=== PATIENT | female | born 1940 | race Hispanic/Latino ===

== ENCOUNTER 2016-06-08 15:38 | Inpatient (IN) | payer MEDICARE, MEDICAID ==
[~2016-06-08] VITALS: Ht 165.1 cm; Wt 127.0 kg
[~2016-06-08 15:38] MED LIST: ACETAMINOPHEN120 MG RECTAL; ACTOS30 MG PO; ALBUTEROL2.5 MG/3 M INH; ALPRAZOLAM0.5 M1 PO; ALUM-MAG HYDRO360 ML PO; AMBIEN5 MG ORAL; ASPIR 8181 MG ORAL; ATORVASTATIN CA20 MG ORAL; BENADRYL25 MG ORAL; CIPROFLOXACIN500 M2 ORAL; CLARITIN10 M2 GT; CLARITIN10 M2 PO; CLOPIDOGREL75 MG PO; CLOTRIMAZOLE AF30 GM TOPIC; CRANBERRY450 M4 PO; D5W 50ML50 M1 IV; D5W 50ML50 ML IV; DEMADEX10 MG INJ; DIPHENHYDRAMINE25 M1 ORAL; DOCUSATE SODIU100 MG ORAL; FERROUS GLUCON324 M1 PO; FERROUS SULFAT325 M1 PO; FLAGYL500 MG ORAL; FLUCONAZOL IV; FLUCONAZOLE100 MG ORAL; FUROSEMIDE20 M1 PO; GABAPENTIN300 MG ORAL; GABAPENTIN300 MG PO; GEMFIBROZIL600 MG PO; GERI-TUSSI100 MG/5 M PO; HEPARIN1000 UNIT/ INJ; HUMALOG KW200 UNIT/1 SQ; HUMALOG100 UNIT/3 SUBQ; HUMALOG100 UNIT/4 SUBQ; IMITREX6 MG/0.5 M SQ; INVANZ1 GM IVPB; IPRAT-ALBUT 0.5-3 ML IH; LACTULOSE20 GM/301 GT; LACTULOSE20 GM/301 ORAL; LACTULOSE20 GM/301 RECTAL; LANTISEPTIC400 GM TOPIC; LANTUS SOL100 UNIT/1 SUBQ; LANTUS5 UNITS SUBQ; LEVEMIR FL100 UNIT/1 SUBQ; LEVEMIR100 UNIT/1 SUBQ; LIORESAL10 MG PO; LIPID EMULSION IV; LIPITOR80 MG PO; LORATADINE10 MG PO; LORAZEPAM1 MG GT; LOSARTAN POTASS25 MG ORAL; MAGNEBIND 4001 EACH PO; MEROPENEM1 GM IVPB; METFORMIN HCL1000 MG PO; METOCLOPRAMIDE10 M2 GT; METOPROLOL TART25 MG ORAL; MIDODRINE HCL2.5 MG ORAL; NAMENDA5 MG GT; NITROFURANTOIN100 M2 ORAL; NITROFURANTOIN100 MG PO; NORCO 10/3251 EA ORAL; NORCO 5-325 TA1 EAC1 ORAL; NOVOLOG100 UNIT/3 SUBQ; NOVOLOG100 UNIT/5; NOVOLOG100 UNITS1 SUBQ; OMEPRAZOLE40 M1 GT; PANTOPRAZOLE SO40 MG ORAL; PIOGLITAZONE30 MG PO; PLAVIX75 MG ORAL; PROBIOTIC1 EAC2 GT; PROTONIX IV40 MG IVP; RANITIDINE HCL150 MG ORAL; REGLAN5 MG ORAL; SALINE 10ML FLU10 ML IVF; SERTRALINE HCL25 MG ORAL; SIMETHICONE80 MG ORAL; SLOW-MAG64 MG PO; STARLIX60 MG ORAL; TRAMADOL HCL50 MG GT; TRAMADOL HCL50 MG ORAL; TYLENOL650 MG/20. ORAL; VANCOMYCIN1.25 GM/25 IVPB; VANCOMYCIN750 MG IVPB; VANCOMYCIN750 MG/150 IVPB; VIBRAMYCIN100 MG ORAL; VITAMIN C500 M1 ORAL; VITAMIN D400 UNI1 PO; XIFAXAN550 MG ORAL; ZOFRAN 4 MG4 MG/2 ML IV; ZOLOFT50 MG PO; [UNRECOGNIZED DRUG - CODE] PO; [UNRECOGNIZED DRUG - OTHER] PO
[2016-06-08 16:10] VITALS: BP 132/65
[2016-06-08 16:49] LABS: ALANINE AMINOTRANSFERASE 21 U/L (3-33); ALBUMIN/GLOBULIN RATIO 0.6 (1.0-2.7); ANION GAP 15 (5-15); ASPARTATE AMINO TRANSFERASE 70 U/L (5-40); CALCIUM 10.4 mg/dL (8.6-10.2); CARBON DIOXIDE 23 mEQ/L (20-30); CHLORIDE 106 mEQ/L (98-107); CREATININE 1.8 mg/dL (0.5-0.9); HEMOLYSIS 6; POTASSIUM 4.9 mEQ/L (3.4-4.9); SODIUM 144 mEQ/L (135-145); TOTAL PROTEIN 7.7 g/dL (6.6-8.7); TROPONIN I < 0.30 ng/mL (<=0.30)
[2016-06-08 16:56] LABS: CKMB < 1.5 ng/mL (< 3.8)
[2016-06-08 17:13] LABS: RED BLOOD COUNT 3.41 M/UL (4.20-5.40); WHITE BLOOD COUNT 6.4 K/UL (4.8-10.8)
[2016-06-08 17:14] LABS: BASOPHILS % (AUTO) 1.1 % (0.0-2.0); EOSINOPHILS % (AUTO) 3.3 % (0.0-3.0); LYMPHOCYTES % (AUTO) 39.4 % (20.0-45.0); MEAN CORPUSCULAR HEMOGLOBIN 29.5 PG (27.0-31.0); MEAN CORPUSCULAR HGB CONC 31.2 G/DL (32.0-36.0); MEAN CORPUSCULAR VOLUME 95 FL (80-99); MEAN PLATELET VOLUME 7.3 FL (6.5-10.1); MONOCYTES % (AUTO) 7.6 % (1.0-10.0); NEUTROPHILS % (AUTO) 48.6 % (45.0-75.0); PLATELET COUNT 150 K/UL (150-450); RED CELL DISTRIBUTION WIDTH 13.9 % (11.6-14.8)
[2016-06-08 17:15] VITALS: BP 127/71
[2016-06-08 17:17] LABS: APPEARANCE,URINE CLOUDY; KETONES,URINE NEGATIVE (NEGATIVE); LEUKOCYTE ESTERASE ,URINE 3+ (NEGATIVE); NITRITE,URINE NEGATIVE (NEGATIVE); PH,URINE 7 (4.5-8.0); PROTEIN,URINE 1+ (NEGATIVE); UROBILINOGEN,URINE NORMAL MG/DL (0.0-1.0)
[2016-06-08 17:29] LABS: AMORPHOUS SEDIMENT,UR MANY /LPF; BACTERIA,URINE MANY /HPF; RBC,URINE 15-20 /HPF (0 - 2); SQUAMOUS EPITHELIAL CELL,UR FEW /LPF (NONE/OCC); WBC,URINE 30-40 /HPF (0 - 2)
--- NOTE | 2016-06-08 17:29 | Emergency Room Report ---
History of Present Illness General Chief Complaint: Generalized Weakness Source: Patient Present Illness HPI Patient is a 76-year-old female brought in by ambulance after increased generalized weakness and altered mental status. Patient prior history of diabetes. Patient was noted the patient is allergic to penicillin. Patient had gradual onset of symptoms. The patient was noted to be somewhat responsive. Patient was reportedly oriented x2 by EMS. Patient is usually more alert and was noted to be increased confused by nursing staff Allergies: Coded Allergies: PENICILLINS (Unverified Allergy, Unknown, 03/22/15) Uncoded Allergies: PENACILLIN (Allergy, Unknown, 06/08/16) Patient History Past Medical History: see triage record Reviewed Nursing Documentation: PMH: Agreed, PSxH: Agreed Nursing Documentation-PMH Hx Cardiac Problems: Yes Hx Hypertension: Yes Hx Pacemaker: No Hx Asthma: No Hx COPD: Yes Hx Diabetes: Yes Hx Cancer: No Hx Gastrointestinal Problems: No - hepatic failure, HX g-tube placement Hx Dialysis: No History Of Psychiatric Problem: Yes Hx Neurological Problems: Yes Hx Cerebrovascular Accident: No - gerd hyperlipid Hx Seizures: No Review of Systems All Other Systems: negative except mentioned in HPI Physical Exam Vital Signs Date Time Temp Pulse Resp B/P Pulse Ox O2 Delivery O2 Flow Rate FiO2 06/08/16 15:18 98.4 75 17 133/87 99 Room Air Sp02 EP Interpretation: reviewed, normal General Appearance: alert, mild distress, obese, Chronically Ill Head: atraumatic ENT: hearing grossly normal, normal voice, uvula midline, dry mucus membranes, other - dry oral mucosa Neck: normal inspection, full range of motion, supple, no bony tend Respiratory: normal inspection, normal breath sounds, no respiratory distress, no retraction, no wheezing, crackles Cardiovascular #1: regular rate, rhythm, no edema Gastrointestinal: normal inspection, normal bowel sounds, soft, no guarding, no hernia Genitourinary: no CVA tenderness Musculoskeletal: normal inspection, back normal, normal range of motion Neurologic: normal inspection, alert, oriented x3, responsive, breast surgeon III-XII nml as tested, speech normal Psychiatric: normal inspection, judgement/insight normal, mood/affect normal Skin: normal inspection, normal color, no rash Medical Decision Making Diagnostic Impression: Primary Impression: Diabetes mellitus Additional Impressions: Altered level of consciousness RAMYA (acute kidney injury) Dehydration UTI (urinary tract infection) ER Course Patient presented for altered mental status.Differential diagnosis included but was not limited to ischemic stroke, subarachnoid hemorrhage, hypoglycemia, spinal cord injury, neurodegenerative disorder, urinary tract infection, hypoxemia.Because of complexity of patient's case laboratory testing and imaging studies were ordered. The patient was noted to have some evidence of dehydration. Patient was given IV fluids . Laboratory studies were notable for elevated BUN/creatinine as well as some hypercalcemia consistent with dehydration. The patient was discussed with Dr. Tee for inpatient management. Laboratory Tests Test 06/08/16 16:04 06/08/16 16:52 White Blood Count 6.4 K/UL (4.8-10.8) Red Blood Count 3.41 M/UL (4.20-5.40) L Hemoglobin 10.1 G/DL (12.0-16.0) L Hematocrit 32.2 % (37.0-47.0) L Mean Corpuscular Volume 95 FL (80-99) Mean Corpuscular Hemoglobin 29.5 PG (27.0-31.0) Mean Corpuscular Hemoglobin Concent 31.2 G/DL (32.0-36.0) L Red Cell Distribution Width 13.9 % (11.6-14.8) Platelet Count 150 K/UL (150-450) Mean Platelet Volume 7.3 FL (6.5-10.1) Neutrophils (%) (Auto) 48.6 % (45.0-75.0) Lymphocytes (%) (Auto) 39.4 % (20.0-45.0) Monocytes (%) (Auto) 7.6 % (1.0-10.0) Eosinophils (%) (Auto) 3.3 % (0.0-3.0) H Basophils (%) (Auto) 1.1 % (0.0-2.0) Sodium Level 144 mEQ/L (135-145) Potassium Level 4.9 mEQ/L (3.4-4.9) Chloride Level 106 mEQ/L (98-107) Carbon Dioxide Level 23 mEQ/L (20-30) Anion Gap 15 (5-15) Blood Urea Nitrogen 52 mg/dL (7-23) H Creatinine 1.8 mg/dL (0.5-0.9) H Estimate Glomerular Filtration Rate mL/min (>60) Glucose Level 123 mg/dL (74-106) H Lactic Acid Level 1.20 mmol/L (0.66-2.22) Calcium Level 10.4 mg/dL (8.6-10.2) H Total Bilirubin 0.7 mg/dL (0.0-1.2) Aspartate Amino Transferase (AST) 70 U/L (5-40) H Alanine Aminotransferase (ALT) 21 U/L (3-33) Alkaline Phosphatase 144 U/L (35-104) H Total Creatine Kinase 27 U/L (26-140) Creatine Kinase MB < 1.5 ng/mL (< 3.8) Creatine Kinase MB Relative Index Troponin I < 0.30 ng/mL (<=0.30) Total Protein 7.7 g/dL (6.6-8.7) Albumin 3.0 g/dL (3.5-5.2) L Globulin 4.7 g/dL Albumin/Globulin Ratio 0.6 (1.0-2.7) L Urine Color Pale yellow Urine Appearance Cloudy Urine pH 7 (4.5-8.0) Urine Specific [place] 1.010 (1.005-1.035) Urine Protein 1+ (NEGATIVE) H Urine Glucose (UA) Negative (NEGATIVE) Urine Ketones Negative (NEGATIVE) Urine Occult Blood 4+ (NEGATIVE) H Urine Nitrite Negative (NEGATIVE) Urine Bilirubin Negative (NEGATIVE) Urine Urobilinogen Normal MG/DL (0.0-1.0) Urine Leukocyte Esterase 3+ (NEGATIVE) H Urine RBC 15-20 /HPF (0 - 2) H Urine WBC 30-40 /HPF (0 - 2) H Urine Squamous Epithelial Cells Few /LPF (NONE/OCC) Urine Amorphous Sediment Many /LPF (NONE) H Urine Bacteria Many /HPF (NONE) H EKG Diagnostic Results Rate: normal Rhythm: NSR - 72 ST Segments: no acute changes Rhythm Strip Diag. Results EP Interpretation: yes Rhythm: NSR, no PVC's, no ectopy Chest X-Ray Diagnostic Results EP Interpretation: Yes Findings: no consolidation, no effusion, no pneumothorax, no acute cardiopulmonary disease Number of Views: 1 Last Vital Signs Date Time Temp Pulse Resp B/P Pulse Ox O2 Delivery O2 Flow Rate FiO2 06/08/16 17:15 97.6 65 20 127/71 100 Room Air Status: improved Disposition: ADMITTED INPATIENT Condition: Serious Referrals: NOT CHOSEN IPA/,REFERRING (PCP) Anish García Jun 08, 2016 17:29
[2016-06-08 18:13] VITALS: BP 139/61
[2016-06-08] MEDS ORDERED: Nitroglycerin Subl 0.4mg tab (Bottle Of 25) SL PRN (20:45)
[2016-06-08] MEDS ORDERED: Morphine Sulfate 2mg/ml Inj IVP PRN (20:45)
[2016-06-08] MEDS ORDERED: DuoNeb 0.5-3(2.5)mg/3ml neb HHN PRN (20:45)
[2016-06-08] MEDS ORDERED: Miralax 17gm pkt ORAL PRN (20:45)
[2016-06-08] MEDS: NovoLOG Insulin Flexpen SUBQ SCH (21:00)
[2016-06-08] MEDS ORDERED: Vancomycin 1250mg in D5W 275ml IVPB SCH (22:30)
[2016-06-08] MEDS: Metoprolol 25mg tab ORAL SCH (22:40)
[2016-06-08] MEDS: Aztreonam Inj 1 GM in D5W 55 ML IVPB SCH (22:40)
[2016-06-08] MEDS: Heparin 5000 units/ml inj SUBQ SCH (22:41)
[2016-06-09] VITALS: BP 162/80
[2016-06-09] MEDS ORDERED: Vancomycin 1 GM in D5W 275 ML IV SCH (00:30)
[2016-06-09] MEDS: NovoLOG Insulin Flexpen SUBQ SCH ×4 (06:30→21:39)
[2016-06-09] MEDS: Aztreonam Inj 1 GM in D5W 55 ML IVPB SCH (06:34)
[2016-06-09 07:46] LABS: BASOPHILS % (AUTO) 0.5 % (0.0-2.0); EOSINOPHILS % (AUTO) 3.9 % (0.0-3.0); LYMPHOCYTES % (AUTO) 20.6 % (20.0-45.0); MEAN CORPUSCULAR HGB CONC 31.6 G/DL (32.0-36.0); MEAN CORPUSCULAR VOLUME 95 FL (80-99); MEAN PLATELET VOLUME 6.8 FL (6.5-10.1); MONOCYTES % (AUTO) 9.7 % (1.0-10.0); NEUTROPHILS % (AUTO) 65.3 % (45.0-75.0); PLATELET COUNT 114 K/UL (150-450); RED BLOOD COUNT 3.22 M/UL (4.20-5.40); RED CELL DISTRIBUTION WIDTH 13.8 % (11.6-14.8); WHITE BLOOD COUNT 6.5 K/UL (4.8-10.8)
[2016-06-09 07:51] LABS: ALANINE AMINOTRANSFERASE 18 U/L (3-33); ALBUMIN/GLOBULIN RATIO 0.7 (1.0-2.7); ANION GAP 15 (5-15); ASPARTATE AMINO TRANSFERASE 58 U/L (5-40); CALCIUM 10.3 mg/dL (8.6-10.2); CARBON DIOXIDE 20 mEQ/L (20-30); CHLORIDE 110 mEQ/L (98-107); CREATININE 1.5 mg/dL (0.5-0.9); HEMOLYSIS 3; POTASSIUM 4.5 mEQ/L (3.4-4.9); SODIUM 145 mEQ/L (135-145); TOTAL PROTEIN 7.2 g/dL (6.6-8.7)
[2016-06-09 08:11] VITALS: BP 151/74
[2016-06-09] MEDS: Heparin 5000 units/ml inj SUBQ SCH ×2 (08:33→20:44)
[2016-06-09] MEDS: Metoprolol 25mg tab ORAL SCH (08:33)
--- NOTE | 2016-06-09 09:22 | History & Physical ---
History and Physical History & Physicial Dictated for Int Med-Dr Tee no. [id number]. KATHARINA POND Jun 09, 2016 09:22
--- NOTE | 2016-06-09 09:51 | Wound Care Consultation ---
Wound Assessment Wound Assessment #1: Wound Number: #1 Wound Present on Admission: Yes New Wound: No Status Change of Wound: No Wound Location Body Site Modif: mid Wound Location Body Site: sacral Wound Type: pressure ulcer Callie Test: Does not Callie Pressure Ulcer Stage: III Wound Thickness: Full Thickness Wound Length: 1.0 Wound Width: 0.5 Wound Depth: 0.3 Percent of Wound [place]/Red: 100 Wound Drainage Description: Serosanguineous Wound Drainage Amount: Scant Wound Drainage Odor: None/Absent Tissue Surrounding Wound: Erythemic Wound General Appearance: Reddened, Well Approximated Wound Assessment #2: Wound Number: #2 Wound Present on Admission: Yes New Wound: No Status Change of Wound: No Wound Location Body Site Modif: right Wound Location Body Site: buttocks Wound Type: pressure ulcer Callie Test: Does not Callie Pressure Ulcer Stage: deep tissue injury - DTI REVEALING SELF STAGE III. Wound Thickness: Full Thickness Wound Length: 5.0 Wound Width: 5.0 Wound Depth: 0.3 Percent of Wound [place]/Red: 50 Percent of Wound Purple/Maroon: 50 Wound Drainage Description: Serosanguineous Wound Drainage Amount: Scant Wound Drainage Odor: None/Absent Tissue Surrounding Wound: Erythemic Wound General Appearance: Reddened Wound Assessment #3: Wound Number: #3 Wound Present on Admission: Yes New Wound: No Status Change of Wound: No Wound Location Body Site Modif: left, right Wound Location Body Site: breast fold Wound Type: other - INTERTRIGO Callie Test: Does not Callie Percent of Wound [place]/Red: 100 Wound Drainage Amount: None Wound Drainage Odor: None/Absent Tissue Surrounding Wound: Erythemic Wound General Appearance: Reddened, Open to air Wound Assessment #4: Wound Number: #4 Wound Present on Admission: Yes New Wound: No Status Change of Wound: No Wound Location Body Site: abdominal fold Wound Type: other - INTERTRIGO ACROSS ENTIRE ABDOMINAL FOLD. Callie Test: Does not Callie Wound Thickness: Partial Thickness Percent of Wound [place]/Red: 100 Wound Drainage Description: Serous, Serosanguineous Wound Drainage Amount: Scant Wound Drainage Odor: None/Absent Tissue Surrounding Wound: Macerated Wound General Appearance: Reddened, Open to air Wound Comment #1 Mid abdominal scar tissue. #2 Mid sacral pressure ulcer stage III. #3 Right buttocks DTI revealing stage III. #4 Left and right breast fold intertrigo. #5 Abdominal fold intertrigo. #6 scattered discolorations to upper extremities. Recommendation -Apply low air loss overlay mattress for wound and skin management. -Local wound care as ordered. -Optimize nutrition. -Keep clean and dry. -Heel protectors. -Turn and reposition. -Offload heels and feet. -Avoid shear and friction to affected sites. -Asses and notify MD if any changes of condition are noted. MILLA RUTLEDGE Jun 09, 2016 09:51
--- NOTE | 2016-06-09 10:01 | Cardiology Report ---
APPROVED REPORT EKG Measurement Heart [id number] Normal sinus rhythm Low voltage QRS Cannot rule out Anterior infarct, age undetermined Abnormal ECG
--- NOTE | 2016-06-09 11:07 | Diagnostic Imaging Report ---
Indication: Dyspnea Comparison: 04/11/16 A single view chest radiograph was obtained. Findings: No definite infiltrate or pulmonary vascular congestion identified. The heart is enlarged. The aorta is mildly enlarged consistent with atherosclerotic vascular disease. The bones are osteopenic. Impression: No acute disease
[2016-06-09 11:24] VITALS: BP 137/67
[2016-06-09] MEDS: Nystatin Powder 100,000 units/gm 15gm TOPIC SCH ×2 (13:24→17:12)
[2016-06-09] MEDS ORDERED: Aztreonam Inj 1 GM in D5W 55 ML IVPB SCH (14:00)
--- NOTE | 2016-06-09 14:22 | Consultation ---
Consult Note Consult Note ID CONSULT: Paulina# [id number] Assessment/Plan ASSESSMENT: 76 y/o female with: // Probable recurrent complicated UTI - UCx pending - US: pending - CT A/P 09/2015: 9 x 4 mm left proximal ureteral stone with mild left hydronephrosis. Tiny nonobstructive stone in the mid pole the left kidney. Bladder wall thickening, suspected cystitis - h/o ESBL(+) E.coli, P.mirabilis, K.oxytoca, C.albicans // Multiple superficial decubiti POA, not grossly infected // h/o CONS contaminant bacteremia - surveillance BCx pending // Afebrile without leukocytosis // Acute encephalopathy, m/l UTI // ARF on CKD3 - improved // Hypercalcemia // DM2 // Obesity // PCN allergy - previously tolerated meropenem // Full Code PLAN: - continue empiric IV vancomycin d# 1, broaden levaquin, aztreonam to meropenem d# 1 based on previous cultures - f/u cultures - f/u renal US - monitor CBC, temperatures - monitor BMP Thanks! Will follow KAYLA LOUIS Jun 09, 2016 14:22
--- NOTE | 2016-06-09 15:36 | Consultation ---
History of Present Illness General Date patient seen: Jun 09, 2016 Chief Complaint: Generalized Weakness Referring physician: DR. Guthrie Present Illness HPI 76-year-old female skilled nursing resident, with Dementia, DM brought in by ambulance with CC of increased generalized weakness and altered mental status. Pt was diagnosed to have urosepsis and increased Blood Sugar. Therefore she was admitted for further management. Allergies: Coded Allergies: PENICILLINS (Unverified Allergy, Unknown, 03/22/15) Medication History Scheduled Ascorbic Acid* (Vitamin C*), Unknown Dose ORAL DAILY, (Reported) Aspirin* (Aspir 81*), 81 MG ORAL DAILY, (Reported) Atorvastatin Calcium* (Atorvastatin Calcium*), 20 MG ORAL BEDTIME, (Reported) Clopidogrel Bisulfate* (Plavix*), 75 MG ORAL DAILY, (Reported) Cranberry Fruit Concentrate (Cranberry), 450 MG PO DAILY, (Reported) Docusate Sodium* (Docusate Sodium*), 100 MG ORAL BID, (Reported) Ferrous Gluconate (Ferrous Gluconate), 324 MG PO DAILY, (Reported) Ferrous Sulfate (Ferrous Sulfate), 325 MG PO DAILY, (Reported) Furosemide* (Lasix*), 20 MG PO DAILY, (Reported) Gabapentin* (Gabapentin*), 300 MG ORAL THREE TIMES A DAY, (Reported) Insulin Aspart (Novolog), BEFORE MEALS AND HS, (Reported) Insulin Detemir (Levemir), 0 SUBQ BEDTIME, (Reported) Insulin Glargine (Lantus), 55 UNIT SUBQ BID, (Reported) Lactulose (Lactulose*), 30 ML ORAL THREE TIMES A DAY, (Reported) Losartan Potassium* (Losartan Potassium*), 12.5 MG ORAL DAILY, (Reported) Magnesium Chloride (Slow-Mag), 1 TAB PO DAILY, (Reported) Metoclopramide Hcl* (Reglan*), 5 MG ORAL BID, (Reported) Metoprolol Tartrate* (Metoprolol Tartrate*), 12.5 MG ORAL EVERY 12 HOURS, ( Reported) Nateglinide* (Starlix*), 60 MG ORAL THREE TIMES A DAY, (Reported) Nateglinide* (Starlix*), 90 MG ORAL BEFORE MEALS, (Reported) Nitrofurantoin Monohyd/M-Cryst* (Macrobid 100 Mg*), 100 MG ORAL EVERY 12 HOURS Nitrofurantoin Monohyd/M-Cryst* (Macrobid 100 Mg*), 100 MG ORAL BID Ranitidine Hcl* (Zantac*), 150 MG ORAL DAILY, (Reported) Sertraline Hcl* (Sertraline Hcl*), 50 MG ORAL DAILY, (Reported) Sertraline Hcl* (Sertraline Hcl*), 25 MG ORAL DAILY, (Reported) [mulitvital-m], 1 TAB PO DAILY, (Reported) Scheduled PRN Acetaminophen (Acetaminophen), 650 MG ORAL Q6H PRN for Prn Headache/Temp > 101, (Reported) Diphenhydramine Hcl* (Benadryl*), 25 MG ORAL EVERY 8 HOURS PRN for Itching, ( Reported) Hydrocodone/Acetaminophen (Hydrocodon-Acetaminophn 10-325), 1 TAB ORAL Q6H PRN for For Pain, (Reported) Insulin Lispro (Humalog Kwikpen), UNIT SQ AC+HS PRN for Hyperglycemia, (Reported ) Ondansetron* (Zofran*), 4 MG IV Q6H PRN for Nausea & Vomiting, (Reported) Simethicone* (Simethicone*), 160 MG ORAL Q8H PRN for Abdominal cramps, (Reported ) Zolpidem Tartrate* (Ambien*), 5 MG ORAL BEDTIME PRN for Insomnia, (Reported) Miscellaneous Medications Calcium Carbonate/Mag Carb/Fa (Magnebind 400 Rx Tablet), 1 EACH PO, (Reported) Patient History Healthcare decision maker pt alert and oriented Resuscitation status Full Code Advanced Directive on File Past Medical/Surgical History Past Medical/Surgical History: (1) Cardiomegaly (2) Obesity (3) Sleep apnea (4) Diabetes mellitus Review of Systems All Other Systems: negative except mentioned in HPI Physical Exam General Appearance: WD/WN Lines, tubes and drains: peripheral HEENT: normocephalic, atraumatic Neck: non-tender, normal alignment Respiratory/Chest: chest wall non-tender, lungs clear Breasts: no masses Cardiovascular/Chest: normal peripheral pulses Abdomen: normal bowel sounds, non tender, soft Genitourinary/Rectal: normal genital exam Extremities: normal range of motion Skin Exam: normal pigmentation Neurologic: graphite pan drier tender II-XII grossly normal Last 24 Hour Vital Signs Date Time Temp Pulse Resp B/P Pulse Ox O2 Delivery O2 Flow Rate FiO2 06/09/16 12:00 68 06/09/16 11:24 97.6 64 18 137/67 100 Room Air 06/09/16 08:33 75 151/74 06/09/16 08:11 97.7 75 18 151/74 100 Room Air 06/09/16 08:00 78 06/09/16 07:20 76 18 Room Air 21 06/09/16 04:00 72 06/09/16 00:00 66 06/09/16 00:00 97.7 64 16 162/80 64 Room Air 06/08/16 22:40 63 144/66 06/08/16 20:45 63 26 144/66 100 Room Air 06/08/16 18:13 69 28 139/61 99 Room Air 06/08/16 17:15 97.6 65 20 127/71 100 Room Air 06/08/16 16:10 74 27 132/65 100 Room Air Intake and Output 06/08/16 06/09/16 19:00 07:00 Intake Total 1455 ml 1075.000 ml Output Total 50 ml 700 ml Balance 1405 ml 375.000 ml Intake Oral 355 ml 240 ml IV Total 1100 ml 835.000 ml Output Urine Total 50 ml 700 ml # Bowel Movements 1 Laboratory Tests Test 06/08/16 16:04 06/08/16 16:52 06/08/16 18:30 06/09/16 07:05 White Blood Count 6.4 K/UL (4.8-10.8) 6.5 K/UL (4.8-10.8) Red Blood Count 3.41 M/UL (4.20-5.40) L 3.22 M/UL (4.20-5.40) L Hemoglobin 10.1 G/DL (12.0-16.0) L 9.6 G/DL (12.0-16.0) L Hematocrit 32.2 % (37.0-47.0) L 30.5 % (37.0-47.0) L Mean Corpuscular Volume 95 FL (80-99) 95 FL (80-99) Mean Corpuscular Hemoglobin 29.5 PG (27.0-31.0) 30.0 PG (27.0-31.0) Mean Corpuscular Hemoglobin Concent 31.2 G/DL (32.0-36.0) L 31.6 G/DL (32.0-36.0) L Red Cell Distribution Width 13.9 % (11.6-14.8) 13.8 % (11.6-14.8) Platelet Count 150 K/UL (150-450) 114 K/UL (150-450) L Mean Platelet Volume 7.3 FL (6.5-10.1) 6.8 FL (6.5-10.1) Neutrophils (%) (Auto) 48.6 % (45.0-75.0) 65.3 % (45.0-75.0) Lymphocytes (%) (Auto) 39.4 % (20.0-45.0) 20.6 % (20.0-45.0) Monocytes (%) (Auto) 7.6 % (1.0-10.0) 9.7 % (1.0-10.0) Eosinophils (%) (Auto) 3.3 % (0.0-3.0) H 3.9 % (0.0-3.0) H Basophils (%) (Auto) 1.1 % (0.0-2.0) 0.5 % (0.0-2.0) Sodium Level 144 mEQ/L (135-145) 145 mEQ/L (135-145) Potassium Level 4.9 mEQ/L (3.4-4.9) 4.5 mEQ/L (3.4-4.9) Chloride Level 106 mEQ/L (98-107) 110 mEQ/L (98-107) H Carbon Dioxide Level 23 mEQ/L (20-30) 20 mEQ/L (20-30) Anion Gap 15 (5-15) 15 (5-15) Blood Urea Nitrogen 52 mg/dL (7-23) H 45 mg/dL (7-23) H Creatinine 1.8 mg/dL (0.5-0.9) H 1.5 mg/dL (0.5-0.9) H Estimat Glomerular Filtration Rate mL/min (>60) mL/min (>60) Glucose Level 123 mg/dL (74-106) H 115 mg/dL (74-106) H Lactic Acid Level 1.20 mmol/L (0.66-2.22) Calcium Level 10.4 mg/dL (8.6-10.2) H 10.3 mg/dL (8.6-10.2) H Total Bilirubin 0.7 mg/dL (0.0-1.2) 0.8 mg/dL (0.0-1.2) Aspartate Amino Transf (AST/SGOT) 70 U/L (5-40) H 58 U/L (5-40) H Alanine Aminotransferase (ALT/SGPT) 21 U/L (3-33) 18 U/L (3-33) Alkaline Phosphatase 144 U/L (35-104) H 135 U/L (35-104) H Total Creatine Kinase 27 U/L (26-140) Creatine Kinase MB < 1.5 ng/mL (< 3.8) Creatine Kinase MB Relative Index Troponin I < 0.30 ng/mL (<=0.30) Total Protein 7.7 g/dL (6.6-8.7) 7.2 g/dL (6.6-8.7) Albumin 3.0 g/dL (3.5-5.2) L 3.0 g/dL (3.5-5.2) L Globulin 4.7 g/dL 4.2 g/dL Albumin/Globulin Ratio 0.6 (1.0-2.7) L 0.7 (1.0-2.7) L Urine Color Pale yellow Urine Appearance Cloudy Urine pH 7 (4.5-8.0) Urine Specific [place] 1.010 (1.005-1.035) Urine Protein 1+ (NEGATIVE) H Urine Glucose (UA) Negative (NEGATIVE) Urine Ketones Negative (NEGATIVE) Urine Occult Blood 4+ (NEGATIVE) H Urine Nitrite Negative (NEGATIVE) Urine Bilirubin Negative (NEGATIVE) Urine Urobilinogen Normal MG/DL (0.0-1.0) Urine Leukocyte Esterase 3+ (NEGATIVE) H Urine RBC 15-20 /HPF (0 - 2) H Urine WBC 30-40 /HPF (0 - 2) H Urine Squamous Epithelial Cells Few /LPF (NONE/OCC) Urine Amorphous Sediment Many /LPF (NONE) H Urine Bacteria Many /HPF (NONE) H Urine Eosinophils Negative Urine Osmolality Pending Urine Random Sodium 105 mmol/L Urine Random Chloride 101 mmol/L Urine Potassium Timed 29 mmol/L Plasma/Serum Osmolality Pending Height (Feet): 5 Height (Inches): 4.00 Weight (Pounds): 280 Medications Current Medications Medications (Trade) Dose Ordered Sig/Pavel Route PRN Reason Start Time Stop Time Status Last Admin Dose Admin Acetaminophen (Tylenol) 650 mg Q4H PRN ORAL fever 06/08/16 20:45 07/08/16 20:44 Albuterol/ Ipratropium (DuoNeb 0.5-3(2.5)mg/3ml) 3 ml EVERY 4 HOURS PRN HHN Shortness of Breath 06/08/16 20:45 06/13/16 20:44 Dextrose (Dextrose 50%) STAT PRN IV Hypoglycemia 06/08/16 20:45 07/08/16 20:44 Heparin Sodium (Porcine) (Heparin 5000 units/ml) 5,000 units EVERY 12 HOURS SUBQ 06/08/16 21:00 07/08/16 20:59 06/08/16 22:41 Insulin Aspart (NovoLOG) BEFORE MEALS AND HS SUBQ 06/08/16 21:00 07/08/16 20:59 06/09/16 11:56 Meropenem/Sodium Chloride (Merrem/Sodium Chloride) 110 ml @ 220 mls/hr Q12HR IVPB 06/09/16 18:00 06/14/16 17:59 Metoprolol Tartrate 12.5 mg 12.5 mg EVERY 12 HOURS ORAL 06/08/16 21:00 07/08/16 20:59 06/09/16 08:33 Morphine Sulfate (Morphine Sulfate) 2 mg EVERY 4 HOURS PRN IVP Moderate Pain (Pain Scale 4-6) 06/08/16 20:45 06/15/16 20:44 Nitroglycerin (Ntg) 0.4 mg Q5MIN PRN SL Prn Chest Pain 06/08/16 20:45 07/08/16 20:44 Nystatin 1 applic 1 applic THREE TIMES A DAY TOPIC 06/09/16 13:00 07/09/16 12:59 06/09/16 13:24 Ondansetron HCl (Zofran) 4 mg Q6H PRN IVP Nausea & Vomiting 06/08/16 20:45 07/08/16 20:44 Polyethylene Glycol (Miralax) 17 gm DAILYPRN PRN ORAL Constipation 06/08/16 20:45 07/08/16 20:44 Sodium Chloride (Sodium Chloride 1000ml bag) 1,000 ml @ 75 mls/hr [id number] IVLG 06/09/16 00:21 07/09/16 00:20 06/09/16 13:26 Temazepam (Restoril) 15 mg HSPRN PRN ORAL Insomnia 06/08/16 20:45 06/15/16 20:44 Vancomycin HCl (Vanco rx to dose) 1 ea DAILY PRN MISC Per rx protocol 06/08/16 22:15 07/08/16 22:14 Vancomycin HCl 1 gm/Dextrose 275 ml @ 183.708 mls/hr Q24H IVPB 06/10/16 00:00 06/15/16 00:00 Assessment/Plan Problem List: (1) Severe sepsis ICD Codes: A41.9 - Sepsis, unspecified organism; R65.20 - Severe sepsis without septic shock SNOMED: 38099390 (2) RAMYA (acute kidney injury) ICD Codes: N17.9 - Acute kidney failure, unspecified SNOMED: 56001988 (3) Diabetes mellitus ICD Codes: E11.9 - Type 2 diabetes mellitus without complications SNOMED: 03370624 (4) Obesity ICD Codes: E66.9 - Obesity, unspecified SNOMED: 213108160 (5) Cirrhosis ICD Codes: K74.60 - Unspecified cirrhosis of liver SNOMED: 55417513 (6) Uncontrolled diabetes mellitus ICD Codes: E11.65 - Type 2 diabetes mellitus with hyperglycemia SNOMED: 640329834 Assessment/Plan IV fluids IV antibiotics sliding scale insulin coverage dvt prophylaxis DIONI TRIANA Jun 09, 2016 15:36
[2016-06-09 16:00] VITALS: BP 174/77
[2016-06-09] MEDS ORDERED: Tubing IV Secondary IV ONE (16:07)
--- NOTE | 2016-06-09 16:38 | History and Physical Report ---
DATE OF ADMISSION: 06/08/2016 CHIEF COMPLAINT: The patient is a 76-year-old white female, presents with chief complaint of altered mental status. HISTORY OF PRESENT ILLNESS: The patient is a resident of [facility]. According to staff at [facility], the patient became to be more confused over the last 24 hours. The patient presented to [facility]. The patient was found to have urinary tract infection. The patient was admitted for altered mental status and urinary tract infection. PAST MEDICAL HISTORY: Significant for: 1. Diabetes type 2. 2. Hypertension. 3. Obstructive sleep apnea. 4. Gastroesophageal reflux. 5. Hypercholesterolemia. 6. Cardiomyopathy. 7. Diabetic nephropathy. 8. Liver cirrhosis. 9. Fatty liver. PAST SURGICAL HISTORY: Significant for PEG placement and subsequent removal. CURRENT MEDICATIONS: 1. Aspirin 81 mg one tablet p.o. daily. 2. Atorvastatin 20 mg one tablet p.o. at bedtime. 3. Clopidogrel 75 mg one tablet p.o. daily. 4. Cranberry tablets 450 milligram p.o. daily. 5. Iron sulfate 325 mg one tablet p.o. daily. 6. Gabapentin 300 mg one tablet p.o. three times daily. 7. [place] 10/325 mg one p.o. every four hours as needed. 8. Aspart insulin sliding scale. 9. Levemir 25 units subcutaneously at bedtime. 10. Lactulose 30 mL p.o. three times daily. 11. Lasix 20 mg one tablet p.o. daily. 12. Losartan 25 mg one tablet p.o. daily. 13. Magnesium chloride 64 milligram by p.o. daily. 14. Metoprolol 25 mg one tablet p.o. twice daily. 15. Multivitamin tablet p.o. daily. 16. Nateglinide 90 mg one tablet before meals. 17. Zantac 150 mg one tablet p.o. daily. 18. Zoloft 25 mg one tablet p.o. daily. 19. Simethicone 80 mg one tablet p.o. q.8 hours. 20. Ambien 5 mg one tablet p.o. at bedtime as needed insomnia. ALLERGIES: Penicillin. SOCIAL HISTORY: The patient resident of [facility]. The patient is . The patient denies tobacco or alcohol use. REVIEW OF SYSTEMS: Constitutional: The patient denies weight loss or weight gain. The patient denies fevers and chills. HEENT: The patient denies ear or throat pain. Cardiovascular: The patient denies palpitations or chest pain. Chest: The patient denies wheeze or shortness of breath. Abdominal: The patient denies nausea, vomiting, diarrhea, or constipation. Genitourinary: The patient denies dysuria or increased frequency of urination. Neuromuscular: The patient denies seizures or generalized weakness. PHYSICAL EXAMINATION: VITAL SIGNS: Temperature 97.7, respirations 16, pulse 64, blood pressure 162/80. GENERAL: The patient well-developed and well-nourished obese white female, in no apparent distress. HEENT: Eyes are pupils are equal and responsive to light and accommodation. Extraocular movements are intact. NECK: Supple without lymphadenopathy. CHEST: Lungs are clear to auscultation bilaterally without wheezes or rales. CARDIOVASCULAR: Regular rate. S1 and S2 are normal without murmurs, rubs, or gallops. ABDOMEN: Soft, nontender, and nondistended. Positive bowel sounds. No evidence of hepatosplenomegaly. Currently, no rebound or guarding. EXTREMITIES: Negative for clubbing, cyanosis, or edema. RECTAL: Refused. GENITALIA: Refused. NEUROLOGIC: Cranial nerves II through XII are grossly intact without focal deficits. Motor strength is 5/5 bilaterally. Deep tendon reflexes 2+ plantar. LABORATORY STUDIES: WBC 6.4, hemoglobin 10.1, hematocrit 32.2, and platelets 150,000. Sodium 144, potassium 4.9, chloride 106, CO2 of 23, BUN 52, creatinine 1.8, glucose 123. Troponin less than 0.3. Urinalysis revealed 4+ occult blood, 3+ leukocyte esterase, and 30 to 40 WBC. ASSESSMENT: This is a 76-year-old white female. 1. Altered mental status. 2. Urinary tract infection. 3. Diabetes type 2. 4. Hypertension. 5. Obstructive sleep apnea. 6. Gastroesophageal reflux disease. 7. Hypercholesterolemia. 8. Cardiomyopathy. 9. Diabetic nephropathy. 10. Diabetic neuropathy. 11. Liver cirrhosis. 12. Fatty liver. 13. Congestive heart failure. TREATMENT: 1. Altered mental status this may be secondary to urinary tract infection. 2. Urinary tract infection. Urine culture is pending. The patient has been started empirically on Levaquin, vancomycin, and aztreonam. 3. Diabetes type 2. The patient has been started on a NovoLog sliding scale. 4. Hypertension. Continue metoprolol and losartan as above. 5. Obstructive sleep apnea. 6. Congestive heart failure. is pending. 7. Gastroesophageal reflux disease. Continue Zantac as above. 8. Hypercholesterolemia. Continue atorvastatin as above. 9. History of cardiomyopathy. 10. History of diabetic neuropathy. 11. Liver cirrhosis. 12. Fatty liver. Jed Guthrie M.D. DR: Ely JOB#: [id number] CC:
[2016-06-09] MEDS ORDERED: Meropenem 1 GM in NS 110 ML IVPB SCH (18:00)
--- NOTE | 2016-06-09 20:18 | Consultation ---
DATE OF CONSULTATION: 06/09/2016 INFECTIOUS DISEASE CONSULTATION: REQUESTING PHYSICIAN: Rl Tee M.D. REASON FOR CONSULTATION: Recurrent complicated UTI. HISTORY OF PRESENT ILLNESS: This is a 76-year-old female with a history of recurrent complicated UTIs, admitted on 06/08/2016 with generalized weakness and altered mental status. Urinalysis suggests probable recurrent UTI. Urine culture is pending. Chest x-ray shows no acute findings. She is afebrile without leukocytosis and has been started on empiric IV vancomycin, Levaquin, and aztreonam. ID now consulted to assist in management. PAST MEDICAL HISTORY: 1. Diabetes. 2. Recurrent complicated UTIs with history of stones and growth of ESBL cause of E. coli, Proteus mirabilis, Klebsiella oxytoca, and Colleen albicans. 3. Kidney stones. 4. Cirrhosis. 5. Gallstones. 6. Fatty liver disease. 7. GERD. 8. Osteoarthritis. 9. Hypertension. 10. Hyperlipidemia. 11. Hiatal hernia. 12. Vertebral compression fractures. PAST SURGICAL HISTORY: 1. Total knee replacement. 2. Hysterectomy. 3. Vertebroplasty. MEDICATIONS: 1. Vancomycin. 2. Levaquin. 3. Aztreonam. ALLERGIES: Penicillin. SOCIAL HISTORY: No active tobacco, alcohol, or illicit drug abuse. FAMILY HISTORY: Noncontributory REVIEW OF SYSTEMS: As per history of present illness. Ten systems reviewed. All pertinent positives and negatives noted. PHYSICAL EXAMINATION: VITAL SIGNS: Maximum temperature 98.4 degrees, blood pressure 137/67, heart rate in the 60s, respiratory rate 18, and saturating 100% on room air. GENERAL: No apparent distress. Nontoxic appearing. CARDIOVASCULAR: Regular rate and rhythm. No murmurs. PULMONARY: Clear to auscultation bilaterally. ABDOMEN: Bowel sounds present. Soft, nondistended, and nontender. EXTREMITIES: No edema. LABORATORY DATA: White blood cell count 6.5, hemoglobin 9.6, and platelets 114,000. Sodium 145, potassium 4.5, chloride 110, bicarbonate 20, BUN 45, and creatinine 1.5 decreased from 1.8. Lactic acid 1.2. Calcium 10.3. AST 58, ALT 18, and alkaline phosphatase 135. Total bilirubin 0.8. Albumin 3. Troponin negative x1. MICROBIOLOGY: 1. On 06/08/2016, blood culture pending. 2. On 06/08/2016, urine culture pending. IMAGIN. On 06/09/2016, renal ultrasound pending. 2. On 06/08/2016, chest x-ray no acute findings. ASSESSMENT: 1. Probable recurrent complicated urinary tract infection. Urine culture is pending. Ultrasound is pending. She has a history of kidney stones and a growth of extended-spectrum beta-lactamases positive E. coli, Proteus mirabilis, Klebsiella oxytoca, and Colleen albicans. 2. Multiple superficial decubitus present on admission and not grossly infected. 3. History of coagulase-negative contaminant bacteremia. Surveillance blood cultures pending. 4. Afebrile without leukocytosis. 5. Acute encephalopathy most likely urinary tract infection. 6. Acute renal failure on chronic kidney disease stage 3, improved. 7. Hypercalcemia. 8. Diabetes type 2. 9. Obesity. 10. Penicillin allergy, previously tolerated meropenem. 11. Full Code. PLAN: 1. Continue empiric IV vancomycin day #1 and broaden Levaquin and aztreonam to meropenem day #1 based on previous cultures. 2. Follow up cultures. 3. Follow up renal ultrasound. 4. Monitor CBC and temperatures. 5. Monitor BMP. Thank you. We will follow. Jamil Landers M.D. DR: Komal JOB#: [id number] CC: Rl Tee M.D.; Fax#: [phone] Aguilera M.D; Fax#: [phone]
[2016-06-09] MEDS ORDERED: DuoNeb 0.5-3(2.5)mg/3ml neb HHN PRN (20:30)
[2016-06-09] MEDS ORDERED: Nitroglycerin Subl 0.4mg tab (Bottle Of 25) SL PRN (20:30)
[2016-06-09] MEDS ORDERED: Miralax 17gm pkt ORAL PRN (20:45)
[2016-06-09] MEDS: Meropenem 1 GM in NS 110 ML IVPB SCH (20:46)
[2016-06-09] MEDS ORDERED: Morphine Sulfate 2mg/ml Inj IVP PRN (21:00)
[2016-06-09] MEDS: Metoprolol Tartrate 12.5mg TAB ORAL SCH (21:00)
[2016-06-09 21:22] VITALS: BP 110/51
[2016-06-10] VITALS (7 sets, daily range): BP systolic 128–169; BP diastolic 53–87
[2016-06-10] MEDS ORDERED: Vancomycin 1 GM in D5W 275 ML IVPB SCH ×2
[2016-06-10] MEDS: Vancomycin 1 GM in D5W 275 ML IVPB SCH ×2 (00:11→23:59)
[2016-06-10] MEDS: NovoLOG Insulin Flexpen SUBQ SCH ×4 (06:30→21:22)
[2016-06-10 06:55] LABS: MEAN CORPUSCULAR HEMOGLOBIN 29.7 PG (27.0-31.0); MEAN CORPUSCULAR VOLUME 93 FL (80-99); PLATELET COUNT 99 K/UL (150-450); RED BLOOD COUNT 2.75 M/UL (4.20-5.40); WHITE BLOOD COUNT 5.2 K/UL (4.8-10.8)
[2016-06-10 07:15] LABS: ANION GAP 15 (5-15); CALCIUM 9.3 mg/dL (8.6-10.2); CARBON DIOXIDE 18 mEQ/L (20-30); CHLORIDE 107 mEQ/L (98-107); CREATININE 1.3 mg/dL (0.5-0.9); HEMOLYSIS 14; POTASSIUM 4.4 mEQ/L (3.4-4.9); SODIUM 140 mEQ/L (135-145)
[2016-06-10 07:20] LABS: TROPONIN I < 0.30 ng/mL (<=0.30)
[2016-06-10] MEDS: Heparin 5000 units/ml inj SUBQ SCH ×2 (09:00→21:00)
[2016-06-10] MEDS: Meropenem 1 GM in NS 110 ML IVPB SCH ×2 (09:06→21:19)
[2016-06-10] MEDS: Metoprolol Tartrate 12.5mg TAB ORAL SCH ×2 (09:07→21:19)
[2016-06-10] MEDS: Nystatin Powder 100,000 units/gm 15gm TOPIC SCH ×3 (09:24→17:54)
--- NOTE | 2016-06-10 09:39 | Diagnostic Imaging Report ---
Indication: Acute renal failure, hypertension, diabetic patient Technique: Grayscale and duplex images of the kidneys, retroperitoneum, and bladder were obtained. Comparison:09/29/2015 Findings: Right kidney measures 9.8 cm in length. Left kidney measures 9.4 cm in length. Both kidneys demonstrate normal echogenicity. No hydronephrosis. No focal abnormality. Normal inferior vena cava. Bladder is empty, contains a Nunez catheter. Incidental finding of splenic hilar varices Impression: Negative for hydronephrosis Nunez catheter within empty bladder Incidental finding of splenic hilar varices.
[2016-06-10 11:50] LABS: BAND NEUTROPHILS % (MANUAL) 0 % (0-8); BASOPHILS % (MANUAL) 0 % (0-2); EOSINOPHILS % (MANUAL) 6 % (0-3); LYMPHOCYTES % (MANUAL) 38 % (20-45); NEUTROPHILS % (MANUAL) 50 % (45-75); PLATELET ESTIMATE DECREASED; PLATELET MORPHOLOGY NORMAL; TOTAL CELLS COUNTED 100
--- NOTE | 2016-06-10 14:53 | Infectious Diseases Prog Note ---
Assessment/Plan Assessment/Plan ASSESSMENT: 76 y/o female with: // GPC clusters bacteremia 04/23 - real vs contaminant. C&S pending - h/o CONS contaminant bacteremia // Recurrent complicated GNR x2 UTI - C&S pending - US: normal echogenicity. No hydronephrosis. No focal abnormality - CT A/P 09/2015: 9 x 4 mm left proximal ureteral stone with mild left hydronephrosis. Tiny nonobstructive stone in the mid pole the left kidney. Bladder wall thickening, suspected cystitis - h/o ESBL(+) E.coli, P.mirabilis, K.oxytoca, C.albicans // Multiple superficial decubiti POA, not grossly infected // Afebrile without leukocytosis // Acute encephalopathy, m/l UTI // ARF on CKD3 - improved // Hypercalcemia // DM2 // Obesity // PCN allergy - previously tolerated meropenem // Full Code PLAN: - continue empiric IV vancomycin, meropenem d# 2 pending cultures - f/u cultures - monitor CBC, temperatures - monitor BMP Subjective Allergies: Coded Allergies: PENICILLINS (Unverified Allergy, Unknown, 03/22/15) Subjective remains afebrile BCx GPC 04/23, noted started on vanco Objective Vital Signs Last 24 Hour Vital Signs Date Time Temp Pulse Resp B/P Pulse Ox O2 Delivery O2 Flow Rate FiO2 06/10/16 11:34 98.2 71 16 169/78 99 Room Air 06/10/16 09:07 70 148/72 06/10/16 07:55 98.1 70 18 148/72 100 Room Air 06/10/16 06:52 70 19 Room Air 06/10/16 04:00 97.5 71 18 129/53 97 Room Air 06/10/16 00:00 97.7 63 19 128/61 100 Room Air 06/09/16 21:22 97.2 68 18 110/51 99 Room Air 06/09/16 21:00 68 110/51 06/09/16 19:05 78 20 Room Air 21 06/09/16 17:27 174/77 06/09/16 16:00 97.0 75 20 174/77 99 Room Air Height (Feet): 5 Height (Inches): 4.00 Weight (Pounds): 280 General Appearance: no acute distress Respiratory/Chest: no respiratory distress Cardiovascular: normal rate, regular rhythm Abdomen: normal bowel sounds, soft, non tender, non distended Microbiology Date/Time Source Procedure Growth Status 06/08/16 16:04 Blood Blood Culture - Preliminary NO GROWTH AFTER 24 HOURS Resulted 06/08/16 15:54 Blood Blood Culture - Preliminary Resulted 06/08/16 16:52 Urine,Clean Catch Urine Culture - Preliminary Gram Negative Bacillus 1 Gram Negative Bacillus 2 Resulted Laboratory Tests Test 06/10/16 05:55 White Blood Count 5.2 K/UL (4.8-10.8) Red Blood Count 2.75 M/UL (4.20-5.40) L Hemoglobin 8.2 G/DL (12.0-16.0) L Hematocrit 25.6 % (37.0-47.0) L Mean Corpuscular Volume 93 FL (80-99) Mean Corpuscular Hemoglobin 29.7 PG (27.0-31.0) Mean Corpuscular Hemoglobin Concent 32.0 G/DL (32.0-36.0) Red Cell Distribution Width 13.0 % (11.6-14.8) Platelet Count 99 K/UL (150-450) L Mean Platelet Volume 7.0 FL (6.5-10.1) Neutrophils (%) (Auto) % (45.0-75.0) Lymphocytes (%) (Auto) % (20.0-45.0) Monocytes (%) (Auto) % (1.0-10.0) Eosinophils (%) (Auto) % (0.0-3.0) Basophils (%) (Auto) % (0.0-2.0) Differential Total Cells Counted 100 Neutrophils % (Manual) 50 % (45-75) Lymphocytes % (Manual) 38 % (20-45) Monocytes % (Manual) 6 % (1-10) Eosinophils % (Manual) 6 % (0-3) H Basophils % (Manual) 0 % (0-2) Band Neutrophils 0 % (0-8) Platelet Estimate Decreased L Platelet Morphology Normal Red Blood Cell Morphology Normal Sodium Level 140 mEQ/L (135-145) Potassium Level 4.4 mEQ/L (3.4-4.9) Chloride Level 107 mEQ/L (98-107) Carbon Dioxide Level 18 mEQ/L (20-30) L Anion Gap 15 (5-15) Blood Urea Nitrogen 38 mg/dL (7-23) H Creatinine 1.3 mg/dL (0.5-0.9) H Estimat Glomerular Filtration Rate mL/min (>60) Glucose Level 102 mg/dL (74-106) Calcium Level 9.3 mg/dL (8.6-10.2) Troponin I < 0.30 ng/mL (<=0.30) Pro-B-Type Natriuretic Peptide 1065 pg/mL (0-450) H Current Medications Medications (Trade) Dose Ordered Sig/Pavel Route PRN Reason Start Time Stop Time Status Last Admin Dose Admin Acetaminophen (Tylenol) 650 mg Q4H PRN ORAL fever 06/09/16 20:45 07/09/16 20:44 Albuterol/ Ipratropium (DuoNeb 0.5-3(2.5)mg/3ml) 3 ml Q4H PRN HHN Shortness of Breath 06/09/16 20:30 06/14/16 20:29 Clonidine HCl (Catapres) 0.1 mg Q6H PRN ORAL for SBP >160 06/09/16 23:00 07/09/16 22:59 Dextrose (Dextrose 50%) STAT PRN IV Hypoglycemia 06/09/16 20:45 07/09/16 20:44 Heparin Sodium (Porcine) (Heparin 5000 units/ml) 5,000 units EVERY 12 HOURS SUBQ 06/09/16 21:00 07/09/16 20:59 Insulin Aspart (NovoLOG) BEFORE MEALS AND HS SUBQ 06/09/16 21:00 07/09/16 20:59 06/10/16 11:55 Meropenem 1 gm/ Sodium Chloride 110 ml @ 220 mls/hr Q12HR IVPB 06/09/16 21:00 06/14/16 20:59 06/10/16 09:06 Metoprolol Tartrate (Lopressor) 12.5 mg EVERY 12 HOURS ORAL 06/09/16 21:00 07/09/16 20:59 06/10/16 09:07 Morphine Sulfate (Morphine Sulfate) 2 mg Q4H PRN IVP Moderate Pain (Pain Scale 4-6) 06/09/16 21:00 06/16/16 20:59 Nitroglycerin (Ntg) 0.4 mg Q5MIN PRN SL Prn Chest Pain 06/09/16 20:30 3 20:29 Nystatin (Nystop Powder) 1 applic THREE TIMES A DAY TOPIC 06/10/16 09:00 07/10/16 08:59 06/10/16 11:56 Ondansetron HCl (Zofran) 4 mg Q6H PRN IVP Nausea & Vomiting 06/09/16 20:45 07/09/16 20:44 Polyethylene Glycol (Miralax) 17 gm DAILYPRN PRN ORAL Constipation 06/09/16 20:45 07/09/16 20:44 Sodium Chloride 1,000 ml @ 75 mls/hr [id number] IVLG 06/09/16 20:45 07/09/16 20:44 06/10/16 05:49 Temazepam (Restoril) 15 mg HSPRN PRN ORAL Insomnia 06/09/16 20:45 06/16/16 20:44 Vancomycin HCl (Vanco rx to dose) 1 ea DAILY PRN MISC Per rx protocol 06/09/16 20:30 07/09/16 20:29 Vancomycin HCl/ Dextrose (Vancomycin/D5W) 275 ml @ 183.708 mls/hr Q24H IVPB 06/10/16 00:00 06/15/16 00:00 06/10/16 00:11 KAYLA LOUIS Jun 10, 2016 14:53
--- NOTE | 2016-06-10 17:33 | Internal Med Progress Note ---
Subjective Date of Service: Jun 10, 2016 Physician Name PondJed Attending Physician Rl Tee MD Current Medications Medications (Trade) Dose Ordered Sig/Pavel Route PRN Reason Start Time Stop Time Status Last Admin Dose Admin Acetaminophen (Tylenol) 650 mg Q4H PRN ORAL fever 06/09/16 20:45 07/09/16 20:44 Albuterol/ Ipratropium (DuoNeb 0.5-3(2.5)mg/3ml) 3 ml Q4H PRN HHN Shortness of Breath 06/09/16 20:30 06/14/16 20:29 Clonidine HCl (Catapres) 0.1 mg Q6H PRN ORAL for SBP >160 06/09/16 23:00 07/09/16 22:59 Dextrose (Dextrose 50%) STAT PRN IV Hypoglycemia 06/09/16 20:45 07/09/16 20:44 Heparin Sodium (Porcine) (Heparin 5000 units/ml) 5,000 units EVERY 12 HOURS SUBQ 06/09/16 21:00 07/09/16 20:59 Insulin Aspart (NovoLOG) BEFORE MEALS AND HS SUBQ 06/09/16 21:00 07/09/16 20:59 06/10/16 11:55 Meropenem 1 gm/ Sodium Chloride 110 ml @ 220 mls/hr Q12HR IVPB 06/09/16 21:00 06/14/16 20:59 06/10/16 09:06 Metoprolol Tartrate (Lopressor) 12.5 mg EVERY 12 HOURS ORAL 06/09/16 21:00 07/09/16 20:59 06/10/16 09:07 Morphine Sulfate (Morphine Sulfate) 2 mg Q4H PRN IVP Moderate Pain (Pain Scale 4-6) 06/09/16 21:00 06/16/16 20:59 Nitroglycerin (Ntg) 0.4 mg Q5MIN PRN SL Prn Chest Pain 06/09/16 20:30 07/09/16 20:29 Nystatin (Nystop Powder) 1 applic THREE TIMES A DAY TOPIC 06/10/16 09:00 07/10/16 08:59 06/10/16 11:56 Ondansetron HCl (Zofran) 4 mg Q6H PRN IVP Nausea & Vomiting 06/09/16 20:45 07/09/16 20:44 Polyethylene Glycol (Miralax) 17 gm DAILYPRN PRN ORAL Constipation 06/09/16 20:45 07/09/16 20:44 Sodium Chloride 1,000 ml @ 75 mls/hr [id number] IVLG 06/09/16 20:45 07/09/16 20:44 06/10/16 05:49 Temazepam (Restoril) 15 mg HSPRN PRN ORAL Insomnia 06/09/16 20:45 06/16/16 20:44 Vancomycin HCl (Vanco rx to dose) 1 ea DAILY PRN MISC Per rx protocol 06/09/16 20:30 07/09/16 20:29 Vancomycin HCl/ Dextrose (Vancomycin/D5W) 275 ml @ 183.708 mls/hr Q24H IVPB 06/10/16 00:00 06/15/16 00:00 06/10/16 00:11 Allergies: Coded Allergies: PENICILLINS (Unverified Allergy, Unknown, 03/22/15) ROS Limited/Unobtainable: No Constitutional: Reports: no symptoms HEENT: Reports: no symptoms Cardiovascular: Reports: no symptoms Respiratory: Reports: no symptoms Gastrointestinal/Abdominal: Reports: no symptoms Genitourinary: Reports: no symptoms Neurologic/Psychiatric: Reports: no symptoms Subjective 76 YO F admitted with altered mental status, now UTI. Cover for Int Med-Dr Tee. Objective Last Vital Signs Date Time Temp Pulse Resp B/P Pulse Ox O2 Delivery O2 Flow Rate FiO2 06/10/16 16:00 98.2 73 20 143/71 97 Room Air 06/09/16 19:05 21 General Appearance: WD/WN, no apparent distress, alert, obese EENT: PERRL/EOMI, normal ENT inspection Neck: non-tender, normal alignment, supple Cardiovascular: normal peripheral pulses, normal rate, regular rhythm, no gallop/murmur, no JVD Respiratory/Chest: chest wall non-tender, lungs clear, normal breath sounds, no respiratory distress, no accessory muscle use Abdomen: normal bowel sounds, non tender, soft, no organomegaly, no mass Extremities: normal range of motion, non-tender 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 Skin: normal pigmentation, warm/dry Laboratory Tests Test 06/10/16 05:55 White Blood Count 5.2 K/UL (4.8-10.8) Red Blood Count 2.75 M/UL (4.20-5.40) L Hemoglobin 8.2 G/DL (12.0-16.0) L Hematocrit 25.6 % (37.0-47.0) L Mean Corpuscular Volume 93 FL (80-99) Mean Corpuscular Hemoglobin 29.7 PG (27.0-31.0) Mean Corpuscular Hemoglobin Concent 32.0 G/DL (32.0-36.0) Red Cell Distribution Width 13.0 % (11.6-14.8) Platelet Count 99 K/UL (150-450) L Mean Platelet Volume 7.0 FL (6.5-10.1) Neutrophils (%) (Auto) % (45.0-75.0) Lymphocytes (%) (Auto) % (20.0-45.0) Monocytes (%) (Auto) % (1.0-10.0) Eosinophils (%) (Auto) % (0.0-3.0) Basophils (%) (Auto) % (0.0-2.0) Differential Total Cells Counted 100 Neutrophils % (Manual) 50 % (45-75) Lymphocytes % (Manual) 38 % (20-45) Monocytes % (Manual) 6 % (1-10) Eosinophils % (Manual) 6 % (0-3) H Basophils % (Manual) 0 % (0-2) Band Neutrophils 0 % (0-8) Platelet Estimate Decreased L Platelet Morphology Normal Red Blood Cell Morphology Normal Sodium Level 140 mEQ/L (135-145) Potassium Level 4.4 mEQ/L (3.4-4.9) Chloride Level 107 mEQ/L (98-107) Carbon Dioxide Level 18 mEQ/L (20-30) L Anion Gap 15 (5-15) Blood Urea Nitrogen 38 mg/dL (7-23) H Creatinine 1.3 mg/dL (0.5-0.9) H Estimat Glomerular Filtration Rate mL/min (>60) Glucose Level 102 mg/dL (74-106) Calcium Level 9.3 mg/dL (8.6-10.2) Troponin I < 0.30 ng/mL (<=0.30) Pro-B-Type Natriuretic Peptide 1065 pg/mL (0-450) H Microbiology Date/Time Source Procedure Growth Status 06/08/16 16:04 Blood Blood Culture - Preliminary NO GROWTH AFTER 24 HOURS Resulted 06/08/16 15:54 Blood Blood Culture - Preliminary Resulted 06/08/16 16:52 Urine,Clean Catch Urine Culture - Preliminary Gram Negative Bacillus 1 Gram Negative Bacillus 2 Resulted Intake and Output 06/09/16 06/10/16 19:00 07:00 Intake Total 1510 ml 650.000 ml Output Total 600 ml 500 ml Balance 910 ml 150.000 ml Intake Oral 950 ml IV Total 560 ml 650.000 ml Output Urine Total 600 ml 500 ml Assessment/Plan Problem List: (1) Peripheral autonomic neuropathy due to diabetes mellitus (2) CHF (congestive heart failure) (3) Altered mental status (4) UTI (urinary tract infection) Assessment & Plan: Gram neg rods X 2. see ID note. Await ID and Sensitivities. Cont vanco and meropenem for now per ID (5) Diabetes mellitus Assessment & Plan: Cont novolog sliding scale. (6) Hypertension Assessment & Plan: Cont metoprolol (7) Hypercholesteremia (8) Sleep apnea, obstructive (9) GERD (gastroesophageal reflux disease) (10) Cardiomegaly (11) Obesity (12) Cirrhosis Status: not improved JED POND Jun 10, 2016 17:33
--- NOTE | 2016-06-10 22:34 | Pulmonology Progress Note ---
Assessment/Plan Problems: (1) Severe sepsis (2) RAMYA (acute kidney injury) (3) Diabetes mellitus (4) Obesity (5) Cirrhosis (6) Uncontrolled diabetes mellitus Assessment/Plan iv antibiotics check cultures iv fluids check electrolytes antibiotics by ID dvt prophylaxis Subjective ROS Limited/Unobtainable: No Interval Events: doing better, Allergies: Coded Allergies: PENICILLINS (Unverified Allergy, Unknown, 03/22/15) Objective Last 24 Hour Vital Signs Date Time Temp Pulse Resp B/P Pulse Ox O2 Delivery O2 Flow Rate FiO2 06/10/16 21:19 82 150/72 06/10/16 19:30 80 20 Room Air 21 06/10/16 19:00 98.1 82 20 150/72 100 Room Air 06/10/16 16:00 98.2 73 20 143/71 97 Room Air 06/10/16 11:34 98.2 71 16 169/78 99 Room Air 06/10/16 09:07 70 148/72 06/10/16 07:55 98.1 70 18 148/72 100 Room Air 06/10/16 06:52 70 19 Room Air 06/10/16 04:00 97.5 71 18 129/53 97 Room Air 06/10/16 00:00 97.7 63 19 128/61 100 Room Air Intake and Output 06/09/16 06/10/16 19:00 07:00 Intake Total 1510 ml 650.000 ml Output Total 600 ml 500 ml Balance 910 ml 150.000 ml Intake Oral 950 ml IV Total 560 ml 650.000 ml Output Urine Total 600 ml 500 ml Objective Lines, tubes and drains: peripheral, HEENT: normocephalic, atraumatic Neck: non-tender, normal alignment Respiratory/Chest: chest wall non-tender, lungs clear Cardiovascular/Chest: normal peripheral pulses, normal rate Abdomen: normal bowel sounds, non tender Genitourinary/Rectal: normal genital exam, normal rectal exam Extremities: normal range of motion, non-tender Microbiology Date/Time Source Procedure Growth Status 06/08/16 16:04 Blood Blood Culture - Preliminary NO GROWTH AFTER 24 HOURS Resulted 06/08/16 15:54 Blood Blood Culture - Preliminary Resulted 06/08/16 16:52 Urine,Clean Catch Urine Culture - Preliminary Gram Negative Bacillus 1 Gram Negative Bacillus 2 Resulted Laboratory Tests 06/10/16 05:55: White Blood Count 5.2, Red Blood Count 2.75L, Hemoglobin 8.2L, Hematocrit 25.6L , Mean Corpuscular Volume 93, Mean Corpuscular Hemoglobin 29.7, Mean Corpuscular Hemoglobin Concent 32.0, Red Cell Distribution Width 13.0, Platelet Count 99L, Mean Platelet Volume 7.0, Neutrophils (%) (Auto) , Lymphocytes (%) ( Auto) , Monocytes (%) (Auto) , Eosinophils (%) (Auto) , Basophils (%) (Auto) , Differential Total Cells Counted 100, Neutrophils % (Manual) 50, Lymphocytes % ( Manual) 38, Monocytes % (Manual) 6, Eosinophils % (Manual) 6H, Basophils % ( Manual) 0, Band Neutrophils 0, Platelet Estimate DecreasedL, Platelet Morphology Normal, Red Blood Cell Morphology Normal, Sodium Level 140, Potassium Level 4.4, Chloride Level 107, Carbon Dioxide Level 18L, Anion Gap 15 , Blood Urea Nitrogen 38H, Creatinine 1.3H, Estimat Glomerular Filtration Rate , Glucose Level 102, Calcium Level 9.3, Troponin I < 0.30, Pro-B-Type Natriuretic Peptide 1065H Current Medications Medications (Trade) Dose Ordered Sig/Pavel Route PRN Reason Start Time Stop Time Status Last Admin Dose Admin Acetaminophen (Tylenol) 650 mg Q4H PRN ORAL fever 06/09/16 20:45 07/09/16 20:44 Albuterol/ Ipratropium (DuoNeb 0.5-3(2.5)mg/3ml) 3 ml Q4H PRN HHN Shortness of Breath 06/09/16 20:30 06/14/16 20:29 Clonidine HCl (Catapres) 0.1 mg Q6H PRN ORAL for SBP >160 06/09/16 23:00 07/09/16 22:59 Dextrose (Dextrose 50%) STAT PRN IV Hypoglycemia 06/09/16 20:45 07/09/16 20:44 Heparin Sodium (Porcine) (Heparin 5000 units/ml) 5,000 units EVERY 12 HOURS SUBQ 06/09/16 21:00 07/09/16 20:59 Insulin Aspart (NovoLOG) BEFORE MEALS AND HS SUBQ 06/09/16 21:00 07/09/16 20:59 06/10/16 21:22 Meropenem 1 gm/ Sodium Chloride 110 ml @ 220 mls/hr Q12HR IVPB 06/09/16 21:00 06/14/16 20:59 06/10/16 21:19 Metoprolol Tartrate (Lopressor) 12.5 mg EVERY 12 HOURS ORAL 06/09/16 21:00 07/09/16 20:59 06/10/16 21:19 Morphine Sulfate (Morphine Sulfate) 2 mg Q4H PRN IVP Moderate Pain (Pain Scale 4-6) 06/09/16 21:00 06/16/16 20:59 Nitroglycerin (Ntg) 0.4 mg Q5MIN PRN SL Prn Chest Pain 06/09/16 20:30 07/09/16 20:29 Nystatin (Nystop Powder) 1 applic THREE TIMES A DAY TOPIC 06/10/16 09:00 07/10/16 08:59 06/10/16 17:54 Ondansetron HCl (Zofran) 4 mg Q6H PRN IVP Nausea & Vomiting 06/09/16 20:45 07/09/16 20:44 Polyethylene Glycol (Miralax) 17 gm DAILYPRN PRN ORAL Constipation 06/09/16 20:45 07/09/16 20:44 Sodium Chloride 1,000 ml @ 75 mls/hr [id number] IVLG 06/09/16 20:45 07/09/16 20:44 06/10/16 21:23 Temazepam (Restoril) 15 mg HSPRN PRN ORAL Insomnia 06/09/16 20:45 06/16/16 20:44 Vancomycin HCl (Vanco rx to dose) 1 ea DAILY PRN MISC Per rx protocol 06/09/16 20:30 07/09/16 20:29 Vancomycin HCl/ Dextrose (Vancomycin/D5W) 275 ml @ 183.708 mls/hr Q24H IVPB 06/10/16 00:00 06/15/16 00:00 06/10/16 00:11 DIONI TRIANA Jun 10, 2016 22:34
[2016-06-11 04:00] VITALS: BP 165/88
[2016-06-11] MEDS: NovoLOG Insulin Flexpen SUBQ SCH ×4 (05:55→20:30)
[2016-06-11 07:03] LABS: MEAN CORPUSCULAR HEMOGLOBIN 29.6 PG (27.0-31.0); MEAN CORPUSCULAR HGB CONC 32.2 G/DL (32.0-36.0); MEAN CORPUSCULAR VOLUME 92 FL (80-99); MEAN PLATELET VOLUME 7.2 FL (6.5-10.1); PLATELET COUNT 91 K/UL (150-450); RED BLOOD COUNT 2.84 M/UL (4.20-5.40); RED CELL DISTRIBUTION WIDTH 12.8 % (11.6-14.8); WHITE BLOOD COUNT 5.4 K/UL (4.8-10.8)
[2016-06-11 07:19] LABS: ANION GAP 12 (5-15); CALCIUM 9.8 mg/dL (8.6-10.2); CARBON DIOXIDE 19 mEQ/L (20-30); CHLORIDE 109 mEQ/L (98-107); CREATININE 1.1 mg/dL (0.5-0.9); HEMOLYSIS 0; POTASSIUM 4.2 mEQ/L (3.4-4.9); SODIUM 140 mEQ/L (135-145)
[2016-06-11 07:55] LABS: INR 1.3 (0.9-1.1); PROTHROMBIN TIME 13.4 SEC (9.30-11.50)
[2016-06-11 08:32] VITALS: BP 153/77
[2016-06-11] MEDS: Meropenem 1 GM in NS 110 ML IVPB SCH (08:45)
[2016-06-11] MEDS: Nystatin Powder 100,000 units/gm 15gm TOPIC SCH ×3 (08:45→18:08)
[2016-06-11] MEDS: Metoprolol Tartrate 12.5mg TAB ORAL SCH ×2 (08:45→20:30)
[2016-06-11 11:41] LABS: BAND NEUTROPHILS % (MANUAL) 0 % (0-8); BASOPHILS % (MANUAL) 0 % (0-2); EOSINOPHILS % (MANUAL) 7 % (0-3); LYMPHOCYTES % (MANUAL) 44 % (20-45); NEUTROPHILS % (MANUAL) 44 % (45-75); PLATELET ESTIMATE DECREASED; PLATELET MORPHOLOGY NORMAL; TOTAL CELLS COUNTED 100
[2016-06-11 11:52] VITALS: BP 148/78
--- NOTE | 2016-06-11 13:22 | Internal Med Progress Note ---
Subjective Date of Service: Jun 11, 2016 Physician Name Jed Pond Attending Physician Rl Tee MD Current Medications Medications (Trade) Dose Ordered Sig/Pavel Route PRN Reason Start Time Stop Time Status Last Admin Dose Admin Acetaminophen (Tylenol) 650 mg Q4H PRN ORAL fever 06/09/16 20:45 07/09/16 20:44 Albuterol/ Ipratropium (DuoNeb 0.5-3(2.5)mg/3ml) 3 ml Q4H PRN HHN Shortness of Breath 06/09/16 20:30 06/14/16 20:29 Clonidine HCl (Catapres) 0.1 mg Q6H PRN ORAL for SBP >160 06/09/16 23:00 07/09/16 22:59 06/11/16 05:19 Dextrose (Dextrose 50%) STAT PRN IV Hypoglycemia 06/09/16 20:45 07/09/16 20:44 Insulin Aspart (NovoLOG) BEFORE MEALS AND HS SUBQ 06/09/16 21:00 07/09/16 20:59 06/11/16 11:54 Meropenem 1 gm/ Sodium Chloride 110 ml @ 220 mls/hr Q12HR IVPB 06/09/16 21:00 06/14/16 20:59 06/11/16 08:45 Metoprolol Tartrate (Lopressor) 12.5 mg EVERY 12 HOURS ORAL 06/09/16 21:00 07/09/16 20:59 06/11/16 08:45 Morphine Sulfate (Morphine Sulfate) 2 mg Q4H PRN IVP Moderate Pain (Pain Scale 4-6) 06/09/16 21:00 06/16/16 20:59 06/11/16 02:16 Nitroglycerin (Ntg) 0.4 mg Q5MIN PRN SL Prn Chest Pain 06/09/16 20:30 07/09/16 20:29 Nystatin (Nystop Powder) 1 applic THREE TIMES A DAY TOPIC 06/10/16 09:00 07/10/16 08:59 06/11/16 12:07 Ondansetron HCl (Zofran) 4 mg Q6H PRN IVP Nausea & Vomiting 06/09/16 20:45 07/09/16 20:44 Polyethylene Glycol (Miralax) 17 gm DAILYPRN PRN ORAL Constipation 06/09/16 20:45 07/09/16 20:44 Sodium Chloride 1,000 ml @ 75 mls/hr [id number] IVLG 06/09/16 20:45 07/09/16 20:44 06/11/16 12:07 Temazepam (Restoril) 15 mg HSPRN PRN ORAL Insomnia 06/09/16 20:45 06/16/16 20:44 Vancomycin HCl (Vanco rx to dose) 1 ea DAILY PRN MISC Per rx protocol 06/09/16 20:30 07/09/16 20:29 Vancomycin HCl/ Dextrose (Vancomycin/D5W) 275 ml @ 183.708 mls/hr Q24H IVPB 06/10/16 00:00 06/15/16 00:00 06/10/16 23:59 Allergies: Coded Allergies: PENICILLINS (Unverified Allergy, Unknown, 03/22/15) ROS Limited/Unobtainable: No Constitutional: Reports: no symptoms HEENT: Reports: no symptoms Cardiovascular: Reports: no symptoms Respiratory: Reports: no symptoms Gastrointestinal/Abdominal: Reports: no symptoms Genitourinary: Reports: no symptoms Neurologic/Psychiatric: Reports: no symptoms Subjective 76 YO F admitted with altered mental status, now UTI. Cover for Int Med-Dr Tee. Objective Last Vital Signs Date Time Temp Pulse Resp B/P Pulse Ox O2 Delivery O2 Flow Rate FiO2 06/11/16 11:52 97.5 70 19 148/78 99 Room Air 06/11/16 08:20 21 Laboratory Tests Test 06/11/16 06:15 White Blood Count 5.4 K/UL (4.8-10.8) Red Blood Count 2.84 M/UL (4.20-5.40) L Hemoglobin 8.4 G/DL (12.0-16.0) L Hematocrit 26.1 % (37.0-47.0) L Mean Corpuscular Volume 92 FL (80-99) Mean Corpuscular Hemoglobin 29.6 PG (27.0-31.0) Mean Corpuscular Hemoglobin Concent 32.2 G/DL (32.0-36.0) Red Cell Distribution Width 12.8 % (11.6-14.8) Platelet Count 91 K/UL (150-450) L Mean Platelet Volume 7.2 FL (6.5-10.1) Neutrophils (%) (Auto) % (45.0-75.0) Lymphocytes (%) (Auto) % (20.0-45.0) Monocytes (%) (Auto) % (1.0-10.0) Eosinophils (%) (Auto) % (0.0-3.0) Basophils (%) (Auto) % (0.0-2.0) Differential Total Cells Counted 100 Neutrophils % (Manual) 44 % (45-75) L Lymphocytes % (Manual) 44 % (20-45) Monocytes % (Manual) 5 % (1-10) Eosinophils % (Manual) 7 % (0-3) H Basophils % (Manual) 0 % (0-2) Band Neutrophils 0 % (0-8) Platelet Estimate Decreased L Platelet Morphology Normal Red Blood Cell Morphology Normal Prothrombin Time 13.4 SEC (9.30-11.50) H Prothromb Time International Ratio 1.3 (0.9-1.1) H Activated Partial Thromboplast Time 32 SEC (23-33) Sodium Level 140 mEQ/L (135-145) Potassium Level 4.2 mEQ/L (3.4-4.9) Chloride Level 109 mEQ/L (98-107) H Carbon Dioxide Level 19 mEQ/L (20-30) L Anion Gap 12 (5-15) Blood Urea Nitrogen 24 mg/dL (7-23) H Creatinine 1.1 mg/dL (0.5-0.9) H Estimat Glomerular Filtration Rate mL/min (>60) Glucose Level 126 mg/dL (74-106) H Calcium Level 9.8 mg/dL (8.6-10.2) Microbiology Date/Time Source Procedure Growth Status 06/08/16 16:04 Blood Blood Culture - Preliminary NO GROWTH AFTER 48 HOURS Resulted 06/08/16 15:54 Blood Blood Culture - Preliminary Staphylococcus Sp Coag Neg Resulted 06/08/16 18:30 Nasal Nares MRSA Culture - Final Staphylococcus Aureus - Mrsa Complete 06/08/16 16:52 Urine,Clean Catch Urine Culture - Final Klebsiella Pneumoniae Esbl Escherichia Coli - Esbl Complete 06/08/16 18:30 Rectum VRE Culture - Final Enterococcus Faecium - Vre Enterococcus Faecalis - Vre Complete Intake and Output 06/10/16 06/11/16 19:00 07:00 Intake Total 2260 ml 1225.000 ml Output Total 600 ml 2550 ml Balance 1660 ml -1325.000 ml Intake Oral 800 ml 240 ml IV Total 1460 ml 985.000 ml Output Urine Total 600 ml 2550 ml # Bowel Movements 2 Objective General Appearance: WD/WN, no apparent distress, alert, obese EENT: PERRL/EOMI, normal ENT inspection Neck: non-tender, normal alignment, supple Cardiovascular: normal peripheral pulses, normal rate, regular rhythm, no gallop/murmur, no JVD Respiratory/Chest: chest wall non-tender, lungs clear, normal breath sounds, no respiratory distress, no accessory muscle use Abdomen: normal bowel sounds, non tender, soft, no organomegaly, no mass Extremities: normal range of motion, non-tender 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 coli and ESBL kleb pneumo. See ID note. Cont vanco and meropenem for per ID (5) Diabetes mellitus Assessment & Plan: Cont novolog sliding scale. (6) Hypertension Assessment & Plan: Cont metoprolol (7) Hypercholesteremia (8) Sleep apnea, obstructive (9) GERD (gastroesophageal reflux disease) (10) Cardiomegaly (11) Obesity (12) Cirrhosis Status: progressing JED POND Jun 11, 2016 13:22
--- NOTE | 2016-06-11 14:11 | Infectious Diseases Prog Note ---
Assessment/Plan Assessment/Plan ASSESSMENT: 76 y/o female with: // CONS bacteremia 1/ c/w contaminant - h/o CONS contaminant bacteremia // Recurrent complicated ESBL(+) E.coli + K.pneumoniae UTI - US: normal echogenicity. No hydronephrosis. No focal abnormality - CT A/P 09/2015: 9 x 4 mm left proximal ureteral stone with mild left hydronephrosis. Tiny nonobstructive stone in the mid pole the left kidney. 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 DC IV vancomycin d# 3, de-escalate meropenem d# 3 to invanz d# 1 while still inpt - f/u cultures - monitor CBC, temperatures - monitor BMP Subjective Allergies: Coded Allergies: PENICILLINS (Unverified Allergy, Unknown, 03/22/15) Subjective remains afebrile cultures noted Objective Vital Signs Last 24 Hour Vital Signs Date Time Temp Pulse Resp B/P Pulse Ox O2 Delivery O2 Flow Rate FiO2 06/11/16 11:52 97.5 70 19 148/78 99 Room Air 06/11/16 08:45 80 153/77 06/11/16 08:32 97.0 80 20 153/77 100 Room Air 06/11/16 08:20 75 20 Room Air 21 06/11/16 05:19 165/88 06/11/16 04:00 98.2 84 18 165/88 96 Room Air 06/10/16 23:49 97.8 84 20 156/87 100 Room Air 06/10/16 21:19 82 150/72 06/10/16 19:30 80 20 Room Air 21 06/10/16 19:00 98.1 82 20 150/72 100 Room Air 06/10/16 16:00 98.2 73 20 143/71 97 Room Air Height (Feet): 5 Height (Inches): 4.00 Weight (Pounds): 280 General Appearance: no acute distress Respiratory/Chest: no respiratory distress Cardiovascular: normal rate, regular rhythm Abdomen: normal bowel sounds, soft, non tender, non distended Microbiology Date/Time Source Procedure Growth Status 06/08/16 16:04 Blood Blood Culture - Preliminary NO GROWTH AFTER 48 HOURS Resulted 06/08/16 15:54 Blood Blood Culture - Preliminary Staphylococcus Sp Coag Neg Resulted 06/08/16 18:30 Nasal Nares MRSA Culture - Final Staphylococcus Aureus - Mrsa Complete 06/08/16 16:52 Urine,Clean Catch Urine Culture - Final Klebsiella Pneumoniae Esbl Escherichia Coli - Esbl Complete 06/08/16 18:30 Rectum VRE Culture - Final Enterococcus Faecium - Vre Enterococcus Faecalis - Vre Complete Laboratory Tests Test 06/11/16 06:15 White Blood Count 5.4 K/UL (4.8-10.8) Red Blood Count 2.84 M/UL (4.20-5.40) L Hemoglobin 8.4 G/DL (12.0-16.0) L Hematocrit 26.1 % (37.0-47.0) L Mean Corpuscular Volume 92 FL (80-99) Mean Corpuscular Hemoglobin 29.6 PG (27.0-31.0) Mean Corpuscular Hemoglobin Concent 32.2 G/DL (32.0-36.0) Red Cell Distribution Width 12.8 % (11.6-14.8) Platelet Count 91 K/UL (150-450) L Mean Platelet Volume 7.2 FL (6.5-10.1) Neutrophils (%) (Auto) % (45.0-75.0) Lymphocytes (%) (Auto) % (20.0-45.0) Monocytes (%) (Auto) % (1.0-10.0) Eosinophils (%) (Auto) % (0.0-3.0) Basophils (%) (Auto) % (0.0-2.0) Differential Total Cells Counted 100 Neutrophils % (Manual) 44 % (45-75) L Lymphocytes % (Manual) 44 % (20-45) Monocytes % (Manual) 5 % (1-10) Eosinophils % (Manual) 7 % (0-3) H Basophils % (Manual) 0 % (0-2) Band Neutrophils 0 % (0-8) Platelet Estimate Decreased L Platelet Morphology Normal Red Blood Cell Morphology Normal Prothrombin Time 13.4 SEC (9.30-11.50) H Prothromb Time International Ratio 1.3 (0.9-1.1) H Activated Partial Thromboplast Time 32 SEC (23-33) Sodium Level 140 mEQ/L (135-145) Potassium Level 4.2 mEQ/L (3.4-4.9) Chloride Level 109 mEQ/L (98-107) H Carbon Dioxide Level 19 mEQ/L (20-30) L Anion Gap 12 (5-15) Blood Urea Nitrogen 24 mg/dL (7-23) H Creatinine 1.1 mg/dL (0.5-0.9) H Estimat Glomerular Filtration Rate mL/min (>60) Glucose Level 126 mg/dL (74-106) H Calcium Level 9.8 mg/dL (8.6-10.2) Current Medications Medications (Trade) Dose Ordered Sig/Pavel Route PRN Reason Start Time Stop Time Status Last Admin Dose Admin Acetaminophen (Tylenol) 650 mg Q4H PRN ORAL fever 06/09/16 20:45 07/09/16 20:44 Albuterol/ Ipratropium (DuoNeb 0.5-3(2.5)mg/3ml) 3 ml Q4H PRN HHN Shortness of Breath 06/09/16 20:30 06/14/16 20:29 Clonidine HCl (Catapres) 0.1 mg Q6H PRN ORAL for SBP >160 06/09/16 23:00 07/09/16 22:59 06/11/16 05:19 Dextrose (Dextrose 50%) STAT PRN IV Hypoglycemia 06/09/16 20:45 07/09/16 20:44 Insulin Aspart (NovoLOG) BEFORE MEALS AND HS SUBQ 06/09/16 21:00 07/09/16 20:59 06/11/16 11:54 Meropenem 1 gm/ Sodium Chloride 110 ml @ 220 mls/hr Q12HR IVPB 06/09/16 21:00 06/14/16 20:59 06/11/16 08:45 Metoprolol Tartrate (Lopressor) 12.5 mg EVERY 12 HOURS ORAL 06/09/16 21:00 07/09/16 20:59 06/11/16 08:45 Morphine Sulfate (Morphine Sulfate) 2 mg Q4H PRN IVP Moderate Pain (Pain Scale 4-6) 06/09/16 21:00 06/16/16 20:59 06/11/16 02:16 Nitroglycerin (Ntg) 0.4 mg Q5MIN PRN SL Prn Chest Pain 06/09/16 20:30 3 20:29 Nystatin (Nystop Powder) 1 applic THREE TIMES A DAY TOPIC 06/10/16 09:00 07/10/16 08:59 06/11/16 12:07 Ondansetron HCl (Zofran) 4 mg Q6H PRN IVP Nausea & Vomiting 06/09/16 20:45 07/09/16 20:44 Polyethylene Glycol (Miralax) 17 gm DAILYPRN PRN ORAL Constipation 06/09/16 20:45 07/09/16 20:44 Sodium Chloride 1,000 ml @ 75 mls/hr [id number] IVLG 06/09/16 20:45 07/09/16 20:44 06/11/16 12:07 Temazepam (Restoril) 15 mg HSPRN PRN ORAL Insomnia 06/09/16 20:45 06/16/16 20:44 Vancomycin HCl (Vanco rx to dose) 1 ea DAILY PRN MISC Per rx protocol 06/09/16 20:30 07/09/16 20:29 Vancomycin HCl/ Dextrose (Vancomycin/D5W) 275 ml @ 183.708 mls/hr Q24H IVPB 06/10/16 00:00 06/15/16 00:00 06/10/16 23:59 KAYLA LOUIS Jun 11, 2016 14:11
--- NOTE | 2016-06-11 15:30 | Pulmonology Progress Note ---
Assessment/Plan Problems: (1) Severe sepsis (2) RAMYA (acute kidney injury) (3) Diabetes mellitus (4) Obesity (5) Cirrhosis (6) Uncontrolled diabetes mellitus Assessment/Plan de-escalate iv antibiotics feeling better check cultures Bs controlled iv fluids check electrolytes antibiotics by ID dvt prophylaxis Subjective ROS Limited/Unobtainable: No Constitutional: Reports: no symptoms HEENT: Repors: no symptoms Respiratory: Reports: no symptoms Allergies: Coded Allergies: PENICILLINS (Unverified Allergy, Unknown, 03/22/15) Objective Last 24 Hour Vital Signs Date Time Temp Pulse Resp B/P Pulse Ox O2 Delivery O2 Flow Rate FiO2 06/11/16 11:52 97.5 70 19 148/78 99 Room Air 06/11/16 08:45 80 153/77 06/11/16 08:32 97.0 80 20 153/77 100 Room Air 06/11/16 08:20 75 20 Room Air 21 06/11/16 05:19 165/88 06/11/16 04:00 98.2 84 18 165/88 96 Room Air 06/10/16 23:49 97.8 84 20 156/87 100 Room Air 06/10/16 21:19 82 150/72 06/10/16 19:30 80 20 Room Air 21 06/10/16 19:00 98.1 82 20 150/72 100 Room Air 06/10/16 16:00 98.2 73 20 143/71 97 Room Air Intake and Output 06/10/16 06/11/16 19:00 07:00 Intake Total 2260 ml 1225.000 ml Output Total 600 ml 2550 ml Balance 1660 ml -1325.000 ml Intake Oral 800 ml 240 ml IV Total 1460 ml 985.000 ml Output Urine Total 600 ml 2550 ml # Bowel Movements 2 Objective Lines, tubes and drains: peripheral, HEENT: normocephalic, atraumatic Neck: non-tender, normal alignment Respiratory/Chest: chest wall non-tender, lungs clear Cardiovascular/Chest: normal peripheral pulses, normal rate Abdomen: normal bowel sounds, non tender Genitourinary/Rectal: normal genital exam, normal rectal exam Extremities: normal range of motion, non-tender Microbiology Date/Time Source Procedure Growth Status 06/08/16 16:04 Blood Blood Culture - Preliminary NO GROWTH AFTER 48 HOURS Resulted 06/08/16 15:54 Blood Blood Culture - Preliminary Staphylococcus Sp Coag Neg Resulted 06/08/16 18:30 Nasal Nares MRSA Culture - Final Staphylococcus Aureus - Mrsa Complete 06/08/16 16:52 Urine,Clean Catch Urine Culture - Final Klebsiella Pneumoniae Esbl Escherichia Coli - Esbl Complete 06/08/16 18:30 Rectum VRE Culture - Final Enterococcus Faecium - Vre Enterococcus Faecalis - Vre Complete Laboratory Tests 06/11/16 06:15: White Blood Count 5.4, Red Blood Count 2.84L, Hemoglobin 8.4L, Hematocrit 26.1L , Mean Corpuscular Volume 92, Mean Corpuscular Hemoglobin 29.6, Mean Corpuscular Hemoglobin Concent 32.2, Red Cell Distribution Width 12.8, Platelet Count 91L, Mean Platelet Volume 7.2, Neutrophils (%) (Auto) , Lymphocytes (%) ( Auto) , Monocytes (%) (Auto) , Eosinophils (%) (Auto) , Basophils (%) (Auto) , Differential Total Cells Counted 100, Neutrophils % (Manual) 44L, Lymphocytes % (Manual) 44, Monocytes % (Manual) 5, Eosinophils % (Manual) 7H, Basophils % ( Manual) 0, Band Neutrophils 0, Platelet Estimate DecreasedL, Platelet Morphology Normal, Red Blood Cell Morphology Normal, Prothrombin Time 13.4H, Prothromb Time International Ratio 1.3H, Activated Partial Thromboplast Time 32 , Sodium Level 140, Potassium Level 4.2, Chloride Level 109H, Carbon Dioxide Level 19L, Anion Gap 12, Blood Urea Nitrogen 24H, Creatinine 1.1H, Estimat Glomerular Filtration Rate , Glucose Level 126H, Calcium Level 9.8 Current Medications Medications (Trade) Dose Ordered Sig/Pavel Route PRN Reason Start Time Stop Time Status Last Admin Dose Admin Acetaminophen (Tylenol) 650 mg Q4H PRN ORAL fever 06/09/16 20:45 07/09/16 20:44 Albuterol/ Ipratropium (DuoNeb 0.5-3(2.5)mg/3ml) 3 ml Q4H PRN HHN Shortness of Breath 06/09/16 20:30 06/14/16 20:29 Clonidine HCl (Catapres) 0.1 mg Q6H PRN ORAL for SBP >160 06/09/16 23:00 07/09/16 22:59 06/11/16 05:19 Dextrose (Dextrose 50%) STAT PRN IV Hypoglycemia 06/09/16 20:45 07/09/16 20:44 Ertapenem/Sodium Chloride (INVanz/Sodium Chloride) 55 ml @ 110 mls/hr Q24H IVPB 06/11/16 21:00 06/16/16 20:59 Insulin Aspart (NovoLOG) BEFORE MEALS AND HS SUBQ 06/09/16 21:00 07/09/16 20:59 06/11/16 11:54 Metoprolol Tartrate (Lopressor) 12.5 mg EVERY 12 HOURS ORAL 06/09/16 21:00 07/09/16 20:59 06/11/16 08:45 Morphine Sulfate (Morphine Sulfate) 2 mg Q4H PRN IVP Moderate Pain (Pain Scale 4-6) 06/09/16 21:00 06/16/16 20:59 06/11/16 02:16 Nitroglycerin (Ntg) 0.4 mg Q5MIN PRN SL Prn Chest Pain 06/09/16 20:30 07/09/16 20:29 Nystatin (Nystop Powder) 1 applic THREE TIMES A DAY TOPIC 06/10/16 09:00 07/10/16 08:59 06/11/16 12:07 Ondansetron HCl (Zofran) 4 mg Q6H PRN IVP Nausea & Vomiting 06/09/16 20:45 07/09/16 20:44 Polyethylene Glycol (Miralax) 17 gm DAILYPRN PRN ORAL Constipation 06/09/16 20:45 07/09/16 20:44 Sodium Chloride (Sodium Chloride 1000ml bag) 1,000 ml @ 75 mls/hr [id number] IVLG 06/09/16 20:45 07/09/16 20:44 06/11/16 12:07 Temazepam 15 mg 15 mg HSPRN PRN ORAL Insomnia 06/09/16 20:45 06/16/16 20:44 DIONI TRIANA Jun 11, 2016 15:30
[2016-06-11 15:56] VITALS: BP 139/62
[2016-06-11 17:41] LABS: ERYTHROCYTE SEDIMENTATION RATE 101 MM/HR (0-30)
[2016-06-11 18:46] LABS: RETICULOCYTE COUNT 2.1 % (0.0-2.0)
[2016-06-11 19:00] VITALS: BP 142/76
[2016-06-11 19:11] LABS: PATH BLOOD SMEAR/OMC SENT TO PATHOLOGIST
[2016-06-11] MEDS: Ertapenem 1 GM in NS 55 ML IVPB SCH (20:30)
--- NOTE | 2016-06-11 23:02 | General Progress Note ---
Assessment/Plan Assessment/Plan GI Consult Assessment - DURANT/cirrhosis - black stools - anemia with drop in H&H - DM - h/o Gt - removed Recommendations - monitor H&H - Transfuse PRN - EGD in am - PPI Thank you Yokasta Torres MD Subjective Allergies: Coded Allergies: PENICILLINS (Unverified Allergy, Unknown, 03/22/15) Objective Last 24 Hour Vital Signs Date Time Temp Pulse Resp B/P Pulse Ox O2 Delivery O2 Flow Rate FiO2 06/11/16 20:30 69 139/62 06/11/16 19:00 97.3 79 20 142/76 100 Room Air 06/11/16 15:56 97.3 69 20 139/62 99 Room Air 06/11/16 11:52 97.5 70 19 148/78 99 Room Air 06/11/16 08:45 80 153/77 06/11/16 08:32 97.0 80 20 153/77 100 Room Air 06/11/16 08:20 75 20 Room Air 21 06/11/16 05:19 165/88 06/11/16 04:00 98.2 84 18 165/88 96 Room Air 06/10/16 23:49 97.8 84 20 156/87 100 Room Air Intake and Output 06/10/16 06/11/16 19:00 07:00 Intake Total 2260 ml 1225.000 ml Output Total 600 ml 2550 ml Balance 1660 ml -1325.000 ml Intake Oral 800 ml 240 ml IV Total 1460 ml 985.000 ml Output Urine Total 600 ml 2550 ml # Bowel Movements 2 Laboratory Tests 06/11/16 06:15: White Blood Count 5.4, Red Blood Count 2.84L, Hemoglobin 8.4L, Hematocrit 26.1L , Mean Corpuscular Volume 92, Mean Corpuscular Hemoglobin 29.6, Mean Corpuscular Hemoglobin Concent 32.2, Red Cell Distribution Width 12.8, Platelet Count 91L, Mean Platelet Volume 7.2, Neutrophils (%) (Auto) , Lymphocytes (%) ( Auto) , Monocytes (%) (Auto) , Eosinophils (%) (Auto) , Basophils (%) (Auto) , Differential Total Cells Counted 100, Neutrophils % (Manual) 44L, Lymphocytes % (Manual) 44, Monocytes % (Manual) 5, Eosinophils % (Manual) 7H, Basophils % ( Manual) 0, Band Neutrophils 0, Platelet Estimate DecreasedL, Platelet Morphology Normal, Red Blood Cell Morphology Normal, Erythrocyte Sedimentation Rate 101H, Reticulocyte Count 2.1H, Prothrombin Time 13.4H, Prothromb Time International Ratio 1.3H, Activated Partial Thromboplast Time 32, Sodium Level 140, Potassium Level 4.2, Chloride Level 109H, Carbon Dioxide Level 19L, Anion Gap 12, Blood Urea Nitrogen 24H, Creatinine 1.1H, Estimat Glomerular Filtration Rate , Glucose Level 126H, Calcium Level 9.8, Iron Level 73, Total Iron Binding Capacity 248L, Percent Iron Saturation 29, Unsaturated Iron Binding 175, Lactate Dehydrogenase 192, Carcinoembryonic Antigen 11.6H, Vitamin B12 Level 1229H, Folate [Pending] Height (Feet): 5 Height (Inches): 4.00 Weight (Pounds): 280 [email or web address] Jun 11, 2016 23:02
[2016-06-12] VITALS: BP 158/71
[2016-06-12] MEDS: Pantoprazole Inj IVP SCH ×2 (00:04→22:19)
--- NOTE | 2016-06-12 00:28 | Consultation ---
DATE OF CONSULTATION: 06/11/2016 GASTROENTEROLOGY CONSULTATION CONSULTING PHYSICIAN: Yokasta Torres M.D. REFERRING PHYSICIAN: Rl Tee M.D. CHIEF COMPLAINT: I was asked to see this patient by Dr. Rl Tee and Dr. Jed Guthrie for evaluation of cirrhosis and black stools. HISTORY OF PRESENT ILLNESS: The patient is a pleasant 76-year-old white woman with a longstanding history of nonalcoholic steatohepatitis with results cirrhosis, who was brought in to the hospital due to altered mental status. She was found to have a deep infection and sepsis and was treated with antibiotics. The patient was found to have black stools and therefore this consultation was generated. The patient also has had drop in hematocrit. The patient has had endoscopies and colonoscopies in the past, although not recently. She had been gastrostomy tube at some point, which was subsequently removed. She denies any abdominal pain, nausea, or vomiting. The patient has been tolerating oral intake. PAST MEDICAL HISTORY: Diabetes, hypertension, obstructive sleep apnea, gastroesophageal reflux, hypercholesterolemia, cardiomyopathy, diabetic retinopathy, liver cirrhosis, fatty liver, debilitated state, status post gastrostomy tube placement and subsequent removal. MEDICATIONS: See the chart list for details. The patient was previously on iron, which presumably stool black. The patient's home medications also include aspirin and Plavix. ALLERGIES: Penicillin. FAMILY HISTORY: Noncontributory. SOCIAL HISTORY: The patient resides in a assisted. She is debilitated. No history of smoking or drinking. REVIEW OF SYSTEMS: Negative. PHYSICAL EXAMINATION: GENERAL: The patient is a pleasant white woman, seen in her room. HEENT: Normocephalic and atraumatic. Sclerae anicteric. Oropharynx is clear. NECK: Supple. CHEST: Clear to auscultation. CARDIOVASCULAR: Regular rhythm and rate. ABDOMEN: Soft. EXTREMITIES: Revealed no edema. NEUROLOGIC: Nonfocal. LABORATORY DATA: Noted. ASSESSMENT: This patient presents with black stools, which may be partially due to her iron decrease. However, she also appeared to have risk factors of gastrointestinal bleeding. Given the drop in hematocrit, I will proceed with a diagnostic endoscopy tomorrow. The stool will be evaluated for occult blood varices, or gastroesophageal reflux. Indications risks, alternatives, and possible complications were explained to the patient and daughter. Informed consent was obtained. RECOMMENDATIONS: Per above discussion and per orders written in the chart. Thank you for asking me to participate in the care of this patient. Yokasta Torres M.D. DR: GABRIEL JOB#: [id number] CC:
[2016-06-12 04:40] VITALS: BP 153/79
[2016-06-12] MEDS: NovoLOG Insulin Flexpen SUBQ SCH ×4 (06:30→21:10)
[2016-06-12 07:06] LABS: MEAN CORPUSCULAR HEMOGLOBIN 30.2 PG (27.0-31.0); MEAN CORPUSCULAR VOLUME 92 FL (80-99); MEAN PLATELET VOLUME 6.4 FL (6.5-10.1); PLATELET COUNT 98 K/UL (150-450); RED BLOOD COUNT 2.86 M/UL (4.20-5.40); RED CELL DISTRIBUTION WIDTH 12.7 % (11.6-14.8); WHITE BLOOD COUNT 4.8 K/UL (4.8-10.8)
[2016-06-12 07:22] LABS: ANION GAP 16 (5-15); CALCIUM 10.1 mg/dL (8.6-10.2); CARBON DIOXIDE 18 mEQ/L (20-30); CHLORIDE 102 mEQ/L (98-107); HEMOLYSIS 2; SODIUM 136 mEQ/L (135-145)
[2016-06-12 07:27] LABS: TROPONIN I < 0.30 ng/mL (<=0.30)
[2016-06-12 08:11] LABS: ANISOCYTOSIS 1+; BAND NEUTROPHILS % (MANUAL) 0 % (0-8); BASOPHILS % (MANUAL) 0 % (0-2); EOSINOPHILS % (MANUAL) 6 % (0-3); HYPOCHROMASIA 2+; LYMPHOCYTES % (MANUAL) 26 % (20-45); NEUTROPHILS % (MANUAL) 61 % (45-75); PLATELET ESTIMATE DECREASED; PLATELET MORPHOLOGY NORMAL; TOTAL CELLS COUNTED 100
[2016-06-12 08:15] VITALS: BP 172/83
--- NOTE | 2016-06-12 08:35 | Pre-Procedure Note/Attestation ---
Pre-Procedure Note/Attestation Complete Prior to Procedure Planned Procedure: not applicable Procedure Narrative: EGD Indications for Procedure Pre-Operative Diagnosis: GIB, Anemia Attestation I attest that I discussed the nature of the procedure; its benefits; risks and complications; and alternatives (and the risks and benefits of such alternatives ), prior to the procedure, with the patient (or the patient's legal support representative). I attest that, if there was a reasonable possibility of needing a blood transfusion, the patient (or the patient's legal support representative) was given the [facility] standardized written summary, pursuant to the Aurelio Jimbo Blood Safety Act ([place] Health and Safety Code # 1645, as amended). I attest that I re-evaluated the patient just prior to the surgery and that there has been no change in the patient's H&P, except as documented below: KIERSTEN DAVIES Jun 12, 2016 08:35
--- NOTE | 2016-06-12 08:53 | General Progress Note ---
Assessment/Plan Assessment/Plan Assessment - DURANT/cirrhosis - black stools - anemia with drop in H&H - DM - h/o Gt - removed - No IV access Recommendations - monitor H&H - Transfuse PRN - EGD cancelled/postponed due to lack of IV access - PPI - PICC line Subjective Allergies: Coded Allergies: PENICILLINS (Unverified Allergy, Unknown, 03/22/15) Subjective Seen in GI lab NPO for EGD No IV line Failed multiple attempts at IV line by nursing staffing coordinator and by anesthesiologist EGD cancelled due to lack of IV access Objective Last 24 Hour Vital Signs Date Time Temp Pulse Resp B/P Pulse Ox O2 Delivery O2 Flow Rate FiO2 06/12/16 08:15 97.5 87 21 172/83 97 Room Air 06/12/16 07:36 89 18 Room Air 06/12/16 04:40 97.6 82 20 153/79 100 Room Air 06/12/16 00:00 97.5 82 20 158/71 100 Room Air 06/11/16 20:30 69 139/62 06/11/16 19:22 76 18 Room Air 21 06/11/16 19:00 97.3 79 20 142/76 100 Room Air 06/11/16 15:56 97.3 69 20 139/62 99 Room Air 06/11/16 11:52 97.5 70 19 148/78 99 Room Air Intake and Output 06/11/16 06/12/16 19:00 07:00 Intake Total 1261 ml 120 ml Output Total 650 ml 1400 ml Balance 611 ml -1280 ml Intake Oral 420 ml 120 ml IV Total 841 ml Output Urine Total 650 ml 1400 ml Laboratory Tests 06/12/16 06:15: White Blood Count 4.8, Red Blood Count 2.86L, Hemoglobin 8.6L, Hematocrit 26.2L , Mean Corpuscular Volume 92, Mean Corpuscular Hemoglobin 30.2, Mean Corpuscular Hemoglobin Concent 33.0, Red Cell Distribution Width 12.7, Platelet Count 98L, Mean Platelet Volume 6.4L, Neutrophils (%) (Auto) , Lymphocytes (%) ( Auto) , Monocytes (%) (Auto) , Eosinophils (%) (Auto) , Basophils (%) (Auto) , Differential Total Cells Counted 100, Neutrophils % (Manual) 61, Lymphocytes % ( Manual) 26, Monocytes % (Manual) 7, Eosinophils % (Manual) 6H, Basophils % ( Manual) 0, Band Neutrophils 0, Platelet Estimate DecreasedL, Platelet Morphology Normal, Hypochromasia 2+, Anisocytosis 1+, Sodium Level 136, Potassium Level 4.0, Chloride Level 102, Carbon Dioxide Level 18L, Anion Gap 16H , Blood Urea Nitrogen 19, Creatinine 1.0H, Estimat Glomerular Filtration Rate , Glucose Level 105, Calcium Level 10.1, Troponin I < 0.30, Pro-B-Type Natriuretic Peptide 2612H, Alpha Fetoprotein [Pending] Height (Feet): 5 Height (Inches): 4.00 Weight (Pounds): 280 Objective WDWN WW NCAT supple CTA RRR Abd soft NT ND no edema non focal KIERSTEN DAVIES Jun 12, 2016 08:53
[2016-06-12] MEDS ORDERED: Heparin 2000 units/Ns 1000ml 1,000 ML ONE (09:07)
[2016-06-12] MEDS ORDERED: Lidocaine 1% Plain 30 ml INJ ONE (09:07)
[2016-06-12] MEDS: Metoprolol Tartrate 12.5mg TAB ORAL SCH ×2 (11:09→21:07)
[2016-06-12] MEDS: Nystatin Powder 100,000 units/gm 15gm TOPIC SCH ×3 (11:10→18:00)
[2016-06-12 12:15] VITALS: BP 146/68
--- NOTE | 2016-06-12 14:20 | Diagnostic Imaging Report ---
Indications: Needs long-term IV access Technique: Ultrasound confirms patent compressible left brachial vein. Total sterile technique, including sterile probe cover and sterile gel, hat, mask,, sterile gown, large sterile drape, and preparation with 2% chlorhexidine utilized. Local anesthesia with 1% lidocaine. Under real-time ultrasound guidance, puncture brachial vein using 21-gauge needle, documented and archived, passage 0.018 guidewire under direct fluoroscopy, which was used to determine appropriate catheter length, exchange for 5 Kitt[place] peel-away sheath. 5 [place] Bard dual-lumen power PICC cut to 40 cm. It was inserted through the peel-away sheath. Peel-away sheath and guidewire removed. Catheter fixed to the skin. Both catheter ports aspirated and flushed. Patient tolerated procedure well, without immediate complication. Digital radiograph documents satisfactory catheter tip position, at the cavoatrial junction. Total fluoroscopy time 0.4 minutes. Total dose area product 12 dGycm2 Impression: Successful placement of left arm PICC under sonographic and fluoroscopic guidance, as described above.
--- NOTE | 2016-06-12 15:11 | Wound Nurse Progress Note ---
Wound RN Progress Note Wound Consult Reassessed this Pt today. stage III on sacral area and buttock area resolved. pictures taken. will cont applying Triad cream to area for skin barrier. Pt kept clean and dry. will cont to monitor. FAIZAN CRUZ RN Jun 12, 2016 15:11
--- NOTE | 2016-06-12 15:16 | Infectious Diseases Prog Note ---
Assessment/Plan Assessment/Plan ASSESSMENT: 76 y/o female with: // CONS bacteremia 2/4, probable contaminant - h/o CONS contaminant bacteremia // Recurrent complicated ESBL(+) E.coli + K.pneumoniae UTI - US: normal echogenicity. No hydronephrosis. No focal abnormality - CT A/P 09/2015: 9 x 4 mm left proximal ureteral stone with mild left hydronephrosis. Tiny nonobstructive stone in the mid pole the left kidney. Bladder wall thickening, suspected cystitis - h/o ESBL(+) E.coli, P.mirabilis, K.oxytoca, C.albicans // Multiple superficial decubiti POA, not grossly infected // Afebrile without leukocytosis // Acute anemia / melena - EGD: pending // Acute encephalopathy, m/l UTI // ARF on CKD3 - improved // Hypercalcemia // DM2 // Obesity // MRSA, VRE colonized // PCN allergy - previously tolerated meropenem // Full Code PLAN: - DC planning for IV invanz x6 days. Will continue invanz d# 2 ( ABX d# 4 / ) while still inpt ( 06/11 SP IV vancomycin, meropenem d# 3 ) - EGD per GI - f/u cultures - monitor CBC, temperatures - monitor BMP Subjective Allergies: Coded Allergies: PENICILLINS (Unverified Allergy, Unknown, 03/22/15) Subjective remains afebrile cultures noted EGD rescheduled d/t lack of IV access Objective Vital Signs Last 24 Hour Vital Signs Date Time Temp Pulse Resp B/P Pulse Ox O2 Delivery O2 Flow Rate FiO2 06/12/16 12:15 97.6 93 20 146/68 97 Room Air 06/12/16 11:10 172/83 06/12/16 11:09 87 172/83 06/12/16 08:15 97.5 87 21 172/83 97 Room Air 06/12/16 07:36 89 18 Room Air 06/12/16 04:40 97.6 82 20 153/79 100 Room Air 06/12/16 00:00 97.5 82 20 158/71 100 Room Air 06/11/16 20:30 69 139/62 06/11/16 19:22 76 18 Room Air 21 06/11/16 19:00 97.3 79 20 142/76 100 Room Air 06/11/16 15:56 97.3 69 20 139/62 99 Room Air Height (Feet): 5 Height (Inches): 4.00 Weight (Pounds): 280 General Appearance: no acute distress Respiratory/Chest: no respiratory distress Cardiovascular: normal rate, regular rhythm Abdomen: normal bowel sounds, soft, non tender, non distended Laboratory Tests Test 06/12/16 06:15 White Blood Count 4.8 K/UL (4.8-10.8) Red Blood Count 2.86 M/UL (4.20-5.40) L Hemoglobin 8.6 G/DL (12.0-16.0) L Hematocrit 26.2 % (37.0-47.0) L Mean Corpuscular Volume 92 FL (80-99) Mean Corpuscular Hemoglobin 30.2 PG (27.0-31.0) Mean Corpuscular Hemoglobin Concent 33.0 G/DL (32.0-36.0) Red Cell Distribution Width 12.7 % (11.6-14.8) Platelet Count 98 K/UL (150-450) L Mean Platelet Volume 6.4 FL (6.5-10.1) L Neutrophils (%) (Auto) % (45.0-75.0) Lymphocytes (%) (Auto) % (20.0-45.0) Monocytes (%) (Auto) % (1.0-10.0) Eosinophils (%) (Auto) % (0.0-3.0) Basophils (%) (Auto) % (0.0-2.0) Differential Total Cells Counted 100 Neutrophils % (Manual) 61 % (45-75) Lymphocytes % (Manual) 26 % (20-45) Monocytes % (Manual) 7 % (1-10) Eosinophils % (Manual) 6 % (0-3) H Basophils % (Manual) 0 % (0-2) Band Neutrophils 0 % (0-8) Platelet Estimate Decreased L Platelet Morphology Normal Hypochromasia 2+ Anisocytosis 1+ Sodium Level 136 mEQ/L (135-145) Potassium Level 4.0 mEQ/L (3.4-4.9) Chloride Level 102 mEQ/L (98-107) Carbon Dioxide Level 18 mEQ/L (20-30) L Anion Gap 16 (5-15) H Blood Urea Nitrogen 19 mg/dL (7-23) Creatinine 1.0 mg/dL (0.5-0.9) H Estimat Glomerular Filtration Rate mL/min (>60) Glucose Level 105 mg/dL (74-106) Calcium Level 10.1 mg/dL (8.6-10.2) Troponin I < 0.30 ng/mL (<=0.30) Pro-B-Type Natriuretic Peptide 2612 pg/mL (0-450) H Alpha Fetoprotein Pending Hepatitis A IgM Antibody Pending Hepatitis B Surface Antigen Pending Hepatitis B Core IgM Antibody Pending Hepatitis C Antibody Pending HIV (1&2) Antibody Rapid Negative (NEGATIVE) Current Medications Medications (Trade) Dose Ordered Sig/Pavel Route PRN Reason Start Time Stop Time Status Last Admin Dose Admin Acetaminophen (Tylenol) 650 mg Q4H PRN ORAL fever 06/09/16 20:45 07/09/16 20:44 Albuterol/ Ipratropium (DuoNeb 0.5-3(2.5)mg/3ml) 3 ml Q4H PRN HHN Shortness of Breath 06/09/16 20:30 06/14/16 20:29 Clonidine HCl (Catapres) 0.1 mg Q6H PRN ORAL for SBP >160 06/09/16 23:00 07/09/16 22:59 06/12/16 11:10 Dextrose (Dextrose 50%) STAT PRN IV Hypoglycemia 06/09/16 20:45 07/09/16 20:44 Ertapenem/Sodium Chloride (INVanz/Sodium Chloride) 55 ml @ 110 mls/hr Q24H IVPB 06/11/16 21:00 06/16/16 20:59 06/11/16 20:30 Insulin Aspart (NovoLOG) BEFORE MEALS AND HS SUBQ 06/09/16 21:00 07/09/16 20:59 06/11/16 16:54 Metoprolol Tartrate (Lopressor) 12.5 mg EVERY 12 HOURS ORAL 06/09/16 21:00 07/09/16 20:59 06/12/16 11:09 Morphine Sulfate (Morphine Sulfate) 2 mg Q4H PRN IVP Moderate Pain (Pain Scale 4-6) 06/09/16 21:00 06/16/16 20:59 06/11/16 02:16 Nitroglycerin (Ntg) 0.4 mg Q5MIN PRN SL Prn Chest Pain 06/09/16 20:30 07/09/16 20:29 Nystatin (Nystop Powder) 1 applic THREE TIMES A DAY TOPIC 06/10/16 09:00 07/10/16 08:59 06/12/16 13:45 Ondansetron HCl (Zofran) 4 mg Q6H PRN IVP Nausea & Vomiting 06/09/16 20:45 07/09/16 20:44 Pantoprazole (Protonix) 40 mg Q24HRS IVP 06/11/16 23:00 07/11/16 22:59 06/12/16 00:04 Polyethylene Glycol (Miralax) 17 gm DAILYPRN PRN ORAL Constipation 06/09/16 20:45 07/09/16 20:44 Sodium Chloride (Sodium Chloride 1000ml bag) 1,000 ml @ 75 mls/hr [id number] IVLG 06/09/16 20:45 07/09/16 20:44 06/12/16 15:09 Temazepam 15 mg 15 mg HSPRN PRN ORAL Insomnia 06/09/16 20:45 06/16/16 20:44 KAYLA LOUIS Jun 12, 2016 15:16
[2016-06-12 16:00] VITALS: BP 152/75
--- NOTE | 2016-06-12 16:03 | Pulmonology Progress Note ---
Assessment/Plan Problems: (1) Severe sepsis (2) RAMYA (acute kidney injury) (3) Diabetes mellitus (4) Obesity (5) Cirrhosis (6) Uncontrolled diabetes mellitus Assessment/Plan de-escalate iv antibiotics feeling better check cultures, MRSA, coag - in blood, MRSA nares/etc Bs controlled iv fluids check electrolytes antibiotics by ID dvt prophylaxis got PICC line today Subjective ROS Limited/Unobtainable: No Interval Events: EGD canceled b/o lack of IV line Allergies: Coded Allergies: PENICILLINS (Unverified Allergy, Unknown, 03/22/15) Objective Last 24 Hour Vital Signs Date Time Temp Pulse Resp B/P Pulse Ox O2 Delivery O2 Flow Rate FiO2 06/12/16 12:15 97.6 93 20 146/68 97 Room Air 06/12/16 11:10 172/83 06/12/16 11:09 87 172/83 06/12/16 08:15 97.5 87 21 172/83 97 Room Air 06/12/16 07:36 89 18 Room Air 21 06/12/16 04:40 97.6 82 20 153/79 100 Room Air 06/12/16 00:00 97.5 82 20 158/71 100 Room Air 06/11/16 20:30 69 139/62 06/11/16 19:22 76 18 Room Air 21 06/11/16 19:00 97.3 79 20 142/76 100 Room Air Intake and Output 06/11/16 06/12/16 19:00 07:00 Intake Total 1261 ml 120 ml Output Total 650 ml 1400 ml Balance 611 ml -1280 ml Intake Oral 420 ml 120 ml IV Total 841 ml Output Urine Total 650 ml 1400 ml Objective Lines, tubes and drains: peripheral, HEENT: normocephalic, atraumatic Neck: non-tender, normal alignment Respiratory/Chest: chest wall non-tender, lungs clear Cardiovascular/Chest: normal peripheral pulses, normal rate Abdomen: normal bowel sounds, non tender Genitourinary/Rectal: normal genital exam, normal rectal exam Extremities: normal range of motion, non-tender General Appearance: WD/WN HEENT: normocephalic Respiratory/Chest: chest wall non-tender, lungs clear Genitourinary: normal external genitalia Extremities: no cyanosis Skin: no rash Laboratory Tests 06/12/16 06:15: White Blood Count 4.8, Red Blood Count 2.86L, Hemoglobin 8.6L, Hematocrit 26.2L , Mean Corpuscular Volume 92, Mean Corpuscular Hemoglobin 30.2, Mean Corpuscular Hemoglobin Concent 33.0, Red Cell Distribution Width 12.7, Platelet Count 98L, Mean Platelet Volume 6.4L, Neutrophils (%) (Auto) , Lymphocytes (%) ( Auto) , Monocytes (%) (Auto) , Eosinophils (%) (Auto) , Basophils (%) (Auto) , Differential Total Cells Counted 100, Neutrophils % (Manual) 61, Lymphocytes % ( Manual) 26, Monocytes % (Manual) 7, Eosinophils % (Manual) 6H, Basophils % ( Manual) 0, Band Neutrophils 0, Platelet Estimate DecreasedL, Platelet Morphology Normal, Hypochromasia 2+, Anisocytosis 1+, Sodium Level 136, Potassium Level 4.0, Chloride Level 102, Carbon Dioxide Level 18L, Anion Gap 16H , Blood Urea Nitrogen 19, Creatinine 1.0H, Estimat Glomerular Filtration Rate , Glucose Level 105, Calcium Level 10.1, Troponin I < 0.30, Pro-B-Type Natriuretic Peptide 2612H, Alpha Fetoprotein [Pending], Hepatitis A IgM Antibody [Pending], Hepatitis B Surface Antigen [Pending], Hepatitis B Core IgM Antibody [Pending], Hepatitis C Antibody [Pending], HIV (1&2) Antibody Rapid Negative Current Medications Medications (Trade) Dose Ordered Sig/Pavel Route PRN Reason Start Time Stop Time Status Last Admin Dose Admin Acetaminophen (Tylenol) 650 mg Q4H PRN ORAL fever 06/09/16 20:45 07/09/16 20:44 Albuterol/ Ipratropium (DuoNeb 0.5-3(2.5)mg/3ml) 3 ml Q4H PRN HHN Shortness of Breath 06/09/16 20:30 06/14/16 20:29 Clonidine HCl (Catapres) 0.1 mg Q6H PRN ORAL for SBP >160 06/09/16 23:00 07/09/16 22:59 06/12/16 11:10 Dextrose (Dextrose 50%) STAT PRN IV Hypoglycemia 06/09/16 20:45 07/09/16 20:44 Ertapenem/Sodium Chloride (INVanz/Sodium Chloride) 55 ml @ 110 mls/hr Q24H IVPB 06/11/16 21:00 06/16/16 20:59 06/11/16 20:30 Insulin Aspart (NovoLOG) BEFORE MEALS AND HS SUBQ 06/09/16 21:00 07/09/16 20:59 06/11/16 16:54 Metoprolol Tartrate (Lopressor) 12.5 mg EVERY 12 HOURS ORAL 06/09/16 21:00 07/09/16 20:59 06/12/16 11:09 Morphine Sulfate (Morphine Sulfate) 2 mg Q4H PRN IVP Moderate Pain (Pain Scale 4-6) 06/09/16 21:00 06/16/16 20:59 06/11/16 02:16 Nitroglycerin (Ntg) 0.4 mg Q5MIN PRN SL Prn Chest Pain 06/09/16 20:30 07/09/16 20:29 Nystatin (Nystop Powder) 1 applic THREE TIMES A DAY TOPIC 06/10/16 09:00 07/10/16 08:59 06/12/16 13:45 Ondansetron HCl (Zofran) 4 mg Q6H PRN IVP Nausea & Vomiting 06/09/16 20:45 07/09/16 20:44 Pantoprazole (Protonix) 40 mg Q24HRS IVP 06/11/16 23:00 07/11/16 22:59 06/12/16 00:04 Polyethylene Glycol (Miralax) 17 gm DAILYPRN PRN ORAL Constipation 06/09/16 20:45 07/09/16 20:44 Sodium Chloride (Sodium Chloride 1000ml bag) 1,000 ml @ 75 mls/hr [id number] IVLG 06/09/16 20:45 07/09/16 20:44 06/12/16 15:09 Temazepam 15 mg 15 mg HSPRN PRN ORAL Insomnia 06/09/16 20:45 06/16/16 20:44 DIONI TRIANA Jun 12, 2016 16:03
--- NOTE | 2016-06-12 17:30 | Internal Med Progress Note ---
Subjective Date of Service: Jun 12, 2016 Physician Name Jed Pond Attending Physician Rl Tee MD Current Medications Medications (Trade) Dose Ordered Sig/Pavel Route PRN Reason Start Time Stop Time Status Last Admin Dose Admin Acetaminophen (Tylenol) 650 mg Q4H PRN ORAL fever 06/09/16 20:45 07/09/16 20:44 Albuterol/ Ipratropium (DuoNeb 0.5-3(2.5)mg/3ml) 3 ml Q4H PRN HHN Shortness of Breath 06/09/16 20:30 06/14/16 20:29 Clonidine HCl (Catapres) 0.1 mg Q6H PRN ORAL for SBP >160 06/09/16 23:00 07/09/16 22:59 06/12/16 11:10 Dextrose (Dextrose 50%) STAT PRN IV Hypoglycemia 06/09/16 20:45 07/09/16 20:44 Ertapenem/Sodium Chloride (INVanz/Sodium Chloride) 55 ml @ 110 mls/hr Q24H IVPB 06/11/16 21:00 06/16/16 20:59 06/11/16 20:30 Insulin Aspart (NovoLOG) BEFORE MEALS AND HS SUBQ 06/09/16 21:00 07/09/16 20:59 06/11/16 16:54 Metoprolol Tartrate (Lopressor) 12.5 mg EVERY 12 HOURS ORAL 06/09/16 21:00 07/09/16 20:59 06/12/16 11:09 Morphine Sulfate (Morphine Sulfate) 2 mg Q4H PRN IVP Moderate Pain (Pain Scale 4-6) 06/09/16 21:00 06/16/16 20:59 06/11/16 02:16 Nitroglycerin (Ntg) 0.4 mg Q5MIN PRN SL Prn Chest Pain 06/09/16 20:30 07/09/16 20:29 Nystatin (Nystop Powder) 1 applic THREE TIMES A DAY TOPIC 06/10/16 09:00 07/10/16 08:59 06/12/16 13:45 Ondansetron HCl (Zofran) 4 mg Q6H PRN IVP Nausea & Vomiting 06/09/16 20:45 07/09/16 20:44 Pantoprazole (Protonix) 40 mg Q24HRS IVP 06/11/16 23:00 07/11/16 22:59 06/12/16 00:04 Polyethylene Glycol (Miralax) 17 gm DAILYPRN PRN ORAL Constipation 06/09/16 20:45 07/09/16 20:44 Sodium Chloride (Sodium Chloride 1000ml bag) 1,000 ml @ 75 mls/hr [id number] IVLG 06/09/16 20:45 07/09/16 20:44 06/12/16 15:09 Temazepam 15 mg 15 mg HSPRN PRN ORAL Insomnia 06/09/16 20:45 06/16/16 20:44 Allergies: Coded Allergies: PENICILLINS (Unverified Allergy, Unknown, 03/22/15) ROS Limited/Unobtainable: No Constitutional: Reports: no symptoms HEENT: Reports: no symptoms Cardiovascular: Reports: no symptoms Respiratory: Reports: no symptoms Gastrointestinal/Abdominal: Reports: black stools Genitourinary: Reports: no symptoms Neurologic/Psychiatric: Reports: no symptoms Subjective 76 YO F admitted with altered mental status, now UTI. Cover for Int Med-Dr Tee. Await endoscopy in am 06/13/16. Objective Last Vital Signs Date Time Temp Pulse Resp B/P Pulse Ox O2 Delivery O2 Flow Rate FiO2 06/12/16 16:00 97.7 71 18 152/75 100 Room Air 06/12/16 07:36 21 Laboratory Tests Test 06/12/16 06:15 White Blood Count 4.8 K/UL (4.8-10.8) Red Blood Count 2.86 M/UL (4.20-5.40) L Hemoglobin 8.6 G/DL (12.0-16.0) L Hematocrit 26.2 % (37.0-47.0) L Mean Corpuscular Volume 92 FL (80-99) Mean Corpuscular Hemoglobin 30.2 PG (27.0-31.0) Mean Corpuscular Hemoglobin Concent 33.0 G/DL (32.0-36.0) Red Cell Distribution Width 12.7 % (11.6-14.8) Platelet Count 98 K/UL (150-450) L Mean Platelet Volume 6.4 FL (6.5-10.1) L Neutrophils (%) (Auto) % (45.0-75.0) Lymphocytes (%) (Auto) % (20.0-45.0) Monocytes (%) (Auto) % (1.0-10.0) Eosinophils (%) (Auto) % (0.0-3.0) Basophils (%) (Auto) % (0.0-2.0) Differential Total Cells Counted 100 Neutrophils % (Manual) 61 % (45-75) Lymphocytes % (Manual) 26 % (20-45) Monocytes % (Manual) 7 % (1-10) Eosinophils % (Manual) 6 % (0-3) H Basophils % (Manual) 0 % (0-2) Band Neutrophils 0 % (0-8) Platelet Estimate Decreased L Platelet Morphology Normal Hypochromasia 2+ Anisocytosis 1+ Sodium Level 136 mEQ/L (135-145) Potassium Level 4.0 mEQ/L (3.4-4.9) Chloride Level 102 mEQ/L (98-107) Carbon Dioxide Level 18 mEQ/L (20-30) L Anion Gap 16 (5-15) H Blood Urea Nitrogen 19 mg/dL (7-23) Creatinine 1.0 mg/dL (0.5-0.9) H Estimat Glomerular Filtration Rate mL/min (>60) Glucose Level 105 mg/dL (74-106) Calcium Level 10.1 mg/dL (8.6-10.2) Troponin I < 0.30 ng/mL (<=0.30) Pro-B-Type Natriuretic Peptide 2612 pg/mL (0-450) H Alpha Fetoprotein Pending Hepatitis A IgM Antibody Pending Hepatitis B Surface Antigen Pending Hepatitis B Core IgM Antibody Pending Hepatitis C Antibody Pending HIV (1&2) Antibody Rapid Negative (NEGATIVE) Intake and Output 06/11/16 06/12/16 19:00 07:00 Intake Total 1261 ml 120 ml Output Total 650 ml 1400 ml Balance 611 ml -1280 ml Intake Oral 420 ml 120 ml IV Total 841 ml Output Urine Total 650 ml 1400 ml Objective General Appearance: WD/WN, no apparent distress, alert, obese EENT: PERRL/EOMI, normal ENT inspection Neck: non-tender, normal alignment, supple Cardiovascular: normal peripheral pulses, normal rate, regular rhythm, no gallop/murmur, no JVD Respiratory/Chest: chest wall non-tender, lungs clear, normal breath sounds, no respiratory distress, no accessory muscle use Abdomen: normal bowel sounds, non tender, soft, no organomegaly, no mass Extremities: normal range of motion, non-tender 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 coli and ESBL kleb pneumo. See ID note. Cont vanco and meropenem for per ID (5) Diabetes mellitus Assessment & Plan: Cont novolog sliding scale. (6) Hypertension Assessment & Plan: Cont metoprolol (7) Hypercholesteremia (8) Sleep apnea, obstructive (9) GERD (gastroesophageal reflux disease) (10) Cardiomegaly (11) Obesity (12) Cirrhosis (13) Gastrointestinal hemorrhage Assessment & Plan: Await endoscopy am 06/13/16. (14) Anemia Status: not improved JED POND Jun 12, 2016 17:30
[2016-06-12 19:00] VITALS: BP 160/90
[2016-06-12] MEDS: Ertapenem 1 GM in NS 55 ML IVPB SCH (21:07)
[2016-06-13] VITALS (10 sets, daily range): BP systolic 130–162; BP diastolic 55–86
[2016-06-13 05:11] LABS: MEAN CORPUSCULAR HEMOGLOBIN 30.6 PG (27.0-31.0); MEAN CORPUSCULAR HGB CONC 32.8 G/DL (32.0-36.0); MEAN CORPUSCULAR VOLUME 93 FL (80-99); MEAN PLATELET VOLUME 7.8 FL (6.5-10.1); PLATELET COUNT 93 K/UL (150-450); RED BLOOD COUNT 2.63 M/UL (4.20-5.40); RED CELL DISTRIBUTION WIDTH 13.5 % (11.6-14.8); WHITE BLOOD COUNT 3.9 K/UL (4.8-10.8)
[2016-06-13 05:33] LABS: ANION GAP 15 (5-15); CALCIUM 9.1 mg/dL (8.6-10.2); CARBON DIOXIDE 19 mEQ/L (20-30); CHLORIDE 105 mEQ/L (98-107); HEMOLYSIS 3; POTASSIUM 3.7 mEQ/L (3.4-4.9); SODIUM 139 mEQ/L (135-145)
[2016-06-13] MEDS: NovoLOG Insulin Flexpen SUBQ SCH ×4 (06:30→21:05)
[2016-06-13] MEDS ORDERED: NS 550ML IV ONE (06:55)
[2016-06-13] MEDS ORDERED: Propofol 10mg/ml 20ml IV ONE (07:00)
--- NOTE | 2016-06-13 07:09 | Pre-Procedure Note/Attestation ---
Pre-Procedure Note/Attestation Complete Prior to Procedure Planned Procedure: not applicable Procedure Narrative: egd Indications for Procedure Pre-Operative Diagnosis: GIB, Anemia Attestation I attest that I discussed the nature of the procedure; its benefits; risks and complications; and alternatives (and the risks and benefits of such alternatives ), prior to the procedure, with the patient (or the patient's legal patient accounting representative). I attest that, if there was a reasonable possibility of needing a blood transfusion, the patient (or the patient's legal patient accounting representative) was given the [facility] standardized written summary, pursuant to the Aurelio Jimbo Blood Safety Act ([place] Health and Safety Code # 1645, as amended). I attest that I re-evaluated the patient just prior to the surgery and that there has been no change in the patient's H&P, except as documented below: KIERSTEN DAVIES Jun 13, 2016 07:09
--- NOTE | 2016-06-13 07:18 | General Progress Note ---
Assessment/Plan Assessment/Plan Assessment - DURANT/cirrhosis - black stools - ? due to PO FeSO4 - anemia with drop in H&H - ? dilutional - DM - h/o Gt - removed Recommendations - monitor H&H - Transfuse PRN - EGD today - PPI - PICC line POST EGD ADDENDUM Endoscopy normal - no bleeding, ulcers, or varicies resume PO diet will consider colon if H&H continues to fall Subjective Allergies: Coded Allergies: PENICILLINS (Unverified Allergy, Unknown, 03/22/15) Subjective Seen in GI lab NPO for EGD no abd complaints labs noted - AFP pending Objective Last 24 Hour Vital Signs Date Time Temp Pulse Resp B/P Pulse Ox O2 Delivery O2 Flow Rate FiO2 06/13/16 04:00 98.7 87 20 157/69 95 Room Air 06/13/16 00:00 97.9 61 20 139/69 97 Room Air 06/12/16 21:07 80 160/90 06/12/16 19:54 80 20 Room Air 21 06/12/16 19:36 160/90 06/12/16 19:00 97.7 85 18 160/90 Room Air 06/12/16 16:00 97.7 71 18 152/75 100 Room Air 06/12/16 12:15 97.6 93 20 146/68 97 Room Air 06/12/16 11:10 172/83 06/12/16 11:09 87 172/83 06/12/16 08:15 97.5 87 21 172/83 97 Room Air 06/12/16 07:36 89 18 Room Air 21 Intake and Output 06/12/16 06/13/16 19:00 07:00 Intake Total 450 ml 700 ml Output Total 800 ml 950 ml Balance -350 ml -250 ml Intake Oral 420 ml IV Total 450 ml 280 ml Output Urine Total 800 ml 950 ml # Bowel Movements 2 Laboratory Tests 06/13/16 04:00: White Blood Count 3.9L, Red Blood Count 2.63L, Hemoglobin 8.0L, Hematocrit 24.5L , Mean Corpuscular Volume 93, Mean Corpuscular Hemoglobin 30.6, Mean Corpuscular Hemoglobin Concent 32.8, Red Cell Distribution Width 13.5, Platelet Count 93L, Mean Platelet Volume 7.8, Neutrophils (%) (Auto) , Lymphocytes (%) ( Auto) , Monocytes (%) (Auto) , Eosinophils (%) (Auto) , Basophils (%) (Auto) , Neutrophils % (Manual) [Pending], Lymphocytes % (Manual) [Pending], Platelet Estimate [Pending], Platelet Morphology [Pending], Sodium Level 139, Potassium Level 3.7, Chloride Level 105, Carbon Dioxide Level 19L, Anion Gap 15, Blood Urea Nitrogen 17, Creatinine 1.0H, Estimat Glomerular Filtration Rate , Glucose Level 92, Calcium Level 9.1 06/13/16 06:50: Stool Occult Blood [Pending] Height (Feet): 5 Height (Inches): 5.00 Weight (Pounds): 280 Objective WDWN WW NCAT supple CTA RRR Abd soft NT ND no edema non focal KIERSTEN DAVIES Jun 13, 2016 07:18
--- NOTE | 2016-06-13 07:21 | Endoscopy Procedure Note ---
Endoscopy Procedure Note Indication for Procedure: black stools Procedures Performed: EGD Operative Findings/Diagnosis: nl Specimen: none Pt Tolerated Procedure Well: Yes Estimated Blood Loss: none Anesthesiologist: Timur Anesthesia: moderate sedation Medication Given: see anesthesia record Implant(s) used?: No 50 yrs or older w/o bx or poly: Not Applicable 10yrs. F/U not recommended: Not Applicable If not recommended, why?: KIERSTEN DAVIES Jun 13, 2016 07:21
--- NOTE | 2016-06-13 07:23 | Brief Operative Note ---
Immediate Post Operative Note Operative Note Chief Complaint: black stools Pre-op Diagnosis: GIB, Anemia Procedure: EGD Post-op Diagnosis: nl Surgeon: rsosi Anesthesiologist: Timur Anesthesia: MAC Specimen: none Complications: none Condition: stable Estimated Blood Loss: none Drains: none Implant(s) used?: No KIERSTEN DAVIES Jun 13, 2016 07:23
--- NOTE | 2016-06-13 07:34 | Anethesia Preoperative Eval ---
Anesthesia Pre-op PMH/ROS General Date of Evaluation: Jun 13, 2016 ASA Score: ASA 4 Mallampati Score Class I : Soft palate, uvula, fauces, pillars visible Class II: Soft palate, uvula, fauces visible Class III: Soft palate, base of uvula visible Class IV: Only hard plate visible Mallampati Classification: Class II Allergies: Coded Allergies: PENICILLINS (Unverified Allergy, Unknown, 03/22/15) Anesthesia Pre-op Phys. Exam Physician Exam Last Vital Signs Date Time Temp Pulse Resp B/P Pulse Ox O2 Delivery O2 Flow Rate FiO2 06/13/16 07:25 98.7 54 14 130/55 100 Nasal Cannula 3.0 06/12/16 19:54 21 Anesthesia Pre-op A/P Labs Hematology Test 06/13/16 04:00 White Blood Count 3.9 K/UL (4.8-10.8) L Red Blood Count 2.63 M/UL (4.20-5.40) L Hemoglobin 8.0 G/DL (12.0-16.0) L Hematocrit 24.5 % (37.0-47.0) L Mean Corpuscular Volume 93 FL (80-99) Mean Corpuscular Hemoglobin 30.6 PG (27.0-31.0) Mean Corpuscular Hemoglobin Concent 32.8 G/DL (32.0-36.0) Red Cell Distribution Width 13.5 % (11.6-14.8) Platelet Count 93 K/UL (150-450) L Mean Platelet Volume 7.8 FL (6.5-10.1) Neutrophils (%) (Auto) % (45.0-75.0) Lymphocytes (%) (Auto) % (20.0-45.0) Monocytes (%) (Auto) % (1.0-10.0) Eosinophils (%) (Auto) % (0.0-3.0) Basophils (%) (Auto) % (0.0-2.0) Neutrophils % (Manual) Pending Lymphocytes % (Manual) Pending Platelet Estimate Pending Platelet Morphology Pending Chemistry Test 06/13/16 04:00 Sodium Level 139 mEQ/L (135-145) Potassium Level 3.7 mEQ/L (3.4-4.9) Chloride Level 105 mEQ/L (98-107) Carbon Dioxide Level 19 mEQ/L (20-30) L Anion Gap 15 (5-15) Blood Urea Nitrogen 17 mg/dL (7-23) Creatinine 1.0 mg/dL (0.5-0.9) H Estimat Glomerular Filtration Rate mL/min (>60) Glucose Level 92 mg/dL (74-106) Calcium Level 9.1 mg/dL (8.6-10.2) Jeancarlos Ding MD Jun 13, 2016 07:34
--- NOTE | 2016-06-13 07:35 | Immediate Post-Op Evaluation ---
Immediate Post-Op Evalulation Immediate Post-Op Evalulation Procedure: egd Date of Evaluation: Jun 13, 2016 Nausea: No Vomiting: No Jeancarlos Ding MD Jun 13, 2016 07:35
[2016-06-13] MEDS: Nystatin Powder 100,000 units/gm 15gm TOPIC SCH ×3 (09:41→18:00)
[2016-06-13] MEDS: Metoprolol Tartrate 12.5mg TAB ORAL SCH ×2 (09:41→21:03)
[2016-06-13 11:33] LABS: EOSINOPHILS % (MANUAL) 5 % (0-3); LYMPHOCYTES % (MANUAL) 34 % (20-45); NEUTROPHILS % (MANUAL) 53 % (45-75); TOTAL CELLS COUNTED 100
[2016-06-13 11:34] LABS: ANISOCYTOSIS 1+; BAND NEUTROPHILS % (MANUAL) 0 % (0-8); BASOPHILS % (MANUAL) 0 % (0-2); PLATELET ESTIMATE DECREASED; PLATELET MORPHOLOGY NORMAL
--- NOTE | 2016-06-13 14:08 | Infectious Diseases Prog Note ---
Assessment/Plan Assessment/Plan ASSESSMENT: 76 y/o female with: // CONS bacteremia 2/4, probable contaminant - h/o CONS contaminant bacteremia // Recurrent complicated ESBL(+) E.coli + K.pneumoniae UTI - US: normal echogenicity. No hydronephrosis. No focal abnormality - CT A/P 09/2015: 9 x 4 mm left proximal ureteral stone with mild left hydronephrosis. Tiny nonobstructive stone in the mid pole the left kidney. Bladder wall thickening, suspected cystitis - h/o ESBL(+) E.coli, P.mirabilis, K.oxytoca, C.albicans // Multiple superficial decubiti POA, not grossly infected // Afebrile without leukocytosis // Acute anemia / melena - EGD: normal // Acute encephalopathy, m/l UTI // ARF on CKD3 - improved // Hypercalcemia // DM2 // Obesity // MRSA, VRE colonized // PCN allergy - previously tolerated meropenem // Full Code PLAN: - DC planning for IV invanz x5 days. Will continue invanz d# 3 ( ABX d# 5 / ) while still inpt ( 06/11 SP IV vancomycin, meropenem d# 3 ) - f/u cultures - monitor CBC, temperatures - monitor BMP Subjective Allergies: Coded Allergies: PENICILLINS (Unverified Allergy, Unknown, 03/22/15) Subjective remains afebrile SP EGD: nl Objective Vital Signs Last 24 Hour Vital Signs Date Time Temp Pulse Resp B/P Pulse Ox O2 Delivery O2 Flow Rate FiO2 06/13/16 11:51 98.7 79 21 137/66 97 Room Air 06/13/16 09:52 80 155/86 06/13/16 09:52 97.7 80 16 155/86 100 Room Air 06/13/16 09:41 58 162/70 06/13/16 08:18 82 18 Room Air 06/13/16 07:39 97.0 58 15 162/70 100 Nasal Cannula 3.0 06/13/16 07:35 61 14 145/69 100 Nasal Cannula 3.0 06/13/16 07:30 59 13 132/64 100 Nasal Cannula 3.0 06/13/16 07:25 98.7 54 14 130/55 100 Nasal Cannula 3.0 06/13/16 04:00 98.7 87 20 157/69 95 Room Air 06/13/16 00:00 97.9 61 20 139/69 97 Room Air 06/12/16 21:07 80 160/90 06/12/16 19:54 80 20 Room Air 21 06/12/16 19:36 160/90 06/12/16 19:00 97.7 85 18 160/90 Room Air 06/12/16 16:00 97.7 71 18 152/75 100 Room Air Height (Feet): 5 Height (Inches): 5.00 Weight (Pounds): 280 General Appearance: no acute distress Respiratory/Chest: no respiratory distress Cardiovascular: normal rate, regular rhythm Abdomen: normal bowel sounds, soft, non tender, non distended Laboratory Tests Test 06/13/16 04:00 06/13/16 06:50 White Blood Count 3.9 K/UL (4.8-10.8) L Red Blood Count 2.63 M/UL (4.20-5.40) L Hemoglobin 8.0 G/DL (12.0-16.0) L Hematocrit 24.5 % (37.0-47.0) L Mean Corpuscular Volume 93 FL (80-99) Mean Corpuscular Hemoglobin 30.6 PG (27.0-31.0) Mean Corpuscular Hemoglobin Concent 32.8 G/DL (32.0-36.0) Red Cell Distribution Width 13.5 % (11.6-14.8) Platelet Count 93 K/UL (150-450) L Mean Platelet Volume 7.8 FL (6.5-10.1) Neutrophils (%) (Auto) % (45.0-75.0) Lymphocytes (%) (Auto) % (20.0-45.0) Monocytes (%) (Auto) % (1.0-10.0) Eosinophils (%) (Auto) % (0.0-3.0) Basophils (%) (Auto) % (0.0-2.0) Differential Total Cells Counted 100 Neutrophils % (Manual) 53 % (45-75) Lymphocytes % (Manual) 34 % (20-45) Monocytes % (Manual) 8 % (1-10) Eosinophils % (Manual) 5 % (0-3) H Basophils % (Manual) 0 % (0-2) Band Neutrophils 0 % (0-8) Platelet Estimate Decreased L Platelet Morphology Normal Anisocytosis 1+ Sodium Level 139 mEQ/L (135-145) Potassium Level 3.7 mEQ/L (3.4-4.9) Chloride Level 105 mEQ/L (98-107) Carbon Dioxide Level 19 mEQ/L (20-30) L Anion Gap 15 (5-15) Blood Urea Nitrogen 17 mg/dL (7-23) Creatinine 1.0 mg/dL (0.5-0.9) H Estimat Glomerular Filtration Rate mL/min (>60) Glucose Level 92 mg/dL (74-106) Calcium Level 9.1 mg/dL (8.6-10.2) Stool Occult Blood Positive (NEGATIVE) Current Medications Medications (Trade) Dose Ordered Sig/Pavel Route PRN Reason Start Time Stop Time Status Last Admin Dose Admin Acetaminophen (Tylenol) 650 mg Q4H PRN ORAL fever 06/09/16 20:45 07/09/16 20:44 Albuterol/ Ipratropium (DuoNeb 0.5-3(2.5)mg/3ml) 3 ml Q4H PRN HHN Shortness of Breath 06/09/16 20:30 06/14/16 20:29 Clonidine HCl (Catapres) 0.1 mg Q6H PRN ORAL for SBP >160 06/09/16 23:00 07/09/16 22:59 06/12/16 19:36 Dextrose (Dextrose 50%) STAT PRN IV Hypoglycemia 06/09/16 20:45 07/09/16 20:44 Ertapenem/Sodium Chloride (INVanz/Sodium Chloride) 55 ml @ 110 mls/hr Q24H IVPB 06/11/16 21:00 06/16/16 20:59 06/12/16 21:07 Insulin Aspart (NovoLOG) BEFORE MEALS AND HS SUBQ 06/09/16 21:00 07/09/16 20:59 06/12/16 21:10 Metoprolol Tartrate (Lopressor) 12.5 mg EVERY 12 HOURS ORAL 06/09/16 21:00 07/09/16 20:59 06/13/16 09:41 Morphine Sulfate (Morphine Sulfate) 2 mg Q4H PRN IVP Moderate Pain (Pain Scale 4-6) 06/09/16 21:00 06/16/16 20:59 06/11/16 02:16 Nitroglycerin (Ntg) 0.4 mg Q5MIN PRN SL Prn Chest Pain 06/09/16 20:30 07/09/16 20:29 Nystatin (Nystop Powder) 1 applic THREE TIMES A DAY TOPIC 06/10/16 09:00 07/10/16 08:59 06/13/16 13:57 Ondansetron HCl (Zofran) 4 mg Q6H PRN IVP Nausea & Vomiting 06/09/16 20:45 07/09/16 20:44 Pantoprazole (Protonix) 40 mg Q24HRS IVP 06/11/16 23:00 07/11/16 22:59 06/12/16 22:19 Polyethylene Glycol (Miralax) 17 gm DAILYPRN PRN ORAL Constipation 06/09/16 20:45 07/09/16 20:44 Sodium Chloride (Sodium Chloride 1000ml bag) 1,000 ml @ 75 mls/hr [id number] IVLG 06/09/16 20:45 07/09/16 20:44 06/13/16 04:57 Temazepam 15 mg 15 mg HSPRN PRN ORAL Insomnia 06/09/16 20:45 06/16/16 20:44 KAYLA LOUIS Jun 13, 2016 14:08
--- NOTE | 2016-06-13 19:02 | Internal Med Progress Note ---
Subjective Date of Service: Jun 13, 2016 Physician Name Jed Guthrie Attending Physician Rl Tee MD Current Medications Medications (Trade) Dose Ordered Sig/Pavel Route PRN Reason Start Time Stop Time Status Last Admin Dose Admin Acetaminophen (Tylenol) 650 mg Q4H PRN ORAL fever 06/09/16 20:45 07/09/16 20:44 Albuterol/ Ipratropium (DuoNeb 0.5-3(2.5)mg/3ml) 3 ml Q4H PRN HHN Shortness of Breath 06/09/16 20:30 06/14/16 20:29 Clonidine HCl (Catapres) 0.1 mg Q6H PRN ORAL for SBP >160 06/09/16 23:00 07/09/16 22:59 06/12/16 19:36 Dextrose (Dextrose 50%) STAT PRN IV Hypoglycemia 06/09/16 20:45 07/09/16 20:44 Ertapenem/Sodium Chloride (INVanz/Sodium Chloride) 55 ml @ 110 mls/hr Q24H IVPB 06/11/16 21:00 06/16/16 20:59 06/12/16 21:07 Insulin Aspart (NovoLOG) BEFORE MEALS AND HS SUBQ 06/09/16 21:00 07/09/16 20:59 06/13/16 17:16 Metoprolol Tartrate (Lopressor) 12.5 mg EVERY 12 HOURS ORAL 06/09/16 21:00 07/09/16 20:59 06/13/16 09:41 Morphine Sulfate (Morphine Sulfate) 2 mg Q4H PRN IVP Moderate Pain (Pain Scale 4-6) 06/09/16 21:00 06/16/16 20:59 06/11/16 02:16 Nitroglycerin (Ntg) 0.4 mg Q5MIN PRN SL Prn Chest Pain 06/09/16 20:30 07/09/16 20:29 Nystatin (Nystop Powder) 1 applic THREE TIMES A DAY TOPIC 06/10/16 09:00 07/10/16 08:59 06/13/16 18:00 Ondansetron HCl (Zofran) 4 mg Q6H PRN IVP Nausea & Vomiting 06/09/16 20:45 07/09/16 20:44 Pantoprazole (Protonix) 40 mg Q24HRS IVP 06/11/16 23:00 07/11/16 22:59 06/12/16 22:19 Polyethylene Glycol (Miralax) 17 gm DAILYPRN PRN ORAL Constipation 06/09/16 20:45 07/09/16 20:44 Sodium Chloride (Sodium Chloride 1000ml bag) 1,000 ml @ 75 mls/hr [id number] IVLG 06/09/16 20:45 07/09/16 20:44 06/13/16 04:57 Temazepam 15 mg 15 mg HSPRN PRN ORAL Insomnia 06/09/16 20:45 06/16/16 20:44 Allergies: Coded Allergies: PENICILLINS (Unverified Allergy, Unknown, 03/22/15) ROS Limited/Unobtainable: No Constitutional: Reports: no symptoms HEENT: Reports: no symptoms Cardiovascular: Reports: no symptoms Respiratory: Reports: no symptoms Gastrointestinal/Abdominal: Reports: no symptoms Genitourinary: Reports: no symptoms Neurologic/Psychiatric: Reports: no symptoms Subjective 76 YO F admitted with altered mental status, now UTI. Cover for Int Med-Dr Tee. S/P endoscopy 06/13/16. Objective Last Vital Signs Date Time Temp Pulse Resp B/P Pulse Ox O2 Delivery O2 Flow Rate FiO2 06/13/16 16:00 97.9 82 20 137/60 98 Room Air 06/13/16 07:39 3.0 06/12/16 19:54 21 Laboratory Tests Test 06/13/16 04:00 06/13/16 06:50 White Blood Count 3.9 K/UL (4.8-10.8) L Red Blood Count 2.63 M/UL (4.20-5.40) L Hemoglobin 8.0 G/DL (12.0-16.0) L Hematocrit 24.5 % (37.0-47.0) L Mean Corpuscular Volume 93 FL (80-99) Mean Corpuscular Hemoglobin 30.6 PG (27.0-31.0) Mean Corpuscular Hemoglobin Concent 32.8 G/DL (32.0-36.0) Red Cell Distribution Width 13.5 % (11.6-14.8) Platelet Count 93 K/UL (150-450) L Mean Platelet Volume 7.8 FL (6.5-10.1) Neutrophils (%) (Auto) % (45.0-75.0) Lymphocytes (%) (Auto) % (20.0-45.0) Monocytes (%) (Auto) % (1.0-10.0) Eosinophils (%) (Auto) % (0.0-3.0) Basophils (%) (Auto) % (0.0-2.0) Differential Total Cells Counted 100 Neutrophils % (Manual) 53 % (45-75) Lymphocytes % (Manual) 34 % (20-45) Monocytes % (Manual) 8 % (1-10) Eosinophils % (Manual) 5 % (0-3) H Basophils % (Manual) 0 % (0-2) Band Neutrophils 0 % (0-8) Platelet Estimate Decreased L Platelet Morphology Normal Anisocytosis 1+ Sodium Level 139 mEQ/L (135-145) Potassium Level 3.7 mEQ/L (3.4-4.9) Chloride Level 105 mEQ/L (98-107) Carbon Dioxide Level 19 mEQ/L (20-30) L Anion Gap 15 (5-15) Blood Urea Nitrogen 17 mg/dL (7-23) Creatinine 1.0 mg/dL (0.5-0.9) H Estimat Glomerular Filtration Rate mL/min (>60) Glucose Level 92 mg/dL (74-106) Calcium Level 9.1 mg/dL (8.6-10.2) Stool Occult Blood Positive (NEGATIVE) Intake and Output 06/12/16 06/13/16 19:00 07:00 Intake Total 450 ml 1337.5 ml Output Total 800 ml 950 ml Balance -350 ml 387.5 ml Intake Oral 420 ml IV Total 450 ml 917.5 ml Output Urine Total 800 ml 950 ml # Bowel Movements 2 1 Objective General Appearance: WD/WN, no apparent distress, alert, obese EENT: PERRL/EOMI, normal ENT inspection Neck: non-tender, normal alignment, supple Cardiovascular: normal peripheral pulses, normal rate, regular rhythm, no gallop/murmur, no JVD Respiratory/Chest: chest wall non-tender, lungs clear, normal breath sounds, no respiratory distress, no accessory muscle use Abdomen: normal bowel sounds, non tender, soft, no organomegaly, no mass Extremities: normal range of motion, non-tender Neurologic: hopper filler II-XII grossly normal Skin: normal pigmentation, warm/dry Assessment/Plan Problem List: (1) Peripheral autonomic neuropathy due to diabetes mellitus (2) CHF (congestive heart failure) (3) Altered mental status (4) UTI (urinary tract infection) Assessment & Plan: ESBL E. coli and ESBL kleb pneumo. See ID note. Cont vanco and meropenem for per ID (5) Diabetes mellitus Assessment & Plan: Cont novolog sliding scale. (6) Hypertension Assessment & Plan: Cont metoprolol (7) Hypercholesteremia (8) Sleep apnea, obstructive (9) GERD (gastroesophageal reflux disease) (10) Cardiomegaly (11) Obesity (12) Cirrhosis (13) Gastrointestinal hemorrhage Assessment & Plan: S/P endoscopy 06/13/16 - See GI note.. (14) Anemia Status: JED Rodriguez Jun 13, 2016 19:02
[2016-06-13] MEDS: Ertapenem 1 GM in NS 55 ML IVPB SCH (21:04)
[2016-06-13] MEDS: Pantoprazole Inj IVP SCH (22:10)
--- NOTE | 2016-06-13 22:17 | Pulmonology Progress Note ---
Assessment/Plan Problems: (1) Severe sepsis (2) RAMYA (acute kidney injury) (3) Diabetes mellitus (4) Obesity (5) Cirrhosis (6) Uncontrolled diabetes mellitus Assessment/Plan de-escalate iv antibiotics feeling better check cultures, MRSA, coag - in blood, MRSA nares/etc Bs controlled iv fluids check electrolytes antibiotics by ID dvt prophylaxis got PICC line today Subjective Allergies: Coded Allergies: PENICILLINS (Unverified Allergy, Unknown, 03/22/15) Objective Last 24 Hour Vital Signs Date Time Temp Pulse Resp B/P Pulse Ox O2 Delivery O2 Flow Rate FiO2 06/13/16 21:03 80 137/69 06/13/16 20:32 83 18 Room Air 06/13/16 19:00 97.9 80 20 137/69 98 Room Air 06/13/16 16:00 97.9 82 20 137/60 98 Room Air 06/13/16 11:51 98.7 79 21 137/66 97 Room Air 06/13/16 09:52 80 155/86 06/13/16 09:52 97.7 80 16 155/86 100 Room Air 06/13/16 09:41 58 162/70 06/13/16 08:18 82 18 Room Air 06/13/16 07:39 97.0 58 15 162/70 100 Nasal Cannula 3.0 06/13/16 07:35 61 14 145/69 100 Nasal Cannula 3.0 06/13/16 07:30 59 13 132/64 100 Nasal Cannula 3.0 06/13/16 07:25 98.7 54 14 130/55 100 Nasal Cannula 3.0 06/13/16 04:00 98.7 87 20 157/69 95 Room Air 06/13/16 00:00 97.9 61 20 139/69 97 Room Air Intake and Output 06/12/16 06/13/16 19:00 07:00 Intake Total 450 ml 1337.5 ml Output Total 800 ml 950 ml Balance -350 ml 387.5 ml Intake Oral 420 ml IV Total 450 ml 917.5 ml Output Urine Total 800 ml 950 ml # Bowel Movements 2 1 Objective Lines, tubes and drains: peripheral, HEENT: normocephalic, atraumatic Neck: non-tender, normal alignment Respiratory/Chest: chest wall non-tender, lungs clear Cardiovascular/Chest: normal peripheral pulses, normal rate Abdomen: normal bowel sounds, non tender Genitourinary/Rectal: normal genital exam, normal rectal exam Extremities: normal range of motion, non-tender Laboratory Tests 06/13/16 04:00: White Blood Count 3.9L, Red Blood Count 2.63L, Hemoglobin 8.0L, Hematocrit 24.5L , Mean Corpuscular Volume 93, Mean Corpuscular Hemoglobin 30.6, Mean Corpuscular Hemoglobin Concent 32.8, Red Cell Distribution Width 13.5, Platelet Count 93L, Mean Platelet Volume 7.8, Neutrophils (%) (Auto) , Lymphocytes (%) ( Auto) , Monocytes (%) (Auto) , Eosinophils (%) (Auto) , Basophils (%) (Auto) , Differential Total Cells Counted 100, Neutrophils % (Manual) 53, Lymphocytes % ( Manual) 34, Monocytes % (Manual) 8, Eosinophils % (Manual) 5H, Basophils % ( Manual) 0, Band Neutrophils 0, Platelet Estimate DecreasedL, Platelet Morphology Normal, Anisocytosis 1+, Sodium Level 139, Potassium Level 3.7, Chloride Level 105, Carbon Dioxide Level 19L, Anion Gap 15, Blood Urea Nitrogen 17, Creatinine 1.0H, Estimat Glomerular Filtration Rate , Glucose Level 92, Calcium Level 9.1 06/13/16 06:50: Stool Occult Blood Positive Current Medications Medications (Trade) Dose Ordered Sig/Pavel Route PRN Reason Start Time Stop Time Status Last Admin Dose Admin Acetaminophen (Tylenol) 650 mg Q4H PRN ORAL fever 06/09/16 20:45 07/09/16 20:44 Albuterol/ Ipratropium (DuoNeb 0.5-3(2.5)mg/3ml) 3 ml Q4H PRN HHN Shortness of Breath 06/09/16 20:30 06/14/16 20:29 Clonidine HCl (Catapres) 0.1 mg Q6H PRN ORAL for SBP >160 06/09/16 23:00 07/09/16 22:59 06/12/16 19:36 Dextrose (Dextrose 50%) STAT PRN IV Hypoglycemia 06/09/16 20:45 07/09/16 20:44 Ertapenem/Sodium Chloride (INVanz/Sodium Chloride) 55 ml @ 110 mls/hr Q24H IVPB 06/11/16 21:00 06/16/16 20:59 06/13/16 21:04 Insulin Aspart (NovoLOG) BEFORE MEALS AND HS SUBQ 06/09/16 21:00 07/09/16 20:59 06/13/16 21:05 Metoprolol Tartrate (Lopressor) 12.5 mg EVERY 12 HOURS ORAL 06/09/16 21:00 07/09/16 20:59 06/13/16 21:03 Morphine Sulfate (Morphine Sulfate) 2 mg Q4H PRN IVP Moderate Pain (Pain Scale 4-6) 06/09/16 21:00 06/16/16 20:59 06/11/16 02:16 Nitroglycerin (Ntg) 0.4 mg Q5MIN PRN SL Prn Chest Pain 06/09/16 20:30 07/09/16 20:29 Nystatin (Nystop Powder) 1 applic THREE TIMES A DAY TOPIC 06/10/16 09:00 07/10/16 08:59 06/13/16 18:00 Ondansetron HCl (Zofran) 4 mg Q6H PRN IVP Nausea & Vomiting 06/09/16 20:45 07/09/16 20:44 Pantoprazole (Protonix) 40 mg Q24HRS IVP 06/11/16 23:00 07/11/16 22:59 06/13/16 22:10 Polyethylene Glycol (Miralax) 17 gm DAILYPRN PRN ORAL Constipation 06/09/16 20:45 07/09/16 20:44 Sodium Chloride (Sodium Chloride 1000ml bag) 1,000 ml @ 75 mls/hr [id number] IVLG 06/09/16 20:45 07/09/16 20:44 06/13/16 22:10 Temazepam 15 mg 15 mg HSPRN PRN ORAL Insomnia 06/09/16 20:45 06/16/16 20:44 DIONI TRIANA Jun 13, 2016 22:17
[2016-06-14] VITALS: BP 156/77
[2016-06-14 04:00] VITALS: BP 151/78
[2016-06-14] MEDS: NovoLOG Insulin Flexpen SUBQ SCH ×4 (06:13→20:33)
[2016-06-14 07:10] LABS: MEAN CORPUSCULAR HEMOGLOBIN 30.1 PG (27.0-31.0); MEAN CORPUSCULAR HGB CONC 32.2 G/DL (32.0-36.0); MEAN CORPUSCULAR VOLUME 93 FL (80-99); MEAN PLATELET VOLUME 7.2 FL (6.5-10.1); PLATELET COUNT 93 K/UL (150-450); RED BLOOD COUNT 2.72 M/UL (4.20-5.40); RED CELL DISTRIBUTION WIDTH 13.2 % (11.6-14.8); WHITE BLOOD COUNT 4.8 K/UL (4.8-10.8)
[2016-06-14 07:48] LABS: ANION GAP 14 (5-15); CALCIUM 9.6 mg/dL (8.6-10.2); CARBON DIOXIDE 21 mEQ/L (20-30); CHLORIDE 107 mEQ/L (98-107); CREATININE 1.1 mg/dL (0.5-0.9); HEMOLYSIS 1; SODIUM 142 mEQ/L (135-145)
[2016-06-14 08:11] VITALS: BP 147/74
[2016-06-14] MEDS: Nystatin Powder 100,000 units/gm 15gm TOPIC SCH ×3 (09:33→18:17)
[2016-06-14] MEDS: Metoprolol Tartrate 12.5mg TAB ORAL SCH ×2 (09:33→20:22)
[2016-06-14 09:42] LABS: ANISOCYTOSIS 1+; BAND NEUTROPHILS % (MANUAL) 0 % (0-8); BASOPHILS % (MANUAL) 0 % (0-2); EOSINOPHILS % (MANUAL) 2 % (0-3); LYMPHOCYTES % (MANUAL) 33 % (20-45); NEUTROPHILS % (MANUAL) 56 % (45-75); PLATELET ESTIMATE DECREASED; PLATELET MORPHOLOGY NORMAL; TOTAL CELLS COUNTED 100
[2016-06-14 11:57] VITALS: BP 145/73
--- NOTE | 2016-06-14 12:41 | Pulmonology Progress Note ---
Assessment/Plan Problems: (1) Severe sepsis (2) RAMYA (acute kidney injury) (3) Diabetes mellitus (4) Obesity (5) Cirrhosis (6) Uncontrolled diabetes mellitus Assessment/Plan de-escalate iv antibiotics feeling better check cultures, MRSA, coag - in blood, MRSA nares/etc Bs controlled iv fluids check electrolytes antibiotics by ID dvt prophylaxis got PICC line today Subjective Allergies: Coded Allergies: PENICILLINS (Unverified Allergy, Unknown, 03/22/15) Objective Last 24 Hour Vital Signs Date Time Temp Pulse Resp B/P Pulse Ox O2 Delivery O2 Flow Rate FiO2 06/14/16 11:57 98.1 72 16 145/73 100 Room Air 06/14/16 09:33 74 147/74 06/14/16 08:11 97.3 74 15 147/74 100 Room Air 06/14/16 07:30 67 18 Room Air 06/14/16 04:00 97.4 88 17 151/78 97 Room Air 06/14/16 00:00 97.5 90 16 156/77 96 Room Air 06/13/16 21:03 80 137/69 06/13/16 20:32 83 18 Room Air 06/13/16 19:00 97.9 80 20 137/69 98 Room Air 06/13/16 16:00 97.9 82 20 137/60 98 Room Air Intake and Output 06/13/16 06/14/16 19:00 07:00 Intake Total 1405 ml 1875 ml Output Total 800 ml 1300 ml Balance 605 ml 575 ml Intake Oral 480 ml 500 ml IV Total 925 ml 1375 ml Output Urine Total 800 ml 1300 ml Estimated Blood Loss 0 ml Objective Lines, tubes and drains: peripheral, HEENT: normocephalic, atraumatic Neck: non-tender, normal alignment Respiratory/Chest: chest wall non-tender, lungs clear Cardiovascular/Chest: normal peripheral pulses, normal rate Abdomen: normal bowel sounds, non tender Genitourinary/Rectal: normal genital exam, normal rectal exam Extremities: normal range of motion, non-tender Laboratory Tests 06/14/16 05:00: White Blood Count 4.8, Red Blood Count 2.72L, Hemoglobin 8.2L, Hematocrit 25.3L , Mean Corpuscular Volume 93, Mean Corpuscular Hemoglobin 30.1, Mean Corpuscular Hemoglobin Concent 32.2, Red Cell Distribution Width 13.2, Platelet Count 93L, Mean Platelet Volume 7.2, Neutrophils (%) (Auto) , Lymphocytes (%) ( Auto) , Monocytes (%) (Auto) , Eosinophils (%) (Auto) , Basophils (%) (Auto) , Differential Total Cells Counted 100, Neutrophils % (Manual) 56, Lymphocytes % ( Manual) 33, Monocytes % (Manual) 9, Eosinophils % (Manual) 2, Basophils % ( Manual) 0, Band Neutrophils 0, Platelet Estimate DecreasedL, Platelet Morphology Normal, Anisocytosis 1+, Sodium Level 142, Potassium Level 4.0, Chloride Level 107, Carbon Dioxide Level 21, Anion Gap 14, Blood Urea Nitrogen 17, Creatinine 1.1H, Estimat Glomerular Filtration Rate , Glucose Level 138H, Calcium Level 9.6 Current Medications Medications (Trade) Dose Ordered Sig/Pavel Route PRN Reason Start Time Stop Time Status Last Admin Dose Admin Acetaminophen (Tylenol) 650 mg Q4H PRN ORAL fever 06/09/16 20:45 07/09/16 20:44 Albuterol/ Ipratropium (DuoNeb 0.5-3(2.5)mg/3ml) 3 ml Q4H PRN HHN Shortness of Breath 06/09/16 20:30 06/14/16 20:29 Clonidine HCl (Catapres) 0.1 mg Q6H PRN ORAL for SBP >160 06/09/16 23:00 07/09/16 22:59 06/12/16 19:36 Dextrose (Dextrose 50%) STAT PRN IV Hypoglycemia 06/09/16 20:45 07/09/16 20:44 Ertapenem/Sodium Chloride (INVanz/Sodium Chloride) 55 ml @ 110 mls/hr Q24H IVPB 06/11/16 21:00 06/16/16 20:59 06/13/16 21:04 Insulin Aspart (NovoLOG) BEFORE MEALS AND HS SUBQ 06/09/16 21:00 07/09/16 20:59 06/14/16 12:02 Metoprolol Tartrate (Lopressor) 12.5 mg EVERY 12 HOURS ORAL 06/09/16 21:00 07/09/16 20:59 06/14/16 09:33 Morphine Sulfate (Morphine Sulfate) 2 mg Q4H PRN IVP Moderate Pain (Pain Scale 4-6) 06/09/16 21:00 06/16/16 20:59 06/11/16 02:16 Nitroglycerin (Ntg) 0.4 mg Q5MIN PRN SL Prn Chest Pain 06/09/16 20:30 07/09/16 20:29 Nystatin (Nystop Powder) 1 applic THREE TIMES A DAY TOPIC 06/10/16 09:00 07/10/16 08:59 06/14/16 12:01 Ondansetron HCl (Zofran) 4 mg Q6H PRN IVP Nausea & Vomiting 06/09/16 20:45 07/09/16 20:44 Pantoprazole (Protonix) 40 mg Q24HRS IVP 06/11/16 23:00 07/11/16 22:59 06/13/16 22:10 Polyethylene Glycol (Miralax) 17 gm DAILYPRN PRN ORAL Constipation 06/09/16 20:45 07/09/16 20:44 Sodium Chloride (Sodium Chloride 1000ml bag) 1,000 ml @ 75 mls/hr [id number] IVLG 06/09/16 20:45 07/09/16 20:44 06/14/16 06:01 Temazepam 15 mg 15 mg HSPRN PRN ORAL Insomnia 06/09/16 20:45 06/16/16 20:44 DIONI TRIANA Jun 14, 2016 12:41
--- NOTE | 2016-06-14 14:09 | Internal Med Progress Note ---
Subjective Date of Service: Jun 14, 2016 Physician Name Jed Pond Attending Physician Rl Tee MD Current Medications Medications (Trade) Dose Ordered Sig/Pavel Route PRN Reason Start Time Stop Time Status Last Admin Dose Admin Acetaminophen (Tylenol) 650 mg Q4H PRN ORAL fever 06/09/16 20:45 07/09/16 20:44 Albuterol/ Ipratropium (DuoNeb 0.5-3(2.5)mg/3ml) 3 ml Q4H PRN HHN Shortness of Breath 06/09/16 20:30 06/14/16 20:29 Clonidine HCl (Catapres) 0.1 mg Q6H PRN ORAL for SBP >160 06/09/16 23:00 07/09/16 22:59 06/12/16 19:36 Dextrose (Dextrose 50%) STAT PRN IV Hypoglycemia 06/09/16 20:45 07/09/16 20:44 Ertapenem/Sodium Chloride (INVanz/Sodium Chloride) 55 ml @ 110 mls/hr Q24H IVPB 06/11/16 21:00 06/16/16 20:59 06/13/16 21:04 Insulin Aspart (NovoLOG) BEFORE MEALS AND HS SUBQ 06/09/16 21:00 07/09/16 20:59 06/14/16 12:02 Metoprolol Tartrate (Lopressor) 12.5 mg EVERY 12 HOURS ORAL 06/09/16 21:00 07/09/16 20:59 06/14/16 09:33 Morphine Sulfate (Morphine Sulfate) 2 mg Q4H PRN IVP Moderate Pain (Pain Scale 4-6) 06/09/16 21:00 06/16/16 20:59 06/11/16 02:16 Nitroglycerin (Ntg) 0.4 mg Q5MIN PRN SL Prn Chest Pain 06/09/16 20:30 07/09/16 20:29 Nystatin (Nystop Powder) 1 applic THREE TIMES A DAY TOPIC 06/10/16 09:00 07/10/16 08:59 06/14/16 12:01 Ondansetron HCl (Zofran) 4 mg Q6H PRN IVP Nausea & Vomiting 06/09/16 20:45 07/09/16 20:44 Pantoprazole (Protonix) 40 mg Q24HRS IVP 06/11/16 23:00 07/11/16 22:59 06/13/16 22:10 Polyethylene Glycol (Miralax) 17 gm DAILYPRN PRN ORAL Constipation 06/09/16 20:45 07/09/16 20:44 Sodium Chloride (Sodium Chloride 1000ml bag) 1,000 ml @ 75 mls/hr [id number] IVLG 06/09/16 20:45 07/09/16 20:44 06/14/16 06:01 Temazepam 15 mg 15 mg HSPRN PRN ORAL Insomnia 06/09/16 20:45 06/16/16 20:44 Allergies: Coded Allergies: PENICILLINS (Unverified Allergy, Unknown, 03/22/15) ROS Limited/Unobtainable: No Constitutional: Reports: no symptoms HEENT: Reports: no symptoms Cardiovascular: Reports: no symptoms Respiratory: Reports: no symptoms Gastrointestinal/Abdominal: Reports: no symptoms Genitourinary: Reports: no symptoms Neurologic/Psychiatric: Reports: no symptoms Subjective 76 YO F admitted with altered mental status, now UTI. Cover for Int Med-Dr Tee. S/P endoscopy 06/13/16. Objective Last Vital Signs Date Time Temp Pulse Resp B/P Pulse Ox O2 Delivery O2 Flow Rate FiO2 06/14/16 11:57 98.1 72 16 145/73 100 Room Air 06/13/16 07:39 3.0 06/12/16 19:54 21 Laboratory Tests Test 06/14/16 05:00 White Blood Count 4.8 K/UL (4.8-10.8) Red Blood Count 2.72 M/UL (4.20-5.40) L Hemoglobin 8.2 G/DL (12.0-16.0) L Hematocrit 25.3 % (37.0-47.0) L Mean Corpuscular Volume 93 FL (80-99) Mean Corpuscular Hemoglobin 30.1 PG (27.0-31.0) Mean Corpuscular Hemoglobin Concent 32.2 G/DL (32.0-36.0) Red Cell Distribution Width 13.2 % (11.6-14.8) Platelet Count 93 K/UL (150-450) L Mean Platelet Volume 7.2 FL (6.5-10.1) Neutrophils (%) (Auto) % (45.0-75.0) Lymphocytes (%) (Auto) % (20.0-45.0) Monocytes (%) (Auto) % (1.0-10.0) Eosinophils (%) (Auto) % (0.0-3.0) Basophils (%) (Auto) % (0.0-2.0) Differential Total Cells Counted 100 Neutrophils % (Manual) 56 % (45-75) Lymphocytes % (Manual) 33 % (20-45) Monocytes % (Manual) 9 % (1-10) Eosinophils % (Manual) 2 % (0-3) Basophils % (Manual) 0 % (0-2) Band Neutrophils 0 % (0-8) Platelet Estimate Decreased L Platelet Morphology Normal Anisocytosis 1+ Sodium Level 142 mEQ/L (135-145) Potassium Level 4.0 mEQ/L (3.4-4.9) Chloride Level 107 mEQ/L (98-107) Carbon Dioxide Level 21 mEQ/L (20-30) Anion Gap 14 (5-15) Blood Urea Nitrogen 17 mg/dL (7-23) Creatinine 1.1 mg/dL (0.5-0.9) H Estimat Glomerular Filtration Rate mL/min (>60) Glucose Level 138 mg/dL (74-106) H Calcium Level 9.6 mg/dL (8.6-10.2) Intake and Output 06/13/16 06/14/16 19:00 07:00 Intake Total 1405 ml 1875 ml Output Total 800 ml 1300 ml Balance 605 ml 575 ml Intake Oral 480 ml 500 ml IV Total 925 ml 1375 ml Output Urine Total 800 ml 1300 ml Estimated Blood Loss 0 ml Objective General Appearance: WD/WN, no apparent distress, alert, obese EENT: PERRL/EOMI, normal ENT inspection Neck: non-tender, normal alignment, supple Cardiovascular: normal peripheral pulses, normal rate, regular rhythm, no gallop/murmur, no JVD Respiratory/Chest: chest wall non-tender, lungs clear, normal breath sounds, no respiratory distress, no accessory muscle use Abdomen: normal bowel sounds, non tender, soft, no organomegaly, no mass Extremities: normal range of motion, non-tender 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 coli and ESBL kleb pneumo. See ID note. Cont vanco and meropenem for per ID (5) Diabetes mellitus Assessment & Plan: Cont novolog sliding scale. (6) Hypertension Assessment & Plan: Cont metoprolol (7) Hypercholesteremia (8) Sleep apnea, obstructive (9) GERD (gastroesophageal reflux disease) (10) Cardiomegaly (11) Obesity (12) Cirrhosis (13) Gastrointestinal hemorrhage Assessment & Plan: S/P endoscopy 06/13/16 - See GI note.. (14) Anemia Status: progressing JED POND Jun 14, 2016 14:09
--- NOTE | 2016-06-14 14:29 | General Progress Note ---
Assessment/Plan Assessment/Plan Assessment - DURANT/cirrhosis - black stools due to PO FeSO4 - anemia with drop in H&H - ? dilutional - DM - h/o Gt - removed Recommendations - monitor H&H - Transfuse PRN - PPI - PICC line Subjective Allergies: Coded Allergies: PENICILLINS (Unverified Allergy, Unknown, 03/22/15) Subjective smiling, no abd complaints Objective Last 24 Hour Vital Signs Date Time Temp Pulse Resp B/P Pulse Ox O2 Delivery O2 Flow Rate FiO2 06/14/16 11:57 98.1 72 16 145/73 100 Room Air 06/14/16 09:33 74 147/74 06/14/16 08:11 97.3 74 15 147/74 100 Room Air 06/14/16 07:30 67 18 Room Air 06/14/16 04:00 97.4 88 17 151/78 97 Room Air 06/14/16 00:00 97.5 90 16 156/77 96 Room Air 06/13/16 21:03 80 137/69 06/13/16 20:32 83 18 Room Air 06/13/16 19:00 97.9 80 20 137/69 98 Room Air 06/13/16 16:00 97.9 82 20 137/60 98 Room Air Intake and Output 06/13/16 06/14/16 19:00 07:00 Intake Total 1405 ml 1875 ml Output Total 800 ml 1300 ml Balance 605 ml 575 ml Intake Oral 480 ml 500 ml IV Total 925 ml 1375 ml Output Urine Total 800 ml 1300 ml Estimated Blood Loss 0 ml Laboratory Tests 06/14/16 05:00: White Blood Count 4.8, Red Blood Count 2.72L, Hemoglobin 8.2L, Hematocrit 25.3L , Mean Corpuscular Volume 93, Mean Corpuscular Hemoglobin 30.1, Mean Corpuscular Hemoglobin Concent 32.2, Red Cell Distribution Width 13.2, Platelet Count 93L, Mean Platelet Volume 7.2, Neutrophils (%) (Auto) , Lymphocytes (%) ( Auto) , Monocytes (%) (Auto) , Eosinophils (%) (Auto) , Basophils (%) (Auto) , Differential Total Cells Counted 100, Neutrophils % (Manual) 56, Lymphocytes % ( Manual) 33, Monocytes % (Manual) 9, Eosinophils % (Manual) 2, Basophils % ( Manual) 0, Band Neutrophils 0, Platelet Estimate DecreasedL, Platelet Morphology Normal, Anisocytosis 1+, Sodium Level 142, Potassium Level 4.0, Chloride Level 107, Carbon Dioxide Level 21, Anion Gap 14, Blood Urea Nitrogen 17, Creatinine 1.1H, Estimat Glomerular Filtration Rate , Glucose Level 138H, Calcium Level 9.6 Height (Feet): 5 Height (Inches): 5.00 Weight (Pounds): 280 Objective WDWN WW NCAT supple CTA RRR Abd soft NT ND no edema non focal KIERSTEN DAVIES Jun 14, 2016 14:29
[2016-06-14 16:28] VITALS: BP 155/65
[2016-06-14 20:00] VITALS: BP 139/70
[2016-06-14] MEDS: Ertapenem 1 GM in NS 55 ML IVPB SCH (20:23)
[2016-06-14] MEDS: Pantoprazole Inj IVP SCH (22:30)
[2016-06-15] VITALS: BP 143/65
[2016-06-15 04:00] VITALS: BP 151/78
[2016-06-15] MEDS: NovoLOG Insulin Flexpen SUBQ SCH ×4 (06:30→21:55)
[2016-06-15 06:53] LABS: MEAN CORPUSCULAR HEMOGLOBIN 31.3 PG (27.0-31.0); MEAN CORPUSCULAR HGB CONC 33.8 G/DL (32.0-36.0); MEAN CORPUSCULAR VOLUME 93 FL (80-99); MEAN PLATELET VOLUME 6.5 FL (6.5-10.1); PLATELET COUNT 82 K/UL (150-450); RED BLOOD COUNT 2.61 M/UL (4.20-5.40); RED CELL DISTRIBUTION WIDTH 13.4 % (11.6-14.8); WHITE BLOOD COUNT 4.7 K/UL (4.8-10.8)
[2016-06-15 07:05] LABS: ANION GAP 13 (5-15); CALCIUM 9.3 mg/dL (8.6-10.2); CARBON DIOXIDE 21 mEQ/L (20-30); CHLORIDE 106 mEQ/L (98-107); CREATININE 0.9 mg/dL (0.5-0.9); HEMOLYSIS 1; POTASSIUM 3.8 mEQ/L (3.4-4.9); SODIUM 140 mEQ/L (135-145)
[2016-06-15 08:31] VITALS: BP 131/70
--- NOTE | 2016-06-15 08:33 | Infectious Diseases Prog Note ---
Assessment/Plan Assessment/Plan ASSESSMENT: 76 y/o female with: // CONS bacteremia 2/4, probable contaminant - h/o CONS contaminant bacteremia // Recurrent complicated ESBL(+) E.coli + K.pneumoniae UTI - US: normal echogenicity. No hydronephrosis. No focal abnormality - CT A/P 09/2015: 9 x 4 mm left proximal ureteral stone with mild left hydronephrosis. Tiny nonobstructive stone in the mid pole the left kidney. Bladder wall thickening, suspected cystitis - h/o ESBL(+) E.coli, P.mirabilis, K.oxytoca, C.albicans // Multiple superficial decubiti POA, not grossly infected // Afebrile without leukocytosis // Acute anemia / melena - EGD: normal // Acute encephalopathy, m/l UTI // ARF on CKD3 - improved // Hypercalcemia // DM2 // Obesity // MRSA, VRE colonized // PCN allergy - tolerates carbapenems // Full Code PLAN: - DC planning for IV invanz x3 days. ( ABX d# 7 / 10 ) ( 06/11 SP IV vancomycin, meropenem d# 3 ) - f/u cultures - monitor CBC, temperatures - monitor BMP Subjective Allergies: Coded Allergies: PENICILLINS (Unverified Allergy, Unknown, 03/22/15) Subjective remains afebrile. comfortable Objective Vital Signs Last 24 Hour Vital Signs Date Time Temp Pulse Resp B/P Pulse Ox O2 Delivery O2 Flow Rate FiO2 06/15/16 04:00 96.8 67 20 151/78 99 Room Air 06/15/16 00:00 97.3 67 20 143/65 100 Room Air 06/14/16 21:18 71 18 Room Air 06/14/16 20:22 71 155/65 06/14/16 20:00 97.3 74 19 139/70 98 Room Air 06/14/16 16:28 97.7 71 16 155/65 97 Room Air 06/14/16 11:57 98.1 72 16 145/73 100 Room Air 06/14/16 09:33 74 147/74 Height (Feet): 5 Height (Inches): 5.00 Weight (Pounds): 280 General Appearance: no acute distress Respiratory/Chest: no respiratory distress Cardiovascular: normal rate, regular rhythm Abdomen: normal bowel sounds, soft, non tender, non distended Laboratory Tests Test 06/15/16 05:45 White Blood Count 4.7 K/UL (4.8-10.8) L Red Blood Count 2.61 M/UL (4.20-5.40) L Hemoglobin 8.2 G/DL (12.0-16.0) L Hematocrit 24.2 % (37.0-47.0) L Mean Corpuscular Volume 93 FL (80-99) Mean Corpuscular Hemoglobin 31.3 PG (27.0-31.0) H Mean Corpuscular Hemoglobin Concent 33.8 G/DL (32.0-36.0) Red Cell Distribution Width 13.4 % (11.6-14.8) Platelet Count 82 K/UL (150-450) L Mean Platelet Volume 6.5 FL (6.5-10.1) Neutrophils (%) (Auto) % (45.0-75.0) Lymphocytes (%) (Auto) % (20.0-45.0) Monocytes (%) (Auto) % (1.0-10.0) Eosinophils (%) (Auto) % (0.0-3.0) Basophils (%) (Auto) % (0.0-2.0) Neutrophils % (Manual) Pending Lymphocytes % (Manual) Pending Platelet Estimate Pending Platelet Morphology Pending Sodium Level 140 mEQ/L (135-145) Potassium Level 3.8 mEQ/L (3.4-4.9) Chloride Level 106 mEQ/L (98-107) Carbon Dioxide Level 21 mEQ/L (20-30) Anion Gap 13 (5-15) Blood Urea Nitrogen 13 mg/dL (7-23) Creatinine 0.9 mg/dL (0.5-0.9) Estimat Glomerular Filtration Rate mL/min (>60) Glucose Level 112 mg/dL (74-106) H Calcium Level 9.3 mg/dL (8.6-10.2) Current Medications Medications (Trade) Dose Ordered Sig/Pavel Route PRN Reason Start Time Stop Time Status Last Admin Dose Admin Acetaminophen (Tylenol) 650 mg Q4H PRN ORAL fever 06/09/16 20:45 07/09/16 20:44 06/14/16 16:27 Clonidine HCl (Catapres) 0.1 mg Q6H PRN ORAL for SBP >160 06/09/16 23:00 07/09/16 22:59 06/12/16 19:36 Dextrose (Dextrose 50%) STAT PRN IV Hypoglycemia 06/09/16 20:45 07/09/16 20:44 Ertapenem/Sodium Chloride (INVanz/Sodium Chloride) 55 ml @ 110 mls/hr Q24H IVPB 06/11/16 21:00 06/16/16 20:59 06/14/16 20:23 Insulin Aspart (NovoLOG) BEFORE MEALS AND HS SUBQ 06/09/16 21:00 07/09/16 20:59 06/14/16 20:33 Metoprolol Tartrate (Lopressor) 12.5 mg EVERY 12 HOURS ORAL 06/09/16 21:00 07/09/16 20:59 06/14/16 20:22 Morphine Sulfate (Morphine Sulfate) 2 mg Q4H PRN IVP Moderate Pain (Pain Scale 4-6) 06/09/16 21:00 06/16/16 20:59 06/11/16 02:16 Nitroglycerin (Ntg) 0.4 mg Q5MIN PRN SL Prn Chest Pain 06/09/16 20:30 07/09/16 20:29 Nystatin (Nystop Powder) 1 applic THREE TIMES A DAY TOPIC 06/10/16 09:00 07/10/16 08:59 06/14/16 18:17 Ondansetron HCl (Zofran) 4 mg Q6H PRN IVP Nausea & Vomiting 06/09/16 20:45 07/09/16 20:44 Pantoprazole (Protonix) 40 mg Q24HRS IVP 06/11/16 23:00 07/11/16 22:59 06/14/16 22:30 Polyethylene Glycol (Miralax) 17 gm DAILYPRN PRN ORAL Constipation 06/09/16 20:45 07/09/16 20:44 Sodium Chloride (Sodium Chloride 1000ml bag) 1,000 ml @ 75 mls/hr [id number] IVLG 06/09/16 20:45 07/09/16 20:44 06/14/16 19:31 Temazepam 15 mg 15 mg HSPRN PRN ORAL Insomnia 06/09/16 20:45 06/16/16 20:44 06/14/16 20:33 KAYLA LOIUS Jun 15, 2016 08:33
[2016-06-15] MEDS: Metoprolol Tartrate 12.5mg TAB ORAL SCH ×2 (08:59→21:54)
[2016-06-15] MEDS: Nystatin Powder 100,000 units/gm 15gm TOPIC SCH ×3 (08:59→19:00)
--- NOTE | 2016-06-15 10:28 | General Progress Note ---
Assessment/Plan Assessment/Plan Assessment - DURANT/cirrhosis - black stools due to PO FeSO4 - anemia with drop in H&H - ? dilutional - DM - h/o Gt - removed Recommendations - monitor H&H - Transfuse PRN - PPI Subjective Allergies: Coded Allergies: PENICILLINS (Unverified Allergy, Unknown, 03/22/15) Subjective resting comfortably no events no abd complaints Objective Last 24 Hour Vital Signs Date Time Temp Pulse Resp B/P Pulse Ox O2 Delivery O2 Flow Rate FiO2 06/15/16 08:59 76 131/70 06/15/16 08:31 97.9 76 20 131/70 98 Room Air 06/15/16 04:00 96.8 67 20 151/78 99 Room Air 06/15/16 00:00 97.3 67 20 143/65 100 Room Air 06/14/16 21:18 71 18 Room Air 06/14/16 20:22 71 155/65 06/14/16 20:00 97.3 74 19 139/70 98 Room Air 06/14/16 16:28 97.7 71 16 155/65 97 Room Air 06/14/16 11:57 98.1 72 16 145/73 100 Room Air Intake and Output 06/14/16 06/15/16 18:59 06:59 Intake Total 1825 ml Output Total 900 ml 1000 ml Balance 925 ml -1000 ml Intake Oral 1150 ml IV Total 675 ml Output Urine Total 900 ml 1000 ml # Bowel Movements 2 Laboratory Tests 06/15/16 05:45: White Blood Count 4.7L, Red Blood Count 2.61L, Hemoglobin 8.2L, Hematocrit 24.2L , Mean Corpuscular Volume 93, Mean Corpuscular Hemoglobin 31.3H, Mean Corpuscular Hemoglobin Concent 33.8, Red Cell Distribution Width 13.4, Platelet Count 82L, Mean Platelet Volume 6.5, Neutrophils (%) (Auto) , Lymphocytes (%) ( Auto) , Monocytes (%) (Auto) , Eosinophils (%) (Auto) , Basophils (%) (Auto) , Neutrophils % (Manual) [Pending], Lymphocytes % (Manual) [Pending], Platelet Estimate [Pending], Platelet Morphology [Pending], Sodium Level 140, Potassium Level 3.8, Chloride Level 106, Carbon Dioxide Level 21, Anion Gap 13, Blood Urea Nitrogen 13, Creatinine 0.9, Estimat Glomerular Filtration Rate , Glucose Level 112H, Calcium Level 9.3 Height (Feet): 5 Height (Inches): 5.00 Weight (Pounds): 280 Objective WDWN WW NCAT supple CTA RRR Abd soft NT ND no edema non focal KIERSTEN DAVIES Jun 15, 2016 10:28
[2016-06-15 11:51] LABS: BAND NEUTROPHILS % (MANUAL) 0 % (0-8); BASOPHILS % (MANUAL) 0 % (0-2); EOSINOPHILS % (MANUAL) 7 % (0-3); LYMPHOCYTES % (MANUAL) 42 % (20-45); NEUTROPHILS % (MANUAL) 42 % (45-75); PLATELET ESTIMATE DECREASED; PLATELET MORPHOLOGY NORMAL; TOTAL CELLS COUNTED 100
[2016-06-15 11:53] VITALS: BP 142/67
--- NOTE | 2016-06-15 13:13 | Internal Med Progress Note ---
Subjective Date of Service: Jun 15, 2016 Physician Name Katharina Pond Attending Physician Rl Tee MD Current Medications Medications (Trade) Dose Ordered Sig/Pavel Route PRN Reason Start Time Stop Time Status Last Admin Dose Admin Acetaminophen (Tylenol) 650 mg Q4H PRN ORAL fever 06/09/16 20:45 07/09/16 20:44 06/14/16 16:27 Clonidine HCl (Catapres) 0.1 mg Q6H PRN ORAL for SBP >160 06/09/16 23:00 07/09/16 22:59 06/12/16 19:36 Dextrose (Dextrose 50%) STAT PRN IV Hypoglycemia 06/09/16 20:45 07/09/16 20:44 Ertapenem/Sodium Chloride (INVanz/Sodium Chloride) 55 ml @ 110 mls/hr Q24H IVPB 06/11/16 21:00 06/16/16 20:59 06/14/16 20:23 Insulin Aspart (NovoLOG) BEFORE MEALS AND HS SUBQ 06/09/16 21:00 07/09/16 20:59 06/15/16 12:02 Metoprolol Tartrate (Lopressor) 12.5 mg EVERY 12 HOURS ORAL 06/09/16 21:00 07/09/16 20:59 06/15/16 08:59 Morphine Sulfate (Morphine Sulfate) 2 mg Q4H PRN IVP Moderate Pain (Pain Scale 4-6) 06/09/16 21:00 06/16/16 20:59 06/11/16 02:16 Nitroglycerin (Ntg) 0.4 mg Q5MIN PRN SL Prn Chest Pain 06/09/16 20:30 07/09/16 20:29 Nystatin (Nystop Powder) 1 applic THREE TIMES A DAY TOPIC 06/10/16 09:00 07/10/16 08:59 06/15/16 12:01 Ondansetron HCl (Zofran) 4 mg Q6H PRN IVP Nausea & Vomiting 06/09/16 20:45 07/09/16 20:44 Pantoprazole (Protonix) 40 mg Q24HRS IVP 06/11/16 23:00 07/11/16 22:59 06/14/16 22:30 Polyethylene Glycol (Miralax) 17 gm DAILYPRN PRN ORAL Constipation 06/09/16 20:45 07/09/16 20:44 Sodium Chloride (Sodium Chloride 1000ml bag) 1,000 ml @ 75 mls/hr [id number] IVLG 06/09/16 20:45 07/09/16 20:44 06/15/16 09:00 Temazepam 15 mg 15 mg HSPRN PRN ORAL Insomnia 06/09/16 20:45 06/16/16 20:44 06/14/16 20:33 Allergies: Coded Allergies: PENICILLINS (Unverified Allergy, Unknown, 03/22/15) ROS Limited/Unobtainable: No Constitutional: Reports: no symptoms HEENT: Reports: no symptoms Cardiovascular: Reports: no symptoms Respiratory: Reports: no symptoms Gastrointestinal/Abdominal: Reports: no symptoms Genitourinary: Reports: no symptoms Neurologic/Psychiatric: Reports: no symptoms Subjective 76 YO F admitted with altered mental status, now UTI. Cover for Int Nishant-Dr Tee. S/P endoscopy 06/13/16. Objective Last Vital Signs Date Time Temp Pulse Resp B/P Pulse Ox O2 Delivery O2 Flow Rate FiO2 06/15/16 11:53 97.7 73 21 142/67 97 Room Air 06/13/16 07:39 3.0 06/12/16 19:54 21 Laboratory Tests Test 06/15/16 05:45 White Blood Count 4.7 K/UL (4.8-10.8) L Red Blood Count 2.61 M/UL (4.20-5.40) L Hemoglobin 8.2 G/DL (12.0-16.0) L Hematocrit 24.2 % (37.0-47.0) L Mean Corpuscular Volume 93 FL (80-99) Mean Corpuscular Hemoglobin 31.3 PG (27.0-31.0) H Mean Corpuscular Hemoglobin Concent 33.8 G/DL (32.0-36.0) Red Cell Distribution Width 13.4 % (11.6-14.8) Platelet Count 82 K/UL (150-450) L Mean Platelet Volume 6.5 FL (6.5-10.1) Neutrophils (%) (Auto) % (45.0-75.0) Lymphocytes (%) (Auto) % (20.0-45.0) Monocytes (%) (Auto) % (1.0-10.0) Eosinophils (%) (Auto) % (0.0-3.0) Basophils (%) (Auto) % (0.0-2.0) Differential Total Cells Counted 100 Neutrophils % (Manual) 42 % (45-75) L Lymphocytes % (Manual) 42 % (20-45) Monocytes % (Manual) 9 % (1-10) Eosinophils % (Manual) 7 % (0-3) H Basophils % (Manual) 0 % (0-2) Band Neutrophils 0 % (0-8) Platelet Estimate Decreased L Platelet Morphology Normal Red Blood Cell Morphology Normal Sodium Level 140 mEQ/L (135-145) Potassium Level 3.8 mEQ/L (3.4-4.9) Chloride Level 106 mEQ/L (98-107) Carbon Dioxide Level 21 mEQ/L (20-30) Anion Gap 13 (5-15) Blood Urea Nitrogen 13 mg/dL (7-23) Creatinine 0.9 mg/dL (0.5-0.9) Estimat Glomerular Filtration Rate mL/min (>60) Glucose Level 112 mg/dL (74-106) H Calcium Level 9.3 mg/dL (8.6-10.2) Intake and Output 06/14/16 06/15/16 19:00 07:00 Intake Total 1750 ml Output Total 900 ml 1000 ml Balance 850 ml -1000 ml Intake Oral 1150 ml IV Total 600 ml Output Urine Total 900 ml 1000 ml # Bowel Movements 2 Objective General Appearance: WD/WN, no apparent distress, alert, obese EENT: PERRL/EOMI, normal ENT inspection Neck: non-tender, normal alignment, supple Cardiovascular: normal peripheral pulses, normal rate, regular rhythm, no gallop/murmur, no JVD Respiratory/Chest: chest wall non-tender, lungs clear, normal breath sounds, no respiratory distress, no accessory muscle use Abdomen: normal bowel sounds, non tender, soft, no organomegaly, no mass Extremities: normal range of motion, non-tender 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 coli and ESBL kleb pneumo. See ID note. Cont ertapenem for per ID (5) Diabetes mellitus Assessment & Plan: Cont novolog sliding scale. (6) Hypertension Assessment & Plan: Cont metoprolol (7) Hypercholesteremia (8) Sleep apnea, obstructive (9) GERD (gastroesophageal reflux disease) (10) Cardiomegaly (11) Obesity (12) Cirrhosis (13) Gastrointestinal hemorrhage Assessment & Plan: S/P endoscopy 06/13/16 - See GI note.. (14) Anemia Status: progressing Assessment/Plan Discharge planning: [facility] KATHARINA POND Jun 15, 2016 13:13
[2016-06-15 16:00] VITALS: BP 155/75
[2016-06-15 20:00] VITALS: BP 141/66
[2016-06-15] MEDS: Ertapenem 1 GM in NS 55 ML IVPB SCH (20:37)
--- NOTE | 2016-06-15 22:51 | Pulmonology Progress Note ---
Assessment/Plan Problems: (1) Severe sepsis (2) RAMYA (acute kidney injury) (3) Diabetes mellitus (4) Obesity (5) Cirrhosis (6) Uncontrolled diabetes mellitus Assessment/Plan de-escalate iv antibiotics feeling better check cultures, MRSA, coag - in blood, MRSA nares/etc Bs controlled iv fluids check electrolytes antibiotics by ID dvt prophylaxis got PICC line today Subjective Allergies: Coded Allergies: PENICILLINS (Unverified Allergy, Unknown, 03/22/15) Objective Last 24 Hour Vital Signs Date Time Temp Pulse Resp B/P Pulse Ox O2 Delivery O2 Flow Rate FiO2 06/15/16 21:54 71 141/66 06/15/16 20:00 97.7 71 17 141/66 98 Room Air 06/15/16 16:00 97.9 72 20 155/75 98 Room Air 06/15/16 11:53 97.7 73 21 142/67 97 Room Air 06/15/16 08:59 76 131/70 06/15/16 08:31 97.9 76 20 131/70 98 Room Air 06/15/16 04:00 96.8 67 20 151/78 99 Room Air 06/15/16 00:00 97.3 67 20 143/65 100 Room Air Intake and Output 06/14/16 06/15/16 19:00 07:00 Intake Total 1750 ml Output Total 900 ml 1000 ml Balance 850 ml -1000 ml Intake Oral 1150 ml IV Total 600 ml Output Urine Total 900 ml 1000 ml # Bowel Movements 2 Objective Lines, tubes and drains: peripheral, HEENT: normocephalic, atraumatic Neck: non-tender, normal alignment Respiratory/Chest: chest wall non-tender, lungs clear Cardiovascular/Chest: normal peripheral pulses, normal rate Abdomen: normal bowel sounds, non tender Genitourinary/Rectal: normal genital exam, normal rectal exam Extremities: normal range of motion, non-tender Laboratory Tests 06/15/16 05:45: White Blood Count 4.7L, Red Blood Count 2.61L, Hemoglobin 8.2L, Hematocrit 24.2L , Mean Corpuscular Volume 93, Mean Corpuscular Hemoglobin 31.3H, Mean Corpuscular Hemoglobin Concent 33.8, Red Cell Distribution Width 13.4, Platelet Count 82L, Mean Platelet Volume 6.5, Neutrophils (%) (Auto) , Lymphocytes (%) ( Auto) , Monocytes (%) (Auto) , Eosinophils (%) (Auto) , Basophils (%) (Auto) , Differential Total Cells Counted 100, Neutrophils % (Manual) 42L, Lymphocytes % (Manual) 42, Monocytes % (Manual) 9, Eosinophils % (Manual) 7H, Basophils % ( Manual) 0, Band Neutrophils 0, Platelet Estimate DecreasedL, Platelet Morphology Normal, Red Blood Cell Morphology Normal, Sodium Level 140, Potassium Level 3.8, Chloride Level 106, Carbon Dioxide Level 21, Anion Gap 13, Blood Urea Nitrogen 13, Creatinine 0.9, Estimat Glomerular Filtration Rate , Glucose Level 112H, Calcium Level 9.3 Current Medications Medications (Trade) Dose Ordered Sig/Pavel Route PRN Reason Start Time Stop Time Status Last Admin Dose Admin Acetaminophen (Tylenol) 650 mg Q4H PRN ORAL fever 06/09/16 20:45 07/09/16 20:44 06/15/16 17:03 Clonidine HCl (Catapres) 0.1 mg Q6H PRN ORAL for SBP >160 06/09/16 23:00 07/09/16 22:59 06/12/16 19:36 Dextrose (Dextrose 50%) STAT PRN IV Hypoglycemia 06/09/16 20:45 07/09/16 20:44 Ertapenem/Sodium Chloride (INVanz/Sodium Chloride) 55 ml @ 110 mls/hr Q24H IVPB 06/11/16 21:00 06/16/16 20:59 06/15/16 20:37 Insulin Aspart (NovoLOG) BEFORE MEALS AND HS SUBQ 06/09/16 21:00 07/09/16 20:59 06/15/16 21:55 Metoprolol Tartrate (Lopressor) 12.5 mg EVERY 12 HOURS ORAL 06/09/16 21:00 07/09/16 20:59 06/15/16 21:54 Morphine Sulfate (Morphine Sulfate) 2 mg Q4H PRN IVP Moderate Pain (Pain Scale 4-6) 06/09/16 21:00 06/16/16 20:59 06/11/16 02:16 Nitroglycerin (Ntg) 0.4 mg Q5MIN PRN SL Prn Chest Pain 06/09/16 20:30 07/09/16 20:29 Nystatin (Nystop Powder) 1 applic THREE TIMES A DAY TOPIC 06/10/16 09:00 07/10/16 08:59 06/15/16 19:00 Ondansetron HCl (Zofran) 4 mg Q6H PRN IVP Nausea & Vomiting 06/09/16 20:45 07/09/16 20:44 Pantoprazole (Protonix) 40 mg Q24HRS IVP 06/11/16 23:00 07/11/16 22:59 06/14/16 22:30 Polyethylene Glycol (Miralax) 17 gm DAILYPRN PRN ORAL Constipation 06/09/16 20:45 07/09/16 20:44 Sodium Chloride (Sodium Chloride 1000ml bag) 1,000 ml @ 75 mls/hr [id number] IVLG 06/09/16 20:45 07/09/16 20:44 06/15/16 09:00 Temazepam 15 mg 15 mg HSPRN PRN ORAL Insomnia 06/09/16 20:45 06/16/16 20:44 06/14/16 20:33 DIONI TRIANA Jun 15, 2016 22:51
[2016-06-15] MEDS: Pantoprazole Inj IVP SCH (23:06)
[2016-06-16] VITALS: BP 148/72
[2016-06-16 04:00] VITALS: BP 133/69
[2016-06-16] MEDS: NovoLOG Insulin Flexpen SUBQ SCH ×2 (06:30→12:12)
[2016-06-16 06:41] LABS: MEAN CORPUSCULAR HGB CONC 32.4 G/DL (32.0-36.0); MEAN CORPUSCULAR VOLUME 93 FL (80-99); MEAN PLATELET VOLUME 7.2 FL (6.5-10.1); PLATELET COUNT 77 K/UL (150-450); RED BLOOD COUNT 2.79 M/UL (4.20-5.40); RED CELL DISTRIBUTION WIDTH 13.7 % (11.6-14.8)
--- NOTE | 2016-06-16 06:49 | Infectious Diseases Prog Note ---
Assessment/Plan Assessment/Plan Assessment/Plan ASSESSMENT: 76 y/o female with: // CONS bacteremia 2/4, probable contaminant - h/o CONS contaminant bacteremia // Recurrent complicated ESBL(+) E.coli + K.pneumoniae UTI - US: normal echogenicity. No hydronephrosis. No focal abnormality - CT A/P 09/2015: 9 x 4 mm left proximal ureteral stone with mild left hydronephrosis. Tiny nonobstructive stone in the mid pole the left kidney. Bladder wall thickening, suspected cystitis - h/o ESBL(+) E.coli, P.mirabilis, K.oxytoca, C.albicans // Multiple superficial decubiti POA, not grossly infected // Afebrile without leukocytosis // Acute anemia / melena - EGD: normal // Acute encephalopathy, m/l UTI // ARF on CKD3 - improved // Hypercalcemia // DM2 // Obesity // MRSA, VRE colonized // PCN allergy - tolerates carbapenems // Full Code PLAN: - DC planning for IV invanz x 2 days. ( ABX d# 8 / 10 ) ( 06/11 SP IV vancomycin, meropenem d# 3 ) - monitor CBC, temperatures - monitor BMP Subjective Constitutional: Denies: anorexia, chills, drenching sweats, fatigue, fever, no symptoms, other Allergies: Coded Allergies: PENICILLINS (Unverified Allergy, Unknown, 03/22/15) Objective Vital Signs Last 24 Hour Vital Signs Date Time Temp Pulse Resp B/P Pulse Ox O2 Delivery O2 Flow Rate FiO2 06/16/16 04:00 97.7 79 18 133/69 100 Room Air 06/16/16 00:00 97.2 81 20 148/72 99 Room Air 06/15/16 21:54 71 141/66 06/15/16 20:00 97.7 71 17 141/66 98 Room Air 06/15/16 16:00 97.9 72 20 155/75 98 Room Air 06/15/16 11:53 97.7 73 21 142/67 97 Room Air 06/15/16 08:59 76 131/70 06/15/16 08:31 97.9 76 20 131/70 98 Room Air Height (Feet): 5 Height (Inches): 5.00 Weight (Pounds): 280 HEENT: anicteric Respiratory/Chest: lungs clear Cardiovascular: normal rate Abdomen: soft, non tender Laboratory Tests Test 06/16/16 06:15 White Blood Count 4.0 K/UL (4.8-10.8) L Red Blood Count 2.79 M/UL (4.20-5.40) L Hemoglobin 8.4 G/DL (12.0-16.0) L Hematocrit 25.9 % (37.0-47.0) L Mean Corpuscular Volume 93 FL (80-99) Mean Corpuscular Hemoglobin 30.0 PG (27.0-31.0) Mean Corpuscular Hemoglobin Concent 32.4 G/DL (32.0-36.0) Red Cell Distribution Width 13.7 % (11.6-14.8) Platelet Count 77 K/UL (150-450) L Mean Platelet Volume 7.2 FL (6.5-10.1) Neutrophils (%) (Auto) % (45.0-75.0) Lymphocytes (%) (Auto) % (20.0-45.0) Monocytes (%) (Auto) % (1.0-10.0) Eosinophils (%) (Auto) % (0.0-3.0) Basophils (%) (Auto) % (0.0-2.0) Neutrophils % (Manual) Pending Lymphocytes % (Manual) Pending Platelet Estimate Pending Platelet Morphology Pending Sodium Level Pending Potassium Level Pending Chloride Level Pending Carbon Dioxide Level Pending Blood Urea Nitrogen Pending Creatinine Pending Estimat Glomerular Filtration Rate Pending Glucose Level Pending Calcium Level Pending Current Medications Medications (Trade) Dose Ordered Sig/Pavel Route PRN Reason Start Time Stop Time Status Last Admin Dose Admin Acetaminophen (Tylenol) 650 mg Q4H PRN ORAL fever 06/09/16 20:45 07/09/16 20:44 06/15/16 17:03 Clonidine HCl (Catapres) 0.1 mg Q6H PRN ORAL for SBP >160 06/09/16 23:00 07/09/16 22:59 06/12/16 19:36 Dextrose (Dextrose 50%) STAT PRN IV Hypoglycemia 06/09/16 20:45 07/09/16 20:44 Ertapenem/Sodium Chloride (INVanz/Sodium Chloride) 55 ml @ 110 mls/hr Q24H IVPB 06/11/16 21:00 06/16/16 20:59 06/15/16 20:37 Insulin Aspart (NovoLOG) BEFORE MEALS AND HS SUBQ 06/09/16 21:00 07/09/16 20:59 06/15/16 21:55 Metoprolol Tartrate (Lopressor) 12.5 mg EVERY 12 HOURS ORAL 06/09/16 21:00 07/09/16 20:59 06/15/16 21:54 Morphine Sulfate (Morphine Sulfate) 2 mg Q4H PRN IVP Moderate Pain (Pain Scale 4-6) 06/09/16 21:00 06/16/16 20:59 06/11/16 02:16 Nitroglycerin (Ntg) 0.4 mg Q5MIN PRN SL Prn Chest Pain 06/09/16 20:30 07/09/16 20:29 Nystatin (Nystop Powder) 1 applic THREE TIMES A DAY TOPIC 06/10/16 09:00 07/10/16 08:59 06/15/16 19:00 Ondansetron HCl (Zofran) 4 mg Q6H PRN IVP Nausea & Vomiting 06/09/16 20:45 07/09/16 20:44 Pantoprazole (Protonix) 40 mg Q24HRS IVP 06/11/16 23:00 07/11/16 22:59 06/15/16 23:06 Polyethylene Glycol (Miralax) 17 gm DAILYPRN PRN ORAL Constipation 06/09/16 20:45 07/09/16 20:44 Sodium Chloride (Sodium Chloride 1000ml bag) 1,000 ml @ 75 mls/hr [id number] IVLG 06/09/16 20:45 07/09/16 20:44 06/15/16 23:06 Temazepam 15 mg 15 mg HSPRN PRN ORAL Insomnia 06/09/16 20:45 06/16/16 20:44 06/14/16 20:33 LYLA ROJAS M.D. Jun 16, 2016 06:49
[2016-06-16 07:18] LABS: ANION GAP 14 (5-15); CALCIUM 9.3 mg/dL (8.6-10.2); CARBON DIOXIDE 21 mEQ/L (20-30); CHLORIDE 103 mEQ/L (98-107); CREATININE 0.9 mg/dL (0.5-0.9); HEMOLYSIS 4; POTASSIUM 3.7 mEQ/L (3.4-4.9); SODIUM 138 mEQ/L (135-145)
[2016-06-16 08:30] VITALS: BP 152/63
[2016-06-16] MEDS ORDERED: INVANZ1 GM IVPB ×2 (08:31→08:32)
[2016-06-16] MEDS: Nystatin Powder 100,000 units/gm 15gm TOPIC SCH ×2 (08:45→12:42)
[2016-06-16] MEDS: Metoprolol Tartrate 12.5mg TAB ORAL SCH (08:45)
[2016-06-16 10:45] LABS: BAND NEUTROPHILS % (MANUAL) 0 % (0-8); BASOPHILS % (MANUAL) 0 % (0-2); EOSINOPHILS % (MANUAL) 5 % (0-3); LYMPHOCYTES % (MANUAL) 39 % (20-45); NEUTROPHILS % (MANUAL) 50 % (45-75); PLATELET ESTIMATE DECREASED; TOTAL CELLS COUNTED 100
[2016-06-16 10:46] LABS: HYPOCHROMASIA 1+; PLATELET MORPHOLOGY NORMAL
--- NOTE | 2016-06-16 11:00 | Internal Med Progress Note ---
Subjective Date of Service: Jun 16, 2016 Physician Name Katharina Pond Attending Physician Rl Tee MD Current Medications Medications (Trade) Dose Ordered Sig/Pavel Route PRN Reason Start Time Stop Time Status Last Admin Dose Admin Acetaminophen (Tylenol) 650 mg Q4H PRN ORAL fever 06/09/16 20:45 07/09/16 20:44 06/15/16 17:03 Clonidine HCl (Catapres) 0.1 mg Q6H PRN ORAL for SBP >160 06/09/16 23:00 07/09/16 22:59 06/12/16 19:36 Dextrose (Dextrose 50%) STAT PRN IV Hypoglycemia 06/09/16 20:45 07/09/16 20:44 Ertapenem/Sodium Chloride (INVanz/Sodium Chloride) 55 ml @ 110 mls/hr Q24H IVPB 06/11/16 21:00 06/16/16 20:59 06/15/16 20:37 Insulin Aspart (NovoLOG) BEFORE MEALS AND HS SUBQ 06/09/16 21:00 07/09/16 20:59 06/15/16 21:55 Metoprolol Tartrate (Lopressor) 12.5 mg EVERY 12 HOURS ORAL 06/09/16 21:00 07/09/16 20:59 06/16/16 08:45 Morphine Sulfate (Morphine Sulfate) 2 mg Q4H PRN IVP Moderate Pain (Pain Scale 4-6) 06/09/16 21:00 06/16/16 20:59 06/11/16 02:16 Nitroglycerin (Ntg) 0.4 mg Q5MIN PRN SL Prn Chest Pain 06/09/16 20:30 07/09/16 20:29 Nystatin (Nystop Powder) 1 applic THREE TIMES A DAY TOPIC 06/10/16 09:00 07/10/16 08:59 06/16/16 08:45 Ondansetron HCl (Zofran) 4 mg Q6H PRN IVP Nausea & Vomiting 06/09/16 20:45 07/09/16 20:44 Pantoprazole (Protonix) 40 mg Q24HRS IVP 06/11/16 23:00 07/11/16 22:59 06/15/16 23:06 Polyethylene Glycol (Miralax) 17 gm DAILYPRN PRN ORAL Constipation 06/09/16 20:45 07/09/16 20:44 Sodium Chloride (Sodium Chloride 1000ml bag) 1,000 ml @ 75 mls/hr [id number] IVLG 06/09/16 20:45 07/09/16 20:44 06/15/16 23:06 Temazepam 15 mg 15 mg HSPRN PRN ORAL Insomnia 06/09/16 20:45 06/16/16 20:44 06/14/16 20:33 Allergies: Coded Allergies: PENICILLINS (Unverified Allergy, Unknown, 03/22/15) Constitutional: Reports: no symptoms HEENT: Reports: no symptoms Cardiovascular: Reports: no symptoms Respiratory: Reports: no symptoms Gastrointestinal/Abdominal: Reports: no symptoms Genitourinary: Reports: no symptoms Subjective 76 YO F admitted with altered mental status, now UTI. Cover for Int Nishant-Dr Tee. S/P endoscopy 06/13/16. Objective Last Vital Signs Date Time Temp Pulse Resp B/P Pulse Ox O2 Delivery O2 Flow Rate FiO2 06/16/16 08:45 73 152/63 06/16/16 08:30 97.7 21 97 Room Air 06/13/16 07:39 3.0 06/12/16 19:54 21 Laboratory Tests Test 06/16/16 06:15 White Blood Count 4.0 K/UL (4.8-10.8) L Red Blood Count 2.79 M/UL (4.20-5.40) L Hemoglobin 8.4 G/DL (12.0-16.0) L Hematocrit 25.9 % (37.0-47.0) L Mean Corpuscular Volume 93 FL (80-99) Mean Corpuscular Hemoglobin 30.0 PG (27.0-31.0) Mean Corpuscular Hemoglobin Concent 32.4 G/DL (32.0-36.0) Red Cell Distribution Width 13.7 % (11.6-14.8) Platelet Count 77 K/UL (150-450) L Mean Platelet Volume 7.2 FL (6.5-10.1) Neutrophils (%) (Auto) % (45.0-75.0) Lymphocytes (%) (Auto) % (20.0-45.0) Monocytes (%) (Auto) % (1.0-10.0) Eosinophils (%) (Auto) % (0.0-3.0) Basophils (%) (Auto) % (0.0-2.0) Differential Total Cells Counted 100 Neutrophils % (Manual) 50 % (45-75) Lymphocytes % (Manual) 39 % (20-45) Monocytes % (Manual) 6 % (1-10) Eosinophils % (Manual) 5 % (0-3) H Basophils % (Manual) 0 % (0-2) Band Neutrophils 0 % (0-8) Platelet Estimate Decreased L Platelet Morphology Normal Hypochromasia 1+ Sodium Level 138 mEQ/L (135-145) Potassium Level 3.7 mEQ/L (3.4-4.9) Chloride Level 103 mEQ/L (98-107) Carbon Dioxide Level 21 mEQ/L (20-30) Anion Gap 14 (5-15) Blood Urea Nitrogen 12 mg/dL (7-23) Creatinine 0.9 mg/dL (0.5-0.9) Estimat Glomerular Filtration Rate mL/min (>60) Glucose Level 100 mg/dL (74-106) Calcium Level 9.3 mg/dL (8.6-10.2) Intake and Output 06/15/16 06/16/16 19:00 07:00 Intake Total 1100 ml 855 ml Output Total 750 ml 1250 ml Balance 350 ml -395 ml Intake Oral 500 ml 180 ml IV Total 600 ml 675 ml Output Urine Total 750 ml 1250 ml # Bowel Movements 1 Objective General Appearance: WD/WN, no apparent distress, alert, obese EENT: PERRL/EOMI, normal ENT inspection Neck: non-tender, normal alignment, supple Cardiovascular: normal peripheral pulses, normal rate, regular rhythm, no gallop/murmur, no JVD Respiratory/Chest: chest wall non-tender, lungs clear, normal breath sounds, no respiratory distress, no accessory muscle use Abdomen: normal bowel sounds, non tender, soft, no organomegaly, no mass Extremities: normal range of motion, non-tender Neurologic: case technician II-XII grossly normal Skin: normal pigmentation, warm/dry Assessment/Plan Problem List: (1) Peripheral autonomic neuropathy due to diabetes mellitus (2) CHF (congestive heart failure) (3) Altered mental status (4) UTI (urinary tract infection) Assessment & Plan: ESBL E. coli and ESBL kleb pneumo. See ID note. Cont ertapenem for per ID for 2 more days (5) Diabetes mellitus Assessment & Plan: Cont novolog sliding scale. (6) Hypertension Assessment & Plan: Cont metoprolol (7) Hypercholesteremia (8) Sleep apnea, obstructive (9) GERD (gastroesophageal reflux disease) (10) Cardiomegaly (11) Obesity (12) Cirrhosis (13) Gastrointestinal hemorrhage Assessment & Plan: S/P endoscopy 06/13/16 - See GI note.. (14) Anemia (15) Infection due to ESBL-producing Escherichia coli (16) Urinary tract infection due to ESBL Klebsiella Status: stable Assessment/Plan Discharge planning: [facility] fac today 06/16/16. KATHARINA POND Jun 16, 2016 11:00
[2016-06-16 11:23] VITALS: BP 151/79
--- NOTE | 2016-06-16 21:26 | General Progress Note ---
Assessment/Plan Assessment/Plan Assessment - DURANT/cirrhosis - black stools due to PO FeSO4 - anemia with drop in H&H - ? dilutional - DM - h/o Gt - removed Recommendations - monitor H&H - Transfuse PRN - PPI - d/c planning - outpt f/u Subjective Allergies: Coded Allergies: PENICILLINS (Unverified Allergy, Unknown, 03/22/15) Subjective resting comfortably no events no abd complaints for discharge today Objective Last 24 Hour Vital Signs Date Time Temp Pulse Resp B/P Pulse Ox O2 Delivery O2 Flow Rate FiO2 06/16/16 11:23 97.9 76 20 151/79 96 Room Air 06/16/16 08:45 73 152/63 06/16/16 08:30 97.7 73 21 152/63 97 Room Air 06/16/16 04:00 97.7 79 18 133/69 100 Room Air 06/16/16 00:00 97.2 81 20 148/72 99 Room Air 06/15/16 21:54 71 141/66 Intake and Output 06/15/16 06/16/16 19:00 07:00 Intake Total 1100 ml 855 ml Output Total 750 ml 1250 ml Balance 350 ml -395 ml Intake Oral 500 ml 180 ml IV Total 600 ml 675 ml Output Urine Total 750 ml 1250 ml # Bowel Movements 1 Laboratory Tests 06/16/16 06:15: White Blood Count 4.0L, Red Blood Count 2.79L, Hemoglobin 8.4L, Hematocrit 25.9L , Mean Corpuscular Volume 93, Mean Corpuscular Hemoglobin 30.0, Mean Corpuscular Hemoglobin Concent 32.4, Red Cell Distribution Width 13.7, Platelet Count 77L, Mean Platelet Volume 7.2, Neutrophils (%) (Auto) , Lymphocytes (%) ( Auto) , Monocytes (%) (Auto) , Eosinophils (%) (Auto) , Basophils (%) (Auto) , Differential Total Cells Counted 100, Neutrophils % (Manual) 50, Lymphocytes % ( Manual) 39, Monocytes % (Manual) 6, Eosinophils % (Manual) 5H, Basophils % ( Manual) 0, Band Neutrophils 0, Platelet Estimate DecreasedL, Platelet Morphology Normal, Hypochromasia 1+, Sodium Level 138, Potassium Level 3.7, Chloride Level 103, Carbon Dioxide Level 21, Anion Gap 14, Blood Urea Nitrogen 12, Creatinine 0.9, Estimat Glomerular Filtration Rate , Glucose Level 100, Calcium Level 9.3 Height (Feet): 5 Height (Inches): 5.00 Weight (Pounds): 280 Objective WDWN WW NCAT supple CTA RRR Abd soft NT ND no edema non focal KIERSTEN DAVIES Jun 16, 2016 21:26
--- NOTE | 2016-06-17 06:51 | Discharge Summary ---
Discharge Summary Hospital Course Date of Admission Jun 08, 2016 at 18:10 Date of Discharge Jun 16, 2016 at 12:44 Admitting Diagnosis ams dehydration HPI Angela Inman is a 76 year old female who was admitted on Jun 08, 2016 at 18: 10 for Altered Mental Status, Dehydration Hospital Course dc summary #[id number] Discharge Medications Continued Medications: Acetaminophen (Acetaminophen) 650 Mg/20.3 Ml Solution 650 MG ORAL Q6H PRN for Prn Headache/Temp > 101, ML 0 Refills Ascorbic Acid* (Vitamin C*) 500 Mg Tablet Unknown Dose ORAL DAILY, #30 TAB 0 Refills Aspirin* (Aspir 81*) 81 Mg Tablet.dr 81 MG ORAL DAILY, TAB Atorvastatin Calcium* (Atorvastatin Calcium*) 20 Mg Tablet 20 MG ORAL BEDTIME, TAB Calcium Carbonate/Mag Carb/Fa (Magnebind 400 Rx Tablet) 1 Each Tablet 1 EACH PO, TAB Clopidogrel Bisulfate* (Plavix*) 75 Mg Tablet 75 MG ORAL DAILY, TAB Cranberry Fruit Concentrate (Cranberry) 450 Mg Capsule 450 MG PO DAILY, CAP Diphenhydramine Hcl* (Benadryl*) 25 Mg Capsule 25 MG ORAL EVERY 8 HOURS PRN for Itching, CAP Docusate Sodium* (Docusate Sodium*) 100 Mg Capsule 100 MG ORAL BID, CAP Ertapenem Sodium* (INVanz*) 1 Gm Vial.port 1 GM IVPB Q24H for 2 Days, VIAL Ferrous Gluconate (Ferrous Gluconate) 324 Mg Tablet 324 MG PO DAILY, TAB Ferrous Sulfate (Ferrous Sulfate) 325 Mg Tablet.dr 325 MG PO DAILY Furosemide* (Lasix*) 20 Mg Tablet 20 MG PO DAILY, #10 TAB Take 1 tablet by mouth daily Gabapentin* (Gabapentin*) 300 Mg Capsule 300 MG ORAL THREE TIMES A DAY, CAP 0 Refills Hydrocodone/Acetaminophen (Hydrocodon-Acetaminophn 10-325) 1 Ea Tab 1 TAB ORAL Q6H PRN for For Pain, #30 TAB 0 Refills Insulin Aspart (Novolog) 100 Unit/1 Ml Vial BEFORE MEALS AND HS Insulin Detemir (Levemir) 100 Unit/1 Ml Vial 0 SUBQ BEDTIME, VIAL Insulin Glargine (Lantus) 100 Unit/1 Ml Insuln.pen 55 UNIT SUBQ BID, #1 EA 0 Refills Insulin Lispro (Humalog Kwikpen) 200 Unit/1 Ml Insuln.pen UNIT SQ AC+HS PRN for Hyperglycemia, EA Lactulose (Lactulose*) 20 Gm/30 Ml Solution 30 ML ORAL THREE TIMES A DAY, ML 0 Refills Losartan Potassium* (Losartan Potassium*) 25 Mg Tablet 12.5 MG ORAL DAILY, TAB Magnesium Chloride (Slow-Mag) 64 Mg Tabcr 1 TAB PO DAILY, TAB Metoclopramide Hcl* (Reglan*) 5 Mg Tablet 5 MG ORAL BID, TAB Metoprolol Tartrate* (Metoprolol Tartrate*) 25 Mg Tablet 12.5 MG ORAL EVERY 12 HOURS, TAB Nateglinide* (Starlix*) 60 Mg Tablet 60 MG ORAL THREE TIMES A DAY, TAB Nateglinide* (Starlix*) 60 Mg Tablet 90 MG ORAL BEFORE MEALS, TAB Ranitidine Hcl* (Zantac*) 150 Mg Tablet 150 MG ORAL DAILY, TAB Sertraline Hcl* (Sertraline Hcl*) 25 Mg Tablet 50 MG ORAL DAILY, TAB Sertraline Hcl* (Sertraline Hcl*) 25 Mg Tablet 25 MG ORAL DAILY, TAB Simethicone* (Simethicone*) 80 Mg Tab.chew 160 MG ORAL Q8H PRN for Abdominal cramps, #20 TAB 0 Refills Zolpidem Tartrate* (Ambien*) 5 Mg Tablet 5 MG ORAL BEDTIME PRN for Insomnia, TAB Discharge Condition Upon Discharge: stable Discharge Disposition Patient was discharged to [facility] (04) Discharge Diagnoses: Discharge Instructions Discharge Instructions Special Instructions I have been assigned to complete a D/C Summary on this account. I was not involved in the patient management Chana Chen NP (Vanchtein) Jun 17, 2016 06:51
--- NOTE | 2016-06-17 23:28 | Discharge Summary 2 SIG ---
DATE OF ADMISSION: 06/08/2016 DATE OF DISCHARGE: 06/16/2016 REASON FOR ADMISSION: 76-year-old female was brought by ambulance from the [facility], where she resides, for increased generalized weakness and altered mental status. The patient has a prior history of diabetes mellitus. The patient had a gradual onset of symptoms as per the nursing staff. The patient was a poor historian, alert, but unable to provide any significant information. Workup in the emergency room revealed no fever, no leukocytosis, elevated BUN 52, creatinine 1.8, lactic acid within normal limits. Urinalysis with evidence of UTI, elevated AST of 70, low albumin 3.0. Anemia with hemoglobin of 10.1, hematocrit of 32.2. The patient was started on the IV fluids and given broad spectrum antibiotics, after being pancultured, and subsequently was admitted to the hospital for further management. ADMITTING DIAGNOSES: 1. Altered level of consciousness. 2. Dehydration. 3. Acute kidney injury/acute tubular necrosis, secondary to dehydration. 4. Urinary tract infection. 5. Diabetes mellitus. 6. Anemia. HOSPITAL STAY: The patient admitted. ID and GI consult were requested. Urine culture positive for E. coli ESBL and Klebsiella pneumoniae ESBL. Blood culture positive for Staph coagulase-negative. The patient was on antibiotics as per ID recommendation. Per ID, blood culture 2/4 Staph coagulase-negative, probably contamination. The patient with a prior history of Staph coagulase-negative contamination. Per ID recommendations, the patient to continue antibiotics for additional two days at the [facility]. PICC line placed. The patient had no fever and no leukocytosis. GI seen the patient due to the reports of the black stool. Subsequently, EGD was done. There was no evidence of bleeding ulcer or varices. According to the GI black stool likely secondary to taking oral iron supplement. There was some drop in hemoglobin and hematocrit, for which the patient did not require transfusion likely dilutional. The patient had no abdominal complaints. No nausea no vomiting. No abdominal pain. Started on PPI, tolerated diet. He had a history of G-tube, which was removed and currently able to tolerate diet. Chest x-ray was negative. No evidence of acute disease. Renal ultrasound was done in lieu of evidence of acute kidney injury on the day of admission. Renal ultrasound showed normal echogenicity bilateral kidney. No hydronephrosis. No focal abnormality. Wound care nurse seen the patient for multiple superficial decubitus present on admission, which were not grossly infected and recommended wound care, which will be continued at the detention facility. The patient was on the IV fluids. The renal parameters slowly returned down to normal. Acute kidney injury/acute tubular necrosis most likely was secondary to dehydration, which resolved with IV fluids. Hemoglobin and hematocrit on the baseline. Iron panel stable. Noted elevated CEA of 11.6, stool OB positive, recommended colonoscopy as outpatient . Hepatitis panel was negative, was checked in lieu of the elevated AST. The patient with history of cirrhosis and DURANT, GI recommended outpatient treatment for fatty liver disease . Blood pressure was managed with beta-dahlia, and was stable. Blood sugar was managed with sliding scale of insulin, stable. Acute level of consciousness/acute encephalopathy was likely secondary to infectious process, which resolved. Patient's mental status back to baseline. The patient was stable for discharge. DISCHARGE DIAGNOSES: 1. Acute metabolic encephalopathy secondary to urinary tract infection. 2. Urinary tract infection/extended spectrum beta-lactamases Escherichia coli, extended spectrum beta-lactamases Klebsiella pneumoniae. 3. Diabetes mellitus. 4. Diabetic neuropathy. 5. Nonalcoholic steatohepatitis . 6. Anemia. 7. Possible gastrointestinal bleeding, status post endoscopy. 8. Gastroesophageal reflux disease. 9. Acute kidney injury/acute tubular necrosis, secondary to dehydration, resolved. 10. Multiple superficial decubitus present on admission, not grossly infected. 11. Obesity. 12. Hypercholesteremia. 13. Obstructive sleep apnea. 14. Diabetes neuropathy. DISCHARGE MEDICATIONS: See medication reconciliation list. Continue IV antibiotics for additional two days as recommended by ID. DISCHARGE INSTRUCTIONS: The patient discharged to detention facility. FOLLOWUP: Follow up with medical doctor at the facility. Rl Tee M.D. I have been assigned to dictate discharge summary on this account and I was not involved in the patient's management. Chana Chen (Vanchtein) N.P. DR: Drake JOB#: [id number] CC: HAL
--- NOTE | 2016-06-18 23:08 | Operative Note - Dictated ---
DATE OF OPERATION: 06/13/2016 PROCEDURE: Upper gastrointestinal endoscopy. SURGEON: Yokasta Torres M.D. ANESTHESIA: Please see the separate anesthesiologist notes for details. PREOPERATIVE DIAGNOSIS: Black stools suggestive of gastrointestinal bleeding. POSTOPERATIVE DIAGNOSIS: Normal upper endoscopy. DESCRIPTION OF PROCEDURE: The procedure, its risks, indications, alternatives, and possible complications were explained to the patient's decision maker. Informed consent was obtained. The patient was then sedated in the left lateral decubitus position. A diagnostic upper endoscope was introduced through the oropharynx and advanced to the duodenum without difficulty. The endoscope was then gradually withdrawn and the mucosa was examined carefully. Examination of the upper gastric mucosa did not reveal any significant abnormalities. The endoscope was removed. The patient was sent to recovery in good condition. COMPLICATIONS: None. RECOMMENDATIONS: 1. Resume oral diet. 2. Follow blood count. 3. Followup symptoms. Yokasta Torres M.D. DR: GABRIEL JOB#: [id number] CC:
== END 2016-06-16 12:44 | DRG 689 ==
LOC: ENRESERVTM → ENRESERVDT → EDBD 15:38 → EMR 17:12 → 2E 18:10 → EDBEDREQ 20:08 → 2E 06-09 04:46 → 4E 06-09 19:00
PROC: 02HV33Z Insertion of Infusion Device into Superior Vena Cava, Percutaneous Approach (ICD-10-PCS; 2016-06-12)
PROC: 0DJ08ZZ Inspection of Upper Intestinal Tract, Via Natural or Artificial Opening Endoscopic (ICD-10-PCS; principal; 2016-06-13 07:11)
DX: N39.0 Urinary tract infection, site not specified (principal); N17.0 Acute kidney failure with tubular necrosis; G93.41 Metabolic encephalopathy; L89.153 Pressure ulcer of sacral region, stage 3; K92.2 Gastrointestinal hemorrhage, unspecified; I42.9 Cardiomyopathy, unspecified; E11.21 Type 2 diabetes mellitus with diabetic nephropathy; L89.313 Pressure ulcer of right buttock, stage 3; D62 Acute posthemorrhagic anemia; Z68.42 Body mass index [BMI] 45.0-49.9, adult; K74.60 Unspecified cirrhosis of liver; I12.9 Hypertensive chronic kidney disease with stage 1 through stage 4 chronic kidney disease, or unspecified chronic kidney disease; N18.3 Chronic kidney disease, stage 3 (moderate); E86.0 Dehydration; B96.20 Unspecified Escherichia coli [E. coli] as the cause of diseases classified elsewhere; B96.1 Klebsiella pneumoniae [K. pneumoniae] as the cause of diseases classified elsewhere; Z16.12 Extended spectrum beta lactamase (ESBL) resistance; K75.81 Nonalcoholic steatohepatitis (NASH); G47.33 Obstructive sleep apnea (adult) (pediatric); E66.9 Obesity, unspecified; E78.00 Pure hypercholesterolemia, unspecified; Z79.4 Long term (current) use of insulin; Z88.0 Allergy status to penicillin; K76.0 Fatty (change of) liver, not elsewhere classified; M19.90 Unspecified osteoarthritis, unspecified site; K44.9 Diaphragmatic hernia without obstruction or gangrene; Z96.659 Presence of unspecified artificial knee joint; E83.52 Hypercalcemia; E11.65 Type 2 diabetes mellitus with hyperglycemia; E11.43 Type 2 diabetes mellitus with diabetic autonomic (poly)neuropathy; D64.9 Anemia, unspecified; Z22.322 Carrier or suspected carrier of Methicillin resistant Staphylococcus aureus
CPT/HCPCS: 36415; 36569; 71010; 76775; 76937; 80048; 80053; 81003; 82105; 82270; 82378; 82436; 82550; 82553; 82607; 82746; 82962; 83540; 83550; 83605; 83615; 83880; 83930; 83935; 84133; 84300; 84484; 85007; 85025; 85044; 85060; 85610; 85651; 85730; 86703; 86705; 86709; 86803; 86850; 86900; 86901; 87040; 87081; 87086; 87181; 87340; 89050; 93005; 94003; 94150; 94664; J1815

== ENCOUNTER 2016-06-24 07:10 | Inpatient (IN) | payer MEDICARE, MEDICAID ==
[~2016-06-24] VITALS: Ht 152.4 cm; Wt 95.7 kg
--- NOTE | 2016-06-24 07:13 | Emergency Room Report ---
History of Present Illness General Source: Patient, Medical Record, EMS Present Illness HPI 76 YO F GLENNY from [facility] sent by PMD Dr Tee for "low H&H and fever." Patient herself, alert and oriented, has no complaints. Endorses cough "for long time", frequent UTIs, but denies history of rectal bleed, dark stool, vaginal bleeding/fibroid. States she has anemia. Endorses HTN, DM as well. Allergies: Coded Allergies: PENICILLINS (Unverified Allergy, Unknown, 03/22/15) Patient History Past Medical History: DM, HTN Past Surgical History: none Pertinent Family History: none Social History: Denies: alcohol use, drug use, smoking Now: No Immunizations: UTD Reviewed Nursing Documentation: PMH: Agreed, PSxH: Agreed Review of Systems All Other Systems: negative except mentioned in HPI Physical Exam Sp02 EP Interpretation: reviewed, normal, abnormal General Appearance: normal inspection, well appearing, no apparent distress, alert, GCS 15, non-toxic Head: normocephalic, atraumatic Eyes: bilateral eye EOMI, bilateral eye PERRL ENT: normal ENT inspection, hearing grossly normal, normal voice Neck: normal inspection, full range of motion, supple, no bony tend Respiratory: normal inspection, lungs clear, normal breath sounds, no rhonchi, no respiratory distress, no retraction, no accessory muscle use, no wheezing Cardiovascular #1: regular rate, rhythm, no edema Gastrointestinal: normal inspection, normal bowel sounds, non tender, soft, no guarding, no hernia Genitourinary: no CVA tenderness Musculoskeletal: normal inspection, back normal, normal range of motion, Daija' s Sign negative Neurologic: normal inspection, alert, oriented x3, responsive, 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 I attest that this information is true, accurate and complete to the best of my knowledge. I understand that any falsification, omission, or concealment of material fact may subject me to administrative, civil, or criminal liability. This patient warrants hospital admission for extreme of age and has a condition that cannot be treated as outpatient. Diagnostic Impression: Primary Impression: Fever Qualified Codes: R50.9 - Fever, unspecified Additional Impressions: UTI (urinary tract infection) Qualified Codes: N30.01 - Acute cystitis with hematuria Anemia Qualified Codes: D64.9 - Anemia, unspecified ER Course Labs: Hb 8.5. UA grossly infected, + nitrite. Mild RAMYA CXR: No change from previous, no obvious lobar PNA A: PCN allergic: Given Vanc and Levofloxacin 2U PRBCs ordered in ED Tylenol given for fever Endorses to Dr Tee at 908am for med/surg admission Vitals stable. No sepsis EKG Diagnostic Results Rate: normal Rhythm: NSR ST Segments: no acute changes Rhythm Strip Diag. Results EP Interpretation: yes Rate: 75 Rhythm: NSR, no PVC's, no ectopy Chest X-Ray Diagnostic Results EP Interpretation: Yes Findings: no consolidation, no effusion, no pneumothorax, no acute cardiopulmonary disease Number of Views: 1 Status: improved Disposition: ADMITTED INPATIENT Condition: Serious AURELIO TITUS M.D. Jun 24, 2016 07:13
[2016-06-24] MEDS ORDERED: Vancomycin 1.5gm/D5W 300ml 325 ML IVPB ONE (07:15)
[2016-06-24 07:18] VITALS: BP 145/81
[2016-06-24 08:01] LABS: APPEARANCE,URINE CLEAR; KETONES,URINE NEGATIVE (NEGATIVE); LEUKOCYTE ESTERASE ,URINE 3+ (NEGATIVE); NITRITE,URINE POSITIVE (NEGATIVE); PH,URINE 6 (4.5-8.0); PROTEIN,URINE 1+ (NEGATIVE); UROBILINOGEN,URINE NORMAL MG/DL (0.0-1.0)
[2016-06-24 08:04] LABS: INR 1.3 (0.9-1.1); PROTHROMBIN TIME 13.4 SEC (9.30-11.50)
[2016-06-24 08:10] LABS: ALANINE AMINOTRANSFERASE 29 U/L (3-33); ALBUMIN/GLOBULIN RATIO 0.5 (1.0-2.7); ANION GAP 13 (5-15); ASPARTATE AMINO TRANSFERASE 112 U/L (5-40); CALCIUM 9.8 mg/dL (8.6-10.2); CARBON DIOXIDE 23 mEQ/L (20-30); CHLORIDE 100 mEQ/L (98-107); CREATININE 1.3 mg/dL (0.5-0.9); HEMOLYSIS 4; POTASSIUM 4.4 mEQ/L (3.4-4.9); SODIUM 136 mEQ/L (135-145); TOTAL PROTEIN 6.6 g/dL (6.6-8.7); TROPONIN I < 0.30 ng/mL (<=0.30)
[2016-06-24 08:16] VITALS: BP 170/60
[2016-06-24 08:18] LABS: MEAN CORPUSCULAR HEMOGLOBIN 29.3 PG (27.0-31.0); MEAN CORPUSCULAR VOLUME 94 FL (80-99); MEAN PLATELET VOLUME 7.7 FL (6.5-10.1); PLATELET COUNT 83 K/UL (150-450); RED BLOOD COUNT 2.91 M/UL (4.20-5.40); RED CELL DISTRIBUTION WIDTH 13.8 % (11.6-14.8); WHITE BLOOD COUNT 4.5 K/UL (4.8-10.8)
[2016-06-24 08:19] LABS: BACTERIA,URINE MODERATE /HPF; SQUAMOUS EPITHELIAL CELL,UR FEW /LPF (NONE/OCC); WBC,URINE 20-30 /HPF (0 - 2); YEAST,URINE OCCASIONAL /HPF
[2016-06-24 08:20] LABS: CKMB < 1.5 ng/mL (< 3.8)
[2016-06-24 09:21] LABS: BAND NEUTROPHILS % (MANUAL) 0 % (0-8); BASOPHILS % (MANUAL) 0 % (0-2); EOSINOPHILS % (MANUAL) 0 % (0-3); LYMPHOCYTES % (MANUAL) 19 % (20-45); NEUTROPHILS % (MANUAL) 71 % (45-75); PLATELET ESTIMATE DECREASED; PLATELET MORPHOLOGY NORMAL; TOTAL CELLS COUNTED 100
[2016-06-24 09:22] LABS: HYPOCHROMASIA 1+
[2016-06-24 09:30] VITALS: BP 110/73
[2016-06-24] MEDS ORDERED: Nitroglycerin Subl 0.4mg tab (Bottle Of 25) SL PRN (10:00)
[2016-06-24] MEDS ORDERED: Miralax 17gm pkt ORAL PRN (10:00)
[2016-06-24] MEDS ORDERED: Mylanta II UD 30ml ORAL PRN (10:00)
--- NOTE | 2016-06-24 11:13 | Diagnostic Imaging Report ---
Indication: SOB Technique: One view of the chest Comparison: 06/08/2016 Findings: The heart is upper limits of normal in size. Aorta is tortuous patient's chin obscures the upper mediastinum. No definite acute infiltrates or effusions or significant interim change Impression: No definite acute process. Findings as noted
[2016-06-24 11:47] VITALS: BP 95/48
[2016-06-24] MEDS: NovoLOG Insulin Flexpen SUBQ SCH ×3 (12:00→20:50)
[2016-06-24] MEDS: Cefepime HCl 1 GM in D5W 55 ML IV SCH (12:51)
[2016-06-24 16:00] VITALS: BP 102/57
--- NOTE | 2016-06-24 17:40 | Consultation ---
History of Present Illness General Date patient seen: Jun 24, 2016 Chief Complaint: Abnormal Labs Referring physician: Dr. Guthrie Reason for Consultation: Inpatient management and cough Present Illness HPI 76 year old female with hx of Cirrhosis, COPD, Coagulopathy, CHf, recently discharged from [facility] to alf, brought in because of episodes of fever and anemia. Pt is complaining only of cough and weakness and doesn't have any other complains. Allergies: Coded Allergies: PENICILLINS (Unverified Allergy, Unknown, 03/22/15) Medication History Scheduled Ascorbic Acid* (Vitamin C*), Unknown Dose ORAL DAILY, (Reported) Aspirin* (Aspir 81*), 81 MG ORAL DAILY, (Reported) Atorvastatin Calcium* (Atorvastatin Calcium*), 20 MG ORAL BEDTIME, (Reported) Clopidogrel Bisulfate* (Plavix*), 75 MG ORAL DAILY, (Reported) Cranberry Fruit Concentrate (Cranberry), 450 MG PO DAILY, (Reported) Docusate Sodium* (Docusate Sodium*), 100 MG ORAL BID, (Reported) Ertapenem Sodium* (INVanz*), 1 GM IVPB Q24H, (Reported) Ertapenem Sodium* (INVanz*), 1 GM IVPB Q24H, (Reported) Ferrous Gluconate (Ferrous Gluconate), 324 MG PO DAILY, (Reported) Ferrous Sulfate (Ferrous Sulfate), 325 MG PO DAILY, (Reported) Furosemide* (Lasix*), 20 MG PO DAILY, (Reported) Gabapentin* (Gabapentin*), 300 MG ORAL THREE TIMES A DAY, (Reported) Insulin Aspart (Novolog), BEFORE MEALS AND HS, (Reported) Insulin Detemir (Levemir), 0 SUBQ BEDTIME, (Reported) Insulin Glargine (Lantus), 55 UNIT SUBQ BID, (Reported) Lactulose (Lactulose*), 30 ML ORAL THREE TIMES A DAY, (Reported) Losartan Potassium* (Losartan Potassium*), 12.5 MG ORAL DAILY, (Reported) Magnesium Chloride (Slow-Mag), 1 TAB PO DAILY, (Reported) Metoclopramide Hcl* (Reglan*), 5 MG ORAL BID, (Reported) Metoprolol Tartrate* (Metoprolol Tartrate*), 12.5 MG ORAL EVERY 12 HOURS, ( Reported) Nateglinide* (Starlix*), 60 MG ORAL THREE TIMES A DAY, (Reported) Nateglinide* (Starlix*), 90 MG ORAL BEFORE MEALS, (Reported) Nitrofurantoin Monohyd/M-Cryst* (Macrobid 100 Mg*), 100 MG ORAL EVERY 12 HOURS Nitrofurantoin Monohyd/M-Cryst* (Macrobid 100 Mg*), 100 MG ORAL BID Ranitidine Hcl* (Zantac*), 150 MG ORAL DAILY, (Reported) Sertraline Hcl* (Sertraline Hcl*), 50 MG ORAL DAILY, (Reported) Sertraline Hcl* (Sertraline Hcl*), 25 MG ORAL DAILY, (Reported) [mulitvital-m], 1 TAB PO DAILY, (Reported) Scheduled PRN Acetaminophen (Acetaminophen), 650 MG ORAL Q6H PRN for Prn Headache/Temp > 101, (Reported) Diphenhydramine Hcl* (Benadryl*), 25 MG ORAL EVERY 8 HOURS PRN for Itching, ( Reported) Hydrocodone/Acetaminophen (Hydrocodon-Acetaminophn 10-325), 1 TAB ORAL Q6H PRN for For Pain, (Reported) Insulin Lispro (Humalog Kwikpen), UNIT SQ AC+HS PRN for Hyperglycemia, (Reported ) Ondansetron* (Zofran*), 4 MG IV Q6H PRN for Nausea & Vomiting, (Reported) Simethicone* (Simethicone*), 160 MG ORAL Q8H PRN for Abdominal cramps, (Reported ) Zolpidem Tartrate* (Ambien*), 5 MG ORAL BEDTIME PRN for Insomnia, (Reported) Miscellaneous Medications Calcium Carbonate/Mag Carb/Fa (Magnebind 400 Rx Tablet), 1 EACH PO, (Reported) Patient History Healthcare decision maker OLIVIA CHAUHAN (DAUGHTER) Resuscitation status Full Code Advanced Directive on File Past Medical/Surgical History Past Medical/Surgical History: (1) Anemia (2) Sleep apnea, obstructive (3) Hypertension (4) CHF (congestive heart failure) (5) Cirrhosis (6) Obesity (7) Diabetes mellitus Review of Systems Constitutional: Reports: fever, malaise Respiratory: Reports: cough, shortness of breath, sputum Physical Exam General Appearance: WD/WN Lines, tubes and drains: peripheral HEENT: normocephalic, atraumatic Neck: non-tender, normal alignment Respiratory/Chest: chest wall non-tender, crackles/rales Cardiovascular/Chest: normal peripheral pulses Abdomen: normal bowel sounds, non tender Genitourinary/Rectal: normal genital exam Last 24 Hour Vital Signs Date Time Temp Pulse Resp B/P Pulse Ox O2 Delivery O2 Flow Rate FiO2 06/24/16 16:37 98.2 06/24/16 16:00 98.2 71 17 102/57 95 Room Air 06/24/16 11:47 98.1 72 18 95/48 99 Room Air 06/24/16 10:45 101.3 82 18 110/73 98 Room Air 2.0 06/24/16 09:30 101.3 82 18 110/73 98 Room Air 06/24/16 08:16 101.3 75 16 170/60 97 Room Air 06/24/16 07:18 99.7 90 19 145/81 99 Room Air 06/24/16 07:09 99.7 77 20 127/65 100 Nasal Cannula 2.0 Laboratory Tests Test 06/24/16 07:21 White Blood Count 4.5 K/UL (4.8-10.8) L Red Blood Count 2.91 M/UL (4.20-5.40) L Hemoglobin 8.5 G/DL (12.0-16.0) L Hematocrit 27.5 % (37.0-47.0) L Mean Corpuscular Volume 94 FL (80-99) Mean Corpuscular Hemoglobin 29.3 PG (27.0-31.0) Mean Corpuscular Hemoglobin Concent 31.0 G/DL (32.0-36.0) L Red Cell Distribution Width 13.8 % (11.6-14.8) Platelet Count 83 K/UL (150-450) L Mean Platelet Volume 7.7 FL (6.5-10.1) Neutrophils (%) (Auto) % (45.0-75.0) Lymphocytes (%) (Auto) % (20.0-45.0) Monocytes (%) (Auto) % (1.0-10.0) Eosinophils (%) (Auto) % (0.0-3.0) Basophils (%) (Auto) % (0.0-2.0) Differential Total Cells Counted 100 Neutrophils % (Manual) 71 % (45-75) Lymphocytes % (Manual) 19 % (20-45) L Monocytes % (Manual) 10 % (1-10) Eosinophils % (Manual) 0 % (0-3) Basophils % (Manual) 0 % (0-2) Band Neutrophils 0 % (0-8) Platelet Estimate Decreased L Platelet Morphology Normal Hypochromasia 1+ Prothrombin Time 13.4 SEC (9.30-11.50) H Prothromb Time International Ratio 1.3 (0.9-1.1) H Activated Partial Thromboplast Time 31 SEC (23-33) Urine Color Pale yellow Urine Appearance Clear Urine pH 6 (4.5-8.0) Urine Specific [place] 1.010 (1.005-1.035) Urine Protein 1+ (NEGATIVE) H Urine Glucose (UA) Negative (NEGATIVE) Urine Ketones Negative (NEGATIVE) Urine Occult Blood 4+ (NEGATIVE) H Urine Nitrite Positive (NEGATIVE) H Urine Bilirubin Negative (NEGATIVE) Urine Urobilinogen Normal MG/DL (0.0-1.0) Urine Leukocyte Esterase 3+ (NEGATIVE) H Urine RBC 5-10 /HPF (0 - 2) H Urine WBC 20-30 /HPF (0 - 2) H Urine Squamous Epithelial Cells Few /LPF (NONE/OCC) Urine Bacteria Moderate /HPF (NONE) H Urine Yeast Occasional /HPF (NONE) H Sodium Level 136 mEQ/L (135-145) Potassium Level 4.4 mEQ/L (3.4-4.9) Chloride Level 100 mEQ/L (98-107) Carbon Dioxide Level 23 mEQ/L (20-30) Anion Gap 13 (5-15) Blood Urea Nitrogen 24 mg/dL (7-23) H Creatinine 1.3 mg/dL (0.5-0.9) H Estimat Glomerular Filtration Rate mL/min (>60) Glucose Level 54 mg/dL (74-106) L Calcium Level 9.8 mg/dL (8.6-10.2) Total Bilirubin 0.6 mg/dL (0.0-1.2) Aspartate Amino Transf (AST/SGOT) 112 U/L (5-40) H Alanine Aminotransferase (ALT/SGPT) 29 U/L (3-33) Alkaline Phosphatase 158 U/L (35-104) H Total Creatine Kinase 30 U/L (26-140) Creatine Kinase MB < 1.5 ng/mL (< 3.8) Creatine Kinase MB Relative Index Troponin I < 0.30 ng/mL (<=0.30) Total Protein 6.6 g/dL (6.6-8.7) Albumin 2.4 g/dL (3.5-5.2) L Globulin 4.2 g/dL Albumin/Globulin Ratio 0.5 (1.0-2.7) L Height (Feet): 5 Weight (Pounds): 211 Medications Current Medications Medications (Trade) Dose Ordered Sig/Pavel Route PRN Reason Start Time Stop Time Status Last Admin Dose Admin Acetaminophen (Tylenol) 650 mg Q4H PRN ORAL T>100.5 06/24/16 10:00 07/24/16 09:59 Al Hydroxide/Mg Hydroxide (Mylanta II) 30 ml Q6H PRN ORAL dyspepsia 06/24/16 10:00 07/24/16 09:59 Albuterol/ Ipratropium 3 ml 3 ml Q4H PRN HHN Shortness of Breath 06/24/16 10:00 06/29/16 09:59 Cefepime HCl/ Dextrose (Maxipime/D5W) 55 ml @ 110 mls/hr Q24H IV 06/24/16 12:00 07/01/16 11:59 06/24/16 12:51 Clopidogrel Bisulfate (Plavix) 75 mg DAILY ORAL 06/25/16 09:00 07/25/16 08:59 Dextrose (Dextrose 50%) STAT PRN IV Hypoglycemia 06/24/16 10:00 07/24/16 09:59 Insulin Aspart (NovoLOG) BEFORE MEALS AND HS SUBQ 06/24/16 12:00 07/24/16 11:59 Nitroglycerin (Ntg) 0.4 mg Q5M PRN SL Prn Chest Pain 06/24/16 10:00 07/24/16 09:59 Ondansetron HCl (Zofran) 4 mg Q6H PRN IVP Nausea & Vomiting 06/24/16 10:00 07/24/16 09:59 Polyethylene Glycol (Miralax) 17 gm DAILYPRN PRN ORAL Constipation 06/24/16 10:00 07/24/16 09:59 Temazepam (Restoril) 15 mg HSPRN PRN ORAL Insomnia 06/24/16 21:00 07/01/16 20:59 Assessment/Plan Problem List: (1) Sepsis ICD Codes: A41.9 - Sepsis, unspecified organism SNOMED: 83811323 (2) Anemia ICD Codes: D64.9 - Anemia, unspecified SNOMED: 959222048 Qualifiers: Qualified Codes: D64.9 - Anemia, unspecified (3) COPD (chronic obstructive pulmonary disease) with emphysema ICD Codes: J43.9 - Emphysema, unspecified SNOMED: 86400722 (4) Sleep apnea ICD Codes: G47.30 - Sleep apnea, unspecified SNOMED: 31118689 (5) Cirrhosis ICD Codes: K74.60 - Unspecified cirrhosis of liver SNOMED: 40489630 (6) Obesity ICD Codes: E66.9 - Obesity, unspecified SNOMED: 443875791 (7) DM (diabetes mellitus) ICD Codes: E11.9 - Type 2 diabetes mellitus without complications SNOMED: 72894670 Assessment/Plan respiratory treatment IV antibiotics antitussives prbc prn anemia w/u check stool for guac sliding scale diabetic diet DIONI TRIANA Jun 24, 2016 17:39
--- NOTE | 2016-06-24 18:03 | History & Physical ---
History and Physical History & Physicial Dictated for Int Med-Dr Tee no. [id number]. KATHARINA POND Jun 24, 2016 18:03
[2016-06-24 20:00] VITALS: BP 93/44
[2016-06-24] MEDS ORDERED: Heparin 5000 units/ml inj SUBQ SCH (21:00)
--- NOTE | 2016-06-24 22:08 | History and Physical Report ---
DATE OF ADMISSION: 06/24/2016 CHIEF COMPLAINT: The patient is a 76-year-old white female, presents with chief complaint of fever and anemia. HISTORY OF PRESENT ILLNESS: The patient was admitted to [facility] from 06/08/2016 through 06/16/2016. Please see history and physical and discharge summary dictated at that time. The patient is a resident of [facility]. The patient was found to have fever greater than 101 degrees. The patient was also found to have decreased hemoglobin. The patient was admitted for fever and anemia. PAST MEDICAL HISTORY: Significant for 1. Type 2 diabetes. 2. Hypertension. 3. Obstructive sleep apnea. 4. Gastroesophageal reflux disease. 5. Hypercholesterolemia. 6. Cardiomyopathy. 7. Diabetic nephropathy. 8. Liver cirrhosis. 9. Fatty liver. PAST SURGICAL HISTORY: Significant for PEG placement with subsequent removal. MEDICATIONS: Current medications 1. Tylenol 650 mg one tablet p.o. q.6 h. 2. Aspirin 81 mg one tablet p.o. daily. 3. Atorvastatin 20 mg one tablet p.o. daily. 4. Benadryl 25 mg one tablet p.o. q.8 h. p.r.n. 5. Calcium carbonate 500 mg one tablet p.o. three times daily. 6. Plavix 75 mg one tablet p.o. daily. 7. Cranberry 450 mg p.o. three times daily. 8. Iron sulfate 325 mg one tablet p.o. daily. 9. Gabapentin 300 mg one tablet p.o. three times daily. 10. [place] 10/325 mg one tablet p.o. q.6 h. p.r.n. 11. Levemir 25 units subcutaneously at bedtime. 12. Lactulose 30 mL p.o. three times daily. 13. Lasix 20 mg one tablet p.o. daily. 14. Losartan 25 mg one tablet p.o. daily. 15. Magnesium chloride 64 mg p.o. daily. 16. Reglan 5 mg one tablet p.o. twice daily. 17. Metoprolol 25 mg one tablet p.o. twice daily. 18. Multivitamin one tablet p.o. daily. 19. Nateglinide 90 mg one tablet before meals. 20. NovoLog sliding scale. 21. Zantac 150 mg one tablet p.o. once daily. 22. Zoloft 25 mg one tablet p.o. daily. 23. Ambien 5 mg one tablet p.o. at bedtime. 24. Vitamin C 500 mg one tablet p.o. daily. ALLERGIES: Penicillin. SOCIAL HISTORY: The patient is . The patient resident of [facility]. The patient denies tobacco or alcohol use. REVIEW OF SYSTEMS: Constitutional: The patient denies weight loss or weight gain. The patient complains of fever as above. HEENT: The patient denies ear or throat pain. The patient denies headache. Cardiovascular: The patient denies palpitations or chest pain. Chest: The patient denies wheeze or shortness of breath. Abdomen: The patient denies nausea, vomiting, or constipation. Genitourinary: The patient denies dysuria or increased frequency of urination. Neuromuscular: The patient seizures or generalized weakness. PHYSICAL EXAMINATION: GENERAL: The patient is a well-developed and well-nourished white female, in no apparent distress. VITAL SIGNS: Temperature 101.3 degrees, respiratory rate 16, pulse 75, and blood pressure 170/60. HEENT: Eyes, pupils are equal and responsive to light and accommodation. Extraocular movements are intact. NECK: Supple without no lymphadenopathy. CHEST: Lungs are clear to auscultation bilaterally without wheezes or rales. CARDIOVASCULAR: Regular rate. S1 and S2 normal without murmurs, rubs, or gallops. ABDOMEN: Soft, nontender, and nondistended. Positive bowel sounds. No evidence of hepatosplenomegaly. Currently, no rebound or guarding. EXTREMITIES: Negative for clubbing, cyanosis, or edema. RECTAL: Refused. GENITAL: Refused. NEUROLOGIC: Cranial nerves II through XII are grossly intact without focal deficits. Motor strength is 5/5 bilaterally. Deep tendon reflexes are 2+ plantar. LABORATORY AND DIAGNOSTIC DATA: WBC 4.5, hemoglobin 8.5, hematocrit 27.5, and platelets 83,000. Sodium 136, potassium 4.4, chloride 100, CO2 23, BUN 24, creatinine 1.3 and glucose 54. Urinalysis showed 4+ occult blood, positive nitrite with 20 to 30 WBCs and leukocyte esterase positive. Chest x-ray revealed no acute process. ASSESSMENT: This is a test 76-year-old white female 1. Fever. 2. Urinary tract infection. 3. Anemia. 4. Diabetes type 2. 5. Hypertension. 6. Obstructive sleep apnea. 7. Gastroesophageal reflux disease. 8. Hypercholesterolemia. 9. Cardiomyopathy. 10. Diabetic nephropathy. 11. Liver cirrhosis. TREATMENT: 1. Urinary tract infection. The patient has been started empirically on cefepime. A urine culture is pending. Infectious Disease consultation with Dr. Stark. We will await results of urine culture. 2. Fever, this is probably secondary to urinary tract infection as above. 3. Anemia. Repeat hemoglobin and hematocrit is pending. 4. Diabetes type 2. Continue Levemir and NovoLog sliding scale as above. 5. Hypertension. Continue Cozaar as above. 6. Obstructive sleep apnea. 7. Hypercholesterolemia. Continue Zocor as above. 8. Cardiomyopathy. 9. Diabetic nephropathy. 10. Liver cirrhosis. Jed Guthrie M.D. DR: DEION JOB#: [id number] CC:
--- NOTE | 2016-06-24 22:46 | General Progress Note ---
Assessment/Plan Assessment/Plan GI CONSULT Assessment - Fever - DURANT with advanced Cirrhosis Subjective Allergies: Coded Allergies: PENICILLINS (Unverified Allergy, Unknown, 03/22/15) Objective Last 24 Hour Vital Signs Date Time Temp Pulse Resp B/P Pulse Ox O2 Delivery O2 Flow Rate FiO2 06/24/16 21:57 99.9 06/24/16 20:00 99.5 87 17 93/44 94 Room Air 06/24/16 19:44 102.0 06/24/16 19:43 102.0 06/24/16 18:00 100.2 06/24/16 16:37 98.2 06/24/16 16:00 98.2 71 17 102/57 95 Room Air 06/24/16 11:47 98.1 72 18 95/48 99 Room Air 06/24/16 10:45 101.3 82 18 110/73 98 Room Air 2.0 06/24/16 09:30 101.3 82 18 110/73 98 Room Air 06/24/16 08:16 101.3 75 16 170/60 97 Room Air 06/24/16 07:18 99.7 90 19 145/81 99 Room Air 06/24/16 07:09 99.7 77 20 127/65 100 Nasal Cannula 2.0 Laboratory Tests 06/24/16 07:21: White Blood Count 4.5L, Red Blood Count 2.91L, Hemoglobin 8.5L, Hematocrit 27.5L , Mean Corpuscular Volume 94, Mean Corpuscular Hemoglobin 29.3, Mean Corpuscular Hemoglobin Concent 31.0L, Red Cell Distribution Width 13.8, Platelet Count 83L, Mean Platelet Volume 7.7, Neutrophils (%) (Auto) , Lymphocytes (%) (Auto) , Monocytes (%) (Auto) , Eosinophils (%) (Auto) , Basophils (%) (Auto) , Differential Total Cells Counted 100, Neutrophils % ( Manual) 71, Lymphocytes % (Manual) 19L, Monocytes % (Manual) 10, Eosinophils % ( Manual) 0, Basophils % (Manual) 0, Band Neutrophils 0, Platelet Estimate DecreasedL, Platelet Morphology Normal, Hypochromasia 1+, Prothrombin Time 13.4H , Prothromb Time International Ratio 1.3H, Activated Partial Thromboplast Time 31, Urine Color Pale yellow, Urine Appearance Clear, Urine pH 6, Urine Specific [place] 1.010, Urine Protein 1+H, Urine Glucose (UA) Negative, Urine Ketones Negative, Urine Occult Blood 4+H, Urine Nitrite PositiveH, Urine Bilirubin Negative, Urine Urobilinogen Normal, Urine Leukocyte Esterase 3+H, Urine RBC 5- 10H, Urine WBC 20-30H, Urine Squamous Epithelial Cells Few, Urine Bacteria ModerateH, Urine Yeast OccasionalH, Sodium Level 136, Potassium Level 4.4, Chloride Level 100, Carbon Dioxide Level 23, Anion Gap 13, Blood Urea Nitrogen 24H, Creatinine 1.3H, Estimat Glomerular Filtration Rate , Glucose Level 54L, Calcium Level 9.8, Total Bilirubin 0.6, Aspartate Amino Transf (AST/SGOT) 112H, Alanine Aminotransferase (ALT/SGPT) 29, Alkaline Phosphatase 158H, Total Creatine Kinase 30, Creatine Kinase MB < 1.5, Creatine Kinase MB Relative Index , Troponin I < 0.30, Total Protein 6.6, Albumin 2.4L, Globulin 4.2, Albumin/ Globulin Ratio 0.5L 06/24/16 22:30: Urine Legionella Antigen [Pending] Height (Feet): 5 Weight (Pounds): 211 KIERSTEN DAVIES Jun 24, 2016 22:46
[2016-06-25] VITALS (8 sets, daily range): BP systolic 101–140; BP diastolic 46–71
[2016-06-25] MEDS: NovoLOG Insulin Flexpen SUBQ SCH ×4 (06:29→20:45)
[2016-06-25 07:35] LABS: MEAN CORPUSCULAR HGB CONC 32.2 G/DL (32.0-36.0); MEAN CORPUSCULAR VOLUME 93 FL (80-99); MEAN PLATELET VOLUME 6.9 FL (6.5-10.1); PLATELET COUNT 68 K/UL (150-450); RED BLOOD COUNT 2.61 M/UL (4.20-5.40); RED CELL DISTRIBUTION WIDTH 13.6 % (11.6-14.8); WHITE BLOOD COUNT 3.9 K/UL (4.8-10.8)
[2016-06-25 08:11] LABS: ALANINE AMINOTRANSFERASE 22 U/L (3-33); ALBUMIN/GLOBULIN RATIO 0.6 (1.0-2.7); ANION GAP 12 (5-15); ASPARTATE AMINO TRANSFERASE 91 U/L (5-40); CALCIUM 9.4 mg/dL (8.6-10.2); CARBON DIOXIDE 23 mEQ/L (20-30); CHLORIDE 102 mEQ/L (98-107); CREATININE 1.4 mg/dL (0.5-0.9); HEMOLYSIS 11; MAGNESIUM 1.4 mg/dL (1.7-2.5); PHOSPHORUS 2.3 mg/dL (2.5-4.8); POTASSIUM 4.4 mEQ/L (3.4-4.9); SODIUM 137 mEQ/L (135-145); TOTAL PROTEIN 6.1 g/dL (6.6-8.7)
[2016-06-25 09:32] LABS: EOSINOPHILS % (MANUAL) 1 % (0-3); LYMPHOCYTES % (MANUAL) 22 % (20-45); NEUTROPHILS % (MANUAL) 65 % (45-75); TOTAL CELLS COUNTED 100
[2016-06-25 09:35] LABS: BAND NEUTROPHILS % (MANUAL) 0 % (0-8); BASOPHILS % (MANUAL) 0 % (0-2); PLATELET ESTIMATE DECREASED; PLATELET MORPHOLOGY NORMAL
[2016-06-25 09:36] LABS: HYPOCHROMASIA 1+
[2016-06-25] MEDS ORDERED: Vancomycin 1250mg in D5W 275ml IVPB SCH (10:00)
--- NOTE | 2016-06-25 13:20 | Internal Med Progress Note ---
Subjective Date of Service: Jun 25, 2016 Physician Name Katharina Pond Attending Physician Rl Tee MD Current Medications Medications (Trade) Dose Ordered Sig/Pavel Route PRN Reason Start Time Stop Time Status Last Admin Dose Admin Acetaminophen (Tylenol) 650 mg Q4H PRN ORAL T>100.5 06/24/16 10:00 07/24/16 09:59 06/25/16 05:25 Al Hydroxide/Mg Hydroxide (Mylanta II) 30 ml Q6H PRN ORAL dyspepsia 06/24/16 10:00 07/24/16 09:59 Albuterol/ Ipratropium 3 ml 3 ml Q4H PRN HHN Shortness of Breath 06/24/16 10:00 06/29/16 09:59 Cefepime HCl/ Dextrose (Maxipime/D5W) 55 ml @ 110 mls/hr Q24H IV 06/24/16 12:00 07/01/16 11:59 06/24/16 12:51 Clopidogrel Bisulfate (Plavix) 75 mg DAILY ORAL 06/25/16 09:00 07/25/16 08:59 06/25/16 09:40 Dextrose (Dextrose 50%) STAT PRN IV Hypoglycemia 06/24/16 10:00 07/24/16 09:59 Insulin Aspart (NovoLOG) BEFORE MEALS AND HS SUBQ 06/24/16 12:00 07/24/16 11:59 Nitroglycerin (Ntg) 0.4 mg Q5M PRN SL Prn Chest Pain 06/24/16 10:00 07/24/16 09:59 Ondansetron HCl (Zofran) 4 mg Q6H PRN IVP Nausea & Vomiting 06/24/16 10:00 07/24/16 09:59 Polyethylene Glycol (Miralax) 17 gm DAILYPRN PRN ORAL Constipation 06/24/16 10:00 07/24/16 09:59 Temazepam (Restoril) 15 mg HSPRN PRN ORAL Insomnia 06/24/16 21:00 07/01/16 20:59 Vancomycin HCl 1 ea 1 ea DAILY PRN MISC Per rx protocol 06/24/16 20:15 07/24/16 20:14 Vancomycin HCl/ Dextrose (Vancomycin/D5W) 275 ml @ 183.708 mls/hr Q24H IVPB 06/25/16 10:00 06/30/16 09:59 06/25/16 09:40 Allergies: Coded Allergies: PENICILLINS (Unverified Allergy, Unknown, 03/22/15) ROS Limited/Unobtainable: No Constitutional: Reports: chills, fever HEENT: Reports: no symptoms Cardiovascular: Reports: no symptoms Respiratory: Reports: no symptoms Gastrointestinal/Abdominal: Reports: no symptoms Genitourinary: Reports: no symptoms Neurologic/Psychiatric: Reports: no symptoms Subjective 76 YO F admitted with fever, now UTI and sepsis. Cover for Int Med-Dr Tee. Low grade fever overnight. Objective Last Vital Signs Date Time Temp Pulse Resp B/P Pulse Ox O2 Delivery O2 Flow Rate FiO2 06/25/16 11:45 98.2 77 20 128/48 96 Room Air 06/24/16 10:45 2.0 General Appearance: WD/WN, alert, obese EENT: PERRL/EOMI, normal ENT inspection Neck: non-tender, normal alignment, supple Cardiovascular: normal peripheral pulses, normal rate, regular rhythm, no gallop/murmur, no JVD Respiratory/Chest: chest wall non-tender, lungs clear, normal breath sounds, no respiratory distress, no accessory muscle use Abdomen: normal bowel sounds, non tender, soft, no organomegaly, no mass Extremities: normal range of motion Neurologic: gullet slitter II-XII grossly normal Skin: normal pigmentation, warm/dry Laboratory Tests Test 06/24/16 22:30 06/25/16 04:55 Urine Legionella Antigen Pending White Blood Count 3.9 K/UL (4.8-10.8) L Red Blood Count 2.61 M/UL (4.20-5.40) L Hemoglobin 7.8 G/DL (12.0-16.0) L Hematocrit 24.3 % (37.0-47.0) L Mean Corpuscular Volume 93 FL (80-99) Mean Corpuscular Hemoglobin 30.0 PG (27.0-31.0) Mean Corpuscular Hemoglobin Concent 32.2 G/DL (32.0-36.0) Red Cell Distribution Width 13.6 % (11.6-14.8) Platelet Count 68 K/UL (150-450) L Mean Platelet Volume 6.9 FL (6.5-10.1) Neutrophils (%) (Auto) % (45.0-75.0) Lymphocytes (%) (Auto) % (20.0-45.0) Monocytes (%) (Auto) % (1.0-10.0) Eosinophils (%) (Auto) % (0.0-3.0) Basophils (%) (Auto) % (0.0-2.0) Differential Total Cells Counted 100 Neutrophils % (Manual) 65 % (45-75) Lymphocytes % (Manual) 22 % (20-45) Monocytes % (Manual) 12 % (1-10) H Eosinophils % (Manual) 1 % (0-3) Basophils % (Manual) 0 % (0-2) Band Neutrophils 0 % (0-8) Platelet Estimate Decreased L Platelet Morphology Normal Hypochromasia 1+ Sodium Level 137 mEQ/L (135-145) Potassium Level 4.4 mEQ/L (3.4-4.9) Chloride Level 102 mEQ/L (98-107) Carbon Dioxide Level 23 mEQ/L (20-30) Anion Gap 12 (5-15) Blood Urea Nitrogen 25 mg/dL (7-23) H Creatinine 1.4 mg/dL (0.5-0.9) H Estimat Glomerular Filtration Rate mL/min (>60) Glucose Level 70 mg/dL (74-106) L Calcium Level 9.4 mg/dL (8.6-10.2) Phosphorus Level 2.3 mg/dL (2.5-4.8) L Magnesium Level 1.4 mg/dL (1.7-2.5) L Total Bilirubin 0.5 mg/dL (0.0-1.2) Aspartate Amino Transf (AST/SGOT) 91 U/L (5-40) H Alanine Aminotransferase (ALT/SGPT) 22 U/L (3-33) Alkaline Phosphatase 134 U/L (35-104) H Total Protein 6.1 g/dL (6.6-8.7) L Albumin 2.4 g/dL (3.5-5.2) L Globulin 3.7 g/dL Albumin/Globulin Ratio 0.6 (1.0-2.7) L Microbiology Date/Time Source Procedure Growth Status 06/24/16 07:43 Blood Blood Culture - Preliminary Resulted 06/24/16 07:21 Blood Blood Culture - Preliminary Resulted 06/24/16 08:34 Nasal Nares MRSA Culture - Final Staphylococcus Aureus - Mrsa Complete 06/24/16 07:21 Urine,Clean Catch Urine Culture - Preliminary Gram Negative Bacillus 1 Resulted Intake and Output 06/24/16 06/25/16 19:00 07:00 Intake Total 450 ml Output Total 550 ml 550 ml Balance -100 ml -550 ml Intake Oral 300 ml IV Total 150 ml Output Urine Total 550 ml 550 ml Assessment/Plan Problem List: (1) Diabetic nephropathy Assessment & Plan: See nephrology note. (2) UTI (urinary tract infection) Assessment & Plan: Gram neg linda. Continue cefepime for now. See ID note. (3) Sepsis Assessment & Plan: Gram pos cocci. See ID note. Await blood culture ID and sensitivity. Cont vanco and cefepime for now. (4) Anemia (5) Fever (6) Diabetes mellitus Assessment & Plan: Continue novolog sliding scale. (7) Sleep apnea (8) Hypertension (9) GERD (gastroesophageal reflux disease) (10) Hypercholesteremia (11) Cardiomegaly (12) Cirrhosis (13) Elevated liver enzymes Assessment & Plan: See GI note. Await abdominal ultrasound. Status: not improved KATHARINA POND Jun 25, 2016 13:20
[2016-06-25] MEDS: Cefepime HCl 1 GM in D5W 55 ML IV SCH (13:50)
--- NOTE | 2016-06-25 15:52 | Cardiology Report ---
APPROVED REPORT EKG Measurement Heart [id number] Normal sinus rhythm Low voltage QRS Borderline ECG
--- NOTE | 2016-06-25 16:08 | Consultation ---
DATE OF CONSULTATION: 06/24/2016 NOTE: POOR AUDIO QUALITY GASTROLOGY CONSULTATION: CHIEF COMPLAINT: I was asked to see this patient for evaluation of fever. HISTORY OF PRESENT ILLNESS: The patient is a pleasant 76-year-old white woman with long-standing history of nonalcoholic steatohepatitis with multiple cirrhosis who was admitted to the hospital for fever. The patient was usually admitted for esophagogastroduodenoscopy with no upper gastrointestinal lesions were seen. The patient previously had a gastrostomy tube, which was placed, but then subsequently removed the since she was able to eat today. She has had multiple admissions to the hospital and she recovers and goes back to the snf. Her daughter looks after her. This patient is well right now. PAST MEDICAL HISTORY: History of diabetes, hypertension, obstructive sleep apnea, gastroesophageal reflux disease, hypercholesterolemia, cardiomyopathy, diabetic retinopathy, liver cirrhosis, fatty liver, debilitated and bedbound state, status gastrostomy tube placement and removal. FAMILY HISTORY: Noncontributory. SOCIAL HISTORY: The patient does not smoke or drink alcohol. The patient lives in a snf. Her daughter looks after her. ALLERGIES: No known drug allergies. MEDICATIONS: See chart list for details. REVIEW OF SYSTEMS: Otherwise negative. PHYSICAL EXAMINATION: GENERAL: The patient is a pleasant white woman, seen in her room. HEENT: Normocephalic and atraumatic. Sclerae anicteric. Oropharynx clear. NECK: Supple. CHEST: Reveals scattered rhonchi. CARDIOVASCULAR: Revealed regular rate and rhythm. ABDOMEN: Soft and obese. There is no significant tenderness. EXTREMITIES: Revealed some edema. NEUROLOGIC EXAM: Nonfocal. LABORATORY DATA: Noted. ASSESSMENT: This patient presents with fever from the snf with temperature of 101.0 degrees. She has multiple risks of chronic medical conditions and . The patient has potential cirrhosis and she can check for ascites. The episode at this time bacterial peritonitis. The patient recently had an alpha-fetoprotein level drawn just a month ago and does not need to be repeated. However, the repeat ultrasound would also serve to screen her for appendiceal carcinoma since she has cirrhosis. The patient has thrombocytopenia in the middle of the elevation in INR, which are consistent with history of liver disease. Broad spectrum antibiotics can be given for now until the workup is completed. The patient's prognosis is generally poor, but she has remained remarkably stable throughout the last two months with her poor and health. RECOMMENDATIONS: 1. Follow diet as tolerated. 2. Broad-spectrum antibiotics. 3. Check Clostridium difficile and stool. 4. Check abdominal ultrasound, and if there is ascites, we will consider paracentesis. Thank you for asking me to participate in the care of this patient. Yokasta Torres M.D. DR: KRISTYN JOB#: [id number] CC:
--- NOTE | 2016-06-25 16:34 | Pulmonology Progress Note ---
Assessment/Plan Problems: (1) Sepsis (2) Anemia (3) COPD (chronic obstructive pulmonary disease) with emphysema (4) Sleep apnea (5) Cirrhosis (6) Obesity (7) DM (diabetes mellitus) Assessment/Plan line has been removed prbc one unit today GI and ID consult appreciated continue antibiotics check cultures tolerating diet sliding scle Subjective ROS Limited/Unobtainable: No Allergies: Coded Allergies: PENICILLINS (Unverified Allergy, Unknown, 03/22/15) Objective Last 24 Hour Vital Signs Date Time Temp Pulse Resp B/P Pulse Ox O2 Delivery O2 Flow Rate FiO2 06/25/16 11:45 98.2 77 20 128/48 96 Room Air 06/25/16 08:00 98.8 89 20 101/46 96 Room Air 06/25/16 06:28 99.9 06/25/16 04:00 100.9 108 20 125/49 94 Room Air 06/25/16 00:00 98.6 83 20 113/52 93 Room Air 06/24/16 21:57 99.9 06/24/16 20:00 99.5 87 17 93/44 94 Room Air 06/24/16 19:43 102.0 06/24/16 18:00 100.2 06/24/16 16:37 98.2 Intake and Output 06/24/16 06/25/16 19:00 07:00 Intake Total 450 ml Output Total 550 ml 550 ml Balance -100 ml -550 ml Intake Oral 300 ml IV Total 150 ml Output Urine Total 550 ml 550 ml Objective HEENT: normocephalic Respiratory/Chest: chest wall non-tender, lungs clear Cardiovascular: normal peripheral pulses, normal rate Abdomen: normal bowel sounds, soft, non tender Extremities: no cyanosis, no clubbing Skin: no ulcers Neurologic/Psychiatric: medical scheduler II-XII grossly normal Musculoskeletal: normal muscle bulk, Microbiology Date/Time Source Procedure Growth Status 06/24/16 07:43 Blood Blood Culture - Preliminary Resulted 06/24/16 07:21 Blood Blood Culture - Preliminary Resulted 06/24/16 08:34 Nasal Nares MRSA Culture - Final Staphylococcus Aureus - Mrsa Complete 06/24/16 07:21 Urine,Clean Catch Urine Culture - Preliminary Gram Negative Bacillus 1 Resulted Laboratory Tests 06/24/16 22:30: Urine Legionella Antigen [Pending] 06/25/16 04:55: White Blood Count 3.9L, Red Blood Count 2.61L, Hemoglobin 7.8L, Hematocrit 24.3L , Mean Corpuscular Volume 93, Mean Corpuscular Hemoglobin 30.0, Mean Corpuscular Hemoglobin Concent 32.2, Red Cell Distribution Width 13.6, Platelet Count 68L, Mean Platelet Volume 6.9, Neutrophils (%) (Auto) , Lymphocytes (%) ( Auto) , Monocytes (%) (Auto) , Eosinophils (%) (Auto) , Basophils (%) (Auto) , Differential Total Cells Counted 100, Neutrophils % (Manual) 65, Lymphocytes % ( Manual) 22, Monocytes % (Manual) 12H, Eosinophils % (Manual) 1, Basophils % ( Manual) 0, Band Neutrophils 0, Platelet Estimate DecreasedL, Platelet Morphology Normal, Hypochromasia 1+, Sodium Level 137, Potassium Level 4.4, Chloride Level 102, Carbon Dioxide Level 23, Anion Gap 12, Blood Urea Nitrogen 25H, Creatinine 1.4H, Estimat Glomerular Filtration Rate , Glucose Level 70L, Calcium Level 9.4, Phosphorus Level 2.3L, Magnesium Level 1.4L, Total Bilirubin 0.5, Aspartate Amino Transf (AST/SGOT) 91H, Alanine Aminotransferase (ALT/SGPT) 22, Alkaline Phosphatase 134H, Total Protein 6.1L, Albumin 2.4L, Globulin 3.7, Albumin/Globulin Ratio 0.6L Current Medications Medications (Trade) Dose Ordered Sig/Pavel Route PRN Reason Start Time Stop Time Status Last Admin Dose Admin Acetaminophen (Tylenol) 650 mg Q4H PRN ORAL T>100.5 06/24/16 10:00 07/24/16 09:59 06/25/16 05:25 Al Hydroxide/Mg Hydroxide (Mylanta II) 30 ml Q6H PRN ORAL dyspepsia 06/24/16 10:00 07/24/16 09:59 Albuterol/ Ipratropium 3 ml 3 ml Q4H PRN HHN Shortness of Breath 06/24/16 10:00 06/29/16 09:59 Cefepime HCl/ Dextrose (Maxipime/D5W) 55 ml @ 110 mls/hr Q24H IV 06/24/16 12:00 07/01/16 11:59 06/25/16 13:50 Clopidogrel Bisulfate (Plavix) 75 mg DAILY ORAL 3/8/17 09:00 07/25/16 08:59 06/25/16 09:40 Dextrose (Dextrose 50%) STAT PRN IV Hypoglycemia 06/24/16 10:00 07/24/16 09:59 Insulin Aspart (NovoLOG) BEFORE MEALS AND HS SUBQ 06/24/16 12:00 07/24/16 11:59 Nitroglycerin (Ntg) 0.4 mg Q5M PRN SL Prn Chest Pain 06/24/16 10:00 07/24/16 09:59 Ondansetron HCl (Zofran) 4 mg Q6H PRN IVP Nausea & Vomiting 06/24/16 10:00 07/24/16 09:59 Polyethylene Glycol (Miralax) 17 gm DAILYPRN PRN ORAL Constipation 06/24/16 10:00 07/24/16 09:59 Temazepam (Restoril) 15 mg HSPRN PRN ORAL Insomnia 06/24/16 21:00 07/01/16 20:59 Vancomycin HCl 1 ea 1 ea DAILY PRN MISC Per rx protocol 06/24/16 20:15 07/24/16 20:14 Vancomycin HCl/ Dextrose (Vancomycin/D5W) 275 ml @ 183.708 mls/hr Q24H IVPB 06/25/16 10:00 06/30/16 09:59 06/25/16 09:40 DIONI TRIANA Jun 25, 2016 16:34
--- NOTE | 2016-06-25 16:46 | Consultation ---
Consult Note Assessment/Plan ID Dic # [id number] ASSESSMENT: 76 y/o female with: // Fever // probable PICC infection // GPC bacteremia : hx of recent CoNS Bacteremia x 2 // Hx of recurrent complicated ESBL(+) E.coli + K.pneumoniae UTI - - CT A/P 09/2015: 9 x 4 mm left proximal ureteral stone with mild left hydronephrosis. Tiny nonobstructive stone in the mid pole the left kidney. Bladder wall thickening, suspected cystitis - h/o ESBL(+) E.coli, P.mirabilis, K.oxytoca, C.albicans // Multiple superficial decubiti POA, not grossly infected // Afebrile without leukocytosis // CKD3 // Hypercalcemia // DM2 // Obesity // MRSA, VRE colonized // PCN allergy - tolerates carbapenems // Full Code PLAN: - cont pt on Cefepime and Vanco d# 1 ( 06/11 SP IV vancomycin, meropenem d# 3 ) - f/u cultures - monitor CBC, temperatures - monitor BMP LYLA ROJAS M.D. Jun 25, 2016 16:46
--- NOTE | 2016-06-25 21:58 | General Progress Note ---
Assessment/Plan Assessment/Plan Assessment - DURANT - Cirrhosis - Anemia - debilitation Recommendations - push po - elevate HOB - Transfuse PRN - PPI Subjective Allergies: Coded Allergies: PENICILLINS (Unverified Allergy, Unknown, 03/22/15) Subjective feels better no abd pain appetite improved d/w staff genetic counselor (+) BM Objective Last 24 Hour Vital Signs Date Time Temp Pulse Resp B/P Pulse Ox O2 Delivery O2 Flow Rate FiO2 06/25/16 16:00 98.2 78 18 131/49 96 Room Air 06/25/16 11:45 98.2 77 20 128/48 96 Room Air 06/25/16 08:00 98.8 89 20 101/46 96 Room Air 06/25/16 06:28 99.9 06/25/16 04:00 100.9 108 20 125/49 94 Room Air 06/25/16 00:00 98.6 83 20 113/52 93 Room Air 06/24/16 21:57 99.9 Intake and Output 06/24/16 06/25/16 19:00 07:00 Intake Total 450 ml Output Total 550 ml 550 ml Balance -100 ml -550 ml Intake Oral 300 ml IV Total 150 ml Output Urine Total 550 ml 550 ml Laboratory Tests 06/24/16 22:30: Urine Legionella Antigen [Pending] 06/25/16 04:55: White Blood Count 3.9L, Red Blood Count 2.61L, Hemoglobin 7.8L, Hematocrit 24.3L , Mean Corpuscular Volume 93, Mean Corpuscular Hemoglobin 30.0, Mean Corpuscular Hemoglobin Concent 32.2, Red Cell Distribution Width 13.6, Platelet Count 68L, Mean Platelet Volume 6.9, Neutrophils (%) (Auto) , Lymphocytes (%) ( Auto) , Monocytes (%) (Auto) , Eosinophils (%) (Auto) , Basophils (%) (Auto) , Differential Total Cells Counted 100, Neutrophils % (Manual) 65, Lymphocytes % ( Manual) 22, Monocytes % (Manual) 12H, Eosinophils % (Manual) 1, Basophils % ( Manual) 0, Band Neutrophils 0, Platelet Estimate DecreasedL, Platelet Morphology Normal, Hypochromasia 1+, Sodium Level 137, Potassium Level 4.4, Chloride Level 102, Carbon Dioxide Level 23, Anion Gap 12, Blood Urea Nitrogen 25H, Creatinine 1.4H, Estimat Glomerular Filtration Rate , Glucose Level 70L, Calcium Level 9.4, Phosphorus Level 2.3L, Magnesium Level 1.4L, Total Bilirubin 0.5, Aspartate Amino Transf (AST/SGOT) 91H, Alanine Aminotransferase (ALT/SGPT) 22, Alkaline Phosphatase 134H, Total Protein 6.1L, Albumin 2.4L, Globulin 3.7, Albumin/Globulin Ratio 0.6L Height (Feet): 5 Weight (Pounds): 211 Objective WDWN NCAT supple CTA RRR soft ND NT no edema KIERSTEN DAVIES Jun 25, 2016 21:58
[2016-06-26] VITALS: BP 118/54
[2016-06-26 04:00] VITALS: BP_SYST 131; BP_SYST 149; BP_DIAS 69
[2016-06-26] MEDS: NovoLOG Insulin Flexpen SUBQ SCH ×4 (06:06→21:00)
[2016-06-26 07:04] LABS: MEAN CORPUSCULAR HEMOGLOBIN 29.9 PG (27.0-31.0); MEAN CORPUSCULAR HGB CONC 32.3 G/DL (32.0-36.0); MEAN CORPUSCULAR VOLUME 93 FL (80-99); PLATELET COUNT 74 K/UL (150-450); RED CELL DISTRIBUTION WIDTH 14.5 % (11.6-14.8)
[2016-06-26 07:06] LABS: ANION GAP 15 (5-15); CALCIUM 9.2 mg/dL (8.6-10.2); CARBON DIOXIDE 20 mEQ/L (20-30); CHLORIDE 103 mEQ/L (98-107); CREATININE 1.1 mg/dL (0.5-0.9); HEMOLYSIS 26; POTASSIUM 4.3 mEQ/L (3.4-4.9); SODIUM 138 mEQ/L (135-145)
[2016-06-26 08:03] VITALS: BP 140/52
--- NOTE | 2016-06-26 09:50 | General Progress Note ---
Assessment/Plan Assessment/Plan Assessment - DURANT - Cirrhosis - Anemia - debilitation Recommendations - push po - elevate HOB - Transfuse PRN - PPI Subjective Allergies: Coded Allergies: PENICILLINS (Unverified Allergy, Unknown, 03/22/15) Subjective feels better no abd pain appetite OK (+) BM Objective Last 24 Hour Vital Signs Date Time Temp Pulse Resp B/P Pulse Ox O2 Delivery O2 Flow Rate FiO2 06/26/16 08:03 98.4 99 16 140/52 94 Room Air 06/26/16 04:00 98.1 76 20 149/69 95 Room Air 06/26/16 00:00 98.4 73 20 118/54 96 Room Air 06/25/16 21:30 98.8 80 16 138/71 95 Room Air 06/25/16 19:15 98.4 74 16 139/60 95 Room Air 06/25/16 19:00 98.4 16 140/61 95 Room Air 06/25/16 16:00 98.2 78 18 131/49 96 Room Air 06/25/16 11:45 98.2 77 20 128/48 96 Room Air Intake and Output 06/25/16 06/26/16 19:00 07:00 Intake Total 120 ml 610 ml Output Total 350 ml 1100 ml Balance -230 ml -490 ml Intake Oral 120 ml 610 ml Output Urine Total 350 ml 1100 ml # Bowel Movements 1 Laboratory Tests 06/26/16 04:50: White Blood Count 3.0L, Red Blood Count 3.00L, Hemoglobin 9.0L, Hematocrit 27.7L , Mean Corpuscular Volume 93, Mean Corpuscular Hemoglobin 29.9, Mean Corpuscular Hemoglobin Concent 32.3, Red Cell Distribution Width 14.5, Platelet Count 74L, Mean Platelet Volume 7.0, Neutrophils (%) (Auto) , Lymphocytes (%) ( Auto) , Monocytes (%) (Auto) , Eosinophils (%) (Auto) , Basophils (%) (Auto) , Neutrophils % (Manual) [Pending], Lymphocytes % (Manual) [Pending], Platelet Estimate [Pending], Platelet Morphology [Pending], Sodium Level 138, Potassium Level 4.3, Chloride Level 103, Carbon Dioxide Level 20, Anion Gap 15, Blood Urea Nitrogen 21, Creatinine 1.1H, Estimat Glomerular Filtration Rate , Glucose Level 78, Calcium Level 9.2 06/26/16 08:47: Vancomycin Level Trough [Pending] Height (Feet): 5 Weight (Pounds): 211 Objective WDWN NCAT supple CTA RRR soft ND NT no edema KIERSTEN DAVIES Jun 26, 2016 09:50
[2016-06-26 10:19] LABS: ANISOCYTOSIS 1+; BAND NEUTROPHILS % (MANUAL) 1 % (0-8); BASOPHILS % (MANUAL) 0 % (0-2); EOSINOPHILS % (MANUAL) 3 % (0-3); LYMPHOCYTES % (MANUAL) 55 % (20-45); NEUTROPHILS % (MANUAL) 34 % (45-75); PLATELET ESTIMATE DECREASED; PLATELET MORPHOLOGY NORMAL; TOTAL CELLS COUNTED 100
--- NOTE | 2016-06-26 10:58 | Diagnostic Imaging Report ---
Indication:Abnormal liver function tests Technique: Grayscale and duplex Doppler imaging of the abdomen performed. Comparison: None Findings: The liver is nodular and heterogeneous. Splenomegaly is present measuring 16 cm. There are versus varices in the splenic hilum and upper abdomen. No obvious biliary ductal dilatation is identified. Demonstrated part of the pancreas is unremarkable. Gallbladder is not well seen. CBD measures 8-9 mm. There is no obvious ascites. Kidneys are grossly unremarkable. Impression: Liver cirrhosis with splenomegaly and portosystemic varices indicative of portal hypertension
[2016-06-26 11:04] VITALS: BP 139/61
--- NOTE | 2016-06-26 12:32 | Consultation ---
History of Present Illness General Chief Complaint: Abnormal Labs Referring physician: Dr. 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 The pt is under my care at [facility]. The pt pw tearfulmess, depressed mood, anhedonia and anxiety. she takes zoloft which was discontinued. the pt c/o a staff who has been "ignoring" her and not helping her to reposition. Allergies: Coded Allergies: PENICILLINS (Unverified Allergy, Unknown, 03/22/15) Medication History Scheduled Ascorbic Acid* (Vitamin C*), Unknown Dose ORAL DAILY, (Reported) Aspirin* (Aspir 81*), 81 MG ORAL DAILY, (Reported) Atorvastatin Calcium* (Atorvastatin Calcium*), 20 MG ORAL BEDTIME, (Reported) Clopidogrel Bisulfate* (Plavix*), 75 MG ORAL DAILY, (Reported) Cranberry Fruit Concentrate (Cranberry), 450 MG PO DAILY, (Reported) Docusate Sodium* (Docusate Sodium*), 100 MG ORAL BID, (Reported) Ertapenem Sodium* (INVanz*), 1 GM IVPB Q24H, (Reported) Ertapenem Sodium* (INVanz*), 1 GM IVPB Q24H, (Reported) Ferrous Gluconate (Ferrous Gluconate), 324 MG PO DAILY, (Reported) Ferrous Sulfate (Ferrous Sulfate), 325 MG PO DAILY, (Reported) Furosemide* (Lasix*), 20 MG PO DAILY, (Reported) Gabapentin* (Gabapentin*), 300 MG ORAL THREE TIMES A DAY, (Reported) Insulin Aspart (Novolog), BEFORE MEALS AND HS, (Reported) Insulin Detemir (Levemir), 0 SUBQ BEDTIME, (Reported) Insulin Glargine (Lantus), 55 UNIT SUBQ BID, (Reported) Lactulose (Lactulose*), 30 ML ORAL THREE TIMES A DAY, (Reported) Losartan Potassium* (Losartan Potassium*), 12.5 MG ORAL DAILY, (Reported) Magnesium Chloride (Slow-Mag), 1 TAB PO DAILY, (Reported) Metoclopramide Hcl* (Reglan*), 5 MG ORAL BID, (Reported) Metoprolol Tartrate* (Metoprolol Tartrate*), 12.5 MG ORAL EVERY 12 HOURS, ( Reported) Nateglinide* (Starlix*), 60 MG ORAL THREE TIMES A DAY, (Reported) Nateglinide* (Starlix*), 90 MG ORAL BEFORE MEALS, (Reported) Nitrofurantoin Monohyd/M-Cryst* (Macrobid 100 Mg*), 100 MG ORAL EVERY 12 HOURS Nitrofurantoin Monohyd/M-Cryst* (Macrobid 100 Mg*), 100 MG ORAL BID Ranitidine Hcl* (Zantac*), 150 MG ORAL DAILY, (Reported) Sertraline Hcl* (Sertraline Hcl*), 50 MG ORAL DAILY, (Reported) Sertraline Hcl* (Sertraline Hcl*), 25 MG ORAL DAILY, (Reported) [mulitvital-m], 1 TAB PO DAILY, (Reported) Scheduled PRN Acetaminophen (Acetaminophen), 650 MG ORAL Q6H PRN for Prn Headache/Temp > 101, (Reported) Diphenhydramine Hcl* (Benadryl*), 25 MG ORAL EVERY 8 HOURS PRN for Itching, ( Reported) Hydrocodone/Acetaminophen (Hydrocodon-Acetaminophn 10-325), 1 TAB ORAL Q6H PRN for For Pain, (Reported) Insulin Lispro (Humalog Kwikpen), UNIT SQ AC+HS PRN for Hyperglycemia, (Reported ) Ondansetron* (Zofran*), 4 MG IV Q6H PRN for Nausea & Vomiting, (Reported) Simethicone* (Simethicone*), 160 MG ORAL Q8H PRN for Abdominal cramps, (Reported ) Zolpidem Tartrate* (Ambien*), 5 MG ORAL BEDTIME PRN for Insomnia, (Reported) Miscellaneous Medications Calcium Carbonate/Mag Carb/Fa (Magnebind 400 Rx Tablet), 1 EACH PO, (Reported) Patient History History Provided By: Patient, Medical Record, PMD Healthcare decision maker pt oriented Resuscitation status Full Code Advanced Directive on File Past Medical/Surgical History Past Medical/Surgical History: (1) Renal failure (2) Fall (3) Cellulitis (4) Acidosis, metabolic (5) Abdominal wall cellulitis (6) Elevated liver function tests (7) Generalized weakness (8) G-tube site cellulitis (9) Hypokalemia (10) Hyperbilirubinemia (11) Pancreatitis (12) Tachycardia (13) Cholecystitis (14) Hyponatremia (15) Ascites (16) Elevated CEA (17) ARF (acute renal failure) (18) Acute respiratory failure (19) Respiratory distress (20) Hypercalcemia (21) Hypernatremia (22) MRSA pneumonia (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 (24) Hypomagnesemia (25) Hyperkalemia (26) ESBL (extended spectrum beta-lactamase) producing bacteria infection (27) Dysphagia (28) Encephalopathy acute (29) Altered level of consciousness (30) Dehydration (31) Severe sepsis (32) RAMYA (acute kidney injury) (33) Uncontrolled diabetes mellitus (34) Altered mental status (35) Peripheral autonomic neuropathy due to diabetes mellitus (36) GI bleed (37) Gastrointestinal hemorrhage (38) Infection due to ESBL-producing Escherichia coli (39) Urinary tract infection due to ESBL Klebsiella (40) UTI (urinary tract infection) (41) Diabetes mellitus (42) Anemia (43) Cirrhosis (44) CHF (congestive heart failure) (45) Hypertension (46) Obesity (47) Sleep apnea, obstructive (48) Sepsis (49) Sleep apnea (50) DM (diabetes mellitus) (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 (52) Cardiomegaly (53) Fever (54) Hypercholesteremia (55) GERD (gastroesophageal reflux disease) (56) Diabetic nephropathy (57) Elevated liver enzymes Review of Systems Constitutional: Reports: malaise, weakness Psychiatric: Reports: depressed feelings, emotional problems Physical Exam General Appearance: alert, moderate distress, overweight Neurologic: alert, oriented x 3, responsive, depressed affect Last 24 Hour Vital Signs Date Time Temp Pulse Resp B/P Pulse Ox O2 Delivery O2 Flow Rate FiO2 06/26/16 11:04 97.9 81 16 139/61 94 Room Air 06/26/16 08:03 98.4 99 16 140/52 94 Room Air 06/26/16 04:00 98.1 76 20 149/69 95 Room Air 06/26/16 00:00 98.4 73 20 118/54 96 Room Air 06/25/16 21:30 98.8 80 16 138/71 95 Room Air 06/25/16 19:15 98.4 74 16 139/60 95 Room Air 06/25/16 19:00 98.4 16 140/61 95 Room Air 06/25/16 16:00 98.2 78 18 131/49 96 Room Air Intake and Output 06/25/16 06/26/16 19:00 07:00 Intake Total 120 ml 610 ml Output Total 350 ml 1100 ml Balance -230 ml -490 ml Intake Oral 120 ml 610 ml Output Urine Total 350 ml 1100 ml # Bowel Movements 1 Laboratory Tests Test 06/26/16 04:50 06/26/16 08:47 White Blood Count 3.0 K/UL (4.8-10.8) L Red Blood Count 3.00 M/UL (4.20-5.40) L Hemoglobin 9.0 G/DL (12.0-16.0) L Hematocrit 27.7 % (37.0-47.0) L Mean Corpuscular Volume 93 FL (80-99) Mean Corpuscular Hemoglobin 29.9 PG (27.0-31.0) Mean Corpuscular Hemoglobin Concent 32.3 G/DL (32.0-36.0) Red Cell Distribution Width 14.5 % (11.6-14.8) Platelet Count 74 K/UL (150-450) L Mean Platelet Volume 7.0 FL (6.5-10.1) Neutrophils (%) (Auto) % (45.0-75.0) Lymphocytes (%) (Auto) % (20.0-45.0) Monocytes (%) (Auto) % (1.0-10.0) Eosinophils (%) (Auto) % (0.0-3.0) Basophils (%) (Auto) % (0.0-2.0) Differential Total Cells Counted 100 Neutrophils % (Manual) 34 % (45-75) L Lymphocytes % (Manual) 55 % (20-45) H Monocytes % (Manual) 7 % (1-10) Eosinophils % (Manual) 3 % (0-3) Basophils % (Manual) 0 % (0-2) Band Neutrophils 1 % (0-8) Platelet Estimate Decreased L Platelet Morphology Normal Anisocytosis 1+ Sodium Level 138 mEQ/L (135-145) Potassium Level 4.3 mEQ/L (3.4-4.9) Chloride Level 103 mEQ/L (98-107) Carbon Dioxide Level 20 mEQ/L (20-30) Anion Gap 15 (5-15) Blood Urea Nitrogen 21 mg/dL (7-23) Creatinine 1.1 mg/dL (0.5-0.9) H Estimat Glomerular Filtration Rate mL/min (>60) Glucose Level 78 mg/dL (74-106) Calcium Level 9.2 mg/dL (8.6-10.2) Vancomycin Level Trough 19.7 ug/mL (5.0-12.0) H Height (Feet): 5 Weight (Pounds): 211 Medications Current Medications Medications (Trade) Dose Ordered Sig/Pavel Route PRN Reason Start Time Stop Time Status Last Admin Dose Admin Acetaminophen (Tylenol) 650 mg Q4H PRN ORAL T>100.5 06/24/16 10:00 07/24/16 09:59 06/25/16 21:17 Al Hydroxide/Mg Hydroxide (Mylanta II) 30 ml Q6H PRN ORAL dyspepsia 06/24/16 10:00 07/24/16 09:59 Albuterol/ Ipratropium 3 ml 3 ml Q4H PRN HHN Shortness of Breath 06/24/16 10:00 06/29/16 09:59 Cefepime HCl/ Dextrose (Maxipime/D5W) 55 ml @ 110 mls/hr Q24H IV 06/24/16 12:00 07/01/16 11:59 06/25/16 13:50 Clopidogrel Bisulfate (Plavix) 75 mg DAILY ORAL 06/25/16 09:00 07/25/16 08:59 06/26/16 08:16 Dextrose (Dextrose 50%) STAT PRN IV Hypoglycemia 06/24/16 10:00 07/24/16 09:59 Insulin Aspart (NovoLOG) BEFORE MEALS AND HS SUBQ 06/24/16 12:00 07/24/16 11:59 06/26/16 11:54 Nitroglycerin (Ntg) 0.4 mg Q5M PRN SL Prn Chest Pain 06/24/16 10:00 07/24/16 09:59 Ondansetron HCl (Zofran) 4 mg Q6H PRN IVP Nausea & Vomiting 06/24/16 10:00 07/24/16 09:59 Polyethylene Glycol (Miralax) 17 gm DAILYPRN PRN ORAL Constipation 06/24/16 10:00 07/24/16 09:59 Temazepam (Restoril) 15 mg HSPRN PRN ORAL Insomnia 06/24/16 21:00 07/01/16 20:59 Vancomycin HCl 1 ea 1 ea DAILY PRN MISC Per rx protocol 06/24/16 20:15 07/24/16 20:14 Vancomycin HCl/ Dextrose (Vancomycin/D5W) 275 ml @ 183.708 mls/hr Q24H IVPB 06/26/16 13:00 07/01/16 12:59 Assessment/Plan Status: not improved Assessment/Plan MDD -zoloft 75mg qam -d/w staff Oj Medel M.D. Jun 26, 2016 12:32
[2016-06-26] MEDS: Cefepime HCl 1 GM in D5W 55 ML IV SCH (13:42)
[2016-06-26] MEDS: Vancomycin 1gm/D5W 275ml IVPB SCH ×2 (14:20)
--- NOTE | 2016-06-26 14:27 | Wound Care Consultation ---
Wound Assessment Wound Assessment #1: Wound Present on Admission: Yes New Wound: No Status Change of Wound: No Wound Location Body Site Modif: mid Wound Location Body Site: coccyx Wound Type: pressure ulcer Callie Test: Does not Callie Pressure Ulcer Stage: III Wound Thickness: Full Thickness Wound Length: 0.5 Wound Width: 0.3 Wound Depth: 0.3 Percent of Wound [place]/Red: 95 Percent of Wound Bed Yellow/Wh: 5 Wound Drainage Description: Serosanguineous Wound Drainage Amount: Scant Wound Drainage Odor: None/Absent Tissue Surrounding Wound: Erythemic Wound General Appearance: Reddened Wound Assessment #2: Wound Number: #2 Wound Present on Admission: Yes New Wound: No Status Change of Wound: No Wound Location Body Site Modif: mid Wound Location Body Site: sacral Wound Type: pressure ulcer Callie Test: Does not Callie Pressure Ulcer Stage: deep tissue injury Wound Thickness: Full Thickness Wound Length: 4.0 Wound Width: 6.5 Wound Depth: utd Percent of Wound Purple/Maroon: 100 Wound Drainage Amount: None Wound Drainage Odor: None/Absent Tissue Surrounding Wound: Erythemic Wound General Appearance: Reddened Wound Comment #1 Coccyx stage III pressure ulcer #2 Sacral DTI pressure ulcer Recommendation -Coccyx stage III and sacral DTI pressure ulcers Cleanse with saline, pat dry, apply Triad cream, cover with bordered gauze daily and PRN soiled/dislodged -Keep clean and dry -Turn and reposition -Low air loss overlay mattress -Offload both heels -Optimize nutrition -Assess and f/u accordingly for any changes FAIZAN CRUZ RN Jun 26, 2016 14:27
[2016-06-26 16:00] VITALS: BP 156/72
--- NOTE | 2016-06-26 16:39 | Pulmonology Progress Note ---
Assessment/Plan Problems: (1) Sepsis (2) Anemia (3) COPD (chronic obstructive pulmonary disease) with emphysema (4) Sleep apnea (5) Cirrhosis (6) Obesity (7) DM (diabetes mellitus) Assessment/Plan no new complains line has been removed prbc one unit today GI and ID consult appreciated continue antibiotics check cultures tolerating diet sliding scle all notes, meds labs reviewed Subjective ROS Limited/Unobtainable: No Allergies: Coded Allergies: PENICILLINS (Unverified Allergy, Unknown, 03/22/15) Objective Last 24 Hour Vital Signs Date Time Temp Pulse Resp B/P Pulse Ox O2 Delivery O2 Flow Rate FiO2 06/26/16 16:00 97.7 77 20 156/72 94 Room Air 06/26/16 11:04 97.9 81 16 139/61 94 Room Air 06/26/16 08:03 98.4 99 16 140/52 94 Room Air 06/26/16 04:00 98.1 76 20 149/69 95 Room Air 06/26/16 00:00 98.4 73 20 118/54 96 Room Air 06/25/16 21:30 98.8 80 16 138/71 95 Room Air 06/25/16 19:15 98.4 74 16 139/60 95 Room Air 06/25/16 19:00 98.4 16 140/61 95 Room Air Intake and Output 06/25/16 06/26/16 19:00 07:00 Intake Total 120 ml 610 ml Output Total 350 ml 1100 ml Balance -230 ml -490 ml Intake Oral 120 ml 610 ml Output Urine Total 350 ml 1100 ml # Bowel Movements 1 Objective HEENT: normocephalic Respiratory/Chest: chest wall non-tender, lungs clear Cardiovascular: normal peripheral pulses, normal rate Abdomen: normal bowel sounds, soft, non tender Extremities: no cyanosis, no clubbing Skin: no ulcers 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 Musculoskeletal: normal muscle bulk, Microbiology Date/Time Source Procedure Growth Status 06/24/16 21:00 Blood Blood Culture - Preliminary NO GROWTH AFTER 24 HOURS Resulted 06/24/16 20:50 Blood Blood Culture - Preliminary NO GROWTH AFTER 24 HOURS Resulted 06/24/16 07:43 Blood Blood Culture - Preliminary Staphylococcus Sp Coag Neg Resulted 06/24/16 07:21 Blood Blood Culture - Preliminary Staphylococcus Sp Coag Neg Resulted 06/24/16 08:34 Nasal Nares MRSA Culture - Final Staphylococcus Aureus - Mrsa Complete 06/24/16 07:21 Urine,Clean Catch Urine Culture - Preliminary Escherichia Coli - Esbl Resulted 06/24/16 08:34 Rectum VRE Culture - Final Enterococcus Faecalis - Vre Enterococcus Faecium - Vre Complete Laboratory Tests 06/26/16 04:50: White Blood Count 3.0L, Red Blood Count 3.00L, Hemoglobin 9.0L, Hematocrit 27.7L , Mean Corpuscular Volume 93, Mean Corpuscular Hemoglobin 29.9, Mean Corpuscular Hemoglobin Concent 32.3, Red Cell Distribution Width 14.5, Platelet Count 74L, Mean Platelet Volume 7.0, Neutrophils (%) (Auto) , Lymphocytes (%) ( Auto) , Monocytes (%) (Auto) , Eosinophils (%) (Auto) , Basophils (%) (Auto) , Differential Total Cells Counted 100, Neutrophils % (Manual) 34L, Lymphocytes % (Manual) 55H, Monocytes % (Manual) 7, Eosinophils % (Manual) 3, Basophils % ( Manual) 0, Band Neutrophils 1, Platelet Estimate DecreasedL, Platelet Morphology Normal, Anisocytosis 1+, Sodium Level 138, Potassium Level 4.3, Chloride Level 103, Carbon Dioxide Level 20, Anion Gap 15, Blood Urea Nitrogen 21, Creatinine 1.1H, Estimat Glomerular Filtration Rate , Glucose Level 78, Calcium Level 9.2 06/26/16 08:47: Vancomycin Level Trough 19.7H Current Medications Medications (Trade) Dose Ordered Sig/Pavel Route PRN Reason Start Time Stop Time Status Last Admin Dose Admin Acetaminophen (Tylenol) 650 mg Q4H PRN ORAL T>100.5 06/24/16 10:00 07/24/16 09:59 06/25/16 21:17 Al Hydroxide/Mg Hydroxide (Mylanta II) 30 ml Q6H PRN ORAL dyspepsia 06/24/16 10:00 07/24/16 09:59 Albuterol/ Ipratropium 3 ml 3 ml Q4H PRN HHN Shortness of Breath 06/24/16 10:00 06/29/16 09:59 Cefepime HCl/ Dextrose (Maxipime/D5W) 55 ml @ 110 mls/hr Q24H IV 06/24/16 12:00 07/01/16 11:59 06/26/16 13:42 Clopidogrel Bisulfate (Plavix) 75 mg DAILY ORAL 06/25/16 09:00 07/25/16 08:59 06/26/16 08:16 Dextrose (Dextrose 50%) STAT PRN IV Hypoglycemia 06/24/16 10:00 07/24/16 09:59 Insulin Aspart (NovoLOG) BEFORE MEALS AND HS SUBQ 06/24/16 12:00 07/24/16 11:59 06/26/16 16:35 Nitroglycerin (Ntg) 0.4 mg Q5M PRN SL Prn Chest Pain 06/24/16 10:00 07/24/16 09:59 Ondansetron HCl (Zofran) 4 mg Q6H PRN IVP Nausea & Vomiting 06/24/16 10:00 07/24/16 09:59 Polyethylene Glycol (Miralax) 17 gm DAILYPRN PRN ORAL Constipation 06/24/16 10:00 07/24/16 09:59 Temazepam (Restoril) 15 mg HSPRN PRN ORAL Insomnia 06/24/16 21:00 07/01/16 20:59 Vancomycin HCl 1 ea 1 ea DAILY PRN MISC Per rx protocol 06/24/16 20:15 07/24/16 20:14 Vancomycin HCl/ Dextrose (Vancomycin/D5W) 275 ml @ 183.708 mls/hr Q24H IVPB 06/26/16 13:00 07/01/16 12:59 06/26/16 14:20 DIONI TRIANA Jun 26, 2016 16:39
--- NOTE | 2016-06-26 17:22 | Internal Med Progress Note ---
Subjective Date of Service: Jun 26, 2016 Physician Name Pond,Katharina Attending Physician Rl Tee MD Current Medications Medications (Trade) Dose Ordered Sig/Pavel Route PRN Reason Start Time Stop Time Status Last Admin Dose Admin Acetaminophen (Tylenol) 650 mg Q4H PRN ORAL T>100.5 06/24/16 10:00 07/24/16 09:59 06/25/16 21:17 Al Hydroxide/Mg Hydroxide (Mylanta II) 30 ml Q6H PRN ORAL dyspepsia 06/24/16 10:00 07/24/16 09:59 Albuterol/ Ipratropium 3 ml 3 ml Q4H PRN HHN Shortness of Breath 06/24/16 10:00 06/29/16 09:59 Cefepime HCl/ Dextrose (Maxipime/D5W) 55 ml @ 110 mls/hr Q24H IV 06/24/16 12:00 07/01/16 11:59 06/26/16 13:42 Clopidogrel Bisulfate (Plavix) 75 mg DAILY ORAL 06/25/16 09:00 07/25/16 08:59 06/26/16 08:16 Dextrose (Dextrose 50%) STAT PRN IV Hypoglycemia 06/24/16 10:00 07/24/16 09:59 Insulin Aspart (NovoLOG) BEFORE MEALS AND HS SUBQ 06/24/16 12:00 07/24/16 11:59 06/26/16 16:35 Nitroglycerin (Ntg) 0.4 mg Q5M PRN SL Prn Chest Pain 06/24/16 10:00 07/24/16 09:59 Ondansetron HCl (Zofran) 4 mg Q6H PRN IVP Nausea & Vomiting 06/24/16 10:00 07/24/16 09:59 Polyethylene Glycol (Miralax) 17 gm DAILYPRN PRN ORAL Constipation 06/24/16 10:00 07/24/16 09:59 Temazepam (Restoril) 15 mg HSPRN PRN ORAL Insomnia 06/24/16 21:00 07/01/16 20:59 Vancomycin HCl 1 ea 1 ea DAILY PRN MISC Per rx protocol 06/24/16 20:15 07/24/16 20:14 Vancomycin HCl/ Dextrose (Vancomycin/D5W) 275 ml @ 183.708 mls/hr Q24H IVPB 06/26/16 13:00 07/01/16 12:59 06/26/16 14:20 Allergies: Coded Allergies: PENICILLINS (Unverified Allergy, Unknown, 03/22/15) ROS Limited/Unobtainable: No Constitutional: Reports: chills, fever HEENT: Reports: no symptoms Cardiovascular: Reports: no symptoms Respiratory: Reports: no symptoms Gastrointestinal/Abdominal: Reports: no symptoms Genitourinary: Reports: no symptoms Neurologic/Psychiatric: Reports: no symptoms Subjective 76 YO F admitted with fever, now UTI and sepsis. Cover for Int Med-Dr Tee. ESBL E. Coli UTI. Objective Last Vital Signs Date Time Temp Pulse Resp B/P Pulse Ox O2 Delivery O2 Flow Rate FiO2 06/26/16 16:00 97.7 77 20 156/72 94 Room Air 06/24/16 10:45 2.0 Laboratory Tests Test 06/26/16 04:50 06/26/16 08:47 White Blood Count 3.0 K/UL (4.8-10.8) L Red Blood Count 3.00 M/UL (4.20-5.40) L Hemoglobin 9.0 G/DL (12.0-16.0) L Hematocrit 27.7 % (37.0-47.0) L Mean Corpuscular Volume 93 FL (80-99) Mean Corpuscular Hemoglobin 29.9 PG (27.0-31.0) Mean Corpuscular Hemoglobin Concent 32.3 G/DL (32.0-36.0) Red Cell Distribution Width 14.5 % (11.6-14.8) Platelet Count 74 K/UL (150-450) L Mean Platelet Volume 7.0 FL (6.5-10.1) Neutrophils (%) (Auto) % (45.0-75.0) Lymphocytes (%) (Auto) % (20.0-45.0) Monocytes (%) (Auto) % (1.0-10.0) Eosinophils (%) (Auto) % (0.0-3.0) Basophils (%) (Auto) % (0.0-2.0) Differential Total Cells Counted 100 Neutrophils % (Manual) 34 % (45-75) L Lymphocytes % (Manual) 55 % (20-45) H Monocytes % (Manual) 7 % (1-10) Eosinophils % (Manual) 3 % (0-3) Basophils % (Manual) 0 % (0-2) Band Neutrophils 1 % (0-8) Platelet Estimate Decreased L Platelet Morphology Normal Anisocytosis 1+ Sodium Level 138 mEQ/L (135-145) Potassium Level 4.3 mEQ/L (3.4-4.9) Chloride Level 103 mEQ/L (98-107) Carbon Dioxide Level 20 mEQ/L (20-30) Anion Gap 15 (5-15) Blood Urea Nitrogen 21 mg/dL (7-23) Creatinine 1.1 mg/dL (0.5-0.9) H Estimat Glomerular Filtration Rate mL/min (>60) Glucose Level 78 mg/dL (74-106) Calcium Level 9.2 mg/dL (8.6-10.2) Vancomycin Level Trough 19.7 ug/mL (5.0-12.0) H Microbiology Date/Time Source Procedure Growth Status 06/24/16 21:00 Blood Blood Culture - Preliminary NO GROWTH AFTER 24 HOURS Resulted 06/24/16 20:50 Blood Blood Culture - Preliminary NO GROWTH AFTER 24 HOURS Resulted 06/24/16 07:43 Blood Blood Culture - Preliminary Staphylococcus Sp Coag Neg Resulted 06/24/16 07:21 Blood Blood Culture - Preliminary Staphylococcus Sp Coag Neg Resulted 06/24/16 08:34 Nasal Nares MRSA Culture - Final Staphylococcus Aureus - Mrsa Complete 06/24/16 07:21 Urine,Clean Catch Urine Culture - Preliminary Escherichia Coli - Esbl Resulted 06/24/16 08:34 Rectum VRE Culture - Final Enterococcus Faecalis - Vre Enterococcus Faecium - Vre Complete Intake and Output 06/25/16 06/26/16 19:00 07:00 Intake Total 120 ml 610 ml Output Total 350 ml 1100 ml Balance -230 ml -490 ml Intake Oral 120 ml 610 ml Output Urine Total 350 ml 1100 ml # Bowel Movements 1 Objective General Appearance: WD/WN, alert, obese EENT: PERRL/EOMI, normal ENT inspection Neck: non-tender, normal alignment, supple Cardiovascular: normal peripheral pulses, normal rate, regular rhythm, no gallop/murmur, no JVD Respiratory/Chest: chest wall non-tender, lungs clear, normal breath sounds, no respiratory distress, no accessory muscle use Abdomen: normal bowel sounds, non tender, soft, no organomegaly, no mass Extremities: normal range of motion 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 (2) UTI (urinary tract infection) Assessment & Plan: ESBL E. Coli. Continue cefepime and vanco. See ID note. (3) Sepsis Assessment & Plan: Coag neg staph. See ID note. Cont vanco and cefepime (4) Anemia (5) Fever (6) Diabetes mellitus Assessment & Plan: Continue novolog sliding scale. (7) Sleep apnea (8) Hypertension (9) GERD (gastroesophageal reflux disease) (10) Hypercholesteremia (11) Cardiomegaly (12) Cirrhosis (13) Elevated liver enzymes Assessment & Plan: See GI note. Status: progressing KATHARINA POND Jun 26, 2016 17:22
[2016-06-26 19:00] VITALS: BP 140/68
[2016-06-27] VITALS: BP 141/68
[2016-06-27] MEDS ORDERED: Sodium Phosphate 10 MM in NS 275 ML IVPB ONE ×2 (01:30→08:00)
[2016-06-27 04:00] VITALS: BP 147/71
[2016-06-27] MEDS: DuoNeb 0.5-3(2.5)mg/3ml neb HHN PRN (04:14)
[2016-06-27] MEDS: NovoLOG Insulin Flexpen SUBQ SCH ×4 (06:02→21:00)
[2016-06-27 07:13] LABS: MEAN CORPUSCULAR HEMOGLOBIN 29.9 PG (27.0-31.0); MEAN CORPUSCULAR HGB CONC 32.3 G/DL (32.0-36.0); MEAN CORPUSCULAR VOLUME 93 FL (80-99); MEAN PLATELET VOLUME 7.3 FL (6.5-10.1); PLATELET COUNT 80 K/UL (150-450); RED BLOOD COUNT 3.03 M/UL (4.20-5.40); RED CELL DISTRIBUTION WIDTH 14.2 % (11.6-14.8); WHITE BLOOD COUNT 3.9 K/UL (4.8-10.8)
[2016-06-27 07:34] LABS: ANION GAP 17 (5-15); CALCIUM 9.6 mg/dL (8.6-10.2); CARBON DIOXIDE 20 mEQ/L (20-30); CHLORIDE 99 mEQ/L (98-107); CREATININE 1.1 mg/dL (0.5-0.9); HEMOLYSIS 9; POTASSIUM 3.8 mEQ/L (3.4-4.9); SODIUM 136 mEQ/L (135-145)
[2016-06-27 07:35] VITALS: BP 155/75
--- NOTE | 2016-06-27 09:38 | Infectious Diseases Prog Note ---
Assessment/Plan Assessment/Plan ASSESSMENT: 76 y/o female with: // Fever , S{ // probable PICC infection // CoNS bacteremia : recurrent ro SBE hx of recent CoNS Bacteremia x 2 // Recurrent complicated ESBL(+) E.coli + UTI - - CT A/P 09/2015: 9 x 4 mm left proximal ureteral stone with mild left hydronephrosis. Tiny nonobstructive stone in the mid pole the left kidney. Bladder wall thickening, suspected cystitis - h/o ESBL(+) E.coli, P.mirabilis, K.oxytoca, C.albicans // Multiple superficial decubiti POA, not grossly infected // Afebrile without leukocytosis // CKD3 // Hypercalcemia // DM2 // Obesity // MRSA, VRE colonized // PCN allergy - tolerates carbapenems // Full Code PLAN: - cont pt on Vanco d# 3 , start Merrem d# 1 and DC Cefepime d# 3 ( 06/11 SP IV vancomycin, meropenem d# 3 ) - f/u cultures ( Bl ) repeat - monitor CBC, temperatures - monitor BMP - NAM ( DW PCP ) to Ro SBE Subjective Constitutional: Denies: anorexia, chills, drenching sweats, fatigue, fever, no symptoms, other Allergies: Coded Allergies: PENICILLINS (Unverified Allergy, Unknown, 03/22/15) Objective Vital Signs Last 24 Hour Vital Signs Date Time Temp Pulse Resp B/P Pulse Ox O2 Delivery O2 Flow Rate FiO2 06/27/16 07:35 97.7 92 16 155/75 97 Room Air 06/27/16 04:33 89 18 99 Room Air 06/27/16 04:15 87 18 97 Room Air 06/27/16 04:14 87 18 Room Air 06/27/16 04:00 97.9 72 20 147/71 96 Room Air 06/27/16 00:00 97.7 83 20 141/68 92 Room Air 06/26/16 19:00 98.2 81 20 140/68 96 Room Air 06/26/16 16:00 97.7 77 20 156/72 94 Room Air 06/26/16 11:04 97.9 81 16 139/61 94 Room Air Height (Feet): 5 Weight (Pounds): 211 HEENT: anicteric Respiratory/Chest: no respiratory distress Cardiovascular: no JVD Abdomen: soft, non tender Microbiology Date/Time Source Procedure Growth Status 06/24/16 21:00 Blood Blood Culture - Preliminary NO GROWTH AFTER 48 HOURS Resulted 06/24/16 20:50 Blood Blood Culture - Preliminary NO GROWTH AFTER 48 HOURS Resulted Laboratory Tests Test 06/27/16 05:15 White Blood Count 3.9 K/UL (4.8-10.8) L Red Blood Count 3.03 M/UL (4.20-5.40) L Hemoglobin 9.1 G/DL (12.0-16.0) L Hematocrit 28.1 % (37.0-47.0) L Mean Corpuscular Volume 93 FL (80-99) Mean Corpuscular Hemoglobin 29.9 PG (27.0-31.0) Mean Corpuscular Hemoglobin Concent 32.3 G/DL (32.0-36.0) Red Cell Distribution Width 14.2 % (11.6-14.8) Platelet Count 80 K/UL (150-450) L Mean Platelet Volume 7.3 FL (6.5-10.1) Neutrophils (%) (Auto) % (45.0-75.0) Lymphocytes (%) (Auto) % (20.0-45.0) Monocytes (%) (Auto) % (1.0-10.0) Eosinophils (%) (Auto) % (0.0-3.0) Basophils (%) (Auto) % (0.0-2.0) Neutrophils % (Manual) Pending Lymphocytes % (Manual) Pending Platelet Estimate Pending Platelet Morphology Pending Sodium Level 136 mEQ/L (135-145) Potassium Level 3.8 mEQ/L (3.4-4.9) Chloride Level 99 mEQ/L (98-107) Carbon Dioxide Level 20 mEQ/L (20-30) Anion Gap 17 (5-15) H Blood Urea Nitrogen 17 mg/dL (7-23) Creatinine 1.1 mg/dL (0.5-0.9) H Estimat Glomerular Filtration Rate mL/min (>60) Glucose Level 115 mg/dL (74-106) H Calcium Level 9.6 mg/dL (8.6-10.2) Current Medications Medications (Trade) Dose Ordered Sig/Pavel Route PRN Reason Start Time Stop Time Status Last Admin Dose Admin Acetaminophen (Tylenol) 650 mg Q4H PRN ORAL T>100.5 06/24/16 10:00 07/24/16 09:59 06/26/16 17:50 Al Hydroxide/Mg Hydroxide (Mylanta II) 30 ml Q6H PRN ORAL dyspepsia 06/24/16 10:00 07/24/16 09:59 Albuterol/ Ipratropium 3 ml 3 ml Q4H PRN HHN Shortness of Breath 06/24/16 10:00 06/29/16 09:59 06/27/16 04:14 Cefepime HCl/ Dextrose (Maxipime/D5W) 55 ml @ 110 mls/hr Q24H IV 06/24/16 12:00 07/01/16 11:59 06/26/16 13:42 Clopidogrel Bisulfate (Plavix) 75 mg DAILY ORAL 06/25/16 09:00 07/25/16 08:59 06/26/16 08:16 Dextrose (Dextrose 50%) STAT PRN IV Hypoglycemia 06/24/16 10:00 07/24/16 09:59 Insulin Aspart (NovoLOG) BEFORE MEALS AND HS SUBQ 06/24/16 12:00 07/24/16 11:59 06/27/16 06:02 Nitroglycerin (Ntg) 0.4 mg Q5M PRN SL Prn Chest Pain 06/24/16 10:00 07/24/16 09:59 Ondansetron HCl (Zofran) 4 mg Q6H PRN IVP Nausea & Vomiting 06/24/16 10:00 07/24/16 09:59 Polyethylene Glycol (Miralax) 17 gm DAILYPRN PRN ORAL Constipation 06/24/16 10:00 07/24/16 09:59 Sodium Phosphate/ Sodium Chloride (NaPO4/Sodium Chloride) 278.3333 ml @ 92.778 m... ONCE ONCE IVPB 06/27/16 08:00 06/27/16 10:59 06/27/16 09:17 Temazepam (Restoril) 15 mg HSPRN PRN ORAL Insomnia 06/24/16 21:00 07/01/16 20:59 06/26/16 21:15 Vancomycin HCl 1 ea 1 ea DAILY PRN MISC Per rx protocol 06/24/16 20:15 07/24/16 20:14 Vancomycin HCl 1 gm/Dextrose 275 ml @ 183.708 mls/hr Q24H IVPB 06/26/16 13:00 07/01/16 12:59 06/26/16 14:20 LYLA ROJAS M.D. Jun 27, 2016 09:38
[2016-06-27 09:56] LABS: BAND NEUTROPHILS % (MANUAL) 2 % (0-8); BASOPHILS % (MANUAL) 0 % (0-2); EOSINOPHILS % (MANUAL) 5 % (0-3); LYMPHOCYTES % (MANUAL) 21 % (20-45); NEUTROPHILS % (MANUAL) 64 % (45-75); PLATELET ESTIMATE DECREASED; PLATELET MORPHOLOGY NORMAL; TOTAL CELLS COUNTED 100
[2016-06-27 11:09] VITALS: BP 139/66
[2016-06-27] MEDS: Meropenem 1 GM in NS 110 ML IVPB SCH ×3 (11:30→21:32)
[2016-06-27] MEDS: Vancomycin 1gm/D5W 275ml IVPB SCH ×2 (13:15)
--- NOTE | 2016-06-27 15:39 | Consultation ---
DATE OF CONSULTATION: 06/25/2016 INFECTIOUS DISEASES CONSULTATION REFERRING PHYSICIAN: Jed Guthrie M.D. REASON FOR CONSULTATION: Evaluation of the patient for fever, bacteremia, line sepsis, antibiotic management. HISTORY OF PRESENT ILLNESS: The patient is a 76-year-old female, who was admitted to this medical center for complete urinary tract infection, positive blood culture for coag-negative staph. Now comes back to the hospital with fever. The patient has positive blood culture for gram-positive cocci. Infectious Disease consultation has been requested for further evaluation of the patient's antibiotic management. PAST MEDICAL HISTORY: 1. . 2. Anemia. 3. Acute renal failure. 4. Hypercalcemia. 5. Diabetes. 6. Obesity. ALLERGIES: Penicillin. However, the patient has been tolerating meropenem in the past. MEDICATIONS: IV vancomycin and cefepime. FAMILY HISTORY: Noncontributory. REVIEW OF SYSTEMS: HEENT: No recent change in vision or hearing. Pulmonary: No cough or shortness of breath. Cardiovascular: No chest pain or palpitations. Gastrointestinal/Abdomen: No nausea or vomiting. Genitourinary: No dysuria. Musculoskeletal: No pain in extremities. PHYSICAL EXAMINATION: VITAL SIGNS: Temperature 98 degrees, blood pressure 128/48, pulse 77, respiratory rate 18. HEENT: Mild pale conjunctivae. No icterus. NECK: No lymphadenopathy. CHEST: Coarse breathing sounds. HEART: S1 and S2. ABDOMEN: Soft and nontender. EXTREMITIES: No cyanosis. The patient has left upper extremity PICC line. NEUROLOGIC: Alert and awake. LABORATORY DATA: White blood cells 3.9, hemoglobin 7.8, and platelets 68,000. UA, 20 to 30 white blood cells, 5 to 10 red blood cells. BUN 24 and creatinine 1.4. ALT 22, AST 91, alkaline phosphatase is 134. Hepatitis serology negative for hepatitis A, B, and C. HIV test negative. Blood culture 2/2 sets growing gram-positive cocci. Urine culture is growing gram-negative linda. Chest x-ray, no acute infiltrate. ASSESSMENT: The patient is a 76-year-old female with multiple medical problems who has been admitted to this medical center with fever. The patient was found to have positive blood culture, most likely line infection. The patient positive for urine for gram-negative linda, however, this appears to be colonizing/asymptomatic at this time. PLAN: 1. We will continue the patient on IV vancomycin and cefepime. 2. Monitor CBC. 3. Monitor BMP. 4. Monitor culture. 5. . 6. for culture. 7. Monitor chest x-ray. 8. Based on the patient's clinical course and labs, we will do further recommendation. Thank you, Dr. Guthrie, for allowing me to participate in the care of this patient. I will follow the patient with you during this hospitalization. Eitan Stark M.D. DR: RACQUEL JOB#: [id number] CC:
[2016-06-27 16:00] VITALS: BP 143/65
--- NOTE | 2016-06-27 19:20 | Internal Med Progress Note ---
Subjective Physician Name Rl Tee Attending Physician Rl Tee MD Current Medications Medications (Trade) Dose Ordered Sig/Pavel Route PRN Reason Start Time Stop Time Status Last Admin Dose Admin Acetaminophen (Tylenol) 650 mg Q4H PRN ORAL T>100.5 06/24/16 10:00 07/24/16 09:59 06/26/16 17:50 Al Hydroxide/Mg Hydroxide (Mylanta II) 30 ml Q6H PRN ORAL dyspepsia 06/24/16 10:00 07/24/16 09:59 Albuterol/ Ipratropium (DuoNeb 0.5-3(2.5)mg/3ml) 3 ml Q4H PRN HHN Shortness of Breath 06/24/16 10:00 06/29/16 09:59 06/27/16 04:14 Clopidogrel Bisulfate (Plavix) 75 mg DAILY ORAL 06/25/16 09:00 07/25/16 08:59 06/26/16 08:16 Dextrose (Dextrose 50%) STAT PRN IV Hypoglycemia 06/24/16 10:00 07/24/16 09:59 Insulin Aspart (NovoLOG) BEFORE MEALS AND HS SUBQ 06/24/16 12:00 07/24/16 11:59 06/27/16 17:23 Meropenem/Sodium Chloride (Merrem/Sodium Chloride) 110 ml @ 220 mls/hr Q8HR IVPB 06/27/16 11:00 07/02/16 10:59 06/27/16 12:26 Nitroglycerin (Ntg) 0.4 mg Q5M PRN SL Prn Chest Pain 06/24/16 10:00 07/24/16 09:59 Ondansetron HCl (Zofran) 4 mg Q6H PRN IVP Nausea & Vomiting 06/24/16 10:00 07/24/16 09:59 Polyethylene Glycol (Miralax) 17 gm DAILYPRN PRN ORAL Constipation 06/24/16 10:00 07/24/16 09:59 Temazepam (Restoril) 15 mg HSPRN PRN ORAL Insomnia 06/24/16 21:00 07/01/16 20:59 06/26/16 21:15 Vancomycin HCl 1 ea 1 ea DAILY PRN MISC Per rx protocol 06/24/16 20:15 07/24/16 20:14 Vancomycin HCl 1 gm/Dextrose 275 ml @ 183.708 mls/hr Q24H IVPB 06/26/16 13:00 07/01/16 12:59 06/27/16 13:15 Allergies: Coded Allergies: PENICILLINS (Unverified Allergy, Unknown, 03/22/15) Subjective awake, alert, responsive, feeling weak Objective Last Vital Signs Date Time Temp Pulse Resp B/P Pulse Ox O2 Delivery O2 Flow Rate FiO2 06/27/16 18:40 78 18 Room Air 06/27/16 16:00 98.2 143/65 95 06/24/16 10:45 2.0 Laboratory Tests Test 06/27/16 05:15 White Blood Count 3.9 K/UL (4.8-10.8) L Red Blood Count 3.03 M/UL (4.20-5.40) L Hemoglobin 9.1 G/DL (12.0-16.0) L Hematocrit 28.1 % (37.0-47.0) L Mean Corpuscular Volume 93 FL (80-99) Mean Corpuscular Hemoglobin 29.9 PG (27.0-31.0) Mean Corpuscular Hemoglobin Concent 32.3 G/DL (32.0-36.0) Red Cell Distribution Width 14.2 % (11.6-14.8) Platelet Count 80 K/UL (150-450) L Mean Platelet Volume 7.3 FL (6.5-10.1) Neutrophils (%) (Auto) % (45.0-75.0) Lymphocytes (%) (Auto) % (20.0-45.0) Monocytes (%) (Auto) % (1.0-10.0) Eosinophils (%) (Auto) % (0.0-3.0) Basophils (%) (Auto) % (0.0-2.0) Differential Total Cells Counted 100 Neutrophils % (Manual) 64 % (45-75) Lymphocytes % (Manual) 21 % (20-45) Monocytes % (Manual) 8 % (1-10) Eosinophils % (Manual) 5 % (0-3) H Basophils % (Manual) 0 % (0-2) Band Neutrophils 2 % (0-8) Platelet Estimate Decreased L Platelet Morphology Normal Red Blood Cell Morphology Normal Sodium Level 136 mEQ/L (135-145) Potassium Level 3.8 mEQ/L (3.4-4.9) Chloride Level 99 mEQ/L (98-107) Carbon Dioxide Level 20 mEQ/L (20-30) Anion Gap 17 (5-15) H Blood Urea Nitrogen 17 mg/dL (7-23) Creatinine 1.1 mg/dL (0.5-0.9) H Estimat Glomerular Filtration Rate mL/min (>60) Glucose Level 115 mg/dL (74-106) H Calcium Level 9.6 mg/dL (8.6-10.2) Microbiology Date/Time Source Procedure Growth Status 06/24/16 21:00 Blood Blood Culture - Preliminary NO GROWTH AFTER 48 HOURS Resulted 06/24/16 20:50 Blood Blood Culture - Preliminary NO GROWTH AFTER 48 HOURS Resulted Intake and Output 06/26/16 06/27/16 19:00 07:00 Intake Total 1267.42 ml 560 ml Output Total 1300 ml 1350 ml Balance -32.58 ml -790 ml Intake Oral 900 ml 360 ml IV Total 367.42 ml 200 ml Output Urine Total 1300 ml 1350 ml # Bowel Movements 2 Objective GENERAL: The patient is a well-developed and well-nourished white female, in no apparent distress. HEENT: Eyes, pupils are equal and responsive to light and accommodation. Extraocular movements are intact. NECK: Supple without no lymphadenopathy. CHEST: Lungs are clear to auscultation bilaterally without wheezes or rales. CARDIOVASCULAR: Regular rate. S1 and S2 normal without murmurs, ABDOMEN: Soft, nontender, and nondistended. Positive bowel sounds. Morbid obesity. EXTREMITIES: Negative for clubbing, cyanosis, or edema. RECTAL: Refused. GENITAL: Refused. NEUROLOGIC: Cranial nerves II through XII are grossly intact without focal deficits. Motor strength is 5/5 bilaterally. Assessment/Plan Assessment/Plan ASSESSMENT: This is a test 76-year-old white female 1. Bacteremia with staph coag negative 2. ESBL E.coli Urinary tract infection. 3. Anemia. 4. Diabetes type 2. 5. Hypertension. 6. Obstructive sleep apnea. 7. Gastroesophageal reflux disease. 8. Hypercholesterolemia. 9. Cardiomyopathy. 10. Diabetic nephropathy. 11. Liver cirrhosis / DURANT. 12. Thrombocytopenia. TREATMENT: Abx: Vanco / meropenem Monitor Labs and cultures PT Mobility OOB to chair NAM Ro Rl Cano MD 10, 2017 19:20
[2016-06-27 20:00] VITALS: BP 139/60
--- NOTE | 2016-06-27 22:17 | General Progress Note ---
Assessment/Plan Assessment/Plan Assessment - DURANT - Cirrhosis - Anemia - debilitation Recommendations - push po - elevate HOB - Transfuse PRN - PPI Subjective Allergies: Coded Allergies: PENICILLINS (Unverified Allergy, Unknown, 03/22/15) Subjective feels better no abd pain appetite OK (+) BM Objective Last 24 Hour Vital Signs Date Time Temp Pulse Resp B/P Pulse Ox O2 Delivery O2 Flow Rate FiO2 06/27/16 20:00 98.6 70 17 139/60 100 Room Air 06/27/16 18:40 78 18 Room Air 06/27/16 16:00 98.2 84 19 143/65 95 Room Air 06/27/16 16:00 98.2 84 19 143/65 95 Room Air 06/27/16 11:09 97.9 82 14 139/66 96 Room Air 06/27/16 07:35 97.7 92 16 155/75 97 Room Air 06/27/16 04:33 89 18 99 Room Air 06/27/16 04:15 87 18 97 Room Air 06/27/16 04:14 87 18 Room Air 06/27/16 04:00 97.9 72 20 147/71 96 Room Air 06/27/16 00:00 97.7 83 20 141/68 92 Room Air Intake and Output 06/26/16 06/27/16 19:00 07:00 Intake Total 1267.42 ml 560 ml Output Total 1300 ml 1350 ml Balance -32.58 ml -790 ml Intake Oral 900 ml 360 ml IV Total 367.42 ml 200 ml Output Urine Total 1300 ml 1350 ml # Bowel Movements 2 Laboratory Tests 06/27/16 05:15: White Blood Count 3.9L, Red Blood Count 3.03L, Hemoglobin 9.1L, Hematocrit 28.1L , Mean Corpuscular Volume 93, Mean Corpuscular Hemoglobin 29.9, Mean Corpuscular Hemoglobin Concent 32.3, Red Cell Distribution Width 14.2, Platelet Count 80L, Mean Platelet Volume 7.3, Neutrophils (%) (Auto) , Lymphocytes (%) ( Auto) , Monocytes (%) (Auto) , Eosinophils (%) (Auto) , Basophils (%) (Auto) , Differential Total Cells Counted 100, Neutrophils % (Manual) 64, Lymphocytes % ( Manual) 21, Monocytes % (Manual) 8, Eosinophils % (Manual) 5H, Basophils % ( Manual) 0, Band Neutrophils 2, Platelet Estimate DecreasedL, Platelet Morphology Normal, Red Blood Cell Morphology Normal, Sodium Level 136, Potassium Level 3.8, Chloride Level 99, Carbon Dioxide Level 20, Anion Gap 17H, Blood Urea Nitrogen 17, Creatinine 1.1H, Estimat Glomerular Filtration Rate , Glucose Level 115H, Calcium Level 9.6 Height (Feet): 5 Weight (Pounds): 211 Objective WDWN NCAT supple CTA RRR soft ND NT no edema KIERSTEN DAVIES Jun 27, 2016 22:17
--- NOTE | 2016-06-27 23:31 | Pulmonology Progress Note ---
Assessment/Plan Problems: (1) Sepsis (2) Anemia (3) COPD (chronic obstructive pulmonary disease) with emphysema (4) Sleep apnea (5) Cirrhosis (6) Obesity (7) DM (diabetes mellitus) Assessment/Plan no new complains line has been removed prbc one unit today GI and ID consult appreciated continue antibiotics, meropenem, Vancomycin check cultures tolerating diet sliding scle all notes, meds labs reviewed Subjective Interval Events: comfortable, no complains Allergies: Coded Allergies: PENICILLINS (Unverified Allergy, Unknown, 03/22/15) Objective Last 24 Hour Vital Signs Date Time Temp Pulse Resp B/P Pulse Ox O2 Delivery O2 Flow Rate FiO2 06/27/16 20:00 98.6 70 17 139/60 100 Room Air 06/27/16 18:40 78 18 Room Air 06/27/16 16:00 98.2 84 19 143/65 95 Room Air 06/27/16 16:00 98.2 84 19 143/65 95 Room Air 06/27/16 11:09 97.9 82 14 139/66 96 Room Air 06/27/16 07:35 97.7 92 16 155/75 97 Room Air 06/27/16 04:33 89 18 99 Room Air 06/27/16 04:15 87 18 97 Room Air 06/27/16 04:14 87 18 Room Air 06/27/16 04:00 97.9 72 20 147/71 96 Room Air 06/27/16 00:00 97.7 83 20 141/68 92 Room Air Intake and Output 06/26/16 06/27/16 19:00 07:00 Intake Total 1267.42 ml 560 ml Output Total 1300 ml 1350 ml Balance -32.58 ml -790 ml Intake Oral 900 ml 360 ml IV Total 367.42 ml 200 ml Output Urine Total 1300 ml 1350 ml # Bowel Movements 2 Objective HEENT: normocephalic Respiratory/Chest: chest wall non-tender, lungs clear Cardiovascular: normal peripheral pulses, normal rate Abdomen: normal bowel sounds, soft, non tender Extremities: no cyanosis, no clubbing Skin: no ulcers Neurologic/Psychiatric: hospital social worker II-XII grossly normal Musculoskeletal: normal muscle bulk, Laboratory Tests 06/27/16 05:15: White Blood Count 3.9L, Red Blood Count 3.03L, Hemoglobin 9.1L, Hematocrit 28.1L , Mean Corpuscular Volume 93, Mean Corpuscular Hemoglobin 29.9, Mean Corpuscular Hemoglobin Concent 32.3, Red Cell Distribution Width 14.2, Platelet Count 80L, Mean Platelet Volume 7.3, Neutrophils (%) (Auto) , Lymphocytes (%) ( Auto) , Monocytes (%) (Auto) , Eosinophils (%) (Auto) , Basophils (%) (Auto) , Differential Total Cells Counted 100, Neutrophils % (Manual) 64, Lymphocytes % ( Manual) 21, Monocytes % (Manual) 8, Eosinophils % (Manual) 5H, Basophils % ( Manual) 0, Band Neutrophils 2, Platelet Estimate DecreasedL, Platelet Morphology Normal, Red Blood Cell Morphology Normal, Sodium Level 136, Potassium Level 3.8, Chloride Level 99, Carbon Dioxide Level 20, Anion Gap 17H, Blood Urea Nitrogen 17, Creatinine 1.1H, Estimat Glomerular Filtration Rate , Glucose Level 115H, Calcium Level 9.6 Current Medications Medications (Trade) Dose Ordered Sig/Pavel Route PRN Reason Start Time Stop Time Status Last Admin Dose Admin Acetaminophen (Tylenol) 650 mg Q4H PRN ORAL T>100.5 06/24/16 10:00 07/24/16 09:59 06/26/16 17:50 Al Hydroxide/Mg Hydroxide (Mylanta II) 30 ml Q6H PRN ORAL dyspepsia 06/24/16 10:00 07/24/16 09:59 Albuterol/ Ipratropium (DuoNeb 0.5-3(2.5)mg/3ml) 3 ml Q4H PRN HHN Shortness of Breath 06/24/16 10:00 06/29/16 09:59 06/27/16 04:14 Clopidogrel Bisulfate (Plavix) 75 mg DAILY ORAL 06/25/16 09:00 07/25/16 08:59 06/26/16 08:16 Dextrose (Dextrose 50%) STAT PRN IV Hypoglycemia 06/24/16 10:00 07/24/16 09:59 Diphenhydramine HCl (Benadryl) 25 mg Q8H PRN ORAL Itching 06/27/16 21:00 07/27/16 20:59 06/27/16 21:32 Insulin Aspart (NovoLOG) BEFORE MEALS AND HS SUBQ 06/24/16 12:00 07/24/16 11:59 06/27/16 17:23 Meropenem/Sodium Chloride (Merrem/Sodium Chloride) 110 ml @ 220 mls/hr Q8HR IVPB 06/27/16 11:00 07/02/16 10:59 06/27/16 21:32 Nitroglycerin (Ntg) 0.4 mg Q5M PRN SL Prn Chest Pain 06/24/16 10:00 07/24/16 09:59 Ondansetron HCl (Zofran) 4 mg Q6H PRN IVP Nausea & Vomiting 06/24/16 10:00 07/24/16 09:59 Polyethylene Glycol (Miralax) 17 gm DAILYPRN PRN ORAL Constipation 06/24/16 10:00 07/24/16 09:59 Temazepam (Restoril) 15 mg HSPRN PRN ORAL Insomnia 06/24/16 21:00 07/01/16 20:59 06/26/16 21:15 Vancomycin HCl 1 ea 1 ea DAILY PRN MISC Per rx protocol 06/24/16 20:15 07/24/16 20:14 Vancomycin HCl 1 gm/Dextrose 275 ml @ 183.708 mls/hr Q24H IVPB 06/26/16 13:00 07/01/16 12:59 06/27/16 13:15 DIONI TRIANA Jun 27, 2016 23:31
[2016-06-28] VITALS: BP 119/55
[2016-06-28] MEDS: DuoNeb 0.5-3(2.5)mg/3ml neb HHN PRN (01:24)
[2016-06-28 04:00] VITALS: BP 144/69
[2016-06-28] MEDS: NovoLOG Insulin Flexpen SUBQ SCH ×4 (06:30→21:00)
[2016-06-28] MEDS: Meropenem 1 GM in NS 110 ML IVPB SCH ×3 (06:32→21:42)
[2016-06-28 08:21] VITALS: BP 134/66
[2016-06-28 12:26] VITALS: BP 148/77
--- NOTE | 2016-06-28 14:11 | General Progress Note ---
Assessment/Plan Assessment/Plan Assessment - DURANT - Cirrhosis - Anemia - debilitation Recommendations - push po - elevate HOB - Transfuse PRN - PPI Subjective Allergies: Coded Allergies: PENICILLINS (Unverified Allergy, Unknown, 03/22/15) Subjective feels better no abd pain appetite OK (+) BM d/w therapeutic support staff Objective Last 24 Hour Vital Signs Date Time Temp Pulse Resp B/P Pulse Ox O2 Delivery O2 Flow Rate FiO2 06/28/16 12:26 98.2 85 20 148/77 98 Room Air 06/28/16 08:21 97.9 97 20 134/66 99 Room Air 06/28/16 06:54 95 18 Room Air 06/28/16 04:00 98 22 144/69 95 Nasal Cannula 98.2 06/28/16 01:26 79 18 100 Room Air 06/28/16 01:25 86 18 97 Room Air 06/28/16 00:00 97.5 103 20 119/55 96 Nasal Cannula 2.0 06/27/16 20:00 98.6 70 17 139/60 100 Room Air 06/27/16 18:40 78 18 Room Air 06/27/16 16:00 98.2 84 19 143/65 95 Room Air 06/27/16 16:00 98.2 84 19 143/65 95 Room Air Intake and Output 06/27/16 06/28/16 19:00 07:00 Intake Total 1563.334 ml 470 ml Output Total 300 ml 1150 ml Balance 1263.334 ml -680 ml Intake Oral 900 ml 360 ml IV Total 663.334 ml 110 ml Output Urine Total 300 ml 1150 ml # Voids 2 # Bowel Movements 2 Laboratory Tests 06/28/16 11:50: Vancomycin Level Trough 21.5H Height (Feet): 5 Weight (Pounds): 211 Objective WDWN NCAT supple CTA RRR soft ND NT no edema KIERSTEN DAVIES Jun 28, 2016 14:11
--- NOTE | 2016-06-28 14:21 | Infectious Diseases Prog Note ---
Assessment/Plan Assessment/Plan ASSESSMENT: 76 y/o female with: // Fever , SP // probable PICC infection // CoNS bacteremia : recurrent ro SBE hx of recent CoNS Bacteremia x 2 // Recurrent complicated ESBL(+) E.coli + UTI - - CT A/P 09/2015: 9 x 4 mm left proximal ureteral stone with mild left hydronephrosis. Tiny nonobstructive stone in the mid pole the left kidney. Bladder wall thickening, suspected cystitis - h/o ESBL(+) E.coli, P.mirabilis, K.oxytoca, C.albicans // Multiple superficial decubiti POA, not grossly infected // Afebrile without leukocytosis // CKD3 // Hypercalcemia // DM2 // Obesity // MRSA, VRE colonized // PCN allergy - tolerates carbapenems // Full Code PLAN: - cont pt on Vanco d# 4 and Merrem d# 2 / ( 06/26 SP Cefepime d# 3 ) ( 06/11 SP IV vancomycin, meropenem d# 3 ) - f/u cultures ( Bl ) repeat - monitor CBC, temperatures - monitor BMP - NAM ( DW PCP ) to Ro SBE Subjective Constitutional: Denies: anorexia, chills, drenching sweats, fatigue, fever, no symptoms, other Allergies: Coded Allergies: PENICILLINS (Unverified Allergy, Unknown, 03/22/15) Objective Vital Signs Last 24 Hour Vital Signs Date Time Temp Pulse Resp B/P Pulse Ox O2 Delivery O2 Flow Rate FiO2 06/28/16 12:26 98.2 85 20 148/77 98 Room Air 06/28/16 08:21 97.9 97 20 134/66 99 Room Air 06/28/16 06:54 95 18 Room Air 06/28/16 04:00 98 22 144/69 95 Nasal Cannula 98.2 06/28/16 01:26 79 18 100 Room Air 06/28/16 01:25 86 18 97 Room Air 06/28/16 00:00 97.5 103 20 119/55 96 Nasal Cannula 2.0 06/27/16 20:00 98.6 70 17 139/60 100 Room Air 06/27/16 18:40 78 18 Room Air 06/27/16 16:00 98.2 84 19 143/65 95 Room Air 06/27/16 16:00 98.2 84 19 143/65 95 Room Air Height (Feet): 5 Weight (Pounds): 211 Respiratory/Chest: normal breath sounds Cardiovascular: no JVD Abdomen: no organomegaly Laboratory Tests Test 06/28/16 11:50 Vancomycin Level Trough 21.5 ug/mL (5.0-12.0) H Current Medications Medications (Trade) Dose Ordered Sig/Pavel Route PRN Reason Start Time Stop Time Status Last Admin Dose Admin Acetaminophen (Tylenol) 650 mg Q4H PRN ORAL T>100.5 06/24/16 10:00 07/24/16 09:59 06/26/16 17:50 Al Hydroxide/Mg Hydroxide (Mylanta II) 30 ml Q6H PRN ORAL dyspepsia 06/24/16 10:00 07/24/16 09:59 Albuterol/ Ipratropium (DuoNeb 0.5-3(2.5)mg/3ml) 3 ml Q4H PRN HHN Shortness of Breath 06/24/16 10:00 06/29/16 09:59 06/28/16 01:24 Clopidogrel Bisulfate (Plavix) 75 mg DAILY ORAL 06/25/16 09:00 07/25/16 08:59 06/28/16 09:58 Dextrose (Dextrose 50%) STAT PRN IV Hypoglycemia 06/24/16 10:00 07/24/16 09:59 Diphenhydramine HCl (Benadryl) 25 mg Q8H PRN ORAL Itching 06/27/16 21:00 07/27/16 20:59 06/27/16 21:32 Insulin Aspart (NovoLOG) BEFORE MEALS AND HS SUBQ 06/24/16 12:00 07/24/16 11:59 06/28/16 11:43 Meropenem/Sodium Chloride (Merrem/Sodium Chloride) 110 ml @ 220 mls/hr Q8HR IVPB 06/27/16 11:00 07/02/16 10:59 06/28/16 13:59 Nitroglycerin (Ntg) 0.4 mg Q5M PRN SL Prn Chest Pain 06/24/16 10:00 07/24/16 09:59 Ondansetron HCl (Zofran) 4 mg Q6H PRN IVP Nausea & Vomiting 06/24/16 10:00 07/24/16 09:59 Polyethylene Glycol (Miralax) 17 gm DAILYPRN PRN ORAL Constipation 06/24/16 10:00 07/24/16 09:59 Temazepam (Restoril) 15 mg HSPRN PRN ORAL Insomnia 06/24/16 21:00 07/01/16 20:59 06/26/16 21:15 Vancomycin HCl 1 ea 1 ea DAILY PRN MISC Per rx protocol 06/24/16 20:15 07/24/16 20:14 LYLA ROJAS M.D. Jun 28, 2016 14:21
--- NOTE | 2016-06-28 15:14 | Internal Med Progress Note ---
Subjective Physician Name Rl Tee Attending Physician Rl Tee MD Current Medications Medications (Trade) Dose Ordered Sig/Pavel Route PRN Reason Start Time Stop Time Status Last Admin Dose Admin Acetaminophen (Tylenol) 650 mg Q4H PRN ORAL T>100.5 06/24/16 10:00 07/24/16 09:59 06/26/16 17:50 Al Hydroxide/Mg Hydroxide (Mylanta II) 30 ml Q6H PRN ORAL dyspepsia 06/24/16 10:00 07/24/16 09:59 Albuterol/ Ipratropium (DuoNeb 0.5-3(2.5)mg/3ml) 3 ml Q4H PRN HHN Shortness of Breath 06/24/16 10:00 06/29/16 09:59 06/28/16 01:24 Clopidogrel Bisulfate (Plavix) 75 mg DAILY ORAL 06/25/16 09:00 07/25/16 08:59 06/28/16 09:58 Dextrose (Dextrose 50%) STAT PRN IV Hypoglycemia 06/24/16 10:00 07/24/16 09:59 Diphenhydramine HCl (Benadryl) 25 mg Q8H PRN ORAL Itching 06/27/16 21:00 07/27/16 20:59 06/27/16 21:32 Insulin Aspart (NovoLOG) BEFORE MEALS AND HS SUBQ 06/24/16 12:00 07/24/16 11:59 06/28/16 11:43 Meropenem/Sodium Chloride (Merrem/Sodium Chloride) 110 ml @ 220 mls/hr Q8HR IVPB 06/27/16 11:00 07/02/16 10:59 06/28/16 13:59 Nitroglycerin (Ntg) 0.4 mg Q5M PRN SL Prn Chest Pain 06/24/16 10:00 07/24/16 09:59 Ondansetron HCl (Zofran) 4 mg Q6H PRN IVP Nausea & Vomiting 06/24/16 10:00 07/24/16 09:59 Polyethylene Glycol (Miralax) 17 gm DAILYPRN PRN ORAL Constipation 06/24/16 10:00 07/24/16 09:59 Temazepam (Restoril) 15 mg HSPRN PRN ORAL Insomnia 06/24/16 21:00 07/01/16 20:59 06/26/16 21:15 Vancomycin HCl 1 ea 1 ea DAILY PRN MISC Per rx protocol 06/24/16 20:15 07/24/16 20:14 Allergies: Coded Allergies: PENICILLINS (Unverified Allergy, Unknown, 03/22/15) Subjective awake, alert, responsive, feeling okay but depressed Objective Last Vital Signs Date Time Temp Pulse Resp B/P Pulse Ox O2 Delivery O2 Flow Rate FiO2 06/28/16 12:26 98.2 85 20 148/77 98 Room Air 06/28/16 04:00 98.2 Laboratory Tests Test 06/28/16 11:50 Vancomycin Level Trough 21.5 ug/mL (5.0-12.0) H Intake and Output 06/27/16 06/28/16 19:00 07:00 Intake Total 1563.334 ml 470 ml Output Total 300 ml 1150 ml Balance 1263.334 ml -680 ml Intake Oral 900 ml 360 ml IV Total 663.334 ml 110 ml Output Urine Total 300 ml 1150 ml # Voids 2 # Bowel Movements 2 Objective GENERAL: The patient is a well-developed and well-nourished white female, in no apparent distress. HEENT: Eyes, pupils are equal and responsive to light and accommodation. Extraocular movements are intact. NECK: Supple without no lymphadenopathy. CHEST: Lungs are clear to auscultation bilaterally without wheezes or rales. CARDIOVASCULAR: Regular rate. S1 and S2 normal without murmurs, ABDOMEN: Soft, nontender, and nondistended. Positive bowel sounds. Morbid obesity. EXTREMITIES: Negative for clubbing, cyanosis, or edema. RECTAL: Refused. GENITAL: Refused. NEUROLOGIC: Cranial nerves II through XII are grossly intact without focal deficits. Motor strength is 5/5 bilaterally. Assessment/Plan Assessment/Plan ASSESSMENT: This is a test 76-year-old white female 1. Bacteremia with staph coag negative 2. ESBL E.coli Urinary tract infection. 3. Anemia. 4. Diabetes type 2. 5. Hypertension. 6. Obstructive sleep apnea. 7. Gastroesophageal reflux disease. 8. Hypercholesterolemia. 9. Cardiomyopathy. 10. Diabetic nephropathy. 11. Liver cirrhosis / DURANT. 12. Thrombocytopenia. TREATMENT: Abx: Vanco / meropenem Monitor Labs and cultures PT Mobility OOB to chair NAM R/O SBE, cardiology consult Rl Tee MD Jun 28, 2016 15:14
[2016-06-28 16:18] VITALS: BP 153/78
[2016-06-28 20:00] VITALS: BP 150/81
[2016-06-28] MEDS ORDERED: Tubing IV Secondary IV ONE (21:36)
--- NOTE | 2016-06-28 23:52 | Pulmonology Progress Note ---
Assessment/Plan Problems: (1) Sepsis (2) Anemia (3) COPD (chronic obstructive pulmonary disease) with emphysema (4) Sleep apnea (5) Cirrhosis (6) Obesity (7) DM (diabetes mellitus) Assessment/Plan doing bettter no new complains line has been removed prbc one unit today GI and ID consult appreciated continue antibiotics check cultures, coag negative in blood tolerating diet sliding scle all notes, meds labs reviewed Subjective Interval Events: doing the same Allergies: Coded Allergies: PENICILLINS (Unverified Allergy, Unknown, 03/22/15) Objective Last 24 Hour Vital Signs Date Time Temp Pulse Resp B/P Pulse Ox O2 Delivery O2 Flow Rate FiO2 06/28/16 20:00 97.9 86 15 150/81 93 Room Air 06/28/16 19:10 89 18 Room Air 06/28/16 16:18 97.7 79 15 153/78 98 Room Air 06/28/16 12:26 98.2 85 20 148/77 98 Room Air 06/28/16 08:21 97.9 97 20 134/66 99 Room Air 06/28/16 06:54 95 18 Room Air 06/28/16 04:00 98 22 144/69 95 Nasal Cannula 98.2 06/28/16 01:26 79 18 100 Room Air 06/28/16 01:25 86 18 97 Room Air 06/28/16 00:00 97.5 103 20 119/55 96 Nasal Cannula 2.0 Intake and Output 06/27/16 06/28/16 19:00 07:00 Intake Total 1563.334 ml 470 ml Output Total 300 ml 1150 ml Balance 1263.334 ml -680 ml Intake Oral 900 ml 360 ml IV Total 663.334 ml 110 ml Output Urine Total 300 ml 1150 ml # Voids 2 # Bowel Movements 2 Objective HEENT: normocephalic Respiratory/Chest: chest wall non-tender, lungs clear Cardiovascular: normal peripheral pulses, normal rate Abdomen: normal bowel sounds, soft, non tender Extremities: no cyanosis, no clubbing Skin: no ulcers 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 Musculoskeletal: normal muscle bulk, Laboratory Tests 06/28/16 11:50: Vancomycin Level Trough 21.5H Current Medications Medications (Trade) Dose Ordered Sig/Pavel Route PRN Reason Start Time Stop Time Status Last Admin Dose Admin Acetaminophen (Tylenol) 650 mg Q4H PRN ORAL T>100.5 06/24/16 10:00 07/24/16 09:59 06/26/16 17:50 Al Hydroxide/Mg Hydroxide (Mylanta II) 30 ml Q6H PRN ORAL dyspepsia 06/24/16 10:00 07/24/16 09:59 Albuterol/ Ipratropium (DuoNeb 0.5-3(2.5)mg/3ml) 3 ml Q4H PRN HHN Shortness of Breath 06/24/16 10:00 06/29/16 09:59 06/28/16 01:24 Clopidogrel Bisulfate (Plavix) 75 mg DAILY ORAL 06/25/16 09:00 07/25/16 08:59 06/28/16 09:58 Dextrose (Dextrose 50%) STAT PRN IV Hypoglycemia 06/24/16 10:00 07/24/16 09:59 Diphenhydramine HCl (Benadryl) 25 mg Q8H PRN ORAL Itching 06/27/16 21:00 07/27/16 20:59 06/28/16 17:08 Insulin Aspart (NovoLOG) BEFORE MEALS AND HS SUBQ 06/24/16 12:00 07/24/16 11:59 06/28/16 17:10 Meropenem/Sodium Chloride (Merrem/Sodium Chloride) 110 ml @ 220 mls/hr Q8HR IVPB 06/27/16 11:00 07/02/16 10:59 06/28/16 21:42 Nitroglycerin (Ntg) 0.4 mg Q5M PRN SL Prn Chest Pain 06/24/16 10:00 07/24/16 09:59 Ondansetron HCl (Zofran) 4 mg Q6H PRN IVP Nausea & Vomiting 06/24/16 10:00 07/24/16 09:59 Polyethylene Glycol (Miralax) 17 gm DAILYPRN PRN ORAL Constipation 06/24/16 10:00 07/24/16 09:59 Temazepam (Restoril) 15 mg HSPRN PRN ORAL Insomnia 06/24/16 21:00 07/01/16 20:59 06/26/16 21:15 Vancomycin HCl 1 ea 1 ea DAILY PRN MISC Per rx protocol 06/24/16 20:15 07/24/16 20:14 DIONI TRIANA Jun 28, 2016 23:52
[2016-06-29] VITALS: BP 147/79
[2016-06-29 04:00] VITALS: BP 139/67
[2016-06-29] MEDS: Meropenem 1 GM in NS 110 ML IVPB SCH ×3 (04:56→21:19)
[2016-06-29 05:05] LABS: MEAN CORPUSCULAR HEMOGLOBIN 29.7 PG (27.0-31.0); MEAN CORPUSCULAR HGB CONC 32.4 G/DL (32.0-36.0); MEAN CORPUSCULAR VOLUME 92 FL (80-99); MEAN PLATELET VOLUME 6.8 FL (6.5-10.1); PLATELET COUNT 92 K/UL (150-450); RED BLOOD COUNT 3.25 M/UL (4.20-5.40); RED CELL DISTRIBUTION WIDTH 13.7 % (11.6-14.8); WHITE BLOOD COUNT 3.8 K/UL (4.8-10.8)
[2016-06-29] MEDS: NovoLOG Insulin Flexpen SUBQ SCH ×4 (05:55→21:00)
[2016-06-29 06:16] LABS: INR 1.2 (0.9-1.1); PROTHROMBIN TIME 12.7 SEC (9.30-11.50)
[2016-06-29 07:26] LABS: ALANINE AMINOTRANSFERASE 15 U/L (3-33); ALBUMIN/GLOBULIN RATIO 0.7 (1.0-2.7); ANION GAP 15 (5-15); ASPARTATE AMINO TRANSFERASE 52 U/L (5-40); CALCIUM 9.6 mg/dL (8.6-10.2); CARBON DIOXIDE 22 mEQ/L (20-30); CHLORIDE 103 mEQ/L (98-107); HEMOLYSIS 5; MAGNESIUM 1.4 mg/dL (1.7-2.5); PHOSPHORUS 1.8 mg/dL (2.5-4.8); SODIUM 140 mEQ/L (135-145); TOTAL PROTEIN 6.5 g/dL (6.6-8.7)
[2016-06-29 08:22] VITALS: BP 151/79
[2016-06-29] MEDS ORDERED: Vancomycin 1gm/D5W 275ml IVPB ONE ×2 (09:00)
[2016-06-29 09:55] LABS: BAND NEUTROPHILS % (MANUAL) 0 % (0-8); BASOPHILS % (MANUAL) 0 % (0-2); EOSINOPHILS % (MANUAL) 5 % (0-3); LYMPHOCYTES % (MANUAL) 48 % (20-45); NEUTROPHILS % (MANUAL) 41 % (45-75); PLATELET ESTIMATE DECREASED; PLATELET MORPHOLOGY NORMAL; TOTAL CELLS COUNTED 100
[2016-06-29 09:56] LABS: HYPOCHROMASIA 1+
[2016-06-29 11:29] VITALS: BP 131/71
--- NOTE | 2016-06-29 13:02 | Infectious Diseases Prog Note ---
Assessment/Plan Assessment/Plan A: E. coli UTI Bacteremia Cirrhosis Pancytopenia DM type II P: Continue Meropenem & Vancomycin will f/u cultures Subjective ROS Limited/Unobtainable: No Constitutional: Reports: no symptoms Respiratory: Reports: dry cough Cardiovascular: Reports: no symptoms Gastrointestinal/Abdominal: Reports: other - occasional pain Genitourinary: Reports: dysuria Allergies: Coded Allergies: PENICILLINS (Unverified Allergy, Unknown, 03/22/15) Objective Vital Signs Last 24 Hour Vital Signs Date Time Temp Pulse Resp B/P Pulse Ox O2 Delivery O2 Flow Rate FiO2 06/29/16 11:58 88 18 Room Air 06/29/16 11:29 98.0 87 20 131/71 95 Room Air 06/29/16 08:22 97.9 97 19 151/79 95 Room Air 06/29/16 04:00 97.6 70 18 139/67 100 Room Air 06/29/16 00:00 97.6 74 16 147/79 96 Room Air 06/28/16 20:00 97.9 86 15 150/81 93 Room Air 06/28/16 19:10 89 18 Room Air 06/28/16 16:18 97.7 79 15 153/78 98 Room Air Height (Feet): 5 Weight (Pounds): 211 General Appearance: no acute distress HEENT: mucous membranes moist Respiratory/Chest: lungs clear Cardiovascular: normal rate Abdomen: soft, non tender Genitourinary: other - Nunez catheter Extremities: no edema Neurologic/Psychiatric: alert, oriented x 3, responsive Microbiology Date/Time Source Procedure Growth Status 06/27/16 11:00 Blood Blood Culture - Preliminary NO GROWTH AFTER 24 HOURS Resulted 06/27/16 10:45 Blood Blood Culture - Preliminary NO GROWTH AFTER 24 HOURS Resulted Laboratory Tests Test 06/29/16 04:30 White Blood Count 3.8 K/UL (4.8-10.8) L Red Blood Count 3.25 M/UL (4.20-5.40) L Hemoglobin 9.6 G/DL (12.0-16.0) L Hematocrit 29.8 % (37.0-47.0) L Mean Corpuscular Volume 92 FL (80-99) Mean Corpuscular Hemoglobin 29.7 PG (27.0-31.0) Mean Corpuscular Hemoglobin Concent 32.4 G/DL (32.0-36.0) Red Cell Distribution Width 13.7 % (11.6-14.8) Platelet Count 92 K/UL (150-450) L Mean Platelet Volume 6.8 FL (6.5-10.1) Neutrophils (%) (Auto) % (45.0-75.0) Lymphocytes (%) (Auto) % (20.0-45.0) Monocytes (%) (Auto) % (1.0-10.0) Eosinophils (%) (Auto) % (0.0-3.0) Basophils (%) (Auto) % (0.0-2.0) Differential Total Cells Counted 100 Neutrophils % (Manual) 41 % (45-75) L Lymphocytes % (Manual) 48 % (20-45) H Monocytes % (Manual) 6 % (1-10) Eosinophils % (Manual) 5 % (0-3) H Basophils % (Manual) 0 % (0-2) Band Neutrophils 0 % (0-8) Platelet Estimate Decreased L Platelet Morphology Normal Hypochromasia 1+ Prothrombin Time 12.7 SEC (9.30-11.50) H Prothromb Time International Ratio 1.2 (0.9-1.1) H Activated Partial Thromboplast Time 32 SEC (23-33) Sodium Level 140 mEQ/L (135-145) Potassium Level 4.0 mEQ/L (3.4-4.9) Chloride Level 103 mEQ/L (98-107) Carbon Dioxide Level 22 mEQ/L (20-30) Anion Gap 15 (5-15) Blood Urea Nitrogen 10 mg/dL (7-23) Creatinine 1.0 mg/dL (0.5-0.9) H Estimat Glomerular Filtration Rate mL/min (>60) Glucose Level 100 mg/dL (74-106) Calcium Level 9.6 mg/dL (8.6-10.2) Phosphorus Level 1.8 mg/dL (2.5-4.8) L Magnesium Level 1.4 mg/dL (1.7-2.5) L Total Bilirubin 0.9 mg/dL (0.0-1.2) Aspartate Amino Transf (AST/SGOT) 52 U/L (5-40) H Alanine Aminotransferase (ALT/SGPT) 15 U/L (3-33) Alkaline Phosphatase 116 U/L (35-104) H Total Protein 6.5 g/dL (6.6-8.7) L Albumin 2.7 g/dL (3.5-5.2) L Globulin 3.8 g/dL Albumin/Globulin Ratio 0.7 (1.0-2.7) L Random Vancomycin Level 16.0 ug/mL Current Medications Medications (Trade) Dose Ordered Sig/Pavel Route PRN Reason Start Time Stop Time Status Last Admin Dose Admin Acetaminophen (Tylenol) 650 mg Q4H PRN ORAL T>100.5 06/24/16 10:00 07/24/16 09:59 06/26/16 17:50 Al Hydroxide/Mg Hydroxide (Mylanta II) 30 ml Q6H PRN ORAL dyspepsia 06/24/16 10:00 07/24/16 09:59 Clopidogrel Bisulfate (Plavix) 75 mg DAILY ORAL 06/25/16 09:00 07/25/16 08:59 06/29/16 08:54 Dextrose (Dextrose 50%) STAT PRN IV Hypoglycemia 06/24/16 10:00 07/24/16 09:59 Diphenhydramine HCl (Benadryl) 25 mg Q8H PRN ORAL Itching 06/27/16 21:00 07/27/16 20:59 06/28/16 17:08 Insulin Aspart (NovoLOG) BEFORE MEALS AND HS SUBQ 06/24/16 12:00 07/24/16 11:59 06/29/16 11:47 Meropenem/Sodium Chloride (Merrem/Sodium Chloride) 110 ml @ 220 mls/hr Q8HR IVPB 06/27/16 11:00 07/02/16 10:59 06/29/16 04:56 Nitroglycerin (Ntg) 0.4 mg Q5M PRN SL Prn Chest Pain 06/24/16 10:00 07/24/16 09:59 Ondansetron HCl (Zofran) 4 mg Q6H PRN IVP Nausea & Vomiting 06/24/16 10:00 07/24/16 09:59 06/29/16 03:59 Polyethylene Glycol (Miralax) 17 gm DAILYPRN PRN ORAL Constipation 06/24/16 10:00 07/24/16 09:59 Temazepam (Restoril) 15 mg HSPRN PRN ORAL Insomnia 06/24/16 21:00 07/01/16 20:59 06/26/16 21:15 Vancomycin HCl 1 ea 1 ea DAILY PRN MISC Per rx protocol 06/24/16 20:15 07/24/16 20:14 SUMMER BYRNES Jun 29, 2016 13:02
--- NOTE | 2016-06-29 15:17 | Cardiology Progress Note ---
Assessment/Plan Assessment/Plan bacteremia cirrhosis thrombocytopnia dm htn will arrang for clarissa will have base lien echo imn am d/w dr oseguera recetn egd neg [id number] Objective Last 24 Hour Vital Signs Date Time Temp Pulse Resp B/P Pulse Ox O2 Delivery O2 Flow Rate FiO2 06/29/16 11:58 88 18 Room Air 06/29/16 11:29 98.0 87 20 131/71 95 Room Air 06/29/16 08:22 97.9 97 19 151/79 95 Room Air 06/29/16 04:00 97.6 70 18 139/67 100 Room Air 06/29/16 00:00 97.6 74 16 147/79 96 Room Air 06/28/16 20:00 97.9 86 15 150/81 93 Room Air 06/28/16 19:10 89 18 Room Air 06/28/16 16:18 97.7 79 15 153/78 98 Room Air Intake and Output 06/28/16 06/29/16 19:00 07:00 Intake Total 420 ml 470 ml Output Total 500 ml 2050 ml Balance -80 ml -1580 ml Intake Oral 420 ml 360 ml IV Total 110 ml Output Urine Total 500 ml 2050 ml # Bowel Movements 3 1 Laboratory Tests Test 06/29/16 04:30 White Blood Count 3.8 K/UL (4.8-10.8) L Red Blood Count 3.25 M/UL (4.20-5.40) L Hemoglobin 9.6 G/DL (12.0-16.0) L Hematocrit 29.8 % (37.0-47.0) L Mean Corpuscular Volume 92 FL (80-99) Mean Corpuscular Hemoglobin 29.7 PG (27.0-31.0) Mean Corpuscular Hemoglobin Concent 32.4 G/DL (32.0-36.0) Red Cell Distribution Width 13.7 % (11.6-14.8) Platelet Count 92 K/UL (150-450) L Mean Platelet Volume 6.8 FL (6.5-10.1) Neutrophils (%) (Auto) % (45.0-75.0) Lymphocytes (%) (Auto) % (20.0-45.0) Monocytes (%) (Auto) % (1.0-10.0) Eosinophils (%) (Auto) % (0.0-3.0) Basophils (%) (Auto) % (0.0-2.0) Differential Total Cells Counted 100 Neutrophils % (Manual) 41 % (45-75) L Lymphocytes % (Manual) 48 % (20-45) H Monocytes % (Manual) 6 % (1-10) Eosinophils % (Manual) 5 % (0-3) H Basophils % (Manual) 0 % (0-2) Band Neutrophils 0 % (0-8) Platelet Estimate Decreased L Platelet Morphology Normal Hypochromasia 1+ Prothrombin Time 12.7 SEC (9.30-11.50) H Prothromb Time International Ratio 1.2 (0.9-1.1) H Activated Partial Thromboplast Time 32 SEC (23-33) Sodium Level 140 mEQ/L (135-145) Potassium Level 4.0 mEQ/L (3.4-4.9) Chloride Level 103 mEQ/L (98-107) Carbon Dioxide Level 22 mEQ/L (20-30) Anion Gap 15 (5-15) Blood Urea Nitrogen 10 mg/dL (7-23) Creatinine 1.0 mg/dL (0.5-0.9) H Estimat Glomerular Filtration Rate mL/min (>60) Glucose Level 100 mg/dL (74-106) Calcium Level 9.6 mg/dL (8.6-10.2) Phosphorus Level 1.8 mg/dL (2.5-4.8) L Magnesium Level 1.4 mg/dL (1.7-2.5) L Total Bilirubin 0.9 mg/dL (0.0-1.2) Aspartate Amino Transf (AST/SGOT) 52 U/L (5-40) H Alanine Aminotransferase (ALT/SGPT) 15 U/L (3-33) Alkaline Phosphatase 116 U/L (35-104) H Total Protein 6.5 g/dL (6.6-8.7) L Albumin 2.7 g/dL (3.5-5.2) L Globulin 3.8 g/dL Albumin/Globulin Ratio 0.7 (1.0-2.7) L Random Vancomycin Level 16.0 ug/mL Microbiology Date/Time Source Procedure Growth Status 06/27/16 11:00 Blood Blood Culture - Preliminary NO GROWTH AFTER 24 HOURS Resulted 06/27/16 10:45 Blood Blood Culture - Preliminary NO GROWTH AFTER 24 HOURS Resulted VAIBHAV MADRID Jun 29, 2016 15:17
--- NOTE | 2016-06-29 15:59 | General Progress Note ---
Assessment/Plan Assessment/Plan Assessment - DURANT - Cirrhosis - Anemia - debilitation Recommendations - push po - elevate HOB - Transfuse PRN - PPI - OK for NAM from GI standpoint Subjective Allergies: Coded Allergies: PENICILLINS (Unverified Allergy, Unknown, 03/22/15) Subjective above noted d/w cardiology patient with recent negative EGD needs NAM Objective Last 24 Hour Vital Signs Date Time Temp Pulse Resp B/P Pulse Ox O2 Delivery O2 Flow Rate FiO2 06/29/16 11:58 88 18 Room Air 06/29/16 11:29 98.0 87 20 131/71 95 Room Air 06/29/16 08:22 97.9 97 19 151/79 95 Room Air 06/29/16 04:00 97.6 70 18 139/67 100 Room Air 06/29/16 00:00 97.6 74 16 147/79 96 Room Air 06/28/16 20:00 97.9 86 15 150/81 93 Room Air 06/28/16 19:10 89 18 Room Air 06/28/16 16:18 97.7 79 15 153/78 98 Room Air Intake and Output 06/28/16 06/29/16 19:00 07:00 Intake Total 420 ml 470 ml Output Total 500 ml 2050 ml Balance -80 ml -1580 ml Intake Oral 420 ml 360 ml IV Total 110 ml Output Urine Total 500 ml 2050 ml # Bowel Movements 3 1 Laboratory Tests 06/29/16 04:30: White Blood Count 3.8L, Red Blood Count 3.25L, Hemoglobin 9.6L, Hematocrit 29.8L , Mean Corpuscular Volume 92, Mean Corpuscular Hemoglobin 29.7, Mean Corpuscular Hemoglobin Concent 32.4, Red Cell Distribution Width 13.7, Platelet Count 92L, Mean Platelet Volume 6.8, Neutrophils (%) (Auto) , Lymphocytes (%) ( Auto) , Monocytes (%) (Auto) , Eosinophils (%) (Auto) , Basophils (%) (Auto) , Differential Total Cells Counted 100, Neutrophils % (Manual) 41L, Lymphocytes % (Manual) 48H, Monocytes % (Manual) 6, Eosinophils % (Manual) 5H, Basophils % ( Manual) 0, Band Neutrophils 0, Platelet Estimate DecreasedL, Platelet Morphology Normal, Hypochromasia 1+, Prothrombin Time 12.7H, Prothromb Time International Ratio 1.2H, Activated Partial Thromboplast Time 32, Sodium Level 140, Potassium Level 4.0, Chloride Level 103, Carbon Dioxide Level 22, Anion Gap 15, Blood Urea Nitrogen 10, Creatinine 1.0H, Estimat Glomerular Filtration Rate , Glucose Level 100, Calcium Level 9.6, Phosphorus Level 1.8L, Magnesium Level 1.4L, Total Bilirubin 0.9, Aspartate Amino Transf (AST/SGOT) 52H, Alanine Aminotransferase (ALT/SGPT) 15, Alkaline Phosphatase 116H, Total Protein 6.5L, Albumin 2.7L, Globulin 3.8, Albumin/Globulin Ratio 0.7L, Random Vancomycin Level 16.0 Height (Feet): 5 Weight (Pounds): 211 Objective WDWN NCAT supple CTA RRR soft ND NT no edema KIERSTEN DAVIES Jun 29, 2016 15:59
[2016-06-29 16:00] VITALS: BP 144/74
[2016-06-29 19:00] VITALS: BP 152/74
--- NOTE | 2016-06-29 20:48 | Internal Med Progress Note ---
Subjective Physician Name Rl Tee Attending Physician Rl Tee MD Current Medications Medications (Trade) Dose Ordered Sig/Pavel Route PRN Reason Start Time Stop Time Status Last Admin Dose Admin Acetaminophen (Tylenol) 650 mg Q4H PRN ORAL T>100.5 06/24/16 10:00 07/24/16 09:59 06/26/16 17:50 Al Hydroxide/Mg Hydroxide (Mylanta II) 30 ml Q6H PRN ORAL dyspepsia 06/24/16 10:00 07/24/16 09:59 Clopidogrel Bisulfate (Plavix) 75 mg DAILY ORAL 06/25/16 09:00 07/25/16 08:59 06/29/16 08:54 Dextrose (Dextrose 50%) STAT PRN IV Hypoglycemia 06/24/16 10:00 07/24/16 09:59 Diphenhydramine HCl 25 mg 25 mg Q8H PRN ORAL Itching 06/27/16 21:00 07/27/16 20:59 06/28/16 17:08 Insulin Aspart (NovoLOG) BEFORE MEALS AND HS SUBQ 06/24/16 12:00 07/24/16 11:59 06/29/16 17:22 Magnesium Sulfate (Magnesium Sulfate 1gm/100ml) 100 ml @ 100 mls/hr Q1H IVPB 06/29/16 20:30 06/29/16 22:29 Meropenem/Sodium Chloride (Merrem/Sodium Chloride) 110 ml @ 220 mls/hr Q8HR IVPB 06/27/16 11:00 07/02/16 10:59 06/29/16 13:46 Nitroglycerin (Ntg) 0.4 mg Q5M PRN SL Prn Chest Pain 06/24/16 10:00 07/24/16 09:59 Ondansetron HCl (Zofran) 4 mg Q6H PRN IVP Nausea & Vomiting 06/24/16 10:00 07/24/16 09:59 06/29/16 03:59 Polyethylene Glycol (Miralax) 17 gm DAILYPRN PRN ORAL Constipation 06/24/16 10:00 07/24/16 09:59 Temazepam (Restoril) 15 mg HSPRN PRN ORAL Insomnia 06/24/16 21:00 07/01/16 20:59 06/26/16 21:15 Vancomycin HCl 1 ea 1 ea DAILY PRN MISC Per rx protocol 06/24/16 20:15 07/24/16 20:14 Allergies: Coded Allergies: PENICILLINS (Unverified Allergy, Unknown, 03/22/15) Subjective awake, alert, responsive, feeling much better Objective Last Vital Signs Date Time Temp Pulse Resp B/P Pulse Ox O2 Delivery O2 Flow Rate FiO2 06/29/16 19:00 98.1 87 20 152/74 95 Room Air 06/28/16 04:00 98.2 Laboratory Tests Test 06/29/16 04:30 White Blood Count 3.8 K/UL (4.8-10.8) L Red Blood Count 3.25 M/UL (4.20-5.40) L Hemoglobin 9.6 G/DL (12.0-16.0) L Hematocrit 29.8 % (37.0-47.0) L Mean Corpuscular Volume 92 FL (80-99) Mean Corpuscular Hemoglobin 29.7 PG (27.0-31.0) Mean Corpuscular Hemoglobin Concent 32.4 G/DL (32.0-36.0) Red Cell Distribution Width 13.7 % (11.6-14.8) Platelet Count 92 K/UL (150-450) L Mean Platelet Volume 6.8 FL (6.5-10.1) Neutrophils (%) (Auto) % (45.0-75.0) Lymphocytes (%) (Auto) % (20.0-45.0) Monocytes (%) (Auto) % (1.0-10.0) Eosinophils (%) (Auto) % (0.0-3.0) Basophils (%) (Auto) % (0.0-2.0) Differential Total Cells Counted 100 Neutrophils % (Manual) 41 % (45-75) L Lymphocytes % (Manual) 48 % (20-45) H Monocytes % (Manual) 6 % (1-10) Eosinophils % (Manual) 5 % (0-3) H Basophils % (Manual) 0 % (0-2) Band Neutrophils 0 % (0-8) Platelet Estimate Decreased L Platelet Morphology Normal Hypochromasia 1+ Prothrombin Time 12.7 SEC (9.30-11.50) H Prothromb Time International Ratio 1.2 (0.9-1.1) H Activated Partial Thromboplast Time 32 SEC (23-33) Sodium Level 140 mEQ/L (135-145) Potassium Level 4.0 mEQ/L (3.4-4.9) Chloride Level 103 mEQ/L (98-107) Carbon Dioxide Level 22 mEQ/L (20-30) Anion Gap 15 (5-15) Blood Urea Nitrogen 10 mg/dL (7-23) Creatinine 1.0 mg/dL (0.5-0.9) H Estimat Glomerular Filtration Rate mL/min (>60) Glucose Level 100 mg/dL (74-106) Calcium Level 9.6 mg/dL (8.6-10.2) Phosphorus Level 1.8 mg/dL (2.5-4.8) L Magnesium Level 1.4 mg/dL (1.7-2.5) L Total Bilirubin 0.9 mg/dL (0.0-1.2) Aspartate Amino Transf (AST/SGOT) 52 U/L (5-40) H Alanine Aminotransferase (ALT/SGPT) 15 U/L (3-33) Alkaline Phosphatase 116 U/L (35-104) H Total Protein 6.5 g/dL (6.6-8.7) L Albumin 2.7 g/dL (3.5-5.2) L Globulin 3.8 g/dL Albumin/Globulin Ratio 0.7 (1.0-2.7) L Random Vancomycin Level 16.0 ug/mL Microbiology Date/Time Source Procedure Growth Status 06/27/16 11:00 Blood Blood Culture - Preliminary NO GROWTH AFTER 24 HOURS Resulted 06/27/16 10:45 Blood Blood Culture - Preliminary NO GROWTH AFTER 24 HOURS Resulted Intake and Output 06/28/16 06/29/16 19:00 07:00 Intake Total 420 ml 470 ml Output Total 500 ml 2050 ml Balance -80 ml -1580 ml Intake Oral 420 ml 360 ml IV Total 110 ml Output Urine Total 500 ml 2050 ml # Bowel Movements 3 1 Objective GENERAL: The patient is a well-developed and well-nourished white female, in no apparent distress. HEENT: Eyes, pupils are equal and responsive to light and accommodation. Extraocular movements are intact. NECK: Supple without no lymphadenopathy. CHEST: Lungs are clear to auscultation bilaterally without wheezes or rales. CARDIOVASCULAR: Regular rate. S1 and S2 normal without murmurs, ABDOMEN: Soft, nontender, and nondistended. Positive bowel sounds. Morbid obesity. EXTREMITIES: Negative for clubbing, cyanosis, or edema. RECTAL: Refused. GENITAL: Refused. NEUROLOGIC: Cranial nerves II through XII are grossly intact without focal deficits. Motor strength is 5/5 bilaterally. Assessment/Plan Assessment/Plan ASSESSMENT: This is a test 76-year-old white female 1. Bacteremia with staph coag negative 2. ESBL E.coli Urinary tract infection. 3. Anemia. 4. Diabetes type 2. 5. Hypertension. 6. Obstructive sleep apnea. 7. Gastroesophageal reflux disease. 8. Hypercholesterolemia. 9. Cardiomyopathy. 10. Diabetic nephropathy. 11. Liver cirrhosis / DURANT. 12. Thrombocytopenia. TREATMENT: Abx: Vanco / meropenem Monitor Labs and cultures PT Mobility OOB to chair NAM R/O SBE cardiology consult with Rl Mandel MD Jun 29, 2016 20:48
--- NOTE | 2016-06-29 23:18 | Pulmonology Progress Note ---
Assessment/Plan Problems: (1) Sepsis (2) Anemia (3) COPD (chronic obstructive pulmonary disease) with emphysema (4) Sleep apnea (5) Cirrhosis (6) Obesity (7) DM (diabetes mellitus) Assessment/Plan no new complains line has been removed prbc one unit today GI and ID follows cardio ordered NAM continue antibiotics check cultures tolerating diet sliding scle all notes, meds labs reviewed Subjective ROS Limited/Unobtainable: Yes Interval Events: no new complains Allergies: Coded Allergies: PENICILLINS (Unverified Allergy, Unknown, 03/22/15) Objective Last 24 Hour Vital Signs Date Time Temp Pulse Resp B/P Pulse Ox O2 Delivery O2 Flow Rate FiO2 06/29/16 19:00 98.1 87 20 152/74 95 Room Air 06/29/16 16:00 97.9 87 20 144/74 95 Room Air 06/29/16 11:58 88 18 Room Air 06/29/16 11:29 98.0 87 20 131/71 95 Room Air 06/29/16 08:22 97.9 97 19 151/79 95 Room Air 06/29/16 04:00 97.6 70 18 139/67 100 Room Air 06/29/16 00:00 97.6 74 16 147/79 96 Room Air Intake and Output 06/28/16 06/29/16 19:00 07:00 Intake Total 420 ml 470 ml Output Total 500 ml 2050 ml Balance -80 ml -1580 ml Intake Oral 420 ml 360 ml IV Total 110 ml Output Urine Total 500 ml 2050 ml # Bowel Movements 3 1 Objective HEENT: normocephalic Respiratory/Chest: chest wall non-tender, lungs clear Cardiovascular: normal peripheral pulses, normal rate Abdomen: normal bowel sounds, soft, non tender Extremities: no cyanosis, no clubbing Skin: no ulcers Neurologic/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: 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 Musculoskeletal: normal muscle bulk, Microbiology Date/Time Source Procedure Growth Status 06/27/16 11:00 Blood Blood Culture - Preliminary NO GROWTH AFTER 24 HOURS Resulted 06/27/16 10:45 Blood Blood Culture - Preliminary NO GROWTH AFTER 24 HOURS Resulted Laboratory Tests 06/29/16 04:30: White Blood Count 3.8L, Red Blood Count 3.25L, Hemoglobin 9.6L, Hematocrit 29.8L , Mean Corpuscular Volume 92, Mean Corpuscular Hemoglobin 29.7, Mean Corpuscular Hemoglobin Concent 32.4, Red Cell Distribution Width 13.7, Platelet Count 92L, Mean Platelet Volume 6.8, Neutrophils (%) (Auto) , Lymphocytes (%) ( Auto) , Monocytes (%) (Auto) , Eosinophils (%) (Auto) , Basophils (%) (Auto) , Differential Total Cells Counted 100, Neutrophils % (Manual) 41L, Lymphocytes % (Manual) 48H, Monocytes % (Manual) 6, Eosinophils % (Manual) 5H, Basophils % ( Manual) 0, Band Neutrophils 0, Platelet Estimate DecreasedL, Platelet Morphology Normal, Hypochromasia 1+, Prothrombin Time 12.7H, Prothromb Time International Ratio 1.2H, Activated Partial Thromboplast Time 32, Sodium Level 140, Potassium Level 4.0, Chloride Level 103, Carbon Dioxide Level 22, Anion Gap 15, Blood Urea Nitrogen 10, Creatinine 1.0H, Estimat Glomerular Filtration Rate , Glucose Level 100, Calcium Level 9.6, Phosphorus Level 1.8L, Magnesium Level 1.4L, Total Bilirubin 0.9, Aspartate Amino Transf (AST/SGOT) 52H, Alanine Aminotransferase (ALT/SGPT) 15, Alkaline Phosphatase 116H, Total Protein 6.5L, Albumin 2.7L, Globulin 3.8, Albumin/Globulin Ratio 0.7L, Random Vancomycin Level 16.0 Current Medications Medications (Trade) Dose Ordered Sig/Pavel Route PRN Reason Start Time Stop Time Status Last Admin Dose Admin Acetaminophen (Tylenol) 650 mg Q4H PRN ORAL T>100.5 06/24/16 10:00 07/24/16 09:59 06/26/16 17:50 Al Hydroxide/Mg Hydroxide (Mylanta II) 30 ml Q6H PRN ORAL dyspepsia 06/24/16 10:00 07/24/16 09:59 Clopidogrel Bisulfate (Plavix) 75 mg DAILY ORAL 06/25/16 09:00 07/25/16 08:59 06/29/16 08:54 Dextrose (Dextrose 50%) STAT PRN IV Hypoglycemia 06/24/16 10:00 07/24/16 09:59 Diphenhydramine HCl (Benadryl) 25 mg Q8H PRN ORAL Itching 06/27/16 21:00 07/27/16 20:59 06/29/16 21:19 Insulin Aspart (NovoLOG) BEFORE MEALS AND HS SUBQ 06/24/16 12:00 07/24/16 11:59 06/29/16 17:22 Meropenem/Sodium Chloride (Merrem/Sodium Chloride) 110 ml @ 220 mls/hr Q8HR IVPB 06/27/16 11:00 07/02/16 10:59 06/29/16 21:19 Nitroglycerin (Ntg) 0.4 mg Q5M PRN SL Prn Chest Pain 06/24/16 10:00 07/24/16 09:59 Ondansetron HCl (Zofran) 4 mg Q6H PRN IVP Nausea & Vomiting 06/24/16 10:00 07/24/16 09:59 06/29/16 03:59 Polyethylene Glycol (Miralax) 17 gm DAILYPRN PRN ORAL Constipation 06/24/16 10:00 07/24/16 09:59 Temazepam (Restoril) 15 mg HSPRN PRN ORAL Insomnia 06/24/16 21:00 07/01/16 20:59 06/26/16 21:15 Vancomycin HCl 1 ea 1 ea DAILY PRN MISC Per rx protocol 06/24/16 20:15 07/24/16 20:14 DIONI TRIANA Jun 29, 2016 23:18
[2016-06-30] VITALS: BP 141/71
[2016-06-30 04:00] VITALS: BP 138/66
[2016-06-30] MEDS: Meropenem 1 GM in NS 110 ML IVPB SCH ×3 (05:05→20:49)
[2016-06-30] MEDS: NovoLOG Insulin Flexpen SUBQ SCH ×4 (06:02→20:13)
--- NOTE | 2016-06-30 07:08 | Consultation ---
DATE OF CONSULTATION: CARDIOLOGY CONSULTATION REFERRING PHYSICIAN: Rl Tee M.D. REASON FOR REFERRAL: Bacteremia. HISTORY OF PRESENT ILLNESS: This is an elderly female patient with multiple medical problems. The patient has had a recent urinary tract infection with Staph aureus and now has bacteremia with Staph aureus and the concern about the possibility of cardiac involvement led to this evaluation. The patient does not have any chest pain at this time. She does occasionally have some shortness of breath when she lies down and she uses one pillow at night. There are no palpitations except on occasion. She does not really stand or walk. She does get up and can sit up in a chair. She occasionally gets dizzy when she does that, but otherwise she is not very active at all. PAST MEDICAL HISTORY: Extensive and includes diabetes mellitus, hypertension, obstructive sleep apnea, gastroesophageal reflux disease, hypercholesterolemia, cardiomyopathy, diabetic retinopathy, liver cirrhosis, status post gastrostomy tube placement and subsequent removal. The patient recently had endoscopy on 06/13/2016 and according to my discussion with Dr. Torres that was negative. No varices were noted. The patient is allergic to penicillin. SOCIAL HISTORY: She has a remote history of smoking 50 years ago. Does not drink. She lives in a convalescent facility. REVIEW OF SYSTEMS: Gastrointestinal: She does have some heartburn symptoms. Genitourinary: Negative. Pulmonary: Occasional coughing and wheezing. Constitutional: No fevers. No chills. Neurologic: Negative. PHYSICAL EXAMINATION: GENERAL: Shows a morbidly obese elderly female, in no apparent distress. VITAL SIGNS: Blood pressure 131/71 with a heart rate of 87, and temperature 98.0 degrees. HEENT: Unremarkable. NECK: Supple. No jugular venous distention. No abdominojugular reflux noted. LUNGS: Clear to auscultation and percussion. CARDIAC EXAMINATION: S1 is normal. S2 is normal. Regular rate and rhythm. No heaves. No thrills. No gallops noted. ABDOMEN: Soft and nontender. Positive bowel sounds. Obese. EXTREMITIES: There is no edema, clubbing, or cyanosis. NEUROLOGICAL: She is awake, alert, responsive, and in no apparent respiratory distress. LABORATORY VALUES: White blood count of 3.8, hemoglobin 9.6, and platelet count of 92,000, 41 polys, 48 lymphocytes. Sodium is 140, potassium 4.0, chloride 103, bicarbonate 22, BUN of 10, creatinine 1.0, and glucose of above 100. Magnesium 1.4 and phosphorus of 1.8. AST and ALT 52 and 15. Alkaline phosphatase of 115 and albumin of 2.7. INR is 1.2. PTT of 32. Urinalysis is 20 to 30. WBC 5 to 10 RBCs. Repeat blood cultures are negative at 24 hours. Prior blood cultures also negative after four days on 06/24/2016. However, she did have some blood cultures on 06/24/2016 that was positive for coag negative staph. Does have urinary tract infection. She has had prior coag negative staph in the blood as well on prior occasions back in May as well. ASSESSMENT AND PLAN: 1. Recurrent bacteremia. 2. Urinary tract infection. 3. Cirrhosis. 4. Thrombocytopenia. 5. Anemia. 6. Diabetes mellitus. 7. Hypertension. 8. Obstructive pulmonary disease. 9. Gastroesophageal reflux disease. 10. Hyperlipidemia. 11. Diabetic retinopathy. 12. Her last echocardiogram here was in September of 2015. At that time hyperdynamic LV systolic function was noted. She has actually had another echocardiogram in 2014, which also showed ejection fraction of 70%. 13. The patient was seen in cardiac consultation. The patient's case was discussed with Dr. Torres who has done a recent endoscopy. No contraindications at that time was noted. The patient really does not have new symptoms gastrointestinal coleman. I do agree with the transesophageal echocardiogram and multiple coag-negative staph blood cultures that have been obtained. I briefly discussed the case with the patient and we will try to arrange for the NAM over the next couple of days. Eduardo Martin M.D. DR: ANUJA JOB#: [id number] CC:
[2016-06-30 08:00] VITALS: BP 147/84
--- NOTE | 2016-06-30 09:50 | Infectious Diseases Prog Note ---
Assessment/Plan Assessment/Plan ASSESSMENT: 76 y/o female with: // Fever , SP // probable PICC infection // CoNS bacteremia : recurrent ro SBE hx of recent CoNS Bacteremia x 2 // Recurrent complicated ESBL(+) E.coli + UTI ( pt has dysuria ) - - CT A/P 09/2015: 9 x 4 mm left proximal ureteral stone with mild left hydronephrosis. // Multiple superficial decubiti POA, not grossly infected // Afebrile without leukocytosis // CKD3 // Hypercalcemia // DM2 // Obesity // MRSA, VRE colonized // PCN allergy - tolerates carbapenems // Full Code PLAN: - cont pt on Vanco d# 6 and Merrem d# 4 / ( 06/26 SP Cefepime d# 3 ) ( 06/11 SP IV vancomycin, meropenem d# 3 ) - f/u cultures ( Bl ) repeat - monitor CBC, temperatures - monitor BMP - NAM ( DW PCP ) to Ro SBE Subjective Constitutional: Denies: anorexia, chills, drenching sweats, fatigue, fever, no symptoms, other Allergies: Coded Allergies: PENICILLINS (Unverified Allergy, Unknown, 03/22/15) Objective Vital Signs Last 24 Hour Vital Signs Date Time Temp Pulse Resp B/P Pulse Ox O2 Delivery O2 Flow Rate FiO2 06/30/16 08:00 98.2 97 20 147/84 96 Room Air 06/30/16 04:00 97.9 89 20 138/66 96 Room Air 06/30/16 00:00 98.4 93 20 141/71 97 Room Air 06/29/16 19:00 98.1 87 20 152/74 95 Room Air 06/29/16 16:00 97.9 87 20 144/74 95 Room Air 06/29/16 11:58 88 18 Room Air 06/29/16 11:29 98.0 87 20 131/71 95 Room Air Height (Feet): 5 Weight (Pounds): 211 HEENT: anicteric Respiratory/Chest: no respiratory distress Cardiovascular: normal rate Abdomen: non distended Microbiology Date/Time Source Procedure Growth Status 06/27/16 11:00 Blood Blood Culture - Preliminary NO GROWTH AFTER 48 HOURS Resulted 06/27/16 10:45 Blood Blood Culture - Preliminary NO GROWTH AFTER 48 HOURS Resulted Current Medications Medications (Trade) Dose Ordered Sig/Pavel Route PRN Reason Start Time Stop Time Status Last Admin Dose Admin Acetaminophen (Tylenol) 650 mg Q4H PRN ORAL T>100.5 06/24/16 10:00 07/24/16 09:59 06/26/16 17:50 Al Hydroxide/Mg Hydroxide (Mylanta II) 30 ml Q6H PRN ORAL dyspepsia 06/24/16 10:00 07/24/16 09:59 Clopidogrel Bisulfate (Plavix) 75 mg DAILY ORAL 06/25/16 09:00 07/25/16 08:59 06/30/16 09:17 Dextrose (Dextrose 50%) STAT PRN IV Hypoglycemia 06/24/16 10:00 07/24/16 09:59 Diphenhydramine HCl (Benadryl) 25 mg Q8H PRN ORAL Itching 06/27/16 21:00 07/27/16 20:59 06/29/16 21:19 Insulin Aspart (NovoLOG) BEFORE MEALS AND HS SUBQ 06/24/16 12:00 07/24/16 11:59 06/29/16 17:22 Meropenem/Sodium Chloride (Merrem/Sodium Chloride) 110 ml @ 220 mls/hr Q8HR IVPB 06/27/16 11:00 07/02/16 10:59 06/30/16 05:05 Nitroglycerin (Ntg) 0.4 mg Q5M PRN SL Prn Chest Pain 06/24/16 10:00 07/24/16 09:59 Ondansetron HCl (Zofran) 4 mg Q6H PRN IVP Nausea & Vomiting 06/24/16 10:00 07/24/16 09:59 06/30/16 01:02 Polyethylene Glycol (Miralax) 17 gm DAILYPRN PRN ORAL Constipation 06/24/16 10:00 07/24/16 09:59 Temazepam (Restoril) 15 mg HSPRN PRN ORAL Insomnia 06/24/16 21:00 07/01/16 20:59 06/26/16 21:15 Vancomycin HCl 1 ea 1 ea DAILY PRN MISC Per rx protocol 06/24/16 20:15 07/24/16 20:14 LYLA ROJAS M.D. Jun 30, 2016 09:50
[2016-06-30 11:30] VITALS: BP 147/77
--- NOTE | 2016-06-30 11:45 | Internal Med Progress Note ---
Subjective Date of Service: Jun 30, 2016 Physician Name Jed Pond Attending Physician Rl Tee MD Current Medications Medications (Trade) Dose Ordered Sig/Pavel Route PRN Reason Start Time Stop Time Status Last Admin Dose Admin Acetaminophen (Tylenol) 650 mg Q4H PRN ORAL T>100.5 06/24/16 10:00 07/24/16 09:59 06/26/16 17:50 Al Hydroxide/Mg Hydroxide (Mylanta II) 30 ml Q6H PRN ORAL dyspepsia 06/24/16 10:00 07/24/16 09:59 Clopidogrel Bisulfate (Plavix) 75 mg DAILY ORAL 06/25/16 09:00 07/25/16 08:59 06/30/16 09:17 Dextrose (Dextrose 50%) STAT PRN IV Hypoglycemia 06/24/16 10:00 07/24/16 09:59 Diphenhydramine HCl (Benadryl) 25 mg Q8H PRN ORAL Itching 06/27/16 21:00 07/27/16 20:59 06/29/16 21:19 Insulin Aspart (NovoLOG) BEFORE MEALS AND HS SUBQ 06/24/16 12:00 07/24/16 11:59 06/29/16 17:22 Meropenem/Sodium Chloride (Merrem/Sodium Chloride) 110 ml @ 220 mls/hr Q8HR IVPB 06/27/16 11:00 07/02/16 10:59 06/30/16 05:05 Nitroglycerin (Ntg) 0.4 mg Q5M PRN SL Prn Chest Pain 06/24/16 10:00 07/24/16 09:59 Ondansetron HCl (Zofran) 4 mg Q6H PRN IVP Nausea & Vomiting 06/24/16 10:00 07/24/16 09:59 06/30/16 01:02 Polyethylene Glycol (Miralax) 17 gm DAILYPRN PRN ORAL Constipation 06/24/16 10:00 07/24/16 09:59 Temazepam (Restoril) 15 mg HSPRN PRN ORAL Insomnia 06/24/16 21:00 07/01/16 20:59 06/26/16 21:15 Vancomycin HCl 1 ea 1 ea DAILY PRN MISC Per rx protocol 06/24/16 20:15 4/6/17 20:14 Allergies: Coded Allergies: PENICILLINS (Unverified Allergy, Unknown, 03/22/15) ROS Limited/Unobtainable: No Constitutional: Reports: no symptoms HEENT: Reports: no symptoms Cardiovascular: Reports: no symptoms Respiratory: Reports: no symptoms Gastrointestinal/Abdominal: Reports: no symptoms Genitourinary: Reports: no symptoms Neurologic/Psychiatric: Reports: no symptoms Subjective 76 YO F admitted with fever, now UTI and sepsis. Cover for Int Med-Dr Tee. ESBL E. Coli UTI. Coag neg staph Sepsis - Await transesophageal echocardiogram to rule out spontaneous bacterial endocarditis. Objective Last Vital Signs Date Time Temp Pulse Resp B/P Pulse Ox O2 Delivery O2 Flow Rate FiO2 06/30/16 11:30 98.0 87 20 147/77 96 Room Air 06/28/16 04:00 98.2 Intake and Output 06/29/16 06/30/16 19:00 07:00 Intake Total 560 ml 350 ml Output Total 300 ml 1300 ml Balance 260 ml -950 ml Intake Oral 450 ml 240 ml IV Total 110 ml 110 ml Output Urine Total 300 ml 1300 ml # Bowel Movements 1 Objective General Appearance: WD/WN, alert, obese EENT: PERRL/EOMI, normal ENT inspection Neck: non-tender, normal alignment, supple Cardiovascular: normal peripheral pulses, normal rate, regular rhythm, no gallop/murmur, no JVD Respiratory/Chest: chest wall non-tender, lungs clear, normal breath sounds, no respiratory distress, no accessory muscle use Abdomen: normal bowel sounds, non tender, soft, no organomegaly, no mass Extremities: normal range of motion 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 (2) UTI (urinary tract infection) Assessment & Plan: ESBL E. Coli. Continue meropenem and vanco. See ID note. (3) Sepsis Assessment & Plan: Coag neg staph. See ID note. Cont vanco and meropenem. Await transesophageal echocardiogram to rule out spontaneous bacterial peritonitis. (4) Anemia (5) Fever (6) Diabetes mellitus Assessment & Plan: Continue novolog sliding scale. (7) Sleep apnea (8) Hypertension (9) GERD (gastroesophageal reflux disease) (10) Hypercholesteremia (11) Cardiomegaly (12) Cirrhosis (13) Elevated liver enzymes Assessment & Plan: See GI note. Status: not improved JED POND Jun 30, 2016 11:45
[2016-06-30 16:00] VITALS: BP 136/74
--- NOTE | 2016-06-30 17:09 | Pulmonology Progress Note ---
Assessment/Plan Problems: (1) Sepsis (2) Anemia (3) COPD (chronic obstructive pulmonary disease) with emphysema (4) Sleep apnea (5) Cirrhosis (6) Obesity (7) DM (diabetes mellitus) Assessment/Plan NAM pending h/h stable afebrile GI and ID follows on Vancomycin and meropenem continue antibiotics check cultures tolerating diet sliding scle all notes, meds labs reviewed Subjective ROS Limited/Unobtainable: No Interval Events: doing better Allergies: Coded Allergies: PENICILLINS (Unverified Allergy, Unknown, 03/22/15) Objective Last 24 Hour Vital Signs Date Time Temp Pulse Resp B/P Pulse Ox O2 Delivery O2 Flow Rate FiO2 06/30/16 16:00 98.1 92 18 136/74 97 Room Air 06/30/16 11:30 98.0 87 20 147/77 96 Room Air 06/30/16 08:00 98.2 97 20 147/84 96 Room Air 06/30/16 04:00 97.9 89 20 138/66 96 Room Air 06/30/16 00:00 98.4 93 20 141/71 97 Room Air 06/29/16 19:00 98.1 87 20 152/74 95 Room Air Intake and Output 06/29/16 06/30/16 19:00 07:00 Intake Total 560 ml 350 ml Output Total 300 ml 1300 ml Balance 260 ml -950 ml Intake Oral 450 ml 240 ml IV Total 110 ml 110 ml Output Urine Total 300 ml 1300 ml # Bowel Movements 1 Objective HEENT: normocephalic Respiratory/Chest: chest wall non-tender, lungs clear Cardiovascular: normal peripheral pulses, normal rate Abdomen: normal bowel sounds, soft, non tender Extremities: no cyanosis, no clubbing Skin: no ulcers Neurologic/Psychiatric: forcer maker II-XII grossly normal Musculoskeletal: normal muscle bulk, Current Medications Medications (Trade) Dose Ordered Sig/Pavel Route PRN Reason Start Time Stop Time Status Last Admin Dose Admin Acetaminophen (Tylenol) 650 mg Q4H PRN ORAL T>100.5 06/24/16 10:00 07/24/16 09:59 06/26/16 17:50 Al Hydroxide/Mg Hydroxide (Mylanta II) 30 ml Q6H PRN ORAL dyspepsia 06/24/16 10:00 07/24/16 09:59 Clopidogrel Bisulfate (Plavix) 75 mg DAILY ORAL 06/25/16 09:00 07/25/16 08:59 06/30/16 09:17 Dextrose (Dextrose 50%) STAT PRN IV Hypoglycemia 06/24/16 10:00 07/24/16 09:59 Diphenhydramine HCl (Benadryl) 25 mg Q8H PRN ORAL Itching 06/27/16 21:00 07/27/16 20:59 06/29/16 21:19 Insulin Aspart (NovoLOG) BEFORE MEALS AND HS SUBQ 06/24/16 12:00 07/24/16 11:59 06/30/16 12:29 Meropenem/Sodium Chloride (Merrem/Sodium Chloride) 110 ml @ 220 mls/hr Q8HR IVPB 06/27/16 11:00 07/02/16 10:59 06/30/16 14:45 Nitroglycerin (Ntg) 0.4 mg Q5M PRN SL Prn Chest Pain 06/24/16 10:00 07/24/16 09:59 Ondansetron HCl (Zofran) 4 mg Q6H PRN IVP Nausea & Vomiting 06/24/16 10:00 07/24/16 09:59 06/30/16 01:02 Polyethylene Glycol (Miralax) 17 gm DAILYPRN PRN ORAL Constipation 06/24/16 10:00 07/24/16 09:59 Temazepam (Restoril) 15 mg HSPRN PRN ORAL Insomnia 06/24/16 21:00 07/01/16 20:59 06/26/16 21:15 Vancomycin HCl 1 ea 1 ea DAILY PRN MISC Per rx protocol 06/24/16 20:15 07/24/16 20:14 DIONI TRIANA Jun 30, 2016 17:09
[2016-06-30] MEDS ORDERED: NS 275ml ONE (17:42)
[2016-06-30] MEDS ORDERED: Tubing IV Secondary IV ONE (17:42)
[2016-06-30 19:00] VITALS: BP 144/77
--- NOTE | 2016-06-30 20:36 | Cardiology Progress Note ---
Assessment/Plan Assessment/Plan bacteremia cirrhosis thrombocytopnia dm htn clarissa in am risks of clarissa d/w pt npo p md for clarissa Subjective Cardiovascular: Denies: chest pain Gastrointestinal/Abdominal: Denies: abdominal pain Genitourinary: Denies: burning Objective Last 24 Hour Vital Signs Date Time Temp Pulse Resp B/P Pulse Ox O2 Delivery O2 Flow Rate FiO2 06/30/16 19:00 98.2 90 18 144/77 95 Room Air 06/30/16 16:00 98.1 92 18 136/74 97 Room Air 06/30/16 11:30 98.0 87 20 147/77 96 Room Air 06/30/16 08:00 98.2 97 20 147/84 96 Room Air 06/30/16 04:00 97.9 89 20 138/66 96 Room Air 06/30/16 00:00 98.4 93 20 141/71 97 Room Air General Appearance: no apparent distress, alert Cardiovascular: normal rate, regular rhythm Respiratory/Chest: lungs clear, normal breath sounds Abdomen: normal bowel sounds, non tender, soft Extremities: no swelling Intake and Output 06/29/16 06/30/16 19:00 07:00 Intake Total 560 ml 350 ml Output Total 300 ml 1300 ml Balance 260 ml -950 ml Intake Oral 450 ml 240 ml IV Total 110 ml 110 ml Output Urine Total 300 ml 1300 ml # Bowel Movements 1 VAIBHAV MADRID Jun 30, 2016 20:36
--- NOTE | 2016-06-30 21:58 | General Progress Note ---
Assessment/Plan Assessment/Plan Assessment - DURANT - Cirrhosis - Anemia - debilitation Recommendations - push po - elevate HOB - Transfuse PRN - PPI - OK for NAM from GI standpoint Subjective Allergies: Coded Allergies: PENICILLINS (Unverified Allergy, Unknown, 03/22/15) Subjective Feel OK for NAM in am no abd pain tolerating PO Objective Last 24 Hour Vital Signs Date Time Temp Pulse Resp B/P Pulse Ox O2 Delivery O2 Flow Rate FiO2 06/30/16 19:00 98.2 90 18 144/77 95 Room Air 06/30/16 16:00 98.1 92 18 136/74 97 Room Air 06/30/16 11:30 98.0 87 20 147/77 96 Room Air 06/30/16 08:00 98.2 97 20 147/84 96 Room Air 06/30/16 04:00 97.9 89 20 138/66 96 Room Air 06/30/16 00:00 98.4 93 20 141/71 97 Room Air Intake and Output 06/29/16 06/30/16 19:00 07:00 Intake Total 560 ml 350 ml Output Total 300 ml 1300 ml Balance 260 ml -950 ml Intake Oral 450 ml 240 ml IV Total 110 ml 110 ml Output Urine Total 300 ml 1300 ml # Bowel Movements 1 Height (Feet): 5 Weight (Pounds): 211 Objective WDWN NCAT supple CTA RRR soft ND NT no edema KIERSTEN DAVIES Jun 30, 2016 21:58
[2016-07-01] VITALS (10 sets, daily range): BP systolic 79–156; BP diastolic 49–83
[2016-07-01] MEDS: Meropenem 1 GM in NS 110 ML IVPB SCH ×2 (05:04→14:32)
[2016-07-01] MEDS: NovoLOG Insulin Flexpen SUBQ SCH ×4 (06:09→21:48)
[2016-07-01 08:41] LABS: BASOPHILS % (AUTO) 0.9 % (0.0-2.0); EOSINOPHILS % (AUTO) 9.4 % (0.0-3.0); LYMPHOCYTES % (AUTO) 31.7 % (20.0-45.0); MEAN CORPUSCULAR HEMOGLOBIN 29.1 PG (27.0-31.0); MEAN CORPUSCULAR HGB CONC 31.3 G/DL (32.0-36.0); MEAN CORPUSCULAR VOLUME 93 FL (80-99); MEAN PLATELET VOLUME 6.6 FL (6.5-10.1); MONOCYTES % (AUTO) 6.7 % (1.0-10.0); NEUTROPHILS % (AUTO) 51.3 % (45.0-75.0); PLATELET COUNT 133 K/UL (150-450); RED BLOOD COUNT 3.55 M/UL (4.20-5.40); RED CELL DISTRIBUTION WIDTH 14.3 % (11.6-14.8); WHITE BLOOD COUNT 4.9 K/UL (4.8-10.8)
[2016-07-01] MEDS ORDERED: Propofol 10mg/ml 20ml IV ONE (08:45)
[2016-07-01] MEDS ORDERED: Lidocaine 1% MPF 10mg/ml 5ml ONE (08:45)
[2016-07-01 08:54] LABS: ANION GAP 12 (5-15); CALCIUM 9.8 mg/dL (8.6-10.2); CARBON DIOXIDE 25 mEQ/L (20-30); CHLORIDE 104 mEQ/L (98-107); HEMOLYSIS 2; SODIUM 141 mEQ/L (135-145)
--- NOTE | 2016-07-01 09:07 | Pre-Procedure Note/Attestation ---
Pre-Procedure Note/Attestation Complete Prior to Procedure Procedure Narrative: clarissa Indications for Procedure Pre-Operative Diagnosis: bacteremia Attestation I attest that I discussed the nature of the procedure; its benefits; risks and complications; and alternatives (and the risks and benefits of such alternatives ), prior to the procedure, with the patient (or the patient's legal customer counter representative). I attest that, if there was a reasonable possibility of needing a blood transfusion, the patient (or the patient's legal customer counter representative) was given the [facility] standardized written summary, pursuant to the Aurelio Jimbo Blood Safety Act ([place] Health and Safety Code # 1645, as amended). I attest that I re-evaluated the patient just prior to the surgery and that there has been no change in the patient's H&P, except as documented below: VAIBHAV MADRID Jul 01, 2016 09:07
--- NOTE | 2016-07-01 09:08 | Cardiology Progress Note ---
Assessment/Plan Assessment/Plan bacteremia cirrhosis thrombocytopnia dm htn clarissa risks of clarissa d/w pts dtrviccki over the phone d/w anesthesia Subjective ROS Limited/Unobtainable: Yes Subjective drowsey Objective Last 24 Hour Vital Signs Date Time Temp Pulse Resp B/P Pulse Ox O2 Delivery O2 Flow Rate FiO2 07/01/16 08:05 97.5 87 15 130/71 99 Room Air 07/01/16 04:00 97.8 86 20 132/73 97 Room Air 07/01/16 00:00 98.2 82 20 130/67 96 Room Air 06/30/16 19:00 98.2 90 18 144/77 95 Room Air 06/30/16 16:00 98.1 92 18 136/74 97 Room Air 06/30/16 11:30 98.0 87 20 147/77 96 Room Air General Appearance: no apparent distress Neck: supple Cardiovascular: normal rate, regular rhythm Respiratory/Chest: crackles/rales Abdomen: normal bowel sounds, non tender, soft Extremities: no swelling Intake and Output 06/30/16 07/01/16 19:00 07:00 Intake Total 400 ml 480 ml Output Total 500 ml 1050 ml Balance -100 ml -570 ml Intake Oral 400 ml 480 ml Output Urine Total 500 ml 1050 ml Laboratory Tests Test 07/01/16 08:20 White Blood Count 4.9 K/UL (4.8-10.8) Red Blood Count 3.55 M/UL (4.20-5.40) L Hemoglobin 10.3 G/DL (12.0-16.0) L Hematocrit 32.9 % (37.0-47.0) L Mean Corpuscular Volume 93 FL (80-99) Mean Corpuscular Hemoglobin 29.1 PG (27.0-31.0) Mean Corpuscular Hemoglobin Concent 31.3 G/DL (32.0-36.0) L Red Cell Distribution Width 14.3 % (11.6-14.8) Platelet Count 133 K/UL (150-450) L Mean Platelet Volume 6.6 FL (6.5-10.1) Neutrophils (%) (Auto) 51.3 % (45.0-75.0) Lymphocytes (%) (Auto) 31.7 % (20.0-45.0) Monocytes (%) (Auto) 6.7 % (1.0-10.0) Eosinophils (%) (Auto) 9.4 % (0.0-3.0) H Basophils (%) (Auto) 0.9 % (0.0-2.0) Sodium Level 141 mEQ/L (135-145) Potassium Level 4.0 mEQ/L (3.4-4.9) Chloride Level 104 mEQ/L (98-107) Carbon Dioxide Level 25 mEQ/L (20-30) Anion Gap 12 (5-15) Blood Urea Nitrogen 9 mg/dL (7-23) Creatinine 1.0 mg/dL (0.5-0.9) H Estimat Glomerular Filtration Rate mL/min (>60) Glucose Level 110 mg/dL (74-106) H Calcium Level 9.8 mg/dL (8.6-10.2) Random Vancomycin Level 13.0 ug/mL VAIBHAV MADRID 14, 2017 09:08
--- NOTE | 2016-07-01 09:14 | Brief Operative Note ---
Immediate Post Operative Note Operative Note Pre-op Diagnosis: bacteremia Procedure: transesphageal echo , pulse/ continuous wave and color flow Doppler imaging Post-op Diagnosis: bacteremia Findings: other - no evidence for valvular vegatation dictated [id number] Surgeon: diannaaneshreliza Anesthesia: moderate sedation Specimen: none Complications: none Condition: stable Estimated Blood Loss: none Drains: none Implant(s) used?: No VAIBHAV MADRID Jul 01, 2016 09:14
--- NOTE | 2016-07-01 09:30 | Anethesia Preoperative Eval ---
Anesthesia Pre-op PMH/ROS General Date of Evaluation: Jul 01, 2016 Time of Evaluation: 08:45 Anesthesiologist: ESTER ASA Score: ASA 3 Mallampati Score Class I : Soft palate, uvula, fauces, pillars visible Class II: Soft palate, uvula, fauces visible Class III: Soft palate, base of uvula visible Class IV: Only hard plate visible Mallampati Classification: Class II Surgeon: MERCY Diagnosis: ENDOCARDITIS Surgical Procedure: NAM Anesthesia History: PONV Family History: no anesthesia problems Allergies: Coded Allergies: PENICILLINS (Unverified Allergy, Unknown, 03/22/15) Medications: see eMAR Past Medical History Cardiovascular: Reports: CAD, HTN Pulmonary: Reports: YELENA Gastrointestinal/Genitourinary: Denies: CRI, ESRD, GERD, other Neurologic/Psychiatric: Reports: other - ORIENTED TO PERSON ONLY Endocrine: Reports: DM HEENT: Denies: CHEESH-NA (L), CHEESH-NA (R), cataract (L), cataract (R), glaucoma, other Hematology/Immune: Reports: anemia, bleeding disorder Musculoskeletal/Integumentary: Denies: DDD, DJD, OA, RA, edema, other Other: obesity PMH Narrative: (1) Diabetic nephropathy (2) UTI (urinary tract infection) (3) Sepsis (4) Anemia (5) Fever (6) Diabetes mellitus (7) Sleep apnea (8) Hypertension (9) GERD (gastroesophageal reflux disease) (10) Hypercholesteremia (11) Cardiomegaly (12) Cirrhosis (13) Elevated liver enzymes PSxH Narrative: KNEE SURGERY Anesthesia Pre-op Phys. Exam Physician Exam Last Vital Signs Date Time Temp Pulse Resp B/P Pulse Ox O2 Delivery O2 Flow Rate FiO2 07/01/16 08:05 97.5 87 15 130/71 99 Room Air 06/28/16 04:00 98.2 Constitutional: NAD Neurologic: CN 2-12 intact Cardiovascular: RRR Respiratory: CTA Gastrointestinal: S/NT/ND Airway Exam Mallampati Classification 3 Mallampati Score: Class III Neck: THICK TMD: 1FB ROM: full Dentures: no lower, no upper Anesthesia Pre-op A/P Labs Hematology Test 07/01/16 08:20 White Blood Count 4.9 K/UL (4.8-10.8) Red Blood Count 3.55 M/UL (4.20-5.40) L Hemoglobin 10.3 G/DL (12.0-16.0) L Hematocrit 32.9 % (37.0-47.0) L Mean Corpuscular Volume 93 FL (80-99) Mean Corpuscular Hemoglobin 29.1 PG (27.0-31.0) Mean Corpuscular Hemoglobin Concent 31.3 G/DL (32.0-36.0) L Red Cell Distribution Width 14.3 % (11.6-14.8) Platelet Count 133 K/UL (150-450) L Mean Platelet Volume 6.6 FL (6.5-10.1) Neutrophils (%) (Auto) 51.3 % (45.0-75.0) Lymphocytes (%) (Auto) 31.7 % (20.0-45.0) Monocytes (%) (Auto) 6.7 % (1.0-10.0) Eosinophils (%) (Auto) 9.4 % (0.0-3.0) H Basophils (%) (Auto) 0.9 % (0.0-2.0) Chemistry Test 07/01/16 08:20 Sodium Level 141 mEQ/L (135-145) Potassium Level 4.0 mEQ/L (3.4-4.9) Chloride Level 104 mEQ/L (98-107) Carbon Dioxide Level 25 mEQ/L (20-30) Anion Gap 12 (5-15) Blood Urea Nitrogen 9 mg/dL (7-23) Creatinine 1.0 mg/dL (0.5-0.9) H Estimat Glomerular Filtration Rate mL/min (>60) Glucose Level 110 mg/dL (74-106) H Calcium Level 9.8 mg/dL (8.6-10.2) Studies Pre-op Studies: EKG - ST Risk Assessment & Plan Plan: MAC Status Change Before Surgery: No Pre-Antibiotics Drug: NONE TERRA NORMAN CRNA Jul 01, 2016 09:30
--- NOTE | 2016-07-01 09:31 | Immediate Post-Op Evaluation ---
Immediate Post-Op Evalulation Immediate Post-Op Evalulation Procedure: NAM Date of Evaluation: Jul 01, 2016 Time of Evaluation: 09:15 Blood Pressure Systolic: 112 Blood Pressure Diastolic: 75 Pulse Rate: 98 Respiratory Rate: 15 O2 Sat by Pulse Oximetry: 100 Temperature (Fahrenheit): 97.5 Nausea: No Vomiting: No Complications NONE Patient Status: awake, reacts, extubated Hydration Status: adequate Drug: NONE TERRA NORMAN CRNA Jul 01, 2016 09:31
--- NOTE | 2016-07-01 10:21 | Infectious Diseases Prog Note ---
Assessment/Plan Assessment/Plan ASSESSMENT: 76 y/o female with: // Fever , SP // probable PICC infection // CoNS bacteremia : SP NAM 07/01 no Evidence of SBE hx of recent CoNS Bacteremia x 2 // Recurrent complicated ESBL(+) E.coli + UTI ( pt had dysuria ) - - CT A/P 09/2015: 9 x 4 mm left proximal ureteral stone with mild left hydronephrosis. // Multiple superficial decubiti POA, not grossly infected // Afebrile without leukocytosis // CKD3 // Hypercalcemia // DM2 // Obesity // MRSA, VRE colonized // PCN allergy - tolerates carbapenems // Full Code PLAN: - cont pt on Vanco d# 7 / and Merrem d# 5 / 10 ( 06/26 SP Cefepime d# 3 ) ( 06/11 SP IV vancomycin, meropenem d# 3 ) - f/u cultures ( Bl ) repeat - monitor CBC, temperatures - monitor BMP Subjective Constitutional: Denies: anorexia, chills, drenching sweats, fatigue, fever, no symptoms, other Allergies: Coded Allergies: PENICILLINS (Unverified Allergy, Unknown, 03/22/15) Objective Vital Signs Last 24 Hour Vital Signs Date Time Temp Pulse Resp B/P Pulse Ox O2 Delivery O2 Flow Rate FiO2 07/01/16 09:31 98 15 100 07/01/16 09:30 97.5 83 24 137/77 97 Room Air 07/01/16 09:20 82 20 148/71 100 Simple Mask 6.0 07/01/16 09:15 82 15 79/49 100 Simple Mask 6.0 07/01/16 09:10 97.7 84 18 121/83 100 Simple Mask 6.0 07/01/16 08:05 97.5 87 15 130/71 99 Room Air 07/01/16 04:00 97.8 86 20 132/73 97 Room Air 07/01/16 00:00 98.2 82 20 130/67 96 Room Air 06/30/16 19:00 98.2 90 18 144/77 95 Room Air 06/30/16 16:00 98.1 92 18 136/74 97 Room Air 06/30/16 11:30 98.0 87 20 147/77 96 Room Air Height (Feet): 5 Weight (Pounds): 211 HEENT: anicteric Respiratory/Chest: lungs clear Cardiovascular: regular rhythm Abdomen: no organomegaly Laboratory Tests Test 07/01/16 08:20 White Blood Count 4.9 K/UL (4.8-10.8) Red Blood Count 3.55 M/UL (4.20-5.40) L Hemoglobin 10.3 G/DL (12.0-16.0) L Hematocrit 32.9 % (37.0-47.0) L Mean Corpuscular Volume 93 FL (80-99) Mean Corpuscular Hemoglobin 29.1 PG (27.0-31.0) Mean Corpuscular Hemoglobin Concent 31.3 G/DL (32.0-36.0) L Red Cell Distribution Width 14.3 % (11.6-14.8) Platelet Count 133 K/UL (150-450) L Mean Platelet Volume 6.6 FL (6.5-10.1) Neutrophils (%) (Auto) 51.3 % (45.0-75.0) Lymphocytes (%) (Auto) 31.7 % (20.0-45.0) Monocytes (%) (Auto) 6.7 % (1.0-10.0) Eosinophils (%) (Auto) 9.4 % (0.0-3.0) H Basophils (%) (Auto) 0.9 % (0.0-2.0) Sodium Level 141 mEQ/L (135-145) Potassium Level 4.0 mEQ/L (3.4-4.9) Chloride Level 104 mEQ/L (98-107) Carbon Dioxide Level 25 mEQ/L (20-30) Anion Gap 12 (5-15) Blood Urea Nitrogen 9 mg/dL (7-23) Creatinine 1.0 mg/dL (0.5-0.9) H Estimat Glomerular Filtration Rate mL/min (>60) Glucose Level 110 mg/dL (74-106) H Calcium Level 9.8 mg/dL (8.6-10.2) Random Vancomycin Level 13.0 ug/mL Current Medications Medications (Trade) Dose Ordered Sig/Pavel Route PRN Reason Start Time Stop Time Status Last Admin Dose Admin Acetaminophen (Tylenol) 650 mg Q4H PRN ORAL T>100.5 06/24/16 10:00 07/24/16 09:59 06/26/16 17:50 Al Hydroxide/Mg Hydroxide (Mylanta II) 30 ml Q6H PRN ORAL dyspepsia 06/24/16 10:00 07/24/16 09:59 Clopidogrel Bisulfate (Plavix) 75 mg DAILY ORAL 06/25/16 09:00 07/25/16 08:59 06/30/16 09:17 Dextrose (Dextrose 50%) STAT PRN IV Hypoglycemia 06/24/16 10:00 07/24/16 09:59 Diphenhydramine HCl (Benadryl) 25 mg Q8H PRN ORAL Itching 06/27/16 21:00 07/27/16 20:59 06/30/16 22:02 Insulin Aspart (NovoLOG) BEFORE MEALS AND HS SUBQ 06/24/16 12:00 07/24/16 11:59 06/30/16 20:13 Meropenem/Sodium Chloride (Merrem/Sodium Chloride) 110 ml @ 220 mls/hr Q8HR IVPB 06/27/16 11:00 07/02/16 10:59 07/01/16 05:04 Nitroglycerin (Ntg) 0.4 mg Q5M PRN SL Prn Chest Pain 06/24/16 10:00 07/24/16 09:59 Ondansetron HCl (Zofran) 4 mg Q6H PRN IVP Nausea & Vomiting 06/24/16 10:00 07/24/16 09:59 06/30/16 01:02 Polyethylene Glycol (Miralax) 17 gm DAILYPRN PRN ORAL Constipation 06/24/16 10:00 07/24/16 09:59 Temazepam (Restoril) 15 mg HSPRN PRN ORAL Insomnia 06/24/16 21:00 07/01/16 20:59 06/26/16 21:15 Vancomycin HCl 1 ea 1 ea DAILY PRN MISC Per rx protocol 06/24/16 20:15 07/24/16 20:14 LYLA ROJAS M.D. Jul 01, 2016 10:21
--- NOTE | 2016-07-01 11:13 | 48 Hour Post Anesthesia Eval ---
Post Anesthesia Evaluation Procedure: NAM Date of Evaluation: Jul 01, 2016 Time of Evaluation: 11:12 Blood Pressure Systolic: 138 0: 55 Pulse Rate: 75 Respiratory Rate: 24 O2 Sat by Pulse Oximetry: 99 Airway: patent Nausea: No Vomiting: No Hydration Status: adequate Mental Status/LOC: patient returned to baseline Post-Anesthesia Complications: none Follow-up care needed: N/A TERRA NORMAN CRNA Jul 01, 2016 11:12
[2016-07-01] MEDS ORDERED: Vancomycin 750mg/D5W 275ml IVPB SCH ×2 (17:00)
--- NOTE | 2016-07-01 17:08 | Internal Med Progress Note ---
Subjective Date of Service: Jul 01, 2016 Physician Name Jed Pond Attending Physician Rl Tee MD Current Medications Medications (Trade) Dose Ordered Sig/Pavel Route PRN Reason Start Time Stop Time Status Last Admin Dose Admin Acetaminophen (Tylenol) 650 mg Q4H PRN ORAL T>100.5 06/24/16 10:00 07/24/16 09:59 06/26/16 17:50 Al Hydroxide/Mg Hydroxide (Mylanta II) 30 ml Q6H PRN ORAL dyspepsia 06/24/16 10:00 07/24/16 09:59 Clopidogrel Bisulfate (Plavix) 75 mg DAILY ORAL 06/25/16 09:00 07/25/16 08:59 06/30/16 09:17 Dextrose (Dextrose 50%) STAT PRN IV Hypoglycemia 06/24/16 10:00 07/24/16 09:59 Diphenhydramine HCl 25 mg 25 mg Q8H PRN ORAL Itching 06/27/16 21:00 07/27/16 20:59 06/30/16 22:02 Insulin Aspart (NovoLOG) BEFORE MEALS AND HS SUBQ 06/24/16 12:00 07/24/16 11:59 06/30/16 20:13 Meropenem/Sodium Chloride (Merrem/Sodium Chloride) 110 ml @ 220 mls/hr Q8HR IVPB 06/27/16 11:00 07/02/16 10:59 07/01/16 14:32 Nitroglycerin (Ntg) 0.4 mg Q5M PRN SL Prn Chest Pain 06/24/16 10:00 07/24/16 09:59 Ondansetron HCl (Zofran) 4 mg Q6H PRN IVP Nausea & Vomiting 06/24/16 10:00 07/24/16 09:59 06/30/16 01:02 Polyethylene Glycol (Miralax) 17 gm DAILYPRN PRN ORAL Constipation 06/24/16 10:00 07/24/16 09:59 Temazepam (Restoril) 15 mg HSPRN PRN ORAL Insomnia 06/24/16 21:00 07/01/16 20:59 06/26/16 21:15 Vancomycin HCl 1 ea 1 ea DAILY PRN MISC Per rx protocol 06/24/16 20:15 07/24/16 20:14 Vancomycin HCl/ Dextrose (Vancomycin/D5W) 275 ml @ 183.708 mls/hr Q24H IVPB 07/01/16 17:00 07/06/16 16:59 Allergies: Coded Allergies: PENICILLINS (Unverified Allergy, Unknown, 03/22/15) Subjective 76 YO F admitted with fever, now UTI and sepsis. Cover for Int Med-Dr Tee. ESBL E. Coli UTI. Coag neg staph Sepsis. Await transfer to [facility] nursing fac today Objective Last Vital Signs Date Time Temp Pulse Resp B/P Pulse Ox O2 Delivery O2 Flow Rate FiO2 07/01/16 11:19 97.7 92 16 146/79 97 Room Air 07/01/16 09:20 6.0 Laboratory Tests Test 07/01/16 08:20 White Blood Count 4.9 K/UL (4.8-10.8) Red Blood Count 3.55 M/UL (4.20-5.40) L Hemoglobin 10.3 G/DL (12.0-16.0) L Hematocrit 32.9 % (37.0-47.0) L Mean Corpuscular Volume 93 FL (80-99) Mean Corpuscular Hemoglobin 29.1 PG (27.0-31.0) Mean Corpuscular Hemoglobin Concent 31.3 G/DL (32.0-36.0) L Red Cell Distribution Width 14.3 % (11.6-14.8) Platelet Count 133 K/UL (150-450) L Mean Platelet Volume 6.6 FL (6.5-10.1) Neutrophils (%) (Auto) 51.3 % (45.0-75.0) Lymphocytes (%) (Auto) 31.7 % (20.0-45.0) Monocytes (%) (Auto) 6.7 % (1.0-10.0) Eosinophils (%) (Auto) 9.4 % (0.0-3.0) H Basophils (%) (Auto) 0.9 % (0.0-2.0) Sodium Level 141 mEQ/L (135-145) Potassium Level 4.0 mEQ/L (3.4-4.9) Chloride Level 104 mEQ/L (98-107) Carbon Dioxide Level 25 mEQ/L (20-30) Anion Gap 12 (5-15) Blood Urea Nitrogen 9 mg/dL (7-23) Creatinine 1.0 mg/dL (0.5-0.9) H Estimat Glomerular Filtration Rate mL/min (>60) Glucose Level 110 mg/dL (74-106) H Calcium Level 9.8 mg/dL (8.6-10.2) Random Vancomycin Level 13.0 ug/mL Intake and Output 06/30/16 07/01/16 19:00 07:00 Intake Total 400 ml 480 ml Output Total 500 ml 1050 ml Balance -100 ml -570 ml Intake Oral 400 ml 480 ml Output Urine Total 500 ml 1050 ml Objective General Appearance: WD/WN, alert, obese EENT: PERRL/EOMI, normal ENT inspection Neck: non-tender, normal alignment, supple Cardiovascular: normal peripheral pulses, normal rate, regular rhythm, no gallop/murmur, no JVD Respiratory/Chest: chest wall non-tender, lungs clear, normal breath sounds, no respiratory distress, no accessory muscle use Abdomen: normal bowel sounds, non tender, soft, no organomegaly, no mass Extremities: normal range of motion 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 (2) UTI (urinary tract infection) Assessment & Plan: ESBL E. Coli. Continue meropenem and vanco. See ID note. (3) Sepsis Assessment & Plan: Coag neg staph. See ID note. Cont vanco and meropenem. Await transesophageal echocardiogram to rule out spontaneous bacterial peritonitis. (4) Anemia (5) Fever (6) Diabetes mellitus Assessment & Plan: Continue novolog sliding scale. (7) Sleep apnea (8) Hypertension (9) GERD (gastroesophageal reflux disease) (10) Hypercholesteremia (11) Cardiomegaly (12) Cirrhosis (13) Elevated liver enzymes Assessment & Plan: See GI note. Status: stable Assessment/Plan Await transfer to [facility] nursing [facility] today. JED POND Jul 01, 2016 17:08
[2016-07-01] MEDS ORDERED: ZOFRAN4 M1 ORAL ×2 (21:09→21:10)
[2016-07-01] MEDS ORDERED: NITROGLYCERIN0.4 MG SL (21:10)
[2016-07-01] MEDS ORDERED: RESTORIL30 MG ORAL (21:11)
[2016-07-01] MEDS ORDERED: MIRALAX17 G2 ORAL (21:12)
[2016-07-01] MEDS ORDERED: VANCOMYCIN1 GM/2502 IVPB (21:14)
[2016-07-01] MEDS ORDERED: MEROPENEM-1 GM/50 ML IV ×2 (21:17→21:18)
--- NOTE | 2016-07-01 22:17 | General Progress Note ---
Assessment/Plan Assessment/Plan Assessment - DURANT - Cirrhosis - Anemia - debilitation Recommendations - push po - elevate HOB - Transfuse PRN - PPI Subjective Allergies: Coded Allergies: PENICILLINS (Unverified Allergy, Unknown, 03/22/15) Subjective Feel OK s/p NAM - negative no abd pain tolerating PO Objective Last 24 Hour Vital Signs Date Time Temp Pulse Resp B/P Pulse Ox O2 Delivery O2 Flow Rate FiO2 07/01/16 19:00 97.4 92 18 156/83 95 Room Air 07/01/16 16:00 97.7 99 18 156/83 95 Room Air 07/01/16 11:19 97.7 92 16 146/79 97 Room Air 07/01/16 11:13 75 24 99 07/01/16 09:31 98 15 100 07/01/16 09:30 97.5 83 24 137/77 97 Room Air 07/01/16 09:20 82 20 148/71 100 Simple Mask 6.0 07/01/16 09:15 82 15 79/49 100 Simple Mask 6.0 07/01/16 09:10 97.7 84 18 121/83 100 Simple Mask 6.0 07/01/16 08:05 97.5 87 15 130/71 99 Room Air 07/01/16 04:00 97.8 86 20 132/73 97 Room Air 07/01/16 00:00 98.2 82 20 130/67 96 Room Air Intake and Output 06/30/16 07/01/16 19:00 07:00 Intake Total 400 ml 480 ml Output Total 500 ml 1050 ml Balance -100 ml -570 ml Intake Oral 400 ml 480 ml Output Urine Total 500 ml 1050 ml Laboratory Tests 07/01/16 08:20: White Blood Count 4.9, Red Blood Count 3.55L, Hemoglobin 10.3L, Hematocrit 32.9L , Mean Corpuscular Volume 93, Mean Corpuscular Hemoglobin 29.1, Mean Corpuscular Hemoglobin Concent 31.3L, Red Cell Distribution Width 14.3, Platelet Count 133L, Mean Platelet Volume 6.6, Neutrophils (%) (Auto) 51.3, Lymphocytes (%) (Auto) 31.7, Monocytes (%) (Auto) 6.7, Eosinophils (%) (Auto) 9.4H, Basophils (%) (Auto) 0.9, Sodium Level 141, Potassium Level 4.0, Chloride Level 104, Carbon Dioxide Level 25, Anion Gap 12, Blood Urea Nitrogen 9, Creatinine 1.0H, Estimat Glomerular Filtration Rate , Glucose Level 110H, Calcium Level 9.8, Random Vancomycin Level 13.0 Height (Feet): 5 Weight (Pounds): 211 Objective WDWN NCAT supple CTA RRR soft ND NT no edema KIERSTEN DAVIES Jul 01, 2016 22:17
--- NOTE | 2016-07-01 22:34 | Pulmonology Progress Note ---
Assessment/Plan Problems: (1) Sepsis (2) Anemia (3) COPD (chronic obstructive pulmonary disease) with emphysema (4) Sleep apnea (5) Cirrhosis (6) Obesity (7) DM (diabetes mellitus) Assessment/Plan NAM pending h/h stable afebrile GI and ID follows on Vancomycin and meropenem continue antibiotics check cultures tolerating diet sliding scle all notes, meds labs reviewed Subjective Allergies: Coded Allergies: PENICILLINS (Unverified Allergy, Unknown, 03/22/15) Objective Last 24 Hour Vital Signs Date Time Temp Pulse Resp B/P Pulse Ox O2 Delivery O2 Flow Rate FiO2 07/01/16 19:00 97.4 92 18 156/83 95 Room Air 07/01/16 16:00 97.7 99 18 156/83 95 Room Air 07/01/16 11:19 97.7 92 16 146/79 97 Room Air 07/01/16 11:13 75 24 99 07/01/16 09:31 98 15 100 07/01/16 09:30 97.5 83 24 137/77 97 Room Air 07/01/16 09:20 82 20 148/71 100 Simple Mask 6.0 07/01/16 09:15 82 15 79/49 100 Simple Mask 6.0 07/01/16 09:10 97.7 84 18 121/83 100 Simple Mask 6.0 07/01/16 08:05 97.5 87 15 130/71 99 Room Air 07/01/16 04:00 97.8 86 20 132/73 97 Room Air 07/01/16 00:00 98.2 82 20 130/67 96 Room Air Intake and Output 06/30/16 07/01/16 19:00 07:00 Intake Total 400 ml 480 ml Output Total 500 ml 1050 ml Balance -100 ml -570 ml Intake Oral 400 ml 480 ml Output Urine Total 500 ml 1050 ml Objective HEENT: normocephalic Respiratory/Chest: chest wall non-tender, lungs clear Cardiovascular: normal peripheral pulses, normal rate Abdomen: normal bowel sounds, soft, non tender Extremities: no cyanosis, no clubbing Skin: no ulcers 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 Musculoskeletal: normal muscle bulk, Laboratory Tests 07/01/16 08:20: White Blood Count 4.9, Red Blood Count 3.55L, Hemoglobin 10.3L, Hematocrit 32.9L , Mean Corpuscular Volume 93, Mean Corpuscular Hemoglobin 29.1, Mean Corpuscular Hemoglobin Concent 31.3L, Red Cell Distribution Width 14.3, Platelet Count 133L, Mean Platelet Volume 6.6, Neutrophils (%) (Auto) 51.3, Lymphocytes (%) (Auto) 31.7, Monocytes (%) (Auto) 6.7, Eosinophils (%) (Auto) 9.4H, Basophils (%) (Auto) 0.9, Sodium Level 141, Potassium Level 4.0, Chloride Level 104, Carbon Dioxide Level 25, Anion Gap 12, Blood Urea Nitrogen 9, Creatinine 1.0H, Estimat Glomerular Filtration Rate , Glucose Level 110H, Calcium Level 9.8, Random Vancomycin Level 13.0 Current Medications Medications (Trade) Dose Ordered Sig/Pavel Route PRN Reason Start Time Stop Time Status Last Admin Dose Admin Acetaminophen (Tylenol) 650 mg Q4H PRN ORAL T>100.5 06/24/16 10:00 07/24/16 09:59 06/26/16 17:50 Al Hydroxide/Mg Hydroxide (Mylanta II) 30 ml Q6H PRN ORAL dyspepsia 06/24/16 10:00 07/24/16 09:59 Clopidogrel Bisulfate (Plavix) 75 mg DAILY ORAL 06/25/16 09:00 07/25/16 08:59 06/30/16 09:17 Dextrose (Dextrose 50%) STAT PRN IV Hypoglycemia 06/24/16 10:00 07/24/16 09:59 Diphenhydramine HCl 25 mg 25 mg Q8H PRN ORAL Itching 06/27/16 21:00 07/27/16 20:59 06/30/16 22:02 Insulin Aspart (NovoLOG) BEFORE MEALS AND HS SUBQ 06/24/16 12:00 07/24/16 11:59 07/01/16 21:48 Meropenem/Sodium Chloride (Merrem/Sodium Chloride) 110 ml @ 220 mls/hr Q8HR IVPB 06/27/16 11:00 07/06/16 10:59 07/01/16 14:32 Nitroglycerin (Ntg) 0.4 mg Q5M PRN SL Prn Chest Pain 06/24/16 10:00 07/24/16 09:59 Ondansetron HCl (Zofran) 4 mg Q6H PRN IVP Nausea & Vomiting 06/24/16 10:00 07/24/16 09:59 06/30/16 01:02 Polyethylene Glycol (Miralax) 17 gm DAILYPRN PRN ORAL Constipation 06/24/16 10:00 07/24/16 09:59 Vancomycin HCl 1 ea 1 ea DAILY PRN MISC Per rx protocol 06/24/16 20:15 07/24/16 20:14 Vancomycin HCl/ Dextrose (Vancomycin/D5W) 275 ml @ 183.708 mls/hr Q24H IVPB 07/01/16 17:00 07/06/16 16:59 DIONI TRIANA Jul 01, 2016 22:34
--- NOTE | 2016-07-03 14:31 | Discharge Summary ---
Discharge Summary Hospital Course Date of Admission Jun 24, 2016 at 08:26 Date of Discharge Jul 01, 2016 at 22:15 Admitting Diagnosis med/surg-anemia/fever (non transfer) HPI Angela Inman is a 76 year old female who was admitted on Jun 24, 2016 at 08: 26 for Anemia,Fever Hospital Course [id number] Discharge Discharge Disposition Patient was discharged to SNF/Subacute Facility(03) Discharge Diagnoses: Teresa Canchola NP Jul 03, 2016 14:31
--- NOTE | 2016-07-04 02:48 | Discharge Summary 2 SIG ---
DATE OF ADMISSION: 06/24/2016 DATE OF DISCHARGE: 07/01/2016 CONSULTANTS: 1. Eduardo Martin M.D. 2. Yokasta Torres M.D. 3. Eitan Stark M.D. 4. Elena Melendez M.D. 5. Oj Medel M.D. BRIEF HOSPITAL COURSE: The patient is a 76-year-old female, who presented to ED due to fever and anemia. She is a resident of [facility] and was found to have a fever greater than 101 degrees. She was admitted for fever and anemia. She has history of type 2 diabetes, hypertension, obstructive sleep apnea, GERD, hypercholesterolemia, cardiomyopathy, diabetic nephropathy, liver cirrhosis, fatty liver, and status post PEG placement with subsequent removal. She was followed by Dr. Stark for evaluation of fever, bacteremia. The patient had a blood culture positive for coagulase-negative Staph. Chest x-ray showed no acute infiltrate. Urine with Gram-negative linda. HIV test was negative. He had a transesophageal echocardiogram on 07/01/2016. Negative for vegetations. He also had an episode of anemia requiring blood transfusion. Abdominal ultrasound showed liver cirrhosis with splenomegaly and portosystemic varices indicative of portal hypertension. She was seen by Dr. Medel. The patient with depressed mood, anhedonia, and anxiety. She was given Zoloft. She was eventually discharged back to [facility]. FINAL DIAGNOSES: 1. Sepsis with coagulase-negative Staphylococcus. 2. Urinary tract infection with Escherichia coli. 3. Diabetic nephropathy. 4. Anemia. 5. Diabetes mellitus. 6. Sleep apnea. 7. Hypertension. 8. Gastroesophageal reflux disease. 9. Cardiomegaly. 10. Cirrhosis. 11. Elevated liver transaminases. Jed Guthrie M.D. I have been assigned to dictate discharge summary on this account and I was not involved in the patient's management. Teresa Canchola N.P. DR: Ashley JOB#: [id number] CC: HAL
== END 2016-07-01 22:15 | DRG 872 ==
LOC: EDBD 07:10 → EMR 07:30 → EDBEDREQ 08:11 → 4E 08:26 → EDBEDREQ 09:48 → 4E 06-25 23:01
PROC: 30233N1 Transfusion of Nonautologous Red Blood Cells into Peripheral Vein, Percutaneous Approach (ICD-10-PCS; principal; 2016-06-25)
PROC: B246ZZ4 Ultrasonography of Right and Left Heart, Transesophageal (ICD-10-PCS; 2016-07-01)
DX: A41.1 Sepsis due to other specified staphylococcus (principal); I13.0 Hypertensive heart and chronic kidney disease with heart failure and stage 1 through stage 4 chronic kidney disease, or unspecified chronic kidney disease; I42.9 Cardiomyopathy, unspecified; D69.6 Thrombocytopenia, unspecified; N18.3 Chronic kidney disease, stage 3 (moderate); E11.21 Type 2 diabetes mellitus with diabetic nephropathy; Z68.41 Body mass index [BMI] 40.0-44.9, adult; N13.2 Hydronephrosis with renal and ureteral calculous obstruction; N30.90 Cystitis, unspecified without hematuria; J44.9 Chronic obstructive pulmonary disease, unspecified; K74.60 Unspecified cirrhosis of liver; E66.9 Obesity, unspecified; D64.9 Anemia, unspecified; E83.52 Hypercalcemia; K21.9 Gastro-esophageal reflux disease without esophagitis; I25.10 Atherosclerotic heart disease of native coronary artery without angina pectoris; Z88.0 Allergy status to penicillin; L89.90 Pressure ulcer of unspecified site, unspecified stage; G47.33 Obstructive sleep apnea (adult) (pediatric); Z74.01 Bed confinement status; Z79.82 Long term (current) use of aspirin; B96.20 Unspecified Escherichia coli [E. coli] as the cause of diseases classified elsewhere; Z16.21 Resistance to vancomycin; Z22.322 Carrier or suspected carrier of Methicillin resistant Staphylococcus aureus
CPT/HCPCS: 36415; 71010; 76700; 80048; 80053; 80069; 80202; 81003; 82164; 82550; 82553; 82962; 83735; 84100; 84484; 85007; 85025; 85610; 85730; 86850; 86900; 86901; 86904; 86920; 87040; 87081; 87086; 87181; 93005; 93312; 94003; 94150; 94640; 94664; J1815; J2405; J7620

== ENCOUNTER 2016-08-20 18:33 | Inpatient (IN) | payer MEDICARE, MEDICAID ==
[~2016-08-20] VITALS: Ht 165.1 cm; Wt 104.3 kg
[~2016-08-20 18:33] MED LIST changes: +MEROPENEM-1 GM/50 ML IV; +MIRALAX17 G2 ORAL; +NITROGLYCERIN0.4 MG SL; +RESTORIL30 MG ORAL; +VANCOMYCIN1 GM/2502 IVPB; +ZOFRAN4 M1 ORAL
[2016-08-20 18:48] VITALS: BP 94/59
[2016-08-20 20:03] LABS: BASOPHILS % (AUTO) 0.7 % (0.0-2.0); LYMPHOCYTES % (AUTO) 12.7 % (20.0-45.0); MEAN CORPUSCULAR HEMOGLOBIN 31.9 PG (27.0-31.0); MEAN CORPUSCULAR VOLUME 100 FL (80-99); MEAN PLATELET VOLUME 7.3 FL (6.5-10.1); MONOCYTES % (AUTO) 5.7 % (1.0-10.0); NEUTROPHILS % (AUTO) 77.9 % (45.0-75.0); PLATELET COUNT 120 K/UL (150-450); RED BLOOD COUNT 3.54 M/UL (4.20-5.40); RED CELL DISTRIBUTION WIDTH 15.8 % (11.6-14.8); WHITE BLOOD COUNT 14.8 K/UL (4.8-10.8)
[2016-08-20 20:30] LABS: TROPONIN I < 0.30 ng/mL (<=0.30)
[2016-08-20 20:35] LABS: ALANINE AMINOTRANSFERASE 14 U/L (3-33); ALBUMIN/GLOBULIN RATIO 0.6 (1.0-2.7); ANION GAP 18 (5-15); ASPARTATE AMINO TRANSFERASE 52 U/L (5-40); CALCIUM 10.5 mg/dL (8.6-10.2); CARBON DIOXIDE 19 mEQ/L (20-30); CHLORIDE 102 mEQ/L (98-107); HEMOLYSIS 2; POTASSIUM 4.9 mEQ/L (3.4-4.9); SODIUM 139 mEQ/L (135-145)
[2016-08-20 20:45] LABS: CKMB 5.2 ng/mL (< 3.8)
[2016-08-20 20:47] VITALS: BP 110/60
[2016-08-20 20:48] LABS: REFLEX LACTIC ACID YES OR NO YES
[2016-08-20 21:06] LABS: BILIRUBIN,DIRECT 0.4 mg/dL (0.1-0.3)
--- NOTE | 2016-08-20 21:28 | Emergency Room Report ---
History of Present Illness General Chief Complaint: Fever Source: Medical Record, EMS Present Illness HPI 76-year-old female presents ED for evaluation. [facility] Per staff patient has had a reported fever starting today. Patient was given Tylenol. Patient states she feels weak. Denies any cough. Denies any chest pain. Denies any dysuria or hematuria. No other aggravating or relieving factors. Denies any other associated symptoms Allergies: Coded Allergies: PENICILLINS (Unverified Allergy, Unknown, 03/22/15) Patient History Past Medical History: DM, HTN, GERD Pertinent Family History: none Social History: Denies: alcohol use, drug use, smoking Last Menstrual Period: na Now: No Immunizations: UTD Reviewed Nursing Documentation: PMH: Agreed, PSxH: Agreed Nursing Documentation-PMH Past Medical History: No History, Except For Hx Cardiac Problems: Yes - high cholesterol, cardiomyopathy Hx Hypertension: Yes Hx Pacemaker: No Hx Asthma: No Hx COPD: Yes - obstructive sleep apnea Hx Diabetes: Yes Hx Cancer: No Hx Gastrointestinal Problems: Yes - gerd Hx Neurological Problems: Yes - diabetic neuropathy Hx Cerebrovascular Accident: No Hx Seizures: No Review of Systems All Other Systems: negative except mentioned in HPI Physical Exam Vital Signs Date Time Temp Pulse Resp B/P Pulse Ox O2 Delivery O2 Flow Rate FiO2 08/20/16 18:34 98.6 73 28 94/59 90 Room Air Sp02 EP Interpretation: reviewed, normal General Appearance: no apparent distress, alert, GCS 15, non-toxic, obese Head: normocephalic, atraumatic Eyes: bilateral eye PERRL, bilateral eye normal inspection ENT: hearing grossly normal, normal pharynx, no angioedema, normal voice Neck: full range of motion, supple/symm/no masses Respiratory: chest non-tender, lungs clear, normal breath sounds, speaking full sentences Cardiovascular #1: regular rate, rhythm, no edema Cardiovascular #2: 2+ carotid (R), 2+ carotid (L), 2+ radial (R), 2+ radial (L) , 2+ dorsalis pedis (R), 2+ dorsalis pedis (L) Gastrointestinal: normal bowel sounds, non tender, soft, non-distended, no guarding, no rebound Rectal: deferred Genitourinary: normal inspection, no CVA tenderness Musculoskeletal: back normal, gait/station normal, normal range of motion, non- tender Neurologic: alert, oriented x3, responsive, motor strength/tone normal, sensory intact, speech normal Psychiatric: judgement/insight normal, memory normal, mood/affect normal, no suicidal/homicidal ideation Reflexes: 3+ bicep (R), 3+ bicep (L), 3+ tricep (R), 3+ tricep (L), 3+ knee (R) , 3+ knee (L) Skin: normal color, no rash, warm/dry, well hydrated Lymphatic: no adenopathy Medical Decision Making Diagnostic Impression: Primary Impression: Sepsis Qualified Codes: A41.9 - Sepsis, unspecified organism Additional Impressions: UTI (urinary tract infection) Qualified Codes: N39.0 - Urinary tract infection, site not specified ARF (acute renal failure) Qualified Codes: N17.9 - Acute kidney failure, unspecified ER Course Hospital Course 76-year-old female presenting to ED with generalized weakness, fever Differential diagnoses include: Pneumonia, UTI, sepsis, dehydration, UT/ unstable angina Clinical course Patient placed on stretcher. On cold roller with stable vitals are ED course. After initial history and physical, I ordered labs, IV fluids, EKG, chest x-ray, blood cultures, UA. Labs - BUN/Cr elevated, noted leukocytosis, troponins negative, UA grossly positive for UTI, lactate > 2 EKG - NSR no acute changes CXR - no acute process Abx given. given 30cc/kg fluid bolus. Case discussed with Dr Tee and they agreed to admit patient to their service for further care and support I feel this is a highly complex case requiring extensive working including EKG/ Rhythm strip, Xray/CT/US, Blood/urine lab work, repeat exams while in ED, and administration of strong opiates/narcotics for pain control, admission to hospital or close patient follow up. Diagnosis - UTI, sepsis, ARF Patient admitted to floor in serious condition Labs Test 08/20/16 19:25 08/20/16 21:12 White Blood Count 14.8 K/UL (4.8-10.8) Red Blood Count 3.54 M/UL (4.20-5.40) Hemoglobin 11.3 G/DL (12.0-16.0) Hematocrit 35.3 % (37.0-47.0) Mean Corpuscular Volume 100 FL (80-99) Mean Corpuscular Hemoglobin 31.9 PG (27.0-31.0) Mean Corpuscular Hemoglobin Concent 32.0 G/DL (32.0-36.0) Red Cell Distribution Width 15.8 % (11.6-14.8) Platelet Count 120 K/UL (150-450) Mean Platelet Volume 7.3 FL (6.5-10.1) Neutrophils (%) (Auto) 77.9 % (45.0-75.0) Lymphocytes (%) (Auto) 12.7 % (20.0-45.0) Monocytes (%) (Auto) 5.7 % (1.0-10.0) Eosinophils (%) (Auto) 3.0 % (0.0-3.0) Basophils (%) (Auto) 0.7 % (0.0-2.0) Sodium Level 139 mEQ/L (135-145) Potassium Level 4.9 mEQ/L (3.4-4.9) Chloride Level 102 mEQ/L (98-107) Carbon Dioxide Level 19 mEQ/L (20-30) Anion Gap 18 (5-15) Blood Urea Nitrogen 46 mg/dL (7-23) Creatinine 2.0 mg/dL (0.5-0.9) Estimat Glomerular Filtration Rate mL/min (>60) Glucose Level 142 mg/dL (74-106) Lactic Acid Level 2.50 mmol/L (0.66-2.22) Calcium Level 10.5 mg/dL (8.6-10.2) Total Bilirubin 1.2 mg/dL (0.0-1.2) Direct Bilirubin 0.4 mg/dL (0.1-0.3) Aspartate Amino Transf (AST/SGOT) 52 U/L (5-40) Alanine Aminotransferase (ALT/SGPT) 14 U/L (3-33) Alkaline Phosphatase 160 U/L (35-104) Total Creatine Kinase 255 U/L (26-140) Creatine Kinase MB 5.2 ng/mL (< 3.8) Creatine Kinase MB Relative Index 2.0 Troponin I < 0.30 ng/mL (<=0.30) Pro-B-Type Natriuretic Peptide 621 pg/mL (0-450) Total Protein 8.0 g/dL (6.6-8.7) Albumin 3.0 g/dL (3.5-5.2) Globulin 5.0 g/dL Albumin/Globulin Ratio 0.6 (1.0-2.7) Urine Color Pale yellow Urine Appearance Slightly cloudy Urine pH 8 (4.5-8.0) Urine Specific [place] 1.010 (1.005-1.035) Urine Protein 2+ (NEGATIVE) Urine Glucose (UA) Negative (NEGATIVE) Urine Ketones Negative (NEGATIVE) Urine Occult Blood 4+ (NEGATIVE) Urine Nitrite Negative (NEGATIVE) Urine Bilirubin Negative (NEGATIVE) Urine Urobilinogen Normal MG/DL (0.0-1.0) Urine Leukocyte Esterase 3+ (NEGATIVE) EKG Diagnostic Results Rate: normal Rhythm: NSR ST Segments: no acute changes ASA given to the pt in ED: No Rhythm Strip Diag. Results EP Interpretation: yes Rhythm: NSR, no PVC's, no ectopy Chest X-Ray Diagnostic Results EP Interpretation: Yes Findings: no consolidation, no effusion, no pneumothorax, no acute cardiopulmonary disease Number of Views: 1 Last Vital Signs Date Time Temp Pulse Resp B/P Pulse Ox O2 Delivery O2 Flow Rate FiO2 08/20/16 20:47 69 24 110/60 100 Room Air 08/20/16 18:48 98.6 Status: improved Disposition: ADMITTED INPATIENT Condition: Serious Referrals: Rl Tee MD (PCP) DALLAS MANUEL M.D. August 20, 2016 21:28
[2016-08-20] MEDS ORDERED: NS 1000ml 3,100 ML IVLG ONE (21:30)
[2016-08-20 22:00] LABS: KETONES,URINE NEGATIVE (NEGATIVE); LEUKOCYTE ESTERASE ,URINE 3+ (NEGATIVE); NITRITE,URINE NEGATIVE (NEGATIVE); PH,URINE 8 (4.5-8.0); PROTEIN,URINE 2+ (NEGATIVE); UROBILINOGEN,URINE NORMAL MG/DL (0.0-1.0)
[2016-08-20] MEDS ORDERED: Vancomycin 1 GM in D5W 275 ML IVPB SCH (22:00)
[2016-08-20] MEDS ORDERED: DuoNeb 0.5-3(2.5)mg/3ml neb HHN PRN (22:00)
[2016-08-20] MEDS ORDERED: Miralax 17gm pkt ORAL PRN (22:00)
[2016-08-20] MEDS ORDERED: Nitroglycerin Subl 0.4mg tab (Bottle Of 25) SL PRN (22:00)
[2016-08-20] MEDS ORDERED: Morphine Sulfate 2mg/ml Inj IVP PRN (22:00)
[2016-08-20 22:02] LABS: APPEARANCE,URINE SLIGHTLY CLOUDY
[2016-08-20 22:11] VITALS: BP 113/74
[2016-08-20 22:25] LABS: AMORPHOUS SEDIMENT,UR FEW /LPF; BACTERIA,URINE MANY /HPF; RBC,URINE 15-20 /HPF (0 - 2); SQUAMOUS EPITHELIAL CELL,UR FEW /LPF (NONE/OCC); WBC,URINE 20-30 /HPF (0 - 2)
[2016-08-20 23:16] VITALS: BP 140/69
[2016-08-20] MEDS: Aztreonam Inj 0.5 GM in NS 55 ML IVPB SCH (23:19)
[2016-08-21] MEDS ORDERED: Vancomycin 1.5 GM in D5W 325 ML IVPB ONE (01:00)
[2016-08-21] MEDS ORDERED: Vancomycin 1gm inj IVPB ONE (01:12)
[2016-08-21 03:47] LABS: APPEARANCE,URINE CLOUDY; KETONES,URINE NEGATIVE (NEGATIVE); LEUKOCYTE ESTERASE ,URINE 1+ (NEGATIVE); NITRITE,URINE NEGATIVE (NEGATIVE); PH,URINE 9 (4.5-8.0); PROTEIN,URINE 2+ (NEGATIVE); RBC,URINE 0-2 /HPF (0 - 2); UROBILINOGEN,URINE NORMAL MG/DL (0.0-1.0)
[2016-08-21 03:48] LABS: BACTERIA,URINE MANY /HPF; TRIPLE PHOSPHATE CRYSTAL,UR MODERATE /LPF
[2016-08-21] MEDS: Aztreonam Inj 0.5 GM in NS 55 ML IVPB SCH (05:36)
[2016-08-21] MEDS: NovoLOG Insulin Flexpen SUBQ SCH ×4 (06:23→20:55)
[2016-08-21 07:16] LABS: ALANINE AMINOTRANSFERASE 12 U/L (3-33); ALBUMIN/GLOBULIN RATIO 0.5 (1.0-2.7); ANION GAP 16 (5-15); ASPARTATE AMINO TRANSFERASE 41 U/L (5-40); CALCIUM 9.4 mg/dL (8.6-10.2); CARBON DIOXIDE 17 mEQ/L (20-30); CHLORIDE 108 mEQ/L (98-107); CREATININE 1.8 mg/dL (0.5-0.9); HEMOLYSIS 3; POTASSIUM 4.5 mEQ/L (3.4-4.9); SODIUM 141 mEQ/L (135-145); TOTAL PROTEIN 6.7 g/dL (6.6-8.7)
[2016-08-21 07:19] LABS: MEAN CORPUSCULAR HEMOGLOBIN 30.4 PG (27.0-31.0); MEAN CORPUSCULAR HGB CONC 31.7 G/DL (32.0-36.0); MEAN CORPUSCULAR VOLUME 96 FL (80-99); MEAN PLATELET VOLUME 7.4 FL (6.5-10.1); PLATELET COUNT 92 K/UL (150-450); RED BLOOD COUNT 3.12 M/UL (4.20-5.40); RED CELL DISTRIBUTION WIDTH 15.5 % (11.6-14.8); WHITE BLOOD COUNT 8.7 K/UL (4.8-10.8)
[2016-08-21 08:15] VITALS: BP 127/62
[2016-08-21] MEDS: Lactulose 20gm/30ml UDC ORAL SCH ×3 (08:20→17:28)
[2016-08-21] MEDS: Sertraline 50mg tab ORAL SCH (08:20)
[2016-08-21] MEDS: Metoprolol 25mg tab ORAL SCH ×2 (08:21→20:51)
[2016-08-21 08:57] LABS: EOSINOPHILS % (MANUAL) 7 % (0-3); LYMPHOCYTES % (MANUAL) 15 % (20-45); NEUTROPHILS % (MANUAL) 71 % (45-75); TOTAL CELLS COUNTED 100
[2016-08-21 08:58] LABS: ANISOCYTOSIS 1+; BAND NEUTROPHILS % (MANUAL) 0 % (0-8); BASOPHILS % (MANUAL) 0 % (0-2); HYPOCHROMASIA 2+; PLATELET ESTIMATE DECREASED; PLATELET MORPHOLOGY NORMAL
[2016-08-21] MEDS ORDERED: Heparin 5000 units/ml inj SUBQ SCH (09:00)
--- NOTE | 2016-08-21 10:01 | Diagnostic Imaging Report ---
Indications: COUGH Technique: Portable AP chest Findings: Comparison: 06/24/2016 Inspiratory effort has modestly improved. Cardiac silhouette remains enlarged. Pulmonary vasculature currently within normal limits. Bilateral parahilar mild bronchial wall thickening persists. Linear density resides adjacent to the left heart border. No other new pulmonary parenchymal or pleural abnormality demonstrated. Bilateral glenohumeral degenerative arthropathy, bone cement in T12 or L1 vertebral body again noted. IMPRESSION: Development versus better visualization of subsegmental atelectasis versus scarring in lingula No other evidence of acute cardiopulmonary disease Stable bronchial wall thickening, likely chronic Stable cardiomegaly Other stable chronic changes as described
--- NOTE | 2016-08-21 10:56 | Consultation ---
Consult Note Assessment/Plan ASSESSMENT: 76 y/o female with: // Rt leg cellulitis // Fever // hx of PICC infection and CoNS recurrent bacteremia : // Recurrent complicated ESBL(+) E.coli + UTI ( pt has dysuria ) - - CT A/P 09/2015: 9 x 4 mm left proximal ureteral stone with mild left hydronephrosis. // Multiple superficial decubiti POA, not grossly infected // CKD3 // Hypercalcemia // DM2 // Obesity // MRSA, VRE colonized // PCN allergy - tolerates carbapenems // Full Code PLAN: - cont pt on Vanco d# 2 ( 06/26 SP Cefepime d# 3 ) ( 06/11 SP IV vancomycin, meropenem d# 3 ) - f/u cultures ( Bl ) repeat - monitor CBC, temperatures - monitor BMP LYLA ROJAS M.D. August 21, 2016 10:56
--- NOTE | 2016-08-21 11:00 | Consultation ---
Consult Note Consult Note ID dic # [id number] LYLA ROJAS M.D. August 21, 2016 11:00
[2016-08-21 12:09] VITALS: BP 146/58
--- NOTE | 2016-08-21 14:25 | Consultation ---
Consult Note Consult Note asked to eval for renal failure Chief Complaint: Fever 76-year-old female presents ED for evaluation. Patient resides [facility]. Per staff patient has had a reported fever starting today. Patient was given Tylenol. Patient states she feels weak. Denies any cough. Denies any chest pain. Denies any dysuria or hematuria. No other aggravating or relieving factors. Denies any other associated symptoms Allergies: PENICILLINS (Unverified Allergy, Unknown, 03/22/15) Past Medical History: DM, HTN, GERD Past Medical History: No History, Except For Hx Cardiac Problems: Yes - high cholesterol, cardiomyopathy Hx Hypertension: Yes Hx COPD: Yes - obstructive sleep apnea Hx Diabetes: Yes Hx Gastrointestinal Problems: Yes - gerd Hx Neurological Problems: Yes - diabetic neuropathy General Appearance: no apparent distress, alert, GCS 15, non-toxic, obese Head: normocephalic, atraumatic Eyes: bilateral eye PERRL, bilateral eye normal inspection ENT: hearing grossly normal, normal pharynx, no angioedema, normal voice Neck: full range of motion, supple/symm/no masses Respiratory: chest non-tender, lungs clear, normal breath sounds, speaking full sentences Cardiovascular #1: regular rate, rhythm, no edema Cardiovascular #2: 2+ carotid (R), 2+ carotid (L), 2+ radial (R), 2+ radial (L) , 2+ dorsalis pedis (R), 2+ dorsalis pedis (L) Gastrointestinal: normal bowel sounds, non tender, soft, non-distended, no guarding, no rebound Rectal: deferred Genitourinary: normal inspection, no CVA tenderness Musculoskeletal: back normal, gait/station normal, normal range of motion, non- tender Neurologic: alert, oriented x3, responsive, motor strength/tone normal, sensory intact, speech normal Psychiatric: judgement/insight normal, memory normal, mood/affect normal, no suicidal/homicidal ideation Reflexes: 3+ bicep (R), 3+ bicep (L), 3+ tricep (R), 3+ tricep (L), 3+ knee (R) , 3+ knee (L) Skin: normal color, no rash, warm/dry, well hydrated Lymphatic: no adenopathy Assessment/Plan ARF (acute renal failure) , and possible CKD due to DM CT A/P 09/2015: 9 x 4 mm left proximal ureteral stone with mild left hydronephrosis. Primary Impression: Sepsis Rt leg cellulitis hx of PICC infection and CoNS recurrent bacteremia : Recurrent complicated ESBL(+) E.coli + UTI ( pt has dysuria ) Multiple superficial decubiti POA, not grossly infected Additional Impressions: UTI (urinary tract infection) Obesity High Ca Anemia Plan: Per ID Avoid Nephrotoxics Urine studies monitor renal parameters slow hydrate kidney LASHANDA per orders ANDERS MOLINA August 21, 2016 14:24
--- NOTE | 2016-08-21 15:08 | Diagnostic Imaging Report ---
APPROVED REPORT CPT Code: 30265 Present Symptoms Lower Extremity Pain: Bilateral BILATERAL: Imaging reveals a patent deep venous system bilaterally. There is no evidence of thrombus within the femoral, popliteal or tibial segments. The greater saphenous veins are also within normal limits. Doppler indicates normal spontaneous flow within these segments.
[2016-08-21 15:37] VITALS: BP 117/53
--- NOTE | 2016-08-21 15:57 | Consultation ---
History of Present Illness General Date patient seen: August 21, 2016 Chief Complaint: Fever Referring physician: Dr. Guthrie Reason for Consultation: inpatient management Present Illness HPI 76-year-old female with PMHx of COPD, HTN, Obesity, Liver disease, [facility] resident presented to ED for evaluation of fever starting today and feeling weak. Denies any cough. Denies any chest pain. Denies any dysuria or hematuria. No other aggravating or relieving factors. Allergies: Coded Allergies: PENICILLINS (Unverified Allergy, Unknown, 03/22/15) Medication History Scheduled Ascorbic Acid* (Vitamin C*), Unknown Dose ORAL DAILY, (Reported) Aspirin* (Aspir 81*), 81 MG ORAL DAILY, (Reported) Atorvastatin Calcium* (Atorvastatin Calcium*), 20 MG ORAL BEDTIME, (Reported) Clopidogrel Bisulfate* (Plavix*), 75 MG ORAL DAILY, (Reported) Cranberry Fruit Concentrate (Cranberry), 450 MG PO DAILY, (Reported) Docusate Sodium* (Docusate Sodium*), 100 MG ORAL BID, (Reported) Ferrous Sulfate (Ferrous Sulfate), 325 MG PO DAILY, (Reported) Furosemide* (Lasix*), 20 MG PO DAILY, (Reported) Gabapentin* (Gabapentin*), 300 MG ORAL THREE TIMES A DAY, (Reported) Insulin Aspart (Novolog), BEFORE MEALS AND HS, (Reported) Insulin Detemir (Levemir), 25 UNITS SUBQ BEDTIME, (Reported) Lactulose (Lactulose*), 30 ML ORAL THREE TIMES A DAY, (Reported) Losartan Potassium* (Losartan Potassium*), 12.5 MG ORAL DAILY, (Reported) Magnesium Chloride (Slow-Mag), 1 TAB PO DAILY, (Reported) Metoclopramide Hcl* (Reglan*), 5 MG ORAL BID, (Reported) Metoprolol Tartrate* (Metoprolol Tartrate*), 25 MG ORAL EVERY 12 HOURS, ( Reported) Nateglinide* (Starlix*), 90 MG ORAL BEFORE MEALS, (Reported) Polyethylene Glycol 3350* (Miralax*), 17 GM ORAL DAILY, (Reported) Ranitidine Hcl* (Zantac*), 150 MG ORAL DAILY, (Reported) Sertraline Hcl* (Sertraline Hcl*), 25 MG ORAL DAILY, (Reported) Temazepam (Restoril*), 15 MG ORAL BEDTIME, (Reported) [mulitvital-m], 1 TAB PO DAILY, (Reported) Scheduled PRN Acetaminophen (Acetaminophen), 650 MG ORAL Q6H PRN for Prn Headache/Temp > 101, (Reported) Diphenhydramine Hcl* (Benadryl*), 25 MG ORAL EVERY 8 HOURS PRN for Itching, ( Reported) Hydrocodone/Acetaminophen (Hydrocodon-Acetaminophn 10-325), 1 TAB ORAL Q6H PRN for For Pain, (Reported) Ondansetron (Zofran), 4 MG ORAL Q6H PRN for Nausea & Vomiting, (Reported) Simethicone* (Simethicone*), 160 MG ORAL Q8H PRN for Abdominal cramps, (Reported ) Miscellaneous Medications Calcium Carbonate/Mag Carb/Fa (Magnebind 400 Rx Tablet), 1 EACH PO, (Reported) Nitroglycerin (Nitroglycerin), 0.4 MG SL, (Reported) Discontinued Medications Ertapenem Sodium* (INVanz*), 1 GM IVPB Q24H, (Reported) Discontinued Reason: Pt stopped taking med Ertapenem Sodium* (INVanz*), 1 GM IVPB Q24H, (Reported) Discontinued Reason: Pt stopped taking med Insulin Glargine (Lantus), 55 UNIT SUBQ BID, (Reported) Discontinued Reason: Pt stopped taking med Insulin Lispro (Humalog Kwikpen), UNIT SQ AC+HS PRN for Hyperglycemia, (Reported ) Discontinued Reason: Pt stopped taking med Meropenem-0.9% Sodium Chloride (Meropenem-0.9% NaCl 1 Gram/50), 1 GM IV Q8HR, ( Reported) Discontinued Reason: Pt stopped taking med Nateglinide* (Starlix*), 60 MG ORAL THREE TIMES A DAY, (Reported) Discontinued Reason: Pt stopped taking med Nitrofurantoin Monohyd/M-Cryst* (Macrobid 100 Mg*), 100 MG ORAL EVERY 12 HOURS Discontinued Reason: Pt stopped taking med Nitrofurantoin Monohyd/M-Cryst* (Macrobid 100 Mg*), 100 MG ORAL BID Discontinued Reason: Pt stopped taking med Vancomycin Hcl/D5w (Vancomycin-D5w 1 G/250 Ml), 750 MG IVPB Q24H, (Reported) Discontinued Reason: Pt stopped taking med Patient History Healthcare decision maker Resuscitation status Full Code Advanced Directive on File Past Medical/Surgical History Past Medical/Surgical History: (1) Diabetic nephropathy (2) GERD (gastroesophageal reflux disease) (3) COPD (chronic obstructive pulmonary disease) with emphysema (4) Cardiomegaly (5) DM (diabetes mellitus) (6) Sleep apnea (7) Cirrhosis Review of Systems All Other Systems: negative except mentioned in HPI Physical Exam General Appearance: WD/WN, morbidly obese HEENT: normocephalic, anicteric Neck: non-tender, normal alignment, limited range of motion Respiratory/Chest: chest wall non-tender, lungs clear, normal breath sounds Cardiovascular/Chest: normal peripheral pulses, normal rate Abdomen: normal bowel sounds, non tender Genitourinary/Rectal: normal genital exam Extremities: normal range of motion Last 24 Hour Vital Signs Date Time Temp Pulse Resp B/P Pulse Ox O2 Delivery O2 Flow Rate FiO2 08/21/16 15:37 97.9 89 22 117/53 98 Room Air 08/21/16 12:09 97.3 85 22 146/58 95 Room Air 08/21/16 08:35 97 Room Air 21 08/21/16 08:21 74 140/69 08/21/16 08:15 97.9 74 23 127/62 98 Room Air 08/20/16 23:16 97.7 74 20 140/69 99 Room Air 08/20/16 22:12 98.0 75 22 113/74 100 Room Air 08/20/16 22:11 98.0 75 22 113/74 100 Room Air 08/20/16 20:47 98.0 69 24 110/60 100 Room Air 08/20/16 18:48 98.6 73 28 94/59 100 Room Air 08/20/16 18:34 98.6 73 28 94/59 90 Room Air Intake and Output 08/20/16 08/21/16 19:00 07:00 Intake Total 0 ml 1965.0 ml Output Total 850 ml Balance 0 ml 1115.0 ml Intake Oral 0 ml 240 ml IV Total 1725.0 ml Output Urine Total 850 ml # Bowel Movements 1 Laboratory Tests Test 08/20/16 19:25 08/20/16 21:12 08/20/16 22:00 08/21/16 02:50 White Blood Count 14.8 K/UL (4.8-10.8) H Red Blood Count 3.54 M/UL (4.20-5.40) L Hemoglobin 11.3 G/DL (12.0-16.0) L Hematocrit 35.3 % (37.0-47.0) L Mean Corpuscular Volume 100 FL (80-99) H Mean Corpuscular Hemoglobin 31.9 PG (27.0-31.0) H Mean Corpuscular Hemoglobin Concent 32.0 G/DL (32.0-36.0) Red Cell Distribution Width 15.8 % (11.6-14.8) H Platelet Count 120 K/UL (150-450) L Mean Platelet Volume 7.3 FL (6.5-10.1) Neutrophils (%) (Auto) 77.9 % (45.0-75.0) H Lymphocytes (%) (Auto) 12.7 % (20.0-45.0) L Monocytes (%) (Auto) 5.7 % (1.0-10.0) Eosinophils (%) (Auto) 3.0 % (0.0-3.0) Basophils (%) (Auto) 0.7 % (0.0-2.0) Sodium Level 139 mEQ/L (135-145) Potassium Level 4.9 mEQ/L (3.4-4.9) Chloride Level 102 mEQ/L (98-107) Carbon Dioxide Level 19 mEQ/L (20-30) L Anion Gap 18 (5-15) H Blood Urea Nitrogen 46 mg/dL (7-23) H Creatinine 2.0 mg/dL (0.5-0.9) H Estimat Glomerular Filtration Rate mL/min (>60) Glucose Level 142 mg/dL (74-106) H Lactic Acid Level 2.50 mmol/L (0.66-2.22) H 1.70 mmol/L (0.66-2.22) Calcium Level 10.5 mg/dL (8.6-10.2) H Total Bilirubin 1.2 mg/dL (0.0-1.2) Direct Bilirubin 0.4 mg/dL (0.1-0.3) H Aspartate Amino Transf (AST/SGOT) 52 U/L (5-40) H Alanine Aminotransferase (ALT/SGPT) 14 U/L (3-33) Alkaline Phosphatase 160 U/L (35-104) H Total Creatine Kinase 255 U/L (26-140) H Creatine Kinase MB 5.2 ng/mL (< 3.8) H Creatine Kinase MB Relative Index 2.0 Troponin I < 0.30 ng/mL (<=0.30) Pro-B-Type Natriuretic Peptide 621 pg/mL (0-450) H Total Protein 8.0 g/dL (6.6-8.7) Albumin 3.0 g/dL (3.5-5.2) L Globulin 5.0 g/dL Albumin/Globulin Ratio 0.6 (1.0-2.7) L Urine Color Pale yellow Pale yellow Urine Appearance Slightly cloudy Cloudy Urine pH 8 (4.5-8.0) 9 (4.5-8.0) Urine Specific [place] 1.010 (1.005-1.035) 1.010 (1.005-1.035) Urine Protein 2+ (NEGATIVE) H 2+ (NEGATIVE) H Urine Glucose (UA) Negative (NEGATIVE) Negative (NEGATIVE) Urine Ketones Negative (NEGATIVE) Negative (NEGATIVE) Urine Occult Blood 4+ (NEGATIVE) H 2+ (NEGATIVE) H Urine Nitrite Negative (NEGATIVE) Negative (NEGATIVE) Urine Bilirubin Negative (NEGATIVE) Negative (NEGATIVE) Urine Urobilinogen Normal MG/DL (0.0-1.0) Normal MG/DL (0.0-1.0) Urine Leukocyte Esterase 3+ (NEGATIVE) H 1+ (NEGATIVE) H Urine RBC 15-20 /HPF (0 - 2) H 0-2 /HPF (0 - 2) Urine WBC 20-30 /HPF (0 - 2) H 2-4 /HPF (0 - 2) Urine Squamous Epithelial Cells Few /LPF (NONE/OCC) None /LPF (NONE/OCC) Urine Amorphous Sediment Few /LPF (NONE) H Urine Bacteria Many /HPF (NONE) H Many /HPF (NONE) H Urine Triple Phosphate Crystals Moderate /LPF (NONE) H Urine Eosinophils None seen Urine Osmolality Pending Urine Random Sodium 35 mmol/L Urine Random Chloride 72 mmol/L Urine Potassium Timed 49 mmol/L Test 08/21/16 05:50 White Blood Count 8.7 K/UL (4.8-10.8) Red Blood Count 3.12 M/UL (4.20-5.40) L Hemoglobin 9.5 G/DL (12.0-16.0) L Hematocrit 29.9 % (37.0-47.0) L Mean Corpuscular Volume 96 FL (80-99) Mean Corpuscular Hemoglobin 30.4 PG (27.0-31.0) Mean Corpuscular Hemoglobin Concent 31.7 G/DL (32.0-36.0) L Red Cell Distribution Width 15.5 % (11.6-14.8) H Platelet Count 92 K/UL (150-450) L Mean Platelet Volume 7.4 FL (6.5-10.1) Neutrophils (%) (Auto) % (45.0-75.0) Lymphocytes (%) (Auto) % (20.0-45.0) Monocytes (%) (Auto) % (1.0-10.0) Eosinophils (%) (Auto) % (0.0-3.0) Basophils (%) (Auto) % (0.0-2.0) Differential Total Cells Counted 100 Neutrophils % (Manual) 71 % (45-75) Lymphocytes % (Manual) 15 % (20-45) L Monocytes % (Manual) 7 % (1-10) Eosinophils % (Manual) 7 % (0-3) H Basophils % (Manual) 0 % (0-2) Band Neutrophils 0 % (0-8) Platelet Estimate Decreased L Platelet Morphology Normal Hypochromasia 2+ Anisocytosis 1+ Sodium Level 141 mEQ/L (135-145) Potassium Level 4.5 mEQ/L (3.4-4.9) Chloride Level 108 mEQ/L (98-107) H Carbon Dioxide Level 17 mEQ/L (20-30) L Anion Gap 16 (5-15) H Blood Urea Nitrogen 47 mg/dL (7-23) H Creatinine 1.8 mg/dL (0.5-0.9) H Estimat Glomerular Filtration Rate mL/min (>60) Glucose Level 167 mg/dL (74-106) H Calcium Level 9.4 mg/dL (8.6-10.2) Total Bilirubin 0.8 mg/dL (0.0-1.2) Aspartate Amino Transf (AST/SGOT) 41 U/L (5-40) H Alanine Aminotransferase (ALT/SGPT) 12 U/L (3-33) Alkaline Phosphatase 148 U/L (35-104) H Total Protein 6.7 g/dL (6.6-8.7) Albumin 2.5 g/dL (3.5-5.2) L Globulin 4.2 g/dL Albumin/Globulin Ratio 0.5 (1.0-2.7) L Height (Feet): 5 Height (Inches): 5.00 Weight (Pounds): 230 Medications Current Medications Medications (Trade) Dose Ordered Sig/Pavel Route PRN Reason Start Time Stop Time Status Last Admin Dose Admin Acetaminophen (Tylenol) 650 mg Q4H PRN ORAL fever 08/20/16 22:00 09/19/16 21:59 Albuterol/ Ipratropium (DuoNeb 0.5-3(2.5)mg/3ml) 3 ml Q4H PRN HHN Shortness of Breath 08/20/16 22:00 08/25/16 21:59 Dextrose STAT PRN IV Hypoglycemia 08/20/16 22:00 09/19/16 21:59 Gabapentin (Neurontin) 300 mg THREE TIMES A DAY ORAL 08/21/16 09:00 09/20/16 08:59 08/21/16 13:00 Insulin Aspart (NovoLOG) BEFORE MEALS AND HS SUBQ 08/21/16 06:30 09/20/16 06:29 08/21/16 12:05 Lactulose (Cephulac) 20 gm THREE TIMES A DAY ORAL 08/21/16 09:00 09/20/16 08:59 08/21/16 13:00 Metoprolol Tartrate (Lopressor) 25 mg EVERY 12 HOURS ORAL 08/21/16 09:00 09/20/16 08:59 08/21/16 08:21 Morphine Sulfate (Morphine Sulfate) 2 mg Q4H PRN IVP Moderate Pain (Pain Scale 4-6) 08/20/16 22:00 08/27/16 21:59 08/21/16 09:28 Nitroglycerin (Ntg) 0.4 mg Q5M PRN SL Prn Chest Pain 08/20/16 22:00 09/19/16 21:59 Ondansetron HCl (Zofran) 4 mg Q6H PRN IVP Nausea & Vomiting 08/20/16 22:00 09/19/16 21:59 Pantoprazole (Protonix) 40 mg DAILY ORAL 08/21/16 15:00 09/20/16 14:59 Polyethylene Glycol (Miralax) 17 gm DAILYPRN PRN ORAL Constipation 08/20/16 22:00 09/19/16 21:59 Sertraline HCl (Zoloft) 25 mg DAILY ORAL 08/21/16 09:00 09/20/16 08:59 08/21/16 08:20 Sodium Chloride (Sodium Chloride 1000ml bag) 1,000 ml @ 75 mls/hr [id number] IVLG 08/21/16 15:00 09/20/16 14:59 Temazepam (Restoril) 15 mg HSPRN PRN ORAL Insomnia 08/20/16 22:00 08/27/16 21:59 08/21/16 01:56 Vancomycin HCl 750 mg/Dextrose 275 ml @ 183.708 mls/hr Q24H IVPB 08/22/16 01:00 08/27/16 00:59 Assessment/Plan Problem List: (1) Sepsis ICD Codes: A41.9 - Sepsis, unspecified organism SNOMED: 64032357 Qualifiers: Qualified Codes: A41.9 - Sepsis, unspecified organism (2) COPD (chronic obstructive pulmonary disease) with emphysema ICD Codes: J43.9 - Emphysema, unspecified SNOMED: 28222461 (3) ARF (acute renal failure) ICD Codes: N17.9 - Acute kidney failure, unspecified SNOMED: 18224774 Qualifiers: Qualified Codes: N17.9 - Acute kidney failure, unspecified (4) DM (diabetes mellitus) ICD Codes: E11.9 - Type 2 diabetes mellitus without complications SNOMED: 14124467 (5) Cardiomegaly ICD Codes: I51.7 - Cardiomegaly SNOMED: 5453838 (6) Cirrhosis ICD Codes: K74.60 - Unspecified cirrhosis of liver SNOMED: 37582078 Assessment/Plan iv antibiotics IV fluids renal work up respiratory treatment check cultures f/u wbc bun/creatinine DIONI TRIANA August 21, 2016 15:57
--- NOTE | 2016-08-21 15:59 | Cardiology Report ---
APPROVED REPORT EKG Measurement Heart [id number] CO 184P34 [id number] Normal sinus rhythm Low voltage QRS Cannot rule out Anterior infarct, age undetermined Abnormal ECG
--- NOTE | 2016-08-21 18:10 | History & Physical ---
History and Physical History & Physicial Dictated for Int Med-Dr Tee no. [id number]. KATHARINA POND August 21, 2016 18:10
[2016-08-21 21:00] VITALS: BP 120/55
[2016-08-21] MEDS ORDERED: Levofloxacin 250mg/D5W 50ml IVPB SCH (21:00)
--- NOTE | 2016-08-21 23:28 | History and Physical Report ---
DATE OF ADMISSION: 08/20/2016 CHIEF COMPLAINT: The patient is a 76-year-old white female, presented with a chief complaint of fever. HISTORY OF PRESENT ILLNESS: The patient is a resident of [facility]. According to staff at [facility], the patient began to experience fevers yesterday on 08/20/2016. The patient presented to [place] [place] [facility]. The patient was found to have urinary tract infection. The patient was admitted for fever and urinary tract infection. PAST MEDICAL HISTORY: Significant for, 1. Type 2 diabetes. 2. Hypertension. 3. Obstructive sleep apnea. 4. Gastroesophageal reflux disease. 5. Hypercholesterolemia. 6. Cardiomyopathy. 7. Diabetic nephropathy. 8. Liver cirrhosis. 9. Fatty liver. PAST SURGICAL HISTORY: Significant for PEG placement with subsequent removal. CURRENT MEDICATIONS: 1. Vitamin C 500 mg one tablet p.o. daily. 2. Aspirin 81 mg one tablet p.o. daily. 3. Tylenol 650 mg p.o. q.6 h. p.r.n. 4. Atorvastatin 20 mg one tablet p.o. at bedtime. 5. Calcium carbonate one tablet p.o. daily. 6. Plavix 75 mg one tablet p.o. daily. 7. Cranberry 450 mg capsule p.o. daily. 8. Benadryl 25 mg one tablet p.o. q.8 h. p.r.n. 9. Colace 100 mg one tablet p.o. twice daily. 10. Iron sulfate 325 mg one tablet p.o. daily. 11. Lasix 20 mg one tablet p.o. daily. 12. Neurontin 300 mg one tablet p.o. 3 times daily. 13. [place] 10/325 mg one tablet p.o. q.6 h. p.r.n. 14. NovoLog sliding scale. 15. Levemir 25 mg one tablet p.o. daily at bedtime. 16. Lactulose 20 g p.o. three times daily. 17. Losartan 12.5 mg one tablet p.o. daily. 18. Magnesium chloride 64 mg p.o. daily. 19. Reglan 5 mg one tablet p.o. twice daily. 20. Metoprolol 25 mg one tablet p.o. twice daily. 21. Starlix 90 mg p.o. before meals. 22. Nitroglycerin 0.4 mg sublingual. 23. Zofran 4 mg p.o. q.6 h. p.r.n. 24. MiraLax 17 g p.o. daily. 25. Zantac 150 mg one tablet p.o. daily. 26. Zoloft 25 mg one tablet p.o. daily. 27. Simethicone 160 mg one tablet p.o. q.8 h. p.r.n. 28. Restoril 30 mg one tablet p.o. at bedtime p.r.n. 29. Multivitamin one tablet p.o. daily. ALLERGIES: Penicillin. SOCIAL HISTORY: The patient is . The patient is a resident of [facility]. The patient denies tobacco or alcohol use. REVIEW OF SYSTEMS: Constitutional: Unable to assess secondary to patient's mental status. PHYSICAL EXAMINATION: VITAL SIGNS: Temperature is 97.7 degrees, respirations 20, pulse 74, and blood pressure 140/69. GENERAL: The patient is a well-developed and well-nourished slightly obese white female, in no apparent distress. HEENT: Eyes, pupils are equal and responsive to light and accommodation. Extraocular movements are intact. NECK: Supple. No lymphadenopathy. CHEST: Lungs are clear to auscultation bilaterally without wheezes or rales. CARDIOVASCULAR: Regular rate. S1 and S2. No murmurs, rubs, or gallops. ABDOMEN: Soft, nontender, and nondistended. Positive bowel sounds. No hepatosplenomegaly. Currently, no rebound or guarding. EXTREMITIES: Negative for clubbing, cyanosis, or edema. EXTERNAL GENITALIA: Refused. NEUROLOGIC: Cranial nerves II through XII are grossly intact without focal deficits. Motor strength is 5/5 bilaterally. Deep tender reflexes are 2+ plantar. LABORATORY STUDIES: WBC is 14.8, hemoglobin 11.3, hematocrit 35.3, and platelets 120,000. Sodium is 139, potassium 4.9, chloride 102, CO2 19, BUN 46, creatinine 2.0, and glucose 142. Liver function tests, mildly elevated with an AST of 52 and alkaline phosphatase of 160. Total CK is 255 and MB fraction 5.2. Troponin is less than 0.3. BNP is 621. Urinalysis showed 2+ protein, 4+ occult blood, and 3+ leukocyte esterase with 20 to 30 WBCs. ASSESSMENT: This is a 76-year-old white female, 1. Fever. 2. Urinary tract infection. 3. Diabetes type 2. 4. Hypertension. 5. Anemia. 6. Obstructive sleep apnea. 7. Gastroesophageal reflux disease. 8. Hypercholesterolemia. 9. Cardiomyopathy. 10. Diabetic nephropathy. 11. Liver cirrhosis. TREATMENT: 1. Fever/urinary tract infection. The patient is started empirically on vancomycin and Levaquin. A urine culture is pending. An Infectious Disease consultation will be obtained with Dr. Stark. 2. Anemia. This is anemia secondary to chronic disease. 3. Diabetes type 2. Continue Levemir and NovoLog sliding scale as above. 4. Hypertension continue losartan as above. 5. Obstructive sleep apnea. 6. Gastroesophageal reflux disease. Continue Zantac as above. 7. Hypercholesterolemia. Continue atorvastatin as above. 8. Diabetic nephropathy. 9. Liver cirrhosis. Jed Guhtrie M.D. DR: Shanell JOB#: [id number] CC:
[2016-08-22] VITALS: BP 108/51
[2016-08-22] MEDS ORDERED: Vancomycin 750mg/D5W 275ml IVPB SCH ×2 (01:00)
[2016-08-22 04:00] VITALS: BP 101/55
[2016-08-22] MEDS: NovoLOG Insulin Flexpen SUBQ SCH ×4 (06:46→21:27)
[2016-08-22 07:17] LABS: MEAN CORPUSCULAR HEMOGLOBIN 31.5 PG (27.0-31.0); MEAN CORPUSCULAR HGB CONC 32.6 G/DL (32.0-36.0); MEAN CORPUSCULAR VOLUME 97 FL (80-99); MEAN PLATELET VOLUME 7.3 FL (6.5-10.1); PLATELET COUNT 81 K/UL (150-450); RED BLOOD COUNT 2.82 M/UL (4.20-5.40); RED CELL DISTRIBUTION WIDTH 15.7 % (11.6-14.8); WHITE BLOOD COUNT 6.3 K/UL (4.8-10.8)
[2016-08-22 07:40] LABS: FERRITIN 94 ng/mL (13-150)
[2016-08-22 07:41] VITALS: BP 125/67
[2016-08-22 07:41] LABS: ALANINE AMINOTRANSFERASE 15 U/L (3-33); ALBUMIN/GLOBULIN RATIO 0.5 (1.0-2.7); ANION GAP 13 (5-15); ASPARTATE AMINO TRANSFERASE 63 U/L (5-40); CALCIUM 9.5 mg/dL (8.6-10.2); CARBON DIOXIDE 19 mEQ/L (20-30); CHLORIDE 109 mEQ/L (98-107); CHOLESTEROL 106 mg/dL (< 200); CHOLESTEROL/HDL RATIO 2.8 (3.3-4.4); CREATININE 1.8 mg/dL (0.5-0.9); CRP QUANT 4.3 mg/dL (< 0.5); LDL CHOLESTEROL (CALC.) 52 mg/dL (60-99); MAGNESIUM 1.9 mg/dL (1.7-2.5); PHOSPHORUS 3.1 mg/dL (2.5-4.8); POTASSIUM 4.8 mEQ/L (3.4-4.9); SODIUM 141 mEQ/L (135-145); TOTAL PROTEIN 6.2 g/dL (6.6-8.7); URIC ACID 8.4 mg/dL (3.0-7.5)
[2016-08-22 07:51] LABS: HEMOLYSIS 3; IRON 45 ug/dL (37-145); TOTAL IRON BINDING CAPACITY 238 ug/dL (250-400)
[2016-08-22 09:16] LABS: HEMOGLOBIN A1C 5.2 % (< 6.0)
[2016-08-22] MEDS: Vancomycin 1gm/D5W 275ml IVPB SCH ×2 (09:37)
[2016-08-22] MEDS: Lactulose 20gm/30ml UDC ORAL SCH ×3 (09:37→18:00)
[2016-08-22] MEDS: Metoprolol 25mg tab ORAL SCH ×2 (09:37→21:00)
[2016-08-22] MEDS: Sertraline 50mg tab ORAL SCH (09:37)
[2016-08-22 11:21] VITALS: BP 116/41
[2016-08-22 12:01] LABS: ANISOCYTOSIS 1+; BAND NEUTROPHILS % (MANUAL) 0 % (0-8); BASOPHILS % (MANUAL) 0 % (0-2); EOSINOPHILS % (MANUAL) 10 % (0-3); HYPOCHROMASIA 1+; LYMPHOCYTES % (MANUAL) 22 % (20-45); NEUTROPHILS % (MANUAL) 62 % (45-75); PLATELET ESTIMATE DECREASED; PLATELET MORPHOLOGY NORMAL; TOTAL CELLS COUNTED 100
--- NOTE | 2016-08-22 14:54 | General Progress Note ---
Assessment/Plan Status: unchanged Status Narrative Cr 1.8 stable Assessment/Plan ARF (acute renal failure) , and possible CKD due to DM CT A/P 09/2015: 9 x 4 mm left proximal ureteral stone with mild left hydronephrosis. Primary Impression: Sepsis Rt leg cellulitis hx of PICC infection and CoNS recurrent bacteremia : Recurrent complicated ESBL(+) E.coli + UTI ( pt has dysuria ) Multiple superficial decubiti POA, not grossly infected Additional Impressions: UTI (urinary tract infection) Obesity High Ca Anemia Plan: Per ID Avoid Nephrotoxics Urine studies monitor renal parameters slow hydrate kidney LASHANDA per orders Subjective ROS Limited/Unobtainable: No Constitutional: Reports: malaise Allergies: Coded Allergies: PENICILLINS (Unverified Allergy, Unknown, 03/22/15) Objective Last 24 Hour Vital Signs Date Time Temp Pulse Resp B/P Pulse Ox O2 Delivery O2 Flow Rate FiO2 08/22/16 11:21 97.5 74 15 116/41 100 Room Air 08/22/16 09:58 82 16 Room Air 08/22/16 09:37 79 125/67 08/22/16 07:41 98.1 79 16 125/67 98 Room Air 08/22/16 04:00 97.9 68 20 101/55 99 Room Air 08/22/16 00:00 98.1 73 20 108/51 98 Room Air 08/21/16 21:00 98.1 84 20 120/55 97 Room Air 08/21/16 20:51 85 120/55 08/21/16 19:30 85 18 Room Air 08/21/16 15:37 97.9 89 22 117/53 98 Room Air Intake and Output 08/21/16 08/22/16 19:00 07:00 Intake Total 1655 ml 900 ml Output Total 800 ml 400 ml Balance 855 ml 500 ml Intake Oral 680 ml IV Total 975 ml 900 ml Output Urine Total 800 ml 400 ml Laboratory Tests 08/22/16 05:55: White Blood Count 6.3, Red Blood Count 2.82L, Hemoglobin 8.9L, Hematocrit 27.3L , Mean Corpuscular Volume 97, Mean Corpuscular Hemoglobin 31.5H, Mean Corpuscular Hemoglobin Concent 32.6, Red Cell Distribution Width 15.7H, Platelet Count 81L, Mean Platelet Volume 7.3, Neutrophils (%) (Auto) , Lymphocytes (%) (Auto) , Monocytes (%) (Auto) , Eosinophils (%) (Auto) , Basophils (%) (Auto) , Differential Total Cells Counted 100, Neutrophils % ( Manual) 62, Lymphocytes % (Manual) 22, Monocytes % (Manual) 6, Eosinophils % ( Manual) 10H, Basophils % (Manual) 0, Band Neutrophils 0, Platelet Estimate DecreasedL, Platelet Morphology Normal, Hypochromasia 1+, Anisocytosis 1+, Sodium Level 141, Potassium Level 4.8, Chloride Level 109H, Carbon Dioxide Level 19L, Anion Gap 13, Blood Urea Nitrogen 42H, Creatinine 1.8H, Estimat Glomerular Filtration Rate , Glucose Level 189H, Hemoglobin A1c 5.2, Uric Acid 8.4H, Calcium Level 9.5, Phosphorus Level 3.1, Magnesium Level 1.9, Iron Level 45, Total Iron Binding Capacity 238L, Percent Iron Saturation 19, Unsaturated Iron Binding 193, Ferritin 94, Total Bilirubin 0.6, Gamma Glutamyl Transpeptidase 171H, Aspartate Amino Transf (AST/SGOT) 63H, Alanine Aminotransferase (ALT/SGPT) 15, Alkaline Phosphatase 135H, Total Creatine Kinase 101, C-Reactive Protein, Quantitative 4.3H, Pro-B-Type Natriuretic Peptide 363, Total Protein 6.2L, Albumin 2.3L, Globulin 3.9, Albumin/Globulin Ratio 0.5L, Triglycerides Level 78, Cholesterol Level 106, LDL Cholesterol 52L, HDL Cholesterol 38, Cholesterol/HDL Ratio 2.8L, Vitamin B12 Level 1263H, Folate [Pending], Thyroid Stimulating Hormone (TSH) 1.880, Free Thyroxine 0.74L, Random Vancomycin Level 14.0 Height (Feet): 5 Height (Inches): 5.00 Weight (Pounds): 230 General Appearance: no apparent distress Cardiovascular: normal rate Respiratory/Chest: decreased breath sounds Abdomen: other - obese Objective other PE not changed ANDERS MOLINA August 22, 2016 14:54
--- NOTE | 2016-08-22 15:06 | Wound Care Consultation ---
Wound Assessment Wound Assessment #1: Wound Present on Admission: Yes New Wound: No Status Change of Wound: No Wound Location Body Site Modif: mid Wound Location Body Site: other - Sacrococcygeal Wound Type: pressure ulcer Callie Test: Does not Callie Pressure Ulcer Stage: I Rashes: Localized (Etiology Unk) Wound Length: 4.5 Wound Width: 5.5 Percent of Wound [place]/Red: 100 Wound Drainage Amount: None Wound Drainage Odor: None/Absent Tissue Surrounding Wound: Erythemic Wound General Appearance: Reddened Wound Assessment #2: Wound Number: #2 Wound Present on Admission: Yes New Wound: No Status Change of Wound: No Wound Location Body Site: abdominal fold - and breast fold Wound Type: rash Percent of Wound [place]/Red: 100 Wound Drainage Amount: None Wound Drainage Odor: None/Absent Tissue Surrounding Wound: Erythemic Wound General Appearance: Reddened Wound Comment #1 Sacrococcygeal Stage I pressure ulcer #2 Fungal rash under abdominal fold, Left and right breast folds Recommendation -Local wound care for stage I pressure ulcer -Local wound care for fungal Rash on abdominal fold and both breast folds -Keep clean and dry -Turn and reposition -Low air loss overlay mattress -Heel protector on both heels -Offload both heels -Optimize nutrition -Assess and f/u accordingly for any changes FAIZAN CRUZ RN August 22, 2016 15:06
[2016-08-22 15:33] VITALS: BP 99/44
[2016-08-22] MEDS ORDERED: Tubing IV Secondary IV ONE (16:11)
[2016-08-22] MEDS: Nystatin Powder 100,000 units/gm 15gm TOPIC SCH (18:02)
--- NOTE | 2016-08-22 18:38 | Infectious Diseases Prog Note ---
Assessment/Plan Assessment/Plan ASSESSMENT: 76 y/o female with: // Rt leg cellulitis // Fever // hx of PICC infection and CoNS recurrent bacteremia : // Recurrent complicated ESBL(+) E.coli + , repeat UCX : Colonizer - - CT A/P 09/2015: 9 x 4 mm left proximal ureteral stone with mild left hydronephrosis. // Multiple superficial decubitis POA, not grossly infected // CKD3 // Hypercalcemia // DM2 // Obesity // MRSA, VRE colonized // PCN allergy - tolerates carbapenems // Full Code PLAN: - cont pt on Vanco d# 3 ( 06/26 SP Cefepime d# 3 ) ( 06/11 SP IV vancomycin, meropenem d# 3 ) - f/u cultures ( Bl ) repeat - monitor CBC, temperatures - monitor BMP Subjective Constitutional: Denies: anorexia, chills, drenching sweats, fatigue, fever, no symptoms, other Allergies: Coded Allergies: PENICILLINS (Unverified Allergy, Unknown, 03/22/15) Objective Vital Signs Last 24 Hour Vital Signs Date Time Temp Pulse Resp B/P Pulse Ox O2 Delivery O2 Flow Rate FiO2 08/22/16 15:33 97.7 73 14 99/44 100 Room Air 08/22/16 11:21 97.5 74 15 116/41 100 Room Air 08/22/16 09:58 82 16 Room Air 08/22/16 09:37 79 125/67 08/22/16 07:41 98.1 79 16 125/67 98 Room Air 08/22/16 04:00 97.9 68 20 101/55 99 Room Air 08/22/16 00:00 98.1 73 20 108/51 98 Room Air 08/21/16 21:00 98.1 84 20 120/55 97 Room Air 08/21/16 20:51 85 120/55 08/21/16 19:30 85 18 Room Air Height (Feet): 5 Height (Inches): 5.00 Weight (Pounds): 230 HEENT: mucous membranes moist Respiratory/Chest: no respiratory distress Cardiovascular: regularly irregular Abdomen: soft, non tender Microbiology Date/Time Source Procedure Growth Status 08/20/16 19:40 Blood Blood Culture - Preliminary NO GROWTH AFTER 24 HOURS Resulted 08/20/16 19:25 Blood Blood Culture - Preliminary NO GROWTH AFTER 24 HOURS Resulted 08/20/16 21:12 Urine,Clean Catch Urine Culture - Preliminary Gram Negative Bacillus 1 Gram Negative Bacillus 2 Resulted Laboratory Tests Test 08/22/16 05:55 White Blood Count 6.3 K/UL (4.8-10.8) Red Blood Count 2.82 M/UL (4.20-5.40) L Hemoglobin 8.9 G/DL (12.0-16.0) L Hematocrit 27.3 % (37.0-47.0) L Mean Corpuscular Volume 97 FL (80-99) Mean Corpuscular Hemoglobin 31.5 PG (27.0-31.0) H Mean Corpuscular Hemoglobin Concent 32.6 G/DL (32.0-36.0) Red Cell Distribution Width 15.7 % (11.6-14.8) H Platelet Count 81 K/UL (150-450) L Mean Platelet Volume 7.3 FL (6.5-10.1) Neutrophils (%) (Auto) % (45.0-75.0) Lymphocytes (%) (Auto) % (20.0-45.0) Monocytes (%) (Auto) % (1.0-10.0) Eosinophils (%) (Auto) % (0.0-3.0) Basophils (%) (Auto) % (0.0-2.0) Differential Total Cells Counted 100 Neutrophils % (Manual) 62 % (45-75) Lymphocytes % (Manual) 22 % (20-45) Monocytes % (Manual) 6 % (1-10) Eosinophils % (Manual) 10 % (0-3) H Basophils % (Manual) 0 % (0-2) Band Neutrophils 0 % (0-8) Platelet Estimate Decreased L Platelet Morphology Normal Hypochromasia 1+ Anisocytosis 1+ Sodium Level 141 mEQ/L (135-145) Potassium Level 4.8 mEQ/L (3.4-4.9) Chloride Level 109 mEQ/L (98-107) H Carbon Dioxide Level 19 mEQ/L (20-30) L Anion Gap 13 (5-15) Blood Urea Nitrogen 42 mg/dL (7-23) H Creatinine 1.8 mg/dL (0.5-0.9) H Estimat Glomerular Filtration Rate mL/min (>60) Glucose Level 189 mg/dL (74-106) H Hemoglobin A1c 5.2 % (< 6.0) Uric Acid 8.4 mg/dL (3.0-7.5) H Calcium Level 9.5 mg/dL (8.6-10.2) Phosphorus Level 3.1 mg/dL (2.5-4.8) Magnesium Level 1.9 mg/dL (1.7-2.5) Iron Level 45 ug/dL (37-145) Total Iron Binding Capacity 238 ug/dL (250-400) L Percent Iron Saturation 19 % (15-50) Unsaturated Iron Binding 193 ug/dL (112-346) Ferritin 94 ng/mL (13-150) Total Bilirubin 0.6 mg/dL (0.0-1.2) Gamma Glutamyl Transpeptidase 171 U/L (5-36) H Aspartate Amino Transf (AST/SGOT) 63 U/L (5-40) H Alanine Aminotransferase (ALT/SGPT) 15 U/L (3-33) Alkaline Phosphatase 135 U/L (35-104) H Total Creatine Kinase 101 U/L (26-140) C-Reactive Protein, Quantitative 4.3 mg/dL (< 0.5) H Pro-B-Type Natriuretic Peptide 363 pg/mL (0-450) Total Protein 6.2 g/dL (6.6-8.7) L Albumin 2.3 g/dL (3.5-5.2) L Globulin 3.9 g/dL Albumin/Globulin Ratio 0.5 (1.0-2.7) L Triglycerides Level 78 mg/dL (< 150) Cholesterol Level 106 mg/dL (< 200) LDL Cholesterol 52 mg/dL (60-99) L HDL Cholesterol 38 mg/dL (> 60) Cholesterol/HDL Ratio 2.8 (3.3-4.4) L Vitamin B12 Level 1263 pg/mL (211-946) H Folate Pending Thyroid Stimulating Hormone (TSH) 1.880 uIU/mL (0.300-4.500) Free Thyroxine 0.74 ng/dL (0.86-1.85) L Random Vancomycin Level 14.0 ug/mL Current Medications Medications (Trade) Dose Ordered Sig/Pavel Route PRN Reason Start Time Stop Time Status Last Admin Dose Admin Acetaminophen (Tylenol) 650 mg Q4H PRN ORAL fever 08/20/16 22:00 09/19/16 21:59 Albuterol/ Ipratropium (DuoNeb 0.5-3(2.5)mg/3ml) 3 ml Q4H PRN HHN Shortness of Breath 08/20/16 22:00 08/25/16 21:59 Dextrose STAT PRN IV Hypoglycemia 08/20/16 22:00 09/19/16 21:59 Gabapentin (Neurontin) 300 mg THREE TIMES A DAY ORAL 08/21/16 09:00 09/20/16 08:59 08/22/16 18:00 Insulin Aspart (NovoLOG) BEFORE MEALS AND HS SUBQ 08/21/16 06:30 09/20/16 06:29 08/22/16 16:37 Lactulose (Cephulac) 20 gm THREE TIMES A DAY ORAL 08/21/16 09:00 09/20/16 08:59 08/22/16 18:00 Metoprolol Tartrate (Lopressor) 25 mg EVERY 12 HOURS ORAL 08/21/16 09:00 09/20/16 08:59 08/22/16 09:37 Morphine Sulfate (Morphine Sulfate) 2 mg Q4H PRN IVP Moderate Pain (Pain Scale 4-6) 08/20/16 22:00 08/27/16 21:59 08/21/16 09:28 Nitroglycerin (Ntg) 0.4 mg Q5M PRN SL Prn Chest Pain 08/20/16 22:00 09/19/16 21:59 Nystatin (Nystop Powder) 1 applic THREE TIMES A DAY TOPIC 08/22/16 18:00 09/21/16 17:59 08/22/16 18:02 Ondansetron HCl (Zofran) 4 mg Q6H PRN IVP Nausea & Vomiting 08/20/16 22:00 09/19/16 21:59 Pantoprazole 40 mg 40 mg DAILY ORAL 08/21/16 15:00 09/20/16 14:59 08/22/16 09:38 Polyethylene Glycol (Miralax) 17 gm DAILYPRN PRN ORAL Constipation 08/20/16 22:00 09/19/16 21:59 Sertraline HCl (Zoloft) 25 mg DAILY ORAL 08/21/16 09:00 09/20/16 08:59 08/22/16 09:37 Sodium Chloride (Sodium Chloride 1000ml bag) 1,000 ml @ 75 mls/hr [id number] IVLG 08/21/16 15:00 09/20/16 14:59 08/22/16 17:54 Temazepam (Restoril) 15 mg HSPRN PRN ORAL Insomnia 08/20/16 22:00 08/27/16 21:59 08/21/16 22:06 Vancomycin HCl/ Dextrose (Vancomycin/D5W) 275 ml @ 183.708 mls/hr Q24H IVPB 08/22/16 09:00 08/27/16 08:59 08/22/16 09:37 LYLA ROJAS M.D. August 22, 2016 18:38
--- NOTE | 2016-08-22 18:50 | General Progress Note ---
Assessment/Plan Assessment/Plan Assessment - Obesity - DURANT with cirrhosis - coagulopathy - fever/leukocytosis/ UTI - DM - HTN - YELENA - CHF Recommendations - Check AFP - check abd u/s - abx - low salt diet Subjective Allergies: Coded Allergies: PENICILLINS (Unverified Allergy, Unknown, 03/22/15) Objective Last 24 Hour Vital Signs Date Time Temp Pulse Resp B/P Pulse Ox O2 Delivery O2 Flow Rate FiO2 08/22/16 15:33 97.7 73 14 99/44 100 Room Air 08/22/16 11:21 97.5 74 15 116/41 100 Room Air 08/22/16 09:58 82 16 Room Air 08/22/16 09:37 79 125/67 08/22/16 07:41 98.1 79 16 125/67 98 Room Air 08/22/16 04:00 97.9 68 20 101/55 99 Room Air 08/22/16 00:00 98.1 73 20 108/51 98 Room Air 08/21/16 21:00 98.1 84 20 120/55 97 Room Air 08/21/16 20:51 85 120/55 08/21/16 19:30 85 18 Room Air Intake and Output 08/21/16 08/22/16 19:00 07:00 Intake Total 1655 ml 900 ml Output Total 800 ml 400 ml Balance 855 ml 500 ml Intake Oral 680 ml IV Total 975 ml 900 ml Output Urine Total 800 ml 400 ml Laboratory Tests 08/22/16 05:55: White Blood Count 6.3, Red Blood Count 2.82L, Hemoglobin 8.9L, Hematocrit 27.3L , Mean Corpuscular Volume 97, Mean Corpuscular Hemoglobin 31.5H, Mean Corpuscular Hemoglobin Concent 32.6, Red Cell Distribution Width 15.7H, Platelet Count 81L, Mean Platelet Volume 7.3, Neutrophils (%) (Auto) , Lymphocytes (%) (Auto) , Monocytes (%) (Auto) , Eosinophils (%) (Auto) , Basophils (%) (Auto) , Differential Total Cells Counted 100, Neutrophils % ( Manual) 62, Lymphocytes % (Manual) 22, Monocytes % (Manual) 6, Eosinophils % ( Manual) 10H, Basophils % (Manual) 0, Band Neutrophils 0, Platelet Estimate DecreasedL, Platelet Morphology Normal, Hypochromasia 1+, Anisocytosis 1+, Sodium Level 141, Potassium Level 4.8, Chloride Level 109H, Carbon Dioxide Level 19L, Anion Gap 13, Blood Urea Nitrogen 42H, Creatinine 1.8H, Estimat Glomerular Filtration Rate , Glucose Level 189H, Hemoglobin A1c 5.2, Uric Acid 8.4H, Calcium Level 9.5, Phosphorus Level 3.1, Magnesium Level 1.9, Iron Level 45, Total Iron Binding Capacity 238L, Percent Iron Saturation 19, Unsaturated Iron Binding 193, Ferritin 94, Total Bilirubin 0.6, Gamma Glutamyl Transpeptidase 171H, Aspartate Amino Transf (AST/SGOT) 63H, Alanine Aminotransferase (ALT/SGPT) 15, Alkaline Phosphatase 135H, Total Creatine Kinase 101, C-Reactive Protein, Quantitative 4.3H, Pro-B-Type Natriuretic Peptide 363, Total Protein 6.2L, Albumin 2.3L, Globulin 3.9, Albumin/Globulin Ratio 0.5L, Triglycerides Level 78, Cholesterol Level 106, LDL Cholesterol 52L, HDL Cholesterol 38, Cholesterol/HDL Ratio 2.8L, Vitamin B12 Level 1263H, Folate [Pending], Thyroid Stimulating Hormone (TSH) 1.880, Free Thyroxine 0.74L, Random Vancomycin Level 14.0 Height (Feet): 5 Height (Inches): 5.00 Weight (Pounds): 230 KIERSTEN DAVIES August 22, 2016 18:50
--- NOTE | 2016-08-22 19:24 | Internal Med Progress Note ---
Subjective Date of Service: August 22, 2016 Physician Name Pond,Katharina Attending Physician Rl Tee MD Current Medications Medications (Trade) Dose Ordered Sig/Pavel Route PRN Reason Start Time Stop Time Status Last Admin Dose Admin Acetaminophen (Tylenol) 650 mg Q4H PRN ORAL fever 08/20/16 22:00 09/19/16 21:59 Albuterol/ Ipratropium (DuoNeb 0.5-3(2.5)mg/3ml) 3 ml Q4H PRN HHN Shortness of Breath 08/20/16 22:00 08/25/16 21:59 Dextrose STAT PRN IV Hypoglycemia 08/20/16 22:00 09/19/16 21:59 Gabapentin (Neurontin) 300 mg THREE TIMES A DAY ORAL 08/21/16 09:00 09/20/16 08:59 08/22/16 18:00 Insulin Aspart (NovoLOG) BEFORE MEALS AND HS SUBQ 08/21/16 06:30 09/20/16 06:29 08/22/16 16:37 Lactulose (Cephulac) 20 gm THREE TIMES A DAY ORAL 08/21/16 09:00 09/20/16 08:59 08/22/16 18:00 Metoprolol Tartrate (Lopressor) 25 mg EVERY 12 HOURS ORAL 08/21/16 09:00 09/20/16 08:59 08/22/16 09:37 Morphine Sulfate (Morphine Sulfate) 2 mg Q4H PRN IVP Moderate Pain (Pain Scale 4-6) 08/20/16 22:00 08/27/16 21:59 08/21/16 09:28 Nitroglycerin (Ntg) 0.4 mg Q5M PRN SL Prn Chest Pain 08/20/16 22:00 09/19/16 21:59 Nystatin (Nystop Powder) 1 applic THREE TIMES A DAY TOPIC 08/22/16 18:00 09/21/16 17:59 08/22/16 18:02 Ondansetron HCl (Zofran) 4 mg Q6H PRN IVP Nausea & Vomiting 08/20/16 22:00 09/19/16 21:59 Pantoprazole 40 mg 40 mg DAILY ORAL 08/21/16 15:00 09/20/16 14:59 08/22/16 09:38 Polyethylene Glycol (Miralax) 17 gm DAILYPRN PRN ORAL Constipation 08/20/16 22:00 09/19/16 21:59 Sertraline HCl (Zoloft) 25 mg DAILY ORAL 08/21/16 09:00 09/20/16 08:59 08/22/16 09:37 Sodium Chloride (Sodium Chloride 1000ml bag) 1,000 ml @ 75 mls/hr [id number] IVLG 08/21/16 15:00 09/20/16 14:59 08/22/16 17:54 Temazepam (Restoril) 15 mg HSPRN PRN ORAL Insomnia 08/20/16 22:00 08/27/16 21:59 08/21/16 22:06 Vancomycin HCl/ Dextrose (Vancomycin/D5W) 275 ml @ 183.708 mls/hr Q24H IVPB 08/22/16 09:00 08/27/16 08:59 08/22/16 09:37 Allergies: Coded Allergies: PENICILLINS (Unverified Allergy, Unknown, 03/22/15) ROS Limited/Unobtainable: Yes Subjective 76 YO F admitted with fever. Now UTI. Cover for Int Med-Dr Tee. Objective Last Vital Signs Date Time Temp Pulse Resp B/P Pulse Ox O2 Delivery O2 Flow Rate FiO2 08/22/16 15:33 97.7 73 14 99/44 100 Room Air 08/21/16 08:35 21 Laboratory Tests Test 08/22/16 05:55 White Blood Count 6.3 K/UL (4.8-10.8) Red Blood Count 2.82 M/UL (4.20-5.40) L Hemoglobin 8.9 G/DL (12.0-16.0) L Hematocrit 27.3 % (37.0-47.0) L Mean Corpuscular Volume 97 FL (80-99) Mean Corpuscular Hemoglobin 31.5 PG (27.0-31.0) H Mean Corpuscular Hemoglobin Concent 32.6 G/DL (32.0-36.0) Red Cell Distribution Width 15.7 % (11.6-14.8) H Platelet Count 81 K/UL (150-450) L Mean Platelet Volume 7.3 FL (6.5-10.1) Neutrophils (%) (Auto) % (45.0-75.0) Lymphocytes (%) (Auto) % (20.0-45.0) Monocytes (%) (Auto) % (1.0-10.0) Eosinophils (%) (Auto) % (0.0-3.0) Basophils (%) (Auto) % (0.0-2.0) Differential Total Cells Counted 100 Neutrophils % (Manual) 62 % (45-75) Lymphocytes % (Manual) 22 % (20-45) Monocytes % (Manual) 6 % (1-10) Eosinophils % (Manual) 10 % (0-3) H Basophils % (Manual) 0 % (0-2) Band Neutrophils 0 % (0-8) Platelet Estimate Decreased L Platelet Morphology Normal Hypochromasia 1+ Anisocytosis 1+ Sodium Level 141 mEQ/L (135-145) Potassium Level 4.8 mEQ/L (3.4-4.9) Chloride Level 109 mEQ/L (98-107) H Carbon Dioxide Level 19 mEQ/L (20-30) L Anion Gap 13 (5-15) Blood Urea Nitrogen 42 mg/dL (7-23) H Creatinine 1.8 mg/dL (0.5-0.9) H Estimat Glomerular Filtration Rate mL/min (>60) Glucose Level 189 mg/dL (74-106) H Hemoglobin A1c 5.2 % (< 6.0) Uric Acid 8.4 mg/dL (3.0-7.5) H Calcium Level 9.5 mg/dL (8.6-10.2) Phosphorus Level 3.1 mg/dL (2.5-4.8) Magnesium Level 1.9 mg/dL (1.7-2.5) Iron Level 45 ug/dL (37-145) Total Iron Binding Capacity 238 ug/dL (250-400) L Percent Iron Saturation 19 % (15-50) Unsaturated Iron Binding 193 ug/dL (112-346) Ferritin 94 ng/mL (13-150) Total Bilirubin 0.6 mg/dL (0.0-1.2) Gamma Glutamyl Transpeptidase 171 U/L (5-36) H Aspartate Amino Transf (AST/SGOT) 63 U/L (5-40) H Alanine Aminotransferase (ALT/SGPT) 15 U/L (3-33) Alkaline Phosphatase 135 U/L (35-104) H Total Creatine Kinase 101 U/L (26-140) C-Reactive Protein, Quantitative 4.3 mg/dL (< 0.5) H Pro-B-Type Natriuretic Peptide 363 pg/mL (0-450) Total Protein 6.2 g/dL (6.6-8.7) L Albumin 2.3 g/dL (3.5-5.2) L Globulin 3.9 g/dL Albumin/Globulin Ratio 0.5 (1.0-2.7) L Triglycerides Level 78 mg/dL (< 150) Cholesterol Level 106 mg/dL (< 200) LDL Cholesterol 52 mg/dL (60-99) L HDL Cholesterol 38 mg/dL (> 60) Cholesterol/HDL Ratio 2.8 (3.3-4.4) L Vitamin B12 Level 1263 pg/mL (211-946) H Folate Pending Thyroid Stimulating Hormone (TSH) 1.880 uIU/mL (0.300-4.500) Free Thyroxine 0.74 ng/dL (0.86-1.85) L Random Vancomycin Level 14.0 ug/mL Microbiology Date/Time Source Procedure Growth Status 08/20/16 19:40 Blood Blood Culture - Preliminary NO GROWTH AFTER 24 HOURS Resulted 08/20/16 19:25 Blood Blood Culture - Preliminary NO GROWTH AFTER 24 HOURS Resulted 08/20/16 21:12 Urine,Clean Catch Urine Culture - Preliminary Gram Negative Bacillus 1 Gram Negative Bacillus 2 Resulted Intake and Output 08/21/16 08/22/16 19:00 07:00 Intake Total 1655 ml 900 ml Output Total 800 ml 400 ml Balance 855 ml 500 ml Intake Oral 680 ml IV Total 975 ml 900 ml Output Urine Total 800 ml 400 ml Objective General: alert, cooperative, no distress, appears stated age Head: normocephalic, without obvious abnormality, atraumatic Eyes: conjunctivae/corneas clear. PERRL, EOM's intact Throat: lips, mucosa, and tongue normal. MMM Neck: supple, symmetrical, trachea midline, and no JVD Lungs: clear to auscultation bilaterally Heart: regular rate and rhythm, S1, S2 normal, no murmur, click, rub or gallop Abdomen: soft, non-tender, non-distended, bowel sounds normal; no masses or organomegaly Extremities: extremities normal, atraumatic, no cyanosis or edema Pulses: 2+ and symmetric Skin: skin color, texture, turgor normal; no rashes or lesions Neurologic: grossly normal, no focal deficits Assessment/Plan Problem List: (1) UTI (urinary tract infection) Assessment & Plan: Gram neg linda. See ID note. Await ID and Sensitivity. (2) Fever Assessment & Plan: ?sepsis? Await blood culture (3) Diabetes mellitus Assessment & Plan: Cont novolog sliding scale. (4) Hypertension Assessment & Plan: Cont lopressor. 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
--- NOTE | 2016-08-22 20:29 | Pulmonology Progress Note ---
Assessment/Plan Problems: (1) Sepsis (2) COPD (chronic obstructive pulmonary disease) with emphysema (3) ARF (acute renal failure) (4) Cellulitis (5) Cirrhosis (6) Cardiomegaly (7) DM (diabetes mellitus) (8) Sleep apnea Assessment/Plan iv fluids IV antibiotics check electrolytes dvt prophylaxis check labs check cultures Subjective ROS Limited/Unobtainable: No Allergies: Coded Allergies: PENICILLINS (Unverified Allergy, Unknown, 03/22/15) Objective Last 24 Hour Vital Signs Date Time Temp Pulse Resp B/P Pulse Ox O2 Delivery O2 Flow Rate FiO2 08/22/16 19:52 80 16 Room Air 08/22/16 15:33 97.7 73 14 99/44 100 Room Air 08/22/16 11:21 97.5 74 15 116/41 100 Room Air 08/22/16 09:58 82 16 Room Air 08/22/16 09:37 79 125/67 08/22/16 07:41 98.1 79 16 125/67 98 Room Air 08/22/16 04:00 97.9 68 20 101/55 99 Room Air 08/22/16 00:00 98.1 73 20 108/51 98 Room Air 08/21/16 21:00 98.1 84 20 120/55 97 Room Air 08/21/16 20:51 85 120/55 Intake and Output 08/21/16 08/22/16 19:00 07:00 Intake Total 1655 ml 900 ml Output Total 800 ml 400 ml Balance 855 ml 500 ml Intake Oral 680 ml IV Total 975 ml 900 ml Output Urine Total 800 ml 400 ml General Appearance: WD/WN HEENT: normocephalic, atraumatic Respiratory/Chest: chest wall non-tender, lungs clear Breasts: no masses Cardiovascular: normal peripheral pulses Extremities: no cyanosis 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 Lymphatic: no neck adenopathy Microbiology Date/Time Source Procedure Growth Status 08/20/16 19:40 Blood Blood Culture - Preliminary NO GROWTH AFTER 24 HOURS Resulted 08/20/16 19:25 Blood Blood Culture - Preliminary NO GROWTH AFTER 24 HOURS Resulted 08/20/16 21:12 Urine,Clean Catch Urine Culture - Preliminary Gram Negative Bacillus 1 Gram Negative Bacillus 2 Resulted Laboratory Tests 08/22/16 05:55: White Blood Count 6.3, Red Blood Count 2.82L, Hemoglobin 8.9L, Hematocrit 27.3L , Mean Corpuscular Volume 97, Mean Corpuscular Hemoglobin 31.5H, Mean Corpuscular Hemoglobin Concent 32.6, Red Cell Distribution Width 15.7H, Platelet Count 81L, Mean Platelet Volume 7.3, Neutrophils (%) (Auto) , Lymphocytes (%) (Auto) , Monocytes (%) (Auto) , Eosinophils (%) (Auto) , Basophils (%) (Auto) , Differential Total Cells Counted 100, Neutrophils % ( Manual) 62, Lymphocytes % (Manual) 22, Monocytes % (Manual) 6, Eosinophils % ( Manual) 10H, Basophils % (Manual) 0, Band Neutrophils 0, Platelet Estimate DecreasedL, Platelet Morphology Normal, Hypochromasia 1+, Anisocytosis 1+, Sodium Level 141, Potassium Level 4.8, Chloride Level 109H, Carbon Dioxide Level 19L, Anion Gap 13, Blood Urea Nitrogen 42H, Creatinine 1.8H, Estimat Glomerular Filtration Rate , Glucose Level 189H, Hemoglobin A1c 5.2, Uric Acid 8.4H, Calcium Level 9.5, Phosphorus Level 3.1, Magnesium Level 1.9, Iron Level 45, Total Iron Binding Capacity 238L, Percent Iron Saturation 19, Unsaturated Iron Binding 193, Ferritin 94, Total Bilirubin 0.6, Gamma Glutamyl Transpeptidase 171H, Aspartate Amino Transf (AST/SGOT) 63H, Alanine Aminotransferase (ALT/SGPT) 15, Alkaline Phosphatase 135H, Total Creatine Kinase 101, C-Reactive Protein, Quantitative 4.3H, Pro-B-Type Natriuretic Peptide 363, Total Protein 6.2L, Albumin 2.3L, Globulin 3.9, Albumin/Globulin Ratio 0.5L, Triglycerides Level 78, Cholesterol Level 106, LDL Cholesterol 52L, HDL Cholesterol 38, Cholesterol/HDL Ratio 2.8L, Vitamin B12 Level 1263H, Folate [Pending], Thyroid Stimulating Hormone (TSH) 1.880, Free Thyroxine 0.74L, Random Vancomycin Level 14.0 Current Medications Medications (Trade) Dose Ordered Sig/Pavel Route PRN Reason Start Time Stop Time Status Last Admin Dose Admin Acetaminophen (Tylenol) 650 mg Q4H PRN ORAL fever 08/20/16 22:00 09/19/16 21:59 Albuterol/ Ipratropium (DuoNeb 0.5-3(2.5)mg/3ml) 3 ml Q4H PRN HHN Shortness of Breath 08/20/16 22:00 08/25/16 21:59 Dextrose STAT PRN IV Hypoglycemia 08/20/16 22:00 09/19/16 21:59 Gabapentin (Neurontin) 300 mg THREE TIMES A DAY ORAL 08/21/16 09:00 09/20/16 08:59 08/22/16 18:00 Insulin Aspart (NovoLOG) BEFORE MEALS AND HS SUBQ 08/21/16 06:30 09/20/16 06:29 08/22/16 16:37 Lactulose (Cephulac) 20 gm THREE TIMES A DAY ORAL 08/21/16 09:00 09/20/16 08:59 08/22/16 18:00 Metoprolol Tartrate (Lopressor) 25 mg EVERY 12 HOURS ORAL 08/21/16 09:00 09/20/16 08:59 08/22/16 09:37 Morphine Sulfate (Morphine Sulfate) 2 mg Q4H PRN IVP Moderate Pain (Pain Scale 4-6) 08/20/16 22:00 08/27/16 21:59 08/21/16 09:28 Nitroglycerin (Ntg) 0.4 mg Q5M PRN SL Prn Chest Pain 08/20/16 22:00 09/19/16 21:59 Nystatin (Nystop Powder) 1 applic THREE TIMES A DAY TOPIC 08/22/16 18:00 09/21/16 17:59 08/22/16 18:02 Ondansetron HCl (Zofran) 4 mg Q6H PRN IVP Nausea & Vomiting 08/20/16 22:00 09/19/16 21:59 Pantoprazole 40 mg 40 mg DAILY ORAL 08/21/16 15:00 09/20/16 14:59 08/22/16 09:38 Polyethylene Glycol (Miralax) 17 gm DAILYPRN PRN ORAL Constipation 08/20/16 22:00 09/19/16 21:59 Sertraline HCl (Zoloft) 25 mg DAILY ORAL 08/21/16 09:00 09/20/16 08:59 08/22/16 09:37 Sodium Chloride (Sodium Chloride 1000ml bag) 1,000 ml @ 75 mls/hr [id number] IVLG 08/21/16 15:00 09/20/16 14:59 08/22/16 17:54 Temazepam (Restoril) 15 mg HSPRN PRN ORAL Insomnia 08/20/16 22:00 08/27/16 21:59 08/21/16 22:06 Vancomycin HCl/ Dextrose (Vancomycin/D5W) 275 ml @ 183.708 mls/hr Q24H IVPB 08/22/16 09:00 08/27/16 08:59 08/22/16 09:37 DIONI TRIANA August 22, 2016 20:29
[2016-08-22 21:00] VITALS: BP 129/59
[2016-08-23] MEDS: NovoLOG Insulin Flexpen SUBQ SCH ×4 (06:04→20:56)
[2016-08-23 07:13] LABS: ANION GAP 11 (5-15); CALCIUM 9.8 mg/dL (8.6-10.2); CARBON DIOXIDE 18 mEQ/L (20-30); CHLORIDE 110 mEQ/L (98-107); CREATININE 1.2 mg/dL (0.5-0.9); HEMOLYSIS 7; POTASSIUM 4.9 mEQ/L (3.4-4.9); SODIUM 139 mEQ/L (135-145)
[2016-08-23 07:16] LABS: EOSINOPHILS % (AUTO) 14.1 % (0.0-3.0); LYMPHOCYTES % (AUTO) 25.8 % (20.0-45.0); MEAN CORPUSCULAR HGB CONC 31.7 G/DL (32.0-36.0); MEAN CORPUSCULAR VOLUME 98 FL (80-99); MEAN PLATELET VOLUME 7.9 FL (6.5-10.1); MONOCYTES % (AUTO) 7.9 % (1.0-10.0); NEUTROPHILS % (AUTO) 51.2 % (45.0-75.0); PLATELET COUNT 102 K/UL (150-450); RED BLOOD COUNT 2.79 M/UL (4.20-5.40); RED CELL DISTRIBUTION WIDTH 15.4 % (11.6-14.8)
[2016-08-23 08:08] VITALS: BP 128/57
[2016-08-23] MEDS: Vancomycin 1gm/D5W 275ml IVPB SCH ×2 (08:50)
[2016-08-23] MEDS: Lactulose 20gm/30ml UDC ORAL SCH ×3 (09:00→17:17)
[2016-08-23] MEDS: Metoprolol 25mg tab ORAL SCH ×2 (09:19→20:09)
[2016-08-23] MEDS: Sertraline 50mg tab ORAL SCH (09:19)
[2016-08-23] MEDS: Nystatin Powder 100,000 units/gm 15gm TOPIC SCH ×3 (09:20→17:16)
--- NOTE | 2016-08-23 10:48 | General Progress Note ---
Assessment/Plan Status: stable Assessment/Plan ARF (acute renal failure) , and possible CKD due to DM CT A/P 09/2015: 9 x 4 mm left proximal ureteral stone with mild left hydronephrosis. Primary Impression: Sepsis Rt leg cellulitis hx of PICC infection and CoNS recurrent bacteremia : Recurrent complicated ESBL(+) E.coli + UTI ( pt has dysuria ) Multiple superficial decubiti POA, not grossly infected Additional Impressions: UTI (urinary tract infection) Obesity High Ca Anemia Plan: Per ID Avoid Nephrotoxics Urine studies monitor renal parameters slow hydrate kidney LASHANDA- pending per orders Subjective ROS Limited/Unobtainable: No Constitutional: Reports: malaise Allergies: Coded Allergies: PENICILLINS (Unverified Allergy, Unknown, 03/22/15) Objective Last 24 Hour Vital Signs Date Time Temp Pulse Resp B/P Pulse Ox O2 Delivery O2 Flow Rate FiO2 08/23/16 09:19 74 128/57 08/23/16 08:08 97.6 74 21 128/57 100 Room Air 08/23/16 08:07 73 16 Room Air 08/22/16 21:00 97.5 69 20 129/59 97 Room Air 08/22/16 21:00 80 99/44 08/22/16 19:52 80 16 Room Air 08/22/16 15:33 97.7 73 14 99/44 100 Room Air 08/22/16 11:21 97.5 74 15 116/41 100 Room Air Intake and Output 08/22/16 08/23/16 19:00 07:00 Intake Total 2000.000 ml 637.5 ml Output Total 1050 ml 800 ml Balance 950.000 ml -162.5 ml Intake Oral 1200 ml IV Total 800.000 ml 637.5 ml Output Urine Total 1050 ml 800 ml # Bowel Movements 2 Laboratory Tests 08/23/16 06:15: White Blood Count 6.0, Red Blood Count 2.79L, Hemoglobin 8.6L, Hematocrit 27.2L , Mean Corpuscular Volume 98, Mean Corpuscular Hemoglobin 31.0, Mean Corpuscular Hemoglobin Concent 31.7L, Red Cell Distribution Width 15.4H, Platelet Count 102L, Mean Platelet Volume 7.9, Neutrophils (%) (Auto) 51.2, Lymphocytes (%) (Auto) 25.8, Monocytes (%) (Auto) 7.9, Eosinophils (%) (Auto) 14.1H, Basophils (%) (Auto) 1.0, Sodium Level 139, Potassium Level 4.9, Chloride Level 110H, Carbon Dioxide Level 18L, Anion Gap 11, Blood Urea Nitrogen 34H, Creatinine 1.2H, Estimat Glomerular Filtration Rate , Glucose Level 140H, Plasma/Serum Osmolality [Pending], Calcium Level 9.8, Alpha Fetoprotein [Pending] Height (Feet): 5 Height (Inches): 5.00 Weight (Pounds): 230 General Appearance: no apparent distress Cardiovascular: regular rhythm Respiratory/Chest: decreased breath sounds Abdomen: other - obese Objective other PE not changed ANDERS MOLINA August 23, 2016 10:47
[2016-08-23 11:31] VITALS: BP 133/76
[2016-08-23 15:47] VITALS: BP 145/76
--- NOTE | 2016-08-23 15:47 | Internal Med Progress Note ---
Subjective Date of Service: August 23, 2016 Physician Name Jed Pond Attending Physician Rl Tee MD Current Medications Medications (Trade) Dose Ordered Sig/Pavel Route PRN Reason Start Time Stop Time Status Last Admin Dose Admin Acetaminophen (Tylenol) 650 mg Q4H PRN ORAL fever 08/20/16 22:00 09/19/16 21:59 Albuterol/ Ipratropium (DuoNeb 0.5-3(2.5)mg/3ml) 3 ml Q4H PRN HHN Shortness of Breath 08/20/16 22:00 08/25/16 21:59 Dextrose STAT PRN IV Hypoglycemia 08/20/16 22:00 09/19/16 21:59 Gabapentin (Neurontin) 300 mg THREE TIMES A DAY ORAL 08/21/16 09:00 09/20/16 08:59 08/23/16 13:03 Insulin Aspart (NovoLOG) BEFORE MEALS AND HS SUBQ 08/21/16 06:30 09/20/16 06:29 08/23/16 11:34 Lactulose (Cephulac) 20 gm THREE TIMES A DAY ORAL 08/21/16 09:00 09/20/16 08:59 08/22/16 18:00 Metoprolol Tartrate (Lopressor) 25 mg EVERY 12 HOURS ORAL 08/21/16 09:00 09/20/16 08:59 08/23/16 09:19 Morphine Sulfate (Morphine Sulfate) 2 mg Q4H PRN IVP Moderate Pain (Pain Scale 4-6) 08/20/16 22:00 08/27/16 21:59 08/21/16 09:28 Nitroglycerin (Ntg) 0.4 mg Q5M PRN SL Prn Chest Pain 08/20/16 22:00 09/19/16 21:59 Nystatin (Nystop Powder) 1 applic THREE TIMES A DAY TOPIC 08/22/16 18:00 09/21/16 17:59 08/23/16 13:03 Ondansetron HCl (Zofran) 4 mg Q6H PRN IVP Nausea & Vomiting 08/20/16 22:00 09/19/16 21:59 Pantoprazole 40 mg 40 mg DAILY ORAL 08/21/16 15:00 09/20/16 14:59 08/23/16 09:19 Polyethylene Glycol (Miralax) 17 gm DAILYPRN PRN ORAL Constipation 08/20/16 22:00 09/19/16 21:59 Sertraline HCl (Zoloft) 25 mg DAILY ORAL 08/21/16 09:00 09/20/16 08:59 08/23/16 09:19 Sodium Chloride (Sodium Chloride 1000ml bag) 1,000 ml @ 75 mls/hr [id number] IVLG 08/21/16 15:00 09/20/16 14:59 08/23/16 06:47 Temazepam (Restoril) 15 mg HSPRN PRN ORAL Insomnia 08/20/16 22:00 08/27/16 21:59 08/22/16 21:28 Vancomycin HCl/ Dextrose (Vancomycin/D5W) 275 ml @ 183.708 mls/hr Q24H IVPB 08/22/16 09:00 08/27/16 08:59 08/23/16 08:50 Allergies: Coded Allergies: PENICILLINS (Unverified Allergy, Unknown, 03/22/15) Subjective 76 YO F admitted with fever. Now UTI. Cover for Int Med-Dr Tee. Objective Last Vital Signs Date Time Temp Pulse Resp B/P Pulse Ox O2 Delivery O2 Flow Rate FiO2 08/23/16 11:31 97.9 64 20 133/76 98 Room Air 08/21/16 08:35 21 Laboratory Tests Test 08/23/16 06:15 White Blood Count 6.0 K/UL (4.8-10.8) Red Blood Count 2.79 M/UL (4.20-5.40) L Hemoglobin 8.6 G/DL (12.0-16.0) L Hematocrit 27.2 % (37.0-47.0) L Mean Corpuscular Volume 98 FL (80-99) Mean Corpuscular Hemoglobin 31.0 PG (27.0-31.0) Mean Corpuscular Hemoglobin Concent 31.7 G/DL (32.0-36.0) L Red Cell Distribution Width 15.4 % (11.6-14.8) H Platelet Count 102 K/UL (150-450) L Mean Platelet Volume 7.9 FL (6.5-10.1) Neutrophils (%) (Auto) 51.2 % (45.0-75.0) Lymphocytes (%) (Auto) 25.8 % (20.0-45.0) Monocytes (%) (Auto) 7.9 % (1.0-10.0) Eosinophils (%) (Auto) 14.1 % (0.0-3.0) H Basophils (%) (Auto) 1.0 % (0.0-2.0) Sodium Level 139 mEQ/L (135-145) Potassium Level 4.9 mEQ/L (3.4-4.9) Chloride Level 110 mEQ/L (98-107) H Carbon Dioxide Level 18 mEQ/L (20-30) L Anion Gap 11 (5-15) Blood Urea Nitrogen 34 mg/dL (7-23) H Creatinine 1.2 mg/dL (0.5-0.9) H Estimat Glomerular Filtration Rate mL/min (>60) Glucose Level 140 mg/dL (74-106) H Plasma/Serum Osmolality Pending Calcium Level 9.8 mg/dL (8.6-10.2) Alpha Fetoprotein Pending Microbiology Date/Time Source Procedure Growth Status 08/20/16 19:40 Blood Blood Culture - Preliminary NO GROWTH AFTER 48 HOURS Resulted 08/20/16 19:25 Blood Blood Culture - Preliminary NO GROWTH AFTER 48 HOURS Resulted 08/20/16 21:12 Urine,Clean Catch Urine Culture - Final Escherichia Coli - Esbl Morganella Morg Spp Morganii Complete Intake and Output 08/22/16 08/23/16 19:00 07:00 Intake Total 2000.000 ml 637.5 ml Output Total 1050 ml 800 ml Balance 950.000 ml -162.5 ml Intake Oral 1200 ml IV Total 800.000 ml 637.5 ml Output Urine Total 1050 ml 800 ml # Bowel Movements 2 Objective General: alert, cooperative, no distress, appears stated age Head: normocephalic, without obvious abnormality, atraumatic Eyes: conjunctivae/corneas clear. PERRL, EOM's intact Throat: lips, mucosa, and tongue normal. MMM Neck: supple, symmetrical, trachea midline, and no JVD Lungs: clear to auscultation bilaterally Heart: regular rate and rhythm, S1, S2 normal, no murmur, click, rub or gallop Abdomen: soft, non-tender, non-distended, bowel sounds normal; no masses or organomegaly Extremities: extremities normal, atraumatic, no cyanosis or edema Pulses: 2+ and symmetric Skin: skin color, texture, turgor normal; no rashes or lesions Neurologic: grossly normal, no focal deficits Assessment/Plan Problem List: (1) UTI (urinary tract infection) Assessment & Plan: E. Coli and Morganella. See ID note. Cont abx per ID (2) Fever Assessment & Plan: ?sepsis? Await blood culture (3) Diabetes mellitus Assessment & Plan: Cont novolog sliding scale. (4) Hypertension Assessment & Plan: Cont lopressor. 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
--- NOTE | 2016-08-23 17:38 | General Progress Note ---
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 Objective Last 24 Hour Vital Signs Date Time Temp Pulse Resp B/P Pulse Ox O2 Delivery O2 Flow Rate FiO2 08/23/16 17:30 68 18 97 Room Air 21 08/23/16 17:30 21 08/23/16 15:47 98.2 68 20 145/76 97 Room Air 08/23/16 11:31 97.9 64 20 133/76 98 Room Air 08/23/16 09:19 74 128/57 08/23/16 08:08 97.6 74 21 128/57 100 Room Air 08/23/16 08:07 73 16 Room Air 08/22/16 21:00 97.5 69 20 129/59 97 Room Air 08/22/16 21:00 80 99/44 08/22/16 19:52 80 16 Room Air Intake and Output 08/22/16 08/23/16 19:00 07:00 Intake Total 2000.000 ml 637.5 ml Output Total 1050 ml 800 ml Balance 950.000 ml -162.5 ml Intake Oral 1200 ml IV Total 800.000 ml 637.5 ml Output Urine Total 1050 ml 800 ml # Bowel Movements 2 Laboratory Tests 08/23/16 06:15: White Blood Count 6.0, Red Blood Count 2.79L, Hemoglobin 8.6L, Hematocrit 27.2L , Mean Corpuscular Volume 98, Mean Corpuscular Hemoglobin 31.0, Mean Corpuscular Hemoglobin Concent 31.7L, Red Cell Distribution Width 15.4H, Platelet Count 102L, Mean Platelet Volume 7.9, Neutrophils (%) (Auto) 51.2, Lymphocytes (%) (Auto) 25.8, Monocytes (%) (Auto) 7.9, Eosinophils (%) (Auto) 14.1H, Basophils (%) (Auto) 1.0, Sodium Level 139, Potassium Level 4.9, Chloride Level 110H, Carbon Dioxide Level 18L, Anion Gap 11, Blood Urea Nitrogen 34H, Creatinine 1.2H, Estimat Glomerular Filtration Rate , Glucose Level 140H, Plasma/Serum Osmolality [Pending], Calcium Level 9.8, Alpha Fetoprotein [Pending] Height (Feet): 5 Height (Inches): 5.00 Weight (Pounds): 230 Objective WDWN NCAT supple CTA RRR Soft ND NT no edema KIERSTEN DAVIES August 23, 2016 17:38
--- NOTE | 2016-08-23 18:25 | Infectious Diseases Prog Note ---
Assessment/Plan Assessment/Plan ASSESSMENT: 76 y/o female with: // Rt leg cellulitis , SP // Fever , SP // hx of PICC infection and CoNS recurrent bacteremia : // Recurrent complicated ESBL(+) E.coli + , repeat UCX : Colonizer - - CT A/P 09/2015: 9 x 4 mm left proximal ureteral stone with mild left hydronephrosis. // Multiple superficial decubitis POA, not grossly infected // CKD3 // Hypercalcemia // DM2 // Obesity // MRSA, VRE colonized // PCN allergy - tolerates carbapenems // Full Code PLAN: - DC Vanco d# 4 ( 06/26 SP Cefepime d# 3 ) ( 06/11 SP IV vancomycin, meropenem d# 3 ) - cultures ( Bl ) repeat - monitor CBC, temperatures - monitor BMP Subjective Constitutional: Denies: anorexia, chills, drenching sweats, fatigue, fever, no symptoms, other Allergies: Coded Allergies: PENICILLINS (Unverified Allergy, Unknown, 03/22/15) Objective Vital Signs Last 24 Hour Vital Signs Date Time Temp Pulse Resp B/P Pulse Ox O2 Delivery O2 Flow Rate FiO2 08/23/16 17:30 68 18 97 Room Air 21 08/23/16 17:30 21 08/23/16 15:47 98.2 68 20 145/76 97 Room Air 08/23/16 11:31 97.9 64 20 133/76 98 Room Air 08/23/16 09:19 74 128/57 08/23/16 08:08 97.6 74 21 128/57 100 Room Air 08/23/16 08:07 73 16 Room Air 08/22/16 21:00 97.5 69 20 129/59 97 Room Air 08/22/16 21:00 80 99/44 08/22/16 19:52 80 16 Room Air Height (Feet): 5 Height (Inches): 5.00 Weight (Pounds): 230 Respiratory/Chest: no respiratory distress Abdomen: normal bowel sounds, non distended Microbiology Date/Time Source Procedure Growth Status 08/20/16 19:40 Blood Blood Culture - Preliminary NO GROWTH AFTER 48 HOURS Resulted 08/20/16 19:25 Blood Blood Culture - Preliminary NO GROWTH AFTER 48 HOURS Resulted 08/20/16 21:12 Urine,Clean Catch Urine Culture - Final Escherichia Coli - Esbl Morganella Morg Spp Morganii Complete Laboratory Tests Test 08/23/16 06:15 White Blood Count 6.0 K/UL (4.8-10.8) Red Blood Count 2.79 M/UL (4.20-5.40) L Hemoglobin 8.6 G/DL (12.0-16.0) L Hematocrit 27.2 % (37.0-47.0) L Mean Corpuscular Volume 98 FL (80-99) Mean Corpuscular Hemoglobin 31.0 PG (27.0-31.0) Mean Corpuscular Hemoglobin Concent 31.7 G/DL (32.0-36.0) L Red Cell Distribution Width 15.4 % (11.6-14.8) H Platelet Count 102 K/UL (150-450) L Mean Platelet Volume 7.9 FL (6.5-10.1) Neutrophils (%) (Auto) 51.2 % (45.0-75.0) Lymphocytes (%) (Auto) 25.8 % (20.0-45.0) Monocytes (%) (Auto) 7.9 % (1.0-10.0) Eosinophils (%) (Auto) 14.1 % (0.0-3.0) H Basophils (%) (Auto) 1.0 % (0.0-2.0) Sodium Level 139 mEQ/L (135-145) Potassium Level 4.9 mEQ/L (3.4-4.9) Chloride Level 110 mEQ/L (98-107) H Carbon Dioxide Level 18 mEQ/L (20-30) L Anion Gap 11 (5-15) Blood Urea Nitrogen 34 mg/dL (7-23) H Creatinine 1.2 mg/dL (0.5-0.9) H Estimat Glomerular Filtration Rate mL/min (>60) Glucose Level 140 mg/dL (74-106) H Plasma/Serum Osmolality Pending Calcium Level 9.8 mg/dL (8.6-10.2) Alpha Fetoprotein Pending Current Medications Medications (Trade) Dose Ordered Sig/Pavel Route PRN Reason Start Time Stop Time Status Last Admin Dose Admin Acetaminophen (Tylenol) 650 mg Q4H PRN ORAL fever 08/20/16 22:00 09/19/16 21:59 Albuterol/ Ipratropium (DuoNeb 0.5-3(2.5)mg/3ml) 3 ml Q4H PRN HHN Shortness of Breath 08/20/16 22:00 08/25/16 21:59 08/23/16 17:31 Dextrose STAT PRN IV Hypoglycemia 08/20/16 22:00 09/19/16 21:59 Gabapentin (Neurontin) 300 mg THREE TIMES A DAY ORAL 08/21/16 09:00 09/20/16 08:59 08/23/16 17:16 Insulin Aspart (NovoLOG) BEFORE MEALS AND HS SUBQ 08/21/16 06:30 09/20/16 06:29 08/23/16 17:17 Lactulose (Cephulac) 20 gm THREE TIMES A DAY ORAL 08/21/16 09:00 09/20/16 08:59 08/22/16 18:00 Metoprolol Tartrate (Lopressor) 25 mg EVERY 12 HOURS ORAL 08/21/16 09:00 09/20/16 08:59 08/23/16 09:19 Morphine Sulfate (Morphine Sulfate) 2 mg Q4H PRN IVP Moderate Pain (Pain Scale 4-6) 08/20/16 22:00 08/27/16 21:59 08/21/16 09:28 Nitroglycerin (Ntg) 0.4 mg Q5M PRN SL Prn Chest Pain 08/20/16 22:00 09/19/16 21:59 Nystatin (Nystop Powder) 1 applic THREE TIMES A DAY TOPIC 08/22/16 18:00 09/21/16 17:59 08/23/16 17:16 Ondansetron HCl (Zofran) 4 mg Q6H PRN IVP Nausea & Vomiting 08/20/16 22:00 09/19/16 21:59 Pantoprazole 40 mg 40 mg DAILY ORAL 08/21/16 15:00 09/20/16 14:59 08/23/16 09:19 Polyethylene Glycol (Miralax) 17 gm DAILYPRN PRN ORAL Constipation 08/20/16 22:00 09/19/16 21:59 Sertraline HCl (Zoloft) 25 mg DAILY ORAL 08/21/16 09:00 09/20/16 08:59 08/23/16 09:19 Sodium Chloride (Sodium Chloride 1000ml bag) 1,000 ml @ 75 mls/hr [id number] IVLG 08/21/16 15:00 09/20/16 14:59 08/23/16 06:47 Temazepam (Restoril) 15 mg HSPRN PRN ORAL Insomnia 08/20/16 22:00 08/27/16 21:59 08/22/16 21:28 Vancomycin HCl/ Dextrose (Vancomycin/D5W) 275 ml @ 183.708 mls/hr Q24H IVPB 08/22/16 09:00 08/27/16 08:59 08/23/16 08:50 LYLA ROJAS M.D. August 23, 2016 18:25
[2016-08-23 20:00] VITALS: BP 109/58
--- NOTE | 2016-08-23 22:02 | Pulmonology Progress Note ---
Assessment/Plan Problems: (1) Sepsis (2) COPD (chronic obstructive pulmonary disease) with emphysema (3) ARF (acute renal failure) (4) Cellulitis (5) Cirrhosis (6) Cardiomegaly (7) DM (diabetes mellitus) (8) Sleep apnea Assessment/Plan iv fluids IV antibiotics check electrolytes dvt prophylaxis check labs check cultures Subjective Allergies: Coded Allergies: PENICILLINS (Unverified Allergy, Unknown, 03/22/15) Objective Last 24 Hour Vital Signs Date Time Temp Pulse Resp B/P Pulse Ox O2 Delivery O2 Flow Rate FiO2 08/23/16 21:35 80 18 Room Air 08/23/16 20:09 78 109/58 08/23/16 20:00 97.7 78 19 109/58 100 Room Air 08/23/16 17:30 68 18 97 Room Air 21 08/23/16 17:30 21 08/23/16 15:47 98.2 68 20 145/76 97 Room Air 08/23/16 11:31 97.9 64 20 133/76 98 Room Air 08/23/16 09:19 74 128/57 08/23/16 08:08 97.6 74 21 128/57 100 Room Air 08/23/16 08:07 73 16 Room Air Intake and Output 08/22/16 08/23/16 19:00 07:00 Intake Total 2000.000 ml 637.5 ml Output Total 1050 ml 800 ml Balance 950.000 ml -162.5 ml Intake Oral 1200 ml IV Total 800.000 ml 637.5 ml Output Urine Total 1050 ml 800 ml # Bowel Movements 2 Laboratory Tests 08/23/16 06:15: White Blood Count 6.0, Red Blood Count 2.79L, Hemoglobin 8.6L, Hematocrit 27.2L , Mean Corpuscular Volume 98, Mean Corpuscular Hemoglobin 31.0, Mean Corpuscular Hemoglobin Concent 31.7L, Red Cell Distribution Width 15.4H, Platelet Count 102L, Mean Platelet Volume 7.9, Neutrophils (%) (Auto) 51.2, Lymphocytes (%) (Auto) 25.8, Monocytes (%) (Auto) 7.9, Eosinophils (%) (Auto) 14.1H, Basophils (%) (Auto) 1.0, Sodium Level 139, Potassium Level 4.9, Chloride Level 110H, Carbon Dioxide Level 18L, Anion Gap 11, Blood Urea Nitrogen 34H, Creatinine 1.2H, Estimat Glomerular Filtration Rate , Glucose Level 140H, Plasma/Serum Osmolality [Pending], Calcium Level 9.8, Alpha Fetoprotein [Pending] Current Medications Medications (Trade) Dose Ordered Sig/Pavel Route PRN Reason Start Time Stop Time Status Last Admin Dose Admin Acetaminophen (Tylenol) 650 mg Q4H PRN ORAL fever 08/20/16 22:00 09/19/16 21:59 Albuterol/ Ipratropium (DuoNeb 0.5-3(2.5)mg/3ml) 3 ml Q4H PRN HHN Shortness of Breath 08/20/16 22:00 08/25/16 21:59 08/23/16 17:31 Dextrose STAT PRN IV Hypoglycemia 08/20/16 22:00 09/19/16 21:59 Gabapentin (Neurontin) 300 mg THREE TIMES A DAY ORAL 08/21/16 09:00 09/20/16 08:59 08/23/16 17:16 Insulin Aspart (NovoLOG) BEFORE MEALS AND HS SUBQ 08/21/16 06:30 09/20/16 06:29 08/23/16 20:56 Lactulose (Cephulac) 20 gm THREE TIMES A DAY ORAL 08/21/16 09:00 09/20/16 08:59 08/22/16 18:00 Metoprolol Tartrate (Lopressor) 25 mg EVERY 12 HOURS ORAL 08/21/16 09:00 09/20/16 08:59 08/23/16 09:19 Morphine Sulfate (Morphine Sulfate) 2 mg Q4H PRN IVP Moderate Pain (Pain Scale 4-6) 08/20/16 22:00 08/27/16 21:59 08/21/16 09:28 Nitroglycerin (Ntg) 0.4 mg Q5M PRN SL Prn Chest Pain 08/20/16 22:00 09/19/16 21:59 Nystatin (Nystop Powder) 1 applic THREE TIMES A DAY TOPIC 08/22/16 18:00 09/21/16 17:59 08/23/16 17:16 Ondansetron HCl (Zofran) 4 mg Q6H PRN IVP Nausea & Vomiting 08/20/16 22:00 09/19/16 21:59 Pantoprazole (Protonix) 40 mg DAILY ORAL 08/21/16 15:00 09/20/16 14:59 08/23/16 09:19 Polyethylene Glycol (Miralax) 17 gm DAILYPRN PRN ORAL Constipation 08/20/16 22:00 09/19/16 21:59 Sertraline HCl (Zoloft) 25 mg DAILY ORAL 08/21/16 09:00 09/20/16 08:59 08/23/16 09:19 Sodium Chloride (Sodium Chloride 1000ml bag) 1,000 ml @ 75 mls/hr [id number] IVLG 08/21/16 15:00 09/20/16 14:59 08/23/16 06:47 Temazepam (Restoril) 15 mg HSPRN PRN ORAL Insomnia 08/20/16 22:00 08/27/16 21:59 08/22/16 21:28 DIONI TRIANA August 23, 2016 22:02
[2016-08-24] VITALS: BP 101/45
[2016-08-24 04:00] VITALS: BP 102/49
[2016-08-24] MEDS: NovoLOG Insulin Flexpen SUBQ SCH ×4 (06:13→21:52)
[2016-08-24 08:00] VITALS: BP 119/58
[2016-08-24 08:48] LABS: BASOPHILS % (AUTO) 0.9 % (0.0-2.0); EOSINOPHILS % (AUTO) 14.1 % (0.0-3.0); LYMPHOCYTES % (AUTO) 23.5 % (20.0-45.0); MEAN CORPUSCULAR HEMOGLOBIN 30.3 PG (27.0-31.0); MEAN CORPUSCULAR HGB CONC 31.3 G/DL (32.0-36.0); MEAN CORPUSCULAR VOLUME 97 FL (80-99); MEAN PLATELET VOLUME 8.1 FL (6.5-10.1); MONOCYTES % (AUTO) 5.5 % (1.0-10.0); NEUTROPHILS % (AUTO) 56.1 % (45.0-75.0); PLATELET COUNT 105 K/UL (150-450); RED BLOOD COUNT 3.02 M/UL (4.20-5.40); RED CELL DISTRIBUTION WIDTH 14.6 % (11.6-14.8); WHITE BLOOD COUNT 5.4 K/UL (4.8-10.8)
[2016-08-24] MEDS: Nystatin Powder 100,000 units/gm 15gm TOPIC SCH ×3 (09:35→17:22)
[2016-08-24] MEDS: Lactulose 20gm/30ml UDC ORAL SCH ×3 (09:35→17:21)
[2016-08-24] MEDS: Metoprolol 25mg tab ORAL SCH ×2 (09:36→21:08)
[2016-08-24] MEDS: Sertraline 50mg tab ORAL SCH (09:36)
[2016-08-24 09:43] LABS: ANION GAP 14 (5-15); CALCIUM 10.3 mg/dL (8.6-10.2); CARBON DIOXIDE 19 mEQ/L (20-30); CHLORIDE 107 mEQ/L (98-107); CREATININE 1.2 mg/dL (0.5-0.9); HEMOLYSIS 18; POTASSIUM 4.6 mEQ/L (3.4-4.9); SODIUM 140 mEQ/L (135-145)
--- NOTE | 2016-08-24 11:28 | General Progress Note ---
Assessment/Plan Status: stable Status Narrative Cr 1.2 Assessment/Plan ARF (acute renal failure) , and possible CKD due to DM CT A/P 09/2015: 9 x 4 mm left proximal ureteral stone with mild left hydronephrosis. Primary Impression: Sepsis Rt leg cellulitis hx of PICC infection and CoNS recurrent bacteremia : Recurrent complicated ESBL(+) E.coli + UTI ( pt has dysuria ) Multiple superficial decubiti POA, not grossly infected Additional Impressions: UTI (urinary tract infection) Obesity High Ca Anemia Plan: DC IV Per ID Avoid Nephrotoxics Urine studies monitor renal parameters slow hydrate kidney LASHANDA- pending per orders Subjective ROS Limited/Unobtainable: No Constitutional: Reports: malaise, weakness Allergies: Coded Allergies: PENICILLINS (Unverified Allergy, Unknown, 03/22/15) Objective Last 24 Hour Vital Signs Date Time Temp Pulse Resp B/P Pulse Ox O2 Delivery O2 Flow Rate FiO2 08/24/16 09:36 99 119/58 08/24/16 09:15 53 16 Room Air 08/24/16 08:00 97.5 100 20 119/58 99 Room Air 08/24/16 04:00 97.0 72 15 102/49 95 Room Air 08/24/16 00:00 96.9 76 16 101/45 99 Room Air 08/23/16 21:35 80 18 Room Air 08/23/16 20:09 78 109/58 08/23/16 20:00 97.7 78 19 109/58 100 Room Air 08/23/16 17:30 68 18 97 Room Air 21 08/23/16 17:30 21 08/23/16 15:47 98.2 68 20 145/76 97 Room Air 08/23/16 11:31 97.9 64 20 133/76 98 Room Air Intake and Output 08/23/16 08/24/16 19:00 07:00 Intake Total 500 ml 200 ml Output Total 1100 ml 1550 ml Balance -600 ml -1350 ml Intake Oral 500 ml 200 ml Output Urine Total 1100 ml 1550 ml # Bowel Movements 6 1 Laboratory Tests 08/24/16 08:28: White Blood Count 5.4, Red Blood Count 3.02L, Hemoglobin 9.1L, Hematocrit 29.2L , Mean Corpuscular Volume 97, Mean Corpuscular Hemoglobin 30.3, Mean Corpuscular Hemoglobin Concent 31.3L, Red Cell Distribution Width 14.6, Platelet Count 105L, Mean Platelet Volume 8.1, Neutrophils (%) (Auto) 56.1, Lymphocytes (%) (Auto) 23.5, Monocytes (%) (Auto) 5.5, Eosinophils (%) (Auto) 14.1H, Basophils (%) (Auto) 0.9, Sodium Level 140, Potassium Level 4.6, Chloride Level 107, Carbon Dioxide Level 19L, Anion Gap 14, Blood Urea Nitrogen 30H, Creatinine 1.2H, Estimat Glomerular Filtration Rate , Glucose Level 178H, Calcium Level 10.3H, Vancomycin Level Trough 22.1H Height (Feet): 5 Height (Inches): 5.00 Weight (Pounds): 230 General Appearance: no apparent distress Cardiovascular: normal rate Respiratory/Chest: decreased breath sounds Abdomen: soft Objective other PE not changed ANDERS MOLINA August 24, 2016 11:28
[2016-08-24 12:00] VITALS: BP 147/87
--- NOTE | 2016-08-24 12:10 | Infectious Diseases Prog Note ---
Assessment/Plan Assessment/Plan A: R leg cellulitis UTI/ Bacteriuria DM Morbid obesity PCN allergy P: observe off antibiotic Subjective ROS Limited/Unobtainable: No Respiratory: Reports: no symptoms Gastrointestinal/Abdominal: Reports: no symptoms Genitourinary: Reports: no symptoms Skin: Reports: other - itching Allergies: Coded Allergies: PENICILLINS (Unverified Allergy, Unknown, 03/22/15) Objective Vital Signs Last 24 Hour Vital Signs Date Time Temp Pulse Resp B/P Pulse Ox O2 Delivery O2 Flow Rate FiO2 08/24/16 09:36 99 119/58 08/24/16 09:15 53 16 Room Air 08/24/16 08:00 97.5 100 20 119/58 99 Room Air 08/24/16 04:00 97.0 72 15 102/49 95 Room Air 08/24/16 00:00 96.9 76 16 101/45 99 Room Air 08/23/16 21:35 80 18 Room Air 08/23/16 20:09 78 109/58 08/23/16 20:00 97.7 78 19 109/58 100 Room Air 08/23/16 17:30 68 18 97 Room Air 21 08/23/16 17:30 21 08/23/16 15:47 98.2 68 20 145/76 97 Room Air Height (Feet): 5 Height (Inches): 5.00 Weight (Pounds): 230 General Appearance: other - obese HEENT: mucous membranes moist Respiratory/Chest: normal breath sounds Cardiovascular: normal rate Abdomen: soft, non tender Extremities: no edema Neurologic/Psychiatric: alert, responsive Laboratory Tests Test 08/24/16 08:28 White Blood Count 5.4 K/UL (4.8-10.8) Red Blood Count 3.02 M/UL (4.20-5.40) L Hemoglobin 9.1 G/DL (12.0-16.0) L Hematocrit 29.2 % (37.0-47.0) L Mean Corpuscular Volume 97 FL (80-99) Mean Corpuscular Hemoglobin 30.3 PG (27.0-31.0) Mean Corpuscular Hemoglobin Concent 31.3 G/DL (32.0-36.0) L Red Cell Distribution Width 14.6 % (11.6-14.8) Platelet Count 105 K/UL (150-450) L Mean Platelet Volume 8.1 FL (6.5-10.1) Neutrophils (%) (Auto) 56.1 % (45.0-75.0) Lymphocytes (%) (Auto) 23.5 % (20.0-45.0) Monocytes (%) (Auto) 5.5 % (1.0-10.0) Eosinophils (%) (Auto) 14.1 % (0.0-3.0) H Basophils (%) (Auto) 0.9 % (0.0-2.0) Sodium Level 140 mEQ/L (135-145) Potassium Level 4.6 mEQ/L (3.4-4.9) Chloride Level 107 mEQ/L (98-107) Carbon Dioxide Level 19 mEQ/L (20-30) L Anion Gap 14 (5-15) Blood Urea Nitrogen 30 mg/dL (7-23) H Creatinine 1.2 mg/dL (0.5-0.9) H Estimat Glomerular Filtration Rate mL/min (>60) Glucose Level 178 mg/dL (74-106) H Calcium Level 10.3 mg/dL (8.6-10.2) H Vancomycin Level Trough 22.1 ug/mL (5.0-12.0) H Current Medications Medications (Trade) Dose Ordered Sig/Pavel Route PRN Reason Start Time Stop Time Status Last Admin Dose Admin Acetaminophen (Tylenol) 650 mg Q4H PRN ORAL fever 08/20/16 22:00 09/19/16 21:59 Albuterol/ Ipratropium (DuoNeb 0.5-3(2.5)mg/3ml) 3 ml Q4H PRN HHN Shortness of Breath 08/20/16 22:00 08/25/16 21:59 08/23/16 17:31 Dextrose (Dextrose 50%) STAT PRN IV Hypoglycemia 08/20/16 22:00 09/19/16 21:59 Gabapentin (Neurontin) 300 mg THREE TIMES A DAY ORAL 08/21/16 09:00 09/20/16 08:59 08/24/16 09:35 Insulin Aspart (NovoLOG) BEFORE MEALS AND HS SUBQ 08/21/16 06:30 09/20/16 06:29 08/24/16 06:13 Lactulose (Cephulac) 20 gm THREE TIMES A DAY ORAL 08/21/16 09:00 09/20/16 08:59 08/24/16 09:35 Metoprolol Tartrate (Lopressor) 25 mg EVERY 12 HOURS ORAL 08/21/16 09:00 09/20/16 08:59 08/24/16 09:36 Morphine Sulfate (Morphine Sulfate) 2 mg Q4H PRN IVP Moderate Pain (Pain Scale 4-6) 08/20/16 22:00 08/27/16 21:59 08/21/16 09:28 Nitroglycerin (Ntg) 0.4 mg Q5M PRN SL Prn Chest Pain 08/20/16 22:00 09/19/16 21:59 Nystatin (Nystop Powder) 1 applic THREE TIMES A DAY TOPIC 08/22/16 18:00 09/21/16 17:59 08/24/16 09:35 Ondansetron HCl (Zofran) 4 mg Q6H PRN IVP Nausea & Vomiting 08/20/16 22:00 09/19/16 21:59 Pantoprazole (Protonix) 40 mg DAILY ORAL 08/21/16 15:00 09/20/16 14:59 08/24/16 09:36 Polyethylene Glycol (Miralax) 17 gm DAILYPRN PRN ORAL Constipation 08/20/16 22:00 09/19/16 21:59 Sertraline HCl (Zoloft) 25 mg DAILY ORAL 08/21/16 09:00 09/20/16 08:59 08/24/16 09:36 Temazepam (Restoril) 15 mg HSPRN PRN ORAL Insomnia 08/20/16 22:00 08/27/16 21:59 08/22/16 21:28 SUMMER BYRNES August 24, 2016 12:10
[2016-08-24] MEDS ORDERED: HydrOXYzine 25mg tab ORAL PRN (14:15)
--- NOTE | 2016-08-24 14:18 | Internal Med Progress Note ---
Subjective Date of Service: August 24, 2016 Physician Name Jed Pond Attending Physician Rl Tee MD Current Medications Medications (Trade) Dose Ordered Sig/Pavel Route PRN Reason Start Time Stop Time Status Last Admin Dose Admin Acetaminophen (Tylenol) 650 mg Q4H PRN ORAL fever 08/20/16 22:00 09/19/16 21:59 Albuterol/ Ipratropium (DuoNeb 0.5-3(2.5)mg/3ml) 3 ml Q4H PRN HHN Shortness of Breath 08/20/16 22:00 08/25/16 21:59 08/23/16 17:31 Dextrose (Dextrose 50%) STAT PRN IV Hypoglycemia 08/20/16 22:00 09/19/16 21:59 Gabapentin (Neurontin) 300 mg THREE TIMES A DAY ORAL 08/21/16 09:00 09/20/16 08:59 08/24/16 12:11 Insulin Aspart (NovoLOG) BEFORE MEALS AND HS SUBQ 08/21/16 06:30 09/20/16 06:29 08/24/16 12:16 Lactulose (Cephulac) 20 gm THREE TIMES A DAY ORAL 08/21/16 09:00 09/20/16 08:59 08/24/16 12:11 Metoprolol Tartrate (Lopressor) 25 mg EVERY 12 HOURS ORAL 08/21/16 09:00 09/20/16 08:59 08/24/16 09:36 Morphine Sulfate (Morphine Sulfate) 2 mg Q4H PRN IVP Moderate Pain (Pain Scale 4-6) 08/20/16 22:00 08/27/16 21:59 08/21/16 09:28 Nitroglycerin (Ntg) 0.4 mg Q5M PRN SL Prn Chest Pain 08/20/16 22:00 09/19/16 21:59 Nystatin (Nystop Powder) 1 applic THREE TIMES A DAY TOPIC 08/22/16 18:00 09/21/16 17:59 08/24/16 12:11 Ondansetron HCl (Zofran) 4 mg Q6H PRN IVP Nausea & Vomiting 08/20/16 22:00 09/19/16 21:59 Pantoprazole (Protonix) 40 mg DAILY ORAL 08/21/16 15:00 09/20/16 14:59 08/24/16 09:36 Polyethylene Glycol (Miralax) 17 gm DAILYPRN PRN ORAL Constipation 08/20/16 22:00 09/19/16 21:59 Sertraline HCl (Zoloft) 25 mg DAILY ORAL 08/21/16 09:00 09/20/16 08:59 08/24/16 09:36 Temazepam (Restoril) 15 mg HSPRN PRN ORAL Insomnia 08/20/16 22:00 08/27/16 21:59 08/22/16 21:28 Allergies: Coded Allergies: PENICILLINS (Unverified Allergy, Unknown, 03/22/15) ROS Limited/Unobtainable: No Constitutional: Reports: no symptoms HEENT: Reports: no symptoms Cardiovascular: Reports: no symptoms Respiratory: Reports: no symptoms Gastrointestinal/Abdominal: Reports: no symptoms Genitourinary: Reports: no symptoms Neurologic/Psychiatric: Reports: no symptoms Subjective 76 YO F admitted with fever. Now UTI. Cover for Int Med-Dr Tee.. C/O itch Objective Last Vital Signs Date Time Temp Pulse Resp B/P Pulse Ox O2 Delivery O2 Flow Rate FiO2 08/24/16 12:00 97.3 90 20 147/87 99 Room Air 08/23/16 17:30 21 Laboratory Tests Test 08/24/16 08:28 White Blood Count 5.4 K/UL (4.8-10.8) Red Blood Count 3.02 M/UL (4.20-5.40) L Hemoglobin 9.1 G/DL (12.0-16.0) L Hematocrit 29.2 % (37.0-47.0) L Mean Corpuscular Volume 97 FL (80-99) Mean Corpuscular Hemoglobin 30.3 PG (27.0-31.0) Mean Corpuscular Hemoglobin Concent 31.3 G/DL (32.0-36.0) L Red Cell Distribution Width 14.6 % (11.6-14.8) Platelet Count 105 K/UL (150-450) L Mean Platelet Volume 8.1 FL (6.5-10.1) Neutrophils (%) (Auto) 56.1 % (45.0-75.0) Lymphocytes (%) (Auto) 23.5 % (20.0-45.0) Monocytes (%) (Auto) 5.5 % (1.0-10.0) Eosinophils (%) (Auto) 14.1 % (0.0-3.0) H Basophils (%) (Auto) 0.9 % (0.0-2.0) Sodium Level 140 mEQ/L (135-145) Potassium Level 4.6 mEQ/L (3.4-4.9) Chloride Level 107 mEQ/L (98-107) Carbon Dioxide Level 19 mEQ/L (20-30) L Anion Gap 14 (5-15) Blood Urea Nitrogen 30 mg/dL (7-23) H Creatinine 1.2 mg/dL (0.5-0.9) H Estimat Glomerular Filtration Rate mL/min (>60) Glucose Level 178 mg/dL (74-106) H Calcium Level 10.3 mg/dL (8.6-10.2) H Vancomycin Level Trough 22.1 ug/mL (5.0-12.0) H Intake and Output 08/23/16 08/24/16 19:00 07:00 Intake Total 500 ml 200 ml Output Total 1100 ml 1550 ml Balance -600 ml -1350 ml Intake Oral 500 ml 200 ml Output Urine Total 1100 ml 1550 ml # Bowel Movements 6 1 Objective General: alert, cooperative, no distress, appears stated age Head: normocephalic, without obvious abnormality, atraumatic Eyes: conjunctivae/corneas clear. PERRL, EOM's intact Throat: lips, mucosa, and tongue normal. MMM Neck: supple, symmetrical, trachea midline, and no JVD Lungs: clear to auscultation bilaterally Heart: regular rate and rhythm, S1, S2 normal, no murmur, click, rub or gallop Abdomen: soft, non-tender, non-distended, bowel sounds normal; no masses or organomegaly Extremities: extremities normal, atraumatic, no cyanosis or edema Pulses: 2+ and symmetric Skin: skin color, texture, turgor normal; no rashes or lesions Neurologic: grossly normal, no focal deficits Assessment/Plan Problem List: (1) UTI (urinary tract infection) Assessment & Plan: E. Coli and Morganella. See ID note. Cont abx per ID (2) Fever Assessment & Plan: ?sepsis? Await blood culture (3) Diabetes mellitus Assessment & Plan: Cont novolog sliding scale. (4) Hypertension Assessment & Plan: Cont lopressor. (5) Sleep apnea (6) GERD (gastroesophageal reflux disease) (7) CHF (congestive heart failure) (8) Renal failure (9) Cirrhosis (10) Diabetic nephropathy (11) COPD (chronic obstructive pulmonary disease) with emphysema (12) Cardiomegaly (13) Pruritic dermatitis Assessment & Plan: PRN atarax and Temovate Status: progressing JED POND August 24, 2016 14:18
--- NOTE | 2016-08-24 15:28 | General Progress Note ---
Assessment/Plan Assessment/Plan Assessment - Obesity - DURANT with cirrhosis - coagulopathy - fever/leukocytosis/ UTI - DM - HTN - YELENA - CHF Recommendations - f/u AFP - f/u abd u/s - abx - low salt diet Subjective Allergies: Coded Allergies: PENICILLINS (Unverified Allergy, Unknown, 03/22/15) Subjective Feels OK no abd pain no events overnight Objective Last 24 Hour Vital Signs Date Time Temp Pulse Resp B/P Pulse Ox O2 Delivery O2 Flow Rate FiO2 08/24/16 12:00 97.3 90 20 147/87 99 Room Air 08/24/16 09:36 99 119/58 08/24/16 09:15 53 16 Room Air 08/24/16 08:00 97.5 100 20 119/58 99 Room Air 08/24/16 04:00 97.0 72 15 102/49 95 Room Air 08/24/16 00:00 96.9 76 16 101/45 99 Room Air 08/23/16 21:35 80 18 Room Air 08/23/16 20:09 78 109/58 08/23/16 20:00 97.7 78 19 109/58 100 Room Air 08/23/16 17:30 68 18 97 Room Air 21 08/23/16 17:30 21 08/23/16 15:47 98.2 68 20 145/76 97 Room Air Intake and Output 08/23/16 08/24/16 19:00 07:00 Intake Total 500 ml 200 ml Output Total 1100 ml 1550 ml Balance -600 ml -1350 ml Intake Oral 500 ml 200 ml Output Urine Total 1100 ml 1550 ml # Bowel Movements 6 1 Laboratory Tests 08/24/16 08:28: White Blood Count 5.4, Red Blood Count 3.02L, Hemoglobin 9.1L, Hematocrit 29.2L , Mean Corpuscular Volume 97, Mean Corpuscular Hemoglobin 30.3, Mean Corpuscular Hemoglobin Concent 31.3L, Red Cell Distribution Width 14.6, Platelet Count 105L, Mean Platelet Volume 8.1, Neutrophils (%) (Auto) 56.1, Lymphocytes (%) (Auto) 23.5, Monocytes (%) (Auto) 5.5, Eosinophils (%) (Auto) 14.1H, Basophils (%) (Auto) 0.9, Sodium Level 140, Potassium Level 4.6, Chloride Level 107, Carbon Dioxide Level 19L, Anion Gap 14, Blood Urea Nitrogen 30H, Creatinine 1.2H, Estimat Glomerular Filtration Rate , Glucose Level 178H, Calcium Level 10.3H, Vancomycin Level Trough 22.1H Height (Feet): 5 Height (Inches): 5.00 Weight (Pounds): 230 Objective WDWN NCAT supple CTA RRR Soft ND NT no edema KIERSTEN DAVIES August 24, 2016 15:28
[2016-08-24 16:00] VITALS: BP 148/71
[2016-08-24] MEDS: Clobetasol Cream 0.05% 15gm TOPIC SCH ×2 (16:16→21:10)
[2016-08-24 20:00] VITALS: BP 155/77
--- NOTE | 2016-08-24 22:49 | Pulmonology Progress Note ---
Assessment/Plan Problems: (1) Sepsis (2) COPD (chronic obstructive pulmonary disease) with emphysema (3) ARF (acute renal failure) (4) Cellulitis (5) Cirrhosis (6) Cardiomegaly (7) DM (diabetes mellitus) (8) Sleep apnea Assessment/Plan iv fluids IV antibiotics check electrolytes dvt prophylaxis check labs check cultures Subjective Allergies: Coded Allergies: PENICILLINS (Unverified Allergy, Unknown, 03/22/15) Objective Last 24 Hour Vital Signs Date Time Temp Pulse Resp B/P Pulse Ox O2 Delivery O2 Flow Rate FiO2 08/24/16 21:08 81 155/77 08/24/16 20:00 97.9 81 18 155/77 97 Room Air 08/24/16 19:55 83 16 Room Air 08/24/16 16:00 97.5 80 20 148/71 99 Room Air 08/24/16 12:00 97.3 90 20 147/87 99 Room Air 08/24/16 09:36 99 119/58 08/24/16 09:15 53 16 Room Air 08/24/16 08:00 97.5 100 20 119/58 99 Room Air 08/24/16 04:00 97.0 72 15 102/49 95 Room Air 08/24/16 00:00 96.9 76 16 101/45 99 Room Air Intake and Output 08/23/16 08/24/16 19:00 07:00 Intake Total 500 ml 200 ml Output Total 1100 ml 1550 ml Balance -600 ml -1350 ml Intake Oral 500 ml 200 ml Output Urine Total 1100 ml 1550 ml # Bowel Movements 6 1 Laboratory Tests 08/24/16 08:28: White Blood Count 5.4, Red Blood Count 3.02L, Hemoglobin 9.1L, Hematocrit 29.2L , Mean Corpuscular Volume 97, Mean Corpuscular Hemoglobin 30.3, Mean Corpuscular Hemoglobin Concent 31.3L, Red Cell Distribution Width 14.6, Platelet Count 105L, Mean Platelet Volume 8.1, Neutrophils (%) (Auto) 56.1, Lymphocytes (%) (Auto) 23.5, Monocytes (%) (Auto) 5.5, Eosinophils (%) (Auto) 14.1H, Basophils (%) (Auto) 0.9, Sodium Level 140, Potassium Level 4.6, Chloride Level 107, Carbon Dioxide Level 19L, Anion Gap 14, Blood Urea Nitrogen 30H, Creatinine 1.2H, Estimat Glomerular Filtration Rate , Glucose Level 178H, Calcium Level 10.3H, Vancomycin Level Trough 22.1H Current Medications Medications (Trade) Dose Ordered Sig/Pavel Route PRN Reason Start Time Stop Time Status Last Admin Dose Admin Acetaminophen (Tylenol) 650 mg Q4H PRN ORAL fever 08/20/16 22:00 09/19/16 21:59 Albuterol/ Ipratropium (DuoNeb 0.5-3(2.5)mg/3ml) 3 ml Q4H PRN HHN Shortness of Breath 08/20/16 22:00 08/25/16 21:59 08/23/16 17:31 Clobetasol Propionate (Temovate) 1 applic Q12HR TOPIC 08/24/16 15:00 09/23/16 14:59 08/24/16 21:10 Dextrose (Dextrose 50%) STAT PRN IV Hypoglycemia 08/20/16 22:00 09/19/16 21:59 Gabapentin (Neurontin) 300 mg THREE TIMES A DAY ORAL 08/21/16 09:00 09/20/16 08:59 08/24/16 17:21 Hydroxyzine HCl (Atarax) 25 mg Q6H PRN ORAL Itching 08/24/16 14:15 09/23/16 14:14 08/24/16 17:21 Insulin Aspart (NovoLOG) BEFORE MEALS AND HS SUBQ 08/21/16 06:30 09/20/16 06:29 08/24/16 21:52 Lactulose (Cephulac) 20 gm THREE TIMES A DAY ORAL 08/21/16 09:00 09/20/16 08:59 08/24/16 17:21 Metoprolol Tartrate (Lopressor) 25 mg EVERY 12 HOURS ORAL 08/21/16 09:00 09/20/16 08:59 08/24/16 21:08 Morphine Sulfate (Morphine Sulfate) 2 mg Q4H PRN IVP Moderate Pain (Pain Scale 4-6) 08/20/16 22:00 08/27/16 21:59 08/21/16 09:28 Nitroglycerin (Ntg) 0.4 mg Q5M PRN SL Prn Chest Pain 08/20/16 22:00 09/19/16 21:59 Nystatin (Nystop Powder) 1 applic THREE TIMES A DAY TOPIC 08/22/16 18:00 09/21/16 17:59 08/24/16 17:22 Ondansetron HCl (Zofran) 4 mg Q6H PRN IVP Nausea & Vomiting 08/20/16 22:00 09/19/16 21:59 Pantoprazole (Protonix) 40 mg DAILY ORAL 08/21/16 15:00 09/20/16 14:59 08/24/16 09:36 Polyethylene Glycol (Miralax) 17 gm DAILYPRN PRN ORAL Constipation 08/20/16 22:00 09/19/16 21:59 Sertraline HCl (Zoloft) 25 mg DAILY ORAL 08/21/16 09:00 09/20/16 08:59 08/24/16 09:36 Temazepam (Restoril) 15 mg HSPRN PRN ORAL Insomnia 08/20/16 22:00 08/27/16 21:59 08/22/16 21:28 DIONI TRIANA August 24, 2016 22:48
[2016-08-25] VITALS: BP 145/70
[2016-08-25 04:00] VITALS: BP 147/51
[2016-08-25] MEDS: NovoLOG Insulin Flexpen SUBQ SCH ×2 (06:22→12:20)
[2016-08-25 08:01] LABS: MEAN CORPUSCULAR HEMOGLOBIN 31.2 PG (27.0-31.0); MEAN CORPUSCULAR HGB CONC 32.2 G/DL (32.0-36.0); MEAN CORPUSCULAR VOLUME 97 FL (80-99); MEAN PLATELET VOLUME 6.7 FL (6.5-10.1); PLATELET COUNT 94 K/UL (150-450); RED BLOOD COUNT 3.04 M/UL (4.20-5.40); RED CELL DISTRIBUTION WIDTH 14.7 % (11.6-14.8); WHITE BLOOD COUNT 5.5 K/UL (4.8-10.8)
--- NOTE | 2016-08-25 08:08 | Diagnostic Imaging Report ---
Indication:Abdominal pain Technique: Grayscale and duplex Doppler imaging of the abdomen performed. Comparison: None Findings: The gallbladder is absent. There is nodularity of the liver surface. The liver demonstrates heterogeneous coarsened echotexture. Spleen is enlarged measuring between 15 and 16 cm. Increased vascularity noted in the hilum of the spleen suspicious for splenic venous congestion, possibly portosystemic varices. There is no ascites. There is no definite biliary ductal dilatation. CBD measures between 7 and 8 mm. Accounting for age and prior cholecystectomy this is likely normal. Main portal vein is patent by Doppler examination. Kidneys are unremarkable bilaterally. There is no hydronephrosis. Aorta is normal caliber as visualized though much of the pancreas and aorta are obscured by bowel gas.. Nunez catheter noted within a nondistended bladder. Impression: Suspected chronic liver disease as discussed above. 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 Status post cholecystectomy. Nunez catheter Pancreas and aorta obscured by bowel gas
[2016-08-25 08:13] LABS: ANION GAP 13 (5-15); CALCIUM 10.4 mg/dL (8.6-10.2); CARBON DIOXIDE 20 mEQ/L (20-30); CHLORIDE 107 mEQ/L (98-107); CREATININE 1.1 mg/dL (0.5-0.9); HEMOLYSIS 3; POTASSIUM 4.3 mEQ/L (3.4-4.9); SODIUM 140 mEQ/L (135-145)
[2016-08-25 08:15] VITALS: BP 127/60
[2016-08-25] MEDS: Nystatin Powder 100,000 units/gm 15gm TOPIC SCH ×2 (09:01→13:00)
[2016-08-25] MEDS: Clobetasol Cream 0.05% 15gm TOPIC SCH (09:01)
[2016-08-25] MEDS: Sertraline 50mg tab ORAL SCH (09:01)
[2016-08-25] MEDS: Metoprolol 25mg tab ORAL SCH (09:01)
[2016-08-25] MEDS: Lactulose 20gm/30ml UDC ORAL SCH ×2 (09:02→13:49)
--- NOTE | 2016-08-25 09:22 | Infectious Diseases Prog Note ---
Assessment/Plan Assessment/Plan ASSESSMENT: 76 y/o female with: // Rt leg cellulitis , SP // Fever , SP // hx of PICC infection and CoNS recurrent bacteremia : // Recurrent complicated ESBL(+) E.coli + , repeat UCX : Colonizer - - CT A/P 09/2015: 9 x 4 mm left proximal ureteral stone with mild left hydronephrosis. // Multiple superficial decubitis POA, not grossly infected // CKD3 // Hypercalcemia // DM2 // Obesity // MRSA, VRE colonized // PCN allergy - tolerates carbapenems // Full Code PLAN: - Monitor pt off of AB Rx ( 08/23 SP Vanco d# 4 ) ( 06/26 SP Cefepime d# 3 ) ( 06/11 SP IV vancomycin, meropenem d# 3 ) - cultures ( Bl ) repeat - monitor CBC, temperatures - monitor BMP Subjective Constitutional: Denies: anorexia, chills, drenching sweats, fatigue, fever, no symptoms, other Allergies: Coded Allergies: PENICILLINS (Unverified Allergy, Unknown, 03/22/15) Objective Vital Signs Last 24 Hour Vital Signs Date Time Temp Pulse Resp B/P Pulse Ox O2 Delivery O2 Flow Rate FiO2 08/25/16 09:01 77 147/51 08/25/16 04:00 96.0 77 18 147/51 98 Room Air 08/25/16 00:00 97.4 77 18 145/70 95 Room Air 08/24/16 21:08 81 155/77 08/24/16 20:00 97.9 81 18 155/77 97 Room Air 08/24/16 19:55 83 16 Room Air 08/24/16 16:00 97.5 80 20 148/71 99 Room Air 08/24/16 12:00 97.3 90 20 147/87 99 Room Air 08/24/16 09:36 99 119/58 Height (Feet): 5 Height (Inches): 5.00 Weight (Pounds): 230 HEENT: mucous membranes moist Respiratory/Chest: normal breath sounds Cardiovascular: normal rate Abdomen: no organomegaly Laboratory Tests Test 08/25/16 06:25 White Blood Count 5.5 K/UL (4.8-10.8) Red Blood Count 3.04 M/UL (4.20-5.40) L Hemoglobin 9.5 G/DL (12.0-16.0) L Hematocrit 29.4 % (37.0-47.0) L Mean Corpuscular Volume 97 FL (80-99) Mean Corpuscular Hemoglobin 31.2 PG (27.0-31.0) H Mean Corpuscular Hemoglobin Concent 32.2 G/DL (32.0-36.0) Red Cell Distribution Width 14.7 % (11.6-14.8) Platelet Count 94 K/UL (150-450) L Mean Platelet Volume 6.7 FL (6.5-10.1) Neutrophils (%) (Auto) % (45.0-75.0) Lymphocytes (%) (Auto) % (20.0-45.0) Monocytes (%) (Auto) % (1.0-10.0) Eosinophils (%) (Auto) % (0.0-3.0) Basophils (%) (Auto) % (0.0-2.0) Neutrophils % (Manual) Pending Lymphocytes % (Manual) Pending Platelet Estimate Pending Platelet Morphology Pending Sodium Level 140 mEQ/L (135-145) Potassium Level 4.3 mEQ/L (3.4-4.9) Chloride Level 107 mEQ/L (98-107) Carbon Dioxide Level 20 mEQ/L (20-30) Anion Gap 13 (5-15) Blood Urea Nitrogen 25 mg/dL (7-23) H Creatinine 1.1 mg/dL (0.5-0.9) H Estimat Glomerular Filtration Rate mL/min (>60) Glucose Level 103 mg/dL (74-106) Calcium Level 10.4 mg/dL (8.6-10.2) H Current Medications Medications (Trade) Dose Ordered Sig/Pavel Route PRN Reason Start Time Stop Time Status Last Admin Dose Admin Acetaminophen (Tylenol) 650 mg Q4H PRN ORAL fever 08/20/16 22:00 09/19/16 21:59 Albuterol/ Ipratropium (DuoNeb 0.5-3(2.5)mg/3ml) 3 ml Q4H PRN HHN Shortness of Breath 08/20/16 22:00 08/25/16 21:59 08/23/16 17:31 Clobetasol Propionate (Temovate) 1 applic Q12HR TOPIC 5/7/17 15:00 09/23/16 14:59 08/25/16 09:01 Dextrose (Dextrose 50%) STAT PRN IV Hypoglycemia 08/20/16 22:00 09/19/16 21:59 Gabapentin (Neurontin) 300 mg THREE TIMES A DAY ORAL 08/21/16 09:00 09/20/16 08:59 08/25/16 09:01 Hydroxyzine HCl (Atarax) 25 mg Q6H PRN ORAL Itching 08/24/16 14:15 09/23/16 14:14 08/24/16 17:21 Insulin Aspart (NovoLOG) BEFORE MEALS AND HS SUBQ 08/21/16 06:30 09/20/16 06:29 08/24/16 21:52 Lactulose (Cephulac) 20 gm THREE TIMES A DAY ORAL 08/21/16 09:00 09/20/16 08:59 08/25/16 09:02 Metoprolol Tartrate (Lopressor) 25 mg EVERY 12 HOURS ORAL 08/21/16 09:00 09/20/16 08:59 08/25/16 09:01 Morphine Sulfate (Morphine Sulfate) 2 mg Q4H PRN IVP Moderate Pain (Pain Scale 4-6) 08/20/16 22:00 08/27/16 21:59 08/21/16 09:28 Nitroglycerin (Ntg) 0.4 mg Q5M PRN SL Prn Chest Pain 08/20/16 22:00 09/19/16 21:59 Nystatin (Nystop Powder) 1 applic THREE TIMES A DAY TOPIC 08/22/16 18:00 09/21/16 17:59 08/25/16 09:01 Ondansetron HCl (Zofran) 4 mg Q6H PRN IVP Nausea & Vomiting 08/20/16 22:00 09/19/16 21:59 Pantoprazole (Protonix) 40 mg DAILY ORAL 08/21/16 15:00 09/20/16 14:59 08/25/16 09:00 Polyethylene Glycol (Miralax) 17 gm DAILYPRN PRN ORAL Constipation 08/20/16 22:00 09/19/16 21:59 Sertraline HCl (Zoloft) 25 mg DAILY ORAL 08/21/16 09:00 09/20/16 08:59 08/25/16 09:01 Temazepam (Restoril) 15 mg HSPRN PRN ORAL Insomnia 08/20/16 22:00 08/27/16 21:59 08/22/16 21:28 LYLA ROJAS M.D. August 25, 2016 09:21
[2016-08-25 10:33] LABS: ANISOCYTOSIS 1+; BAND NEUTROPHILS % (MANUAL) 0 % (0-8); BASOPHILS % (MANUAL) 0 % (0-2); EOSINOPHILS % (MANUAL) 15 % (0-3); HYPOCHROMASIA 1+; LYMPHOCYTES % (MANUAL) 27 % (20-45); NEUTROPHILS % (MANUAL) 54 % (45-75); PLATELET ESTIMATE DECREASED; PLATELET MORPHOLOGY NORMAL; TOTAL CELLS COUNTED 100
--- NOTE | 2016-08-25 11:34 | General Progress Note ---
Assessment/Plan Status: stable Status Narrative Ca remains high when corrected with low serum albumin Assessment/Plan ARF (acute renal failure) , and possible CKD due to DM CT A/P 09/2015: 9 x 4 mm left proximal ureteral stone with mild left hydronephrosis. Primary Impression: Sepsis Rt leg cellulitis hx of PICC infection and CoNS recurrent bacteremia : Recurrent complicated ESBL(+) E.coli + UTI ( pt has dysuria ) Multiple superficial decubiti POA, not grossly infected Additional Impressions: UTI (urinary tract infection) Obesity High Ca Anemia Plan: Aredia 60mg once Per ID Avoid Nephrotoxics Urine studies monitor renal parameters slow hydrate kidney LASHANDA- ? per orders Subjective ROS Limited/Unobtainable: No Constitutional: Reports: malaise Allergies: Coded Allergies: PENICILLINS (Unverified Allergy, Unknown, 03/22/15) Objective Last 24 Hour Vital Signs Date Time Temp Pulse Resp B/P Pulse Ox O2 Delivery O2 Flow Rate FiO2 08/25/16 09:01 77 147/51 08/25/16 08:15 98.6 80 21 127/60 95 Room Air 08/25/16 06:35 67 16 Room Air 08/25/16 04:00 96.0 77 18 147/51 98 Room Air 08/25/16 00:00 97.4 77 18 145/70 95 Room Air 08/24/16 21:08 81 155/77 08/24/16 20:00 97.9 81 18 155/77 97 Room Air 08/24/16 19:55 83 16 Room Air 08/24/16 16:00 97.5 80 20 148/71 99 Room Air 08/24/16 12:00 97.3 90 20 147/87 99 Room Air Intake and Output 08/24/16 08/25/16 19:00 07:00 Intake Total 300 ml 800 ml Output Total 1300 ml 1300 ml Balance -1000 ml -500 ml Intake Oral 300 ml 800 ml Output Urine Total 1300 ml 1300 ml # Bowel Movements 3 Laboratory Tests 08/25/16 06:25: White Blood Count 5.5, Red Blood Count 3.04L, Hemoglobin 9.5L, Hematocrit 29.4L , Mean Corpuscular Volume 97, Mean Corpuscular Hemoglobin 31.2H, Mean Corpuscular Hemoglobin Concent 32.2, Red Cell Distribution Width 14.7, Platelet Count 94L, Mean Platelet Volume 6.7, Neutrophils (%) (Auto) , Lymphocytes (%) ( Auto) , Monocytes (%) (Auto) , Eosinophils (%) (Auto) , Basophils (%) (Auto) , Differential Total Cells Counted 100, Neutrophils % (Manual) 54, Lymphocytes % ( Manual) 27, Monocytes % (Manual) 4, Eosinophils % (Manual) 15H, Basophils % ( Manual) 0, Band Neutrophils 0, Platelet Estimate DecreasedL, Platelet Morphology Normal, Hypochromasia 1+, Anisocytosis 1+, Sodium Level 140, Potassium Level 4.3, Chloride Level 107, Carbon Dioxide Level 20, Anion Gap 13, Blood Urea Nitrogen 25H, Creatinine 1.1H, Estimat Glomerular Filtration Rate , Glucose Level 103, Calcium Level 10.4H Height (Feet): 5 Height (Inches): 5.00 Weight (Pounds): 230 General Appearance: no apparent distress Respiratory/Chest: decreased breath sounds Abdomen: other - obese Objective other PE not changed ANDERS MOLINA August 25, 2016 11:34
[2016-08-25 12:00] VITALS: BP 128/63
[2016-08-25 12:27] LABS: BILIRUBIN,DIRECT 0.4 mg/dL (0.1-0.3); PHOSPHORUS 2.8 mg/dL (2.5-4.8); TOTAL PROTEIN 6.1 g/dL (6.6-8.7)
--- NOTE | 2016-08-25 12:45 | Internal Med Progress Note ---
Subjective Date of Service: August 25, 2016 Physician Name Jed Pond Attending Physician Rl Tee MD Current Medications Medications (Trade) Dose Ordered Sig/Pavel Route PRN Reason Start Time Stop Time Status Last Admin Dose Admin Acetaminophen (Tylenol) 650 mg Q4H PRN ORAL fever 08/20/16 22:00 09/19/16 21:59 Albuterol/ Ipratropium (DuoNeb 0.5-3(2.5)mg/3ml) 3 ml Q4H PRN HHN Shortness of Breath 08/20/16 22:00 08/25/16 21:59 08/23/16 17:31 Clobetasol Propionate (Temovate) 1 applic Q12HR TOPIC 08/24/16 15:00 09/23/16 14:59 08/25/16 09:01 Dextrose (Dextrose 50%) STAT PRN IV Hypoglycemia 08/20/16 22:00 09/19/16 21:59 Gabapentin (Neurontin) 300 mg THREE TIMES A DAY ORAL 08/21/16 09:00 09/20/16 08:59 08/25/16 09:01 Hydroxyzine HCl 25 mg 25 mg Q6H PRN ORAL Itching 08/24/16 14:15 09/23/16 14:14 08/24/16 17:21 Insulin Aspart (NovoLOG) BEFORE MEALS AND HS SUBQ 08/21/16 06:30 09/20/16 06:29 08/25/16 12:20 Lactulose (Cephulac) 20 gm THREE TIMES A DAY ORAL 08/21/16 09:00 09/20/16 08:59 08/25/16 09:02 Metoprolol Tartrate (Lopressor) 25 mg EVERY 12 HOURS ORAL 08/21/16 09:00 09/20/16 08:59 08/25/16 09:01 Morphine Sulfate (Morphine Sulfate) 2 mg Q4H PRN IVP Moderate Pain (Pain Scale 4-6) 08/20/16 22:00 08/27/16 21:59 08/21/16 09:28 Nitroglycerin (Ntg) 0.4 mg Q5M PRN SL Prn Chest Pain 08/20/16 22:00 09/19/16 21:59 Nystatin (Nystop Powder) 1 applic THREE TIMES A DAY TOPIC 08/22/16 18:00 09/21/16 17:59 08/25/16 09:01 Ondansetron HCl (Zofran) 4 mg Q6H PRN IVP Nausea & Vomiting 08/20/16 22:00 09/19/16 21:59 Pamidronate Disodium/Sodium Chloride (Aredia/NS) 550 ml @ 137.5 mls/ hr ONCE ONCE IVPB 08/25/16 13:00 08/25/16 16:59 Pantoprazole (Protonix) 40 mg DAILY ORAL 08/21/16 15:00 09/20/16 14:59 08/25/16 09:00 Polyethylene Glycol (Miralax) 17 gm DAILYPRN PRN ORAL Constipation 08/20/16 22:00 09/19/16 21:59 Sertraline HCl (Zoloft) 25 mg DAILY ORAL 08/21/16 09:00 09/20/16 08:59 08/25/16 09:01 Temazepam (Restoril) 15 mg HSPRN PRN ORAL Insomnia 08/20/16 22:00 08/27/16 21:59 08/22/16 21:28 Allergies: Coded Allergies: PENICILLINS (Unverified Allergy, Unknown, 03/22/15) ROS Limited/Unobtainable: No Constitutional: Reports: no symptoms HEENT: Reports: no symptoms Cardiovascular: Reports: no symptoms Respiratory: Reports: no symptoms Gastrointestinal/Abdominal: Reports: no symptoms Genitourinary: Reports: no symptoms Neurologic/Psychiatric: Reports: no symptoms Subjective 76 YO F admitted with fever. Now UTI. Cover for Int Med-Dr Tee.. Await discharge to [facility]. Objective Last Vital Signs Date Time Temp Pulse Resp B/P Pulse Ox O2 Delivery O2 Flow Rate FiO2 08/25/16 12:00 97.7 70 23 128/63 96 Room Air 08/23/16 17:30 21 Laboratory Tests Test 08/25/16 06:25 White Blood Count 5.5 K/UL (4.8-10.8) Red Blood Count 3.04 M/UL (4.20-5.40) L Hemoglobin 9.5 G/DL (12.0-16.0) L Hematocrit 29.4 % (37.0-47.0) L Mean Corpuscular Volume 97 FL (80-99) Mean Corpuscular Hemoglobin 31.2 PG (27.0-31.0) H Mean Corpuscular Hemoglobin Concent 32.2 G/DL (32.0-36.0) Red Cell Distribution Width 14.7 % (11.6-14.8) Platelet Count 94 K/UL (150-450) L Mean Platelet Volume 6.7 FL (6.5-10.1) Neutrophils (%) (Auto) % (45.0-75.0) Lymphocytes (%) (Auto) % (20.0-45.0) Monocytes (%) (Auto) % (1.0-10.0) Eosinophils (%) (Auto) % (0.0-3.0) Basophils (%) (Auto) % (0.0-2.0) Differential Total Cells Counted 100 Neutrophils % (Manual) 54 % (45-75) Lymphocytes % (Manual) 27 % (20-45) Monocytes % (Manual) 4 % (1-10) Eosinophils % (Manual) 15 % (0-3) H Basophils % (Manual) 0 % (0-2) Band Neutrophils 0 % (0-8) Platelet Estimate Decreased L Platelet Morphology Normal Hypochromasia 1+ Anisocytosis 1+ Sodium Level 140 mEQ/L (135-145) Potassium Level 4.3 mEQ/L (3.4-4.9) Chloride Level 107 mEQ/L (98-107) Carbon Dioxide Level 20 mEQ/L (20-30) Anion Gap 13 (5-15) Blood Urea Nitrogen 25 mg/dL (7-23) H Creatinine 1.1 mg/dL (0.5-0.9) H Estimat Glomerular Filtration Rate mL/min (>60) Glucose Level 103 mg/dL (74-106) Calcium Level 10.4 mg/dL (8.6-10.2) H Phosphorus Level 2.8 mg/dL (2.5-4.8) Total Bilirubin 1.0 mg/dL (0.0-1.2) Direct Bilirubin 0.4 mg/dL (0.1-0.3) H Aspartate Amino Transf (AST/SGOT) 61 U/L (5-40) H Alanine Aminotransferase (ALT/SGPT) 19 U/L (3-33) Alkaline Phosphatase 133 U/L (35-104) H Total Protein 6.1 g/dL (6.6-8.7) L Albumin 2.5 g/dL (3.5-5.2) L Intake and Output 08/24/16 08/25/16 19:00 07:00 Intake Total 300 ml 800 ml Output Total 1300 ml 1300 ml Balance -1000 ml -500 ml Intake Oral 300 ml 800 ml Output Urine Total 1300 ml 1300 ml # Bowel Movements 3 Objective General: alert, cooperative, no distress, appears stated age Head: normocephalic, without obvious abnormality, atraumatic Eyes: conjunctivae/corneas clear. PERRL, EOM's intact Throat: lips, mucosa, and tongue normal. MMM Neck: supple, symmetrical, trachea midline, and no JVD Lungs: clear to auscultation bilaterally Heart: regular rate and rhythm, S1, S2 normal, no murmur, click, rub or gallop Abdomen: soft, non-tender, non-distended, bowel sounds normal; no masses or organomegaly Extremities: extremities normal, atraumatic, no cyanosis or edema Pulses: 2+ and symmetric Skin: skin color, texture, turgor normal; no rashes or lesions Neurologic: grossly normal, no focal deficits Assessment/Plan Problem List: (1) UTI (urinary tract infection) Assessment & Plan: E. Coli and Morganella. See ID note. Monitor off abx per ID (2) Fever Assessment & Plan: ?sepsis? Await blood culture (3) Diabetes mellitus Assessment & Plan: Cont novolog sliding scale. (4) Hypertension Assessment & Plan: Cont lopressor. (5) Sleep apnea (6) GERD (gastroesophageal reflux disease) (7) CHF (congestive heart failure) (8) Renal failure (9) Cirrhosis (10) Diabetic nephropathy (11) COPD (chronic obstructive pulmonary disease) with emphysema (12) Cardiomegaly (13) Pruritic dermatitis Assessment & Plan: PRN atarax and Temovate Status: stable Assessment/Plan Discharge to [facility] nursing [facility] today. JED POND August 25, 2016 12:45
[2016-08-25] MEDS ORDERED: Pamidronate Disodium Inj 60 MG in Sodium Chloride 550 ML IVPB ONE (13:00)
[2016-08-25 15:45] VITALS: BP 152/83
[2016-08-25] MEDS ORDERED: Tubing IV Secondary IV ONE (16:32)
--- NOTE | 2016-08-25 21:59 | Consultation ---
DATE OF CONSULTATION: 08/25/2016 HISTORY OF PRESENT ILLNESS: This is a 76-year-old female who is well known to this physician. She resides in [facility]. The patient has been presenting with irritable mood, anhedonia, and decreased energy. However, she has been treated with Zoloft and doing well. No behavior issues. No manic or psychotic symptoms. PAST PSYCHIATRIC HISTORY: Diagnosed with depression. PAST MEDICAL HISTORY: Diabetes, hypertension, obstructive sleep apnea, gastroesophageal reflux disease, hypercholesteremia, and cardiomyopathy. ALLERGIES: Penicillin. SUBSTANCE ABUSE HISTORY: No history of illicit drug use or alcohol. MENTAL STATUS EXAMINATION: Alert and oriented x3. Mood is depressed. Affect is constricted. Congruent mood. Thought process is concrete. Thought content, no suicidal or homicidal ideation. ASSESSMENT: Major depressive disorder. PLAN: 1. The patient will be continued on Zoloft. 2. Provide the patient with supportive therapy and reality orientation. Oj Medel M.D. DR: IRINA JOB#: [id number] CC:
--- NOTE | 2016-08-25 22:28 | General Progress Note ---
Assessment/Plan Assessment/Plan Assessment - Obesity - DURANT with cirrhosis - coagulopathy - fever/leukocytosis/ UTI - DM - HTN - YELENA - CHF Recommendations - f/u AFP --> pending - f/u abd u/s --> cirrhosis with no mass - abx - low salt diet Subjective Allergies: Coded Allergies: PENICILLINS (Unverified Allergy, Unknown, 03/22/15) Subjective seen earlier today Feels OK no abd pain no events overnight for discharge Objective Last 24 Hour Vital Signs Date Time Temp Pulse Resp B/P Pulse Ox O2 Delivery O2 Flow Rate FiO2 08/25/16 15:45 97.9 75 22 152/83 97 Room Air 08/25/16 12:00 97.7 70 23 128/63 96 Room Air 08/25/16 09:01 77 147/51 08/25/16 08:15 98.6 80 21 127/60 95 Room Air 08/25/16 06:35 67 16 Room Air 08/25/16 04:00 96.0 77 18 147/51 98 Room Air 08/25/16 00:00 97.4 77 18 145/70 95 Room Air Intake and Output 08/24/16 08/25/16 19:00 07:00 Intake Total 300 ml 800 ml Output Total 1300 ml 1300 ml Balance -1000 ml -500 ml Intake Oral 300 ml 800 ml Output Urine Total 1300 ml 1300 ml # Bowel Movements 3 Laboratory Tests 08/25/16 06:25: White Blood Count 5.5, Red Blood Count 3.04L, Hemoglobin 9.5L, Hematocrit 29.4L , Mean Corpuscular Volume 97, Mean Corpuscular Hemoglobin 31.2H, Mean Corpuscular Hemoglobin Concent 32.2, Red Cell Distribution Width 14.7, Platelet Count 94L, Mean Platelet Volume 6.7, Neutrophils (%) (Auto) , Lymphocytes (%) ( Auto) , Monocytes (%) (Auto) , Eosinophils (%) (Auto) , Basophils (%) (Auto) , Differential Total Cells Counted 100, Neutrophils % (Manual) 54, Lymphocytes % ( Manual) 27, Monocytes % (Manual) 4, Eosinophils % (Manual) 15H, Basophils % ( Manual) 0, Band Neutrophils 0, Platelet Estimate DecreasedL, Platelet Morphology Normal, Hypochromasia 1+, Anisocytosis 1+, Sodium Level 140, Potassium Level 4.3, Chloride Level 107, Carbon Dioxide Level 20, Anion Gap 13, Blood Urea Nitrogen 25H, Creatinine 1.1H, Estimat Glomerular Filtration Rate , Glucose Level 103, Calcium Level 10.4H, Phosphorus Level 2.8, Total Bilirubin 1.0, Direct Bilirubin 0.4H, Aspartate Amino Transf (AST/SGOT) 61H, Alanine Aminotransferase (ALT/SGPT) 19, Alkaline Phosphatase 133H, Total Protein 6.1L, Albumin 2.5L Height (Feet): 5 Height (Inches): 5.00 Weight (Pounds): 230 Objective WDWN NCAT supple CTA RRR Soft ND NT no edema KIERSTEN DAVIES August 25, 2016 22:28
--- NOTE | 2016-08-25 22:45 | Pulmonology Progress Note ---
Assessment/Plan Problems: (1) Sepsis (2) COPD (chronic obstructive pulmonary disease) with emphysema (3) ARF (acute renal failure) (4) Cellulitis (5) Cirrhosis (6) Cardiomegaly (7) DM (diabetes mellitus) (8) Sleep apnea Assessment/Plan iv fluids IV antibiotics check electrolytes dvt prophylaxis check labs check cultures Subjective Allergies: Coded Allergies: PENICILLINS (Unverified Allergy, Unknown, 03/22/15) Objective Last 24 Hour Vital Signs Date Time Temp Pulse Resp B/P Pulse Ox O2 Delivery O2 Flow Rate FiO2 08/25/16 15:45 97.9 75 22 152/83 97 Room Air 08/25/16 12:00 97.7 70 23 128/63 96 Room Air 08/25/16 09:01 77 147/51 08/25/16 08:15 98.6 80 21 127/60 95 Room Air 08/25/16 06:35 67 16 Room Air 08/25/16 04:00 96.0 77 18 147/51 98 Room Air 08/25/16 00:00 97.4 77 18 145/70 95 Room Air Intake and Output 08/24/16 08/25/16 19:00 07:00 Intake Total 300 ml 800 ml Output Total 1300 ml 1300 ml Balance -1000 ml -500 ml Intake Oral 300 ml 800 ml Output Urine Total 1300 ml 1300 ml # Bowel Movements 3 General Appearance: no acute distress HEENT: normocephalic, atraumatic, PERRL Respiratory/Chest: chest wall non-tender, decreased breath sounds, accessory muscle use, rhonchi, expiratory wheezing, pleural rub Breasts: no masses Cardiovascular: normal peripheral pulses, normal rate, regular rhythm, no JVD Abdomen: normal bowel sounds, soft, non tender, no organomegaly, non distended Genitourinary: normal external genitalia Extremities: no cyanosis Skin: rash, lesions, ulcers, other - lower extremities significant for inflammatory changes and moderate amount of edema consistant with cellulitis 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, responsive, disoriented Laboratory Tests 08/25/16 06:25: White Blood Count 5.5, Red Blood Count 3.04L, Hemoglobin 9.5L, Hematocrit 29.4L , Mean Corpuscular Volume 97, Mean Corpuscular Hemoglobin 31.2H, Mean Corpuscular Hemoglobin Concent 32.2, Red Cell Distribution Width 14.7, Platelet Count 94L, Mean Platelet Volume 6.7, Neutrophils (%) (Auto) , Lymphocytes (%) ( Auto) , Monocytes (%) (Auto) , Eosinophils (%) (Auto) , Basophils (%) (Auto) , Differential Total Cells Counted 100, Neutrophils % (Manual) 54, Lymphocytes % ( Manual) 27, Monocytes % (Manual) 4, Eosinophils % (Manual) 15H, Basophils % ( Manual) 0, Band Neutrophils 0, Platelet Estimate DecreasedL, Platelet Morphology Normal, Hypochromasia 1+, Anisocytosis 1+, Sodium Level 140, Potassium Level 4.3, Chloride Level 107, Carbon Dioxide Level 20, Anion Gap 13, Blood Urea Nitrogen 25H, Creatinine 1.1H, Estimat Glomerular Filtration Rate , Glucose Level 103, Calcium Level 10.4H, Phosphorus Level 2.8, Total Bilirubin 1.0, Direct Bilirubin 0.4H, Aspartate Amino Transf (AST/SGOT) 61H, Alanine Aminotransferase (ALT/SGPT) 19, Alkaline Phosphatase 133H, Total Protein 6.1L, Albumin 2.5L DIONI TRIANA August 25, 2016 22:45
--- NOTE | 2016-08-26 10:45 | Discharge Summary ---
Discharge Summary Hospital Course Date of Admission August 20, 2016 at 21:09 Date of Discharge August 25, 2016 at 16:33 Admitting Diagnosis FEVER HPI Angela Inman is a 76 year old female who was admitted on August 20, 2016 at 21: 09 for FEVER Hospital Course dc summary #[id number] Discharge Medications Continued Medications: Acetaminophen (Acetaminophen) 650 Mg/20.3 Ml Solution 650 MG ORAL Q6H PRN for Prn Headache/Temp > 101, ML 0 Refills Ascorbic Acid* (Vitamin C*) 500 Mg Tablet Unknown Dose ORAL DAILY, #30 TAB 0 Refills Aspirin* (Aspir 81*) 81 Mg Tablet.dr 81 MG ORAL DAILY, TAB Atorvastatin Calcium* (Atorvastatin Calcium*) 20 Mg Tablet 20 MG ORAL BEDTIME, TAB Calcium Carbonate/Mag Carb/Fa (Magnebind 400 Rx Tablet) 1 Each Tablet 1 EACH PO, TAB Clopidogrel Bisulfate* (Plavix*) 75 Mg Tablet 75 MG ORAL DAILY, TAB Cranberry Fruit Concentrate (Cranberry) 450 Mg Capsule 450 MG PO DAILY, CAP Diphenhydramine Hcl* (Benadryl*) 25 Mg Capsule 25 MG ORAL EVERY 8 HOURS PRN for Itching, CAP Docusate Sodium* (Docusate Sodium*) 100 Mg Capsule 100 MG ORAL BID, CAP Ferrous Sulfate (Ferrous Sulfate) 325 Mg Tablet. 325 MG PO DAILY Furosemide* (Lasix*) 20 Mg Tablet 20 MG PO DAILY, #10 TAB Take 1 tablet by mouth daily Gabapentin* (Gabapentin*) 300 Mg Capsule 300 MG ORAL THREE TIMES A DAY, CAP 0 Refills Hydrocodone/Acetaminophen (Hydrocodon-Acetaminophn 10-325) 1 Ea Tab 1 TAB ORAL Q6H PRN for For Pain, #30 TAB 0 Refills Insulin Aspart (Novolog) 100 Unit/1 Ml Vial BEFORE MEALS AND HS Insulin Detemir (Levemir) 100 Unit/1 Ml Vial 25 UNITS SUBQ BEDTIME, VIAL HOLD FOR BS <110 Lactulose (Lactulose*) 20 Gm/30 Ml Solution 30 ML ORAL THREE TIMES A DAY, ML 0 Refills Losartan Potassium* (Losartan Potassium*) 25 Mg Tablet 12.5 MG ORAL DAILY, TAB Magnesium Chloride (Slow-Mag) 64 Mg Tabcr 1 TAB PO DAILY, TAB Metoclopramide Hcl* (Reglan*) 5 Mg Tablet 5 MG ORAL BID, TAB Metoprolol Tartrate* (Metoprolol Tartrate*) 25 Mg Tablet 25 MG ORAL EVERY 12 HOURS, TAB Nateglinide* (Starlix*) 60 Mg Tablet 90 MG ORAL BEFORE MEALS, TAB Nitroglycerin (Nitroglycerin) 0.4 Mg Tab.subl 0.4 MG SL, TAB Ondansetron (Zofran) 4 Mg Tablet 4 MG ORAL Q6H PRN for Nausea & Vomiting, TAB Polyethylene Glycol 3350* (Miralax*) 17 Gm Powd.pack 17 GM ORAL DAILY, PACKET Ranitidine Hcl* (Zantac*) 150 Mg Tablet 150 MG ORAL DAILY, TAB Sertraline Hcl* (Sertraline Hcl*) 25 Mg Tablet 25 MG ORAL DAILY, TAB Simethicone* (Simethicone*) 80 Mg Tab.chew 160 MG ORAL Q8H PRN for Abdominal cramps, #20 TAB 0 Refills Temazepam (Restoril*) 30 Mg Capsule 15 MG ORAL BEDTIME, #7 CAP 0 Refills [mulitvital-m] () 1 TAB PO DAILY Discharge Condition Upon Discharge: stable Discharge Disposition Patient was discharged to SNF/Subacute Facility(03) Discharge Diagnoses: Discharge Instructions Discharge Instructions Special Instructions I have been assigned to complete a D/C Summary on this account. I was not involved in the patient management Chana Chen NP (Vanchtein) August 26, 2016 10:45
--- NOTE | 2016-08-27 02:49 | Discharge Summary 2 SIG ---
DATE OF ADMISSION: 08/20/2016 DATE OF DISCHARGE: 08/25/2016 REASON FOR ADMISSION: 76-year-old female with multiple medical problems including chronic obstructive pulmonary disease, diabetes, hypertension, recurrent urinary tract infection, obesity, sleep apnea, congestive heart failure, and cirrhosis with DURANT, presented to emergency room for evaluation. The patient resided in half-way. Staff reported fever for one day. The patient reported feeling weak. No cough. No chest pain. No shortness of breath. Denies dysuria, hematuria, flank or abdominal pain. Workup in the emergency room revealed no fever. Pulse oximetry was 90% on the room air. White blood count - 14.8, BUN -46, creatinine-2.0, and lactic acid-2.5. Urinalysis with evidence of urinary tract infection. EKG showed normal sinus rate, no acute changes. Chest x-ray revealed no acute pathology. The patient was started on IV fluid resuscitation . Patient was pancultured and started on antibiotics. The patient was admitted for further management. ADMITTING DIAGNOSES: 1. Sepsis. 2. Urinary tract infection. 3. Acute renal failure. HOSPITAL COURSE: The patient was admitted. ID consult was requested. The patient with a history of recurrent complicated urinary tract infection. At this time, urine culture was positive for E. coli ESBL and Morganella. The patient was treated with antibiotics. Blood cultures were negative. The patient status post treatment with antibiotics. ID recommended prior to discharge observe the patient off antibiotics. The patient also had a history of multiple superficial decubitus, but not grossly infected. The patient had evidence of right leg cellulitis, which was treated with antibiotics. Again as mentioned above, status post antibiotic treatment. The patient was slowly hydrated. Coconut Boiler followed. Coconut Boiler recommended slow hydration and to avoid nephrotoxics. Renal parameters and electrolytes were closely monitored. Upon discharge, BUN -25 and creatinine -1.1. The patient was also noted to have elevated calcium. Arediax1 was given. The patient with history of cirrhosis with DURANT syndrome. Abdominal ultrasound as ordered by GI specialist, revealed chronic liver disease with evidence of portal hypertension, splenomegaly, and possible varices, but no ascites. No obvious biliary duct dilatation. No hydronephrosis and no mass. The patient was continued on low-sodium diet. Alpha-fetoprotein was within normal limits. Follow up with GI as outpatient. GI prophylaxis provided. Supplemental oxygen and pulmonary toilet provided as needed. The patient has a history of obstructive sleep apnea. The patient refused CPAP at night time, though using it at the half-way. She stated that it makes her feel weak when she is sick. DVT prophylaxis provided. Blood sugar was managed with sliding scale of insulin and was controlled. Hemoglobin A1c -5.2, at goal. Chest x-ray revealed bronchial wall thickening , likely chronic cardiomegaly and subsegmental atelectasis, but no acute changes. Venous duplex of the bilateral lower extremities was negative. Troponin was negative. EKG revealed no ischemic changes. Leukocytosis resolved. LFTs continued to be elevated , consistent with diagnosis of cirrhosis with DURANT. Again, no mass noted on abdominal ultrasound. Follow up with GI as outpatient. Psychiatrist seen the patient for major depression. No change in medications. DISCHARGE DIAGNOSES: 1. Sepsis. 2. Urinary tract infection with Escherichia coli extended-spectrum beta-lactamases and Morganella. 3. History of recurrent complicated urinary tract infection. 4. Acute renal failure. 5. Right leg cellulitis. 6. Cirrhosis with nonalcoholic steatohepatitis. 7. Chronic obstructive pulmonary disease. 8. Obstructive sleep apnea. 9. Diabetes mellitus. 10. Hypertension. 11. Obesity. 12. Major depression. 13. Hypercalcemia. DISCHARGE MEDICATIONS: See medication reconciliation list. DISCHARGE INSTRUCTIONS: The patient was discharged to [facility] facility. FOLLOWUP: Follow up with medical doctor at the facility. Follow up with GI as outpatient for cirrosis with DURANT. Monitor LFT, Calcium. Rl Tee M.D. I have been assigned to dictate discharge summary on this account and I was not involved in the patient's management. Chana Chen (Vanchtein) NMahesh DR: JOSEPH JOB#: [id number] CC: HAL
== END 2016-08-25 16:33 | DRG 872 ==
LOC: EDUNIT# 18:33 → EDBD 18:33 → EMR 19:11 → 4E 21:09 → EDBEDREQ 21:50
DX: A41.9 Sepsis, unspecified organism (principal); N17.9 Acute kidney failure, unspecified; D68.9 Coagulation defect, unspecified; E11.40 Type 2 diabetes mellitus with diabetic neuropathy, unspecified; E11.22 Type 2 diabetes mellitus with diabetic chronic kidney disease; N18.3 Chronic kidney disease, stage 3 (moderate); N39.0 Urinary tract infection, site not specified; L03.115 Cellulitis of right lower limb; N13.2 Hydronephrosis with renal and ureteral calculous obstruction; I13.0 Hypertensive heart and chronic kidney disease with heart failure and stage 1 through stage 4 chronic kidney disease, or unspecified chronic kidney disease; Z88.0 Allergy status to penicillin; K21.9 Gastro-esophageal reflux disease without esophagitis; E83.52 Hypercalcemia; Z22.322 Carrier or suspected carrier of Methicillin resistant Staphylococcus aureus; E66.9 Obesity, unspecified; Z68.38 Body mass index [BMI] 38.0-38.9, adult; G47.33 Obstructive sleep apnea (adult) (pediatric); D64.9 Anemia, unspecified; K74.60 Unspecified cirrhosis of liver; I51.7 Cardiomegaly; J44.9 Chronic obstructive pulmonary disease, unspecified; E78.00 Pure hypercholesterolemia, unspecified; K76.0 Fatty (change of) liver, not elsewhere classified; L30.8 Other specified dermatitis; F32.9 Major depressive disorder, single episode, unspecified; I50.9 Heart failure, unspecified; K75.81 Nonalcoholic steatohepatitis (NASH); B96.20 Unspecified Escherichia coli [E. coli] as the cause of diseases classified elsewhere; L89.90 Pressure ulcer of unspecified site, unspecified stage
CPT/HCPCS: 36415; 71010; 76700; 80048; 80053; 80061; 80076; 80202; 81001; 81003; 82105; 82248; 82436; 82550; 82553; 82607; 82728; 82746; 82962; 82977; 83036; 83540; 83550; 83605; 83735; 83880; 83930; 83935; 84100; 84133; 84300; 84439; 84443; 84484; 84550; 85007; 85025; 86140; 87040; 87086; 87181; 89050; 93005; 93970; 94640; 94664; 94760; J1815; J2405; J2430

== ENCOUNTER 2016-09-10 14:13 | Inpatient (IN) | payer MEDICARE, MEDICAID ==
[~2016-09-10] VITALS: Ht 165.1 cm; Wt 136.1 kg
[2016-09-10 14:15] VITALS: BP 173/95
[2016-09-10] MEDS: Vancomycin 1.5gm/D5W 300ml 325 ML IVPB ONE ×2 (14:30→16:56)
--- NOTE | 2016-09-10 14:35 | Emergency Room Report ---
History of Present Illness General Chief Complaint: General Complaint Source: Medical Record Present Illness HPI [id number] sent by PMD from SNF for wheezing/cough and to evaluate for PNA. Patient sleepy/lethargic, not providing additional HPI at this time. No additional family members in ED. EMR: UTI, anemia, COPD, DM2, HTN, bipolar, cardiomegaly, additional - full page of PMHx too numerous to include here Allergies: Coded Allergies: PENICILLINS (Unverified Allergy, Unknown, 03/22/15) Patient History Past Medical History: other - see hPI Past Surgical History: unable to obtain Pertinent Family History: unable to obtain Social History: Denies: alcohol use, drug use, smoking Now: No Immunizations: UTD Reviewed Nursing Documentation: PMH: Agreed, PSxH: Agreed Nursing Documentation-PMH Past Medical History: No History, Except For Hx Cardiac Problems: Yes - high cholesterol, cardiomyopathy Hx Hypertension: Yes Hx Pacemaker: No Hx Asthma: No Hx COPD: Yes - obstructive sleep apnea Hx Diabetes: Yes Hx Cancer: No Hx Gastrointestinal Problems: Yes - GERD cirrhosis of liver Hx Neurological Problems: Yes - diabetic neuropathy Hx Cerebrovascular Accident: No Hx Seizures: No Review of Systems All Other Systems: limited - unable to obtain Physical Exam Vital Signs Date Time Temp Pulse Resp B/P Pulse Ox O2 Delivery O2 Flow Rate FiO2 09/10/16 14:06 98.8 73 20 172/88 100 Nasal Cannula 4.0 Sp02 EP Interpretation: reviewed, normal General Appearance: normal inspection, well appearing, no apparent distress, GCS 15, non-toxic, lethargic, obese Head: normocephalic, atraumatic Eyes: bilateral eye EOMI, bilateral eye PERRL ENT: normal ENT inspection, hearing grossly normal, normal voice Neck: normal inspection, full range of motion, supple, no bony tend Respiratory: normal inspection, lungs clear, normal breath sounds, no respiratory distress, no retraction, no wheezing Cardiovascular #1: regular rate, rhythm, no edema Gastrointestinal: normal inspection, normal bowel sounds, non tender, soft, no guarding, no hernia Genitourinary: no CVA tenderness Musculoskeletal: normal inspection, back normal, normal range of motion, Daija' s Sign negative Neurologic: normal inspection, alert, responsive, lead slot technician III-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 I attest that this information is true, accurate and complete to the best of my knowledge. I understand that any falsification, omission, or concealment of material fact may subject me to administrative, civil, or criminal liability. This patient warrants hospital admission for extreme of age and has a condition that cannot be treated as outpatient. Diagnostic Impression: Primary Impression: SOB (shortness of breath) Additional Impressions: COPD exacerbation Hyperkalemia CKD (chronic kidney disease) Qualified Codes: N18.9 - Chronic kidney disease, unspecified ER Course [id number] with SOB/wheezing, known COPD SOB/wheezing - Known COPD - tx with nebs and solumedrol. - Maintaining O2 sat, not tachypnic. Airway patent. Did not require urgent intubation or bipap in ED - Empiric Abx given - Blood Cx pending - Labs: H&H stable. No leuks. CKD - elevated serumCr - consistent with known CKD Hyperkalemia - Mild. - Was already tx with albuterol to drive K intracellularly - ECG without ischemia, peaked Twaves Likely COPD exab. Cant r/o underlying PNA however afebrile, no leuks or SIRS. Will tx empirically with Abx and check Blood Cx Endorsed to Dr Tee for tele admit at 316pm. EKG Diagnostic Results Rate: normal Rhythm: NSR ST Segments: no acute changes ASA given to the pt in ED: No Rhythm Strip Diag. Results EP Interpretation: yes Rate: 83 Rhythm: NSR, no PVC's, no ectopy Chest X-Ray Diagnostic Results EP Interpretation: Yes Findings: no consolidation, no effusion, no pneumothorax Number of Views: 1 Last Vital Signs Date Time Temp Pulse Resp B/P Pulse Ox O2 Delivery O2 Flow Rate FiO2 09/10/16 14:06 98.8 73 20 172/88 100 Nasal Cannula 4.0 Status: improved Disposition: ADMITTED INPATIENT Condition: Serious PRIMITIVO TITUS M.D. September 10, 2016 14:35
[2016-09-10] MEDS ORDERED: CLOBETASOL EMOL15 GM TP (14:37)
[2016-09-10] MEDS ORDERED: OMEPRAZOLE10 M1 ORAL (14:37)
[2016-09-10] MEDS ORDERED: ZANTAC150 MG ORAL (14:37)
[2016-09-10] MEDS ORDERED: REGLAN5 MG ORAL (14:37)
[2016-09-10] MEDS ORDERED: MULTIVITAMINS1 EAC2 ORAL (14:37)
[2016-09-10] MEDS ORDERED: MAG6464 MG PO (14:37)
[2016-09-10] MEDS ORDERED: DUONEB 0.5-3(2.53 ML HHN (14:37)
[2016-09-10] MEDS ORDERED: TEMAZEPAM30 MG ORAL (14:37)
[2016-09-10] MEDS ORDERED: LEVEMIR100 UNIT/1 SUBQ (14:37)
[2016-09-10] MEDS ORDERED: NOVOLOG100 UNIT/3 SUBQ (14:37)
[2016-09-10] MEDS: Albuterol ud Inhalation HHN SCH ×3 (14:44→15:04)
[2016-09-10] MEDS: Ipratropium 0.02% Inh Soln 2.5ml UD HHN SCH ×3 (14:44→15:04)
[2016-09-10 15:02] LABS: BASOPHILS % (AUTO) 0.5 % (0.0-2.0); EOSINOPHILS % (AUTO) 10.5 % (0.0-3.0); LYMPHOCYTES % (AUTO) 23.5 % (20.0-45.0); MEAN CORPUSCULAR HEMOGLOBIN 30.3 PG (27.0-31.0); MEAN CORPUSCULAR HGB CONC 31.4 G/DL (32.0-36.0); MEAN CORPUSCULAR VOLUME 96 FL (80-99); MEAN PLATELET VOLUME 7.5 FL (6.5-10.1); MONOCYTES % (AUTO) 9.9 % (1.0-10.0); NEUTROPHILS % (AUTO) 55.6 % (45.0-75.0); PLATELET COUNT 104 K/UL (150-450); RED BLOOD COUNT 3.34 M/UL (4.20-5.40); RED CELL DISTRIBUTION WIDTH 14.5 % (11.6-14.8); WHITE BLOOD COUNT 7.9 K/UL (4.8-10.8)
[2016-09-10] MEDS ORDERED: Solu-MEDROL 125mg Inj IVP ONE (15:15)
[2016-09-10 15:16] LABS: TROPONIN I < 0.30 ng/mL (<=0.30)
[2016-09-10 15:19] LABS: ALANINE AMINOTRANSFERASE 14 U/L (3-33); ALBUMIN/GLOBULIN RATIO 0.6 (1.0-2.7); ANION GAP 14 (5-15); ASPARTATE AMINO TRANSFERASE 54 U/L (5-40); CALCIUM 9.9 mg/dL (8.6-10.2); CARBON DIOXIDE 18 mEQ/L (20-30); CHLORIDE 104 mEQ/L (98-107); CREATININE 1.7 mg/dL (0.5-0.9); HEMOLYSIS 3; POTASSIUM 5.1 mEQ/L (3.4-4.9); SODIUM 136 mEQ/L (135-145); TOTAL PROTEIN 7.5 g/dL (6.6-8.7)
[2016-09-10 15:30] VITALS: BP_SYST 147; BP_SYST 173; BP_DIAS 74; BP_DIAS 95
[2016-09-10 15:30] LABS: CKMB 1.6 ng/mL (< 3.8)
[2016-09-10] MEDS ORDERED: Clindamycin 600mg 50 ML IVPB ONE (15:30)
[2016-09-10 15:34] LABS: APPEARANCE,URINE SLIGHTLY CLOUDY; KETONES,URINE NEGATIVE (NEGATIVE); LEUKOCYTE ESTERASE ,URINE 2+ (NEGATIVE); NITRITE,URINE NEGATIVE (NEGATIVE); PH,URINE 5 (4.5-8.0); PROTEIN,URINE 1+ (NEGATIVE); UROBILINOGEN,URINE NORMAL MG/DL (0.0-1.0)
[2016-09-10] MEDS ORDERED: Promethazine/Codeine 5ml UD ORAL PRN (15:45)
[2016-09-10] MEDS ORDERED: LORazepam Inj 2mg/ml 1ml IV PRN (15:45)
[2016-09-10] MEDS ORDERED: Morphine Sulfate 2mg/ml Inj IVP PRN (15:45)
[2016-09-10] MEDS ORDERED: Nitroglycerin Subl 0.4mg tab (Bottle Of 25) SL PRN (15:45)
[2016-09-10] MEDS ORDERED: DuoNeb 0.5-3(2.5)mg/3ml neb HHN PRN (15:45)
[2016-09-10] MEDS ORDERED: Simethicone 80mg tab ORAL PRN (15:45)
[2016-09-10 15:47] LABS: BACTERIA,URINE MANY /HPF; SQUAMOUS EPITHELIAL CELL,UR OCCASIONAL /LPF (NONE/OCC)
--- NOTE | 2016-09-10 16:00 | Diagnostic Imaging Report ---
Indication: Dyspnea Comparison: 08/20/16 A single view chest radiograph was obtained. Findings: The heart is enlarged. Lung volumes are low. Bones are slight osteopenic. Vertebroplasty noted at the upper lumbar vertebra. Impression: No acute disease
[2016-09-10] MEDS ORDERED: Lidocaine 1% MPF 10mg/ml 5ml ONE (16:17)
[2016-09-10 17:34] VITALS: BP 133/51
[2016-09-10 19:11] VITALS: BP 123/74
[2016-09-10 20:00] VITALS: BP 123/71
[2016-09-10] MEDS ORDERED: Aztreonam Inj 1 GM in NS 50 ML IVPB ONE (20:00)
[2016-09-10] MEDS: Heparin 5000 units/ml inj SUBQ SCH (22:26)
[2016-09-10] MEDS: Theophylline ER 100mg ORAL SCH (22:28)
[2016-09-10] MEDS: NovoLOG Insulin Flexpen SUBQ SCH (22:28)
[2016-09-10] MEDS: Solu-MEDROL 125mg Inj IV SCH (22:29)
[2016-09-10] MEDS: Metoprolol 25mg tab ORAL SCH (22:29)
--- NOTE | 2016-09-10 23:59 | Consultation ---
History of Present Illness General Date patient seen: September 10, 2016 Chief Complaint: General Complaint Referring physician: Dr. Guthrie Reason for Consultation: Dyspnea Present Illness HPI 76year old female with extensive PMHx including COPD, DM2, HTN, bipolar, cardiomegaly, longterm resident [facility] with CC of wheezing/cough. Patient was sleepy/lethargic initially in ER. Pt had a Urine with many bacteria and was thought to have sepsis with worsening underlying CHF. Allergies: Coded Allergies: PENICILLINS (Unverified Allergy, Unknown, 03/22/15) Medication History Scheduled Ascorbic Acid* (Vitamin C*), Unknown Dose ORAL DAILY, (Reported) Atorvastatin Calcium* (Atorvastatin Calcium*), 20 MG ORAL BEDTIME, (Reported) Clobetasol Propionate/Emoll (Clobetasol Emollient 0.05% Crm), 15 GM TP Q12HR, ( Reported) Clopidogrel Bisulfate* (Plavix*), 75 MG ORAL DAILY, (Reported) Cranberry Fruit Concentrate (Cranberry), 450 MG PO DAILY, (Reported) Docusate Sodium* (Docusate Sodium*), 100 MG ORAL BID, (Reported) Ferrous Sulfate (Ferrous Sulfate), 325 MG PO DAILY, (Reported) Gabapentin* (Gabapentin*), 300 MG ORAL THREE TIMES A DAY, (Reported) Insulin Detemir (Levemir), 0 SUBQ BEDTIME, (Reported) Lactulose (Lactulose*), 30 ML ORAL THREE TIMES A DAY, (Reported) Losartan Potassium* (Losartan Potassium*), 12.5 MG ORAL DAILY, (Reported) Magnesium Chloride (Mag64), 64 MG PO DAILY, (Reported) Metoclopramide Hcl* (Reglan*), 5 MG ORAL BID, (Reported) Metoprolol Tartrate* (Metoprolol Tartrate*), 25 MG ORAL EVERY 12 HOURS, ( Reported) Multivitamins* (Multivitamins*), 1 TAB ORAL DAILY, (Reported) Nateglinide* (Starlix*), 60 MG ORAL BEFORE MEALS, (Reported) Omeprazole (Omeprazole), 40 MG ORAL DAILY, (Reported) Polyethylene Glycol 3350* (Miralax*), 17 GM ORAL DAILY, (Reported) Ranitidine Hcl* (Zantac*), 150 MG ORAL DAILY, (Reported) Sertraline Hcl* (Sertraline Hcl*), 50 MG ORAL DAILY, (Reported) Temazepam (Restoril*), 15 MG ORAL BEDTIME, (Reported) Scheduled PRN Acetaminophen (Acetaminophen), 650 MG ORAL Q4HR PRN for Prn Headache/Temp > 101, (Reported) Diphenhydramine Hcl* (Benadryl*), 25 MG ORAL EVERY 8 HOURS PRN for Itching, ( Reported) Hydrocodone/Acetaminophen (Hydrocodon-Acetaminophn 10-325), 1 TAB ORAL Q6H PRN for For Pain, (Reported) Ipratropium/Albuterol Sulfate (DuoNeb 0.5-3(2.5)mg/3ml), 3 ML HHN Q4HR PRN for Shortness of Breath, (Reported) Simethicone* (Simethicone*), 160 MG ORAL Q8H PRN for Abdominal cramps, (Reported ) Temazepam* (Temazepam*), 30 MG ORAL BEDTIME PRN for Insomnia, (Reported) Miscellaneous Medications Insulin Aspart* (Novolog*), 0 SUBQ, (Reported) Nitroglycerin (Nitroglycerin), 0.4 MG SL, (Reported) Discontinued Medications Ascorbic Acid* (Vitamin C*), 250 MG ORAL DAILY, (Reported) Discontinued Reason: Medication dose changed Aspirin* (Aspir 81*), 81 MG ORAL DAILY, (Reported) Discontinued Reason: Pt stopped taking med Calcium Carbonate/Mag Carb/Fa (Magnebind 400 Rx Tablet), 1 EACH PO, (Reported) Discontinued Reason: Pt stopped taking med Furosemide* (Lasix*), 20 MG PO DAILY, (Reported) Discontinued Reason: Pt stopped taking med Insulin Aspart (Novolog), BEFORE MEALS AND HS, (Reported) Discontinued Reason: Pt stopped taking med Insulin Aspart* (Novolog*), 0 SUBQ, (Reported) Discontinued Reason: Pt stopped taking med Insulin Detemir (Levemir), 25 UNITS SUBQ BEDTIME, (Reported) Discontinued Reason: Pt stopped taking med Magnesium Chloride (Slow-Mag), 1 TAB PO DAILY, (Reported) Discontinued Reason: Pt stopped taking med Metoclopramide Hcl* (Reglan*), 5 MG ORAL BID, (Reported) Discontinued Reason: Pt stopped taking med Omeprazole (Omeprazole), 20 MG ORAL DAILY, (Reported) Discontinued Reason: Pt stopped taking med Ondansetron (Zofran), 4 MG ORAL Q6H PRN for Nausea & Vomiting, (Reported) Discontinued Reason: Pt stopped taking med Ranitidine Hcl* (Zantac*), 150 MG ORAL DAILY, (Reported) Discontinued Reason: Pt stopped taking med [mulitvital-m], 1 TAB PO DAILY, (Reported) Discontinued Reason: Pt stopped taking med Patient History Healthcare decision maker Resuscitation status Advanced Directive on File Past Medical/Surgical History Past Medical/Surgical History: (1) CKD (chronic kidney disease) (2) Hypertension (3) CHF (congestive heart failure) (4) DM (diabetes mellitus) (5) Sleep apnea (6) Cardiomegaly Review of Systems Respiratory: Reports: shortness of breath, wheezing All Other Systems: negative except mentioned in HPI Physical Exam General Appearance: WD/WN, no apparent distress Lines, tubes and drains: peripheral, central line HEENT: normocephalic, atraumatic Neck: non-tender, normal alignment Respiratory/Chest: chest wall non-tender, lungs clear Cardiovascular/Chest: normal peripheral pulses, normal rate Abdomen: normal bowel sounds, non tender Genitourinary/Rectal: normal genital exam, normal rectal exam Last 24 Hour Vital Signs Date Time Temp Pulse Resp B/P Pulse Ox O2 Delivery O2 Flow Rate FiO2 09/10/16 22:29 92 123/71 09/10/16 20:36 Nasal Cannula 2.0 28 09/10/16 20:36 98 Nasal Cannula 2.0 09/10/16 20:00 97.8 92 21 123/71 98 Nasal Cannula 2.0 09/10/16 19:11 97.5 93 25 123/74 100 Nasal Cannula 3.0 09/10/16 18:23 92 12 132/62 100 Nasal Cannula 2.0 09/10/16 17:34 104 15 Nasal Cannula 2.0 09/10/16 17:34 98.7 104 15 133/51 100 Nasal Cannula 2.0 09/10/16 15:30 98.1 106 15 147/74 100 Nasal Cannula 2.0 09/10/16 15:05 81 15 100 Nasal Cannula 2.0 09/10/16 15:04 83 15 100 Nasal Cannula 2.0 09/10/16 14:54 82 14 100 Nasal Cannula 2.0 09/10/16 14:53 81 16 100 Nasal Cannula 2.0 09/10/16 14:44 81 16 100 Nasal Cannula 2.0 09/10/16 14:15 98.4 80 11 173/95 100 Nasal Cannula 2.0 09/10/16 14:15 80 11 Nasal Cannula 2.0 09/10/16 14:06 98.8 73 20 172/88 100 Nasal Cannula 4.0 Laboratory Tests Test 09/10/16 14:30 09/10/16 15:22 White Blood Count 7.9 K/UL (4.8-10.8) Red Blood Count 3.34 M/UL (4.20-5.40) L Hemoglobin 10.1 G/DL (12.0-16.0) L Hematocrit 32.2 % (37.0-47.0) L Mean Corpuscular Volume 96 FL (80-99) Mean Corpuscular Hemoglobin 30.3 PG (27.0-31.0) Mean Corpuscular Hemoglobin Concent 31.4 G/DL (32.0-36.0) L Red Cell Distribution Width 14.5 % (11.6-14.8) Platelet Count 104 K/UL (150-450) L Mean Platelet Volume 7.5 FL (6.5-10.1) Neutrophils (%) (Auto) 55.6 % (45.0-75.0) Lymphocytes (%) (Auto) 23.5 % (20.0-45.0) Monocytes (%) (Auto) 9.9 % (1.0-10.0) Eosinophils (%) (Auto) 10.5 % (0.0-3.0) H Basophils (%) (Auto) 0.5 % (0.0-2.0) Sodium Level 136 mEQ/L (135-145) Potassium Level 5.1 mEQ/L (3.4-4.9) H Chloride Level 104 mEQ/L (98-107) Carbon Dioxide Level 18 mEQ/L (20-30) L Anion Gap 14 (5-15) Blood Urea Nitrogen 31 mg/dL (7-23) H Creatinine 1.7 mg/dL (0.5-0.9) H Estimat Glomerular Filtration Rate mL/min (>60) Glucose Level 105 mg/dL (74-106) Lactic Acid Level 1.10 mmol/L (0.66-2.22) Calcium Level 9.9 mg/dL (8.6-10.2) Total Bilirubin 0.7 mg/dL (0.0-1.2) Aspartate Amino Transf (AST/SGOT) 54 U/L (5-40) H Alanine Aminotransferase (ALT/SGPT) 14 U/L (3-33) Alkaline Phosphatase 158 U/L (35-104) H Total Creatine Kinase 42 U/L (26-140) Creatine Kinase MB 1.6 ng/mL (< 3.8) Creatine Kinase MB Relative Index 3.8 Troponin I < 0.30 ng/mL (<=0.30) Total Protein 7.5 g/dL (6.6-8.7) Albumin 3.0 g/dL (3.5-5.2) L Globulin 4.5 g/dL Albumin/Globulin Ratio 0.6 (1.0-2.7) L Urine Color Pale yellow Urine Appearance Slightly cloudy Urine pH 5 (4.5-8.0) Urine Specific [place] 1.015 (1.005-1.035) Urine Protein 1+ (NEGATIVE) H Urine Glucose (UA) Negative (NEGATIVE) Urine Ketones Negative (NEGATIVE) Urine Occult Blood 2+ (NEGATIVE) H Urine Nitrite Negative (NEGATIVE) Urine Bilirubin Negative (NEGATIVE) Urine Urobilinogen Normal MG/DL (0.0-1.0) Urine Leukocyte Esterase 2+ (NEGATIVE) H Urine RBC 2-4 /HPF (0 - 2) H Urine WBC 10-15 /HPF (0 - 2) H Urine Squamous Epithelial Cells Occasional /LPF Urine Bacteria Many /HPF (NONE) H Height (Feet): 5 Height (Inches): 5.00 Weight (Pounds): 300 Medications Current Medications Medications (Trade) Dose Ordered Sig/Pavel Route PRN Reason Start Time Stop Time Status Last Admin Dose Admin Acetaminophen (Tylenol) 650 mg Q4H PRN ORAL T>100.5 09/10/16 15:45 10/10/16 15:44 Albuterol/ Ipratropium (DuoNeb 0.5-3(2.5)mg/3ml) 3 ml Q4H PRN HHN dyspnea 09/10/16 15:45 09/15/16 15:44 Aztreonam/Dextrose (Azactam/D5W) 55 ml @ 110 mls/hr Q8HR IVPB 09/11/16 06:00 09/18/16 05:59 Clonidine HCl (Catapres) 0.1 mg Q4H PRN ORAL SBP>160 09/10/16 15:45 10/10/16 15:44 Clopidogrel Bisulfate (Plavix) 75 mg DAILY ORAL 09/11/16 09:00 10/11/16 08:59 Dextrose STAT PRN IV Hypoglycemia 09/10/16 15:45 10/10/16 15:44 Gabapentin (Neurontin) 300 mg DAILY ORAL 09/11/16 09:00 10/11/16 08:59 Heparin Sodium (Porcine) (Heparin 5000 units/ml) 5,000 units EVERY 12 HOURS SUBQ 09/10/16 21:00 10/10/16 20:59 09/10/16 22:26 Insulin Aspart (NovoLOG) BEFORE MEALS AND HS SUBQ 09/10/16 21:00 10/10/16 20:59 09/10/16 22:28 Lorazepam (Ativan 2mg/ml 1ml) 0.5 mg Q4H PRN IV For Anxiety 09/10/16 15:45 09/17/16 15:44 Losartan Potassium (Cozaar) 12.5 mg DAILY ORAL 09/11/16 09:00 10/11/16 08:59 Methylprednisolone Sodium Succinate (Solu-MEDROL) 60 mg EVERY 6 HOURS IV 09/11/16 00:00 10/11/16 00:00 09/10/16 22:29 Metoprolol Tartrate (Lopressor) 25 mg EVERY 12 HOURS ORAL 09/10/16 21:00 10/10/16 20:59 09/10/16 22:29 Morphine Sulfate (Morphine Sulfate) 2 mg Q4H PRN IVP Severe Pain (Pain Scale 7-10) 09/10/16 15:45 09/17/16 15:44 Nateglinide (Starlix) 90 mg BEFORE MEALS ORAL 09/11/16 06:30 10/11/16 06:29 Nitroglycerin (Ntg) 0.4 mg Q5M X 3 DOSES PRN SL Prn Chest Pain 09/10/16 15:45 10/10/16 15:44 Ondansetron HCl (Zofran) 4 mg Q6H PRN IVP Nausea & Vomiting 09/10/16 15:45 10/10/16 15:44 Promethazine HCl/ Codeine (Phenergan with Codeine) 5 ml Q6H PRN ORAL For Cough 09/10/16 15:45 10/10/16 15:44 Sertraline HCl (Zoloft) 25 mg DAILY ORAL 09/11/16 09:00 10/11/16 08:59 Simethicone (Mylicon) 160 mg Q8H PRN ORAL Abdominal cramps 09/10/16 15:45 10/10/16 15:44 Temazepam (Restoril) 15 mg HSPRN PRN ORAL Insomnia 09/10/16 21:00 09/17/16 20:59 Theophylline (Claudio-Dur) 100 mg EVERY 12 HOURS ORAL 09/10/16 21:00 10/10/16 20:59 09/10/16 22:28 Assessment/Plan Problem List: (1) COPD exacerbation ICD Codes: J44.1 - Chronic obstructive pulmonary disease with (acute) exacerbation SNOMED: 917997825, 975242992 (2) Sepsis ICD Codes: A41.9 - Sepsis, unspecified organism SNOMED: 41173487 (3) ARF (acute renal failure) ICD Codes: N17.9 - Acute kidney failure, unspecified SNOMED: 18572887 (4) DM (diabetes mellitus) ICD Codes: E11.9 - Type 2 diabetes mellitus without complications SNOMED: 15216662 (5) Sleep apnea ICD Codes: G47.30 - Sleep apnea, unspecified SNOMED: 07578798 (6) Hypertension ICD Codes: I10 - Essential (primary) hypertension SNOMED: 76048995 (7) Cardiomegaly ICD Codes: I51.7 - Cardiomegaly SNOMED: 2158395 Assessment/Plan Respiratory treatment check sputum check urine cultures f/u electrolytes dvt prophylaxis repeat cxr in a few days DIONI TRIANA September 10, 2016 23:59
[2016-09-11] VITALS: BP 114/57
[2016-09-11 04:00] VITALS: BP 159/69
[2016-09-11] MEDS ORDERED: OMEPRAZOLE40 M1 ORAL (04:03)
[2016-09-11] MEDS ORDERED: VITAMIN C250 MG ORAL (04:03)
[2016-09-11] MEDS: NovoLOG Insulin Flexpen SUBQ SCH ×4 (06:37→21:25)
[2016-09-11] MEDS: Solu-MEDROL 125mg Inj IV SCH ×2 (06:39→11:27)
[2016-09-11] MEDS: Aztreonam 0.5gm/D5W 55ml IVPB SCH ×6 (06:39→21:24)
[2016-09-11] MEDS: Nateglinide 60mg tab ORAL SCH ×3 (06:43→16:43)
[2016-09-11 07:58] LABS: MEAN CORPUSCULAR HEMOGLOBIN 30.5 PG (27.0-31.0); MEAN CORPUSCULAR HGB CONC 31.5 G/DL (32.0-36.0); MEAN CORPUSCULAR VOLUME 97 FL (80-99); MEAN PLATELET VOLUME 7.7 FL (6.5-10.1); PLATELET COUNT 84 K/UL (150-450); RED BLOOD COUNT 3.12 M/UL (4.20-5.40); RED CELL DISTRIBUTION WIDTH 14.4 % (11.6-14.8); WHITE BLOOD COUNT 5.6 K/UL (4.8-10.8)
[2016-09-11 08:00] VITALS: BP 151/97
[2016-09-11 08:59] LABS: ALANINE AMINOTRANSFERASE 13 U/L (3-33); ALBUMIN/GLOBULIN RATIO 0.6 (1.0-2.7); ANION GAP 17 (5-15); ASPARTATE AMINO TRANSFERASE 42 U/L (5-40); CALCIUM 10.2 mg/dL (8.6-10.2); CARBON DIOXIDE 18 mEQ/L (20-30); CHLORIDE 102 mEQ/L (98-107); CREATININE 1.5 mg/dL (0.5-0.9); HEMOLYSIS 4; POTASSIUM 4.9 mEQ/L (3.4-4.9); SODIUM 137 mEQ/L (135-145); TOTAL PROTEIN 7.5 g/dL (6.6-8.7)
[2016-09-11] MEDS: Heparin 5000 units/ml inj SUBQ SCH ×2 (09:00→21:00)
[2016-09-11] MEDS ORDERED: Losartan 25mg tab ORAL SCH (09:00)
[2016-09-11] MEDS ORDERED: Sertraline 50mg tab ORAL SCH (09:00)
[2016-09-11] MEDS: Theophylline ER 100mg ORAL SCH ×2 (09:13→21:13)
[2016-09-11] MEDS: Metoprolol 25mg tab ORAL SCH ×2 (09:14→21:14)
[2016-09-11] MEDS ORDERED: Dyna-Hex 2% Top Sol 8oz TOPIC SCH (11:00)
--- NOTE | 2016-09-11 11:14 | General Progress Note ---
Assessment/Plan Assessment/Plan Assessment - Resp infection / reactive airways - Obesity - [place]UR[place] with cirrhosis - h/o coagulopathy - DM - HTN - YELENA - CHF - Anemia Recommendations - Check AFP - Recent abd u/s --> cirrhosis with no mass - low salt diet - abx/RT - watch glucose on steroids Subjective Allergies: Coded Allergies: PENICILLINS (Unverified Allergy, Unknown, 03/22/15) Objective Last 24 Hour Vital Signs Date Time Temp Pulse Resp B/P Pulse Ox O2 Delivery O2 Flow Rate FiO2 09/11/16 09:14 92 151/97 09/11/16 09:14 151/97 09/11/16 08:00 97.0 92 18 151/97 Nasal Cannula 2.0 99 09/11/16 04:00 90 09/11/16 04:00 97.5 87 20 159/69 96 Room Air 09/11/16 00:00 98.0 96 22 114/57 98 Nasal Cannula 2.0 09/11/16 00:00 93 09/10/16 22:29 92 123/71 09/10/16 20:36 Nasal Cannula 2.0 28 09/10/16 20:36 98 Nasal Cannula 2.0 09/10/16 20:00 93 09/10/16 20:00 97.8 92 21 123/71 98 Nasal Cannula 2.0 09/10/16 19:11 97.5 93 25 123/74 100 Nasal Cannula 3.0 09/10/16 18:23 92 12 132/62 100 Nasal Cannula 2.0 09/10/16 17:34 104 15 Nasal Cannula 2.0 09/10/16 17:34 98.7 104 15 133/51 100 Nasal Cannula 2.0 09/10/16 15:30 98.1 106 15 147/74 100 Nasal Cannula 2.0 09/10/16 15:05 81 15 100 Nasal Cannula 2.0 09/10/16 15:04 83 15 100 Nasal Cannula 2.0 09/10/16 14:54 82 14 100 Nasal Cannula 2.0 09/10/16 14:53 81 16 100 Nasal Cannula 2.0 09/10/16 14:44 81 16 100 Nasal Cannula 2.0 09/10/16 14:15 98.4 80 11 173/95 100 Nasal Cannula 2.0 09/10/16 14:15 80 11 Nasal Cannula 2.0 09/10/16 14:06 98.8 73 20 172/88 100 Nasal Cannula 4.0 Intake and Output 09/10/16 09/11/16 19:00 07:00 Intake Total 50 ml Output Total 500 ml Balance -500 ml 50 ml Intake IV Total 50 ml Output Urine Total 500 ml Laboratory Tests 09/10/16 14:30: White Blood Count 7.9, Red Blood Count 3.34L, Hemoglobin 10.1L, Hematocrit 32.2L , Mean Corpuscular Volume 96, Mean Corpuscular Hemoglobin 30.3, Mean Corpuscular Hemoglobin Concent 31.4L, Red Cell Distribution Width 14.5, Platelet Count 104L, Mean Platelet Volume 7.5, Neutrophils (%) (Auto) 55.6, Lymphocytes (%) (Auto) 23.5, Monocytes (%) (Auto) 9.9, Eosinophils (%) (Auto) 10.5H, Basophils (%) (Auto) 0.5, Sodium Level 136, Potassium Level 5.1H, Chloride Level 104, Carbon Dioxide Level 18L, Anion Gap 14, Blood Urea Nitrogen 31H, Creatinine 1.7H, Estimat Glomerular Filtration Rate , Glucose Level 105, Lactic Acid Level 1.10, Calcium Level 9.9, Total Bilirubin 0.7, Aspartate Amino Transf (AST/SGOT) 54H, Alanine Aminotransferase (ALT/SGPT) 14, Alkaline Phosphatase 158H, Total Creatine Kinase 42, Creatine Kinase MB 1.6, Creatine Kinase MB Relative Index 3.8, Troponin I < 0.30, Total Protein 7.5, Albumin 3.0L , Globulin 4.5, Albumin/Globulin Ratio 0.6L 09/10/16 15:22: Urine Color Pale yellow, Urine Appearance Slightly cloudy, Urine pH 5, Urine Specific [place] 1.015, Urine Protein 1+H, Urine Glucose (UA) Negative, Urine Ketones Negative, Urine Occult Blood 2+H, Urine Nitrite Negative, Urine Bilirubin Negative, Urine Urobilinogen Normal, Urine Leukocyte Esterase 2+H, Urine RBC 2-4H, Urine WBC 10-15H, Urine Squamous Epithelial Cells Occasional, Urine Bacteria ManyH 09/11/16 07:37: White Blood Count 5.6, Red Blood Count 3.12L, Hemoglobin 9.5L, Hematocrit 30.2L , Mean Corpuscular Volume 97, Mean Corpuscular Hemoglobin 30.5, Mean Corpuscular Hemoglobin Concent 31.5L, Red Cell Distribution Width 14.4, Platelet Count 84L, Mean Platelet Volume 7.7, Neutrophils (%) (Auto) , Lymphocytes (%) (Auto) , Monocytes (%) (Auto) , Eosinophils (%) (Auto) , Basophils (%) (Auto) , Sodium Level 137, Potassium Level 4.9, Chloride Level 102 , Carbon Dioxide Level 18L, Anion Gap 17H, Blood Urea Nitrogen 39H, Creatinine 1.5H, Estimat Glomerular Filtration Rate , Glucose Level 277#H, Calcium Level 10.2, Total Bilirubin 0.8, Aspartate Amino Transf (AST/SGOT) 42H, Alanine Aminotransferase (ALT/SGPT) 13, Alkaline Phosphatase 147H, Total Protein 7.5, Albumin 2.9L, Globulin 4.6, Albumin/Globulin Ratio 0.6L, Neutrophils % (Manual) [Pending], Lymphocytes % (Manual) [Pending], Platelet Estimate [Pending], Platelet Morphology [Pending] Height (Feet): 5 Height (Inches): 5.00 Weight (Pounds): 300 JENNIFERKIERSTEN JORDAN September 11, 2016 11:14
[2016-09-11 11:29] LABS: ANISOCYTOSIS 1+; BAND NEUTROPHILS % (MANUAL) 0 % (0-8); BASOPHILS % (MANUAL) 0 % (0-2); EOSINOPHILS % (MANUAL) 0 % (0-3); LYMPHOCYTES % (MANUAL) 33 % (20-45); NEUTROPHILS % (MANUAL) 66 % (45-75); PLATELET ESTIMATE DECREASED; PLATELET MORPHOLOGY NORMAL; TOTAL CELLS COUNTED 100
[2016-09-11 12:00] VITALS: BP 131/69
--- NOTE | 2016-09-11 13:45 | Pulmonology Progress Note ---
Assessment/Plan Problems: (1) COPD exacerbation (2) Sepsis (3) ARF (acute renal failure) (4) DM (diabetes mellitus) (5) Sleep apnea (6) Hypertension (7) Cardiomegaly Assessment/Plan taper steroids check cultures improving check cxr bnp in am sliding scale pt/ot Subjective ROS Limited/Unobtainable: No HEENT: Repors: no symptoms Allergies: Coded Allergies: PENICILLINS (Unverified Allergy, Unknown, 03/22/15) Objective Last 24 Hour Vital Signs Date Time Temp Pulse Resp B/P Pulse Ox O2 Delivery O2 Flow Rate FiO2 09/11/16 12:00 96.0 83 18 131/69 96 Room Air 09/11/16 09:47 94 09/11/16 09:14 92 151/97 09/11/16 09:14 151/97 09/11/16 08:35 Nasal Cannula 2.0 28 09/11/16 08:35 96 Nasal Cannula 2.0 99 09/11/16 08:35 92 18 Nasal Cannula 2.0 28 09/11/16 08:00 97.0 92 18 151/97 Nasal Cannula 2.0 99 09/11/16 04:00 90 09/11/16 04:00 97.5 87 20 159/69 96 Room Air 09/11/16 00:00 98.0 96 22 114/57 98 Nasal Cannula 2.0 09/11/16 00:00 93 09/10/16 22:29 92 123/71 09/10/16 20:36 Nasal Cannula 2.0 28 09/10/16 20:36 98 Nasal Cannula 2.0 09/10/16 20:00 93 09/10/16 20:00 97.8 92 21 123/71 98 Nasal Cannula 2.0 09/10/16 19:11 97.5 93 25 123/74 100 Nasal Cannula 3.0 09/10/16 18:23 92 12 132/62 100 Nasal Cannula 2.0 09/10/16 17:34 104 15 Nasal Cannula 2.0 09/10/16 17:34 98.7 104 15 133/51 100 Nasal Cannula 2.0 09/10/16 15:30 98.1 106 15 147/74 100 Nasal Cannula 2.0 09/10/16 15:05 81 15 100 Nasal Cannula 2.0 09/10/16 15:04 83 15 100 Nasal Cannula 2.0 09/10/16 14:54 82 14 100 Nasal Cannula 2.0 09/10/16 14:53 81 16 100 Nasal Cannula 2.0 09/10/16 14:44 81 16 100 Nasal Cannula 2.0 09/10/16 14:15 98.4 80 11 173/95 100 Nasal Cannula 2.0 09/10/16 14:15 80 11 Nasal Cannula 2.0 09/10/16 14:06 98.8 73 20 172/88 100 Nasal Cannula 4.0 Intake and Output 09/10/16 09/11/16 19:00 07:00 Intake Total 50 ml Output Total 500 ml Balance -500 ml 50 ml Intake IV Total 50 ml Output Urine Total 500 ml General Appearance: WD/WN, no acute distress HEENT: normocephalic Respiratory/Chest: chest wall non-tender, lungs clear Abdomen: normal bowel sounds, soft, non tender Genitourinary: normal external genitalia Extremities: no cyanosis Skin: no rash Microbiology Date/Time Source Procedure Growth Status 09/10/16 15:22 Urine,Clean Catch Urine Culture - Preliminary Gram Negative Bacillus 1 Resulted Laboratory Tests 09/10/16 14:30: White Blood Count 7.9, Red Blood Count 3.34L, Hemoglobin 10.1L, Hematocrit 32.2L , Mean Corpuscular Volume 96, Mean Corpuscular Hemoglobin 30.3, Mean Corpuscular Hemoglobin Concent 31.4L, Red Cell Distribution Width 14.5, Platelet Count 104L, Mean Platelet Volume 7.5, Neutrophils (%) (Auto) 55.6, Lymphocytes (%) (Auto) 23.5, Monocytes (%) (Auto) 9.9, Eosinophils (%) (Auto) 10.5H, Basophils (%) (Auto) 0.5, Sodium Level 136, Potassium Level 5.1H, Chloride Level 104, Carbon Dioxide Level 18L, Anion Gap 14, Blood Urea Nitrogen 31H, Creatinine 1.7H, Estimat Glomerular Filtration Rate , Glucose Level 105, Lactic Acid Level 1.10, Calcium Level 9.9, Total Bilirubin 0.7, Aspartate Amino Transf (AST/SGOT) 54H, Alanine Aminotransferase (ALT/SGPT) 14, Alkaline Phosphatase 158H, Total Creatine Kinase 42, Creatine Kinase MB 1.6, Creatine Kinase MB Relative Index 3.8, Troponin I < 0.30, Total Protein 7.5, Albumin 3.0L , Globulin 4.5, Albumin/Globulin Ratio 0.6L 09/10/16 15:22: Urine Color Pale yellow, Urine Appearance Slightly cloudy, Urine pH 5, Urine Specific [place] 1.015, Urine Protein 1+H, Urine Glucose (UA) Negative, Urine Ketones Negative, Urine Occult Blood 2+H, Urine Nitrite Negative, Urine Bilirubin Negative, Urine Urobilinogen Normal, Urine Leukocyte Esterase 2+H, Urine RBC 2-4H, Urine WBC 10-15H, Urine Squamous Epithelial Cells Occasional, Urine Bacteria ManyH 09/11/16 07:37: White Blood Count 5.6, Red Blood Count 3.12L, Hemoglobin 9.5L, Hematocrit 30.2L , Mean Corpuscular Volume 97, Mean Corpuscular Hemoglobin 30.5, Mean Corpuscular Hemoglobin Concent 31.5L, Red Cell Distribution Width 14.4, Platelet Count 84L, Mean Platelet Volume 7.7, Neutrophils (%) (Auto) , Lymphocytes (%) (Auto) , Monocytes (%) (Auto) , Eosinophils (%) (Auto) , Basophils (%) (Auto) , Sodium Level 137, Potassium Level 4.9, Chloride Level 102 , Carbon Dioxide Level 18L, Anion Gap 17H, Blood Urea Nitrogen 39H, Creatinine 1.5H, Estimat Glomerular Filtration Rate , Glucose Level 277#H, Calcium Level 10.2, Total Bilirubin 0.8, Aspartate Amino Transf (AST/SGOT) 42H, Alanine Aminotransferase (ALT/SGPT) 13, Alkaline Phosphatase 147H, Total Protein 7.5, Albumin 2.9L, Globulin 4.6, Albumin/Globulin Ratio 0.6L, Differential Total Cells Counted 100, Neutrophils % (Manual) 66, Lymphocytes % (Manual) 33, Monocytes % (Manual) 1, Eosinophils % (Manual) 0, Basophils % (Manual) 0, Band Neutrophils 0, Platelet Estimate DecreasedL, Platelet Morphology Normal, Hypochromasia , Anisocytosis 1+ Current Medications Medications (Trade) Dose Ordered Sig/Pavel Route PRN Reason Start Time Stop Time Status Last Admin Dose Admin Acetaminophen (Tylenol) 650 mg Q4H PRN ORAL T>100.5 09/10/16 15:45 10/10/16 15:44 09/11/16 09:16 Albuterol/ Ipratropium (DuoNeb 0.5-3(2.5)mg/3ml) 3 ml Q4H PRN HHN dyspnea 09/10/16 15:45 09/15/16 15:44 Aztreonam/Dextrose (Azactam/D5W) 55 ml @ 110 mls/hr Q8HR IVPB 09/11/16 06:00 09/18/16 05:59 09/11/16 06:39 Chlorhexidine Gluconate (Dianne-Hex 2%) 1 applic Q24H TOPIC 09/11/16 11:00 10/11/16 10:59 09/11/16 11:26 Clonidine HCl (Catapres) 0.1 mg Q4H PRN ORAL SBP>160 09/10/16 15:45 10/10/16 15:44 Clopidogrel Bisulfate (Plavix) 75 mg DAILY ORAL 09/11/16 09:00 10/11/16 08:59 09/11/16 09:13 Dextrose STAT PRN IV Hypoglycemia 09/10/16 15:45 10/10/16 15:44 Gabapentin (Neurontin) 300 mg DAILY ORAL 09/11/16 09:00 10/11/16 08:59 09/11/16 09:13 Heparin Sodium (Porcine) (Heparin 5000 units/ml) 5,000 units EVERY 12 HOURS SUBQ 09/10/16 21:00 10/10/16 20:59 09/10/16 22:26 Insulin Aspart (NovoLOG) BEFORE MEALS AND HS SUBQ 09/10/16 21:00 10/10/16 20:59 09/11/16 11:28 Lorazepam (Ativan 2mg/ml 1ml) 0.5 mg Q4H PRN IV For Anxiety 09/10/16 15:45 09/17/16 15:44 Losartan Potassium (Cozaar) 12.5 mg DAILY ORAL 09/11/16 09:00 10/11/16 08:59 09/11/16 09:14 Methylprednisolone Sodium Succinate (Solu-MEDROL) 60 mg EVERY 6 HOURS IV 09/11/16 00:00 10/11/16 00:00 09/11/16 11:27 Metoprolol Tartrate (Lopressor) 25 mg EVERY 12 HOURS ORAL 09/10/16 21:00 10/10/16 20:59 09/11/16 09:14 Morphine Sulfate (Morphine Sulfate) 2 mg Q4H PRN IVP Severe Pain (Pain Scale 7-10) 09/10/16 15:45 09/17/16 15:44 Nateglinide (Starlix) 90 mg BEFORE MEALS ORAL 09/11/16 06:30 10/11/16 06:29 09/11/16 11:26 Nitroglycerin (Ntg) 0.4 mg Q5M X 3 DOSES PRN SL Prn Chest Pain 09/10/16 15:45 10/10/16 15:44 Ondansetron HCl (Zofran) 4 mg Q6H PRN IVP Nausea & Vomiting 09/10/16 15:45 10/10/16 15:44 Promethazine HCl/ Codeine (Phenergan with Codeine) 5 ml Q6H PRN ORAL For Cough 09/10/16 15:45 10/10/16 15:44 Sertraline HCl (Zoloft) 25 mg DAILY ORAL 09/11/16 09:00 10/11/16 08:59 09/11/16 09:14 Simethicone (Mylicon) 160 mg Q8H PRN ORAL Abdominal cramps 09/10/16 15:45 10/10/16 15:44 Temazepam (Restoril) 15 mg HSPRN PRN ORAL Insomnia 09/10/16 21:00 09/17/16 20:59 Theophylline (Claudio-Dur) 100 mg EVERY 12 HOURS ORAL 09/10/16 21:00 10/10/16 20:59 09/11/16 09:13 DIONI TRIANA September 11, 2016 13:45
[2016-09-11] MEDS ORDERED: Solu-MEDROL 125mg Inj IV SCH ×2 (14:00→21:00)
[2016-09-11 16:00] VITALS: BP 121/76
--- NOTE | 2016-09-11 17:16 | Consultation ---
DATE OF CONSULTATION: 09/11/2016 GASTROLOGY CONSULTATION CHIEF COMPLAINT: I was asked to see this patient by Dr. Rl Tee for evaluation and followup of cirrhosis. HISTORY OF PRESENT ILLNESS: The patient is a pleasant 76-year-old white woman with a longstanding history of cirrhosis. She is being admitted for reactive airway disease and pneumonitis. The patient herself is a fair historian and most of the information is available from the previous encounters with this patient. The patient has had a history of obesity with nonalcoholic steatohepatitis with resultant cirrhosis. She has been followed conservatively given her poor functional status. She was noted to have some wheezing and reactive airways and was admitted. She feels better today. She has had a history of dysphagia requiring a temporary gastrostomy tube placement, which is removed. She has had multiple admissions to the hospital as outlined in previous notes. PAST MEDICAL HISTORY: History of diabetes, hypertension, obstructive sleep apnea, gastroesophageal reflux disease, hypercholesterolemia, cardiomyopathy, diabetic retinopathy, liver cirrhosis, fatty liver, debilitation, bedbound state, and status post gastrostomy tube placement and removal. MEDICATIONS: See chart list for details. Noted. FAMILY HISTORY: Noncontributory. SOCIAL HISTORY: The patient resides in a halfway. There has been no history of smoking or drinking. REVIEW OF SYSTEMS: Otherwise negative. PHYSICAL EXAMINATION: GENERAL: The patient is a pleasant obese woman seen in her room. HEENT: Normocephalic and atraumatic. Sclerae anicteric. Oropharynx clear. NECK: Supple. CHEST: Revealed coarse breath sounds. CARDIOVASCULAR: Revealed a regular rate. ABDOMEN: Soft and obese. EXTREMITIES: Revealed trace edema. LABORATORY DATA: Noted. ASSESSMENT: This patient has a long-standing history of cirrhosis due to nonalcoholic steatohepatitis and cirrhosis. She will need to be monitored for hepatic encephalopathy and also for development of hepatocellular carcinoma. She has had a recent abdominal ultrasound and therefore, repeat at this time is not necessary. Thereafter, the protein and ammonia level can be checked to monitor the levels. Oral intake should be encouraged and low-sodium diet should be advised. I will follow this patient with you. RECOMMENDATIONS: Per above discussion and per orders written in the chart. Thank you for asking me to participate in the care of this patient. Yokasta Torres M.D. DR: TOM JOB#: [id number] CC:
--- NOTE | 2016-09-11 19:21 | History & Physical ---
History and Physical History & Physicial Dictated for Int Med-Dr Tee no. [id number]. KATHARINA POND September 11, 2016 19:21
[2016-09-11 20:00] VITALS: BP 148/73
--- NOTE | 2016-09-11 21:46 | Consultation ---
DATE OF CONSULTATION: 09/11/2016 CONSULTING PHYSICIAN: Oj Medel M.D. HISTORY OF PRESENT ILLNESS: The patient is a 76-year-old female with a history of major depressive disorder, well known to this physician. I had to treat the patient at [facility]. The patient is currently stable. No behavioral issues. Complained of decreased energy and anhedonia. No manic or psychotic symptoms. The patient has been stable on Zoloft. She has mild memory impairment. No suicidal or homicidal ideations. No manic or psychotic symptoms. PAST PSYCHIATRIC HISTORY: She has been diagnosed with depression and anxiety, been treated with Zoloft. PAST MEDICAL HISTORY: Significant for diabetes, COPD, GERD, hypercholesterolemia, cardiomyopathy, and hypertension. ALLERGIES: Penicillin. SUBSTANCE ABUSE HISTORY: There is no history of illicit drug use or alcohol. SOCIAL HISTORY: The patient lives in a nursing facility. Family involved in her life. MENTAL STATUS EXAMINATION: Alert and oriented x3, person, place, and situation. Mood is neutral to anxious. Affect is constricted, congruent with mood. Thought process is linear. Thought content, no suicidal or homicidal ideation. Cognition is mildly impaired. Insight and judgment are fair. ASSESSMENT: AXIS I: Major depressive disorder, recurrent and mild. AXIS II: Deferred. AXIS III: Chronic obstructive pulmonary disease. AXIS IV: Low. AXIS V: Global assessment of functioning is 50. PLAN: 1. The patient's Zoloft will be restarted as when the patient is not taking the Zoloft, her depressive symptoms returned. 2. We will continue to follow the patient and monitor her depressive symptoms. Oj Medel M.D. DR: KRISHAN JOB#: [id number] CC:
--- NOTE | 2016-09-11 22:17 | History and Physical Report ---
DATE OF ADMISSION: 09/10/2016 CHIEF COMPLAINT: The patient is a 76-year-old white female, who presents with chief complaint of cough and wheezing. HISTORY OF PRESENT ILLNESS: The patient is resident of [facility]. According to staff at [facility], the patient began to experience cough with wheezing one day prior to admission. The patient began to have low-grade fever. The patient was transferred to [facility] emergency room. The patient was admitted for wheezing and cough to rule out pneumonia. PAST MEDICAL HISTORY: Significant for 1. Type 2 diabetes. 2. Hypertension. 3. Obstructive sleep apnea. 4. Gastroesophageal reflux disease. 5. Hypercholesterolemia. 6. Cardiomyopathy. 7. Diabetic nephropathy. 8. Liver cirrhosis. 9. Fatty liver. PAST SURGICAL HISTORY: Significant for PEG placement with subsequent removal. MEDICATIONS: Current medications 1. Tylenol 650 mg one tablet p.o. q.4 h. p.r.n. 2. Atorvastatin 20 mg one tablet p.o. at bedtime. 3. Clopidogrel 75 mg one tablet p.o. daily. 4. Cranberry tablets 450 mg p.o. daily. 5. Benadryl 25 mg one tablet p.o. q.8 h. p.r.n. 6. Colace 100 mg one tablet p.o. twice daily. 7. Albuterol nebulized q.4 h. 8. Atrovent nebulized q.4 h. 9. Iron sulfate 325 mg one tablet p.o. daily. 10. Neurontin 300 mg one tablet p.o. three times daily. 11. Hydroxyzine 25 mg one tablet p.o. q.6 h. p.r.n. 12. Lactulose 10 g/15 mL, 20 g p.o. three times daily. 13. Levemir, unknown dose at bedtime. 14. Losartan 25 mg one-half tablet p.o. daily. 15. Magnesium chloride 64/108 one tablet p.o. daily. 16. Metoprolol 25 mg one tablet p.o. twice daily. 17. Multivitamin one tablet p.o. daily. 18. Nateglinide 60 mg 1.5 tablets p.o. before meals. 19. Nitroglycerin 0.4 mg sublingual. 20. [place] 10/325 mg one tablet p.o. q.6 h. p.r.n. 21. NovoLog sliding scale. 22. Omeprazole 20 mg one tablet p.o. daily. 23. MiraLAX 17 g p.o. daily. 24. Zantac 150 mg one tablet p.o. daily. 25. Reglan 5 mg one tablet p.o. twice daily. 26. Zoloft 25 mg two tablets p.o. daily. 27. Simethicone 80 mg two tablets p.o. q.8 h. p.r.n. 28. Temazepam 30 mg one tablet p.o. at bedtime p.r.n. 29. Vitamin C one tablet p.o. daily. ALLERGIES: Penicillin. SOCIAL HISTORY: The patient is . The patient is a resident of [facility]. The patient denies tobacco or alcohol use. REVIEW OF SYSTEMS: Constitutional: The patient denies weight loss or weight gain. The patient complains of subjective fevers and chills. HEENT: The patient denies ear or throat pain. The patient denies headache. Cardiovascular: The patient denies palpitations or chest pain. Chest: The patient complains of wheezing and nonproductive cough. Abdomen: The patient denies nausea, vomiting, or constipation. Genitourinary: The patient denies dysuria or increased frequency of urination. Neuromuscular: The patient denies seizures or generalized weakness. PHYSICAL EXAMINATION: GENERAL: The patient is well developed and well nourished obese white female, in no apparent distress. VITAL SIGNS: Temperature 96.0 degrees, respirations 18, pulse 83, and blood pressure 131/69. HEENT: Eyes, pupils are equal and responsive to light and accommodation. Extraocular movements are intact. NECK: Supple without lymphadenopathy. CHEST: Lungs are clear to auscultation bilaterally without wheezes or rales. CARDIOVASCULAR: Regular rate. S1 and S2. No murmurs, rubs, or gallops. ABDOMEN: Soft, nontender, and nondistended. Positive bowel sounds. No hepatosplenomegaly. Currently, no rebound or guarding noted. EXTREMITIES: Negative for clubbing, cyanosis, or edema. RECTAL/GENITAL: Refused. NEUROLOGIC: Cranial nerves II through XII are grossly intact without focal deficits. Motor strength is 5/5 bilaterally. Deep tendon reflexes are 2+ plantar. LABORATORY AND DIAGNOSTIC DATA: WBC 7.9, hemoglobin 10.1, hematocrit 32.3, and platelets 104,000. Sodium 136, potassium 5.1, chloride 104, CO2 18, BUN 31, creatinine 1.7 and glucose 105. Troponin less than 0.3. Chest x-ray revealed no acute disease. ASSESSMENT: This is a 76-year-old white female 1. Wheezing. 2. Cough. 3. Type 2 diabetes. 4. Hypertension. 5. Obstructive sleep apnea. 6. Gastroesophageal reflux disease. 7. Hypercholesterolemia. 8. Cardiomyopathy. 9. Diabetic peripheral neuropathy. 10. Cirrhosis of the liver. TREATMENT: 1. Wheezing/cough. A Pulmonary consultation will be obtained with Dr. Elena Melendez. The patient has been placed empirically on aztreonam for bronchitis. The patient is currently receiving albuterol and nebulized q.4 h. p.r.n. We will follow recommendations of Pulmonary. 2. Type 2 diabetes. Continue Levemir and NovoLog as above. Continue with Starlix as above. 3. Hypertension. Continue Toprol and Cozaar as above. 4. Obstructive sleep apnea. 5. Gastroesophageal reflux disease. Continue omeprazole and Zantac as above. 6. Hypercholesterolemia. Continue atorvastatin as above. 7. Cardiomyopathy. 8. Diabetic peripheral nephropathy. 9. Cirrhosis of the liver. Jed Guthrie M.D. DR: DEION JOB#: [id number] CC:
[2016-09-12] VITALS (8 sets, daily range): BP systolic 115–156; BP diastolic 69–88
[2016-09-12] MEDS ORDERED: Nitroglycerin Subl 0.4mg tab (Bottle Of 25) SL PRN (00:15)
[2016-09-12] MEDS ORDERED: Promethazine/Codeine 5ml UD ORAL PRN (03:45)
[2016-09-12] MEDS ORDERED: DuoNeb 0.5-3(2.5)mg/3ml neb HHN PRN (03:45)
[2016-09-12] MEDS ORDERED: LORazepam Inj 2mg/ml 1ml IV PRN (03:45)
[2016-09-12] MEDS ORDERED: Aztreonam Inj 0.5 GM in D5W 55 ML IVPB SCH (06:00)
[2016-09-12] MEDS: NovoLOG Insulin Flexpen SUBQ SCH ×4 (06:27→21:27)
[2016-09-12 07:07] LABS: MEAN CORPUSCULAR HEMOGLOBIN 30.2 PG (27.0-31.0); MEAN CORPUSCULAR HGB CONC 31.6 G/DL (32.0-36.0); MEAN CORPUSCULAR VOLUME 96 FL (80-99); MEAN PLATELET VOLUME 7.1 FL (6.5-10.1); PLATELET COUNT 98 K/UL (150-450); RED BLOOD COUNT 3.11 M/UL (4.20-5.40); WHITE BLOOD COUNT 7.8 K/UL (4.8-10.8)
[2016-09-12 07:18] LABS: ALANINE AMINOTRANSFERASE 12 U/L (3-33); ALBUMIN/GLOBULIN RATIO 0.6 (1.0-2.7); ANION GAP 15 (5-15); ASPARTATE AMINO TRANSFERASE 33 U/L (5-40); CALCIUM 10.1 mg/dL (8.6-10.2); CARBON DIOXIDE 21 mEQ/L (20-30); CHLORIDE 101 mEQ/L (98-107); CREATININE 1.5 mg/dL (0.5-0.9); HEMOLYSIS 2; POTASSIUM 4.9 mEQ/L (3.4-4.9); SODIUM 137 mEQ/L (135-145); TOTAL PROTEIN 7.6 g/dL (6.6-8.7)
[2016-09-12] MEDS ORDERED: Simethicone 80mg tab ORAL PRN (07:45)
[2016-09-12] MEDS: Heparin 5000 units/ml inj SUBQ SCH ×2 (07:59→20:34)
[2016-09-12] MEDS: Sertraline 50mg tab ORAL SCH (07:59)
[2016-09-12] MEDS: Theophylline ER 100mg ORAL SCH ×2 (07:59→21:17)
[2016-09-12] MEDS: Nateglinide 60mg tab ORAL SCH ×3 (07:59→16:38)
[2016-09-12] MEDS: Losartan 25mg tab ORAL SCH (08:11)
[2016-09-12] MEDS: Metoprolol 25mg tab ORAL SCH ×2 (08:11→21:17)
[2016-09-12] MEDS ORDERED: Sertraline 50mg tab ORAL SCH (09:00)
[2016-09-12] MEDS ORDERED: Solu-MEDROL 125mg Inj IV SCH (09:00)
[2016-09-12 09:45] LABS: BAND NEUTROPHILS % (MANUAL) 0 % (0-8); BASOPHILS % (MANUAL) 0 % (0-2); EOSINOPHILS % (MANUAL) 0 % (0-3); LYMPHOCYTES % (MANUAL) 15 % (20-45); NEUTROPHILS % (MANUAL) 83 % (45-75); PLATELET ESTIMATE DECREASED; PLATELET MORPHOLOGY NORMAL; TOTAL CELLS COUNTED 100
--- NOTE | 2016-09-12 10:38 | Consultation ---
Consult Note Assessment/Plan ID Dic # [id number] ASSESSMENT: 76 y/o female with: ]// propbable HCAP // / Recurrent UTI E.coli + , - CT A/P 09/2015: 9 x 4 mm left proximal ureteral stone with mild left hydronephrosis. // Hx of Rt leg cellulitis // hx of PICC infection and CoNS recurrent bacteremia : // Multiple superficial decubitis POA, not grossly infected // CKD3 // Hypercalcemia // DM2 // Obesity // MRSA, VRE colonized // PCN allergy - tolerates carbapenems // Full Code PLAN: - Start Merrem d# 1 / ( / SP Vanco d# 4 ) ( 06/26 SP Cefepime d# 3 ) ( 06/11 SP IV vancomycin, meropenem d# 3 ) - cultures ( Bl and Sp ) Cx - monitor CBC, temperatures - monitor BMP thank you LYLA ROJAS M.D. September 12, 2016 10:38
--- NOTE | 2016-09-12 10:54 | Diagnostic Imaging Report ---
Indication: DYSPNEA Technique: One view of the chest Comparison: 09/10/2016 Findings: Minimal atelectatic changes are seen in the left mid and lower lung. The heart is enlarged. The lungs and pleural spaces are otherwise clear. There is slightly better inspiration currently. As previously, there is evidence of prior upper lumbar vertebral augmentation Impression: Minimal atelectasis on the left. No acute process otherwise Cardiomegaly
[2016-09-12] MEDS: Dyna-Hex 2% Top Sol 8oz TOPIC SCH (12:46)
[2016-09-12] MEDS: Meropenem 1 GM in NS 110 ML IVPB SCH ×2 (13:23→21:16)
--- NOTE | 2016-09-12 18:11 | Pulmonology Progress Note ---
Assessment/Plan Problems: (1) COPD exacerbation (2) Sepsis (3) ARF (acute renal failure) (4) DM (diabetes mellitus) (5) Sleep apnea (6) Hypertension (7) Cardiomegaly Assessment/Plan dc steroids check cultures improving check cxr bnp innot much change sliding scale pt/ot on meropenem for MDR E. coli Subjective Interval Events: less short of breath Allergies: Coded Allergies: PENICILLINS (Unverified Allergy, Unknown, 03/22/15) Objective Last 24 Hour Vital Signs Date Time Temp Pulse Resp B/P Pulse Ox O2 Delivery O2 Flow Rate FiO2 09/12/16 16:33 97.9 89 20 115/69 97 Room Air 09/12/16 16:00 97.3 89 20 115/69 97 Room Air 09/12/16 12:09 97.5 79 19 155/88 96 Room Air 09/12/16 08:11 88 170/91 09/12/16 08:11 170/91 09/12/16 08:00 98.4 93 20 145/79 98 Room Air 09/12/16 07:40 98 Nasal Cannula 2.0 09/12/16 07:40 Nasal Cannula 2.0 28 09/12/16 07:40 83 18 Nasal Cannula 2.0 28 09/12/16 04:33 98.1 84 20 150/85 99 Room Air 09/12/16 00:00 97.8 99 21 143/76 96 Room Air 09/11/16 21:14 96 148/73 09/11/16 20:00 98.0 96 20 148/73 96 Room Air 09/11/16 19:32 Nasal Cannula 2.0 28 09/11/16 19:32 96 Nasal Cannula 2.0 09/11/16 19:31 86 18 Nasal Cannula 2.0 28 Intake and Output 09/11/16 09/12/16 19:00 07:00 Intake Total 110 ml 240 ml Output Total 1700 ml Balance 110 ml -1460 ml Intake Oral 240 ml IV Total 110 ml Output Urine Total 1700 ml # Voids 1 General Appearance: WD/WN HEENT: normocephalic, atraumatic Respiratory/Chest: chest wall non-tender, decreased breath sounds, crackles/ rales Cardiovascular: normal peripheral pulses, normal rate Abdomen: normal bowel sounds, soft, non tender Extremities: no cyanosis, no clubbing Neurologic/Psychiatric: shipper II-XII grossly normal, no motor/sensory deficits Lymphatic: no neck adenopathy Musculoskeletal: normal muscle bulk Microbiology Date/Time Source Procedure Growth Status 09/10/16 14:30 Blood Blood Culture - Preliminary NO GROWTH AFTER 24 HOURS Resulted 09/10/16 14:15 Blood Blood Culture - Preliminary NO GROWTH AFTER 24 HOURS Resulted 09/10/16 15:22 Urine,Clean Catch Urine Culture - Final Escherichia Coli Complete Laboratory Tests 09/12/16 05:05: White Blood Count 7.8, Red Blood Count 3.11L, Hemoglobin 9.4L, Hematocrit 29.7L , Mean Corpuscular Volume 96, Mean Corpuscular Hemoglobin 30.2, Mean Corpuscular Hemoglobin Concent 31.6L, Red Cell Distribution Width 14.0, Platelet Count 98L, Mean Platelet Volume 7.1, Neutrophils (%) (Auto) , Lymphocytes (%) (Auto) , Monocytes (%) (Auto) , Eosinophils (%) (Auto) , Basophils (%) (Auto) , Differential Total Cells Counted 100, Neutrophils % ( Manual) 83H, Lymphocytes % (Manual) 15L, Monocytes % (Manual) 2, Eosinophils % ( Manual) 0, Basophils % (Manual) 0, Band Neutrophils 0, Platelet Estimate DecreasedL, Platelet Morphology Normal, Red Blood Cell Morphology Normal, Sodium Level 137, Potassium Level 4.9, Chloride Level 101, Carbon Dioxide Level 21, Anion Gap 15, Blood Urea Nitrogen 50H, Creatinine 1.5H, Estimat Glomerular Filtration Rate , Glucose Level 316H, Calcium Level 10.1, Total Bilirubin 0.6, Aspartate Amino Transf (AST/SGOT) 33, Alanine Aminotransferase (ALT/SGPT) 12, Alkaline Phosphatase 131H, Pro-B-Type Natriuretic Peptide 1316H, Total Protein 7.6, Albumin 2.9L, Globulin 4.7, Albumin/Globulin Ratio 0.6L, Alpha Fetoprotein [Pending] Current Medications Medications (Trade) Dose Ordered Sig/Pavel Route PRN Reason Start Time Stop Time Status Last Admin Dose Admin Acetaminophen (Tylenol) 650 mg Q4H PRN ORAL T>100.5 09/12/16 03:45 10/12/16 03:44 Albuterol/ Ipratropium (DuoNeb 0.5-3(2.5)mg/3ml) 3 ml Q4H PRN HHN dyspnea 09/12/16 03:45 09/17/16 03:44 Chlorhexidine Gluconate (Dianne-Hex 2%) 1 applic Q24H TOPIC 09/12/16 11:00 10/12/16 10:59 09/12/16 12:46 Clonidine HCl (Catapres) 0.1 mg Q4H PRN ORAL SBP>160 09/12/16 03:45 10/12/16 03:44 Clopidogrel Bisulfate (Plavix) 75 mg DAILY ORAL 09/12/16 09:00 10/12/16 08:59 09/12/16 07:59 Dextrose (Dextrose 50%) STAT PRN IV Hypoglycemia 09/12/16 15:45 10/12/16 15:44 Gabapentin (Neurontin) 300 mg DAILY ORAL 09/12/16 09:00 10/12/16 08:59 09/12/16 07:58 Heparin Sodium (Porcine) (Heparin 5000 units/ml) 5,000 units EVERY 12 HOURS SUBQ 09/12/16 09:00 10/12/16 08:59 Insulin Aspart (NovoLOG) BEFORE MEALS AND HS SUBQ 09/12/16 06:30 10/12/16 06:29 09/12/16 16:38 Lorazepam (Ativan 2mg/ml 1ml) 0.5 mg Q4H PRN IV For Anxiety 09/12/16 03:45 09/19/16 03:44 Losartan Potassium (Cozaar) 12.5 mg DAILY ORAL 09/12/16 09:00 10/12/16 08:59 09/12/16 08:11 Meropenem/Sodium Chloride (Merrem/Sodium Chloride) 110 ml @ 220 mls/hr Q12HR IVPB 09/12/16 13:00 09/17/16 12:59 09/12/16 13:23 Methylprednisolone Sodium Succinate (Solu-MEDROL) 60 mg EVERY 12 HOURS IV 09/12/16 09:00 10/12/16 08:59 09/12/16 09:25 Metoprolol Tartrate (Lopressor) 25 mg EVERY 12 HOURS ORAL 09/12/16 09:00 10/12/16 08:59 09/12/16 08:11 Morphine Sulfate (Morphine Sulfate) 2 mg Q4H PRN IVP Severe Pain (Pain Scale 7-10) 09/12/16 03:45 09/19/16 03:44 Nateglinide (Starlix) 90 mg BEFORE MEALS ORAL 09/12/16 06:30 10/12/16 06:29 09/12/16 16:38 Nitroglycerin (Ntg) 0.4 mg Q5M X 3 DOSES PRN SL Prn Chest Pain 09/12/16 00:15 10/12/16 00:14 Ondansetron HCl (Zofran) 4 mg Q6H PRN IVP Nausea & Vomiting 09/12/16 03:45 10/12/16 03:44 Promethazine HCl/ Codeine (Phenergan with Codeine) 5 ml Q6H PRN ORAL For Cough 09/12/16 03:45 10/12/16 03:44 Sertraline HCl (Zoloft) 50 mg DAILY ORAL 09/12/16 09:00 10/12/16 08:59 09/12/16 07:59 Simethicone (Mylicon) 160 mg Q8H PRN ORAL Abdominal cramps 09/12/16 07:45 10/12/16 07:44 Temazepam (Restoril) 15 mg HSPRN PRN ORAL Insomnia 09/12/16 21:00 09/19/16 20:59 Theophylline 100 mg 100 mg EVERY 12 HOURS ORAL 09/12/16 09:00 10/12/16 08:59 09/12/16 07:59 DIONI TRIANA September 12, 2016 18:11
--- NOTE | 2016-09-12 19:46 | Consultation ---
DATE OF CONSULTATION: INFECTIOUS DISEASE CONSULTATION CONSULTING PHYSICIAN: Eitan Stark M.D. REFERRING PHYSICIAN: 1. Elena Melendez M.D. 2. Jed Guthrie M.D. REASON FOR CONSULTATION: Evaluation of the patient for pneumonia, trach infection, and antibiotic management. HISTORY OF PRESENT ILLNESS: The patient is a 76-year-old female, who is well known to our service from prior admissions, was admitted to this medical center due to cough and shortness of breath. The patient is overall a poor historian, confused, and not able to provide detailed information. The patient's urine culture is growing E. coli. An Infectious Disease consultation has been requested for further evaluation of the patient and antibiotic management. PAST MEDICAL HISTORY: 1. History of right leg cellulitis. 2. History of PICC line infections in the past. 3. History of ESBL E. coli urinary tract infection. 4. CKD. 5. Hypertension. 6. Diabetes. 7. Obesity. 8. MRSA and VRE colonization. 9. History of penicillin allergy, however, the patient tolerates carbapenems and cephalosporins. MEDICATIONS: Solu-Medrol and aztreonam. ALLERGIES: Penicillin. FAMILY HISTORY: Noncontributory. REVIEW OF SYSTEMS: Unobtainable. The patient is confused. PHYSICAL EXAMINATION: VITAL SIGNS: Temperature 98.4 degrees, blood pressure 145/79, pulse 86, and respiratory rate 18. HEENT: Mild pale conjunctivae. No icterus. NECK: No lymphadenopathy. CHEST: Coarse breathing sounds. HEART: S1 and S2. ABDOMEN: Soft and obese. EXTREMITIES: No cyanosis. NEUROLOGIC: Awake. LABORATORY DATA: White blood cells 7.8, hemoglobin 9.4, and platelets 98,000. UA showed 10 to 15 white blood cells. BUN 50 and creatinine 0.5. Urine culture is growing E. coli, sensitive to amikacin, carbapenems, and Zosyn. Chest x-ray showed minimal atelectasis of the lung, no acute process. ASSESSMENT: The patient is a 76-year-old female with multiple medical problems, who has been admitted to this medical center due to recurrent urinary tract infection. The patient may have healthcare-associated pneumonia. At this point, we may get a chest x-ray in view of the patient having history of cough and shortness of breath. PLAN: 1. We will change Azactam to meropenem as the patient has tolerated in the past, day #1 of #5 to #7. 2. Monitor CBC. 3. Monitor BMP. 4. Monitor cultures (blood and sputum). 5. Monitor chest x-ray. 6. Based on the patient's clinical course and labs, we will do further recommendations. Thank you, Dr. Melendez and Dr. Guthrie, for allowing me to participate in the care of this patient. I will follow the patient with you during this hospitalization. Eitan Stark M.D. DR: BERTHA JOB#: [id number] CC:
--- NOTE | 2016-09-12 20:03 | Internal Med Progress Note ---
Subjective Physician Name Rl Tee Attending Physician Rl Tee MD Current Medications Medications (Trade) Dose Ordered Sig/Pavel Route PRN Reason Start Time Stop Time Status Last Admin Dose Admin Acetaminophen (Tylenol) 650 mg Q4H PRN ORAL T>100.5 09/12/16 03:45 10/12/16 03:44 Albuterol/ Ipratropium (DuoNeb 0.5-3(2.5)mg/3ml) 3 ml Q4H PRN HHN dyspnea 09/12/16 03:45 09/17/16 03:44 Chlorhexidine Gluconate (Dianne-Hex 2%) 1 applic Q24H TOPIC 09/12/16 11:00 10/12/16 10:59 09/12/16 12:46 Clonidine HCl (Catapres) 0.1 mg Q4H PRN ORAL SBP>160 09/12/16 03:45 10/12/16 03:44 Clopidogrel Bisulfate (Plavix) 75 mg DAILY ORAL 09/12/16 09:00 10/12/16 08:59 09/12/16 07:59 Dextrose (Dextrose 50%) STAT PRN IV Hypoglycemia 09/12/16 15:45 10/12/16 15:44 Gabapentin (Neurontin) 300 mg DAILY ORAL 09/12/16 09:00 10/12/16 08:59 09/12/16 07:58 Heparin Sodium (Porcine) (Heparin 5000 units/ml) 5,000 units EVERY 12 HOURS SUBQ 09/12/16 09:00 10/12/16 08:59 Insulin Aspart (NovoLOG) BEFORE MEALS AND HS SUBQ 09/12/16 06:30 10/12/16 06:29 09/12/16 16:38 Lorazepam (Ativan 2mg/ml 1ml) 0.5 mg Q4H PRN IV For Anxiety 09/12/16 03:45 09/19/16 03:44 Losartan Potassium (Cozaar) 12.5 mg DAILY ORAL 09/12/16 09:00 10/12/16 08:59 09/12/16 08:11 Meropenem/Sodium Chloride (Merrem/Sodium Chloride) 110 ml @ 220 mls/hr Q12HR IVPB 09/12/16 13:00 09/17/16 12:59 09/12/16 13:23 Metoprolol Tartrate (Lopressor) 25 mg EVERY 12 HOURS ORAL 09/12/16 09:00 10/12/16 08:59 09/12/16 08:11 Morphine Sulfate (Morphine Sulfate) 2 mg Q4H PRN IVP Severe Pain (Pain Scale 7-10) 09/12/16 03:45 09/19/16 03:44 Nateglinide (Starlix) 90 mg BEFORE MEALS ORAL 09/12/16 06:30 10/12/16 06:29 09/12/16 16:38 Nitroglycerin (Ntg) 0.4 mg Q5M X 3 DOSES PRN SL Prn Chest Pain 09/12/16 00:15 10/12/16 00:14 Ondansetron HCl (Zofran) 4 mg Q6H PRN IVP Nausea & Vomiting 09/12/16 03:45 10/12/16 03:44 Promethazine HCl/ Codeine (Phenergan with Codeine) 5 ml Q6H PRN ORAL For Cough 09/12/16 03:45 10/12/16 03:44 Sertraline HCl (Zoloft) 50 mg DAILY ORAL 09/12/16 09:00 10/12/16 08:59 09/12/16 07:59 Simethicone (Mylicon) 160 mg Q8H PRN ORAL Abdominal cramps 09/12/16 07:45 10/12/16 07:44 Temazepam (Restoril) 15 mg HSPRN PRN ORAL Insomnia 09/12/16 21:00 09/19/16 20:59 Theophylline 100 mg 100 mg EVERY 12 HOURS ORAL 09/12/16 09:00 10/12/16 08:59 09/12/16 07:59 Allergies: Coded Allergies: PENICILLINS (Unverified Allergy, Unknown, 03/22/15) Subjective awake, alert, more responsive but some confusion, NAD, No chest pain or SOB Objective Last Vital Signs Date Time Temp Pulse Resp B/P Pulse Ox O2 Delivery O2 Flow Rate FiO2 09/12/16 16:33 97.9 89 20 115/69 97 Room Air 09/12/16 07:40 2.0 09/12/16 07:40 28 Laboratory Tests Test 09/12/16 05:05 White Blood Count 7.8 K/UL (4.8-10.8) Red Blood Count 3.11 M/UL (4.20-5.40) L Hemoglobin 9.4 G/DL (12.0-16.0) L Hematocrit 29.7 % (37.0-47.0) L Mean Corpuscular Volume 96 FL (80-99) Mean Corpuscular Hemoglobin 30.2 PG (27.0-31.0) Mean Corpuscular Hemoglobin Concent 31.6 G/DL (32.0-36.0) L Red Cell Distribution Width 14.0 % (11.6-14.8) Platelet Count 98 K/UL (150-450) L Mean Platelet Volume 7.1 FL (6.5-10.1) Neutrophils (%) (Auto) % (45.0-75.0) Lymphocytes (%) (Auto) % (20.0-45.0) Monocytes (%) (Auto) % (1.0-10.0) Eosinophils (%) (Auto) % (0.0-3.0) Basophils (%) (Auto) % (0.0-2.0) Differential Total Cells Counted 100 Neutrophils % (Manual) 83 % (45-75) H Lymphocytes % (Manual) 15 % (20-45) L Monocytes % (Manual) 2 % (1-10) Eosinophils % (Manual) 0 % (0-3) Basophils % (Manual) 0 % (0-2) Band Neutrophils 0 % (0-8) Platelet Estimate Decreased L Platelet Morphology Normal Red Blood Cell Morphology Normal Sodium Level 137 mEQ/L (135-145) Potassium Level 4.9 mEQ/L (3.4-4.9) Chloride Level 101 mEQ/L (98-107) Carbon Dioxide Level 21 mEQ/L (20-30) Anion Gap 15 (5-15) Blood Urea Nitrogen 50 mg/dL (7-23) H Creatinine 1.5 mg/dL (0.5-0.9) H Estimat Glomerular Filtration Rate mL/min (>60) Glucose Level 316 mg/dL (74-106) H Calcium Level 10.1 mg/dL (8.6-10.2) Total Bilirubin 0.6 mg/dL (0.0-1.2) Aspartate Amino Transf (AST/SGOT) 33 U/L (5-40) Alanine Aminotransferase (ALT/SGPT) 12 U/L (3-33) Alkaline Phosphatase 131 U/L (35-104) H Pro-B-Type Natriuretic Peptide 1316 pg/mL (0-450) H Total Protein 7.6 g/dL (6.6-8.7) Albumin 2.9 g/dL (3.5-5.2) L Globulin 4.7 g/dL Albumin/Globulin Ratio 0.6 (1.0-2.7) L Alpha Fetoprotein Pending Microbiology Date/Time Source Procedure Growth Status 09/10/16 14:30 Blood Blood Culture - Preliminary NO GROWTH AFTER 24 HOURS Resulted 09/10/16 14:15 Blood Blood Culture - Preliminary NO GROWTH AFTER 24 HOURS Resulted 09/10/16 15:22 Urine,Clean Catch Urine Culture - Final Escherichia Coli Complete Intake and Output 09/11/16 09/12/16 19:00 07:00 Intake Total 110 ml 240 ml Output Total 1700 ml Balance 110 ml -1460 ml Intake Oral 240 ml IV Total 110 ml Output Urine Total 1700 ml # Voids 1 Objective General: No acute distress, awake and responsive HEENT: NCAT, sclera anicteric, PERRL, EOMI. Neck: Supple, no significant jugular venous distention, Lungs: Good inspiratory effort, clear to auscultation bilaterally, no Wheeze Heart: Regular rate and rhythm, normal S1/S2, no murmurs Abdomen: soft, nontender, nondistended. Normoactive bowel sounds.Morbid obesity. / Rectal: Refused and deferred. Extremities: No Cyanosis , clubbing or edema. Neuro: A&O x 3, Able to move all extremities slowly. Skin: warm, no rashes or lesions Psych: Normal mood and affect Assessment/Plan Assessment/Plan 1. COPD exacerbation. 2. MDR E. Coli UTI. 3. Type 2 diabetes. 4. Hypertension. 5. Obstructive sleep apnea. 6. Gastroesophageal reflux disease. 7. Hypercholesterolemia. 8. Cardiomyopathy. 9. Diabetic peripheral neuropathy. 10. Cirrhosis of the liver. 11. RAMYA on CKD 12. Sepsis due to UTI. Plan: Abx: imipenem Neb Tx Full code Heparin SQ Neb Tx F/U with labs and cultures. Rl Tee MD September 12, 2016 20:03
[2016-09-12] MEDS: Morphine Sulfate 2mg/ml Inj IVP PRN (21:18)
--- NOTE | 2016-09-12 22:35 | General Progress Note ---
Assessment/Plan Assessment/Plan Assessment - Resp infection / reactive airways - Obesity - DURANT with cirrhosis - h/o coagulopathy - DM - HTN - YELENA - CHF - Anemia Recommendations - Check AFP - Recent abd u/s --> cirrhosis with no mass - low salt diet - abx/RT - watch glucose on steroids Subjective Allergies: Coded Allergies: PENICILLINS (Unverified Allergy, Unknown, 03/22/15) Subjective Feels OK no abd pain (+) soft BM tolerating PO Objective Last 24 Hour Vital Signs Date Time Temp Pulse Resp B/P Pulse Ox O2 Delivery O2 Flow Rate FiO2 09/12/16 21:48 97.7 09/12/16 21:17 71 156/72 09/12/16 20:00 97.7 71 20 156/72 96 Room Air 09/12/16 19:30 Room Air 09/12/16 19:30 98 Room Air 2.0 09/12/16 19:30 84 18 Nasal Cannula 2.0 09/12/16 16:33 97.9 89 20 115/69 97 Room Air 09/12/16 16:00 97.3 89 20 115/69 97 Room Air 09/12/16 12:09 97.5 79 19 155/88 96 Room Air 09/12/16 08:11 88 170/91 09/12/16 08:11 170/91 09/12/16 08:00 98.4 93 20 145/79 98 Room Air 09/12/16 07:40 98 Nasal Cannula 2.0 09/12/16 07:40 Nasal Cannula 2.0 28 09/12/16 07:40 83 18 Nasal Cannula 2.0 09/12/16 04:33 98.1 84 20 150/85 99 Room Air 09/12/16 00:00 97.8 99 21 143/76 96 Room Air Intake and Output 09/11/16 09/12/16 19:00 07:00 Intake Total 110 ml 240 ml Output Total 1700 ml Balance 110 ml -1460 ml Intake Oral 240 ml IV Total 110 ml Output Urine Total 1700 ml # Voids 1 Laboratory Tests 09/12/16 05:05: White Blood Count 7.8, Red Blood Count 3.11L, Hemoglobin 9.4L, Hematocrit 29.7L , Mean Corpuscular Volume 96, Mean Corpuscular Hemoglobin 30.2, Mean Corpuscular Hemoglobin Concent 31.6L, Red Cell Distribution Width 14.0, Platelet Count 98L, Mean Platelet Volume 7.1, Neutrophils (%) (Auto) , Lymphocytes (%) (Auto) , Monocytes (%) (Auto) , Eosinophils (%) (Auto) , Basophils (%) (Auto) , Differential Total Cells Counted 100, Neutrophils % ( Manual) 83H, Lymphocytes % (Manual) 15L, Monocytes % (Manual) 2, Eosinophils % ( Manual) 0, Basophils % (Manual) 0, Band Neutrophils 0, Platelet Estimate DecreasedL, Platelet Morphology Normal, Red Blood Cell Morphology Normal, Sodium Level 137, Potassium Level 4.9, Chloride Level 101, Carbon Dioxide Level 21, Anion Gap 15, Blood Urea Nitrogen 50H, Creatinine 1.5H, Estimat Glomerular Filtration Rate , Glucose Level 316H, Calcium Level 10.1, Total Bilirubin 0.6, Aspartate Amino Transf (AST/SGOT) 33, Alanine Aminotransferase (ALT/SGPT) 12, Alkaline Phosphatase 131H, Pro-B-Type Natriuretic Peptide 1316H, Total Protein 7.6, Albumin 2.9L, Globulin 4.7, Albumin/Globulin Ratio 0.6L, Alpha Fetoprotein [Pending] Height (Feet): 5 Height (Inches): 5.00 Weight (Pounds): 300 Objective Obese WW Alert NCAT Supple CTA RRR Soft ND NT (+) chronic edema KIERSTEN DAVIES September 12, 2016 22:35
[2016-09-13] MEDS: Morphine Sulfate 2mg/ml Inj IVP PRN (02:49)
[2016-09-13 04:00] VITALS: BP 158/77
[2016-09-13] MEDS: Nateglinide 60mg tab ORAL SCH ×3 (06:12→16:16)
[2016-09-13] MEDS: NovoLOG Insulin Flexpen SUBQ SCH ×4 (06:18→21:00)
[2016-09-13 08:00] VITALS: BP 169/75
[2016-09-13] MEDS: Metoprolol 25mg tab ORAL SCH ×2 (08:02→21:23)
[2016-09-13] MEDS: Theophylline ER 100mg ORAL SCH ×2 (08:02→21:23)
[2016-09-13] MEDS: Sertraline 50mg tab ORAL SCH (08:02)
[2016-09-13] MEDS: Meropenem 1 GM in NS 110 ML IVPB SCH ×2 (08:03→21:23)
[2016-09-13] MEDS: Losartan 25mg tab ORAL SCH (08:03)
[2016-09-13] MEDS: Heparin 5000 units/ml inj SUBQ SCH ×2 (08:04→21:26)
[2016-09-13] MEDS: Dyna-Hex 2% Top Sol 8oz TOPIC SCH (11:21)
[2016-09-13 12:28] VITALS: BP 151/78
[2016-09-13 16:09] VITALS: BP 136/74
--- NOTE | 2016-09-13 17:50 | Internal Med Progress Note ---
Subjective Date of Service: September 13, 2016 Physician Name JerriKatharina Attending Physician Rl Tee MD Current Medications Medications (Trade) Dose Ordered Sig/Pavel Route PRN Reason Start Time Stop Time Status Last Admin Dose Admin Acetaminophen (Tylenol) 650 mg Q4H PRN ORAL T>100.5 09/12/16 03:45 10/12/16 03:44 Albuterol/ Ipratropium (DuoNeb 0.5-3(2.5)mg/3ml) 3 ml Q4H PRN HHN dyspnea 09/12/16 03:45 09/17/16 03:44 Chlorhexidine Gluconate (Dianne-Hex 2%) 1 applic Q24H TOPIC 09/12/16 11:00 10/12/16 10:59 09/13/16 11:21 Clonidine HCl (Catapres) 0.1 mg Q4H PRN ORAL SBP>160 09/12/16 03:45 10/12/16 03:44 Clopidogrel Bisulfate (Plavix) 75 mg DAILY ORAL 09/12/16 09:00 10/12/16 08:59 09/13/16 08:01 Dextrose (Dextrose 50%) STAT PRN IV Hypoglycemia 09/12/16 15:45 10/12/16 15:44 Gabapentin (Neurontin) 300 mg DAILY ORAL 09/12/16 09:00 10/12/16 08:59 09/13/16 08:01 Heparin Sodium (Porcine) (Heparin 5000 units/ml) 5,000 units EVERY 12 HOURS SUBQ 09/12/16 09:00 10/12/16 08:59 Insulin Aspart (NovoLOG) BEFORE MEALS AND HS SUBQ 09/12/16 06:30 10/12/16 06:29 09/13/16 16:19 Lorazepam (Ativan 2mg/ml 1ml) 0.5 mg Q4H PRN IV For Anxiety 09/12/16 03:45 09/19/16 03:44 Losartan Potassium (Cozaar) 12.5 mg DAILY ORAL 09/12/16 09:00 10/12/16 08:59 09/13/16 08:03 Meropenem/Sodium Chloride (Merrem/Sodium Chloride) 110 ml @ 220 mls/hr Q12HR IVPB 09/12/16 13:00 09/17/16 12:59 09/13/16 08:03 Metoprolol Tartrate (Lopressor) 25 mg EVERY 12 HOURS ORAL 09/12/16 09:00 10/12/16 08:59 09/13/16 08:02 Morphine Sulfate (Morphine Sulfate) 2 mg Q4H PRN IVP Severe Pain (Pain Scale 7-10) 09/12/16 03:45 09/19/16 03:44 09/13/16 02:49 Nateglinide (Starlix) 90 mg BEFORE MEALS ORAL 09/12/16 06:30 10/12/16 06:29 09/13/16 16:16 Nitroglycerin (Ntg) 0.4 mg Q5M X 3 DOSES PRN SL Prn Chest Pain 09/12/16 00:15 10/12/16 00:14 Ondansetron HCl (Zofran) 4 mg Q6H PRN IVP Nausea & Vomiting 09/12/16 03:45 10/12/16 03:44 Promethazine HCl/ Codeine (Phenergan with Codeine) 5 ml Q6H PRN ORAL For Cough 09/12/16 03:45 10/12/16 03:44 Sertraline HCl (Zoloft) 50 mg DAILY ORAL 09/12/16 09:00 10/12/16 08:59 09/13/16 08:02 Simethicone (Mylicon) 160 mg Q8H PRN ORAL Abdominal cramps 09/12/16 07:45 10/12/16 07:44 Temazepam (Restoril) 15 mg HSPRN PRN ORAL Insomnia 09/12/16 21:00 09/19/16 20:59 09/12/16 21:16 Theophylline 100 mg 100 mg EVERY 12 HOURS ORAL 09/12/16 09:00 10/12/16 08:59 09/13/16 08:02 Allergies: Coded Allergies: PENICILLINS (Unverified Allergy, Unknown, 03/22/15) ROS Limited/Unobtainable: No Constitutional: Reports: no symptoms HEENT: Reports: no symptoms Cardiovascular: Reports: no symptoms Respiratory: Reports: cough, shortness of breath, wheezing Gastrointestinal/Abdominal: Reports: no symptoms Genitourinary: Reports: no symptoms Neurologic/Psychiatric: Reports: no symptoms Subjective 76 YO F admitted with wheezing and cough. Ciover for [facility] Med-Dr Tee. Objective Last Vital Signs Date Time Temp Pulse Resp B/P Pulse Ox O2 Delivery O2 Flow Rate FiO2 09/13/16 16:09 96.6 61 19 136/74 99 Room Air 09/12/16 19:30 2.0 09/12/16 19:30 28 Intake and Output 09/12/16 09/13/16 19:00 07:00 Intake Total 1300 ml 110 ml Output Total 600 ml 950 ml Balance 700 ml -840 ml Intake Oral 1080 ml IV Total 220 ml 110 ml Output Urine Total 600 ml 950 ml # Bowel Movements 1 Objective General: alert, cooperative, no distress, appears stated age Head: normocephalic, without obvious abnormality, atraumatic Eyes: conjunctivae/corneas clear. PERRL, EOM's intact Throat: lips, mucosa, and tongue normal. MMM Neck: supple, symmetrical, trachea midline, and no JVD Lungs: Few wheezes bilat, otherwise clear to auscultation bilaterally Heart: regular rate and rhythm, S1, S2 normal, no murmur, click, rub or gallop Abdomen: soft, non-tender, non-distended, bowel sounds normal; no masses or organomegaly Extremities: extremities normal, atraumatic, no cyanosis or edema Pulses: 2+ and symmetric Skin: skin color, texture, turgor normal; no rashes or lesions Neurologic: grossly normal, no focal deficits Assessment/Plan Problem List: (1) Wheezing (2) Cough (3) COPD exacerbation Assessment & Plan: See pulmonary note. Continue meropenem (4) Renal failure (5) DM (diabetes mellitus) Assessment & Plan: Cont starlix and novolog (6) SOB (shortness of breath) (7) Cirrhosis (8) Hypertension (9) Sleep apnea, obstructive (10) Obesity (11) UTI (urinary tract infection) Assessment & Plan: Multi drug resistant E. Coli. Cont meropenem Status: not improved KATHARINA POND September 13, 2016 17:50
--- NOTE | 2016-09-13 18:08 | Pulmonology Progress Note ---
Assessment/Plan Problems: (1) COPD exacerbation (2) Sepsis (3) ARF (acute renal failure) (4) DM (diabetes mellitus) (5) Sleep apnea (6) Hypertension (7) Cardiomegaly Assessment/Plan MDR E coli, on Aztreona, check cultures improving cxr bnp not much change sliding scale pt/ot Subjective ROS Limited/Unobtainable: No Interval Events: comfortable Constitutional: Reports: no symptoms Allergies: Coded Allergies: PENICILLINS (Unverified Allergy, Unknown, 03/22/15) Objective Last 24 Hour Vital Signs Date Time Temp Pulse Resp B/P Pulse Ox O2 Delivery O2 Flow Rate FiO2 09/13/16 16:09 96.6 61 19 136/74 99 Room Air 09/13/16 12:28 96.2 70 18 151/78 99 Room Air 09/13/16 08:03 161/79 09/13/16 08:02 75 161/79 09/13/16 08:00 97.5 75 19 169/75 99 Nasal Cannula 09/13/16 04:00 97.2 72 20 158/77 98 Room Air 09/13/16 03:19 97.3 09/12/16 23:57 97.3 67 20 148/69 Room Air 09/12/16 21:17 71 156/72 09/12/16 20:00 97.7 71 20 156/72 96 Room Air 09/12/16 19:30 Room Air 09/12/16 19:30 98 Room Air 2.0 09/12/16 19:30 84 18 Nasal Cannula 2.0 28 Intake and Output 09/12/16 09/13/16 19:00 07:00 Intake Total 1300 ml 110 ml Output Total 600 ml 950 ml Balance 700 ml -840 ml Intake Oral 1080 ml IV Total 220 ml 110 ml Output Urine Total 600 ml 950 ml # Bowel Movements 1 General Appearance: WD/WN HEENT: normocephalic, atraumatic Respiratory/Chest: chest wall non-tender Cardiovascular: normal peripheral pulses Abdomen: normal bowel sounds, soft, non tender Extremities: no cyanosis, no clubbing Skin: no rash, no lesions Lymphatic: no neck adenopathy Musculoskeletal: normal muscle bulk Current Medications Medications (Trade) Dose Ordered Sig/Pavel Route PRN Reason Start Time Stop Time Status Last Admin Dose Admin Acetaminophen (Tylenol) 650 mg Q4H PRN ORAL T>100.5 09/12/16 03:45 10/12/16 03:44 Albuterol/ Ipratropium (DuoNeb 0.5-3(2.5)mg/3ml) 3 ml Q4H PRN HHN dyspnea 09/12/16 03:45 09/17/16 03:44 Chlorhexidine Gluconate (Dianne-Hex 2%) 1 applic Q24H TOPIC 09/12/16 11:00 10/12/16 10:59 09/13/16 11:21 Clonidine HCl (Catapres) 0.1 mg Q4H PRN ORAL SBP>160 09/12/16 03:45 10/12/16 03:44 Clopidogrel Bisulfate (Plavix) 75 mg DAILY ORAL 09/12/16 09:00 10/12/16 08:59 09/13/16 08:01 Dextrose (Dextrose 50%) STAT PRN IV Hypoglycemia 09/12/16 15:45 10/12/16 15:44 Gabapentin (Neurontin) 300 mg DAILY ORAL 09/12/16 09:00 10/12/16 08:59 09/13/16 08:01 Heparin Sodium (Porcine) (Heparin 5000 units/ml) 5,000 units EVERY 12 HOURS SUBQ 09/12/16 09:00 10/12/16 08:59 Insulin Aspart (NovoLOG) BEFORE MEALS AND HS SUBQ 09/12/16 06:30 10/12/16 06:29 09/13/16 16:19 Lorazepam (Ativan 2mg/ml 1ml) 0.5 mg Q4H PRN IV For Anxiety 09/12/16 03:45 09/19/16 03:44 Losartan Potassium (Cozaar) 12.5 mg DAILY ORAL 09/12/16 09:00 10/12/16 08:59 09/13/16 08:03 Meropenem/Sodium Chloride (Merrem/Sodium Chloride) 110 ml @ 220 mls/hr Q12HR IVPB 09/12/16 13:00 09/17/16 12:59 09/13/16 08:03 Metoprolol Tartrate (Lopressor) 25 mg EVERY 12 HOURS ORAL 09/12/16 09:00 10/12/16 08:59 09/13/16 08:02 Morphine Sulfate (Morphine Sulfate) 2 mg Q4H PRN IVP Severe Pain (Pain Scale 7-10) 09/12/16 03:45 09/19/16 03:44 09/13/16 02:49 Nateglinide (Starlix) 90 mg BEFORE MEALS ORAL 09/12/16 06:30 10/12/16 06:29 09/13/16 16:16 Nitroglycerin (Ntg) 0.4 mg Q5M X 3 DOSES PRN SL Prn Chest Pain 09/12/16 00:15 10/12/16 00:14 Ondansetron HCl (Zofran) 4 mg Q6H PRN IVP Nausea & Vomiting 09/12/16 03:45 10/12/16 03:44 Promethazine HCl/ Codeine (Phenergan with Codeine) 5 ml Q6H PRN ORAL For Cough 09/12/16 03:45 10/12/16 03:44 Sertraline HCl (Zoloft) 50 mg DAILY ORAL 09/12/16 09:00 10/12/16 08:59 09/13/16 08:02 Simethicone (Mylicon) 160 mg Q8H PRN ORAL Abdominal cramps 09/12/16 07:45 10/12/16 07:44 Temazepam (Restoril) 15 mg HSPRN PRN ORAL Insomnia 09/12/16 21:00 09/19/16 20:59 09/12/16 21:16 Theophylline 100 mg 100 mg EVERY 12 HOURS ORAL 09/12/16 09:00 10/12/16 08:59 09/13/16 08:02 DIONI TRIANA September 13, 2016 18:08
--- NOTE | 2016-09-13 18:15 | Infectious Diseases Prog Note ---
Assessment/Plan Assessment/Plan ASSESSMENT: 76 y/o female with: ]// propbable HCAP // / Recurrent UTI E.coli + , - CT A/P 09/2015: 9 x 4 mm left proximal ureteral stone with mild left hydronephrosis. // Hx of Rt leg cellulitis // hx of PICC infection and CoNS recurrent bacteremia : // Multiple superficial decubitis POA, not grossly infected // CKD3 // Hypercalcemia // DM2 // Obesity // MRSA, VRE colonized // PCN allergy - tolerates carbapenems // Full Code PLAN: - Start Merrem d# 2 / ( 08/23 SP Vanco d# 4 ) ( 06/26 SP Cefepime d# 3 ) ( 06/11 SP IV vancomycin, meropenem d# 3 ) - cultures ( Bl and Sp ) Cx - monitor CBC, temperatures - monitor BMP Subjective Constitutional: Denies: anorexia, chills, drenching sweats, fatigue, fever, no symptoms, other Allergies: Coded Allergies: PENICILLINS (Unverified Allergy, Unknown, 03/22/15) Objective Vital Signs Last 24 Hour Vital Signs Date Time Temp Pulse Resp B/P Pulse Ox O2 Delivery O2 Flow Rate FiO2 09/13/16 16:09 96.6 61 19 136/74 99 Room Air 09/13/16 12:28 96.2 70 18 151/78 99 Room Air 09/13/16 08:03 161/79 09/13/16 08:02 75 161/79 09/13/16 08:00 97.5 75 19 169/75 99 Nasal Cannula 09/13/16 04:00 97.2 72 20 158/77 98 Room Air 09/13/16 03:19 97.3 09/12/16 23:57 97.3 67 20 148/69 Room Air 09/12/16 21:17 71 156/72 09/12/16 20:00 97.7 71 20 156/72 96 Room Air 09/12/16 19:30 Room Air 09/12/16 19:30 98 Room Air 2.0 09/12/16 19:30 84 18 Nasal Cannula 2.0 28 Height (Feet): 5 Height (Inches): 5.00 Weight (Pounds): 300 HEENT: atraumatic Respiratory/Chest: normal breath sounds Cardiovascular: regularly irregular Abdomen: no organomegaly Current Medications Medications (Trade) Dose Ordered Sig/Pavel Route PRN Reason Start Time Stop Time Status Last Admin Dose Admin Acetaminophen (Tylenol) 650 mg Q4H PRN ORAL T>100.5 09/12/16 03:45 10/12/16 03:44 Albuterol/ Ipratropium (DuoNeb 0.5-3(2.5)mg/3ml) 3 ml Q4H PRN HHN dyspnea 09/12/16 03:45 09/17/16 03:44 Chlorhexidine Gluconate (Dianne-Hex 2%) 1 applic Q24H TOPIC 09/12/16 11:00 10/12/16 10:59 09/13/16 11:21 Clonidine HCl (Catapres) 0.1 mg Q4H PRN ORAL SBP>160 09/12/16 03:45 10/12/16 03:44 Clopidogrel Bisulfate (Plavix) 75 mg DAILY ORAL 09/12/16 09:00 10/12/16 08:59 09/13/16 08:01 Dextrose (Dextrose 50%) STAT PRN IV Hypoglycemia 09/12/16 15:45 10/12/16 15:44 Gabapentin (Neurontin) 300 mg DAILY ORAL 09/12/16 09:00 10/12/16 08:59 09/13/16 08:01 Heparin Sodium (Porcine) (Heparin 5000 units/ml) 5,000 units EVERY 12 HOURS SUBQ 09/12/16 09:00 10/12/16 08:59 Insulin Aspart (NovoLOG) BEFORE MEALS AND HS SUBQ 09/12/16 06:30 10/12/16 06:29 09/13/16 16:19 Lorazepam (Ativan 2mg/ml 1ml) 0.5 mg Q4H PRN IV For Anxiety 09/12/16 03:45 09/19/16 03:44 Losartan Potassium (Cozaar) 12.5 mg DAILY ORAL 09/12/16 09:00 10/12/16 08:59 09/13/16 08:03 Meropenem/Sodium Chloride (Merrem/Sodium Chloride) 110 ml @ 220 mls/hr Q12HR IVPB 09/12/16 13:00 09/17/16 12:59 09/13/16 08:03 Metoprolol Tartrate (Lopressor) 25 mg EVERY 12 HOURS ORAL 09/12/16 09:00 10/12/16 08:59 09/13/16 08:02 Morphine Sulfate (Morphine Sulfate) 2 mg Q4H PRN IVP Severe Pain (Pain Scale 7-10) 09/12/16 03:45 09/19/16 03:44 09/13/16 02:49 Nateglinide (Starlix) 90 mg BEFORE MEALS ORAL 09/12/16 06:30 10/12/16 06:29 09/13/16 16:16 Nitroglycerin (Ntg) 0.4 mg Q5M X 3 DOSES PRN SL Prn Chest Pain 09/12/16 00:15 10/12/16 00:14 Ondansetron HCl (Zofran) 4 mg Q6H PRN IVP Nausea & Vomiting 09/12/16 03:45 10/12/16 03:44 Promethazine HCl/ Codeine (Phenergan with Codeine) 5 ml Q6H PRN ORAL For Cough 09/12/16 03:45 10/12/16 03:44 Sertraline HCl (Zoloft) 50 mg DAILY ORAL 09/12/16 09:00 10/12/16 08:59 09/13/16 08:02 Simethicone (Mylicon) 160 mg Q8H PRN ORAL Abdominal cramps 09/12/16 07:45 10/12/16 07:44 Temazepam (Restoril) 15 mg HSPRN PRN ORAL Insomnia 09/12/16 21:00 09/19/16 20:59 09/12/16 21:16 Theophylline 100 mg 100 mg EVERY 12 HOURS ORAL 09/12/16 09:00 10/12/16 08:59 09/13/16 08:02 LYLA ROJAS M.D. September 13, 2016 18:15
[2016-09-13 20:00] VITALS: BP 145/71
--- NOTE | 2016-09-13 22:23 | General Progress Note ---
Assessment/Plan Assessment/Plan Assessment - Resp infection / reactive airways - Obesity - DURANT with cirrhosis - h/o coagulopathy - DM - HTN - YELENA - CHF - Anemia Recommendations - Check AFP - Recent abd u/s --> cirrhosis with no mass - low salt diet - abx/RT - watch glucose on steroids Subjective Allergies: Coded Allergies: PENICILLINS (Unverified Allergy, Unknown, 03/22/15) Subjective Feels OK no abd pain (+) soft BM tolerating PO Objective Last 24 Hour Vital Signs Date Time Temp Pulse Resp B/P Pulse Ox O2 Delivery O2 Flow Rate FiO2 09/13/16 21:23 64 145/71 09/13/16 20:00 98.6 64 20 145/71 100 Room Air 09/13/16 19:13 96 Room Air 09/13/16 19:13 73 18 Room Air 09/13/16 19:13 Room Air 09/13/16 16:09 96.6 61 19 136/74 99 Room Air 09/13/16 12:28 96.2 70 18 151/78 99 Room Air 09/13/16 08:03 161/79 09/13/16 08:02 75 161/79 09/13/16 08:00 97.5 75 19 169/75 99 Nasal Cannula 09/13/16 04:00 97.2 72 20 158/77 98 Room Air 09/13/16 03:19 97.3 09/12/16 23:57 97.3 67 20 148/69 Room Air Intake and Output 09/12/16 09/13/16 19:00 07:00 Intake Total 1300 ml 110 ml Output Total 600 ml 950 ml Balance 700 ml -840 ml Intake Oral 1080 ml IV Total 220 ml 110 ml Output Urine Total 600 ml 950 ml # Bowel Movements 1 Height (Feet): 5 Height (Inches): 5.00 Weight (Pounds): 300 Objective Obese WW Alert NCAT Supple CTA RRR Soft ND NT (+) chronic edema KIERSTEN DAVIES September 13, 2016 22:23
[2016-09-14] VITALS: BP 160/82
[2016-09-14 04:00] VITALS: BP 151/75
[2016-09-14] MEDS: Nateglinide 60mg tab ORAL SCH ×3 (06:14→16:35)
[2016-09-14] MEDS: NovoLOG Insulin Flexpen SUBQ SCH ×4 (06:16→21:05)
[2016-09-14 07:47] LABS: INR 1.3 (0.9-1.1); MEAN CORPUSCULAR HEMOGLOBIN 31.4 PG (27.0-31.0); MEAN CORPUSCULAR HGB CONC 32.9 G/DL (32.0-36.0); MEAN CORPUSCULAR VOLUME 95 FL (80-99); MEAN PLATELET VOLUME 6.5 FL (6.5-10.1); PLATELET COUNT 93 K/UL (150-450); PROTHROMBIN TIME 13.7 SEC (9.30-11.50); RED BLOOD COUNT 3.05 M/UL (4.20-5.40); RED CELL DISTRIBUTION WIDTH 13.8 % (11.6-14.8); WHITE BLOOD COUNT 5.3 K/UL (4.8-10.8)
[2016-09-14 08:02] LABS: ANION GAP 13 (5-15); CALCIUM 10.3 mg/dL (8.6-10.2); CARBON DIOXIDE 23 mEQ/L (20-30); CHLORIDE 108 mEQ/L (98-107); CREATININE 1.2 mg/dL (0.5-0.9); HEMOLYSIS 3; POTASSIUM 4.6 mEQ/L (3.4-4.9); SODIUM 144 mEQ/L (135-145)
[2016-09-14 08:06] LABS: LACTATE DEHYDROGENASE 266 U/L (135-230)
[2016-09-14 08:07] LABS: HEMOLYSIS 0; IRON 44 ug/dL (37-145); TOTAL IRON BINDING CAPACITY 241 ug/dL (250-400)
[2016-09-14] MEDS: Theophylline ER 100mg ORAL SCH ×2 (08:09→20:55)
[2016-09-14] MEDS: Losartan 25mg tab ORAL SCH (08:10)
[2016-09-14] MEDS: Metoprolol 25mg tab ORAL SCH ×2 (08:10→20:55)
[2016-09-14] MEDS: Sertraline 50mg tab ORAL SCH (08:11)
[2016-09-14] MEDS: Heparin 5000 units/ml inj SUBQ SCH ×2 (08:11→20:15)
[2016-09-14] MEDS: Meropenem 1 GM in NS 110 ML IVPB SCH ×2 (08:12→20:56)
[2016-09-14 08:27] LABS: BAND NEUTROPHILS % (MANUAL) 1 % (0-8); BASOPHILS % (MANUAL) 0 % (0-2); EOSINOPHILS % (MANUAL) 1 % (0-3); HYPOCHROMASIA 1+; LYMPHOCYTES % (MANUAL) 20 % (20-45); NEUTROPHILS % (MANUAL) 74 % (45-75); PLATELET ESTIMATE DECREASED; PLATELET MORPHOLOGY NORMAL; TOTAL CELLS COUNTED 100
[2016-09-14 08:51] VITALS: BP 169/58
[2016-09-14 08:57] LABS: ERYTHROCYTE SEDIMENTATION RATE 86 MM/HR (0-30); PATH BLOOD SMEAR/OMC SENT TO PATHOLOGIST
[2016-09-14 09:45] LABS: RETICULOCYTE COUNT 1.9 % (0.0-2.0)
[2016-09-14] MEDS: Dyna-Hex 2% Top Sol 8oz TOPIC SCH (11:18)
--- NOTE | 2016-09-14 11:51 | Infectious Diseases Prog Note ---
Assessment/Plan Assessment/Plan A; UTI DM type II Obesity Acute renal failure DURANT/Cirrhosis P; Continue Meropenem Subjective ROS Limited/Unobtainable: Yes Allergies: Coded Allergies: PENICILLINS (Unverified Allergy, Unknown, 03/22/15) Objective Vital Signs Last 24 Hour Vital Signs Date Time Temp Pulse Resp B/P Pulse Ox O2 Delivery O2 Flow Rate FiO2 09/14/16 08:51 97.3 18 169/58 98 Room Air 09/14/16 08:10 63 169/58 09/14/16 08:10 169/58 09/14/16 07:39 Room Air 09/14/16 07:39 98 Room Air 09/14/16 07:39 66 18 Room Air 09/14/16 04:00 97.5 67 20 151/75 97 Room Air 09/14/16 00:29 160/82 09/14/16 00:00 98.1 85 22 160/82 100 Room Air 09/13/16 21:23 64 145/71 09/13/16 20:00 98.6 64 20 145/71 100 Room Air 09/13/16 19:13 96 Room Air 09/13/16 19:13 73 18 Room Air 09/13/16 19:13 Room Air 09/13/16 16:09 96.6 61 19 136/74 99 Room Air 09/13/16 12:28 96.2 70 18 151/78 99 Room Air Height (Feet): 5 Height (Inches): 5.00 Weight (Pounds): 300 General Appearance: no acute distress HEENT: mucous membranes moist Respiratory/Chest: lungs clear Cardiovascular: normal rate Abdomen: soft, non tender Extremities: no edema Neurologic/Psychiatric: other - sleeping Laboratory Tests Test 09/14/16 05:00 White Blood Count 5.3 K/UL (4.8-10.8) Red Blood Count 3.05 M/UL (4.20-5.40) L Hemoglobin 9.6 G/DL (12.0-16.0) L Hematocrit 29.1 % (37.0-47.0) L Mean Corpuscular Volume 95 FL (80-99) Mean Corpuscular Hemoglobin 31.4 PG (27.0-31.0) H Mean Corpuscular Hemoglobin Concent 32.9 G/DL (32.0-36.0) Red Cell Distribution Width 13.8 % (11.6-14.8) Platelet Count 93 K/UL (150-450) L Mean Platelet Volume 6.5 FL (6.5-10.1) Neutrophils (%) (Auto) % (45.0-75.0) Lymphocytes (%) (Auto) % (20.0-45.0) Monocytes (%) (Auto) % (1.0-10.0) Eosinophils (%) (Auto) % (0.0-3.0) Basophils (%) (Auto) % (0.0-2.0) Differential Total Cells Counted 100 Neutrophils % (Manual) 74 % (45-75) Lymphocytes % (Manual) 20 % (20-45) Monocytes % (Manual) 4 % (1-10) Eosinophils % (Manual) 1 % (0-3) Basophils % (Manual) 0 % (0-2) Band Neutrophils 1 % (0-8) Platelet Estimate Decreased L Platelet Morphology Normal Hypochromasia 1+ Erythrocyte Sedimentation Rate 86 MM/HR (0-30) H Reticulocyte Count 1.9 % (0.0-2.0) Prothrombin Time 13.7 SEC (9.30-11.50) H Prothromb Time International Ratio 1.3 (0.9-1.1) H Activated Partial Thromboplast Time 31 SEC (23-33) Sodium Level 144 mEQ/L (135-145) Potassium Level 4.6 mEQ/L (3.4-4.9) Chloride Level 108 mEQ/L (98-107) H Carbon Dioxide Level 23 mEQ/L (20-30) Anion Gap 13 (5-15) Blood Urea Nitrogen 47 mg/dL (7-23) H Creatinine 1.2 mg/dL (0.5-0.9) H Estimat Glomerular Filtration Rate mL/min (>60) Glucose Level 234 mg/dL (74-106) H Calcium Level 10.3 mg/dL (8.6-10.2) H Iron Level 44 ug/dL (37-145) Total Iron Binding Capacity 241 ug/dL (250-400) L Percent Iron Saturation 18 % (15-50) Unsaturated Iron Binding 197 ug/dL (112-346) Lactate Dehydrogenase 266 U/L (135-230) H Carcinoembryonic Antigen 12.9 ng/mL H Vitamin B12 Level 1419 pg/mL (211-946) H Folate Pending Current Medications Medications (Trade) Dose Ordered Sig/Pavel Route PRN Reason Start Time Stop Time Status Last Admin Dose Admin Acetaminophen (Tylenol) 650 mg Q4H PRN ORAL T>100.5 09/12/16 03:45 10/12/16 03:44 Albuterol/ Ipratropium (DuoNeb 0.5-3(2.5)mg/3ml) 3 ml Q4H PRN HHN dyspnea 09/12/16 03:45 09/17/16 03:44 Chlorhexidine Gluconate (Dianne-Hex 2%) 1 applic Q24H TOPIC 09/12/16 11:00 10/12/16 10:59 09/14/16 11:18 Clonidine HCl (Catapres) 0.1 mg Q4H PRN ORAL SBP>160 09/12/16 03:45 10/12/16 03:44 09/14/16 00:29 Clopidogrel Bisulfate (Plavix) 75 mg DAILY ORAL 09/12/16 09:00 10/12/16 08:59 09/14/16 08:10 Dextrose (Dextrose 50%) STAT PRN IV Hypoglycemia 09/12/16 15:45 10/12/16 15:44 Gabapentin (Neurontin) 300 mg DAILY ORAL 09/12/16 09:00 10/12/16 08:59 09/14/16 08:10 Heparin Sodium (Porcine) (Heparin 5000 units/ml) 5,000 units EVERY 12 HOURS SUBQ 09/12/16 09:00 10/12/16 08:59 09/13/16 21:26 Insulin Aspart (NovoLOG) BEFORE MEALS AND HS SUBQ 09/12/16 06:30 10/12/16 06:29 09/14/16 11:17 Lorazepam (Ativan 2mg/ml 1ml) 0.5 mg Q4H PRN IV For Anxiety 09/12/16 03:45 09/19/16 03:44 Losartan Potassium (Cozaar) 12.5 mg DAILY ORAL 09/12/16 09:00 10/12/16 08:59 09/14/16 08:10 Meropenem/Sodium Chloride (Merrem/Sodium Chloride) 110 ml @ 220 mls/hr Q12HR IVPB 09/12/16 13:00 09/17/16 12:59 09/14/16 08:12 Metoprolol Tartrate (Lopressor) 25 mg EVERY 12 HOURS ORAL 09/12/16 09:00 10/12/16 08:59 09/14/16 08:10 Morphine Sulfate (Morphine Sulfate) 2 mg Q4H PRN IVP Severe Pain (Pain Scale 7-10) 09/12/16 03:45 09/19/16 03:44 09/13/16 02:49 Nateglinide (Starlix) 90 mg BEFORE MEALS ORAL 09/12/16 06:30 10/12/16 06:29 09/14/16 11:14 Nitroglycerin (Ntg) 0.4 mg Q5M X 3 DOSES PRN SL Prn Chest Pain 09/12/16 00:15 10/12/16 00:14 Ondansetron HCl (Zofran) 4 mg Q6H PRN IVP Nausea & Vomiting 09/12/16 03:45 10/12/16 03:44 Promethazine HCl/ Codeine (Phenergan with Codeine) 5 ml Q6H PRN ORAL For Cough 09/12/16 03:45 10/12/16 03:44 Sertraline HCl (Zoloft) 50 mg DAILY ORAL 09/12/16 09:00 10/12/16 08:59 09/14/16 08:11 Simethicone (Mylicon) 160 mg Q8H PRN ORAL Abdominal cramps 09/12/16 07:45 10/12/16 07:44 Temazepam (Restoril) 15 mg HSPRN PRN ORAL Insomnia 09/12/16 21:00 09/19/16 20:59 09/12/16 21:16 Theophylline 100 mg 100 mg EVERY 12 HOURS ORAL 09/12/16 09:00 10/12/16 08:59 09/14/16 08:09 SUMMER BYRNES September 14, 2016 11:51
[2016-09-14 12:06] VITALS: BP 148/81
--- NOTE | 2016-09-14 14:42 | General Progress Note ---
Assessment/Plan Assessment/Plan Assessment - Resp infection / reactive airways - Obesity - DURANT with cirrhosis - h/o coagulopathy - DM - HTN - YELENA - CHF - Anemia - Elevated CEA - ? etiology (CXR neg) Recommendations - F/u AFP - pending - Recent abd u/s --> cirrhosis with no mass - check CT abd and pelvis, given elevated CEA - low salt diet - abx/RT - watch glucose on steroids Subjective Allergies: Coded Allergies: PENICILLINS (Unverified Allergy, Unknown, 03/22/15) Subjective Feels OK no abd complaints tolerating PO Objective Last 24 Hour Vital Signs Date Time Temp Pulse Resp B/P Pulse Ox O2 Delivery O2 Flow Rate FiO2 09/14/16 12:06 97.7 64 18 148/81 100 Room Air 09/14/16 08:51 97.3 18 169/58 98 Room Air 09/14/16 08:10 63 169/58 09/14/16 08:10 169/58 09/14/16 07:39 Room Air 09/14/16 07:39 98 Room Air 09/14/16 07:39 66 18 Room Air 09/14/16 04:00 97.5 67 20 151/75 97 Room Air 09/14/16 00:29 160/82 09/14/16 00:00 98.1 85 22 160/82 100 Room Air 09/13/16 21:23 64 145/71 09/13/16 20:00 98.6 64 20 145/71 100 Room Air 09/13/16 19:13 96 Room Air 09/13/16 19:13 73 18 Room Air 09/13/16 19:13 Room Air 09/13/16 16:09 96.6 61 19 136/74 99 Room Air Intake and Output 09/13/16 09/14/16 19:00 07:00 Intake Total 220 ml Output Total 700 ml 750 ml Balance -480 ml -750 ml IV Total 220 ml Output Urine Total 700 ml 750 ml # Bowel Movements 1 Laboratory Tests 09/14/16 05:00: White Blood Count 5.3, Red Blood Count 3.05L, Hemoglobin 9.6L, Hematocrit 29.1L , Mean Corpuscular Volume 95, Mean Corpuscular Hemoglobin 31.4H, Mean Corpuscular Hemoglobin Concent 32.9, Red Cell Distribution Width 13.8, Platelet Count 93L, Mean Platelet Volume 6.5, Neutrophils (%) (Auto) , Lymphocytes (%) ( Auto) , Monocytes (%) (Auto) , Eosinophils (%) (Auto) , Basophils (%) (Auto) , Differential Total Cells Counted 100, Neutrophils % (Manual) 74, Lymphocytes % ( Manual) 20, Monocytes % (Manual) 4, Eosinophils % (Manual) 1, Basophils % ( Manual) 0, Band Neutrophils 1, Platelet Estimate DecreasedL, Platelet Morphology Normal, Hypochromasia 1+, Erythrocyte Sedimentation Rate 86H, Reticulocyte Count 1.9, Prothrombin Time 13.7H, Prothromb Time International Ratio 1.3H, Activated Partial Thromboplast Time 31, Sodium Level 144, Potassium Level 4.6, Chloride Level 108H, Carbon Dioxide Level 23, Anion Gap 13, Blood Urea Nitrogen 47H, Creatinine 1.2H, Estimat Glomerular Filtration Rate , Glucose Level 234H, Calcium Level 10.3H, Iron Level 44, Total Iron Binding Capacity 241L, Percent Iron Saturation 18, Unsaturated Iron Binding 197, Lactate Dehydrogenase 266H, Carcinoembryonic Antigen 12.9H, Vitamin B12 Level 1419H, Folate [Pending] Height (Feet): 5 Height (Inches): 5.00 Weight (Pounds): 300 Objective Obese WW Alert NCAT Supple CTA RRR Soft ND NT (+) chronic edema KIERSTEN DAVIES September 14, 2016 14:42
[2016-09-14 16:38] VITALS: BP 121/76
--- NOTE | 2016-09-14 17:15 | Internal Med Progress Note ---
Subjective Date of Service: September 14, 2016 Physician Name Katharina Guthrie Attending Physician Rl Tee MD Current Medications Medications (Trade) Dose Ordered Sig/Pavel Route PRN Reason Start Time Stop Time Status Last Admin Dose Admin Acetaminophen (Tylenol) 650 mg Q4H PRN ORAL T>100.5 09/12/16 03:45 10/12/16 03:44 Albuterol/ Ipratropium (DuoNeb 0.5-3(2.5)mg/3ml) 3 ml Q4H PRN HHN dyspnea 09/12/16 03:45 09/17/16 03:44 Chlorhexidine Gluconate (Dianne-Hex 2%) 1 applic Q24H TOPIC 09/12/16 11:00 10/12/16 10:59 09/14/16 11:18 Clonidine HCl (Catapres) 0.1 mg Q4H PRN ORAL SBP>160 09/12/16 03:45 10/12/16 03:44 09/14/16 00:29 Clopidogrel Bisulfate (Plavix) 75 mg DAILY ORAL 09/12/16 09:00 10/12/16 08:59 09/14/16 08:10 Dextrose (Dextrose 50%) STAT PRN IV Hypoglycemia 09/12/16 15:45 10/12/16 15:44 Gabapentin (Neurontin) 300 mg DAILY ORAL 09/12/16 09:00 10/12/16 08:59 09/14/16 08:10 Heparin Sodium (Porcine) (Heparin 5000 units/ml) 5,000 units EVERY 12 HOURS SUBQ 09/12/16 09:00 10/12/16 08:59 09/13/16 21:26 Insulin Aspart (NovoLOG) BEFORE MEALS AND HS SUBQ 09/12/16 06:30 10/12/16 06:29 09/14/16 16:37 Lorazepam (Ativan 2mg/ml 1ml) 0.5 mg Q4H PRN IV For Anxiety 09/12/16 03:45 09/19/16 03:44 Losartan Potassium (Cozaar) 12.5 mg DAILY ORAL 09/12/16 09:00 10/12/16 08:59 09/14/16 08:10 Meropenem/Sodium Chloride (Merrem/Sodium Chloride) 110 ml @ 220 mls/hr Q12HR IVPB 09/12/16 13:00 09/17/16 12:59 09/14/16 08:12 Metoprolol Tartrate (Lopressor) 25 mg EVERY 12 HOURS ORAL 09/12/16 09:00 10/12/16 08:59 09/14/16 08:10 Morphine Sulfate (Morphine Sulfate) 2 mg Q4H PRN IVP Severe Pain (Pain Scale 7-10) 09/12/16 03:45 09/19/16 03:44 09/13/16 02:49 Nateglinide (Starlix) 90 mg BEFORE MEALS ORAL 09/12/16 06:30 10/12/16 06:29 09/14/16 16:35 Nitroglycerin (Ntg) 0.4 mg Q5M X 3 DOSES PRN SL Prn Chest Pain 09/12/16 00:15 10/12/16 00:14 Ondansetron HCl (Zofran) 4 mg Q6H PRN IVP Nausea & Vomiting 09/12/16 03:45 10/12/16 03:44 Promethazine HCl/ Codeine (Phenergan with Codeine) 5 ml Q6H PRN ORAL For Cough 09/12/16 03:45 10/12/16 03:44 Sertraline HCl (Zoloft) 50 mg DAILY ORAL 09/12/16 09:00 10/12/16 08:59 09/14/16 08:11 Simethicone (Mylicon) 160 mg Q8H PRN ORAL Abdominal cramps 09/12/16 07:45 10/12/16 07:44 Temazepam (Restoril) 15 mg HSPRN PRN ORAL Insomnia 09/12/16 21:00 09/19/16 20:59 09/12/16 21:16 Theophylline 100 mg 100 mg EVERY 12 HOURS ORAL 09/12/16 09:00 10/12/16 08:59 09/14/16 08:09 Allergies: Coded Allergies: PENICILLINS (Unverified Allergy, Unknown, 03/22/15) ROS Limited/Unobtainable: No Constitutional: Reports: no symptoms HEENT: Reports: no symptoms Cardiovascular: Reports: no symptoms Respiratory: Reports: no symptoms Gastrointestinal/Abdominal: Reports: no symptoms Genitourinary: Reports: no symptoms Neurologic/Psychiatric: Reports: no symptoms Subjective 76 YO F admitted with wheezing and cough. Ciover for int Med-Dr Tee. Objective Last Vital Signs Date Time Temp Pulse Resp B/P Pulse Ox O2 Delivery O2 Flow Rate FiO2 09/14/16 16:38 97.6 62 19 121/76 99 Room Air 09/12/16 19:30 2.0 09/12/16 19:30 28 Laboratory Tests Test 09/14/16 05:00 White Blood Count 5.3 K/UL (4.8-10.8) Red Blood Count 3.05 M/UL (4.20-5.40) L Hemoglobin 9.6 G/DL (12.0-16.0) L Hematocrit 29.1 % (37.0-47.0) L Mean Corpuscular Volume 95 FL (80-99) Mean Corpuscular Hemoglobin 31.4 PG (27.0-31.0) H Mean Corpuscular Hemoglobin Concent 32.9 G/DL (32.0-36.0) Red Cell Distribution Width 13.8 % (11.6-14.8) Platelet Count 93 K/UL (150-450) L Mean Platelet Volume 6.5 FL (6.5-10.1) Neutrophils (%) (Auto) % (45.0-75.0) Lymphocytes (%) (Auto) % (20.0-45.0) Monocytes (%) (Auto) % (1.0-10.0) Eosinophils (%) (Auto) % (0.0-3.0) Basophils (%) (Auto) % (0.0-2.0) Differential Total Cells Counted 100 Neutrophils % (Manual) 74 % (45-75) Lymphocytes % (Manual) 20 % (20-45) Monocytes % (Manual) 4 % (1-10) Eosinophils % (Manual) 1 % (0-3) Basophils % (Manual) 0 % (0-2) Band Neutrophils 1 % (0-8) Platelet Estimate Decreased L Platelet Morphology Normal Hypochromasia 1+ Erythrocyte Sedimentation Rate 86 MM/HR (0-30) H Reticulocyte Count 1.9 % (0.0-2.0) Prothrombin Time 13.7 SEC (9.30-11.50) H Prothromb Time International Ratio 1.3 (0.9-1.1) H Activated Partial Thromboplast Time 31 SEC (23-33) Sodium Level 144 mEQ/L (135-145) Potassium Level 4.6 mEQ/L (3.4-4.9) Chloride Level 108 mEQ/L (98-107) H Carbon Dioxide Level 23 mEQ/L (20-30) Anion Gap 13 (5-15) Blood Urea Nitrogen 47 mg/dL (7-23) H Creatinine 1.2 mg/dL (0.5-0.9) H Estimat Glomerular Filtration Rate mL/min (>60) Glucose Level 234 mg/dL (74-106) H Calcium Level 10.3 mg/dL (8.6-10.2) H Iron Level 44 ug/dL (37-145) Total Iron Binding Capacity 241 ug/dL (250-400) L Percent Iron Saturation 18 % (15-50) Unsaturated Iron Binding 197 ug/dL (112-346) Lactate Dehydrogenase 266 U/L (135-230) H Carcinoembryonic Antigen 12.9 ng/mL H Vitamin B12 Level 1419 pg/mL (211-946) H Folate Pending Intake and Output 09/13/16 09/14/16 19:00 07:00 Intake Total 220 ml Output Total 700 ml 750 ml Balance -480 ml -750 ml IV Total 220 ml Output Urine Total 700 ml 750 ml # Bowel Movements 1 Objective General: alert, cooperative, no distress, appears stated age Head: normocephalic, without obvious abnormality, atraumatic Eyes: conjunctivae/corneas clear. PERRL, EOM's intact Throat: lips, mucosa, and tongue normal. MMM Neck: supple, symmetrical, trachea midline, and no JVD Lungs: Few wheezes bilat, otherwise clear to auscultation bilaterally Heart: regular rate and rhythm, S1, S2 normal, no murmur, click, rub or gallop Abdomen: soft, non-tender, non-distended, bowel sounds normal; no masses or organomegaly Extremities: extremities normal, atraumatic, no cyanosis or edema Pulses: 2+ and symmetric Skin: skin color, texture, turgor normal; no rashes or lesions Neurologic: grossly normal, no focal deficits Assessment/Plan Problem List: (1) Wheezing (2) Cough (3) COPD exacerbation Assessment & Plan: See pulmonary note. Continue meropenem (4) Renal failure (5) DM (diabetes mellitus) Assessment & Plan: Cont starlix and novolog (6) SOB (shortness of breath) (7) Cirrhosis (8) Hypertension Assessment & Plan: Cont lopressor (9) Sleep apnea, obstructive (10) Obesity (11) UTI (urinary tract infection) Assessment & Plan: Multi drug resistant E. Coli. Cont meropenem; see ID note Status: KATHARINA Rodriguez September 14, 2016 17:15
--- NOTE | 2016-09-14 18:53 | Pulmonology Progress Note ---
Assessment/Plan Problems: (1) COPD exacerbation (2) Sepsis (3) ARF (acute renal failure) (4) DM (diabetes mellitus) (5) Sleep apnea (6) Hypertension (7) Cardiomegaly Assessment/Plan MDR E coli, on Merrem check cultures improving cxr bnp not much change sliding scale pt/ot Subjective ROS Limited/Unobtainable: No Allergies: Coded Allergies: PENICILLINS (Unverified Allergy, Unknown, 03/22/15) Objective Last 24 Hour Vital Signs Date Time Temp Pulse Resp B/P Pulse Ox O2 Delivery O2 Flow Rate FiO2 09/14/16 16:38 97.6 62 19 121/76 99 Room Air 09/14/16 12:06 97.7 64 18 148/81 100 Room Air 09/14/16 08:51 97.3 18 169/58 98 Room Air 09/14/16 08:10 63 169/58 09/14/16 08:10 169/58 09/14/16 07:39 Room Air 09/14/16 07:39 98 Room Air 09/14/16 07:39 66 18 Room Air 09/14/16 04:00 97.5 67 20 151/75 97 Room Air 09/14/16 00:29 160/82 09/14/16 00:00 98.1 85 22 160/82 100 Room Air 09/13/16 21:23 64 145/71 09/13/16 20:00 98.6 64 20 145/71 100 Room Air 09/13/16 19:13 96 Room Air 09/13/16 19:13 73 18 Room Air 09/13/16 19:13 Room Air Intake and Output 09/13/16 09/14/16 19:00 07:00 Intake Total 220 ml Output Total 700 ml 750 ml Balance -480 ml -750 ml IV Total 220 ml Output Urine Total 700 ml 750 ml # Bowel Movements 1 Objective General Appearance: obese HEENT: normocephalic, atraumatic Respiratory/Chest: chest wall non-tender, lungs clear Cardiovascular: normal peripheral pulses, normal rate Abdomen: normal bowel sounds, soft, non tender Genitourinary: normal external genitalia Extremities: no cyanosis Skin: no rash Laboratory Tests 09/14/16 05:00: White Blood Count 5.3, Red Blood Count 3.05L, Hemoglobin 9.6L, Hematocrit 29.1L , Mean Corpuscular Volume 95, Mean Corpuscular Hemoglobin 31.4H, Mean Corpuscular Hemoglobin Concent 32.9, Red Cell Distribution Width 13.8, Platelet Count 93L, Mean Platelet Volume 6.5, Neutrophils (%) (Auto) , Lymphocytes (%) ( Auto) , Monocytes (%) (Auto) , Eosinophils (%) (Auto) , Basophils (%) (Auto) , Differential Total Cells Counted 100, Neutrophils % (Manual) 74, Lymphocytes % ( Manual) 20, Monocytes % (Manual) 4, Eosinophils % (Manual) 1, Basophils % ( Manual) 0, Band Neutrophils 1, Platelet Estimate DecreasedL, Platelet Morphology Normal, Hypochromasia 1+, Erythrocyte Sedimentation Rate 86H, Reticulocyte Count 1.9, Prothrombin Time 13.7H, Prothromb Time International Ratio 1.3H, Activated Partial Thromboplast Time 31, Sodium Level 144, Potassium Level 4.6, Chloride Level 108H, Carbon Dioxide Level 23, Anion Gap 13, Blood Urea Nitrogen 47H, Creatinine 1.2H, Estimat Glomerular Filtration Rate , Glucose Level 234H, Calcium Level 10.3H, Iron Level 44, Total Iron Binding Capacity 241L, Percent Iron Saturation 18, Unsaturated Iron Binding 197, Lactate Dehydrogenase 266H, Carcinoembryonic Antigen 12.9H, Vitamin B12 Level 1419H, Folate [Pending] Current Medications Medications (Trade) Dose Ordered Sig/Pavel Route PRN Reason Start Time Stop Time Status Last Admin Dose Admin Acetaminophen (Tylenol) 650 mg Q4H PRN ORAL T>100.5 09/12/16 03:45 10/12/16 03:44 Albuterol/ Ipratropium (DuoNeb 0.5-3(2.5)mg/3ml) 3 ml Q4H PRN HHN dyspnea 09/12/16 03:45 09/17/16 03:44 Chlorhexidine Gluconate (Dianne-Hex 2%) 1 applic Q24H TOPIC 09/12/16 11:00 10/12/16 10:59 09/14/16 11:18 Clonidine HCl (Catapres) 0.1 mg Q4H PRN ORAL SBP>160 09/12/16 03:45 10/12/16 03:44 09/14/16 00:29 Clopidogrel Bisulfate (Plavix) 75 mg DAILY ORAL 09/12/16 09:00 10/12/16 08:59 09/14/16 08:10 Dextrose (Dextrose 50%) STAT PRN IV Hypoglycemia 09/12/16 15:45 10/12/16 15:44 Gabapentin (Neurontin) 300 mg DAILY ORAL 09/12/16 09:00 10/12/16 08:59 09/14/16 08:10 Heparin Sodium (Porcine) (Heparin 5000 units/ml) 5,000 units EVERY 12 HOURS SUBQ 09/12/16 09:00 10/12/16 08:59 09/13/16 21:26 Insulin Aspart (NovoLOG) BEFORE MEALS AND HS SUBQ 09/12/16 06:30 10/12/16 06:29 09/14/16 16:37 Lorazepam (Ativan 2mg/ml 1ml) 0.5 mg Q4H PRN IV For Anxiety 09/12/16 03:45 09/19/16 03:44 Losartan Potassium (Cozaar) 12.5 mg DAILY ORAL 09/12/16 09:00 10/12/16 08:59 09/14/16 08:10 Meropenem/Sodium Chloride (Merrem/Sodium Chloride) 110 ml @ 220 mls/hr Q12HR IVPB 09/12/16 13:00 09/17/16 12:59 09/14/16 08:12 Metoprolol Tartrate (Lopressor) 25 mg EVERY 12 HOURS ORAL 09/12/16 09:00 10/12/16 08:59 09/14/16 08:10 Morphine Sulfate (Morphine Sulfate) 2 mg Q4H PRN IVP Severe Pain (Pain Scale 7-10) 09/12/16 03:45 09/19/16 03:44 09/13/16 02:49 Nateglinide (Starlix) 90 mg BEFORE MEALS ORAL 09/12/16 06:30 10/12/16 06:29 09/14/16 16:35 Nitroglycerin (Ntg) 0.4 mg Q5M X 3 DOSES PRN SL Prn Chest Pain 09/12/16 00:15 10/12/16 00:14 Ondansetron HCl (Zofran) 4 mg Q6H PRN IVP Nausea & Vomiting 09/12/16 03:45 10/12/16 03:44 Promethazine HCl/ Codeine (Phenergan with Codeine) 5 ml Q6H PRN ORAL For Cough 09/12/16 03:45 10/12/16 03:44 Sertraline HCl (Zoloft) 50 mg DAILY ORAL 09/12/16 09:00 10/12/16 08:59 09/14/16 08:11 Simethicone (Mylicon) 160 mg Q8H PRN ORAL Abdominal cramps 09/12/16 07:45 10/12/16 07:44 Temazepam (Restoril) 15 mg HSPRN PRN ORAL Insomnia 09/12/16 21:00 09/19/16 20:59 09/12/16 21:16 Theophylline 100 mg 100 mg EVERY 12 HOURS ORAL 09/12/16 09:00 10/12/16 08:59 09/14/16 08:09 DIONI TRIANA September 14, 2016 18:53
[2016-09-14 20:00] VITALS: BP 148/66
[2016-09-15] VITALS (7 sets, daily range): BP systolic 135–164; BP diastolic 69–87
[2016-09-15] MEDS: NovoLOG Insulin Flexpen SUBQ SCH ×4 (06:18→20:52)
[2016-09-15] MEDS: Nateglinide 60mg tab ORAL SCH ×3 (06:20→16:13)
[2016-09-15 07:10] LABS: MEAN CORPUSCULAR HEMOGLOBIN 30.5 PG (27.0-31.0); MEAN CORPUSCULAR HGB CONC 32.2 G/DL (32.0-36.0); MEAN CORPUSCULAR VOLUME 95 FL (80-99); MEAN PLATELET VOLUME 7.5 FL (6.5-10.1); PLATELET COUNT 99 K/UL (150-450); RED BLOOD COUNT 3.22 M/UL (4.20-5.40); RED CELL DISTRIBUTION WIDTH 14.1 % (11.6-14.8); WHITE BLOOD COUNT 6.3 K/UL (4.8-10.8)
[2016-09-15 07:35] LABS: ANION GAP 14 (5-15); CALCIUM 10.4 mg/dL (8.6-10.2); CARBON DIOXIDE 22 mEQ/L (20-30); CHLORIDE 105 mEQ/L (98-107); CREATININE 1.3 mg/dL (0.5-0.9); HEMOLYSIS 7; POTASSIUM 4.3 mEQ/L (3.4-4.9); SODIUM 141 mEQ/L (135-145)
[2016-09-15] MEDS: Sertraline 50mg tab ORAL SCH (08:18)
[2016-09-15] MEDS: Heparin 5000 units/ml inj SUBQ SCH ×2 (08:18→20:53)
[2016-09-15] MEDS: Metoprolol 25mg tab ORAL SCH ×2 (08:18→20:53)
[2016-09-15] MEDS: Meropenem 1 GM in NS 110 ML IVPB SCH ×2 (08:18→20:50)
[2016-09-15] MEDS: Theophylline ER 100mg ORAL SCH ×2 (08:18→20:53)
[2016-09-15] MEDS: Losartan 25mg tab ORAL SCH (08:18)
[2016-09-15 08:35] LABS: ANISOCYTOSIS 1+; BAND NEUTROPHILS % (MANUAL) 0 % (0-8); BASOPHILS % (MANUAL) 0 % (0-2); EOSINOPHILS % (MANUAL) 4 % (0-3); HYPOCHROMASIA 1+; LYMPHOCYTES % (MANUAL) 31 % (20-45); NEUTROPHILS % (MANUAL) 55 % (45-75); PLATELET ESTIMATE DECREASED; PLATELET MORPHOLOGY NORMAL; TOTAL CELLS COUNTED 100
[2016-09-15] MEDS: Dyna-Hex 2% Top Sol 8oz TOPIC SCH (11:00)
--- NOTE | 2016-09-15 11:28 | General Progress Note ---
Assessment/Plan Assessment/Plan Assessment - Resp infection / reactive airways - Obesity - DURANT with cirrhosis - h/o coagulopathy - DM - HTN - YELENA - CHF - Anemia - Elevated CEA - ? etiology (CXR neg) Recommendations - F/u AFP - pending - Recent abd u/s --> cirrhosis with no mass - check CT abd and pelvis, given elevated CEA - low salt diet - abx/RT - watch glucose on steroids Subjective Allergies: Coded Allergies: PENICILLINS (Unverified Allergy, Unknown, 03/22/15) Subjective Feels OK no abd complaints tolerating PO Objective Last 24 Hour Vital Signs Date Time Temp Pulse Resp B/P Pulse Ox O2 Delivery O2 Flow Rate FiO2 09/15/16 09:28 68 16 Room Air 09/15/16 09:28 Room Air 09/15/16 09:28 98 Room Air 09/15/16 08:18 77 143/78 09/15/16 08:18 143/78 09/15/16 08:00 97.7 76 18 164/87 96 Room Air 09/15/16 04:00 98.1 77 20 143/78 97 Room Air 09/15/16 00:00 97.0 72 18 147/76 99 Room Air 09/14/16 20:55 66 148/66 09/14/16 20:00 98.2 66 18 148/66 Room Air 09/14/16 19:55 Room Air 09/14/16 19:55 Room Air 09/14/16 16:38 97.6 62 19 121/76 99 Room Air 09/14/16 12:06 97.7 64 18 148/81 100 Room Air Intake and Output 09/14/16 09/15/16 19:00 07:00 Intake Total 360 ml 470 ml Output Total 1350 ml Balance 360 ml -880 ml Intake Oral 360 ml 360 ml IV Total 110 ml Output Urine Total 1350 ml Laboratory Tests 09/15/16 05:10: White Blood Count 6.3, Red Blood Count 3.22L, Hemoglobin 9.8L, Hematocrit 30.5L , Mean Corpuscular Volume 95, Mean Corpuscular Hemoglobin 30.5, Mean Corpuscular Hemoglobin Concent 32.2, Red Cell Distribution Width 14.1, Platelet Count 99L, Mean Platelet Volume 7.5, Neutrophils (%) (Auto) , Lymphocytes (%) ( Auto) , Monocytes (%) (Auto) , Eosinophils (%) (Auto) , Basophils (%) (Auto) , Differential Total Cells Counted 100, Neutrophils % (Manual) 55, Lymphocytes % ( Manual) 31, Monocytes % (Manual) 10, Eosinophils % (Manual) 4H, Basophils % ( Manual) 0, Band Neutrophils 0, Platelet Estimate DecreasedL, Platelet Morphology Normal, Hypochromasia 1+, Anisocytosis 1+, Sodium Level 141, Potassium Level 4.3, Chloride Level 105, Carbon Dioxide Level 22, Anion Gap 14, Blood Urea Nitrogen 40H, Creatinine 1.3H, Estimat Glomerular Filtration Rate , Glucose Level 138H, Calcium Level 10.4H Height (Feet): 5 Height (Inches): 5.00 Weight (Pounds): 300 Objective Obese WW Alert NCAT Supple CTA RRR Soft ND NT (+) chronic edema KIERSTEN DAVIES September 15, 2016 11:28
--- NOTE | 2016-09-15 12:01 | Diagnostic Imaging Report ---
Indication: Abdominal pain Technique: Continuous helical transaxial imaging of the abdomen and pelvis was obtained from the lung bases to the pubic symphysis during intravenous contrast administration. Coronal 2-D reformats were also obtained. Study obtained in a Siemens sensation [address] Total Dose length Product (DLP): [address] Dose Index Volume (CTDIvol): 20 mGy Comparison: 09/26/15 Findings: Generalized cardiomegaly demonstrated. The lung bases are essentially clear. There is nodularity of the liver. The spleen is enlarged. Gallstones are noted within distended gallbladder. Multiple enhancing vessels in the splenic hilum noted. There is a spontaneous splenorenal shunt. Findings are indicative of portal hypertension. Metallic foreign body just deep to the ventral abdominal wall in the left noted. Nunez catheter noted in good position. Left inguinal hernia containing fat demonstrated. Right femoral line in good position. There is no hydronephrosis. Impression: Chronic liver disease/cirrhosis. Evidence of portal hypertension with portosystemic varices, spontaneous splenorenal shunt and splenomegaly. Hiatal hernia Cholelithiasis. Moderate feces Left inguinal hernia containing fat. Nunez catheter in good position. Metallic foreign body in the anterior abdomen. This may be a surgical clip The CT scanner at [facility] is accredited by the [employer] and the scans are performed using dose optimization techniques as appropriate to a performed exam including Automatic Exposure control.
--- NOTE | 2016-09-15 12:36 | Infectious Diseases Prog Note ---
Assessment/Plan Assessment/Plan ASSESSMENT: 76 y/o female with: ]// propbable HCAP // / Recurrent UTI E.coli + , - CT A/P 09/2015: 9 x 4 mm left proximal ureteral stone with mild left hydronephrosis. // Hx of Rt leg cellulitis // hx of PICC infection and CoNS recurrent bacteremia : // Multiple superficial decubitis POA, not grossly infected // CKD3 // Hypercalcemia // DM2 // Obesity // MRSA, VRE colonized // PCN allergy - tolerates carbapenems // Full Code PLAN: - Start Merrem d# 4 / 7 ( 08/23 SP Vanco d# 4 ) ( 06/26 SP Cefepime d# 3 ) ( 06/11 SP IV vancomycin, meropenem d# 3 ) - monitor CBC, temperatures - monitor BMP Subjective Constitutional: Denies: anorexia, chills, drenching sweats, fatigue, fever, no symptoms, other Allergies: Coded Allergies: PENICILLINS (Unverified Allergy, Unknown, 03/22/15) Objective Vital Signs Last 24 Hour Vital Signs Date Time Temp Pulse Resp B/P Pulse Ox O2 Delivery O2 Flow Rate FiO2 09/15/16 12:07 97.5 65 20 144/69 97 Room Air 09/15/16 09:28 68 16 Room Air 09/15/16 09:28 Room Air 09/15/16 09:28 98 Room Air 09/15/16 08:18 77 143/78 09/15/16 08:18 143/78 09/15/16 08:00 97.7 76 18 164/87 96 Room Air 09/15/16 04:00 98.1 77 20 143/78 97 Room Air 09/15/16 00:00 97.0 72 18 147/76 99 Room Air 09/14/16 20:55 66 148/66 09/14/16 20:00 98.2 66 18 148/66 Room Air 09/14/16 19:55 Room Air 09/14/16 19:55 Room Air 09/14/16 16:38 97.6 62 19 121/76 99 Room Air Height (Feet): 5 Height (Inches): 5.00 Weight (Pounds): 300 HEENT: mucous membranes moist Respiratory/Chest: no accessory muscle use Abdomen: non distended Laboratory Tests Test 09/15/16 05:10 White Blood Count 6.3 K/UL (4.8-10.8) Red Blood Count 3.22 M/UL (4.20-5.40) L Hemoglobin 9.8 G/DL (12.0-16.0) L Hematocrit 30.5 % (37.0-47.0) L Mean Corpuscular Volume 95 FL (80-99) Mean Corpuscular Hemoglobin 30.5 PG (27.0-31.0) Mean Corpuscular Hemoglobin Concent 32.2 G/DL (32.0-36.0) Red Cell Distribution Width 14.1 % (11.6-14.8) Platelet Count 99 K/UL (150-450) L Mean Platelet Volume 7.5 FL (6.5-10.1) Neutrophils (%) (Auto) % (45.0-75.0) Lymphocytes (%) (Auto) % (20.0-45.0) Monocytes (%) (Auto) % (1.0-10.0) Eosinophils (%) (Auto) % (0.0-3.0) Basophils (%) (Auto) % (0.0-2.0) Differential Total Cells Counted 100 Neutrophils % (Manual) 55 % (45-75) Lymphocytes % (Manual) 31 % (20-45) Monocytes % (Manual) 10 % (1-10) Eosinophils % (Manual) 4 % (0-3) H Basophils % (Manual) 0 % (0-2) Band Neutrophils 0 % (0-8) Platelet Estimate Decreased L Platelet Morphology Normal Hypochromasia 1+ Anisocytosis 1+ Sodium Level 141 mEQ/L (135-145) Potassium Level 4.3 mEQ/L (3.4-4.9) Chloride Level 105 mEQ/L (98-107) Carbon Dioxide Level 22 mEQ/L (20-30) Anion Gap 14 (5-15) Blood Urea Nitrogen 40 mg/dL (7-23) H Creatinine 1.3 mg/dL (0.5-0.9) H Estimat Glomerular Filtration Rate mL/min (>60) Glucose Level 138 mg/dL (74-106) H Calcium Level 10.4 mg/dL (8.6-10.2) H Current Medications Medications (Trade) Dose Ordered Sig/Pavel Route PRN Reason Start Time Stop Time Status Last Admin Dose Admin Acetaminophen (Tylenol) 650 mg Q4H PRN ORAL T>100.5 09/12/16 03:45 10/12/16 03:44 Albuterol/ Ipratropium (DuoNeb 0.5-3(2.5)mg/3ml) 3 ml Q4H PRN HHN dyspnea 09/12/16 03:45 09/17/16 03:44 Chlorhexidine Gluconate (Dianne-Hex 2%) 1 applic Q24H TOPIC 09/12/16 11:00 10/12/16 10:59 09/14/16 11:18 Clonidine HCl (Catapres) 0.1 mg Q4H PRN ORAL SBP>160 09/12/16 03:45 10/12/16 03:44 09/14/16 00:29 Clopidogrel Bisulfate (Plavix) 75 mg DAILY ORAL 09/12/16 09:00 10/12/16 08:59 09/15/16 08:18 Dextrose (Dextrose 50%) STAT PRN IV Hypoglycemia 09/12/16 15:45 10/12/16 15:44 Gabapentin (Neurontin) 300 mg DAILY ORAL 09/12/16 09:00 10/12/16 08:59 09/15/16 08:18 Heparin Sodium (Porcine) (Heparin 5000 units/ml) 5,000 units EVERY 12 HOURS SUBQ 09/12/16 09:00 10/12/16 08:59 09/13/16 21:26 Insulin Aspart (NovoLOG) BEFORE MEALS AND HS SUBQ 09/12/16 06:30 10/12/16 06:29 09/14/16 21:05 Lorazepam (Ativan 2mg/ml 1ml) 0.5 mg Q4H PRN IV For Anxiety 09/12/16 03:45 09/19/16 03:44 Losartan Potassium (Cozaar) 12.5 mg DAILY ORAL 09/12/16 09:00 10/12/16 08:59 09/15/16 08:18 Meropenem/Sodium Chloride (Merrem/Sodium Chloride) 110 ml @ 220 mls/hr Q12HR IVPB 09/12/16 13:00 09/17/16 12:59 09/15/16 08:18 Metoprolol Tartrate (Lopressor) 25 mg EVERY 12 HOURS ORAL 09/12/16 09:00 10/12/16 08:59 09/15/16 08:18 Morphine Sulfate (Morphine Sulfate) 2 mg Q4H PRN IVP Severe Pain (Pain Scale 7-10) 09/12/16 03:45 09/19/16 03:44 09/13/16 02:49 Nateglinide (Starlix) 90 mg BEFORE MEALS ORAL 09/12/16 06:30 10/12/16 06:29 09/14/16 16:35 Nitroglycerin (Ntg) 0.4 mg Q5M X 3 DOSES PRN SL Prn Chest Pain 09/12/16 00:15 10/12/16 00:14 Ondansetron HCl (Zofran) 4 mg Q6H PRN IVP Nausea & Vomiting 09/12/16 03:45 10/12/16 03:44 Promethazine HCl/ Codeine (Phenergan with Codeine) 5 ml Q6H PRN ORAL For Cough 09/12/16 03:45 10/12/16 03:44 Sertraline HCl (Zoloft) 50 mg DAILY ORAL 09/12/16 09:00 10/12/16 08:59 09/15/16 08:18 Simethicone (Mylicon) 160 mg Q8H PRN ORAL Abdominal cramps 09/12/16 07:45 10/12/16 07:44 Temazepam (Restoril) 15 mg HSPRN PRN ORAL Insomnia 09/12/16 21:00 09/19/16 20:59 09/14/16 20:55 Theophylline 100 mg 100 mg EVERY 12 HOURS ORAL 09/12/16 09:00 10/12/16 08:59 09/15/16 08:18 LYLA ROJAS M.D. September 15, 2016 12:36
--- NOTE | 2016-09-15 17:12 | Internal Med Progress Note ---
Subjective Date of Service: September 15, 2016 Physician Name Katharina Pond Attending Physician Rl Tee MD Current Medications Medications (Trade) Dose Ordered Sig/Pavel Route PRN Reason Start Time Stop Time Status Last Admin Dose Admin Acetaminophen (Tylenol) 650 mg Q4H PRN ORAL T>100.5 09/12/16 03:45 10/12/16 03:44 Albuterol/ Ipratropium (DuoNeb 0.5-3(2.5)mg/3ml) 3 ml Q4H PRN HHN dyspnea 09/12/16 03:45 09/17/16 03:44 Chlorhexidine Gluconate (Dianne-Hex 2%) 1 applic Q24H TOPIC 09/12/16 11:00 10/12/16 10:59 09/15/16 11:00 Clonidine HCl (Catapres) 0.1 mg Q4H PRN ORAL SBP>160 09/12/16 03:45 10/12/16 03:44 09/14/16 00:29 Clopidogrel Bisulfate (Plavix) 75 mg DAILY ORAL 09/12/16 09:00 10/12/16 08:59 09/15/16 08:18 Dextrose (Dextrose 50%) STAT PRN IV Hypoglycemia 09/12/16 15:45 10/12/16 15:44 Gabapentin (Neurontin) 300 mg DAILY ORAL 09/12/16 09:00 10/12/16 08:59 09/15/16 08:18 Heparin Sodium (Porcine) (Heparin 5000 units/ml) 5,000 units EVERY 12 HOURS SUBQ 09/12/16 09:00 10/12/16 08:59 09/13/16 21:26 Insulin Aspart (NovoLOG) BEFORE MEALS AND HS SUBQ 09/12/16 06:30 10/12/16 06:29 09/15/16 16:12 Lorazepam (Ativan 2mg/ml 1ml) 0.5 mg Q4H PRN IV For Anxiety 09/12/16 03:45 09/19/16 03:44 Losartan Potassium (Cozaar) 12.5 mg DAILY ORAL 09/12/16 09:00 10/12/16 08:59 09/15/16 08:18 Meropenem/Sodium Chloride (Merrem/Sodium Chloride) 110 ml @ 220 mls/hr Q12HR IVPB 09/12/16 13:00 09/17/16 12:59 09/15/16 08:18 Metoprolol Tartrate (Lopressor) 25 mg EVERY 12 HOURS ORAL 09/12/16 09:00 10/12/16 08:59 09/15/16 08:18 Morphine Sulfate (Morphine Sulfate) 2 mg Q4H PRN IVP Severe Pain (Pain Scale 7-10) 09/12/16 03:45 09/19/16 03:44 09/13/16 02:49 Nateglinide (Starlix) 90 mg BEFORE MEALS ORAL 09/12/16 06:30 10/12/16 06:29 09/15/16 16:13 Nitroglycerin (Ntg) 0.4 mg Q5M X 3 DOSES PRN SL Prn Chest Pain 09/12/16 00:15 10/12/16 00:14 Ondansetron HCl (Zofran) 4 mg Q6H PRN IVP Nausea & Vomiting 09/12/16 03:45 10/12/16 03:44 Promethazine HCl/ Codeine (Phenergan with Codeine) 5 ml Q6H PRN ORAL For Cough 09/12/16 03:45 10/12/16 03:44 Sertraline HCl (Zoloft) 50 mg DAILY ORAL 09/12/16 09:00 10/12/16 08:59 09/15/16 08:18 Simethicone (Mylicon) 160 mg Q8H PRN ORAL Abdominal cramps 09/12/16 07:45 10/12/16 07:44 Temazepam (Restoril) 15 mg HSPRN PRN ORAL Insomnia 09/12/16 21:00 09/19/16 20:59 09/14/16 20:55 Theophylline 100 mg 100 mg EVERY 12 HOURS ORAL 09/12/16 09:00 10/12/16 08:59 09/15/16 08:18 Allergies: Coded Allergies: PENICILLINS (Unverified Allergy, Unknown, 03/22/15) ROS Limited/Unobtainable: No Constitutional: Reports: no symptoms HEENT: Reports: no symptoms Cardiovascular: Reports: no symptoms Respiratory: Reports: cough, shortness of breath Gastrointestinal/Abdominal: Reports: no symptoms Genitourinary: Reports: no symptoms Neurologic/Psychiatric: Reports: no symptoms Subjective 76 YO F admitted with wheezing and cough. Ciover for int Med-Dr Tee. Now UTI Objective Last Vital Signs Date Time Temp Pulse Resp B/P Pulse Ox O2 Delivery O2 Flow Rate FiO2 09/15/16 16:00 97.7 68 18 139/73 98 Room Air 09/12/16 19:30 2.0 09/12/16 19:30 28 Laboratory Tests Test 09/15/16 05:10 White Blood Count 6.3 K/UL (4.8-10.8) Red Blood Count 3.22 M/UL (4.20-5.40) L Hemoglobin 9.8 G/DL (12.0-16.0) L Hematocrit 30.5 % (37.0-47.0) L Mean Corpuscular Volume 95 FL (80-99) Mean Corpuscular Hemoglobin 30.5 PG (27.0-31.0) Mean Corpuscular Hemoglobin Concent 32.2 G/DL (32.0-36.0) Red Cell Distribution Width 14.1 % (11.6-14.8) Platelet Count 99 K/UL (150-450) L Mean Platelet Volume 7.5 FL (6.5-10.1) Neutrophils (%) (Auto) % (45.0-75.0) Lymphocytes (%) (Auto) % (20.0-45.0) Monocytes (%) (Auto) % (1.0-10.0) Eosinophils (%) (Auto) % (0.0-3.0) Basophils (%) (Auto) % (0.0-2.0) Differential Total Cells Counted 100 Neutrophils % (Manual) 55 % (45-75) Lymphocytes % (Manual) 31 % (20-45) Monocytes % (Manual) 10 % (1-10) Eosinophils % (Manual) 4 % (0-3) H Basophils % (Manual) 0 % (0-2) Band Neutrophils 0 % (0-8) Platelet Estimate Decreased L Platelet Morphology Normal Hypochromasia 1+ Anisocytosis 1+ Sodium Level 141 mEQ/L (135-145) Potassium Level 4.3 mEQ/L (3.4-4.9) Chloride Level 105 mEQ/L (98-107) Carbon Dioxide Level 22 mEQ/L (20-30) Anion Gap 14 (5-15) Blood Urea Nitrogen 40 mg/dL (7-23) H Creatinine 1.3 mg/dL (0.5-0.9) H Estimat Glomerular Filtration Rate mL/min (>60) Glucose Level 138 mg/dL (74-106) H Calcium Level 10.4 mg/dL (8.6-10.2) H Intake and Output 09/14/16 09/15/16 19:00 07:00 Intake Total 360 ml 470 ml Output Total 1350 ml Balance 360 ml -880 ml Intake Oral 360 ml 360 ml IV Total 110 ml Output Urine Total 1350 ml Objective General: alert, cooperative, no distress, appears stated age Head: normocephalic, without obvious abnormality, atraumatic Eyes: conjunctivae/corneas clear. PERRL, EOM's intact Throat: lips, mucosa, and tongue normal. MMM Neck: supple, symmetrical, trachea midline, and no JVD Lungs: Few wheezes bilat, otherwise clear to auscultation bilaterally Heart: regular rate and rhythm, S1, S2 normal, no murmur, click, rub or gallop Abdomen: soft, non-tender, non-distended, bowel sounds normal; no masses or organomegaly Extremities: extremities normal, atraumatic, no cyanosis or edema Pulses: 2+ and symmetric Skin: skin color, texture, turgor normal; no rashes or lesions Neurologic: grossly normal, no focal deficits Assessment/Plan Problem List: (1) Wheezing (2) Cough (3) COPD exacerbation Assessment & Plan: See pulmonary note. Continue meropenem (4) Renal failure (5) DM (diabetes mellitus) Assessment & Plan: Cont starlix and novolog (6) SOB (shortness of breath) (7) Cirrhosis (8) Hypertension Assessment & Plan: Cont lopressor (9) Sleep apnea, obstructive (10) Obesity (11) UTI (urinary tract infection) Assessment & Plan: Multi drug resistant E. Coli. Cont meropenem; see ID note Status: not improved KATHARINA POND September 15, 2016 17:12
[2016-09-15] MEDS: Morphine Sulfate 2mg/ml Inj IVP PRN (20:58)
--- NOTE | 2016-09-15 21:45 | Progress Note ---
DATE: 09/15/2016 SUBJECTIVE: The patient is doing well. No behavior issues. She is dysphoric, less focused on discharge, remaining in the hospital uncooperative with the primary team. MENTAL STATUS EXAMINATION: Alert and oriented x3. Mood is neutral. Affect is constricted. Congruent with mood. Thought process is concrete. Thought content, no suicidal or homicidal ideation. Cognition is intact. Insight and judgment are fair. ASSESSMENT: Major depressive disorder. PLAN: 1. The patient will be continued on current medication. 2. Provide the patient with reality orientation and supportive therapy. Oj Medel M.D. DR: COURT JOB#: [id number] CC:
--- NOTE | 2016-09-15 22:46 | Pulmonology Progress Note ---
Assessment/Plan Problems: (1) COPD exacerbation (2) Sepsis (3) ARF (acute renal failure) (4) DM (diabetes mellitus) (5) Sleep apnea (6) Hypertension (7) Cardiomegaly Assessment/Plan MDR E coli, on Merrem check cultures improving cxr bnp not much change sliding scale pt/ot dc planning Subjective ROS Limited/Unobtainable: No Interval Events: no new complains Allergies: Coded Allergies: PENICILLINS (Unverified Allergy, Unknown, 03/22/15) Objective Last 24 Hour Vital Signs Date Time Temp Pulse Resp B/P Pulse Ox O2 Delivery O2 Flow Rate FiO2 09/15/16 21:28 97.5 09/15/16 20:53 82 141/74 09/15/16 20:04 98 Room Air 09/15/16 20:04 Room Air 09/15/16 20:03 82 16 Room Air 09/15/16 19:51 97.5 77 19 141/74 99 Room Air 09/15/16 16:00 97.7 68 18 139/73 98 Room Air 09/15/16 12:07 97.5 65 20 144/69 97 Room Air 09/15/16 09:28 68 16 Room Air 09/15/16 09:28 Room Air 09/15/16 09:28 98 Room Air 09/15/16 08:18 77 143/78 09/15/16 08:18 143/78 09/15/16 08:00 97.7 76 18 164/87 96 Room Air 09/15/16 04:00 98.1 77 20 143/78 97 Room Air 09/15/16 00:00 97.0 72 18 147/76 99 Room Air Intake and Output 09/14/16 09/15/16 19:00 07:00 Intake Total 360 ml 470 ml Output Total 1350 ml Balance 360 ml -880 ml Intake Oral 360 ml 360 ml IV Total 110 ml Output Urine Total 1350 ml Objective General Appearance: obese HEENT: normocephalic, atraumatic Respiratory/Chest: chest wall non-tender, lungs clear Cardiovascular: normal peripheral pulses, normal rate Abdomen: normal bowel sounds, soft, non tender Genitourinary: normal external genitalia Extremities: no cyanosis Skin: no rash Laboratory Tests 09/15/16 05:10: White Blood Count 6.3, Red Blood Count 3.22L, Hemoglobin 9.8L, Hematocrit 30.5L , Mean Corpuscular Volume 95, Mean Corpuscular Hemoglobin 30.5, Mean Corpuscular Hemoglobin Concent 32.2, Red Cell Distribution Width 14.1, Platelet Count 99L, Mean Platelet Volume 7.5, Neutrophils (%) (Auto) , Lymphocytes (%) ( Auto) , Monocytes (%) (Auto) , Eosinophils (%) (Auto) , Basophils (%) (Auto) , Differential Total Cells Counted 100, Neutrophils % (Manual) 55, Lymphocytes % ( Manual) 31, Monocytes % (Manual) 10, Eosinophils % (Manual) 4H, Basophils % ( Manual) 0, Band Neutrophils 0, Platelet Estimate DecreasedL, Platelet Morphology Normal, Hypochromasia 1+, Anisocytosis 1+, Sodium Level 141, Potassium Level 4.3, Chloride Level 105, Carbon Dioxide Level 22, Anion Gap 14, Blood Urea Nitrogen 40H, Creatinine 1.3H, Estimat Glomerular Filtration Rate , Glucose Level 138H, Calcium Level 10.4H Current Medications Medications (Trade) Dose Ordered Sig/Pavel Route PRN Reason Start Time Stop Time Status Last Admin Dose Admin Acetaminophen (Tylenol) 650 mg Q4H PRN ORAL T>100.5 09/12/16 03:45 10/12/16 03:44 Albuterol/ Ipratropium (DuoNeb 0.5-3(2.5)mg/3ml) 3 ml Q4H PRN HHN dyspnea 09/12/16 03:45 09/17/16 03:44 Chlorhexidine Gluconate (Dianne-Hex 2%) 1 applic Q24H TOPIC 09/12/16 11:00 10/12/16 10:59 09/15/16 11:00 Clonidine HCl (Catapres) 0.1 mg Q4H PRN ORAL SBP>160 09/12/16 03:45 10/12/16 03:44 09/14/16 00:29 Clopidogrel Bisulfate (Plavix) 75 mg DAILY ORAL 09/12/16 09:00 10/12/16 08:59 09/15/16 08:18 Dextrose (Dextrose 50%) STAT PRN IV Hypoglycemia 09/12/16 15:45 10/12/16 15:44 Gabapentin (Neurontin) 300 mg DAILY ORAL 09/12/16 09:00 10/12/16 08:59 09/15/16 08:18 Heparin Sodium (Porcine) (Heparin 5000 units/ml) 5,000 units EVERY 12 HOURS SUBQ 09/12/16 09:00 10/12/16 08:59 09/13/16 21:26 Insulin Aspart (NovoLOG) BEFORE MEALS AND HS SUBQ 09/12/16 06:30 10/12/16 06:29 09/15/16 20:52 Lorazepam (Ativan 2mg/ml 1ml) 0.5 mg Q4H PRN IV For Anxiety 09/12/16 03:45 09/19/16 03:44 Losartan Potassium (Cozaar) 12.5 mg DAILY ORAL 09/12/16 09:00 10/12/16 08:59 09/15/16 08:18 Meropenem/Sodium Chloride (Merrem/Sodium Chloride) 110 ml @ 220 mls/hr Q12HR IVPB 09/12/16 13:00 09/17/16 12:59 09/15/16 20:50 Metoprolol Tartrate (Lopressor) 25 mg EVERY 12 HOURS ORAL 09/12/16 09:00 10/12/16 08:59 09/15/16 20:53 Morphine Sulfate (Morphine Sulfate) 2 mg Q4H PRN IVP Severe Pain (Pain Scale 7-10) 09/12/16 03:45 09/19/16 03:44 09/15/16 20:58 Nateglinide (Starlix) 90 mg BEFORE MEALS ORAL 09/12/16 06:30 10/12/16 06:29 09/15/16 16:13 Nitroglycerin (Ntg) 0.4 mg Q5M X 3 DOSES PRN SL Prn Chest Pain 09/12/16 00:15 10/12/16 00:14 Ondansetron HCl (Zofran) 4 mg Q6H PRN IVP Nausea & Vomiting 09/12/16 03:45 10/12/16 03:44 Promethazine HCl/ Codeine (Phenergan with Codeine) 5 ml Q6H PRN ORAL For Cough 09/12/16 03:45 10/12/16 03:44 Sertraline HCl (Zoloft) 50 mg DAILY ORAL 09/12/16 09:00 10/12/16 08:59 09/15/16 08:18 Simethicone (Mylicon) 160 mg Q8H PRN ORAL Abdominal cramps 09/12/16 07:45 10/12/16 07:44 Temazepam (Restoril) 15 mg HSPRN PRN ORAL Insomnia 09/12/16 21:00 09/19/16 20:59 09/14/16 20:55 Theophylline 100 mg 100 mg EVERY 12 HOURS ORAL 09/12/16 09:00 10/12/16 08:59 09/15/16 20:53 DIONI TRIANA September 15, 2016 22:46
[2016-09-16] MEDS: Morphine Sulfate 2mg/ml Inj IVP PRN (02:12)
[2016-09-16 04:01] VITALS: BP 164/66
[2016-09-16 05:11] VITALS: BP 142/72
[2016-09-16] MEDS: Nateglinide 60mg tab ORAL SCH ×3 (06:10→17:42)
[2016-09-16] MEDS: NovoLOG Insulin Flexpen SUBQ SCH ×3 (06:14→17:41)
[2016-09-16 07:03] LABS: BASOPHILS % (AUTO) 0.4 % (0.0-2.0); EOSINOPHILS % (AUTO) 8.5 % (0.0-3.0); LYMPHOCYTES % (AUTO) 27.2 % (20.0-45.0); MEAN CORPUSCULAR HEMOGLOBIN 30.9 PG (27.0-31.0); MEAN CORPUSCULAR HGB CONC 32.8 G/DL (32.0-36.0); MEAN CORPUSCULAR VOLUME 94 FL (80-99); MONOCYTES % (AUTO) 7.3 % (1.0-10.0); NEUTROPHILS % (AUTO) 56.7 % (45.0-75.0); PLATELET COUNT 106 K/UL (150-450); RED BLOOD COUNT 3.29 M/UL (4.20-5.40); RED CELL DISTRIBUTION WIDTH 13.6 % (11.6-14.8); WHITE BLOOD COUNT 9.6 K/UL (4.8-10.8)
[2016-09-16 07:10] LABS: ANION GAP 13 (5-15); CALCIUM 10.1 mg/dL (8.6-10.2); CARBON DIOXIDE 22 mEQ/L (20-30); CHLORIDE 105 mEQ/L (98-107); CREATININE 1.3 mg/dL (0.5-0.9); HEMOLYSIS 3; POTASSIUM 4.1 mEQ/L (3.4-4.9); SODIUM 140 mEQ/L (135-145)
[2016-09-16 08:00] VITALS: BP 134/114
[2016-09-16] MEDS: Heparin 5000 units/ml inj SUBQ SCH (08:47)
[2016-09-16] MEDS: Meropenem 1 GM in NS 110 ML IVPB SCH (08:47)
[2016-09-16] MEDS: Metoprolol 25mg tab ORAL SCH (08:47)
[2016-09-16] MEDS: Theophylline ER 100mg ORAL SCH (08:48)
[2016-09-16] MEDS: Losartan 25mg tab ORAL SCH (08:48)
[2016-09-16] MEDS: Sertraline 50mg tab ORAL SCH (08:48)
--- NOTE | 2016-09-16 10:41 | Infectious Diseases Prog Note ---
Assessment/Plan Assessment/Plan ASSESSMENT: 76 y/o female with: ]// propbable HCAP // / Recurrent UTI E.coli + , - CT A/P 09/2015: 9 x 4 mm left proximal ureteral stone with mild left hydronephrosis. // Hx of Rt leg cellulitis // hx of PICC infection and CoNS recurrent bacteremia : // Multiple superficial decubitis POA, not grossly infected // CKD3 // Hypercalcemia // DM2 // Obesity // MRSA, VRE colonized // PCN allergy - tolerates carbapenems // Full Code PLAN: cont Merrem d# 5 / , upon DC will change to Invanz to complete the course ( 08/23 SP Vanco d# 4 ) ( 06/26 SP Cefepime d# 3 ) ( 06/11 SP IV vancomycin, meropenem d# 3 ) - monitor CBC, temperatures - monitor BMP Subjective Constitutional: Denies: anorexia, chills, drenching sweats, fatigue, fever, no symptoms, other Allergies: Coded Allergies: PENICILLINS (Unverified Allergy, Unknown, 03/22/15) Objective Vital Signs Last 24 Hour Vital Signs Date Time Temp Pulse Resp B/P Pulse Ox O2 Delivery O2 Flow Rate FiO2 09/16/16 08:48 134/114 09/16/16 08:47 109 134/114 09/16/16 08:00 97.2 109 19 134/114 97 Room Air 09/16/16 07:35 115 20 Room Air 09/16/16 07:35 97 Room Air 09/16/16 07:35 Room Air 09/16/16 05:11 142/72 09/16/16 04:01 97.5 87 15 164/66 99 Room Air 09/16/16 02:42 97.5 09/15/16 23:56 97.5 82 14 135/77 99 Room Air 09/15/16 23:36 75 18 100 Room Air 09/15/16 23:35 82 18 96 Room Air 09/15/16 20:53 82 141/74 09/15/16 20:04 98 Room Air 09/15/16 20:04 Room Air 09/15/16 20:03 82 16 Room Air 09/15/16 19:51 97.5 77 19 141/74 99 Room Air 09/15/16 16:00 97.7 68 18 139/73 98 Room Air 09/15/16 12:07 97.5 65 20 144/69 97 Room Air Height (Feet): 5 Height (Inches): 5.00 Weight (Pounds): 300 HEENT: anicteric Respiratory/Chest: normal breath sounds Cardiovascular: normal rate Abdomen: no organomegaly Laboratory Tests Test 09/16/16 05:00 White Blood Count 9.6 K/UL (4.8-10.8) # Red Blood Count 3.29 M/UL (4.20-5.40) L Hemoglobin 10.1 G/DL (12.0-16.0) L Hematocrit 31.0 % (37.0-47.0) L Mean Corpuscular Volume 94 FL (80-99) Mean Corpuscular Hemoglobin 30.9 PG (27.0-31.0) Mean Corpuscular Hemoglobin Concent 32.8 G/DL (32.0-36.0) Red Cell Distribution Width 13.6 % (11.6-14.8) Platelet Count 106 K/UL (150-450) L Mean Platelet Volume 7.0 FL (6.5-10.1) Neutrophils (%) (Auto) 56.7 % (45.0-75.0) Lymphocytes (%) (Auto) 27.2 % (20.0-45.0) Monocytes (%) (Auto) 7.3 % (1.0-10.0) Eosinophils (%) (Auto) 8.5 % (0.0-3.0) H Basophils (%) (Auto) 0.4 % (0.0-2.0) Sodium Level 140 mEQ/L (135-145) Potassium Level 4.1 mEQ/L (3.4-4.9) Chloride Level 105 mEQ/L (98-107) Carbon Dioxide Level 22 mEQ/L (20-30) Anion Gap 13 (5-15) Blood Urea Nitrogen 31 mg/dL (7-23) H Creatinine 1.3 mg/dL (0.5-0.9) H Estimat Glomerular Filtration Rate mL/min (>60) Glucose Level 124 mg/dL (74-106) H Calcium Level 10.1 mg/dL (8.6-10.2) Current Medications Medications (Trade) Dose Ordered Sig/Pavel Route PRN Reason Start Time Stop Time Status Last Admin Dose Admin Acetaminophen (Tylenol) 650 mg Q4H PRN ORAL T>100.5 09/12/16 03:45 10/12/16 03:44 Albuterol/ Ipratropium (DuoNeb 0.5-3(2.5)mg/3ml) 3 ml Q4H PRN HHN dyspnea 09/12/16 03:45 09/17/16 03:44 09/15/16 23:33 Chlorhexidine Gluconate (Dianne-Hex 2%) 1 applic Q24H TOPIC 09/12/16 11:00 10/12/16 10:59 09/15/16 11:00 Clonidine HCl (Catapres) 0.1 mg Q4H PRN ORAL SBP>160 09/12/16 03:45 10/12/16 03:44 09/14/16 00:29 Clopidogrel Bisulfate (Plavix) 75 mg DAILY ORAL 09/12/16 09:00 10/12/16 08:59 09/16/16 08:47 Dextrose (Dextrose 50%) STAT PRN IV Hypoglycemia 09/12/16 15:45 10/12/16 15:44 Gabapentin (Neurontin) 300 mg DAILY ORAL 09/12/16 09:00 10/12/16 08:59 09/16/16 08:48 Heparin Sodium (Porcine) (Heparin 5000 units/ml) 5,000 units EVERY 12 HOURS SUBQ 09/12/16 09:00 10/12/16 08:59 09/16/16 08:47 Insulin Aspart (NovoLOG) BEFORE MEALS AND HS SUBQ 09/12/16 06:30 10/12/16 06:29 09/16/16 06:14 Lorazepam (Ativan 2mg/ml 1ml) 0.5 mg Q4H PRN IV For Anxiety 09/12/16 03:45 09/19/16 03:44 Losartan Potassium (Cozaar) 12.5 mg DAILY ORAL 09/12/16 09:00 10/12/16 08:59 09/16/16 08:48 Meropenem/Sodium Chloride (Merrem/Sodium Chloride) 110 ml @ 220 mls/hr Q12HR IVPB 09/12/16 13:00 09/18/16 23:59 09/16/16 08:47 Metoprolol Tartrate (Lopressor) 25 mg EVERY 12 HOURS ORAL 09/12/16 09:00 10/12/16 08:59 09/16/16 08:47 Morphine Sulfate (Morphine Sulfate) 2 mg Q4H PRN IVP Severe Pain (Pain Scale 7-10) 09/12/16 03:45 09/19/16 03:44 09/16/16 02:12 Nateglinide (Starlix) 90 mg BEFORE MEALS ORAL 09/12/16 06:30 10/12/16 06:29 09/16/16 06:10 Nitroglycerin (Ntg) 0.4 mg Q5M X 3 DOSES PRN SL Prn Chest Pain 09/12/16 00:15 10/12/16 00:14 Ondansetron HCl (Zofran) 4 mg Q6H PRN IVP Nausea & Vomiting 09/12/16 03:45 10/12/16 03:44 Promethazine HCl/ Codeine (Phenergan with Codeine) 5 ml Q6H PRN ORAL For Cough 09/12/16 03:45 10/12/16 03:44 Sertraline HCl (Zoloft) 50 mg DAILY ORAL 09/12/16 09:00 10/12/16 08:59 09/16/16 08:48 Simethicone (Mylicon) 160 mg Q8H PRN ORAL Abdominal cramps 09/12/16 07:45 10/12/16 07:44 Temazepam (Restoril) 15 mg HSPRN PRN ORAL Insomnia 09/12/16 21:00 09/19/16 20:59 09/14/16 20:55 Theophylline 100 mg 100 mg EVERY 12 HOURS ORAL 09/12/16 09:00 10/12/16 08:59 09/16/16 08:48 LYLA ROJAS M.D. September 16, 2016 10:41
[2016-09-16 11:37] VITALS: BP 128/75
[2016-09-16] MEDS: Dyna-Hex 2% Top Sol 8oz TOPIC SCH (11:45)
[2016-09-16 15:44] VITALS: BP 133/65
--- NOTE | 2016-09-16 18:02 | Pulmonology Progress Note ---
Assessment/Plan Problems: (1) COPD exacerbation (2) Sepsis (3) ARF (acute renal failure) (4) DM (diabetes mellitus) (5) Sleep apnea (6) Hypertension (7) Cardiomegaly Assessment/Plan MDR E coli, on Merrem check cultures improving cxr bnp not much change sliding scale pt/ot dc planning to [facility] ABx as per ID Subjective ROS Limited/Unobtainable: No Interval Events: doing better Constitutional: Reports: no symptoms HEENT: Repors: no symptoms Allergies: Coded Allergies: PENICILLINS (Unverified Allergy, Unknown, 03/22/15) Objective Last 24 Hour Vital Signs Date Time Temp Pulse Resp B/P Pulse Ox O2 Delivery O2 Flow Rate FiO2 09/16/16 15:44 98.4 68 20 133/65 100 Room Air 09/16/16 11:37 98.2 74 22 128/75 99 Room Air 09/16/16 08:48 134/114 09/16/16 08:47 109 134/114 09/16/16 08:00 97.2 109 19 134/114 97 Room Air 09/16/16 07:35 115 20 Room Air 09/16/16 07:35 97 Room Air 09/16/16 07:35 Room Air 09/16/16 05:11 142/72 09/16/16 04:01 97.5 87 15 164/66 99 Room Air 09/16/16 02:42 97.5 09/15/16 23:56 97.5 82 14 135/77 99 Room Air 09/15/16 23:36 75 18 100 Room Air 09/15/16 23:35 82 18 96 Room Air 09/15/16 20:53 82 141/74 09/15/16 20:04 98 Room Air 09/15/16 20:04 Room Air 09/15/16 20:03 82 16 Room Air 09/15/16 19:51 97.5 77 19 141/74 99 Room Air Intake and Output 09/15/16 09/16/16 19:00 07:00 Intake Total 240 ml 110 ml Output Total 900 ml Balance -660 ml 110 ml Intake Oral 240 ml IV Total 110 ml Output Urine Total 900 ml Objective General Appearance: obese HEENT: normocephalic, atraumatic Respiratory/Chest: chest wall non-tender, lungs clear Cardiovascular: normal peripheral pulses, normal rate Abdomen: normal bowel sounds, soft, non tender Genitourinary: normal external genitalia Extremities: no cyanosis Skin: no rash Laboratory Tests 09/16/16 05:00: White Blood Count 9.6#, Red Blood Count 3.29L, Hemoglobin 10.1L, Hematocrit 31.0L, Mean Corpuscular Volume 94, Mean Corpuscular Hemoglobin 30.9, Mean Corpuscular Hemoglobin Concent 32.8, Red Cell Distribution Width 13.6, Platelet Count 106L, Mean Platelet Volume 7.0, Neutrophils (%) (Auto) 56.7, Lymphocytes ( %) (Auto) 27.2, Monocytes (%) (Auto) 7.3, Eosinophils (%) (Auto) 8.5H, Basophils (%) (Auto) 0.4, Sodium Level 140, Potassium Level 4.1, Chloride Level 105, Carbon Dioxide Level 22, Anion Gap 13, Blood Urea Nitrogen 31H, Creatinine 1.3H, Estimat Glomerular Filtration Rate , Glucose Level 124H, Calcium Level 10.1 Current Medications Medications (Trade) Dose Ordered Sig/Pavel Route PRN Reason Start Time Stop Time Status Last Admin Dose Admin Acetaminophen (Tylenol) 650 mg Q4H PRN ORAL T>100.5 09/12/16 03:45 10/12/16 03:44 Albuterol/ Ipratropium (DuoNeb 0.5-3(2.5)mg/3ml) 3 ml Q4H PRN HHN dyspnea 09/12/16 03:45 09/17/16 03:44 09/15/16 23:33 Chlorhexidine Gluconate (Dianne-Hex 2%) 1 applic Q24H TOPIC 09/12/16 11:00 10/12/16 10:59 09/16/16 11:45 Clonidine HCl (Catapres) 0.1 mg Q4H PRN ORAL SBP>160 09/12/16 03:45 10/12/16 03:44 09/14/16 00:29 Clopidogrel Bisulfate (Plavix) 75 mg DAILY ORAL 09/12/16 09:00 10/12/16 08:59 09/16/16 08:47 Dextrose (Dextrose 50%) STAT PRN IV Hypoglycemia 09/12/16 15:45 10/12/16 15:44 Gabapentin (Neurontin) 300 mg DAILY ORAL 09/12/16 09:00 10/12/16 08:59 09/16/16 08:48 Heparin Sodium (Porcine) (Heparin 5000 units/ml) 5,000 units EVERY 12 HOURS SUBQ 09/12/16 09:00 10/12/16 08:59 09/16/16 08:47 Insulin Aspart (NovoLOG) BEFORE MEALS AND HS SUBQ 09/12/16 06:30 10/12/16 06:29 09/16/16 17:41 Lorazepam (Ativan 2mg/ml 1ml) 0.5 mg Q4H PRN IV For Anxiety 09/12/16 03:45 09/19/16 03:44 Losartan Potassium (Cozaar) 12.5 mg DAILY ORAL 09/12/16 09:00 10/12/16 08:59 09/16/16 08:48 Meropenem/Sodium Chloride (Merrem/Sodium Chloride) 110 ml @ 220 mls/hr Q12HR IVPB 09/12/16 13:00 09/18/16 23:59 09/16/16 08:47 Metoprolol Tartrate (Lopressor) 25 mg EVERY 12 HOURS ORAL 09/12/16 09:00 10/12/16 08:59 09/16/16 08:47 Morphine Sulfate (Morphine Sulfate) 2 mg Q4H PRN IVP Severe Pain (Pain Scale 7-10) 09/12/16 03:45 09/19/16 03:44 09/16/16 02:12 Nateglinide (Starlix) 90 mg BEFORE MEALS ORAL 09/12/16 06:30 10/12/16 06:29 09/16/16 17:42 Nitroglycerin (Ntg) 0.4 mg Q5M X 3 DOSES PRN SL Prn Chest Pain 09/12/16 00:15 10/12/16 00:14 Ondansetron HCl (Zofran) 4 mg Q6H PRN IVP Nausea & Vomiting 09/12/16 03:45 10/12/16 03:44 Promethazine HCl/ Codeine (Phenergan with Codeine) 5 ml Q6H PRN ORAL For Cough 09/12/16 03:45 10/12/16 03:44 Sertraline HCl (Zoloft) 50 mg DAILY ORAL 09/12/16 09:00 10/12/16 08:59 09/16/16 08:48 Simethicone (Mylicon) 160 mg Q8H PRN ORAL Abdominal cramps 09/12/16 07:45 10/12/16 07:44 Temazepam (Restoril) 15 mg HSPRN PRN ORAL Insomnia 09/12/16 21:00 09/19/16 20:59 09/14/16 20:55 Theophylline 100 mg 100 mg EVERY 12 HOURS ORAL 09/12/16 09:00 10/12/16 08:59 09/16/16 08:48 DIONI TRIANA September 16, 2016 18:02
--- NOTE | 2016-09-16 18:45 | Internal Med Progress Note ---
Subjective Date of Service: September 16, 2016 Physician Name Katharina Pond Attending Physician Rl Tee MD Current Medications Medications (Trade) Dose Ordered Sig/Pavel Route PRN Reason Start Time Stop Time Status Last Admin Dose Admin Acetaminophen (Tylenol) 650 mg Q4H PRN ORAL T>100.5 09/12/16 03:45 10/12/16 03:44 Albuterol/ Ipratropium (DuoNeb 0.5-3(2.5)mg/3ml) 3 ml Q4H PRN HHN dyspnea 09/12/16 03:45 09/17/16 03:44 09/15/16 23:33 Chlorhexidine Gluconate (Dianne-Hex 2%) 1 applic Q24H TOPIC 09/12/16 11:00 10/12/16 10:59 09/16/16 11:45 Clonidine HCl (Catapres) 0.1 mg Q4H PRN ORAL SBP>160 09/12/16 03:45 10/12/16 03:44 09/14/16 00:29 Clopidogrel Bisulfate (Plavix) 75 mg DAILY ORAL 09/12/16 09:00 10/12/16 08:59 09/16/16 08:47 Dextrose (Dextrose 50%) STAT PRN IV Hypoglycemia 09/12/16 15:45 10/12/16 15:44 Gabapentin (Neurontin) 300 mg DAILY ORAL 09/12/16 09:00 10/12/16 08:59 09/16/16 08:48 Heparin Sodium (Porcine) (Heparin 5000 units/ml) 5,000 units EVERY 12 HOURS SUBQ 09/12/16 09:00 10/12/16 08:59 09/16/16 08:47 Insulin Aspart (NovoLOG) BEFORE MEALS AND HS SUBQ 09/12/16 06:30 10/12/16 06:29 09/16/16 17:41 Lorazepam (Ativan 2mg/ml 1ml) 0.5 mg Q4H PRN IV For Anxiety 09/12/16 03:45 09/19/16 03:44 Losartan Potassium (Cozaar) 12.5 mg DAILY ORAL 09/12/16 09:00 10/12/16 08:59 09/16/16 08:48 Meropenem/Sodium Chloride (Merrem/Sodium Chloride) 110 ml @ 220 mls/hr Q12HR IVPB 09/12/16 13:00 09/18/16 23:59 09/16/16 08:47 Metoprolol Tartrate (Lopressor) 25 mg EVERY 12 HOURS ORAL 09/12/16 09:00 10/12/16 08:59 09/16/16 08:47 Morphine Sulfate (Morphine Sulfate) 2 mg Q4H PRN IVP Severe Pain (Pain Scale 7-10) 09/12/16 03:45 09/19/16 03:44 09/16/16 02:12 Nateglinide (Starlix) 90 mg BEFORE MEALS ORAL 09/12/16 06:30 10/12/16 06:29 09/16/16 17:42 Nitroglycerin (Ntg) 0.4 mg Q5M X 3 DOSES PRN SL Prn Chest Pain 09/12/16 00:15 10/12/16 00:14 Ondansetron HCl (Zofran) 4 mg Q6H PRN IVP Nausea & Vomiting 09/12/16 03:45 10/12/16 03:44 Promethazine HCl/ Codeine (Phenergan with Codeine) 5 ml Q6H PRN ORAL For Cough 09/12/16 03:45 10/12/16 03:44 Sertraline HCl (Zoloft) 50 mg DAILY ORAL 09/12/16 09:00 10/12/16 08:59 09/16/16 08:48 Simethicone (Mylicon) 160 mg Q8H PRN ORAL Abdominal cramps 09/12/16 07:45 10/12/16 07:44 Temazepam (Restoril) 15 mg HSPRN PRN ORAL Insomnia 09/12/16 21:00 09/19/16 20:59 09/14/16 20:55 Theophylline 100 mg 100 mg EVERY 12 HOURS ORAL 09/12/16 09:00 10/12/16 08:59 09/16/16 08:48 Allergies: Coded Allergies: PENICILLINS (Unverified Allergy, Unknown, 03/22/15) ROS Limited/Unobtainable: No Constitutional: Reports: no symptoms HEENT: Reports: no symptoms Cardiovascular: Reports: no symptoms Respiratory: Reports: no symptoms Gastrointestinal/Abdominal: Reports: no symptoms Neurologic/Psychiatric: Reports: no symptoms Subjective 76 YO F admitted with wheezing and cough. Ciover for int Med-Dr Randal. Now UTI. Await transfer to [facility] today. Objective Last Vital Signs Date Time Temp Pulse Resp B/P Pulse Ox O2 Delivery O2 Flow Rate FiO2 09/16/16 15:44 98.4 68 20 133/65 100 Room Air 09/12/16 19:30 2.0 09/12/16 19:30 28 Laboratory Tests Test 09/16/16 05:00 White Blood Count 9.6 K/UL (4.8-10.8) # Red Blood Count 3.29 M/UL (4.20-5.40) L Hemoglobin 10.1 G/DL (12.0-16.0) L Hematocrit 31.0 % (37.0-47.0) L Mean Corpuscular Volume 94 FL (80-99) Mean Corpuscular Hemoglobin 30.9 PG (27.0-31.0) Mean Corpuscular Hemoglobin Concent 32.8 G/DL (32.0-36.0) Red Cell Distribution Width 13.6 % (11.6-14.8) Platelet Count 106 K/UL (150-450) L Mean Platelet Volume 7.0 FL (6.5-10.1) Neutrophils (%) (Auto) 56.7 % (45.0-75.0) Lymphocytes (%) (Auto) 27.2 % (20.0-45.0) Monocytes (%) (Auto) 7.3 % (1.0-10.0) Eosinophils (%) (Auto) 8.5 % (0.0-3.0) H Basophils (%) (Auto) 0.4 % (0.0-2.0) Sodium Level 140 mEQ/L (135-145) Potassium Level 4.1 mEQ/L (3.4-4.9) Chloride Level 105 mEQ/L (98-107) Carbon Dioxide Level 22 mEQ/L (20-30) Anion Gap 13 (5-15) Blood Urea Nitrogen 31 mg/dL (7-23) H Creatinine 1.3 mg/dL (0.5-0.9) H Estimat Glomerular Filtration Rate mL/min (>60) Glucose Level 124 mg/dL (74-106) H Calcium Level 10.1 mg/dL (8.6-10.2) Intake and Output 09/15/16 09/16/16 19:00 07:00 Intake Total 240 ml 110 ml Output Total 900 ml Balance -660 ml 110 ml Intake Oral 240 ml IV Total 110 ml Output Urine Total 900 ml Objective General: alert, cooperative, no distress, appears stated age Head: normocephalic, without obvious abnormality, atraumatic Eyes: conjunctivae/corneas clear. PERRL, EOM's intact Throat: lips, mucosa, and tongue normal. MMM Neck: supple, symmetrical, trachea midline, and no JVD Lungs: Few wheezes bilat, otherwise clear to auscultation bilaterally Heart: regular rate and rhythm, S1, S2 normal, no murmur, click, rub or gallop Abdomen: soft, non-tender, non-distended, bowel sounds normal; no masses or organomegaly Extremities: extremities normal, atraumatic, no cyanosis or edema Pulses: 2+ and symmetric Skin: skin color, texture, turgor normal; no rashes or lesions Neurologic: grossly normal, no focal deficits Assessment/Plan Problem List: (1) Wheezing (2) Cough (3) COPD exacerbation Assessment & Plan: See pulmonary note. Continue meropenem (4) Renal failure (5) DM (diabetes mellitus) Assessment & Plan: Cont starlix and novolog (6) SOB (shortness of breath) (7) Cirrhosis (8) Hypertension Assessment & Plan: Cont lopressor (9) Sleep apnea, obstructive (10) Obesity (11) UTI (urinary tract infection) Assessment & Plan: Multi drug resistant E. Coli. Cont meropenem; see ID note Status: stable Assessment/Plan Discharge to [facility] today. KATHARINA POND September 16, 2016 18:45
[2016-09-16] MEDS ORDERED: INVANZ1 G1 IM (18:58)
[2016-09-16] MEDS ORDERED: Tubing IV Secondary IV ONE (19:40)
[2016-09-16] MEDS ORDERED: NS 275ml ONE (19:40)
--- NOTE | 2016-09-16 22:10 | General Progress Note ---
Assessment/Plan Assessment/Plan Assessment - Resp infection / reactive airways - Obesity - DURANT with cirrhosis - h/o coagulopathy - DM - HTN - YELENA - CHF - Anemia - Elevated CEA - ? etiology (CXR neg, CT negative) Recommendations - F/u AFP - pending - Recent abd u/s --> cirrhosis with no mass - low salt diet - abx/RT - watch glucose on steroids - CEA discussed with DTR. Extensive w/u (EGD/colon/mammo/etc) vs no w/u or repeat CEA in 4-6 weeks discussed - DTR to contact me with decision re CEA Subjective Allergies: Coded Allergies: PENICILLINS (Unverified Allergy, Unknown, 03/22/15) Subjective Feels OK no abd complaints tolerating PO for d/c today Objective Last 24 Hour Vital Signs Date Time Temp Pulse Resp B/P Pulse Ox O2 Delivery O2 Flow Rate FiO2 09/16/16 19:16 98 Room Air 09/16/16 19:16 Room Air 09/16/16 19:16 70 16 Room Air 09/16/16 15:44 98.4 68 20 133/65 100 Room Air 09/16/16 11:37 98.2 74 22 128/75 99 Room Air 09/16/16 08:48 134/114 09/16/16 08:47 109 134/114 09/16/16 08:00 97.2 109 19 134/114 97 Room Air 09/16/16 07:35 115 20 Room Air 09/16/16 07:35 97 Room Air 09/16/16 07:35 Room Air 09/16/16 05:11 142/72 09/16/16 04:01 97.5 87 15 164/66 99 Room Air 09/16/16 02:42 97.5 09/15/16 23:56 97.5 82 14 135/77 99 Room Air 09/15/16 23:36 75 18 100 Room Air 09/15/16 23:35 82 18 96 Room Air Intake and Output 09/15/16 09/16/16 18:59 06:59 Intake Total 240 ml 110 ml Output Total 900 ml Balance -660 ml 110 ml Intake Oral 240 ml IV Total 110 ml Output Urine Total 900 ml Laboratory Tests 09/16/16 05:00: White Blood Count 9.6#, Red Blood Count 3.29L, Hemoglobin 10.1L, Hematocrit 31.0L, Mean Corpuscular Volume 94, Mean Corpuscular Hemoglobin 30.9, Mean Corpuscular Hemoglobin Concent 32.8, Red Cell Distribution Width 13.6, Platelet Count 106L, Mean Platelet Volume 7.0, Neutrophils (%) (Auto) 56.7, Lymphocytes ( %) (Auto) 27.2, Monocytes (%) (Auto) 7.3, Eosinophils (%) (Auto) 8.5H, Basophils (%) (Auto) 0.4, Sodium Level 140, Potassium Level 4.1, Chloride Level 105, Carbon Dioxide Level 22, Anion Gap 13, Blood Urea Nitrogen 31H, Creatinine 1.3H, Estimat Glomerular Filtration Rate , Glucose Level 124H, Calcium Level 10.1 Height (Feet): 5 Height (Inches): 5.00 Weight (Pounds): 300 Objective Obese WW Alert NCAT Supple CTA RRR Soft ND NT (+) chronic edema KIERSTEN DAVIES September 16, 2016 22:09
--- NOTE | 2016-09-17 18:00 | Progress Note ---
DATE: 09/16/2016 SUBJECTIVE: The patient is doing well. No behavioral issues. Calm, however, she was slightly irritable. MENTAL STATUS EXAMINATION: The patient is alert and oriented x3. Mood is depressed. Affect is constricted, congruent with mood. Thought process is concrete. Thought content, no suicidal or homicidal ideations. ASSESSMENT: Depression, stable. PLAN: The patient will be continued on Zoloft. Provide the patient with supportive therapy and reality orientation. We will continue to follow and readjust the medication. Oj Medel M.D. DR: KRISHAN JOB#: [id number] CC:
--- NOTE | 2016-09-17 18:45 | Discharge Summary ---
Discharge Summary Hospital Course Date of Admission September 10, 2016 at 14:48 Date of Discharge September 16, 2016 at 19:41 Admitting Diagnosis SOB HPI Angela Inman is a 76 year old female who was admitted on September 10, 2016 at 14: 48 for Shortness Of Breath Hospital Course [id number] Discharge Discharge Disposition Patient was discharged to SNF/Subacute Facility(03) Discharge Diagnoses: Teresa Canchola NP September 17, 2016 18:45
--- NOTE | 2016-09-18 00:15 | Discharge Summary 2 SIG ---
DATE OF ADMISSION: 09/10/2016 DATE OF DISCHARGE: 09/16/2016 CONSULTANTS: 1. Elena Melendez M.D. 2. Eitan Stark M.D. 3. Oj Medel M.D. 4. Yokasta Torres M.D. BRIEF HOSPITAL COURSE: The patient is a 76-year-old female, who was recently admitted to the hospital secondary to sepsis from urinary tract infection. [facility] secondary to cough and wheezing. Per prison report, the patient had low-grade fever and was transferred to [facility] for further evaluation. She has a past medical history significant for COPD, diabetes mellitus, hypertension, obstructive sleep apnea, GERD, hypercholesterolemia, cardiomyopathy, diabetic nephropathy, and nonalcoholic steatohepatitis. On evaluation at ED, chest x-ray showed no acute disease. On evaluation at ED, the patient was given nebulizer treatments and Solu-Medrol. EKG showed normal sinus rhythm and chest x-ray showed no acute disease. The patient with exacerbation of COPD, cannot rule out pneumonia. She was started empirically on antibiotics and was pancultured. A central line was placed through the right femoral vein for intravenous access. She was followed up by Dr. Melendez and was continued on her breathing treatment and methylprednisolone intravenous. She was also seen by Dr. Stark for infectious disease and management of probable healthcare associated pneumonia. Urine culture showed growth of some E. coli. She was given initially vancomycin and cefepime and later on was switched to meropenem. At the time of discharge, antibiotic was switched to Invanz and continued for five more days. Dr. Torres was also consulted. Previous abdominal ultrasound done from recent hospitalization, revealed cirrhosis with no mass. She had an elevated home CEA. Family to do extensive workup or just repeat CEA in 4 to 6 weeks. Doctor was advised to contact Gastrointestinal regarding decision. Her blood sugar has been monitored and was given NovoLog sliding scale and Starlix 90 mg was also continued. Dr. Medel was consulted. The patient was diagnosed with major depressive disorder and had been on Zoloft. When the patient is not taking Zoloft, her depression symptoms returned. She was advised to continue medications. Solu-Medrol was tapered. The patient was eventually discharged back to SNF to continue antibiotic treatment. FINAL DIAGNOSES: 1. Probable healthcare associated pneumonia. 2. Recurrent urinary tract infection with E. coli. 3. Chronic kidney disease, stage 3. 4. Hypercalcemia. 5. Diabetes mellitus, type 2. 6. Obstructive sleep apnea. 7. DURANT. 8. Cirrhosis. 9. Acute chronic obstructive pulmonary disease exacerbation. 10. Obesity. 11. Acute on chronic renal failure. 12. Cardiomegaly. 13. Hypertension. 14. Urinary tract infection with multidrug-resistant E. coli. Jed Guthrie M.D. I have been assigned to dictate discharge summary on this account and I was not involved in the patient's management. Teresa Canchola N.P. DR: Wero JOB#: [id number] CC:
== END 2016-09-16 19:41 | DRG 190 ==
LOC: EDBD 14:13 → EMR 14:46 → 2E 14:48 → EDBEDREQ 16:36 → 4W 09-12 00:03
DX: J44.1 Chronic obstructive pulmonary disease with (acute) exacerbation (principal); J18.9 Pneumonia, unspecified organism; N17.9 Acute kidney failure, unspecified; A41.9 Sepsis, unspecified organism; N18.3 Chronic kidney disease, stage 3 (moderate); I42.9 Cardiomyopathy, unspecified; E11.21 Type 2 diabetes mellitus with diabetic nephropathy; Z68.41 Body mass index [BMI] 40.0-44.9, adult; N39.0 Urinary tract infection, site not specified; K74.60 Unspecified cirrhosis of liver; I50.9 Heart failure, unspecified; B96.20 Unspecified Escherichia coli [E. coli] as the cause of diseases classified elsewhere; Z79.4 Long term (current) use of insulin; F32.9 Major depressive disorder, single episode, unspecified; I12.9 Hypertensive chronic kidney disease with stage 1 through stage 4 chronic kidney disease, or unspecified chronic kidney disease; G47.33 Obstructive sleep apnea (adult) (pediatric); K21.9 Gastro-esophageal reflux disease without esophagitis; E78.00 Pure hypercholesterolemia, unspecified; Z88.0 Allergy status to penicillin; Z79.02 Long term (current) use of antithrombotics/antiplatelets; E11.319 Type 2 diabetes mellitus with unspecified diabetic retinopathy without macular edema; F41.9 Anxiety disorder, unspecified; L89.90 Pressure ulcer of unspecified site, unspecified stage; Z22.322 Carrier or suspected carrier of Methicillin resistant Staphylococcus aureus; E66.9 Obesity, unspecified; Z16.24 Resistance to multiple antibiotics; K75.81 Nonalcoholic steatohepatitis (NASH); R97.0 Elevated carcinoembryonic antigen [CEA]
CPT/HCPCS: 36415; 71010; 74177; 80048; 80053; 81003; 82105; 82378; 82550; 82553; 82607; 82746; 82962; 83540; 83550; 83605; 83615; 83880; 84484; 85007; 85025; 85044; 85060; 85610; 85651; 85730; 87040; 87086; 87181; 93005; 94640; 94664; 94760; J1815; J7620; S0077

== ENCOUNTER 2016-12-24 09:01 | Inpatient (IN) | payer MEDICARE, MEDICAID ==
[~2016-12-24] VITALS: Ht 165.1 cm; Wt 106.1 kg
[2016-12-24] VITALS (7 sets, daily range): BP systolic 118–136; BP diastolic 48–101
[~2016-12-24 09:01] MED LIST changes: +CLOBETASOL EMOL15 GM TP; +DUONEB 0.5-3(2.53 ML HHN; +INVANZ1 G1 IM; +MAG6464 MG PO; +MULTIVITAMINS1 EAC2 ORAL; +OMEPRAZOLE10 M1 ORAL; +OMEPRAZOLE40 M1 ORAL; +TEMAZEPAM30 MG ORAL; +VITAMIN C250 MG ORAL; +ZANTAC150 MG ORAL
--- NOTE | 2016-12-24 10:11 | Diagnostic Imaging Report ---
Indication: SOB Technique: One view of the chest Comparison: 09/12/2016 Findings: The heart is borderline enlarged. Lungs and pleural spaces are clear. The aorta is tortuous. No significant change Impression: Cardiomegaly. No acute process
[2016-12-24 10:33] LABS: APPEARANCE,URINE CLOUDY; KETONES,URINE NEGATIVE (NEGATIVE); LEUKOCYTE ESTERASE ,URINE 3+ (NEGATIVE); NITRITE,URINE NEGATIVE (NEGATIVE); PH,URINE 6.5 (4.5-8.0); PROTEIN,URINE 2+ (NEGATIVE); UROBILINOGEN,URINE NORMAL MG/DL (0.0-1.0)
[2016-12-24 10:43] LABS: BACTERIA,URINE MANY /HPF; SQUAMOUS EPITHELIAL CELL,UR OCCASIONAL /LPF (NONE/OCC); WBC,URINE 20-30 /HPF (0 - 2)
[2016-12-24 11:09] LABS: MEAN CORPUSCULAR VOLUME 100 FL (80-99); MEAN PLATELET VOLUME 7.5 FL (6.5-10.1); PLATELET COUNT 116 K/UL (150-450); RED BLOOD COUNT 2.53 M/UL (4.20-5.40); RED CELL DISTRIBUTION WIDTH 15.3 % (11.6-14.8); WHITE BLOOD COUNT 7.2 K/UL (4.8-10.8)
[2016-12-24 11:33] LABS: ALANINE AMINOTRANSFERASE 12 U/L (3-33); ALBUMIN/GLOBULIN RATIO 0.6 (1.0-2.7); ANION GAP 12 (5-15); ASPARTATE AMINO TRANSFERASE 39 U/L (5-40); CALCIUM 9.3 mg/dL (8.6-10.2); CARBON DIOXIDE 17 mEQ/L (20-30); CHLORIDE 110 mEQ/L (98-107); CREATININE 1.3 mg/dL (0.5-0.9); HEMOLYSIS 2; POTASSIUM 4.4 mEQ/L (3.4-4.9); SODIUM 139 mEQ/L (135-145); TOTAL PROTEIN 6.2 g/dL (6.6-8.7)
[2016-12-24 11:52] LABS: TROPONIN I < 0.30 ng/mL (<=0.30)
[2016-12-24 12:29] LABS: ANISOCYTOSIS 2+; BAND NEUTROPHILS % (MANUAL) 2 % (0-8); BASOPHILS % (MANUAL) 0 % (0-2); EOSINOPHILS % (MANUAL) 7 % (0-3); HYPOCHROMASIA 2+; LYMPHOCYTES % (MANUAL) 28 % (20-45); MACROCYTES 1+; NEUTROPHILS % (MANUAL) 56 % (45-75); PLATELET ESTIMATE DECREASED; PLATELET MORPHOLOGY NORMAL; TOTAL CELLS COUNTED 100
[2016-12-24 13:00] LABS: CKMB 3.9 ng/mL (< 3.8)
[2016-12-24] MEDS ORDERED: FAMOTIDINE40 MG ORAL (13:31)
--- NOTE | 2016-12-24 13:41 | Emergency Room Report ---
History of Present Illness General Chief Complaint: Altered Level of Consciousness Source: Patient, Medical Record Present Illness HPI Patient is 76-year-old female presents for increased altered level consciousness. The patient was sent from custodial. Patient prior history of encephalopathy. She was noted be diabetic. Patient noted be increasingly confused. Patient had previous hospitalizations after of confusion. Patient was noted to have adequate blood sugar. Allergies: Coded Allergies: PENICILLINS (Unverified Allergy, Unknown, 03/22/15) Uncoded Allergies: PNC (Allergy, Unknown, 12/24/16) Patient History Past Medical History: see triage record Reviewed Nursing Documentation: PMH: Agreed, PSxH: Agreed Nursing Documentation-PMH Past Medical History: No History, Except For Hx Cardiac Problems: Yes Hx Hypertension: Yes Hx Pacemaker: No Hx Asthma: No Hx COPD: Yes Hx Diabetes: Yes Hx Cancer: No Hx Gastrointestinal Problems: No Hx Neurological Problems: No Hx Cerebrovascular Accident: No Hx Seizures: No Review of Systems All Other Systems: limited Physical Exam Vital Signs Date Time Temp Pulse Resp B/P (MAP) Pulse Ox O2 Delivery O2 Flow Rate FiO2 12/24/16 08:53 98.2 92 20 136/61 99 Room Air Sp02 EP Interpretation: reviewed, normal General Appearance: normal inspection, well appearing, no apparent distress, alert, GCS 15 Head: atraumatic ENT: normal ENT inspection, hearing grossly normal, normal voice Neck: normal inspection, full range of motion, supple, no bony tend Respiratory: normal inspection, lungs clear, normal breath sounds, no respiratory distress, no retraction, no wheezing Cardiovascular #1: regular rate, rhythm, no edema Gastrointestinal: normal inspection, normal bowel sounds, non tender, soft, no guarding, no hernia Genitourinary: no CVA tenderness Musculoskeletal: normal inspection, back normal, normal range of motion Neurologic: normal inspection, alert, responsive, 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, speech normal Psychiatric: normal inspection, judgement/insight normal, mood/affect normal Skin: normal inspection, other - rash to neck c/w intertrigo Medical Decision Making Diagnostic Impression: Primary Impression: DM (diabetes mellitus) Additional Impressions: Encephalopathy acute UTI (urinary tract infection) ER Course Patient was noted to have altered mental status.Differential diagnosis included but was not limited to ischemic stroke, subarachnoid hemorrhage, hypoglycemia, encephalopathy , spinal cord injury, neurodegenerative disorder, urinary tract infection, hypoxemia.Because of complexity of patient's case laboratory testing and imaging studies were ordered. The patient noted to have history encephalopathy as well as diabetes. Patient was also previously noted to have multidrug-resistant urinary tract infections. Patient was given IV antibiotics as well as IV fluids. She was given lactulose. Dr. Rl Tee was contacted for inpatient management Labs Test 12/24/16 10:10 12/24/16 10:55 Urine Color Yellow Urine Appearance Cloudy Urine pH 6.5 (4.5-8.0) Urine Specific [place] 1.015 (1.005-1.035) Urine Protein 2+ (NEGATIVE) Urine Glucose (UA) Negative (NEGATIVE) Urine Ketones Negative (NEGATIVE) Urine Occult Blood 3+ (NEGATIVE) Urine Nitrite Negative (NEGATIVE) Urine Bilirubin Negative (NEGATIVE) Urine Urobilinogen Normal MG/DL (0.0-1.0) Urine Leukocyte Esterase 3+ (NEGATIVE) Urine RBC 5-10 /HPF (0 - 2) Urine WBC 20-30 /HPF (0 - 2) Urine Squamous Epithelial Cells Occasional /LPF Urine Bacteria Many /HPF (NONE) White Blood Count 7.2 K/UL (4.8-10.8) Red Blood Count 2.53 M/UL (4.20-5.40) Hemoglobin 7.8 G/DL (12.0-16.0) Hematocrit 25.3 % (37.0-47.0) Mean Corpuscular Volume 100 FL (80-99) Mean Corpuscular Hemoglobin 31.0 PG (27.0-31.0) Mean Corpuscular Hemoglobin Concent 31.0 G/DL (32.0-36.0) Red Cell Distribution Width 15.3 % (11.6-14.8) Platelet Count 116 K/UL (150-450) Mean Platelet Volume 7.5 FL (6.5-10.1) Neutrophils (%) (Auto) % (45.0-75.0) Lymphocytes (%) (Auto) % (20.0-45.0) Monocytes (%) (Auto) % (1.0-10.0) Eosinophils (%) (Auto) % (0.0-3.0) Basophils (%) (Auto) % (0.0-2.0) Differential Total Cells Counted 100 Neutrophils % (Manual) 56 % (45-75) Lymphocytes % (Manual) 28 % (20-45) Monocytes % (Manual) 7 % (1-10) Eosinophils % (Manual) 7 % (0-3) Basophils % (Manual) 0 % (0-2) Band Neutrophils 2 % (0-8) Platelet Estimate Decreased Platelet Morphology Normal Hypochromasia 2+ Anisocytosis 2+ Macrocytosis 1+ Sodium Level 139 mEQ/L (135-145) Potassium Level 4.4 mEQ/L (3.4-4.9) Chloride Level 110 mEQ/L (98-107) Carbon Dioxide Level 17 mEQ/L (20-30) Anion Gap 12 (5-15) Blood Urea Nitrogen 22 mg/dL (7-23) Creatinine 1.3 mg/dL (0.5-0.9) Estimat Glomerular Filtration Rate mL/min (>60) Glucose Level 205 mg/dL (74-106) Lactic Acid Level 1.30 mmol/L (0.66-2.22) Calcium Level 9.3 mg/dL (8.6-10.2) Total Bilirubin 0.8 mg/dL (0.0-1.2) Aspartate Amino Transf (AST/SGOT) 39 U/L (5-40) Alanine Aminotransferase (ALT/SGPT) 12 U/L (3-33) Alkaline Phosphatase 165 U/L (35-104) Ammonia 90 umol/L (11-51) Total Creatine Kinase 71 U/L (26-140) Creatine Kinase MB 3.9 ng/mL (< 3.8) Creatine Kinase MB Relative Index 5.4 Troponin I < 0.30 ng/mL (<=0.30) Pro-B-Type Natriuretic Peptide 1236 pg/mL (0-450) Total Protein 6.2 g/dL (6.6-8.7) Albumin 2.5 g/dL (3.5-5.2) Globulin 3.7 g/dL Albumin/Globulin Ratio 0.6 (1.0-2.7) EKG Diagnostic Results Rate: normal Rhythm: NSR - 90 ST Segments: no acute changes Chest X-Ray Diagnostic Results Chest X-Ray Diagnostic Results : Chest X-Ray Ordered: Yes # of Views/Limited/Complete: 1 View Indication: Other - generalized weakness EP Interpretation: No Interpretation: no consolidation, no effusion, no pneumothorax, other - cardiomegaly Impression: No acute disease Last Vital Signs Date Time Temp Pulse Resp B/P (MAP) Pulse Ox O2 Delivery O2 Flow Rate FiO2 12/24/16 11:19 96 20 118/48 99 Room Air 12/24/16 09:12 98.2 Status: unchanged Disposition: ADMITTED INPATIENT Condition: Stable Referrals: Rl Tee MD (PCP) Anish García Dec 24, 2016 13:39
[2016-12-24] MEDS ORDERED: Nitroglycerin Subl 0.4mg tab (Bottle Of 25) SL PRN (15:00)
[2016-12-24] MEDS ORDERED: DuoNeb 0.5-3(2.5)mg/3ml neb HHN PRN (15:00)
[2016-12-24] MEDS ORDERED: Miralax 17gm pkt ORAL PRN (15:00)
--- NOTE | 2016-12-24 15:18 | Consultation ---
History of Present Illness General Date patient seen: Dec 24, 2016 Chief Complaint: Altered Level of Consciousness Present Illness HPI 76-year-old female with hx of DM, cirrhosis, COPD, Obesity, shelter resident presented to ER with CC of altered level consciousness She was noted to have severe anemia and admitted to telemetry for possible GI Bleeding. Allergies: Coded Allergies: PENICILLINS (Unverified Allergy, Unknown, 03/22/15) Medication History Scheduled Ascorbic Acid* (Vitamin C*), Unknown Dose ORAL DAILY, (Reported) Atorvastatin Calcium* (Atorvastatin Calcium*), 20 MG ORAL BEDTIME, (Reported) Clobetasol Propionate/Emoll (Clobetasol Emollient 0.05% Crm), 15 GM TP Q12HR, ( Reported) Clopidogrel Bisulfate* (Plavix*), 75 MG ORAL DAILY, (Reported) Cranberry Fruit Concentrate (Cranberry), 450 MG PO DAILY, (Reported) Docusate Sodium* (Docusate Sodium*), 100 MG ORAL BID, (Reported) Ertapenem (Invanz), 1 GM IM DAILY Famotidine (Famotidine), 40 MG ORAL EVERY 12 HOURS, (Reported) Ferrous Sulfate (Ferrous Sulfate), 325 MG PO BID, (Reported) Gabapentin* (Gabapentin*), 300 MG ORAL THREE TIMES A DAY, (Reported) Insulin Detemir (Levemir), 0 SUBQ BEDTIME, (Reported) Lactulose (Lactulose*), 30 ML ORAL THREE TIMES A DAY, (Reported) Losartan Potassium* (Losartan Potassium*), 12.5 MG ORAL DAILY, (Reported) Magnesium Chloride (Mag64), 64 MG PO DAILY, (Reported) Metoclopramide Hcl* (Reglan*), 5 MG ORAL BID, (Reported) Metoprolol Tartrate* (Metoprolol Tartrate*), 25 MG ORAL EVERY 12 HOURS, ( Reported) Multivitamins* (Multivitamins*), 1 TAB ORAL DAILY, (Reported) Nateglinide* (Starlix*), 60 MG ORAL BEFORE MEALS, (Reported) Omeprazole (Omeprazole), 40 MG ORAL DAILY, (Reported) Polyethylene Glycol 3350* (Miralax*), 17 GM ORAL DAILY, (Reported) Ranitidine Hcl* (Zantac*), 150 MG ORAL DAILY, (Reported) Sertraline Hcl* (Sertraline Hcl*), 50 MG ORAL DAILY, (Reported) Temazepam (Restoril*), 15 MG ORAL BEDTIME, (Reported) Scheduled PRN Acetaminophen (Acetaminophen), 650 MG ORAL Q4HR PRN for Prn Headache/Temp > 101, (Reported) Diphenhydramine Hcl* (Benadryl*), 25 MG ORAL EVERY 8 HOURS PRN for Itching, ( Reported) Hydrocodone/Acetaminophen (Hydrocodon-Acetaminophn 10-325), 1 TAB ORAL Q6H PRN for For Pain, (Reported) Ipratropium/Albuterol Sulfate (DuoNeb 0.5-3(2.5)mg/3ml), 3 ML HHN Q4HR PRN for Shortness of Breath, (Reported) Simethicone* (Simethicone*), 160 MG ORAL Q8H PRN for Abdominal cramps, (Reported ) Temazepam* (Temazepam*), 30 MG ORAL BEDTIME PRN for Insomnia, (Reported) Miscellaneous Medications Insulin Aspart* (Novolog*), 0 SUBQ, (Reported) Nitroglycerin (Nitroglycerin), 0.4 MG SL, (Reported) Patient History Healthcare decision maker Resuscitation status Advanced Directive on File Past Medical/Surgical History Past Medical/Surgical History: (1) COPD (chronic obstructive pulmonary disease) with emphysema (2) Elevated CEA (3) Hypertension (4) Cirrhosis (5) Diabetes mellitus Review of Systems All Other Systems: negative except mentioned in HPI Physical Exam General Appearance: WD/WN Lines, tubes and drains: peripheral HEENT: normocephalic, anicteric Neck: non-tender, normal alignment Respiratory/Chest: chest wall non-tender, lungs clear Cardiovascular/Chest: normal peripheral pulses, normal rate Abdomen: normal bowel sounds, non tender, hyperactive bowel sounds Genitourinary/Rectal: normal rectal exam Extremities: normal range of motion, non-tender 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 Lymphatic: anterior cervical Last 24 Hour Vital Signs Date Time Temp Pulse Resp B/P (MAP) Pulse Ox O2 Delivery O2 Flow Rate FiO2 12/24/16 13:20 93 20 119/65 96 Room Air 12/24/16 11:19 96 20 118/48 99 Room Air 12/24/16 09:12 98.2 94 20 136/61 99 Room Air 12/24/16 08:53 98.2 92 20 136/61 99 Room Air Intake and Output 12/24/16 12/25/16 18:59 06:59 Output Total 60 ml Balance -60 ml Output Urine Total 60 ml Laboratory Tests Test 12/24/16 10:10 12/24/16 10:55 Urine Color Yellow Urine Appearance Cloudy Urine pH 6.5 (4.5-8.0) Urine Specific [place] 1.015 (1.005-1.035) Urine Protein 2+ (NEGATIVE) H Urine Glucose (UA) Negative (NEGATIVE) Urine Ketones Negative (NEGATIVE) Urine Occult Blood 3+ (NEGATIVE) H Urine Nitrite Negative (NEGATIVE) Urine Bilirubin Negative (NEGATIVE) Urine Urobilinogen Normal MG/DL (0.0-1.0) Urine Leukocyte Esterase 3+ (NEGATIVE) H Urine RBC 5-10 /HPF (0 - 2) H Urine WBC 20-30 /HPF (0 - 2) H Urine Squamous Epithelial Cells Occasional /LPF Urine Bacteria Many /HPF (NONE) H White Blood Count 7.2 K/UL (4.8-10.8) Red Blood Count 2.53 M/UL (4.20-5.40) L Hemoglobin 7.8 G/DL (12.0-16.0) L Hematocrit 25.3 % (37.0-47.0) L Mean Corpuscular Volume 100 FL (80-99) H Mean Corpuscular Hemoglobin 31.0 PG (27.0-31.0) Mean Corpuscular Hemoglobin Concent 31.0 G/DL (32.0-36.0) L Red Cell Distribution Width 15.3 % (11.6-14.8) H Platelet Count 116 K/UL (150-450) L Mean Platelet Volume 7.5 FL (6.5-10.1) Neutrophils (%) (Auto) % (45.0-75.0) Lymphocytes (%) (Auto) % (20.0-45.0) Monocytes (%) (Auto) % (1.0-10.0) Eosinophils (%) (Auto) % (0.0-3.0) Basophils (%) (Auto) % (0.0-2.0) Differential Total Cells Counted 100 Neutrophils % (Manual) 56 % (45-75) Lymphocytes % (Manual) 28 % (20-45) Monocytes % (Manual) 7 % (1-10) Eosinophils % (Manual) 7 % (0-3) H Basophils % (Manual) 0 % (0-2) Band Neutrophils 2 % (0-8) Platelet Estimate Decreased L Platelet Morphology Normal Hypochromasia 2+ Anisocytosis 2+ Macrocytosis 1+ Prothrombin Time Pending Prothromb Time International Ratio Pending Activated Partial Thromboplast Time Pending Sodium Level 139 mEQ/L (135-145) Potassium Level 4.4 mEQ/L (3.4-4.9) Chloride Level 110 mEQ/L (98-107) H Carbon Dioxide Level 17 mEQ/L (20-30) L Anion Gap 12 (5-15) Blood Urea Nitrogen 22 mg/dL (7-23) Creatinine 1.3 mg/dL (0.5-0.9) H Estimat Glomerular Filtration Rate mL/min (>60) Glucose Level 205 mg/dL (74-106) H Lactic Acid Level 1.30 mmol/L (0.66-2.22) Calcium Level 9.3 mg/dL (8.6-10.2) Total Bilirubin 0.8 mg/dL (0.0-1.2) Aspartate Amino Transf (AST/SGOT) 39 U/L (5-40) Alanine Aminotransferase (ALT/SGPT) 12 U/L (3-33) Alkaline Phosphatase 165 U/L (35-104) H Ammonia 90 umol/L (11-51) H Total Creatine Kinase 71 U/L (26-140) Creatine Kinase MB 3.9 ng/mL (< 3.8) H Creatine Kinase MB Relative Index 5.4 Troponin I < 0.30 ng/mL (<=0.30) Pro-B-Type Natriuretic Peptide 1236 pg/mL (0-450) H Total Protein 6.2 g/dL (6.6-8.7) L Albumin 2.5 g/dL (3.5-5.2) L Globulin 3.7 g/dL Albumin/Globulin Ratio 0.6 (1.0-2.7) L Height (Feet): 5 Height (Inches): 5.00 Weight (Pounds): 234 Medications Current Medications Medications (Trade) Dose Ordered Sig/Pavel Route PRN Reason Start Time Stop Time Status Last Admin Dose Admin Acetaminophen (Tylenol) 650 mg Q4H PRN ORAL fever 12/24/16 15:00 01/23/17 14:59 Albuterol/ Ipratropium (DuoNeb 0.5-3(2.5)mg/3ml) 3 ml Q4H PRN HHN Shortness of Breath 12/24/16 15:00 12/29/16 14:59 Dextrose (Dextrose 50%) STAT PRN IV Hypoglycemia 12/24/16 15:00 01/23/17 14:59 Heparin Sodium (Porcine) (Heparin 5000 units/ml) 5,000 units EVERY 12 HOURS SUBQ 12/24/16 21:00 01/23/17 20:59 UNV Insulin Aspart (NovoLOG) BEFORE MEALS AND HS SUBQ 12/24/16 16:30 01/23/17 16:29 Morphine Sulfate (Morphine Sulfate) 2 mg EVERY 4 HOURS PRN IVP Moderate Pain (Pain Scale 4-6) 12/24/16 15:00 12/31/16 14:59 UNV Nitroglycerin (Ntg) 0.4 mg Every 5 Minutes PRN SL Prn Chest Pain 12/24/16 15:00 01/23/17 14:59 Ondansetron HCl (Zofran) 4 mg Q6H PRN IVP Nausea & Vomiting 12/24/16 15:00 01/23/17 14:59 Polyethylene Glycol (Miralax) 17 gm DAILYPRN PRN ORAL Constipation 12/24/16 15:00 01/23/17 14:59 Sodium Chloride 1,000 ml @ 75 mls/hr [id number] IV 12/24/16 15:30 01/23/17 15:29 Temazepam (Restoril) 15 mg HSPRN PRN ORAL Insomnia 12/24/16 15:00 12/31/16 14:59 Vancomycin HCl 1 gm/Dextrose 275 ml @ 183.3 mls/ hr Q24H IV 12/25/16 00:30 12/30/16 00:29 UNV Assessment/Plan Problem List: (1) Altered level of consciousness ICD Codes: R40.4 - Transient alteration of awareness SNOMED: 9207431 (2) Generalized weakness ICD Codes: R53.1 - Weakness SNOMED: 97749121 (3) DM (diabetes mellitus) ICD Codes: E11.9 - Type 2 diabetes mellitus without complications SNOMED: 12483369 (4) Cirrhosis ICD Codes: K74.60 - Unspecified cirrhosis of liver SNOMED: 87346047 (5) Sleep apnea, obstructive ICD Codes: G47.33 - Obstructive sleep apnea (adult) (pediatric) SNOMED: 99243702 (6) Anemia ICD Codes: D64.9 - Anemia, unspecified SNOMED: 603158892 Assessment/Plan npo GI evaluation anemia w/u dvt prophylaxis IV fluids prbc prn DIONI TRIANA Dec 24, 2016 15:18
[2016-12-24 15:41] LABS: INR 1.2 (0.9-1.1); PROTHROMBIN TIME 12.4 SEC (9.30-11.50)
[2016-12-24 15:55] LABS: PATH BLOOD SMEAR/OMC SENT TO PATHOLOGIST
[2016-12-24] MEDS: NovoLOG Insulin Flexpen SUBQ SCH ×2 (16:30→21:18)
[2016-12-24 17:27] LABS: RETICULOCYTE COUNT 3.8 % (0.0-2.0)
--- NOTE | 2016-12-24 17:40 | Consultation ---
History of Present Illness General Chief Complaint: Altered Level of Consciousness Present Illness HPI 76 yo female with hx of mdd. I'm her outpatient psychiatrist. the pt was confused and not at he baseline. the pt is lucid and oriented at baseline. her depressive sxs were stable on zoloft. poor memory Allergies: Coded Allergies: PENICILLINS (Unverified Allergy, Unknown, 03/22/15) Medication History Scheduled Ascorbic Acid* (Vitamin C*), Unknown Dose ORAL DAILY, (Reported) Atorvastatin Calcium* (Atorvastatin Calcium*), 20 MG ORAL BEDTIME, (Reported) Clobetasol Propionate/Emoll (Clobetasol Emollient 0.05% Crm), 15 GM TP Q12HR, ( Reported) Clopidogrel Bisulfate* (Plavix*), 75 MG ORAL DAILY, (Reported) Cranberry Fruit Concentrate (Cranberry), 450 MG PO DAILY, (Reported) Docusate Sodium* (Docusate Sodium*), 100 MG ORAL BID, (Reported) Ertapenem (Invanz), 1 GM IM DAILY Famotidine (Famotidine), 40 MG ORAL EVERY 12 HOURS, (Reported) Ferrous Sulfate (Ferrous Sulfate), 325 MG PO BID, (Reported) Gabapentin* (Gabapentin*), 300 MG ORAL THREE TIMES A DAY, (Reported) Insulin Detemir (Levemir), 0 SUBQ BEDTIME, (Reported) Lactulose (Lactulose*), 30 ML ORAL THREE TIMES A DAY, (Reported) Losartan Potassium* (Losartan Potassium*), 12.5 MG ORAL DAILY, (Reported) Magnesium Chloride (Mag64), 64 MG PO DAILY, (Reported) Metoclopramide Hcl* (Reglan*), 5 MG ORAL BID, (Reported) Metoprolol Tartrate* (Metoprolol Tartrate*), 25 MG ORAL EVERY 12 HOURS, ( Reported) Multivitamins* (Multivitamins*), 1 TAB ORAL DAILY, (Reported) Nateglinide* (Starlix*), 60 MG ORAL BEFORE MEALS, (Reported) Omeprazole (Omeprazole), 40 MG ORAL DAILY, (Reported) Polyethylene Glycol 3350* (Miralax*), 17 GM ORAL DAILY, (Reported) Ranitidine Hcl* (Zantac*), 150 MG ORAL DAILY, (Reported) Sertraline Hcl* (Sertraline Hcl*), 50 MG ORAL DAILY, (Reported) Temazepam (Restoril*), 15 MG ORAL BEDTIME, (Reported) Scheduled PRN Acetaminophen (Acetaminophen), 650 MG ORAL Q4HR PRN for Prn Headache/Temp > 101, (Reported) Diphenhydramine Hcl* (Benadryl*), 25 MG ORAL EVERY 8 HOURS PRN for Itching, ( Reported) Hydrocodone/Acetaminophen (Hydrocodon-Acetaminophn 10-325), 1 TAB ORAL Q6H PRN for For Pain, (Reported) Ipratropium/Albuterol Sulfate (DuoNeb 0.5-3(2.5)mg/3ml), 3 ML HHN Q4HR PRN for Shortness of Breath, (Reported) Simethicone* (Simethicone*), 160 MG ORAL Q8H PRN for Abdominal cramps, (Reported ) Temazepam* (Temazepam*), 30 MG ORAL BEDTIME PRN for Insomnia, (Reported) Miscellaneous Medications Insulin Aspart* (Novolog*), 0 SUBQ, (Reported) Nitroglycerin (Nitroglycerin), 0.4 MG SL, (Reported) Patient History Limited by: medical condition History Provided By: Patient, Significant Other, Medical Record, PMD Healthcare decision maker Resuscitation status Advanced Directive on File Past Medical/Surgical History Past Medical/Surgical History: (1) Anemia (2) Hypercholesteremia (3) Elevated liver enzymes (4) Acute respiratory failure (5) Dehydration (6) Hypokalemia (7) Hypomagnesemia (8) Hypercalcemia (9) Gastrointestinal hemorrhage (10) Ascites (11) Generalized weakness (12) Cholecystitis (13) Dysphagia (14) Respiratory distress (15) Hyperbilirubinemia (16) Hypernatremia (17) Hyponatremia (18) Pancreatitis (19) Tachycardia (20) Altered mental status (21) Fall (22) GI bleed (23) Acidosis, metabolic (24) Altered level of consciousness (25) Elevated liver function tests (26) Uncontrolled diabetes mellitus (27) Peripheral autonomic neuropathy due to diabetes mellitus (28) Severe sepsis (29) Elevated CEA (30) ESBL (extended spectrum beta-lactamase) producing bacteria infection (31) MRSA pneumonia (32) RAMYA (acute kidney injury) (33) Abdominal wall cellulitis (34) Infection due to ESBL-producing Escherichia coli (35) Urinary tract infection due to ESBL Klebsiella (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 (37) G-tube site cellulitis (38) GERD (gastroesophageal reflux disease) (39) Diabetic nephropathy (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 (41) Fever (42) Diabetes mellitus (43) Cellulitis (44) Pruritic dermatitis (45) Hyperkalemia (46) Cardiomegaly (47) CHF (congestive heart failure) (48) Hypertension (49) Sleep apnea (50) Sepsis (51) ARF (acute renal failure) (52) Cirrhosis (53) Cough (54) Renal failure (55) Wheezing (56) Obesity (57) Sleep apnea, obstructive (58) UTI (urinary tract infection) (59) DM (diabetes mellitus) (60) Encephalopathy acute Review of Systems Psychiatric: Reports: prior hx, anxiety, depressed feelings Physical Exam General Appearance: confused, mild distress, overweight Neurologic: disoriented, depressed affect Last 24 Hour Vital Signs Date Time Temp Pulse Resp B/P (MAP) Pulse Ox O2 Delivery O2 Flow Rate FiO2 12/24/16 16:54 97.2 82 18 127/67 98 Room Air 12/24/16 15:59 98.2 83 20 118/101 100 Room Air 12/24/16 15:20 83 20 118/101 100 Room Air 12/24/16 13:20 93 20 119/65 96 Room Air 12/24/16 11:19 96 20 118/48 99 Room Air 12/24/16 09:12 98.2 94 20 136/61 99 Room Air 12/24/16 08:53 98.2 92 20 136/61 99 Room Air Intake and Output 12/24/16 12/25/16 19:00 07:00 Intake Total 100 ml Output Total 60 ml Balance 40 ml Intake Oral 0 ml IV Total 100 ml Output Urine Total 60 ml # Bowel Movements 1 Laboratory Tests Test 12/24/16 10:10 12/24/16 10:55 Urine Color Yellow Urine Appearance Cloudy Urine pH 6.5 (4.5-8.0) Urine Specific [place] 1.015 (1.005-1.035) Urine Protein 2+ (NEGATIVE) H Urine Glucose (UA) Negative (NEGATIVE) Urine Ketones Negative (NEGATIVE) Urine Occult Blood 3+ (NEGATIVE) H Urine Nitrite Negative (NEGATIVE) Urine Bilirubin Negative (NEGATIVE) Urine Urobilinogen Normal MG/DL (0.0-1.0) Urine Leukocyte Esterase 3+ (NEGATIVE) H Urine RBC 5-10 /HPF (0 - 2) H Urine WBC 20-30 /HPF (0 - 2) H Urine Squamous Epithelial Cells Occasional /LPF Urine Bacteria Many /HPF (NONE) H White Blood Count 7.2 K/UL (4.8-10.8) Red Blood Count 2.53 M/UL (4.20-5.40) L Hemoglobin 7.8 G/DL (12.0-16.0) L Hematocrit 25.3 % (37.0-47.0) L Mean Corpuscular Volume 100 FL (80-99) H Mean Corpuscular Hemoglobin 31.0 PG (27.0-31.0) Mean Corpuscular Hemoglobin Concent 31.0 G/DL (32.0-36.0) L Red Cell Distribution Width 15.3 % (11.6-14.8) H Platelet Count 116 K/UL (150-450) L Mean Platelet Volume 7.5 FL (6.5-10.1) Neutrophils (%) (Auto) % (45.0-75.0) Lymphocytes (%) (Auto) % (20.0-45.0) Monocytes (%) (Auto) % (1.0-10.0) Eosinophils (%) (Auto) % (0.0-3.0) Basophils (%) (Auto) % (0.0-2.0) Differential Total Cells Counted 100 Neutrophils % (Manual) 56 % (45-75) Lymphocytes % (Manual) 28 % (20-45) Monocytes % (Manual) 7 % (1-10) Eosinophils % (Manual) 7 % (0-3) H Basophils % (Manual) 0 % (0-2) Band Neutrophils 2 % (0-8) Platelet Estimate Decreased L Platelet Morphology Normal Hypochromasia 2+ Anisocytosis 2+ Macrocytosis 1+ Erythrocyte Sedimentation Rate 83 MM/HR (0-30) H Reticulocyte Count 3.8 % (0.0-2.0) H Prothrombin Time 12.4 SEC (9.30-11.50) H Prothromb Time International Ratio 1.2 (0.9-1.1) H Activated Partial Thromboplast Time 28 SEC (23-33) Sodium Level 139 mEQ/L (135-145) Potassium Level 4.4 mEQ/L (3.4-4.9) Chloride Level 110 mEQ/L (98-107) H Carbon Dioxide Level 17 mEQ/L (20-30) L Anion Gap 12 (5-15) Blood Urea Nitrogen 22 mg/dL (7-23) Creatinine 1.3 mg/dL (0.5-0.9) H Estimat Glomerular Filtration Rate mL/min (>60) Glucose Level 205 mg/dL (74-106) H Lactic Acid Level 1.30 mmol/L (0.66-2.22) Calcium Level 9.3 mg/dL (8.6-10.2) Iron Level 66 ug/dL (37-145) Total Iron Binding Capacity 246 ug/dL (250-400) L Percent Iron Saturation 27 % (15-50) Unsaturated Iron Binding 180 ug/dL (112-346) Total Bilirubin 0.8 mg/dL (0.0-1.2) Aspartate Amino Transf (AST/SGOT) 39 U/L (5-40) Alanine Aminotransferase (ALT/SGPT) 12 U/L (3-33) Alkaline Phosphatase 165 U/L (35-104) H Ammonia 90 umol/L (11-51) H Lactate Dehydrogenase 281 U/L (135-230) H Total Creatine Kinase 71 U/L (26-140) Creatine Kinase MB 3.9 ng/mL (< 3.8) H Creatine Kinase MB Relative Index 5.4 Troponin I < 0.30 ng/mL (<=0.30) Pro-B-Type Natriuretic Peptide 1236 pg/mL (0-450) H Total Protein 6.2 g/dL (6.6-8.7) L Albumin 2.5 g/dL (3.5-5.2) L Globulin 3.7 g/dL Albumin/Globulin Ratio 0.6 (1.0-2.7) L Carcinoembryonic Antigen 15.4 ng/mL H Vitamin B12 Level 1589 pg/mL (211-946) H Folate Pending Height (Feet): 5 Height (Inches): 5.00 Weight (Pounds): 234 Medications Current Medications Medications (Trade) Dose Ordered Sig/Pavel Route PRN Reason Start Time Stop Time Status Last Admin Dose Admin Acetaminophen (Tylenol) 650 mg Q4H PRN ORAL fever 9/6/17 15:00 01/23/17 14:59 Albuterol/ Ipratropium (DuoNeb 0.5-3(2.5)mg/3ml) 3 ml Q4H PRN HHN Shortness of Breath 12/24/16 15:00 12/29/16 14:59 Dextrose (Dextrose 50%) STAT PRN IV Hypoglycemia 12/24/16 15:00 01/23/17 14:59 Heparin Sodium (Porcine) (Heparin 5000 units/ml) 5,000 units EVERY 12 HOURS SUBQ 12/24/16 21:00 01/23/17 20:59 Insulin Aspart (NovoLOG) BEFORE MEALS AND HS SUBQ 12/24/16 16:30 01/23/17 16:29 Morphine Sulfate (Morphine Sulfate) 2 mg Q4H PRN IVP Moderate Pain (Pain Scale 4-6) 12/24/16 15:00 12/31/16 14:59 Nitroglycerin (Ntg) 0.4 mg Every 5 Minutes PRN SL Prn Chest Pain 12/24/16 15:00 01/23/17 14:59 Ondansetron HCl (Zofran) 4 mg Q6H PRN IVP Nausea & Vomiting 12/24/16 15:00 01/23/17 14:59 Polyethylene Glycol (Miralax) 17 gm DAILYPRN PRN ORAL Constipation 12/24/16 15:00 01/23/17 14:59 Sodium Chloride 1,000 ml @ 75 mls/hr [id number] IV 12/24/16 15:30 01/23/17 15:29 Temazepam (Restoril) 15 mg HSPRN PRN ORAL Insomnia 12/24/16 15:00 12/31/16 14:59 Vancomycin HCl (Vanco rx to dose) 1 ea DAILYPRN PRN MISC PRN RX PROTOCOL 12/24/16 16:45 01/23/17 16:44 Vancomycin HCl/ Dextrose 250 ml @ 125 mls/hr Q24H IVPB 12/24/16 18:00 12/29/16 17:59 Assessment/Plan Status: stable, not improved, unchanged Assessment/Plan MDD hx, Delirium low dose of antipsychotic dc Oj Middleton M.D. Dec 24, 2016 17:40
[2016-12-24] MEDS ORDERED: Vancomycin 1.5gm/D5W 250ml 250 ML IVPB SCH (18:00)
--- NOTE | 2016-12-24 20:50 | General Progress Note ---
Assessment/Plan Assessment/Plan GI Consult Assessment - DURANT, with cirrhosis - rising CEA - ? source (GI vs other) - d/w DTR --> requests w/u - Anemia - Functional decline Recommendations - Check CXR - Check AFP - Consider INBOUND SALES ADVISOR eval - Check CT Abd/Pelvis - EGD/Colon after above - clears - lactulose Subjective Allergies: Coded Allergies: PENICILLINS (Unverified Allergy, Unknown, 03/22/15) Objective Last 24 Hour Vital Signs Date Time Temp Pulse Resp B/P (MAP) Pulse Ox O2 Delivery O2 Flow Rate FiO2 12/24/16 20:12 97.6 85 19 135/70 99 Room Air 12/24/16 20:00 80 18 Room Air 12/24/16 16:54 97.2 82 18 127/67 98 Room Air 12/24/16 15:59 98.2 83 20 118/101 100 Room Air 12/24/16 15:20 83 20 118/101 100 Room Air 12/24/16 13:20 93 20 119/65 96 Room Air 12/24/16 11:19 96 20 118/48 99 Room Air 12/24/16 09:12 98.2 94 20 136/61 99 Room Air 12/24/16 08:53 98.2 92 20 136/61 99 Room Air Intake and Output 12/24/16 12/25/16 19:00 07:00 Intake Total 100 ml Output Total 60 ml Balance 40 ml Intake Oral 0 ml IV Total 100 ml Output Urine Total 60 ml # Bowel Movements 1 Laboratory Tests 12/24/16 10:10: Urine Color Yellow, Urine Appearance Cloudy, Urine pH 6.5, Urine Specific [place] 1.015, Urine Protein 2+H, Urine Glucose (UA) Negative, Urine Ketones Negative, Urine Occult Blood 3+H, Urine Nitrite Negative, Urine Bilirubin Negative, Urine Urobilinogen Normal, Urine Leukocyte Esterase 3+H, Urine RBC 5- 10H, Urine WBC 20-30H, Urine Squamous Epithelial Cells Occasional, Urine Bacteria ManyH 12/24/16 10:55: White Blood Count 7.2, Red Blood Count 2.53L, Hemoglobin 7.8L, Hematocrit 25.3L , Mean Corpuscular Volume 100H, Mean Corpuscular Hemoglobin 31.0, Mean Corpuscular Hemoglobin Concent 31.0L, Red Cell Distribution Width 15.3H, Platelet Count 116L, Mean Platelet Volume 7.5, Neutrophils (%) (Auto) , Lymphocytes (%) (Auto) , Monocytes (%) (Auto) , Eosinophils (%) (Auto) , Basophils (%) (Auto) , Differential Total Cells Counted 100, Neutrophils % ( Manual) 56, Lymphocytes % (Manual) 28, Monocytes % (Manual) 7, Eosinophils % ( Manual) 7H, Basophils % (Manual) 0, Band Neutrophils 2, Platelet Estimate DecreasedL, Platelet Morphology Normal, Hypochromasia 2+, Anisocytosis 2+, Macrocytosis 1+, Erythrocyte Sedimentation Rate 83H, Reticulocyte Count 3.8H, Prothrombin Time 12.4H, Prothromb Time International Ratio 1.2H, Activated Partial Thromboplast Time 28, Sodium Level 139, Potassium Level 4.4, Chloride Level 110H, Carbon Dioxide Level 17L, Anion Gap 12, Blood Urea Nitrogen 22, Creatinine 1.3H, Estimat Glomerular Filtration Rate , Glucose Level 205H, Lactic Acid Level 1.30, Calcium Level 9.3, Iron Level 66, Total Iron Binding Capacity 246L, Percent Iron Saturation 27, Unsaturated Iron Binding 180, Total Bilirubin 0.8, Aspartate Amino Transf (AST/SGOT) 39, Alanine Aminotransferase ( ALT/SGPT) 12, Alkaline Phosphatase 165H, Ammonia 90H, Lactate Dehydrogenase 281H , Total Creatine Kinase 71, Creatine Kinase MB 3.9H, Creatine Kinase MB Relative Index 5.4, Troponin I < 0.30, Pro-B-Type Natriuretic Peptide 1236H, Total Protein 6.2L, Albumin 2.5L, Globulin 3.7, Albumin/Globulin Ratio 0.6L, Carcinoembryonic Antigen 15.4H, Vitamin B12 Level 1589H, Folate [Pending] Height (Feet): 5 Height (Inches): 5.00 Weight (Pounds): 234 KIERSTEN DAVIES Dec 24, 2016 20:50
[2016-12-24] MEDS ORDERED: Lactulose 20gm/30ml UDC ORAL ONE (21:00)
[2016-12-24] MEDS: Heparin 5000 units/ml inj SUBQ SCH (21:17)
[2016-12-25] MEDS ORDERED: Vancomycin 1 GM in D5W 275 ML IV SCH (00:30)
[2016-12-25 00:31] VITALS: BP 128/67
[2016-12-25 04:00] VITALS: BP 132/72
[2016-12-25] MEDS: Heparin 5000 units/ml inj SUBQ SCH ×2 (05:42→22:16)
[2016-12-25] MEDS ORDERED: Lidocaine 1% Plain 30 ml INJ ONE (06:00)
[2016-12-25] MEDS ORDERED: Heparin 2000 units/Ns 1000ml INJ ONE (06:00)
[2016-12-25] MEDS: NovoLOG Insulin Flexpen SUBQ SCH ×4 (06:30→22:14)
[2016-12-25 08:00] VITALS: BP 130/62
[2016-12-25] MEDS: Lactulose 20gm/30ml UDC ORAL SCH ×3 (08:07→18:53)
[2016-12-25] MEDS: Dyna-Hex 2% Top Sol 8oz TOPIC SCH (08:08)
--- NOTE | 2016-12-25 09:16 | General Progress Note ---
Assessment/Plan Assessment/Plan Assessment - DURANT, with cirrhosis - rising CEA - ? 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 - Check CT Abd/Pelvis - EGD/Colon after above - clears - lactulose Subjective Allergies: Coded Allergies: PENICILLINS (Unverified Allergy, Unknown, 03/22/15) Subjective feels OK no new complaints Objective Last 24 Hour Vital Signs Date Time Temp Pulse Resp B/P (MAP) Pulse Ox O2 Delivery O2 Flow Rate FiO2 12/25/16 08:00 98.0 114 18 130/62 100 Room Air 12/25/16 04:00 97.9 80 20 132/72 99 Room Air 12/25/16 04:00 112 12/25/16 00:31 98.0 79 19 128/67 98 Room Air 12/25/16 00:00 105 12/24/16 20:12 97.6 85 19 135/70 99 Room Air 12/24/16 20:00 97.6 85 19 135/70 99 Room Air 12/24/16 20:00 80 18 Room Air 12/24/16 20:00 84 12/24/16 16:54 97.2 82 18 127/67 98 Room Air 12/24/16 16:34 82 12/24/16 15:59 98.2 83 20 118/101 100 Room Air 12/24/16 15:20 83 20 118/101 100 Room Air 12/24/16 13:20 93 20 119/65 96 Room Air 12/24/16 11:19 96 20 118/48 99 Room Air 12/24/16 09:12 98.2 94 20 136/61 99 Room Air Laboratory Tests 12/24/16 10:10: Urine Color Yellow, Urine Appearance Cloudy, Urine pH 6.5, Urine Specific [place] 1.015, Urine Protein 2+H, Urine Glucose (UA) Negative, Urine Ketones Negative, Urine Occult Blood 3+H, Urine Nitrite Negative, Urine Bilirubin Negative, Urine Urobilinogen Normal, Urine Leukocyte Esterase 3+H, Urine RBC 5- 10H, Urine WBC 20-30H, Urine Squamous Epithelial Cells Occasional, Urine Bacteria ManyH 12/24/16 10:55: White Blood Count 7.2, Red Blood Count 2.53L, Hemoglobin 7.8L, Hematocrit 25.3L , Mean Corpuscular Volume 100H, Mean Corpuscular Hemoglobin 31.0, Mean Corpuscular Hemoglobin Concent 31.0L, Red Cell Distribution Width 15.3H, Platelet Count 116L, Mean Platelet Volume 7.5, Neutrophils (%) (Auto) , Lymphocytes (%) (Auto) , Monocytes (%) (Auto) , Eosinophils (%) (Auto) , Basophils (%) (Auto) , Differential Total Cells Counted 100, Neutrophils % ( Manual) 56, Lymphocytes % (Manual) 28, Monocytes % (Manual) 7, Eosinophils % ( Manual) 7H, Basophils % (Manual) 0, Band Neutrophils 2, Platelet Estimate DecreasedL, Platelet Morphology Normal, Hypochromasia 2+, Anisocytosis 2+, Macrocytosis 1+, Erythrocyte Sedimentation Rate 83H, Reticulocyte Count 3.8H, Prothrombin Time 12.4H, Prothromb Time International Ratio 1.2H, Activated Partial Thromboplast Time 28, Sodium Level 139, Potassium Level 4.4, Chloride Level 110H, Carbon Dioxide Level 17L, Anion Gap 12, Blood Urea Nitrogen 22, Creatinine 1.3H, Estimat Glomerular Filtration Rate , Glucose Level 205H, Lactic Acid Level 1.30, Calcium Level 9.3, Iron Level 66, Total Iron Binding Capacity 246L, Percent Iron Saturation 27, Unsaturated Iron Binding 180, Total Bilirubin 0.8, Aspartate Amino Transf (AST/SGOT) 39, Alanine Aminotransferase ( ALT/SGPT) 12, Alkaline Phosphatase 165H, Ammonia 90H, Lactate Dehydrogenase 281H , Total Creatine Kinase 71, Creatine Kinase MB 3.9H, Creatine Kinase MB Relative Index 5.4, Troponin I < 0.30, Pro-B-Type Natriuretic Peptide 1236H, Total Protein 6.2L, Albumin 2.5L, Globulin 3.7, Albumin/Globulin Ratio 0.6L, Carcinoembryonic Antigen 15.4H, Vitamin B12 Level 1589H, Folate [Pending] Height (Feet): 5 Height (Inches): 5.00 Weight (Pounds): 234 Objective Obese WW NCAT supple CTA RR Soft ND NT trace edema non focal KEKEKIERSTEN Dec 25, 2016 09:16
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
[2016-12-25 10:16] LABS: BASOPHILS % (AUTO) 1.3 % (0.0-2.0); LYMPHOCYTES % (AUTO) 25.7 % (20.0-45.0); MEAN CORPUSCULAR HEMOGLOBIN 31.1 PG (27.0-31.0); MEAN CORPUSCULAR HGB CONC 30.8 G/DL (32.0-36.0); MEAN CORPUSCULAR VOLUME 101 FL (80-99); MONOCYTES % (AUTO) 10.1 % (1.0-10.0); PLATELET COUNT 116 K/UL (150-450); RED BLOOD COUNT 2.61 M/UL (4.20-5.40); WHITE BLOOD COUNT 5.4 K/UL (4.8-10.8)
[2016-12-25 10:37] LABS: ALANINE AMINOTRANSFERASE 13 U/L (3-33); ALBUMIN/GLOBULIN RATIO 0.6 (1.0-2.7); ANION GAP 10 (5-15); ASPARTATE AMINO TRANSFERASE 46 U/L (5-40); CALCIUM 9.8 mg/dL (8.6-10.2); CARBON DIOXIDE 19 mEQ/L (20-30); CHLORIDE 111 mEQ/L (98-107); CREATININE 1.4 mg/dL (0.5-0.9); HEMOLYSIS 4; POTASSIUM 4.4 mEQ/L (3.4-4.9); SODIUM 140 mEQ/L (135-145); TOTAL PROTEIN 6.1 g/dL (6.6-8.7)
[2016-12-25 10:52] LABS: BILIRUBIN,DIRECT 0.5 mg/dL (0.1-0.3)
[2016-12-25 12:00] VITALS: BP 152/75
[2016-12-25] MEDS: Nystatin Powder 100,000 units/gm 15gm TOPIC SCH ×2 (12:12→17:25)
--- NOTE | 2016-12-25 13:56 | Diagnostic Imaging Report ---
Clinical Indication: Abdominal pain, cirrhosis, abnormal carcinoembryonic antigen Technique: Patient given oral contrast. IV administration nonionic contrast. Venous phase spiral acquisition obtained through the abdomen and pelvis. Multiplanar reconstructions were generated. Total dose length product 1398 mGycm. CTDIvol(s) 26 mGy. Dose reduction achieved using automated exposure control Comparison: 09/15/2016 Findings: Again demonstrated is atrophy of the liver and diffuse surface nodularity. A few scattered calcifications are seen within the liver. A subtle area of decreased attenuation is seen in segment 3 liver, best seen on image 26 of series 3. This measures roughly 7 mm in diameter. This is not evident on a prior exams. The gallbladder is not definitely visualized. A few calculi are seen in the gallbladder fossa including a 7 mm calculus. This calculus was evident in the same area on a 06/23/[address] scan, but not on earlier images. No biliary ductal dilatation. The spleen is enlarged, measuring 16.3 cm long axis dimension. Again demonstrated are large spontaneous splenorenal shunt type varices. Again demonstrated is a small calcification within the pancreatic head. The pancreas is otherwise unremarkable. Again demonstrated is a 13 mm diameter right adrenal nodule. Low-attenuation on a prior noncontrast CT of January 2012 indicate that this was a benign adenoma, and the lesion is unchanged since that time. The left adrenal is unremarkable. Stable subcentimeter low-attenuation lesion in the right renal lower pole is otherwise too small to characterize. The left kidney is unremarkable. No retroperitoneal or mesenteric mass or adenopathy. No pelvic mass or adenopathy. The uterus is absent, presumably postsurgically. Prominent but not frankly enlarged nodes are again seen in the inguinal regions bilaterally. Prominent but not frankly enlarged bilateral iliac chain nodes are again demonstrated. Left ovarian calcifications are again demonstrated. The appendix is normal. There is no evidence of diverticulosis or diverticulitis. No definite colonic mural abnormality, but conventional CT as low sensitivity for such. No small bowel distention or small bowel wall thickening. There is broad-based diastasis of the rectus abdominis tendon, without evidence of silvano herniation. There is a surgical clip in the anterior upper pelvic wall to the left of midline. No free or loculated intraperitoneal air or fluid is evident. The distal esophagus, stomach, duodenum are unremarkable. Small fat-containing left inguinal hernia again demonstrated. The included lung bases are clear. The heart is mildly enlarged. There is evidence of prior L1 compression fracture and prior L1 vertebral body augmentation procedure. The previously reported right femoral central venous catheter is no longer present. Previously demonstrated Nunez catheter is no longer present. Impression: Subtle and in fact somewhat questionable area of low attenuation in segment 3 of the liver, not definitely evident previously. Too small to characterize, quite possibly developing bile hormone, or benign simple cyst. However, given the provided clinical history of abnormal carcinoembryonic antigen, possibility of a hepatic metastasis should be considered. No other findings to suggest etiology of abnormal CEA demonstrated Evidence of hepatic cirrhosis, also previously described. Nonvisualization of the gallbladder. Given appearance of the gallbladder with multiple stones on prior 05/02/2015 exam, there as presumably been interim cholecystectomy. There is a calcification within the gallbladder fossa. Etiology of this is uncertain, but this could represent and intraductal calculus which has been present in the same location since June of 2015. If so, this is not causing any evident biliary obstruction. Splenomegaly, also previously described Spontaneous splenorenal shunt type varices, pre -- sumably indicative of portal hypertension, also previously described Stable 13 mm right adrenal adenoma Subcentimeter low-attenuation right renal lesion, stable. No further followup necessary Other findings as noted, including mild cardiomegaly, old L1 compression fracture with evidence of prior vertebral body augmentation procedure, broad-based diastasis of the rectus abdominis tendon, left upper pelvic wall surgical clip, prior hysterectomy left ovarian calcifications The CT scanner at [facility] is accredited by the [employer] and the scans are performed using protocols designed to limit radiation exposure to as low as reasonably achievable to attain images of sufficient resolution adequate for diagnostic evaluation.
--- NOTE | 2016-12-25 14:19 | Diagnostic Imaging Report ---
Indications: Needs long-term IV access Technique: Ultrasound confirms patent compressible left basilic vein. Total sterile technique, including sterile probe cover and sterile gel, hat, mask,, sterile gown, large sterile drape, and preparation with 2% chlorhexidine utilized. Local anesthesia with 1% lidocaine. Under real-time ultrasound guidance, puncture basilic vein using 21-gauge needle, documented and archived, passage 0.018 guidewire under direct fluoroscopy, which was used to determine appropriate catheter length, exchange for 5 Korean peel-away sheath. 5 [place] Bard dual-lumen power PICC cut to 42 cm. It was inserted through the peel-away sheath. Peel-away sheath and guidewire removed. Catheter fixed to the skin. Both catheter ports aspirated and flushed. Patient tolerated procedure well, without immediate complication. Digital radiograph documents satisfactory catheter tip position, at the cavoatrial junction. Total fluoroscopy time 0.6 minutes. Total dose area product 40 dGycm2 Impression: Successful placement of left arm PICC under sonographic and fluoroscopic guidance, as described above.
--- NOTE | 2016-12-25 14:39 | Pulmonology Progress Note ---
Assessment/Plan Problems: (1) Altered level of consciousness (2) Generalized weakness (3) Cirrhosis (4) Elevated CEA (5) Anemia (6) Sleep apnea, obstructive (7) DM (diabetes mellitus) Assessment/Plan prbc prn check OB GI ordered CT abdomen and pelvis check renal function check electroltyes Subjective Interval Events: more awake, Allergies: Coded Allergies: PENICILLINS (Unverified Allergy, Unknown, 03/22/15) Objective Last 24 Hour Vital Signs Date Time Temp Pulse Resp B/P (MAP) Pulse Ox O2 Delivery O2 Flow Rate FiO2 12/25/16 12:00 98.1 103 18 152/75 99 Room Air 12/25/16 08:00 98.0 114 18 130/62 100 Room Air 12/25/16 06:49 110 19 Room Air 12/25/16 04:00 97.9 80 20 132/72 99 Room Air 12/25/16 04:00 112 12/25/16 00:31 98.0 79 19 128/67 98 Room Air 12/25/16 00:00 105 12/24/16 20:12 97.6 85 19 135/70 99 Room Air 12/24/16 20:00 97.6 85 19 135/70 99 Room Air 12/24/16 20:00 80 18 Room Air 12/24/16 20:00 84 12/24/16 16:54 97.2 82 18 127/67 98 Room Air 12/24/16 16:34 82 12/24/16 15:59 98.2 83 20 118/101 100 Room Air 12/24/16 15:20 83 20 118/101 100 Room Air General Appearance: WD/WN HEENT: normocephalic, atraumatic Respiratory/Chest: chest wall non-tender, lungs clear Breasts: no masses Cardiovascular: normal rate Abdomen: normal bowel sounds, soft, non tender, no scars Extremities: no cyanosis, no clubbing Skin: no lesions 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, abnormal gait Lymphatic: no neck adenopathy, no groin adenopathy Musculoskeletal: normal muscle bulk Microbiology Date/Time Source Procedure Growth Status 12/24/16 10:10 Urine,Clean Catch Urine Culture - Preliminary Gram Negative Bacillus 1 Resulted Laboratory Tests 12/25/16 10:05: White Blood Count 5.4, Red Blood Count 2.61L, Hemoglobin 8.1L, Hematocrit 26.4L , Mean Corpuscular Volume 101H, Mean Corpuscular Hemoglobin 31.1H, Mean Corpuscular Hemoglobin Concent 30.8L, Red Cell Distribution Width 15.0H, Platelet Count 116L, Mean Platelet Volume 7.0, Neutrophils (%) (Auto) 54.0, Lymphocytes (%) (Auto) 25.7, Monocytes (%) (Auto) 10.1H, Eosinophils (%) (Auto) 9.0H, Basophils (%) (Auto) 1.3, Sodium Level 140, Potassium Level 4.4, Chloride Level 111H, Carbon Dioxide Level 19L, Anion Gap 10, Blood Urea Nitrogen 22, Creatinine 1.4H, Estimat Glomerular Filtration Rate , Glucose Level 110H, Calcium Level 9.8, Total Bilirubin 1.1, Direct Bilirubin 0.5H, Aspartate Amino Transf (AST/SGOT) 46H, Alanine Aminotransferase (ALT/SGPT) 13, Alkaline Phosphatase 155H, Total Protein 6.1L, Albumin 2.5L, Globulin 3.6, Albumin/ Globulin Ratio 0.6L, Alpha Fetoprotein [Pending] Current Medications Medications (Trade) Dose Ordered Sig/Pavel Route PRN Reason Start Time Stop Time Status Last Admin Dose Admin Acetaminophen (Tylenol) 650 mg Q4H PRN ORAL fever 12/24/16 15:00 01/23/17 14:59 Albuterol/ Ipratropium (DuoNeb 0.5-3(2.5)mg/3ml) 3 ml Q4H PRN HHN Shortness of Breath 12/24/16 15:00 12/29/16 14:59 Chlorhexidine Gluconate (Dianne-Hex 2%) 1 applic DAILY TOPIC 12/25/16 09:00 01/24/17 08:59 Clotrimazole (Lotrimin) 1 applic EVERY 12 HOURS TOPIC 12/25/16 10:00 01/24/17 09:59 12/25/16 10:14 Dextrose (Dextrose 50%) STAT PRN IV Hypoglycemia 12/24/16 15:00 01/23/17 14:59 Heparin Sodium (Porcine) (Heparin 5000 units/ml) 5,000 units EVERY 12 HOURS SUBQ 12/24/16 21:00 01/23/17 20:59 12/25/16 05:42 Insulin Aspart (NovoLOG) BEFORE MEALS AND HS SUBQ 12/24/16 16:30 01/23/17 16:29 12/24/16 21:18 Lactulose (Cephulac) 30 gm THREE TIMES A DAY ORAL 12/25/16 09:00 01/24/17 08:59 12/25/16 12:20 Morphine Sulfate (Morphine Sulfate) 2 mg Q4H PRN IVP Moderate Pain (Pain Scale 4-6) 12/24/16 15:00 12/31/16 14:59 Nitroglycerin (Ntg) 0.4 mg Every 5 Minutes PRN SL Prn Chest Pain 12/24/16 15:00 01/23/17 14:59 Nystatin (Nystop Powder) 1 applic THREE TIMES A DAY TOPIC 12/25/16 13:00 01/24/17 12:59 12/25/16 12:12 Olanzapine (ZyPREXA) 5 mg BEDTIME ORAL 12/25/16 21:00 01/24/17 20:59 Ondansetron HCl (Zofran) 4 mg Q6H PRN IVP Nausea & Vomiting 12/24/16 15:00 01/23/17 14:59 Polyethylene Glycol (Miralax) 17 gm DAILYPRN PRN ORAL Constipation 12/24/16 15:00 01/23/17 14:59 Sodium Chloride 1,000 ml @ 75 mls/hr [id number] IV 12/24/16 15:30 01/23/17 15:29 12/25/16 05:37 Temazepam (Restoril) 15 mg HSPRN PRN ORAL Insomnia 12/24/16 15:00 12/31/16 14:59 Vancomycin HCl (Vanco rx to dose) 1 ea DAILYPRN PRN MISC PRN RX PROTOCOL 12/24/16 16:45 01/23/17 16:44 Vancomycin HCl/ Dextrose 250 ml @ 125 mls/hr Q24H IVPB 12/24/16 18:00 12/29/16 17:59 12/24/16 18:13 DIONI TRIANA Dec 25, 2016 14:39
--- NOTE | 2016-12-25 15:30 | Consultation ---
DATE OF CONSULTATION: 12/24/2016 NOTE: POOR AUDIO QUALITY GASTROLOGY CONSULTATION CONSULTING PHYSICIAN: Yokasta Torres M.D. CHIEF COMPLAINT: I was asked to see this patient by Dr. Rl Tee for evaluation of GI issues. HISTORY OF PRESENT ILLNESS: The patient is a debilitated 76-year-old white woman with a history of nonalcoholic steatohepatitis and subsequent cirrhosis, was admitted for altered mental status. The patient is now no longer delirious. She is able to recognize me and she is alert and oriented to place. She does have worsening anemia. On her previous admission, her CEA was elevated and this was discussed with the patient's daughter. At that time, it was decided to hold off any intervention, to follow up the patient. On this admission, the CEA is higher. The patient denies any acute symptomatology, although she is very debilitated. PAST MEDICAL HISTORY: History of nonalcoholic steatohepatitis, history of cirrhosis, diabetes cardiomegaly, history of ascites with bed-bound state, congestive heart failure, history of hepatic encephalopathy, portal hypertension, and elevated CEA. MEDICATIONS: See chart list for details. FAMILY HISTORY: Noncontributory. SOCIAL HISTORY: The patient is a long-term custodial resident. Her daughter looks after her affairs. REVIEW OF SYSTEMS: Otherwise negative. PHYSICAL EXAMINATION: GENERAL: The patient is a pleasant, obese white woman, seen in her room . HEENT: Normocephalic and atraumatic. Sclerae are anicteric. Dentition is poor. NECK: Supple. CHEST: Clear to auscultation. CARDIOVASCULAR: Revealed a regular rate. ABDOMEN: Soft, obese. EXTREMITIES: Non-pitting edema. NEUROLOGIC: Grossly nonfocal. The patient was responsive. LABORATORY DATA: Noted. ASSESSMENT: This patient presents with anemia with progression of her severity. In addition, the patient has elevated CEA, which is worrisome. Differential diagnosis for the CEA would include breast cancer, lung cancer, or gastrointestinal malignancies. Anemia, however, could be a chronic disease versus gastrointestinal loss. The above was all discussed with the patient's daughter and she wishes to proceed with EGD to finding out the source of these problems. RECOMMENDATIONS: 1. Check chest x-ray and check the results of labs. 2. Check CT scan of the abdomen and pelvis. 3. Check alpha-fetoprotein. 4. Consider gynecological exam. 5. Endoscopy and colonoscopy after above. Thank you for asking me to participate in the care of this patient. Yokasta Torres M.D. DR: Edy JOB#: [id number] CC: HAL
[2016-12-25 15:41] LABS: APPEARANCE,URINE CLEAR; KETONES,URINE NEGATIVE (NEGATIVE); LEUKOCYTE ESTERASE ,URINE 3+ (NEGATIVE); NITRITE,URINE POSITIVE (NEGATIVE); PH,URINE 7 (4.5-8.0); PROTEIN,URINE 1+ (NEGATIVE); UROBILINOGEN,URINE NORMAL MG/DL (0.0-1.0)
[2016-12-25 15:51] LABS: SQUAMOUS EPITHELIAL CELL,UR FEW /LPF (NONE/OCC)
[2016-12-25 15:52] LABS: BACTERIA,URINE MANY /HPF
[2016-12-25 15:53] LABS: AMORPHOUS SEDIMENT,UR MODERATE /LPF; RBC,URINE 30-40 /HPF (0 - 2); WBC,URINE 20-30 /HPF (0 - 2)
[2016-12-25 16:00] VITALS: BP 142/77
[2016-12-25] MEDS: Meropenem 1gm/NS 110ml IVPB SCH ×4 (16:25→23:07)
[2016-12-25] MEDS ORDERED: Vancomycin 1gm/D5W 275ml IVPB SCH ×2 (18:00)
--- NOTE | 2016-12-25 19:01 | History & Physical ---
History and Physical History & Physicial Dictated for Int Med-Dr Tee no. [id number]. KATHARINA POND Dec 25, 2016 19:01
--- NOTE | 2016-12-25 19:25 | Consultation ---
Consult Note Assessment/Plan # [id number] LYLA ROJAS M.D. Dec 25, 2016 19:25
[2016-12-25 20:00] VITALS: BP 148/81
--- NOTE | 2016-12-25 22:24 | Geriatric Progress Note ---
Assessment/Plan Assessment/Plan Delirium MDD -cont current treatment Subjective Mood/Memory: Reports: prior hx, anxiety, depressed feelings, emotional problems Psychiatric: Reports: hallucinations Sleep: Reports: doesn't sleep well Geriatric Geriatric Last 24 Hour Vital Signs Date Time Temp Pulse Resp B/P (MAP) Pulse Ox O2 Delivery O2 Flow Rate FiO2 12/25/16 19:44 120 20 Room Air 12/25/16 16:00 119 12/25/16 16:00 97.9 115 18 142/77 98 Room Air 12/25/16 12:00 106 12/25/16 12:00 98.1 103 18 152/75 99 Room Air 12/25/16 08:00 98.0 114 18 130/62 100 Room Air 12/25/16 08:00 108 12/25/16 06:49 110 19 Room Air 12/25/16 04:00 97.9 80 20 132/72 99 Room Air 12/25/16 04:00 112 12/25/16 00:31 98.0 79 19 128/67 98 Room Air 12/25/16 00:00 105 Intake and Output 12/25/16 12/26/16 19:00 07:00 Intake Total 1053.708 ml Balance 1053.708 ml Intake Oral 650 ml IV Total 403.708 ml # Voids 2 # Bowel Movements 6 Laboratory Tests Test 12/25/16 10:05 12/25/16 12:00 White Blood Count 5.4 K/UL (4.8-10.8) Red Blood Count 2.61 M/UL (4.20-5.40) L Hemoglobin 8.1 G/DL (12.0-16.0) L Hematocrit 26.4 % (37.0-47.0) L Mean Corpuscular Volume 101 FL (80-99) H Mean Corpuscular Hemoglobin 31.1 PG (27.0-31.0) H Mean Corpuscular Hemoglobin Concent 30.8 G/DL (32.0-36.0) L Red Cell Distribution Width 15.0 % (11.6-14.8) H Platelet Count 116 K/UL (150-450) L Mean Platelet Volume 7.0 FL (6.5-10.1) Neutrophils (%) (Auto) 54.0 % (45.0-75.0) Lymphocytes (%) (Auto) 25.7 % (20.0-45.0) Monocytes (%) (Auto) 10.1 % (1.0-10.0) H Eosinophils (%) (Auto) 9.0 % (0.0-3.0) H Basophils (%) (Auto) 1.3 % (0.0-2.0) Sodium Level 140 mEQ/L (135-145) Potassium Level 4.4 mEQ/L (3.4-4.9) Chloride Level 111 mEQ/L (98-107) H Carbon Dioxide Level 19 mEQ/L (20-30) L Anion Gap 10 (5-15) Blood Urea Nitrogen 22 mg/dL (7-23) Creatinine 1.4 mg/dL (0.5-0.9) H Estimat Glomerular Filtration Rate mL/min (>60) Glucose Level 110 mg/dL (74-106) H Calcium Level 9.8 mg/dL (8.6-10.2) Total Bilirubin 1.1 mg/dL (0.0-1.2) Direct Bilirubin 0.5 mg/dL (0.1-0.3) H Aspartate Amino Transf (AST/SGOT) 46 U/L (5-40) H Alanine Aminotransferase (ALT/SGPT) 13 U/L (3-33) Alkaline Phosphatase 155 U/L (35-104) H Total Protein 6.1 g/dL (6.6-8.7) L Albumin 2.5 g/dL (3.5-5.2) L Globulin 3.6 g/dL Albumin/Globulin Ratio 0.6 (1.0-2.7) L Alpha Fetoprotein Pending Urine Color Pale yellow Urine Appearance Clear Urine pH 7 (4.5-8.0) Urine Specific [place] 1.005 (1.005-1.035) Urine Protein 1+ (NEGATIVE) H Urine Glucose (UA) Negative (NEGATIVE) Urine Ketones Negative (NEGATIVE) Urine Occult Blood 4+ (NEGATIVE) H Urine Nitrite Positive (NEGATIVE) H Urine Bilirubin Negative (NEGATIVE) Urine Urobilinogen Normal MG/DL (0.0-1.0) Urine Leukocyte Esterase 3+ (NEGATIVE) H Urine RBC 30-40 /HPF (0 - 2) H Urine WBC 20-30 /HPF (0 - 2) H Urine Squamous Epithelial Cells Few /LPF (NONE/OCC) Urine Amorphous Sediment Moderate /LPF (NONE) H Urine Bacteria Many /HPF (NONE) H Stool Occult Blood Pending Current Medications Medications (Trade) Dose Ordered Sig/Pavel Route PRN Reason Start Time Stop Time Status Last Admin Dose Admin Acetaminophen (Tylenol) 650 mg Q4H PRN ORAL fever 12/24/16 15:00 01/23/17 14:59 Albuterol/ Ipratropium (DuoNeb 0.5-3(2.5)mg/3ml) 3 ml Q4H PRN HHN Shortness of Breath 12/24/16 15:00 12/29/16 14:59 Chlorhexidine Gluconate (Dianne-Hex 2%) 1 applic DAILY TOPIC 12/25/16 09:00 01/24/17 08:59 Clotrimazole (Lotrimin) 1 applic EVERY 12 HOURS TOPIC 12/25/16 10:00 01/24/17 09:59 12/25/16 22:16 Dextrose (Dextrose 50%) STAT PRN IV Hypoglycemia 12/24/16 15:00 01/23/17 14:59 Heparin Sodium (Porcine) (Heparin 5000 units/ml) 5,000 units EVERY 12 HOURS SUBQ 12/24/16 21:00 01/23/17 20:59 12/25/16 22:16 Insulin Aspart (NovoLOG) BEFORE MEALS AND HS SUBQ 12/24/16 16:30 01/23/17 16:29 12/25/16 22:14 Lactulose (Cephulac) 30 gm THREE TIMES A DAY ORAL 12/25/16 09:00 01/24/17 08:59 12/25/16 18:53 Meropenem 1 gm/ Sodium Chloride 110 ml @ 220 mls/hr Q12HR IVPB 12/25/16 16:00 12/30/16 15:59 12/25/16 16:25 Morphine Sulfate (Morphine Sulfate) 2 mg Q4H PRN IVP Moderate Pain (Pain Scale 4-6) 12/24/16 15:00 12/31/16 14:59 Nitroglycerin (Ntg) 0.4 mg Every 5 Minutes PRN SL Prn Chest Pain 12/24/16 15:00 01/23/17 14:59 Nystatin (Nystop Powder) 1 applic THREE TIMES A DAY TOPIC 12/25/16 13:00 01/24/17 12:59 12/25/16 17:25 Olanzapine (ZyPREXA) 5 mg BEDTIME ORAL 12/25/16 21:00 01/24/17 20:59 12/25/16 22:07 Ondansetron HCl (Zofran) 4 mg Q6H PRN IVP Nausea & Vomiting 12/24/16 15:00 01/23/17 14:59 Polyethylene Glycol (Miralax) 17 gm DAILYPRN PRN ORAL Constipation 12/24/16 15:00 01/23/17 14:59 Sodium Chloride 1,000 ml @ 75 mls/hr [id number] IV 12/24/16 15:30 01/23/17 15:29 12/25/16 17:42 Temazepam (Restoril) 15 mg HSPRN PRN ORAL Insomnia 12/24/16 15:00 12/31/16 14:59 Vancomycin HCl (Vanco rx to dose) 1 ea DAILYPRN PRN MISC PRN RX PROTOCOL 12/24/16 16:45 01/23/17 16:44 Vancomycin HCl 1 gm/Dextrose 275 ml @ 183.708 mls/hr Q24H IVPB 12/25/16 18:00 12/30/16 17:59 12/25/16 17:42 Height (Feet): 5 Height (Inches): 5.00 Weight (Pounds): 234 General Appearance: well nourished, no apparent distress, alert, good eye contact Psychiatric: no suicidal/homicidal ideation, anxious Psychiatric Behavior: uncooperative Orientation: person, disoriented Affect: restricted Insight: poor Thought Content: persecutory delusions, grandiose delusions Oj Medel M.D. Dec 25, 2016 22:24
[2016-12-26] VITALS: BP 107/77
[2016-12-26 04:00] VITALS: BP 129/57
--- NOTE | 2016-12-26 04:45 | History and Physical Report ---
DATE OF ADMISSION: 12/24/2016 CHIEF COMPLAINT: The patient is a 76-year-old white female who presents with chief complaint of altered mental status. HISTORY OF PRESENT ILLNESS: The patient is a resident of [facility]. According to staff at [facility], the patient has become increasingly confused. The patient was transferred to [facility] for evaluation. The patient was found to have urinary tract infection. The patient is admitted with altered mental status and urinary tract infection. PAST MEDICAL HISTORY: Significant for: 1. Type 2 diabetes. 2. Hypertension. 3. Obstructive sleep apnea. 4. Gastroesophageal reflux disease. 5. Hypercholesterolemia. 6. History of cardiomyopathy. 7. Liver cirrhosis. 8. Fatty liver. PAST SURGICAL HISTORY: Significant for PEG placement with subsequent removal. CURRENT MEDICATIONS: 1. Tylenol 650 mg one tablet p.o. q.4 h. p.r.n. 2. Vitamin C 500 mg one tablet p.o. daily. 3. Lipitor 20 mg one tablet p.o. nightly. 4. Plavix 75 mg one tablet p.o. daily. 5. Cranberry 450 mg one tablet p.o. daily. 6. Benadryl 25 mg one tablet p.o. q.8 h. p.r.n. 7. Pepcid 40 mg p.o. q.12 h. 8. Iron sulfate 325 mg one tablet p.o. twice daily. 9. Gabapentin 300 mg one tablet p.o. three times daily. 10. [place] 10/325 mg one tablet p.o. q.6 h. p.r.n. 11. NovoLog sliding scale. 12. Levemir of an unknown dose nightly. 13. DuoNeb nebulized q.4 h. p.r.n. 14. Lactulose 30 mL p.o. three times daily. 15. Losartan 12.5 mg one tablet p.o. daily. 16. Metoprolol 25 mg one tablet p.o. twice daily. 17. Starlix 60 mg one tablet p.o. q.a.c. 18. Omeprazole 40 mg one tablet p.o. daily. 19. Zantac 150 mg one tablet p.o. daily. 20. Zoloft 25 mg two tablets p.o. daily. 21. Temazepam 30 mg one tablet p.o. nightly. ALLERGIES: Penicillin. SOCIAL HISTORY: The patient is a resident of [facility]. The patient denies tobacco or alcohol use. REVIEW OF SYSTEMS: Unable to assess, secondary to patient's mental status. PHYSICAL EXAMINATION: VITAL SIGNS: Temperature 98.0 degrees, respirations 19, pulse 79, and blood pressure 128/67. GENERAL: The patient is a well-developed and well-nourished elderly female who is confused, in no apparent distress. HEENT: Eyes, pupils are equal and responsive to light and accommodation. Extraocular movements are intact. NECK: Supple without lymphadenopathy. CHEST: Lungs are clear to auscultation bilaterally without wheezes or rales. CARDIOVASCULAR: Regular rhythm and rate. S1 and S2 are normal without murmurs, rubs, or gallops. ABDOMEN: Soft, nontender, and nondistended. Positive bowel sounds. No hepatosplenomegaly. Currently, no rebound or guarding noted. EXTREMITIES: Negative for clubbing, cyanosis, or edema. RECTAL: Refused. GENITAL: Refused. NEUROLOGIC: Cranial nerves II to XII are grossly intact without focal deficit. LABORATORY STUDIES: WBC 7.3, hemoglobin 7.8, hematocrit 25.3, and platelets 116,000. Sodium 139, potassium 4.4, chloride 110, CO2 17, BUN 22, creatinine 1.3, and glucose 205. Urinalysis showed 3+ occult blood and 3+ leukocyte esterase with 20 to 30 WBC. ASSESSMENT: This is a 76-year-old white female. 1. Altered mental status. 2. Encephalopathy. 3. Urinary tract infection. 4. Anemia. 5. Diabetes type 2. 6. Hypertension. 7. Obstructive sleep apnea. 8. Gastroesophageal reflux disease. 9. Hypercholesterolemia. 10. Cardiomyopathy. 11. Liver cirrhosis. 12. Fatty liver. TREATMENT: 1. Altered mental status/encephalopathy, this may be secondary to urinary tract infection. A Neurology consultation has been obtained with Dr. Maguire. 2. Urinary tract infection. The patient has been started empirically on vancomycin and meropenem due to senior living acquired urinary tract infection. Urine culture is pending. We will await results of urine culture as above. 3. Anemia. A Gastroenterology consultation has been obtained with Dr. Torres. The patient will require anemia workup during this hospitalization. 4. Diabetes, type 2. Continue NovoLog sliding scale. 5. Hypertension. Continue metoprolol and losartan as above. 6. Obstructive sleep apnea. 7. Gastroesophageal reflux disease. Continue Zantac as above. 8. Cardiomyopathy. 9. Liver cirrhosis. 10. Fatty liver. Jed Guthrie M.D. DR: ZAHRA JOB#: [id number] CC:
[2016-12-26 05:44] LABS: MEAN CORPUSCULAR HEMOGLOBIN 31.9 PG (27.0-31.0); MEAN CORPUSCULAR HGB CONC 31.4 G/DL (32.0-36.0); MEAN CORPUSCULAR VOLUME 102 FL (80-99); MEAN PLATELET VOLUME 6.2 FL (6.5-10.1); PLATELET COUNT 100 K/UL (150-450); RED BLOOD COUNT 2.22 M/UL (4.20-5.40); RED CELL DISTRIBUTION WIDTH 15.1 % (11.6-14.8); WHITE BLOOD COUNT 5.9 K/UL (4.8-10.8)
[2016-12-26 06:02] LABS: INR 1.4 (0.9-1.1); PROTHROMBIN TIME 14.4 SEC (9.30-11.50)
[2016-12-26 06:03] LABS: ALANINE AMINOTRANSFERASE 8 U/L (3-33); ALBUMIN/GLOBULIN RATIO 0.6 (1.0-2.7); ANION GAP 9 (5-15); ASPARTATE AMINO TRANSFERASE 26 U/L (5-40); CARBON DIOXIDE 14 mEQ/L (20-30); CHLORIDE 121 mEQ/L (98-107); HEMOLYSIS 1; MAGNESIUM 1.2 mg/dL (1.7-2.5); PHOSPHORUS 1.5 mg/dL (2.5-4.8); SODIUM 144 mEQ/L (135-145); TOTAL PROTEIN 3.7 g/dL (6.6-8.7)
[2016-12-26] MEDS: NovoLOG Insulin Flexpen SUBQ SCH ×4 (06:26→20:54)
[2016-12-26 06:28] LABS: CALCIUM 5.7 mg/dL (8.6-10.2)
[2016-12-26 06:31] LABS: POTASSIUM 2.7 mEQ/L (3.4-4.9)
[2016-12-26 08:00] VITALS: BP 123/72
[2016-12-26] MEDS: Lactulose 20gm/30ml UDC ORAL SCH ×3 (08:30→18:57)
[2016-12-26 08:34] LABS: ANISOCYTOSIS 1+; BAND NEUTROPHILS % (MANUAL) 0 % (0-8); BASOPHILS % (MANUAL) 0 % (0-2); EOSINOPHILS % (MANUAL) 10 % (0-3); HYPOCHROMASIA 1+; LYMPHOCYTES % (MANUAL) 27 % (20-45); MACROCYTES 1+; NEUTROPHILS % (MANUAL) 53 % (45-75); PLATELET ESTIMATE DECREASED; PLATELET MORPHOLOGY NORMAL; TOTAL CELLS COUNTED 100
[2016-12-26] MEDS: Dyna-Hex 2% Top Sol 8oz TOPIC SCH (08:34)
[2016-12-26] MEDS: Heparin 5000 units/ml inj SUBQ SCH ×2 (08:35→20:16)
[2016-12-26] MEDS: Nystatin Powder 100,000 units/gm 15gm TOPIC SCH ×3 (08:35→17:37)
[2016-12-26] MEDS: Meropenem 1gm/NS 110ml IVPB SCH ×2 (08:36)
[2016-12-26 09:23] LABS: OTHERS PATHOLOGIST COMMENT
[2016-12-26 09:27] LABS: MEAN CORPUSCULAR HEMOGLOBIN 30.8 PG (27.0-31.0); MEAN CORPUSCULAR HGB CONC 30.1 G/DL (32.0-36.0); MEAN CORPUSCULAR VOLUME 102 FL (80-99); PLATELET COUNT 115 K/UL (150-450); RED BLOOD COUNT 2.53 M/UL (4.20-5.40); RED CELL DISTRIBUTION WIDTH 15.4 % (11.6-14.8); WHITE BLOOD COUNT 5.8 K/UL (4.8-10.8)
[2016-12-26 09:41] LABS: ANION GAP 10 (5-15); CALCIUM 9.3 mg/dL (8.6-10.2); CARBON DIOXIDE 18 mEQ/L (20-30); CHLORIDE 110 mEQ/L (98-107); CREATININE 1.7 mg/dL (0.5-0.9); HEMOLYSIS 8; POTASSIUM 4.3 mEQ/L (3.4-4.9); SODIUM 138 mEQ/L (135-145)
[2016-12-26 10:13] LABS: MAGNESIUM 1.5 mg/dL (1.7-2.5); PHOSPHORUS 2.4 mg/dL (2.5-4.8)
[2016-12-26 10:30] LABS: BAND NEUTROPHILS % (MANUAL) 0 % (0-8); BASOPHILS % (MANUAL) 0 % (0-2); EOSINOPHILS % (MANUAL) 8 % (0-3); HYPOCHROMASIA 1+; LYMPHOCYTES % (MANUAL) 20 % (20-45); MACROCYTES 1+; NEUTROPHILS % (MANUAL) 61 % (45-75); PLATELET ESTIMATE DECREASED; PLATELET MORPHOLOGY NORMAL; TOTAL CELLS COUNTED 100
--- NOTE | 2016-12-26 11:15 | Consultation ---
DATE OF CONSULTATION: 12/25/2016 INFECTIOUS DISEASE CONSULTATION CONSULTING PHYSICIAN: Etian Stark M.D. REFERRING PHYSICIAN: Rl Tee M.D. REASON FOR CONSULTATION: Evaluation of the patient for UTI and antibiotic management. HISTORY OF PRESENT ILLNESS: The patient is a 76-year-old female with multiple medical problems who was brought to this medical center due to altered level of consciousness that has improved. The patient is complaining of having dysuria in the last one week. The patient has been started on IV antibiotics. Infectious disease consultation has been requested for further evaluation of the patient's antibiotic management. PAST MEDICAL HISTORY: 1. History of pneumonia. 2. History of recurrent urinary tract infection. 3. History of proximal ureteral stone with mild left hydronephrosis in 2005. 4. History of CKD. 5. Hypercalcemia. 6. Diabetes. 7. Obesity. 8. History of penicillin allergy, however, the patient has in the past. MEDICATIONS: IV vancomycin and meropenem. ALLERGIES: Penicillin. SOCIAL HISTORY: The patient lives in a long term. REVIEW OF SYSTEMS: A 10-point review was done and except what is mentioned above has been negative.HEENT: No recent change in vision or hearing. Pulmonary: No cough or shortness of breath. Cardiovascular: No chest pain or palpitations. Gastrointestinal/Abdomen: No nausea or vomiting. Genitourinary: As mentioned above. PHYSICAL EXAMINATION: VITAL SIGNS: Temperature 97.9 degrees, blood pressure 142/77, pulse 100, and respiratory rate 18. HEENT: Mild pale conjunctivae. No icterus. NECK: No lymphadenopathy. CHEST: Clear. HEART: S1 and S2. ABDOMEN: Soft. Obese. EXTREMITIES: No cyanosis at this time. NEUROLOGIC: Awake and alert. LABORATORY AND DIAGNOSTIC DATA: White blood cells 5.4, hemoglobin 8.1, and platelets 116,000. UA, 20 to 30 white blood cells and red blood cells. BUN is 22, creatinine 1.4, AST 46, ALT 13, and alkaline phosphatase 155. Urine culture is growing Gram-negative rods. CT of the abdomen shows cirrhosis and splenomegaly. ASSESSMENT: The patient is a 76-year-old female with: 1. Status post encephalopathy due to sepsis. 2. History of recurrent urinary tract infection, recurrent dysuria, urine culture is growing gram-negative rods. 3. History of chronic kidney disease. 4. History of hypercalcemia. 5. Diabetes. 6. Obesity. 7. Cirrhosis. 8. Splenomegaly. PLAN: 1. We will continue the patient on meropenem. 2. We will hold IV vancomycin. 3. Monitor CBC. 4. Monitor BMP. 5. Monitor cultures. 6. Based on the patient's clinical course and labs, we will do further recommendations. Thank you, Dr. Tee, for allowing me to participate in the care of this patient. I will follow the patient with you during this hospitalization. Eitan Stark M.D. DR: SHELIA JOB#: [id number] CC:
[2016-12-26 12:00] VITALS: BP 144/73
--- NOTE | 2016-12-26 15:10 | Pulmonology Progress Note ---
Assessment/Plan Problems: (1) Altered level of consciousness (2) Generalized weakness (3) Cirrhosis (4) Elevated CEA (5) Anemia (6) Sleep apnea, obstructive (7) DM (diabetes mellitus) Assessment/Plan prbc prn OB positive CT abdomen and pelvis reviewed, awaiting colonoscopy get echo of heart b/o tachycardia check electroltyes Subjective ROS Limited/Unobtainable: No Interval Events: no aucte complains Allergies: Coded Allergies: PENICILLINS (Unverified Allergy, Unknown, 03/22/15) Objective Last 24 Hour Vital Signs Date Time Temp Pulse Resp B/P (MAP) Pulse Ox O2 Delivery O2 Flow Rate FiO2 12/26/16 12:00 97.8 121 20 144/73 94 Room Air 12/26/16 08:10 118 20 Room Air 12/26/16 08:00 97.9 125 19 123/72 97 Room Air 12/26/16 04:00 98.4 110 20 129/57 97 Room Air 12/26/16 04:00 113 12/26/16 00:00 118 12/26/16 00:00 98.2 114 22 107/77 98 12/25/16 20:00 119 12/25/16 20:00 97.3 118 22 148/81 92 Room Air 12/25/16 19:44 120 20 Room Air 12/25/16 16:00 119 12/25/16 16:00 97.9 115 18 142/77 98 Room Air Intake and Output 12/26/16 12/27/16 19:00 07:00 # Bowel Movements 1 General Appearance: WD/WN HEENT: normocephalic, atraumatic Respiratory/Chest: chest wall non-tender, lungs clear, normal breath sounds Breasts: no masses Cardiovascular: normal peripheral pulses, normal rate Abdomen: normal bowel sounds, soft, non tender Genitourinary: normal external genitalia Extremities: no cyanosis Skin: no rash Microbiology Date/Time Source Procedure Growth Status 12/24/16 20:00 Blood Blood Culture - Preliminary NO GROWTH AFTER 24 HOURS Resulted 12/24/16 19:50 Blood Blood Culture - Preliminary NO GROWTH AFTER 24 HOURS Resulted 12/24/16 10:55 Blood Blood Culture - Preliminary NO GROWTH AFTER 24 HOURS Resulted 12/25/16 12:00 Indwelling Cath Urine Culture - Preliminary Resulted 12/24/16 10:10 Urine,Clean Catch Urine Culture - Final Escherichia Coli Complete Laboratory Tests 12/26/16 05:25: White Blood Count 5.9, Red Blood Count 2.22L, Hemoglobin 7.1L, Hematocrit 22.5L , Mean Corpuscular Volume 102H, Mean Corpuscular Hemoglobin 31.9H, Mean Corpuscular Hemoglobin Concent 31.4L, Red Cell Distribution Width 15.1H, Platelet Count 100L, Mean Platelet Volume 6.2L, Neutrophils (%) (Auto) , Lymphocytes (%) (Auto) , Monocytes (%) (Auto) , Eosinophils (%) (Auto) , Basophils (%) (Auto) , Differential Total Cells Counted 100, Neutrophils % ( Manual) 53, Lymphocytes % (Manual) 27, Monocytes % (Manual) 10, Eosinophils % ( Manual) 10H, Basophils % (Manual) 0, Band Neutrophils 0, Platelet Estimate DecreasedL, Platelet Morphology Normal, Hypochromasia 1+, Anisocytosis 1+, Macrocytosis 1+, Prothrombin Time 14.4H, Prothromb Time International Ratio 1.4H , Activated Partial Thromboplast Time 37H, Sodium Level 144, Potassium Level 2.7 *L, Chloride Level 121H, Carbon Dioxide Level 14L, Anion Gap 9, Blood Urea Nitrogen 13, Creatinine 1.0H, Estimat Glomerular Filtration Rate , Glucose Level 91, Calcium Level 5.7#*L, Phosphorus Level 1.5L, Magnesium Level 1.2L, Total Bilirubin 0.5, Aspartate Amino Transf (AST/SGOT) 26, Alanine Aminotransferase (ALT/SGPT) 8, Alkaline Phosphatase 100, Total Protein 3.7#L, Albumin 1.5L, Globulin 2.2, Albumin/Globulin Ratio 0.6L 12/26/16 09:05: White Blood Count 5.8, Red Blood Count 2.53L, Hemoglobin 7.8L, Hematocrit 25.8L , Mean Corpuscular Volume 102H, Mean Corpuscular Hemoglobin 30.8, Mean Corpuscular Hemoglobin Concent 30.1L, Red Cell Distribution Width 15.4H, Platelet Count 115L, Mean Platelet Volume 7.0, Neutrophils (%) (Auto) , Lymphocytes (%) (Auto) , Monocytes (%) (Auto) , Eosinophils (%) (Auto) , Basophils (%) (Auto) , Differential Total Cells Counted 100, Neutrophils % ( Manual) 61, Lymphocytes % (Manual) 20, Monocytes % (Manual) 11H, Eosinophils % ( Manual) 8H, Basophils % (Manual) 0, Band Neutrophils 0, Platelet Estimate DecreasedL, Platelet Morphology Normal, Hypochromasia 1+, Macrocytosis 1+, Sodium Level 138, Potassium Level 4.3#, Chloride Level 110H, Carbon Dioxide Level 18L, Anion Gap 10, Blood Urea Nitrogen 19, Creatinine 1.7#H, Estimat Glomerular Filtration Rate , Glucose Level 182H, Calcium Level 9.3# 12/26/16 09:52: Phosphorus Level 2.4L, Magnesium Level 1.5L Current Medications Medications (Trade) Dose Ordered Sig/Pavel Route PRN Reason Start Time Stop Time Status Last Admin Dose Admin Acetaminophen (Tylenol) 650 mg Q4H PRN ORAL fever 12/24/16 15:00 01/23/17 14:59 12/26/16 09:24 Albuterol/ Ipratropium (DuoNeb 0.5-3(2.5)mg/3ml) 3 ml Q4H PRN HHN Shortness of Breath 12/24/16 15:00 12/29/16 14:59 Chlorhexidine Gluconate (Dianne-Hex 2%) 1 applic DAILY TOPIC 12/25/16 09:00 01/24/17 08:59 12/26/16 08:34 Clotrimazole (Lotrimin) 1 applic EVERY 12 HOURS TOPIC 12/25/16 10:00 01/24/17 09:59 12/26/16 08:35 Dextrose (Dextrose 50%) STAT PRN IV Hypoglycemia 12/24/16 15:00 01/23/17 14:59 Heparin Sodium (Porcine) (Heparin 5000 units/ml) 5,000 units EVERY 12 HOURS SUBQ 12/24/16 21:00 01/23/17 20:59 12/25/16 22:16 Insulin Aspart (NovoLOG) BEFORE MEALS AND HS SUBQ 12/24/16 16:30 01/23/17 16:29 12/26/16 11:30 Lactulose (Cephulac) 30 gm THREE TIMES A DAY ORAL 12/25/16 09:00 01/24/17 08:59 12/26/16 13:23 Meropenem 1 gm/ Sodium Chloride 110 ml @ 220 mls/hr Q12HR IVPB 12/25/16 16:00 12/30/16 15:59 12/26/16 08:36 Morphine Sulfate (Morphine Sulfate) 2 mg Q4H PRN IVP Moderate Pain (Pain Scale 4-6) 12/24/16 15:00 12/31/16 14:59 Nitroglycerin (Ntg) 0.4 mg Every 5 Minutes PRN SL Prn Chest Pain 12/24/16 15:00 01/23/17 14:59 Nystatin (Nystop Powder) 1 applic THREE TIMES A DAY TOPIC 12/25/16 13:00 01/24/17 12:59 12/26/16 12:32 Olanzapine (ZyPREXA) 5 mg BEDTIME ORAL 12/25/16 21:00 01/24/17 20:59 12/25/16 22:07 Ondansetron HCl (Zofran) 4 mg Q6H PRN IVP Nausea & Vomiting 12/24/16 15:00 01/23/17 14:59 Polyethylene Glycol (Miralax) 17 gm DAILYPRN PRN ORAL Constipation 12/24/16 15:00 01/23/17 14:59 Sodium Chloride 1,000 ml @ 75 mls/hr [id number] IV 12/24/16 15:30 01/23/17 15:29 12/26/16 07:40 Temazepam (Restoril) 15 mg HSPRN PRN ORAL Insomnia 12/24/16 15:00 12/31/16 14:59 DIONI TRIANA Dec 26, 2016 15:09
--- NOTE | 2016-12-26 15:17 | General Progress Note ---
Assessment/Plan Assessment/Plan Assessment - DURANT, with cirrhosis - rising CEA - ? source (GI vs other) - d/w DTR --> requests w/u - Anemia - Heme (+) Stools - Functional decline Recommendations - Check CXR - Check AFP -- nl - Consider [employer] eval - EGD/Colon Mon or Tu - will check for lab availability - clears - lactulose Subjective Allergies: Coded Allergies: PENICILLINS (Unverified Allergy, Unknown, 03/22/15) Subjective feels OK no new complaints (+) loose BM (On lactulose) OB (+) Objective Last 24 Hour Vital Signs Date Time Temp Pulse Resp B/P (MAP) Pulse Ox O2 Delivery O2 Flow Rate FiO2 12/26/16 12:00 97.8 121 20 144/73 94 Room Air 12/26/16 08:10 118 20 Room Air 12/26/16 08:00 97.9 125 19 123/72 97 Room Air 12/26/16 04:00 98.4 110 20 129/57 97 Room Air 12/26/16 04:00 113 12/26/16 00:00 118 12/26/16 00:00 98.2 114 22 107/77 98 12/25/16 20:00 119 12/25/16 20:00 97.3 118 22 148/81 92 Room Air 12/25/16 19:44 120 20 Room Air 12/25/16 16:00 119 12/25/16 16:00 97.9 115 18 142/77 98 Room Air Intake and Output 12/26/16 12/27/16 19:00 07:00 # Bowel Movements 1 Laboratory Tests 12/26/16 05:25: White Blood Count 5.9, Red Blood Count 2.22L, Hemoglobin 7.1L, Hematocrit 22.5L , Mean Corpuscular Volume 102H, Mean Corpuscular Hemoglobin 31.9H, Mean Corpuscular Hemoglobin Concent 31.4L, Red Cell Distribution Width 15.1H, Platelet Count 100L, Mean Platelet Volume 6.2L, Neutrophils (%) (Auto) , Lymphocytes (%) (Auto) , Monocytes (%) (Auto) , Eosinophils (%) (Auto) , Basophils (%) (Auto) , Differential Total Cells Counted 100, Neutrophils % ( Manual) 53, Lymphocytes % (Manual) 27, Monocytes % (Manual) 10, Eosinophils % ( Manual) 10H, Basophils % (Manual) 0, Band Neutrophils 0, Platelet Estimate DecreasedL, Platelet Morphology Normal, Hypochromasia 1+, Anisocytosis 1+, Macrocytosis 1+, Prothrombin Time 14.4H, Prothromb Time International Ratio 1.4H , Activated Partial Thromboplast Time 37H, Sodium Level 144, Potassium Level 2.7 *L, Chloride Level 121H, Carbon Dioxide Level 14L, Anion Gap 9, Blood Urea Nitrogen 13, Creatinine 1.0H, Estimat Glomerular Filtration Rate , Glucose Level 91, Calcium Level 5.7#*L, Phosphorus Level 1.5L, Magnesium Level 1.2L, Total Bilirubin 0.5, Aspartate Amino Transf (AST/SGOT) 26, Alanine Aminotransferase (ALT/SGPT) 8, Alkaline Phosphatase 100, Total Protein 3.7#L, Albumin 1.5L, Globulin 2.2, Albumin/Globulin Ratio 0.6L 12/26/16 09:05: White Blood Count 5.8, Red Blood Count 2.53L, Hemoglobin 7.8L, Hematocrit 25.8L , Mean Corpuscular Volume 102H, Mean Corpuscular Hemoglobin 30.8, Mean Corpuscular Hemoglobin Concent 30.1L, Red Cell Distribution Width 15.4H, Platelet Count 115L, Mean Platelet Volume 7.0, Neutrophils (%) (Auto) , Lymphocytes (%) (Auto) , Monocytes (%) (Auto) , Eosinophils (%) (Auto) , Basophils (%) (Auto) , Differential Total Cells Counted 100, Neutrophils % ( Manual) 61, Lymphocytes % (Manual) 20, Monocytes % (Manual) 11H, Eosinophils % ( Manual) 8H, Basophils % (Manual) 0, Band Neutrophils 0, Platelet Estimate DecreasedL, Platelet Morphology Normal, Hypochromasia 1+, Macrocytosis 1+, Sodium Level 138, Potassium Level 4.3#, Chloride Level 110H, Carbon Dioxide Level 18L, Anion Gap 10, Blood Urea Nitrogen 19, Creatinine 1.7#H, Estimat Glomerular Filtration Rate , Glucose Level 182H, Calcium Level 9.3# 12/26/16 09:52: Phosphorus Level 2.4L, Magnesium Level 1.5L Height (Feet): 5 Height (Inches): 5.00 Weight (Pounds): 234 Objective Obese WW NCAT supple CTA RR Soft ND NT trace edema non focal KIERSTEN DAVIES Dec 26, 2016 15:17
--- NOTE | 2016-12-26 15:19 | General Progress Note ---
Assessment/Plan Status: stable, progressing Assessment/Plan cont current meds Subjective Neurologic/Psychiatric: Reports: anxiety, emotional problems Allergies: Coded Allergies: PENICILLINS (Unverified Allergy, Unknown, 03/22/15) Subjective the pt still confused and anxious. Objective Last 24 Hour Vital Signs Date Time Temp Pulse Resp B/P (MAP) Pulse Ox O2 Delivery O2 Flow Rate FiO2 12/26/16 12:00 97.8 121 20 144/73 94 Room Air 12/26/16 08:10 118 20 Room Air 12/26/16 08:00 97.9 125 19 123/72 97 Room Air 12/26/16 04:00 98.4 110 20 129/57 97 Room Air 12/26/16 04:00 113 12/26/16 00:00 118 12/26/16 00:00 98.2 114 22 107/77 98 12/25/16 20:00 119 12/25/16 20:00 97.3 118 22 148/81 92 Room Air 12/25/16 19:44 120 20 Room Air 12/25/16 16:00 119 12/25/16 16:00 97.9 115 18 142/77 98 Room Air Intake and Output 12/26/16 12/27/16 19:00 07:00 # Bowel Movements 1 Laboratory Tests 12/26/16 05:25: White Blood Count 5.9, Red Blood Count 2.22L, Hemoglobin 7.1L, Hematocrit 22.5L , Mean Corpuscular Volume 102H, Mean Corpuscular Hemoglobin 31.9H, Mean Corpuscular Hemoglobin Concent 31.4L, Red Cell Distribution Width 15.1H, Platelet Count 100L, Mean Platelet Volume 6.2L, Neutrophils (%) (Auto) , Lymphocytes (%) (Auto) , Monocytes (%) (Auto) , Eosinophils (%) (Auto) , Basophils (%) (Auto) , Differential Total Cells Counted 100, Neutrophils % ( Manual) 53, Lymphocytes % (Manual) 27, Monocytes % (Manual) 10, Eosinophils % ( Manual) 10H, Basophils % (Manual) 0, Band Neutrophils 0, Platelet Estimate DecreasedL, Platelet Morphology Normal, Hypochromasia 1+, Anisocytosis 1+, Macrocytosis 1+, Prothrombin Time 14.4H, Prothromb Time International Ratio 1.4H , Activated Partial Thromboplast Time 37H, Sodium Level 144, Potassium Level 2.7 *L, Chloride Level 121H, Carbon Dioxide Level 14L, Anion Gap 9, Blood Urea Nitrogen 13, Creatinine 1.0H, Estimat Glomerular Filtration Rate , Glucose Level 91, Calcium Level 5.7#*L, Phosphorus Level 1.5L, Magnesium Level 1.2L, Total Bilirubin 0.5, Aspartate Amino Transf (AST/SGOT) 26, Alanine Aminotransferase (ALT/SGPT) 8, Alkaline Phosphatase 100, Total Protein 3.7#L, Albumin 1.5L, Globulin 2.2, Albumin/Globulin Ratio 0.6L 12/26/16 09:05: White Blood Count 5.8, Red Blood Count 2.53L, Hemoglobin 7.8L, Hematocrit 25.8L , Mean Corpuscular Volume 102H, Mean Corpuscular Hemoglobin 30.8, Mean Corpuscular Hemoglobin Concent 30.1L, Red Cell Distribution Width 15.4H, Platelet Count 115L, Mean Platelet Volume 7.0, Neutrophils (%) (Auto) , Lymphocytes (%) (Auto) , Monocytes (%) (Auto) , Eosinophils (%) (Auto) , Basophils (%) (Auto) , Differential Total Cells Counted 100, Neutrophils % ( Manual) 61, Lymphocytes % (Manual) 20, Monocytes % (Manual) 11H, Eosinophils % ( Manual) 8H, Basophils % (Manual) 0, Band Neutrophils 0, Platelet Estimate DecreasedL, Platelet Morphology Normal, Hypochromasia 1+, Macrocytosis 1+, Sodium Level 138, Potassium Level 4.3#, Chloride Level 110H, Carbon Dioxide Level 18L, Anion Gap 10, Blood Urea Nitrogen 19, Creatinine 1.7#H, Estimat Glomerular Filtration Rate , Glucose Level 182H, Calcium Level 9.3# 12/26/16 09:52: Phosphorus Level 2.4L, Magnesium Level 1.5L Height (Feet): 5 Height (Inches): 5.00 Weight (Pounds): 234 General Appearance: no apparent distress, alert, confused, obese Neurologic: alert, responsive, disoriented, depressed affect Oj Medel M.D. Dec 26, 2016 15:19
--- NOTE | 2016-12-26 15:42 | Internal Med Progress Note ---
Subjective Physician Name Rl Tee Attending Physician Rl Tee MD Current Medications Medications (Trade) Dose Ordered Sig/Pavel Route PRN Reason Start Time Stop Time Status Last Admin Dose Admin Acetaminophen (Tylenol) 650 mg Q4H PRN ORAL fever 12/24/16 15:00 01/23/17 14:59 12/26/16 09:24 Albuterol/ Ipratropium (DuoNeb 0.5-3(2.5)mg/3ml) 3 ml Q4H PRN HHN Shortness of Breath 12/24/16 15:00 12/29/16 14:59 Chlorhexidine Gluconate (Dianne-Hex 2%) 1 applic DAILY TOPIC 12/25/16 09:00 01/24/17 08:59 12/26/16 08:34 Clotrimazole (Lotrimin) 1 applic EVERY 12 HOURS TOPIC 12/25/16 10:00 01/24/17 09:59 12/26/16 08:35 Dextrose (Dextrose 50%) STAT PRN IV Hypoglycemia 12/24/16 15:00 01/23/17 14:59 Heparin Sodium (Porcine) (Heparin 5000 units/ml) 5,000 units EVERY 12 HOURS SUBQ 12/24/16 21:00 01/23/17 20:59 12/25/16 22:16 Insulin Aspart (NovoLOG) BEFORE MEALS AND HS SUBQ 12/24/16 16:30 01/23/17 16:29 12/26/16 11:30 Lactulose (Cephulac) 30 gm THREE TIMES A DAY ORAL 12/25/16 09:00 01/24/17 08:59 12/26/16 13:23 Magnesium Sulfate 100 ml @ 100 mls/hr Q1H IVPB 12/26/16 16:00 12/26/16 17:59 Morphine Sulfate (Morphine Sulfate) 2 mg Q4H PRN IVP Moderate Pain (Pain Scale 4-6) 12/24/16 15:00 12/31/16 14:59 Nitroglycerin (Ntg) 0.4 mg Every 5 Minutes PRN SL Prn Chest Pain 12/24/16 15:00 01/23/17 14:59 Nystatin (Nystop Powder) 1 applic THREE TIMES A DAY TOPIC 12/25/16 13:00 01/24/17 12:59 12/26/16 12:32 Olanzapine (ZyPREXA) 5 mg BEDTIME ORAL 12/25/16 21:00 01/24/17 20:59 12/25/16 22:07 Ondansetron HCl (Zofran) 4 mg Q6H PRN IVP Nausea & Vomiting 12/24/16 15:00 01/23/17 14:59 Polyethylene Glycol (Miralax) 17 gm DAILYPRN PRN ORAL Constipation 12/24/16 15:00 01/23/17 14:59 Sodium Chloride 1,000 ml @ 75 mls/hr [id number] IV 12/24/16 15:30 01/23/17 15:29 12/26/16 07:40 Sodium Phosphate 20 mm/Sodium Chloride 281.6667 ml @ 46.9 mls/hr ONCE ONCE IV 12/26/16 16:15 12/26/16 22:15 Temazepam (Restoril) 15 mg HSPRN PRN ORAL Insomnia 12/24/16 15:00 12/31/16 14:59 Allergies: Coded Allergies: PENICILLINS (Unverified Allergy, Unknown, 03/22/15) Subjective awake, alert, responsive, NAD Objective Last Vital Signs Date Time Temp Pulse Resp B/P (MAP) Pulse Ox O2 Delivery O2 Flow Rate FiO2 12/26/16 12:00 97.8 121 20 144/73 94 Room Air Laboratory Tests Test 12/26/16 05:25 12/26/16 09:05 12/26/16 09:52 White Blood Count 5.9 K/UL (4.8-10.8) 5.8 K/UL (4.8-10.8) Red Blood Count 2.22 M/UL (4.20-5.40) L 2.53 M/UL (4.20-5.40) L Hemoglobin 7.1 G/DL (12.0-16.0) L 7.8 G/DL (12.0-16.0) L Hematocrit 22.5 % (37.0-47.0) L 25.8 % (37.0-47.0) L Mean Corpuscular Volume 102 FL (80-99) H 102 FL (80-99) H Mean Corpuscular Hemoglobin 31.9 PG (27.0-31.0) H 30.8 PG (27.0-31.0) Mean Corpuscular Hemoglobin Concent 31.4 G/DL (32.0-36.0) L 30.1 G/DL (32.0-36.0) L Red Cell Distribution Width 15.1 % (11.6-14.8) H 15.4 % (11.6-14.8) H Platelet Count 100 K/UL (150-450) L 115 K/UL (150-450) L Mean Platelet Volume 6.2 FL (6.5-10.1) L 7.0 FL (6.5-10.1) Neutrophils (%) (Auto) % (45.0-75.0) % (45.0-75.0) Lymphocytes (%) (Auto) % (20.0-45.0) % (20.0-45.0) Monocytes (%) (Auto) % (1.0-10.0) % (1.0-10.0) Eosinophils (%) (Auto) % (0.0-3.0) % (0.0-3.0) Basophils (%) (Auto) % (0.0-2.0) % (0.0-2.0) Differential Total Cells Counted 100 100 Neutrophils % (Manual) 53 % (45-75) 61 % (45-75) Lymphocytes % (Manual) 27 % (20-45) 20 % (20-45) Monocytes % (Manual) 10 % (1-10) 11 % (1-10) H Eosinophils % (Manual) 10 % (0-3) H 8 % (0-3) H Basophils % (Manual) 0 % (0-2) 0 % (0-2) Band Neutrophils 0 % (0-8) 0 % (0-8) Platelet Estimate Decreased L Decreased L Platelet Morphology Normal Normal Hypochromasia 1+ 1+ Anisocytosis 1+ Macrocytosis 1+ 1+ Prothrombin Time 14.4 SEC (9.30-11.50) H Prothromb Time International Ratio 1.4 (0.9-1.1) H Activated Partial Thromboplast Time 37 SEC (23-33) H Sodium Level 144 mEQ/L (135-145) 138 mEQ/L (135-145) Potassium Level 2.7 mEQ/L (3.4-4.9) *L 4.3 mEQ/L (3.4-4.9) # Chloride Level 121 mEQ/L (98-107) H 110 mEQ/L (98-107) H Carbon Dioxide Level 14 mEQ/L (20-30) L 18 mEQ/L (20-30) L Anion Gap 9 (5-15) 10 (5-15) Blood Urea Nitrogen 13 mg/dL (7-23) 19 mg/dL (7-23) Creatinine 1.0 mg/dL (0.5-0.9) H 1.7 mg/dL (0.5-0.9) #H Estimat Glomerular Filtration Rate mL/min (>60) mL/min (>60) Glucose Level 91 mg/dL (74-106) 182 mg/dL (74-106) H Calcium Level 5.7 mg/dL (8.6-10.2) #*L 9.3 mg/dL (8.6-10.2) # Phosphorus Level 1.5 mg/dL (2.5-4.8) L 2.4 mg/dL (2.5-4.8) L Magnesium Level 1.2 mg/dL (1.7-2.5) L 1.5 mg/dL (1.7-2.5) L Total Bilirubin 0.5 mg/dL (0.0-1.2) Aspartate Amino Transf (AST/SGOT) 26 U/L (5-40) Alanine Aminotransferase (ALT/SGPT) 8 U/L (3-33) Alkaline Phosphatase 100 U/L (35-104) Total Protein 3.7 g/dL (6.6-8.7) #L Albumin 1.5 g/dL (3.5-5.2) L Globulin 2.2 g/dL Albumin/Globulin Ratio 0.6 (1.0-2.7) L Microbiology Date/Time Source Procedure Growth Status 12/24/16 20:00 Blood Blood Culture - Preliminary NO GROWTH AFTER 24 HOURS Resulted 12/24/16 19:50 Blood Blood Culture - Preliminary NO GROWTH AFTER 24 HOURS Resulted 12/24/16 10:55 Blood Blood Culture - Preliminary NO GROWTH AFTER 24 HOURS Resulted 12/25/16 12:00 Indwelling Cath Urine Culture - Preliminary Resulted 12/24/16 10:10 Urine,Clean Catch Urine Culture - Final Escherichia Coli Complete Intake and Output 12/26/16 12/27/16 19:00 07:00 # Bowel Movements 1 Objective General: No acute distress, awake and alert HEENT: NCAT, sclera anicteric, PERRL, EOMI. Neck: Supple, no significant jugular venous distention, Lungs: fair inspiratory effort, no accessory muscle use, clear to auscultation bilaterally, no Wheeze or Rales. Heart: Regular rate and rhythm distant heart sound, normal S1/S2, no murmurs Abdomen: soft, nontender, nondistended. Normoactive bowel sounds. morbid obesity. Extremities: No Cyanosis , clubbing or edema. Left UE Picc line. Neuro: A&O x 3, Able to move all extremities Skin: warm, no rashes, + Upper extremities ecchymosis. Psych: Normal mood and affect Assessment/Plan Assessment/Plan 1. Hepatic encephalopathy. 2. Recurrent urinary tract infection with E. Coli, urine culture is growing gram-negative rods. 3. History of chronic kidney disease. 4. History of hypercalcemia. 5. Diabetes Type 2 6. Morbid Obesity. 7. Cirrhosis. 8. YELENA PLAN: 1. Dc meropenem , start Rocephin. 2. f/U with GI recommendations. 3. Monitor labs and cultures. 4. PT Mobility. Rl Tee MD Dec 26, 2016 15:42
[2016-12-26 16:00] VITALS: BP 153/66
[2016-12-26] MEDS ORDERED: Sodium Phosphate 20 MM in NS 275 ML IV ONE ×2 (16:15→20:00)
[2016-12-26] MEDS: cefTRIAXone 1 GM in D5W 55 ML IVPB SCH (18:24)
[2016-12-26 20:05] VITALS: BP 148/81
[2016-12-26] MEDS: Morphine Sulfate 2mg/ml Inj IVP PRN (23:06)
[2016-12-27] VITALS (7 sets, daily range): BP systolic 121–153; BP diastolic 66–93
[2016-12-27] MEDS: Morphine Sulfate 2mg/ml Inj IVP PRN (05:22)
[2016-12-27] MEDS: NovoLOG Insulin Flexpen SUBQ SCH ×4 (06:50→20:27)
--- NOTE | 2016-12-27 07:35 | Pulmonology Progress Note ---
Assessment/Plan Assessment/Plan ASSESSMENT Acute toxic metabolic encephalopathy ( due to sepsis) UTI DM HTN Anemia of chronic disease, requiring blood transfusion elevated CEA DURANT with cirrhosis Acute renal failure e/lyte imbalance (hypo K, hypo Mg. hypo P) YELENA obesity MDD Delirium PLAN OF CARE tele monitor renal parameters, lytes, avoid nephrotoxic, s/p lytes replacement Abx, ID follows Urine cx + Ecoli, blood cx preliminary negative GI follows s/p blood transfusion, goal to keep Hgb above 8, stool OB +, elevated CEA EGD and colon plan tentatively on Thursday GI prophylaxis started on lactulose, check ammonia CT A/P with evidence of hepatic cirrhosis and new area of low attenuation at liver, aFP WNL DVT prophylaxis CXR negative O2 HN prn BiPAP at night for YELENA, patient agrees case discussed and evaluated by supervising physician Subjective Allergies: Coded Allergies: PENICILLINS (Unverified Allergy, Unknown, 03/22/15) Subjective denies chest pain, SOB on O2 via NC no signs of respiratory distress HH up after blood transfixion lytes ( P and mg) stable after replacement Objective Last 24 Hour Vital Signs Date Time Temp Pulse Resp B/P (MAP) Pulse Ox O2 Delivery O2 Flow Rate FiO2 12/27/16 05:52 97.9 12/27/16 04:00 97.9 117 18 153/80 98 Nasal Cannula 2.0 12/27/16 04:00 111 12/27/16 00:00 116 12/27/16 00:00 97.9 116 20 126/66 97 Nasal Cannula 2.0 12/26/16 20:05 97.7 113 20 148/81 100 Nasal Cannula 2.0 12/26/16 20:00 108 12/26/16 19:51 97 20 Room Air 12/26/16 16:00 98.0 120 20 153/66 97 Nasal Cannula 2.0 12/26/16 16:00 114 12/26/16 12:04 121 12/26/16 12:00 97.8 121 20 144/73 94 Room Air 12/26/16 08:10 118 20 Room Air 12/26/16 08:00 97.9 125 19 123/72 97 Room Air 12/26/16 08:00 128 General Appearance: no acute distress, other - awake, alert, morbidly obese female in NAD HEENT: atraumatic, anicteric, mucous membranes moist, other - O2 via NC Respiratory/Chest: lungs clear - with moderate air entry , no respiratory distress Cardiovascular: regular rhythm, tachycardia - ST on tele Abdomen: normal bowel sounds, soft, non tender - obese Extremities: no edema Neurologic/Psychiatric: abnormal gait, alert, responsive Microbiology Date/Time Source Procedure Growth Status 12/24/16 20:00 Blood Blood Culture - Preliminary NO GROWTH AFTER 48 HOURS Resulted 12/24/16 19:50 Blood Blood Culture - Preliminary NO GROWTH AFTER 48 HOURS Resulted 12/24/16 10:55 Blood Blood Culture - Preliminary Resulted 12/25/16 12:00 Indwelling Cath Urine Culture - Preliminary Gram Negative Zaid Resulted 12/24/16 10:10 Urine,Clean Catch Urine Culture - Final Escherichia Coli Complete Laboratory Tests 12/26/16 09:05: White Blood Count 5.8, Red Blood Count 2.53L, Hemoglobin 7.8L, Hematocrit 25.8L , Mean Corpuscular Volume 102H, Mean Corpuscular Hemoglobin 30.8, Mean Corpuscular Hemoglobin Concent 30.1L, Red Cell Distribution Width 15.4H, Platelet Count 115L, Mean Platelet Volume 7.0, Neutrophils (%) (Auto) , Lymphocytes (%) (Auto) , Monocytes (%) (Auto) , Eosinophils (%) (Auto) , Basophils (%) (Auto) , Differential Total Cells Counted 100, Neutrophils % ( Manual) 61, Lymphocytes % (Manual) 20, Monocytes % (Manual) 11H, Eosinophils % ( Manual) 8H, Basophils % (Manual) 0, Band Neutrophils 0, Platelet Estimate DecreasedL, Platelet Morphology Normal, Hypochromasia 1+, Macrocytosis 1+, Sodium Level 138, Potassium Level 4.3#, Chloride Level 110H, Carbon Dioxide Level 18L, Anion Gap 10, Blood Urea Nitrogen 19, Creatinine 1.7#H, Estimat Glomerular Filtration Rate , Glucose Level 182H, Calcium Level 9.3# 12/26/16 09:52: Phosphorus Level 2.4L, Magnesium Level 1.5L 12/27/16 05:20: White Blood Count [Pending], Red Blood Count [Pending], Hemoglobin [Pending], Hematocrit [Pending], Mean Corpuscular Volume [Pending], Mean Corpuscular Hemoglobin [Pending], Mean Corpuscular Hemoglobin Concent [Pending], Red Cell Distribution Width [Pending], Platelet Count [Pending], Mean Platelet Volume [ Pending], Neutrophils (%) (Auto) [Pending], Lymphocytes (%) (Auto) [Pending], Monocytes (%) (Auto) [Pending], Eosinophils (%) (Auto) [Pending], Basophils (%) (Auto) [Pending], Sodium Level [Pending], Potassium Level [Pending], Chloride Level [Pending], Carbon Dioxide Level [Pending], Blood Urea Nitrogen [Pending], Creatinine [Pending], Estimat Glomerular Filtration Rate [Pending], Glucose Level [Pending], Calcium Level [Pending], Phosphorus Level [Pending], Magnesium Level [Pending], Hemoglobin A1c [Pending], Total Bilirubin [Pending], Aspartate Amino Transf (AST/SGOT) [Pending], Alanine Aminotransferase (ALT/SGPT) [Pending] , Alkaline Phosphatase [Pending], Ammonia [Pending], Total Protein [Pending], Albumin [Pending], Globulin [Pending] Current Medications Medications (Trade) Dose Ordered Sig/Pavel Route PRN Reason Start Time Stop Time Status Last Admin Dose Admin Acetaminophen (Tylenol) 650 mg Q4H PRN ORAL fever 12/24/16 15:00 01/23/17 14:59 12/26/16 09:24 Albuterol/ Ipratropium (DuoNeb 0.5-3(2.5)mg/3ml) 3 ml Q4H PRN HHN Shortness of Breath 12/24/16 15:00 12/29/16 14:59 Ceftriaxone Sodium 1 gm/ Dextrose 55 ml @ 110 mls/hr Q24H IVPB 12/26/16 17:00 01/02/17 16:59 12/26/16 18:24 Chlorhexidine Gluconate (Dianne-Hex 2%) 1 applic DAILY TOPIC 12/25/16 09:00 01/24/17 08:59 12/26/16 08:34 Clotrimazole (Lotrimin) 1 applic EVERY 12 HOURS TOPIC 12/25/16 10:00 01/24/17 09:59 12/26/16 21:00 Dextrose (Dextrose 50%) STAT PRN IV Hypoglycemia 12/24/16 15:00 01/23/17 14:59 Heparin Sodium (Porcine) (Heparin 5000 units/ml) 5,000 units EVERY 12 HOURS SUBQ 12/24/16 21:00 01/23/17 20:59 12/25/16 22:16 Insulin Aspart (NovoLOG) BEFORE MEALS AND HS SUBQ 12/24/16 16:30 01/23/17 16:29 12/27/16 06:50 Lactulose (Cephulac) 30 gm THREE TIMES A DAY ORAL 12/25/16 09:00 01/24/17 08:59 12/26/16 18:57 Morphine Sulfate (Morphine Sulfate) 2 mg Q4H PRN IVP Moderate Pain (Pain Scale 4-6) 12/24/16 15:00 12/31/16 14:59 12/27/16 05:22 Nitroglycerin (Ntg) 0.4 mg Every 5 Minutes PRN SL Prn Chest Pain 12/24/16 15:00 01/23/17 14:59 Nystatin (Nystop Powder) 1 applic THREE TIMES A DAY TOPIC 12/25/16 13:00 01/24/17 12:59 12/26/16 17:37 Olanzapine (ZyPREXA) 5 mg BEDTIME ORAL 12/25/16 21:00 01/24/17 20:59 12/26/16 20:15 Ondansetron HCl (Zofran) 4 mg Q6H PRN IVP Nausea & Vomiting 12/24/16 15:00 01/23/17 14:59 12/27/16 05:21 Polyethylene Glycol (Miralax) 17 gm DAILYPRN PRN ORAL Constipation 12/24/16 15:00 01/23/17 14:59 Sodium Chloride 1,000 ml @ 75 mls/hr [id number] IV 12/24/16 15:30 01/23/17 15:29 12/26/16 20:00 Temazepam (Restoril) 15 mg HSPRN PRN ORAL Insomnia 12/24/16 15:00 12/31/16 14:59 Chana Chne NP (Vanchtein) Dec 27, 2016 07:35
[2016-12-27 07:51] LABS: MEAN CORPUSCULAR HEMOGLOBIN 32.9 PG (27.0-31.0); MEAN CORPUSCULAR HGB CONC 32.4 G/DL (32.0-36.0); MEAN CORPUSCULAR VOLUME 101 FL (80-99); PLATELET COUNT 96 K/UL (150-450); RED BLOOD COUNT 2.98 M/UL (4.20-5.40); RED CELL DISTRIBUTION WIDTH 15.1 % (11.6-14.8); WHITE BLOOD COUNT 5.6 K/UL (4.8-10.8)
[2016-12-27 08:06] LABS: ALANINE AMINOTRANSFERASE 14 U/L (3-33); ALBUMIN/GLOBULIN RATIO 0.6 (1.0-2.7); ANION GAP 12 (5-15); ASPARTATE AMINO TRANSFERASE 50 U/L (5-40); CALCIUM 9.6 mg/dL (8.6-10.2); CARBON DIOXIDE 20 mEQ/L (20-30); CHLORIDE 110 mEQ/L (98-107); CREATININE 1.6 mg/dL (0.5-0.9); HEMOLYSIS 6; MAGNESIUM 2.2 mg/dL (1.7-2.5); PHOSPHORUS 3.5 mg/dL (2.5-4.8); POTASSIUM 3.9 mEQ/L (3.4-4.9); SODIUM 142 mEQ/L (135-145); TOTAL PROTEIN 6.7 g/dL (6.6-8.7)
[2016-12-27 08:35] LABS: BILIRUBIN,DIRECT 0.5 mg/dL (0.1-0.3)
[2016-12-27] MEDS: Heparin 5000 units/ml inj SUBQ SCH ×2 (08:50→21:00)
[2016-12-27] MEDS: Lactulose 20gm/30ml UDC ORAL SCH ×3 (08:51→17:58)
[2016-12-27] MEDS: Dyna-Hex 2% Top Sol 8oz TOPIC SCH (08:51)
[2016-12-27] MEDS: Nystatin Powder 100,000 units/gm 15gm TOPIC SCH ×3 (08:52→17:57)
[2016-12-27 10:07] LABS: BAND NEUTROPHILS % (MANUAL) 2 % (0-8); BASOPHILS % (MANUAL) 1 % (0-2); EOSINOPHILS % (MANUAL) 11 % (0-3); LYMPHOCYTES % (MANUAL) 28 % (20-45); NEUTROPHILS % (MANUAL) 57 % (45-75); TOTAL CELLS COUNTED 100
[2016-12-27 10:08] LABS: PLATELET ESTIMATE DECREASED; PLATELET MORPHOLOGY NORMAL
--- NOTE | 2016-12-27 10:27 | Infectious Diseases Prog Note ---
Assessment/Plan Assessment/Plan ASSESSMENT: The patient is a 76-year-old female with: Status post encephalopathy due to sepsis. History of pneumonia. Recurrent urinary tract infection. History of proximal ureteral stone with mild left hydronephrosis in 2016. +ve blood Cx : GPC 1/3 ( m/l contaminant ) CKD. Diabetes. Obesity History of penicillin allergy, however, the patient has tolerated Carbapenem in the past Cirrhosis. Splenomegaly. PLAN: We will continue the patient on Rocephin d# 2 / 10 , upon DC will change to Keflex to complete the course, will start pt on IV Vanco d# 1 for now SP Merrem d# 2 Monitor CBC. Monitor BMP. Monitor cultures. ( Bl and Ur ) Subjective Constitutional: Denies: no symptoms, fever, chills, fatigue, anorexia, drenching sweats, other Allergies: Coded Allergies: PENICILLINS (Unverified Allergy, Unknown, 03/22/15) Objective Vital Signs Last 24 Hour Vital Signs Date Time Temp Pulse Resp B/P (MAP) Pulse Ox O2 Delivery O2 Flow Rate FiO2 12/27/16 08:36 97.9 125 20 121/93 100 Nasal Cannula 2.0 12/27/16 08:00 129 12/27/16 05:52 97.9 12/27/16 04:00 97.9 117 18 153/80 98 Nasal Cannula 2.0 12/27/16 04:00 111 12/27/16 00:00 116 12/27/16 00:00 97.9 116 20 126/66 97 Nasal Cannula 2.0 12/26/16 20:05 97.7 113 20 148/81 100 Nasal Cannula 2.0 12/26/16 20:00 108 12/26/16 19:51 97 20 Room Air 12/26/16 16:00 98.0 120 20 153/66 97 Nasal Cannula 2.0 12/26/16 16:00 114 12/26/16 12:04 121 12/26/16 12:00 97.8 121 20 144/73 94 Room Air Height (Feet): 5 Height (Inches): 5.00 Weight (Pounds): 234 HEENT: mucous membranes moist Respiratory/Chest: no respiratory distress Cardiovascular: regularly irregular Abdomen: soft, non tender Microbiology Date/Time Source Procedure Growth Status 12/24/16 20:00 Blood Blood Culture - Preliminary NO GROWTH AFTER 48 HOURS Resulted 12/24/16 19:50 Blood Blood Culture - Preliminary NO GROWTH AFTER 48 HOURS Resulted 12/24/16 10:55 Blood Blood Culture - Preliminary Resulted 12/25/16 12:00 Indwelling Cath Urine Culture - Preliminary Gram Negative Zaid Resulted Laboratory Tests Test 12/27/16 05:20 White Blood Count 5.6 K/UL (4.8-10.8) Red Blood Count 2.98 M/UL (4.20-5.40) L Hemoglobin 9.8 G/DL (12.0-16.0) L Hematocrit 30.2 % (37.0-47.0) L Mean Corpuscular Volume 101 FL (80-99) H Mean Corpuscular Hemoglobin 32.9 PG (27.0-31.0) H Mean Corpuscular Hemoglobin Concent 32.4 G/DL (32.0-36.0) Red Cell Distribution Width 15.1 % (11.6-14.8) H Platelet Count 96 K/UL (150-450) L Mean Platelet Volume 6.0 FL (6.5-10.1) L Neutrophils (%) (Auto) % (45.0-75.0) Lymphocytes (%) (Auto) % (20.0-45.0) Monocytes (%) (Auto) % (1.0-10.0) Eosinophils (%) (Auto) % (0.0-3.0) Basophils (%) (Auto) % (0.0-2.0) Differential Total Cells Counted 100 Neutrophils % (Manual) 57 % (45-75) Lymphocytes % (Manual) 28 % (20-45) Monocytes % (Manual) 1 % (1-10) Eosinophils % (Manual) 11 % (0-3) H Basophils % (Manual) 1 % (0-2) Band Neutrophils 2 % (0-8) Platelet Estimate Decreased L Platelet Morphology Normal Red Blood Cell Morphology Normal Sodium Level 142 mEQ/L (135-145) Potassium Level 3.9 mEQ/L (3.4-4.9) Chloride Level 110 mEQ/L (98-107) H Carbon Dioxide Level 20 mEQ/L (20-30) Anion Gap 12 (5-15) Blood Urea Nitrogen 17 mg/dL (7-23) Creatinine 1.6 mg/dL (0.5-0.9) H Estimat Glomerular Filtration Rate mL/min (>60) Glucose Level 193 mg/dL (74-106) H Hemoglobin A1c 4.7 % (< 6.0) Calcium Level 9.6 mg/dL (8.6-10.2) Phosphorus Level 3.5 mg/dL (2.5-4.8) Magnesium Level 2.2 mg/dL (1.7-2.5) Total Bilirubin 1.1 mg/dL (0.0-1.2) Direct Bilirubin 0.5 mg/dL (0.1-0.3) H Aspartate Amino Transf (AST/SGOT) 50 U/L (5-40) H Alanine Aminotransferase (ALT/SGPT) 14 U/L (3-33) Alkaline Phosphatase 173 U/L (35-104) H Ammonia 27 umol/L (11-51) Total Protein 6.7 g/dL (6.6-8.7) # Albumin 2.7 g/dL (3.5-5.2) L Globulin 4.0 g/dL Albumin/Globulin Ratio 0.6 (1.0-2.7) L Current Medications Medications (Trade) Dose Ordered Sig/Pavel Route PRN Reason Start Time Stop Time Status Last Admin Dose Admin Acetaminophen (Tylenol) 650 mg Q4H PRN ORAL fever 12/24/16 15:00 01/23/17 14:59 12/26/16 09:24 Albuterol/ Ipratropium (DuoNeb 0.5-3(2.5)mg/3ml) 3 ml Q4H PRN HHN Shortness of Breath 12/24/16 15:00 12/29/16 14:59 Ceftriaxone Sodium 1 gm/ Dextrose 55 ml @ 110 mls/hr Q24H IVPB 12/26/16 17:00 01/02/17 16:59 12/26/16 18:24 Chlorhexidine Gluconate (Dianne-Hex 2%) 1 applic DAILY TOPIC 12/25/16 09:00 01/24/17 08:59 12/27/16 08:51 Clotrimazole (Lotrimin) 1 applic EVERY 12 HOURS TOPIC 12/25/16 10:00 01/24/17 09:59 12/27/16 08:52 Dextrose (Dextrose 50%) STAT PRN IV Hypoglycemia 12/24/16 15:00 01/23/17 14:59 Heparin Sodium (Porcine) (Heparin 5000 units/ml) 5,000 units EVERY 12 HOURS SUBQ 12/24/16 21:00 01/23/17 20:59 12/25/16 22:16 Insulin Aspart (NovoLOG) BEFORE MEALS AND HS SUBQ 12/24/16 16:30 01/23/17 16:29 12/27/16 06:50 Lactulose (Cephulac) 30 gm THREE TIMES A DAY ORAL 12/25/16 09:00 01/24/17 08:59 12/27/16 08:51 Morphine Sulfate (Morphine Sulfate) 2 mg Q4H PRN IVP Moderate Pain (Pain Scale 4-6) 12/24/16 15:00 12/31/16 14:59 12/27/16 05:22 Nitroglycerin (Ntg) 0.4 mg Every 5 Minutes PRN SL Prn Chest Pain 12/24/16 15:00 01/23/17 14:59 Nystatin (Nystop Powder) 1 applic THREE TIMES A DAY TOPIC 12/25/16 13:00 01/24/17 12:59 12/27/16 08:52 Olanzapine (ZyPREXA) 5 mg BEDTIME ORAL 12/25/16 21:00 01/24/17 20:59 12/26/16 20:15 Ondansetron HCl (Zofran) 4 mg Q6H PRN IVP Nausea & Vomiting 12/24/16 15:00 01/23/17 14:59 12/27/16 05:21 Polyethylene Glycol (Miralax) 17 gm DAILYPRN PRN ORAL Constipation 12/24/16 15:00 01/23/17 14:59 Sodium Chloride 1,000 ml @ 75 mls/hr [id number] IV 12/24/16 15:30 01/23/17 15:29 12/27/16 10:06 Temazepam (Restoril) 15 mg HSPRN PRN ORAL Insomnia 12/24/16 15:00 12/31/16 14:59 LYLA ROJAS M.D. Dec 27, 2016 10:27
[2016-12-27] MEDS ORDERED: Vancomycin 1250mg/D5W 250ml IVPB ONE (13:00)
[2016-12-27] MEDS ORDERED: Tubing Blood Filter IV ONE (15:29)
[2016-12-27] MEDS ORDERED: NS 275ml ONE ×2 (15:29→15:45)
[2016-12-27] MEDS ORDERED: Tubing IV Secondary IV ONE ×2 (15:29→15:45)
[2016-12-27] MEDS ORDERED: D5W 275ml ONE (15:45)
[2016-12-27] MEDS ORDERED: 1/2 NS 1000ml IV ONE (15:45)
--- NOTE | 2016-12-27 16:24 | Internal Med Progress Note ---
Subjective Date of Service: Dec 27, 2016 Physician Name Katharina Pond Attending Physician Rl Tee MD Current Medications Medications (Trade) Dose Ordered Sig/Pavel Route PRN Reason Start Time Stop Time Status Last Admin Dose Admin Acetaminophen (Tylenol) 650 mg Q4H PRN ORAL fever 12/24/16 15:00 01/23/17 14:59 12/26/16 09:24 Albuterol/ Ipratropium (DuoNeb 0.5-3(2.5)mg/3ml) 3 ml Q4H PRN HHN Shortness of Breath 12/24/16 15:00 12/29/16 14:59 Ceftriaxone Sodium 1 gm/ Dextrose 55 ml @ 110 mls/hr Q24H IVPB 12/26/16 17:00 01/02/17 16:59 12/26/16 18:24 Chlorhexidine Gluconate (Dianne-Hex 2%) 1 applic DAILY TOPIC 12/25/16 09:00 01/24/17 08:59 12/27/16 08:51 Clotrimazole (Lotrimin) 1 applic EVERY 12 HOURS TOPIC 12/25/16 10:00 01/24/17 09:59 12/27/16 08:52 Dextrose (Dextrose 50%) STAT PRN IV Hypoglycemia 12/24/16 15:00 01/23/17 14:59 Heparin Sodium (Porcine) (Heparin 5000 units/ml) 5,000 units EVERY 12 HOURS SUBQ 12/24/16 21:00 01/23/17 20:59 12/25/16 22:16 Insulin Aspart (NovoLOG) BEFORE MEALS AND HS SUBQ 12/24/16 16:30 01/23/17 16:29 12/27/16 11:51 Lactulose (Cephulac) 30 gm THREE TIMES A DAY ORAL 12/25/16 09:00 01/24/17 08:59 12/27/16 12:48 Morphine Sulfate (Morphine Sulfate) 2 mg Q4H PRN IVP Moderate Pain (Pain Scale 4-6) 12/24/16 15:00 12/31/16 14:59 12/27/16 05:22 Nitroglycerin (Ntg) 0.4 mg Every 5 Minutes PRN SL Prn Chest Pain 12/24/16 15:00 01/23/17 14:59 Nystatin (Nystop Powder) 1 applic THREE TIMES A DAY TOPIC 12/25/16 13:00 01/24/17 12:59 12/27/16 12:48 Olanzapine (ZyPREXA) 5 mg BEDTIME ORAL 12/25/16 21:00 01/24/17 20:59 12/26/16 20:15 Ondansetron HCl (Zofran) 4 mg Q6H PRN IVP Nausea & Vomiting 12/24/16 15:00 01/23/17 14:59 12/27/16 05:21 Polyethylene Glycol (Miralax) 17 gm DAILYPRN PRN ORAL Constipation 12/24/16 15:00 01/23/17 14:59 Sodium Chloride 1,000 ml @ 75 mls/hr [id number] IV 12/24/16 15:30 01/23/17 15:29 12/27/16 10:06 Temazepam (Restoril) 15 mg HSPRN PRN ORAL Insomnia 12/24/16 15:00 12/31/16 14:59 Vancomycin HCl (Vanco rx to dose) 1 ea DAILY PRN MISC Per rx protocol 12/27/16 10:30 01/26/17 10:29 Vancomycin HCl 1 gm/Dextrose 275 ml @ 183.708 mls/hr Q24H IVPB 12/28/16 13:00 01/02/17 12:59 Allergies: Coded Allergies: PENICILLINS (Unverified Allergy, Unknown, 03/22/15) ROS Limited/Unobtainable: Yes Subjective 76 YO F admitted with altered mental status. Now UTI. Cover for Int Med-Dr Coronado. Objective Last Vital Signs Date Time Temp Pulse Resp B/P (MAP) Pulse Ox O2 Delivery O2 Flow Rate FiO2 12/27/16 15:54 97.9 114 20 153/89 96 Nasal Cannula 2.0 General Appearance: WD/WN, no apparent distress, alert, obese EENT: PERRL/EOMI, normal ENT inspection Neck: non-tender, normal alignment, supple Cardiovascular: normal peripheral pulses, normal rate, regular rhythm, no gallop/murmur, no JVD Respiratory/Chest: chest wall non-tender, lungs clear, normal breath sounds, no respiratory distress, no accessory muscle use Abdomen: normal bowel sounds, non tender, soft, no organomegaly, no mass Extremities: normal range of motion Edema: trace edema 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, no motor/sensory deficits Skin: normal pigmentation, warm/dry Laboratory Tests Test 12/27/16 05:20 White Blood Count 5.6 K/UL (4.8-10.8) Red Blood Count 2.98 M/UL (4.20-5.40) L Hemoglobin 9.8 G/DL (12.0-16.0) L Hematocrit 30.2 % (37.0-47.0) L Mean Corpuscular Volume 101 FL (80-99) H Mean Corpuscular Hemoglobin 32.9 PG (27.0-31.0) H Mean Corpuscular Hemoglobin Concent 32.4 G/DL (32.0-36.0) Red Cell Distribution Width 15.1 % (11.6-14.8) H Platelet Count 96 K/UL (150-450) L Mean Platelet Volume 6.0 FL (6.5-10.1) L Neutrophils (%) (Auto) % (45.0-75.0) Lymphocytes (%) (Auto) % (20.0-45.0) Monocytes (%) (Auto) % (1.0-10.0) Eosinophils (%) (Auto) % (0.0-3.0) Basophils (%) (Auto) % (0.0-2.0) Differential Total Cells Counted 100 Neutrophils % (Manual) 57 % (45-75) Lymphocytes % (Manual) 28 % (20-45) Monocytes % (Manual) 1 % (1-10) Eosinophils % (Manual) 11 % (0-3) H Basophils % (Manual) 1 % (0-2) Band Neutrophils 2 % (0-8) Platelet Estimate Decreased L Platelet Morphology Normal Red Blood Cell Morphology Normal Sodium Level 142 mEQ/L (135-145) Potassium Level 3.9 mEQ/L (3.4-4.9) Chloride Level 110 mEQ/L (98-107) H Carbon Dioxide Level 20 mEQ/L (20-30) Anion Gap 12 (5-15) Blood Urea Nitrogen 17 mg/dL (7-23) Creatinine 1.6 mg/dL (0.5-0.9) H Estimat Glomerular Filtration Rate mL/min (>60) Glucose Level 193 mg/dL (74-106) H Hemoglobin A1c 4.7 % (< 6.0) Calcium Level 9.6 mg/dL (8.6-10.2) Phosphorus Level 3.5 mg/dL (2.5-4.8) Magnesium Level 2.2 mg/dL (1.7-2.5) Total Bilirubin 1.1 mg/dL (0.0-1.2) Direct Bilirubin 0.5 mg/dL (0.1-0.3) H Aspartate Amino Transf (AST/SGOT) 50 U/L (5-40) H Alanine Aminotransferase (ALT/SGPT) 14 U/L (3-33) Alkaline Phosphatase 173 U/L (35-104) H Ammonia 27 umol/L (11-51) Total Protein 6.7 g/dL (6.6-8.7) # Albumin 2.7 g/dL (3.5-5.2) L Globulin 4.0 g/dL Albumin/Globulin Ratio 0.6 (1.0-2.7) L Microbiology Date/Time Source Procedure Growth Status 12/24/16 20:00 Blood Blood Culture - Preliminary NO GROWTH AFTER 48 HOURS Resulted 12/24/16 19:50 Blood Blood Culture - Preliminary NO GROWTH AFTER 48 HOURS Resulted 12/25/16 12:00 Indwelling Cath Urine Culture - Preliminary Gram Negative Zaid Resulted Intake and Output 12/27/16 12/28/16 19:00 07:00 Intake Total 240 ml Balance 240 ml Intake Oral 240 ml # Voids 2 # Bowel Movements 2 Assessment/Plan Problem List: (1) Cardiomyopathy (2) Diabetes mellitus, type II Assessment & Plan: Continue novolog sliding scale. (3) HTN (hypertension) (4) Altered mental status Assessment & Plan: ?due to UTI? (5) UTI (urinary tract infection) Assessment & Plan: E. Coli. Cont ceftriaxone per ID (6) Anemia (7) Sleep apnea, obstructive (8) GERD (gastroesophageal reflux disease) (9) Hypercholesteremia Status: not improved KATHARINA POND Dec 27, 2016 16:24
--- NOTE | 2016-12-27 16:27 | General Progress Note ---
Assessment/Plan Assessment/Plan Assessment - DURANT, with cirrhosis - rising CEA - ? source (GI vs other) - d/w DTR --> requests w/u - Anemia - Heme (+) Stools - Functional decline Recommendations - Consider FILM INSPECTOR eval - EGD/Colon Thursday - lactulose Subjective Allergies: Coded Allergies: PENICILLINS (Unverified Allergy, Unknown, 03/22/15) Subjective feels OK no new complaints s/p transfusion for EGD/Colon Objective Last 24 Hour Vital Signs Date Time Temp Pulse Resp B/P (MAP) Pulse Ox O2 Delivery O2 Flow Rate FiO2 12/27/16 15:54 97.9 114 20 153/89 96 Nasal Cannula 2.0 12/27/16 12:35 97.5 120 20 126/74 96 Nasal Cannula 2.0 12/27/16 12:00 116 12/27/16 08:36 97.9 125 20 121/93 100 Nasal Cannula 2.0 12/27/16 08:16 Nasal Cannula 2.0 12/27/16 08:15 100 Nasal Cannula 2.0 12/27/16 08:14 108 20 Room Air 12/27/16 08:00 129 12/27/16 05:52 97.9 12/27/16 04:00 97.9 117 18 153/80 98 Nasal Cannula 2.0 12/27/16 04:00 111 12/27/16 00:00 116 12/27/16 00:00 97.9 116 20 126/66 97 Nasal Cannula 2.0 12/26/16 20:05 97.7 113 20 148/81 100 Nasal Cannula 2.0 12/26/16 20:00 108 12/26/16 19:51 97 20 Room Air Intake and Output 12/27/16 12/28/16 19:00 07:00 Intake Total 240 ml Balance 240 ml Intake Oral 240 ml # Voids 2 # Bowel Movements 2 Laboratory Tests 12/27/16 05:20: White Blood Count 5.6, Red Blood Count 2.98L, Hemoglobin 9.8L, Hematocrit 30.2L , Mean Corpuscular Volume 101H, Mean Corpuscular Hemoglobin 32.9H, Mean Corpuscular Hemoglobin Concent 32.4, Red Cell Distribution Width 15.1H, Platelet Count 96L, Mean Platelet Volume 6.0L, Neutrophils (%) (Auto) , Lymphocytes (%) (Auto) , Monocytes (%) (Auto) , Eosinophils (%) (Auto) , Basophils (%) (Auto) , Differential Total Cells Counted 100, Neutrophils % ( Manual) 57, Lymphocytes % (Manual) 28, Monocytes % (Manual) 1, Eosinophils % ( Manual) 11H, Basophils % (Manual) 1, Band Neutrophils 2, Platelet Estimate DecreasedL, Platelet Morphology Normal, Red Blood Cell Morphology Normal, Sodium Level 142, Potassium Level 3.9, Chloride Level 110H, Carbon Dioxide Level 20, Anion Gap 12, Blood Urea Nitrogen 17, Creatinine 1.6H, Estimat Glomerular Filtration Rate , Glucose Level 193H, Hemoglobin A1c 4.7, Calcium Level 9.6, Phosphorus Level 3.5, Magnesium Level 2.2, Total Bilirubin 1.1, Direct Bilirubin 0.5H, Aspartate Amino Transf (AST/SGOT) 50H, Alanine Aminotransferase (ALT/SGPT) 14, Alkaline Phosphatase 173H, Ammonia 27, Total Protein 6.7#, Albumin 2.7L, Globulin 4.0, Albumin/Globulin Ratio 0.6L Height (Feet): 5 Height (Inches): 5.00 Weight (Pounds): 234 Objective Obese WW NCAT supple CTA RR Soft ND NT trace edema non focal KIERSTEN DAVIES Dec 27, 2016 16:27
[2016-12-27] MEDS: cefTRIAXone 1 GM in D5W 55 ML IVPB SCH (16:39)
--- NOTE | 2016-12-27 17:15 | Cardiology Report ---
APPROVED REPORT EXAM: Two-dimensional and M-mode echocardiogram with Doppler and color Doppler. INDICATION Left ventricular function M-Mode DIMENSIONS IVSd1.1 (0.7-1.1cm)Left Atrium (MM)4.3 (1.6-4.0cm) LVDd5.8 (3.5-5.6cm)Aortic Root2.8 (2.0-3.7cm) PWd1.2 (0.7-1.1cm)Aortic Cusp Exc.1.9 (1.5-2.0cm) LVDs3.4 (2.5-4.0cm) PWs1.3 cm Technically difficult study due to poor acoustic windows. Study quality precludes accurate assessment of regional wall motion. Normal left ventricular chamber size, systolic function and wall motion. Left ventricular ejection fraction estimated to be 60-65%. No evidence of left ventricular hypertrophy. No evidence of pericardial fat or effusion. All other cardiac chamber sizes are within normal limits. Focal aortic valve sclerosis with adequate cusp excursion Thickened mitral valve leaflets with normal excursion. Mitral annulus and aortic root calcification. Pulmonic valve not well visualized. Normal tricuspid valve structure. IVC not obtainable. A color flow and spectral Doppler study was performed and revealed: No aortic regurgitation. No mitral regurgitation. Left ventricular diastolic dysfunction grade 1. No tricuspid regurgitation.
--- NOTE | 2016-12-27 21:00 | Progress Note ---
DATE: 12/27/2016 SUBJECTIVE: The patient was found in bed. She did not have any complaints, more alert, less confused than previous encounter. However, she is still more confused than her baseline. MENTAL STATUS EXAMINATION: The patient is alert, disoriented. Mood is currently anxious. Affect is constricted. Congruent with mood. Thought process is concrete. Thought content, no suicidal or homicidal ideations. ASSESSMENT: 1. Acute encephalopathy. 2. Sepsis. PLAN: We will continue the current medications, she may benefit from low dose of antipsychotics. We will hold the Zoloft. Continue to follow. Oj Medel M.D. DR: Mariela JOB#: [id number] CC:
[2016-12-28 03:49] VITALS: BP 141/65
[2016-12-28] MEDS: NovoLOG Insulin Flexpen SUBQ SCH ×4 (06:50→20:44)
[2016-12-28 07:07] LABS: MEAN CORPUSCULAR HEMOGLOBIN 32.3 PG (27.0-31.0); MEAN CORPUSCULAR HGB CONC 31.9 G/DL (32.0-36.0); MEAN CORPUSCULAR VOLUME 101 FL (80-99); MEAN PLATELET VOLUME 6.9 FL (6.5-10.1); PLATELET COUNT 84 K/UL (150-450); RED BLOOD COUNT 2.68 M/UL (4.20-5.40); RED CELL DISTRIBUTION WIDTH 15.3 % (11.6-14.8); WHITE BLOOD COUNT 6.6 K/UL (4.8-10.8)
[2016-12-28 07:18] LABS: ANION GAP 12 (5-15); CARBON DIOXIDE 16 mEQ/L (20-30); CHLORIDE 114 mEQ/L (98-107); CREATININE 1.5 mg/dL (0.5-0.9); HEMOLYSIS 108; POTASSIUM 4.8 mEQ/L (3.4-4.9); SODIUM 142 mEQ/L (135-145)
--- NOTE | 2016-12-28 08:30 | Infectious Diseases Prog Note ---
Assessment/Plan Assessment/Plan A; Sepsis UTI Morbid obesity Cirrhosis Anemia Splenomegaly CoNS in blood, contamination P; Change antibiotics to Meropenem Subjective ROS Limited/Unobtainable: No Constitutional: Reports: other - feels better Respiratory: Reports: no symptoms Gastrointestinal/Abdominal: Reports: no symptoms Genitourinary: Reports: no symptoms Allergies: Coded Allergies: PENICILLINS (Unverified Allergy, Unknown, 03/22/15) Objective Vital Signs Last 24 Hour Vital Signs Date Time Temp Pulse Resp B/P (MAP) Pulse Ox O2 Delivery O2 Flow Rate FiO2 12/28/16 07:50 91 18 98 2.0 12/28/16 07:49 98 Nasal Cannula 2.0 12/28/16 07:49 91 18 Nasal Cannula 2.0 12/28/16 07:49 Nasal Cannula 2.0 12/28/16 04:00 104 12/28/16 03:49 98.3 112 19 141/65 100 Nasal Cannula 2.0 12/28/16 00:00 96 12/27/16 23:59 98.1 106 16 132/73 Bi-pap 12/27/16 23:03 72 13 97 Facial 30 12/27/16 20:17 98.6 102 19 126/86 100 Nasal Cannula 2.0 12/27/16 20:00 104 12/27/16 19:00 97 Nasal Cannula 2.0 12/27/16 19:00 97 18 Room Air 12/27/16 19:00 Nasal Cannula 2.0 12/27/16 16:00 107 12/27/16 15:54 97.9 114 20 153/89 96 Nasal Cannula 2.0 12/27/16 12:35 97.5 120 20 126/74 96 Nasal Cannula 2.0 12/27/16 12:00 116 12/27/16 08:36 97.9 125 20 121/93 100 Nasal Cannula 2.0 Height (Feet): 5 Height (Inches): 5.00 Weight (Pounds): 234 General Appearance: no acute distress, other - obese HEENT: mucous membranes moist Respiratory/Chest: lungs clear Cardiovascular: normal rate Abdomen: soft, non tender Extremities: no edema, other - left arm PICC line Neurologic/Psychiatric: alert, oriented x 3, responsive Microbiology Date/Time Source Procedure Growth Status 12/25/16 12:00 Indwelling Cath Urine Culture - Final Escherichia Coli - Esbl Proteus Mirabilis Complete Laboratory Tests Test 12/28/16 05:55 White Blood Count 6.6 K/UL (4.8-10.8) Red Blood Count 2.68 M/UL (4.20-5.40) L Hemoglobin 8.6 G/DL (12.0-16.0) L Hematocrit 27.1 % (37.0-47.0) L Mean Corpuscular Volume 101 FL (80-99) H Mean Corpuscular Hemoglobin 32.3 PG (27.0-31.0) H Mean Corpuscular Hemoglobin Concent 31.9 G/DL (32.0-36.0) L Red Cell Distribution Width 15.3 % (11.6-14.8) H Platelet Count 84 K/UL (150-450) L Mean Platelet Volume 6.9 FL (6.5-10.1) Neutrophils (%) (Auto) % (45.0-75.0) Lymphocytes (%) (Auto) % (20.0-45.0) Monocytes (%) (Auto) % (1.0-10.0) Eosinophils (%) (Auto) % (0.0-3.0) Basophils (%) (Auto) % (0.0-2.0) Neutrophils % (Manual) Pending Lymphocytes % (Manual) Pending Platelet Estimate Pending Platelet Morphology Pending Sodium Level 142 mEQ/L (135-145) Potassium Level 4.8 mEQ/L (3.4-4.9) Chloride Level 114 mEQ/L (98-107) H Carbon Dioxide Level 16 mEQ/L (20-30) L Anion Gap 12 (5-15) Blood Urea Nitrogen 15 mg/dL (7-23) Creatinine 1.5 mg/dL (0.5-0.9) H Estimat Glomerular Filtration Rate mL/min (>60) Glucose Level 134 mg/dL (74-106) H Calcium Level 9.0 mg/dL (8.6-10.2) Current Medications Medications (Trade) Dose Ordered Sig/Pavel Route PRN Reason Start Time Stop Time Status Last Admin Dose Admin Acetaminophen (Tylenol) 650 mg Q4H PRN ORAL fever 12/24/16 15:00 01/23/17 14:59 12/26/16 09:24 Albuterol/ Ipratropium (DuoNeb 0.5-3(2.5)mg/3ml) 3 ml Q4H PRN HHN Shortness of Breath 12/24/16 15:00 12/29/16 14:59 Ceftriaxone Sodium 1 gm/ Dextrose 55 ml @ 110 mls/hr Q24H IVPB 12/26/16 17:00 01/02/17 16:59 12/27/16 16:39 Chlorhexidine Gluconate (Dianne-Hex 2%) 1 applic DAILY TOPIC 12/25/16 09:00 01/24/17 08:59 12/27/16 08:51 Clotrimazole (Lotrimin) 1 applic EVERY 12 HOURS TOPIC 12/25/16 10:00 01/24/17 09:59 12/27/16 20:29 Dextrose (Dextrose 50%) STAT PRN IV Hypoglycemia 12/24/16 15:00 01/23/17 14:59 Heparin Sodium (Porcine) (Heparin 5000 units/ml) 5,000 units EVERY 12 HOURS SUBQ 12/24/16 21:00 01/23/17 20:59 12/25/16 22:16 Insulin Aspart (NovoLOG) BEFORE MEALS AND HS SUBQ 12/24/16 16:30 01/23/17 16:29 12/28/16 06:50 Lactulose (Cephulac) 30 gm THREE TIMES A DAY ORAL 12/25/16 09:00 01/24/17 08:59 12/27/16 17:58 Morphine Sulfate (Morphine Sulfate) 2 mg Q4H PRN IVP Moderate Pain (Pain Scale 4-6) 12/24/16 15:00 12/31/16 14:59 12/27/16 05:22 Nitroglycerin (Ntg) 0.4 mg Every 5 Minutes PRN SL Prn Chest Pain 12/24/16 15:00 01/23/17 14:59 Nystatin (Nystop Powder) 1 applic THREE TIMES A DAY TOPIC 12/25/16 13:00 01/24/17 12:59 12/27/16 17:57 Olanzapine (ZyPREXA) 5 mg BEDTIME ORAL 12/25/16 21:00 01/24/17 20:59 12/27/16 20:22 Ondansetron HCl (Zofran) 4 mg Q6H PRN IVP Nausea & Vomiting 12/24/16 15:00 01/23/17 14:59 12/27/16 05:21 Polyethylene Glycol (Miralax) 17 gm DAILYPRN PRN ORAL Constipation 12/24/16 15:00 01/23/17 14:59 Sodium Chloride 1,000 ml @ 75 mls/hr [id number] IV 12/24/16 15:30 01/23/17 15:29 12/27/16 23:30 Temazepam (Restoril) 15 mg HSPRN PRN ORAL Insomnia 12/24/16 15:00 12/31/16 14:59 Vancomycin HCl (Vanco rx to dose) 1 ea DAILY PRN MISC Per rx protocol 12/27/16 10:30 01/26/17 10:29 Vancomycin HCl 1 gm/Dextrose 275 ml @ 183.708 mls/hr Q24H IVPB 12/28/16 13:00 01/02/17 12:59 SUMMER BYRNES Dec 28, 2016 08:30
[2016-12-28 08:33] VITALS: BP 146/71
[2016-12-28 08:40] LABS: ANISOCYTOSIS 1+; BAND NEUTROPHILS % (MANUAL) 0 % (0-8); BASOPHILS % (MANUAL) 0 % (0-2); EOSINOPHILS % (MANUAL) 10 % (0-3); HYPOCHROMASIA 1+; LYMPHOCYTES % (MANUAL) 22 % (20-45); MACROCYTES 1+; NEUTROPHILS % (MANUAL) 57 % (45-75); PLATELET ESTIMATE DECREASED; PLATELET MORPHOLOGY NORMAL; TOTAL CELLS COUNTED 100
[2016-12-28] MEDS ORDERED: Tubing IV Secondary IV ONE (08:57)
[2016-12-28] MEDS ORDERED: 1/2 NS 1000ml IV ONE (08:57)
[2016-12-28] MEDS ORDERED: NS 275ml ONE (08:57)
[2016-12-28] MEDS ORDERED: Meropenem 500 MG in NS 55 ML IVPB SCH (09:00)
[2016-12-28] MEDS: Lactulose 20gm/30ml UDC ORAL SCH ×3 (09:00→17:19)
[2016-12-28] MEDS: Heparin 5000 units/ml inj SUBQ SCH ×2 (09:00→21:00)
[2016-12-28] MEDS: Nystatin Powder 100,000 units/gm 15gm TOPIC SCH ×3 (09:19→17:23)
[2016-12-28] MEDS: Dyna-Hex 2% Top Sol 8oz TOPIC SCH (09:19)
[2016-12-28] MEDS: Meropenem 1gm/NS 110ml IVPB SCH ×4 (09:32→22:00)
--- NOTE | 2016-12-28 10:41 | Pulmonology Progress Note ---
Assessment/Plan Assessment/Plan ASSESSMENT Acute toxic metabolic encephalopathy ( due to sepsis)-resolving UTI DM HTN Anemia of chronic disease, requiring blood transfusion elevated CEA DURANT with cirrhosis Acute renal failure e/lyte imbalance (hypo K, hypo Mg. hypo P) YELENA obesity MDD Delirium PLAN OF CARE tele, still tachy monitor renal parameters, lytes, avoid nephrotoxic, s/p lytes replacement Abx, ID follows Urine cx + E coli, blood cx preliminary negative GI follows s/p blood transfusion, goal to keep Hgb above 8, stool OB +, elevated CEA EGD and colon plan tentatively on Thursday GI prophylaxis on lactulose, ammonia-WNL CT A/P with evidence of hepatic cirrhosis and new area of low attenuation at liver, aFP WNL DVT prophylaxis CXR negative O2 HN prn BiPAP at night for YELENA, keep on tele, still tachy consider cardio eval-per PMD discretion case discussed and evaluated by supervising physician Subjective Allergies: Coded Allergies: PENICILLINS (Unverified Allergy, Unknown, 03/22/15) Subjective denies chest pain, SOB on O2 via NC no signs of respiratory distress HH up after blood transfixion lytes ( P and mg) stable after replacement used BiPAP at night Objective Last 24 Hour Vital Signs Date Time Temp Pulse Resp B/P (MAP) Pulse Ox O2 Delivery O2 Flow Rate FiO2 12/28/16 09:09 99 2.0 12/28/16 08:33 97.9 124 20 146/71 96 Nasal Cannula 2.0 12/28/16 08:00 112 12/28/16 07:50 91 18 98 2.0 12/28/16 07:49 98 Nasal Cannula 2.0 12/28/16 07:49 91 18 Nasal Cannula 2.0 12/28/16 07:49 Nasal Cannula 2.0 12/28/16 04:00 104 12/28/16 03:49 98.3 112 19 141/65 100 Nasal Cannula 2.0 12/28/16 00:00 96 12/27/16 23:59 98.1 106 16 132/73 Bi-pap 12/27/16 23:03 72 13 97 Facial 30 12/27/16 20:17 98.6 102 19 126/86 100 Nasal Cannula 2.0 12/27/16 20:00 104 12/27/16 19:00 97 Nasal Cannula 2.0 12/27/16 19:00 97 18 Room Air 12/27/16 19:00 Nasal Cannula 2.0 12/27/16 16:00 107 12/27/16 15:54 97.9 114 20 153/89 96 Nasal Cannula 2.0 12/27/16 12:35 97.5 120 20 126/74 96 Nasal Cannula 2.0 12/27/16 12:00 116 Intake and Output 12/28/16 12/29/16 19:00 07:00 Intake Total 240 ml Balance 240 ml Intake Oral 240 ml Objective General Appearance: no acute distress, awake, alert, morbidly obese female in NAD HEENT: atraumatic, anicteric, mucous membranes moist, O2 via NC Respiratory/Chest: lungs clear with moderate air entry , no respiratory distress Cardiovascular: regular rhythm, tachycardia - ST on tele Abdomen: normal bowel sounds, soft, non tender , obese Extremities: no edema Neurologic/Psychiatric: abnormal gait, alert, responsive Microbiology Date/Time Source Procedure Growth Status 12/25/16 12:00 Indwelling Cath Urine Culture - Final Escherichia Coli - Esbl Proteus Mirabilis Complete Laboratory Tests 12/28/16 05:55: White Blood Count 6.6, Red Blood Count 2.68L, Hemoglobin 8.6L, Hematocrit 27.1L , Mean Corpuscular Volume 101H, Mean Corpuscular Hemoglobin 32.3H, Mean Corpuscular Hemoglobin Concent 31.9L, Red Cell Distribution Width 15.3H, Platelet Count 84L, Mean Platelet Volume 6.9, Neutrophils (%) (Auto) , Lymphocytes (%) (Auto) , Monocytes (%) (Auto) , Eosinophils (%) (Auto) , Basophils (%) (Auto) , Differential Total Cells Counted 100, Neutrophils % ( Manual) 57, Lymphocytes % (Manual) 22, Monocytes % (Manual) 11H, Eosinophils % ( Manual) 10H, Basophils % (Manual) 0, Band Neutrophils 0, Platelet Estimate DecreasedL, Platelet Morphology Normal, Hypochromasia 1+, Anisocytosis 1+, Macrocytosis 1+, Sodium Level 142, Potassium Level 4.8, Chloride Level 114H, Carbon Dioxide Level 16L, Anion Gap 12, Blood Urea Nitrogen 15, Creatinine 1.5H , Estimat Glomerular Filtration Rate , Glucose Level 134H, Calcium Level 9.0 Current Medications Medications (Trade) Dose Ordered Sig/Pavel Route PRN Reason Start Time Stop Time Status Last Admin Dose Admin Acetaminophen (Tylenol) 650 mg Q4H PRN ORAL fever 12/24/16 15:00 01/23/17 14:59 12/26/16 09:24 Albuterol/ Ipratropium (DuoNeb 0.5-3(2.5)mg/3ml) 3 ml Q4H PRN HHN Shortness of Breath 12/24/16 15:00 12/29/16 14:59 Chlorhexidine Gluconate (Dianne-Hex 2%) 1 applic DAILY TOPIC 12/25/16 09:00 01/24/17 08:59 12/28/16 09:19 Clotrimazole (Lotrimin) 1 applic EVERY 12 HOURS TOPIC 12/25/16 10:00 01/24/17 09:59 12/28/16 09:20 Dextrose (Dextrose 50%) STAT PRN IV Hypoglycemia 12/24/16 15:00 01/23/17 14:59 Heparin Sodium (Porcine) (Heparin 5000 units/ml) 5,000 units EVERY 12 HOURS SUBQ 12/24/16 21:00 01/23/17 20:59 12/25/16 22:16 Insulin Aspart (NovoLOG) BEFORE MEALS AND HS SUBQ 12/24/16 16:30 01/23/17 16:29 12/28/16 06:50 Lactulose (Cephulac) 30 gm THREE TIMES A DAY ORAL 12/25/16 09:00 01/24/17 08:59 12/27/16 17:58 Meropenem 1 gm/ Sodium Chloride 110 ml @ 220 mls/hr Q12H IVPB 12/28/16 10:00 01/02/17 09:59 12/28/16 09:32 Morphine Sulfate (Morphine Sulfate) 2 mg Q4H PRN IVP Moderate Pain (Pain Scale 4-6) 12/24/16 15:00 12/31/16 14:59 12/27/16 05:22 Nitroglycerin (Ntg) 0.4 mg Every 5 Minutes PRN SL Prn Chest Pain 12/24/16 15:00 01/23/17 14:59 Nystatin (Nystop Powder) 1 applic THREE TIMES A DAY TOPIC 12/25/16 13:00 01/24/17 12:59 9/10/17 09:19 Olanzapine (ZyPREXA) 5 mg BEDTIME ORAL 12/25/16 21:00 01/24/17 20:59 12/27/16 20:22 Ondansetron HCl (Zofran) 4 mg Q6H PRN IVP Nausea & Vomiting 12/24/16 15:00 01/23/17 14:59 12/27/16 05:21 Polyethylene Glycol (Miralax) 17 gm DAILYPRN PRN ORAL Constipation 12/24/16 15:00 01/23/17 14:59 Sodium Chloride 1,000 ml @ 75 mls/hr [id number] IV 12/24/16 15:30 01/23/17 15:29 12/27/16 23:30 Temazepam (Restoril) 15 mg HSPRN PRN ORAL Insomnia 12/24/16 15:00 12/31/16 14:59 Gustavo ([facility])Chana NP Dec 28, 2016 10:41
[2016-12-28 12:53] VITALS: BP 137/64
[2016-12-28] MEDS ORDERED: Vancomycin 1gm/D5W 275ml IVPB SCH ×2 (13:00)
[2016-12-28 16:29] VITALS: BP 147/66
--- NOTE | 2016-12-28 16:32 | General Progress Note ---
Assessment/Plan Assessment/Plan Assessment - DURANT, with cirrhosis - rising CEA - ? source (GI vs other) - d/w DTR --> requests w/u - Anemia - Heme (+) Stools - Functional decline Recommendations - Consider CASSANDRA CONSULTANT eval - EGD/Colon Thursday - lactulose - follow labs Subjective Allergies: Coded Allergies: PENICILLINS (Unverified Allergy, Unknown, 03/22/15) Subjective feels OK no new complaints s/p transfusion for EGD/Colon Objective Last 24 Hour Vital Signs Date Time Temp Pulse Resp B/P (MAP) Pulse Ox O2 Delivery O2 Flow Rate FiO2 12/28/16 16:29 97.7 95 20 147/66 96 Nasal Cannula 2.0 12/28/16 15:24 91 12/28/16 12:53 97.7 96 20 137/64 100 Nasal Cannula 2.0 12/28/16 12:00 102 12/28/16 09:09 99 2.0 12/28/16 08:33 97.9 124 20 146/71 96 Nasal Cannula 2.0 12/28/16 08:00 112 12/28/16 07:50 91 18 98 2.0 12/28/16 07:49 98 Nasal Cannula 2.0 12/28/16 07:49 91 18 Nasal Cannula 2.0 12/28/16 07:49 Nasal Cannula 2.0 12/28/16 04:00 104 12/28/16 03:49 98.3 112 19 141/65 100 Nasal Cannula 2.0 12/28/16 00:00 96 12/27/16 23:59 98.1 106 16 132/73 Bi-pap 12/27/16 23:03 72 13 97 Facial 30 12/27/16 20:17 98.6 102 19 126/86 100 Nasal Cannula 2.0 12/27/16 20:00 104 12/27/16 19:00 97 Nasal Cannula 2.0 12/27/16 19:00 97 18 Room Air 12/27/16 19:00 Nasal Cannula 2.0 Intake and Output 12/28/16 12/29/16 19:00 07:00 Intake Total 1070 ml Balance 1070 ml Intake Oral 360 ml IV Total 710 ml # Voids 3 # Bowel Movements 1 Laboratory Tests 12/28/16 05:55: White Blood Count 6.6, Red Blood Count 2.68L, Hemoglobin 8.6L, Hematocrit 27.1L , Mean Corpuscular Volume 101H, Mean Corpuscular Hemoglobin 32.3H, Mean Corpuscular Hemoglobin Concent 31.9L, Red Cell Distribution Width 15.3H, Platelet Count 84L, Mean Platelet Volume 6.9, Neutrophils (%) (Auto) , Lymphocytes (%) (Auto) , Monocytes (%) (Auto) , Eosinophils (%) (Auto) , Basophils (%) (Auto) , Differential Total Cells Counted 100, Neutrophils % ( Manual) 57, Lymphocytes % (Manual) 22, Monocytes % (Manual) 11H, Eosinophils % ( Manual) 10H, Basophils % (Manual) 0, Band Neutrophils 0, Platelet Estimate DecreasedL, Platelet Morphology Normal, Hypochromasia 1+, Anisocytosis 1+, Macrocytosis 1+, Sodium Level 142, Potassium Level 4.8, Chloride Level 114H, Carbon Dioxide Level 16L, Anion Gap 12, Blood Urea Nitrogen 15, Creatinine 1.5H , Estimat Glomerular Filtration Rate , Glucose Level 134H, Calcium Level 9.0 Height (Feet): 5 Height (Inches): 5.00 Weight (Pounds): 234 Objective Obese WW NCAT supple CTA RR Soft ND NT trace edema non focal KIERSTEN DAVIES Dec 28, 2016 16:32
--- NOTE | 2016-12-28 16:35 | Internal Med Progress Note ---
Subjective Date of Service: Dec 28, 2016 Physician Name Katharina Pond Attending Physician Rl Tee MD Current Medications Medications (Trade) Dose Ordered Sig/Pavel Route PRN Reason Start Time Stop Time Status Last Admin Dose Admin Acetaminophen (Tylenol) 650 mg Q4H PRN ORAL fever 12/24/16 15:00 01/23/17 14:59 12/26/16 09:24 Albuterol/ Ipratropium (DuoNeb 0.5-3(2.5)mg/3ml) 3 ml Q4H PRN HHN Shortness of Breath 12/24/16 15:00 12/29/16 14:59 Chlorhexidine Gluconate (Dianne-Hex 2%) 1 applic DAILY TOPIC 12/25/16 09:00 01/24/17 08:59 12/28/16 09:19 Clotrimazole (Lotrimin) 1 applic EVERY 12 HOURS TOPIC 12/25/16 10:00 01/24/17 09:59 12/28/16 09:20 Dextrose (Dextrose 50%) STAT PRN IV Hypoglycemia 12/24/16 15:00 01/23/17 14:59 Heparin Sodium (Porcine) (Heparin 5000 units/ml) 5,000 units EVERY 12 HOURS SUBQ 12/24/16 21:00 01/23/17 20:59 12/25/16 22:16 Insulin Aspart (NovoLOG) BEFORE MEALS AND HS SUBQ 12/24/16 16:30 01/23/17 16:29 12/28/16 12:11 Lactulose (Cephulac) 30 gm THREE TIMES A DAY ORAL 12/25/16 09:00 01/24/17 08:59 12/27/16 17:58 Meropenem 1 gm/ Sodium Chloride 110 ml @ 220 mls/hr Q12H IVPB 12/28/16 10:00 01/02/17 09:59 12/28/16 09:32 Morphine Sulfate (Morphine Sulfate) 2 mg Q4H PRN IVP Moderate Pain (Pain Scale 4-6) 12/24/16 15:00 12/31/16 14:59 12/27/16 05:22 Nitroglycerin (Ntg) 0.4 mg Every 5 Minutes PRN SL Prn Chest Pain 12/24/16 15:00 01/23/17 14:59 Nystatin (Nystop Powder) 1 applic THREE TIMES A DAY TOPIC 12/25/16 13:00 01/24/17 12:59 12/28/16 12:50 Olanzapine (ZyPREXA) 5 mg BEDTIME ORAL 12/25/16 21:00 01/24/17 20:59 12/27/16 20:22 Ondansetron HCl (Zofran) 4 mg Q6H PRN IVP Nausea & Vomiting 12/24/16 15:00 01/23/17 14:59 12/27/16 05:21 Polyethylene Glycol (Miralax) 17 gm DAILYPRN PRN ORAL Constipation 12/24/16 15:00 01/23/17 14:59 Sodium Chloride 1,000 ml @ 75 mls/hr [id number] IV 12/24/16 15:30 01/23/17 15:29 12/28/16 12:49 Temazepam (Restoril) 15 mg HSPRN PRN ORAL Insomnia 12/24/16 15:00 12/31/16 14:59 Allergies: Coded Allergies: PENICILLINS (Unverified Allergy, Unknown, 03/22/15) ROS Limited/Unobtainable: Yes Subjective 76 YO F admitted with altered mental status. Now UTI. Cover for Int Med-Dr Coronado. Objective Last Vital Signs Date Time Temp Pulse Resp B/P (MAP) Pulse Ox O2 Delivery O2 Flow Rate FiO2 12/28/16 16:29 97.7 95 20 147/66 96 Nasal Cannula 2.0 12/27/16 23:03 30 Laboratory Tests Test 12/28/16 05:55 White Blood Count 6.6 K/UL (4.8-10.8) Red Blood Count 2.68 M/UL (4.20-5.40) L Hemoglobin 8.6 G/DL (12.0-16.0) L Hematocrit 27.1 % (37.0-47.0) L Mean Corpuscular Volume 101 FL (80-99) H Mean Corpuscular Hemoglobin 32.3 PG (27.0-31.0) H Mean Corpuscular Hemoglobin Concent 31.9 G/DL (32.0-36.0) L Red Cell Distribution Width 15.3 % (11.6-14.8) H Platelet Count 84 K/UL (150-450) L Mean Platelet Volume 6.9 FL (6.5-10.1) Neutrophils (%) (Auto) % (45.0-75.0) Lymphocytes (%) (Auto) % (20.0-45.0) Monocytes (%) (Auto) % (1.0-10.0) Eosinophils (%) (Auto) % (0.0-3.0) Basophils (%) (Auto) % (0.0-2.0) Differential Total Cells Counted 100 Neutrophils % (Manual) 57 % (45-75) Lymphocytes % (Manual) 22 % (20-45) Monocytes % (Manual) 11 % (1-10) H Eosinophils % (Manual) 10 % (0-3) H Basophils % (Manual) 0 % (0-2) Band Neutrophils 0 % (0-8) Platelet Estimate Decreased L Platelet Morphology Normal Hypochromasia 1+ Anisocytosis 1+ Macrocytosis 1+ Sodium Level 142 mEQ/L (135-145) Potassium Level 4.8 mEQ/L (3.4-4.9) Chloride Level 114 mEQ/L (98-107) H Carbon Dioxide Level 16 mEQ/L (20-30) L Anion Gap 12 (5-15) Blood Urea Nitrogen 15 mg/dL (7-23) Creatinine 1.5 mg/dL (0.5-0.9) H Estimat Glomerular Filtration Rate mL/min (>60) Glucose Level 134 mg/dL (74-106) H Calcium Level 9.0 mg/dL (8.6-10.2) Intake and Output 12/28/16 12/29/16 19:00 07:00 Intake Total 1070 ml Balance 1070 ml Intake Oral 360 ml IV Total 710 ml # Voids 3 # Bowel Movements 1 Objective General Appearance: WD/WN, no apparent distress, alert, obese EENT: PERRL/EOMI, normal ENT inspection Neck: non-tender, normal alignment, supple Cardiovascular: normal peripheral pulses, normal rate, regular rhythm, no gallop/murmur, no JVD Respiratory/Chest: chest wall non-tender, lungs clear, normal breath sounds, no respiratory distress, no accessory muscle use Abdomen: normal bowel sounds, non tender, soft, no organomegaly, no mass Extremities: normal range of motion Edema: trace edema Neurologic: teller II-XII grossly normal, no motor/sensory deficits Skin: normal pigmentation, warm/dry Assessment/Plan Problem List: (1) Cardiomyopathy (2) Diabetes mellitus, type II Assessment & Plan: Continue novolog sliding scale. (3) HTN (hypertension) (4) Altered mental status Assessment & Plan: ?due to UTI? (5) UTI (urinary tract infection) Assessment & Plan: ESBL E. Coli and proteus mirabilis. D/C ceftriaxone per ID ; start meropenem (6) Anemia (7) Sleep apnea, obstructive (8) GERD (gastroesophageal reflux disease) (9) Hypercholesteremia Status: not improved KATHARINA POND Dec 28, 2016 16:35
[2016-12-28 20:00] VITALS: BP 141/70
--- NOTE | 2016-12-28 23:09 | General Progress Note ---
Assessment/Plan Status: doing well, stable, progressing Assessment/Plan cont current meds Subjective Neurologic/Psychiatric: Reports: anxiety, emotional problems Allergies: Coded Allergies: PENICILLINS (Unverified Allergy, Unknown, 03/22/15) Subjective the pt is much less confused and anxious. was able to answer questions appropriately Objective Last 24 Hour Vital Signs Date Time Temp Pulse Resp B/P (MAP) Pulse Ox O2 Delivery O2 Flow Rate FiO2 12/28/16 20:06 92 12/28/16 20:00 97.9 91 20 141/70 100 Room Air 12/28/16 19:30 96 Room Air 21 12/28/16 19:30 90 18 Room Air 21 12/28/16 19:30 Room Air 21 12/28/16 16:29 97.7 95 20 147/66 96 Nasal Cannula 2.0 12/28/16 15:24 91 12/28/16 12:53 97.7 96 20 137/64 100 Nasal Cannula 2.0 12/28/16 12:00 102 12/28/16 09:09 99 2.0 12/28/16 08:33 97.9 124 20 146/71 96 Nasal Cannula 2.0 12/28/16 08:00 112 12/28/16 07:50 91 18 98 2.0 12/28/16 07:49 98 Nasal Cannula 2.0 12/28/16 07:49 91 18 Nasal Cannula 2.0 12/28/16 07:49 Nasal Cannula 2.0 12/28/16 04:00 104 12/28/16 03:49 98.3 112 19 141/65 100 Nasal Cannula 2.0 12/28/16 00:00 96 12/27/16 23:59 98.1 106 16 132/73 Bi-pap Intake and Output 12/28/16 12/29/16 19:00 07:00 Intake Total 1340 ml Balance 1340 ml Intake Oral 480 ml IV Total 860 ml # Voids 4 # Bowel Movements 1 Laboratory Tests 12/28/16 05:55: White Blood Count 6.6, Red Blood Count 2.68L, Hemoglobin 8.6L, Hematocrit 27.1L , Mean Corpuscular Volume 101H, Mean Corpuscular Hemoglobin 32.3H, Mean Corpuscular Hemoglobin Concent 31.9L, Red Cell Distribution Width 15.3H, Platelet Count 84L, Mean Platelet Volume 6.9, Neutrophils (%) (Auto) , Lymphocytes (%) (Auto) , Monocytes (%) (Auto) , Eosinophils (%) (Auto) , Basophils (%) (Auto) , Differential Total Cells Counted 100, Neutrophils % ( Manual) 57, Lymphocytes % (Manual) 22, Monocytes % (Manual) 11H, Eosinophils % ( Manual) 10H, Basophils % (Manual) 0, Band Neutrophils 0, Platelet Estimate DecreasedL, Platelet Morphology Normal, Hypochromasia 1+, Anisocytosis 1+, Macrocytosis 1+, Sodium Level 142, Potassium Level 4.8, Chloride Level 114H, Carbon Dioxide Level 16L, Anion Gap 12, Blood Urea Nitrogen 15, Creatinine 1.5H , Estimat Glomerular Filtration Rate , Glucose Level 134H, Calcium Level 9.0 Height (Feet): 5 Height (Inches): 5.00 Weight (Pounds): 234 General Appearance: no apparent distress, alert, obese Neurologic: alert, oriented x 3, responsive, depressed affect Oj Medel M.D. Dec 28, 2016 23:09
[2016-12-29] VITALS (7 sets, daily range): BP systolic 104–150; BP diastolic 47–89
[2016-12-29] MEDS: NovoLOG Insulin Flexpen SUBQ SCH ×4 (06:28→22:29)
[2016-12-29] MEDS ORDERED: Nulytely 4L ORAL ONE (07:00)
[2016-12-29] MEDS: Heparin 5000 units/ml inj SUBQ SCH ×2 (09:00→21:00)
[2016-12-29] MEDS: Lactulose 20gm/30ml UDC ORAL SCH ×3 (09:27→17:54)
[2016-12-29] MEDS: Dyna-Hex 2% Top Sol 8oz TOPIC SCH (09:27)
[2016-12-29] MEDS: Meropenem 1gm/NS 110ml IVPB SCH ×2 (09:28)
[2016-12-29] MEDS: Nystatin Powder 100,000 units/gm 15gm TOPIC SCH ×3 (09:35→17:55)
--- NOTE | 2016-12-29 10:45 | General Progress Note ---
Assessment/Plan Assessment/Plan Assessment - DURANT, with cirrhosis - rising CEA - ? source (GI vs other) - d/w DTR --> requests w/u - Anemia - Heme (+) Stools - Functional decline Recommendations - Consider EVALUATION MANAGER eval - EGD/Colon Thursday - lactulose - follow labs Subjective Allergies: Coded Allergies: PENICILLINS (Unverified Allergy, Unknown, 03/22/15) Subjective feels OK no new complaints not drinking much of golytely for EGD/Colon Objective Last 24 Hour Vital Signs Date Time Temp Pulse Resp B/P (MAP) Pulse Ox O2 Delivery O2 Flow Rate FiO2 12/29/16 08:37 Room Air 12/29/16 08:37 99 Room Air 12/29/16 08:36 109 18 Room Air 21 12/29/16 04:40 97.9 98 21 137/66 Nasal Cannula 12/29/16 03:39 105 12/29/16 00:28 97.9 99 21 150/47 100 Nasal Cannula 12/28/16 23:50 86 12/28/16 20:06 92 12/28/16 20:00 97.9 91 20 141/70 100 Room Air 12/28/16 19:30 96 Room Air 21 12/28/16 19:30 90 18 Room Air 21 12/28/16 19:30 Room Air 21 12/28/16 16:29 97.7 95 20 147/66 96 Nasal Cannula 2.0 12/28/16 15:24 91 12/28/16 12:53 97.7 96 20 137/64 100 Nasal Cannula 2.0 12/28/16 12:00 102 Height (Feet): 5 Height (Inches): 5.00 Weight (Pounds): 234 Objective Obese WW NCAT supple CTA RR Soft ND NT trace edema non focal KIERSTEN DAVIES Dec 29, 2016 10:44
--- NOTE | 2016-12-29 12:12 | Pulmonology Progress Note ---
Assessment/Plan Problems: (1) Altered level of consciousness (2) Generalized weakness (3) Cirrhosis (4) Elevated CEA (5) Anemia (6) Sleep apnea, obstructive (7) DM (diabetes mellitus) Assessment/Plan prbc prn OB positive CT abdomen and pelvis reviewed, awaiting colonoscopy/ EGD, scheduled for Thursday echo reviewed, EF is 60% Subjective ROS Limited/Unobtainable: Yes Constitutional: Reports: no symptoms HEENT: Repors: no symptoms Respiratory: Reports: no symptoms Allergies: Coded Allergies: PENICILLINS (Unverified Allergy, Unknown, 03/22/15) Objective Last 24 Hour Vital Signs Date Time Temp Pulse Resp B/P (MAP) Pulse Ox O2 Delivery O2 Flow Rate FiO2 12/29/16 08:37 Room Air 12/29/16 08:37 99 Room Air 12/29/16 08:36 109 18 Room Air 21 12/29/16 08:00 98.2 95 18 110/51 98 Room Air 12/29/16 08:00 111 12/29/16 04:40 97.9 98 21 137/66 Nasal Cannula 12/29/16 03:39 105 12/29/16 00:28 97.9 99 21 150/47 100 Nasal Cannula 12/28/16 23:50 86 12/28/16 20:06 92 12/28/16 20:00 97.9 91 20 141/70 100 Room Air 12/28/16 19:30 96 Room Air 21 12/28/16 19:30 90 18 Room Air 21 12/28/16 19:30 Room Air 21 12/28/16 16:29 97.7 95 20 147/66 96 Nasal Cannula 2.0 12/28/16 15:24 91 12/28/16 12:53 97.7 96 20 137/64 100 Nasal Cannula 2.0 General Appearance: WD/WN, no acute distress HEENT: normocephalic, atraumatic Respiratory/Chest: chest wall non-tender, lungs clear Cardiovascular: normal peripheral pulses, normal rate Abdomen: normal bowel sounds, soft, non tender Extremities: no cyanosis, no clubbing Skin: no lesions Neurologic/Psychiatric: shell plater II-XII grossly normal, no motor/sensory deficits Lymphatic: no neck adenopathy Musculoskeletal: normal muscle bulk Current Medications Medications (Trade) Dose Ordered Sig/Pavel Route PRN Reason Start Time Stop Time Status Last Admin Dose Admin Acetaminophen (Tylenol) 650 mg Q4H PRN ORAL fever 12/24/16 15:00 01/23/17 14:59 12/26/16 09:24 Albuterol/ Ipratropium (DuoNeb 0.5-3(2.5)mg/3ml) 3 ml Q4H PRN HHN Shortness of Breath 12/24/16 15:00 12/29/16 14:59 Chlorhexidine Gluconate (Dianne-Hex 2%) 1 applic DAILY TOPIC 12/25/16 09:00 01/24/17 08:59 12/29/16 09:27 Clotrimazole (Lotrimin) 1 applic EVERY 12 HOURS TOPIC 12/25/16 10:00 01/24/17 09:59 12/29/16 09:35 Dextrose (Dextrose 50%) STAT PRN IV Hypoglycemia 12/24/16 15:00 01/23/17 14:59 Heparin Sodium (Porcine) (Heparin 5000 units/ml) 5,000 units EVERY 12 HOURS SUBQ 12/24/16 21:00 01/23/17 20:59 12/25/16 22:16 Insulin Aspart (NovoLOG) BEFORE MEALS AND HS SUBQ 12/24/16 16:30 01/23/17 16:29 12/28/16 20:44 Lactulose (Cephulac) 30 gm THREE TIMES A DAY ORAL 12/25/16 09:00 01/24/17 08:59 12/29/16 09:27 Meropenem 1 gm/ Sodium Chloride 110 ml @ 220 mls/hr Q12H IVPB 12/28/16 10:00 01/02/17 09:59 12/29/16 09:28 Morphine Sulfate (Morphine Sulfate) 2 mg Q4H PRN IVP Moderate Pain (Pain Scale 4-6) 12/24/16 15:00 12/31/16 14:59 12/27/16 05:22 Nitroglycerin (Ntg) 0.4 mg Every 5 Minutes PRN SL Prn Chest Pain 12/24/16 15:00 01/23/17 14:59 Nystatin (Nystop Powder) 1 applic THREE TIMES A DAY TOPIC 12/25/16 13:00 01/24/17 12:59 12/29/16 09:35 Olanzapine (ZyPREXA) 5 mg BEDTIME ORAL 12/25/16 21:00 01/24/17 20:59 12/28/16 20:45 Ondansetron HCl (Zofran) 4 mg Q6H PRN IVP Nausea & Vomiting 12/24/16 15:00 01/23/17 14:59 12/27/16 05:21 Polyethylene Glycol (Miralax) 17 gm DAILYPRN PRN ORAL Constipation 12/24/16 15:00 01/23/17 14:59 Sodium Chloride 1,000 ml @ 75 mls/hr [id number] IV 12/24/16 15:30 01/23/17 15:29 12/28/16 22:01 Temazepam (Restoril) 15 mg HSPRN PRN ORAL Insomnia 12/24/16 15:00 12/31/16 14:59 DIONI TRIANA Dec 29, 2016 12:12
--- NOTE | 2016-12-29 14:22 | General Progress Note ---
Assessment/Plan Status: stable Assessment/Plan cont current meds Subjective Neurologic/Psychiatric: Reports: anxiety, depressed, emotional problems Allergies: Coded Allergies: PENICILLINS (Unverified Allergy, Unknown, 03/22/15) Subjective more confused today, was unable to answer questions appropriately Objective Last 24 Hour Vital Signs Date Time Temp Pulse Resp B/P (MAP) Pulse Ox O2 Delivery O2 Flow Rate FiO2 12/29/16 12:00 97.9 97 22 104/70 97 Room Air 12/29/16 12:00 98 12/29/16 08:37 Room Air 12/29/16 08:37 99 Room Air 12/29/16 08:36 109 18 Room Air 21 12/29/16 08:00 98.2 95 18 110/51 98 Room Air 12/29/16 08:00 111 12/29/16 04:40 97.9 98 21 137/66 Nasal Cannula 12/29/16 03:39 105 12/29/16 00:28 97.9 99 21 150/47 100 Nasal Cannula 12/28/16 23:50 86 12/28/16 20:06 92 12/28/16 20:00 97.9 91 20 141/70 100 Room Air 12/28/16 19:30 96 Room Air 21 12/28/16 19:30 90 18 Room Air 21 12/28/16 19:30 Room Air 21 12/28/16 16:29 97.7 95 20 147/66 96 Nasal Cannula 2.0 12/28/16 15:24 91 Laboratory Tests 12/29/16 12:45: Vancomycin Level Trough 16.6H Height (Feet): 5 Height (Inches): 5.00 Weight (Pounds): 234 General Appearance: no apparent distress, alert, confused, obese Neurologic: disoriented, depressed affect Oj Medel M.D. Dec 29, 2016 14:22
--- NOTE | 2016-12-29 16:20 | Infectious Diseases Prog Note ---
Assessment/Plan Assessment/Plan ASSESSMENT: The patient is a 76-year-old female with: Status post encephalopathy due to sepsis. History of pneumonia. Recurrent urinary tract infection. UCX : ESBL EColi and P mirabilis History of proximal ureteral stone with mild left hydronephrosis in 2016. +ve blood Cx : CoNS 04/22 ( m/l contaminant ) CKD. Diabetes. Obesity History of penicillin allergy, however, the patient has tolerated Carbapenem in the past Cirrhosis. Splenomegaly. PLAN: We will continue the patient on Merrem d# 2 / 10 , upon DC will change to Invanz to complete the course, 12/29 SP Rocephin and IV Vanco d# 3 SP Merrem d# 2 Monitor CBC. Monitor BMP Subjective Constitutional: Denies: no symptoms, fever, chills, fatigue, anorexia, drenching sweats, other Allergies: Coded Allergies: PENICILLINS (Unverified Allergy, Unknown, 03/22/15) Objective Vital Signs Last 24 Hour Vital Signs Date Time Temp Pulse Resp B/P (MAP) Pulse Ox O2 Delivery O2 Flow Rate FiO2 12/29/16 12:00 97.9 97 22 104/70 97 Room Air 12/29/16 12:00 98 12/29/16 08:37 Room Air 12/29/16 08:37 99 Room Air 12/29/16 08:36 109 18 Room Air 12/29/16 08:00 98.2 95 18 110/51 98 Room Air 12/29/16 08:00 111 12/29/16 04:40 97.9 98 21 137/66 Nasal Cannula 12/29/16 03:39 105 12/29/16 00:28 97.9 99 21 150/47 100 Nasal Cannula 12/28/16 23:50 86 12/28/16 20:06 92 12/28/16 20:00 97.9 91 20 141/70 100 Room Air 12/28/16 19:30 96 Room Air 21 12/28/16 19:30 90 18 Room Air 21 12/28/16 19:30 Room Air 21 12/28/16 16:29 97.7 95 20 147/66 96 Nasal Cannula 2.0 Height (Feet): 5 Height (Inches): 5.00 Weight (Pounds): 234 HEENT: anicteric Respiratory/Chest: normal breath sounds Cardiovascular: regular rhythm Abdomen: no organomegaly Laboratory Tests Test 12/29/16 12:45 Vancomycin Level Trough 16.6 ug/mL (5.0-12.0) H Current Medications Medications (Trade) Dose Ordered Sig/Pavel Route PRN Reason Start Time Stop Time Status Last Admin Dose Admin Acetaminophen (Tylenol) 650 mg Q4H PRN ORAL fever 12/24/16 15:00 01/23/17 14:59 12/26/16 09:24 Chlorhexidine Gluconate (Dianne-Hex 2%) 1 applic DAILY TOPIC 12/25/16 09:00 01/24/17 08:59 12/29/16 09:27 Clotrimazole (Lotrimin) 1 applic EVERY 12 HOURS TOPIC 12/25/16 10:00 01/24/17 09:59 12/29/16 09:35 Dextrose (Dextrose 50%) STAT PRN IV Hypoglycemia 12/24/16 15:00 01/23/17 14:59 Heparin Sodium (Porcine) (Heparin 5000 units/ml) 5,000 units EVERY 12 HOURS SUBQ 12/24/16 21:00 01/23/17 20:59 12/25/16 22:16 Insulin Aspart (NovoLOG) BEFORE MEALS AND HS SUBQ 12/24/16 16:30 01/23/17 16:29 12/28/16 20:44 Lactulose (Cephulac) 30 gm THREE TIMES A DAY ORAL 12/25/16 09:00 01/24/17 08:59 12/29/16 13:58 Meropenem 1 gm/ Sodium Chloride 110 ml @ 220 mls/hr Q12H IVPB 12/28/16 10:00 01/02/17 09:59 12/29/16 09:28 Morphine Sulfate (Morphine Sulfate) 2 mg Q4H PRN IVP Moderate Pain (Pain Scale 4-6) 12/24/16 15:00 12/31/16 14:59 12/27/16 05:22 Nitroglycerin (Ntg) 0.4 mg Every 5 Minutes PRN SL Prn Chest Pain 12/24/16 15:00 01/23/17 14:59 Nystatin (Nystop Powder) 1 applic THREE TIMES A DAY TOPIC 12/25/16 13:00 01/24/17 12:59 12/29/16 13:59 Olanzapine (ZyPREXA) 5 mg BEDTIME ORAL 12/25/16 21:00 01/24/17 20:59 12/28/16 20:45 Ondansetron HCl (Zofran) 4 mg Q6H PRN IVP Nausea & Vomiting 12/24/16 15:00 01/23/17 14:59 12/27/16 05:21 Polyethylene Glycol (Miralax) 17 gm DAILYPRN PRN ORAL Constipation 12/24/16 15:00 01/23/17 14:59 Sodium Chloride 1,000 ml @ 75 mls/hr [id number] IV 12/24/16 15:30 01/23/17 15:29 12/29/16 15:52 Temazepam (Restoril) 15 mg HSPRN PRN ORAL Insomnia 12/24/16 15:00 12/31/16 14:59 LYLA ROJAS M.D. Dec 29, 2016 16:19
--- NOTE | 2016-12-29 18:32 | Internal Med Progress Note ---
Subjective Date of Service: Dec 29, 2016 Physician Name Katharina Guthrie Attending Physician Rl Tee MD Current Medications Medications (Trade) Dose Ordered Sig/Pavel Route PRN Reason Start Time Stop Time Status Last Admin Dose Admin Acetaminophen (Tylenol) 650 mg Q4H PRN ORAL fever 12/24/16 15:00 01/23/17 14:59 12/26/16 09:24 Chlorhexidine Gluconate (Dianne-Hex 2%) 1 applic DAILY TOPIC 12/25/16 09:00 01/24/17 08:59 12/29/16 09:27 Clotrimazole (Lotrimin) 1 applic EVERY 12 HOURS TOPIC 12/25/16 10:00 01/24/17 09:59 12/29/16 09:35 Dextrose (Dextrose 50%) STAT PRN IV Hypoglycemia 12/24/16 15:00 01/23/17 14:59 Heparin Sodium (Porcine) (Heparin 5000 units/ml) 5,000 units EVERY 12 HOURS SUBQ 12/24/16 21:00 01/23/17 20:59 12/25/16 22:16 Insulin Aspart (NovoLOG) BEFORE MEALS AND HS SUBQ 12/24/16 16:30 01/23/17 16:29 12/29/16 16:51 Lactulose (Cephulac) 30 gm THREE TIMES A DAY ORAL 12/25/16 09:00 01/24/17 08:59 12/29/16 17:54 Meropenem 1 gm/ Sodium Chloride 110 ml @ 220 mls/hr Q12H IVPB 12/28/16 10:00 01/02/17 09:59 12/29/16 09:28 Morphine Sulfate (Morphine Sulfate) 2 mg Q4H PRN IVP Moderate Pain (Pain Scale 4-6) 12/24/16 15:00 12/31/16 14:59 12/27/16 05:22 Nitroglycerin (Ntg) 0.4 mg Every 5 Minutes PRN SL Prn Chest Pain 12/24/16 15:00 01/23/17 14:59 Nystatin (Nystop Powder) 1 applic THREE TIMES A DAY TOPIC 12/25/16 13:00 01/24/17 12:59 12/29/16 17:55 Olanzapine (ZyPREXA) 5 mg BEDTIME ORAL 12/25/16 21:00 01/24/17 20:59 12/28/16 20:45 Ondansetron HCl (Zofran) 4 mg Q6H PRN IVP Nausea & Vomiting 12/24/16 15:00 01/23/17 14:59 12/27/16 05:21 Polyethylene Glycol (Miralax) 17 gm DAILYPRN PRN ORAL Constipation 12/24/16 15:00 01/23/17 14:59 Sodium Chloride 1,000 ml @ 75 mls/hr [id number] IV 12/24/16 15:30 01/23/17 15:29 12/29/16 15:52 Temazepam (Restoril) 15 mg HSPRN PRN ORAL Insomnia 12/24/16 15:00 12/31/16 14:59 Allergies: Coded Allergies: PENICILLINS (Unverified Allergy, Unknown, 03/22/15) ROS Limited/Unobtainable: No Constitutional: Reports: no symptoms HEENT: Reports: no symptoms Cardiovascular: Reports: no symptoms Respiratory: Reports: no symptoms Gastrointestinal/Abdominal: Reports: no symptoms Genitourinary: Reports: no symptoms Neurologic/Psychiatric: Reports: no symptoms Subjective 76 YO F admitted with altered mental status. Now UTI. Cover for Int Med-Dr Coronado. Objective Last Vital Signs Date Time Temp Pulse Resp B/P (MAP) Pulse Ox O2 Delivery O2 Flow Rate FiO2 12/29/16 16:00 97.9 101 16 131/80 100 Nasal Cannula 2.0 12/29/16 08:36 21 Laboratory Tests Test 12/29/16 12:45 Vancomycin Level Trough 16.6 ug/mL (5.0-12.0) H Intake and Output 12/29/16 12/30/16 19:00 07:00 Intake Total 410 ml Balance 410 ml IV Total 410 ml Objective General Appearance: WD/WN, no apparent distress, alert, obese EENT: PERRL/EOMI, normal ENT inspection Neck: non-tender, normal alignment, supple Cardiovascular: normal peripheral pulses, normal rate, regular rhythm, no gallop/murmur, no JVD Respiratory/Chest: chest wall non-tender, lungs clear, normal breath sounds, no respiratory distress, no accessory muscle use Abdomen: normal bowel sounds, non tender, soft, no organomegaly, no mass Extremities: normal range of motion Edema: trace edema Neurologic: public health epidemiologist II-XII grossly normal, no motor/sensory deficits Skin: normal pigmentation, warm/dry Assessment/Plan Problem List: (1) Cardiomyopathy (2) Diabetes mellitus, type II Assessment & Plan: Continue novolog sliding scale. (3) HTN (hypertension) (4) Altered mental status Assessment & Plan: ?due to UTI? (5) UTI (urinary tract infection) Assessment & Plan: ESBL E. Coli and proteus mirabilis. D/C ceftriaxone per ID ; start meropenem (6) Anemia (7) Sleep apnea, obstructive (8) GERD (gastroesophageal reflux disease) (9) Hypercholesteremia Status: progressing Assessment/Plan Discharge planning: KATHARINA Rosa Dec 29, 2016 18:32
[2016-12-29] MEDS ORDERED: Nitroglycerin Subl 0.4mg tab (Bottle Of 25) SL PRN (19:00)
[2016-12-29] MEDS ORDERED: Morphine Sulfate 2mg/ml Inj IVP PRN (20:00)
[2016-12-29] MEDS ORDERED: Miralax 17gm pkt ORAL PRN (20:00)
[2016-12-29] MEDS: Meropenem 1 GM in NS 110 ML IVPB SCH (21:13)
[2016-12-30] VITALS (9 sets, daily range): BP systolic 129–163; BP diastolic 61–79
[2016-12-30] MEDS: NovoLOG Insulin Flexpen SUBQ SCH ×3 (06:30→16:53)
[2016-12-30 06:31] LABS: MEAN CORPUSCULAR HEMOGLOBIN 32.9 PG (27.0-31.0); MEAN CORPUSCULAR HGB CONC 32.5 G/DL (32.0-36.0); MEAN CORPUSCULAR VOLUME 101 FL (80-99); MEAN PLATELET VOLUME 6.1 FL (6.5-10.1); PLATELET COUNT 92 K/UL (150-450); RED BLOOD COUNT 2.72 M/UL (4.20-5.40); RED CELL DISTRIBUTION WIDTH 14.8 % (11.6-14.8); WHITE BLOOD COUNT 5.8 K/UL (4.8-10.8)
[2016-12-30 06:47] LABS: ANION GAP 11 (5-15); CALCIUM 9.4 mg/dL (8.6-10.2); CARBON DIOXIDE 19 mEQ/L (20-30); CHLORIDE 113 mEQ/L (98-107); CREATININE 1.2 mg/dL (0.5-0.9); HEMOLYSIS 2; POTASSIUM 4.4 mEQ/L (3.4-4.9); SODIUM 143 mEQ/L (135-145)
[2016-12-30] MEDS ORDERED: Phenylephrine 10mg/ml Vial ONE (07:00)
[2016-12-30] MEDS ORDERED: Lidocaine 1% MPF 10mg/ml 5ml ONE (07:00)
[2016-12-30] MEDS ORDERED: LR 1000ml ONE (07:00)
[2016-12-30] MEDS ORDERED: Propofol 200mg/20ml IV ONE (07:00)
[2016-12-30] MEDS ORDERED: NS 550ML IV ONE (07:00)
--- NOTE | 2016-12-30 07:10 | Pre-Procedure Note/Attestation ---
Pre-Procedure Note/Attestation Complete Prior to Procedure Planned Procedure: not applicable Procedure Narrative: egd,colon Indications for Procedure Pre-Operative Diagnosis: heme (+) Attestation I attest that I discussed the nature of the procedure; its benefits; risks and complications; and alternatives (and the risks and benefits of such alternatives ), prior to the procedure, with the patient (or the patient's legal brewery representative). I attest that, if there was a reasonable possibility of needing a blood transfusion, the patient (or the patient's legal brewery representative) was given the [facility] standardized written summary, pursuant to the Aurelio Jimbo Blood Safety Act ([place] Health and Safety Code # 1645, as amended). I attest that I re-evaluated the patient just prior to the surgery and that there has been no change in the patient's H&P, except as documented below: KIERSTEN DAVIES Dec 30, 2016 07:10
--- NOTE | 2016-12-30 07:24 | General Progress Note ---
Assessment/Plan Assessment/Plan Assessment - DURANT, with cirrhosis - coagulopathy - rising CEA - ? source - Anemia - Heme (+) Stools - Functional decline Recommendations - Consider [employer] eval - EGD/Colon Today - lactulose - follow labs POST PROCEDURE ADDENDUM EGD: - erosive gastritis with small bits of blood (source of heme + stools) - duodenitis - 5 mm gastric polyp - biopsied - 2-3 cm HH - No varicies Colon: - Normal to terminal ileum - fair preparation Subjective Allergies: Coded Allergies: PENICILLINS (Unverified Allergy, Unknown, 03/22/15) Subjective feels OK no new complaints NPO for EGD/colon tachycardic last PM coagulopathy noted Objective Last 24 Hour Vital Signs Date Time Temp Pulse Resp B/P (MAP) Pulse Ox O2 Delivery O2 Flow Rate FiO2 12/30/16 05:00 104 148/78 12/30/16 04:00 97.7 111 20 162/79 99 Nasal Cannula 2.0 12/29/16 23:32 97.9 111 19 145/81 98 Nasal Cannula 2.0 12/29/16 20:00 97.5 103 18 147/89 100 Nasal Cannula 2.0 12/29/16 19:30 98 18 Room Air 21 12/29/16 19:30 95 Room Air 21 12/29/16 19:30 Room Air 21 12/29/16 16:00 97.9 101 16 131/80 100 Nasal Cannula 2.0 12/29/16 12:00 97.9 97 22 104/70 97 Room Air 12/29/16 12:00 98 12/29/16 08:37 Room Air 12/29/16 08:37 99 Room Air 12/29/16 08:36 109 18 Room Air 21 12/29/16 08:00 98.2 95 18 110/51 98 Room Air 12/29/16 08:00 111 Laboratory Tests 12/29/16 12:45: Vancomycin Level Trough 16.6H 12/30/16 05:30: White Blood Count 5.8, Red Blood Count 2.72L, Hemoglobin 8.9L, Hematocrit 27.5L , Mean Corpuscular Volume 101H, Mean Corpuscular Hemoglobin 32.9H, Mean Corpuscular Hemoglobin Concent 32.5, Red Cell Distribution Width 14.8, Platelet Count 92L, Mean Platelet Volume 6.1L, Neutrophils (%) (Auto) , Lymphocytes (%) ( Auto) , Monocytes (%) (Auto) , Eosinophils (%) (Auto) , Basophils (%) (Auto) , Neutrophils % (Manual) [Pending], Lymphocytes % (Manual) [Pending], Platelet Estimate [Pending], Platelet Morphology [Pending], Sodium Level 143, Potassium Level 4.4, Chloride Level 113H, Carbon Dioxide Level 19L, Anion Gap 11, Blood Urea Nitrogen 11, Creatinine 1.2H, Estimat Glomerular Filtration Rate , Glucose Level 104, Calcium Level 9.4 Height (Feet): 5 Height (Inches): 5.00 Weight (Pounds): 234 Objective Obese WW NCAT supple CTA RR/tachy Soft ND NT trace edema non focal KIERSTEN DAVIES Dec 30, 2016 07:23
--- NOTE | 2016-12-30 07:57 | Immediate Post-Op Evaluation ---
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
--- NOTE | 2016-12-30 08:03 | Anethesia Preoperative Eval ---
Anesthesia Pre-op PMH/ROS General Date of Evaluation: Dec 30, 2016 Time of Evaluation: 07:00 Anesthesiologist: denita ASA Score: ASA 3 Mallampati Score Class I : Soft palate, uvula, fauces, pillars visible Class II: Soft palate, uvula, fauces visible Class III: Soft palate, base of uvula visible Class IV: Only hard plate visible Mallampati Classification: Class III Surgeon: Beth Diagnosis: Anemia Surgical Procedure: EGD/Colonoscopy Anesthesia History: none Family History: no anesthesia problems Allergies: Coded Allergies: PENICILLINS (Unverified Allergy, Unknown, 03/22/15) Medications: see eMAR Past Medical History Cardiovascular: Reports: HTN, CAD, other - cardiomyopathy; ef 60% Pulmonary: Reports: COPD, YELENA Gastrointestinal/Genitourinary: Reports: GERD, CRI Neurologic/Psychiatric: Denies: dementia, CVA, depression/anxiety, TIA, other Endocrine: Reports: DM HEENT: Denies: cataract (L), cataract (R), glaucoma, ENTERPRISE (L), ENTERPRISE (R), other Hematology/Immune: Reports: anemia Musculoskeletal/Integumentary: Denies: OA, RA, DJD, DDD, edema, other Other: obesity - morbid PMH Narrative: 1. Type 2 diabetes. 2. Hypertension. 3. Obstructive sleep apnea. 4. Gastroesophageal reflux disease. 5. Hypercholesterolemia. 6. History of cardiomyopathy. 7. Liver cirrhosis. 8. Fatty liver. PSxH Narrative: knee surgery Anesthesia Pre-op Phys. Exam Physician Exam Last Vital Signs Date Time Temp Pulse Resp B/P (MAP) Pulse Ox O2 Delivery O2 Flow Rate FiO2 12/30/16 07:57 113 12/30/16 05:00 148/78 12/30/16 04:00 97.7 20 99 Nasal Cannula 2.0 12/29/16 19:30 21 Constitutional: NAD Neurologic: CN 2-12 intact Cardiovascular: RRR Respiratory: CTA Gastrointestinal: S/NT/ND Airway Exam Mallampati Classification 3 Mallampati Score: Class III MO: limited Neck: thick TMD: 1fb ROM: limited Anesthesia Pre-op A/P Labs Hematology Test 12/30/16 05:30 White Blood Count 5.8 K/UL (4.8-10.8) Red Blood Count 2.72 M/UL (4.20-5.40) L Hemoglobin 8.9 G/DL (12.0-16.0) L Hematocrit 27.5 % (37.0-47.0) L Mean Corpuscular Volume 101 FL (80-99) H Mean Corpuscular Hemoglobin 32.9 PG (27.0-31.0) H Mean Corpuscular Hemoglobin Concent 32.5 G/DL (32.0-36.0) Red Cell Distribution Width 14.8 % (11.6-14.8) Platelet Count 92 K/UL (150-450) L Mean Platelet Volume 6.1 FL (6.5-10.1) L Neutrophils (%) (Auto) % (45.0-75.0) Lymphocytes (%) (Auto) % (20.0-45.0) Monocytes (%) (Auto) % (1.0-10.0) Eosinophils (%) (Auto) % (0.0-3.0) Basophils (%) (Auto) % (0.0-2.0) Neutrophils % (Manual) Pending Lymphocytes % (Manual) Pending Platelet Estimate Pending Platelet Morphology Pending Chemistry Test 12/30/16 05:30 Sodium Level 143 mEQ/L (135-145) Potassium Level 4.4 mEQ/L (3.4-4.9) Chloride Level 113 mEQ/L (98-107) H Carbon Dioxide Level 19 mEQ/L (20-30) L Anion Gap 11 (5-15) Blood Urea Nitrogen 11 mg/dL (7-23) Creatinine 1.2 mg/dL (0.5-0.9) H Estimat Glomerular Filtration Rate mL/min (>60) Glucose Level 104 mg/dL (74-106) Calcium Level 9.4 mg/dL (8.6-10.2) Studies Pre-op Studies: EKG - st Risk Assessment & Plan Plan: mac Status Change Before Surgery: No Pre-Antibiotics Drug: none TERRA NORMAN CRNA Dec 30, 2016 08:03
--- NOTE | 2016-12-30 08:04 | 48 Hour Post Anesthesia Eval ---
Post Anesthesia Evaluation Procedure: EGD/Colonoscopy Date of Evaluation: Dec 30, 2016 Time of Evaluation: 08:04 Blood Pressure Systolic: 161 0: 75 Pulse Rate: 111 Respiratory Rate: 14 O2 Sat by Pulse Oximetry: 100 Airway: patent Nausea: No Vomiting: No Hydration Status: adequate Cardiopulmonary Status: stable Mental Status/LOC: patient returned to baseline Follow-up Care/Observations: per GI Post-Anesthesia Complications: none Follow-up care needed: N/A TERRA NORMAN CRNA Dec 30, 2016 08:04
[2016-12-30] MEDS: Heparin 5000 units/ml inj SUBQ SCH (09:00)
--- NOTE | 2016-12-30 09:00 | Endoscopy Procedure Note ---
Endoscopy Procedure Note Indication for Procedure: heme + Operative Findings/Diagnosis: see proc report Specimen: yes Pt Tolerated Procedure Well: No Estimated Blood Loss: none Anesthesiologist: DULCE Anesthesia: MAC Medication Given: see anesthesia record Implant(s) used?: No 50 yrs or older w/o bx or poly: Not Applicable 10yrs. F/U not recommended: Not Applicable If not recommended, why?: KIERSTEN DAVIES Dec 30, 2016 09:00
--- NOTE | 2016-12-30 09:01 | Brief Operative Note ---
Immediate Post Operative Note Operative Note Chief Complaint: Heme + Pre-op Diagnosis: heme (+) Procedure: EGD Colon Post-op Diagnosis: EGD: - erosive gastritis with small bits of blood (source of heme + stools) - duodenitis - 5 mm gastric polyp - biopsied - 2-3 cm HH - No varicies Colon: - Normal to terminal ileum - fair preparation Surgeon: Brian Anesthesiologist: DULCE Anesthesia: moderate sedation Specimen: yes Complications: none Condition: stable Fluids: see anesth report Estimated Blood Loss: none Drains: none Implant(s) used?: No KIERSTEN DAVIES Dec 30, 2016 09:01
[2016-12-30] MEDS: Lactulose 20gm/30ml UDC ORAL SCH ×3 (09:09→17:09)
[2016-12-30] MEDS: Nystatin Powder 100,000 units/gm 15gm TOPIC SCH ×3 (09:10→16:50)
[2016-12-30 09:24] LABS: ANISOCYTOSIS 1+; BAND NEUTROPHILS % (MANUAL) 0 % (0-8); BASOPHILS % (MANUAL) 0 % (0-2); EOSINOPHILS % (MANUAL) 7 % (0-3); HYPOCHROMASIA 1+; LYMPHOCYTES % (MANUAL) 27 % (20-45); NEUTROPHILS % (MANUAL) 57 % (45-75); PLATELET ESTIMATE DECREASED; PLATELET MORPHOLOGY NORMAL; TOTAL CELLS COUNTED 100
[2016-12-30] MEDS: Meropenem 1 GM in NS 110 ML IVPB SCH (09:24)
[2016-12-30 09:25] LABS: SCHISTOCYTES 1+; TEAR DROP CELLS 1+
[2016-12-30] MEDS ORDERED: Heparin 2000 units/Ns 1000ml INJ ONE (11:30)
[2016-12-30] MEDS ORDERED: Lidocaine 1% Plain 30 ml INJ ONE (11:30)
--- NOTE | 2016-12-30 13:15 | General Progress Note ---
Assessment/Plan Status: stable, progressing Assessment/Plan cont current meds Subjective Allergies: Coded Allergies: PENICILLINS (Unverified Allergy, Unknown, 03/22/15) Subjective the pt is still confused today, was unable to answer questions appropriately Objective Last 24 Hour Vital Signs Date Time Temp Pulse Resp B/P (MAP) Pulse Ox O2 Delivery O2 Flow Rate FiO2 12/30/16 12:02 97.8 114 20 129/61 98 Nasal Cannula 2.0 12/30/16 08:22 103 22 Nasal Cannula 2.0 12/30/16 08:22 Nasal Cannula 2.0 12/30/16 08:22 99 Nasal Cannula 2.0 12/30/16 08:10 97.5 105 17 145/70 99 Nasal Cannula 3.0 12/30/16 08:04 111 14 100 12/30/16 08:01 20 100 12/30/16 07:57 113 12/30/16 07:55 110 18 138/68 99 Nasal Cannula 3.0 12/30/16 07:50 110 18 163/75 99 Nasal Cannula 3.0 12/30/16 07:45 97.0 110 18 154/77 99 Nasal Cannula 3.0 12/30/16 05:00 104 148/78 12/30/16 04:00 97.7 111 20 162/79 99 Nasal Cannula 2.0 12/29/16 23:32 97.9 111 19 145/81 98 Nasal Cannula 2.0 12/29/16 20:00 97.5 103 18 147/89 100 Nasal Cannula 2.0 12/29/16 19:30 98 18 Room Air 21 12/29/16 19:30 95 Room Air 21 12/29/16 19:30 Room Air 21 12/29/16 16:00 97.9 101 16 131/80 100 Nasal Cannula 2.0 Intake and Output 12/30/16 12/31/16 19:00 07:00 Intake Total 1305 ml Balance 1305 ml IV Total 1305 ml Laboratory Tests 12/30/16 05:30: White Blood Count 5.8, Red Blood Count 2.72L, Hemoglobin 8.9L, Hematocrit 27.5L , Mean Corpuscular Volume 101H, Mean Corpuscular Hemoglobin 32.9H, Mean Corpuscular Hemoglobin Concent 32.5, Red Cell Distribution Width 14.8, Platelet Count 92L, Mean Platelet Volume 6.1L, Neutrophils (%) (Auto) , Lymphocytes (%) ( Auto) , Monocytes (%) (Auto) , Eosinophils (%) (Auto) , Basophils (%) (Auto) , Differential Total Cells Counted 100, Neutrophils % (Manual) 57, Lymphocytes % ( Manual) 27, Monocytes % (Manual) 9, Eosinophils % (Manual) 7H, Basophils % ( Manual) 0, Band Neutrophils 0, Platelet Estimate DecreasedL, Platelet Morphology Normal, Hypochromasia 1+, Anisocytosis 1+, Tear Drop Cells 1+, Schistocytes 1+, Sodium Level 143, Potassium Level 4.4, Chloride Level 113H, Carbon Dioxide Level 19L, Anion Gap 11, Blood Urea Nitrogen 11, Creatinine 1.2H , Estimat Glomerular Filtration Rate , Glucose Level 104, Calcium Level 9.4 Height (Feet): 5 Height (Inches): 5.00 Weight (Pounds): 234 General Appearance: no apparent distress, alert, confused, obese Neurologic: alert, responsive, disoriented, depressed affect Oj Medel M.D. Dec 30, 2016 13:15
--- NOTE | 2016-12-30 13:30 | Diagnostic Imaging Report ---
Indication: termination clerk venous access Findings: After the indications, procedure, risks, complications, and alternatives of the procedure were explained, written informed consent was obtained. The right upper extremity was prepped with alcohol. All elements of maximal sterile barrier technique were followed including usage of a cap, mask, sterile gown, sterile gloves, hand hygiene and a large sterile sheet. Sonographic evaluation of the upper extremity was performed demonstrating a patent and compressible cephalic vein. Access was obtained under real-time ultrasound guidance and digital image was saved and archived. An .018 wire was introduced. Needle exchanged for a 5 Kazakh peel-away sheath. Measurements were obtained. A 5 Kazakh dual-lumen Power PICC line catheter was cut to 40 cm and introduced over the wire. Peel-away sheath and wire were removed.Catheter was secured to the skin using 2-0 Prolene suture. Both ports aspirate and flush easily. Fluoroscopic Images show distal tip in the superior vena cava. Total fluoroscopic times O.1 minute Impression: Successful placement of an upper extremity PICC line catheter
--- NOTE | 2016-12-30 16:28 | Pulmonology Progress Note ---
Assessment/Plan Problems: (1) Altered level of consciousness (2) Generalized weakness (3) Cirrhosis (4) Elevated CEA (5) Anemia (6) Sleep apnea, obstructive (7) DM (diabetes mellitus) Assessment/Plan prbc prn OB positive CT abdomen and pelvis reviewed, continue abx colonoscopy was normal, egd showed severe gastritis echo reviewed, EF is 60% Subjective ROS Limited/Unobtainable: No Constitutional: Reports: no symptoms HEENT: Repors: no symptoms Allergies: Coded Allergies: PENICILLINS (Unverified Allergy, Unknown, 03/22/15) Objective Last 24 Hour Vital Signs Date Time Temp Pulse Resp B/P (MAP) Pulse Ox O2 Delivery O2 Flow Rate FiO2 12/30/16 16:07 97.7 110 20 157/74 100 Nasal Cannula 2.0 12/30/16 12:02 97.8 114 20 129/61 98 Nasal Cannula 2.0 12/30/16 08:22 103 22 Nasal Cannula 2.0 12/30/16 08:22 Nasal Cannula 2.0 12/30/16 08:22 99 Nasal Cannula 2.0 12/30/16 08:10 97.5 105 17 145/70 99 Nasal Cannula 3.0 12/30/16 08:04 111 14 100 12/30/16 08:01 20 100 12/30/16 07:57 113 12/30/16 07:55 110 18 138/68 99 Nasal Cannula 3.0 12/30/16 07:50 110 18 163/75 99 Nasal Cannula 3.0 12/30/16 07:45 97.0 110 18 154/77 99 Nasal Cannula 3.0 12/30/16 05:00 104 148/78 12/30/16 04:00 97.7 111 20 162/79 99 Nasal Cannula 2.0 12/29/16 23:32 97.9 111 19 145/81 98 Nasal Cannula 2.0 12/29/16 20:00 97.5 103 18 147/89 100 Nasal Cannula 2.0 12/29/16 19:30 98 18 Room Air 21 12/29/16 19:30 95 Room Air 21 12/29/16 19:30 Room Air 21 Intake and Output 12/30/16 12/31/16 19:00 07:00 Intake Total 1665 ml Balance 1665 ml Intake Oral 360 ml IV Total 1305 ml # Voids 2 # Bowel Movements 1 General Appearance: WD/WN HEENT: normocephalic, atraumatic Respiratory/Chest: chest wall non-tender, lungs clear Cardiovascular: normal peripheral pulses, normal rate Abdomen: normal bowel sounds, soft, non tender Genitourinary: normal external genitalia Extremities: no cyanosis Skin: no lesions Neurologic/Psychiatric: no motor/sensory deficits Lymphatic: no neck adenopathy Laboratory Tests 12/30/16 05:30: White Blood Count 5.8, Red Blood Count 2.72L, Hemoglobin 8.9L, Hematocrit 27.5L , Mean Corpuscular Volume 101H, Mean Corpuscular Hemoglobin 32.9H, Mean Corpuscular Hemoglobin Concent 32.5, Red Cell Distribution Width 14.8, Platelet Count 92L, Mean Platelet Volume 6.1L, Neutrophils (%) (Auto) , Lymphocytes (%) ( Auto) , Monocytes (%) (Auto) , Eosinophils (%) (Auto) , Basophils (%) (Auto) , Differential Total Cells Counted 100, Neutrophils % (Manual) 57, Lymphocytes % ( Manual) 27, Monocytes % (Manual) 9, Eosinophils % (Manual) 7H, Basophils % ( Manual) 0, Band Neutrophils 0, Platelet Estimate DecreasedL, Platelet Morphology Normal, Hypochromasia 1+, Anisocytosis 1+, Tear Drop Cells 1+, Schistocytes 1+, Sodium Level 143, Potassium Level 4.4, Chloride Level 113H, Carbon Dioxide Level 19L, Anion Gap 11, Blood Urea Nitrogen 11, Creatinine 1.2H , Estimat Glomerular Filtration Rate , Glucose Level 104, Calcium Level 9.4 Current Medications Medications (Trade) Dose Ordered Sig/Pavel Route PRN Reason Start Time Stop Time Status Last Admin Dose Admin Acetaminophen (Tylenol) 650 mg Q4H PRN ORAL fever 12/29/16 20:00 01/23/17 19:59 Clotrimazole (Lotrimin) 1 applic EVERY 12 HOURS TOPIC 12/29/16 21:00 01/24/17 09:59 12/30/16 09:10 Dextrose (Dextrose 50%) STAT PRN IV Hypoglycemia 12/29/16 20:00 01/28/17 19:59 Heparin Sodium (Porcine) (Heparin 5000 units/ml) 5,000 units EVERY 12 HOURS SUBQ 12/29/16 21:00 01/23/17 20:59 Insulin Aspart (NovoLOG) BEFORE MEALS AND HS SUBQ 12/29/16 21:00 01/23/17 16:29 12/30/16 11:54 Lactulose (Cephulac) 30 gm THREE TIMES A DAY ORAL 12/30/16 09:00 01/24/17 08:59 12/30/16 13:58 Meropenem 1 gm/ Sodium Chloride 110 ml @ 220 mls/hr Q12H IVPB 12/29/16 22:00 01/02/17 09:59 12/30/16 09:24 Morphine Sulfate (Morphine Sulfate) 2 mg Q4H PRN IVP Moderate Pain (Pain Scale 4-6) 12/29/16 20:00 12/31/16 19:59 Nitroglycerin (Ntg) 0.4 mg Every 5 Minutes PRN SL Prn Chest Pain 12/29/16 19:00 01/23/17 14:59 Nystatin (Nystop Powder) 1 applic THREE TIMES A DAY TOPIC 12/30/16 09:00 01/24/17 12:59 12/30/16 13:58 Olanzapine (ZyPREXA) 5 mg BEDTIME ORAL 12/29/16 21:00 01/24/17 20:59 12/29/16 21:13 Ondansetron HCl (Zofran) 4 mg Q6H PRN IVP Nausea & Vomiting 12/29/16 20:00 01/23/17 19:59 Polyethylene Glycol (Miralax) 17 gm DAILYPRN PRN ORAL Constipation 12/29/16 20:00 01/28/17 19:59 Sodium Chloride 1,000 ml @ 75 mls/hr [id number] IV 12/29/16 20:15 01/23/17 20:14 12/30/16 09:13 Temazepam (Restoril) 15 mg HSPRN PRN ORAL Insomnia 12/29/16 20:00 01/05/17 19:59 DIONI TRIANA Dec 30, 2016 16:28
[2016-12-30] MEDS ORDERED: INVANZ1 GM IVPB ×2 (17:27→19:33)
--- NOTE | 2016-12-30 18:29 | Internal Med Progress Note ---
Subjective Date of Service: Dec 30, 2016 Physician Name Jed Guthrie Attending Physician Rl Tee MD Current Medications Medications (Trade) Dose Ordered Sig/Pavel Route PRN Reason Start Time Stop Time Status Last Admin Dose Admin Acetaminophen (Tylenol) 650 mg Q4H PRN ORAL fever 12/29/16 20:00 01/23/17 19:59 Clotrimazole (Lotrimin) 1 applic EVERY 12 HOURS TOPIC 12/29/16 21:00 01/24/17 09:59 12/30/16 09:10 Dextrose (Dextrose 50%) STAT PRN IV Hypoglycemia 12/29/16 20:00 01/28/17 19:59 Heparin Sodium (Porcine) (Heparin 5000 units/ml) 5,000 units EVERY 12 HOURS SUBQ 12/29/16 21:00 01/23/17 20:59 Insulin Aspart (NovoLOG) BEFORE MEALS AND HS SUBQ 12/29/16 21:00 01/23/17 16:29 12/30/16 16:53 Lactulose (Cephulac) 30 gm THREE TIMES A DAY ORAL 12/30/16 09:00 01/24/17 08:59 12/30/16 17:09 Meropenem 1 gm/ Sodium Chloride 110 ml @ 220 mls/hr Q12H IVPB 12/29/16 22:00 01/02/17 09:59 12/30/16 09:24 Morphine Sulfate (Morphine Sulfate) 2 mg Q4H PRN IVP Moderate Pain (Pain Scale 4-6) 12/29/16 20:00 12/31/16 19:59 Nitroglycerin (Ntg) 0.4 mg Every 5 Minutes PRN SL Prn Chest Pain 12/29/16 19:00 01/23/17 14:59 Nystatin (Nystop Powder) 1 applic THREE TIMES A DAY TOPIC 12/30/16 09:00 01/24/17 12:59 12/30/16 16:50 Olanzapine (ZyPREXA) 5 mg BEDTIME ORAL 12/29/16 21:00 01/24/17 20:59 12/29/16 21:13 Ondansetron HCl (Zofran) 4 mg Q6H PRN IVP Nausea & Vomiting 12/29/16 20:00 01/23/17 19:59 Polyethylene Glycol (Miralax) 17 gm DAILYPRN PRN ORAL Constipation 12/29/16 20:00 01/28/17 19:59 Sodium Chloride 1,000 ml @ 75 mls/hr [id number] IV 12/29/16 20:15 01/23/17 20:14 12/30/16 09:13 Temazepam (Restoril) 15 mg HSPRN PRN ORAL Insomnia 12/29/16 20:00 01/05/17 19:59 Allergies: Coded Allergies: PENICILLINS (Unverified Allergy, Unknown, 03/22/15) ROS Limited/Unobtainable: No Constitutional: Reports: no symptoms HEENT: Reports: no symptoms Cardiovascular: Reports: no symptoms Respiratory: Reports: no symptoms Gastrointestinal/Abdominal: Reports: no symptoms Genitourinary: Reports: no symptoms Neurologic/Psychiatric: Reports: no symptoms Subjective 76 YO F admitted with altered mental status. Now UTI. Cover for Int Med-Dr Coronado. Await transfer to [facility] Objective Last Vital Signs Date Time Temp Pulse Resp B/P (MAP) Pulse Ox O2 Delivery O2 Flow Rate FiO2 12/30/16 16:07 97.7 110 20 157/74 100 Nasal Cannula 2.0 12/29/16 19:30 21 Laboratory Tests Test 12/30/16 05:30 White Blood Count 5.8 K/UL (4.8-10.8) Red Blood Count 2.72 M/UL (4.20-5.40) L Hemoglobin 8.9 G/DL (12.0-16.0) L Hematocrit 27.5 % (37.0-47.0) L Mean Corpuscular Volume 101 FL (80-99) H Mean Corpuscular Hemoglobin 32.9 PG (27.0-31.0) H Mean Corpuscular Hemoglobin Concent 32.5 G/DL (32.0-36.0) Red Cell Distribution Width 14.8 % (11.6-14.8) Platelet Count 92 K/UL (150-450) L Mean Platelet Volume 6.1 FL (6.5-10.1) L Neutrophils (%) (Auto) % (45.0-75.0) Lymphocytes (%) (Auto) % (20.0-45.0) Monocytes (%) (Auto) % (1.0-10.0) Eosinophils (%) (Auto) % (0.0-3.0) Basophils (%) (Auto) % (0.0-2.0) Differential Total Cells Counted 100 Neutrophils % (Manual) 57 % (45-75) Lymphocytes % (Manual) 27 % (20-45) Monocytes % (Manual) 9 % (1-10) Eosinophils % (Manual) 7 % (0-3) H Basophils % (Manual) 0 % (0-2) Band Neutrophils 0 % (0-8) Platelet Estimate Decreased L Platelet Morphology Normal Hypochromasia 1+ Anisocytosis 1+ Tear Drop Cells 1+ Schistocytes 1+ Sodium Level 143 mEQ/L (135-145) Potassium Level 4.4 mEQ/L (3.4-4.9) Chloride Level 113 mEQ/L (98-107) H Carbon Dioxide Level 19 mEQ/L (20-30) L Anion Gap 11 (5-15) Blood Urea Nitrogen 11 mg/dL (7-23) Creatinine 1.2 mg/dL (0.5-0.9) H Estimat Glomerular Filtration Rate mL/min (>60) Glucose Level 104 mg/dL (74-106) Calcium Level 9.4 mg/dL (8.6-10.2) Intake and Output 12/30/16 12/31/16 19:00 07:00 Intake Total 1665 ml Balance 1665 ml Intake Oral 360 ml IV Total 1305 ml # Voids 2 # Bowel Movements 1 Objective General Appearance: WD/WN, no apparent distress, alert, obese EENT: PERRL/EOMI, normal ENT inspection Neck: non-tender, normal alignment, supple Cardiovascular: normal peripheral pulses, normal rate, regular rhythm, no gallop/murmur, no JVD Respiratory/Chest: chest wall non-tender, lungs clear, normal breath sounds, no respiratory distress, no accessory muscle use Abdomen: normal bowel sounds, non tender, soft, no organomegaly, no mass Extremities: normal range of motion Edema: trace edema 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 (3) HTN (hypertension) (4) Altered mental status Assessment & Plan: ?due to UTI? (5) UTI (urinary tract infection) Assessment & Plan: ESBL E. Coli and proteus mirabilis. D/C ceftriaxone per ID ; start meropenem (6) Anemia (7) Sleep apnea, obstructive (8) GERD (gastroesophageal reflux disease) (9) Hypercholesteremia Assessment/Plan Discharge planning: JED Rosa Dec 30, 2016 18:29
[2016-12-30] MEDS ORDERED: Atenolol 25mg tab ORAL ONE (18:35)
--- NOTE | 2016-12-30 18:56 | Infectious Diseases Prog Note ---
Assessment/Plan Assessment/Plan ASSESSMENT: The patient is a 76-year-old female with: Status post encephalopathy due to sepsis. History of pneumonia. Recurrent urinary tract infection. UCX : ESBL EColi and P mirabilis History of proximal ureteral stone with mild left hydronephrosis in 2016. +ve blood Cx : CoNS 04/22 ( m/l contaminant ) CKD. Diabetes. Obesity History of penicillin allergy, however, the patient has tolerated Carbapenem in the past Cirrhosis. Splenomegaly. PLAN: We will continue the patient on Merrem d# 3 / 10 , upon DC will change to Invanz to complete the course, 12/29 SP Rocephin and IV Vanco d# 3 SP Merrem d# 2 Monitor CBC. Monitor BMP Subjective Allergies: Coded Allergies: PENICILLINS (Unverified Allergy, Unknown, 03/22/15) Subjective comfortable Objective Vital Signs Last 24 Hour Vital Signs Date Time Temp Pulse Resp B/P (MAP) Pulse Ox O2 Delivery O2 Flow Rate FiO2 12/30/16 18:51 110 157/74 12/30/16 16:07 97.7 110 20 157/74 100 Nasal Cannula 2.0 12/30/16 12:02 97.8 114 20 129/61 98 Nasal Cannula 2.0 12/30/16 08:22 103 22 Nasal Cannula 2.0 12/30/16 08:22 Nasal Cannula 2.0 12/30/16 08:22 99 Nasal Cannula 2.0 12/30/16 08:10 97.5 105 17 145/70 99 Nasal Cannula 3.0 12/30/16 08:04 111 14 100 12/30/16 08:01 20 100 12/30/16 07:57 113 12/30/16 07:55 110 18 138/68 99 Nasal Cannula 3.0 12/30/16 07:50 110 18 163/75 99 Nasal Cannula 3.0 12/30/16 07:45 97.0 110 18 154/77 99 Nasal Cannula 3.0 12/30/16 05:00 104 148/78 12/30/16 04:00 97.7 111 20 162/79 99 Nasal Cannula 2.0 12/29/16 23:32 97.9 111 19 145/81 98 Nasal Cannula 2.0 12/29/16 20:00 97.5 103 18 147/89 100 Nasal Cannula 2.0 12/29/16 19:30 98 18 Room Air 21 12/29/16 19:30 95 Room Air 21 12/29/16 19:30 Room Air 21 Height (Feet): 5 Height (Inches): 5.00 Weight (Pounds): 234 HEENT: mucous membranes moist Respiratory/Chest: no respiratory distress Cardiovascular: regular rhythm Abdomen: no organomegaly Laboratory Tests Test 12/30/16 05:30 White Blood Count 5.8 K/UL (4.8-10.8) Red Blood Count 2.72 M/UL (4.20-5.40) L Hemoglobin 8.9 G/DL (12.0-16.0) L Hematocrit 27.5 % (37.0-47.0) L Mean Corpuscular Volume 101 FL (80-99) H Mean Corpuscular Hemoglobin 32.9 PG (27.0-31.0) H Mean Corpuscular Hemoglobin Concent 32.5 G/DL (32.0-36.0) Red Cell Distribution Width 14.8 % (11.6-14.8) Platelet Count 92 K/UL (150-450) L Mean Platelet Volume 6.1 FL (6.5-10.1) L Neutrophils (%) (Auto) % (45.0-75.0) Lymphocytes (%) (Auto) % (20.0-45.0) Monocytes (%) (Auto) % (1.0-10.0) Eosinophils (%) (Auto) % (0.0-3.0) Basophils (%) (Auto) % (0.0-2.0) Differential Total Cells Counted 100 Neutrophils % (Manual) 57 % (45-75) Lymphocytes % (Manual) 27 % (20-45) Monocytes % (Manual) 9 % (1-10) Eosinophils % (Manual) 7 % (0-3) H Basophils % (Manual) 0 % (0-2) Band Neutrophils 0 % (0-8) Platelet Estimate Decreased L Platelet Morphology Normal Hypochromasia 1+ Anisocytosis 1+ Tear Drop Cells 1+ Schistocytes 1+ Sodium Level 143 mEQ/L (135-145) Potassium Level 4.4 mEQ/L (3.4-4.9) Chloride Level 113 mEQ/L (98-107) H Carbon Dioxide Level 19 mEQ/L (20-30) L Anion Gap 11 (5-15) Blood Urea Nitrogen 11 mg/dL (7-23) Creatinine 1.2 mg/dL (0.5-0.9) H Estimat Glomerular Filtration Rate mL/min (>60) Glucose Level 104 mg/dL (74-106) Calcium Level 9.4 mg/dL (8.6-10.2) Current Medications Medications (Trade) Dose Ordered Sig/Pavel Route PRN Reason Start Time Stop Time Status Last Admin Dose Admin Acetaminophen (Tylenol) 650 mg Q4H PRN ORAL fever 12/29/16 20:00 01/23/17 19:59 Clotrimazole (Lotrimin) 1 applic EVERY 12 HOURS TOPIC 12/29/16 21:00 01/24/17 09:59 12/30/16 09:10 Dextrose (Dextrose 50%) STAT PRN IV Hypoglycemia 12/29/16 20:00 01/28/17 19:59 Heparin Sodium (Porcine) (Heparin 5000 units/ml) 5,000 units EVERY 12 HOURS SUBQ 12/29/16 21:00 01/23/17 20:59 Insulin Aspart (NovoLOG) BEFORE MEALS AND HS SUBQ 12/29/16 21:00 01/23/17 16:29 12/30/16 16:53 Lactulose (Cephulac) 30 gm THREE TIMES A DAY ORAL 12/30/16 09:00 01/24/17 08:59 12/30/16 17:09 Meropenem 1 gm/ Sodium Chloride 110 ml @ 220 mls/hr Q12H IVPB 12/29/16 22:00 01/02/17 09:59 12/30/16 09:24 Morphine Sulfate (Morphine Sulfate) 2 mg Q4H PRN IVP Moderate Pain (Pain Scale 4-6) 12/29/16 20:00 12/31/16 19:59 Nitroglycerin (Ntg) 0.4 mg Every 5 Minutes PRN SL Prn Chest Pain 12/29/16 19:00 01/23/17 14:59 Nystatin (Nystop Powder) 1 applic THREE TIMES A DAY TOPIC 12/30/16 09:00 01/24/17 12:59 12/30/16 16:50 Olanzapine (ZyPREXA) 5 mg BEDTIME ORAL 12/29/16 21:00 01/24/17 20:59 12/29/16 21:13 Ondansetron HCl (Zofran) 4 mg Q6H PRN IVP Nausea & Vomiting 12/29/16 20:00 01/23/17 19:59 Polyethylene Glycol (Miralax) 17 gm DAILYPRN PRN ORAL Constipation 12/29/16 20:00 01/28/17 19:59 Sodium Chloride 1,000 ml @ 75 mls/hr [id number] IV 12/29/16 20:15 01/23/17 20:14 12/30/16 09:13 Temazepam (Restoril) 15 mg HSPRN PRN ORAL Insomnia 12/29/16 20:00 01/05/17 19:59 LYLA ROJAS M.D. Dec 30, 2016 18:56
[2016-12-30] MEDS ORDERED: Tubing IV Secondary IV ONE (20:00)
[2016-12-30] MEDS ORDERED: 1/2 NS 1000ml IV ONE (20:00)
--- NOTE | 2017-01-01 02:15 | Procedure Note ---
DATE OF PROCEDURE: 12/30/2016 Procedure: Upper gastrointestinal endoscopy with biopsy as well as colonoscopy. SURGEON: Yokasta Torres M.D. Anesthesia: Please see the separate anesthesiologist notes for details. PRE-ENDOSCOPIC DIAGNOSIS: Heme-positive stools. POST-ENDOSCOPIC DIAGNOSES: 1. Erosive gastritis with bits of blood in the stomach. 2. A 5 mm gastric polyp, which was biopsied. 3. Duodenitis. 4. A 2 to 3 cm hiatal hernia. 5. No esophageal varices. 6. Normal colonoscopy up to the terminal ileum. Procedure In Detail: The procedure, its risks, indications, alternatives, and possible complications were explained and informed consent was obtained. The patient was sedated and a diagnostic upper endoscope was introduced through the oropharynx and advanced to the duodenum. The colonoscope was then introduced into the rectum and advanced to the cecum and then terminal ileum. The findings during the withdrawal phase for both upper and lower endoscopies were explained above. The patient was sent to recovery in good condition. COMPLICATIONS: None. RECOMMENDATIONS: 1. Resume oral diet. 2. Continue medications. 3. Monitor CBC. Yokasta Torres M.D. DR: Mark JOB#: [id number] CC:
--- NOTE | 2017-01-01 11:41 | Discharge Summary ---
Discharge Summary Hospital Course Date of Admission Dec 24, 2016 at 11:23 Date of Discharge Dec 30, 2016 at 20:30 Admitting Diagnosis ALTERD MENTAL STATUS HPI Angela Inman is a 76 year old female who was admitted on Dec 24, 2016 at 11: 23 for Altered Mental Status Hospital Course [id number] Discharge Discharge Disposition Patient was discharged to SNF/Subacute Facility(03) Discharge Diagnoses: Teresa Canchola NP Jan 01, 2017 11:41
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
== END 2016-12-30 20:30 | DRG 871 ==
LOC: EDBD 09:01 → EDBEDREQ 10:20 → EMR 11:10 → 2E 11:23 → EDBEDREQ 14:31 → 2E 23:28 → 4W 12-29 18:36
PROC: 30233N1 Transfusion of Nonautologous Red Blood Cells into Peripheral Vein, Percutaneous Approach (ICD-10-PCS; 2016-12-26)
PROC: 0DJD8ZZ Inspection of Lower Intestinal Tract, Via Natural or Artificial Opening Endoscopic (ICD-10-PCS; 2016-12-30)
PROC: 0DB68ZX Excision of Stomach, Via Natural or Artificial Opening Endoscopic, Diagnostic (ICD-10-PCS; 2016-12-30)
PROC: 02HV33Z Insertion of Infusion Device into Superior Vena Cava, Percutaneous Approach (ICD-10-PCS; principal; 2016-12-30 07:13)
DX: A41.9 Sepsis, unspecified organism (principal); K29.61 Other gastritis with bleeding; G92 Toxic encephalopathy; I42.9 Cardiomyopathy, unspecified; E11.22 Type 2 diabetes mellitus with diabetic chronic kidney disease; R16.1 Splenomegaly, not elsewhere classified; N39.0 Urinary tract infection, site not specified; K74.60 Unspecified cirrhosis of liver; D64.9 Anemia, unspecified; Z79.4 Long term (current) use of insulin; G47.33 Obstructive sleep apnea (adult) (pediatric); K21.9 Gastro-esophageal reflux disease without esophagitis; E78.00 Pure hypercholesterolemia, unspecified; Z79.02 Long term (current) use of antithrombotics/antiplatelets; Z88.0 Allergy status to penicillin; B96.20 Unspecified Escherichia coli [E. coli] as the cause of diseases classified elsewhere; Z16.12 Extended spectrum beta lactamase (ESBL) resistance; B96.4 Proteus (mirabilis) (morganii) as the cause of diseases classified elsewhere; I12.9 Hypertensive chronic kidney disease with stage 1 through stage 4 chronic kidney disease, or unspecified chronic kidney disease; N18.9 Chronic kidney disease, unspecified; E66.9 Obesity, unspecified; K44.9 Diaphragmatic hernia without obstruction or gangrene; K31.7 Polyp of stomach and duodenum; R97.0 Elevated carcinoembryonic antigen [CEA]; F29 Unspecified psychosis not due to a substance or known physiological condition; F32.9 Major depressive disorder, single episode, unspecified; R41.0 Disorientation, unspecified; E11.43 Type 2 diabetes mellitus with diabetic autonomic (poly)neuropathy; I50.9 Heart failure, unspecified; K29.80 Duodenitis without bleeding; K75.81 Nonalcoholic steatohepatitis (NASH); D63.8 Anemia in other chronic diseases classified elsewhere
CPT/HCPCS: 36415; 36569; 71010; 74177; 76937; 80048; 80053; 80202; 81001; 81003; 82105; 82140; 82248; 82270; 82378; 82550; 82553; 82607; 82746; 82962; 83036; 83540; 83550; 83605; 83615; 83735; 83880; 84100; 84484; 85007; 85025; 85044; 85060; 85610; 85651; 85730; 86850; 86900; 86901; 86904; 86920; 87040; 87086; 87181; 93005; 93306; 94003; 94150; 94664; 94760; 99285; J1815; J2370; J2405

== ENCOUNTER 2017-01-16 09:56 | Inpatient (IN) | payer MEDICARE, MEDICAID ==
[~2017-01-16] VITALS: Ht 165.1 cm; Wt 116.1 kg
--- NOTE | 2017-01-16 08:31 | Emergency Room Report ---
History of Present Illness General Source: Medical Record, EMS Present Illness HPI [id number] BIBEMS from [facility] again for evaluation of AMS. Just admitted 12/24-12 also for EMS, thought d/t sepsis from UTI. patient has multiple co- morbidities listed below. HPI is otherwise limited as patient is altered. Urine Cx showed: E Coli ESBL. She was given Carbapenem and tolerated well despite known PCN allergy per my review of ID Consult. Blood Cx showed "growth of coagulase-negative Staph, most likely contaminant." She had Hb 7.1 and was transfused. PMHx: anemia, encephalopathy, CKD, DM, obesity, cirrhosis, erosive gastritis, DM2, HLD, depression, delerium Allergies: Coded Allergies: PENICILLINS (Unverified Allergy, Unknown, 03/22/15) Uncoded Allergies: PENICILLIN (Allergy, Unknown, 01/16/17) Patient History Past Medical History: other - see HPI Past Surgical History: none Pertinent Family History: none Social History: Denies: smoking, alcohol use, drug use Now: No Immunizations: UTD Reviewed Nursing Documentation: PMH: Agreed, PSxH: Agreed Review of Systems All Other Systems: limited - AMS Physical Exam [id number] EP Interpretation: reviewed General Appearance: normal inspection, well appearing, no apparent distress, alert, non-toxic, lethargic, obese Head: normocephalic, atraumatic Eyes: bilateral eye PERRL, bilateral eye EOMI ENT: normal ENT inspection, hearing grossly normal, normal voice Neck: normal inspection, full range of motion, supple, no bony tend Respiratory: normal inspection, lungs clear, normal breath sounds, no respiratory distress, no retraction, no wheezing Cardiovascular #1: regular rate, rhythm, no edema Gastrointestinal: normal inspection, normal bowel sounds, non tender, soft, no guarding, no hernia Genitourinary: no CVA tenderness Musculoskeletal: normal inspection, back normal, normal range of motion, Daija' s Sign negative Neurologic: normal inspection, alert, responsive, speech normal Psychiatric: normal inspection, judgement/insight normal, mood/affect normal Skin: normal inspection, normal color, no rash Lymphatic: normal inspection Medical Decision Making Medicare Attestation I Primitivo Titus MD hereby attest that the medical record entry for date of service, 01/16/17 accurately reflects signatures/notations that I made in my capacity as MD when I treated/diagnosed the above listed Medicare beneficiary. I attest that this information is true, accurate and complete to the best of my knowledge. I understand that any falsification, omission, or concealment of material fact may subject me to administrative, civil, or criminal liability. This patient warrants hospital admission for extreme of age and has a condition that cannot be treated as outpatient. Diagnostic Impression: Primary Impression: Altered mental status Qualified Codes: R41.82 - Altered mental status, unspecified Additional Impression: Encephalopathy acute ER Course 76YOF with AMS Vitals: Afebrile. No leuks. H&h stable. Ammonia level acutely elevated since previous DC. Was given LA lactulose in ED. CXR: No PNA. UA pending at time of admission Vitals stable, afebrile, no leuks - does not appear septic at this time. Blood Cx were negative on previous admission. Low suspicion for CVA as cause of AMS - likely transient delerium from hepatic encephalopathy Endorsed to Dr Tee for tele bed at 1210pm EKG Diagnostic Results Rate: normal Rhythm: NSR ST Segments: no acute changes ASA given to the pt in ED: No Rhythm Strip Diag. Results EP Interpretation: yes Rate: 71 Rhythm: NSR, no PVC's, no ectopy Chest X-Ray Diagnostic Results Chest X-Ray Diagnostic Results : Chest X-Ray Ordered: Yes # of Views/Limited/Complete: 1 View Indication: Other - AMS EP Interpretation: Yes Interpretation: no pneumothorax, other - Cardiomegaly Electronically Signed by: Dr Primitivo Titus MD Status: improved Disposition: ADMITTED INPATIENT Condition: Serious PRIMITIVO TITUS M.D. Jan 16, 2017 08:31
[~2017-01-16 09:56] MED LIST changes: +FAMOTIDINE40 MG ORAL
[2017-01-16 09:59] VITALS: BP 127/91
[2017-01-16] MEDS ORDERED: CALAMINE LOTIO177 ML TP (10:17)
[2017-01-16] MEDS ORDERED: PROTONIX40 MG ORAL (10:25)
[2017-01-16 11:13] LABS: HEMATOCRIT 28.3 % (37.0-47.0); HEMOGLOBIN 8.4 G/DL (12.0-16.0); MEAN CORPUSCULAR VOLUME 104 FL (80-99); PLATELET COUNT 68 K/UL (150-450); RED BLOOD COUNT 2.73 M/UL (4.20-5.40); RED CELL DISTRIBUTION WIDTH 16.3 % (11.6-14.8); WHITE BLOOD COUNT 6.9 K/UL (4.8-10.8)
[2017-01-16 11:22] LABS: INR 1.3 (0.9-1.1)
[2017-01-16 11:44] LABS: AMMONIA 85 umol/L (11-51)
[2017-01-16] MEDS ORDERED: Lactulose 20gm/30ml UDC ORAL ONE (12:00)
[2017-01-16 12:01] LABS: ALANINE AMINOTRANSFERASE 12 U/L (3-33); ALBUMIN 2.4 g/dL (3.5-5.2); ALBUMIN/GLOBULIN RATIO 0.6 (1.0-2.7); ALKALINE PHOSPHATASE 157 U/L (35-104); ANION GAP 9 (5-15); ASPARTATE AMINO TRANSFERASE 28 U/L (5-40); BILIRUBIN,TOTAL 0.7 mg/dL (0.0-1.2); BLOOD UREA NITROGEN 22 mg/dL (7-23); CALCIUM 9.1 mg/dL (8.6-10.2); CARBON DIOXIDE 21 mEQ/L (20-30); CHLORIDE 119 mEQ/L (98-107); CREATINE KINASE 52 U/L (26-140); CREATININE 1.6 mg/dL (0.5-0.9); POTASSIUM 4.9 mEQ/L (3.4-4.9); SODIUM 149 mEQ/L (135-145)
[2017-01-16 12:06] LABS: APPEARANCE,URINE CLOUDY; BILIRUBIN, URINE NEGATIVE (NEGATIVE); GLUCOSE, URINE (UA) NEGATIVE (NEGATIVE); KETONES,URINE NEGATIVE (NEGATIVE); LEUKOCYTE ESTERASE ,URINE 3+ (NEGATIVE); NITRITE,URINE NEGATIVE (NEGATIVE); PH,URINE 5 (4.5-8.0); PROTEIN,URINE 2+ (NEGATIVE); UROBILINOGEN,URINE NORMAL MG/DL (0.0-1.0)
[2017-01-16 12:07] LABS: COLOR,URINE YELLOW
[2017-01-16 12:12] LABS: CKMB 4.6 ng/mL (< 3.8)
[2017-01-16 12:29] VITALS: BP 117/91
--- NOTE | 2017-01-16 12:39 | Diagnostic Imaging Report ---
Indication: SOB Technique: One view of the chest Comparison: 12/24/2016 Findings: The heart is enlarged. There is bilateral interstitial edema. This is a new finding. There is evidence of prior L1 vertebral limitation procedure again demonstrated Impression: Cardiomegaly with evidence of congestive heart failure
[2017-01-16] MEDS ORDERED: Morphine Sulfate 2mg/ml Inj IVP PRN (12:45)
[2017-01-16] MEDS ORDERED: Albuterol/Ipratropium 3ml neb HHN PRN (12:45)
[2017-01-16] MEDS ORDERED: Miralax 17gm pkt ORAL PRN (12:45)
[2017-01-16 13:00] VITALS: BP 109/70
[2017-01-16] MEDS ORDERED: Nitroglycerin Subl 0.4mg tab SL PRN (13:00)
--- NOTE | 2017-01-16 13:39 | GI Initial Consult Note ---
History of Present Illness General Date patient seen: Jan 16, 2017 Time patient seen: 13:43 Reason for Hospitalization: Altered Level of Consciousness Referring physician: DIONI KUMAR Reason for Consultation: ANEMIA/CIRRHOSIS Present Illness HPI [id number] BIBEMS from [facility] again for evaluation of AMS. Just admitted 12/24- also for EMS, thought d/t sepsis from UTI. patient has multiple co- morbidities listed below. HPI is otherwise limited as patient is altered. Urine Cx showed: E Coli ESBL. She was given Carbapenem and tolerated well despite known PCN allergy per my review of ID Consult. Blood Cx showed "growth of coagulase-negative Staph, most likely contaminant." She had Hb 7.1 and was transfused. PMHx: anemia, encephalopathy, CKD, DM, obesity, cirrhosis, erosive gastritis, DM2, HLD, depression, delirium. GI consult for hepatic encephalopathy. HPI as noted above. ROS limited, AMS. Patient known history of liver cirrhosis as shown previous CT scan presents today with AMS and delirium. The patient is being followed by Dr. Riley as outpatient. Presents today with anemia, liver disease, elevated CEA and hypoalbuminemia. The patient had an EGD and colonoscopy performed on the last admission shown to have erosive gastritis, see full report. Home Meds Reported Medications Pantoprazole* (PROTONIX*) 40 Mg Tablet., 40 MG ORAL DAILY, TAB 01/16/17 Calamine/Zinc Oxide (CALAMINE LOTION*) 177 Ml Suspension, TP PRN Y for Itching, ML 0 Refills 01/16/17 Ertapenem Sodium* (INVanz*) 1 Gm Vial.port, 1 GM IVPB Q24H for 7 Days, VIAL 12/30/16 Famotidine (FAMOTIDINE) 40 Mg Tablet, 40 MG ORAL EVERY 12 HOURS, #60 TAB 0 Refills 12/24/16 Omeprazole (OMEPRAZOLE) 40 Mg Capsule., 40 MG ORAL DAILY, CAP 09/11/16 Metoclopramide Hcl* (REGLAN*) 5 Mg Tablet, 5 MG ORAL Q8HR Y for Nausea & Vomiting, TAB 09/10/16 Insulin Aspart* (NOVOLOG*) 100 Unit/1 Ml Insuln.pen, 0 SUBQ, #1 EA 0 Refills 09/10/16 Multivitamins* (MULTIVITAMINS*) 1 Each Tablet, 1 TAB ORAL DAILY, TAB 0 Refills 09/10/16 Magnesium Chloride (Mag64) 64 Mg Tablet.dr, 64 MG PO DAILY, TAB 09/10/16 Insulin Detemir (LEVEMIR) 100 Unit/1 Ml Vial, 25 UNITS SUBQ BEDTIME, VIAL 09/10/16 Ipratropium/Albuterol Sulfate (DuoNeb 0.5-3(2.5)mg/3ml) 3 Ml Ampul.neb, 3 ML HHN Q4HR Y for Shortness of Breath, EA 09/10/16 Clobetasol Propionate/Emoll (CLOBETASOL EMOLLIENT 0.05% CRM) 15 Gm Cream..g., 15 GM TP Q12HR, GM 09/10/16 Polyethylene Glycol 3350* (MIRALAX*) 17 Gm Powd.pack, 17 GM ORAL DAILY, PACKET 07/01/16 Temazepam (RESTORIL*) 30 Mg Capsule, 15 MG ORAL BEDTIME, #7 CAP 0 Refills 07/01/16 Nitroglycerin (NITROGLYCERIN) 0.4 Mg Tab.subl, 0.4 MG SL EVERY 5 MIN, TAB 07/01/16 Sertraline Hcl* (SERTRALINE HCL*) 25 Mg Tablet, 50 MG ORAL DAILY, TAB 04/11/16 Nateglinide* (STARLIX*) 60 Mg Tablet, 60 MG ORAL BEFORE MEALS, TAB 01/07/16 Cranberry Fruit Concentrate (CRANBERRY) 450 Mg Capsule, 450 MG PO DAILY, CAP 01/07/16 Diphenhydramine Hcl* (BENADRYL*) 25 Mg Capsule, 25 MG ORAL Q4HR Y for Itching, CAP 01/07/16 Ranitidine Hcl* (ZANTAC*) 150 Mg Tablet, 150 MG ORAL DAILY, TAB 10/08/15 Lactulose (LACTULOSE*) 20 Gm/30 Ml Solution, 30 ML ORAL THREE TIMES A DAY, ML 0 Refills 10/08/15 Acetaminophen (Acetaminophen) 650 Mg/20.3 Ml Solution, 650 MG ORAL Q4HR Y for Prn Headache/Temp > 101, ML 0 Refills 10/08/15 Ascorbic Acid* (VITAMIN C*) 500 Mg Tablet, 500 MG ORAL DAILY, #30 TAB 0 Refills 09/26/15 Hydrocodone/Acetaminophen (Hydrocodon-Acetaminophn 10-325) 1 Ea Tab, 1 TAB ORAL Q6H Y for For Pain, #30 TAB 0 Refills 09/26/15 Simethicone* (SIMETHICONE*) 80 Mg Tab.chew, 160 MG ORAL Q8H Y for Abdominal cramps, #20 TAB 0 Refills 08/09/15 Gabapentin* (GABAPENTIN*) 300 Mg Capsule, 300 MG ORAL THREE TIMES A DAY, CAP 0 Refills 08/09/15 Metoprolol Tartrate* (METOPROLOL TARTRATE*) 25 Mg Tablet, 25 MG ORAL EVERY 12 HOURS, TAB 08/09/15 Docusate Sodium* (DOCUSATE SODIUM*) 100 Mg Capsule, 100 MG ORAL BID, CAP 08/09/15 Clopidogrel Bisulfate* (PLAVIX*) 75 Mg Tablet, 75 MG ORAL DAILY, TAB 08/09/15 Losartan Potassium* (LOSARTAN POTASSIUM*) 25 Mg Tablet, 12.5 MG ORAL DAILY, TAB 08/09/15 Atorvastatin Calcium* (ATORVASTATIN CALCIUM*) 20 Mg Tablet, 20 MG ORAL BEDTIME, TAB 08/09/15 Ferrous Sulfate (FERROUS SULFATE) 325 Mg Tablet.dr, 325 MG PO BID 01/30/12 Med list reviewed/reconciled: Yes Allergies: Coded Allergies: PENICILLINS (Unverified Allergy, Unknown, 03/22/15) Uncoded Allergies: PENICILLIN (Allergy, Unknown, 01/16/17) Patient History Limited by: medical condition History Provided By: Medical Record PMH Narrative Past Medical History: other - see HPI Past Surgical History: none Pertinent Family History: none Social History: Denies: smoking, alcohol use, drug use Now: No Immunizations: UTD Reviewed Nursing Documentation: PMH: Agreed, PSxH: Agreed Social History: Denies: smoking, alcohol use, drug use, other Review of Systems All Other Systems: limited Physical Exam Vital Signs Date Time Temp Pulse Resp B/P (MAP) Pulse Ox O2 Delivery O2 Flow Rate FiO2 01/16/17 09:56 97.2 76 26 130/56 96 Nasal Cannula 2.0 Sp02 EP Interpretation: reviewed Labs Laboratory Tests Test 01/16/17 10:55 01/16/17 11:55 01/16/17 12:10 White Blood Count 6.9 K/UL (4.8-10.8) Red Blood Count 2.73 M/UL (4.20-5.40) L Hemoglobin 8.4 G/DL (12.0-16.0) L Hematocrit 28.3 % (37.0-47.0) L Mean Corpuscular Volume 104 FL (80-99) H Mean Corpuscular Hemoglobin 30.6 PG (27.0-31.0) Mean Corpuscular Hemoglobin Concent 29.6 G/DL (32.0-36.0) L Red Cell Distribution Width 16.3 % (11.6-14.8) H Platelet Count 68 K/UL (150-450) L Mean Platelet Volume 8.2 FL (6.5-10.1) Neutrophils (%) (Auto) % (45.0-75.0) Lymphocytes (%) (Auto) % (20.0-45.0) Monocytes (%) (Auto) % (1.0-10.0) Eosinophils (%) (Auto) % (0.0-3.0) Basophils (%) (Auto) % (0.0-2.0) Differential Total Cells Counted 100 Neutrophils % (Manual) 61 % (45-75) Lymphocytes % (Manual) 21 % (20-45) Monocytes % (Manual) 8 % (1-10) Eosinophils % (Manual) 7 % (0-3) H Basophils % (Manual) 3 % (0-2) H Band Neutrophils 0 % (0-8) Nucleated Red Blood Cells 1 /100 WBC Platelet Estimate Decreased L Platelet Morphology Normal Anisocytosis 1+ Tear Drop Cells 1+ Schistocytes 1+ Prothrombin Time 14.1 SEC (9.30-11.50) H Prothromb Time International Ratio 1.3 (0.9-1.1) H Activated Partial Thromboplast Time 37 SEC (23-33) H Sodium Level 149 mEQ/L (135-145) H Potassium Level 4.9 mEQ/L (3.4-4.9) Chloride Level 119 mEQ/L (98-107) H Carbon Dioxide Level 21 mEQ/L (20-30) Anion Gap 9 (5-15) Blood Urea Nitrogen 22 mg/dL (7-23) Creatinine 1.6 mg/dL (0.5-0.9) H Estimat Glomerular Filtration Rate mL/min (>60) Glucose Level 122 mg/dL (74-106) H Lactic Acid Level 0.90 mmol/L (0.66-2.22) Calcium Level 9.1 mg/dL (8.6-10.2) Magnesium Level 2.0 mg/dL (1.7-2.5) Total Bilirubin 0.7 mg/dL (0.0-1.2) Aspartate Amino Transf (AST/SGOT) 28 U/L (5-40) Alanine Aminotransferase (ALT/SGPT) 12 U/L (3-33) Alkaline Phosphatase 157 U/L (35-104) H Ammonia 85 umol/L (11-51) H Total Creatine Kinase 52 U/L (26-140) Creatine Kinase MB 4.6 ng/mL (< 3.8) H Creatine Kinase MB Relative Index 8.8 Troponin I < 0.30 ng/mL (<=0.30) Pro-B-Type Natriuretic Peptide 38804 pg/mL (0-450) H Total Protein 6.3 g/dL (6.6-8.7) L Albumin 2.4 g/dL (3.5-5.2) L Globulin 3.9 g/dL Albumin/Globulin Ratio 0.6 (1.0-2.7) L Urine Color Yellow Urine Appearance Cloudy Urine pH 5 (4.5-8.0) Urine Specific [place] 1.020 (1.005-1.035) Urine Protein 2+ (NEGATIVE) H Urine Glucose (UA) Negative (NEGATIVE) Urine Ketones Negative (NEGATIVE) Urine Occult Blood 4+ (NEGATIVE) H Urine Nitrite Negative (NEGATIVE) Urine Bilirubin Negative (NEGATIVE) Urine Urobilinogen Normal MG/DL (0.0-1.0) Urine Leukocyte Esterase 3+ (NEGATIVE) H Urine RBC 15-20 /HPF (0 - 2) H Urine WBC Tntc /HPF (0 - 2) H Urine Squamous Epithelial Cells Few /LPF (NONE/OCC) Urine Bacteria Many /HPF (NONE) H Urine Yeast Many /HPF (NONE) H Arterial Blood pH 7.220 (7.350-7.450) Arterial Blood Partial Pressure CO2 54.3 mmHg (35.0-45.0) H Arterial Blood Partial Pressure O2 123.1 mmHg (75.0-100.0) H Arterial Blood HCO3 22.1 mmol/L (22.0-26.0) Arterial Blood Oxygen Saturation 97.9 % (92.0-98.0) Arterial Blood Base Excess -5.5 Bon Test Positive General Appearance: no apparent distress, other - confused Head: normocephalic EENT: PERRL/EOMI, normal ENT inspection Neck: supple Respiratory: normal breath sounds, no respiratory distress Cardiovascular: normal rate Gastrointestinal: normal bowel sounds Neurologic: alert Skin: normal inspection, normal color, no rash Lymphatic: normal inspection, no adenopathy Current Medications Current Medications Medications (Trade) Dose Ordered Sig/Pavel Route PRN Reason Start Time Stop Time Status Last Admin Dose Admin Acetaminophen (Tylenol) 650 mg Q4H PRN ORAL T>100.5 01/16/17 12:45 02/15/17 12:44 Albuterol/ Ipratropium (DuoNeb 0.5-3(2.5)mg/3ml) 3 ml Q4H PRN HHN Shortness of Breath 01/16/17 12:45 01/21/17 12:44 Cefepime HCl 1 gm/ Dextrose 55 ml @ 110 mls/hr Q24H IVPB 01/17/17 14:00 01/24/17 13:59 Cefepime HCl 2 gm/ Dextrose 110 ml @ 220 mls/hr ONCE ONCE IV 01/16/17 14:00 01/16/17 14:29 Dextrose (Dextrose 50%) STAT PRN IV Hypoglycemia 01/16/17 12:45 02/15/17 12:44 Gabapentin (Neurontin) 300 mg THREE TIMES A DAY ORAL 01/16/17 13:00 02/15/17 12:59 Insulin Aspart (NovoLOG) BEFORE MEALS AND HS SUBQ 01/16/17 16:30 02/15/17 16:29 Lactulose (Cephulac) 20 gm THREE TIMES A DAY ORAL 01/16/17 13:00 02/15/17 12:59 Morphine Sulfate (Morphine Sulfate) 2 mg Q4H PRN IVP Moderate Pain (Pain Scale 4-6) 01/16/17 12:45 01/23/17 12:44 Nitroglycerin (Ntg) 0.4 mg Q5MIN X 3 DOSES PRN SL Prn Chest Pain 01/16/17 13:00 02/15/17 12:59 Ondansetron HCl (Zofran) 4 mg Q6H PRN IVP Nausea & Vomiting 01/16/17 12:45 02/15/17 12:44 Polyethylene Glycol (Miralax) 17 gm DAILYPRN PRN ORAL Constipation 01/16/17 12:45 02/15/17 12:44 Sertraline HCl (Zoloft) 50 mg DAILY ORAL 01/17/17 09:00 02/16/17 08:59 Temazepam (Restoril) 15 mg HSPRN PRN ORAL Insomnia 01/16/17 21:00 01/23/17 20:59 Vancomycin HCl (Vanco rx to dose) 1 ea DAILY PRN MISC . 01/16/17 13:15 02/15/17 13:14 Vancomycin HCl/ Dextrose 250 ml @ 125 mls/hr ONCE ONCE IVPB 01/16/17 15:00 01/16/17 16:59 GI: Plan Problems: (1) Encephalopathy acute (2) Altered mental status (3) Diabetes mellitus, type II (4) Elevated CEA (5) Elevated liver enzymes (6) GERD (gastroesophageal reflux disease) (7) Cirrhosis (8) Generalized weakness (9) Anemia (10) Dehydration Plan POLST reviewed >> Full Treatment. Trial period of artificial feeding. elevated CEA >> 15.4 s/p EGD/colonoscopy 12/30/16 1. Erosive gastritis with bits of blood in the stomach. 2. A 5 mm gastric polyp, which was biopsied. 3. Duodenitis. 4. A 2 to 3 cm hiatal hernia. 5. No esophageal varices. 6. Normal colonoscopy up to the terminal ileum. anemia work up >> noted erosive gastritis via endoscopy start PPI BID monitor H&H, prn transfusions elevated ammonia levels >> lactulose, add Xifaxan IV/PO hydration + electrolyte replacement resume diet, push PO fu labs Discussed with Dr. Palomo. Thank you for referring this patient. Helena Reece N.P. Jan 16, 2017 13:39
[2017-01-16] MEDS ORDERED: Cefepime HCl 2 GM in D5W 110 ML IV ONE (14:00)
[2017-01-16] MEDS ORDERED: Vancomycin 1.5 GM/D5W 250ML IVPB ONE (15:00)
[2017-01-16] MEDS: Lactulose 20gm/30ml UDC ORAL SCH ×2 (15:40→17:34)
--- NOTE | 2017-01-16 16:52 | History & Physical ---
History and Physical History & Physicial HISTORY AND PHYSICAL Patient: ALLY CHAUHAN [facility] Rec #: [id number] Date of Service: 01/16/17 DATE OF ADMISSION: 01/16/2017 CHIEF COMPLAINT: The patient is a 76-year-old white female who presents with chief complaint of altered mental status. HISTORY OF PRESENT ILLNESS: The patient is a resident of [facility]. According to staff at [facility], the patient has become increasingly confused over past several days. Therefore she was transferred to [facility] for evaluation. She was found to have urinary tract infection. The patient is admitted with altered mental status and urinary tract infection. PAST MEDICAL HISTORY: Significant for: 1. Type 2 diabetes. 2. Hypertension. 3. Obstructive sleep apnea. 4. Gastroesophageal reflux disease. 5. Hypercholesterolemia. 6. History of cardiomyopathy. 7. Liver cirrhosis. 8. Fatty liver. PAST SURGICAL HISTORY: Significant for PEG placement with subsequent removal. CURRENT MEDICATIONS: 1. Tylenol 650 mg one tablet p.o. q.4 h. p.r.n. 2. Vitamin C 500 mg one tablet p.o. daily. 3. Lipitor 20 mg one tablet p.o. nightly. 4. Plavix 75 mg one tablet p.o. daily. 5. Cranberry 450 mg one tablet p.o. daily. 6. Benadryl 25 mg one tablet p.o. q.8 h. p.r.n. 7. Pepcid 40 mg p.o. q.12 h. 8. Iron sulfate 325 mg one tablet p.o. twice daily. 9. Gabapentin 300 mg one tablet p.o. three times daily. 10. [place] 10/325 mg one tablet p.o. q.6 h. p.r.n. 11. NovoLog sliding scale. 12. Levemir of an unknown dose nightly. 13. DuoNeb nebulized q.4 h. p.r.n. 14. Lactulose 30 mL p.o. three times daily. 15. Losartan 12.5 mg one tablet p.o. daily. 16. Metoprolol 25 mg one tablet p.o. twice daily. 17. Starlix 60 mg one tablet p.o. q.a.c. 18. Omeprazole 40 mg one tablet p.o. daily. 19. Zantac 150 mg one tablet p.o. daily. 20. Zoloft 25 mg two tablets p.o. daily. 21. Temazepam 30 mg one tablet p.o. nightly. ALLERGIES: Penicillin. SOCIAL HISTORY: The patient is a resident of [facility]. The patient denies tobacco or alcohol use. REVIEW OF SYSTEMS: Unable to assess, secondary to patient's mental status. PHYSICAL EXAMINATION: VITAL SIGNS: Date Time Temp Pulse Resp B/P (MAP) Pulse Ox O2 Delivery O2 Flow Rate FiO2 01/16/17 13:00 97.2 71 16 117/91 100 Nasal Cannula 2.0 01/16/17 12:29 71 16 117/91 100 Nasal Cannula 2.0 01/16/17 09:59 97.2 72 20 127/91 98 Room Air 01/16/17 09:56 97.2 76 26 130/56 96 Nasal Cannula 2.0 . GENERAL: The patient is a well-developed and well-nourished elderly female who is confused, in no apparent distress. HEENT: Eyes, pupils are equal and responsive to light and accommodation. Extraocular movements are intact. NECK: Supple without lymphadenopathy. CHEST: Lungs are clear to auscultation bilaterally without wheezes or rales. decrease air at bases. CARDIOVASCULAR: Regular rhythm and rate. S1 and S2 are normal without murmurs. ABDOMEN: Soft, nontender, and nondistended. Positive bowel sounds. Morbid obesity. EXTREMITIES: Negative for clubbing, cyanosis, or edema. RECTAL: Refused. GENITAL: Refused. NEUROLOGIC: Cranial nerves II to XII are grossly intact, moving all extremities equally. LABORATORY STUDIES: Test 01/16/17 10:55 01/16/17 11:55 01/16/17 12:10 White Blood Count 6.9 K/UL (4.8-10.8) Red Blood Count 2.73 M/UL (4.20-5.40) Hemoglobin 8.4 G/DL (12.0-16.0) Hematocrit 28.3 % (37.0-47.0) Mean Corpuscular Volume 104 FL (80-99) Mean Corpuscular Hemoglobin 30.6 PG (27.0-31.0) Mean Corpuscular Hemoglobin Concent 29.6 G/DL (32.0-36.0) Red Cell Distribution Width 16.3 % (11.6-14.8) Platelet Count 68 K/UL (150-450) Mean Platelet Volume 8.2 FL (6.5-10.1) Neutrophils (%) (Auto) % (45.0-75.0) Lymphocytes (%) (Auto) % (20.0-45.0) Monocytes (%) (Auto) % (1.0-10.0) Eosinophils (%) (Auto) % (0.0-3.0) Basophils (%) (Auto) % (0.0-2.0) Differential Total Cells Counted 100 Neutrophils % (Manual) 61 % (45-75) Lymphocytes % (Manual) 21 % (20-45) Monocytes % (Manual) 8 % (1-10) Eosinophils % (Manual) 7 % (0-3) Basophils % (Manual) 3 % (0-2) Band Neutrophils 0 % (0-8) Nucleated Red Blood Cells 1 /100 WBC Platelet Estimate Decreased Platelet Morphology Normal Anisocytosis 1+ Tear Drop Cells 1+ Schistocytes 1+ Prothrombin Time 14.1 SEC (9.30-11.50) Prothromb Time International Ratio 1.3 (0.9-1.1) Activated Partial Thromboplast Time 37 SEC (23-33) Sodium Level 149 mEQ/L (135-145) Potassium Level 4.9 mEQ/L (3.4-4.9) Chloride Level 119 mEQ/L (98-107) Carbon Dioxide Level 21 mEQ/L (20-30) Anion Gap 9 (5-15) Blood Urea Nitrogen 22 mg/dL (7-23) Creatinine 1.6 mg/dL (0.5-0.9) Estimat Glomerular Filtration Rate mL/min (>60) Glucose Level 122 mg/dL (74-106) Lactic Acid Level 0.90 mmol/L (0.66-2.22) Calcium Level 9.1 mg/dL (8.6-10.2) Magnesium Level 2.0 mg/dL (1.7-2.5) Total Bilirubin 0.7 mg/dL (0.0-1.2) Aspartate Amino Transf (AST/SGOT) 28 U/L (5-40) Alanine Aminotransferase (ALT/SGPT) 12 U/L (3-33) Alkaline Phosphatase 157 U/L (35-104) Ammonia 85 umol/L (11-51) Total Creatine Kinase 52 U/L (26-140) Creatine Kinase MB 4.6 ng/mL (< 3.8) Creatine Kinase MB Relative Index 8.8 Troponin I < 0.30 ng/mL (<=0.30) Pro-B-Type Natriuretic Peptide 79940 pg/mL (0-450) Total Protein 6.3 g/dL (6.6-8.7) Albumin 2.4 g/dL (3.5-5.2) Globulin 3.9 g/dL Albumin/Globulin Ratio 0.6 (1.0-2.7) Urine Color Yellow Urine Appearance Cloudy Urine pH 5 (4.5-8.0) Urine Specific [place] 1.020 (1.005-1.035) Urine Protein 2+ (NEGATIVE) Urine Glucose (UA) Negative (NEGATIVE) Urine Ketones Negative (NEGATIVE) Urine Occult Blood 4+ (NEGATIVE) Urine Nitrite Negative (NEGATIVE) Urine Bilirubin Negative (NEGATIVE) Urine Urobilinogen Normal MG/DL (0.0-1.0) Urine Leukocyte Esterase 3+ (NEGATIVE) Urine RBC 15-20 /HPF (0 - 2) Urine WBC Tntc /HPF (0 - 2) Urine Squamous Epithelial Cells Few /LPF (NONE/OCC) Urine Bacteria Many /HPF (NONE) Urine Yeast Many /HPF (NONE) Arterial Blood pH 7.220 (7.350-7.450) Arterial Blood Partial Pressure CO2 54.3 mmHg (35.0-45.0) Arterial Blood Partial Pressure O2 123.1 mmHg (75.0-100.0) Arterial Blood HCO3 22.1 mmol/L (22.0-26.0) Arterial Blood Oxygen Saturation 97.9 % (92.0-98.0) Arterial Blood Base Excess -5.5 Bon Test Positive ASSESSMENT: This is a 76-year-old white female. 1. Altered mental status most likely due to hepatic encephalopathy 2. Encephalopathy due to infection / Urinary tract infection. 3. Thrombocytopenia. 4. Anemia. 5. Diabetes type 2. 6. Hypertension. 7. Obstructive sleep apnea. 8. Gastroesophageal reflux disease. 9. Hypercholesterolemia. 10. Cardiomyopathy. 11. Liver cirrhosis. 12. Fatty liver. PLAN: Admit to telemetry Abx: Vanco IV. Cefepime IV Monitor labs and cultures F/U Dr. chilel and Dr. Melendez consults Full code SCD Kvng Casas Payam MD Jan 16, 2017 16:52
[2017-01-16 17:08] VITALS: BP 128/67
[2017-01-16] MEDS: NovoLOG Insulin Flexpen SUBQ SCH ×2 (17:39→20:56)
[2017-01-16 19:00] LABS: APPEARANCE,URINE VERY CLOUDY; BILIRUBIN, URINE NEGATIVE (NEGATIVE); GLUCOSE, URINE (UA) NEGATIVE (NEGATIVE); KETONES,URINE NEGATIVE (NEGATIVE); LEUKOCYTE ESTERASE ,URINE 3+ (NEGATIVE); NITRITE,URINE NEGATIVE (NEGATIVE); PH,URINE 5 (4.5-8.0); PROTEIN,URINE 2+ (NEGATIVE); UROBILINOGEN,URINE NORMAL MG/DL (0.0-1.0)
[2017-01-16 19:01] LABS: COLOR,URINE YELLOW
[2017-01-16 20:00] VITALS: BP 105/61
[2017-01-16] MEDS ORDERED: Heparin 5000 units/ml inj SUBQ SCH (21:00)
[2017-01-17] VITALS: BP 118/55
[2017-01-17] MEDS ORDERED: Vancomycin 1 GM in D5W 275 ML IV SCH (00:30)
[2017-01-17 04:00] VITALS: BP 119/57
[2017-01-17] MEDS: NovoLOG Insulin Flexpen SUBQ SCH ×4 (07:00→22:07)
[2017-01-17 08:00] VITALS: BP 121/72
[2017-01-17] MEDS: Lactulose 20gm/30ml UDC ORAL SCH ×5 (08:31→18:30)
[2017-01-17] MEDS: Sertraline 50mg tab ORAL SCH (08:31)
--- NOTE | 2017-01-17 09:56 | Consultation ---
Consult Note Consult Note ID DIC # [id number] LYLA ROJAS M.D. Jan 17, 2017 09:56
--- NOTE | 2017-01-17 09:56 | Consultation ---
Consult Note Consult Note ID DIC # [id number] LYLA ROJAS M.D. Jan 17, 2017 09:56
--- NOTE | 2017-01-17 09:56 | Consultation ---
Consult Note Consult Note ID DIC # [id number] LYLA ROJAS M.D. Jan 17, 2017 09:56
[2017-01-17 12:00] VITALS: BP 98/50
--- NOTE | 2017-01-17 13:15 | Consultation ---
History of Present Illness General Date patient seen: Jan 16, 2017 Chief Complaint: Altered Level of Consciousness Referring physician: DIONI KUMAR Reason for Consultation: ANEMIA/CIRRHOSIS Present Illness HPI 76 year old female with hx anemia, encephalopathy, CKD, DM, obesity, cirrhosis, erosive gastritis, DM2, [facility] resident brought in for evaluation of AMS. She has hx of E Coli ESBL. She was found to be septic and admitted to telemetry for further evaluation. Pt can't give any history at this time. Allergies: Coded Allergies: PENICILLINS (Unverified Allergy, Unknown, 03/22/15) Uncoded Allergies: PENICILLIN (Allergy, Unknown, 01/16/17) Medication History Scheduled Ascorbic Acid* (Vitamin C*), 500 MG ORAL DAILY, (Reported) Atorvastatin Calcium* (Atorvastatin Calcium*), 20 MG ORAL BEDTIME, (Reported) Clobetasol Propionate/Emoll (Clobetasol Emollient 0.05% Crm), 15 GM TP Q12HR, ( Reported) Clopidogrel Bisulfate* (Plavix*), 75 MG ORAL DAILY, (Reported) Cranberry Fruit Concentrate (Cranberry), 450 MG PO DAILY, (Reported) Docusate Sodium* (Docusate Sodium*), 100 MG ORAL BID, (Reported) Ertapenem Sodium* (INVanz*), 1 GM IVPB Q24H, (Reported) Famotidine (Famotidine), 40 MG ORAL EVERY 12 HOURS, (Reported) Ferrous Sulfate (Ferrous Sulfate), 325 MG PO BID, (Reported) Gabapentin* (Gabapentin*), 300 MG ORAL THREE TIMES A DAY, (Reported) Insulin Detemir (Levemir), 25 UNITS SUBQ BEDTIME, (Reported) Lactulose (Lactulose*), 30 ML ORAL THREE TIMES A DAY, (Reported) Losartan Potassium* (Losartan Potassium*), 12.5 MG ORAL DAILY, (Reported) Magnesium Chloride (Mag64), 64 MG PO DAILY, (Reported) Metoprolol Tartrate* (Metoprolol Tartrate*), 25 MG ORAL EVERY 12 HOURS, ( Reported) Multivitamins* (Multivitamins*), 1 TAB ORAL DAILY, (Reported) Nateglinide* (Starlix*), 60 MG ORAL BEFORE MEALS, (Reported) Nitroglycerin (Nitroglycerin), 0.4 MG SL EVERY 5 MIN, (Reported) Omeprazole (Omeprazole), 40 MG ORAL DAILY, (Reported) Pantoprazole* (Protonix*), 40 MG ORAL DAILY, (Reported) Polyethylene Glycol 3350* (Miralax*), 17 GM ORAL DAILY, (Reported) Ranitidine Hcl* (Zantac*), 150 MG ORAL DAILY, (Reported) Sertraline Hcl* (Sertraline Hcl*), 50 MG ORAL DAILY, (Reported) Temazepam (Restoril*), 15 MG ORAL BEDTIME, (Reported) Scheduled PRN Acetaminophen (Acetaminophen), 650 MG ORAL Q4HR PRN for Prn Headache/Temp > 101, (Reported) Calamine/Zinc Oxide (Calamine Lotion*), Unknown Dose TP PRN PRN for Itching, ( Reported) Diphenhydramine Hcl* (Benadryl*), 25 MG ORAL Q4HR PRN for Itching, (Reported) Hydrocodone/Acetaminophen (Hydrocodon-Acetaminophn 10-325), 1 TAB ORAL Q6H PRN for For Pain, (Reported) Ipratropium/Albuterol Sulfate (DuoNeb 0.5-3(2.5)mg/3ml), 3 ML HHN Q4HR PRN for Shortness of Breath, (Reported) Metoclopramide Hcl* (Reglan*), 5 MG ORAL Q8HR PRN for Nausea & Vomiting, ( Reported) Simethicone* (Simethicone*), 160 MG ORAL Q8H PRN for Abdominal cramps, (Reported ) Miscellaneous Medications Insulin Aspart* (Novolog*), 0 SUBQ, (Reported) Patient History Healthcare decision maker Resuscitation status Full Code Advanced Directive on File No Past Medical/Surgical History Past Medical/Surgical History: (1) DM (diabetes mellitus) (2) HTN (hypertension) (3) Elevated CEA (4) Cirrhosis (5) ESBL (extended spectrum beta-lactamase) producing bacteria infection (6) Cardiomegaly Review of Systems All Other Systems: negative except mentioned in HPI Physical Exam General Appearance: WD/WN, no apparent distress Lines, tubes and drains: peripheral HEENT: normocephalic, atraumatic Neck: non-tender, normal alignment Respiratory/Chest: chest wall non-tender, lungs clear Breasts: no masses Cardiovascular/Chest: normal peripheral pulses Abdomen: normal bowel sounds, non tender Genitourinary/Rectal: normal genital exam, normal rectal exam, normal prostate exam Extremities: normal range of motion, non-tender Last 24 Hour Vital Signs Date Time Temp Pulse Resp B/P (MAP) Pulse Ox O2 Delivery O2 Flow Rate FiO2 01/17/17 12:00 60 01/17/17 12:00 96.5 62 20 98/50 97 Nasal Cannula 2.0 01/17/17 08:00 96.5 72 20 121/72 98 Nasal Cannula 2.0 01/17/17 08:00 69 01/17/17 04:00 67 01/17/17 04:00 97.0 67 23 119/57 100 Nasal Cannula 2.0 01/17/17 00:00 63 01/17/17 00:00 97.0 57 24 118/55 100 Nasal Cannula 2.0 01/16/17 20:00 66 01/16/17 20:00 97.0 67 16 105/61 99 Nasal Cannula 2.0 01/16/17 17:08 98.0 66 24 128/67 97 Nasal Cannula 2.0 01/16/17 16:00 68 Intake and Output 01/17/17 01/18/17 19:00 07:00 Intake Total 480 ml Balance 480 ml Intake Oral 480 ml # Bowel Movements 2 Laboratory Tests Test 01/16/17 18:31 Urine Color Yellow Urine Appearance Very cloudy Urine pH 5 (4.5-8.0) Urine Specific [place] 1.020 (1.005-1.035) Urine Protein 2+ (NEGATIVE) H Urine Glucose (UA) Negative (NEGATIVE) Urine Ketones Negative (NEGATIVE) Urine Occult Blood 5+ (NEGATIVE) H Urine Nitrite Negative (NEGATIVE) Urine Bilirubin Negative (NEGATIVE) Urine Urobilinogen Normal MG/DL (0.0-1.0) Urine Leukocyte Esterase 3+ (NEGATIVE) H Urine RBC 2-4 /HPF (0 - 2) H Urine WBC Tntc /HPF (0 - 2) H Urine Squamous Epithelial Cells Moderate /LPF (NONE/OCC) H Urine Bacteria Moderate /HPF (NONE) H Urine Yeast Many /HPF (NONE) H Height (Feet): 5 Height (Inches): 6.00 Weight (Pounds): 250 Medications Current Medications Medications (Trade) Dose Ordered Sig/Pavel Route PRN Reason Start Time Stop Time Status Last Admin Dose Admin Acetaminophen (Tylenol) 650 mg Q4H PRN ORAL T>100.5 01/16/17 12:45 02/15/17 12:44 Albuterol/ Ipratropium (DuoNeb 0.5-3(2.5)mg/3ml) 3 ml Q4H PRN HHN Shortness of Breath 01/16/17 12:45 01/21/17 12:44 Cefepime HCl 1 gm/ Dextrose 55 ml @ 110 mls/hr Q24H IVPB 01/17/17 14:00 01/24/17 13:59 Dextrose (Dextrose 50%) STAT PRN IV Hypoglycemia 01/16/17 12:45 02/15/17 12:44 Gabapentin (Neurontin) 300 mg THREE TIMES A DAY ORAL 01/16/17 13:00 02/15/17 12:59 01/17/17 13:09 Insulin Aspart (NovoLOG) BEFORE MEALS AND HS SUBQ 01/16/17 16:30 02/15/17 16:29 01/17/17 11:46 Lactulose (Cephulac) 20 gm THREE TIMES A DAY ORAL 01/16/17 13:00 02/15/17 12:59 01/17/17 13:09 Morphine Sulfate (Morphine Sulfate) 2 mg Q4H PRN IVP Moderate Pain (Pain Scale 4-6) 01/16/17 12:45 01/23/17 12:44 Nitroglycerin (Ntg) 0.4 mg Q5MIN X 3 DOSES PRN SL Prn Chest Pain 01/16/17 13:00 02/15/17 12:59 Ondansetron HCl (Zofran) 4 mg Q6H PRN IVP Nausea & Vomiting 01/16/17 12:45 02/15/17 12:44 Pantoprazole (Protonix) 40 mg EVERY 12 HOURS ORAL 01/16/17 21:00 02/15/17 20:59 01/17/17 08:31 Polyethylene Glycol (Miralax) 17 gm DAILYPRN PRN ORAL Constipation 01/16/17 12:45 02/15/17 12:44 Rifaximin (Xifaxan) 550 mg EVERY 12 HOURS ORAL 01/16/17 21:00 01/23/17 20:59 01/17/17 08:31 Sertraline HCl (Zoloft) 50 mg DAILY ORAL 01/17/17 09:00 02/16/17 08:59 01/17/17 08:31 Temazepam (Restoril) 15 mg HSPRN PRN ORAL Insomnia 01/16/17 21:00 01/23/17 20:59 Vancomycin HCl (Vanco rx to dose) 1 ea DAILY PRN MISC . 01/16/17 13:15 02/15/17 13:14 Assessment/Plan Problem List: (1) Altered level of consciousness ICD Codes: R40.4 - Transient alteration of awareness SNOMED: 7910662 (2) ESBL (extended spectrum beta-lactamase) producing bacteria infection ICD Codes: A49.9 - Bacterial infection, unspecified; Z16.12 - Extended spectrum beta lactamase (ESBL) resistance SNOMED: 591265549 (3) Cirrhosis ICD Codes: K74.60 - Unspecified cirrhosis of liver SNOMED: 71368731 (4) Cardiomegaly ICD Codes: I51.7 - Cardiomegaly SNOMED: 8531022 (5) DM (diabetes mellitus) ICD Codes: E11.9 - Type 2 diabetes mellitus without complications SNOMED: 40993911 (6) HTN (hypertension) ICD Codes: I10 - Essential (primary) hypertension SNOMED: 57587083 Assessment/Plan davis cultures IV fluids broad spectrum abx check ammonia lactulose dvt prophylaxis. DIONI TRIANA Jan 17, 2017 13:15
--- NOTE | 2017-01-17 13:15 | Consultation ---
History of Present Illness General Date patient seen: Jan 16, 2017 Chief Complaint: Altered Level of Consciousness Referring physician: DIONI KUMAR Reason for Consultation: ANEMIA/CIRRHOSIS Present Illness HPI 76 year old female with hx anemia, encephalopathy, CKD, DM, obesity, cirrhosis, erosive gastritis, DM2, [facility] brought in for evaluation of AMS. She has hx of E Coli ESBL. She was found to be septic and admitted to telemetry for further evaluation. Pt can't give any history at this time. Allergies: Coded Allergies: PENICILLINS (Unverified Allergy, Unknown, 03/22/15) Uncoded Allergies: PENICILLIN (Allergy, Unknown, 01/16/17) Medication History Scheduled Ascorbic Acid* (Vitamin C*), 500 MG ORAL DAILY, (Reported) Atorvastatin Calcium* (Atorvastatin Calcium*), 20 MG ORAL BEDTIME, (Reported) Clobetasol Propionate/Emoll (Clobetasol Emollient 0.05% Crm), 15 GM TP Q12HR, ( Reported) Clopidogrel Bisulfate* (Plavix*), 75 MG ORAL DAILY, (Reported) Cranberry Fruit Concentrate (Cranberry), 450 MG PO DAILY, (Reported) Docusate Sodium* (Docusate Sodium*), 100 MG ORAL BID, (Reported) Ertapenem Sodium* (INVanz*), 1 GM IVPB Q24H, (Reported) Famotidine (Famotidine), 40 MG ORAL EVERY 12 HOURS, (Reported) Ferrous Sulfate (Ferrous Sulfate), 325 MG PO BID, (Reported) Gabapentin* (Gabapentin*), 300 MG ORAL THREE TIMES A DAY, (Reported) Insulin Detemir (Levemir), 25 UNITS SUBQ BEDTIME, (Reported) Lactulose (Lactulose*), 30 ML ORAL THREE TIMES A DAY, (Reported) Losartan Potassium* (Losartan Potassium*), 12.5 MG ORAL DAILY, (Reported) Magnesium Chloride (Mag64), 64 MG PO DAILY, (Reported) Metoprolol Tartrate* (Metoprolol Tartrate*), 25 MG ORAL EVERY 12 HOURS, ( Reported) Multivitamins* (Multivitamins*), 1 TAB ORAL DAILY, (Reported) Nateglinide* (Starlix*), 60 MG ORAL BEFORE MEALS, (Reported) Nitroglycerin (Nitroglycerin), 0.4 MG SL EVERY 5 MIN, (Reported) Omeprazole (Omeprazole), 40 MG ORAL DAILY, (Reported) Pantoprazole* (Protonix*), 40 MG ORAL DAILY, (Reported) Polyethylene Glycol 3350* (Miralax*), 17 GM ORAL DAILY, (Reported) Ranitidine Hcl* (Zantac*), 150 MG ORAL DAILY, (Reported) Sertraline Hcl* (Sertraline Hcl*), 50 MG ORAL DAILY, (Reported) Temazepam (Restoril*), 15 MG ORAL BEDTIME, (Reported) Scheduled PRN Acetaminophen (Acetaminophen), 650 MG ORAL Q4HR PRN for Prn Headache/Temp > 101, (Reported) Calamine/Zinc Oxide (Calamine Lotion*), Unknown Dose TP PRN PRN for Itching, ( Reported) Diphenhydramine Hcl* (Benadryl*), 25 MG ORAL Q4HR PRN for Itching, (Reported) Hydrocodone/Acetaminophen (Hydrocodon-Acetaminophn 10-325), 1 TAB ORAL Q6H PRN for For Pain, (Reported) Ipratropium/Albuterol Sulfate (DuoNeb 0.5-3(2.5)mg/3ml), 3 ML HHN Q4HR PRN for Shortness of Breath, (Reported) Metoclopramide Hcl* (Reglan*), 5 MG ORAL Q8HR PRN for Nausea & Vomiting, ( Reported) Simethicone* (Simethicone*), 160 MG ORAL Q8H PRN for Abdominal cramps, (Reported ) Miscellaneous Medications Insulin Aspart* (Novolog*), 0 SUBQ, (Reported) Patient History Healthcare decision maker Resuscitation status Full Code Advanced Directive on File No Past Medical/Surgical History Past Medical/Surgical History: (1) DM (diabetes mellitus) (2) HTN (hypertension) (3) Elevated CEA (4) Cirrhosis (5) ESBL (extended spectrum beta-lactamase) producing bacteria infection (6) Cardiomegaly Review of Systems All Other Systems: negative except mentioned in HPI Physical Exam General Appearance: WD/WN, no apparent distress Lines, tubes and drains: peripheral HEENT: normocephalic, atraumatic Neck: non-tender, normal alignment Respiratory/Chest: chest wall non-tender, lungs clear Breasts: no masses Cardiovascular/Chest: normal peripheral pulses Abdomen: normal bowel sounds, non tender Genitourinary/Rectal: normal genital exam, normal rectal exam, normal prostate exam Extremities: normal range of motion, non-tender Last 24 Hour Vital Signs Date Time Temp Pulse Resp B/P (MAP) Pulse Ox O2 Delivery O2 Flow Rate FiO2 01/17/17 12:00 60 01/17/17 12:00 96.5 62 20 98/50 97 Nasal Cannula 2.0 01/17/17 08:00 96.5 72 20 121/72 98 Nasal Cannula 2.0 01/17/17 08:00 69 01/17/17 04:00 67 01/17/17 04:00 97.0 67 23 119/57 100 Nasal Cannula 2.0 01/17/17 00:00 63 01/17/17 00:00 97.0 57 24 118/55 100 Nasal Cannula 2.0 01/16/17 20:00 66 01/16/17 20:00 97.0 67 16 105/61 99 Nasal Cannula 2.0 01/16/17 17:08 98.0 66 24 128/67 97 Nasal Cannula 2.0 01/16/17 16:00 68 Intake and Output 01/17/17 01/18/17 19:00 07:00 Intake Total 480 ml Balance 480 ml Intake Oral 480 ml # Bowel Movements 2 Laboratory Tests Test 01/16/17 18:31 Urine Color Yellow Urine Appearance Very cloudy Urine pH 5 (4.5-8.0) Urine Specific [place] 1.020 (1.005-1.035) Urine Protein 2+ (NEGATIVE) H Urine Glucose (UA) Negative (NEGATIVE) Urine Ketones Negative (NEGATIVE) Urine Occult Blood 5+ (NEGATIVE) H Urine Nitrite Negative (NEGATIVE) Urine Bilirubin Negative (NEGATIVE) Urine Urobilinogen Normal MG/DL (0.0-1.0) Urine Leukocyte Esterase 3+ (NEGATIVE) H Urine RBC 2-4 /HPF (0 - 2) H Urine WBC Tntc /HPF (0 - 2) H Urine Squamous Epithelial Cells Moderate /LPF (NONE/OCC) H Urine Bacteria Moderate /HPF (NONE) H Urine Yeast Many /HPF (NONE) H Height (Feet): 5 Height (Inches): 6.00 Weight (Pounds): 250 Medications Current Medications Medications (Trade) Dose Ordered Sig/Pavel Route PRN Reason Start Time Stop Time Status Last Admin Dose Admin Acetaminophen (Tylenol) 650 mg Q4H PRN ORAL T>100.5 01/16/17 12:45 02/15/17 12:44 Albuterol/ Ipratropium (DuoNeb 0.5-3(2.5)mg/3ml) 3 ml Q4H PRN HHN Shortness of Breath 01/16/17 12:45 01/21/17 12:44 Cefepime HCl 1 gm/ Dextrose 55 ml @ 110 mls/hr Q24H IVPB 01/17/17 14:00 01/24/17 13:59 Dextrose (Dextrose 50%) STAT PRN IV Hypoglycemia 01/16/17 12:45 02/15/17 12:44 Gabapentin (Neurontin) 300 mg THREE TIMES A DAY ORAL 01/16/17 13:00 02/15/17 12:59 01/17/17 13:09 Insulin Aspart (NovoLOG) BEFORE MEALS AND HS SUBQ 01/16/17 16:30 02/15/17 16:29 01/17/17 11:46 Lactulose (Cephulac) 20 gm THREE TIMES A DAY ORAL 01/16/17 13:00 02/15/17 12:59 01/17/17 13:09 Morphine Sulfate (Morphine Sulfate) 2 mg Q4H PRN IVP Moderate Pain (Pain Scale 4-6) 01/16/17 12:45 01/23/17 12:44 Nitroglycerin (Ntg) 0.4 mg Q5MIN X 3 DOSES PRN SL Prn Chest Pain 01/16/17 13:00 02/15/17 12:59 Ondansetron HCl (Zofran) 4 mg Q6H PRN IVP Nausea & Vomiting 01/16/17 12:45 02/15/17 12:44 Pantoprazole (Protonix) 40 mg EVERY 12 HOURS ORAL 01/16/17 21:00 02/15/17 20:59 01/17/17 08:31 Polyethylene Glycol (Miralax) 17 gm DAILYPRN PRN ORAL Constipation 01/16/17 12:45 02/15/17 12:44 Rifaximin (Xifaxan) 550 mg EVERY 12 HOURS ORAL 01/16/17 21:00 01/23/17 20:59 01/17/17 08:31 Sertraline HCl (Zoloft) 50 mg DAILY ORAL 01/17/17 09:00 02/16/17 08:59 01/17/17 08:31 Temazepam (Restoril) 15 mg HSPRN PRN ORAL Insomnia 01/16/17 21:00 01/23/17 20:59 Vancomycin HCl (Vanco rx to dose) 1 ea DAILY PRN MISC . 01/16/17 13:15 02/15/17 13:14 Assessment/Plan Problem List: (1) Altered level of consciousness ICD Codes: R40.4 - Transient alteration of awareness SNOMED: 9167524 (2) ESBL (extended spectrum beta-lactamase) producing bacteria infection ICD Codes: A49.9 - Bacterial infection, unspecified; Z16.12 - Extended spectrum beta lactamase (ESBL) resistance SNOMED: 672379299 (3) Cirrhosis ICD Codes: K74.60 - Unspecified cirrhosis of liver SNOMED: 35144820 (4) Cardiomegaly ICD Codes: I51.7 - Cardiomegaly SNOMED: 5153845 (5) DM (diabetes mellitus) ICD Codes: E11.9 - Type 2 diabetes mellitus without complications SNOMED: 19241968 (6) HTN (hypertension) ICD Codes: I10 - Essential (primary) hypertension SNOMED: 71473787 Assessment/Plan davis cultures IV fluids broad spectrum abx check ammonia lactulose dvt prophylaxis. DIONI TRIANA Jan 17, 2017 13:15
--- NOTE | 2017-01-17 13:15 | Consultation ---
History of Present Illness General Date patient seen: Jan 16, 2017 Chief Complaint: Altered Level of Consciousness Referring physician: DIONI KUMAR Reason for Consultation: ANEMIA/CIRRHOSIS Present Illness HPI 76 year old female with hx anemia, encephalopathy, CKD, DM, obesity, cirrhosis, erosive gastritis, DM2, [facility] resident brought in for evaluation of AMS. She has hx of E Coli ESBL. She was found to be septic and admitted to telemetry for further evaluation. Pt can't give any history at this time. Allergies: Coded Allergies: PENICILLINS (Unverified Allergy, Unknown, 03/22/15) Uncoded Allergies: PENICILLIN (Allergy, Unknown, 01/16/17) Medication History Scheduled Ascorbic Acid* (Vitamin C*), 500 MG ORAL DAILY, (Reported) Atorvastatin Calcium* (Atorvastatin Calcium*), 20 MG ORAL BEDTIME, (Reported) Clobetasol Propionate/Emoll (Clobetasol Emollient 0.05% Crm), 15 GM TP Q12HR, ( Reported) Clopidogrel Bisulfate* (Plavix*), 75 MG ORAL DAILY, (Reported) Cranberry Fruit Concentrate (Cranberry), 450 MG PO DAILY, (Reported) Docusate Sodium* (Docusate Sodium*), 100 MG ORAL BID, (Reported) Ertapenem Sodium* (INVanz*), 1 GM IVPB Q24H, (Reported) Famotidine (Famotidine), 40 MG ORAL EVERY 12 HOURS, (Reported) Ferrous Sulfate (Ferrous Sulfate), 325 MG PO BID, (Reported) Gabapentin* (Gabapentin*), 300 MG ORAL THREE TIMES A DAY, (Reported) Insulin Detemir (Levemir), 25 UNITS SUBQ BEDTIME, (Reported) Lactulose (Lactulose*), 30 ML ORAL THREE TIMES A DAY, (Reported) Losartan Potassium* (Losartan Potassium*), 12.5 MG ORAL DAILY, (Reported) Magnesium Chloride (Mag64), 64 MG PO DAILY, (Reported) Metoprolol Tartrate* (Metoprolol Tartrate*), 25 MG ORAL EVERY 12 HOURS, ( Reported) Multivitamins* (Multivitamins*), 1 TAB ORAL DAILY, (Reported) Nateglinide* (Starlix*), 60 MG ORAL BEFORE MEALS, (Reported) Nitroglycerin (Nitroglycerin), 0.4 MG SL EVERY 5 MIN, (Reported) Omeprazole (Omeprazole), 40 MG ORAL DAILY, (Reported) Pantoprazole* (Protonix*), 40 MG ORAL DAILY, (Reported) Polyethylene Glycol 3350* (Miralax*), 17 GM ORAL DAILY, (Reported) Ranitidine Hcl* (Zantac*), 150 MG ORAL DAILY, (Reported) Sertraline Hcl* (Sertraline Hcl*), 50 MG ORAL DAILY, (Reported) Temazepam (Restoril*), 15 MG ORAL BEDTIME, (Reported) Scheduled PRN Acetaminophen (Acetaminophen), 650 MG ORAL Q4HR PRN for Prn Headache/Temp > 101, (Reported) Calamine/Zinc Oxide (Calamine Lotion*), Unknown Dose TP PRN PRN for Itching, ( Reported) Diphenhydramine Hcl* (Benadryl*), 25 MG ORAL Q4HR PRN for Itching, (Reported) Hydrocodone/Acetaminophen (Hydrocodon-Acetaminophn 10-325), 1 TAB ORAL Q6H PRN for For Pain, (Reported) Ipratropium/Albuterol Sulfate (DuoNeb 0.5-3(2.5)mg/3ml), 3 ML HHN Q4HR PRN for Shortness of Breath, (Reported) Metoclopramide Hcl* (Reglan*), 5 MG ORAL Q8HR PRN for Nausea & Vomiting, ( Reported) Simethicone* (Simethicone*), 160 MG ORAL Q8H PRN for Abdominal cramps, (Reported ) Miscellaneous Medications Insulin Aspart* (Novolog*), 0 SUBQ, (Reported) Patient History Healthcare decision maker Resuscitation status Full Code Advanced Directive on File No Past Medical/Surgical History Past Medical/Surgical History: (1) DM (diabetes mellitus) (2) HTN (hypertension) (3) Elevated CEA (4) Cirrhosis (5) ESBL (extended spectrum beta-lactamase) producing bacteria infection (6) Cardiomegaly Review of Systems All Other Systems: negative except mentioned in HPI Physical Exam General Appearance: WD/WN, no apparent distress Lines, tubes and drains: peripheral HEENT: normocephalic, atraumatic Neck: non-tender, normal alignment Respiratory/Chest: chest wall non-tender, lungs clear Breasts: no masses Cardiovascular/Chest: normal peripheral pulses Abdomen: normal bowel sounds, non tender Genitourinary/Rectal: normal genital exam, normal rectal exam, normal prostate exam Extremities: normal range of motion, non-tender Last 24 Hour Vital Signs Date Time Temp Pulse Resp B/P (MAP) Pulse Ox O2 Delivery O2 Flow Rate FiO2 01/17/17 12:00 60 01/17/17 12:00 96.5 62 20 98/50 97 Nasal Cannula 2.0 01/17/17 08:00 96.5 72 20 121/72 98 Nasal Cannula 2.0 01/17/17 08:00 69 01/17/17 04:00 67 01/17/17 04:00 97.0 67 23 119/57 100 Nasal Cannula 2.0 01/17/17 00:00 63 01/17/17 00:00 97.0 57 24 118/55 100 Nasal Cannula 2.0 01/16/17 20:00 66 01/16/17 20:00 97.0 67 16 105/61 99 Nasal Cannula 2.0 01/16/17 17:08 98.0 66 24 128/67 97 Nasal Cannula 2.0 01/16/17 16:00 68 Intake and Output 01/17/17 01/18/17 19:00 07:00 Intake Total 480 ml Balance 480 ml Intake Oral 480 ml # Bowel Movements 2 Laboratory Tests Test 01/16/17 18:31 Urine Color Yellow Urine Appearance Very cloudy Urine pH 5 (4.5-8.0) Urine Specific [place] 1.020 (1.005-1.035) Urine Protein 2+ (NEGATIVE) H Urine Glucose (UA) Negative (NEGATIVE) Urine Ketones Negative (NEGATIVE) Urine Occult Blood 5+ (NEGATIVE) H Urine Nitrite Negative (NEGATIVE) Urine Bilirubin Negative (NEGATIVE) Urine Urobilinogen Normal MG/DL (0.0-1.0) Urine Leukocyte Esterase 3+ (NEGATIVE) H Urine RBC 2-4 /HPF (0 - 2) H Urine WBC Tntc /HPF (0 - 2) H Urine Squamous Epithelial Cells Moderate /LPF (NONE/OCC) H Urine Bacteria Moderate /HPF (NONE) H Urine Yeast Many /HPF (NONE) H Height (Feet): 5 Height (Inches): 6.00 Weight (Pounds): 250 Medications Current Medications Medications (Trade) Dose Ordered Sig/Pavel Route PRN Reason Start Time Stop Time Status Last Admin Dose Admin Acetaminophen (Tylenol) 650 mg Q4H PRN ORAL T>100.5 01/16/17 12:45 02/15/17 12:44 Albuterol/ Ipratropium (DuoNeb 0.5-3(2.5)mg/3ml) 3 ml Q4H PRN HHN Shortness of Breath 01/16/17 12:45 01/21/17 12:44 Cefepime HCl 1 gm/ Dextrose 55 ml @ 110 mls/hr Q24H IVPB 01/17/17 14:00 01/24/17 13:59 Dextrose (Dextrose 50%) STAT PRN IV Hypoglycemia 01/16/17 12:45 02/15/17 12:44 Gabapentin (Neurontin) 300 mg THREE TIMES A DAY ORAL 01/16/17 13:00 02/15/17 12:59 01/17/17 13:09 Insulin Aspart (NovoLOG) BEFORE MEALS AND HS SUBQ 01/16/17 16:30 02/15/17 16:29 01/17/17 11:46 Lactulose (Cephulac) 20 gm THREE TIMES A DAY ORAL 01/16/17 13:00 02/15/17 12:59 01/17/17 13:09 Morphine Sulfate (Morphine Sulfate) 2 mg Q4H PRN IVP Moderate Pain (Pain Scale 4-6) 01/16/17 12:45 01/23/17 12:44 Nitroglycerin (Ntg) 0.4 mg Q5MIN X 3 DOSES PRN SL Prn Chest Pain 01/16/17 13:00 02/15/17 12:59 Ondansetron HCl (Zofran) 4 mg Q6H PRN IVP Nausea & Vomiting 01/16/17 12:45 02/15/17 12:44 Pantoprazole (Protonix) 40 mg EVERY 12 HOURS ORAL 01/16/17 21:00 02/15/17 20:59 01/17/17 08:31 Polyethylene Glycol (Miralax) 17 gm DAILYPRN PRN ORAL Constipation 01/16/17 12:45 02/15/17 12:44 Rifaximin (Xifaxan) 550 mg EVERY 12 HOURS ORAL 01/16/17 21:00 01/23/17 20:59 01/17/17 08:31 Sertraline HCl (Zoloft) 50 mg DAILY ORAL 01/17/17 09:00 02/16/17 08:59 01/17/17 08:31 Temazepam (Restoril) 15 mg HSPRN PRN ORAL Insomnia 01/16/17 21:00 01/23/17 20:59 Vancomycin HCl (Vanco rx to dose) 1 ea DAILY PRN MISC . 01/16/17 13:15 02/15/17 13:14 Assessment/Plan Problem List: (1) Altered level of consciousness ICD Codes: R40.4 - Transient alteration of awareness SNOMED: 3403769 (2) ESBL (extended spectrum beta-lactamase) producing bacteria infection ICD Codes: A49.9 - Bacterial infection, unspecified; Z16.12 - Extended spectrum beta lactamase (ESBL) resistance SNOMED: 932372179 (3) Cirrhosis ICD Codes: K74.60 - Unspecified cirrhosis of liver SNOMED: 69546634 (4) Cardiomegaly ICD Codes: I51.7 - Cardiomegaly SNOMED: 3865177 (5) DM (diabetes mellitus) ICD Codes: E11.9 - Type 2 diabetes mellitus without complications SNOMED: 42842393 (6) HTN (hypertension) ICD Codes: I10 - Essential (primary) hypertension SNOMED: 79895996 Assessment/Plan davis cultures IV fluids broad spectrum abx check ammonia lactulose dvt prophylaxis. DIONI TRIANA Jan 17, 2017 13:15
--- NOTE | 2017-01-17 13:15 | Pulmonology Progress Note ---
Assessment/Plan Problems: (1) Altered level of consciousness (2) ESBL (extended spectrum beta-lactamase) producing bacteria infection (3) Cardiomegaly (4) DM (diabetes mellitus) (5) HTN (hypertension) (6) UTI (urinary tract infection) Assessment/Plan check ammonia level ( refusing blood) lactulose check cultures check sensitivity eating 25% of her food Subjective Interval Events: somnolent at times Allergies: Coded Allergies: PENICILLINS (Unverified Allergy, Unknown, 03/22/15) Uncoded Allergies: PENICILLIN (Allergy, Unknown, 01/16/17) Objective Last 24 Hour Vital Signs Date Time Temp Pulse Resp B/P (MAP) Pulse Ox O2 Delivery O2 Flow Rate FiO2 01/17/17 12:00 60 01/17/17 12:00 96.5 62 20 98/50 97 Nasal Cannula 2.0 01/17/17 08:00 96.5 72 20 121/72 98 Nasal Cannula 2.0 01/17/17 08:00 69 01/17/17 04:00 67 01/17/17 04:00 97.0 67 23 119/57 100 Nasal Cannula 2.0 01/17/17 00:00 63 01/17/17 00:00 97.0 57 24 118/55 100 Nasal Cannula 2.0 01/16/17 20:00 66 01/16/17 20:00 97.0 67 16 105/61 99 Nasal Cannula 2.0 01/16/17 17:08 98.0 66 24 128/67 97 Nasal Cannula 2.0 01/16/17 16:00 68 Intake and Output 01/17/17 01/18/17 19:00 07:00 Intake Total 480 ml Balance 480 ml Intake Oral 480 ml # Bowel Movements 2 General Appearance: WD/WN HEENT: normocephalic Breasts: no masses Cardiovascular: normal peripheral pulses Abdomen: normal bowel sounds, no organomegaly Genitourinary: normal external genitalia 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 Microbiology Date/Time Source Procedure Growth Status 01/16/17 12:25 Nasal Nares Influenza Types A,B Antigen (JOSE A) - Final Complete 01/16/17 11:55 Urine,Clean Catch Urine Culture - Preliminary Gram Negative Zaid Resulted Laboratory Tests 01/16/17 18:31: Urine Color Yellow, Urine Appearance Very cloudy, Urine pH 5, Urine Specific [place] 1.020, Urine Protein 2+H, Urine Glucose (UA) Negative, Urine Ketones Negative, Urine Occult Blood 5+H, Urine Nitrite Negative, Urine Bilirubin Negative, Urine Urobilinogen Normal, Urine Leukocyte Esterase 3+H, Urine RBC 2- 4H, Urine WBC TntcH, Urine Squamous Epithelial Cells ModerateH, Urine Bacteria ModerateH, Urine Yeast ManyH Current Medications Medications (Trade) Dose Ordered Sig/Pavel Route PRN Reason Start Time Stop Time Status Last Admin Dose Admin Acetaminophen (Tylenol) 650 mg Q4H PRN ORAL T>100.5 01/16/17 12:45 02/15/17 12:44 Albuterol/ Ipratropium (DuoNeb 0.5-3(2.5)mg/3ml) 3 ml Q4H PRN HHN Shortness of Breath 01/16/17 12:45 01/21/17 12:44 Cefepime HCl 1 gm/ Dextrose 55 ml @ 110 mls/hr Q24H IVPB 01/17/17 14:00 01/24/17 13:59 Dextrose (Dextrose 50%) STAT PRN IV Hypoglycemia 01/16/17 12:45 02/15/17 12:44 Gabapentin (Neurontin) 300 mg THREE TIMES A DAY ORAL 01/16/17 13:00 02/15/17 12:59 01/17/17 13:09 Insulin Aspart (NovoLOG) BEFORE MEALS AND HS SUBQ 01/16/17 16:30 02/15/17 16:29 01/17/17 11:46 Lactulose (Cephulac) 20 gm THREE TIMES A DAY ORAL 01/16/17 13:00 02/15/17 12:59 01/17/17 13:09 Morphine Sulfate (Morphine Sulfate) 2 mg Q4H PRN IVP Moderate Pain (Pain Scale 4-6) 01/16/17 12:45 01/23/17 12:44 Nitroglycerin (Ntg) 0.4 mg Q5MIN X 3 DOSES PRN SL Prn Chest Pain 01/16/17 13:00 02/15/17 12:59 Ondansetron HCl (Zofran) 4 mg Q6H PRN IVP Nausea & Vomiting 01/16/17 12:45 02/15/17 12:44 Pantoprazole (Protonix) 40 mg EVERY 12 HOURS ORAL 01/16/17 21:00 02/15/17 20:59 01/17/17 08:31 Polyethylene Glycol (Miralax) 17 gm DAILYPRN PRN ORAL Constipation 01/16/17 12:45 02/15/17 12:44 Rifaximin (Xifaxan) 550 mg EVERY 12 HOURS ORAL 01/16/17 21:00 01/23/17 20:59 01/17/17 08:31 Sertraline HCl (Zoloft) 50 mg DAILY ORAL 01/17/17 09:00 02/16/17 08:59 01/17/17 08:31 Temazepam (Restoril) 15 mg HSPRN PRN ORAL Insomnia 01/16/17 21:00 01/23/17 20:59 Vancomycin HCl (Vanco rx to dose) 1 ea DAILY PRN MISC . 01/16/17 13:15 02/15/17 13:14 DIONI TRIANA Jan 17, 2017 13:15
--- NOTE | 2017-01-17 13:46 | Internal Med Progress Note ---
Subjective Date of Service: Jan 17, 2017 Physician Name Pond,Katharina Attending Physician Rl Tee MD Current Medications Medications (Trade) Dose Ordered Sig/Pavel Route PRN Reason Start Time Stop Time Status Last Admin Dose Admin Acetaminophen (Tylenol) 650 mg Q4H PRN ORAL T>100.5 01/16/17 12:45 02/15/17 12:44 Albuterol/ Ipratropium (DuoNeb 0.5-3(2.5)mg/3ml) 3 ml Q4H PRN HHN Shortness of Breath 01/16/17 12:45 01/21/17 12:44 Cefepime HCl 1 gm/ Dextrose 55 ml @ 110 mls/hr Q24H IVPB 01/17/17 14:00 01/24/17 13:59 Dextrose (Dextrose 50%) STAT PRN IV Hypoglycemia 01/16/17 12:45 02/15/17 12:44 Gabapentin (Neurontin) 300 mg THREE TIMES A DAY ORAL 01/16/17 13:00 02/15/17 12:59 01/17/17 13:09 Insulin Aspart (NovoLOG) BEFORE MEALS AND HS SUBQ 01/16/17 16:30 02/15/17 16:29 01/17/17 11:46 Lactulose (Cephulac) 20 gm THREE TIMES A DAY ORAL 01/16/17 13:00 02/15/17 12:59 01/17/17 13:09 Morphine Sulfate (Morphine Sulfate) 2 mg Q4H PRN IVP Moderate Pain (Pain Scale 4-6) 01/16/17 12:45 01/23/17 12:44 Nitroglycerin (Ntg) 0.4 mg Q5MIN X 3 DOSES PRN SL Prn Chest Pain 01/16/17 13:00 02/15/17 12:59 Ondansetron HCl (Zofran) 4 mg Q6H PRN IVP Nausea & Vomiting 01/16/17 12:45 02/15/17 12:44 Pantoprazole (Protonix) 40 mg EVERY 12 HOURS ORAL 01/16/17 21:00 02/15/17 20:59 01/17/17 08:31 Polyethylene Glycol (Miralax) 17 gm DAILYPRN PRN ORAL Constipation 01/16/17 12:45 02/15/17 12:44 Rifaximin (Xifaxan) 550 mg EVERY 12 HOURS ORAL 01/16/17 21:00 01/23/17 20:59 01/17/17 08:31 Sertraline HCl (Zoloft) 50 mg DAILY ORAL 01/17/17 09:00 02/16/17 08:59 01/17/17 08:31 Temazepam (Restoril) 15 mg HSPRN PRN ORAL Insomnia 01/16/17 21:00 01/23/17 20:59 Vancomycin HCl (Vanco rx to dose) 1 ea DAILY PRN MISC . 01/16/17 13:15 02/15/17 13:14 Allergies: Coded Allergies: PENICILLINS (Unverified Allergy, Unknown, 03/22/15) Uncoded Allergies: PENICILLIN (Allergy, Unknown, 01/16/17) ROS Limited/Unobtainable: Yes Subjective 76 YO F admitted with altered mental status. Now UTI and CHF. Cover for Int Med-Dr Tee Objective Last Vital Signs Date Time Temp Pulse Resp B/P (MAP) Pulse Ox O2 Delivery O2 Flow Rate FiO2 01/17/17 12:00 60 01/17/17 12:00 96.5 20 98/50 97 Nasal Cannula 2.0 General Appearance: WD/WN, no apparent distress, moderate distress, obese EENT: PERRL/EOMI, normal ENT inspection Neck: non-tender, normal alignment, supple, normal inspection Cardiovascular: normal peripheral pulses, normal rate, regular rhythm, no gallop/murmur, no JVD Respiratory/Chest: chest wall non-tender, lungs clear, normal breath sounds, no respiratory distress, no accessory muscle use Abdomen: non tender, no organomegaly, no mass 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, no motor/sensory deficits Skin: normal pigmentation, warm/dry Laboratory Tests Test 01/16/17 18:31 Urine Color Yellow Urine Appearance Very cloudy Urine pH 5 (4.5-8.0) Urine Specific [place] 1.020 (1.005-1.035) Urine Protein 2+ (NEGATIVE) H Urine Glucose (UA) Negative (NEGATIVE) Urine Ketones Negative (NEGATIVE) Urine Occult Blood 5+ (NEGATIVE) H Urine Nitrite Negative (NEGATIVE) Urine Bilirubin Negative (NEGATIVE) Urine Urobilinogen Normal MG/DL (0.0-1.0) Urine Leukocyte Esterase 3+ (NEGATIVE) H Urine RBC 2-4 /HPF (0 - 2) H Urine WBC Tntc /HPF (0 - 2) H Urine Squamous Epithelial Cells Moderate /LPF (NONE/OCC) H Urine Bacteria Moderate /HPF (NONE) H Urine Yeast Many /HPF (NONE) H Microbiology Date/Time Source Procedure Growth Status 01/16/17 12:25 Nasal Nares Influenza Types A,B Antigen (JOSE A) - Final Complete 01/16/17 11:55 Urine,Clean Catch Urine Culture - Preliminary Gram Negative Zaid Resulted Intake and Output 01/17/17 01/18/17 19:00 07:00 Intake Total 480 ml Balance 480 ml Intake Oral 480 ml # Bowel Movements 2 Assessment/Plan Problem List: (1) UTI (urinary tract infection) Assessment & Plan: Gram neg zaid. See ID note. Continue cefepime per ID (2) CHF (congestive heart failure) Assessment & Plan: see cardiology note. (3) DM (diabetes mellitus) Assessment & Plan: Continue novolog sliding scale (4) Hypercholesteremia (5) HTN (hypertension) Assessment & Plan: Currently hypotensive. (6) Uncontrolled diabetes mellitus (7) Cirrhosis Assessment & Plan: see GI note. (8) Anemia (9) Altered mental status Status: not improved KATHARINA POND Jan 17, 2017 13:46
[2017-01-17] MEDS ORDERED: Cefepime 1gm/D5W 55ml IVPB SCH ×2 (14:00)
[2017-01-17 14:27] LABS: APPEARANCE,URINE VERY CLOUDY; BILIRUBIN, URINE NEGATIVE (NEGATIVE); COLOR,URINE AMBER; GLUCOSE, URINE (UA) NEGATIVE (NEGATIVE); KETONES,URINE NEGATIVE (NEGATIVE); LEUKOCYTE ESTERASE ,URINE 3+ (NEGATIVE); NITRITE,URINE NEGATIVE (NEGATIVE); PH,URINE 5 (4.5-8.0); PROTEIN,URINE 3+ (NEGATIVE); UROBILINOGEN,URINE NORMAL MG/DL (0.0-1.0)
--- NOTE | 2017-01-17 14:59 | Cardiac Electrophysiology PN ---
Subjective Subjective [id number] Objective Last 24 Hour Vital Signs Date Time Temp Pulse Resp B/P (MAP) Pulse Ox O2 Delivery O2 Flow Rate FiO2 01/17/17 12:00 60 01/17/17 12:00 96.5 62 20 98/50 97 Nasal Cannula 2.0 01/17/17 08:00 96.5 72 20 121/72 98 Nasal Cannula 2.0 01/17/17 08:00 69 01/17/17 04:00 67 01/17/17 04:00 97.0 67 23 119/57 100 Nasal Cannula 2.0 01/17/17 00:00 63 01/17/17 00:00 97.0 57 24 118/55 100 Nasal Cannula 2.0 01/16/17 20:00 66 01/16/17 20:00 97.0 67 16 105/61 99 Nasal Cannula 2.0 01/16/17 17:08 98.0 66 24 128/67 97 Nasal Cannula 2.0 01/16/17 16:00 68 Intake and Output 01/17/17 01/18/17 19:00 07:00 Intake Total 535 ml Balance 535 ml Intake Oral 480 ml IV Total 55 ml # Bowel Movements 2 Laboratory Tests Test 01/16/17 18:31 01/17/17 13:43 Urine Color Yellow Shira Urine Appearance Very cloudy Very cloudy Urine pH 5 (4.5-8.0) 5 (4.5-8.0) Urine Specific [place] 1.020 (1.005-1.035) 1.020 (1.005-1.035) Urine Protein 2+ (NEGATIVE) H 3+ (NEGATIVE) H Urine Glucose (UA) Negative (NEGATIVE) Negative (NEGATIVE) Urine Ketones Negative (NEGATIVE) Negative (NEGATIVE) Urine Occult Blood 5+ (NEGATIVE) H 5+ (NEGATIVE) H Urine Nitrite Negative (NEGATIVE) Negative (NEGATIVE) Urine Bilirubin Negative (NEGATIVE) Negative (NEGATIVE) Urine Urobilinogen Normal MG/DL (0.0-1.0) Normal MG/DL (0.0-1.0) Urine Leukocyte Esterase 3+ (NEGATIVE) H 3+ (NEGATIVE) H Urine RBC 2-4 /HPF (0 - 2) H 15-20 /HPF (0 - 2) H Urine WBC Tntc /HPF (0 - 2) H 30-40 /HPF (0 - 2) H Urine Squamous Epithelial Cells Moderate /LPF (NONE/OCC) H Few /LPF (NONE/OCC) Urine Bacteria Moderate /HPF (NONE) H Moderate /HPF (NONE) H Urine Yeast Many /HPF (NONE) H Many /HPF (NONE) H Urine Ictotest Negative Urine Eosinophils Pending Urine Random Sodium 38 mmol/L Urine Potassium Timed 32 mmol/L Microbiology Date/Time Source Procedure Growth Status 01/16/17 12:25 Nasal Nares Influenza Types A,B Antigen (JOSE A) - Final Complete 01/16/17 11:55 Urine,Clean Catch Urine Culture - Preliminary Gram Negative Zaid Resulted DEAN SHAW Jan 17, 2017 14:59
[2017-01-17 16:13] VITALS: BP 115/64
[2017-01-17 20:00] VITALS: BP 112/48
--- NOTE | 2017-01-17 20:32 | General Progress Note ---
Assessment/Plan Assessment/Plan Assessment - DURANT with cirrhosis - Hepatic encephalopathy - elevated CEA with negative recent EGD/Colon Recommendations - change lactulose to enemas - Xifaxan - Aspiration precautions - Follow labs and mental status Subjective Allergies: Coded Allergies: PENICILLINS (Unverified Allergy, Unknown, 03/22/15) Uncoded Allergies: PENICILLIN (Allergy, Unknown, 01/16/17) Subjective more confused this evening was more awake earlier d/w staff respiratory therapist unable to give po lactulose Objective Last 24 Hour Vital Signs Date Time Temp Pulse Resp B/P (MAP) Pulse Ox O2 Delivery O2 Flow Rate FiO2 01/17/17 20:00 96.1 73 18 112/48 99 Nasal Cannula 2.0 01/17/17 16:13 96.2 70 20 115/64 96 Nasal Cannula 2.0 01/17/17 16:00 69 01/17/17 12:00 60 01/17/17 12:00 96.5 62 20 98/50 97 Nasal Cannula 2.0 01/17/17 08:00 96.5 72 20 121/72 98 Nasal Cannula 2.0 01/17/17 08:00 69 01/17/17 04:00 67 01/17/17 04:00 97.0 67 23 119/57 100 Nasal Cannula 2.0 01/17/17 00:00 63 01/17/17 00:00 97.0 57 24 118/55 100 Nasal Cannula 2.0 Intake and Output 01/17/17 01/18/17 19:00 07:00 Intake Total 655 ml Output Total 500 ml Balance 155 ml Intake Oral 600 ml IV Total 55 ml Output Urine Total 500 ml # Bowel Movements 4 Laboratory Tests 01/17/17 13:43: Urine Color Shira, Urine Appearance Very cloudy, Urine pH 5, Urine Specific [place] 1.020, Urine Protein 3+H, Urine Glucose (UA) Negative, Urine Ketones Negative, Urine Occult Blood 5+H, Urine Nitrite Negative, Urine Bilirubin Negative, Urine Ictotest Negative, Urine Urobilinogen Normal, Urine Leukocyte Esterase 3+H, Urine RBC 15-20H, Urine WBC 30-40H, Urine Squamous Epithelial Cells Few, Urine Bacteria ModerateH, Urine Yeast ManyH, Urine Eosinophils [ Pending], Urine Random Sodium 38, Urine Potassium Timed 32 01/17/17 15:15: Stool Occult Blood [Pending] Height (Feet): 5 Height (Inches): 6.00 Weight (Pounds): 250 Objective Obese WW NCAT supple CTA RRR soft ND NT (+) edema delirium KIERSTEN DAVIES Jan 17, 2017 20:32
[2017-01-18] VITALS: BP 113/53
[2017-01-18 04:00] VITALS: BP 114/55
[2017-01-18] MEDS: NovoLOG Insulin Flexpen SUBQ SCH ×4 (06:21→20:48)
[2017-01-18 08:00] VITALS: BP 115/55
--- NOTE | 2017-01-18 08:49 | Infectious Diseases Prog Note ---
Assessment/Plan Assessment/Plan A: UTI Altered mental status Cirrhosis Anemia & thrombocytopenia DM type 2 Morbid obesity P: Continue Cefepime May discontinue Vancomycin Subjective ROS Limited/Unobtainable: Yes Allergies: Coded Allergies: PENICILLINS (Unverified Allergy, Unknown, 03/22/15) Uncoded Allergies: PENICILLIN (Allergy, Unknown, 01/16/17) Objective Vital Signs Last 24 Hour Vital Signs Date Time Temp Pulse Resp B/P (MAP) Pulse Ox O2 Delivery O2 Flow Rate FiO2 01/18/17 04:38 71 01/18/17 04:00 96.6 74 18 114/55 96 Nasal Cannula 2.0 01/18/17 00:00 96.4 72 18 113/53 97 Nasal Cannula 2.0 01/17/17 23:39 71 01/17/17 20:00 96.1 73 18 112/48 99 Nasal Cannula 2.0 01/17/17 19:05 71 01/17/17 16:13 96.2 70 20 115/64 96 Nasal Cannula 2.0 01/17/17 16:00 69 01/17/17 12:00 60 01/17/17 12:00 96.5 62 20 98/50 97 Nasal Cannula 2.0 Height (Feet): 5 Height (Inches): 6.00 Weight (Pounds): 250 General Appearance: other - obese HEENT: mucous membranes moist Respiratory/Chest: lungs clear Cardiovascular: normal rate Abdomen: soft, non tender Extremities: no edema Neurologic/Psychiatric: other - sleeping Microbiology Date/Time Source Procedure Growth Status 01/16/17 10:55 Blood Blood Culture - Preliminary NO GROWTH AFTER 24 HOURS Resulted 01/16/17 10:55 Blood Blood Culture - Preliminary NO GROWTH AFTER 24 HOURS Resulted 01/16/17 12:25 Nasal Nares Influenza Types A,B Antigen (JOSE A) - Final Complete 01/16/17 11:55 Urine,Clean Catch Urine Culture - Preliminary Gram Negative Zaid Resulted Laboratory Tests Test 01/17/17 13:43 01/17/17 15:15 Urine Color Shira Urine Appearance Very cloudy Urine pH 5 (4.5-8.0) Urine Specific [place] 1.020 (1.005-1.035) Urine Protein 3+ (NEGATIVE) H Urine Glucose (UA) Negative (NEGATIVE) Urine Ketones Negative (NEGATIVE) Urine Occult Blood 5+ (NEGATIVE) H Urine Nitrite Negative (NEGATIVE) Urine Bilirubin Negative (NEGATIVE) Urine Ictotest Negative Urine Urobilinogen Normal MG/DL (0.0-1.0) Urine Leukocyte Esterase 3+ (NEGATIVE) H Urine RBC 15-20 /HPF (0 - 2) H Urine WBC 30-40 /HPF (0 - 2) H Urine Squamous Epithelial Cells Few /LPF (NONE/OCC) Urine Bacteria Moderate /HPF (NONE) H Urine Yeast Many /HPF (NONE) H Urine Eosinophils None seen Urine Random Sodium 38 mmol/L Urine Potassium Timed 32 mmol/L Stool Occult Blood Pending Current Medications Medications (Trade) Dose Ordered Sig/Pavel Route PRN Reason Start Time Stop Time Status Last Admin Dose Admin Acetaminophen (Tylenol) 650 mg Q4H PRN ORAL T>100.5 01/16/17 12:45 02/15/17 12:44 Albuterol/ Ipratropium (DuoNeb 0.5-3(2.5)mg/3ml) 3 ml Q4H PRN HHN Shortness of Breath 01/16/17 12:45 01/21/17 12:44 Cefepime HCl 1 gm/ Dextrose 55 ml @ 110 mls/hr Q24H IVPB 01/17/17 14:00 01/24/17 13:59 01/17/17 13:47 Dextrose (Dextrose 50%) STAT PRN IV Hypoglycemia 01/16/17 12:45 02/15/17 12:44 Furosemide (Lasix) 40 mg DAILY IV 01/18/17 09:00 02/17/17 08:59 Gabapentin (Neurontin) 300 mg THREE TIMES A DAY ORAL 01/16/17 13:00 02/15/17 12:59 01/17/17 18:30 Insulin Aspart (NovoLOG) BEFORE MEALS AND HS SUBQ 01/16/17 16:30 02/15/17 16:29 01/18/17 06:21 Lactulose (Cephulac) 20 gm THREE TIMES A DAY ORAL 01/16/17 13:00 02/15/17 12:59 01/17/17 18:30 Morphine Sulfate (Morphine Sulfate) 2 mg Q4H PRN IVP Moderate Pain (Pain Scale 4-6) 01/16/17 12:45 01/23/17 12:44 Nitroglycerin (Ntg) 0.4 mg Q5MIN X 3 DOSES PRN SL Prn Chest Pain 01/16/17 13:00 02/15/17 12:59 Ondansetron HCl (Zofran) 4 mg Q6H PRN IVP Nausea & Vomiting 01/16/17 12:45 02/15/17 12:44 Pantoprazole (Protonix) 40 mg EVERY 12 HOURS ORAL 01/16/17 21:00 02/15/17 20:59 01/17/17 22:04 Polyethylene Glycol (Miralax) 17 gm DAILYPRN PRN ORAL Constipation 01/16/17 12:45 02/15/17 12:44 Rifaximin (Xifaxan) 550 mg EVERY 12 HOURS ORAL 01/16/17 21:00 01/23/17 20:59 01/17/17 22:05 Sertraline HCl (Zoloft) 50 mg DAILY ORAL 01/17/17 09:00 02/16/17 08:59 01/17/17 08:31 Temazepam (Restoril) 15 mg HSPRN PRN ORAL Insomnia 01/16/17 21:00 01/23/17 20:59 Vancomycin HCl (Vanco rx to dose) 1 ea DAILY PRN MISC . 01/16/17 13:15 02/15/17 13:14 SUMMER BYRNES Jan 18, 2017 08:49
[2017-01-18] MEDS: Lactulose 20gm/30ml UDC ORAL SCH ×3 (09:22→17:11)
[2017-01-18] MEDS: Sertraline 50mg tab ORAL SCH (09:22)
--- NOTE | 2017-01-18 11:48 | Pulmonology Progress Note ---
Assessment/Plan Problems: (1) Altered level of consciousness (2) ESBL (extended spectrum beta-lactamase) producing bacteria infection (3) Cardiomegaly (4) DM (diabetes mellitus) (5) HTN (hypertension) (6) UTI (urinary tract infection) Assessment/Plan check ammonia level ( refusing blood) lactulose check cultures check sensitivity eating 25% of her food med/surg try to obtain blood Subjective Constitutional: Reports: no symptoms Respiratory: Reports: no symptoms Allergies: Coded Allergies: PENICILLINS (Unverified Allergy, Unknown, 03/22/15) Uncoded Allergies: PENICILLIN (Allergy, Unknown, 01/16/17) Objective Last 24 Hour Vital Signs Date Time Temp Pulse Resp B/P (MAP) Pulse Ox O2 Delivery O2 Flow Rate FiO2 01/18/17 08:00 71 01/18/17 08:00 96.7 75 18 115/55 100 Nasal Cannula 2.0 01/18/17 04:38 71 01/18/17 04:00 96.6 74 18 114/55 96 Nasal Cannula 2.0 01/18/17 00:00 96.4 72 18 113/53 97 Nasal Cannula 2.0 01/17/17 23:39 71 01/17/17 20:00 96.1 73 18 112/48 99 Nasal Cannula 2.0 01/17/17 19:05 71 01/17/17 16:13 96.2 70 20 115/64 96 Nasal Cannula 2.0 01/17/17 16:00 69 01/17/17 12:00 60 01/17/17 12:00 96.5 62 20 98/50 97 Nasal Cannula 2.0 Intake and Output 01/18/17 01/19/17 19:00 07:00 Intake Total 300 ml Balance 300 ml Intake Oral 300 ml # Bowel Movements 1 Objective General Appearance: WD/WN HEENT: normocephalic Breasts: no masses Cardiovascular: normal peripheral pulses Abdomen: normal bowel sounds, no organomegaly Genitourinary: normal external genitalia 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 Microbiology Date/Time Source Procedure Growth Status 01/16/17 10:55 Blood Blood Culture - Preliminary NO GROWTH AFTER 24 HOURS Resulted 01/16/17 10:55 Blood Blood Culture - Preliminary NO GROWTH AFTER 24 HOURS Resulted 01/16/17 12:25 Nasal Nares Influenza Types A,B Antigen (JOSE A) - Final Complete 01/16/17 18:31 Urine,Clean Catch Urine Culture - Preliminary Gram Negative Bacillus 1 Resulted 01/16/17 11:55 Urine,Clean Catch Urine Culture - Preliminary A.[email or web address] Complx - Mdr Resulted Laboratory Tests 01/17/17 13:43: Urine Color Shira, Urine Appearance Very cloudy, Urine pH 5, Urine Specific [place] 1.020, Urine Protein 3+H, Urine Glucose (UA) Negative, Urine Ketones Negative, Urine Occult Blood 5+H, Urine Nitrite Negative, Urine Bilirubin Negative, Urine Ictotest Negative, Urine Urobilinogen Normal, Urine Leukocyte Esterase 3+H, Urine RBC 15-20H, Urine WBC 30-40H, Urine Squamous Epithelial Cells Few, Urine Bacteria ModerateH, Urine Yeast ManyH, Urine Eosinophils None seen, Urine Random Sodium 38, Urine Potassium Timed 32 01/17/17 15:15: Stool Occult Blood [Pending] Current Medications Medications (Trade) Dose Ordered Sig/Pavel Route PRN Reason Start Time Stop Time Status Last Admin Dose Admin Acetaminophen (Tylenol) 650 mg Q4H PRN ORAL T>100.5 01/16/17 12:45 02/15/17 12:44 Albuterol/ Ipratropium (DuoNeb 0.5-3(2.5)mg/3ml) 3 ml Q4H PRN HHN Shortness of Breath 01/16/17 12:45 01/21/17 12:44 Cefepime HCl 1 gm/ Dextrose 55 ml @ 110 mls/hr Q24H IVPB 01/17/17 14:00 01/24/17 13:59 01/17/17 13:47 Dextrose (Dextrose 50%) STAT PRN IV Hypoglycemia 01/16/17 12:45 02/15/17 12:44 Furosemide (Lasix) 40 mg DAILY IV 01/18/17 09:00 02/17/17 08:59 01/18/17 09:22 Gabapentin (Neurontin) 300 mg THREE TIMES A DAY ORAL 01/16/17 13:00 02/15/17 12:59 01/18/17 09:21 Insulin Aspart (NovoLOG) BEFORE MEALS AND HS SUBQ 01/16/17 16:30 02/15/17 16:29 01/18/17 06:21 Lactulose (Cephulac) 20 gm THREE TIMES A DAY ORAL 01/16/17 13:00 02/15/17 12:59 01/18/17 09:22 Morphine Sulfate (Morphine Sulfate) 2 mg Q4H PRN IVP Moderate Pain (Pain Scale 4-6) 01/16/17 12:45 01/23/17 12:44 Nitroglycerin (Ntg) 0.4 mg Q5MIN X 3 DOSES PRN SL Prn Chest Pain 01/16/17 13:00 02/15/17 12:59 Ondansetron HCl (Zofran) 4 mg Q6H PRN IVP Nausea & Vomiting 01/16/17 12:45 02/15/17 12:44 Pantoprazole (Protonix) 40 mg EVERY 12 HOURS ORAL 01/16/17 21:00 02/15/17 20:59 01/18/17 09:22 Polyethylene Glycol (Miralax) 17 gm DAILYPRN PRN ORAL Constipation 01/16/17 12:45 02/15/17 12:44 Rifaximin (Xifaxan) 550 mg EVERY 12 HOURS ORAL 01/16/17 21:00 01/23/17 20:59 01/18/17 09:22 Sertraline HCl (Zoloft) 50 mg DAILY ORAL 01/17/17 09:00 02/16/17 08:59 01/18/17 09:22 Temazepam (Restoril) 15 mg HSPRN PRN ORAL Insomnia 01/16/17 21:00 01/23/17 20:59 DIONI TRIANA Jan 18, 2017 11:48
[2017-01-18 12:00] VITALS: BP 113/55
[2017-01-18] MEDS ORDERED: Minocycline HCl 50mg cap ORAL SCH (12:30)
--- NOTE | 2017-01-18 12:37 | Internal Med Progress Note ---
Subjective Date of Service: Jan 18, 2017 Physician Name Katharina Pond Attending Physician Rl Tee MD Current Medications Medications (Trade) Dose Ordered Sig/Pavel Route PRN Reason Start Time Stop Time Status Last Admin Dose Admin Acetaminophen (Tylenol) 650 mg Q4H PRN ORAL T>100.5 01/16/17 12:45 02/15/17 12:44 Albuterol/ Ipratropium (DuoNeb 0.5-3(2.5)mg/3ml) 3 ml Q4H PRN HHN Shortness of Breath 01/16/17 12:45 01/21/17 12:44 Cefepime HCl 1 gm/ Dextrose 55 ml @ 110 mls/hr Q24H IVPB 01/17/17 14:00 01/24/17 13:59 01/17/17 13:47 Dextrose (Dextrose 50%) STAT PRN IV Hypoglycemia 01/16/17 12:45 02/15/17 12:44 Furosemide (Lasix) 40 mg DAILY IV 01/18/17 09:00 02/17/17 08:59 01/18/17 09:22 Gabapentin (Neurontin) 300 mg THREE TIMES A DAY ORAL 01/16/17 13:00 02/15/17 12:59 01/18/17 12:18 Insulin Aspart (NovoLOG) BEFORE MEALS AND HS SUBQ 01/16/17 16:30 02/15/17 16:29 01/18/17 11:56 Lactulose (Cephulac) 20 gm THREE TIMES A DAY ORAL 01/16/17 13:00 02/15/17 12:59 01/18/17 12:18 Minocycline HCl (Minocin) 100 mg Q12HR ORAL 01/18/17 12:30 01/25/17 12:29 01/18/17 12:18 Morphine Sulfate (Morphine Sulfate) 2 mg Q4H PRN IVP Moderate Pain (Pain Scale 4-6) 01/16/17 12:45 01/23/17 12:44 Nitroglycerin (Ntg) 0.4 mg Q5MIN X 3 DOSES PRN SL Prn Chest Pain 01/16/17 13:00 02/15/17 12:59 Ondansetron HCl (Zofran) 4 mg Q6H PRN IVP Nausea & Vomiting 01/16/17 12:45 02/15/17 12:44 Pantoprazole (Protonix) 40 mg EVERY 12 HOURS ORAL 01/16/17 21:00 02/15/17 20:59 01/18/17 09:22 Polyethylene Glycol (Miralax) 17 gm DAILYPRN PRN ORAL Constipation 01/16/17 12:45 02/15/17 12:44 Rifaximin (Xifaxan) 550 mg EVERY 12 HOURS ORAL 01/16/17 21:00 01/23/17 20:59 01/18/17 09:22 Sertraline HCl (Zoloft) 50 mg DAILY ORAL 01/17/17 09:00 02/16/17 08:59 01/18/17 09:22 Temazepam (Restoril) 15 mg HSPRN PRN ORAL Insomnia 01/16/17 21:00 01/23/17 20:59 Allergies: Coded Allergies: PENICILLINS (Unverified Allergy, Unknown, 03/22/15) Uncoded Allergies: PENICILLIN (Allergy, Unknown, 01/16/17) ROS Limited/Unobtainable: Yes Subjective 76 YO F admitted with altered mental status. Now UTI and CHF. Cover for Int Med-Dr Tee Objective Last Vital Signs Date Time Temp Pulse Resp B/P (MAP) Pulse Ox O2 Delivery O2 Flow Rate FiO2 01/18/17 08:00 71 01/18/17 08:00 96.7 18 115/55 100 Nasal Cannula 2.0 Laboratory Tests Test 01/17/17 13:43 01/17/17 15:15 Urine Color Shira Urine Appearance Very cloudy Urine pH 5 (4.5-8.0) Urine Specific [place] 1.020 (1.005-1.035) Urine Protein 3+ (NEGATIVE) H Urine Glucose (UA) Negative (NEGATIVE) Urine Ketones Negative (NEGATIVE) Urine Occult Blood 5+ (NEGATIVE) H Urine Nitrite Negative (NEGATIVE) Urine Bilirubin Negative (NEGATIVE) Urine Ictotest Negative Urine Urobilinogen Normal MG/DL (0.0-1.0) Urine Leukocyte Esterase 3+ (NEGATIVE) H Urine RBC 15-20 /HPF (0 - 2) H Urine WBC 30-40 /HPF (0 - 2) H Urine Squamous Epithelial Cells Few /LPF (NONE/OCC) Urine Bacteria Moderate /HPF (NONE) H Urine Yeast Many /HPF (NONE) H Urine Eosinophils None seen Urine Random Sodium 38 mmol/L Urine Potassium Timed 32 mmol/L Stool Occult Blood Pending Microbiology Date/Time Source Procedure Growth Status 01/16/17 10:55 Blood Blood Culture - Preliminary NO GROWTH AFTER 24 HOURS Resulted 01/16/17 10:55 Blood Blood Culture - Preliminary NO GROWTH AFTER 24 HOURS Resulted 01/16/17 12:25 Nasal Nares Influenza Types A,B Antigen (JOSE A) - Final Complete 01/17/17 13:43 Urine,Clean Catch Urine Culture - Preliminary Resulted 01/16/17 18:31 Urine,Clean Catch Urine Culture - Preliminary Gram Negative Bacillus 1 Resulted 01/16/17 11:55 Urine,Clean Catch Urine Culture - Preliminary A.baumanii Complx - Mdr Resulted Intake and Output 01/18/17 01/19/17 19:00 07:00 Intake Total 300 ml Balance 300 ml Intake Oral 300 ml # Bowel Movements 1 Objective General Appearance: WD/WN, no apparent distress, moderate distress, obese EENT: PERRL/EOMI, normal ENT inspection Neck: non-tender, normal alignment, supple, normal inspection Cardiovascular: normal peripheral pulses, normal rate, regular rhythm, no gallop/murmur, no JVD Respiratory/Chest: chest wall non-tender, lungs clear, normal breath sounds, no respiratory distress, no accessory muscle use Abdomen: G-Tube; non tender, no organomegaly, no mass Neurologic: vice president quality assurance 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 Baumanii. See ID note. Antibiotics per ID (2) CHF (congestive heart failure) Assessment & Plan: see cardiology note. (3) DM (diabetes mellitus) Assessment & Plan: Continue novolog sliding scale (4) Hypercholesteremia (5) HTN (hypertension) Assessment & Plan: Currently hypotensive. (6) Uncontrolled diabetes mellitus (7) Cirrhosis Assessment & Plan: see GI note. (8) Anemia (9) Altered mental status Status: not improved KATHARINA POND Jan 18, 2017 12:37
[2017-01-18] MEDS ORDERED: Nitroglycerin Subl 0.4mg tab SL PRN (13:45)
[2017-01-18] MEDS ORDERED: Morphine Sulfate 2mg/ml Inj IVP PRN (14:00)
[2017-01-18] MEDS ORDERED: Albuterol/Ipratropium 3ml neb HHN PRN (14:00)
[2017-01-18] MEDS ORDERED: Miralax 17gm pkt ORAL PRN (14:00)
[2017-01-18] MEDS: Cefepime HCl 1 GM in D5W 55 ML IVPB SCH (14:43)
[2017-01-18] MEDS ORDERED: Tubing IV Secondary IV ONE (15:27)
[2017-01-18] MEDS ORDERED: NS 500ML IV ONE (15:27)
[2017-01-18 15:51] VITALS: BP 114/52
--- NOTE | 2017-01-18 16:54 | Consultation ---
History of Present Illness General Date patient seen: Jan 17, 2017 Chief Complaint: Altered Level of Consciousness Reason for Consultation: ANEMIA/CIRRHOSIS Present Illness HPI the pt is from [facility]. Im her psychiatrist. the pt was dced recently and now readmitted with similar presentation. the pt was admitted with confusion and lethargy. the pt at baseline is aaox4. Allergies: Coded Allergies: PENICILLINS (Unverified Allergy, Unknown, 03/22/15) Uncoded Allergies: PENICILLIN (Allergy, Unknown, 01/16/17) Medication History Scheduled Ascorbic Acid* (Vitamin C*), 500 MG ORAL DAILY, (Reported) Atorvastatin Calcium* (Atorvastatin Calcium*), 20 MG ORAL BEDTIME, (Reported) Clobetasol Propionate/Emoll (Clobetasol Emollient 0.05% Crm), 15 GM TP Q12HR, ( Reported) Clopidogrel Bisulfate* (Plavix*), 75 MG ORAL DAILY, (Reported) Cranberry Fruit Concentrate (Cranberry), 450 MG PO DAILY, (Reported) Docusate Sodium* (Docusate Sodium*), 100 MG ORAL BID, (Reported) Ertapenem Sodium* (INVanz*), 1 GM IVPB Q24H, (Reported) Famotidine (Famotidine), 40 MG ORAL EVERY 12 HOURS, (Reported) Ferrous Sulfate (Ferrous Sulfate), 325 MG PO BID, (Reported) Gabapentin* (Gabapentin*), 300 MG ORAL THREE TIMES A DAY, (Reported) Insulin Detemir (Levemir), 25 UNITS SUBQ BEDTIME, (Reported) Lactulose (Lactulose*), 30 ML ORAL THREE TIMES A DAY, (Reported) Losartan Potassium* (Losartan Potassium*), 12.5 MG ORAL DAILY, (Reported) Magnesium Chloride (Mag64), 64 MG PO DAILY, (Reported) Metoprolol Tartrate* (Metoprolol Tartrate*), 25 MG ORAL EVERY 12 HOURS, ( Reported) Multivitamins* (Multivitamins*), 1 TAB ORAL DAILY, (Reported) Nateglinide* (Starlix*), 60 MG ORAL BEFORE MEALS, (Reported) Nitroglycerin (Nitroglycerin), 0.4 MG SL EVERY 5 MIN, (Reported) Omeprazole (Omeprazole), 40 MG ORAL DAILY, (Reported) Pantoprazole* (Protonix*), 40 MG ORAL DAILY, (Reported) Polyethylene Glycol 3350* (Miralax*), 17 GM ORAL DAILY, (Reported) Ranitidine Hcl* (Zantac*), 150 MG ORAL DAILY, (Reported) Sertraline Hcl* (Sertraline Hcl*), 50 MG ORAL DAILY, (Reported) Temazepam (Restoril*), 15 MG ORAL BEDTIME, (Reported) Scheduled PRN Acetaminophen (Acetaminophen), 650 MG ORAL Q4HR PRN for Prn Headache/Temp > 101, (Reported) Calamine/Zinc Oxide (Calamine Lotion*), Unknown Dose TP PRN PRN for Itching, ( Reported) Diphenhydramine Hcl* (Benadryl*), 25 MG ORAL Q4HR PRN for Itching, (Reported) Hydrocodone/Acetaminophen (Hydrocodon-Acetaminophn 10-325), 1 TAB ORAL Q6H PRN for For Pain, (Reported) Ipratropium/Albuterol Sulfate (DuoNeb 0.5-3(2.5)mg/3ml), 3 ML HHN Q4HR PRN for Shortness of Breath, (Reported) Metoclopramide Hcl* (Reglan*), 5 MG ORAL Q8HR PRN for Nausea & Vomiting, ( Reported) Simethicone* (Simethicone*), 160 MG ORAL Q8H PRN for Abdominal cramps, (Reported ) Miscellaneous Medications Insulin Aspart* (Novolog*), 0 SUBQ, (Reported) Patient History Limited by: medical condition History Provided By: Patient, Medical Record, PMD Healthcare decision maker Resuscitation status Full Code Advanced Directive on File No Past Medical/Surgical History Past Medical/Surgical History: (1) Pruritic dermatitis (2) Acute respiratory failure (3) Hypokalemia (4) Hyperkalemia (5) Hypomagnesemia (6) Hypercalcemia (7) Fever (8) Diabetes mellitus (9) Gastrointestinal hemorrhage (10) Ascites (11) Cellulitis (12) Cholecystitis (13) Cough (14) Dysphagia (15) Respiratory distress (16) Hyperbilirubinemia (17) Hypernatremia (18) Hyponatremia (19) Pancreatitis (20) Renal failure (21) Tachycardia (22) Wheezing (23) Sepsis (24) Altered mental status (25) Diabetic nephropathy (26) Hypertension (27) Fall (28) Obesity (29) ARF (acute renal failure) (30) Sleep apnea (31) GI bleed (32) Acidosis, metabolic (33) Sleep apnea, obstructive (34) Elevated liver function tests (35) Peripheral autonomic neuropathy due to diabetes mellitus (36) Severe sepsis (37) MRSA pneumonia (38) RAMYA (acute kidney injury) (39) Abdominal wall cellulitis (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 (41) Infection due to ESBL-producing Escherichia coli (42) Urinary tract infection due to ESBL Klebsiella (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 (44) G-tube site cellulitis (45) Cardiomyopathy (46) Altered mental status (47) Dehydration (48) Anemia (49) Generalized weakness (50) Cirrhosis (51) Diabetes mellitus, type II (52) GERD (gastroesophageal reflux disease) (53) Encephalopathy acute (54) Elevated CEA (55) Elevated liver enzymes (56) CHF (congestive heart failure) (57) Hypercholesteremia (58) UTI (urinary tract infection) (59) HTN (hypertension) (60) DM (diabetes mellitus) (61) Uncontrolled diabetes mellitus (62) Cardiomegaly (63) ESBL (extended spectrum beta-lactamase) producing bacteria infection (64) Altered level of consciousness Review of Systems Constitutional: Reports: malaise, weakness Psychiatric: Reports: anxiety, depressed feelings, emotional problems, hallucinations Physical Exam General Appearance: no apparent distress, lethargic, confused, obese Neurologic: disoriented, depressed affect Last 24 Hour Vital Signs Date Time Temp Pulse Resp B/P (MAP) Pulse Ox O2 Delivery O2 Flow Rate FiO2 01/18/17 15:51 98.0 76 21 114/52 97 Nasal Cannula 2.0 01/18/17 12:00 97.0 76 20 113/55 99 Nasal Cannula 2.0 01/18/17 12:00 71 01/18/17 08:00 71 01/18/17 08:00 96.7 75 18 115/55 100 Nasal Cannula 2.0 01/18/17 04:38 71 01/18/17 04:00 96.6 74 18 114/55 96 Nasal Cannula 2.0 01/18/17 00:00 96.4 72 18 113/53 97 Nasal Cannula 2.0 01/17/17 23:39 71 01/17/17 20:00 96.1 73 18 112/48 99 Nasal Cannula 2.0 01/17/17 19:05 71 Intake and Output 01/18/17 01/19/17 19:00 07:00 Intake Total 300 ml Balance 300 ml Intake Oral 300 ml # Bowel Movements 1 Height (Feet): 5 Height (Inches): 6.00 Weight (Pounds): 250 Medications Current Medications Medications (Trade) Dose Ordered Sig/Pavel Route PRN Reason Start Time Stop Time Status Last Admin Dose Admin Acetaminophen (Tylenol) 650 mg Q4H PRN ORAL T>100.5 01/18/17 16:45 02/15/17 12:44 Albuterol/ Ipratropium (DuoNeb 0.5-3(2.5)mg/3ml) 3 ml Q4H PRN HHN Shortness of Breath 01/18/17 14:00 01/21/17 13:59 Cefepime HCl 1 gm/ Dextrose 55 ml @ 110 mls/hr Q24H IVPB 01/18/17 14:00 01/24/17 13:59 01/18/17 14:43 Dextrose (Dextrose 50%) STAT PRN IV Hypoglycemia 01/18/17 14:00 02/17/17 13:59 Furosemide (Lasix) 40 mg DAILY IV 01/19/17 09:00 02/17/17 08:59 Gabapentin (Neurontin) 300 mg THREE TIMES A DAY ORAL 01/18/17 18:00 02/15/17 12:59 Insulin Aspart (NovoLOG) BEFORE MEALS AND HS SUBQ 01/18/17 16:30 02/15/17 16:29 Lactulose (Cephulac) 20 gm THREE TIMES A DAY ORAL 01/18/17 18:00 02/15/17 12:59 Minocycline HCl (Minocin) 100 mg Q12HR ORAL 01/18/17 21:00 01/25/17 12:29 Morphine Sulfate (Morphine Sulfate) 2 mg Q4H PRN IVP Moderate Pain (Pain Scale 4-6) 01/18/17 14:00 01/23/17 13:59 Nitroglycerin (Ntg) 0.4 mg Q5MIN X 3 DOSES PRN SL Prn Chest Pain 01/18/17 13:45 02/15/17 12:59 Ondansetron HCl (Zofran) 4 mg Q6H PRN IVP Nausea & Vomiting 01/18/17 14:00 02/15/17 13:59 Pantoprazole (Protonix) 40 mg EVERY 12 HOURS ORAL 01/18/17 21:00 02/15/17 20:59 Polyethylene Glycol (Miralax) 17 gm DAILYPRN PRN ORAL Constipation 01/18/17 14:00 02/17/17 13:59 Rifaximin (Xifaxan) 550 mg EVERY 12 HOURS ORAL 01/18/17 21:00 01/23/17 20:59 Sertraline HCl (Zoloft) 50 mg DAILY ORAL 01/19/17 09:00 02/16/17 08:59 Temazepam (Restoril) 15 mg HSPRN PRN ORAL Insomnia 01/18/17 21:00 01/23/17 20:59 Assessment/Plan Status: not improved, unchanged Assessment/Plan encephalopathy -olanzapine 5mg qhs zoloft 50mg Oj Medel M.D. Jan 18, 2017 16:54
[2017-01-18 19:47] VITALS: BP 107/68
[2017-01-18] MEDS: OLANZapine 2.5mg tab ORAL SCH (20:42)
[2017-01-18] MEDS: Minocycline HCl 50mg cap ORAL SCH (20:43)
[2017-01-19] VITALS: BP 110/55
[2017-01-19 04:00] VITALS: BP 119/75
[2017-01-19] MEDS: NovoLOG Insulin Flexpen SUBQ SCH ×4 (06:15→21:16)
[2017-01-19 06:33] LABS: HEMATOCRIT 26.7 % (37.0-47.0); HEMOGLOBIN 8.2 G/DL (12.0-16.0); MEAN CORPUSCULAR VOLUME 106 FL (80-99); PLATELET COUNT 45 K/UL (150-450); RED BLOOD COUNT 2.52 M/UL (4.20-5.40); RED CELL DISTRIBUTION WIDTH 16.7 % (11.6-14.8); WHITE BLOOD COUNT 4.9 K/UL (4.8-10.8)
[2017-01-19 07:12] LABS: ANION GAP 7 (5-15); BLOOD UREA NITROGEN 27 mg/dL (7-23); CALCIUM 9.8 mg/dL (8.6-10.2); CARBON DIOXIDE 25 mEQ/L (20-30); CHLORIDE 125 mEQ/L (98-107); POTASSIUM 4.6 mEQ/L (3.4-4.9); SODIUM 157 mEQ/L (135-145)
--- NOTE | 2017-01-19 07:25 | General Progress Note ---
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 Objective Last 24 Hour Vital Signs Date Time Temp Pulse Resp B/P (MAP) Pulse Ox O2 Delivery O2 Flow Rate FiO2 01/19/17 04:00 96.9 78 20 119/75 99 Nasal Cannula 2.0 01/19/17 00:00 97.9 75 20 110/55 100 Nasal Cannula 3.0 01/18/17 21:17 93 20 Nasal Cannula 2.0 28 01/18/17 19:47 97.7 73 20 107/68 100 Nasal Cannula 2.0 01/18/17 15:51 98.0 76 21 114/52 97 Nasal Cannula 2.0 01/18/17 12:00 97.0 76 20 113/55 99 Nasal Cannula 2.0 01/18/17 12:00 71 01/18/17 08:00 71 01/18/17 08:00 96.7 75 18 115/55 100 Nasal Cannula 2.0 Laboratory Tests 01/19/17 05:15: White Blood Count 4.9, Red Blood Count 2.52L, Hemoglobin 8.2L, Hematocrit 26.7L , Mean Corpuscular Volume 106H, Mean Corpuscular Hemoglobin 32.5H, Mean Corpuscular Hemoglobin Concent 30.8L, Red Cell Distribution Width 16.7H, Platelet Count 45L, Mean Platelet Volume 9.8, Neutrophils (%) (Auto) , Lymphocytes (%) (Auto) , Monocytes (%) (Auto) , Eosinophils (%) (Auto) , Basophils (%) (Auto) , Neutrophils % (Manual) [Pending], Lymphocytes % (Manual) [Pending], Platelet Estimate [Pending], Platelet Morphology [Pending], Sodium Level 157H, Potassium Level 4.6, Chloride Level 125H, Carbon Dioxide Level 25, Anion Gap 7, Blood Urea Nitrogen 27H, Creatinine 2.0H, Estimat Glomerular Filtration Rate , Glucose Level 152H, Calcium Level 9.8, Troponin I [Pending], Pro-B-Type Natriuretic Peptide [Pending] Height (Feet): 5 Height (Inches): 6.00 Weight (Pounds): 250 Objective Obese WW NCAT supple CTA RRR soft ND NT (+) edema delirium KIERSTEN DAVIES Jan 19, 2017 07:25
[2017-01-19 08:00] VITALS: BP 106/58
--- NOTE | 2017-01-19 08:31 | Consultation ---
DATE OF CONSULTATION: 01/17/2017 INFECTIOUS DISEASES CONSULTATION CONSULTING PHYSICIAN: Eitan Stark M.D. REFERRING PHYSICIAN: Rl Tee M.D. Reason For Consultation: Evaluation of the patient for sepsis, probable urinary tract infection, and antibiotic management. History Of Present Illness: The patient is a 76-year-old female with multiple medical problems, who was admitted to this medical center due to altered level of consciousness. The patient had history of multiple urinary tract infection in the past. The patient has been started on IV antibiotics. Infectious Disease consultation has been requested for further evaluation of the patient and antibiotic management. PAST MEDICAL HISTORY: 1. History of sepsis. 2. History of urinary tract infection due to ESBL E. coli and Proteus mirabilis. 3. History of ureteral stone with mild hydronephrosis. 4. History of CKD. 5. Diabetes. 6. Obesity. 7. Cirrhosis. 8. Splenomegaly. 9. History of penicillin allergy, however, the patient 01:21 in the past. MEDICATIONS: IV vancomycin and cefepime. ALLERGIES: Penicillin. SOCIAL HISTORY: The patient lives in a care home. FAMILY HISTORY: Noncontributory. PHYSICAL EXAMINATION: Vital Signs: Temperature 96, blood pressure 121/72, pulse 86, and respiratory rate 18. HEENT: No pale conjunctivae. No icterus. NECK: No lymphadenopathy. CHEST: Clear. HEART: S1 and S2. ABDOMEN: Soft and obese. EXTREMITIES: No cyanosis. NEUROLOGIC: Awake and lethargic. Laboratory Data: UA shows too numerous to count white blood cells. Hemoglobin 6.9, 02:11 8.4, and platelets 68. BUN 22 and creatinine 1.6. ALT and AST unremarkable and alkaline phosphatase of 157. Urine culture is growing Gram-negative rods. 02:29 is negative. ASSESSMENT: 1. The patient is a 76-year-old female with multiple medical problems as listed above, who has been admitted to this medical center with altered level of consciousness. 2. Encephalopathy, most likely due to hepatic encephalopathy due to cirrhosis, however, superimposed sepsis could have a role at this time. 3. Probable urinary tract infection. 4. Pyuria. 5. Rule out bacteremia. PLAN: 1. Change antibiotics to Invanz 1 g daily day 04/26. 2. Monitor CBC. 3. Monitor BMP. 4. Monitor cultures (urine and blood). 5. Monitor the patient's labs. 6. We will recommend Urology evaluation for renal stone. 7. Based on the patient's clinical course and labs, we will do further recommendations. Thank you, Dr. Tee, for allowing me to participate in the care of this patient. I will follow the patient during this hospitalization. Eitan Stark M.D. DR: LONNIE JOB#: [id number] CC:
--- NOTE | 2017-01-19 08:31 | Consultation ---
DATE OF CONSULTATION: 01/17/2017 CARDIOLOGY CONSULTATION CONSULTING PHYSICIAN: Galdino Wallace M.D. REFERRING PHYSICIAN: Rl Tee M.D. ATTENDING PHYSICIAN: Rl Tee M.D. REASON FOR CONSULTATION: Hypertension and congestive heart failure. History Of Present Illness: The patient is a 76-year-old lady, resident of [facility], who was brought to the emergency room for increasing confusion. The patient also has history of congestive heart failure and hypertension. Cardiology consultation was obtained for further evaluation and management. PAST MEDICAL HISTORY: 1. Hypertension. 2. Type 2 diabetes. 3. Hyperlipidemia. 4. History of congestive heart failure with diastolic dysfunction. 5. Obstructive sleep apnea. 6. Gastroesophageal reflux disease. 7. Cardiomyopathy. 8. Liver cirrhosis. 9. Fatty liver. Past Surgical History: Includes history of PEG placement and subsequent removal. MEDICATIONS: As per reconciliation. ALLERGIES: She is allergic to penicillin. Social History: She lives in [facility]. Does not smoke or drink alcohol. Review Of Systems: Review of systems was performed and was negative other than what was mentioned in the history of present illness. PHYSICAL EXAMINATION: Vital Signs: Show blood pressure of 98/50, pulse 60, respirations 18, and she is afebrile. HEAD AND NECK: Shows no JVD. LUNGS: Clear. CARDIOVASCULAR: Shows regular S1 and S2 with no gallop or murmur. ABDOMEN: Soft and nontender and obese. EXTREMITIES: A 1+ pitting edema. Laboratory Studies: Her labs showed white count , hemoglobin 8.7, hematocrit 28.2, and platelets of 68,000. Sodium 149, potassium 4.9, BUN 23, creatinine 1.2, and glucose of 122. Troponin is negative. BNP is 1445. Her INR is 1.3. ASSESSMENT AND PLAN: 1. Congestive heart failure with a very high brain natriuretic peptide. Echocardiogram showed ejection fraction of 60% to 65% with diastolic dysfunction. Her EKG also showed normal sinus rhythm with low voltage QRS. I will start the patient on low-dose Lasix and watch the patient on telemetry. 2. Hypertension, currently off antihypertensive regimen except for Lasix. 3. Urinary tract infection. 4. Diabetes. 5. Hyperlipidemia. 6. Cirrhosis . 7. Anemia with hemoglobin of 8. Thank you very much, Dr. Tee, for allowing me to participate in the care of this patient. Please do not hesitate to contact me if you have any questions regarding my evaluation. The case was discussed with Dr. Jed Guthrie as well as nurse at the bedside. Galdino Wallace M.D. DR: USHA JOB#: [id number] CC:
[2017-01-19] MEDS: Lactulose 20gm/30ml UDC ORAL SCH (09:02)
[2017-01-19] MEDS: Sertraline 50mg tab ORAL SCH (09:03)
[2017-01-19] MEDS: Minocycline HCl 50mg cap ORAL SCH ×3 (09:03→21:14)
--- NOTE | 2017-01-19 10:12 | Diagnostic Imaging Report ---
Indication:Elevated Bun and Creatinine. Technique: Grayscale and duplex Doppler imaging of the kidneys performed. Comparison: None Findings: The study is nondiagnostic because of body habitus. The kidneys are not visualized adequately. Impression: Nondiagnostic exam
--- NOTE | 2017-01-19 11:08 | Internal Med Progress Note ---
Subjective Date of Service: Jan 19, 2017 Physician Name Katharina Pond Attending Physician Rl Tee MD Current Medications Medications (Trade) Dose Ordered Sig/Pavel Route PRN Reason Start Time Stop Time Status Last Admin Dose Admin Acetaminophen (Tylenol) 650 mg Q4H PRN ORAL T>100.5 01/18/17 16:45 02/15/17 12:44 Albuterol/ Ipratropium (DuoNeb 0.5-3(2.5)mg/3ml) 3 ml Q4H PRN HHN Shortness of Breath 01/18/17 14:00 01/21/17 13:59 Cefepime HCl 1 gm/ Dextrose 55 ml @ 110 mls/hr Q24H IVPB 01/18/17 14:00 01/24/17 13:59 01/18/17 14:43 Dextrose (Dextrose 50%) STAT PRN IV Hypoglycemia 01/18/17 14:00 02/17/17 13:59 Furosemide (Lasix) 40 mg DAILY IV 01/19/17 09:00 02/17/17 08:59 01/19/17 09:02 Gabapentin (Neurontin) 300 mg THREE TIMES A DAY ORAL 01/18/17 18:00 02/15/17 12:59 01/19/17 09:02 Insulin Aspart (NovoLOG) BEFORE MEALS AND HS SUBQ 01/18/17 16:30 02/15/17 16:29 01/19/17 06:15 Lactulose (Cephulac) 20 gm THREE TIMES A DAY ORAL 01/18/17 18:00 02/15/17 12:59 01/19/17 09:02 Minocycline HCl (Minocin) 100 mg Q12HR ORAL 01/18/17 21:00 01/25/17 12:29 01/19/17 09:03 Morphine Sulfate (Morphine Sulfate) 2 mg Q4H PRN IVP Moderate Pain (Pain Scale 4-6) 01/18/17 14:00 01/23/17 13:59 Nitroglycerin (Ntg) 0.4 mg Q5MIN X 3 DOSES PRN SL Prn Chest Pain 01/18/17 13:45 02/15/17 12:59 Olanzapine (ZyPREXA) 2.5 mg BEDTIME ORAL 01/18/17 21:00 02/17/17 20:59 01/18/17 20:42 Ondansetron HCl (Zofran) 4 mg Q6H PRN IVP Nausea & Vomiting 01/18/17 14:00 02/15/17 13:59 Pantoprazole (Protonix) 40 mg EVERY 12 HOURS ORAL 01/18/17 21:00 02/15/17 20:59 01/19/17 09:03 Polyethylene Glycol (Miralax) 17 gm DAILYPRN PRN ORAL Constipation 01/18/17 14:00 02/17/17 13:59 Rifaximin (Xifaxan) 550 mg EVERY 12 HOURS ORAL 01/18/17 21:00 01/23/17 20:59 01/19/17 09:03 Sertraline HCl (Zoloft) 50 mg DAILY ORAL 01/19/17 09:00 02/16/17 08:59 01/19/17 09:03 Temazepam (Restoril) 15 mg HSPRN PRN ORAL Insomnia 01/18/17 21:00 01/23/17 20:59 Allergies: Coded Allergies: PENICILLINS (Unverified Allergy, Unknown, 03/22/15) Uncoded Allergies: PENICILLIN (Allergy, Unknown, 01/16/17) ROS Limited/Unobtainable: Yes Subjective 76 YO F admitted with altered mental status. Now UTI and CHF. Cover for Int Med-Dr Tee Objective Last Vital Signs Date Time Temp Pulse Resp B/P (MAP) Pulse Ox O2 Delivery O2 Flow Rate FiO2 01/19/17 08:00 97.5 82 16 106/58 100 Nasal Cannula 4.0 01/18/17 21:17 28 Laboratory Tests Test 01/19/17 05:15 01/19/17 10:25 White Blood Count 4.9 K/UL (4.8-10.8) Red Blood Count 2.52 M/UL (4.20-5.40) L Hemoglobin 8.2 G/DL (12.0-16.0) L Hematocrit 26.7 % (37.0-47.0) L Mean Corpuscular Volume 106 FL (80-99) H Mean Corpuscular Hemoglobin 32.5 PG (27.0-31.0) H Mean Corpuscular Hemoglobin Concent 30.8 G/DL (32.0-36.0) L Red Cell Distribution Width 16.7 % (11.6-14.8) H Platelet Count 45 K/UL (150-450) L Mean Platelet Volume 9.8 FL (6.5-10.1) Neutrophils (%) (Auto) % (45.0-75.0) Lymphocytes (%) (Auto) % (20.0-45.0) Monocytes (%) (Auto) % (1.0-10.0) Eosinophils (%) (Auto) % (0.0-3.0) Basophils (%) (Auto) % (0.0-2.0) Differential Total Cells Counted 100 Neutrophils % (Manual) 83 % (45-75) H Lymphocytes % (Manual) 11 % (20-45) L Monocytes % (Manual) 5 % (1-10) Eosinophils % (Manual) 1 % (0-3) Basophils % (Manual) 0 % (0-2) Band Neutrophils 0 % (0-8) Platelet Estimate Decreased L Platelet Morphology Normal Hypochromasia 1+ Anisocytosis 1+ Macrocytosis 1+ Sodium Level 157 mEQ/L (135-145) H Potassium Level 4.6 mEQ/L (3.4-4.9) Chloride Level 125 mEQ/L (98-107) H Carbon Dioxide Level 25 mEQ/L (20-30) Anion Gap 7 (5-15) Blood Urea Nitrogen 27 mg/dL (7-23) H Creatinine 2.0 mg/dL (0.5-0.9) H Estimat Glomerular Filtration Rate mL/min (>60) Glucose Level 152 mg/dL (74-106) H Calcium Level 9.8 mg/dL (8.6-10.2) Troponin I < 0.30 ng/mL (<=0.30) Pro-B-Type Natriuretic Peptide 8896 pg/mL (0-450) H Ammonia 24 umol/L (11-51) Microbiology Date/Time Source Procedure Growth Status 01/16/17 12:25 Nasal Nares Influenza Types A,B Antigen (JOSE A) - Final Complete 01/17/17 13:43 Urine,Clean Catch Urine Culture - Final Acinetobacter Baumanii - Mdr Pseudomonas Aeruginosa Complete 01/16/17 18:31 Urine,Clean Catch Urine Culture - Final Pseudomonas Aeruginosa Acinetobacter Baumanii - Mdr Complete 01/16/17 11:55 Urine,Clean Catch Urine Culture - Final A.baumanii Complx - Mdr Pseudomonas Aeruginosa Complete Intake and Output 10/2/17 10/3/17 19:00 07:00 Intake Total 120 ml Balance 120 ml Intake Oral 120 ml Objective General Appearance: WD/WN, no apparent distress, moderate distress, obese EENT: PERRL/EOMI, normal ENT inspection Neck: non-tender, normal alignment, supple, normal inspection Cardiovascular: normal peripheral pulses, normal rate, regular rhythm, no gallop/murmur, no JVD Respiratory/Chest: chest wall non-tender, lungs clear, normal breath sounds, no respiratory distress, no accessory muscle use Abdomen: G-Tube; non tender, no organomegaly, no mass 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 Baumanii. See ID note. Continur Invanz per ID (2) CHF (congestive heart failure) Assessment & Plan: LVEF 60-65%. see cardiology note. (3) DM (diabetes mellitus) Assessment & Plan: Continue novolog sliding scale (4) Hypercholesteremia (5) HTN (hypertension) Assessment & Plan: Currently hypotensive. (6) Uncontrolled diabetes mellitus (7) Cirrhosis Assessment & Plan: see GI note. (8) Anemia (9) Altered mental status (10) Renal failure Assessment & Plan: Await nephrology consult-Dr Terrell Status: not improved KATHARINA POND Jan 19, 2017 11:08
--- NOTE | 2017-01-19 11:26 | Consultation ---
Consult Note Consult Note i was asked to eval for rising Cr 76YOF BIBEMS from [facility] again for evaluation of AMS. Just admitted 12/24-12 also for EMS, thought d/t sepsis from UTI. patient has multiple co- morbidities listed below. HPI is otherwise limited as patient is altered. Urine Cx showed: E Coli ESBL. She was given Carbapenem and tolerated well despite known PCN allergy per my review of ID Consult. Blood Cx showed "growth of coagulase-negative Staph, most likely contaminant." She had Hb 7.1 and was transfused. PMHx: anemia, encephalopathy, CKD, DM, obesity, cirrhosis, erosive gastritis, DM2, HLD, depression, delerium Allergies: PENICILLINS (Unverified Allergy, Unknown, 03/22/15) examined- poor historian data reviewed Assessment/Plan Acute on chronic renal failure- multifactorial CHF DM HTN Sepsis - Altered level of consciousness - ESBL (extended spectrum beta-lactamase) producing bacteria infection - Cardiomegaly - DM (diabetes mellitus) - HTN (hypertension) - UTI (urinary tract infection) - Anemia - High Cholestrol - COPD - YELENA - Fatty liver Plan: Optimize cardiac and pulmonary status 2D echo avoid nephrotoxics monitor renal parameters Urine studies per orders ANDERS MOLINA Jan 19, 2017 11:26
--- NOTE | 2017-01-19 11:30 | GI Progress Note ---
Assessment/Plan Problems: (1) Anemia ICD Codes: D64.9 - Anemia, unspecified SNOMED: 171493388 (2) Generalized weakness ICD Codes: R53.1 - Weakness SNOMED: 51655932 (3) Cirrhosis ICD Codes: K74.60 - Unspecified cirrhosis of liver SNOMED: 67876766 (4) Elevated CEA ICD Codes: R97.0 - Elevated carcinoembryonic antigen [CEA] SNOMED: 60981257, 189350517 (5) Elevated liver enzymes ICD Codes: R74.8 - Abnormal levels of other serum enzymes SNOMED: 850588696, 777269592 (6) Uncontrolled diabetes mellitus ICD Codes: E11.65 - Type 2 diabetes mellitus with hyperglycemia SNOMED: 260020071 Status: progressing Status Narrative Discussed with Dr. Palomo. Assessment/Plan POLST reviewed >> Full Treatment. Trial period of artificial feeding. elevated CEA >> 15.4 s/p EGD/colonoscopy 12/30/16 1. Erosive gastritis with bits of blood in the stomach. 2. A 5 mm gastric polyp, which was biopsied. 3. Duodenitis. 4. A 2 to 3 cm hiatal hernia. 5. No esophageal varices. 6. Normal colonoscopy up to the terminal ileum. - DURANT with cirrhosis cont ppi monitor H&H, prn transfusions elevated ammonia levels >> lactulose, add Xifaxan >> lower dose today resume diet, push PO aspiration precautions fu labs The patient was seen and examined at bedside and all new and available data was reviewed in the patients chart. I agree with the above findings, impression and plan. (Patient seen earlier today. Signature stamp does not reflect patient encounter time.). -Bar Palomo MD Subjective Subjective feels "okay" Objective Last 24 Hour Vital Signs Date Time Temp Pulse Resp B/P (MAP) Pulse Ox O2 Delivery O2 Flow Rate FiO2 01/19/17 08:00 97.5 82 16 106/58 100 Nasal Cannula 4.0 01/19/17 04:00 96.9 78 20 119/75 99 Nasal Cannula 2.0 01/19/17 00:00 97.9 75 20 110/55 100 Nasal Cannula 3.0 01/18/17 21:17 93 20 Nasal Cannula 2.0 28 01/18/17 19:47 97.7 73 20 107/68 100 Nasal Cannula 2.0 01/18/17 15:51 98.0 76 21 114/52 97 Nasal Cannula 2.0 01/18/17 12:00 97.0 76 20 113/55 99 Nasal Cannula 2.0 01/18/17 12:00 71 Intake and Output 01/19/17 01/20/17 19:00 07:00 Intake Total 120 ml Balance 120 ml Intake Oral 120 ml Laboratory Tests Test 01/19/17 05:15 01/19/17 10:25 White Blood Count 4.9 K/UL (4.8-10.8) Red Blood Count 2.52 M/UL (4.20-5.40) L Hemoglobin 8.2 G/DL (12.0-16.0) L Hematocrit 26.7 % (37.0-47.0) L Mean Corpuscular Volume 106 FL (80-99) H Mean Corpuscular Hemoglobin 32.5 PG (27.0-31.0) H Mean Corpuscular Hemoglobin Concent 30.8 G/DL (32.0-36.0) L Red Cell Distribution Width 16.7 % (11.6-14.8) H Platelet Count 45 K/UL (150-450) L Mean Platelet Volume 9.8 FL (6.5-10.1) Neutrophils (%) (Auto) % (45.0-75.0) Lymphocytes (%) (Auto) % (20.0-45.0) Monocytes (%) (Auto) % (1.0-10.0) Eosinophils (%) (Auto) % (0.0-3.0) Basophils (%) (Auto) % (0.0-2.0) Differential Total Cells Counted 100 Neutrophils % (Manual) 83 % (45-75) H Lymphocytes % (Manual) 11 % (20-45) L Monocytes % (Manual) 5 % (1-10) Eosinophils % (Manual) 1 % (0-3) Basophils % (Manual) 0 % (0-2) Band Neutrophils 0 % (0-8) Platelet Estimate Decreased L Platelet Morphology Normal Hypochromasia 1+ Anisocytosis 1+ Macrocytosis 1+ Sodium Level 157 mEQ/L (135-145) H Potassium Level 4.6 mEQ/L (3.4-4.9) Chloride Level 125 mEQ/L (98-107) H Carbon Dioxide Level 25 mEQ/L (20-30) Anion Gap 7 (5-15) Blood Urea Nitrogen 27 mg/dL (7-23) H Creatinine 2.0 mg/dL (0.5-0.9) H Estimat Glomerular Filtration Rate mL/min (>60) Glucose Level 152 mg/dL (74-106) H Calcium Level 9.8 mg/dL (8.6-10.2) Troponin I < 0.30 ng/mL (<=0.30) Pro-B-Type Natriuretic Peptide 8896 pg/mL (0-450) H Ammonia 24 umol/L (11-51) Height (Feet): 5 Height (Inches): 6.00 Weight (Pounds): 250 General Appearance: no apparent distress, alert - A&Ox2, obese Cardiovascular: normal rate Respiratory/Chest: normal breath sounds, no respiratory distress Abdominal Exam: normal bowel sounds, non tender, soft Extremities: normal range of motion Helena Reece N.P. Jan 19, 2017 11:30 BAR PALOMO Jan 22, 2017 14:43
--- NOTE | 2017-01-19 11:30 | GI Progress Note ---
Assessment/Plan Problems: (1) Anemia ICD Codes: D64.9 - Anemia, unspecified SNOMED: 733112662 (2) Generalized weakness ICD Codes: R53.1 - Weakness SNOMED: 58859224 (3) Cirrhosis ICD Codes: K74.60 - Unspecified cirrhosis of liver SNOMED: 76244034 (4) Elevated CEA ICD Codes: R97.0 - Elevated carcinoembryonic antigen [CEA] SNOMED: 52487679, 380470710 (5) Elevated liver enzymes ICD Codes: R74.8 - Abnormal levels of other serum enzymes SNOMED: 116468805, 884010913 (6) Uncontrolled diabetes mellitus ICD Codes: E11.65 - Type 2 diabetes mellitus with hyperglycemia SNOMED: 559386694 Status: progressing Status Narrative Discussed with Dr. Palomo. Assessment/Plan POLST reviewed >> Full Treatment. Trial period of artificial feeding. elevated CEA >> 15.4 s/p EGD/colonoscopy 12/30/16 1. Erosive gastritis with bits of blood in the stomach. 2. A 5 mm gastric polyp, which was biopsied. 3. Duodenitis. 4. A 2 to 3 cm hiatal hernia. 5. No esophageal varices. 6. Normal colonoscopy up to the terminal ileum. - DURANT with cirrhosis cont ppi monitor H&H, prn transfusions elevated ammonia levels >> lactulose, add Xifaxan >> lower dose today resume diet, push PO aspiration precautions fu labs The patient was seen and examined at bedside and all new and available data was reviewed in the patients chart. I agree with the above findings, impression and plan. (Patient seen earlier today. Signature stamp does not reflect patient encounter time.). -Bar Palomo MD Subjective Subjective feels "okay" Objective Last 24 Hour Vital Signs Date Time Temp Pulse Resp B/P (MAP) Pulse Ox O2 Delivery O2 Flow Rate FiO2 01/19/17 08:00 97.5 82 16 106/58 100 Nasal Cannula 4.0 01/19/17 04:00 96.9 78 20 119/75 99 Nasal Cannula 2.0 01/19/17 00:00 97.9 75 20 110/55 100 Nasal Cannula 3.0 01/18/17 21:17 93 20 Nasal Cannula 2.0 28 01/18/17 19:47 97.7 73 20 107/68 100 Nasal Cannula 2.0 01/18/17 15:51 98.0 76 21 114/52 97 Nasal Cannula 2.0 01/18/17 12:00 97.0 76 20 113/55 99 Nasal Cannula 2.0 01/18/17 12:00 71 Intake and Output 01/19/17 01/20/17 19:00 07:00 Intake Total 120 ml Balance 120 ml Intake Oral 120 ml Laboratory Tests Test 01/19/17 05:15 01/19/17 10:25 White Blood Count 4.9 K/UL (4.8-10.8) Red Blood Count 2.52 M/UL (4.20-5.40) L Hemoglobin 8.2 G/DL (12.0-16.0) L Hematocrit 26.7 % (37.0-47.0) L Mean Corpuscular Volume 106 FL (80-99) H Mean Corpuscular Hemoglobin 32.5 PG (27.0-31.0) H Mean Corpuscular Hemoglobin Concent 30.8 G/DL (32.0-36.0) L Red Cell Distribution Width 16.7 % (11.6-14.8) H Platelet Count 45 K/UL (150-450) L Mean Platelet Volume 9.8 FL (6.5-10.1) Neutrophils (%) (Auto) % (45.0-75.0) Lymphocytes (%) (Auto) % (20.0-45.0) Monocytes (%) (Auto) % (1.0-10.0) Eosinophils (%) (Auto) % (0.0-3.0) Basophils (%) (Auto) % (0.0-2.0) Differential Total Cells Counted 100 Neutrophils % (Manual) 83 % (45-75) H Lymphocytes % (Manual) 11 % (20-45) L Monocytes % (Manual) 5 % (1-10) Eosinophils % (Manual) 1 % (0-3) Basophils % (Manual) 0 % (0-2) Band Neutrophils 0 % (0-8) Platelet Estimate Decreased L Platelet Morphology Normal Hypochromasia 1+ Anisocytosis 1+ Macrocytosis 1+ Sodium Level 157 mEQ/L (135-145) H Potassium Level 4.6 mEQ/L (3.4-4.9) Chloride Level 125 mEQ/L (98-107) H Carbon Dioxide Level 25 mEQ/L (20-30) Anion Gap 7 (5-15) Blood Urea Nitrogen 27 mg/dL (7-23) H Creatinine 2.0 mg/dL (0.5-0.9) H Estimat Glomerular Filtration Rate mL/min (>60) Glucose Level 152 mg/dL (74-106) H Calcium Level 9.8 mg/dL (8.6-10.2) Troponin I < 0.30 ng/mL (<=0.30) Pro-B-Type Natriuretic Peptide 8896 pg/mL (0-450) H Ammonia 24 umol/L (11-51) Height (Feet): 5 Height (Inches): 6.00 Weight (Pounds): 250 General Appearance: no apparent distress, alert - A&Ox2, obese Cardiovascular: normal rate Respiratory/Chest: normal breath sounds, no respiratory distress Abdominal Exam: normal bowel sounds, non tender, soft Extremities: normal range of motion Helena Reece N.P. Jan 19, 2017 11:30 BAR PALOMO Jan 22, 2017 14:43
--- NOTE | 2017-01-19 11:30 | GI Progress Note ---
Assessment/Plan Problems: (1) Anemia ICD Codes: D64.9 - Anemia, unspecified SNOMED: 186617420 (2) Generalized weakness ICD Codes: R53.1 - Weakness SNOMED: 74368342 (3) Cirrhosis ICD Codes: K74.60 - Unspecified cirrhosis of liver SNOMED: 11903868 (4) Elevated CEA ICD Codes: R97.0 - Elevated carcinoembryonic antigen [CEA] SNOMED: 75820401, 174670874 (5) Elevated liver enzymes ICD Codes: R74.8 - Abnormal levels of other serum enzymes SNOMED: 161890071, 709360956 (6) Uncontrolled diabetes mellitus ICD Codes: E11.65 - Type 2 diabetes mellitus with hyperglycemia SNOMED: 020120456 Status: progressing Status Narrative Discussed with Dr. Palomo. Assessment/Plan POLST reviewed >> Full Treatment. Trial period of artificial feeding. elevated CEA >> 15.4 s/p EGD/colonoscopy 12/30/16 1. Erosive gastritis with bits of blood in the stomach. 2. A 5 mm gastric polyp, which was biopsied. 3. Duodenitis. 4. A 2 to 3 cm hiatal hernia. 5. No esophageal varices. 6. Normal colonoscopy up to the terminal ileum. - DURANT with cirrhosis cont ppi monitor H&H, prn transfusions elevated ammonia levels >> lactulose, add Xifaxan >> lower dose today resume diet, push PO aspiration precautions fu labs The patient was seen and examined at bedside and all new and available data was reviewed in the patients chart. I agree with the above findings, impression and plan. (Patient seen earlier today. Signature stamp does not reflect patient encounter time.). -Bar Palomo MD Subjective Subjective feels "okay" Objective Last 24 Hour Vital Signs Date Time Temp Pulse Resp B/P (MAP) Pulse Ox O2 Delivery O2 Flow Rate FiO2 01/19/17 08:00 97.5 82 16 106/58 100 Nasal Cannula 4.0 01/19/17 04:00 96.9 78 20 119/75 99 Nasal Cannula 2.0 01/19/17 00:00 97.9 75 20 110/55 100 Nasal Cannula 3.0 01/18/17 21:17 93 20 Nasal Cannula 2.0 28 01/18/17 19:47 97.7 73 20 107/68 100 Nasal Cannula 2.0 01/18/17 15:51 98.0 76 21 114/52 97 Nasal Cannula 2.0 01/18/17 12:00 97.0 76 20 113/55 99 Nasal Cannula 2.0 01/18/17 12:00 71 Intake and Output 01/19/17 01/20/17 19:00 07:00 Intake Total 120 ml Balance 120 ml Intake Oral 120 ml Laboratory Tests Test 01/19/17 05:15 01/19/17 10:25 White Blood Count 4.9 K/UL (4.8-10.8) Red Blood Count 2.52 M/UL (4.20-5.40) L Hemoglobin 8.2 G/DL (12.0-16.0) L Hematocrit 26.7 % (37.0-47.0) L Mean Corpuscular Volume 106 FL (80-99) H Mean Corpuscular Hemoglobin 32.5 PG (27.0-31.0) H Mean Corpuscular Hemoglobin Concent 30.8 G/DL (32.0-36.0) L Red Cell Distribution Width 16.7 % (11.6-14.8) H Platelet Count 45 K/UL (150-450) L Mean Platelet Volume 9.8 FL (6.5-10.1) Neutrophils (%) (Auto) % (45.0-75.0) Lymphocytes (%) (Auto) % (20.0-45.0) Monocytes (%) (Auto) % (1.0-10.0) Eosinophils (%) (Auto) % (0.0-3.0) Basophils (%) (Auto) % (0.0-2.0) Differential Total Cells Counted 100 Neutrophils % (Manual) 83 % (45-75) H Lymphocytes % (Manual) 11 % (20-45) L Monocytes % (Manual) 5 % (1-10) Eosinophils % (Manual) 1 % (0-3) Basophils % (Manual) 0 % (0-2) Band Neutrophils 0 % (0-8) Platelet Estimate Decreased L Platelet Morphology Normal Hypochromasia 1+ Anisocytosis 1+ Macrocytosis 1+ Sodium Level 157 mEQ/L (135-145) H Potassium Level 4.6 mEQ/L (3.4-4.9) Chloride Level 125 mEQ/L (98-107) H Carbon Dioxide Level 25 mEQ/L (20-30) Anion Gap 7 (5-15) Blood Urea Nitrogen 27 mg/dL (7-23) H Creatinine 2.0 mg/dL (0.5-0.9) H Estimat Glomerular Filtration Rate mL/min (>60) Glucose Level 152 mg/dL (74-106) H Calcium Level 9.8 mg/dL (8.6-10.2) Troponin I < 0.30 ng/mL (<=0.30) Pro-B-Type Natriuretic Peptide 8896 pg/mL (0-450) H Ammonia 24 umol/L (11-51) Height (Feet): 5 Height (Inches): 6.00 Weight (Pounds): 250 General Appearance: no apparent distress, alert - A&Ox2, obese Cardiovascular: normal rate Respiratory/Chest: normal breath sounds, no respiratory distress Abdominal Exam: normal bowel sounds, non tender, soft Extremities: normal range of motion Helena Reece N.P. Jan 19, 2017 11:30 BAR PALOMO Jan 22, 2017 14:43
[2017-01-19 12:00] VITALS: BP 96/50
--- NOTE | 2017-01-19 12:46 | Wound Care Consultation ---
Wound Assessment Wound Assessment #1: Wound Number: 1 Wound Present on Admission: Yes New Wound: No Status Change of Wound: No Wound Location Body Site Modif: mid Wound Location Body Site: sacral Wound Type: pressure ulcer Callie Test: Does not Callie Pressure Ulcer Stage: II - scattered Wound Thickness: Partial Thickness Wound Length: 5.5 Wound Width: 5.5 Wound Depth: less than 0.1 Percent of Wound [place]/Red: 100 Wound Drainage Description: Serosanguineous Wound Drainage Amount: Scant Wound Drainage Odor: None/Absent Tissue Surrounding Wound: Erythemic Wound General Appearance: Reddened Wound Assessment #2: Wound Number: 2 Wound Present on Admission: Yes New Wound: No Status Change of Wound: No Wound Location Body Site: perineal area Wound Type: chemical burn Callie Test: Does not Callie Percent of Wound [place]/Red: 100 Wound Drainage Amount: None Wound Drainage Odor: None/Absent Tissue Surrounding Wound: Erythemic Wound General Appearance: Reddened Wound Assessment #3: Wound Number: 3 Wound Present on Admission: Yes New Wound: No Status Change of Wound: No Wound Location Body Site Modif: left, posterior Wound Location Body Site: thigh Wound Type: other - open blister Callie Test: Does not Callie Pressure Ulcer Stage: II Wound Thickness: Partial Thickness Wound Length: 4.0 Wound Width: 0.2 Wound Depth: less than 0.1 Percent of Wound [place]/Red: 100 Wound Drainage Description: Serosanguineous Wound Drainage Amount: Scant Wound Drainage Odor: None/Absent Tissue Surrounding Wound: Erythemic Wound General Appearance: Reddened, Draining Wound Assessment #4: Wound Number: 4 Wound Present on Admission: Yes New Wound: No Status Change of Wound: No Wound Location Body Site: abdominal fold - and breast folds Wound Type: rash Callie Test: Does not Callie Percent of Wound [place]/Red: 100 Wound Drainage Amount: None Wound Drainage Odor: None/Absent Tissue Surrounding Wound: Erythemic Wound General Appearance: Reddened Wound Assessment #5: Wound Number: 5 Wound Present on Admission: Yes New Wound: No Status Change of Wound: No Wound Location Body Site Modif: left Wound Location Body Site: ischial tuberosity Wound Type: pressure ulcer Callie Test: Does not Callie Pressure Ulcer Stage: I Wound Length: 4.0 Wound Width: 4.0 Percent of Wound [place]/Red: 100 Wound Drainage Amount: None Wound Drainage Odor: None/Absent Tissue Surrounding Wound: Erythemic Wound General Appearance: Reddened Wound Assessment #6: Wound Number: 6 Wound Present on Admission: Yes New Wound: No Status Change of Wound: No Wound Location Body Site Modif: right Wound Location Body Site: ischial tuberosity Wound Type: pressure ulcer Callie Test: Does not Callie Pressure Ulcer Stage: I Wound Length: 4.0 Wound Width: 4.0 Percent of Wound [place]/Red: 100 Wound Drainage Amount: None Wound Drainage Odor: None/Absent Tissue Surrounding Wound: Erythemic Wound General Appearance: Reddened Wound Comment #1 Sacral scattered stage II pressure ulcer #2 Left posterior upper thigh stage II pressure ulcer #3 Left ischial tuberosity stage I pressure ulcer #4 Right ischial tuberosity stage I pressure ulcer #5 Chemical burn on perineal area #6 Chemical burn on abdominal folds and breast folds Recommendation -Local wound care per protocol -Keep clean and dry -Optimize nutrition -Offload both heels -Low air loss SPR mattress -Heel protector on both heels -Turn and reposition -Assess and f/u accordingly for any changes FAIZAN CRUZ RN Jan 19, 2017 12:46
[2017-01-19] MEDS ORDERED: Vancomycin 1.5 GM/D5W 250ML IVPB ONE (13:00)
--- NOTE | 2017-01-19 13:05 | Infectious Diseases Prog Note ---
Assessment/Plan Assessment/Plan Assesment: Encephalopathy- possibly multifactorial- hepatic encephalopathy, infection -CXR : Cardiomegaly with evidence of congestive heart failure Probable MDR UTI, pyuria -u/a 01/16 WBC too many to count,nit neg ,leuk est +3; UCx x3 grew >100K MDR A.baumani complex (S. tigecycline/Minocycline, Polymixin B/Colistin), >100K PsA (S. Cefepime, Zosyn; R Cipro/Levo) -renal u/s: Nondiagnostic exam 04/23 GPC bacteremia- r/o contaminat vs real -01/16 04/23 BCx GPC in clusters RAMYA on CKD, worsening Afebrile, no leukocytosis Cirrhosis Anemia & thrombocytopenia DM type 2 Morbid obesity PLAN: -Continue Cefepime #3 for PsA and Minocycline for MDR ABC #2 , will treat for 5- 7 days for UTI -Re-initiate IV Vancomycin pending ID GPC and repeat Bcx -s/p 3d IV vanco 01/18 -Repeat 2 sets of Bcx -Monitor CBC/BMP, temperatures - Urology evaluation for renal stone. Discussed with RN Subjective Allergies: Coded Allergies: PENICILLINS (Unverified Allergy, Unknown, 03/22/15) Uncoded Allergies: PENICILLIN (Allergy, Unknown, 01/16/17) Subjective afebrile no leukocytosis now bacteremic GPC 04/23 worsenign Cr Objective Vital Signs Last 24 Hour Vital Signs Date Time Temp Pulse Resp B/P (MAP) Pulse Ox O2 Delivery O2 Flow Rate FiO2 01/19/17 12:00 97.9 77 17 96/50 100 Nasal Cannula 4.0 01/19/17 08:00 97.5 82 16 106/58 100 Nasal Cannula 4.0 01/19/17 04:00 96.9 78 20 119/75 99 Nasal Cannula 2.0 01/19/17 00:00 97.9 75 20 110/55 100 Nasal Cannula 3.0 01/18/17 21:17 93 20 Nasal Cannula 2.0 28 01/18/17 19:47 97.7 73 20 107/68 100 Nasal Cannula 2.0 01/18/17 15:51 98.0 76 21 114/52 97 Nasal Cannula 2.0 Height (Feet): 5 Height (Inches): 6.00 Weight (Pounds): 250 Objective HEENT: No pale conjunctivae. No icterus. NECK: No lymphadenopathy. CHEST: Clear. HEART: S1 and S2. ABDOMEN: Soft and obese. EXTREMITIES: No cyanosis. NEUROLOGIC: Awake and lethargic. Microbiology Date/Time Source Procedure Growth Status 01/17/17 13:43 Urine,Clean Catch Urine Culture - Final Acinetobacter Baumanii - Mdr Pseudomonas Aeruginosa Complete 01/16/17 18:31 Urine,Clean Catch Urine Culture - Final Pseudomonas Aeruginosa Acinetobacter Baumanii - Mdr Complete Laboratory Tests Test 01/19/17 05:15 01/19/17 10:25 White Blood Count 4.9 K/UL (4.8-10.8) Red Blood Count 2.52 M/UL (4.20-5.40) L Hemoglobin 8.2 G/DL (12.0-16.0) L Hematocrit 26.7 % (37.0-47.0) L Mean Corpuscular Volume 106 FL (80-99) H Mean Corpuscular Hemoglobin 32.5 PG (27.0-31.0) H Mean Corpuscular Hemoglobin Concent 30.8 G/DL (32.0-36.0) L Red Cell Distribution Width 16.7 % (11.6-14.8) H Platelet Count 45 K/UL (150-450) L Mean Platelet Volume 9.8 FL (6.5-10.1) Neutrophils (%) (Auto) % (45.0-75.0) Lymphocytes (%) (Auto) % (20.0-45.0) Monocytes (%) (Auto) % (1.0-10.0) Eosinophils (%) (Auto) % (0.0-3.0) Basophils (%) (Auto) % (0.0-2.0) Differential Total Cells Counted 100 Neutrophils % (Manual) 83 % (45-75) H Lymphocytes % (Manual) 11 % (20-45) L Monocytes % (Manual) 5 % (1-10) Eosinophils % (Manual) 1 % (0-3) Basophils % (Manual) 0 % (0-2) Band Neutrophils 0 % (0-8) Platelet Estimate Decreased L Platelet Morphology Normal Hypochromasia 1+ Anisocytosis 1+ Macrocytosis 1+ Sodium Level 157 mEQ/L (135-145) H Potassium Level 4.6 mEQ/L (3.4-4.9) Chloride Level 125 mEQ/L (98-107) H Carbon Dioxide Level 25 mEQ/L (20-30) Anion Gap 7 (5-15) Blood Urea Nitrogen 27 mg/dL (7-23) H Creatinine 2.0 mg/dL (0.5-0.9) H Estimat Glomerular Filtration Rate mL/min (>60) Glucose Level 152 mg/dL (74-106) H Calcium Level 9.8 mg/dL (8.6-10.2) Troponin I < 0.30 ng/mL (<=0.30) Pro-B-Type Natriuretic Peptide 8896 pg/mL (0-450) H Ammonia 24 umol/L (11-51) Current Medications Medications (Trade) Dose Ordered Sig/Pavel Route PRN Reason Start Time Stop Time Status Last Admin Dose Admin Acetaminophen (Tylenol) 650 mg Q4H PRN ORAL T>100.5 01/18/17 16:45 02/15/17 12:44 Albuterol/ Ipratropium (DuoNeb 0.5-3(2.5)mg/3ml) 3 ml Q4H PRN HHN Shortness of Breath 01/18/17 14:00 01/21/17 13:59 Cefepime HCl 1 gm/ Dextrose 55 ml @ 110 mls/hr Q24H IVPB 01/18/17 14:00 01/24/17 13:59 01/18/17 14:43 Clotrimazole (Lotrimin) 1 applic EVERY 12 HOURS TOPIC 01/19/17 14:00 02/18/17 13:59 Dextrose (Dextrose 50%) STAT PRN IV Hypoglycemia 01/18/17 14:00 02/17/17 13:59 Furosemide (Lasix) 40 mg DAILY IV 01/19/17 09:00 02/17/17 08:59 01/19/17 09:02 Gabapentin (Neurontin) 300 mg THREE TIMES A DAY ORAL 01/19/17 13:00 02/18/17 12:59 Insulin Aspart (NovoLOG) BEFORE MEALS AND HS SUBQ 01/18/17 16:30 02/15/17 16:29 01/19/17 11:41 Lactulose (Cephulac) 10 gm THREE TIMES A DAY ORAL 01/19/17 13:00 02/18/17 12:59 Minocycline HCl (Minocin) 100 mg Q12HR ORAL 01/18/17 21:00 01/25/17 12:29 01/19/17 09:03 Morphine Sulfate (Morphine Sulfate) 2 mg Q4H PRN IVP Moderate Pain (Pain Scale 4-6) 01/18/17 14:00 01/23/17 13:59 Nitroglycerin (Ntg) 0.4 mg Q5MIN X 3 DOSES PRN SL Prn Chest Pain 01/18/17 13:45 02/15/17 12:59 Olanzapine (ZyPREXA) 2.5 mg BEDTIME ORAL 01/18/17 21:00 02/17/17 20:59 01/18/17 20:42 Ondansetron HCl (Zofran) 4 mg Q6H PRN IVP Nausea & Vomiting 01/18/17 14:00 02/15/17 13:59 Pantoprazole (Protonix) 40 mg EVERY 12 HOURS ORAL 01/19/17 21:00 02/18/17 20:59 Polyethylene Glycol (Miralax) 17 gm DAILYPRN PRN ORAL Constipation 01/18/17 14:00 02/17/17 13:59 Rifaximin (Xifaxan) 550 mg EVERY 12 HOURS ORAL 01/18/17 21:00 01/23/17 20:59 01/19/17 09:03 Sertraline HCl (Zoloft) 50 mg DAILY ORAL 01/19/17 09:00 02/16/17 08:59 01/19/17 09:03 Temazepam (Restoril) 15 mg HSPRN PRN ORAL Insomnia 01/18/17 21:00 01/23/17 20:59 Vancomycin HCl (Vanco rx to dose) 1 ea DAILY PRN MISC Per rx protocol 01/19/17 11:45 02/18/17 11:44 Vancomycin HCl/ Dextrose 250 ml @ 125 mls/hr ONCE ONCE IVPB 01/19/17 13:00 01/19/17 14:59 Nereyda Monroe M.D. Jan 19, 2017 13:05
[2017-01-19] MEDS: Lactulose 10gm/15ml UDC ORAL SCH ×2 (13:44→17:44)
--- NOTE | 2017-01-19 14:13 | Cardiac Electrophysiology PN ---
Assessment/Plan Assessment/Plan 1. Congestive heart failure with a very high brain natriuretic peptide. Echocardiogram showed ejection fraction of 60% to 65% with diastolic dysfunction. Her EKG also showed normal sinus rhythm with low voltage QRS. DC Lasix for hypernatremia 2. Hypertension 3. Urinary tract infection. 4. Diabetes. 5. Hyperlipidemia. 6. Cirrhosis 7. Anemia with hemoglobin of 8. 8. Hypernatremia. DC Lasix. CHAZ RN Subjective Subjective On med surge. Comfortable iN NAD. Scheduled for PICC line placement Objective Last 24 Hour Vital Signs Date Time Temp Pulse Resp B/P (MAP) Pulse Ox O2 Delivery O2 Flow Rate FiO2 01/19/17 12:00 97.9 77 17 96/50 100 Nasal Cannula 4.0 01/19/17 08:00 97.5 82 16 106/58 100 Nasal Cannula 4.0 01/19/17 04:00 96.9 78 20 119/75 99 Nasal Cannula 2.0 01/19/17 00:00 97.9 75 20 110/55 100 Nasal Cannula 3.0 01/18/17 21:17 93 20 Nasal Cannula 2.0 28 01/18/17 19:47 97.7 73 20 107/68 100 Nasal Cannula 2.0 01/18/17 15:51 98.0 76 21 114/52 97 Nasal Cannula 2.0 Intake and Output 01/19/17 01/20/17 19:00 07:00 Intake Total 120 ml Balance 120 ml Intake Oral 120 ml Laboratory Tests Test 01/19/17 05:15 01/19/17 10:25 White Blood Count 4.9 K/UL (4.8-10.8) Red Blood Count 2.52 M/UL (4.20-5.40) L Hemoglobin 8.2 G/DL (12.0-16.0) L Hematocrit 26.7 % (37.0-47.0) L Mean Corpuscular Volume 106 FL (80-99) H Mean Corpuscular Hemoglobin 32.5 PG (27.0-31.0) H Mean Corpuscular Hemoglobin Concent 30.8 G/DL (32.0-36.0) L Red Cell Distribution Width 16.7 % (11.6-14.8) H Platelet Count 45 K/UL (150-450) L Mean Platelet Volume 9.8 FL (6.5-10.1) Neutrophils (%) (Auto) % (45.0-75.0) Lymphocytes (%) (Auto) % (20.0-45.0) Monocytes (%) (Auto) % (1.0-10.0) Eosinophils (%) (Auto) % (0.0-3.0) Basophils (%) (Auto) % (0.0-2.0) Differential Total Cells Counted 100 Neutrophils % (Manual) 83 % (45-75) H Lymphocytes % (Manual) 11 % (20-45) L Monocytes % (Manual) 5 % (1-10) Eosinophils % (Manual) 1 % (0-3) Basophils % (Manual) 0 % (0-2) Band Neutrophils 0 % (0-8) Platelet Estimate Decreased L Platelet Morphology Normal Hypochromasia 1+ Anisocytosis 1+ Macrocytosis 1+ Sodium Level 157 mEQ/L (135-145) H Potassium Level 4.6 mEQ/L (3.4-4.9) Chloride Level 125 mEQ/L (98-107) H Carbon Dioxide Level 25 mEQ/L (20-30) Anion Gap 7 (5-15) Blood Urea Nitrogen 27 mg/dL (7-23) H Creatinine 2.0 mg/dL (0.5-0.9) H Estimat Glomerular Filtration Rate mL/min (>60) Glucose Level 152 mg/dL (74-106) H Calcium Level 9.8 mg/dL (8.6-10.2) Troponin I < 0.30 ng/mL (<=0.30) Pro-B-Type Natriuretic Peptide 8896 pg/mL (0-450) H Ammonia 24 umol/L (11-51) Microbiology Date/Time Source Procedure Growth Status 01/17/17 13:43 Urine,Clean Catch Urine Culture - Final Acinetobacter Baumanii - Mdr Pseudomonas Aeruginosa Complete 01/16/17 18:31 Urine,Clean Catch Urine Culture - Final Pseudomonas Aeruginosa Acinetobacter Baumanii - Mdr Complete Objective HEAD AND NECK: Shows no JVD. LUNGS: Clear. CARDIOVASCULAR: Shows regular S1 and S2 with no gallop or murmur. ABDOMEN: Soft and nontender and obese. EXTREMITIES: A 1+ pitting edema. DEAN SHAW Jan 19, 2017 14:13
[2017-01-19 16:00] VITALS: BP 91/44
[2017-01-19] MEDS: Cefepime HCl 1 GM in D5W 55 ML IVPB SCH (16:16)
--- NOTE | 2017-01-19 18:34 | Pulmonology Progress Note ---
Assessment/Plan Problems: (1) Altered level of consciousness (2) ESBL (extended spectrum beta-lactamase) producing bacteria infection (3) Cardiomegaly (4) DM (diabetes mellitus) (5) HTN (hypertension) (6) UTI (urinary tract infection) Assessment/Plan no new changes h/h stable lactulose check cultures check sensitivity eating 25% of her food med/surg Subjective ROS Limited/Unobtainable: No Constitutional: Reports: no symptoms HEENT: Repors: no symptoms Respiratory: Reports: no symptoms Allergies: Coded Allergies: PENICILLINS (Unverified Allergy, Unknown, 03/22/15) Uncoded Allergies: PENICILLIN (Allergy, Unknown, 01/16/17) Objective Last 24 Hour Vital Signs Date Time Temp Pulse Resp B/P (MAP) Pulse Ox O2 Delivery O2 Flow Rate FiO2 01/19/17 16:00 98.2 69 20 91/44 100 Nasal Cannula 2.0 01/19/17 12:00 97.9 77 17 96/50 100 Nasal Cannula 4.0 01/19/17 08:00 97.5 82 16 106/58 100 Nasal Cannula 4.0 01/19/17 04:00 96.9 78 20 119/75 99 Nasal Cannula 2.0 01/19/17 00:00 97.9 75 20 110/55 100 Nasal Cannula 3.0 01/18/17 21:17 93 20 Nasal Cannula 2.0 28 01/18/17 19:47 97.7 73 20 107/68 100 Nasal Cannula 2.0 Intake and Output 01/19/17 01/20/17 19:00 07:00 Intake Total 245 ml Balance 245 ml Intake Oral 120 ml IV Total 125 ml Objective General Appearance: WD/WN HEENT: normocephalic Breasts: no masses Cardiovascular: normal peripheral pulses Abdomen: normal bowel sounds, no organomegaly Genitourinary: normal external genitalia 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 Microbiology Date/Time Source Procedure Growth Status 01/17/17 13:43 Urine,Clean Catch Urine Culture - Final Acinetobacter Baumanii - Mdr Pseudomonas Aeruginosa Complete Laboratory Tests 01/19/17 05:15: White Blood Count 4.9, Red Blood Count 2.52L, Hemoglobin 8.2L, Hematocrit 26.7L , Mean Corpuscular Volume 106H, Mean Corpuscular Hemoglobin 32.5H, Mean Corpuscular Hemoglobin Concent 30.8L, Red Cell Distribution Width 16.7H, Platelet Count 45L, Mean Platelet Volume 9.8, Neutrophils (%) (Auto) , Lymphocytes (%) (Auto) , Monocytes (%) (Auto) , Eosinophils (%) (Auto) , Basophils (%) (Auto) , Differential Total Cells Counted 100, Neutrophils % ( Manual) 83H, Lymphocytes % (Manual) 11L, Monocytes % (Manual) 5, Eosinophils % ( Manual) 1, Basophils % (Manual) 0, Band Neutrophils 0, Platelet Estimate DecreasedL, Platelet Morphology Normal, Hypochromasia 1+, Anisocytosis 1+, Macrocytosis 1+, Sodium Level 157H, Potassium Level 4.6, Chloride Level 125H, Carbon Dioxide Level 25, Anion Gap 7, Blood Urea Nitrogen 27H, Creatinine 2.0H, Estimat Glomerular Filtration Rate , Glucose Level 152H, Calcium Level 9.8, Troponin I < 0.30, Pro-B-Type Natriuretic Peptide 8896H 01/19/17 10:25: Ammonia 24 Current Medications Medications (Trade) Dose Ordered Sig/Pavel Route PRN Reason Start Time Stop Time Status Last Admin Dose Admin Acetaminophen (Tylenol) 650 mg Q4H PRN ORAL T>100.5 01/18/17 16:45 02/15/17 12:44 Albuterol/ Ipratropium (DuoNeb 0.5-3(2.5)mg/3ml) 3 ml Q4H PRN HHN Shortness of Breath 01/18/17 14:00 01/21/17 13:59 Cefepime HCl 1 gm/ Dextrose 55 ml @ 110 mls/hr Q24H IVPB 01/18/17 14:00 01/24/17 13:59 01/19/17 16:16 Clotrimazole (Lotrimin) 1 applic EVERY 12 HOURS TOPIC 01/19/17 14:00 02/18/17 13:59 01/19/17 16:15 Dextrose (Dextrose 50%) STAT PRN IV Hypoglycemia 01/18/17 14:00 02/17/17 13:59 Gabapentin (Neurontin) 300 mg THREE TIMES A DAY ORAL 01/19/17 13:00 02/18/17 12:59 01/19/17 17:44 Insulin Aspart (NovoLOG) BEFORE MEALS AND HS SUBQ 01/18/17 16:30 02/15/17 16:29 01/19/17 17:16 Lactulose (Cephulac) 10 gm THREE TIMES A DAY ORAL 01/19/17 13:00 02/18/17 12:59 01/19/17 17:44 Minocycline HCl (Minocin) 100 mg Q12HR ORAL 01/18/17 21:00 01/25/17 12:29 01/19/17 09:03 Morphine Sulfate (Morphine Sulfate) 2 mg Q4H PRN IVP Moderate Pain (Pain Scale 4-6) 01/18/17 14:00 01/23/17 13:59 Nitroglycerin (Ntg) 0.4 mg Q5MIN X 3 DOSES PRN SL Prn Chest Pain 01/18/17 13:45 02/15/17 12:59 Olanzapine (ZyPREXA) 2.5 mg BEDTIME ORAL 01/18/17 21:00 02/17/17 20:59 01/18/17 20:42 Ondansetron HCl (Zofran) 4 mg Q6H PRN IVP Nausea & Vomiting 01/18/17 14:00 02/15/17 13:59 Pantoprazole (Protonix) 40 mg EVERY 12 HOURS ORAL 01/19/17 21:00 02/18/17 20:59 Polyethylene Glycol (Miralax) 17 gm DAILYPRN PRN ORAL Constipation 01/18/17 14:00 02/17/17 13:59 Rifaximin (Xifaxan) 550 mg EVERY 12 HOURS ORAL 01/18/17 21:00 01/23/17 20:59 01/19/17 09:03 Sertraline HCl (Zoloft) 50 mg DAILY ORAL 01/19/17 09:00 02/16/17 08:59 01/19/17 09:03 Temazepam (Restoril) 15 mg HSPRN PRN ORAL Insomnia 01/18/17 21:00 01/23/17 20:59 Vancomycin HCl (Vanco rx to dose) 1 ea DAILY PRN MISC Per rx protocol 01/19/17 11:45 02/18/17 11:44 DIONI TRIANA Jan 19, 2017 18:34
--- NOTE | 2017-01-19 19:27 | General Progress Note ---
Assessment/Plan Status: stable, progressing Subjective Constitutional: Reports: malaise, weakness Neurologic/Psychiatric: Reports: anxiety, depressed, emotional problems Allergies: Coded Allergies: PENICILLINS (Unverified Allergy, Unknown, 03/22/15) Uncoded Allergies: PENICILLIN (Allergy, Unknown, 01/16/17) Objective Last 24 Hour Vital Signs Date Time Temp Pulse Resp B/P (MAP) Pulse Ox O2 Delivery O2 Flow Rate FiO2 01/19/17 16:00 98.2 69 20 91/44 100 Nasal Cannula 2.0 01/19/17 12:00 97.9 77 17 96/50 100 Nasal Cannula 4.0 01/19/17 08:00 97.5 82 16 106/58 100 Nasal Cannula 4.0 01/19/17 04:00 96.9 78 20 119/75 99 Nasal Cannula 2.0 01/19/17 00:00 97.9 75 20 110/55 100 Nasal Cannula 3.0 01/18/17 21:17 93 20 Nasal Cannula 2.0 28 01/18/17 19:47 97.7 73 20 107/68 100 Nasal Cannula 2.0 Intake and Output 01/19/17 01/20/17 19:00 07:00 Intake Total 720 ml Output Total 300 ml Balance 420 ml Intake Oral 360 ml IV Total 360 ml Output Urine Total 300 ml # Bowel Movements 1 Laboratory Tests 01/19/17 05:15: White Blood Count 4.9, Red Blood Count 2.52L, Hemoglobin 8.2L, Hematocrit 26.7L , Mean Corpuscular Volume 106H, Mean Corpuscular Hemoglobin 32.5H, Mean Corpuscular Hemoglobin Concent 30.8L, Red Cell Distribution Width 16.7H, Platelet Count 45L, Mean Platelet Volume 9.8, Neutrophils (%) (Auto) , Lymphocytes (%) (Auto) , Monocytes (%) (Auto) , Eosinophils (%) (Auto) , Basophils (%) (Auto) , Differential Total Cells Counted 100, Neutrophils % ( Manual) 83H, Lymphocytes % (Manual) 11L, Monocytes % (Manual) 5, Eosinophils % ( Manual) 1, Basophils % (Manual) 0, Band Neutrophils 0, Platelet Estimate DecreasedL, Platelet Morphology Normal, Hypochromasia 1+, Anisocytosis 1+, Macrocytosis 1+, Sodium Level 157H, Potassium Level 4.6, Chloride Level 125H, Carbon Dioxide Level 25, Anion Gap 7, Blood Urea Nitrogen 27H, Creatinine 2.0H, Estimat Glomerular Filtration Rate , Glucose Level 152H, Calcium Level 9.8, Troponin I < 0.30, Pro-B-Type Natriuretic Peptide 8896H 01/19/17 10:25: Ammonia 24 Height (Feet): 5 Height (Inches): 6.00 Weight (Pounds): 250 General Appearance: no apparent distress, confused, overweight Neurologic: alert, responsive, depressed affect Oj Medel M.D. Jan 19, 2017 19:27
--- NOTE | 2017-01-19 19:37 | Cardiology Report ---
APPROVED REPORT EXAM: Two-dimensional and M-mode echocardiogram with Doppler and color Doppler. INDICATION Congestive Heart Failure M-Mode DIMENSIONS IVSd1.2 (0.7-1.1cm)Left Atrium (MM)4.7 (1.6-4.0cm) LVDd5.8 (3.5-5.6cm)Aortic Root3.0 (2.0-3.7cm) PWd1.4 (0.7-1.1cm)Aortic Cusp Exc.2.0 (1.5-2.0cm) LVDs3.7 (2.5-4.0cm) PWs1.7 cm Technically difficult study due to poor acoustical windows. Normal left ventricular chamber size, systolic function and wall motion. Left ventricular ejection fraction estimated to be 60-65%. No evidence of left ventricular hypertrophy. No evidence of pericardial or pleural effusion. Right cardiac chamber sizes are within normal limits. Moderate left atrial enlargement by 2D. Focal aortic valve sclerosis with adequate cusp excursion. Normal mitral valve leaflets with normal excursion. Normal mitral annulus and aortic root calcification. Pulmonic valve not well visualized. Normal tricuspid valve structure. IVC is not obtainable. A color flow and spectral Doppler study was performed and revealed: No aortic regurgitation. Trace mitral regurgitation. Mitral diastolic velocities suggest reduced left ventricular relaxation c/w diastolic dysfunction grade 1. Moderate tricuspid regurgitation. Tricuspid systolic velocities suggests peak right ventricular systolic pressure of 31mmHg
[2017-01-19 20:00] VITALS: BP 103/57
[2017-01-19] MEDS: OLANZapine 2.5mg tab ORAL SCH ×2 (21:00→21:14)
--- NOTE | 2017-01-19 21:06 | General Progress Note ---
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 Objective Last 24 Hour Vital Signs Date Time Temp Pulse Resp B/P (MAP) Pulse Ox O2 Delivery O2 Flow Rate FiO2 01/19/17 16:00 98.2 69 20 91/44 100 Nasal Cannula 2.0 01/19/17 12:00 97.9 77 17 96/50 100 Nasal Cannula 4.0 01/19/17 08:00 97.5 82 16 106/58 100 Nasal Cannula 4.0 01/19/17 04:00 96.9 78 20 119/75 99 Nasal Cannula 2.0 01/19/17 00:00 97.9 75 20 110/55 100 Nasal Cannula 3.0 01/18/17 21:17 93 20 Nasal Cannula 2.0 28 Intake and Output 01/19/17 01/20/17 19:00 07:00 Intake Total 720 ml Output Total 300 ml Balance 420 ml Intake Oral 360 ml IV Total 360 ml Output Urine Total 300 ml # Bowel Movements 1 Laboratory Tests 01/19/17 05:15: White Blood Count 4.9, Red Blood Count 2.52L, Hemoglobin 8.2L, Hematocrit 26.7L , Mean Corpuscular Volume 106H, Mean Corpuscular Hemoglobin 32.5H, Mean Corpuscular Hemoglobin Concent 30.8L, Red Cell Distribution Width 16.7H, Platelet Count 45L, Mean Platelet Volume 9.8, Neutrophils (%) (Auto) , Lymphocytes (%) (Auto) , Monocytes (%) (Auto) , Eosinophils (%) (Auto) , Basophils (%) (Auto) , Differential Total Cells Counted 100, Neutrophils % ( Manual) 83H, Lymphocytes % (Manual) 11L, Monocytes % (Manual) 5, Eosinophils % ( Manual) 1, Basophils % (Manual) 0, Band Neutrophils 0, Platelet Estimate DecreasedL, Platelet Morphology Normal, Hypochromasia 1+, Anisocytosis 1+, Macrocytosis 1+, Sodium Level 157H, Potassium Level 4.6, Chloride Level 125H, Carbon Dioxide Level 25, Anion Gap 7, Blood Urea Nitrogen 27H, Creatinine 2.0H, Estimat Glomerular Filtration Rate , Glucose Level 152H, Calcium Level 9.8, Troponin I < 0.30, Pro-B-Type Natriuretic Peptide 8896H 01/19/17 10:25: Ammonia 24 Height (Feet): 5 Height (Inches): 6.00 Weight (Pounds): 250 Objective Obese WW NCAT supple CTA RRR soft ND NT (+) edema delirium KIERSTEN DAVIES Jan 19, 2017 21:06
[2017-01-20] VITALS: BP 100/53
[2017-01-20 04:00] VITALS: BP 128/50
[2017-01-20] MEDS: NovoLOG Insulin Flexpen SUBQ SCH ×4 (06:06→21:00)
[2017-01-20 08:00] VITALS: BP 123/67
[2017-01-20] MEDS: Lactulose 10gm/15ml UDC ORAL SCH ×3 (09:34→18:22)
[2017-01-20] MEDS: Sertraline 50mg tab ORAL SCH (09:34)
[2017-01-20] MEDS: Minocycline HCl 50mg cap ORAL SCH ×2 (09:35→21:00)
[2017-01-20] MEDS ORDERED: Heparin 2000 units/Ns 1000ml IV ONE (11:00)
[2017-01-20] MEDS ORDERED: Lidocaine 1% Plain 30 ml INJ ONE (11:00)
[2017-01-20 12:00] VITALS: BP 109/59
--- NOTE | 2017-01-20 13:26 | General Progress Note ---
Assessment/Plan Status: unchanged Assessment/Plan Acute on chronic renal failure- multifactorial CHF DM HTN Sepsis - Altered level of consciousness - ESBL (extended spectrum beta-lactamase) producing bacteria infection - Cardiomegaly - DM (diabetes mellitus) - HTN (hypertension) - UTI (urinary tract infection) - Anemia - High Cholestrol - COPD - YELENA - Fatty liver Plan: today's lab pending - after PICC line insertion Optimize cardiac and pulmonary status 2D echo results noted avoid nephrotoxics monitor renal parameters Urine studies per orders Subjective ROS Limited/Unobtainable: No Constitutional: Reports: malaise Allergies: Coded Allergies: PENICILLINS (Unverified Allergy, Unknown, 03/22/15) Uncoded Allergies: PENICILLIN (Allergy, Unknown, 01/16/17) Objective Last 24 Hour Vital Signs Date Time Temp Pulse Resp B/P (MAP) Pulse Ox O2 Delivery O2 Flow Rate FiO2 01/20/17 12:00 95.0 83 15 109/59 100 Nasal Cannula 3.0 01/20/17 08:00 94.4 86 16 123/67 100 Nasal Cannula 2.0 01/20/17 07:49 Nasal Cannula 2.0 28 01/20/17 07:48 82 20 Nasal Cannula 2.0 28 01/20/17 04:00 98.2 80 21 128/50 99 Nasal Cannula 2.0 01/20/17 00:00 98.4 69 20 100/53 100 Nasal Cannula 2.0 01/19/17 20:00 98.6 72 21 103/57 98 Room Air 01/19/17 19:30 Room Air 21 01/19/17 19:30 72 20 Room Air 21 01/19/17 16:00 98.2 69 20 91/44 100 Nasal Cannula 2.0 Intake and Output 01/20/17 01/21/17 19:00 07:00 Output Total 100 ml Balance -100 ml Output Urine Total 100 ml Height (Feet): 5 Height (Inches): 6.00 Weight (Pounds): 250 General Appearance: no apparent distress Objective no change ANDERS MOLINA Jan 20, 2017 13:26
[2017-01-20] MEDS: Cefepime HCl 1 GM in D5W 55 ML IVPB SCH (14:00)
--- NOTE | 2017-01-20 15:15 | General Progress Note ---
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 Objective Last 24 Hour Vital Signs Date Time Temp Pulse Resp B/P (MAP) Pulse Ox O2 Delivery O2 Flow Rate FiO2 01/20/17 12:00 95.0 83 15 109/59 100 Nasal Cannula 3.0 01/20/17 08:00 94.4 86 16 123/67 100 Nasal Cannula 2.0 01/20/17 07:49 Nasal Cannula 2.0 28 01/20/17 07:48 82 20 Nasal Cannula 2.0 28 01/20/17 04:00 98.2 80 21 128/50 99 Nasal Cannula 2.0 01/20/17 00:00 98.4 69 20 100/53 100 Nasal Cannula 2.0 01/19/17 20:00 98.6 72 21 103/57 98 Room Air 01/19/17 19:30 Room Air 21 01/19/17 19:30 72 20 Room Air 21 01/19/17 16:00 98.2 69 20 91/44 100 Nasal Cannula 2.0 Intake and Output 01/20/17 01/21/17 19:00 07:00 Output Total 100 ml Balance -100 ml Output Urine Total 100 ml Height (Feet): 5 Height (Inches): 6.00 Weight (Pounds): 250 Objective Obese WW NCAT supple CTA RRR soft ND NT (+) edema delirium KIERSTEN DAVIES Jan 20, 2017 15:15
[2017-01-20 16:00] VITALS: BP 105/55
--- NOTE | 2017-01-20 17:44 | Internal Med Progress Note ---
Subjective Date of Service: Jan 20, 2017 Physician Name Katharina Pond Attending Physician Rl Tee MD Current Medications Medications (Trade) Dose Ordered Sig/Pavel Route PRN Reason Start Time Stop Time Status Last Admin Dose Admin Acetaminophen (Tylenol) 650 mg Q4H PRN ORAL T>100.5 01/18/17 16:45 02/15/17 12:44 Albuterol/ Ipratropium (DuoNeb 0.5-3(2.5)mg/3ml) 3 ml Q4H PRN HHN Shortness of Breath 01/18/17 14:00 01/21/17 13:59 Cefepime HCl 1 gm/ Dextrose 55 ml @ 110 mls/hr Q24H IVPB 01/18/17 14:00 01/24/17 13:59 01/19/17 16:16 Clotrimazole (Lotrimin) 1 applic EVERY 12 HOURS TOPIC 01/19/17 14:00 02/18/17 13:59 01/20/17 09:46 Dextrose (Dextrose 50%) STAT PRN IV Hypoglycemia 01/18/17 14:00 02/17/17 13:59 Gabapentin (Neurontin) 300 mg THREE TIMES A DAY ORAL 01/19/17 13:00 02/18/17 12:59 01/20/17 12:31 Insulin Aspart (NovoLOG) BEFORE MEALS AND HS SUBQ 01/18/17 16:30 02/15/17 16:29 01/20/17 16:54 Lactulose (Cephulac) 10 gm THREE TIMES A DAY ORAL 01/19/17 13:00 02/18/17 12:59 01/20/17 12:32 Minocycline HCl (Minocin) 100 mg Q12HR ORAL 01/18/17 21:00 01/25/17 12:29 01/20/17 09:35 Morphine Sulfate (Morphine Sulfate) 2 mg Q4H PRN IVP Moderate Pain (Pain Scale 4-6) 01/18/17 14:00 01/23/17 13:59 Nitroglycerin (Ntg) 0.4 mg Q5MIN X 3 DOSES PRN SL Prn Chest Pain 01/18/17 13:45 02/15/17 12:59 Olanzapine (ZyPREXA) 2.5 mg BEDTIME ORAL 01/18/17 21:00 02/17/17 20:59 01/18/17 20:42 Ondansetron HCl (Zofran) 4 mg Q6H PRN IVP Nausea & Vomiting 01/18/17 14:00 02/15/17 13:59 Pantoprazole (Protonix) 40 mg EVERY 12 HOURS ORAL 01/19/17 21:00 02/18/17 20:59 01/20/17 09:35 Polyethylene Glycol (Miralax) 17 gm DAILYPRN PRN ORAL Constipation 01/18/17 14:00 02/17/17 13:59 Rifaximin (Xifaxan) 550 mg EVERY 12 HOURS ORAL 01/18/17 21:00 01/23/17 20:59 01/20/17 09:35 Sertraline HCl (Zoloft) 50 mg DAILY ORAL 01/19/17 09:00 02/16/17 08:59 01/20/17 09:34 Temazepam (Restoril) 15 mg HSPRN PRN ORAL Insomnia 01/18/17 21:00 01/23/17 20:59 Vancomycin HCl (Vanco rx to dose) 1 ea DAILY PRN MISC Per rx protocol 01/19/17 11:45 02/18/17 11:44 Allergies: Coded Allergies: PENICILLINS (Unverified Allergy, Unknown, 03/22/15) Uncoded Allergies: PENICILLIN (Allergy, Unknown, 01/16/17) ROS Limited/Unobtainable: No Constitutional: Reports: no symptoms HEENT: Reports: no symptoms Cardiovascular: Reports: no symptoms Respiratory: Reports: no symptoms Gastrointestinal/Abdominal: Reports: no symptoms Genitourinary: Reports: no symptoms Neurologic/Psychiatric: Reports: no symptoms Subjective 76 YO F admitted with altered mental status. Now UTI and CHF. Cover for Int Nishant-Dr Tee Objective Last Vital Signs Date Time Temp Pulse Resp B/P (MAP) Pulse Ox O2 Delivery O2 Flow Rate FiO2 01/20/17 16:00 95.1 79 21 105/55 100 Nasal Cannula 3.0 01/20/17 07:49 28 Intake and Output 01/20/17 01/21/17 19:00 07:00 Output Total 100 ml Balance -100 ml Output Urine Total 100 ml Objective General Appearance: WD/WN, no apparent distress, moderate distress, obese EENT: PERRL/EOMI, normal ENT inspection Neck: non-tender, normal alignment, supple, normal inspection Cardiovascular: normal peripheral pulses, normal rate, regular rhythm, no gallop/murmur, no JVD Respiratory/Chest: chest wall non-tender, lungs clear, normal breath sounds, no respiratory distress, no accessory muscle use Abdomen: G-Tube; non tender, no organomegaly, no mass 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 Baumanii. See ID note. Continur Invanz per ID (2) CHF (congestive heart failure) Assessment & Plan: LVEF 60-65%. see cardiology note. (3) DM (diabetes mellitus) Assessment & Plan: Continue novolog sliding scale (4) Hypercholesteremia (5) HTN (hypertension) Assessment & Plan: Currently hypotensive. (6) Uncontrolled diabetes mellitus (7) Cirrhosis Assessment & Plan: see GI note. (8) Anemia (9) Altered mental status (10) Renal failure Assessment & Plan: Await nephrology consult-Dr Terrell Status: not improved Assessment/Plan Discharge planning KATHARINA POND Jan 20, 2017 17:44
--- NOTE | 2017-01-20 18:17 | Cardiac Electrophysiology PN ---
Assessment/Plan Assessment/Plan 1. Congestive heart failure with a very high brain natriuretic peptide. Echocardiogram showed ejection fraction of 60% to 65% with diastolic dysfunction. Her EKG also showed normal sinus rhythm with low voltage QRS. Off Lasix for hypernatremia 2. Hypertension 3. Urinary tract infection. 4. Diabetes. 5. Hyperlipidemia. 6. Cirrhosis 7. Anemia with hemoglobin of 8. 8. Hypernatremia. DC Lasix.Couldn't even draw labs! CHAZ RN Subjective Subjective On med surge. Comfortable in NAD.Couldn't place PICC line placement.Central line placement pending for tomorrow. Objective Last 24 Hour Vital Signs Date Time Temp Pulse Resp B/P (MAP) Pulse Ox O2 Delivery O2 Flow Rate FiO2 01/20/17 16:00 95.1 79 21 105/55 100 Nasal Cannula 3.0 01/20/17 12:00 95.0 83 15 109/59 100 Nasal Cannula 3.0 01/20/17 08:00 94.4 86 16 123/67 100 Nasal Cannula 2.0 01/20/17 07:49 Nasal Cannula 2.0 28 01/20/17 07:48 82 20 Nasal Cannula 2.0 28 01/20/17 04:00 98.2 80 21 128/50 99 Nasal Cannula 2.0 01/20/17 00:00 98.4 69 20 100/53 100 Nasal Cannula 2.0 01/19/17 20:00 98.6 72 21 103/57 98 Room Air 01/19/17 19:30 Room Air 21 01/19/17 19:30 72 20 Room Air 21 Intake and Output 01/20/17 01/21/17 19:00 07:00 Output Total 100 ml Balance -100 ml Output Urine Total 100 ml Objective HEAD AND NECK: Shows no JVD. LUNGS: Clear. CARDIOVASCULAR: Shows regular S1 and S2 with no gallop or murmur. ABDOMEN: Soft and nontender and obese. EXTREMITIES: 2+ pitting edema. DEAN SHAW Jan 20, 2017 18:17
[2017-01-20 20:00] VITALS: BP 108/49
--- NOTE | 2017-01-20 20:37 | Infectious Diseases Prog Note ---
Assessment/Plan Assessment/Plan Assesment: Encephalopathy- possibly multifactorial- hepatic encephalopathy, infection -CXR : Cardiomegaly with evidence of congestive heart failure Probable MDR UTI, pyuria -u/a 01/16 WBC too many to count,nit neg ,leuk est +3; UCx x3 grew >100K MDR A.baumani complex (S. tigecycline/Minocycline, Polymixin B/Colistin), >100K PsA (S. Cefepime, Zosyn; R Cipro/Levo) -renal u/s: Nondiagnostic exam 04/23 S. aureus bacteremia- ?source, r/o endocarditis, r/o MRSA -01/16 04/23 BCx S. aureus (sensi pending), repaet Bcx 01/19 pending -TTE (limited study): No aortic regurgitation.Trace mitral regurgitation.Mitral diastolic velocities suggest reduced left ventricular relaxation c/w diastolic dysfunction grade 1.Moderate tricuspid regurgitation. RAMYA on CKD, worsening Afebrile, no leukocytosis Cirrhosis Anemia & thrombocytopenia DM type 2 Morbid obesity PLAN: -Continue Cefepime #4 for PsA and Minocycline for MDR ABC #3 , will treat for 5- 7 days for UTI -Continue IV Vancomycin #2 pending sensi S.a ureus -s/p 3d IV vanco 01/18 -Hold PICC line placement for at leat 48-72hrs of repeat neg Bcx -f/u Repeat 2 sets of Bcx -if febrile, persistent bacteremia, will need NAM to evaluate for endocarditis ( TTE was limited) -Monitor CBC/BMP, temperatures; CBC, CMP am - Urology evaluation for renal stone. Discussed with RN Subjective Allergies: Coded Allergies: PENICILLINS (Unverified Allergy, Unknown, 03/22/15) Uncoded Allergies: PENICILLIN (Allergy, Unknown, 01/16/17) Subjective afebrile no leukocytosis now bacteremic GPC 04/[address] Objective Vital Signs Last 24 Hour Vital Signs Date Time Temp Pulse Resp B/P (MAP) Pulse Ox O2 Delivery O2 Flow Rate FiO2 01/20/17 16:00 95.1 79 21 105/55 100 Nasal Cannula 3.0 01/20/17 12:00 95.0 83 15 109/59 100 Nasal Cannula 3.0 01/20/17 08:00 94.4 86 16 123/67 100 Nasal Cannula 2.0 01/20/17 07:49 Nasal Cannula 2.0 28 01/20/17 07:48 82 20 Nasal Cannula 2.0 28 01/20/17 04:00 98.2 80 21 128/50 99 Nasal Cannula 2.0 01/20/17 00:00 98.4 69 20 100/53 100 Nasal Cannula 2.0 Height (Feet): 5 Height (Inches): 6.00 Weight (Pounds): 250 Objective HEENT: No pale conjunctivae. No icterus. NECK: No lymphadenopathy. CHEST: Clear. HEART: S1 and S2. ABDOMEN: Soft and obese. EXTREMITIES: No cyanosis. NEUROLOGIC: Awake and lethargic. Current Medications Medications (Trade) Dose Ordered Sig/Pavel Route PRN Reason Start Time Stop Time Status Last Admin Dose Admin Acetaminophen (Tylenol) 650 mg Q4H PRN ORAL T>100.5 01/18/17 16:45 02/15/17 12:44 Albuterol/ Ipratropium (DuoNeb 0.5-3(2.5)mg/3ml) 3 ml Q4H PRN HHN Shortness of Breath 01/18/17 14:00 01/21/17 13:59 Cefepime HCl 1 gm/ Dextrose 55 ml @ 110 mls/hr Q24H IVPB 01/18/17 14:00 01/24/17 13:59 01/19/17 16:16 Clotrimazole (Lotrimin) 1 applic EVERY 12 HOURS TOPIC 01/19/17 14:00 02/18/17 13:59 01/20/17 09:46 Dextrose (Dextrose 50%) STAT PRN IV Hypoglycemia 01/18/17 14:00 02/17/17 13:59 Gabapentin (Neurontin) 300 mg THREE TIMES A DAY ORAL 01/19/17 13:00 02/18/17 12:59 01/20/17 12:31 Insulin Aspart (NovoLOG) BEFORE MEALS AND HS SUBQ 01/18/17 16:30 02/15/17 16:29 01/20/17 16:54 Lactulose (Cephulac) 10 gm THREE TIMES A DAY ORAL 01/19/17 13:00 02/18/17 12:59 01/20/17 18:22 Minocycline HCl (Minocin) 100 mg Q12HR ORAL 01/18/17 21:00 10/8/17 12:29 01/20/17 09:35 Morphine Sulfate (Morphine Sulfate) 2 mg Q4H PRN IVP Moderate Pain (Pain Scale 4-6) 01/18/17 14:00 01/23/17 13:59 Nitroglycerin (Ntg) 0.4 mg Q5MIN X 3 DOSES PRN SL Prn Chest Pain 01/18/17 13:45 02/15/17 12:59 Olanzapine (ZyPREXA) 2.5 mg BEDTIME ORAL 01/18/17 21:00 02/17/17 20:59 01/18/17 20:42 Ondansetron HCl (Zofran) 4 mg Q6H PRN IVP Nausea & Vomiting 01/18/17 14:00 02/15/17 13:59 Pantoprazole (Protonix) 40 mg EVERY 12 HOURS ORAL 01/19/17 21:00 02/18/17 20:59 01/20/17 09:35 Polyethylene Glycol (Miralax) 17 gm DAILYPRN PRN ORAL Constipation 01/18/17 14:00 02/17/17 13:59 Rifaximin (Xifaxan) 550 mg EVERY 12 HOURS ORAL 01/18/17 21:00 01/23/17 20:59 01/20/17 09:35 Sertraline HCl (Zoloft) 50 mg DAILY ORAL 01/19/17 09:00 02/16/17 08:59 01/20/17 09:34 Temazepam (Restoril) 15 mg HSPRN PRN ORAL Insomnia 01/18/17 21:00 01/23/17 20:59 Vancomycin HCl (Vanco rx to dose) 1 ea DAILY PRN MISC Per rx protocol 01/19/17 11:45 02/18/17 11:44 Nereyda Monroe M.D. Jan 20, 2017 20:37
[2017-01-20] MEDS: OLANZapine 2.5mg tab ORAL SCH (21:00)
--- NOTE | 2017-01-20 21:52 | Pulmonology Progress Note ---
Assessment/Plan Problems: (1) Altered level of consciousness (2) ESBL (extended spectrum beta-lactamase) producing bacteria infection (3) Cardiomegaly (4) DM (diabetes mellitus) (5) HTN (hypertension) (6) UTI (urinary tract infection) Assessment/Plan no new changes h/h stable lactulose check cultures check sensitivity eating 25% of her food med/surg f/u bun, f/u nephrology recommendations might benefit from comfort care, Code status needs to be addressed as well. Subjective ROS Limited/Unobtainable: No Constitutional: Reports: no symptoms HEENT: Repors: no symptoms Respiratory: Reports: no symptoms Allergies: Coded Allergies: PENICILLINS (Unverified Allergy, Unknown, 03/22/15) Uncoded Allergies: PENICILLIN (Allergy, Unknown, 01/16/17) Objective Last 24 Hour Vital Signs Date Time Temp Pulse Resp B/P (MAP) Pulse Ox O2 Delivery O2 Flow Rate FiO2 01/20/17 20:00 91.6 79 21 108/49 100 Nasal Cannula 3.0 01/20/17 16:00 95.1 79 21 105/55 100 Nasal Cannula 3.0 01/20/17 12:00 95.0 83 15 109/59 100 Nasal Cannula 3.0 01/20/17 08:00 94.4 86 16 123/67 100 Nasal Cannula 2.0 01/20/17 07:49 Nasal Cannula 2.0 28 01/20/17 07:48 82 20 Nasal Cannula 2.0 28 01/20/17 04:00 98.2 80 21 128/50 99 Nasal Cannula 2.0 01/20/17 00:00 98.4 69 20 100/53 100 Nasal Cannula 2.0 Intake and Output 01/20/17 01/21/17 19:00 07:00 Output Total 350 ml Balance -350 ml Output Urine Total 350 ml Objective General Appearance: WD/WN HEENT: normocephalic Breasts: no masses Cardiovascular: normal peripheral pulses Abdomen: normal bowel sounds, no organomegaly Genitourinary: normal external genitalia 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 Current Medications Medications (Trade) Dose Ordered Sig/Pavel Route PRN Reason Start Time Stop Time Status Last Admin Dose Admin Acetaminophen (Tylenol) 650 mg Q4H PRN ORAL T>100.5 01/18/17 16:45 02/15/17 12:44 Albuterol/ Ipratropium (DuoNeb 0.5-3(2.5)mg/3ml) 3 ml Q4H PRN HHN Shortness of Breath 01/18/17 14:00 01/21/17 13:59 Cefepime HCl 1 gm/ Dextrose 55 ml @ 110 mls/hr Q24H IVPB 01/18/17 14:00 01/24/17 13:59 01/19/17 16:16 Clotrimazole (Lotrimin) 1 applic EVERY 12 HOURS TOPIC 01/19/17 14:00 02/18/17 13:59 01/20/17 21:14 Dextrose (Dextrose 50%) STAT PRN IV Hypoglycemia 01/18/17 14:00 02/17/17 13:59 Gabapentin (Neurontin) 300 mg THREE TIMES A DAY ORAL 01/19/17 13:00 02/18/17 12:59 01/20/17 12:31 Insulin Aspart (NovoLOG) BEFORE MEALS AND HS SUBQ 01/18/17 16:30 02/15/17 16:29 01/20/17 16:54 Lactulose (Cephulac) 10 gm THREE TIMES A DAY ORAL 01/19/17 13:00 02/18/17 12:59 01/20/17 18:22 Minocycline HCl (Minocin) 100 mg Q12HR ORAL 01/18/17 21:00 01/25/17 12:29 01/20/17 09:35 Morphine Sulfate (Morphine Sulfate) 2 mg Q4H PRN IVP Moderate Pain (Pain Scale 4-6) 01/18/17 14:00 01/23/17 13:59 Nitroglycerin (Ntg) 0.4 mg Q5MIN X 3 DOSES PRN SL Prn Chest Pain 01/18/17 13:45 02/15/17 12:59 Olanzapine (ZyPREXA) 2.5 mg BEDTIME ORAL 01/18/17 21:00 02/17/17 20:59 01/18/17 20:42 Ondansetron HCl (Zofran) 4 mg Q6H PRN IVP Nausea & Vomiting 01/18/17 14:00 02/15/17 13:59 Pantoprazole (Protonix) 40 mg EVERY 12 HOURS ORAL 01/19/17 21:00 02/18/17 20:59 01/20/17 09:35 Polyethylene Glycol (Miralax) 17 gm DAILYPRN PRN ORAL Constipation 01/18/17 14:00 02/17/17 13:59 Rifaximin (Xifaxan) 550 mg EVERY 12 HOURS ORAL 01/18/17 21:00 01/23/17 20:59 01/20/17 09:35 Sertraline HCl (Zoloft) 50 mg DAILY ORAL 01/19/17 09:00 02/16/17 08:59 01/20/17 09:34 Temazepam (Restoril) 15 mg HSPRN PRN ORAL Insomnia 01/18/17 21:00 01/23/17 20:59 Vancomycin HCl (Vanco rx to dose) 1 ea DAILY PRN MISC Per rx protocol 01/19/17 11:45 02/18/17 11:44 DIONI TRIANA Jan 20, 2017 21:52
[2017-01-21] VITALS (15 sets, daily range): BP systolic 84–156; BP diastolic 21–90
[2017-01-21] MEDS ORDERED: Zemuron 50mg/5ml Inj IV ONE (06:00)
[2017-01-21] MEDS: NovoLOG Insulin Flexpen SUBQ SCH ×3 (06:05→20:37)
[2017-01-21] MEDS: Lactulose 10gm/15ml UDC ORAL SCH ×2 (09:00→18:12)
[2017-01-21] MEDS: Minocycline HCl 50mg cap ORAL SCH ×2 (09:00→20:34)
[2017-01-21] MEDS: Sertraline 50mg tab ORAL SCH (09:00)
[2017-01-21 09:45] LABS: HEMATOCRIT 30.2 % (37.0-47.0); MEAN CORPUSCULAR VOLUME 106 FL (80-99); PLATELET COUNT 49 K/UL (150-450); RED BLOOD COUNT 2.84 M/UL (4.20-5.40); RED CELL DISTRIBUTION WIDTH 17.4 % (11.6-14.8)
--- NOTE | 2017-01-21 10:05 | General Progress Note ---
Assessment/Plan Status: unchanged Assessment/Plan Acute on chronic renal failure- multifactorial CHF DM HTN Sepsis - Altered level of consciousness - ESBL (extended spectrum beta-lactamase) producing bacteria infection - Cardiomegaly - DM (diabetes mellitus) - HTN (hypertension) - UTI (urinary tract infection) - Anemia - High Cholestrol - COPD - YELENA - Fatty liver Plan: today's lab pending - Picc couldnt be inserted Optimize cardiac and pulmonary status 2D echo results noted avoid nephrotoxics monitor renal parameters Urine studies per orders Subjective ROS Limited/Unobtainable: No Constitutional: Reports: malaise, weakness Allergies: Coded Allergies: PENICILLINS (Unverified Allergy, Unknown, 03/22/15) Uncoded Allergies: PENICILLIN (Allergy, Unknown, 01/16/17) Objective Last 24 Hour Vital Signs Date Time Temp Pulse Resp B/P (MAP) Pulse Ox O2 Delivery O2 Flow Rate FiO2 01/21/17 08:00 97.3 81 20 106/58 99 Nasal Cannula 3.0 01/21/17 07:36 81 17 Nasal Cannula 3.0 01/21/17 07:36 Nasal Cannula 3.0 01/21/17 07:36 98 Nasal Cannula 3.0 01/21/17 04:37 94.7 81 20 103/56 99 Nasal Cannula 01/21/17 00:00 93.4 81 20 108/64 99 Nasal Cannula 3.0 01/20/17 20:00 91.6 79 21 108/49 100 Nasal Cannula 3.0 01/20/17 19:30 80 20 Nasal Cannula 2.0 28 01/20/17 19:30 Nasal Cannula 2.0 28 01/20/17 19:30 94 Nasal Cannula 2.0 28 01/20/17 16:00 95.1 79 21 105/55 100 Nasal Cannula 3.0 01/20/17 12:00 95.0 83 15 109/59 100 Nasal Cannula 3.0 Laboratory Tests 01/21/17 08:12: Arterial Blood pH 7.120*L, Arterial Blood Partial Pressure CO2 80.6*H, Arterial Blood Partial Pressure O2 68.1L, Arterial Blood HCO3 25.6, Arterial Blood Oxygen Saturation 90.7L, Arterial Blood Base Excess -4.6, Bon Test Positive 01/21/17 09:00: White Blood Count 9.0, Red Blood Count 2.84L, Hemoglobin 9.0L, Hematocrit 30.2L , Mean Corpuscular Volume 106H, Mean Corpuscular Hemoglobin 31.8H, Mean Corpuscular Hemoglobin Concent 29.9L, Red Cell Distribution Width 17.4H, Platelet Count 49L, Mean Platelet Volume 9.6, Neutrophils (%) (Auto) , Lymphocytes (%) (Auto) , Monocytes (%) (Auto) , Eosinophils (%) (Auto) , Basophils (%) (Auto) , Neutrophils % (Manual) [Pending], Lymphocytes % (Manual) [Pending], Platelet Estimate [Pending], Platelet Morphology [Pending], Erythrocyte Sedimentation Rate [Pending], Reticulocyte Count [Pending], Sodium Level [Pending], Potassium Level [Pending], Chloride Level [Pending], Carbon Dioxide Level [Pending], Blood Urea Nitrogen [Pending], Creatinine [Pending], Estimat Glomerular Filtration Rate [Pending], Glucose Level [Pending], Calcium Level [Pending], Ammonia [Pending], Folate [Pending] Height (Feet): 5 Height (Inches): 6.00 Weight (Pounds): 250 General Appearance: mild distress Cardiovascular: normal rate Respiratory/Chest: decreased breath sounds Abdomen: other - obese Objective no change ANDERS MOLINA Jan 21, 2017 10:05
[2017-01-21 10:24] LABS: ANION GAP 8 (5-15); BLOOD UREA NITROGEN 34 mg/dL (7-23); CALCIUM 9.9 mg/dL (8.6-10.2); CARBON DIOXIDE 24 mEQ/L (20-30); CHLORIDE 128 mEQ/L (98-107); CREATININE 2.3 mg/dL (0.5-0.9); SODIUM 160 mEQ/L (135-145)
[2017-01-21] MEDS ORDERED: Lidocaine 1% MPF 10mg/ml 5ml INJ ONE ×2 (12:30→14:30)
--- NOTE | 2017-01-21 13:27 | Internal Med Progress Note ---
Subjective Date of Service: Jan 21, 2017 Physician Name Katharina Pond Attending Physician Rl Tee MD Current Medications Medications (Trade) Dose Ordered Sig/Pavel Route PRN Reason Start Time Stop Time Status Last Admin Dose Admin Acetaminophen (Tylenol) 650 mg Q4H PRN ORAL T>100.5 01/18/17 16:45 02/15/17 12:44 Albuterol/ Ipratropium (DuoNeb 0.5-3(2.5)mg/3ml) 3 ml Q4H PRN HHN Shortness of Breath 01/18/17 14:00 01/21/17 13:59 Cefepime HCl 1 gm/ Dextrose 55 ml @ 110 mls/hr Q24H IVPB 01/18/17 14:00 01/24/17 13:59 01/19/17 16:16 Clotrimazole (Lotrimin) 1 applic EVERY 12 HOURS TOPIC 01/19/17 14:00 02/18/17 13:59 01/21/17 10:37 Dextrose (Dextrose 50%) STAT PRN IV Hypoglycemia 01/18/17 14:00 02/17/17 13:59 Gabapentin (Neurontin) 300 mg THREE TIMES A DAY ORAL 01/19/17 13:00 02/18/17 12:59 01/20/17 12:31 Insulin Aspart (NovoLOG) BEFORE MEALS AND HS SUBQ 01/18/17 16:30 02/15/17 16:29 01/20/17 16:54 Lactulose (Cephulac) 10 gm THREE TIMES A DAY ORAL 01/19/17 13:00 02/18/17 12:59 01/20/17 18:22 Minocycline HCl (Minocin) 100 mg Q12HR ORAL 01/18/17 21:00 01/25/17 12:29 01/20/17 09:35 Morphine Sulfate (Morphine Sulfate) 2 mg Q4H PRN IVP Moderate Pain (Pain Scale 4-6) 01/18/17 14:00 01/23/17 13:59 Nitroglycerin (Ntg) 0.4 mg Q5MIN X 3 DOSES PRN SL Prn Chest Pain 01/18/17 13:45 02/15/17 12:59 Olanzapine (ZyPREXA) 2.5 mg BEDTIME ORAL 01/18/17 21:00 02/17/17 20:59 01/18/17 20:42 Ondansetron HCl (Zofran) 4 mg Q6H PRN IVP Nausea & Vomiting 01/18/17 14:00 02/15/17 13:59 Pantoprazole (Protonix) 40 mg EVERY 12 HOURS ORAL 01/19/17 21:00 02/18/17 20:59 01/20/17 09:35 Polyethylene Glycol (Miralax) 17 gm DAILYPRN PRN ORAL Constipation 01/18/17 14:00 02/17/17 13:59 Rifaximin (Xifaxan) 550 mg EVERY 12 HOURS ORAL 01/18/17 21:00 01/23/17 20:59 01/20/17 09:35 Sertraline HCl (Zoloft) 50 mg DAILY ORAL 01/19/17 09:00 02/16/17 08:59 01/20/17 09:34 Temazepam (Restoril) 15 mg HSPRN PRN ORAL Insomnia 01/18/17 21:00 01/23/17 20:59 Vancomycin HCl (Vanco rx to dose) 1 ea DAILY PRN MISC Per rx protocol 01/19/17 11:45 02/18/17 11:44 Allergies: Coded Allergies: PENICILLINS (Unverified Allergy, Unknown, 03/22/15) ROS Limited/Unobtainable: Yes Subjective 76 YO F admitted with altered mental status. Now UTI and CHF. Patient transfered to ICU for altered mental status and worsening lethargy. Cover for Int Nishant-Dr Tee. Tolerating simple mask Objective Last Vital Signs Date Time Temp Pulse Resp B/P (MAP) Pulse Ox O2 Delivery O2 Flow Rate FiO2 01/21/17 08:00 97.3 81 20 106/58 99 Nasal Cannula 3.0 01/20/17 19:30 28 Laboratory Tests Test 01/21/17 08:12 01/21/17 09:00 Arterial Blood pH 7.120 (7.350-7.450) Arterial Blood Partial Pressure CO2 80.6 mmHg (35.0-45.0) *H Arterial Blood Partial Pressure O2 68.1 mmHg (75.0-100.0) L Arterial Blood HCO3 25.6 mmol/L (22.0-26.0) Arterial Blood Oxygen Saturation 90.7 % (92.0-98.0) L Arterial Blood Base Excess -4.6 Bon Test Positive White Blood Count 9.0 K/UL (4.8-10.8) Red Blood Count 2.84 M/UL (4.20-5.40) L Hemoglobin 9.0 G/DL (12.0-16.0) L Hematocrit 30.2 % (37.0-47.0) L Mean Corpuscular Volume 106 FL (80-99) H Mean Corpuscular Hemoglobin 31.8 PG (27.0-31.0) H Mean Corpuscular Hemoglobin Concent 29.9 G/DL (32.0-36.0) L Red Cell Distribution Width 17.4 % (11.6-14.8) H Platelet Count 49 K/UL (150-450) L Mean Platelet Volume 9.6 FL (6.5-10.1) Neutrophils (%) (Auto) % (45.0-75.0) Lymphocytes (%) (Auto) % (20.0-45.0) Monocytes (%) (Auto) % (1.0-10.0) Eosinophils (%) (Auto) % (0.0-3.0) Basophils (%) (Auto) % (0.0-2.0) Differential Total Cells Counted 100 Neutrophils % (Manual) 82 % (45-75) H Lymphocytes % (Manual) 9 % (20-45) L Monocytes % (Manual) 9 % (1-10) Eosinophils % (Manual) 0 % (0-3) Basophils % (Manual) 0 % (0-2) Band Neutrophils 0 % (0-8) Platelet Estimate Decreased L Platelet Morphology Normal Hypochromasia 1+ Anisocytosis 1+ Macrocytosis 1+ Erythrocyte Sedimentation Rate 76 MM/HR (0-30) H Reticulocyte Count 2.8 % (0.0-2.0) H Sodium Level 160 mEQ/L (135-145) H Potassium Level 5.0 mEQ/L (3.4-4.9) H Chloride Level 128 mEQ/L (98-107) H Carbon Dioxide Level 24 mEQ/L (20-30) Anion Gap 8 (5-15) Blood Urea Nitrogen 34 mg/dL (7-23) H Creatinine 2.3 mg/dL (0.5-0.9) H Estimat Glomerular Filtration Rate mL/min (>60) Glucose Level 127 mg/dL (74-106) H Calcium Level 9.9 mg/dL (8.6-10.2) Ammonia 45 umol/L (11-51) Folate Pending Microbiology Date/Time Source Procedure Growth Status 01/19/17 15:00 Blood Blood Culture - Preliminary NO GROWTH AFTER 24 HOURS Resulted 01/19/17 15:00 Blood Blood Culture - Preliminary NO GROWTH AFTER 24 HOURS Resulted Objective General Appearance: WD/WN, no apparent distress, moderate distress, obese EENT: PERRL/EOMI, normal ENT inspection Neck: non-tender, normal alignment, supple, normal inspection Cardiovascular: normal peripheral pulses, normal rate, regular rhythm, no gallop/murmur, no JVD Respiratory/Chest: chest wall non-tender, lungs clear, normal breath sounds, no respiratory distress, no accessory muscle use Abdomen: G-Tube; non tender, no organomegaly, no mass 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 Baumanii. See ID note. Continur Invanz per ID (2) CHF (congestive heart failure) Assessment & Plan: LVEF 60-65%. see cardiology note. (3) DM (diabetes mellitus) Assessment & Plan: Continue novolog sliding scale (4) Hypercholesteremia (5) HTN (hypertension) Assessment & Plan: Currently hypotensive. (6) Uncontrolled diabetes mellitus (7) Cirrhosis Assessment & Plan: see GI note. (8) Anemia (9) Altered mental status Assessment & Plan: Worsening. ICU status (10) Renal failure Assessment & Plan: See nephrology note. Status: deteriorating Assessment/Plan Discharge planning KATHARINA POND Jan 21, 2017 13:27
--- NOTE | 2017-01-21 13:30 | Pulmonolgy Critical Care Note ---
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 Respiratory: monitor respiratory rate, adjust FIO2, CXR Cardiac: continue to monitor HR/BP Renal: F/U I&O, keep IV fluid Infectious Disease: check cultures Endocrine: monitor blood sugar Hematologic: monitor H/H, transfuse if hgb<8.5 Neurologic: PRN Morphine, keep patient comfortable Prophylaxis: Protonix, Heparin Notes 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: 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, renal Discussed with: nurses, consultants, manager caseecommerce merchandising manager - Objective Last 24 Hour Vital Signs Date Time Temp Pulse Resp B/P (MAP) Pulse Ox O2 Delivery O2 Flow Rate FiO2 01/21/17 08:00 97.3 81 20 106/58 99 Nasal Cannula 3.0 01/21/17 07:36 81 17 Nasal Cannula 3.0 01/21/17 07:36 Nasal Cannula 3.0 01/21/17 07:36 98 Nasal Cannula 3.0 01/21/17 04:37 94.7 81 20 103/56 99 Nasal Cannula 01/21/17 00:00 93.4 81 20 108/64 99 Nasal Cannula 3.0 01/20/17 20:00 91.6 79 21 108/49 100 Nasal Cannula 3.0 01/20/17 19:30 80 20 Nasal Cannula 2.0 28 01/20/17 19:30 Nasal Cannula 2.0 28 01/20/17 19:30 94 Nasal Cannula 2.0 28 01/20/17 16:00 95.1 79 21 105/55 100 Nasal Cannula 3.0 Status: awake Condition: critical HEENT: atraumatic Neck: full ROM Lungs: clear Heart: HR/BP unstable, regular Abdomen: soft, non-tender, active bowel sounds, feeding tube Extremities: no C/C/E, edema Decubiti: location Micro: Microbiology Date/Time Source Procedure Growth Status 01/19/17 15:00 Blood Blood Culture - Preliminary NO GROWTH AFTER 24 HOURS Resulted 01/19/17 15:00 Blood Blood Culture - Preliminary NO GROWTH AFTER 24 HOURS Resulted Accucheck: 108 Critical Care - Subjective ROS Limited/Unobtainable: Yes ICU Day: 1 Interval Events: transferred to ICU b/o ALOC and hypercapnea. somnolent Condition: critical FI02: 28 Sputum Amount: None CXR: pending Labs: Laboratory Tests Test 01/21/17 08:12 01/21/17 09:00 Arterial Blood pH 7.120 (7.350-7.450) Arterial Blood Partial Pressure CO2 80.6 mmHg (35.0-45.0) *H Arterial Blood Partial Pressure O2 68.1 mmHg (75.0-100.0) L Arterial Blood HCO3 25.6 mmol/L (22.0-26.0) Arterial Blood Oxygen Saturation 90.7 % (92.0-98.0) L Arterial Blood Base Excess -4.6 Bon Test Positive White Blood Count 9.0 K/UL (4.8-10.8) Red Blood Count 2.84 M/UL (4.20-5.40) L Hemoglobin 9.0 G/DL (12.0-16.0) L Hematocrit 30.2 % (37.0-47.0) L Mean Corpuscular Volume 106 FL (80-99) H Mean Corpuscular Hemoglobin 31.8 PG (27.0-31.0) H Mean Corpuscular Hemoglobin Concent 29.9 G/DL (32.0-36.0) L Red Cell Distribution Width 17.4 % (11.6-14.8) H Platelet Count 49 K/UL (150-450) L Mean Platelet Volume 9.6 FL (6.5-10.1) Neutrophils (%) (Auto) % (45.0-75.0) Lymphocytes (%) (Auto) % (20.0-45.0) Monocytes (%) (Auto) % (1.0-10.0) Eosinophils (%) (Auto) % (0.0-3.0) Basophils (%) (Auto) % (0.0-2.0) Differential Total Cells Counted 100 Neutrophils % (Manual) 82 % (45-75) H Lymphocytes % (Manual) 9 % (20-45) L Monocytes % (Manual) 9 % (1-10) Eosinophils % (Manual) 0 % (0-3) Basophils % (Manual) 0 % (0-2) Band Neutrophils 0 % (0-8) Platelet Estimate Decreased L Platelet Morphology Normal Hypochromasia 1+ Anisocytosis 1+ Macrocytosis 1+ Erythrocyte Sedimentation Rate 76 MM/HR (0-30) H Reticulocyte Count 2.8 % (0.0-2.0) H Sodium Level 160 mEQ/L (135-145) H Potassium Level 5.0 mEQ/L (3.4-4.9) H Chloride Level 128 mEQ/L (98-107) H Carbon Dioxide Level 24 mEQ/L (20-30) Anion Gap 8 (5-15) Blood Urea Nitrogen 34 mg/dL (7-23) H Creatinine 2.3 mg/dL (0.5-0.9) H Estimat Glomerular Filtration Rate mL/min (>60) Glucose Level 127 mg/dL (74-106) H Calcium Level 9.9 mg/dL (8.6-10.2) Ammonia 45 umol/L (11-51) Folate Pending DIONI TRIANA Jan 21, 2017 13:30
[2017-01-21] MEDS ORDERED: Miralax 17gm pkt ORAL PRN (14:00)
--- NOTE | 2017-01-21 14:11 | Diagnostic Imaging Report ---
Indication: Dyspnea Comparison: 01/16/17 A single view chest radiograph was obtained. Findings: Interstitial edema vascular and cardiac prominence demonstrated. Lung lines are low. Bones are osteopenic. Impression: Congestive heart failure/CHF
--- NOTE | 2017-01-21 14:23 | Cardiac Electrophysiology PN ---
Assessment/Plan Assessment/Plan 1. Congestive heart failure with a very high brain natriuretic peptide. Echocardiogram showed ejection fraction of 60% to 65% with diastolic dysfunction. Her EKG also showed normal sinus rhythm with low voltage QRS. 2. Hypertension 3. Urinary tract infection. 4. Diabetes. 5. Hyperlipidemia. 6. Cirrhosis 7. Anemia with hemoglobin of 8. 8. Hypernatremia with NA 160 and renal failure. Start D5w 70cc/hr DW RN and Dr Elaine Subjective Subjective Transferred to ICU for respiratory failure with PCO2 of 80s. On Face mask now. No arrhythmias reported. Objective Last 24 Hour Vital Signs Date Time Temp Pulse Resp B/P (MAP) Pulse Ox O2 Delivery O2 Flow Rate FiO2 01/21/17 13:00 80 17 85/31 100 Simple Mask 8.0 01/21/17 12:00 98.2 84 20 116/65 99 Room Air 3.0 01/21/17 12:00 84 14 84/21 100 Simple Mask 8.0 01/21/17 11:30 93.5 83 16 156/90 100 Simple Mask 8.0 01/21/17 08:00 97.3 81 20 106/58 99 Nasal Cannula 3.0 01/21/17 07:36 81 17 Nasal Cannula 3.0 01/21/17 07:36 Nasal Cannula 3.0 01/21/17 07:36 98 Nasal Cannula 3.0 01/21/17 04:37 94.7 81 20 103/56 99 Nasal Cannula 01/21/17 00:00 93.4 81 20 108/64 99 Nasal Cannula 3.0 01/20/17 20:00 91.6 79 21 108/49 100 Nasal Cannula 3.0 01/20/17 19:30 80 20 Nasal Cannula 2.0 28 01/20/17 19:30 Nasal Cannula 2.0 28 01/20/17 19:30 94 Nasal Cannula 2.0 28 01/20/17 16:00 95.1 79 21 105/55 100 Nasal Cannula 3.0 Laboratory Tests Test 01/21/17 08:12 01/21/17 09:00 Arterial Blood pH 7.120 (7.350-7.450) Arterial Blood Partial Pressure CO2 80.6 mmHg (35.0-45.0) *H Arterial Blood Partial Pressure O2 68.1 mmHg (75.0-100.0) L Arterial Blood HCO3 25.6 mmol/L (22.0-26.0) Arterial Blood Oxygen Saturation 90.7 % (92.0-98.0) L Arterial Blood Base Excess -4.6 Bon Test Positive White Blood Count 9.0 K/UL (4.8-10.8) Red Blood Count 2.84 M/UL (4.20-5.40) L Hemoglobin 9.0 G/DL (12.0-16.0) L Hematocrit 30.2 % (37.0-47.0) L Mean Corpuscular Volume 106 FL (80-99) H Mean Corpuscular Hemoglobin 31.8 PG (27.0-31.0) H Mean Corpuscular Hemoglobin Concent 29.9 G/DL (32.0-36.0) L Red Cell Distribution Width 17.4 % (11.6-14.8) H Platelet Count 49 K/UL (150-450) L Mean Platelet Volume 9.6 FL (6.5-10.1) Neutrophils (%) (Auto) % (45.0-75.0) Lymphocytes (%) (Auto) % (20.0-45.0) Monocytes (%) (Auto) % (1.0-10.0) Eosinophils (%) (Auto) % (0.0-3.0) Basophils (%) (Auto) % (0.0-2.0) Differential Total Cells Counted 100 Neutrophils % (Manual) 82 % (45-75) H Lymphocytes % (Manual) 9 % (20-45) L Monocytes % (Manual) 9 % (1-10) Eosinophils % (Manual) 0 % (0-3) Basophils % (Manual) 0 % (0-2) Band Neutrophils 0 % (0-8) Platelet Estimate Decreased L Platelet Morphology Normal Hypochromasia 1+ Anisocytosis 1+ Macrocytosis 1+ Erythrocyte Sedimentation Rate 76 MM/HR (0-30) H Reticulocyte Count 2.8 % (0.0-2.0) H Sodium Level 160 mEQ/L (135-145) H Potassium Level 5.0 mEQ/L (3.4-4.9) H Chloride Level 128 mEQ/L (98-107) H Carbon Dioxide Level 24 mEQ/L (20-30) Anion Gap 8 (5-15) Blood Urea Nitrogen 34 mg/dL (7-23) H Creatinine 2.3 mg/dL (0.5-0.9) H Estimat Glomerular Filtration Rate mL/min (>60) Glucose Level 127 mg/dL (74-106) H Calcium Level 9.9 mg/dL (8.6-10.2) Ammonia 45 umol/L (11-51) Folate Pending Microbiology Date/Time Source Procedure Growth Status 01/19/17 15:00 Blood Blood Culture - Preliminary NO GROWTH AFTER 24 HOURS Resulted 01/19/17 15:00 Blood Blood Culture - Preliminary NO GROWTH AFTER 24 HOURS Resulted Objective HEAD AND NECK: Shows no JVD. LUNGS: Coarse rhonchi CARDIOVASCULAR: Shows regular S1 and S2 with no gallop or murmur. ABDOMEN: Soft and nontender and obese. EXTREMITIES: 2+ pitting edema. DEAN SHAW Jan 21, 2017 14:23
[2017-01-21] MEDS ORDERED: Nitroglycerin Subl 0.4mg tab SL PRN (14:30)
[2017-01-21] MEDS ORDERED: Albuterol/Ipratropium 3ml neb HHN PRN (14:30)
[2017-01-21] MEDS ORDERED: Morphine Sulfate 2mg/ml Inj IVP PRN (14:30)
[2017-01-21] MEDS: Cefepime HCl 1 GM in D5W 55 ML IVPB SCH (16:59)
--- NOTE | 2017-01-21 19:35 | General Progress Note ---
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 - free water deficit - Azotemia Recommendations - Lactulose PO or enemas - Xifaxan - Aspiration precautions - Free water - follow labs - Tube feeding Subjective Allergies: Coded Allergies: PENICILLINS (Unverified Allergy, Unknown, 03/22/15) Subjective less responsive today transferred to ICU electrolyte abnormalities noted on IV D5W has NGT Ammonia normal Objective Last 24 Hour Vital Signs Date Time Temp Pulse Resp B/P (MAP) Pulse Ox O2 Delivery O2 Flow Rate FiO2 01/21/17 19:01 94 16 Bi-pap 50 01/21/17 19:00 88 17 97/35 100 Bi-pap 50 01/21/17 19:00 94 16 100 Facial 50 01/21/17 18:00 89 13 117/44 100 Bi-pap 50 01/21/17 17:39 87 18 100 Facial 50 01/21/17 17:00 83 13 118/42 100 Bi-pap 50 01/21/17 17:00 50 01/21/17 16:00 96.0 85 13 99/48 100 Simple Mask 8.0 01/21/17 14:00 81 14 91/29 100 Simple Mask 8.0 01/21/17 13:00 80 17 85/31 100 Simple Mask 8.0 01/21/17 12:00 98.2 84 20 116/65 99 Room Air 3.0 01/21/17 12:00 84 14 84/21 100 Simple Mask 8.0 01/21/17 11:30 93.5 83 16 156/90 100 Simple Mask 8.0 01/21/17 08:00 97.3 81 20 106/58 99 Nasal Cannula 3.0 01/21/17 07:36 81 17 Nasal Cannula 3.0 01/21/17 07:36 Nasal Cannula 3.0 01/21/17 07:36 98 Nasal Cannula 3.0 01/21/17 04:37 94.7 81 20 103/56 99 Nasal Cannula 01/21/17 00:00 93.4 81 20 108/64 99 Nasal Cannula 3.0 01/20/17 20:00 91.6 79 21 108/49 100 Nasal Cannula 3.0 Intake and Output 01/21/17 01/22/17 19:00 07:00 Output Total 55 ml Balance -55 ml Output Urine Total 55 ml Laboratory Tests 01/21/17 08:12: Arterial Blood pH 7.120*L, Arterial Blood Partial Pressure CO2 80.6*H, Arterial Blood Partial Pressure O2 68.1L, Arterial Blood HCO3 25.6, Arterial Blood Oxygen Saturation 90.7L, Arterial Blood Base Excess -4.6, Bon Test Positive 01/21/17 09:00: White Blood Count 9.0, Red Blood Count 2.84L, Hemoglobin 9.0L, Hematocrit 30.2L , Mean Corpuscular Volume 106H, Mean Corpuscular Hemoglobin 31.8H, Mean Corpuscular Hemoglobin Concent 29.9L, Red Cell Distribution Width 17.4H, Platelet Count 49L, Mean Platelet Volume 9.6, Neutrophils (%) (Auto) , Lymphocytes (%) (Auto) , Monocytes (%) (Auto) , Eosinophils (%) (Auto) , Basophils (%) (Auto) , Differential Total Cells Counted 100, Neutrophils % ( Manual) 82H, Lymphocytes % (Manual) 9L, Monocytes % (Manual) 9, Eosinophils % ( Manual) 0, Basophils % (Manual) 0, Band Neutrophils 0, Platelet Estimate DecreasedL, Platelet Morphology Normal, Hypochromasia 1+, Anisocytosis 1+, Macrocytosis 1+, Erythrocyte Sedimentation Rate 76H, Reticulocyte Count 2.8H, Sodium Level 160H, Potassium Level 5.0H, Chloride Level 128H, Carbon Dioxide Level 24, Anion Gap 8, Blood Urea Nitrogen 34H, Creatinine 2.3H, Estimat Glomerular Filtration Rate , Glucose Level 127H, Calcium Level 9.9, Ammonia 45, Folate [Pending] 01/21/17 14:11: Arterial Blood pH 7.105*L, Arterial Blood Partial Pressure CO2 81.8*H, Arterial Blood Partial Pressure O2 252.7H, Arterial Blood HCO3 25.1, Arterial Blood Oxygen Saturation 99.7H, Arterial Blood Base Excess -5.1, Bon Test Positive 01/21/17 16:30: Arterial Blood pH 7.073*L, Arterial Blood Partial Pressure CO2 85.9*H, Arterial Blood Partial Pressure O2 213.9H, Arterial Blood HCO3 24.5, Arterial Blood Oxygen Saturation 98.5H, Arterial Blood Base Excess -6.4, Bon Test Positive 01/21/17 16:50: Random Vancomycin Level 20.6 Height (Feet): 5 Height (Inches): 6.00 Weight (Pounds): 250 Objective Obese WW NCAT supple CTA RRR soft ND NT (+) edema confused KIERSTEN DAVIES Jan 21, 2017 19:35
--- NOTE | 2017-01-21 20:07 | Geriatric Progress Note ---
Assessment/Plan Assessment/Plan encephalopathy Discussed with: patient Subjective Mood/Memory: Reports: prior hx, anxiety, depressed feelings, emotional problems Psychiatric: Reports: see HPI, hallucinations Geriatric Geriatric Last 24 Hour Vital Signs Date Time Temp Pulse Resp B/P (MAP) Pulse Ox O2 Delivery O2 Flow Rate FiO2 01/21/17 19:01 94 16 Bi-pap 50 01/21/17 19:00 88 17 97/35 100 Bi-pap 50 01/21/17 19:00 94 16 100 Facial 50 01/21/17 18:00 89 13 117/44 100 Bi-pap 50 01/21/17 17:39 87 18 100 Facial 50 01/21/17 17:00 83 13 118/42 100 Bi-pap 50 01/21/17 17:00 50 01/21/17 16:00 96.0 85 13 99/48 100 Simple Mask 8.0 01/21/17 14:00 81 14 91/29 100 Simple Mask 8.0 01/21/17 13:00 80 17 85/31 100 Simple Mask 8.0 01/21/17 12:00 98.2 84 20 116/65 99 Room Air 3.0 01/21/17 12:00 84 14 84/21 100 Simple Mask 8.0 01/21/17 11:30 93.5 83 16 156/90 100 Simple Mask 8.0 01/21/17 08:00 97.3 81 20 106/58 99 Nasal Cannula 3.0 01/21/17 07:36 81 17 Nasal Cannula 3.0 01/21/17 07:36 Nasal Cannula 3.0 01/21/17 07:36 98 Nasal Cannula 3.0 01/21/17 04:37 94.7 81 20 103/56 99 Nasal Cannula 01/21/17 00:00 93.4 81 20 108/64 99 Nasal Cannula 3.0 Intake and Output 01/21/17 01/22/17 19:00 07:00 Intake Total 75 ml 75 ml Output Total 55 ml 0 ml Balance 20 ml 75 ml IV Total 75 ml 75 ml Output Urine Total 55 ml 0 ml Laboratory Tests Test 01/21/17 08:12 01/21/17 09:00 01/21/17 14:11 01/21/17 16:30 Arterial Blood pH 7.120 (7.350-7.450) 7.105 (7.350-7.450) 7.073 (7.350-7.450) Arterial Blood Partial Pressure CO2 80.6 mmHg (35.0-45.0) *H 81.8 mmHg (35.0-45.0) *H 85.9 mmHg (35.0-45.0) *H Arterial Blood Partial Pressure O2 68.1 mmHg (75.0-100.0) L 252.7 mmHg (75.0-100.0) H 213.9 mmHg (75.0-100.0) H Arterial Blood HCO3 25.6 mmol/L (22.0-26.0) 25.1 mmol/L (22.0-26.0) 24.5 mmol/L (22.0-26.0) Arterial Blood Oxygen Saturation 90.7 % (92.0-98.0) L 99.7 % (92.0-98.0) H 98.5 % (92.0-98.0) H Arterial Blood Base Excess -4.6 -5.1 -6.4 Bon Test Positive Positive Positive White Blood Count 9.0 K/UL (4.8-10.8) Red Blood Count 2.84 M/UL (4.20-5.40) L Hemoglobin 9.0 G/DL (12.0-16.0) L Hematocrit 30.2 % (37.0-47.0) L Mean Corpuscular Volume 106 FL (80-99) H Mean Corpuscular Hemoglobin 31.8 PG (27.0-31.0) H Mean Corpuscular Hemoglobin Concent 29.9 G/DL (32.0-36.0) L Red Cell Distribution Width 17.4 % (11.6-14.8) H Platelet Count 49 K/UL (150-450) L Mean Platelet Volume 9.6 FL (6.5-10.1) Neutrophils (%) (Auto) % (45.0-75.0) Lymphocytes (%) (Auto) % (20.0-45.0) Monocytes (%) (Auto) % (1.0-10.0) Eosinophils (%) (Auto) % (0.0-3.0) Basophils (%) (Auto) % (0.0-2.0) Differential Total Cells Counted 100 Neutrophils % (Manual) 82 % (45-75) H Lymphocytes % (Manual) 9 % (20-45) L Monocytes % (Manual) 9 % (1-10) Eosinophils % (Manual) 0 % (0-3) Basophils % (Manual) 0 % (0-2) Band Neutrophils 0 % (0-8) Platelet Estimate Decreased L Platelet Morphology Normal Hypochromasia 1+ Anisocytosis 1+ Macrocytosis 1+ Erythrocyte Sedimentation Rate 76 MM/HR (0-30) H Reticulocyte Count 2.8 % (0.0-2.0) H Sodium Level 160 mEQ/L (135-145) H Potassium Level 5.0 mEQ/L (3.4-4.9) H Chloride Level 128 mEQ/L (98-107) H Carbon Dioxide Level 24 mEQ/L (20-30) Anion Gap 8 (5-15) Blood Urea Nitrogen 34 mg/dL (7-23) H Creatinine 2.3 mg/dL (0.5-0.9) H Estimat Glomerular Filtration Rate mL/min (>60) Glucose Level 127 mg/dL (74-106) H Calcium Level 9.9 mg/dL (8.6-10.2) Ammonia 45 umol/L (11-51) Folate Pending Test 01/21/17 16:50 Random Vancomycin Level 20.6 ug/mL Current Medications Medications (Trade) Dose Ordered Sig/Pavel Route PRN Reason Start Time Stop Time Status Last Admin Dose Admin Acetaminophen (Tylenol) 650 mg Q4H PRN ORAL T>100.5 01/21/17 14:30 02/15/17 14:29 Albuterol/ Ipratropium (DuoNeb 0.5-3(2.5)mg/3ml) 3 ml Q4H PRN HHN Shortness of Breath 01/21/17 14:30 01/28/17 14:29 Cefepime HCl 1 gm/ Dextrose 55 ml @ 110 mls/hr Q24H IVPB 01/21/17 15:00 01/24/17 14:59 01/21/17 16:59 Clotrimazole (Lotrimin) 1 applic EVERY 12 HOURS TOPIC 01/21/17 21:00 02/18/17 13:59 Dextrose 1,000 ml @ 75 mls/hr [id number] IV 01/21/17 15:00 02/20/17 14:59 01/21/17 17:00 Dextrose (Dextrose 50%) STAT PRN IV Hypoglycemia 01/21/17 14:30 02/17/17 14:29 Insulin Aspart (NovoLOG) BEFORE MEALS AND HS SUBQ 01/21/17 16:30 02/15/17 16:29 01/21/17 16:58 Lactulose (Cephulac) 10 gm THREE TIMES A DAY ORAL 01/21/17 18:00 02/18/17 12:59 01/21/17 18:12 Minocycline HCl (Minocin) 100 mg Q12HR ORAL 01/21/17 21:00 01/25/17 12:29 Nitroglycerin (Ntg) 0.4 mg Q5MIN X 3 DOSES PRN SL Prn Chest Pain 01/21/17 14:30 02/15/17 14:29 Olanzapine (ZyPREXA) 2.5 mg BEDTIME ORAL 01/21/17 21:00 02/17/17 20:59 Ondansetron HCl (Zofran) 4 mg Q6H PRN IVP Nausea & Vomiting 01/21/17 14:30 02/15/17 14:29 Pantoprazole (Protonix) 40 mg EVERY 12 HOURS IVP 01/21/17 21:00 02/20/17 20:59 Polyethylene Glycol (Miralax) 17 gm DAILYPRN PRN ORAL Constipation 01/21/17 14:00 02/17/17 13:59 Rifaximin (Xifaxan) 550 mg EVERY 12 HOURS ORAL 01/21/17 21:00 01/23/17 20:59 Sertraline HCl (Zoloft) 50 mg DAILY ORAL 01/22/17 09:00 02/16/17 08:59 Vancomycin HCl (Vanco rx to dose) 1 ea DAILY PRN MISC Per rx protocol 01/22/17 09:00 02/18/17 11:44 Vancomycin/Sodium Chloride 250 ml @ 166.667 mls/hr ONCE ONCE IVPB 01/22/17 06:00 01/22/17 07:29 Height (Feet): 5 Height (Inches): 6.00 Weight (Pounds): 250 General Appearance: no apparent distress, poor eye contact, lethargic Psychiatric Orientation: disoriented Oj Medel M.D. Jan 21, 2017 20:07
--- NOTE | 2017-01-21 20:26 | Infectious Diseases Prog Note ---
Assessment/Plan Assessment/Plan Assesment: Encephalopathy- possibly multifactorial- hepatic encephalopathy, infection- worsening now due to hypercapnea (transferrd to ICU 01/21), on bipap -CXR : Cardiomegaly with evidence of congestive heart failure Probable MDR UTI, pyuria, on Tx -u/a 01/16 WBC too many to count,nit neg ,leuk est +3; UCx x3 grew >100K MDR A.baumani complex (S. tigecycline/Minocycline, Polymixin B/Colistin), >100K PsA (S. Cefepime, Zosyn; R Cipro/Levo) -renal u/s: Nondiagnostic exam 04/23 MRSA bacteremia- ?source, r/o endocarditis -01/16 04/23 BCx S. aureus (sensi pending), repaet Bcx 01/19 NTD -TTE (limited study): No aortic regurgitation.Trace mitral regurgitation.Mitral diastolic velocities suggest reduced left ventricular relaxation c/w diastolic dysfunction grade 1.Moderate tricuspid regurgitation. RAMYA on CKD, worsening Afebrile, no leukocytosis Cirrhosis Anemia & thrombocytopenia DM type 2 Morbid obesity PLAN: -Continue Cefepime #5/7 for PsA and Minocycline for MDR ABC #4/7 for UTI tx -Continue IV Vancomycin #3 For MRSA bacteremia -s/p 3d IV vanco 01/18 -Hold PICC line placement for at leat 48-72hrs of repeat neg Bcx -f/u Repeat 2 sets of Bcx -if febrile, persistent bacteremia, will need NAM to evaluate for endocarditis ( TTE was limited) -Monitor CBC/BMP, temperatures - Urology evaluation for renal stone. Discussed with RN Subjective Allergies: Coded Allergies: PENICILLINS (Unverified Allergy, Unknown, 03/22/15) Subjective Transferred to ICU given worsening AMS, lethargy afebrile repeat Bcx NTD bcx 01/16 with MRSA hypercapenic, on bipap worsneing RAMYA Objective Vital Signs Last 24 Hour Vital Signs Date Time Temp Pulse Resp B/P (MAP) Pulse Ox O2 Delivery O2 Flow Rate FiO2 01/21/17 20:00 96.0 89 13 113/42 100 Bi-pap 50 01/21/17 20:00 99 40 01/21/17 19:01 94 16 Bi-pap 50 01/21/17 19:00 88 17 97/35 100 Bi-pap 50 01/21/17 19:00 94 16 100 Facial 50 01/21/17 18:00 89 13 117/44 100 Bi-pap 50 01/21/17 17:39 87 18 100 Facial 50 01/21/17 17:00 83 13 118/42 100 Bi-pap 50 01/21/17 17:00 50 01/21/17 16:00 96.0 85 13 99/48 100 Simple Mask 8.0 01/21/17 14:00 81 14 91/29 100 Simple Mask 8.0 01/21/17 13:00 80 17 85/31 100 Simple Mask 8.0 01/21/17 12:00 98.2 84 20 116/65 99 Room Air 3.0 01/21/17 12:00 84 14 84/21 100 Simple Mask 8.0 01/21/17 11:30 93.5 83 16 156/90 100 Simple Mask 8.0 01/21/17 08:00 97.3 81 20 106/58 99 Nasal Cannula 3.0 01/21/17 07:36 81 17 Nasal Cannula 3.0 01/21/17 07:36 Nasal Cannula 3.0 01/21/17 07:36 98 Nasal Cannula 3.0 01/21/17 04:37 94.7 81 20 103/56 99 Nasal Cannula 01/21/17 00:00 93.4 81 20 108/64 99 Nasal Cannula 3.0 Height (Feet): 5 Height (Inches): 6.00 Weight (Pounds): 250 Objective HEENT: No pale conjunctivae. No icterus.BIpap mask on place NECK: No lymphadenopathy. CHEST: coarse breath sounds HEART: S1 and S2. ABDOMEN: Soft and obese. EXTREMITIES: No cyanosis. NEUROLOGIC: lethargic. Skin: no rashes Microbiology Date/Time Source Procedure Growth Status 01/19/17 15:00 Blood Blood Culture - Preliminary NO GROWTH AFTER 24 HOURS Resulted 01/19/17 15:00 Blood Blood Culture - Preliminary NO GROWTH AFTER 24 HOURS Resulted Laboratory Tests Test 01/21/17 08:12 01/21/17 09:00 01/21/17 14:11 01/21/17 16:30 Arterial Blood pH 7.120 (7.350-7.450) 7.105 (7.350-7.450) 7.073 (7.350-7.450) Arterial Blood Partial Pressure CO2 80.6 mmHg (35.0-45.0) *H 81.8 mmHg (35.0-45.0) *H 85.9 mmHg (35.0-45.0) *H Arterial Blood Partial Pressure O2 68.1 mmHg (75.0-100.0) L 252.7 mmHg (75.0-100.0) H 213.9 mmHg (75.0-100.0) H Arterial Blood HCO3 25.6 mmol/L (22.0-26.0) 25.1 mmol/L (22.0-26.0) 24.5 mmol/L (22.0-26.0) Arterial Blood Oxygen Saturation 90.7 % (92.0-98.0) L 99.7 % (92.0-98.0) H 98.5 % (92.0-98.0) H Arterial Blood Base Excess -4.6 -5.1 -6.4 Bon Test Positive Positive Positive White Blood Count 9.0 K/UL (4.8-10.8) Red Blood Count 2.84 M/UL (4.20-5.40) L Hemoglobin 9.0 G/DL (12.0-16.0) L Hematocrit 30.2 % (37.0-47.0) L Mean Corpuscular Volume 106 FL (80-99) H Mean Corpuscular Hemoglobin 31.8 PG (27.0-31.0) H Mean Corpuscular Hemoglobin Concent 29.9 G/DL (32.0-36.0) L Red Cell Distribution Width 17.4 % (11.6-14.8) H Platelet Count 49 K/UL (150-450) L Mean Platelet Volume 9.6 FL (6.5-10.1) Neutrophils (%) (Auto) % (45.0-75.0) Lymphocytes (%) (Auto) % (20.0-45.0) Monocytes (%) (Auto) % (1.0-10.0) Eosinophils (%) (Auto) % (0.0-3.0) Basophils (%) (Auto) % (0.0-2.0) Differential Total Cells Counted 100 Neutrophils % (Manual) 82 % (45-75) H Lymphocytes % (Manual) 9 % (20-45) L Monocytes % (Manual) 9 % (1-10) Eosinophils % (Manual) 0 % (0-3) Basophils % (Manual) 0 % (0-2) Band Neutrophils 0 % (0-8) Platelet Estimate Decreased L Platelet Morphology Normal Hypochromasia 1+ Anisocytosis 1+ Macrocytosis 1+ Erythrocyte Sedimentation Rate 76 MM/HR (0-30) H Reticulocyte Count 2.8 % (0.0-2.0) H Sodium Level 160 mEQ/L (135-145) H Potassium Level 5.0 mEQ/L (3.4-4.9) H Chloride Level 128 mEQ/L (98-107) H Carbon Dioxide Level 24 mEQ/L (20-30) Anion Gap 8 (5-15) Blood Urea Nitrogen 34 mg/dL (7-23) H Creatinine 2.3 mg/dL (0.5-0.9) H Estimat Glomerular Filtration Rate mL/min (>60) Glucose Level 127 mg/dL (74-106) H Calcium Level 9.9 mg/dL (8.6-10.2) Ammonia 45 umol/L (11-51) Folate Pending Test 01/21/17 16:50 Random Vancomycin Level 20.6 ug/mL Current Medications Medications (Trade) Dose Ordered Sig/Pavel Route PRN Reason Start Time Stop Time Status Last Admin Dose Admin Acetaminophen (Tylenol) 650 mg Q4H PRN ORAL T>100.5 01/21/17 14:30 02/15/17 14:29 Albuterol/ Ipratropium (DuoNeb 0.5-3(2.5)mg/3ml) 3 ml Q4H PRN HHN Shortness of Breath 01/21/17 14:30 01/28/17 14:29 Cefepime HCl 1 gm/ Dextrose 55 ml @ 110 mls/hr Q24H IVPB 01/21/17 15:00 01/24/17 14:59 01/21/17 16:59 Clotrimazole (Lotrimin) 1 applic EVERY 12 HOURS TOPIC 01/21/17 21:00 02/18/17 13:59 Dextrose 1,000 ml @ 75 mls/hr [id number] IV 01/21/17 15:00 02/20/17 14:59 01/21/17 17:00 Dextrose (Dextrose 50%) STAT PRN IV Hypoglycemia 01/21/17 14:30 02/17/17 14:29 Insulin Aspart (NovoLOG) BEFORE MEALS AND HS SUBQ 01/21/17 16:30 02/15/17 16:29 01/21/17 16:58 Lactulose (Cephulac) 10 gm THREE TIMES A DAY ORAL 01/21/17 18:00 02/18/17 12:59 01/21/17 18:12 Minocycline HCl (Minocin) 100 mg Q12HR ORAL 01/21/17 21:00 01/25/17 12:29 Nitroglycerin (Ntg) 0.4 mg Q5MIN X 3 DOSES PRN SL Prn Chest Pain 01/21/17 14:30 02/15/17 14:29 Olanzapine (ZyPREXA) 2.5 mg BEDTIME ORAL 01/21/17 21:00 02/17/17 20:59 Ondansetron HCl (Zofran) 4 mg Q6H PRN IVP Nausea & Vomiting 01/21/17 14:30 02/15/17 14:29 Pantoprazole (Protonix) 40 mg EVERY 12 HOURS IVP 01/21/17 21:00 02/20/17 20:59 Polyethylene Glycol (Miralax) 17 gm DAILYPRN PRN ORAL Constipation 01/21/17 14:00 02/17/17 13:59 Rifaximin (Xifaxan) 550 mg EVERY 12 HOURS ORAL 01/21/17 21:00 01/23/17 20:59 Sertraline HCl (Zoloft) 50 mg DAILY ORAL 01/22/17 09:00 02/16/17 08:59 Vancomycin HCl (Vanco rx to dose) 1 ea DAILY PRN MISC Per rx protocol 01/22/17 09:00 02/18/17 11:44 Vancomycin/Sodium Chloride 250 ml @ 166.667 mls/hr ONCE ONCE IVPB 01/22/17 06:00 01/22/17 07:29 Nereyda Monroe M.D. Jan 21, 2017 20:26
[2017-01-21] MEDS: Pantoprazole Inj IVP SCH (20:34)
[2017-01-21] MEDS ORDERED: OLANZapine 2.5mg tab ORAL SCH (21:00)
--- NOTE | 2017-01-21 22:46 | Emergency Room Report ---
History of Present Illness General Chief Complaint: Altered Level of Consciousness Source: Patient, Medical Record, PMD Present Illness Allergies: Coded Allergies: PENICILLINS (Unverified Allergy, Unknown, 03/22/15) Patient History Now: No Nursing Documentation-[facility] Past Medical History: No History, Except For Hx Cardiac Problems: Yes - Anemia, Cardiomyopathy, HF, Artherosclerotic heart disease, Angina pectoris Hx Hypertension: Yes - Hypercholesteremia, Hyperlipidemia, Orthostatic hypotension Hx Pacemaker: No Hx Asthma: No - Hypomagnesemia, Hyperkalemia Hx COPD: Yes - Bronchitis, PNA, Acute Resp Fail., Thrombocytopenia Hx Diabetes: Yes - Gout, Ascites Hx Cancer: No - Abd actinomycosis, malnutrition, Gastrostomy, Dysphagia Hx Gastrointestinal Problems: Yes - GERD, Ulcerative colitis, Morbid obesity, cholelithiasis, Acute cholecystit History Of Psychiatric Problem: Yes - Insomnia, Bipolar, AMS, Major depressive disorder, Alzheimer's Hx Neurological Problems: Yes - Diabetic neuropathy, Obstructive sleep apnea, Muscle weakness Hx Cerebrovascular Accident: No - Encephalopathy Hx Seizures: No - Erythema Intertrigo Physical Exam Vital Signs Date Time Temp Pulse Resp B/P (MAP) Pulse Ox O2 Delivery O2 Flow Rate FiO2 01/16/17 09:56 97.2 76 26 130/56 96 Nasal Cannula 2.0 01/18/17 21:17 28 Procedures Intubation Intubation : Consent: Emergent Time of Intubation: 21:45 Intubation Method: orotracheal Tube Size (cm): 7.0 Breath Sounds after Intubation: right greater than left Intubation Complications: no complications Post Intubation Xray: Yes Progress/Xray Impression: right mainstem intubation. ETT adjusted by staff in ICU Attempts: One Patient Tolerated: Well Complications: Other - upper lip abrasion Medical Decision Making Diagnostic Impression: Primary Impression: Altered mental status Additional Impression: Encephalopathy acute Last Vital Signs Date Time Temp Pulse Resp B/P (MAP) Pulse Ox O2 Delivery O2 Flow Rate FiO2 01/21/17 22:32 50 01/21/17 22:00 80 14 84/65 100 Mechanical Ventilator 01/21/17 20:00 95.0 01/21/17 17:00 Disposition: ADMITTED INPATIENT Condition: Serious Referrals: Rl Tee MD (PCP) Anish García Jan 21, 2017 22:46
[2017-01-22] VITALS (24 sets, daily range): BP systolic 79–191; BP diastolic 27–97
[2017-01-22] MEDS ORDERED: Vancomycin 750mg/NS 250ml IVPB ONE (06:00)
[2017-01-22 06:22] LABS: HEMATOCRIT 26.4 % (37.0-47.0); HEMOGLOBIN 8.1 G/DL (12.0-16.0); MEAN CORPUSCULAR VOLUME 106 FL (80-99); PLATELET COUNT 37 K/UL (150-450); RED CELL DISTRIBUTION WIDTH 16.7 % (11.6-14.8); WHITE BLOOD COUNT 11.5 K/UL (4.8-10.8)
[2017-01-22] MEDS ORDERED: Morphine Sulfate 4mg/ml Inj IVP PRN (06:45)
[2017-01-22] MEDS ORDERED: LORazepam Inj 2mg/ml 1ml IV PRN (06:45)
[2017-01-22 06:46] LABS: ALANINE AMINOTRANSFERASE 13 U/L (3-33); ALBUMIN 2.2 g/dL (3.5-5.2); ALBUMIN/GLOBULIN RATIO 0.5 (1.0-2.7); ALKALINE PHOSPHATASE 147 U/L (35-104); ANION GAP 11 (5-15); ASPARTATE AMINO TRANSFERASE 43 U/L (5-40); BILIRUBIN,TOTAL 0.9 mg/dL (0.0-1.2); BLOOD UREA NITROGEN 37 mg/dL (7-23); CALCIUM 9.8 mg/dL (8.6-10.2); CARBON DIOXIDE 22 mEQ/L (20-30); CHLORIDE 125 mEQ/L (98-107); CREATININE 2.5 mg/dL (0.5-0.9); PHOSPHORUS 3.2 mg/dL (2.5-4.8); POTASSIUM 4.8 mEQ/L (3.4-4.9); SODIUM 158 mEQ/L (135-145)
[2017-01-22] MEDS: NovoLOG Insulin Flexpen SUBQ SCH ×4 (06:48→23:41)
[2017-01-22] MEDS ORDERED: Sertraline 50mg tab ORAL SCH (09:00)
[2017-01-22] MEDS ORDERED: Amikacin Rx to dose MISC ONE (09:15)
--- NOTE | 2017-01-22 09:20 | Infectious Diseases Prog Note ---
Assessment/Plan Assessment/Plan Assesment: Encephalopathy- possibly multifactorial- hepatic encephalopathy, infection- worsening now due to hypercapnea (transferrd to ICU 01/21), on bipap> intubated- r/o PNA -CXR : Cardiomegaly with evidence of congestive heart failure Probable MDR UTI, pyuria, on Tx -u/a 01/16 WBC too many to count,nit neg ,leuk est +3; UCx x3 grew >100K MDR A.baumani complex (S. tigecycline/Minocycline, Polymixin B/Colistin), >100K PsA (S. Cefepime, Zosyn; R Cipro/Levo); a prior isolated on a ucx from the same day isolated MDR PsA (I. Cefepime, R ceftzadime, Meropenem; S. Tygecicine, amikacin) -renal u/s: Nondiagnostic exam 04/23 MRSA bacteremia- ?source, r/o endocarditis -01/16 04/23 BCx S. aureus (sensi pending), repeat Bcx 01/19 NTD -TTE (limited study): No aortic regurgitation.Trace mitral regurgitation.Mitral diastolic velocities suggest reduced left ventricular relaxation c/w diastolic dysfunction grade 1.Moderate tricuspid regurgitation. RAMYA on CKD, worsening Afebrile, no leukocytosis> hypothermic Cirrhosis Anemia & thrombocytopenia DM type 2 Morbid obesity PLAN: -Will add a one time dose Amikacin given resp decompensation -repeat infectious w/u: u/a with reflex, bcx, sp cx -Continue Cefepime #6/7 for PsA and Minocycline for MDR ABC #5/7 for UTI tx -Continue IV Vancomycin #4 For MRSA bacteremia -s/p 3d IV vanco 01/18 -if febrile, persistent bacteremia, will need NAM to evaluate for endocarditis ( TTE was limited) -Monitor CBC/BMP, temperatures Discussed with RN Subjective Allergies: Coded Allergies: PENICILLINS (Unverified Allergy, Unknown, 03/22/15) Subjective now intubated Hypothermic worsenign Cr mild leukocytosis to 11.5 repeat Bcx NTD CXR with CHF Objective Vital Signs Last 24 Hour Vital Signs Date Time Temp Pulse Resp B/P (MAP) Pulse Ox O2 Delivery O2 Flow Rate FiO2 01/22/17 08:00 94.2 68 18 92/60 100 Mechanical Ventilator 30 01/22/17 08:00 30 10/5/17 07:23 75 18 30 01/22/17 07:00 70 18 79/40 100 Mechanical Ventilator 30 01/22/17 06:00 74 18 95/34 100 Mechanical Ventilator 30 01/22/17 05:00 78 18 89/27 100 Mechanical Ventilator 30 01/22/17 04:31 77 18 30 01/22/17 04:00 30 01/22/17 04:00 97.2 76 18 85/46 100 Mechanical Ventilator 30 01/22/17 03:00 75 18 86/31 100 Mechanical Ventilator 50 01/22/17 02:49 73 18 30 01/22/17 02:00 74 18 96/49 100 Mechanical Ventilator 50 01/22/17 01:00 73 18 102/45 100 Mechanical Ventilator 50 01/22/17 00:59 72 18 30 01/22/17 00:00 97.0 72 18 104/61 100 Mechanical Ventilator 50 01/21/17 23:30 40 01/21/17 23:00 75 14 97/28 100 Mechanical Ventilator 50 01/21/17 22:55 82 18 50 01/21/17 22:32 50 01/21/17 22:00 80 14 84/65 100 Mechanical Ventilator 50 01/21/17 22:00 82 20 50 01/21/17 22:00 50 01/21/17 21:40 50 01/21/17 21:00 50 01/21/17 21:00 85 14 102/50 100 Bi-pap 50 01/21/17 20:43 90 20 99 Facial 40 01/21/17 20:00 95.0 89 13 113/42 100 Bi-pap 50 01/21/17 20:00 99 40 01/21/17 19:01 94 16 Bi-pap 50 01/21/17 19:00 88 17 97/35 100 Bi-pap 50 01/21/17 19:00 94 16 100 Facial 50 01/21/17 18:00 89 13 117/44 100 Bi-pap 50 01/21/17 17:39 87 18 100 Facial 50 01/21/17 17:00 83 13 118/42 100 Bi-pap 50 01/21/17 17:00 50 01/21/17 16:00 96.0 85 13 99/48 100 Simple Mask 8.0 01/21/17 14:00 81 14 91/29 100 Simple Mask 8.0 01/21/17 13:00 80 17 85/31 100 Simple Mask 8.0 01/21/17 12:00 98.2 84 20 116/65 99 Room Air 3.0 01/21/17 12:00 84 14 84/21 100 Simple Mask 8.0 01/21/17 11:30 93.5 83 16 156/90 100 Simple Mask 8.0 Height (Feet): 5 Height (Inches): 6.00 Weight (Pounds): 250 Objective HEENT: No pale conjunctivae. No icterus.BIpap mask on place NECK: No lymphadenopathy. CHEST: coarse breath sounds HEART: S1 and S2. ABDOMEN: Soft and obese. EXTREMITIES: No cyanosis. NEUROLOGIC: lethargic. Skin: no rashes Microbiology Date/Time Source Procedure Growth Status 01/19/17 15:00 Blood Blood Culture - Preliminary NO GROWTH AFTER 48 HOURS Resulted 01/19/17 15:00 Blood Blood Culture - Preliminary NO GROWTH AFTER 48 HOURS Resulted Laboratory Tests Test 01/21/17 14:11 01/21/17 16:30 01/21/17 16:50 01/21/17 23:00 Arterial Blood pH 7.105 (7.350-7.450) 7.073 (7.350-7.450) 7.255 (7.350-7.450) Arterial Blood Partial Pressure CO2 81.8 mmHg (35.0-45.0) *H 85.9 mmHg (35.0-45.0) *H 44.5 mmHg (35.0-45.0) Arterial Blood Partial Pressure O2 252.7 mmHg (75.0-100.0) H 213.9 mmHg (75.0-100.0) H 118.9 mmHg (75.0-100.0) H Arterial Blood HCO3 25.1 mmol/L (22.0-26.0) 24.5 mmol/L (22.0-26.0) 19.3 mmol/L (22.0-26.0) L Arterial Blood Oxygen Saturation 99.7 % (92.0-98.0) H 98.5 % (92.0-98.0) H 98.0 % (92.0-98.0) Arterial Blood Base Excess -5.1 -6.4 -7.4 Bon Test Positive Positive Positive Random Vancomycin Level 20.6 ug/mL Test 01/22/17 05:00 White Blood Count 11.5 K/UL (4.8-10.8) H Red Blood Count 2.50 M/UL (4.20-5.40) L Hemoglobin 8.1 G/DL (12.0-16.0) L Hematocrit 26.4 % (37.0-47.0) L Mean Corpuscular Volume 106 FL (80-99) H Mean Corpuscular Hemoglobin 32.5 PG (27.0-31.0) H Mean Corpuscular Hemoglobin Concent 30.9 G/DL (32.0-36.0) L Red Cell Distribution Width 16.7 % (11.6-14.8) H Platelet Count 37 K/UL (150-450) L Mean Platelet Volume 10.8 FL (6.5-10.1) H Neutrophils (%) (Auto) % (45.0-75.0) Lymphocytes (%) (Auto) % (20.0-45.0) Monocytes (%) (Auto) % (1.0-10.0) Eosinophils (%) (Auto) % (0.0-3.0) Basophils (%) (Auto) % (0.0-2.0) Differential Total Cells Counted 100 Neutrophils % (Manual) 87 % (45-75) H Lymphocytes % (Manual) 9 % (20-45) L Monocytes % (Manual) 4 % (1-10) Eosinophils % (Manual) 0 % (0-3) Basophils % (Manual) 0 % (0-2) Band Neutrophils 0 % (0-8) Platelet Estimate Decreased L Platelet Morphology Normal Hypochromasia 1+ Anisocytosis 1+ Macrocytosis 1+ Sodium Level 158 mEQ/L (135-145) H Potassium Level 4.8 mEQ/L (3.4-4.9) Chloride Level 125 mEQ/L (98-107) H Carbon Dioxide Level 22 mEQ/L (20-30) Anion Gap 11 (5-15) Blood Urea Nitrogen 37 mg/dL (7-23) H Creatinine 2.5 mg/dL (0.5-0.9) H Estimat Glomerular Filtration Rate mL/min (>60) Glucose Level 207 mg/dL (74-106) H Calcium Level 9.8 mg/dL (8.6-10.2) Phosphorus Level 3.2 mg/dL (2.5-4.8) Magnesium Level 1.8 mg/dL (1.7-2.5) Total Bilirubin 0.9 mg/dL (0.0-1.2) Aspartate Amino Transf (AST/SGOT) 43 U/L (5-40) H Alanine Aminotransferase (ALT/SGPT) 13 U/L (3-33) Alkaline Phosphatase 147 U/L (35-104) H Total Protein 6.2 g/dL (6.6-8.7) L Albumin 2.2 g/dL (3.5-5.2) L Globulin 4.0 g/dL Albumin/Globulin Ratio 0.5 (1.0-2.7) L Current Medications Medications (Trade) Dose Ordered Sig/Pavel Route PRN Reason Start Time Stop Time Status Last Admin Dose Admin Acetaminophen (Tylenol) 650 mg Q4H PRN ORAL T>100.5 01/21/17 14:30 02/15/17 14:29 Albumin Human 500 ml @ 0 mls/hr Q0M ONCE IV 01/22/17 09:30 01/22/17 09:31 Albuterol/ Ipratropium (DuoNeb 0.5-3(2.5)mg/3ml) 3 ml Q4H PRN HHN Shortness of Breath 01/21/17 14:30 01/28/17 14:29 Cefepime HCl 1 gm/ Dextrose 55 ml @ 110 mls/hr Q24H IVPB 01/21/17 15:00 01/24/17 14:59 01/21/17 16:59 Clotrimazole (Lotrimin) 1 applic EVERY 12 HOURS TOPIC 01/21/17 21:00 02/18/17 13:59 01/21/17 20:36 Dextrose 1,000 ml @ 100 mls/hr Q10H IV 01/22/17 09:30 02/21/17 09:29 Dextrose (Dextrose 50%) STAT PRN IV Hypoglycemia 01/21/17 14:30 02/17/17 14:29 Insulin Aspart (NovoLOG) EVERY 6 HOURS SUBQ 01/22/17 12:00 02/15/17 16:29 Lactulose (Cephulac) 10 gm THREE TIMES A DAY ORAL 01/21/17 18:00 02/18/17 12:59 01/21/17 18:12 Lorazepam (Ativan 2mg/ml 1ml) 2 mg Q4H PRN IV For Anxiety 01/22/17 06:45 01/29/17 06:44 Minocycline HCl (Minocin) 100 mg Q12HR ORAL 01/21/17 21:00 01/25/17 12:29 01/21/17 20:34 Morphine Sulfate (Morphine Sulfate) 4 mg Q4H PRN IVP For Pain 01/22/17 06:45 01/29/17 06:44 Nitroglycerin (Ntg) 0.4 mg Q5MIN X 3 DOSES PRN SL Prn Chest Pain 01/21/17 14:30 02/15/17 14:29 Olanzapine (ZyPREXA) 2.5 mg BEDTIME ORAL 01/21/17 21:00 02/17/17 20:59 01/21/17 20:34 Ondansetron HCl (Zofran) 4 mg Q6H PRN IVP Nausea & Vomiting 01/21/17 14:30 02/15/17 14:29 Pantoprazole (Protonix) 40 mg EVERY 12 HOURS IVP 01/21/17 21:00 02/20/17 20:59 01/21/17 20:34 Polyethylene Glycol (Miralax) 17 gm DAILYPRN PRN ORAL Constipation 01/21/17 14:00 02/17/17 13:59 Rifaximin (Xifaxan) 550 mg EVERY 12 HOURS ORAL 01/21/17 21:00 01/23/17 20:59 01/21/17 20:34 Sertraline HCl (Zoloft) 50 mg DAILY ORAL 01/22/17 09:00 02/16/17 08:59 Vancomycin HCl (Vanco rx to dose) 1 ea DAILY PRN MISC Per rx protocol 01/22/17 09:00 02/18/17 11:44 Nereyda Monroe M.D. Jan 22, 2017 09:20
[2017-01-22] MEDS: Pantoprazole Inj IVP SCH ×2 (09:43→20:31)
[2017-01-22] MEDS: Minocycline HCl 50mg cap ORAL SCH ×2 (09:43→20:31)
[2017-01-22] MEDS: Lactulose 10gm/15ml UDC ORAL SCH ×3 (09:43→17:09)
--- NOTE | 2017-01-22 10:21 | Pulmonolgy Critical Care Note ---
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 Respiratory: monitor respiratory rate, adjust FIO2, ABG Cardiac: continue to monitor HR/BP Renal: F/U I&O, keep IV fluid Infectious Disease: check cultures, continue antibiotics Gastrointestinal: continue feedings/current rate Endocrine: monitor blood sugar Hematologic: monitor H/H, transfuse if hgb<8.5 Neurologic: PRN Ativan, PRN Morphine, keep patient comfortable Affect: PRN ativan Disposition: keep in ICU Notes Reviewed: remote sensing scientist, renal Discussed with: nurses, consultants, correctional case managerproduct design manager - Objective Last 24 Hour Vital Signs Date Time Temp Pulse Resp B/P (MAP) Pulse Ox O2 Delivery O2 Flow Rate FiO2 01/22/17 10:00 91 13 119/97 100 Mechanical Ventilator 30 01/22/17 09:22 64 18 30 01/22/17 09:00 76 18 114/51 100 Mechanical Ventilator 30 01/22/17 08:00 94.2 68 18 92/60 100 Mechanical Ventilator 30 01/22/17 08:00 30 01/22/17 07:23 75 18 30 01/22/17 07:00 70 18 79/40 100 Mechanical Ventilator 30 01/22/17 06:00 74 18 95/34 100 Mechanical Ventilator 30 01/22/17 05:00 78 18 89/27 100 Mechanical Ventilator 30 01/22/17 04:31 77 18 30 01/22/17 04:00 30 01/22/17 04:00 97.2 76 18 85/46 100 Mechanical Ventilator 30 01/22/17 03:00 75 18 86/31 100 Mechanical Ventilator 50 01/22/17 02:49 73 18 30 01/22/17 02:00 74 18 96/49 100 Mechanical Ventilator 50 01/22/17 01:00 73 18 102/45 100 Mechanical Ventilator 50 01/22/17 00:59 72 18 30 01/22/17 00:00 97.0 72 18 104/61 100 Mechanical Ventilator 50 01/21/17 23:30 40 01/21/17 23:00 75 14 97/28 100 Mechanical Ventilator 50 01/21/17 22:55 82 18 50 01/21/17 22:32 50 01/21/17 22:00 80 14 84/65 100 Mechanical Ventilator 50 01/21/17 22:00 82 20 50 01/21/17 22:00 50 01/21/17 21:40 50 01/21/17 21:00 50 01/21/17 21:00 85 14 102/50 100 Bi-pap 50 01/21/17 20:43 90 20 99 Facial 40 01/21/17 20:00 95.0 89 13 113/42 100 Bi-pap 50 01/21/17 20:00 99 40 01/21/17 19:01 94 16 Bi-pap 50 01/21/17 19:00 88 17 97/35 100 Bi-pap 50 01/21/17 19:00 94 16 100 Facial 50 01/21/17 18:00 89 13 117/44 100 Bi-pap 50 01/21/17 17:39 87 18 100 Facial 50 01/21/17 17:00 83 13 118/42 100 Bi-pap 50 01/21/17 17:00 50 01/21/17 16:00 96.0 85 13 99/48 100 Simple Mask 8.0 01/21/17 14:00 81 14 91/29 100 Simple Mask 8.0 01/21/17 13:00 80 17 85/31 100 Simple Mask 8.0 01/21/17 12:00 98.2 84 20 116/65 99 Room Air 3.0 01/21/17 12:00 84 14 84/21 100 Simple Mask 8.0 01/21/17 11:30 93.5 83 16 156/90 100 Simple Mask 8.0 Status: sedated Condition: critical HEENT: atraumatic Neck: full ROM Heart: HR/BP stable, HR/BP unstable Abdomen: soft, non-tender, feeding tube Extremities: edema Decubiti: location Micro: Microbiology Date/Time Source Procedure Growth Status 01/19/17 15:00 Blood Blood Culture - Preliminary NO GROWTH AFTER 48 HOURS Resulted 01/19/17 15:00 Blood Blood Culture - Preliminary NO GROWTH AFTER 48 HOURS Resulted Accucheck: 166 Critical Care - Subjective ROS Limited/Unobtainable: No ICU Day: 2 Intubation Day: 2 Interval Events: pt got intubated last night FI02: 30 Vent Support Breath Rate: 18 Vent Support Mode: AC Vent Tidal Volume: 600 Sputum Amount: Scant PEEP: 0.0 PIP: 32 I&O: Intake and Output 01/22/17 01/23/17 19:00 07:00 Output Total 5 ml Balance -5 ml Output Urine Total 5 ml CXR: pulmonary edema ET-Tube: 7.0 ET Position: 21 Labs: Laboratory Tests Test 01/21/17 14:11 01/21/17 16:30 01/21/17 16:50 01/21/17 23:00 Arterial Blood pH 7.105 (7.350-7.450) 7.073 (7.350-7.450) 7.255 (7.350-7.450) Arterial Blood Partial Pressure CO2 81.8 mmHg (35.0-45.0) *H 85.9 mmHg (35.0-45.0) *H 44.5 mmHg (35.0-45.0) Arterial Blood Partial Pressure O2 252.7 mmHg (75.0-100.0) H 213.9 mmHg (75.0-100.0) H 118.9 mmHg (75.0-100.0) H Arterial Blood HCO3 25.1 mmol/L (22.0-26.0) 24.5 mmol/L (22.0-26.0) 19.3 mmol/L (22.0-26.0) L Arterial Blood Oxygen Saturation 99.7 % (92.0-98.0) H 98.5 % (92.0-98.0) H 98.0 % (92.0-98.0) Arterial Blood Base Excess -5.1 -6.4 -7.4 Bon Test Positive Positive Positive Random Vancomycin Level 20.6 ug/mL Test 01/22/17 05:00 01/22/17 09:50 White Blood Count 11.5 K/UL (4.8-10.8) H Red Blood Count 2.50 M/UL (4.20-5.40) L Hemoglobin 8.1 G/DL (12.0-16.0) L Hematocrit 26.4 % (37.0-47.0) L Mean Corpuscular Volume 106 FL (80-99) H Mean Corpuscular Hemoglobin 32.5 PG (27.0-31.0) H Mean Corpuscular Hemoglobin Concent 30.9 G/DL (32.0-36.0) L Red Cell Distribution Width 16.7 % (11.6-14.8) H Platelet Count 37 K/UL (150-450) L Mean Platelet Volume 10.8 FL (6.5-10.1) H Neutrophils (%) (Auto) % (45.0-75.0) Lymphocytes (%) (Auto) % (20.0-45.0) Monocytes (%) (Auto) % (1.0-10.0) Eosinophils (%) (Auto) % (0.0-3.0) Basophils (%) (Auto) % (0.0-2.0) Differential Total Cells Counted 100 Neutrophils % (Manual) 87 % (45-75) H Lymphocytes % (Manual) 9 % (20-45) L Monocytes % (Manual) 4 % (1-10) Eosinophils % (Manual) 0 % (0-3) Basophils % (Manual) 0 % (0-2) Band Neutrophils 0 % (0-8) Platelet Estimate Decreased L Platelet Morphology Normal Hypochromasia 1+ Anisocytosis 1+ Macrocytosis 1+ Sodium Level 158 mEQ/L (135-145) H Potassium Level 4.8 mEQ/L (3.4-4.9) Chloride Level 125 mEQ/L (98-107) H Carbon Dioxide Level 22 mEQ/L (20-30) Anion Gap 11 (5-15) Blood Urea Nitrogen 37 mg/dL (7-23) H Creatinine 2.5 mg/dL (0.5-0.9) H Estimat Glomerular Filtration Rate mL/min (>60) Glucose Level 207 mg/dL (74-106) H Calcium Level 9.8 mg/dL (8.6-10.2) Phosphorus Level 3.2 mg/dL (2.5-4.8) Magnesium Level 1.8 mg/dL (1.7-2.5) Total Bilirubin 0.9 mg/dL (0.0-1.2) Aspartate Amino Transf (AST/SGOT) 43 U/L (5-40) H Alanine Aminotransferase (ALT/SGPT) 13 U/L (3-33) Alkaline Phosphatase 147 U/L (35-104) H Total Protein 6.2 g/dL (6.6-8.7) L Albumin 2.2 g/dL (3.5-5.2) L Globulin 4.0 g/dL Albumin/Globulin Ratio 0.5 (1.0-2.7) L Arterial Blood pH 7.394 (7.350-7.450) Arterial Blood Partial Pressure CO2 32.6 mmHg (35.0-45.0) L Arterial Blood Partial Pressure O2 78.9 mmHg (75.0-100.0) Arterial Blood HCO3 19.5 mmol/L (22.0-26.0) L Arterial Blood Oxygen Saturation 95.9 % (92.0-98.0) Arterial Blood Base Excess -4.8 Bon Test Positive DIONI TRIANA Jan 22, 2017 10:21
--- NOTE | 2017-01-22 10:39 | Wound Care Consultation ---
Wound Assessment Wound Assessment : Wound Number: 1 Wound Present on Admission: Yes New Wound: No Status Change of Wound: No Wound Location Body Site Modif: left, right Wound Location Body Site: axilla - folds Wound Type: other - intertrigo rash Callie Test: Does not Callie Percent of Wound [place]/Red: 100 Wound Drainage Amount: None Wound Drainage Odor: None/Absent Tissue Surrounding Wound: Erythemic Wound General Appearance: Reddened, Open to air Wound Comment #1 bilateral axilla folds intertrigo rash. Recommendation -Local wound care as ordered. -Keep skin clean and dry. -Optimize nutrition. - Turn and reposition. -Assess and notify MD of any further change in skin noted. MILLA RUTLEDGE Jan 22, 2017 10:39
--- NOTE | 2017-01-22 10:39 | Wound Care Consultation ---
Wound Assessment Wound Assessment : Wound Number: 1 Wound Present on Admission: Yes New Wound: No Status Change of Wound: No Wound Location Body Site Modif: left, right Wound Location Body Site: axilla - folds Wound Type: other - intertrigo rash Callie Test: Does not Callie Percent of Wound [place]/Red: 100 Wound Drainage Amount: None Wound Drainage Odor: None/Absent Tissue Surrounding Wound: Erythemic Wound General Appearance: Reddened, Open to air Wound Comment #1 bilateral axilla folds intertrigo rash. Recommendation -Local wound care as ordered. -Keep skin clean and dry. -Optimize nutrition. - Turn and reposition. -Assess and notify MD of any further change in skin noted. MILLA RUTLEDGE Jan 22, 2017 10:39
--- NOTE | 2017-01-22 10:39 | Wound Care Consultation ---
Wound Assessment Wound Assessment : Wound Number: 1 Wound Present on Admission: Yes New Wound: No Status Change of Wound: No Wound Location Body Site Modif: left, right Wound Location Body Site: axilla - folds Wound Type: other - intertrigo rash Callie Test: Does not Callie Percent of Wound [place]/Red: 100 Wound Drainage Amount: None Wound Drainage Odor: None/Absent Tissue Surrounding Wound: Erythemic Wound General Appearance: Reddened, Open to air Wound Comment #1 bilateral axilla folds intertrigo rash. Recommendation -Local wound care as ordered. -Keep skin clean and dry. -Optimize nutrition. - Turn and reposition. -Assess and notify MD of any further change in skin noted. MILLA RUTLEDGE Jan 22, 2017 10:39
--- NOTE | 2017-01-22 10:53 | Wound Nurse Progress Note ---
Wound RN Progress Note Wound Consult #1 Sacral scattered stage II pressure ulcer- no further deterioration present , continue local wound care- offload , keep clean and dry. wound beds remain 100% pink. #2 Left posterior upper thigh stage II pressure ulcer-no further deterioration present , continue local wound care- offload , keep clean and dry.wound beds remain 100% pink. #3 Left ischial tuberosity stage I pressure ulcer-no further deterioration present , continue local wound care- offload , keep clean and dry. sites remain with non-blanchable redness #4 Right ischial tuberosity stage I pressure ulcer-no further deterioration present , continue local wound care- offload , keep clean and dry.sites remain with non-blanchable rednes #5 Chemical burn on perineal area - keep clean and dry, local wound care as ordered. #6 Chemical burn on abdominal folds and breast folds-keep clean and dry, local wound care as ordered. #7 bilateral axilla fold intertrigo rash- keep clean and dry , local wound care as ordered. Reassessed skin no further deterioration present sacral area remains as scattered stage 2, left posterior thigh remains as stage 2,left ischial tuberosity remains as stage 1-non blanchable redness , right ischial tuberosity remains as stage 7-[id number] redness, sites remain as admitted stage however upon reassessment noted increase in redness to sites due to chemical burn present on area. keep perineal, mid buttocks area clean and dry, provide gentle kateryna care, provide local wound care as ordered.offload affected sites. Recommendation -Local wound care per protocol -Provide gentle kateryna care. -Avoid shear and friction. -Keep clean and dry -Optimize nutrition -Offload both heels -Low air loss SPR mattress -Heel protector on both heels -Turn and reposition -Assess and f/u accordingly for any changes MILLA RUTLEDGE Jan 22, 2017 10:53
[2017-01-22] MEDS ORDERED: Amikacin 600 MG in NS 110 ML IV ONE (11:00)
[2017-01-22 11:25] LABS: APPEARANCE,URINE SLIGHTLY CLOUDY; BILIRUBIN, URINE 1+ (NEGATIVE); GLUCOSE, URINE (UA) NEGATIVE (NEGATIVE); KETONES,URINE 1+ (NEGATIVE); LEUKOCYTE ESTERASE ,URINE 3+ (NEGATIVE); NITRITE,URINE NEGATIVE (NEGATIVE); PH,URINE 5 (4.5-8.0); PROTEIN,URINE 3+ (NEGATIVE); UROBILINOGEN,URINE NORMAL MG/DL (0.0-1.0)
--- NOTE | 2017-01-22 11:26 | Diagnostic Imaging Report ---
Indication: Dyspnea Comparison: 01/21/17 at an earlier time A single view chest radiograph was obtained. Findings: Interstitial edema demonstrated. Tubes and lines are stable. Right jugular central venous catheter again noted. Endotracheal tube has been pulled up and is in better position. Impression: Endotracheal tube now good position. No change otherwise
--- NOTE | 2017-01-22 11:27 | Diagnostic Imaging Report ---
Indication: Patient requires central venous access. Findings: After the indications, procedure, risks, complications, and alternatives of the procedure were explained, written informed consent was obtained. The neck was prepped with alcohol. All elements of maximal sterile barrier technique were followed including usage of a cap, mask, sterile gown, sterile gloves, hand hygiene and a large sterile sheet. 1% lidocaine was used to anesthetize the skin. Sonographic evaluation of the neck was performed demonstrating a patent and compressible vein. Access was obtained under real-time ultrasound guidance using an 18 gauge needle and a digital image was saved in archive. An 035 wire was then advanced into the vein. Needle exchanged or a dilator. A temporary hemodialysis catheter was then advanced over the wire. Wire was removed. Catheter was secured to the skin using 2-0 Prolene suture. Both ports aspirate and flush easily. The procedure was performed at the bedside. Final position of the catheter shows the tip in the right atrium. Impression: Successful placement of right jugular central venous catheter.
--- NOTE | 2017-01-22 11:32 | Diagnostic Imaging Report ---
Indication: Dyspnea Comparison: None A single view chest radiograph was obtained. Findings: Right mainstem intubation noted. Interstitial edema is present slightly improved since the last exam, 13:49. Right jugular line is in good position. No pneumothorax seen. Heart remains enlarged. NG tube is satisfactory in position. Impression: Right mainstem intubation. Other tubes and lines satisfactory.
[2017-01-22 12:01] LABS: COLOR,URINE YELLOW
[2017-01-22] MEDS: Nystatin Powder 100,000 units/gm 15gm TOPIC SCH ×2 (13:00→17:09)
--- NOTE | 2017-01-22 13:11 | General Progress Note ---
Assessment/Plan Status: deteriorating Status Jill zaman Assessment/Plan Acute on chronic renal failure- multifactorial CHF DM HTN Sepsis Now: Acute respiratory failure- Intubated - Altered level of consciousness - ESBL (extended spectrum beta-lactamase) producing bacteria infection - Cardiomegaly - DM (diabetes mellitus) - HTN (hypertension) - UTI (urinary tract infection) - Anemia - High Cholestrol - COPD - YELENA - Fatty liver Plan: D5W 100 cc hour Optimize cardiac and pulmonary status 2D echo results noted avoid nephrotoxics monitor renal parameters Urine studies per orders Subjective ROS Limited/Unobtainable: Yes Allergies: Coded Allergies: PENICILLINS (Unverified Allergy, Unknown, 03/22/15) Objective Last 24 Hour Vital Signs Date Time Temp Pulse Resp B/P (MAP) Pulse Ox O2 Delivery O2 Flow Rate FiO2 01/22/17 12:55 69 18 30 01/22/17 12:00 30 01/22/17 12:00 96.0 69 18 117/46 100 Mechanical Ventilator 30 01/22/17 11:10 79 18 30 01/22/17 11:00 79 18 143/92 100 Mechanical Ventilator 30 01/22/17 10:00 91 13 119/97 100 Mechanical Ventilator 30 01/22/17 09:22 64 18 30 01/22/17 09:00 76 18 114/51 100 Mechanical Ventilator 30 01/22/17 08:00 94.2 68 18 92/60 100 Mechanical Ventilator 30 01/22/17 08:00 30 01/22/17 07:23 75 18 30 01/22/17 07:00 70 18 79/40 100 Mechanical Ventilator 30 01/22/17 06:00 74 18 95/34 100 Mechanical Ventilator 30 01/22/17 05:00 78 18 89/27 100 Mechanical Ventilator 30 01/22/17 04:31 77 18 30 01/22/17 04:00 30 01/22/17 04:00 97.2 76 18 85/46 100 Mechanical Ventilator 30 01/22/17 03:00 75 18 86/31 100 Mechanical Ventilator 50 01/22/17 02:49 73 18 30 01/22/17 02:00 74 18 96/49 100 Mechanical Ventilator 50 01/22/17 01:00 73 18 102/45 100 Mechanical Ventilator 50 01/22/17 00:59 72 18 30 01/22/17 00:00 97.0 72 18 104/61 100 Mechanical Ventilator 50 01/21/17 23:30 40 01/21/17 23:00 75 14 97/28 100 Mechanical Ventilator 50 01/21/17 22:55 82 18 50 01/21/17 22:32 50 01/21/17 22:00 80 14 84/65 100 Mechanical Ventilator 50 01/21/17 22:00 82 20 50 01/21/17 22:00 50 01/21/17 21:40 50 01/21/17 21:00 50 01/21/17 21:00 85 14 102/50 100 Bi-pap 50 01/21/17 20:43 90 20 99 Facial 40 01/21/17 20:00 95.0 89 13 113/42 100 Bi-pap 50 01/21/17 20:00 99 40 01/21/17 19:01 94 16 Bi-pap 50 01/21/17 19:00 88 17 97/35 100 Bi-pap 50 01/21/17 19:00 94 16 100 Facial 50 01/21/17 18:00 89 13 117/44 100 Bi-pap 50 01/21/17 17:39 87 18 100 Facial 50 01/21/17 17:00 83 13 118/42 100 Bi-pap 50 01/21/17 17:00 50 01/21/17 16:00 96.0 85 13 99/48 100 Simple Mask 8.0 01/21/17 14:00 81 14 91/29 100 Simple Mask 8.0 Intake and Output 01/22/17 01/23/17 19:00 07:00 Intake Total 185 ml Output Total 15 ml Balance 170 ml IV Total 175 ml Tube Feeding 10 ml Output Urine Total 15 ml Laboratory Tests 01/21/17 14:11: Arterial Blood pH 7.105*L, Arterial Blood Partial Pressure CO2 81.8*H, Arterial Blood Partial Pressure O2 252.7H, Arterial Blood HCO3 25.1, Arterial Blood Oxygen Saturation 99.7H, Arterial Blood Base Excess -5.1, Bon Test Positive 01/21/17 16:30: Arterial Blood pH 7.073*L, Arterial Blood Partial Pressure CO2 85.9*H, Arterial Blood Partial Pressure O2 213.9H, Arterial Blood HCO3 24.5, Arterial Blood Oxygen Saturation 98.5H, Arterial Blood Base Excess -6.4, Bon Test Positive 01/21/17 16:50: Random Vancomycin Level 20.6 01/21/17 23:00: Arterial Blood pH 7.255L, Arterial Blood Partial Pressure CO2 44.5, Arterial Blood Partial Pressure O2 118.9H, Arterial Blood HCO3 19.3L, Arterial Blood Oxygen Saturation 98.0, Arterial Blood Base Excess -7.4, Bon Test Positive 01/22/17 05:00: White Blood Count 11.5H, Red Blood Count 2.50L, Hemoglobin 8.1L, Hematocrit 26.4L, Mean Corpuscular Volume 106H, Mean Corpuscular Hemoglobin 32.5H, Mean Corpuscular Hemoglobin Concent 30.9L, Red Cell Distribution Width 16.7H, Platelet Count 37L, Mean Platelet Volume 10.8H, Neutrophils (%) (Auto) , Lymphocytes (%) (Auto) , Monocytes (%) (Auto) , Eosinophils (%) (Auto) , Basophils (%) (Auto) , Differential Total Cells Counted 100, Neutrophils % ( Manual) 87H, Lymphocytes % (Manual) 9L, Monocytes % (Manual) 4, Eosinophils % ( Manual) 0, Basophils % (Manual) 0, Band Neutrophils 0, Platelet Estimate DecreasedL, Platelet Morphology Normal, Hypochromasia 1+, Anisocytosis 1+, Macrocytosis 1+, Sodium Level 158H, Potassium Level 4.8, Chloride Level 125H, Carbon Dioxide Level 22, Anion Gap 11, Blood Urea Nitrogen 37H, Creatinine 2.5H , Estimat Glomerular Filtration Rate , Glucose Level 207H, Calcium Level 9.8, Phosphorus Level 3.2, Magnesium Level 1.8, Total Bilirubin 0.9, Aspartate Amino Transf (AST/SGOT) 43H, Alanine Aminotransferase (ALT/SGPT) 13, Alkaline Phosphatase 147H, Total Protein 6.2L, Albumin 2.2L, Globulin 4.0, Albumin/ Globulin Ratio 0.5L 01/22/17 09:50: Arterial Blood pH 7.394, Arterial Blood Partial Pressure CO2 32.6L, Arterial Blood Partial Pressure O2 78.9, Arterial Blood HCO3 19.5L, Arterial Blood Oxygen Saturation 95.9, Arterial Blood Base Excess -4.8, Bon Test Positive 01/22/17 11:00: Urine Color Yellow, Urine Appearance Slightly cloudy, Urine pH 5, Urine Specific [place] 1.020, Urine Protein 3+H, Urine Glucose (UA) Negative, Urine Ketones 1+H, Urine Occult Blood 5+H, Urine Nitrite Negative, Urine Bilirubin 1+H , Urine Ictotest Negative, Urine Urobilinogen Normal, Urine Leukocyte Esterase 3 +H, Urine RBC 5-10H, Urine WBC 30-40H, Urine Squamous Epithelial Cells Few, Urine Bacteria Few, Urine Yeast ModerateH Height (Feet): 5 Height (Inches): 6.00 Weight (Pounds): 250 EENT: other - intubated Cardiovascular: normal rate Respiratory/Chest: decreased breath sounds Abdomen: distended, other - obese Edema: 1+ Arm (L), 1+ Arm (R), 1+ Leg (L), 1+ Leg (R), 1+ Pedal (L), 1+ Pedal ( R), 1+ Generalized Objective no change ANDERS MOLINA Jan 22, 2017 13:11
[2017-01-22] MEDS ORDERED: Tubing IV Secondary IV ONE (14:39)
[2017-01-22] MEDS: Cefepime HCl 1 GM in D5W 55 ML IVPB SCH (15:00)
--- NOTE | 2017-01-22 15:18 | General Progress Note ---
Progress Note Progress Note d/w pts daughter Rolanda who agreed with DNR, She will d/w other family members about comfort care and terminal extubation. DIONI TRIANA Jan 22, 2017 15:18
--- NOTE | 2017-01-22 15:18 | General Progress Note ---
Progress Note Progress Note d/w pts daughter Rolanda who agreed with DNR, She will d/w other family members about comfort care and terminal extubation. DIONI TRINAA Jan 22, 2017 15:18
--- NOTE | 2017-01-22 15:55 | Internal Med Progress Note ---
Subjective Date of Service: Jan 22, 2017 Physician Name Katharina Pond Attending Physician Rl Tee MD Current Medications Medications (Trade) Dose Ordered Sig/Pavel Route PRN Reason Start Time Stop Time Status Last Admin Dose Admin Acetaminophen (Tylenol) 650 mg Q4H PRN ORAL T>100.5 01/21/17 14:30 02/15/17 14:29 Albuterol/ Ipratropium (DuoNeb 0.5-3(2.5)mg/3ml) 3 ml Q4H PRN HHN Shortness of Breath 01/21/17 14:30 01/28/17 14:29 Cefepime HCl 1 gm/ Dextrose 55 ml @ 110 mls/hr Q24H IVPB 01/21/17 15:00 01/24/17 14:59 01/21/17 16:59 Clotrimazole (Lotrimin) 1 applic EVERY 12 HOURS TOPIC 01/21/17 21:00 02/18/17 13:59 01/22/17 09:43 Dextrose 1,000 ml @ 100 mls/hr Q10H IV 01/22/17 09:30 02/21/17 09:29 01/22/17 09:58 Dextrose (Dextrose 50%) STAT PRN IV Hypoglycemia 01/21/17 14:30 02/17/17 14:29 Insulin Aspart (NovoLOG) EVERY 6 HOURS SUBQ 01/22/17 12:00 02/15/17 16:29 01/22/17 12:15 Lactulose (Cephulac) 10 gm THREE TIMES A DAY ORAL 01/21/17 18:00 02/18/17 12:59 01/22/17 12:16 Lorazepam (Ativan 2mg/ml 1ml) 2 mg Q4H PRN IV For Anxiety 01/22/17 06:45 01/29/17 06:44 Minocycline HCl (Minocin) 100 mg Q12HR ORAL 01/21/17 21:00 01/25/17 12:29 01/22/17 09:43 Morphine Sulfate (Morphine Sulfate) 4 mg Q4H PRN IVP For Pain 01/22/17 06:45 01/29/17 06:44 Nitroglycerin (Ntg) 0.4 mg Q5MIN X 3 DOSES PRN SL Prn Chest Pain 01/21/17 14:30 02/15/17 14:29 Nystatin (Nystop Powder) 1 applic THREE TIMES A DAY TOPIC 01/22/17 13:00 02/21/17 12:59 01/22/17 13:00 Ondansetron HCl (Zofran) 4 mg Q6H PRN IVP Nausea & Vomiting 01/21/17 14:30 02/15/17 14:29 Pantoprazole (Protonix) 40 mg EVERY 12 HOURS IVP 01/21/17 21:00 02/20/17 20:59 01/22/17 09:43 Polyethylene Glycol (Miralax) 17 gm DAILYPRN PRN ORAL Constipation 01/21/17 14:00 02/17/17 13:59 Rifaximin (Xifaxan) 550 mg EVERY 12 HOURS ORAL 01/21/17 21:00 01/23/17 20:59 01/22/17 09:43 Vancomycin HCl (Vanco rx to dose) 1 ea DAILY PRN MISC Per rx protocol 01/22/17 09:00 02/18/17 11:44 Allergies: Coded Allergies: PENICILLINS (Unverified Allergy, Unknown, 03/22/15) Subjective 76 YO F admitted with altered mental status. Now UTI and CHF. Intubated last evening for worsening respiratory failure. ICU . Cover for Int Nishant-Dr Tee. Objective Last Vital Signs Date Time Temp Pulse Resp B/P (MAP) Pulse Ox O2 Delivery O2 Flow Rate FiO2 01/22/17 15:00 82 18 120/57 97 Mechanical Ventilator 30 01/22/17 12:00 96.0 01/21/17 17:00 Laboratory Tests Test 01/21/17 16:30 01/21/17 16:50 01/21/17 23:00 01/22/17 05:00 Arterial Blood pH 7.073 (7.350-7.450) 7.255 (7.350-7.450) Arterial Blood Partial Pressure CO2 85.9 mmHg (35.0-45.0) *H 44.5 mmHg (35.0-45.0) Arterial Blood Partial Pressure O2 213.9 mmHg (75.0-100.0) H 118.9 mmHg (75.0-100.0) H Arterial Blood HCO3 24.5 mmol/L (22.0-26.0) 19.3 mmol/L (22.0-26.0) L Arterial Blood Oxygen Saturation 98.5 % (92.0-98.0) H 98.0 % (92.0-98.0) Arterial Blood Base Excess -6.4 -7.4 Bon Test Positive Positive Random Vancomycin Level 20.6 ug/mL White Blood Count 11.5 K/UL (4.8-10.8) H Red Blood Count 2.50 M/UL (4.20-5.40) L Hemoglobin 8.1 G/DL (12.0-16.0) L Hematocrit 26.4 % (37.0-47.0) L Mean Corpuscular Volume 106 FL (80-99) H Mean Corpuscular Hemoglobin 32.5 PG (27.0-31.0) H Mean Corpuscular Hemoglobin Concent 30.9 G/DL (32.0-36.0) L Red Cell Distribution Width 16.7 % (11.6-14.8) H Platelet Count 37 K/UL (150-450) L Mean Platelet Volume 10.8 FL (6.5-10.1) H Neutrophils (%) (Auto) % (45.0-75.0) Lymphocytes (%) (Auto) % (20.0-45.0) Monocytes (%) (Auto) % (1.0-10.0) Eosinophils (%) (Auto) % (0.0-3.0) Basophils (%) (Auto) % (0.0-2.0) Differential Total Cells Counted 100 Neutrophils % (Manual) 87 % (45-75) H Lymphocytes % (Manual) 9 % (20-45) L Monocytes % (Manual) 4 % (1-10) Eosinophils % (Manual) 0 % (0-3) Basophils % (Manual) 0 % (0-2) Band Neutrophils 0 % (0-8) Platelet Estimate Decreased L Platelet Morphology Normal Hypochromasia 1+ Anisocytosis 1+ Macrocytosis 1+ Sodium Level 158 mEQ/L (135-145) H Potassium Level 4.8 mEQ/L (3.4-4.9) Chloride Level 125 mEQ/L (98-107) H Carbon Dioxide Level 22 mEQ/L (20-30) Anion Gap 11 (5-15) Blood Urea Nitrogen 37 mg/dL (7-23) H Creatinine 2.5 mg/dL (0.5-0.9) H Estimat Glomerular Filtration Rate mL/min (>60) Glucose Level 207 mg/dL (74-106) H Calcium Level 9.8 mg/dL (8.6-10.2) Phosphorus Level 3.2 mg/dL (2.5-4.8) Magnesium Level 1.8 mg/dL (1.7-2.5) Total Bilirubin 0.9 mg/dL (0.0-1.2) Aspartate Amino Transf (AST/SGOT) 43 U/L (5-40) H Alanine Aminotransferase (ALT/SGPT) 13 U/L (3-33) Alkaline Phosphatase 147 U/L (35-104) H Total Protein 6.2 g/dL (6.6-8.7) L Albumin 2.2 g/dL (3.5-5.2) L Globulin 4.0 g/dL Albumin/Globulin Ratio 0.5 (1.0-2.7) L Test 01/22/17 09:50 01/22/17 11:00 Arterial Blood pH 7.394 (7.350-7.450) Arterial Blood Partial Pressure CO2 32.6 mmHg (35.0-45.0) L Arterial Blood Partial Pressure O2 78.9 mmHg (75.0-100.0) Arterial Blood HCO3 19.5 mmol/L (22.0-26.0) L Arterial Blood Oxygen Saturation 95.9 % (92.0-98.0) Arterial Blood Base Excess -4.8 Bon Test Positive Urine Color Yellow Urine Appearance Slightly cloudy Urine pH 5 (4.5-8.0) Urine Specific [place] 1.020 (1.005-1.035) Urine Protein 3+ (NEGATIVE) H Urine Glucose (UA) Negative (NEGATIVE) Urine Ketones 1+ (NEGATIVE) H Urine Occult Blood 5+ (NEGATIVE) H Urine Nitrite Negative (NEGATIVE) Urine Bilirubin 1+ (NEGATIVE) H Urine Ictotest Negative Urine Urobilinogen Normal MG/DL (0.0-1.0) Urine Leukocyte Esterase 3+ (NEGATIVE) H Urine RBC 5-10 /HPF (0 - 2) H Urine WBC 30-40 /HPF (0 - 2) H Urine Squamous Epithelial Cells Few /LPF (NONE/OCC) Urine Bacteria Few /HPF (NONE) Urine Yeast Moderate /HPF (NONE) H Intake and Output 01/22/17 01/23/17 19:00 07:00 Intake Total 615 ml Output Total 15 ml Balance 600 ml IV Total 575 ml Tube Feeding 40 ml Output Urine Total 15 ml Objective General Appearance: WD/WN, no apparent distress, moderate distress, obese EENT: PERRL/EOMI, normal ENT inspection Neck: non-tender, normal alignment, supple, normal inspection Cardiovascular: normal peripheral pulses, normal rate, regular rhythm, no gallop/murmur, no JVD Respiratory/Chest: Mechanical vent; chest wall non-tender, lungs with coarse upper air sounds, Bilat wheezes and rales, respiratory distress Abdomen: G-Tube; non tender, no organomegaly, no mass 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 Baumanii. See ID note. Continur Invanz per ID (2) CHF (congestive heart failure) Assessment & Plan: LVEF 60-65%. see cardiology note. (3) DM (diabetes mellitus) Assessment & Plan: Continue novolog sliding scale (4) Hypercholesteremia (5) HTN (hypertension) Assessment & Plan: Currently hypotensive. (6) Uncontrolled diabetes mellitus (7) Cirrhosis Assessment & Plan: see GI note. (8) Anemia (9) Altered mental status Assessment & Plan: Worsening. ICU status (10) Renal failure Assessment & Plan: See nephrology note. (11) Respiratory failure Assessment & Plan: Due to CHF. Cont mech vent per pulmonary. Continue antibiotic per ID Status: deteriorating Assessment/Plan Discussed with daughterBetsey @ bedside. KATHARINA POND Jan 22, 2017 15:54
--- NOTE | 2017-01-22 17:35 | Cardiac Electrophysiology PN ---
Assessment/Plan Assessment/Plan 1. Congestive heart failure with a very high brain natriuretic peptide. Echocardiogram showed ejection fraction of 60% to 65% with diastolic dysfunction. Her EKG also showed normal sinus rhythm with low voltage QRS. 2. Hypertension 3. Urinary tract infection. 4. Diabetes. 5. Hyperlipidemia. 6. Cirrhosis 7. Anemia with hemoglobin of 8. 8. Hypernatremia with NA 160 and renal failure. On D5w 100cc/hr. Down to 158 9. DNR and DNI DW RN Subjective Subjective In ICU on vent. No arrhythmias reported. DNR and DNI Objective Last 24 Hour Vital Signs Date Time Temp Pulse Resp B/P (MAP) Pulse Ox O2 Delivery O2 Flow Rate FiO2 01/22/17 16:51 86 18 30 01/22/17 16:00 30 01/22/17 16:00 96.0 85 18 152/36 97 Mechanical Ventilator 30 01/22/17 15:00 82 18 120/57 97 Mechanical Ventilator 30 01/22/17 14:49 81 18 30 01/22/17 14:00 65 18 104/45 97 Mechanical Ventilator 30 01/22/17 13:00 63 18 106/48 97 Mechanical Ventilator 30 01/22/17 12:55 69 18 30 01/22/17 12:00 30 01/22/17 12:00 96.0 69 18 117/46 100 Mechanical Ventilator 30 01/22/17 11:10 79 18 30 01/22/17 11:00 79 18 143/92 100 Mechanical Ventilator 30 01/22/17 10:00 91 13 119/97 100 Mechanical Ventilator 30 01/22/17 09:22 64 18 30 01/22/17 09:00 76 18 114/51 100 Mechanical Ventilator 30 01/22/17 08:00 94.2 68 18 92/60 100 Mechanical Ventilator 30 01/22/17 08:00 30 01/22/17 07:23 75 18 30 01/22/17 07:00 70 18 79/40 100 Mechanical Ventilator 30 01/22/17 06:00 74 18 95/34 100 Mechanical Ventilator 30 01/22/17 05:00 78 18 89/27 100 Mechanical Ventilator 30 01/22/17 04:31 77 18 30 01/22/17 04:00 30 01/22/17 04:00 97.2 76 18 85/46 100 Mechanical Ventilator 30 01/22/17 03:00 75 18 86/31 100 Mechanical Ventilator 50 01/22/17 02:49 73 18 30 01/22/17 02:00 74 18 96/49 100 Mechanical Ventilator 50 01/22/17 01:00 73 18 102/45 100 Mechanical Ventilator 50 01/22/17 00:59 72 18 30 01/22/17 00:00 97.0 72 18 104/61 100 Mechanical Ventilator 50 01/21/17 23:30 40 01/21/17 23:00 75 14 97/28 100 Mechanical Ventilator 50 01/21/17 22:55 82 18 50 01/21/17 22:32 50 01/21/17 22:00 80 14 84/65 100 Mechanical Ventilator 50 01/21/17 22:00 82 20 50 01/21/17 22:00 50 01/21/17 21:40 50 01/21/17 21:00 50 01/21/17 21:00 85 14 102/50 100 Bi-pap 50 01/21/17 20:43 90 20 99 Facial 40 01/21/17 20:00 95.0 89 13 113/42 100 Bi-pap 50 01/21/17 20:00 99 40 01/21/17 19:01 94 16 Bi-pap 50 01/21/17 19:00 88 17 97/35 100 Bi-pap 50 01/21/17 19:00 94 16 100 Facial 50 01/21/17 18:00 89 13 117/44 100 Bi-pap 50 01/21/17 17:39 87 18 100 Facial 50 Intake and Output 01/22/17 01/23/17 19:00 07:00 Intake Total 780 ml Output Total 15 ml Balance 765 ml IV Total 730 ml Tube Feeding 50 ml Output Urine Total 15 ml Laboratory Tests Test 01/21/17 23:00 01/22/17 05:00 01/22/17 09:50 01/22/17 11:00 Arterial Blood pH 7.255 (7.350-7.450) 7.394 (7.350-7.450) Arterial Blood Partial Pressure CO2 44.5 mmHg (35.0-45.0) 32.6 mmHg (35.0-45.0) L Arterial Blood Partial Pressure O2 118.9 mmHg (75.0-100.0) H 78.9 mmHg (75.0-100.0) Arterial Blood HCO3 19.3 mmol/L (22.0-26.0) L 19.5 mmol/L (22.0-26.0) L Arterial Blood Oxygen Saturation 98.0 % (92.0-98.0) 95.9 % (92.0-98.0) Arterial Blood Base Excess -7.4 -4.8 Bon Test Positive Positive White Blood Count 11.5 K/UL (4.8-10.8) H Red Blood Count 2.50 M/UL (4.20-5.40) L Hemoglobin 8.1 G/DL (12.0-16.0) L Hematocrit 26.4 % (37.0-47.0) L Mean Corpuscular Volume 106 FL (80-99) H Mean Corpuscular Hemoglobin 32.5 PG (27.0-31.0) H Mean Corpuscular Hemoglobin Concent 30.9 G/DL (32.0-36.0) L Red Cell Distribution Width 16.7 % (11.6-14.8) H Platelet Count 37 K/UL (150-450) L Mean Platelet Volume 10.8 FL (6.5-10.1) H Neutrophils (%) (Auto) % (45.0-75.0) Lymphocytes (%) (Auto) % (20.0-45.0) Monocytes (%) (Auto) % (1.0-10.0) Eosinophils (%) (Auto) % (0.0-3.0) Basophils (%) (Auto) % (0.0-2.0) Differential Total Cells Counted 100 Neutrophils % (Manual) 87 % (45-75) H Lymphocytes % (Manual) 9 % (20-45) L Monocytes % (Manual) 4 % (1-10) Eosinophils % (Manual) 0 % (0-3) Basophils % (Manual) 0 % (0-2) Band Neutrophils 0 % (0-8) Platelet Estimate Decreased L Platelet Morphology Normal Hypochromasia 1+ Anisocytosis 1+ Macrocytosis 1+ Sodium Level 158 mEQ/L (135-145) H Potassium Level 4.8 mEQ/L (3.4-4.9) Chloride Level 125 mEQ/L (98-107) H Carbon Dioxide Level 22 mEQ/L (20-30) Anion Gap 11 (5-15) Blood Urea Nitrogen 37 mg/dL (7-23) H Creatinine 2.5 mg/dL (0.5-0.9) H Estimat Glomerular Filtration Rate mL/min (>60) Glucose Level 207 mg/dL (74-106) H Calcium Level 9.8 mg/dL (8.6-10.2) Phosphorus Level 3.2 mg/dL (2.5-4.8) Magnesium Level 1.8 mg/dL (1.7-2.5) Total Bilirubin 0.9 mg/dL (0.0-1.2) Aspartate Amino Transf (AST/SGOT) 43 U/L (5-40) H Alanine Aminotransferase (ALT/SGPT) 13 U/L (3-33) Alkaline Phosphatase 147 U/L (35-104) H Total Protein 6.2 g/dL (6.6-8.7) L Albumin 2.2 g/dL (3.5-5.2) L Globulin 4.0 g/dL Albumin/Globulin Ratio 0.5 (1.0-2.7) L Urine Color Yellow Urine Appearance Slightly cloudy Urine pH 5 (4.5-8.0) Urine Specific [place] 1.020 (1.005-1.035) Urine Protein 3+ (NEGATIVE) H Urine Glucose (UA) Negative (NEGATIVE) Urine Ketones 1+ (NEGATIVE) H Urine Occult Blood 5+ (NEGATIVE) H Urine Nitrite Negative (NEGATIVE) Urine Bilirubin 1+ (NEGATIVE) H Urine Ictotest Negative Urine Urobilinogen Normal MG/DL (0.0-1.0) Urine Leukocyte Esterase 3+ (NEGATIVE) H Urine RBC 5-10 /HPF (0 - 2) H Urine WBC 30-40 /HPF (0 - 2) H Urine Squamous Epithelial Cells Few /LPF (NONE/OCC) Urine Bacteria Few /HPF (NONE) Urine Yeast Moderate /HPF (NONE) H Objective HEAD AND NECK: Shows no JVD. LUNGS: Coarse rhonchi CARDIOVASCULAR: Regular S1 and S2 with no gallop or murmur. ABDOMEN: Soft and nontender and obese. EXTREMITIES: 2+ pitting edema. DEAN SHAW Jan 22, 2017 17:35
--- NOTE | 2017-01-22 21:27 | General Progress Note ---
Assessment/Plan Assessment/Plan Assessment - DURANT with cirrhosis -stable - Hepatic encephalopathy - controlled - elevated CEA with negative recent EGD/Colon - Heme (+) - likely from portal HTN gastropathy - free water deficit - Azotemia Recommendations - Lactulose via NGT - Xifaxan - Aspiration precautions - Free water - follow labs - Tube feeding Subjective Allergies: Coded Allergies: PENICILLINS (Unverified Allergy, Unknown, 03/22/15) Subjective intubated seen in ICU d/w RN re TF Objective Last 24 Hour Vital Signs Date Time Temp Pulse Resp B/P (MAP) Pulse Ox O2 Delivery O2 Flow Rate FiO2 01/22/17 20:00 30 01/22/17 20:00 97.5 85 18 101/44 96 Mechanical Ventilator 30 01/22/17 19:25 86 18 30 01/22/17 19:00 84 15 106/44 95 Mechanical Ventilator 30 01/22/17 18:00 87 17 86/71 96 Mechanical Ventilator 30 01/22/17 17:00 87 18 191/95 97 Mechanical Ventilator 30 01/22/17 16:51 86 18 30 01/22/17 16:00 30 01/22/17 16:00 96.0 85 18 152/36 97 Mechanical Ventilator 30 01/22/17 15:00 82 18 120/57 97 Mechanical Ventilator 30 01/22/17 14:49 81 18 30 01/22/17 14:00 65 18 104/45 97 Mechanical Ventilator 30 01/22/17 13:00 63 18 106/48 97 Mechanical Ventilator 30 01/22/17 12:55 69 18 30 01/22/17 12:00 30 01/22/17 12:00 96.0 69 18 117/46 100 Mechanical Ventilator 30 01/22/17 11:10 79 18 30 01/22/17 11:00 79 18 143/92 100 Mechanical Ventilator 30 01/22/17 10:00 91 13 119/97 100 Mechanical Ventilator 30 01/22/17 09:22 64 18 30 01/22/17 09:00 76 18 114/51 100 Mechanical Ventilator 30 01/22/17 08:00 94.2 68 18 92/60 100 Mechanical Ventilator 30 01/22/17 08:00 30 01/22/17 07:23 75 18 30 01/22/17 07:00 70 18 79/40 100 Mechanical Ventilator 30 01/22/17 06:00 74 18 95/34 100 Mechanical Ventilator 30 01/22/17 05:00 78 18 89/27 100 Mechanical Ventilator 30 01/22/17 04:31 77 18 30 01/22/17 04:00 30 01/22/17 04:00 97.2 76 18 85/46 100 Mechanical Ventilator 30 01/22/17 03:00 75 18 86/31 100 Mechanical Ventilator 50 01/22/17 02:49 73 18 30 01/22/17 02:00 74 18 96/49 100 Mechanical Ventilator 50 01/22/17 01:00 73 18 102/45 100 Mechanical Ventilator 50 01/22/17 00:59 72 18 30 01/22/17 00:00 97.0 72 18 104/61 100 Mechanical Ventilator 50 01/21/17 23:30 40 01/21/17 23:00 75 14 97/28 100 Mechanical Ventilator 50 01/21/17 22:55 82 18 50 01/21/17 22:32 50 01/21/17 22:00 80 14 84/65 100 Mechanical Ventilator 50 01/21/17 22:00 82 20 50 01/21/17 22:00 50 01/21/17 21:40 50 Intake and Output 01/22/17 01/23/17 19:00 07:00 Intake Total 970 ml 110 ml Output Total 25 ml 0 ml Balance 945 ml 110 ml IV Total 830 ml 100 ml Tube Feeding 80 ml 10 ml Other 60 ml Output Urine Total 25 ml 0 ml # Bowel Movements 1 Laboratory Tests 01/21/17 23:00: Arterial Blood pH 7.255L, Arterial Blood Partial Pressure CO2 44.5, Arterial Blood Partial Pressure O2 118.9H, Arterial Blood HCO3 19.3L, Arterial Blood Oxygen Saturation 98.0, Arterial Blood Base Excess -7.4, Bon Test Positive 01/22/17 05:00: White Blood Count 11.5H, Red Blood Count 2.50L, Hemoglobin 8.1L, Hematocrit 26.4L, Mean Corpuscular Volume 106H, Mean Corpuscular Hemoglobin 32.5H, Mean Corpuscular Hemoglobin Concent 30.9L, Red Cell Distribution Width 16.7H, Platelet Count 37L, Mean Platelet Volume 10.8H, Neutrophils (%) (Auto) , Lymphocytes (%) (Auto) , Monocytes (%) (Auto) , Eosinophils (%) (Auto) , Basophils (%) (Auto) , Differential Total Cells Counted 100, Neutrophils % ( Manual) 87H, Lymphocytes % (Manual) 9L, Monocytes % (Manual) 4, Eosinophils % ( Manual) 0, Basophils % (Manual) 0, Band Neutrophils 0, Platelet Estimate DecreasedL, Platelet Morphology Normal, Hypochromasia 1+, Anisocytosis 1+, Macrocytosis 1+, Sodium Level 158H, Potassium Level 4.8, Chloride Level 125H, Carbon Dioxide Level 22, Anion Gap 11, Blood Urea Nitrogen 37H, Creatinine 2.5H , Estimat Glomerular Filtration Rate , Glucose Level 207H, Calcium Level 9.8, Phosphorus Level 3.2, Magnesium Level 1.8, Total Bilirubin 0.9, Aspartate Amino Transf (AST/SGOT) 43H, Alanine Aminotransferase (ALT/SGPT) 13, Alkaline Phosphatase 147H, Total Protein 6.2L, Albumin 2.2L, Globulin 4.0, Albumin/ Globulin Ratio 0.5L 01/22/17 09:50: Arterial Blood pH 7.394, Arterial Blood Partial Pressure CO2 32.6L, Arterial Blood Partial Pressure O2 78.9, Arterial Blood HCO3 19.5L, Arterial Blood Oxygen Saturation 95.9, Arterial Blood Base Excess -4.8, Bon Test Positive 01/22/17 11:00: Urine Color Yellow, Urine Appearance Slightly cloudy, Urine pH 5, Urine Specific [place] 1.020, Urine Protein 3+H, Urine Glucose (UA) Negative, Urine Ketones 1+H, Urine Occult Blood 5+H, Urine Nitrite Negative, Urine Bilirubin 1+H , Urine Ictotest Negative, Urine Urobilinogen Normal, Urine Leukocyte Esterase 3 +H, Urine RBC 5-10H, Urine WBC 30-40H, Urine Squamous Epithelial Cells Few, Urine Bacteria Few, Urine Yeast ModerateH Height (Feet): 5 Height (Inches): 6.00 Weight (Pounds): 250 Objective Obese WW NCAT supple CTA RRR soft ND NT (+) edema confused JENNIFERNIKKIRASHIRUFINA Jan 22, 2017 21:27
--- NOTE | 2017-01-22 21:36 | General Progress Note ---
Assessment/Plan Assessment/Plan Assessment - DURANT with cirrhosis -stable - Hepatic encephalopathy - controlled - elevated CEA with negative recent EGD/Colon - Heme (+) - likely from portal HTN gastropathy - AMS - Azotemia Recommendations - Lactulose via NGT - Xifaxan - Aspiration precautions - Free water replacement to correct sodium - follow labs - Tube feeding Subjective Allergies: Coded Allergies: PENICILLINS (Unverified Allergy, Unknown, 03/22/15) Subjective intubated seen in ICU d/w RN re TF and flushes (+) BM Objective Last 24 Hour Vital Signs Date Time Temp Pulse Resp B/P (MAP) Pulse Ox O2 Delivery O2 Flow Rate FiO2 01/22/17 20:00 30 01/22/17 20:00 97.5 85 18 101/44 96 Mechanical Ventilator 30 01/22/17 19:25 86 18 30 01/22/17 19:00 84 15 106/44 95 Mechanical Ventilator 30 01/22/17 18:00 87 17 86/71 96 Mechanical Ventilator 30 01/22/17 17:00 87 18 191/95 97 Mechanical Ventilator 30 01/22/17 16:51 86 18 30 01/22/17 16:00 30 01/22/17 16:00 96.0 85 18 152/36 97 Mechanical Ventilator 30 01/22/17 15:00 82 18 120/57 97 Mechanical Ventilator 30 01/22/17 14:49 81 18 30 01/22/17 14:00 65 18 104/45 97 Mechanical Ventilator 30 01/22/17 13:00 63 18 106/48 97 Mechanical Ventilator 30 01/22/17 12:55 69 18 30 01/22/17 12:00 30 01/22/17 12:00 96.0 69 18 117/46 100 Mechanical Ventilator 30 01/22/17 11:10 79 18 30 01/22/17 11:00 79 18 143/92 100 Mechanical Ventilator 30 01/22/17 10:00 91 13 119/97 100 Mechanical Ventilator 30 01/22/17 09:22 64 18 30 01/22/17 09:00 76 18 114/51 100 Mechanical Ventilator 30 01/22/17 08:00 94.2 68 18 92/60 100 Mechanical Ventilator 30 01/22/17 08:00 30 01/22/17 07:23 75 18 30 01/22/17 07:00 70 18 79/40 100 Mechanical Ventilator 30 01/22/17 06:00 74 18 95/34 100 Mechanical Ventilator 30 01/22/17 05:00 78 18 89/27 100 Mechanical Ventilator 30 01/22/17 04:31 77 18 30 01/22/17 04:00 30 01/22/17 04:00 97.2 76 18 85/46 100 Mechanical Ventilator 30 01/22/17 03:00 75 18 86/31 100 Mechanical Ventilator 50 01/22/17 02:49 73 18 30 01/22/17 02:00 74 18 96/49 100 Mechanical Ventilator 50 01/22/17 01:00 73 18 102/45 100 Mechanical Ventilator 50 01/22/17 00:59 72 18 30 01/22/17 00:00 97.0 72 18 104/61 100 Mechanical Ventilator 50 01/21/17 23:30 40 01/21/17 23:00 75 14 97/28 100 Mechanical Ventilator 50 01/21/17 22:55 82 18 50 01/21/17 22:32 50 01/21/17 22:00 80 14 84/65 100 Mechanical Ventilator 50 01/21/17 22:00 82 20 50 01/21/17 22:00 50 01/21/17 21:40 50 Intake and Output 01/22/17 01/23/17 19:00 07:00 Intake Total 970 ml 110 ml Output Total 25 ml 0 ml Balance 945 ml 110 ml IV Total 830 ml 100 ml Tube Feeding 80 ml 10 ml Other 60 ml Output Urine Total 25 ml 0 ml # Bowel Movements 1 Laboratory Tests 01/21/17 23:00: Arterial Blood pH 7.255L, Arterial Blood Partial Pressure CO2 44.5, Arterial Blood Partial Pressure O2 118.9H, Arterial Blood HCO3 19.3L, Arterial Blood Oxygen Saturation 98.0, Arterial Blood Base Excess -7.4, Bon Test Positive 01/22/17 05:00: White Blood Count 11.5H, Red Blood Count 2.50L, Hemoglobin 8.1L, Hematocrit 26.4L, Mean Corpuscular Volume 106H, Mean Corpuscular Hemoglobin 32.5H, Mean Corpuscular Hemoglobin Concent 30.9L, Red Cell Distribution Width 16.7H, Platelet Count 37L, Mean Platelet Volume 10.8H, Neutrophils (%) (Auto) , Lymphocytes (%) (Auto) , Monocytes (%) (Auto) , Eosinophils (%) (Auto) , Basophils (%) (Auto) , Differential Total Cells Counted 100, Neutrophils % ( Manual) 87H, Lymphocytes % (Manual) 9L, Monocytes % (Manual) 4, Eosinophils % ( Manual) 0, Basophils % (Manual) 0, Band Neutrophils 0, Platelet Estimate DecreasedL, Platelet Morphology Normal, Hypochromasia 1+, Anisocytosis 1+, Macrocytosis 1+, Sodium Level 158H, Potassium Level 4.8, Chloride Level 125H, Carbon Dioxide Level 22, Anion Gap 11, Blood Urea Nitrogen 37H, Creatinine 2.5H , Estimat Glomerular Filtration Rate , Glucose Level 207H, Calcium Level 9.8, Phosphorus Level 3.2, Magnesium Level 1.8, Total Bilirubin 0.9, Aspartate Amino Transf (AST/SGOT) 43H, Alanine Aminotransferase (ALT/SGPT) 13, Alkaline Phosphatase 147H, Total Protein 6.2L, Albumin 2.2L, Globulin 4.0, Albumin/ Globulin Ratio 0.5L 01/22/17 09:50: Arterial Blood pH 7.394, Arterial Blood Partial Pressure CO2 32.6L, Arterial Blood Partial Pressure O2 78.9, Arterial Blood HCO3 19.5L, Arterial Blood Oxygen Saturation 95.9, Arterial Blood Base Excess -4.8, Bon Test Positive 01/22/17 11:00: Urine Color Yellow, Urine Appearance Slightly cloudy, Urine pH 5, Urine Specific [place] 1.020, Urine Protein 3+H, Urine Glucose (UA) Negative, Urine Ketones 1+H, Urine Occult Blood 5+H, Urine Nitrite Negative, Urine Bilirubin 1+H , Urine Ictotest Negative, Urine Urobilinogen Normal, Urine Leukocyte Esterase 3 +H, Urine RBC 5-10H, Urine WBC 30-40H, Urine Squamous Epithelial Cells Few, Urine Bacteria Few, Urine Yeast ModerateH Height (Feet): 5 Height (Inches): 6.00 Weight (Pounds): 250 Objective Obese WW NCAT supple CTA RRR soft ND NT (+) edema confused KEKEKIERSTEN Jan 22, 2017 21:36
[2017-01-23] VITALS (23 sets, daily range): BP systolic 82–143; BP diastolic 28–72
[2017-01-23 05:40] LABS: HEMATOCRIT 23.9 % (37.0-47.0); HEMOGLOBIN 7.3 G/DL (12.0-16.0); MEAN CORPUSCULAR VOLUME 103 FL (80-99); PLATELET COUNT 27 K/UL (150-450); RED BLOOD COUNT 2.32 M/UL (4.20-5.40); RED CELL DISTRIBUTION WIDTH 17.1 % (11.6-14.8); WHITE BLOOD COUNT 14.6 K/UL (4.8-10.8)
[2017-01-23] MEDS: NovoLOG Insulin Flexpen SUBQ SCH ×4 (06:25→23:55)
[2017-01-23 07:02] LABS: ALANINE AMINOTRANSFERASE 12 U/L (3-33); ALBUMIN 2.1 g/dL (3.5-5.2); ALBUMIN/GLOBULIN RATIO 0.6 (1.0-2.7); ALKALINE PHOSPHATASE 120 U/L (35-104); ANION GAP 9 (5-15); ASPARTATE AMINO TRANSFERASE 51 U/L (5-40); BILIRUBIN,TOTAL 0.6 mg/dL (0.0-1.2); BLOOD UREA NITROGEN 45 mg/dL (7-23); CARBON DIOXIDE 20 mEQ/L (20-30); CHLORIDE 120 mEQ/L (98-107); CREATININE 2.8 mg/dL (0.5-0.9); PHOSPHORUS 2.4 mg/dL (2.5-4.8); POTASSIUM 4.4 mEQ/L (3.4-4.9); SODIUM 149 mEQ/L (135-145)
[2017-01-23] MEDS: Minocycline HCl 50mg cap ORAL SCH ×2 (08:44→20:51)
[2017-01-23] MEDS: Lactulose 10gm/15ml UDC ORAL SCH ×2 (08:44→18:39)
[2017-01-23] MEDS: Nystatin Powder 100,000 units/gm 15gm TOPIC SCH ×3 (08:45→18:37)
[2017-01-23] MEDS: Pantoprazole Inj IVP SCH ×2 (08:46→20:51)
--- NOTE | 2017-01-23 10:50 | Diagnostic Imaging Report ---
Indication: Dyspnea Comparison: 01/21/17 A single view chest radiograph was obtained. Findings: Tubes and lines are stable. A cardiac enlargement is stable. Interstitial edema appears worse and currently moderate in degree. Impression: Interval worsening pulmonary edema.
--- NOTE | 2017-01-23 11:39 | Pulmonolgy Critical Care Note ---
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 Respiratory: monitor respiratory rate, adjust FIO2 Cardiac: continue to monitor HR/BP Renal: F/U I&O, keep IV fluid Infectious Disease: check cultures Gastrointestinal: continue feedings/current rate Endocrine: monitor blood sugar, check TSH Neurologic: PRN Ativan Discussed with: nurses, consultants, other - awaiting daughters decision about comfortcare and morphine drip Critical Care - Objective Last 24 Hour Vital Signs Date Time Temp Pulse Resp B/P (MAP) Pulse Ox O2 Delivery O2 Flow Rate FiO2 01/23/17 11:15 78 18 30 01/23/17 11:00 60 18 119/69 95 Mechanical Ventilator 30 01/23/17 10:00 68 21 112/43 94 Mechanical Ventilator 30 01/23/17 09:02 88 23 30 01/23/17 09:00 84 20 101/39 94 Mechanical Ventilator 30 01/23/17 08:00 85 01/23/17 08:00 30 01/23/17 08:00 97.8 84 20 131/72 94 Mechanical Ventilator 30 01/23/17 07:00 84 16 109/47 95 Mechanical Ventilator 30 01/23/17 06:44 75 18 30 01/23/17 06:00 87 16 120/37 95 Mechanical Ventilator 30 01/23/17 05:00 82 16 82/39 95 Mechanical Ventilator 30 01/23/17 04:51 83 19 30 01/23/17 04:00 83 01/23/17 04:00 30 01/23/17 04:00 97.1 82 18 90/28 96 Mechanical Ventilator 30 01/23/17 03:00 88 16 98/56 95 Mechanical Ventilator 30 01/23/17 02:38 91 20 30 01/23/17 02:00 90 16 87/33 95 Mechanical Ventilator 30 01/23/17 01:20 85 18 30 01/23/17 01:00 84 16 104/46 95 Mechanical Ventilator 30 01/23/17 00:00 97.5 86 18 95/46 96 Mechanical Ventilator 30 01/23/17 00:00 90 01/22/17 23:10 88 20 30 01/22/17 23:00 90 16 110/42 95 Mechanical Ventilator 30 01/22/17 22:00 88 15 95/46 95 Mechanical Ventilator 30 01/22/17 21:19 89 20 30 01/22/17 21:00 90 15 109/42 95 Mechanical Ventilator 30 01/22/17 20:00 30 01/22/17 20:00 97.5 85 18 101/44 96 Mechanical Ventilator 30 01/22/17 20:00 86 01/22/17 19:25 86 18 30 01/22/17 19:00 84 15 106/44 95 Mechanical Ventilator 30 01/22/17 18:00 87 17 86/71 96 Mechanical Ventilator 30 01/22/17 17:00 87 18 191/95 97 Mechanical Ventilator 30 01/22/17 16:51 86 18 30 01/22/17 16:00 30 01/22/17 16:00 96.0 85 18 152/36 97 Mechanical Ventilator 30 01/22/17 15:00 82 18 120/57 97 Mechanical Ventilator 30 01/22/17 14:49 81 18 30 01/22/17 14:00 65 18 104/45 97 Mechanical Ventilator 30 01/22/17 13:00 63 18 106/48 97 Mechanical Ventilator 30 01/22/17 12:55 69 18 30 01/22/17 12:00 30 01/22/17 12:00 96.0 69 18 117/46 100 Mechanical Ventilator 30 Status: sedated Condition: critical HEENT: atraumatic Neck: full ROM Heart: HR/BP stable, HR/BP unstable Abdomen: non-tender, active bowel sounds Extremities: no C/C/E Micro: Microbiology Date/Time Source Procedure Growth Status 01/22/17 11:00 Sputum Expectorated Gram Stain Pending Resulted 01/22/17 11:00 Sputum Culture - Preliminary Gram Negative Bacillus 1 Resulted 01/22/17 11:00 Urine,Clean Catch Urine Culture - Preliminary Resulted Accucheck: 164 Critical Care - Subjective ROS Limited/Unobtainable: No ICU Day: 3 Intubation Day: 3 EKG Rhythm: Sinus Rhythm FI02: 30 Vent Support Breath Rate: 18 Vent Support Mode: AC Vent Tidal Volume: 600 Sputum Amount: Small PEEP: 0.0 PIP: 41 Tube Feeding Amount: 30 I&O: Intake and Output 01/23/17 01/24/17 19:00 07:00 Intake Total 520 ml Output Total 20 ml Balance 500 ml Free Water 100 ml IV Total 300 ml Tube Feeding 120 ml Output Urine Total 20 ml CXR: extensive infiltrate ET-Tube: 7.0 ET Position: 21 Labs: Laboratory Tests Test 01/23/17 04:00 01/23/17 06:44 White Blood Count 14.6 K/UL (4.8-10.8) H Red Blood Count 2.32 M/UL (4.20-5.40) L Hemoglobin 7.3 G/DL (12.0-16.0) L Hematocrit 23.9 % (37.0-47.0) L Mean Corpuscular Volume 103 FL (80-99) H Mean Corpuscular Hemoglobin 31.5 PG (27.0-31.0) H Mean Corpuscular Hemoglobin Concent 30.6 G/DL (32.0-36.0) L Red Cell Distribution Width 17.1 % (11.6-14.8) H Platelet Count 27 K/UL (150-450) L Mean Platelet Volume 12.9 FL (6.5-10.1) H Neutrophils (%) (Auto) % (45.0-75.0) Lymphocytes (%) (Auto) % (20.0-45.0) Monocytes (%) (Auto) % (1.0-10.0) Eosinophils (%) (Auto) % (0.0-3.0) Basophils (%) (Auto) % (0.0-2.0) Differential Total Cells Counted 100 Neutrophils % (Manual) 90 % (45-75) H Lymphocytes % (Manual) 7 % (20-45) L Monocytes % (Manual) 3 % (1-10) Eosinophils % (Manual) 0 % (0-3) Basophils % (Manual) 0 % (0-2) Band Neutrophils 0 % (0-8) Platelet Estimate Decreased L Platelet Morphology Normal Hypochromasia 1+ Anisocytosis 1+ Macrocytosis 1+ Sodium Level 149 mEQ/L (135-145) H Potassium Level 4.4 mEQ/L (3.4-4.9) Chloride Level 120 mEQ/L (98-107) H Carbon Dioxide Level 20 mEQ/L (20-30) Anion Gap 9 (5-15) Blood Urea Nitrogen 45 mg/dL (7-23) H Creatinine 2.8 mg/dL (0.5-0.9) H Estimat Glomerular Filtration Rate mL/min (>60) Glucose Level 196 mg/dL (74-106) H Uric Acid 9.8 mg/dL (3.0-7.5) H Calcium Level 9.0 mg/dL (8.6-10.2) Phosphorus Level 2.4 mg/dL (2.5-4.8) L Magnesium Level 1.8 mg/dL (1.7-2.5) Total Bilirubin 0.6 mg/dL (0.0-1.2) Aspartate Amino Transf (AST/SGOT) 51 U/L (5-40) H Alanine Aminotransferase (ALT/SGPT) 12 U/L (3-33) Alkaline Phosphatase 120 U/L (35-104) H C-Reactive Protein, Quantitative 4.0 mg/dL (< 0.5) H Pro-B-Type Natriuretic Peptide 13646 pg/mL (0-450) H Total Protein 5.3 g/dL (6.6-8.7) L Albumin 2.1 g/dL (3.5-5.2) L Globulin 3.2 g/dL Albumin/Globulin Ratio 0.6 (1.0-2.7) L Arterial Blood pH 7.409 (7.350-7.450) Arterial Blood Partial Pressure CO2 31.1 mmHg (35.0-45.0) L Arterial Blood Partial Pressure O2 92.5 mmHg (75.0-100.0) Arterial Blood HCO3 19.5 mmol/L (22.0-26.0) L Arterial Blood Oxygen Saturation 96.7 % (92.0-98.0) Arterial Blood Base Excess -4.8 Bon Test Positive DIONI TRIANA Jan 23, 2017 11:39
--- NOTE | 2017-01-23 12:30 | Geriatric Progress Note ---
Assessment/Plan Assessment/Plan encephalopathy Subjective Interval Events 01/22/17 mild agitation. lethargic Mood/Memory: Reports: prior hx, anxiety Geriatric Geriatric Last 24 Hour Vital Signs Date Time Temp Pulse Resp B/P (MAP) Pulse Ox O2 Delivery O2 Flow Rate FiO2 01/23/17 12:00 30 01/23/17 11:15 78 18 30 01/23/17 11:00 60 18 119/69 95 Mechanical Ventilator 30 01/23/17 10:00 68 21 112/43 94 Mechanical Ventilator 30 01/23/17 09:02 88 23 30 01/23/17 09:00 84 20 101/39 94 Mechanical Ventilator 30 01/23/17 08:00 85 01/23/17 08:00 30 01/23/17 08:00 97.8 84 20 131/72 94 Mechanical Ventilator 30 01/23/17 07:00 84 16 109/47 95 Mechanical Ventilator 30 01/23/17 06:44 75 18 30 01/23/17 06:00 87 16 120/37 95 Mechanical Ventilator 30 01/23/17 05:00 82 16 82/39 95 Mechanical Ventilator 30 01/23/17 04:51 83 19 30 01/23/17 04:00 83 01/23/17 04:00 30 01/23/17 04:00 97.1 82 18 90/28 96 Mechanical Ventilator 30 01/23/17 03:00 88 16 98/56 95 Mechanical Ventilator 30 01/23/17 02:38 91 20 30 01/23/17 02:00 90 16 87/33 95 Mechanical Ventilator 30 01/23/17 01:20 85 18 30 01/23/17 01:00 84 16 104/46 95 Mechanical Ventilator 30 01/23/17 00:00 97.5 86 18 95/46 96 Mechanical Ventilator 30 01/23/17 00:00 90 01/22/17 23:10 88 20 30 01/22/17 23:00 90 16 110/42 95 Mechanical Ventilator 30 01/22/17 22:00 88 15 95/46 95 Mechanical Ventilator 30 01/22/17 21:19 89 20 30 01/22/17 21:00 90 15 109/42 95 Mechanical Ventilator 30 01/22/17 20:00 30 01/22/17 20:00 97.5 85 18 101/44 96 Mechanical Ventilator 30 01/22/17 20:00 86 01/22/17 19:25 86 18 30 01/22/17 19:00 84 15 106/44 95 Mechanical Ventilator 30 01/22/17 18:00 87 17 86/71 96 Mechanical Ventilator 30 01/22/17 17:00 87 18 191/95 97 Mechanical Ventilator 30 01/22/17 16:51 86 18 30 01/22/17 16:00 30 01/22/17 16:00 96.0 85 18 152/36 97 Mechanical Ventilator 30 01/22/17 15:00 82 18 120/57 97 Mechanical Ventilator 30 01/22/17 14:49 81 18 30 01/22/17 14:00 65 18 104/45 97 Mechanical Ventilator 30 01/22/17 13:00 63 18 106/48 97 Mechanical Ventilator 30 01/22/17 12:55 69 18 30 Intake and Output 01/23/17 01/24/17 19:00 07:00 Intake Total 650 ml Output Total 30 ml Balance 620 ml Free Water 200 ml IV Total 300 ml Tube Feeding 150 ml Output Urine Total 30 ml Laboratory Tests Test 01/23/17 04:00 01/23/17 06:44 White Blood Count 14.6 K/UL (4.8-10.8) H Red Blood Count 2.32 M/UL (4.20-5.40) L Hemoglobin 7.3 G/DL (12.0-16.0) L Hematocrit 23.9 % (37.0-47.0) L Mean Corpuscular Volume 103 FL (80-99) H Mean Corpuscular Hemoglobin 31.5 PG (27.0-31.0) H Mean Corpuscular Hemoglobin Concent 30.6 G/DL (32.0-36.0) L Red Cell Distribution Width 17.1 % (11.6-14.8) H Platelet Count 27 K/UL (150-450) L Mean Platelet Volume 12.9 FL (6.5-10.1) H Neutrophils (%) (Auto) % (45.0-75.0) Lymphocytes (%) (Auto) % (20.0-45.0) Monocytes (%) (Auto) % (1.0-10.0) Eosinophils (%) (Auto) % (0.0-3.0) Basophils (%) (Auto) % (0.0-2.0) Differential Total Cells Counted 100 Neutrophils % (Manual) 90 % (45-75) H Lymphocytes % (Manual) 7 % (20-45) L Monocytes % (Manual) 3 % (1-10) Eosinophils % (Manual) 0 % (0-3) Basophils % (Manual) 0 % (0-2) Band Neutrophils 0 % (0-8) Platelet Estimate Decreased L Platelet Morphology Normal Hypochromasia 1+ Anisocytosis 1+ Macrocytosis 1+ Sodium Level 149 mEQ/L (135-145) H Potassium Level 4.4 mEQ/L (3.4-4.9) Chloride Level 120 mEQ/L (98-107) H Carbon Dioxide Level 20 mEQ/L (20-30) Anion Gap 9 (5-15) Blood Urea Nitrogen 45 mg/dL (7-23) H Creatinine 2.8 mg/dL (0.5-0.9) H Estimat Glomerular Filtration Rate mL/min (>60) Glucose Level 196 mg/dL (74-106) H Uric Acid 9.8 mg/dL (3.0-7.5) H Calcium Level 9.0 mg/dL (8.6-10.2) Phosphorus Level 2.4 mg/dL (2.5-4.8) L Magnesium Level 1.8 mg/dL (1.7-2.5) Total Bilirubin 0.6 mg/dL (0.0-1.2) Aspartate Amino Transf (AST/SGOT) 51 U/L (5-40) H Alanine Aminotransferase (ALT/SGPT) 12 U/L (3-33) Alkaline Phosphatase 120 U/L (35-104) H C-Reactive Protein, Quantitative 4.0 mg/dL (< 0.5) H Pro-B-Type Natriuretic Peptide 17921 pg/mL (0-450) H Total Protein 5.3 g/dL (6.6-8.7) L Albumin 2.1 g/dL (3.5-5.2) L Globulin 3.2 g/dL Albumin/Globulin Ratio 0.6 (1.0-2.7) L Arterial Blood pH 7.409 (7.350-7.450) Arterial Blood Partial Pressure CO2 31.1 mmHg (35.0-45.0) L Arterial Blood Partial Pressure O2 92.5 mmHg (75.0-100.0) Arterial Blood HCO3 19.5 mmol/L (22.0-26.0) L Arterial Blood Oxygen Saturation 96.7 % (92.0-98.0) Arterial Blood Base Excess -4.8 Bon Test Positive Current Medications Medications (Trade) Dose Ordered Sig/Pavel Route PRN Reason Start Time Stop Time Status Last Admin Dose Admin Acetaminophen (Tylenol) 650 mg Q4H PRN ORAL T>100.5 01/21/17 14:30 02/15/17 14:29 Albumin Human 100 ml @ 100 mls/hr Q6H IV 01/23/17 15:00 02/22/17 14:59 Albuterol/ Ipratropium (DuoNeb 0.5-3(2.5)mg/3ml) 3 ml Q4H PRN HHN Shortness of Breath 01/21/17 14:30 01/28/17 14:29 Cefepime HCl 1 gm/ Dextrose 55 ml @ 110 mls/hr Q24H IVPB 01/21/17 15:00 01/24/17 14:59 01/22/17 15:00 Clotrimazole (Lotrimin) 1 applic EVERY 12 HOURS TOPIC 01/21/17 21:00 02/18/17 13:59 01/23/17 08:46 Dextrose 1,000 ml @ 100 mls/hr Q10H IV 01/22/17 09:30 02/21/17 09:29 01/23/17 04:26 Dextrose (Dextrose 50%) STAT PRN IV Hypoglycemia 01/21/17 14:30 02/17/17 14:29 Insulin Aspart (NovoLOG) EVERY 6 HOURS SUBQ 01/22/17 12:00 02/15/17 16:29 01/23/17 11:51 Lactulose (Cephulac) 10 gm BID ORAL 01/23/17 09:00 02/18/17 12:59 01/23/17 08:44 Lorazepam (Ativan 2mg/ml 1ml) 2 mg Q4H PRN IV For Anxiety 01/22/17 06:45 01/29/17 06:44 01/23/17 09:10 Minocycline HCl (Minocin) 100 mg Q12HR ORAL 01/21/17 21:00 01/25/17 12:29 01/23/17 08:44 Morphine Sulfate (Morphine Sulfate) 4 mg Q4H PRN IVP For Pain 01/22/17 06:45 01/29/17 06:44 Nitroglycerin (Ntg) 0.4 mg Q5MIN X 3 DOSES PRN SL Prn Chest Pain 01/21/17 14:30 02/15/17 14:29 Nystatin (Nystop Powder) 1 applic THREE TIMES A DAY TOPIC 01/22/17 13:00 02/21/17 12:59 01/23/17 08:45 Ondansetron HCl (Zofran) 4 mg Q6H PRN IVP Nausea & Vomiting 01/21/17 14:30 02/15/17 14:29 Pantoprazole (Protonix) 40 mg EVERY 12 HOURS IVP 01/21/17 21:00 02/20/17 20:59 01/23/17 08:46 Polyethylene Glycol (Miralax) 17 gm DAILYPRN PRN ORAL Constipation 01/21/17 14:00 02/17/17 13:59 Rifaximin (Xifaxan) 550 mg EVERY 12 HOURS ORAL 01/21/17 21:00 01/23/17 20:59 01/23/17 08:44 Vancomycin HCl (Vanco rx to dose) 1 ea DAILY PRN MISC Per rx protocol 01/22/17 09:00 02/18/17 11:44 Height (Feet): 5 Height (Inches): 6.00 Weight (Pounds): 250 General Appearance: no apparent distress, poor eye contact, obese Psychiatric Language/Speech: mumbled Orientation: disoriented Oj Medel M.D. Jan 23, 2017 12:30
--- NOTE | 2017-01-23 12:50 | General Progress Note ---
Assessment/Plan Status: unchanged, deteriorating Status Narrative Cr higher- H&H lower Assessment/Plan Acute on chronic renal failure- multifactorial CHF DM HTN Sepsis Now: Acute respiratory failure- Intubated - Altered level of consciousness - ESBL (extended spectrum beta-lactamase) producing bacteria infection - Cardiomegaly - DM (diabetes mellitus) - HTN (hypertension) - UTI (urinary tract infection) - Anemia - High Cholestrol - COPD - YELENA - Fatty liver Plan: Transfuse- D5W 100 cc hour Optimize cardiac and pulmonary status 2D echo results noted avoid nephrotoxics monitor renal parameters Urine studies per orders Subjective ROS Limited/Unobtainable: Yes Allergies: Coded Allergies: PENICILLINS (Unverified Allergy, Unknown, 03/22/15) Objective Last 24 Hour Vital Signs Date Time Temp Pulse Resp B/P (MAP) Pulse Ox O2 Delivery O2 Flow Rate FiO2 01/23/17 12:00 30 01/23/17 12:00 65 01/23/17 12:00 97.6 65 18 99/38 93 Mechanical Ventilator 30 01/23/17 11:15 78 18 30 01/23/17 11:00 60 18 119/69 95 Mechanical Ventilator 30 01/23/17 10:00 68 21 112/43 94 Mechanical Ventilator 30 01/23/17 09:02 88 23 30 01/23/17 09:00 84 20 101/39 94 Mechanical Ventilator 30 01/23/17 08:00 85 01/23/17 08:00 30 01/23/17 08:00 97.8 84 20 131/72 94 Mechanical Ventilator 30 01/23/17 07:00 84 16 109/47 95 Mechanical Ventilator 30 01/23/17 06:44 75 18 30 01/23/17 06:00 87 16 120/37 95 Mechanical Ventilator 30 01/23/17 05:00 82 16 82/39 95 Mechanical Ventilator 30 01/23/17 04:51 83 19 30 01/23/17 04:00 83 01/23/17 04:00 30 01/23/17 04:00 97.1 82 18 90/28 96 Mechanical Ventilator 30 01/23/17 03:00 88 16 98/56 95 Mechanical Ventilator 30 01/23/17 02:38 91 20 30 01/23/17 02:00 90 16 87/33 95 Mechanical Ventilator 30 01/23/17 01:20 85 18 30 01/23/17 01:00 84 16 104/46 95 Mechanical Ventilator 30 01/23/17 00:00 97.5 86 18 95/46 96 Mechanical Ventilator 30 01/23/17 00:00 90 01/22/17 23:10 88 20 30 01/22/17 23:00 90 16 110/42 95 Mechanical Ventilator 30 01/22/17 22:00 88 15 95/46 95 Mechanical Ventilator 30 01/22/17 21:19 89 20 30 01/22/17 21:00 90 15 109/42 95 Mechanical Ventilator 30 01/22/17 20:00 30 01/22/17 20:00 97.5 85 18 101/44 96 Mechanical Ventilator 30 01/22/17 20:00 86 01/22/17 19:25 86 18 30 01/22/17 19:00 84 15 106/44 95 Mechanical Ventilator 30 01/22/17 18:00 87 17 86/71 96 Mechanical Ventilator 30 01/22/17 17:00 87 18 191/95 97 Mechanical Ventilator 30 01/22/17 16:51 86 18 30 01/22/17 16:00 30 01/22/17 16:00 96.0 85 18 152/36 97 Mechanical Ventilator 30 01/22/17 15:00 82 18 120/57 97 Mechanical Ventilator 30 01/22/17 14:49 81 18 30 01/22/17 14:00 65 18 104/45 97 Mechanical Ventilator 30 01/22/17 13:00 63 18 106/48 97 Mechanical Ventilator 30 01/22/17 12:55 69 18 30 Intake and Output 01/23/17 01/24/17 19:00 07:00 Intake Total 650 ml Output Total 30 ml Balance 620 ml Free Water 200 ml IV Total 300 ml Tube Feeding 150 ml Output Urine Total 30 ml Laboratory Tests 01/23/17 04:00: White Blood Count 14.6H, Red Blood Count 2.32L, Hemoglobin 7.3L, Hematocrit 23.9L, Mean Corpuscular Volume 103H, Mean Corpuscular Hemoglobin 31.5H, Mean Corpuscular Hemoglobin Concent 30.6L, Red Cell Distribution Width 17.1H, Platelet Count 27L, Mean Platelet Volume 12.9H, Neutrophils (%) (Auto) , Lymphocytes (%) (Auto) , Monocytes (%) (Auto) , Eosinophils (%) (Auto) , Basophils (%) (Auto) , Differential Total Cells Counted 100, Neutrophils % ( Manual) 90H, Lymphocytes % (Manual) 7L, Monocytes % (Manual) 3, Eosinophils % ( Manual) 0, Basophils % (Manual) 0, Band Neutrophils 0, Platelet Estimate DecreasedL, Platelet Morphology Normal, Hypochromasia 1+, Anisocytosis 1+, Macrocytosis 1+, Sodium Level 149H, Potassium Level 4.4, Chloride Level 120H, Carbon Dioxide Level 20, Anion Gap 9, Blood Urea Nitrogen 45H, Creatinine 2.8H, Estimat Glomerular Filtration Rate , Glucose Level 196H, Uric Acid 9.8H, Calcium Level 9.0, Phosphorus Level 2.4L, Magnesium Level 1.8, Total Bilirubin 0.6, Aspartate Amino Transf (AST/SGOT) 51H, Alanine Aminotransferase (ALT/SGPT) 12, Alkaline Phosphatase 120H, C-Reactive Protein, Quantitative 4.0H, Pro-B- Type Natriuretic Peptide 33918D, Total Protein 5.3L, Albumin 2.1L, Globulin 3.2 , Albumin/Globulin Ratio 0.6L 01/23/17 06:44: Arterial Blood pH 7.409, Arterial Blood Partial Pressure CO2 31.1L, Arterial Blood Partial Pressure O2 92.5, Arterial Blood HCO3 19.5L, Arterial Blood Oxygen Saturation 96.7, Arterial Blood Base Excess -4.8, Bon Test Positive Height (Feet): 5 Height (Inches): 6.00 Weight (Pounds): 250 EENT: other - intubated Cardiovascular: normal rate Respiratory/Chest: decreased breath sounds Abdomen: soft Objective no change ANDERS OMLINA Jan 23, 2017 12:50
--- NOTE | 2017-01-23 15:04 | Cardiac Electrophysiology PN ---
Assessment/Plan Assessment/Plan 1. Congestive heart failure with a very high brain natriuretic peptide. Decrease D5w to 60cc/hr Echocardiogram showed ejection fraction of 60% to 65% with diastolic dysfunction. Her EKG also showed normal sinus rhythm with low voltage QRS. 2. Hypertension 3. Urinary tract infection. 4. Diabetes. 5. Hyperlipidemia. 6. Cirrhosis 7. Anemia with hemoglobin of 8. 8. Hypernatremia with NA 160 and renal failure. Decrease D5w to 60cc/hr. Down to 149 9. 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 Off pressors. In SR. DNR and DNI Objective Last 24 Hour Vital Signs Date Time Temp Pulse Resp B/P (MAP) Pulse Ox O2 Delivery O2 Flow Rate FiO2 01/23/17 14:52 83 20 40 01/23/17 14:00 85 21 140/53 93 Mechanical Ventilator 30 01/23/17 13:01 82 22 30 01/23/17 12:00 30 01/23/17 12:00 65 01/23/17 12:00 97.6 65 18 99/38 93 Mechanical Ventilator 30 01/23/17 11:15 78 18 30 01/23/17 11:00 60 18 119/69 95 Mechanical Ventilator 30 01/23/17 10:00 68 21 112/43 94 Mechanical Ventilator 30 01/23/17 09:02 88 23 30 01/23/17 09:00 84 20 101/39 94 Mechanical Ventilator 30 01/23/17 08:00 85 01/23/17 08:00 30 01/23/17 08:00 97.8 84 20 131/72 94 Mechanical Ventilator 30 01/23/17 07:00 84 16 109/47 95 Mechanical Ventilator 30 01/23/17 06:44 75 18 30 01/23/17 06:00 87 16 120/37 95 Mechanical Ventilator 30 01/23/17 05:00 82 16 82/39 95 Mechanical Ventilator 30 01/23/17 04:51 83 19 30 01/23/17 04:00 83 01/23/17 04:00 30 01/23/17 04:00 97.1 82 18 90/28 96 Mechanical Ventilator 30 01/23/17 03:00 88 16 98/56 95 Mechanical Ventilator 30 01/23/17 02:38 91 20 30 01/23/17 02:00 90 16 87/33 95 Mechanical Ventilator 30 01/23/17 01:20 85 18 30 01/23/17 01:00 84 16 104/46 95 Mechanical Ventilator 30 01/23/17 00:00 97.5 86 18 95/46 96 Mechanical Ventilator 30 01/23/17 00:00 90 01/22/17 23:10 88 20 30 01/22/17 23:00 90 16 110/42 95 Mechanical Ventilator 30 01/22/17 22:00 88 15 95/46 95 Mechanical Ventilator 30 01/22/17 21:19 89 20 30 01/22/17 21:00 90 15 109/42 95 Mechanical Ventilator 30 01/22/17 20:00 30 01/22/17 20:00 97.5 85 18 101/44 96 Mechanical Ventilator 30 01/22/17 20:00 86 01/22/17 19:25 86 18 30 01/22/17 19:00 84 15 106/44 95 Mechanical Ventilator 30 01/22/17 18:00 87 17 86/71 96 Mechanical Ventilator 30 01/22/17 17:00 87 18 191/95 97 Mechanical Ventilator 30 01/22/17 16:51 86 18 30 01/22/17 16:00 30 01/22/17 16:00 96.0 85 18 152/36 97 Mechanical Ventilator 30 Intake and Output 01/23/17 01/24/17 19:00 07:00 Intake Total 610 ml Output Total 50 ml Balance 560 ml Free Water 100 ml IV Total 300 ml Tube Feeding 210 ml Output Urine Total 50 ml Laboratory Tests Test 01/23/17 04:00 01/23/17 06:44 White Blood Count 14.6 K/UL (4.8-10.8) H Red Blood Count 2.32 M/UL (4.20-5.40) L Hemoglobin 7.3 G/DL (12.0-16.0) L Hematocrit 23.9 % (37.0-47.0) L Mean Corpuscular Volume 103 FL (80-99) H Mean Corpuscular Hemoglobin 31.5 PG (27.0-31.0) H Mean Corpuscular Hemoglobin Concent 30.6 G/DL (32.0-36.0) L Red Cell Distribution Width 17.1 % (11.6-14.8) H Platelet Count 27 K/UL (150-450) L Mean Platelet Volume 12.9 FL (6.5-10.1) H Neutrophils (%) (Auto) % (45.0-75.0) Lymphocytes (%) (Auto) % (20.0-45.0) Monocytes (%) (Auto) % (1.0-10.0) Eosinophils (%) (Auto) % (0.0-3.0) Basophils (%) (Auto) % (0.0-2.0) Differential Total Cells Counted 100 Neutrophils % (Manual) 90 % (45-75) H Lymphocytes % (Manual) 7 % (20-45) L Monocytes % (Manual) 3 % (1-10) Eosinophils % (Manual) 0 % (0-3) Basophils % (Manual) 0 % (0-2) Band Neutrophils 0 % (0-8) Platelet Estimate Decreased L Platelet Morphology Normal Hypochromasia 1+ Anisocytosis 1+ Macrocytosis 1+ Sodium Level 149 mEQ/L (135-145) H Potassium Level 4.4 mEQ/L (3.4-4.9) Chloride Level 120 mEQ/L (98-107) H Carbon Dioxide Level 20 mEQ/L (20-30) Anion Gap 9 (5-15) Blood Urea Nitrogen 45 mg/dL (7-23) H Creatinine 2.8 mg/dL (0.5-0.9) H Estimat Glomerular Filtration Rate mL/min (>60) Glucose Level 196 mg/dL (74-106) H Uric Acid 9.8 mg/dL (3.0-7.5) H Calcium Level 9.0 mg/dL (8.6-10.2) Phosphorus Level 2.4 mg/dL (2.5-4.8) L Magnesium Level 1.8 mg/dL (1.7-2.5) Total Bilirubin 0.6 mg/dL (0.0-1.2) Aspartate Amino Transf (AST/SGOT) 51 U/L (5-40) H Alanine Aminotransferase (ALT/SGPT) 12 U/L (3-33) Alkaline Phosphatase 120 U/L (35-104) H C-Reactive Protein, Quantitative 4.0 mg/dL (< 0.5) H Pro-B-Type Natriuretic Peptide 56977 pg/mL (0-450) H Total Protein 5.3 g/dL (6.6-8.7) L Albumin 2.1 g/dL (3.5-5.2) L Globulin 3.2 g/dL Albumin/Globulin Ratio 0.6 (1.0-2.7) L Arterial Blood pH 7.409 (7.350-7.450) Arterial Blood Partial Pressure CO2 31.1 mmHg (35.0-45.0) L Arterial Blood Partial Pressure O2 92.5 mmHg (75.0-100.0) Arterial Blood HCO3 19.5 mmol/L (22.0-26.0) L Arterial Blood Oxygen Saturation 96.7 % (92.0-98.0) Arterial Blood Base Excess -4.8 Bon Test Positive Microbiology Date/Time Source Procedure Growth Status 01/22/17 11:00 Sputum Expectorated Gram Stain - Final Resulted 01/22/17 11:00 Sputum Culture - Preliminary Gram Negative Bacillus 1 Resulted 01/22/17 11:00 Urine,Clean Catch Urine Culture - Preliminary Resulted Objective HEAD AND NECK: Shows no JVD.Orally intubated LUNGS: Coarse rhonchi CARDIOVASCULAR: Regular S1 and S2 with no gallop or murmur. ABDOMEN: Soft and nontender and obese. EXTREMITIES: 2+ pitting edema. DEAN SHAW Jan 23, 2017 15:04
--- NOTE | 2017-01-23 15:06 | Internal Med Progress Note ---
Subjective Physician Name Rl Tee Attending Physician Rl Tee MD Current Medications Medications (Trade) Dose Ordered Sig/Pavel Route PRN Reason Start Time Stop Time Status Last Admin Dose Admin Acetaminophen (Tylenol) 650 mg Q4H PRN ORAL T>100.5 01/21/17 14:30 02/15/17 14:29 Albumin Human 100 ml @ 100 mls/hr Q6H IV 01/23/17 15:00 02/22/17 14:59 Albuterol/ Ipratropium (DuoNeb 0.5-3(2.5)mg/3ml) 3 ml Q4H PRN HHN Shortness of Breath 01/21/17 14:30 01/28/17 14:29 Cefepime HCl 1 gm/ Dextrose 55 ml @ 110 mls/hr Q24H IVPB 01/21/17 15:00 01/24/17 14:59 01/22/17 15:00 Clotrimazole (Lotrimin) 1 applic EVERY 12 HOURS TOPIC 01/21/17 21:00 02/18/17 13:59 01/23/17 08:46 Dextrose 1,000 ml @ 100 mls/hr Q10H IV 01/22/17 09:30 02/21/17 09:29 01/23/17 04:26 Dextrose (Dextrose 50%) STAT PRN IV Hypoglycemia 01/21/17 14:30 02/17/17 14:29 Insulin Aspart (NovoLOG) EVERY 6 HOURS SUBQ 01/22/17 12:00 02/15/17 16:29 01/23/17 11:51 Lactulose (Cephulac) 10 gm BID ORAL 01/23/17 09:00 02/18/17 12:59 01/23/17 08:44 Lorazepam (Ativan 2mg/ml 1ml) 2 mg Q4H PRN IV For Anxiety 01/22/17 06:45 01/29/17 06:44 01/23/17 09:10 Minocycline HCl (Minocin) 100 mg Q12HR ORAL 01/21/17 21:00 01/25/17 12:29 01/23/17 08:44 Morphine Sulfate (Morphine Sulfate) 4 mg Q4H PRN IVP For Pain 01/22/17 06:45 01/29/17 06:44 Nitroglycerin (Ntg) 0.4 mg Q5MIN X 3 DOSES PRN SL Prn Chest Pain 01/21/17 14:30 02/15/17 14:29 Nystatin (Nystop Powder) 1 applic THREE TIMES A DAY TOPIC 01/22/17 13:00 02/21/17 12:59 01/23/17 12:59 Ondansetron HCl (Zofran) 4 mg Q6H PRN IVP Nausea & Vomiting 01/21/17 14:30 02/15/17 14:29 Pantoprazole (Protonix) 40 mg EVERY 12 HOURS IVP 01/21/17 21:00 02/20/17 20:59 01/23/17 08:46 Polyethylene Glycol (Miralax) 17 gm DAILYPRN PRN ORAL Constipation 01/21/17 14:00 02/17/17 13:59 Rifaximin (Xifaxan) 550 mg EVERY 12 HOURS ORAL 01/21/17 21:00 01/23/17 20:59 01/23/17 08:44 Vancomycin HCl (Vanco rx to dose) 1 ea DAILY PRN MISC Per rx protocol 01/22/17 09:00 02/18/17 11:44 Allergies: Coded Allergies: PENICILLINS (Unverified Allergy, Unknown, 03/22/15) Subjective in ICU , Intubated , less responsive, open eye with deep stimuli, confused Objective Last Vital Signs Date Time Temp Pulse Resp B/P (MAP) Pulse Ox O2 Delivery O2 Flow Rate FiO2 01/23/17 14:00 85 21 140/53 93 Mechanical Ventilator 30 01/23/17 12:00 97.6 01/21/17 17:00 Laboratory Tests Test 01/23/17 04:00 01/23/17 06:44 White Blood Count 14.6 K/UL (4.8-10.8) H Red Blood Count 2.32 M/UL (4.20-5.40) L Hemoglobin 7.3 G/DL (12.0-16.0) L Hematocrit 23.9 % (37.0-47.0) L Mean Corpuscular Volume 103 FL (80-99) H Mean Corpuscular Hemoglobin 31.5 PG (27.0-31.0) H Mean Corpuscular Hemoglobin Concent 30.6 G/DL (32.0-36.0) L Red Cell Distribution Width 17.1 % (11.6-14.8) H Platelet Count 27 K/UL (150-450) L Mean Platelet Volume 12.9 FL (6.5-10.1) H Neutrophils (%) (Auto) % (45.0-75.0) Lymphocytes (%) (Auto) % (20.0-45.0) Monocytes (%) (Auto) % (1.0-10.0) Eosinophils (%) (Auto) % (0.0-3.0) Basophils (%) (Auto) % (0.0-2.0) Differential Total Cells Counted 100 Neutrophils % (Manual) 90 % (45-75) H Lymphocytes % (Manual) 7 % (20-45) L Monocytes % (Manual) 3 % (1-10) Eosinophils % (Manual) 0 % (0-3) Basophils % (Manual) 0 % (0-2) Band Neutrophils 0 % (0-8) Platelet Estimate Decreased L Platelet Morphology Normal Hypochromasia 1+ Anisocytosis 1+ Macrocytosis 1+ Sodium Level 149 mEQ/L (135-145) H Potassium Level 4.4 mEQ/L (3.4-4.9) Chloride Level 120 mEQ/L (98-107) H Carbon Dioxide Level 20 mEQ/L (20-30) Anion Gap 9 (5-15) Blood Urea Nitrogen 45 mg/dL (7-23) H Creatinine 2.8 mg/dL (0.5-0.9) H Estimat Glomerular Filtration Rate mL/min (>60) Glucose Level 196 mg/dL (74-106) H Uric Acid 9.8 mg/dL (3.0-7.5) H Calcium Level 9.0 mg/dL (8.6-10.2) Phosphorus Level 2.4 mg/dL (2.5-4.8) L Magnesium Level 1.8 mg/dL (1.7-2.5) Total Bilirubin 0.6 mg/dL (0.0-1.2) Aspartate Amino Transf (AST/SGOT) 51 U/L (5-40) H Alanine Aminotransferase (ALT/SGPT) 12 U/L (3-33) Alkaline Phosphatase 120 U/L (35-104) H C-Reactive Protein, Quantitative 4.0 mg/dL (< 0.5) H Pro-B-Type Natriuretic Peptide 92675 pg/mL (0-450) H Total Protein 5.3 g/dL (6.6-8.7) L Albumin 2.1 g/dL (3.5-5.2) L Globulin 3.2 g/dL Albumin/Globulin Ratio 0.6 (1.0-2.7) L Arterial Blood pH 7.409 (7.350-7.450) Arterial Blood Partial Pressure CO2 31.1 mmHg (35.0-45.0) L Arterial Blood Partial Pressure O2 92.5 mmHg (75.0-100.0) Arterial Blood HCO3 19.5 mmol/L (22.0-26.0) L Arterial Blood Oxygen Saturation 96.7 % (92.0-98.0) Arterial Blood Base Excess -4.8 Bon Test Positive Microbiology Date/Time Source Procedure Growth Status 01/22/17 11:00 Sputum Expectorated Gram Stain - Final Resulted 01/22/17 11:00 Sputum Culture - Preliminary Gram Negative Bacillus 1 Resulted 01/22/17 11:00 Urine,Clean Catch Urine Culture - Preliminary Resulted Intake and Output 01/23/17 01/24/17 19:00 07:00 Intake Total 610 ml Output Total 50 ml Balance 560 ml Free Water 100 ml IV Total 300 ml Tube Feeding 210 ml Output Urine Total 50 ml Objective General: intubated, not responsive. HEENT: NCAT, sclera anicteric, PERRL, ET Tube, NG tube. Neck: Supple, Right IJ Cath Lungs: mechanical breath sound,decrease basal bilaterally, no Wheeze. Heart: Regular rate and rhythm, normal S1/S2, no murmurs Abdomen: soft, nontender, nondistended. morbid obesity. : Nunez Cath Extremities: No Cyanosis , clubbing +2 edema. Neuro: less responsive, confused, moving all extremities. Assessment/Plan Assessment/Plan 1. Altered mental status most likely due to hepatic encephalopathy and sepsis 2. Encephalopathy due to infection / Urinary tract infection. 3. Thrombocytopenia. 4. Anemia. 5. Diabetes type 2. 6. Hypertension. 7. Obstructive sleep apnea. 8. Gastroesophageal reflux disease. 9. Hypercholesterolemia. 10. Cardiomyopathy. 11. Liver cirrhosis. 12. Fatty liver. 13. Hypernatremia. 14. RAMYA on CKD 15. Acute Hypoxemic and hypercapnia respiratory failure. 16. MRSA bacteremia- r/o endocarditis PLAN: decrease IVF @ 60 cc/hr. Abx: Vanco IV. Cefepime IV Monitor labs and cultures F/U Dr. Wallace and Dr. Melendez recommendations Code status: DNR SCD Rl Tee MD Jan 23, 2017 15:06
[2017-01-23] MEDS: Cefepime HCl 1 GM in D5W 55 ML IVPB SCH (15:17)
--- NOTE | 2017-01-23 18:27 | Infectious Diseases Prog Note ---
Assessment/Plan Assessment/Plan Assesment: Encephalopathy- possibly multifactorial- hepatic encephalopathy, infection- worsening now due to hypercapnea (transferrd to ICU 01/21), on bipap> intubated- r/o PNA -CXR 01/23 : Interval worsening pulmonary edema. Leukocytosis, worsening -01/22 u/a WBC 30-40, ucx pending -Sp cx GNB (id and sensi pending) -Bcx NTD Probable MDR UTI, pyuria, on Tx -u/a 01/16 WBC too many to count,nit neg ,leuk est +3; UCx x3 grew >100K MDR A.baumani complex (S. tigecycline/Minocycline, Polymixin B/Colistin), >100K PsA (S. Cefepime, Zosyn; R Cipro/Levo); a prior isolated on a ucx from the same day isolated MDR PsA (I. Cefepime, R ceftzadime, Meropenem; S. Tygecicine, amikacin) -renal u/s: Nondiagnostic exam 04/23 MRSA bacteremia- ?source, r/o endocarditis -01/16 04/23 BCx S. aureus (sensi pending), repeat Bcx 01/19 NTD -TTE (limited study): No aortic regurgitation.Trace mitral regurgitation.Mitral diastolic velocities suggest reduced left ventricular relaxation c/w diastolic dysfunction grade 1.Moderate tricuspid regurgitation. 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 -Continue IV Vancomycin #5 For MRSA bacteremia -s/p 3d IV vanco 01/18 -Monitor Cr/LFts on above regimen -f/u repeat infectious w/u: ucx, bcx, sp cx -given multiple broad IV abx, will start Prophylatic PO Vancomycin 125mg bid for cdiff -if febrile, persistent bacteremia, will need NAM to evaluate for endocarditis ( TTE was limited) -Monitor CBC/BMP, temperatures Discussed with RN Subjective Allergies: Coded Allergies: PENICILLINS (Unverified Allergy, Unknown, 03/22/15) Subjective afebrile worsenign leukocytosis sp cx growing GNB bcx NTD CXR with CHF discussion for possible comfort care Objective Vital Signs Last 24 Hour Vital Signs Date Time Temp Pulse Resp B/P (MAP) Pulse Ox O2 Delivery O2 Flow Rate FiO2 01/23/17 17:03 81 20 40 01/23/17 17:00 80 21 140/54 98 Mechanical Ventilator 40 01/23/17 16:00 98.0 82 21 121/55 97 Mechanical Ventilator 40 01/23/17 16:00 81 01/23/17 15:00 40 01/23/17 15:00 83 21 138/58 97 Mechanical Ventilator 30 01/23/17 14:52 83 20 40 01/23/17 14:00 85 21 140/53 93 Mechanical Ventilator 30 01/23/17 13:01 82 22 30 01/23/17 12:00 30 01/23/17 12:00 65 01/23/17 12:00 97.6 65 18 99/38 93 Mechanical Ventilator 30 01/23/17 11:15 78 18 30 01/23/17 11:00 60 18 119/69 95 Mechanical Ventilator 30 01/23/17 10:00 68 21 112/43 94 Mechanical Ventilator 30 01/23/17 09:02 88 23 30 01/23/17 09:00 84 20 101/39 94 Mechanical Ventilator 30 01/23/17 08:00 85 01/23/17 08:00 30 01/23/17 08:00 97.8 84 20 131/72 94 Mechanical Ventilator 30 01/23/17 07:00 84 16 109/47 95 Mechanical Ventilator 30 01/23/17 06:44 75 18 30 01/23/17 06:00 87 16 120/37 95 Mechanical Ventilator 30 01/23/17 05:00 82 16 82/39 95 Mechanical Ventilator 30 01/23/17 04:51 83 19 30 01/23/17 04:00 83 01/23/17 04:00 30 01/23/17 04:00 97.1 82 18 90/28 96 Mechanical Ventilator 30 01/23/17 03:00 88 16 98/56 95 Mechanical Ventilator 30 01/23/17 02:38 91 20 30 01/23/17 02:00 90 16 87/33 95 Mechanical Ventilator 30 01/23/17 01:20 85 18 30 01/23/17 01:00 84 16 104/46 95 Mechanical Ventilator 30 01/23/17 00:00 97.5 86 18 95/46 96 Mechanical Ventilator 30 01/23/17 00:00 90 01/22/17 23:10 88 20 30 01/22/17 23:00 90 16 110/42 95 Mechanical Ventilator 30 01/22/17 22:00 88 15 95/46 95 Mechanical Ventilator 30 01/22/17 21:19 89 20 30 01/22/17 21:00 90 15 109/42 95 Mechanical Ventilator 30 01/22/17 20:00 30 01/22/17 20:00 97.5 85 18 101/44 96 Mechanical Ventilator 30 01/22/17 20:00 86 01/22/17 19:25 86 18 30 01/22/17 19:00 84 15 106/44 95 Mechanical Ventilator 30 Height (Feet): 5 Height (Inches): 6.00 Weight (Pounds): 250 Objective HEENT: No pale conjunctivae. No icterus.ETT in place NECK: No lymphadenopathy. CHEST: coarse breath sounds HEART: S1 and S2. ABDOMEN: Soft and obese. EXTREMITIES: No cyanosis. NEUROLOGIC: lethargic. Skin: no rashes Microbiology Date/Time Source Procedure Growth Status 01/22/17 11:00 Sputum Expectorated Gram Stain - Final Resulted 01/22/17 11:00 Sputum Culture - Preliminary Gram Negative Bacillus 1 Resulted 01/22/17 11:00 Urine,Clean Catch Urine Culture - Preliminary Resulted Laboratory Tests Test 01/23/17 04:00 01/23/17 06:44 White Blood Count 14.6 K/UL (4.8-10.8) H Red Blood Count 2.32 M/UL (4.20-5.40) L Hemoglobin 7.3 G/DL (12.0-16.0) L Hematocrit 23.9 % (37.0-47.0) L Mean Corpuscular Volume 103 FL (80-99) H Mean Corpuscular Hemoglobin 31.5 PG (27.0-31.0) H Mean Corpuscular Hemoglobin Concent 30.6 G/DL (32.0-36.0) L Red Cell Distribution Width 17.1 % (11.6-14.8) H Platelet Count 27 K/UL (150-450) L Mean Platelet Volume 12.9 FL (6.5-10.1) H Neutrophils (%) (Auto) % (45.0-75.0) Lymphocytes (%) (Auto) % (20.0-45.0) Monocytes (%) (Auto) % (1.0-10.0) Eosinophils (%) (Auto) % (0.0-3.0) Basophils (%) (Auto) % (0.0-2.0) Differential Total Cells Counted 100 Neutrophils % (Manual) 90 % (45-75) H Lymphocytes % (Manual) 7 % (20-45) L Monocytes % (Manual) 3 % (1-10) Eosinophils % (Manual) 0 % (0-3) Basophils % (Manual) 0 % (0-2) Band Neutrophils 0 % (0-8) Platelet Estimate Decreased L Platelet Morphology Normal Hypochromasia 1+ Anisocytosis 1+ Macrocytosis 1+ Sodium Level 149 mEQ/L (135-145) H Potassium Level 4.4 mEQ/L (3.4-4.9) Chloride Level 120 mEQ/L (98-107) H Carbon Dioxide Level 20 mEQ/L (20-30) Anion Gap 9 (5-15) Blood Urea Nitrogen 45 mg/dL (7-23) H Creatinine 2.8 mg/dL (0.5-0.9) H Estimat Glomerular Filtration Rate mL/min (>60) Glucose Level 196 mg/dL (74-106) H Uric Acid 9.8 mg/dL (3.0-7.5) H Calcium Level 9.0 mg/dL (8.6-10.2) Phosphorus Level 2.4 mg/dL (2.5-4.8) L Magnesium Level 1.8 mg/dL (1.7-2.5) Total Bilirubin 0.6 mg/dL (0.0-1.2) Aspartate Amino Transf (AST/SGOT) 51 U/L (5-40) H Alanine Aminotransferase (ALT/SGPT) 12 U/L (3-33) Alkaline Phosphatase 120 U/L (35-104) H C-Reactive Protein, Quantitative 4.0 mg/dL (< 0.5) H Pro-B-Type Natriuretic Peptide 86889 pg/mL (0-450) H Total Protein 5.3 g/dL (6.6-8.7) L Albumin 2.1 g/dL (3.5-5.2) L Globulin 3.2 g/dL Albumin/Globulin Ratio 0.6 (1.0-2.7) L Arterial Blood pH 7.409 (7.350-7.450) Arterial Blood Partial Pressure CO2 31.1 mmHg (35.0-45.0) L Arterial Blood Partial Pressure O2 92.5 mmHg (75.0-100.0) Arterial Blood HCO3 19.5 mmol/L (22.0-26.0) L Arterial Blood Oxygen Saturation 96.7 % (92.0-98.0) Arterial Blood Base Excess -4.8 Bon Test Positive Current Medications Medications (Trade) Dose Ordered Sig/Pavel Route PRN Reason Start Time Stop Time Status Last Admin Dose Admin Acetaminophen (Tylenol) 650 mg Q4H PRN ORAL T>100.5 01/21/17 14:30 02/15/17 14:29 Albumin Human 100 ml @ 100 mls/hr Q6H IV 01/23/17 15:00 02/22/17 14:59 01/23/17 15:19 Albuterol/ Ipratropium (DuoNeb 0.5-3(2.5)mg/3ml) 3 ml Q4H PRN HHN Shortness of Breath 01/21/17 14:30 01/28/17 14:29 Cefepime HCl 1 gm/ Dextrose 55 ml @ 110 mls/hr Q24H IVPB 01/21/17 15:00 01/24/17 14:59 01/23/17 15:17 Clotrimazole (Lotrimin) 1 applic EVERY 12 HOURS TOPIC 01/21/17 21:00 02/18/17 13:59 01/23/17 08:46 Dextrose 1,000 ml @ 60 mls/hr [id number] IV 01/23/17 16:00 02/22/17 15:59 01/23/17 16:00 Dextrose (Dextrose 50%) STAT PRN IV Hypoglycemia 01/21/17 14:30 02/17/17 14:29 Insulin Aspart (NovoLOG) EVERY 6 HOURS SUBQ 01/22/17 12:00 02/15/17 16:29 01/23/17 11:51 Lactulose (Cephulac) 10 gm BID ORAL 01/23/17 09:00 02/18/17 12:59 01/23/17 08:44 Lorazepam (Ativan 2mg/ml 1ml) 2 mg Q4H PRN IV For Anxiety 01/22/17 06:45 01/29/17 06:44 01/23/17 09:10 Minocycline HCl (Minocin) 100 mg Q12HR ORAL 01/21/17 21:00 01/25/17 12:29 01/23/17 08:44 Morphine Sulfate (Morphine Sulfate) 4 mg Q4H PRN IVP For Pain 01/22/17 06:45 01/29/17 06:44 Nitroglycerin (Ntg) 0.4 mg Q5MIN X 3 DOSES PRN SL Prn Chest Pain 01/21/17 14:30 02/15/17 14:29 Nystatin (Nystop Powder) 1 applic THREE TIMES A DAY TOPIC 01/22/17 13:00 02/21/17 12:59 01/23/17 12:59 Ondansetron HCl (Zofran) 4 mg Q6H PRN IVP Nausea & Vomiting 01/21/17 14:30 02/15/17 14:29 Pantoprazole (Protonix) 40 mg EVERY 12 HOURS IVP 01/21/17 21:00 02/20/17 20:59 01/23/17 08:46 Polyethylene Glycol (Miralax) 17 gm DAILYPRN PRN ORAL Constipation 01/21/17 14:00 02/17/17 13:59 Rifaximin (Xifaxan) 550 mg EVERY 12 HOURS ORAL 01/21/17 21:00 01/23/17 20:59 01/23/17 08:44 Vancomycin HCl (Vanco rx to dose) 1 ea DAILY PRN MISC Per rx protocol 01/22/17 09:00 02/18/17 11:44 Nereyda Monroe M.D. Jan 23, 2017 18:27
[2017-01-23] MEDS ORDERED: Amikacin Rx to dose MISC PRN (18:30)
--- NOTE | 2017-01-23 19:12 | General Progress Note ---
Assessment/Plan Assessment/Plan Assessment - Respiratory failure - Renal failure - ? HRS - DURANT with cirrhosis - Hepatic encephalopathy - elevated CEA with negative recent EGD/Colon - Heme (+) - likely from portal HTN gastropathy - AMS - Azotemia Recommendations - Albumin trial - If no response in next 24 hours, will consider Octreotide/Midodrine - Lactulose & Xifaxan - Aspiration precautions - follow labs - Tube feeding Subjective Allergies: Coded Allergies: PENICILLINS (Unverified Allergy, Unknown, 03/22/15) Subjective intubated seen in ICU Na better today but has become anuric Objective Last 24 Hour Vital Signs Date Time Temp Pulse Resp B/P (MAP) Pulse Ox O2 Delivery O2 Flow Rate FiO2 01/23/17 18:00 79 21 130/60 96 Mechanical Ventilator 40 01/23/17 17:03 81 20 40 01/23/17 17:00 80 21 140/54 98 Mechanical Ventilator 40 01/23/17 16:00 98.0 82 21 121/55 97 Mechanical Ventilator 40 01/23/17 16:00 81 01/23/17 15:00 40 01/23/17 15:00 83 21 138/58 97 Mechanical Ventilator 30 01/23/17 14:52 83 20 40 01/23/17 14:00 85 21 140/53 93 Mechanical Ventilator 30 01/23/17 13:01 82 22 30 01/23/17 12:00 30 01/23/17 12:00 65 01/23/17 12:00 97.6 65 18 99/38 93 Mechanical Ventilator 30 01/23/17 11:15 78 18 30 01/23/17 11:00 60 18 119/69 95 Mechanical Ventilator 30 01/23/17 10:00 68 21 112/43 94 Mechanical Ventilator 30 01/23/17 09:02 88 23 30 01/23/17 09:00 84 20 101/39 94 Mechanical Ventilator 30 01/23/17 08:00 85 01/23/17 08:00 30 01/23/17 08:00 97.8 84 20 131/72 94 Mechanical Ventilator 30 01/23/17 07:00 84 16 109/47 95 Mechanical Ventilator 30 01/23/17 06:44 75 18 30 01/23/17 06:00 87 16 120/37 95 Mechanical Ventilator 30 01/23/17 05:00 82 16 82/39 95 Mechanical Ventilator 30 01/23/17 04:51 83 19 30 01/23/17 04:00 83 01/23/17 04:00 30 01/23/17 04:00 97.1 82 18 90/28 96 Mechanical Ventilator 30 01/23/17 03:00 88 16 98/56 95 Mechanical Ventilator 30 01/23/17 02:38 91 20 30 01/23/17 02:00 90 16 87/33 95 Mechanical Ventilator 30 01/23/17 01:20 85 18 30 01/23/17 01:00 84 16 104/46 95 Mechanical Ventilator 30 01/23/17 00:00 97.5 86 18 95/46 96 Mechanical Ventilator 30 01/23/17 00:00 90 01/22/17 23:10 88 20 30 01/22/17 23:00 90 16 110/42 95 Mechanical Ventilator 30 01/22/17 22:00 88 15 95/46 95 Mechanical Ventilator 30 01/22/17 21:19 89 20 30 01/22/17 21:00 90 15 109/42 95 Mechanical Ventilator 30 01/22/17 20:00 30 01/22/17 20:00 97.5 85 18 101/44 96 Mechanical Ventilator 30 01/22/17 20:00 86 01/22/17 19:25 86 18 30 Intake and Output 01/23/17 01/24/17 19:00 07:00 Intake Total 1505 ml Output Total 60 ml Balance 1445 ml Free Water 100 ml IV Total 1075 ml Tube Feeding 330 ml Output Urine Total 60 ml Laboratory Tests 01/23/17 04:00: White Blood Count 14.6H, Red Blood Count 2.32L, Hemoglobin 7.3L, Hematocrit 23.9L, Mean Corpuscular Volume 103H, Mean Corpuscular Hemoglobin 31.5H, Mean Corpuscular Hemoglobin Concent 30.6L, Red Cell Distribution Width 17.1H, Platelet Count 27L, Mean Platelet Volume 12.9H, Neutrophils (%) (Auto) , Lymphocytes (%) (Auto) , Monocytes (%) (Auto) , Eosinophils (%) (Auto) , Basophils (%) (Auto) , Differential Total Cells Counted 100, Neutrophils % ( Manual) 90H, Lymphocytes % (Manual) 7L, Monocytes % (Manual) 3, Eosinophils % ( Manual) 0, Basophils % (Manual) 0, Band Neutrophils 0, Platelet Estimate DecreasedL, Platelet Morphology Normal, Hypochromasia 1+, Anisocytosis 1+, Macrocytosis 1+, Sodium Level 149H, Potassium Level 4.4, Chloride Level 120H, Carbon Dioxide Level 20, Anion Gap 9, Blood Urea Nitrogen 45H, Creatinine 2.8H, Estimat Glomerular Filtration Rate , Glucose Level 196H, Uric Acid 9.8H, Calcium Level 9.0, Phosphorus Level 2.4L, Magnesium Level 1.8, Total Bilirubin 0.6, Aspartate Amino Transf (AST/SGOT) 51H, Alanine Aminotransferase (ALT/SGPT) 12, Alkaline Phosphatase 120H, C-Reactive Protein, Quantitative 4.0H, Pro-B- Type Natriuretic Peptide 32927O, Total Protein 5.3L, Albumin 2.1L, Globulin 3.2 , Albumin/Globulin Ratio 0.6L 01/23/17 06:44: Arterial Blood pH 7.409, Arterial Blood Partial Pressure CO2 31.1L, Arterial Blood Partial Pressure O2 92.5, Arterial Blood HCO3 19.5L, Arterial Blood Oxygen Saturation 96.7, Arterial Blood Base Excess -4.8, Bon Test Positive Height (Feet): 5 Height (Inches): 6.00 Weight (Pounds): 250 Objective Obese WW NCAT supple CTA RRR soft ND NT (+) edema confused KIERSTEN DAVIES Jan 23, 2017 19:12
[2017-01-23] MEDS: Vancomycin oral 125mg/2.5ml ORAL SCH (20:51)
--- NOTE | 2017-01-23 22:30 | Progress Note ---
DATE: 01/23/2017 Subjective: The patient has been presenting with no anxiety or agitation. Yesterday, she was agitated. The patient is presenting with waxing and waning consciousness, not responsive, lethargic. The patient has cognitive impairment. At her baseline, the patient is usually alert and oriented x4. For the past 1 month, she has been deteriorating. Mental Status Examination: The patient is lethargic. She has no eye contact. Affect is flat. Thought process, there is a paucity of thought content. Cognition is impaired. ASSESSMENT: 1. Encephalopathy. 2. Depression. PLAN: We will continue the current medications. Oj Medel M.D. DR: Avni JOB#: [id number] CC:
[2017-01-24] VITALS (24 sets, daily range): BP systolic 82–143; BP diastolic 38–62
[2017-01-24] MEDS: NovoLOG Insulin Flexpen SUBQ SCH ×3 (05:43→17:42)
[2017-01-24] MEDS: Minocycline HCl 50mg cap ORAL SCH (08:46)
[2017-01-24] MEDS: Lactulose 10gm/15ml UDC ORAL SCH ×2 (08:46→17:41)
[2017-01-24] MEDS: Pantoprazole Inj IVP SCH ×2 (08:46→20:56)
[2017-01-24] MEDS: Nystatin Powder 100,000 units/gm 15gm TOPIC SCH ×3 (08:56→17:41)
[2017-01-24] MEDS ORDERED: Amikacin 500 MG in D5W 110 ML IV SCH (09:00)
--- NOTE | 2017-01-24 09:18 | Infectious Diseases Prog Note ---
Assessment/Plan Assessment/Plan Assesment: Encephalopathy- possibly multifactorial- hepatic encephalopathy, infection- worsening now due to hypercapnea (transferrd to ICU 01/21), on bipap> intubated- r/o PNA -CXR 01/23 : Interval worsening pulmonary edema. Leukocytosis, worsening; no CBC today -01/22 u/a WBC 30-40, ucx yeast (colonizer) -Sp cx ESBL E.coli, diaz (colonizer) -Bcx NTD Probable MDR UTI, pyuria, on Tx -u/a 01/16 WBC too many to count,nit neg ,leuk est +3; UCx x3 grew >100K MDR A.baumani complex (S. tigecycline/Minocycline, Polymixin B/Colistin), >100K PsA (S. Cefepime, Zosyn; R Cipro/Levo); a prior isolated on a ucx from the same day isolated MDR PsA (I. Cefepime, R ceftzadime, Meropenem; S. Tygecicine, amikacin) -renal u/s: Nondiagnostic exam Persistent MRSA bacteremia- ?source, r/o endocarditis -01/16 04/23 BCx S. aureus (sensi pending), repeat Bcx 01/19 NTD, 01/21 (PIV) 1/2 GPC clusters -TTE (limited study): No aortic regurgitation.Trace mitral regurgitation.Mitral diastolic velocities suggest reduced left ventricular relaxation c/w diastolic dysfunction grade 1.Moderate tricuspid regurgitation. RAMYA on CKD, worsening Cirrhosis Anemia & thrombocytopenia DM type 2 Morbid obesity PLAN: -D/C IV Cefepime and Amikacin and transition to Ertapenem for ESBL E. coli in sputum (will start tomorrow as received dose of Amikacin this am); abx d# 3 -s/p 7d Cefepime 01/24 -s/p 3d Amikacin 01/24 -Last day of Minocycline 10/24 for MDR ABC -Continue IV Vancomycin #6 For MRSA bacteremia -s/p 3d IV vanco 01/18 -repeat 2 sets of bcx, still bacteremic (one from central line, one peripheral) -Monitor Cr/LFts on above regimen -f/u repeat infectious w/u: ucx, bcx, sp cx -given multiple broad IV abx, continue Prophylatic PO Vancomycin 125mg bid #2 for cdiff -if consistent with goals of care, will need NAM to evaluate for endocarditis ( TTE was limited) and persistent bacteremia -goals of care pending -Monitor CBC/BMP, temperatures; CBC/CMP STAT Discussed with RN, pharmacy staff Poor px; critically ill Subjective Allergies: Coded Allergies: PENICILLINS (Unverified Allergy, Unknown, 03/22/15) Subjective no labs today yet afebrile sp cx grew ESBL e.coli and diaz repeat bcx also growing GPC clusters CXR with CHF remains critically ill discussion for possible comfort care Objective Vital Signs Last 24 Hour Vital Signs Date Time Temp Pulse Resp B/P (MAP) Pulse Ox O2 Delivery O2 Flow Rate FiO2 01/24/17 08:00 50 01/24/17 08:00 35 01/24/17 08:00 97.6 50 17 111/49 100 Mechanical Ventilator 35 01/24/17 07:11 50 18 40 01/24/17 07:00 56 19 92/39 95 Mechanical Ventilator 35 01/24/17 06:00 58 19 99/41 93 Mechanical Ventilator 35 01/24/17 05:00 68 26 120/45 95 Mechanical Ventilator 35 01/24/17 04:43 68 17 35 01/24/17 04:00 97.7 71 14 111/53 100 Mechanical Ventilator 35 01/24/17 04:00 71 01/24/17 04:00 35 01/24/17 03:00 60 26 113/53 96 Mechanical Ventilator 35 01/24/17 02:43 70 18 35 01/24/17 02:00 58 19 97/42 95 Mechanical Ventilator 35 01/24/17 01:20 67 18 35 01/24/17 01:00 59 19 94/43 95 Mechanical Ventilator 35 01/24/17 00:00 35 01/24/17 00:00 97.8 61 18 99/40 93 Mechanical Ventilator 35 01/24/17 00:00 61 01/23/17 23:00 63 18 111/59 95 Mechanical Ventilator 35 01/23/17 22:31 63 18 35 01/23/17 22:00 60 19 93/42 96 Mechanical Ventilator 40 01/23/17 21:09 73 21 40 01/23/17 21:00 66 19 106/32 96 Mechanical Ventilator 40 01/23/17 20:00 40 01/23/17 20:00 97.8 79 21 130/44 96 Mechanical Ventilator 40 01/23/17 20:00 79 01/23/17 19:18 80 23 40 01/23/17 19:00 80 21 143/54 96 Mechanical Ventilator 40 01/23/17 18:00 79 21 130/60 96 Mechanical Ventilator 40 01/23/17 17:03 81 20 40 01/23/17 17:00 80 21 140/54 98 Mechanical Ventilator 40 01/23/17 16:00 98.0 82 21 121/55 97 Mechanical Ventilator 40 01/23/17 16:00 81 01/23/17 15:00 40 01/23/17 15:00 83 21 138/58 97 Mechanical Ventilator 30 01/23/17 14:52 83 20 40 01/23/17 14:00 85 21 140/53 93 Mechanical Ventilator 30 01/23/17 13:01 82 22 30 01/23/17 12:00 30 01/23/17 12:00 65 01/23/17 12:00 97.6 65 18 99/38 93 Mechanical Ventilator 30 01/23/17 11:15 78 18 30 01/23/17 11:00 60 18 119/69 95 Mechanical Ventilator 30 01/23/17 10:00 68 21 112/43 94 Mechanical Ventilator 30 Height (Feet): 5 Height (Inches): 6.00 Weight (Pounds): 265 Objective HEENT: No pale conjunctivae. No icterus.ETT in place NECK: No lymphadenopathy. CHEST: coarse breath sounds HEART: S1 and S2. ABDOMEN: Soft and obese. EXTREMITIES: No cyanosis. NEUROLOGIC: lethargic. Skin: no rashes Microbiology Date/Time Source Procedure Growth Status 01/21/17 10:15 Blood Blood Culture - Preliminary NO GROWTH AFTER 24 HOURS Resulted 01/21/17 10:00 Blood Blood Culture - Preliminary NO GROWTH AFTER 24 HOURS Resulted 01/22/17 11:00 Sputum Expectorated Gram Stain - Final Complete 01/22/17 11:00 Sputum Culture - Final Escherichia Coli - Esbl Diaz Albicans Complete 01/22/17 11:00 Urine,Clean Catch Urine Culture - Preliminary YEAST Resulted Laboratory Tests Test 01/23/17 19:00 01/24/17 04:00 Random Amikacin Level 11.8 ug/mL Random Vancomycin Level 23.9 ug/mL Current Medications Medications (Trade) Dose Ordered Sig/Pavel Route PRN Reason Start Time Stop Time Status Last Admin Dose Admin Acetaminophen (Tylenol) 650 mg Q4H PRN ORAL T>100.5 01/21/17 14:30 02/15/17 14:29 Albumin Human 100 ml @ 100 mls/hr Q6H IV 01/24/17 09:30 01/25/17 10:00 Albuterol/ Ipratropium (DuoNeb 0.5-3(2.5)mg/3ml) 3 ml Q4H PRN HHN Shortness of Breath 01/21/17 14:30 01/28/17 14:29 Amikacin Protocol (Amikacin pharmacy to dose) 1 ea DAILY PRN MISC Per rx protocol 01/23/17 18:30 02/22/17 18:29 Amikacin Sulfate 500 mg/Dextrose 112 ml @ 100 mls/hr Q48H IV 01/24/17 09:00 01/31/17 08:59 Cefepime HCl 1 gm/ Dextrose 55 ml @ 110 mls/hr Q24H IVPB 01/21/17 15:00 01/24/17 14:59 01/23/17 15:17 Chlorhexidine Gluconate (Dianne-Hex 2%) 1 applic BIOTEC TOPIC 01/24/17 21:00 02/23/17 20:59 Clotrimazole (Lotrimin) 1 applic EVERY 12 HOURS TOPIC 01/21/17 21:00 02/18/17 13:59 01/24/17 08:56 Dextrose 1,000 ml @ 60 mls/hr [id number] IV 01/23/17 16:00 02/22/17 15:59 01/24/17 08:45 Dextrose (Dextrose 50%) STAT PRN IV Hypoglycemia 01/21/17 14:30 02/17/17 14:29 Insulin Aspart (NovoLOG) EVERY 6 HOURS SUBQ 01/22/17 12:00 02/15/17 16:29 01/24/17 05:43 Lactulose (Cephulac) 10 gm BID ORAL 01/23/17 09:00 02/18/17 12:59 01/24/17 08:46 Lorazepam (Ativan 2mg/ml 1ml) 2 mg Q4H PRN IV For Anxiety 01/22/17 06:45 01/29/17 06:44 01/23/17 09:10 Minocycline HCl (Minocin) 100 mg Q12HR ORAL 01/21/17 21:00 01/25/17 12:29 01/24/17 08:46 Morphine Sulfate (Morphine Sulfate) 4 mg Q4H PRN IVP For Pain 01/22/17 06:45 01/29/17 06:44 Nitroglycerin (Ntg) 0.4 mg Q5MIN X 3 DOSES PRN SL Prn Chest Pain 01/21/17 14:30 02/15/17 14:29 Nystatin (Nystop Powder) 1 applic THREE TIMES A DAY TOPIC 01/22/17 13:00 02/21/17 12:59 01/24/17 08:56 Ondansetron HCl (Zofran) 4 mg Q6H PRN IVP Nausea & Vomiting 01/21/17 14:30 02/15/17 14:29 Pantoprazole (Protonix) 40 mg EVERY 12 HOURS IVP 01/21/17 21:00 02/20/17 20:59 01/24/17 08:46 Polyethylene Glycol (Miralax) 17 gm DAILYPRN PRN ORAL Constipation 01/21/17 14:00 02/17/17 13:59 Vancomycin HCl (Vanco rx to dose) 1 ea DAILY PRN MISC Per rx protocol 01/22/17 09:00 02/18/17 11:44 Vancomycin HCl (Vancomycin) 125 mg BID ORAL 01/23/17 19:30 01/30/17 19:29 01/23/17 20:51 Nereyda Monroe M.D. Jan 24, 2017 09:18
[2017-01-24] MEDS: Vancomycin oral 125mg/2.5ml ORAL SCH ×2 (09:31→17:41)
--- NOTE | 2017-01-24 09:35 | General Progress Note ---
Assessment/Plan Status: unchanged Status Narrative doing poorly- in process of family discussion to get comfort care only order ! Assessment/Plan Acute on chronic renal failure- multifactorial CHF DM HTN Sepsis Now: Acute respiratory failure- Intubated - Altered level of consciousness - ESBL (extended spectrum beta-lactamase) producing bacteria infection - Cardiomegaly - DM (diabetes mellitus) - HTN (hypertension) - UTI (urinary tract infection) - Anemia - High Cholestrol - COPD - YELENA - Fatty liver Plan: no labs today Transfuse- D5W 75 cc hour Optimize cardiac and pulmonary status 2D echo results noted avoid nephrotoxics monitor renal parameters Urine studies per orders Subjective ROS Limited/Unobtainable: Yes Allergies: Coded Allergies: PENICILLINS (Unverified Allergy, Unknown, 03/22/15) Objective Last 24 Hour Vital Signs Date Time Temp Pulse Resp B/P (MAP) Pulse Ox O2 Delivery O2 Flow Rate FiO2 01/24/17 08:00 50 01/24/17 08:00 35 01/24/17 08:00 97.6 50 17 111/49 100 Mechanical Ventilator 35 01/24/17 07:11 50 18 40 01/24/17 07:00 56 19 92/39 95 Mechanical Ventilator 35 01/24/17 06:00 58 19 99/41 93 Mechanical Ventilator 35 01/24/17 05:00 68 26 120/45 95 Mechanical Ventilator 35 01/24/17 04:43 68 17 35 01/24/17 04:00 97.7 71 14 111/53 100 Mechanical Ventilator 35 01/24/17 04:00 71 01/24/17 04:00 35 01/24/17 03:00 60 26 113/53 96 Mechanical Ventilator 35 01/24/17 02:43 70 18 35 01/24/17 02:00 58 19 97/42 95 Mechanical Ventilator 35 01/24/17 01:20 67 18 35 01/24/17 01:00 59 19 94/43 95 Mechanical Ventilator 35 01/24/17 00:00 35 01/24/17 00:00 97.8 61 18 99/40 93 Mechanical Ventilator 35 01/24/17 00:00 61 01/23/17 23:00 63 18 111/59 95 Mechanical Ventilator 35 01/23/17 22:31 63 18 35 01/23/17 22:00 60 19 93/42 96 Mechanical Ventilator 40 01/23/17 21:09 73 21 40 01/23/17 21:00 66 19 106/32 96 Mechanical Ventilator 40 01/23/17 20:00 40 01/23/17 20:00 97.8 79 21 130/44 96 Mechanical Ventilator 40 01/23/17 20:00 79 01/23/17 19:18 80 23 40 01/23/17 19:00 80 21 143/54 96 Mechanical Ventilator 40 01/23/17 18:00 79 21 130/60 96 Mechanical Ventilator 40 01/23/17 17:03 81 20 40 01/23/17 17:00 80 21 140/54 98 Mechanical Ventilator 40 01/23/17 16:00 98.0 82 21 121/55 97 Mechanical Ventilator 40 01/23/17 16:00 81 01/23/17 15:00 40 01/23/17 15:00 83 21 138/58 97 Mechanical Ventilator 30 01/23/17 14:52 83 20 40 01/23/17 14:00 85 21 140/53 93 Mechanical Ventilator 30 01/23/17 13:01 82 22 30 01/23/17 12:00 30 01/23/17 12:00 65 01/23/17 12:00 97.6 65 18 99/38 93 Mechanical Ventilator 30 01/23/17 11:15 78 18 30 01/23/17 11:00 60 18 119/69 95 Mechanical Ventilator 30 01/23/17 10:00 68 21 112/43 94 Mechanical Ventilator 30 Intake and Output 01/24/17 01/25/17 19:00 07:00 Intake Total 90 ml Output Total 0 ml Balance 90 ml IV Total 60 ml Tube Feeding 30 ml Output Urine Total 0 ml Laboratory Tests 01/23/17 19:00: Random Amikacin Level 11.8 01/24/17 04:00: Random Vancomycin Level 23.9 Height (Feet): 5 Height (Inches): 6.00 Weight (Pounds): 265 EENT: other - on vent Cardiovascular: bradycardia Respiratory/Chest: decreased breath sounds Objective no change ANDERS MOLINA Jan 24, 2017 09:34
[2017-01-24] MEDS ORDERED: Amikacin 500 MG in D5W 110 ML IV ONE (10:00)
[2017-01-24 10:47] LABS: HEMATOCRIT 25.1 % (37.0-47.0); HEMOGLOBIN 7.5 G/DL (12.0-16.0); MEAN CORPUSCULAR VOLUME 103 FL (80-99); PLATELET COUNT 20 K/UL (150-450); RED BLOOD COUNT 2.44 M/UL (4.20-5.40); WHITE BLOOD COUNT 13.3 K/UL (4.8-10.8)
[2017-01-24 10:57] LABS: ALANINE AMINOTRANSFERASE 10 U/L (3-33); ALBUMIN 3.1 g/dL (3.5-5.2); ALBUMIN/GLOBULIN RATIO 0.8 (1.0-2.7); ALKALINE PHOSPHATASE 98 U/L (35-104); ANION GAP 13 (5-15); ASPARTATE AMINO TRANSFERASE 38 U/L (5-40); BILIRUBIN,TOTAL 1.1 mg/dL (0.0-1.2); BLOOD UREA NITROGEN 53 mg/dL (7-23); CALCIUM 9.2 mg/dL (8.6-10.2); CARBON DIOXIDE 21 mEQ/L (20-30); CHLORIDE 110 mEQ/L (98-107); CREATININE 3.2 mg/dL (0.5-0.9); POTASSIUM 3.9 mEQ/L (3.4-4.9); SODIUM 144 mEQ/L (135-145)
--- NOTE | 2017-01-24 11:01 | Pulmonolgy Critical Care Note ---
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 Respiratory: monitor respiratory rate, adjust FIO2, CXR Cardiac: continue to monitor HR/BP Renal: F/U I&O, keep IV fluid, increase IV fluid, check electrolytes Infectious Disease: check cultures, continue antibiotics Gastrointestinal: hold feedings Endocrine: monitor blood sugar, check HgA1C, continue sliding scale insulin Hematologic: monitor H/H, transfuse if hgb<8.5, other - called dr. 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 Discussed with: nurses, consultants, vocational case managerinternational manager - Objective Last 24 Hour Vital Signs Date Time Temp Pulse Resp B/P (MAP) Pulse Ox O2 Delivery O2 Flow Rate FiO2 01/24/17 09:36 57 18 40 01/24/17 09:00 71 19 99/47 96 Mechanical Ventilator 35 01/24/17 08:00 50 01/24/17 08:00 35 01/24/17 08:00 97.6 50 17 111/49 100 Mechanical Ventilator 35 01/24/17 07:11 50 18 40 01/24/17 07:00 56 19 92/39 95 Mechanical Ventilator 35 01/24/17 06:00 58 19 99/41 93 Mechanical Ventilator 35 01/24/17 05:00 68 26 120/45 95 Mechanical Ventilator 35 01/24/17 04:43 68 17 35 01/24/17 04:00 97.7 71 14 111/53 100 Mechanical Ventilator 35 01/24/17 04:00 71 01/24/17 04:00 35 01/24/17 03:00 60 26 113/53 96 Mechanical Ventilator 35 01/24/17 02:43 70 18 35 01/24/17 02:00 58 19 97/42 95 Mechanical Ventilator 35 01/24/17 01:20 67 18 35 01/24/17 01:00 59 19 94/43 95 Mechanical Ventilator 35 01/24/17 00:00 35 01/24/17 00:00 97.8 61 18 99/40 93 Mechanical Ventilator 35 01/24/17 00:00 61 10/6/17 23:00 63 18 111/59 95 Mechanical Ventilator 35 01/23/17 22:31 63 18 35 01/23/17 22:00 60 19 93/42 96 Mechanical Ventilator 40 01/23/17 21:09 73 21 40 01/23/17 21:00 66 19 106/32 96 Mechanical Ventilator 40 01/23/17 20:00 40 01/23/17 20:00 97.8 79 21 130/44 96 Mechanical Ventilator 40 01/23/17 20:00 79 01/23/17 19:18 80 23 40 01/23/17 19:00 80 21 143/54 96 Mechanical Ventilator 40 01/23/17 18:00 79 21 130/60 96 Mechanical Ventilator 40 01/23/17 17:03 81 20 40 01/23/17 17:00 80 21 140/54 98 Mechanical Ventilator 40 01/23/17 16:00 98.0 82 21 121/55 97 Mechanical Ventilator 40 01/23/17 16:00 81 01/23/17 15:00 40 01/23/17 15:00 83 21 138/58 97 Mechanical Ventilator 30 01/23/17 14:52 83 20 40 01/23/17 14:00 85 21 140/53 93 Mechanical Ventilator 30 01/23/17 13:01 82 22 30 01/23/17 12:00 30 01/23/17 12:00 65 01/23/17 12:00 97.6 65 18 99/38 93 Mechanical Ventilator 30 01/23/17 11:15 78 18 30 01/23/17 11:00 60 18 119/69 95 Mechanical Ventilator 30 Status: awake Condition: critical HEENT: atraumatic Neck: full ROM Lungs: clear, chest wall tender Heart: HR/BP stable, regular Abdomen: non-tender, active bowel sounds Extremities: no C/C/E, edema Decubiti: stage Micro: Microbiology Date/Time Source Procedure Growth Status 01/22/17 11:00 Sputum Expectorated Gram Stain - Final Complete 01/22/17 11:00 Sputum Culture - Final Escherichia Coli - Esbl Colleen Albicans Complete 01/22/17 11:00 Urine,Clean Catch Urine Culture - Preliminary YEAST Resulted Accucheck: 210 Critical Care - Subjective ROS Limited/Unobtainable: No ICU Day: 4 Intubation Day: 4 Condition: critical EKG Rhythm: Sinus Rhythm FI02: 40 Vent Support Breath Rate: 18 Vent Support Mode: AC Vent Tidal Volume: 600 Sputum Amount: Scant PEEP: 0.0 PIP: 42 Fluids: d5w 75 cc/hour Tube Feeding Amount: 30 I&O: Intake and Output 01/24/17 01/25/17 19:00 07:00 Intake Total 150 ml Output Total 0 ml Balance 150 ml IV Total 60 ml Tube Feeding 60 ml Other 30 ml Output Urine Total 0 ml CXR: unchanged ET-Tube: 7.0 ET Position: 21 Labs: Laboratory Tests Test 01/23/17 19:00 01/24/17 04:00 01/24/17 09:45 Random Amikacin Level 11.8 ug/mL Random Vancomycin Level 23.9 ug/mL White Blood Count 13.3 K/UL (4.8-10.8) H Red Blood Count 2.44 M/UL (4.20-5.40) L Hemoglobin 7.5 G/DL (12.0-16.0) L Hematocrit 25.1 % (37.0-47.0) L Mean Corpuscular Volume 103 FL (80-99) H Mean Corpuscular Hemoglobin 30.7 PG (27.0-31.0) Mean Corpuscular Hemoglobin Concent 29.9 G/DL (32.0-36.0) L Red Cell Distribution Width 17.0 % (11.6-14.8) H Platelet Count 20 K/UL (150-450) L Mean Platelet Volume 10.7 FL (6.5-10.1) H Neutrophils (%) (Auto) % (45.0-75.0) Lymphocytes (%) (Auto) % (20.0-45.0) Monocytes (%) (Auto) % (1.0-10.0) Eosinophils (%) (Auto) % (0.0-3.0) Basophils (%) (Auto) % (0.0-2.0) Neutrophils % (Manual) Pending Lymphocytes % (Manual) Pending Platelet Estimate Pending Platelet Morphology Pending Sodium Level 144 mEQ/L (135-145) Potassium Level 3.9 mEQ/L (3.4-4.9) Chloride Level 110 mEQ/L (98-107) H Carbon Dioxide Level 21 mEQ/L (20-30) Anion Gap 13 (5-15) Blood Urea Nitrogen 53 mg/dL (7-23) H Creatinine 3.2 mg/dL (0.5-0.9) H Estimat Glomerular Filtration Rate mL/min (>60) Glucose Level 213 mg/dL (74-106) H Calcium Level 9.2 mg/dL (8.6-10.2) Total Bilirubin 1.1 mg/dL (0.0-1.2) Direct Bilirubin Pending Aspartate Amino Transf (AST/SGOT) 38 U/L (5-40) Alanine Aminotransferase (ALT/SGPT) 10 U/L (3-33) Alkaline Phosphatase 98 U/L (35-104) Total Protein 6.8 g/dL (6.6-8.7) Albumin 3.1 g/dL (3.5-5.2) L Globulin 3.7 g/dL Albumin/Globulin Ratio 0.8 (1.0-2.7) L DIONI TRIANA Jan 24, 2017 11:01
[2017-01-24 11:09] LABS: BILIRUBIN,DIRECT 0.5 mg/dL (0.1-0.3)
--- NOTE | 2017-01-24 12:54 | Internal Med Progress Note ---
Subjective Date of Service: Jan 24, 2017 Physician Name Katharina Pond Attending Physician Rl Tee MD Current Medications Medications (Trade) Dose Ordered Sig/Pavel Route PRN Reason Start Time Stop Time Status Last Admin Dose Admin Acetaminophen (Tylenol) 650 mg Q4H PRN ORAL T>100.5 01/21/17 14:30 02/15/17 14:29 Albuterol/ Ipratropium (DuoNeb 0.5-3(2.5)mg/3ml) 3 ml Q4H PRN HHN Shortness of Breath 01/21/17 14:30 01/28/17 14:29 Chlorhexidine Gluconate (Dianne-Hex 2%) 1 applic BIOTEC TOPIC 01/24/17 21:00 02/23/17 20:59 Clotrimazole (Lotrimin) 1 applic EVERY 12 HOURS TOPIC 01/21/17 21:00 02/18/17 13:59 01/24/17 08:56 Dextrose 1,000 ml @ 75 mls/hr [id number] IV 01/24/17 16:00 02/23/17 15:59 Dextrose (Dextrose 50%) STAT PRN IV Hypoglycemia 01/21/17 14:30 02/17/17 14:29 Ertapenem 0.5 gm/ Sodium Chloride 55 ml @ 110 mls/hr Q24H IVPB 01/25/17 06:00 01/30/17 05:59 Insulin Aspart (NovoLOG) EVERY 6 HOURS SUBQ 01/22/17 12:00 02/15/17 16:29 01/24/17 12:17 Lactulose (Cephulac) 10 gm BID ORAL 01/23/17 09:00 02/18/17 12:59 01/24/17 08:46 Lorazepam (Ativan 2mg/ml 1ml) 2 mg Q4H PRN IV For Anxiety 01/22/17 06:45 01/29/17 06:44 01/23/17 09:10 Minocycline HCl (Minocin) 100 mg Q12HR ORAL 01/24/17 21:00 01/24/17 21:01 Morphine Sulfate (Morphine Sulfate) 4 mg Q4H PRN IVP For Pain 01/22/17 06:45 01/29/17 06:44 Nitroglycerin (Ntg) 0.4 mg Q5MIN X 3 DOSES PRN SL Prn Chest Pain 01/21/17 14:30 02/15/17 14:29 Nystatin (Nystop Powder) 1 applic THREE TIMES A DAY TOPIC 01/22/17 13:00 02/21/17 12:59 01/24/17 12:16 Ondansetron HCl (Zofran) 4 mg Q6H PRN IVP Nausea & Vomiting 01/21/17 14:30 02/15/17 14:29 Pantoprazole (Protonix) 40 mg EVERY 12 HOURS IVP 01/21/17 21:00 02/20/17 20:59 01/24/17 08:46 Polyethylene Glycol (Miralax) 17 gm DAILYPRN PRN ORAL Constipation 01/21/17 14:00 02/17/17 13:59 Vancomycin HCl (Vanco rx to dose) 1 ea DAILY PRN MISC Per rx protocol 01/22/17 09:00 02/18/17 11:44 Vancomycin HCl (Vancomycin) 125 mg BID ORAL 01/23/17 19:30 01/30/17 19:29 01/24/17 09:31 Allergies: Coded Allergies: PENICILLINS (Unverified Allergy, Unknown, 03/22/15) ROS Limited/Unobtainable: Yes Subjective 76 YO F admitted with altered mental status. Now UTI and CHF. Intubated and sedated. ICU . Cover for Int Med-Dr Tee. Bradycardia to 40's Objective Last Vital Signs Date Time Temp Pulse Resp B/P (MAP) Pulse Ox O2 Delivery O2 Flow Rate FiO2 01/24/17 12:00 35 01/24/17 12:00 62 01/24/17 12:00 97.5 18 104/51 95 Mechanical Ventilator 01/21/17 17:00 Laboratory Tests Test 01/23/17 19:00 01/24/17 04:00 01/24/17 09:45 Random Amikacin Level 11.8 ug/mL Random Vancomycin Level 23.9 ug/mL White Blood Count 13.3 K/UL (4.8-10.8) H Red Blood Count 2.44 M/UL (4.20-5.40) L Hemoglobin 7.5 G/DL (12.0-16.0) L Hematocrit 25.1 % (37.0-47.0) L Mean Corpuscular Volume 103 FL (80-99) H Mean Corpuscular Hemoglobin 30.7 PG (27.0-31.0) Mean Corpuscular Hemoglobin Concent 29.9 G/DL (32.0-36.0) L Red Cell Distribution Width 17.0 % (11.6-14.8) H Platelet Count 20 K/UL (150-450) L Mean Platelet Volume 10.7 FL (6.5-10.1) H Neutrophils (%) (Auto) % (45.0-75.0) Lymphocytes (%) (Auto) % (20.0-45.0) Monocytes (%) (Auto) % (1.0-10.0) Eosinophils (%) (Auto) % (0.0-3.0) Basophils (%) (Auto) % (0.0-2.0) Differential Total Cells Counted 100 Neutrophils % (Manual) 87 % (45-75) H Lymphocytes % (Manual) 8 % (20-45) L Monocytes % (Manual) 4 % (1-10) Eosinophils % (Manual) 1 % (0-3) Basophils % (Manual) 0 % (0-2) Band Neutrophils 0 % (0-8) Platelet Estimate Decreased L Platelet Morphology Normal Hypochromasia 1+ Anisocytosis 1+ Macrocytosis 1+ Sodium Level 144 mEQ/L (135-145) Potassium Level 3.9 mEQ/L (3.4-4.9) Chloride Level 110 mEQ/L (98-107) H Carbon Dioxide Level 21 mEQ/L (20-30) Anion Gap 13 (5-15) Blood Urea Nitrogen 53 mg/dL (7-23) H Creatinine 3.2 mg/dL (0.5-0.9) H Estimat Glomerular Filtration Rate mL/min (>60) Glucose Level 213 mg/dL (74-106) H Calcium Level 9.2 mg/dL (8.6-10.2) Total Bilirubin 1.1 mg/dL (0.0-1.2) Direct Bilirubin 0.5 mg/dL (0.1-0.3) H Aspartate Amino Transf (AST/SGOT) 38 U/L (5-40) Alanine Aminotransferase (ALT/SGPT) 10 U/L (3-33) Alkaline Phosphatase 98 U/L (35-104) Total Protein 6.8 g/dL (6.6-8.7) Albumin 3.1 g/dL (3.5-5.2) L Globulin 3.7 g/dL Albumin/Globulin Ratio 0.8 (1.0-2.7) L Microbiology Date/Time Source Procedure Growth Status 01/22/17 11:00 Sputum Expectorated Gram Stain - Final Complete 01/22/17 11:00 Sputum Culture - Final Escherichia Coli - Esbl Colleen Albicans Complete 01/22/17 11:00 Urine,Clean Catch Urine Culture - Preliminary YEAST Resulted Intake and Output 01/24/17 01/25/17 19:00 07:00 Intake Total 340 ml Output Total 5 ml Balance 335 ml Free Water 100 ml IV Total 60 ml Tube Feeding 150 ml Other 30 ml Output Urine Total 5 ml Objective General Appearance: WD/WN, no apparent distress, moderate distress, obese EENT: PERRL/EOMI, normal ENT inspection Neck: non-tender, normal alignment, supple, normal inspection Cardiovascular: normal peripheral pulses, normal rate, regular rhythm, no gallop/murmur, no JVD Respiratory/Chest: Mechanical vent; chest wall non-tender, lungs with coarse upper air sounds, Bilat wheezes and rales, respiratory distress Abdomen: G-Tube; non tender, no organomegaly, no mass 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 Baumanii. See ID note. Continur ertaoenem, vanco and minocycline per ID (2) CHF (congestive heart failure) Assessment & Plan: LVEF 60-65%. see cardiology note. (3) DM (diabetes mellitus) Assessment & Plan: Continue novolog sliding scale (4) Hypercholesteremia (5) HTN (hypertension) Assessment & Plan: Currently hypotensive. (6) Uncontrolled diabetes mellitus (7) Cirrhosis Assessment & Plan: see GI note. (8) Anemia (9) Altered mental status Assessment & Plan: Worsening. ICU status (10) Renal failure Assessment & Plan: See nephrology note. (11) Respiratory failure Assessment & Plan: Due to CHF. Cont mech vent per pulmonary. Continue antibiotic per ID (12) Bradycardia Assessment & Plan: see cardiology note. Status: not improved KATHARINA POND Jan 24, 2017 12:54
--- NOTE | 2017-01-24 15:49 | Cardiac Electrophysiology PN ---
Assessment/Plan Assessment/Plan 1. Congestive heart failure and very high brain natriuretic peptide. Ejection fraction of 60% to 65% with diastolic dysfunction. Her EKG also showed normal sinus rhythm with low voltage QRS. 2. Hypertension 3. Urinary tract infection. 4. Diabetes. 5. Hyperlipidemia. 6. Cirrhosis 7. Anemia with hemoglobin of 8. 8. Hypernatremia with NA 160 and renal failure. Down to 144 9. DNR and DNI DW RN, Subjective Subjective In ICU on vent. Open eyes. In SR was ernie earlier. DNR and DNI Objective Last 24 Hour Vital Signs Date Time Temp Pulse Resp B/P (MAP) Pulse Ox O2 Delivery O2 Flow Rate FiO2 01/24/17 15:36 67 18 45 01/24/17 15:00 55 16 96/48 98 Mechanical Ventilator 45 01/24/17 14:00 50 18 94/46 97 Mechanical Ventilator 45 01/24/17 13:11 54 18 45 01/24/17 13:00 64 18 125/59 100 Mechanical Ventilator 45 01/24/17 12:00 35 01/24/17 12:00 62 01/24/17 12:00 97.5 63 18 104/51 95 Mechanical Ventilator 35 01/24/17 11:12 55 18 35 01/24/17 11:00 60 19 92/40 97 Mechanical Ventilator 35 01/24/17 10:00 70 18 123/51 96 Mechanical Ventilator 35 01/24/17 09:36 57 18 40 01/24/17 09:00 71 19 99/47 96 Mechanical Ventilator 35 01/24/17 08:00 50 01/24/17 08:00 35 01/24/17 08:00 97.6 50 17 111/49 100 Mechanical Ventilator 35 01/24/17 07:11 50 18 40 01/24/17 07:00 56 19 92/39 95 Mechanical Ventilator 35 01/24/17 06:00 58 19 99/41 93 Mechanical Ventilator 35 01/24/17 05:00 68 26 120/45 95 Mechanical Ventilator 35 01/24/17 04:43 68 17 35 01/24/17 04:00 97.7 71 14 111/53 100 Mechanical Ventilator 35 01/24/17 04:00 71 01/24/17 04:00 35 01/24/17 03:00 60 26 113/53 96 Mechanical Ventilator 35 01/24/17 02:43 70 18 35 01/24/17 02:00 58 19 97/42 95 Mechanical Ventilator 35 01/24/17 01:20 67 18 35 01/24/17 01:00 59 19 94/43 95 Mechanical Ventilator 35 01/24/17 00:00 35 01/24/17 00:00 97.8 61 18 99/40 93 Mechanical Ventilator 35 01/24/17 00:00 61 01/23/17 23:00 63 18 111/59 95 Mechanical Ventilator 35 01/23/17 22:31 63 18 35 01/23/17 22:00 60 19 93/42 96 Mechanical Ventilator 40 01/23/17 21:09 73 21 40 01/23/17 21:00 66 19 106/32 96 Mechanical Ventilator 40 01/23/17 20:00 40 01/23/17 20:00 97.8 79 21 130/44 96 Mechanical Ventilator 40 01/23/17 20:00 79 01/23/17 19:18 80 23 40 01/23/17 19:00 80 21 143/54 96 Mechanical Ventilator 40 01/23/17 18:00 79 21 130/60 96 Mechanical Ventilator 40 01/23/17 17:03 81 20 40 01/23/17 17:00 80 21 140/54 98 Mechanical Ventilator 40 01/23/17 16:00 98.0 82 21 121/55 97 Mechanical Ventilator 40 01/23/17 16:00 81 Intake and Output 01/24/17 01/25/17 19:00 07:00 Intake Total 430 ml Output Total 5 ml Balance 425 ml Free Water 100 ml IV Total 60 ml Tube Feeding 240 ml Other 30 ml Output Urine Total 5 ml Laboratory Tests Test 01/23/17 19:00 01/24/17 04:00 01/24/17 09:45 Random Amikacin Level 11.8 ug/mL Random Vancomycin Level 23.9 ug/mL White Blood Count 13.3 K/UL (4.8-10.8) H Red Blood Count 2.44 M/UL (4.20-5.40) L Hemoglobin 7.5 G/DL (12.0-16.0) L Hematocrit 25.1 % (37.0-47.0) L Mean Corpuscular Volume 103 FL (80-99) H Mean Corpuscular Hemoglobin 30.7 PG (27.0-31.0) Mean Corpuscular Hemoglobin Concent 29.9 G/DL (32.0-36.0) L Red Cell Distribution Width 17.0 % (11.6-14.8) H Platelet Count 20 K/UL (150-450) L Mean Platelet Volume 10.7 FL (6.5-10.1) H Neutrophils (%) (Auto) % (45.0-75.0) Lymphocytes (%) (Auto) % (20.0-45.0) Monocytes (%) (Auto) % (1.0-10.0) Eosinophils (%) (Auto) % (0.0-3.0) Basophils (%) (Auto) % (0.0-2.0) Differential Total Cells Counted 100 Neutrophils % (Manual) 87 % (45-75) H Lymphocytes % (Manual) 8 % (20-45) L Monocytes % (Manual) 4 % (1-10) Eosinophils % (Manual) 1 % (0-3) Basophils % (Manual) 0 % (0-2) Band Neutrophils 0 % (0-8) Platelet Estimate Decreased L Platelet Morphology Normal Hypochromasia 1+ Anisocytosis 1+ Macrocytosis 1+ Sodium Level 144 mEQ/L (135-145) Potassium Level 3.9 mEQ/L (3.4-4.9) Chloride Level 110 mEQ/L (98-107) H Carbon Dioxide Level 21 mEQ/L (20-30) Anion Gap 13 (5-15) Blood Urea Nitrogen 53 mg/dL (7-23) H Creatinine 3.2 mg/dL (0.5-0.9) H Estimat Glomerular Filtration Rate mL/min (>60) Glucose Level 213 mg/dL (74-106) H Calcium Level 9.2 mg/dL (8.6-10.2) Total Bilirubin 1.1 mg/dL (0.0-1.2) Direct Bilirubin 0.5 mg/dL (0.1-0.3) H Aspartate Amino Transf (AST/SGOT) 38 U/L (5-40) Alanine Aminotransferase (ALT/SGPT) 10 U/L (3-33) Alkaline Phosphatase 98 U/L (35-104) Total Protein 6.8 g/dL (6.6-8.7) Albumin 3.1 g/dL (3.5-5.2) L Globulin 3.7 g/dL Albumin/Globulin Ratio 0.8 (1.0-2.7) L Microbiology Date/Time Source Procedure Growth Status 01/22/17 11:00 Sputum Expectorated Gram Stain - Final Complete 01/22/17 11:00 Sputum Culture - Final Escherichia Coli - Esbl Colleen Albicans Complete 01/22/17 11:00 Urine,Clean Catch Urine Culture - Preliminary YEAST Resulted Objective HEAD AND NECK: Shows no JVD.Orally intubated LUNGS: Coarse rhonchi CARDIOVASCULAR: Regular S1 and S2 with no gallop or murmur. ABDOMEN: Soft and nontender and obese. EXTREMITIES: 2+ pitting edema. DEAN SHAW Jan 24, 2017 15:49
[2017-01-24] MEDS ORDERED: Minocycline HCl 50mg cap ORAL SCH (21:00)
[2017-01-24] MEDS ORDERED: Dyna-Hex 2% Top Sol 2oz TOPIC SCH (21:00)
[2017-01-25] VITALS (45 sets, daily range): BP systolic 75–137; BP diastolic 35–81
[2017-01-25] MEDS: NovoLOG Insulin Flexpen SUBQ SCH ×5 (00:17→23:31)
[2017-01-25 00:32] LABS: LACTATE DEHYDROGENASE 290 U/L (135-230)
[2017-01-25 00:42] LABS: FERRITIN 101 ng/mL (13-150)
[2017-01-25 05:17] LABS: HEMATOCRIT 22.3 % (37.0-47.0); MEAN CORPUSCULAR VOLUME 101 FL (80-99); PLATELET COUNT 18 K/UL (150-450); RED CELL DISTRIBUTION WIDTH 16.4 % (11.6-14.8)
[2017-01-25 05:36] LABS: ALANINE AMINOTRANSFERASE 9 U/L (3-33); ALBUMIN 2.2 g/dL (3.5-5.2); ALBUMIN/GLOBULIN RATIO 0.6 (1.0-2.7); ALKALINE PHOSPHATASE 91 U/L (35-104); ANION GAP 12 (5-15); ASPARTATE AMINO TRANSFERASE 30 U/L (5-40); BILIRUBIN,TOTAL 0.9 mg/dL (0.0-1.2); BLOOD UREA NITROGEN 56 mg/dL (7-23); CARBON DIOXIDE 20 mEQ/L (20-30); CHLORIDE 109 mEQ/L (98-107); CREATININE 3.5 mg/dL (0.5-0.9); PHOSPHORUS 2.6 mg/dL (2.5-4.8); POTASSIUM 3.6 mEQ/L (3.4-4.9); SODIUM 141 mEQ/L (135-145)
[2017-01-25 05:52] LABS: HEMOGLOBIN 6.7 G/DL (12.0-16.0)
[2017-01-25] MEDS: Ertapenem 0.5 GM in NS 55 ML IVPB SCH (05:54)
[2017-01-25 07:25] LABS: % IRON SATURATION 44 % (15-50); IRON 42 ug/dL (37-145); TOTAL IRON BINDING CAPACITY 96 ug/dL (250-400)
--- NOTE | 2017-01-25 08:19 | Infectious Diseases Prog Note ---
Assessment/Plan Assessment/Plan A: Shock Pulmonary edema MRSA sepsis UTI Altered mental status Cirrhosis Anemia & thrombocytopenia DM type 2 Morbid obesity P: Continue Vancomycin & Ertapenem Patient is DNR & DNI Terminal extubation is considered by family Subjective ROS Limited/Unobtainable: Yes Allergies: Coded Allergies: PENICILLINS (Unverified Allergy, Unknown, 03/22/15) Objective Vital Signs Last 24 Hour Vital Signs Date Time Temp Pulse Resp B/P (MAP) Pulse Ox O2 Delivery O2 Flow Rate FiO2 01/25/17 07:00 57 19 83/48 96 Mechanical Ventilator 45 01/25/17 06:31 59 18 45 01/25/17 06:00 61 19 90/41 96 Mechanical Ventilator 45 01/25/17 05:14 55 18 45 01/25/17 05:00 60 19 110/47 96 Mechanical Ventilator 45 01/25/17 04:00 95.0 53 24 82/39 95 Mechanical Ventilator 45 01/25/17 04:00 45 01/25/17 03:45 53 01/25/17 03:05 52 18 45 01/25/17 03:00 53 19 76/35 96 Mechanical Ventilator 45 01/25/17 02:00 58 19 87/41 96 Mechanical Ventilator 45 01/25/17 01:05 59 18 45 01/25/17 01:00 60 19 100/51 98 Mechanical Ventilator 45 01/25/17 00:00 46 01/25/17 00:00 49 19 90/40 98 Mechanical Ventilator 45 01/25/17 00:00 45 01/24/17 23:10 55 18 45 01/24/17 23:00 48 19 82/38 98 Mechanical Ventilator 45 01/24/17 22:00 95.0 56 24 109/48 95 Mechanical Ventilator 45 01/24/17 21:42 49 01/24/17 21:00 53 18 45 01/24/17 21:00 49 19 95/42 98 Mechanical Ventilator 45 01/24/17 20:00 96.0 52 24 121/62 95 Mechanical Ventilator 45 01/24/17 20:00 45 01/24/17 19:08 51 18 45 01/24/17 19:00 60 19 89/44 98 Mechanical Ventilator 45 01/24/17 18:00 53 22 143/58 95 Mechanical Ventilator 45 01/24/17 17:17 50 18 45 01/24/17 17:00 58 18 105/54 98 Mechanical Ventilator 45 01/24/17 16:00 97.8 56 24 101/48 95 Mechanical Ventilator 40 01/24/17 16:00 40 01/24/17 16:00 55 01/24/17 15:36 67 18 45 01/24/17 15:00 55 16 96/48 98 Mechanical Ventilator 45 01/24/17 14:00 50 18 94/46 97 Mechanical Ventilator 45 01/24/17 13:11 54 18 45 01/24/17 13:00 64 18 125/59 100 Mechanical Ventilator 45 01/24/17 12:00 35 01/24/17 12:00 62 01/24/17 12:00 97.5 63 18 104/51 95 Mechanical Ventilator 35 01/24/17 11:12 55 18 35 01/24/17 11:00 60 19 92/40 97 Mechanical Ventilator 35 01/24/17 10:00 70 18 123/51 96 Mechanical Ventilator 35 01/24/17 09:36 57 18 40 01/24/17 09:00 71 19 99/47 96 Mechanical Ventilator 35 Height (Feet): 5 Height (Inches): 6.00 Weight (Pounds): 265 HEENT: other - orally intubated Respiratory/Chest: lungs clear, other - on ventilator Cardiovascular: normal rate, other - Hypotensive Abdomen: soft, non tender, other - NG tube feeding Extremities: other - bilateral SCD of legs Neurologic/Psychiatric: unresponsiveness Microbiology Date/Time Source Procedure Growth Status 01/22/17 11:00 Sputum Expectorated Gram Stain - Final Complete 01/22/17 11:00 Sputum Culture - Final Escherichia Coli - Esbl Colleen Albicans Complete 01/22/17 11:00 Urine,Clean Catch Urine Culture - Final Cloleen Albicans Complete Laboratory Tests Test 01/24/17 09:45 01/24/17 23:30 01/25/17 03:00 01/25/17 04:00 White Blood Count 13.3 K/UL (4.8-10.8) H 10.0 K/UL (4.8-10.8) Red Blood Count 2.44 M/UL (4.20-5.40) L 2.20 M/UL (4.20-5.40) L Hemoglobin 7.5 G/DL (12.0-16.0) L 6.7 G/DL (12.0-16.0) *L Hematocrit 25.1 % (37.0-47.0) L 22.3 % (37.0-47.0) L Mean Corpuscular Volume 103 FL (80-99) H 101 FL (80-99) H Mean Corpuscular Hemoglobin 30.7 PG (27.0-31.0) 30.5 PG (27.0-31.0) Mean Corpuscular Hemoglobin Concent 29.9 G/DL (32.0-36.0) L 30.2 G/DL (32.0-36.0) L Red Cell Distribution Width 17.0 % (11.6-14.8) H 16.4 % (11.6-14.8) H Platelet Count 20 K/UL (150-450) L 18 K/UL (150-450) L Mean Platelet Volume 10.7 FL (6.5-10.1) H 13.6 FL (6.5-10.1) H Neutrophils (%) (Auto) % (45.0-75.0) % (45.0-75.0) Lymphocytes (%) (Auto) % (20.0-45.0) % (20.0-45.0) Monocytes (%) (Auto) % (1.0-10.0) % (1.0-10.0) Eosinophils (%) (Auto) % (0.0-3.0) % (0.0-3.0) Basophils (%) (Auto) % (0.0-2.0) % (0.0-2.0) Differential Total Cells Counted 100 Neutrophils % (Manual) 87 % (45-75) H Pending Lymphocytes % (Manual) 8 % (20-45) L Pending Monocytes % (Manual) 4 % (1-10) Eosinophils % (Manual) 1 % (0-3) Basophils % (Manual) 0 % (0-2) Band Neutrophils 0 % (0-8) Platelet Estimate Decreased L Pending Platelet Morphology Normal Pending Hypochromasia 1+ Anisocytosis 1+ Macrocytosis 1+ Sodium Level 144 mEQ/L (135-145) 141 mEQ/L (135-145) Potassium Level 3.9 mEQ/L (3.4-4.9) 3.6 mEQ/L (3.4-4.9) Chloride Level 110 mEQ/L (98-107) H 109 mEQ/L (98-107) H Carbon Dioxide Level 21 mEQ/L (20-30) 20 mEQ/L (20-30) Anion Gap 13 (5-15) 12 (5-15) Blood Urea Nitrogen 53 mg/dL (7-23) H 56 mg/dL (7-23) H Creatinine 3.2 mg/dL (0.5-0.9) H 3.5 mg/dL (0.5-0.9) H Estimat Glomerular Filtration Rate mL/min (>60) mL/min (>60) Glucose Level 213 mg/dL (74-106) H 184 mg/dL (74-106) H Calcium Level 9.2 mg/dL (8.6-10.2) 9.0 mg/dL (8.6-10.2) Total Bilirubin 1.1 mg/dL (0.0-1.2) 1.0 mg/dL (0.0-1.2) 0.9 mg/dL (0.0-1.2) Direct Bilirubin 0.5 mg/dL (0.1-0.3) H Aspartate Amino Transf (AST/SGOT) 38 U/L (5-40) 30 U/L (5-40) Alanine Aminotransferase (ALT/SGPT) 10 U/L (3-33) 9 U/L (3-33) Alkaline Phosphatase 98 U/L (35-104) 91 U/L (35-104) Total Protein 6.8 g/dL (6.6-8.7) 5.7 g/dL (6.6-8.7) L Albumin 3.1 g/dL (3.5-5.2) L 2.2 g/dL (3.5-5.2) L Globulin 3.7 g/dL 3.5 g/dL Albumin/Globulin Ratio 0.8 (1.0-2.7) L 0.6 (1.0-2.7) L Reticulocyte Count 1.4 % (0.0-2.0) Haptoglobin 47 mg/dL (30-200) PTT Mixing Study Pending APTT Patient/Control Mix Pending Mix PTT Incubation Time Pending Mix PTT Normal/Saline 1:1 Immediate Pending Thrombin Time Normal Plasma Pending Fibrinogen Pending Lactic Acid Level 1.60 mmol/L (0.66-2.22) Iron Level 42 ug/dL (37-145) Total Iron Binding Capacity 96 ug/dL (250-400) L Percent Iron Saturation 44 % (15-50) Unsaturated Iron Binding 54 ug/dL (112-346) L Ferritin 101 ng/mL (13-150) Lactate Dehydrogenase 290 U/L (135-230) H Vitamin B12 Level Pending Methylmalonic Acid Pending Folate Pending Homocystine Pending Hepatitis A IgM Antibody Pending Hepatitis B Surface Antigen Pending Hepatitis B Core IgM Antibody Pending Hepatitis C Antibody Pending Stool Occult Blood Pending Uric Acid 8.9 mg/dL (3.0-7.5) H Phosphorus Level 2.6 mg/dL (2.5-4.8) Magnesium Level 1.9 mg/dL (1.7-2.5) C-Reactive Protein, Quantitative 6.6 mg/dL (< 0.5) H Pro-B-Type Natriuretic Peptide 85567 pg/mL (0-450) H Test 01/25/17 06:31 Arterial Blood pH 7.295 (7.350-7.450) Arterial Blood Partial Pressure CO2 39.2 mmHg (35.0-45.0) Arterial Blood Partial Pressure O2 63.6 mmHg (75.0-100.0) L Arterial Blood HCO3 18.6 mmol/L (22.0-26.0) L Arterial Blood Oxygen Saturation 89.6 % (92.0-98.0) L Arterial Blood Base Excess -7.2 Bon Test Positive Current Medications Medications (Trade) Dose Ordered Sig/Pavel Route PRN Reason Start Time Stop Time Status Last Admin Dose Admin Acetaminophen (Tylenol) 650 mg Q4H PRN ORAL T>100.5 01/21/17 14:30 02/15/17 14:29 Albuterol/ Ipratropium (DuoNeb 0.5-3(2.5)mg/3ml) 3 ml Q4H PRN HHN Shortness of Breath 01/21/17 14:30 01/28/17 14:29 Chlorhexidine Gluconate (Dianne-Hex 2%) 1 applic BIOTEC TOPIC 01/24/17 21:00 02/23/17 20:59 01/24/17 20:56 Clotrimazole (Lotrimin) 1 applic EVERY 12 HOURS TOPIC 01/21/17 21:00 02/18/17 13:59 01/24/17 20:56 Dextrose 1,000 ml @ 75 mls/hr [id number] IV 01/24/17 16:00 02/23/17 15:59 01/25/17 05:06 Dextrose (Dextrose 50%) STAT PRN IV Hypoglycemia 01/21/17 14:30 02/17/17 14:29 Ertapenem 0.5 gm/ Sodium Chloride 55 ml @ 110 mls/hr Q24H IVPB 01/25/17 06:00 01/30/17 05:59 01/25/17 05:54 Insulin Aspart (NovoLOG) EVERY 6 HOURS SUBQ 01/22/17 12:00 02/15/17 16:29 01/25/17 05:59 Lactulose (Cephulac) 10 gm BID ORAL 01/23/17 09:00 02/18/17 12:59 01/24/17 17:41 Lorazepam (Ativan 2mg/ml 1ml) 2 mg Q4H PRN IV For Anxiety 01/22/17 06:45 01/29/17 06:44 01/23/17 09:10 Morphine Sulfate (Morphine Sulfate) 4 mg Q4H PRN IVP For Pain 01/22/17 06:45 01/29/17 06:44 Nitroglycerin (Ntg) 0.4 mg Q5MIN X 3 DOSES PRN SL Prn Chest Pain 01/21/17 14:30 02/15/17 14:29 Nystatin (Nystop Powder) 1 applic THREE TIMES A DAY TOPIC 01/22/17 13:00 02/21/17 12:59 01/24/17 17:41 Ondansetron HCl (Zofran) 4 mg Q6H PRN IVP Nausea & Vomiting 01/21/17 14:30 02/15/17 14:29 Pantoprazole (Protonix) 40 mg EVERY 12 HOURS IVP 01/21/17 21:00 02/20/17 20:59 01/24/17 20:56 Polyethylene Glycol (Miralax) 17 gm DAILYPRN PRN ORAL Constipation 01/21/17 14:00 02/17/17 13:59 Vancomycin HCl (Vanco rx to dose) 1 ea DAILY PRN MISC Per rx protocol 01/22/17 09:00 02/18/17 11:44 Vancomycin HCl (Vancomycin) 125 mg BID ORAL 01/23/17 19:30 01/30/17 19:29 01/24/17 17:41 SUMMER BYRNES Jan 25, 2017 08:19
[2017-01-25] MEDS: Lactulose 10gm/15ml UDC ORAL SCH ×2 (09:34→17:51)
[2017-01-25] MEDS: Pantoprazole Inj IVP SCH ×2 (09:34→20:45)
[2017-01-25] MEDS: Nystatin Powder 100,000 units/gm 15gm TOPIC SCH ×3 (09:34→17:51)
[2017-01-25] MEDS: Vancomycin oral 125mg/2.5ml ORAL SCH ×2 (09:44→17:51)
--- NOTE | 2017-01-25 10:17 | General Progress Note ---
Assessment/Plan Status: stable Status Narrative Cr higher H&H lower Assessment/Plan Acute on chronic renal failure- multifactorial CHF DM HTN Sepsis Now: Acute respiratory failure- Intubated - Altered level of consciousness - ESBL (extended spectrum beta-lactamase) producing bacteria infection - Cardiomegaly - DM (diabetes mellitus) - HTN (hypertension) - UTI (urinary tract infection) - Anemia - High Cholestrol - COPD - YELENA - Fatty liver Plan: Transfuse- D5W 75 cc hour Optimize cardiac and pulmonary status 2D echo results noted avoid nephrotoxics monitor renal parameters Urine studies per orders Subjective ROS Limited/Unobtainable: Yes Allergies: Coded Allergies: PENICILLINS (Unverified Allergy, Unknown, 03/22/15) Objective Last 24 Hour Vital Signs Date Time Temp Pulse Resp B/P (MAP) Pulse Ox O2 Delivery O2 Flow Rate FiO2 01/25/17 09:00 60 87/42 95 Mechanical Ventilator 60 01/25/17 08:52 67 18 60 01/25/17 08:00 60 01/25/17 08:00 60 01/25/17 08:00 95.2 59 16 91/43 98 Mechanical Ventilator 60 01/25/17 07:00 57 19 83/48 96 Mechanical Ventilator 45 01/25/17 06:31 59 18 45 01/25/17 06:00 61 19 90/41 96 Mechanical Ventilator 45 01/25/17 05:14 55 18 45 01/25/17 05:00 60 19 110/47 96 Mechanical Ventilator 45 01/25/17 04:00 95.0 53 24 82/39 95 Mechanical Ventilator 45 01/25/17 04:00 45 01/25/17 03:45 53 01/25/17 03:05 52 18 45 01/25/17 03:00 53 19 76/35 96 Mechanical Ventilator 45 01/25/17 02:00 58 19 87/41 96 Mechanical Ventilator 45 01/25/17 01:05 59 18 45 01/25/17 01:00 60 19 100/51 98 Mechanical Ventilator 45 01/25/17 00:00 46 01/25/17 00:00 49 19 90/40 98 Mechanical Ventilator 45 01/25/17 00:00 45 01/24/17 23:10 55 18 45 01/24/17 23:00 48 19 82/38 98 Mechanical Ventilator 45 01/24/17 22:00 95.0 56 24 109/48 95 Mechanical Ventilator 45 01/24/17 21:42 49 01/24/17 21:00 53 18 45 01/24/17 21:00 49 19 95/42 98 Mechanical Ventilator 45 01/24/17 20:00 96.0 52 24 121/62 95 Mechanical Ventilator 45 01/24/17 20:00 45 01/24/17 19:08 51 18 45 01/24/17 19:00 60 19 89/44 98 Mechanical Ventilator 45 01/24/17 18:00 53 22 143/58 95 Mechanical Ventilator 45 01/24/17 17:17 50 18 45 01/24/17 17:00 58 18 105/54 98 Mechanical Ventilator 45 01/24/17 16:00 97.8 56 24 101/48 95 Mechanical Ventilator 40 01/24/17 16:00 40 01/24/17 16:00 55 01/24/17 15:36 67 18 45 01/24/17 15:00 55 16 96/48 98 Mechanical Ventilator 45 01/24/17 14:00 50 18 94/46 97 Mechanical Ventilator 45 01/24/17 13:11 54 18 45 01/24/17 13:00 64 18 125/59 100 Mechanical Ventilator 45 01/24/17 12:00 35 01/24/17 12:00 62 01/24/17 12:00 97.5 63 18 104/51 95 Mechanical Ventilator 35 01/24/17 11:12 55 18 35 01/24/17 11:00 60 19 92/40 97 Mechanical Ventilator 35 Intake and Output 01/25/17 01/26/17 19:00 07:00 Intake Total 220 ml Output Total 0 ml Balance 220 ml IV Total 150 ml Tube Feeding 40 ml Other 30 ml Output Urine Total 0 ml # Bowel Movements 1 Laboratory Tests 01/24/17 23:30: Reticulocyte Count 1.4, Haptoglobin 47, PTT Mixing Study [Pending], APTT Patient /Control Mix [Pending], Mix PTT Incubation Time [Pending], Mix PTT Normal/ Saline 1:1 Immediate [Pending], Thrombin Time Normal Plasma [Pending], Fibrinogen 159L, Lactic Acid Level 1.60, Iron Level 42, Total Iron Binding Capacity 96L, Percent Iron Saturation 44, Unsaturated Iron Binding 54L, Ferritin 101, Total Bilirubin 1.0, Lactate Dehydrogenase 290H, Vitamin B12 Level > 2000H, Methylmalonic Acid [Pending], Folate [Pending], Homocystine [ Pending], Hepatitis A IgM Antibody [Pending], Hepatitis B Surface Antigen [ Pending], Hepatitis B Core IgM Antibody [Pending], Hepatitis C Antibody [Pending ] 01/25/17 03:00: Stool Occult Blood [Pending] 01/25/17 04:00: Total Bilirubin 0.9, White Blood Count 10.0, Red Blood Count 2.20L, Hemoglobin 6.7*L, Hematocrit 22.3L, Mean Corpuscular Volume 101H, Mean Corpuscular Hemoglobin 30.5, Mean Corpuscular Hemoglobin Concent 30.2L, Red Cell Distribution Width 16.4H, Platelet Count 18L, Mean Platelet Volume 13.6H, Neutrophils (%) (Auto) , Lymphocytes (%) (Auto) , Monocytes (%) (Auto) , Eosinophils (%) (Auto) , Basophils (%) (Auto) , Neutrophils % (Manual) [Pending] , Lymphocytes % (Manual) [Pending], Platelet Estimate [Pending], Platelet Morphology [Pending], Sodium Level 141, Potassium Level 3.6, Chloride Level 109H , Carbon Dioxide Level 20, Anion Gap 12, Blood Urea Nitrogen 56H, Creatinine 3.5H, Estimat Glomerular Filtration Rate , Glucose Level 184H, Uric Acid 8.9H, Calcium Level 9.0, Phosphorus Level 2.6, Magnesium Level 1.9, Aspartate Amino Transf (AST/SGOT) 30, Alanine Aminotransferase (ALT/SGPT) 9, Alkaline Phosphatase 91, C-Reactive Protein, Quantitative 6.6H, Pro-B-Type Natriuretic Peptide 27782S, Total Protein 5.7L, Albumin 2.2L, Globulin 3.5, Albumin/ Globulin Ratio 0.6L 01/25/17 06:31: Arterial Blood pH 7.295L, Arterial Blood Partial Pressure CO2 39.2, Arterial Blood Partial Pressure O2 63.6L, Arterial Blood HCO3 18.6L, Arterial Blood Oxygen Saturation 89.6L, Arterial Blood Base Excess -7.2, Bon Test Positive Height (Feet): 5 Height (Inches): 6.00 Weight (Pounds): 265 General Appearance: no apparent distress Objective no change ANDERS MOLINA Jan 25, 2017 10:17
--- NOTE | 2017-01-25 10:31 | Diagnostic Imaging Report ---
Indication: Shortness of breath Technique: XRAY CHEST 1 V Comparison: 01/23/17 Findings: Endotracheal tube, right internal jugular central line and nasogastric tubes are unchanged. Extensive bilateral interstitial and airspace edema/infiltrates are present, right greater than left. Osseous structures are grossly stable. Impression: Extensive bilateral interstitial and airspace edema/infiltrates slightly increased in the right lung. Stable support lines and tubes.
--- NOTE | 2017-01-25 10:49 | Pulmonolgy Critical Care Note ---
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 Respiratory: monitor respiratory rate, adjust FIO2, CXR Cardiac: continue to monitor HR/BP Renal: F/U I&O, keep IV fluid, check electrolytes Infectious Disease: check cultures Gastrointestinal: continue feedings/current rate Endocrine: monitor blood sugar, check HgA1C, continue sliding scale insulin Hematologic: transfuse if hgb<8.5 Neurologic: PRN Ativan, PRN Morphine, keep patient comfortable Prophylaxis: Heparin Time Spent (Minutes): 30 Notes Reviewed: supervisor carbon electrodes, renal Discussed with: nurses, consultants, shoe parts caserclinical operations manager - Objective Last 24 Hour Vital Signs Date Time Temp Pulse Resp B/P (MAP) Pulse Ox O2 Delivery O2 Flow Rate FiO2 01/25/17 10:00 58 24 75/36 95 Mechanical Ventilator 60 01/25/17 09:00 60 87/42 95 Mechanical Ventilator 60 01/25/17 08:52 67 18 60 01/25/17 08:00 60 01/25/17 08:00 60 01/25/17 08:00 95.2 59 16 91/43 98 Mechanical Ventilator 60 01/25/17 07:00 57 19 83/48 96 Mechanical Ventilator 45 01/25/17 06:31 59 18 45 01/25/17 06:00 61 19 90/41 96 Mechanical Ventilator 45 01/25/17 05:14 55 18 45 01/25/17 05:00 60 19 110/47 96 Mechanical Ventilator 45 01/25/17 04:00 95.0 53 24 82/39 95 Mechanical Ventilator 45 01/25/17 04:00 45 01/25/17 03:45 53 01/25/17 03:05 52 18 45 01/25/17 03:00 53 19 76/35 96 Mechanical Ventilator 45 01/25/17 02:00 58 19 87/41 96 Mechanical Ventilator 45 01/25/17 01:05 59 18 45 01/25/17 01:00 60 19 100/51 98 Mechanical Ventilator 45 01/25/17 00:00 46 01/25/17 00:00 49 19 90/40 98 Mechanical Ventilator 45 01/25/17 00:00 45 01/24/17 23:10 55 18 45 01/24/17 23:00 48 19 82/38 98 Mechanical Ventilator 45 01/24/17 22:00 95.0 56 24 109/48 95 Mechanical Ventilator 45 01/24/17 21:42 49 01/24/17 21:00 53 18 45 01/24/17 21:00 49 19 95/42 98 Mechanical Ventilator 45 01/24/17 20:00 96.0 52 24 121/62 95 Mechanical Ventilator 45 01/24/17 20:00 45 01/24/17 19:08 51 18 45 01/24/17 19:00 60 19 89/44 98 Mechanical Ventilator 45 01/24/17 18:00 53 22 143/58 95 Mechanical Ventilator 45 01/24/17 17:17 50 18 45 01/24/17 17:00 58 18 105/54 98 Mechanical Ventilator 45 01/24/17 16:00 97.8 56 24 101/48 95 Mechanical Ventilator 40 01/24/17 16:00 40 01/24/17 16:00 55 01/24/17 15:36 67 18 45 01/24/17 15:00 55 16 96/48 98 Mechanical Ventilator 45 01/24/17 14:00 50 18 94/46 97 Mechanical Ventilator 45 01/24/17 13:11 54 18 45 01/24/17 13:00 64 18 125/59 100 Mechanical Ventilator 45 01/24/17 12:00 35 01/24/17 12:00 62 01/24/17 12:00 97.5 63 18 104/51 95 Mechanical Ventilator 35 01/24/17 11:12 55 18 35 01/24/17 11:00 60 19 92/40 97 Mechanical Ventilator 35 Status: awake Condition: critical HEENT: atraumatic Lungs: clear, chest wall tender Heart: HR/BP stable, regular Abdomen: non-tender, active bowel sounds, feeding tube Extremities: edema Decubiti: location, stage Micro: Microbiology Date/Time Source Procedure Growth Status 01/22/17 11:00 Sputum Expectorated Gram Stain - Final Complete 01/22/17 11:00 Sputum Culture - Final Escherichia Coli - Esbl Colleen Albicans Complete 01/22/17 11:00 Urine,Clean Catch Urine Culture - Final Colleen Albicans Complete Accucheck: 191 Critical Care - Subjective ROS Limited/Unobtainable: No ICU Day: 4 Intubation Day: 4 Condition: critical EKG Rhythm: Sinus Rhythm FI02: 60 Vent Support Breath Rate: 18 Vent Support Mode: AC Vent Tidal Volume: 600 Sputum Amount: Scant PEEP: 0.0 PIP: 43 Drips: start dopamin Tube Feeding Amount: 20 I&O: Intake and Output 01/25/17 01/26/17 19:00 07:00 Intake Total 220 ml Output Total 0 ml Balance 220 ml IV Total 150 ml Tube Feeding 40 ml Other 30 ml Output Urine Total 0 ml # Bowel Movements 1 CXR: worsening R infiltrate ET-Tube: 7.0 ET Position: 21 Labs: Laboratory Tests Test 01/24/17 23:30 01/25/17 03:00 01/25/17 04:00 01/25/17 06:31 Reticulocyte Count 1.4 % (0.0-2.0) Haptoglobin 47 mg/dL (30-200) PTT Mixing Study Pending APTT Patient/Control Mix Pending Mix PTT Incubation Time Pending Mix PTT Normal/Saline 1:1 Immediate Pending Thrombin Time Normal Plasma Pending Fibrinogen 159 mg/dL (200-400) L Lactic Acid Level 1.60 mmol/L (0.66-2.22) Iron Level 42 ug/dL (37-145) Total Iron Binding Capacity 96 ug/dL (250-400) L Percent Iron Saturation 44 % (15-50) Unsaturated Iron Binding 54 ug/dL (112-346) L Ferritin 101 ng/mL (13-150) Total Bilirubin 1.0 mg/dL (0.0-1.2) 0.9 mg/dL (0.0-1.2) Lactate Dehydrogenase 290 U/L (135-230) H Vitamin B12 Level > 2000 PG/ML (193-986) H Methylmalonic Acid Pending Folate Pending Homocystine Pending Hepatitis A IgM Antibody Pending Hepatitis B Surface Antigen Pending Hepatitis B Core IgM Antibody Pending Hepatitis C Antibody Pending Stool Occult Blood Pending White Blood Count 10.0 K/UL (4.8-10.8) Red Blood Count 2.20 M/UL (4.20-5.40) L Hemoglobin 6.7 G/DL (12.0-16.0) *L Hematocrit 22.3 % (37.0-47.0) L Mean Corpuscular Volume 101 FL (80-99) H Mean Corpuscular Hemoglobin 30.5 PG (27.0-31.0) Mean Corpuscular Hemoglobin Concent 30.2 G/DL (32.0-36.0) L Red Cell Distribution Width 16.4 % (11.6-14.8) H Platelet Count 18 K/UL (150-450) L Mean Platelet Volume 13.6 FL (6.5-10.1) H Neutrophils (%) (Auto) % (45.0-75.0) Lymphocytes (%) (Auto) % (20.0-45.0) Monocytes (%) (Auto) % (1.0-10.0) Eosinophils (%) (Auto) % (0.0-3.0) Basophils (%) (Auto) % (0.0-2.0) Differential Total Cells Counted 100 Neutrophils % (Manual) 90 % (45-75) H Lymphocytes % (Manual) 7 % (20-45) L Monocytes % (Manual) 2 % (1-10) Eosinophils % (Manual) 1 % (0-3) Basophils % (Manual) 0 % (0-2) Band Neutrophils 0 % (0-8) Platelet Estimate Decreased L Platelet Morphology Normal Hypochromasia 3+ Macrocytosis 1+ Sodium Level 141 mEQ/L (135-145) Potassium Level 3.6 mEQ/L (3.4-4.9) Chloride Level 109 mEQ/L (98-107) H Carbon Dioxide Level 20 mEQ/L (20-30) Anion Gap 12 (5-15) Blood Urea Nitrogen 56 mg/dL (7-23) H Creatinine 3.5 mg/dL (0.5-0.9) H Estimat Glomerular Filtration Rate mL/min (>60) Glucose Level 184 mg/dL (74-106) H Uric Acid 8.9 mg/dL (3.0-7.5) H Calcium Level 9.0 mg/dL (8.6-10.2) Phosphorus Level 2.6 mg/dL (2.5-4.8) Magnesium Level 1.9 mg/dL (1.7-2.5) Aspartate Amino Transf (AST/SGOT) 30 U/L (5-40) Alanine Aminotransferase (ALT/SGPT) 9 U/L (3-33) Alkaline Phosphatase 91 U/L (35-104) C-Reactive Protein, Quantitative 6.6 mg/dL (< 0.5) H Pro-B-Type Natriuretic Peptide 30857 pg/mL (0-450) H Total Protein 5.7 g/dL (6.6-8.7) L Albumin 2.2 g/dL (3.5-5.2) L Globulin 3.5 g/dL Albumin/Globulin Ratio 0.6 (1.0-2.7) L Arterial Blood pH 7.295 (7.350-7.450) Arterial Blood Partial Pressure CO2 39.2 mmHg (35.0-45.0) Arterial Blood Partial Pressure O2 63.6 mmHg (75.0-100.0) L Arterial Blood HCO3 18.6 mmol/L (22.0-26.0) L Arterial Blood Oxygen Saturation 89.6 % (92.0-98.0) L Arterial Blood Base Excess -7.2 Bon Test Positive DIONI TRIANA Jan 25, 2017 10:49
[2017-01-25] MEDS: DOPamine 400mg/250ml 250 ML IV SCH (11:38)
[2017-01-25] MEDS ORDERED: Vancomycin 750mg/NS 250ml IVPB ONE (14:00)
--- NOTE | 2017-01-25 14:25 | Internal Med Progress Note ---
Subjective Date of Service: Jan 25, 2017 Physician Name Katharina Pond Attending Physician Rl Tee MD Current Medications Medications (Trade) Dose Ordered Sig/Pavel Route PRN Reason Start Time Stop Time Status Last Admin Dose Admin Acetaminophen (Tylenol) 650 mg Q4H PRN ORAL T>100.5 01/21/17 14:30 02/15/17 14:29 Albuterol/ Ipratropium (DuoNeb 0.5-3(2.5)mg/3ml) 3 ml Q4H PRN HHN Shortness of Breath 01/21/17 14:30 01/28/17 14:29 Chlorhexidine Gluconate (Dianne-Hex 2%) 1 applic QHS TOPIC 01/25/17 21:00 02/23/17 20:59 Clotrimazole (Lotrimin) 1 applic EVERY 12 HOURS TOPIC 01/21/17 21:00 02/18/17 13:59 01/25/17 09:34 Dextrose 1,000 ml @ 75 mls/hr [id number] IV 01/24/17 16:00 02/23/17 15:59 01/25/17 05:06 Dextrose (Dextrose 50%) STAT PRN IV Hypoglycemia 01/21/17 14:30 02/17/17 14:29 Dopamine HCl/ Dextrose 250 ml @ 0 mls/hr Q24H IV 01/25/17 11:15 02/24/17 11:14 01/25/17 11:38 Ertapenem 0.5 gm/ Sodium Chloride 55 ml @ 110 mls/hr Q24H IVPB 01/25/17 06:00 01/30/17 05:59 01/25/17 05:54 Insulin Aspart (NovoLOG) EVERY 6 HOURS SUBQ 01/22/17 12:00 02/15/17 16:29 01/25/17 12:42 Lactulose (Cephulac) 10 gm BID ORAL 01/23/17 09:00 02/18/17 12:59 01/25/17 09:34 Lorazepam (Ativan 2mg/ml 1ml) 2 mg Q4H PRN IV For Anxiety 01/22/17 06:45 01/29/17 06:44 01/23/17 09:10 Morphine Sulfate (Morphine Sulfate) 4 mg Q4H PRN IVP For Pain 01/22/17 06:45 01/29/17 06:44 Nitroglycerin (Ntg) 0.4 mg Q5MIN X 3 DOSES PRN SL Prn Chest Pain 01/21/17 14:30 02/15/17 14:29 Nystatin (Nystop Powder) 1 applic THREE TIMES A DAY TOPIC 01/22/17 13:00 02/21/17 12:59 01/25/17 12:42 Ondansetron HCl (Zofran) 4 mg Q6H PRN IVP Nausea & Vomiting 01/21/17 14:30 02/15/17 14:29 Pantoprazole (Protonix) 40 mg EVERY 12 HOURS IVP 01/21/17 21:00 02/20/17 20:59 01/25/17 09:34 Polyethylene Glycol (Miralax) 17 gm DAILYPRN PRN ORAL Constipation 01/21/17 14:00 02/17/17 13:59 Vancomycin HCl (Vanco rx to dose) 1 ea DAILY PRN MISC Per rx protocol 01/22/17 09:00 02/18/17 11:44 Vancomycin HCl (Vancomycin) 125 mg BID ORAL 01/23/17 19:30 01/30/17 19:29 01/25/17 09:44 Vancomycin/Sodium Chloride 250 ml @ 166.667 mls/hr ONCE ONCE IVPB 01/25/17 14:00 01/25/17 15:29 Allergies: Coded Allergies: PENICILLINS (Unverified Allergy, Unknown, 03/22/15) ROS Limited/Unobtainable: Yes Subjective 76 YO F admitted with altered mental status. Now UTI and CHF. Intubated and sedated. ICU . Cover for [facility] Med-Dr Tee. Objective Last Vital Signs Date Time Temp Pulse Resp B/P (MAP) Pulse Ox O2 Delivery O2 Flow Rate FiO2 01/25/17 13:45 74 20 96/45 92 Mechanical Ventilator 50 01/25/17 13:15 95.2 01/21/17 17:00 Laboratory Tests Test 01/24/17 23:30 01/25/17 03:00 01/25/17 04:00 01/25/17 06:31 Reticulocyte Count 1.4 % (0.0-2.0) Haptoglobin 47 mg/dL (30-200) PTT Mixing Study Pending APTT Patient/Control Mix Pending Mix PTT Incubation Time Pending Mix PTT Normal/Saline 1:1 Immediate Pending Thrombin Time Normal Plasma Pending Fibrinogen 159 mg/dL (200-400) L Lactic Acid Level 1.60 mmol/L (0.66-2.22) Iron Level 42 ug/dL (37-145) Total Iron Binding Capacity 96 ug/dL (250-400) L Percent Iron Saturation 44 % (15-50) Unsaturated Iron Binding 54 ug/dL (112-346) L Ferritin 101 ng/mL (13-150) Total Bilirubin 1.0 mg/dL (0.0-1.2) 0.9 mg/dL (0.0-1.2) Lactate Dehydrogenase 290 U/L (135-230) H Vitamin B12 Level > 2000 PG/ML (193-986) H Methylmalonic Acid Pending Folate Pending Homocystine Pending Hepatitis A IgM Antibody Pending Hepatitis B Surface Antigen Pending Hepatitis B Core IgM Antibody Pending Hepatitis C Antibody Pending Stool Occult Blood Pending White Blood Count 10.0 K/UL (4.8-10.8) Red Blood Count 2.20 M/UL (4.20-5.40) L Hemoglobin 6.7 G/DL (12.0-16.0) *L Hematocrit 22.3 % (37.0-47.0) L Mean Corpuscular Volume 101 FL (80-99) H Mean Corpuscular Hemoglobin 30.5 PG (27.0-31.0) Mean Corpuscular Hemoglobin Concent 30.2 G/DL (32.0-36.0) L Red Cell Distribution Width 16.4 % (11.6-14.8) H Platelet Count 18 K/UL (150-450) L Mean Platelet Volume 13.6 FL (6.5-10.1) H Neutrophils (%) (Auto) % (45.0-75.0) Lymphocytes (%) (Auto) % (20.0-45.0) Monocytes (%) (Auto) % (1.0-10.0) Eosinophils (%) (Auto) % (0.0-3.0) Basophils (%) (Auto) % (0.0-2.0) Differential Total Cells Counted 100 Neutrophils % (Manual) 90 % (45-75) H Lymphocytes % (Manual) 7 % (20-45) L Monocytes % (Manual) 2 % (1-10) Eosinophils % (Manual) 1 % (0-3) Basophils % (Manual) 0 % (0-2) Band Neutrophils 0 % (0-8) Platelet Estimate Decreased L Platelet Morphology Normal Hypochromasia 3+ Macrocytosis 1+ Sodium Level 141 mEQ/L (135-145) Potassium Level 3.6 mEQ/L (3.4-4.9) Chloride Level 109 mEQ/L (98-107) H Carbon Dioxide Level 20 mEQ/L (20-30) Anion Gap 12 (5-15) Blood Urea Nitrogen 56 mg/dL (7-23) H Creatinine 3.5 mg/dL (0.5-0.9) H Estimat Glomerular Filtration Rate mL/min (>60) Glucose Level 184 mg/dL (74-106) H Uric Acid 8.9 mg/dL (3.0-7.5) H Calcium Level 9.0 mg/dL (8.6-10.2) Phosphorus Level 2.6 mg/dL (2.5-4.8) Magnesium Level 1.9 mg/dL (1.7-2.5) Aspartate Amino Transf (AST/SGOT) 30 U/L (5-40) Alanine Aminotransferase (ALT/SGPT) 9 U/L (3-33) Alkaline Phosphatase 91 U/L (35-104) C-Reactive Protein, Quantitative 6.6 mg/dL (< 0.5) H Pro-B-Type Natriuretic Peptide 82795 pg/mL (0-450) H Total Protein 5.7 g/dL (6.6-8.7) L Albumin 2.2 g/dL (3.5-5.2) L Globulin 3.5 g/dL Albumin/Globulin Ratio 0.6 (1.0-2.7) L Arterial Blood pH 7.295 (7.350-7.450) Arterial Blood Partial Pressure CO2 39.2 mmHg (35.0-45.0) Arterial Blood Partial Pressure O2 63.6 mmHg (75.0-100.0) L Arterial Blood HCO3 18.6 mmol/L (22.0-26.0) L Arterial Blood Oxygen Saturation 89.6 % (92.0-98.0) L Arterial Blood Base Excess -7.2 Bon Test Positive Intake and Output 01/25/17 01/26/17 19:00 07:00 Intake Total 457.5 ml Output Total 5 ml Balance 452.5 ml IV Total 387.5 ml Tube Feeding 40 ml Other 30 ml Output Urine Total 5 ml # Bowel Movements 3 Objective General Appearance: WD/WN, no apparent distress, moderate distress, obese EENT: PERRL/EOMI, normal ENT inspection Neck: non-tender, normal alignment, supple, normal inspection Cardiovascular: normal peripheral pulses, normal rate, regular rhythm, no gallop/murmur, no JVD Respiratory/Chest: Mechanical vent; chest wall non-tender, lungs with coarse upper air sounds, Bilat wheezes and rales, respiratory distress Abdomen: G-Tube; non tender, no organomegaly, no mass 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 Baumanii. See ID note. Continur ertaoenem, vanco and minocycline per ID (2) CHF (congestive heart failure) Assessment & Plan: LVEF 60-65%. see cardiology note. (3) DM (diabetes mellitus) Assessment & Plan: Continue novolog sliding scale (4) Hypercholesteremia (5) HTN (hypertension) Assessment & Plan: Currently hypotensive. (6) Uncontrolled diabetes mellitus (7) Cirrhosis Assessment & Plan: see GI note. (8) Anemia Assessment & Plan: Transfuse 2 units PRBC today (9) Altered mental status Assessment & Plan: Worsening. ICU status (10) Renal failure Assessment & Plan: See nephrology note. (11) Respiratory failure Assessment & Plan: Due to CHF. Cont mech vent per pulmonary. Continue antibiotic per ID (12) Bradycardia Assessment & Plan: see cardiology note. Status: deteriorating KATHARINA POND Jan 25, 2017 14:25
[2017-01-25] MEDS ORDERED: NS 275ml ONE ×4 (16:12→16:18)
[2017-01-25] MEDS ORDERED: Tubing Blood Filter IV ONE (16:16)
[2017-01-25] MEDS ORDERED: Tubing IV Secondary IV ONE ×2 (16:16→16:17)
[2017-01-25] MEDS ORDERED: Sterile Water Irrig 1000ml IRRIG ONE (16:17)
[2017-01-25] MEDS: Dyna-Hex 2% Top Sol 2oz TOPIC SCH (20:13)
[2017-01-25] MEDS ORDERED: Dyna-Hex 2% Top Sol 2oz TOPIC SCH (21:00)
[2017-01-25] MEDS: Metoclopramide 10mg/2ml Inj IVP PRN (22:38)
[2017-01-26] VITALS (47 sets, daily range): BP systolic 85–117; BP diastolic 35–56
[2017-01-26 05:38] LABS: MEAN CORPUSCULAR VOLUME 98 FL (80-99); PLATELET COUNT 28 K/UL (150-450); RED BLOOD COUNT 2.75 M/UL (4.20-5.40); RED CELL DISTRIBUTION WIDTH 15.6 % (11.6-14.8); WHITE BLOOD COUNT 17.8 K/UL (4.8-10.8)
[2017-01-26] MEDS: Ertapenem 0.5 GM in NS 55 ML IVPB SCH (05:41)
[2017-01-26] MEDS: NovoLOG Insulin Flexpen SUBQ SCH ×3 (05:42→17:49)
[2017-01-26 07:15] LABS: ALANINE AMINOTRANSFERASE 10 U/L (12-78); ALBUMIN 2.1 G/DL (3.4-5.0); ALBUMIN/GLOBULIN RATIO 0.6 (1.0-2.7); ALKALINE PHOSPHATASE 125 U/L (46-116); ANION GAP 11 (5-15); ASPARTATE AMINO TRANSFERASE 40 U/L (15-37); BILIRUBIN,TOTAL 2.6 MG/DL (0.2-1.0); BLOOD UREA NITROGEN 60 mg/dL (7-18); CALCIUM 9.1 MG/DL (8.5-10.1); CARBON DIOXIDE 17 MMOL/L (21-32); CHLORIDE 105 MMOL/L (98-107); CREATININE 4.2 MG/DL (0.55-1.30); PHOSPHORUS 3.5 MG/DL (2.5-4.9); POTASSIUM 3.8 MMOL/L (3.5-5.1); SODIUM 133 MMOL/L (136-145)
[2017-01-26] MEDS: DOPamine 400mg/250ml 250 ML IV SCH (08:48)
[2017-01-26 08:52] LABS: BILIRUBIN,DIRECT 1.3 MG/DL (0.0-0.3)
--- NOTE | 2017-01-26 09:02 | Consultation ---
DATE OF CONSULTATION: 01/24/2017 NOTE: POOR AUDIO QUALITY HEMATOLOGY/ONCOLOGY CONSULTATION CONSULTING PHYSICIAN: Chriss Pat M.D. REQUESTING PHYSICIAN: Elena Melendez M.D. REASON FOR CONSULTATION: Evaluation of anemia and cirrhosis. IDENTIFICATION DATA: Dear Dr. Melendez: The patient is a pleasant 77-year-old female with a past medical history, which is significant for being a nursing home facility resident, [place], [place], type 2 diabetes mellitus, obstructive sleep apnea, GERD, hypercholesterolemia, history of cardiomyopathy anemia, at this time presents with confusion over the last several days, presents to [facility] for further evaluation and treatment, was found to be altered with UTI, admitted for altered mental status. I had actually seen her in the past. At this time, continuing to follow. PAST MEDICAL HISTORY: As noted above. PAST SURGICAL HISTORY: PEG tube placement and subsequent removal. MEDICATIONS: Tylenol, vitamin C , cranberry juice, Benadryl, losartan, metoprolol, , lactulose. ALLERGIES: Penicillin. SOCIAL HISTORY: A resident of [place], [place]. Denies any alcohol, tobacco, or illicit drug use. REVIEW OF SYSTEMS: Difficult to assess given the patient's mental status. PHYSICAL EXAMINATION: VITAL SIGNS: Reviewed. GENERAL: No acute distress. PULMONARY: Decreased breath sounds. CARDIOVASCULAR: Regular rate. No S3 or S4. ABDOMEN: Soft, nontender, and nondistended. EXTREMITIES: There is 1+ edema. LABORATORY DATA: WBC 6.9, hemoglobin 8.4, hematocrit 28, and platelet count 68,000. Differential INR of 1.3. Current platelet count has downtrended. At this time, it is 20,000. Reticulocyte count is 28 . The patient was noted to have microcytic anemia. ASSESSMENT AND RECOMMENDATIONS: 1. Thrombocytopenia, severe. Reviewed the patient's platelet counts all the way back to 2016 and this is the lowest platelet count that she has had over the past six years, platelet count she has had potential DIC as well as microcytic anemia. Therefore, we will send for a vitamin B12 and folic acid level. Vitamin B12 on this admission not yet completed. In addition, we will order further anemia workup given INR elevation. 2. Coagulopathy, possibly secondary to underlying liver disease. CAT scan on 12/25/2016 shows questionable hyperattenuated segment III of the liver lesion hepatic cirrhosis, splenomegaly. 3. Thrombocytopenia secondary to underlying splenomegaly. 4. Anemia, rule out other causes. 5. Leukocytosis secondary to underlying infection, order DIC panel. 6. Diabetes mellitus. Continue to closely monitor. 7. Altered mental status, he is in the intensive care unit. 8. Bradycardia 9. Thrombocytopenia, again, secondary to potential as well. I appreciate the consultation. Chriss Pat M.D. DR: Carola JOB#: [id number] CC:
[2017-01-26] MEDS: Lactulose 10gm/15ml UDC ORAL SCH ×2 (09:05→17:48)
[2017-01-26] MEDS: Nystatin Powder 100,000 units/gm 15gm TOPIC SCH ×3 (09:05→17:48)
[2017-01-26] MEDS: Pantoprazole Inj IVP SCH ×2 (09:05→20:22)
[2017-01-26] MEDS: Vancomycin oral 125mg/2.5ml ORAL SCH ×2 (09:06→17:47)
--- NOTE | 2017-01-26 09:53 | Infectious Diseases Prog Note ---
Assessment/Plan Assessment/Plan Assesment: Encephalopathy- possibly multifactorial- hepatic encephalopathy, infection- worsening now due to hypercapnea (transferred to ICU 01/21), on bipap> intubated Acute respiratory failure s/p intubation - 2ry to hypercapnea, PNA Sepsis 2ry to PNA and Bacteremia HCAP 2ry to ESBL. E.coli -CXR 01/25: Extensive bilateral interstitial and airspace edema/infiltrates slightly increased in the right lung. Stable support lines and tubes. -CXR 01/23 : Interval worsening pulmonary edema. MRSA bacteremia- ?source, r/o endocarditis -01/16 04/23 BCx S. aureus (sensi pending), repeat Bcx 01/19 NTD, 01/21 04/23 CoNS ( contaminant), 10 Bcx NTD -TTE (limited study): No aortic regurgitation.Trace mitral regurgitation.Mitral diastolic velocities suggest reduced left ventricular relaxation c/w diastolic dysfunction grade 1.Moderate tricuspid regurgitation. Leukocytosis, worsening -01/24 Bcx NTD -01/22 u/a WBC 30-40, ucx yeast (colonizer) -Sp cx ESBL E.coli, diaz (colonizer) -Bcx NTD Probable MDR UTI, pyuria, s/p Rx -u/a 01/16 WBC too many to count,nit neg ,leuk est +3; UCx x3 grew >100K MDR A.baumani complex (S. tigecycline/Minocycline, Polymixin B/Colistin), >100K PsA (S. Cefepime, Zosyn; R Cipro/Levo); a prior isolated on a ucx from the same day isolated MDR PsA (I. Cefepime, R ceftzadime, Meropenem; S. Tygecicine, amikacin) -renal u/s: Nondiagnostic exam RAMYA on CKD Cirrhosis Anemia & thrombocytopenia DM type 2 Morbid obesity PLAN: -Continue Ertapenem for ESBL E. coli in sputum (will start tomorrow as received dose of Amikacin this am); abx d# 5 -s/p 7d Cefepime 10/7 -s/p 3d Amikacin 10/7 -s/p 7d Minocycline 10/7 -Continue IV Vancomycin #8 For MRSA bacteremia -s/p 3d IV vanco 01/18 -continue prophylatic PO Vancomycin #4 -If consistent with goals of care, Repeat infectious w/u given worsening WBC -Patient is DNR & DNI Terminal extubation is considered by family, ?today Discussed with MESERET Bui px; critically ill Subjective Allergies: Coded Allergies: PENICILLINS (Unverified Allergy, Unknown, 03/22/15) Subjective remains critically ill afebrile worsening WBC possible terminal extubation today Objective Vital Signs Last 24 Hour Vital Signs Date Time Temp Pulse Resp B/P (MAP) Pulse Ox O2 Delivery O2 Flow Rate FiO2 01/26/17 08:48 101/47 01/26/17 08:35 78 18 60 01/26/17 08:00 79 22 101/47 99 Mechanical Ventilator 60 01/26/17 08:00 98.5 83 18 98/48 99 Mechanical Ventilator 60 01/26/17 08:00 60 01/26/17 08:00 82 01/26/17 07:30 81 18 100/50 99 Mechanical Ventilator 60 01/26/17 07:00 81 22 97/44 99 Mechanical Ventilator 60 01/26/17 06:32 79 19 60 01/26/17 06:30 82 20 91/43 98 Mechanical Ventilator 60 01/26/17 06:00 84 20 94/40 97 Mechanical Ventilator 60 01/26/17 05:30 84 25 93/46 98 Mechanical Ventilator 60 01/26/17 05:20 93 18 60 01/26/17 05:00 93 22 117/51 98 Mechanical Ventilator 60 01/26/17 04:30 85 22 85/35 99 Mechanical Ventilator 60 01/26/17 04:00 94 01/26/17 04:00 98.1 94 26 109/51 99 Mechanical Ventilator 60 01/26/17 04:00 109/51 01/26/17 04:00 60 01/26/17 03:36 92 19 60 01/26/17 03:30 94 26 102/49 99 Mechanical Ventilator 60 01/26/17 03:00 92 22 99/42 96 Mechanical Ventilator 60 01/26/17 03:00 102/49 01/26/17 02:30 95 23 99/49 96 Mechanical Ventilator 60 01/26/17 02:00 96 22 104/47 96 Mechanical Ventilator 60 01/26/17 01:39 97 18 60 01/26/17 01:30 96 22 104/52 96 Mechanical Ventilator 60 01/26/17 01:00 97 22 101/50 95 Mechanical Ventilator 60 01/26/17 00:30 96 22 107/51 95 Mechanical Ventilator 60 01/26/17 00:00 98.1 97 25 106/50 95 Mechanical Ventilator 60 01/26/17 00:00 99 01/25/17 23:30 98 23 103/50 95 Mechanical Ventilator 60 01/25/17 23:17 95 19 60 01/25/17 23:00 98 26 107/51 95 Mechanical Ventilator 60 01/25/17 22:30 97 20 106/51 95 Mechanical Ventilator 60 01/25/17 22:00 99 20 103/51 95 Mechanical Ventilator 60 01/25/17 21:30 98 20 110/60 95 Mechanical Ventilator 60 01/25/17 21:00 99 21 101/81 95 Mechanical Ventilator 60 01/25/17 21:00 95 20 60 01/25/17 20:30 89 21 101/50 95 Mechanical Ventilator 60 01/25/17 20:00 60 01/25/17 20:00 88 01/25/17 20:00 88/54 01/25/17 20:00 97.1 88 22 88/54 95 Mechanical Ventilator 60 01/25/17 19:40 96 19 60 01/25/17 19:00 89 21 93/48 95 Mechanical Ventilator 60 01/25/17 19:00 93/48 01/25/17 18:30 86 18 97/51 94 Mechanical Ventilator 60 01/25/17 18:00 102/46 01/25/17 18:00 89 18 102/46 95 Mechanical Ventilator 60 01/25/17 17:30 90 23 100/48 95 Mechanical Ventilator 60 01/25/17 17:00 102/48 01/25/17 17:00 90 23 102/48 95 Mechanical Ventilator 60 01/25/17 16:59 91 18 60 01/25/17 16:30 91 19 107/46 96 Mechanical Ventilator 60 01/25/17 16:15 92 20 112/47 96 Mechanical Ventilator 60 01/25/17 16:00 60 01/25/17 16:00 90 01/25/17 16:00 96.7 93 19 109/52 96 Mechanical Ventilator 60 01/25/17 16:00 112/47 01/25/17 15:45 93 19 113/50 96 Mechanical Ventilator 60 01/25/17 15:30 92 19 123/52 96 Mechanical Ventilator 60 01/25/17 15:15 87 21 126/54 96 Mechanical Ventilator 60 01/25/17 15:00 82/71 01/25/17 15:00 80 21 82/71 96 Mechanical Ventilator 60 01/25/17 14:45 68 20 103/47 92 Mechanical Ventilator 50 01/25/17 14:34 68 18 60 01/25/17 14:30 72 20 89/45 92 Mechanical Ventilator 50 01/25/17 14:15 72 20 90/55 92 Mechanical Ventilator 50 01/25/17 14:00 72 20 95/44 92 Mechanical Ventilator 50 01/25/17 14:00 95/44 01/25/17 13:45 74 20 96/45 92 Mechanical Ventilator 50 01/25/17 13:30 77 18 96/47 92 Mechanical Ventilator 50 01/25/17 13:15 95.2 78 21 101/43 92 Mechanical Ventilator 50 01/25/17 13:00 100/43 01/25/17 13:00 79 21 100/43 91 Mechanical Ventilator 50 01/25/17 12:45 79 23 103/48 93 Mechanical Ventilator 50 01/25/17 12:35 85 19 50 01/25/17 12:30 81 21 103/45 94 Mechanical Ventilator 50 01/25/17 12:15 107 20 100/75 96 Mechanical Ventilator 60 01/25/17 12:15 111/46 01/25/17 12:00 137/61 01/25/17 12:00 60 01/25/17 12:00 100 01/25/17 12:00 95.3 113 18 137/61 96 Mechanical Ventilator 60 01/25/17 11:45 69 18 92/52 96 Mechanical Ventilator 60 01/25/17 11:38 88/55 01/25/17 11:00 62 18 88/55 95 Mechanical Ventilator 60 01/25/17 10:33 55 18 60 01/25/17 10:00 58 24 75/36 95 Mechanical Ventilator 60 Height (Feet): 5 Height (Inches): 6.00 Weight (Pounds): 269 Objective HEENT: No pale conjunctivae. No icterus.ETT in place NECK: No lymphadenopathy. CHEST: coarse breath sounds HEART: S1 and S2. ABDOMEN: Soft and obese. EXTREMITIES: No cyanosis. NEUROLOGIC: lethargic. Skin: no rashes Microbiology Date/Time Source Procedure Growth Status 01/24/17 10:15 Blood Blood Culture - Preliminary NO GROWTH AFTER 24 HOURS Resulted 01/24/17 10:00 Blood Blood Culture - Preliminary NO GROWTH AFTER 24 HOURS Resulted Laboratory Tests Test 01/26/17 04:35 01/26/17 06:32 White Blood Count 17.8 K/UL (4.8-10.8) #H Red Blood Count 2.75 M/UL (4.20-5.40) L Hemoglobin 9.0 G/DL (12.0-16.0) #L Hematocrit 27.0 % (37.0-47.0) L Mean Corpuscular Volume 98 FL (80-99) Mean Corpuscular Hemoglobin 32.9 PG (27.0-31.0) H Mean Corpuscular Hemoglobin Concent 33.4 G/DL (32.0-36.0) Red Cell Distribution Width 15.6 % (11.6-14.8) H Platelet Count 28 K/UL (150-450) #L Mean Platelet Volume 11.6 FL (6.5-10.1) H Neutrophils (%) (Auto) % (45.0-75.0) Lymphocytes (%) (Auto) % (20.0-45.0) Monocytes (%) (Auto) % (1.0-10.0) Eosinophils (%) (Auto) % (0.0-3.0) Basophils (%) (Auto) % (0.0-2.0) Neutrophils % (Manual) Pending Lymphocytes % (Manual) Pending Platelet Estimate Pending Platelet Morphology Pending Sodium Level 133 MMOL/L (136-145) L Potassium Level 3.8 MMOL/L (3.5-5.1) Chloride Level 105 MMOL/L (98-107) Carbon Dioxide Level 17 MMOL/L (21-32) L Anion Gap 11 (5-15) Blood Urea Nitrogen 60 mg/dL (7-18) H Creatinine 4.2 MG/DL (0.55-1.30) H Estimat Glomerular Filtration Rate mL/min (>60) Glucose Level 140 MG/DL (74-106) H Calcium Level 9.1 MG/DL (8.5-10.1) Phosphorus Level 3.5 MG/DL (2.5-4.9) Magnesium Level 1.7 MG/DL (1.8-2.4) L Total Bilirubin 2.6 MG/DL (0.2-1.0) H Direct Bilirubin 1.3 MG/DL (0.0-0.3) H Aspartate Amino Transf (AST/SGOT) 40 U/L (15-37) H Alanine Aminotransferase (ALT/SGPT) 10 U/L (12-78) L Alkaline Phosphatase 125 U/L (46-116) H Total Protein 5.3 G/DL (6.4-8.2) L Albumin 2.1 G/DL (3.4-5.0) L Globulin 3.2 g/dL Albumin/Globulin Ratio 0.6 (1.0-2.7) L Arterial Blood pH 7.290 (7.350-7.450) Arterial Blood Partial Pressure CO2 35.0 mmHg (35.0-45.0) Arterial Blood Partial Pressure O2 97.9 mmHg (75.0-100.0) Arterial Blood HCO3 16.7 mmol/L (22.0-26.0) L Arterial Blood Oxygen Saturation 96.4 % (92.0-98.0) Arterial Blood Base Excess -9.0 Bon Test Positive Current Medications Medications (Trade) Dose Ordered Sig/Pavel Route PRN Reason Start Time Stop Time Status Last Admin Dose Admin Acetaminophen (Tylenol) 650 mg Q4H PRN ORAL T>100.5 01/21/17 14:30 02/15/17 14:29 Albuterol/ Ipratropium (DuoNeb 0.5-3(2.5)mg/3ml) 3 ml Q4H PRN HHN Shortness of Breath 01/21/17 14:30 01/28/17 14:29 Chlorhexidine Gluconate (Dianne-Hex 2%) 1 applic DAILY@1999 TOPIC 01/25/17 20:00 02/24/17 19:59 01/25/17 20:13 Clotrimazole (Lotrimin) 1 applic EVERY 12 HOURS TOPIC 01/21/17 21:00 02/18/17 13:59 01/26/17 09:05 Dextrose 1,000 ml @ 75 mls/hr [id number] IV 01/24/17 16:00 02/23/17 15:59 01/26/17 09:05 Dextrose (Dextrose 50%) STAT PRN IV Hypoglycemia 01/21/17 14:30 02/17/17 14:29 Dopamine HCl/ Dextrose 250 ml @ 0 mls/hr Q24H IV 01/25/17 11:15 02/24/17 11:14 01/26/17 08:48 Ertapenem 0.5 gm/ Sodium Chloride 55 ml @ 110 mls/hr Q24H IVPB 01/25/17 06:00 01/30/17 05:59 01/26/17 05:41 Insulin Aspart (NovoLOG) EVERY 6 HOURS SUBQ 01/22/17 12:00 02/15/17 16:29 01/26/17 05:42 Lactulose (Cephulac) 10 gm BID ORAL 01/23/17 09:00 02/18/17 12:59 01/26/17 09:05 Lorazepam (Ativan 2mg/ml 1ml) 2 mg Q4H PRN IV For Anxiety 01/22/17 06:45 01/29/17 06:44 01/23/17 09:10 Metoclopramide HCl (Reglan) 10 mg Q6H PRN IVP Nausea & Vomiting 01/25/17 22:30 02/24/17 22:29 01/25/17 22:38 Morphine Sulfate (Morphine Sulfate) 4 mg Q4H PRN IVP For Pain 01/22/17 06:45 01/29/17 06:44 Nitroglycerin (Ntg) 0.4 mg Q5MIN X 3 DOSES PRN SL Prn Chest Pain 01/21/17 14:30 02/15/17 14:29 Nystatin (Nystop Powder) 1 applic THREE TIMES A DAY TOPIC 01/22/17 13:00 02/21/17 12:59 01/26/17 09:05 Ondansetron HCl (Zofran) 4 mg Q6H PRN IVP Nausea & Vomiting 01/21/17 14:30 02/15/17 14:29 Pantoprazole (Protonix) 40 mg EVERY 12 HOURS IVP 01/21/17 21:00 02/20/17 20:59 01/26/17 09:05 Polyethylene Glycol (Miralax) 17 gm DAILYPRN PRN ORAL Constipation 01/21/17 14:00 02/17/17 13:59 Vancomycin HCl (Vanco rx to dose) 1 ea DAILY PRN MISC Per rx protocol 01/22/17 09:00 02/18/17 11:44 Vancomycin HCl (Vancomycin) 125 mg BID ORAL 01/23/17 19:30 01/30/17 19:29 01/26/17 09:06 Nereyda Monroe M.D. Jan 26, 2017 09:53
--- NOTE | 2017-01-26 11:02 | Pulmonolgy Critical Care Note ---
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 Respiratory: monitor respiratory rate, adjust FIO2, CXR Cardiac: continue pressors, continue to monitor HR/BP Renal: F/U I&O, keep IV fluid Infectious Disease: check cultures Gastrointestinal: continue feedings/current rate Endocrine: monitor blood sugar, check TSH, continue sliding scale insulin Hematologic: monitor H/H, transfuse if hgb<8.5 Neurologic: keep patient comfortable Affect: PRN ativan Notes Reviewed: supervisor roving, cardio Discussed with: consultants, case manager specialistelectrical and instrumentation manager - Objective Last 24 Hour Vital Signs Date Time Temp Pulse Resp B/P (MAP) Pulse Ox O2 Delivery O2 Flow Rate FiO2 01/26/17 10:40 80 18 60 01/26/17 10:00 98/46 01/26/17 10:00 81 18 105/50 99 Mechanical Ventilator 60 01/26/17 09:30 79 18 98/48 99 Mechanical Ventilator 60 01/26/17 09:00 79 18 105/49 99 Mechanical Ventilator 60 01/26/17 08:48 101/47 01/26/17 08:35 78 18 60 01/26/17 08:30 80 18 99/47 99 Mechanical Ventilator 60 01/26/17 08:00 79 22 101/47 99 Mechanical Ventilator 60 01/26/17 08:00 98.5 83 18 98/48 99 Mechanical Ventilator 60 01/26/17 08:00 60 01/26/17 08:00 82 01/26/17 07:30 81 18 100/50 99 Mechanical Ventilator 60 01/26/17 07:00 81 22 97/44 99 Mechanical Ventilator 60 01/26/17 06:32 79 19 60 01/26/17 06:30 82 20 91/43 98 Mechanical Ventilator 60 01/26/17 06:00 84 20 94/40 97 Mechanical Ventilator 60 01/26/17 05:30 84 25 93/46 98 Mechanical Ventilator 60 01/26/17 05:20 93 18 60 01/26/17 05:00 93 22 117/51 98 Mechanical Ventilator 60 01/26/17 04:30 85 22 85/35 99 Mechanical Ventilator 60 01/26/17 04:00 94 01/26/17 04:00 98.1 94 26 109/51 99 Mechanical Ventilator 60 01/26/17 04:00 109/51 01/26/17 04:00 60 01/26/17 03:36 92 19 60 01/26/17 03:30 94 26 102/49 99 Mechanical Ventilator 60 01/26/17 03:00 92 22 99/42 96 Mechanical Ventilator 60 01/26/17 03:00 102/49 01/26/17 02:30 95 23 99/49 96 Mechanical Ventilator 60 01/26/17 02:00 96 22 104/47 96 Mechanical Ventilator 60 01/26/17 01:39 97 18 60 01/26/17 01:30 96 22 104/52 96 Mechanical Ventilator 60 01/26/17 01:00 97 22 101/50 95 Mechanical Ventilator 60 01/26/17 00:30 96 22 107/51 95 Mechanical Ventilator 60 01/26/17 00:00 98.1 97 25 106/50 95 Mechanical Ventilator 60 01/26/17 00:00 99 01/25/17 23:30 98 23 103/50 95 Mechanical Ventilator 60 01/25/17 23:17 95 19 60 01/25/17 23:00 98 26 107/51 95 Mechanical Ventilator 60 01/25/17 22:30 97 20 106/51 95 Mechanical Ventilator 60 01/25/17 22:00 99 20 103/51 95 Mechanical Ventilator 60 01/25/17 21:30 98 20 110/60 95 Mechanical Ventilator 60 01/25/17 21:00 99 21 101/81 95 Mechanical Ventilator 60 01/25/17 21:00 95 20 60 01/25/17 20:30 89 21 101/50 95 Mechanical Ventilator 60 01/25/17 20:00 60 01/25/17 20:00 88 01/25/17 20:00 88/54 01/25/17 20:00 97.1 88 22 88/54 95 Mechanical Ventilator 60 01/25/17 19:40 96 19 60 01/25/17 19:00 89 21 93/48 95 Mechanical Ventilator 60 01/25/17 19:00 93/48 01/25/17 18:30 86 18 97/51 94 Mechanical Ventilator 60 01/25/17 18:00 102/46 01/25/17 18:00 89 18 102/46 95 Mechanical Ventilator 60 01/25/17 17:30 90 23 100/48 95 Mechanical Ventilator 60 01/25/17 17:00 102/48 01/25/17 17:00 90 23 102/48 95 Mechanical Ventilator 60 01/25/17 16:59 91 18 60 01/25/17 16:30 91 19 107/46 96 Mechanical Ventilator 60 01/25/17 16:15 92 20 112/47 96 Mechanical Ventilator 60 01/25/17 16:00 60 01/25/17 16:00 90 01/25/17 16:00 96.7 93 19 109/52 96 Mechanical Ventilator 60 01/25/17 16:00 112/47 01/25/17 15:45 93 19 113/50 96 Mechanical Ventilator 60 01/25/17 15:30 92 19 123/52 96 Mechanical Ventilator 60 01/25/17 15:15 87 21 126/54 96 Mechanical Ventilator 60 01/25/17 15:00 82/71 01/25/17 15:00 80 21 82/71 96 Mechanical Ventilator 60 01/25/17 14:45 68 20 103/47 92 Mechanical Ventilator 50 01/25/17 14:34 68 18 60 01/25/17 14:30 72 20 89/45 92 Mechanical Ventilator 50 01/25/17 14:15 72 20 90/55 92 Mechanical Ventilator 50 01/25/17 14:00 72 20 95/44 92 Mechanical Ventilator 50 01/25/17 14:00 95/44 01/25/17 13:45 74 20 96/45 92 Mechanical Ventilator 50 01/25/17 13:30 77 18 96/47 92 Mechanical Ventilator 50 01/25/17 13:15 95.2 78 21 101/43 92 Mechanical Ventilator 50 01/25/17 13:00 100/43 01/25/17 13:00 79 21 100/43 91 Mechanical Ventilator 50 01/25/17 12:45 79 23 103/48 93 Mechanical Ventilator 50 01/25/17 12:35 85 19 50 01/25/17 12:30 81 21 103/45 94 Mechanical Ventilator 50 01/25/17 12:15 107 20 100/75 96 Mechanical Ventilator 60 01/25/17 12:15 111/46 01/25/17 12:00 137/61 01/25/17 12:00 60 01/25/17 12:00 100 01/25/17 12:00 95.3 113 18 137/61 96 Mechanical Ventilator 60 01/25/17 11:45 69 18 92/52 96 Mechanical Ventilator 60 01/25/17 11:38 88/55 01/25/17 11:00 62 18 88/55 95 Mechanical Ventilator 60 Status: awake Condition: critical HEENT: atraumatic Lungs: clear, chest wall tender Heart: HR/BP unstable, regular Abdomen: soft, active bowel sounds, feeding tube Extremities: edema Decubiti: location, stage Micro: Microbiology Date/Time Source Procedure Growth Status 01/24/17 10:15 Blood Blood Culture - Preliminary NO GROWTH AFTER 24 HOURS Resulted 01/24/17 10:00 Blood Blood Culture - Preliminary NO GROWTH AFTER 24 HOURS Resulted Accucheck: 138 Critical Care - Subjective ROS Limited/Unobtainable: Yes ICU Day: 6 Intubation Day: 6 Condition: critical EKG Rhythm: Sinus Rhythm FI02: 60 Vent Support Breath Rate: 18 Vent Support Mode: AC Vent Tidal Volume: 600 Sputum Amount: Scant PEEP: 0.0 PIP: 46 Tube Feeding Amount: 20 I&O: Intake and Output 01/26/17 01/27/17 19:00 07:00 Intake Total 228.02 ml Output Total 0 ml Balance 228.02 ml IV Total 168.02 ml Other 60 ml Output Urine Total 0 ml CXR: no change, ET-Tube: 7.0 ET Position: 21 Labs: Laboratory Tests Test 01/26/17 04:35 01/26/17 06:32 White Blood Count 17.8 K/UL (4.8-10.8) #H Red Blood Count 2.75 M/UL (4.20-5.40) L Hemoglobin 9.0 G/DL (12.0-16.0) #L Hematocrit 27.0 % (37.0-47.0) L Mean Corpuscular Volume 98 FL (80-99) Mean Corpuscular Hemoglobin 32.9 PG (27.0-31.0) H Mean Corpuscular Hemoglobin Concent 33.4 G/DL (32.0-36.0) Red Cell Distribution Width 15.6 % (11.6-14.8) H Platelet Count 28 K/UL (150-450) #L Mean Platelet Volume 11.6 FL (6.5-10.1) H Neutrophils (%) (Auto) % (45.0-75.0) Lymphocytes (%) (Auto) % (20.0-45.0) Monocytes (%) (Auto) % (1.0-10.0) Eosinophils (%) (Auto) % (0.0-3.0) Basophils (%) (Auto) % (0.0-2.0) Differential Total Cells Counted 100 Neutrophils % (Manual) 87 % (45-75) H Lymphocytes % (Manual) 8 % (20-45) L Monocytes % (Manual) 3 % (1-10) Eosinophils % (Manual) 2 % (0-3) Basophils % (Manual) 0 % (0-2) Band Neutrophils 0 % (0-8) Platelet Estimate Decreased L Platelet Morphology Normal Hypochromasia 1+ Anisocytosis 1+ Sodium Level 133 MMOL/L (136-145) L Potassium Level 3.8 MMOL/L (3.5-5.1) Chloride Level 105 MMOL/L (98-107) Carbon Dioxide Level 17 MMOL/L (21-32) L Anion Gap 11 (5-15) Blood Urea Nitrogen 60 mg/dL (7-18) H Creatinine 4.2 MG/DL (0.55-1.30) H Estimat Glomerular Filtration Rate mL/min (>60) Glucose Level 140 MG/DL (74-106) H Calcium Level 9.1 MG/DL (8.5-10.1) Phosphorus Level 3.5 MG/DL (2.5-4.9) Magnesium Level 1.7 MG/DL (1.8-2.4) L Total Bilirubin 2.6 MG/DL (0.2-1.0) H Direct Bilirubin 1.3 MG/DL (0.0-0.3) H Aspartate Amino Transf (AST/SGOT) 40 U/L (15-37) H Alanine Aminotransferase (ALT/SGPT) 10 U/L (12-78) L Alkaline Phosphatase 125 U/L (46-116) H Total Protein 5.3 G/DL (6.4-8.2) L Albumin 2.1 G/DL (3.4-5.0) L Globulin 3.2 g/dL Albumin/Globulin Ratio 0.6 (1.0-2.7) L Arterial Blood pH 7.290 (7.350-7.450) Arterial Blood Partial Pressure CO2 35.0 mmHg (35.0-45.0) Arterial Blood Partial Pressure O2 97.9 mmHg (75.0-100.0) Arterial Blood HCO3 16.7 mmol/L (22.0-26.0) L Arterial Blood Oxygen Saturation 96.4 % (92.0-98.0) Arterial Blood Base Excess -9.0 Bon Test Positive DIONI TRIANA Jan 26, 2017 11:02
--- NOTE | 2017-01-26 11:27 | Internal Med Progress Note ---
Subjective Date of Service: Jan 26, 2017 Physician Name Pond,Katharina Attending Physician Rl Tee MD Current Medications Medications (Trade) Dose Ordered Sig/Pavel Route PRN Reason Start Time Stop Time Status Last Admin Dose Admin Acetaminophen (Tylenol) 650 mg Q4H PRN ORAL T>100.5 01/21/17 14:30 02/15/17 14:29 Albuterol/ Ipratropium (DuoNeb 0.5-3(2.5)mg/3ml) 3 ml Q4H PRN HHN Shortness of Breath 01/21/17 14:30 01/28/17 14:29 Chlorhexidine Gluconate (Dianne-Hex 2%) 1 applic DAILY@2000 TOPIC 01/25/17 20:00 02/24/17 19:59 01/25/17 20:13 Clotrimazole (Lotrimin) 1 applic EVERY 12 HOURS TOPIC 01/21/17 21:00 02/18/17 13:59 01/26/17 09:05 Dextrose 1,000 ml @ 75 mls/hr [id number] IV 01/24/17 16:00 02/23/17 15:59 01/26/17 09:05 Dextrose (Dextrose 50%) STAT PRN IV Hypoglycemia 01/21/17 14:30 02/17/17 14:29 Dopamine HCl/ Dextrose 250 ml @ 0 mls/hr Q24H IV 01/25/17 11:15 02/24/17 11:14 01/26/17 08:48 Ertapenem 0.5 gm/ Sodium Chloride 55 ml @ 110 mls/hr Q24H IVPB 01/25/17 06:00 01/30/17 05:59 01/26/17 05:41 Insulin Aspart (NovoLOG) EVERY 6 HOURS SUBQ 01/22/17 12:00 02/15/17 16:29 01/26/17 05:42 Lactulose (Cephulac) 10 gm BID ORAL 01/23/17 09:00 02/18/17 12:59 01/26/17 09:05 Lorazepam (Ativan 2mg/ml 1ml) 2 mg Q4H PRN IV For Anxiety 01/22/17 06:45 01/29/17 06:44 01/23/17 09:10 Metoclopramide HCl (Reglan) 10 mg Q6H PRN IVP Nausea & Vomiting 01/25/17 22:30 02/24/17 22:29 01/25/17 22:38 Morphine Sulfate (Morphine Sulfate) 4 mg Q4H PRN IVP For Pain 01/22/17 06:45 01/29/17 06:44 Nitroglycerin (Ntg) 0.4 mg Q5MIN X 3 DOSES PRN SL Prn Chest Pain 01/21/17 14:30 02/15/17 14:29 Nystatin (Nystop Powder) 1 applic THREE TIMES A DAY TOPIC 01/22/17 13:00 02/21/17 12:59 01/26/17 09:05 Ondansetron HCl (Zofran) 4 mg Q6H PRN IVP Nausea & Vomiting 01/21/17 14:30 02/15/17 14:29 Pantoprazole (Protonix) 40 mg EVERY 12 HOURS IVP 01/21/17 21:00 02/20/17 20:59 01/26/17 09:05 Polyethylene Glycol (Miralax) 17 gm DAILYPRN PRN ORAL Constipation 01/21/17 14:00 02/17/17 13:59 Vancomycin HCl (Vanco rx to dose) 1 ea DAILY PRN MISC Per rx protocol 01/22/17 09:00 02/18/17 11:44 Vancomycin HCl (Vancomycin) 125 mg BID ORAL 01/23/17 19:30 01/30/17 19:29 01/26/17 09:06 Allergies: Coded Allergies: PENICILLINS (Unverified Allergy, Unknown, 03/22/15) ROS Limited/Unobtainable: Yes Subjective 76 YO F admitted with altered mental status. Now UTI and CHF. Intubated and sedated. ICU . Cover for Int Med-Dr Tee. Continues on Dopamine Objective Last Vital Signs Date Time Temp Pulse Resp B/P (MAP) Pulse Ox O2 Delivery O2 Flow Rate FiO2 01/26/17 10:40 80 18 60 01/26/17 10:00 98/46 01/26/17 10:00 99 Mechanical Ventilator 01/26/17 08:00 98.5 01/21/17 17:00 Laboratory Tests Test 01/26/17 04:35 01/26/17 06:32 White Blood Count 17.8 K/UL (4.8-10.8) #H Red Blood Count 2.75 M/UL (4.20-5.40) L Hemoglobin 9.0 G/DL (12.0-16.0) #L Hematocrit 27.0 % (37.0-47.0) L Mean Corpuscular Volume 98 FL (80-99) Mean Corpuscular Hemoglobin 32.9 PG (27.0-31.0) H Mean Corpuscular Hemoglobin Concent 33.4 G/DL (32.0-36.0) Red Cell Distribution Width 15.6 % (11.6-14.8) H Platelet Count 28 K/UL (150-450) #L Mean Platelet Volume 11.6 FL (6.5-10.1) H Neutrophils (%) (Auto) % (45.0-75.0) Lymphocytes (%) (Auto) % (20.0-45.0) Monocytes (%) (Auto) % (1.0-10.0) Eosinophils (%) (Auto) % (0.0-3.0) Basophils (%) (Auto) % (0.0-2.0) Differential Total Cells Counted 100 Neutrophils % (Manual) 87 % (45-75) H Lymphocytes % (Manual) 8 % (20-45) L Monocytes % (Manual) 3 % (1-10) Eosinophils % (Manual) 2 % (0-3) Basophils % (Manual) 0 % (0-2) Band Neutrophils 0 % (0-8) Platelet Estimate Decreased L Platelet Morphology Normal Hypochromasia 1+ Anisocytosis 1+ Sodium Level 133 MMOL/L (136-145) L Potassium Level 3.8 MMOL/L (3.5-5.1) Chloride Level 105 MMOL/L (98-107) Carbon Dioxide Level 17 MMOL/L (21-32) L Anion Gap 11 (5-15) Blood Urea Nitrogen 60 mg/dL (7-18) H Creatinine 4.2 MG/DL (0.55-1.30) H Estimat Glomerular Filtration Rate mL/min (>60) Glucose Level 140 MG/DL (74-106) H Calcium Level 9.1 MG/DL (8.5-10.1) Phosphorus Level 3.5 MG/DL (2.5-4.9) Magnesium Level 1.7 MG/DL (1.8-2.4) L Total Bilirubin 2.6 MG/DL (0.2-1.0) H Direct Bilirubin 1.3 MG/DL (0.0-0.3) H Aspartate Amino Transf (AST/SGOT) 40 U/L (15-37) H Alanine Aminotransferase (ALT/SGPT) 10 U/L (12-78) L Alkaline Phosphatase 125 U/L (46-116) H Total Protein 5.3 G/DL (6.4-8.2) L Albumin 2.1 G/DL (3.4-5.0) L Globulin 3.2 g/dL Albumin/Globulin Ratio 0.6 (1.0-2.7) L Arterial Blood pH 7.290 (7.350-7.450) Arterial Blood Partial Pressure CO2 35.0 mmHg (35.0-45.0) Arterial Blood Partial Pressure O2 97.9 mmHg (75.0-100.0) Arterial Blood HCO3 16.7 mmol/L (22.0-26.0) L Arterial Blood Oxygen Saturation 96.4 % (92.0-98.0) Arterial Blood Base Excess -9.0 Bon Test Positive Microbiology Date/Time Source Procedure Growth Status 01/24/17 10:15 Blood Blood Culture - Preliminary NO GROWTH AFTER 24 HOURS Resulted 01/24/17 10:00 Blood Blood Culture - Preliminary NO GROWTH AFTER 24 HOURS Resulted Intake and Output 01/26/17 01/27/17 19:00 07:00 Intake Total 228.02 ml Output Total 0 ml Balance 228.02 ml IV Total 168.02 ml Other 60 ml Output Urine Total 0 ml Objective General Appearance: WD/WN, no apparent distress, moderate distress, obese EENT: PERRL/EOMI, normal ENT inspection Neck: non-tender, normal alignment, supple, normal inspection Cardiovascular: normal peripheral pulses, normal rate, regular rhythm, no gallop/murmur, no JVD Respiratory/Chest: Mechanical vent; chest wall non-tender, lungs with coarse upper air sounds, Bilat wheezes and rales, respiratory distress Abdomen: G-Tube; non tender, no organomegaly, no mass 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 Baumanii. See ID note. Continur ertaoenem, vanco and minocycline per ID (2) CHF (congestive heart failure) Assessment & Plan: LVEF 60-65%. see cardiology note. (3) DM (diabetes mellitus) Assessment & Plan: Continue novolog sliding scale (4) Hypercholesteremia (5) HTN (hypertension) Assessment & Plan: Currently hypotensive. (6) Uncontrolled diabetes mellitus (7) Cirrhosis Assessment & Plan: see GI note. (8) Anemia Assessment & Plan: Transfuse 2 units PRBC today (9) Altered mental status Assessment & Plan: Worsening. ICU status (10) Renal failure Assessment & Plan: See nephrology note. (11) Respiratory failure Assessment & Plan: Due to CHF. Cont mech vent per pulmonary. Continue antibiotic per ID (12) Bradycardia Assessment & Plan: see cardiology note. (13) Hypotension Assessment & Plan: Continue dopamine Status: unchanged KATHARINA POND Jan 26, 2017 11:27
--- NOTE | 2017-01-26 12:42 | Diagnostic Imaging Report ---
Indication: Dyspnea Comparison: 01/25/17 A single view chest radiograph was obtained. Findings: Extensive airspace disease noted bilaterally unchanged in pattern and distribution, but probably slightly improved in severity. Heart size is relatively stable. Tubes and lines are stable. Impression: Slightly improved airspace disease noted bilaterally, still quite extensive in degree. Tubes and lines stable.
--- NOTE | 2017-01-26 13:13 | General Progress Note ---
Assessment/Plan Status: deteriorating - renal parameters Assessment/Plan Acute on chronic renal failure- multifactorial CHF DM HTN Sepsis Now: Acute respiratory failure- Intubated - Altered level of consciousness - ESBL (extended spectrum beta-lactamase) producing bacteria infection - Cardiomegaly - DM (diabetes mellitus) - HTN (hypertension) - UTI (urinary tract infection) - Anemia - High Cholestrol - COPD - YELENA - Fatty liver Plan: Transfuse- consider dialysis - daughter requests Optimize cardiac and pulmonary status 2D echo results noted avoid nephrotoxics monitor renal parameters Urine studies per orders Subjective ROS Limited/Unobtainable: Yes Allergies: Coded Allergies: PENICILLINS (Unverified Allergy, Unknown, 03/22/15) Objective Last 24 Hour Vital Signs Date Time Temp Pulse Resp B/P (MAP) Pulse Ox O2 Delivery O2 Flow Rate FiO2 01/26/17 12:30 80 20 95/44 99 Mechanical Ventilator 60 01/26/17 12:00 80 01/26/17 12:00 96/44 01/26/17 12:00 97.4 81 21 96/44 99 Mechanical Ventilator 60 01/26/17 12:00 60 01/26/17 11:30 82 21 94/43 98 Mechanical Ventilator 60 01/26/17 11:00 82 2 94/41 99 Mechanical Ventilator 60 01/26/17 11:00 94/41 01/26/17 10:40 80 18 60 01/26/17 10:30 81 20 95/45 99 Mechanical Ventilator 60 01/26/17 10:00 98/46 01/26/17 10:00 81 18 105/50 99 Mechanical Ventilator 60 01/26/17 09:30 79 18 98/48 99 Mechanical Ventilator 60 01/26/17 09:00 79 18 105/49 99 Mechanical Ventilator 60 01/26/17 08:48 101/47 01/26/17 08:35 78 18 60 01/26/17 08:30 80 18 99/47 99 Mechanical Ventilator 60 01/26/17 08:00 79 22 101/47 99 Mechanical Ventilator 60 01/26/17 08:00 98.5 83 18 98/48 99 Mechanical Ventilator 60 01/26/17 08:00 60 01/26/17 08:00 82 01/26/17 07:30 81 18 100/50 99 Mechanical Ventilator 60 01/26/17 07:00 81 22 97/44 99 Mechanical Ventilator 60 01/26/17 06:32 79 19 60 01/26/17 06:30 82 20 91/43 98 Mechanical Ventilator 60 01/26/17 06:00 84 20 94/40 97 Mechanical Ventilator 60 01/26/17 05:30 84 25 93/46 98 Mechanical Ventilator 60 01/26/17 05:20 93 18 60 01/26/17 05:00 93 22 117/51 98 Mechanical Ventilator 60 01/26/17 04:30 85 22 85/35 99 Mechanical Ventilator 60 01/26/17 04:00 94 01/26/17 04:00 98.1 94 26 109/51 99 Mechanical Ventilator 60 01/26/17 04:00 109/51 01/26/17 04:00 60 01/26/17 03:36 92 19 60 01/26/17 03:30 94 26 102/49 99 Mechanical Ventilator 60 01/26/17 03:00 92 22 99/42 96 Mechanical Ventilator 60 01/26/17 03:00 102/49 01/26/17 02:30 95 23 99/49 96 Mechanical Ventilator 60 01/26/17 02:00 96 22 104/47 96 Mechanical Ventilator 60 01/26/17 01:39 97 18 60 01/26/17 01:30 96 22 104/52 96 Mechanical Ventilator 60 01/26/17 01:00 97 22 101/50 95 Mechanical Ventilator 60 01/26/17 00:30 96 22 107/51 95 Mechanical Ventilator 60 01/26/17 00:00 98.1 97 25 106/50 95 Mechanical Ventilator 60 01/26/17 00:00 99 01/25/17 23:30 98 23 103/50 95 Mechanical Ventilator 60 01/25/17 23:17 95 19 60 01/25/17 23:00 98 26 107/51 95 Mechanical Ventilator 60 01/25/17 22:30 97 20 106/51 95 Mechanical Ventilator 60 01/25/17 22:00 99 20 103/51 95 Mechanical Ventilator 60 01/25/17 21:30 98 20 110/60 95 Mechanical Ventilator 60 01/25/17 21:00 99 21 101/81 95 Mechanical Ventilator 60 01/25/17 21:00 95 20 60 01/25/17 20:30 89 21 101/50 95 Mechanical Ventilator 60 01/25/17 20:00 60 01/25/17 20:00 88 01/25/17 20:00 88/54 10/8/17 20:00 97.1 88 22 88/54 95 Mechanical Ventilator 60 01/25/17 19:40 96 19 60 01/25/17 19:00 89 21 93/48 95 Mechanical Ventilator 60 01/25/17 19:00 93/48 01/25/17 18:30 86 18 97/51 94 Mechanical Ventilator 60 01/25/17 18:00 102/46 01/25/17 18:00 89 18 102/46 95 Mechanical Ventilator 60 01/25/17 17:30 90 23 100/48 95 Mechanical Ventilator 60 01/25/17 17:00 102/48 01/25/17 17:00 90 23 102/48 95 Mechanical Ventilator 60 01/25/17 16:59 91 18 60 01/25/17 16:30 91 19 107/46 96 Mechanical Ventilator 60 01/25/17 16:15 92 20 112/47 96 Mechanical Ventilator 60 01/25/17 16:00 60 01/25/17 16:00 90 01/25/17 16:00 96.7 93 19 109/52 96 Mechanical Ventilator 60 01/25/17 16:00 112/47 01/25/17 15:45 93 19 113/50 96 Mechanical Ventilator 60 01/25/17 15:30 92 19 123/52 96 Mechanical Ventilator 60 01/25/17 15:15 87 21 126/54 96 Mechanical Ventilator 60 01/25/17 15:00 82/71 01/25/17 15:00 80 21 82/71 96 Mechanical Ventilator 60 01/25/17 14:45 68 20 103/47 92 Mechanical Ventilator 50 01/25/17 14:34 68 18 60 01/25/17 14:30 72 20 89/45 92 Mechanical Ventilator 50 01/25/17 14:15 72 20 90/55 92 Mechanical Ventilator 50 01/25/17 14:00 72 20 95/44 92 Mechanical Ventilator 50 01/25/17 14:00 95/44 01/25/17 13:45 74 20 96/45 92 Mechanical Ventilator 50 01/25/17 13:30 77 18 96/47 92 Mechanical Ventilator 50 01/25/17 13:15 95.2 78 21 101/43 92 Mechanical Ventilator 50 Intake and Output 01/26/17 01/27/17 19:00 07:00 Intake Total 396.02 ml Output Total 0 ml Balance 396.02 ml IV Total 336.02 ml Other 60 ml Output Urine Total 0 ml # Bowel Movements 1 Laboratory Tests 01/26/17 04:35: White Blood Count 17.8#H, Red Blood Count 2.75L, Hemoglobin 9.0#L, Hematocrit 27.0L, Mean Corpuscular Volume 98, Mean Corpuscular Hemoglobin 32.9H, Mean Corpuscular Hemoglobin Concent 33.4, Red Cell Distribution Width 15.6H, Platelet Count 28#L, Mean Platelet Volume 11.6H, Neutrophils (%) (Auto) , Lymphocytes (%) (Auto) , Monocytes (%) (Auto) , Eosinophils (%) (Auto) , Basophils (%) (Auto) , Differential Total Cells Counted 100, Neutrophils % ( Manual) 87H, Lymphocytes % (Manual) 8L, Monocytes % (Manual) 3, Eosinophils % ( Manual) 2, Basophils % (Manual) 0, Band Neutrophils 0, Platelet Estimate DecreasedL, Platelet Morphology Normal, Hypochromasia 1+, Anisocytosis 1+, Sodium Level 133L, Potassium Level 3.8, Chloride Level 105, Carbon Dioxide Level 17L, Anion Gap 11, Blood Urea Nitrogen 60H, Creatinine 4.2H, Estimat Glomerular Filtration Rate , Glucose Level 140H, Calcium Level 9.1, Phosphorus Level 3.5, Magnesium Level 1.7L, Total Bilirubin 2.6H, Direct Bilirubin 1.3H, Aspartate Amino Transf (AST/SGOT) 40H, Alanine Aminotransferase (ALT/SGPT) 10L, Alkaline Phosphatase 125H, Total Protein 5.3L, Albumin 2.1L, Globulin 3.2, Albumin/Globulin Ratio 0.6L 01/26/17 06:32: Arterial Blood pH 7.290L, Arterial Blood Partial Pressure CO2 35.0, Arterial Blood Partial Pressure O2 97.9, Arterial Blood HCO3 16.7L, Arterial Blood Oxygen Saturation 96.4, Arterial Blood Base Excess -9.0, Bon Test Positive Height (Feet): 5 Height (Inches): 6.00 Weight (Pounds): 269 Objective no change ANDERS MOLINA Jan 26, 2017 13:13
[2017-01-26 13:35] LABS: APPEARANCE,URINE SLIGHTLY CLOUDY; BILIRUBIN, URINE 1+ (NEGATIVE); GLUCOSE, URINE (UA) NEGATIVE (NEGATIVE); KETONES,URINE NEGATIVE (NEGATIVE); LEUKOCYTE ESTERASE ,URINE 3+ (NEGATIVE); NITRITE,URINE NEGATIVE (NEGATIVE); PH,URINE 5 (4.5-8.0); PROTEIN,URINE 3+ (NEGATIVE); UROBILINOGEN,URINE NORMAL MG/DL (0.0-1.0)
[2017-01-26] MEDS: D5NS 1,000 ML IV SCH (13:36)
[2017-01-26 13:57] LABS: COLOR,URINE YELLOW
--- NOTE | 2017-01-26 14:22 | General Progress Note ---
Assessment/Plan Status: stable Assessment/Plan encephalopathy Subjective Neurologic/Psychiatric: Reports: anxiety, depressed, emotional problems Allergies: Coded Allergies: PENICILLINS (Unverified Allergy, Unknown, 03/22/15) Subjective waxing and waning of consciousness. decrease anxiety Objective Last 24 Hour Vital Signs Date Time Temp Pulse Resp B/P (MAP) Pulse Ox O2 Delivery O2 Flow Rate FiO2 01/26/17 14:00 109/43 01/26/17 14:00 80 19 104/48 98 Mechanical Ventilator 60 01/26/17 13:30 78 24 109/43 98 Mechanical Ventilator 60 01/26/17 13:00 80 18 116/48 98 Mechanical Ventilator 60 01/26/17 13:00 116/48 01/26/17 12:34 79 18 60 01/26/17 12:30 80 20 95/44 99 Mechanical Ventilator 60 01/26/17 12:00 80 01/26/17 12:00 96/44 01/26/17 12:00 97.4 81 21 96/44 99 Mechanical Ventilator 60 01/26/17 12:00 60 01/26/17 11:30 82 21 94/43 98 Mechanical Ventilator 60 01/26/17 11:00 82 2 94/41 99 Mechanical Ventilator 60 01/26/17 11:00 94/41 01/26/17 10:40 80 18 60 01/26/17 10:30 81 20 95/45 99 Mechanical Ventilator 60 01/26/17 10:00 98/46 01/26/17 10:00 81 18 105/50 99 Mechanical Ventilator 60 01/26/17 09:30 79 18 98/48 99 Mechanical Ventilator 60 01/26/17 09:00 79 18 105/49 99 Mechanical Ventilator 60 01/26/17 08:48 101/47 01/26/17 08:35 78 18 60 01/26/17 08:30 80 18 99/47 99 Mechanical Ventilator 60 01/26/17 08:00 79 22 101/47 99 Mechanical Ventilator 60 01/26/17 08:00 98.5 83 18 98/48 99 Mechanical Ventilator 60 01/26/17 08:00 60 01/26/17 08:00 82 01/26/17 07:30 81 18 100/50 99 Mechanical Ventilator 60 01/26/17 07:00 81 22 97/44 99 Mechanical Ventilator 60 01/26/17 06:32 79 19 60 01/26/17 06:30 82 20 91/43 98 Mechanical Ventilator 60 01/26/17 06:00 84 20 94/40 97 Mechanical Ventilator 60 01/26/17 05:30 84 25 93/46 98 Mechanical Ventilator 60 01/26/17 05:20 93 18 60 01/26/17 05:00 93 22 117/51 98 Mechanical Ventilator 60 01/26/17 04:30 85 22 85/35 99 Mechanical Ventilator 60 01/26/17 04:00 94 01/26/17 04:00 98.1 94 26 109/51 99 Mechanical Ventilator 60 01/26/17 04:00 109/51 01/26/17 04:00 60 01/26/17 03:36 92 19 60 01/26/17 03:30 94 26 102/49 99 Mechanical Ventilator 60 01/26/17 03:00 92 22 99/42 96 Mechanical Ventilator 60 01/26/17 03:00 102/49 01/26/17 02:30 95 23 99/49 96 Mechanical Ventilator 60 01/26/17 02:00 96 22 104/47 96 Mechanical Ventilator 60 01/26/17 01:39 97 18 60 01/26/17 01:30 96 22 104/52 96 Mechanical Ventilator 60 01/26/17 01:00 97 22 101/50 95 Mechanical Ventilator 60 01/26/17 00:30 96 22 107/51 95 Mechanical Ventilator 60 01/26/17 00:00 98.1 97 25 106/50 95 Mechanical Ventilator 60 01/26/17 00:00 99 01/25/17 23:30 98 23 103/50 95 Mechanical Ventilator 60 01/25/17 23:17 95 19 60 01/25/17 23:00 98 26 107/51 95 Mechanical Ventilator 60 01/25/17 22:30 97 20 106/51 95 Mechanical Ventilator 60 01/25/17 22:00 99 20 103/51 95 Mechanical Ventilator 60 01/25/17 21:30 98 20 110/60 95 Mechanical Ventilator 60 01/25/17 21:00 99 21 101/81 95 Mechanical Ventilator 60 01/25/17 21:00 95 20 60 01/25/17 20:30 89 21 101/50 95 Mechanical Ventilator 60 01/25/17 20:00 60 01/25/17 20:00 88 01/25/17 20:00 88/54 01/25/17 20:00 97.1 88 22 88/54 95 Mechanical Ventilator 60 01/25/17 19:40 96 19 60 01/25/17 19:00 89 21 93/48 95 Mechanical Ventilator 60 01/25/17 19:00 93/48 01/25/17 18:30 86 18 97/51 94 Mechanical Ventilator 60 01/25/17 18:00 102/46 01/25/17 18:00 89 18 102/46 95 Mechanical Ventilator 60 01/25/17 17:30 90 23 100/48 95 Mechanical Ventilator 60 01/25/17 17:00 102/48 01/25/17 17:00 90 23 102/48 95 Mechanical Ventilator 60 01/25/17 16:59 91 18 60 01/25/17 16:30 91 19 107/46 96 Mechanical Ventilator 60 01/25/17 16:15 92 20 112/47 96 Mechanical Ventilator 60 01/25/17 16:00 60 01/25/17 16:00 90 01/25/17 16:00 96.7 93 19 109/52 96 Mechanical Ventilator 60 01/25/17 16:00 112/47 01/25/17 15:45 93 19 113/50 96 Mechanical Ventilator 60 01/25/17 15:30 92 19 123/52 96 Mechanical Ventilator 60 01/25/17 15:15 87 21 126/54 96 Mechanical Ventilator 60 01/25/17 15:00 82/71 01/25/17 15:00 80 21 82/71 96 Mechanical Ventilator 60 01/25/17 14:45 68 20 103/47 92 Mechanical Ventilator 50 01/25/17 14:34 68 18 60 01/25/17 14:30 72 20 89/45 92 Mechanical Ventilator 50 Intake and Output 01/26/17 01/27/17 19:00 07:00 Intake Total 489.02 ml Output Total 20 ml Balance 469.02 ml IV Total 429.02 ml Other 60 ml Output Urine Total 20 ml # Bowel Movements 1 Laboratory Tests 01/26/17 04:35: White Blood Count 17.8#H, Red Blood Count 2.75L, Hemoglobin 9.0#L, Hematocrit 27.0L, Mean Corpuscular Volume 98, Mean Corpuscular Hemoglobin 32.9H, Mean Corpuscular Hemoglobin Concent 33.4, Red Cell Distribution Width 15.6H, Platelet Count 28#L, Mean Platelet Volume 11.6H, Neutrophils (%) (Auto) , Lymphocytes (%) (Auto) , Monocytes (%) (Auto) , Eosinophils (%) (Auto) , Basophils (%) (Auto) , Differential Total Cells Counted 100, Neutrophils % ( Manual) 87H, Lymphocytes % (Manual) 8L, Monocytes % (Manual) 3, Eosinophils % ( Manual) 2, Basophils % (Manual) 0, Band Neutrophils 0, Platelet Estimate DecreasedL, Platelet Morphology Normal, Hypochromasia 1+, Anisocytosis 1+, Sodium Level 133L, Potassium Level 3.8, Chloride Level 105, Carbon Dioxide Level 17L, Anion Gap 11, Blood Urea Nitrogen 60H, Creatinine 4.2H, Estimat Glomerular Filtration Rate , Glucose Level 140H, Calcium Level 9.1, Phosphorus Level 3.5, Magnesium Level 1.7L, Total Bilirubin 2.6H, Direct Bilirubin 1.3H, Aspartate Amino Transf (AST/SGOT) 40H, Alanine Aminotransferase (ALT/SGPT) 10L, Alkaline Phosphatase 125H, Total Protein 5.3L, Albumin 2.1L, Globulin 3.2, Albumin/Globulin Ratio 0.6L 01/26/17 06:32: Arterial Blood pH 7.290L, Arterial Blood Partial Pressure CO2 35.0, Arterial Blood Partial Pressure O2 97.9, Arterial Blood HCO3 16.7L, Arterial Blood Oxygen Saturation 96.4, Arterial Blood Base Excess -9.0, Bon Test Positive 01/26/17 13:00: Urine Color Yellow, Urine Appearance Slightly cloudy, Urine pH 5, Urine Specific [place] 1.015, Urine Protein 3+H, Urine Glucose (UA) Negative, Urine Ketones Negative, Urine Occult Blood 5+H, Urine Nitrite Negative, Urine Bilirubin 1+H, Urine Ictotest Negative, Urine Urobilinogen Normal, Urine Leukocyte Esterase 3+H, Urine RBC 5-10H, Urine WBC 10-15H, Urine Squamous Epithelial Cells Few, Urine Bacteria Few, Urine Yeast ModerateH Height (Feet): 5 Height (Inches): 6.00 Weight (Pounds): 269 General Appearance: no apparent distress, alert, confused, morbidly obese Neurologic: alert, disoriented, depressed affect Oj Medel M.D. Jan 26, 2017 14:22
--- NOTE | 2017-01-26 16:26 | Cardiac Electrophysiology PN ---
Assessment/Plan Assessment/Plan 1. Congestive heart failure and very high BNP. Ejection fraction of 60% to 65 % with diastolic dysfunction. EKG showed normal sinus rhythm with low voltage QRS. 2. Shock on Dopamine and Midodrine and Abx 3. Urinary tract infection. 4. Diabetes. 5. Hyperlipidemia. 6. Cirrhosis 7. Anemia with hemoglobin of 8. 8. Hypernatremia with NA 160 and renal failure. Down to 133 9. DNR and DNI DW RN Subjective Subjective In ICU on vent on 2 mcg of Dopamine. In SR was ernie and hypotensive and started in low dose dopamine . DNR and DNI Objective Last 24 Hour Vital Signs Date Time Temp Pulse Resp B/P (MAP) Pulse Ox O2 Delivery O2 Flow Rate FiO2 01/26/17 16:00 60 01/26/17 16:00 97.6 83 18 103/45 97 Mechanical Ventilator 60 01/26/17 16:00 84 01/26/17 15:30 76 18 101/42 98 Mechanical Ventilator 60 01/26/17 15:00 78 32 103/47 98 Mechanical Ventilator 60 01/26/17 14:33 80 18 60 01/26/17 14:00 109/43 01/26/17 14:00 80 19 104/48 98 Mechanical Ventilator 60 01/26/17 13:30 78 24 109/43 98 Mechanical Ventilator 60 01/26/17 13:00 80 18 116/48 98 Mechanical Ventilator 60 01/26/17 13:00 116/48 01/26/17 12:34 79 18 60 01/26/17 12:30 80 20 95/44 99 Mechanical Ventilator 60 01/26/17 12:00 80 01/26/17 12:00 96/44 01/26/17 12:00 97.4 81 21 96/44 99 Mechanical Ventilator 60 01/26/17 12:00 60 01/26/17 11:30 82 21 94/43 98 Mechanical Ventilator 60 01/26/17 11:00 82 2 94/41 99 Mechanical Ventilator 60 01/26/17 11:00 94/41 01/26/17 10:40 80 18 60 01/26/17 10:30 81 20 95/45 99 Mechanical Ventilator 60 01/26/17 10:00 98/46 01/26/17 10:00 81 18 105/50 99 Mechanical Ventilator 60 01/26/17 09:30 79 18 98/48 99 Mechanical Ventilator 60 10/9/17 09:00 79 18 105/49 99 Mechanical Ventilator 60 01/26/17 08:48 101/47 01/26/17 08:35 78 18 60 01/26/17 08:30 80 18 99/47 99 Mechanical Ventilator 60 01/26/17 08:00 79 22 101/47 99 Mechanical Ventilator 60 01/26/17 08:00 98.5 83 18 98/48 99 Mechanical Ventilator 60 01/26/17 08:00 60 01/26/17 08:00 82 01/26/17 07:30 81 18 100/50 99 Mechanical Ventilator 60 01/26/17 07:00 81 22 97/44 99 Mechanical Ventilator 60 01/26/17 06:32 79 19 60 01/26/17 06:30 82 20 91/43 98 Mechanical Ventilator 60 01/26/17 06:00 84 20 94/40 97 Mechanical Ventilator 60 01/26/17 05:30 84 25 93/46 98 Mechanical Ventilator 60 01/26/17 05:20 93 18 60 01/26/17 05:00 93 22 117/51 98 Mechanical Ventilator 60 01/26/17 04:30 85 22 85/35 99 Mechanical Ventilator 60 01/26/17 04:00 94 01/26/17 04:00 98.1 94 26 109/51 99 Mechanical Ventilator 60 01/26/17 04:00 109/51 01/26/17 04:00 60 01/26/17 03:36 92 19 60 01/26/17 03:30 94 26 102/49 99 Mechanical Ventilator 60 01/26/17 03:00 92 22 99/42 96 Mechanical Ventilator 60 01/26/17 03:00 102/49 01/26/17 02:30 95 23 99/49 96 Mechanical Ventilator 60 01/26/17 02:00 96 22 104/47 96 Mechanical Ventilator 60 01/26/17 01:39 97 18 60 01/26/17 01:30 96 22 104/52 96 Mechanical Ventilator 60 01/26/17 01:00 97 22 101/50 95 Mechanical Ventilator 60 01/26/17 00:30 96 22 107/51 95 Mechanical Ventilator 60 01/26/17 00:00 98.1 97 25 106/50 95 Mechanical Ventilator 60 01/26/17 00:00 99 01/25/17 23:30 98 23 103/50 95 Mechanical Ventilator 60 01/25/17 23:17 95 19 60 01/25/17 23:00 98 26 107/51 95 Mechanical Ventilator 60 01/25/17 22:30 97 20 106/51 95 Mechanical Ventilator 60 01/25/17 22:00 99 20 103/51 95 Mechanical Ventilator 60 01/25/17 21:30 98 20 110/60 95 Mechanical Ventilator 60 01/25/17 21:00 99 21 101/81 95 Mechanical Ventilator 60 01/25/17 21:00 95 20 60 01/25/17 20:30 89 21 101/50 95 Mechanical Ventilator 60 01/25/17 20:00 60 01/25/17 20:00 88 01/25/17 20:00 88/54 01/25/17 20:00 97.1 88 22 88/54 95 Mechanical Ventilator 60 01/25/17 19:40 96 19 60 01/25/17 19:00 89 21 93/48 95 Mechanical Ventilator 60 01/25/17 19:00 93/48 01/25/17 18:30 86 18 97/51 94 Mechanical Ventilator 60 01/25/17 18:00 102/46 01/25/17 18:00 89 18 102/46 95 Mechanical Ventilator 60 01/25/17 17:30 90 23 100/48 95 Mechanical Ventilator 60 01/25/17 17:00 102/48 01/25/17 17:00 90 23 102/48 95 Mechanical Ventilator 60 01/25/17 16:59 91 18 60 01/25/17 16:30 91 19 107/46 96 Mechanical Ventilator 60 Intake and Output 01/26/17 01/27/17 19:00 07:00 Intake Total 489.02 ml Output Total 20 ml Balance 469.02 ml IV Total 429.02 ml Other 60 ml Output Urine Total 20 ml # Bowel Movements 2 Laboratory Tests Test 01/26/17 04:35 01/26/17 06:32 01/26/17 13:00 White Blood Count 17.8 K/UL (4.8-10.8) #H Red Blood Count 2.75 M/UL (4.20-5.40) L Hemoglobin 9.0 G/DL (12.0-16.0) #L Hematocrit 27.0 % (37.0-47.0) L Mean Corpuscular Volume 98 FL (80-99) Mean Corpuscular Hemoglobin 32.9 PG (27.0-31.0) H Mean Corpuscular Hemoglobin Concent 33.4 G/DL (32.0-36.0) Red Cell Distribution Width 15.6 % (11.6-14.8) H Platelet Count 28 K/UL (150-450) #L Mean Platelet Volume 11.6 FL (6.5-10.1) H Neutrophils (%) (Auto) % (45.0-75.0) Lymphocytes (%) (Auto) % (20.0-45.0) Monocytes (%) (Auto) % (1.0-10.0) Eosinophils (%) (Auto) % (0.0-3.0) Basophils (%) (Auto) % (0.0-2.0) Differential Total Cells Counted 100 Neutrophils % (Manual) 87 % (45-75) H Lymphocytes % (Manual) 8 % (20-45) L Monocytes % (Manual) 3 % (1-10) Eosinophils % (Manual) 2 % (0-3) Basophils % (Manual) 0 % (0-2) Band Neutrophils 0 % (0-8) Platelet Estimate Decreased L Platelet Morphology Normal Hypochromasia 1+ Anisocytosis 1+ Sodium Level 133 MMOL/L (136-145) L Potassium Level 3.8 MMOL/L (3.5-5.1) Chloride Level 105 MMOL/L (98-107) Carbon Dioxide Level 17 MMOL/L (21-32) L Anion Gap 11 (5-15) Blood Urea Nitrogen 60 mg/dL (7-18) H Creatinine 4.2 MG/DL (0.55-1.30) H Estimat Glomerular Filtration Rate mL/min (>60) Glucose Level 140 MG/DL (74-106) H Calcium Level 9.1 MG/DL (8.5-10.1) Phosphorus Level 3.5 MG/DL (2.5-4.9) Magnesium Level 1.7 MG/DL (1.8-2.4) L Total Bilirubin 2.6 MG/DL (0.2-1.0) H Direct Bilirubin 1.3 MG/DL (0.0-0.3) H Aspartate Amino Transf (AST/SGOT) 40 U/L (15-37) H Alanine Aminotransferase (ALT/SGPT) 10 U/L (12-78) L Alkaline Phosphatase 125 U/L (46-116) H Total Protein 5.3 G/DL (6.4-8.2) L Albumin 2.1 G/DL (3.4-5.0) L Globulin 3.2 g/dL Albumin/Globulin Ratio 0.6 (1.0-2.7) L Arterial Blood pH 7.290 (7.350-7.450) Arterial Blood Partial Pressure CO2 35.0 mmHg (35.0-45.0) Arterial Blood Partial Pressure O2 97.9 mmHg (75.0-100.0) Arterial Blood HCO3 16.7 mmol/L (22.0-26.0) L Arterial Blood Oxygen Saturation 96.4 % (92.0-98.0) Arterial Blood Base Excess -9.0 Bon Test Positive Urine Color Yellow Urine Appearance Slightly cloudy Urine pH 5 (4.5-8.0) Urine Specific [place] 1.015 (1.005-1.035) Urine Protein 3+ (NEGATIVE) H Urine Glucose (UA) Negative (NEGATIVE) Urine Ketones Negative (NEGATIVE) Urine Occult Blood 5+ (NEGATIVE) H Urine Nitrite Negative (NEGATIVE) Urine Bilirubin 1+ (NEGATIVE) H Urine Ictotest Negative Urine Urobilinogen Normal MG/DL (0.0-1.0) Urine Leukocyte Esterase 3+ (NEGATIVE) H Urine RBC 5-10 /HPF (0 - 2) H Urine WBC 10-15 /HPF (0 - 2) H Urine Squamous Epithelial Cells Few /LPF (NONE/OCC) Urine Bacteria Few /HPF (NONE) Urine Yeast Moderate /HPF (NONE) H Microbiology Date/Time Source Procedure Growth Status 01/24/17 10:15 Blood Blood Culture - Preliminary NO GROWTH AFTER 24 HOURS Resulted 01/24/17 10:00 Blood Blood Culture - Preliminary NO GROWTH AFTER 24 HOURS Resulted Objective HEAD AND NECK: Shows no JVD.Orally intubated LUNGS: Coarse rhonchi CARDIOVASCULAR: Regular S1 and S2 with no gallop or murmur. ABDOMEN: Soft and nontender and obese. EXTREMITIES: 2+ pitting edema. DEAN SHAW Jan 26, 2017 16:26
[2017-01-26] MEDS: Midodrine 10mg tab ORAL SCH (17:48)
[2017-01-26] MEDS: Dyna-Hex 2% Top Sol 2oz TOPIC SCH (19:40)
--- NOTE | 2017-01-26 21:32 | General Progress Note ---
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 - AMS Recommendations - Lactulose & Xifaxan - follow labs - Tube feeding Subjective Allergies: Coded Allergies: PENICILLINS (Unverified Allergy, Unknown, 03/22/15) Subjective intubated seen in ICU unresponsive Objective Last 24 Hour Vital Signs Date Time Temp Pulse Resp B/P (MAP) Pulse Ox O2 Delivery O2 Flow Rate FiO2 01/26/17 20:31 80 18 60 01/26/17 20:00 79 18 107/46 100 Mechanical Ventilator 60 01/26/17 20:00 40 01/26/17 19:30 81 18 40 01/26/17 19:30 69 18 107/45 100 Mechanical Ventilator 60 01/26/17 19:00 97.8 67 18 103/48 100 Mechanical Ventilator 60 01/26/17 18:30 69 18 99/47 100 Mechanical Ventilator 60 01/26/17 18:00 72 18 90/56 100 Mechanical Ventilator 60 01/26/17 17:34 80 18 100 01/26/17 17:30 78 18 100/42 99 Mechanical Ventilator 60 01/26/17 17:00 75 18 98/50 100 Mechanical Ventilator 60 01/26/17 16:46 73 18 60 01/26/17 16:30 72 18 105/42 98 Mechanical Ventilator 60 01/26/17 16:00 60 01/26/17 16:00 97.6 83 18 103/45 97 Mechanical Ventilator 60 01/26/17 16:00 84 01/26/17 15:30 76 18 101/42 98 Mechanical Ventilator 60 01/26/17 15:00 78 32 103/47 98 Mechanical Ventilator 60 01/26/17 14:33 80 18 60 01/26/17 14:00 109/43 01/26/17 14:00 80 19 104/48 98 Mechanical Ventilator 60 01/26/17 13:30 78 24 109/43 98 Mechanical Ventilator 60 01/26/17 13:00 80 18 116/48 98 Mechanical Ventilator 60 01/26/17 13:00 116/48 01/26/17 12:34 79 18 60 01/26/17 12:30 80 20 95/44 99 Mechanical Ventilator 60 01/26/17 12:00 80 10/9/17 12:00 96/44 01/26/17 12:00 97.4 81 21 96/44 99 Mechanical Ventilator 60 01/26/17 12:00 60 01/26/17 11:30 82 21 94/43 98 Mechanical Ventilator 60 01/26/17 11:00 82 2 94/41 99 Mechanical Ventilator 60 01/26/17 11:00 94/41 01/26/17 10:40 80 18 60 01/26/17 10:30 81 20 95/45 99 Mechanical Ventilator 60 01/26/17 10:00 98/46 01/26/17 10:00 81 18 105/50 99 Mechanical Ventilator 60 01/26/17 09:30 79 18 98/48 99 Mechanical Ventilator 60 01/26/17 09:00 79 18 105/49 99 Mechanical Ventilator 60 01/26/17 08:48 101/47 01/26/17 08:35 78 18 60 01/26/17 08:30 80 18 99/47 99 Mechanical Ventilator 60 01/26/17 08:00 79 22 101/47 99 Mechanical Ventilator 60 01/26/17 08:00 98.5 83 18 98/48 99 Mechanical Ventilator 60 01/26/17 08:00 60 01/26/17 08:00 82 01/26/17 07:30 81 18 100/50 99 Mechanical Ventilator 60 01/26/17 07:00 81 22 97/44 99 Mechanical Ventilator 60 01/26/17 06:32 79 19 60 01/26/17 06:30 82 20 91/43 98 Mechanical Ventilator 60 01/26/17 06:00 84 20 94/40 97 Mechanical Ventilator 60 01/26/17 05:30 84 25 93/46 98 Mechanical Ventilator 60 01/26/17 05:20 93 18 60 01/26/17 05:00 93 22 117/51 98 Mechanical Ventilator 60 01/26/17 04:30 85 22 85/35 99 Mechanical Ventilator 60 01/26/17 04:00 94 01/26/17 04:00 98.1 94 26 109/51 99 Mechanical Ventilator 60 01/26/17 04:00 109/51 01/26/17 04:00 60 01/26/17 03:36 92 19 60 01/26/17 03:30 94 26 102/49 99 Mechanical Ventilator 60 01/26/17 03:00 92 22 99/42 96 Mechanical Ventilator 60 01/26/17 03:00 102/49 01/26/17 02:30 95 23 99/49 96 Mechanical Ventilator 60 01/26/17 02:00 96 22 104/47 96 Mechanical Ventilator 60 01/26/17 01:39 97 18 60 01/26/17 01:30 96 22 104/52 96 Mechanical Ventilator 60 01/26/17 01:00 97 22 101/50 95 Mechanical Ventilator 60 01/26/17 00:30 96 22 107/51 95 Mechanical Ventilator 60 01/26/17 00:00 98.1 97 25 106/50 95 Mechanical Ventilator 60 01/26/17 00:00 99 01/25/17 23:30 98 23 103/50 95 Mechanical Ventilator 60 01/25/17 23:17 95 19 60 01/25/17 23:00 98 26 107/51 95 Mechanical Ventilator 60 01/25/17 22:30 97 20 106/51 95 Mechanical Ventilator 60 01/25/17 22:00 99 20 103/51 95 Mechanical Ventilator 60 Intake and Output 01/26/17 01/27/17 19:00 07:00 Intake Total 909.042 ml 168.044 ml Output Total 40 ml 5 ml Balance 869.042 ml 163.044 ml IV Total 849.042 ml 168.044 ml Other 60 ml Output Urine Total 40 ml 5 ml # Bowel Movements 2 Laboratory Tests 01/26/17 04:35: White Blood Count 17.8#H, Red Blood Count 2.75L, Hemoglobin 9.0#L, Hematocrit 27.0L, Mean Corpuscular Volume 98, Mean Corpuscular Hemoglobin 32.9H, Mean Corpuscular Hemoglobin Concent 33.4, Red Cell Distribution Width 15.6H, Platelet Count 28#L, Mean Platelet Volume 11.6H, Neutrophils (%) (Auto) , Lymphocytes (%) (Auto) , Monocytes (%) (Auto) , Eosinophils (%) (Auto) , Basophils (%) (Auto) , Differential Total Cells Counted 100, Neutrophils % ( Manual) 87H, Lymphocytes % (Manual) 8L, Monocytes % (Manual) 3, Eosinophils % ( Manual) 2, Basophils % (Manual) 0, Band Neutrophils 0, Platelet Estimate DecreasedL, Platelet Morphology Normal, Hypochromasia 1+, Anisocytosis 1+, Sodium Level 133L, Potassium Level 3.8, Chloride Level 105, Carbon Dioxide Level 17L, Anion Gap 11, Blood Urea Nitrogen 60H, Creatinine 4.2H, Estimat Glomerular Filtration Rate , Glucose Level 140H, Calcium Level 9.1, Phosphorus Level 3.5, Magnesium Level 1.7L, Total Bilirubin 2.6H, Direct Bilirubin 1.3H, Aspartate Amino Transf (AST/SGOT) 40H, Alanine Aminotransferase (ALT/SGPT) 10L, Alkaline Phosphatase 125H, Total Protein 5.3L, Albumin 2.1L, Globulin 3.2, Albumin/Globulin Ratio 0.6L 01/26/17 06:32: Arterial Blood pH 7.290L, Arterial Blood Partial Pressure CO2 35.0, Arterial Blood Partial Pressure O2 97.9, Arterial Blood HCO3 16.7L, Arterial Blood Oxygen Saturation 96.4, Arterial Blood Base Excess -9.0, Bon Test Positive 01/26/17 13:00: Urine Color Yellow, Urine Appearance Slightly cloudy, Urine pH 5, Urine Specific [place] 1.015, Urine Protein 3+H, Urine Glucose (UA) Negative, Urine Ketones Negative, Urine Occult Blood 5+H, Urine Nitrite Negative, Urine Bilirubin 1+H, Urine Ictotest Negative, Urine Urobilinogen Normal, Urine Leukocyte Esterase 3+H, Urine RBC 5-10H, Urine WBC 10-15H, Urine Squamous Epithelial Cells Few, Urine Bacteria Few, Urine Yeast ModerateH Height (Feet): 5 Height (Inches): 6.00 Weight (Pounds): 269 Objective Obese WW NCAT supple CTA RRR soft ND NT (+) edema confused KIERSTEN DAVIES Jan 26, 2017 21:32
--- NOTE | 2017-01-26 22:54 | General Progress Note ---
Assessment/Plan Assessment/Plan ASSESSMENT AND RECOMMENDATIONS 1.Thrombocytopenia 2/2 sepsis --> give plts if below 10k or if below 20k and febrile 2. Coagulopathy, possibly secondary to underlying liver disease. 3. Thrombocytopenia secondary to underlying splenomegaly. 4. Anemia 2/2 chronic disease --> s/p transfusion 5. Leukocytosis secondary to underlying infection 6. Diabetes mellitus. Continue to closely monitor. 7. Altered mental status 8. Bradycardia Subjective Date patient seen: Jan 25, 2017 ROS Limited/Unobtainable: Yes Allergies: Coded Allergies: PENICILLINS (Unverified Allergy, Unknown, 03/22/15) Objective Last 24 Hour Vital Signs Date Time Temp Pulse Resp B/P (MAP) Pulse Ox O2 Delivery O2 Flow Rate FiO2 01/26/17 20:31 80 18 60 01/26/17 20:00 79 18 107/46 100 Mechanical Ventilator 60 01/26/17 20:00 79 01/26/17 20:00 40 01/26/17 19:30 81 18 40 01/26/17 19:30 69 18 107/45 100 Mechanical Ventilator 60 01/26/17 19:00 97.8 67 18 103/48 100 Mechanical Ventilator 60 01/26/17 18:30 69 18 99/47 100 Mechanical Ventilator 60 01/26/17 18:00 72 18 90/56 100 Mechanical Ventilator 60 01/26/17 17:34 80 18 100 01/26/17 17:30 78 18 100/42 99 Mechanical Ventilator 60 01/26/17 17:00 75 18 98/50 100 Mechanical Ventilator 60 01/26/17 16:46 73 18 60 01/26/17 16:30 72 18 105/42 98 Mechanical Ventilator 60 01/26/17 16:00 60 01/26/17 16:00 97.6 83 18 103/45 97 Mechanical Ventilator 60 01/26/17 16:00 84 01/26/17 15:30 76 18 101/42 98 Mechanical Ventilator 60 01/26/17 15:00 78 32 103/47 98 Mechanical Ventilator 60 01/26/17 14:33 80 18 60 01/26/17 14:00 109/43 01/26/17 14:00 80 19 104/48 98 Mechanical Ventilator 60 01/26/17 13:30 78 24 109/43 98 Mechanical Ventilator 60 01/26/17 13:00 80 18 116/48 98 Mechanical Ventilator 60 01/26/17 13:00 116/48 01/26/17 12:34 79 18 60 01/26/17 12:30 80 20 95/44 99 Mechanical Ventilator 60 01/26/17 12:00 80 01/26/17 12:00 96/44 01/26/17 12:00 97.4 81 21 96/44 99 Mechanical Ventilator 60 01/26/17 12:00 60 01/26/17 11:30 82 21 94/43 98 Mechanical Ventilator 60 01/26/17 11:00 82 2 94/41 99 Mechanical Ventilator 60 01/26/17 11:00 94/41 01/26/17 10:40 80 18 60 01/26/17 10:30 81 20 95/45 99 Mechanical Ventilator 60 01/26/17 10:00 98/46 01/26/17 10:00 81 18 105/50 99 Mechanical Ventilator 60 01/26/17 09:30 79 18 98/48 99 Mechanical Ventilator 60 01/26/17 09:00 79 18 105/49 99 Mechanical Ventilator 60 01/26/17 08:48 101/47 01/26/17 08:35 78 18 60 01/26/17 08:30 80 18 99/47 99 Mechanical Ventilator 60 01/26/17 08:00 79 22 101/47 99 Mechanical Ventilator 60 01/26/17 08:00 98.5 83 18 98/48 99 Mechanical Ventilator 60 01/26/17 08:00 60 01/26/17 08:00 82 01/26/17 07:30 81 18 100/50 99 Mechanical Ventilator 60 01/26/17 07:00 81 22 97/44 99 Mechanical Ventilator 60 01/26/17 06:32 79 19 60 01/26/17 06:30 82 20 91/43 98 Mechanical Ventilator 60 01/26/17 06:00 84 20 94/40 97 Mechanical Ventilator 60 01/26/17 05:30 84 25 93/46 98 Mechanical Ventilator 60 01/26/17 05:20 93 18 60 01/26/17 05:00 93 22 117/51 98 Mechanical Ventilator 60 01/26/17 04:30 85 22 85/35 99 Mechanical Ventilator 60 01/26/17 04:00 94 01/26/17 04:00 98.1 94 26 109/51 99 Mechanical Ventilator 60 01/26/17 04:00 109/51 01/26/17 04:00 60 01/26/17 03:36 92 19 60 01/26/17 03:30 94 26 102/49 99 Mechanical Ventilator 60 01/26/17 03:00 92 22 99/42 96 Mechanical Ventilator 60 01/26/17 03:00 102/49 01/26/17 02:30 95 23 99/49 96 Mechanical Ventilator 60 01/26/17 02:00 96 22 104/47 96 Mechanical Ventilator 60 01/26/17 01:39 97 18 60 01/26/17 01:30 96 22 104/52 96 Mechanical Ventilator 60 01/26/17 01:00 97 22 101/50 95 Mechanical Ventilator 60 01/26/17 00:30 96 22 107/51 95 Mechanical Ventilator 60 01/26/17 00:00 98.1 97 25 106/50 95 Mechanical Ventilator 60 01/26/17 00:00 99 01/25/17 23:30 98 23 103/50 95 Mechanical Ventilator 60 01/25/17 23:17 95 19 60 01/25/17 23:00 98 26 107/51 95 Mechanical Ventilator 60 Intake and Output 01/26/17 01/27/17 19:00 07:00 Intake Total 909.042 ml 252.066 ml Output Total 40 ml 5 ml Balance 869.042 ml 247.066 ml IV Total 849.042 ml 252.066 ml Other 60 ml Output Urine Total 40 ml 5 ml # Bowel Movements 2 Laboratory Tests 01/26/17 04:35: White Blood Count 17.8#H, Red Blood Count 2.75L, Hemoglobin 9.0#L, Hematocrit 27.0L, Mean Corpuscular Volume 98, Mean Corpuscular Hemoglobin 32.9H, Mean Corpuscular Hemoglobin Concent 33.4, Red Cell Distribution Width 15.6H, Platelet Count 28#L, Mean Platelet Volume 11.6H, Neutrophils (%) (Auto) , Lymphocytes (%) (Auto) , Monocytes (%) (Auto) , Eosinophils (%) (Auto) , Basophils (%) (Auto) , Differential Total Cells Counted 100, Neutrophils % ( Manual) 87H, Lymphocytes % (Manual) 8L, Monocytes % (Manual) 3, Eosinophils % ( Manual) 2, Basophils % (Manual) 0, Band Neutrophils 0, Platelet Estimate DecreasedL, Platelet Morphology Normal, Hypochromasia 1+, Anisocytosis 1+, Sodium Level 133L, Potassium Level 3.8, Chloride Level 105, Carbon Dioxide Level 17L, Anion Gap 11, Blood Urea Nitrogen 60H, Creatinine 4.2H, Estimat Glomerular Filtration Rate , Glucose Level 140H, Calcium Level 9.1, Phosphorus Level 3.5, Magnesium Level 1.7L, Total Bilirubin 2.6H, Direct Bilirubin 1.3H, Aspartate Amino Transf (AST/SGOT) 40H, Alanine Aminotransferase (ALT/SGPT) 10L, Alkaline Phosphatase 125H, Total Protein 5.3L, Albumin 2.1L, Globulin 3.2, Albumin/Globulin Ratio 0.6L 01/26/17 06:32: Arterial Blood pH 7.290L, Arterial Blood Partial Pressure CO2 35.0, Arterial Blood Partial Pressure O2 97.9, Arterial Blood HCO3 16.7L, Arterial Blood Oxygen Saturation 96.4, Arterial Blood Base Excess -9.0, Bon Test Positive 01/26/17 13:00: Urine Color Yellow, Urine Appearance Slightly cloudy, Urine pH 5, Urine Specific [place] 1.015, Urine Protein 3+H, Urine Glucose (UA) Negative, Urine Ketones Negative, Urine Occult Blood 5+H, Urine Nitrite Negative, Urine Bilirubin 1+H, Urine Ictotest Negative, Urine Urobilinogen Normal, Urine Leukocyte Esterase 3+H, Urine RBC 5-10H, Urine WBC 10-15H, Urine Squamous Epithelial Cells Few, Urine Bacteria Few, Urine Yeast ModerateH Height (Feet): 5 Height (Inches): 6.00 Weight (Pounds): 269 General Appearance: no apparent distress Neck: normal alignment Cardiovascular: regular rhythm Abdomen: no organomegaly, no mass Extremities: normal range of motion Skin: normal pigmentation Chriss Pat Jan 26, 2017 22:54
--- NOTE | 2017-01-26 23:06 | General Progress Note ---
Assessment/Plan Assessment/Plan ASSESSMENT AND RECOMMENDATIONS 1.Thrombocytopenia 2/2 sepsis --> give plts if below 10k or if below 20k and febrile 2. Coagulopathy secondary to underlying liver disease. 3. Thrombocytopenia secondary to underlying splenomegaly. 4. Anemia 2/2 chronic disease --> s/p transfusion --> Watch HH, transfuse if below 8 5. Leukocytosis secondary to underlying infection 6. Diabetes mellitus. Continue to closely monitor. 7. Altered mental status 8. Bradycardia Subjective Allergies: Coded Allergies: PENICILLINS (Unverified Allergy, Unknown, 03/22/15) All Systems: reviewed and negative except above Subjective intubated, hypotensive Objective Last 24 Hour Vital Signs Date Time Temp Pulse Resp B/P (MAP) Pulse Ox O2 Delivery O2 Flow Rate FiO2 01/26/17 20:31 80 18 60 01/26/17 20:00 79 18 107/46 100 Mechanical Ventilator 60 01/26/17 20:00 79 01/26/17 20:00 40 01/26/17 19:30 81 18 40 01/26/17 19:30 69 18 107/45 100 Mechanical Ventilator 60 01/26/17 19:00 97.8 67 18 103/48 100 Mechanical Ventilator 60 01/26/17 18:30 69 18 99/47 100 Mechanical Ventilator 60 01/26/17 18:00 72 18 90/56 100 Mechanical Ventilator 60 01/26/17 17:34 80 18 100 01/26/17 17:30 78 18 100/42 99 Mechanical Ventilator 60 01/26/17 17:00 75 18 98/50 100 Mechanical Ventilator 60 01/26/17 16:46 73 18 60 01/26/17 16:30 72 18 105/42 98 Mechanical Ventilator 60 01/26/17 16:00 60 01/26/17 16:00 97.6 83 18 103/45 97 Mechanical Ventilator 60 01/26/17 16:00 84 01/26/17 15:30 76 18 101/42 98 Mechanical Ventilator 60 01/26/17 15:00 78 32 103/47 98 Mechanical Ventilator 60 01/26/17 14:33 80 18 60 01/26/17 14:00 109/43 01/26/17 14:00 80 19 104/48 98 Mechanical Ventilator 60 01/26/17 13:30 78 24 109/43 98 Mechanical Ventilator 60 01/26/17 13:00 80 18 116/48 98 Mechanical Ventilator 60 01/26/17 13:00 116/48 01/26/17 12:34 79 18 60 01/26/17 12:30 80 20 95/44 99 Mechanical Ventilator 60 01/26/17 12:00 80 01/26/17 12:00 96/44 01/26/17 12:00 97.4 81 21 96/44 99 Mechanical Ventilator 60 01/26/17 12:00 60 01/26/17 11:30 82 21 94/43 98 Mechanical Ventilator 60 01/26/17 11:00 82 2 94/41 99 Mechanical Ventilator 60 01/26/17 11:00 94/41 01/26/17 10:40 80 18 60 01/26/17 10:30 81 20 95/45 99 Mechanical Ventilator 60 01/26/17 10:00 98/46 01/26/17 10:00 81 18 105/50 99 Mechanical Ventilator 60 01/26/17 09:30 79 18 98/48 99 Mechanical Ventilator 60 01/26/17 09:00 79 18 105/49 99 Mechanical Ventilator 60 01/26/17 08:48 101/47 01/26/17 08:35 78 18 60 01/26/17 08:30 80 18 99/47 99 Mechanical Ventilator 60 01/26/17 08:00 79 22 101/47 99 Mechanical Ventilator 60 01/26/17 08:00 98.5 83 18 98/48 99 Mechanical Ventilator 60 01/26/17 08:00 60 01/26/17 08:00 82 01/26/17 07:30 81 18 100/50 99 Mechanical Ventilator 60 01/26/17 07:00 81 22 97/44 99 Mechanical Ventilator 60 01/26/17 06:32 79 19 60 01/26/17 06:30 82 20 91/43 98 Mechanical Ventilator 60 01/26/17 06:00 84 20 94/40 97 Mechanical Ventilator 60 01/26/17 05:30 84 25 93/46 98 Mechanical Ventilator 60 01/26/17 05:20 93 18 60 01/26/17 05:00 93 22 117/51 98 Mechanical Ventilator 60 01/26/17 04:30 85 22 85/35 99 Mechanical Ventilator 60 01/26/17 04:00 94 01/26/17 04:00 98.1 94 26 109/51 99 Mechanical Ventilator 60 01/26/17 04:00 109/51 01/26/17 04:00 60 01/26/17 03:36 92 19 60 01/26/17 03:30 94 26 102/49 99 Mechanical Ventilator 60 01/26/17 03:00 92 22 99/42 96 Mechanical Ventilator 60 01/26/17 03:00 102/49 01/26/17 02:30 95 23 99/49 96 Mechanical Ventilator 60 01/26/17 02:00 96 22 104/47 96 Mechanical Ventilator 60 01/26/17 01:39 97 18 60 01/26/17 01:30 96 22 104/52 96 Mechanical Ventilator 60 01/26/17 01:00 97 22 101/50 95 Mechanical Ventilator 60 01/26/17 00:30 96 22 107/51 95 Mechanical Ventilator 60 01/26/17 00:00 98.1 97 25 106/50 95 Mechanical Ventilator 60 01/26/17 00:00 99 01/25/17 23:30 98 23 103/50 95 Mechanical Ventilator 60 01/25/17 23:17 95 19 60 Intake and Output 01/26/17 01/27/17 19:00 07:00 Intake Total 909.042 ml 252.066 ml Output Total 40 ml 5 ml Balance 869.042 ml 247.066 ml IV Total 849.042 ml 252.066 ml Other 60 ml Output Urine Total 40 ml 5 ml # Bowel Movements 2 Laboratory Tests 01/26/17 04:35: White Blood Count 17.8#H, Red Blood Count 2.75L, Hemoglobin 9.0#L, Hematocrit 27.0L, Mean Corpuscular Volume 98, Mean Corpuscular Hemoglobin 32.9H, Mean Corpuscular Hemoglobin Concent 33.4, Red Cell Distribution Width 15.6H, Platelet Count 28#L, Mean Platelet Volume 11.6H, Neutrophils (%) (Auto) , Lymphocytes (%) (Auto) , Monocytes (%) (Auto) , Eosinophils (%) (Auto) , Basophils (%) (Auto) , Differential Total Cells Counted 100, Neutrophils % ( Manual) 87H, Lymphocytes % (Manual) 8L, Monocytes % (Manual) 3, Eosinophils % ( Manual) 2, Basophils % (Manual) 0, Band Neutrophils 0, Platelet Estimate DecreasedL, Platelet Morphology Normal, Hypochromasia 1+, Anisocytosis 1+, Sodium Level 133L, Potassium Level 3.8, Chloride Level 105, Carbon Dioxide Level 17L, Anion Gap 11, Blood Urea Nitrogen 60H, Creatinine 4.2H, Estimat Glomerular Filtration Rate , Glucose Level 140H, Calcium Level 9.1, Phosphorus Level 3.5, Magnesium Level 1.7L, Total Bilirubin 2.6H, Direct Bilirubin 1.3H, Aspartate Amino Transf (AST/SGOT) 40H, Alanine Aminotransferase (ALT/SGPT) 10L, Alkaline Phosphatase 125H, Total Protein 5.3L, Albumin 2.1L, Globulin 3.2, Albumin/Globulin Ratio 0.6L 01/26/17 06:32: Arterial Blood pH 7.290L, Arterial Blood Partial Pressure CO2 35.0, Arterial Blood Partial Pressure O2 97.9, Arterial Blood HCO3 16.7L, Arterial Blood Oxygen Saturation 96.4, Arterial Blood Base Excess -9.0, Bon Test Positive 01/26/17 13:00: Urine Color Yellow, Urine Appearance Slightly cloudy, Urine pH 5, Urine Specific [place] 1.015, Urine Protein 3+H, Urine Glucose (UA) Negative, Urine Ketones Negative, Urine Occult Blood 5+H, Urine Nitrite Negative, Urine Bilirubin 1+H, Urine Ictotest Negative, Urine Urobilinogen Normal, Urine Leukocyte Esterase 3+H, Urine RBC 5-10H, Urine WBC 10-15H, Urine Squamous Epithelial Cells Few, Urine Bacteria Few, Urine Yeast ModerateH Height (Feet): 5 Height (Inches): 6.00 Weight (Pounds): 269 General Appearance: no apparent distress EENT: normal ENT inspection Neck: normal inspection Cardiovascular: bradycardia Abdomen: no mass Extremities: non-tender Chriss Pat Jan 26, 2017 23:06
[2017-01-27] VITALS (24 sets, daily range): BP systolic 102–168; BP diastolic 42–71
[2017-01-27] MEDS: NovoLOG Insulin Flexpen SUBQ SCH ×6 (00:08→23:27)
[2017-01-27] MEDS: D5NS 1,000 ML IV SCH ×2 (03:06→16:13)
[2017-01-27] MEDS ORDERED: Ertapenem (INVanz) 1gm Inj ONE (06:12)
[2017-01-27] MEDS: Ertapenem 0.5 GM in NS 55 ML IVPB SCH (06:19)
[2017-01-27 06:25] LABS: HEMATOCRIT 28.4 % (37.0-47.0); HEMOGLOBIN 9.4 G/DL (12.0-16.0); MEAN CORPUSCULAR VOLUME 98 FL (80-99); PLATELET COUNT 27 K/UL (150-450); RED BLOOD COUNT 2.91 M/UL (4.20-5.40); RED CELL DISTRIBUTION WIDTH 16.2 % (11.6-14.8); WHITE BLOOD COUNT 15.9 K/UL (4.8-10.8)
[2017-01-27 06:38] LABS: ALANINE AMINOTRANSFERASE 9 U/L (12-78); ALBUMIN/GLOBULIN RATIO 0.6 (1.0-2.7); ALKALINE PHOSPHATASE 141 U/L (46-116); ANION GAP 12 (5-15); ASPARTATE AMINO TRANSFERASE 41 U/L (15-37); BILIRUBIN,TOTAL 1.3 MG/DL (0.2-1.0); BLOOD UREA NITROGEN 68 mg/dL (7-18); CALCIUM 9.7 MG/DL (8.5-10.1); CARBON DIOXIDE 16 MMOL/L (21-32); CHLORIDE 108 MMOL/L (98-107); CREATININE 4.8 MG/DL (0.55-1.30); POTASSIUM 3.9 MMOL/L (3.5-5.1); SODIUM 136 MMOL/L (136-145)
[2017-01-27 07:06] LABS: PHOSPHORUS 3.8 MG/DL (2.5-4.9)
[2017-01-27] MEDS ORDERED: Sodium Chloride 500ML 500 ML IV ONE (07:30)
[2017-01-27 07:41] LABS: BILIRUBIN,DIRECT 0.7 MG/DL (0.0-0.3)
[2017-01-27] MEDS: Pantoprazole Inj IVP SCH ×2 (08:34→20:27)
[2017-01-27] MEDS: Midodrine 10mg tab ORAL SCH ×3 (08:34→17:48)
[2017-01-27] MEDS: Vancomycin oral 125mg/2.5ml ORAL SCH ×2 (08:35→17:48)
[2017-01-27] MEDS: Nystatin Powder 100,000 units/gm 15gm TOPIC SCH ×3 (08:35→17:50)
[2017-01-27] MEDS: Lactulose 10gm/15ml UDC ORAL SCH ×2 (08:35→17:48)
[2017-01-27] MEDS ORDERED: Levemir Flexpen SUBQ SCH (09:00)
--- NOTE | 2017-01-27 09:24 | Pulmonolgy Critical Care Note ---
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 Respiratory: monitor respiratory rate, adjust FIO2, CXR Cardiac: continue pressors - dopamine renal dose, continue to monitor HR/BP Renal: F/U I&O, keep IV fluid, check electrolytes Infectious Disease: check cultures, continue antibiotics Gastrointestinal: continue feedings/current rate Endocrine: monitor blood sugar Hematologic: monitor H/H, transfuse if hgb<8.5 Neurologic: PRN Ativan, PRN Morphine, keep patient comfortable Affect: PRN ativan Time Spent (Minutes): 40 Notes Reviewed: cardio Discussed with: nurses, consultants, bilingual patient support caseworkeric design manager - Objective Last 24 Hour Vital Signs Date Time Temp Pulse Resp B/P (MAP) Pulse Ox O2 Delivery O2 Flow Rate FiO2 01/27/17 08:00 78 01/27/17 08:00 60 01/27/17 08:00 97.5 75 18 114/49 94 Mechanical Ventilator 60 01/27/17 07:00 81 26 112/49 94 Mechanical Ventilator 60 01/27/17 07:00 78 17 112/49 94 Mechanical Ventilator 100 01/27/17 06:42 80 18 60 01/27/17 06:00 81 17 111/48 95 Mechanical Ventilator 100 01/27/17 05:08 78 18 60 01/27/17 05:00 80 17 106/48 95 Mechanical Ventilator 100 01/27/17 04:00 97.6 80 18 113/50 95 Mechanical Ventilator 100 01/27/17 04:00 80 01/27/17 04:00 60 01/27/17 03:25 77 18 60 01/27/17 03:00 76 18 109/50 97 Mechanical Ventilator 100 01/27/17 02:00 74 18 102/42 98 Mechanical Ventilator 100 01/27/17 01:08 72 18 60 01/27/17 01:00 74 18 104/45 98 Mechanical Ventilator 100 01/27/17 00:00 97.4 74 18 107/44 98 Mechanical Ventilator 100 01/27/17 00:00 74 01/27/17 00:00 100 01/26/17 23:30 71 18 106/45 98 Mechanical Ventilator 100 01/26/17 23:30 70 18 60 01/26/17 23:00 72 18 107/45 99 Mechanical Ventilator 100 01/26/17 22:30 72 18 108/46 99 Mechanical Ventilator 100 01/26/17 22:00 72 18 104/44 99 Mechanical Ventilator 100 01/26/17 21:30 74 18 104/46 99 Mechanical Ventilator 100 01/26/17 21:00 79 18 107/46 100 Mechanical Ventilator 100 01/26/17 20:31 80 18 60 01/26/17 20:30 80 18 111/46 100 Mechanical Ventilator 60 01/26/17 20:00 79 18 107/46 100 Mechanical Ventilator 60 01/26/17 20:00 79 01/26/17 20:00 40 01/26/17 19:30 81 18 40 01/26/17 19:30 69 18 107/45 100 Mechanical Ventilator 60 01/26/17 19:00 97.8 67 18 103/48 100 Mechanical Ventilator 60 01/26/17 18:30 69 18 99/47 100 Mechanical Ventilator 60 01/26/17 18:00 72 18 90/56 100 Mechanical Ventilator 60 01/26/17 17:34 80 18 100 01/26/17 17:30 78 18 100/42 99 Mechanical Ventilator 60 01/26/17 17:00 75 18 98/50 100 Mechanical Ventilator 60 01/26/17 16:46 73 18 60 01/26/17 16:30 72 18 105/42 98 Mechanical Ventilator 60 01/26/17 16:00 60 01/26/17 16:00 97.6 83 18 103/45 97 Mechanical Ventilator 60 01/26/17 16:00 84 01/26/17 15:30 76 18 101/42 98 Mechanical Ventilator 60 01/26/17 15:00 78 32 103/47 98 Mechanical Ventilator 60 01/26/17 14:33 80 18 60 01/26/17 14:00 109/43 01/26/17 14:00 80 19 104/48 98 Mechanical Ventilator 60 01/26/17 13:30 78 24 109/43 98 Mechanical Ventilator 60 01/26/17 13:00 80 18 116/48 98 Mechanical Ventilator 60 01/26/17 13:00 116/48 01/26/17 12:34 79 18 60 01/26/17 12:30 80 20 95/44 99 Mechanical Ventilator 60 01/26/17 12:00 80 01/26/17 12:00 96/44 01/26/17 12:00 97.4 81 21 96/44 99 Mechanical Ventilator 60 01/26/17 12:00 60 01/26/17 11:30 82 21 94/43 98 Mechanical Ventilator 60 01/26/17 11:00 82 2 94/41 99 Mechanical Ventilator 60 01/26/17 11:00 94/41 01/26/17 10:40 80 18 60 01/26/17 10:30 81 20 95/45 99 Mechanical Ventilator 60 01/26/17 10:00 98/46 01/26/17 10:00 81 18 105/50 99 Mechanical Ventilator 60 01/26/17 09:30 79 18 98/48 99 Mechanical Ventilator 60 Status: awake Condition: critical HEENT: atraumatic, normocephalic Lungs: chest wall tender Heart: HR/BP stable Abdomen: soft, non-tender, feeding tube Extremities: no C/C/E, edema Micro: Microbiology Date/Time Source Procedure Growth Status 01/24/17 10:15 Blood Blood Culture - Preliminary NO GROWTH AFTER 48 HOURS Resulted 01/24/17 10:00 Blood Blood Culture - Preliminary NO GROWTH AFTER 48 HOURS Resulted 01/26/17 13:00 Sputum Gram Stain Pending Resulted 01/26/17 13:00 Sputum Culture - Preliminary Gram Negative Bacillus 1 Resulted 01/26/17 13:00 Urine,Clean Catch Urine Culture - Preliminary Resulted Accucheck: 166 Critical Care - Subjective ROS Limited/Unobtainable: No ICU Day: 7 Intubation Day: 7 Condition: critical EKG Rhythm: Sinus Rhythm FI02: 60 Vent Support Breath Rate: 18 Vent Support Mode: AC Vent Tidal Volume: 600 Sputum Amount: Scant PEEP: 0.0 PIP: 41 Drips: dopamin Tube Feeding Amount: 20 I&O: Intake and Output 01/27/17 01/28/17 19:00 07:00 Intake Total 84 ml Output Total 0 ml Balance 84 ml IV Total 84 ml Output Urine Total 0 ml CXR: extensive infiltrate ET-Tube: 7.0 ET Position: 20 Labs: Laboratory Tests Test 01/26/17 13:00 01/27/17 05:10 Urine Color Yellow Urine Appearance Slightly cloudy Urine pH 5 (4.5-8.0) Urine Specific [place] 1.015 (1.005-1.035) Urine Protein 3+ (NEGATIVE) H Urine Glucose (UA) Negative (NEGATIVE) Urine Ketones Negative (NEGATIVE) Urine Occult Blood 5+ (NEGATIVE) H Urine Nitrite Negative (NEGATIVE) Urine Bilirubin 1+ (NEGATIVE) H Urine Ictotest Negative Urine Urobilinogen Normal MG/DL (0.0-1.0) Urine Leukocyte Esterase 3+ (NEGATIVE) H Urine RBC 5-10 /HPF (0 - 2) H Urine WBC 10-15 /HPF (0 - 2) H Urine Squamous Epithelial Cells Few /LPF (NONE/OCC) Urine Bacteria Few /HPF (NONE) Urine Yeast Moderate /HPF (NONE) H White Blood Count 15.9 K/UL (4.8-10.8) H Red Blood Count 2.91 M/UL (4.20-5.40) L Hemoglobin 9.4 G/DL (12.0-16.0) L Hematocrit 28.4 % (37.0-47.0) L Mean Corpuscular Volume 98 FL (80-99) Mean Corpuscular Hemoglobin 32.4 PG (27.0-31.0) H Mean Corpuscular Hemoglobin Concent 33.1 G/DL (32.0-36.0) Red Cell Distribution Width 16.2 % (11.6-14.8) H Platelet Count 27 K/UL (150-450) L Mean Platelet Volume 13.0 FL (6.5-10.1) H Neutrophils (%) (Auto) % (45.0-75.0) Lymphocytes (%) (Auto) % (20.0-45.0) Monocytes (%) (Auto) % (1.0-10.0) Eosinophils (%) (Auto) % (0.0-3.0) Basophils (%) (Auto) % (0.0-2.0) Neutrophils % (Manual) Pending Lymphocytes % (Manual) Pending Platelet Estimate Pending Platelet Morphology Pending Sodium Level 136 MMOL/L (136-145) Potassium Level 3.9 MMOL/L (3.5-5.1) Chloride Level 108 MMOL/L (98-107) H Carbon Dioxide Level 16 MMOL/L (21-32) L Anion Gap 12 (5-15) Blood Urea Nitrogen 68 mg/dL (7-18) H Creatinine 4.8 MG/DL (0.55-1.30) H Estimat Glomerular Filtration Rate mL/min (>60) Glucose Level 176 MG/DL (74-106) H Uric Acid 8.6 MG/DL (2.6-7.2) H Calcium Level 9.7 MG/DL (8.5-10.1) Phosphorus Level 3.8 MG/DL (2.5-4.9) Magnesium Level 2.2 MG/DL (1.8-2.4) Total Bilirubin 1.3 MG/DL (0.2-1.0) H Direct Bilirubin 0.7 MG/DL (0.0-0.3) H Aspartate Amino Transf (AST/SGOT) 41 U/L (15-37) H Alanine Aminotransferase (ALT/SGPT) 9 U/L (12-78) L Alkaline Phosphatase 141 U/L (46-116) H C-Reactive Protein, Quantitative Pending Pro-B-Type Natriuretic Peptide 66406 (0-125) H Total Protein 5.5 G/DL (6.4-8.2) L Albumin 2.0 G/DL (3.4-5.0) L Globulin 3.5 g/dL Albumin/Globulin Ratio 0.6 (1.0-2.7) L Random Vancomycin Level 24.4 ug/mL DIONI TRIANA Jan 27, 2017 09:23
[2017-01-27] MEDS: DOPamine 400mg/250ml 250 ML IV SCH (10:49)
--- NOTE | 2017-01-27 11:46 | Diagnostic Imaging Report ---
Indication: DYSPNEA Technique: One view of the chest Comparison: 01/26/2017 Findings: Again demonstrated is extensive bilateral pulmonary parenchymal interstitial and alveolar disease, pattern consistent with ARDS. Stable satisfactory positions of endotracheal and nasogastric tubes, right jugular central venous catheter. Heart size is difficult to assess. Evidence of prior vertebral augmentation procedure again demonstrated at L1. Impression: Unchanged, over one day, findings as above.
[2017-01-27] MEDS: Metoclopramide 10mg/2ml Inj IVP PRN (12:27)
[2017-01-27] MEDS ORDERED: D5NS 1000ml IV ONE (14:41)
[2017-01-27] MEDS ORDERED: NS 275ml ONE (14:41)
--- NOTE | 2017-01-27 14:59 | General Progress Note ---
Assessment/Plan Status: deteriorating Status Narrative Cr rising Assessment/Plan Acute on chronic renal failure- multifactorial CHF DM HTN Sepsis Now: Acute respiratory failure- Intubated - Altered level of consciousness - ESBL (extended spectrum beta-lactamase) producing bacteria infection - Cardiomegaly - DM (diabetes mellitus) - HTN (hypertension) - UTI (urinary tract infection) - Anemia - High Cholestrol - COPD - YELENA - Fatty liver Plan: Radiology been unable to insert dialysis cath. They will try again . Transfuse- consider dialysis - daughter requests Optimize cardiac and pulmonary status 2D echo results noted avoid nephrotoxics monitor renal parameters Urine studies per orders poor prognosis Subjective ROS Limited/Unobtainable: Yes Allergies: Coded Allergies: PENICILLINS (Unverified Allergy, Unknown, 03/22/15) Objective Last 24 Hour Vital Signs Date Time Temp Pulse Resp B/P (MAP) Pulse Ox O2 Delivery O2 Flow Rate FiO2 01/27/17 13:00 73 20 163/63 97 Mechanical Ventilator 60 01/27/17 12:45 74 20 60 01/27/17 12:00 64 01/27/17 12:00 97.0 61 20 137/52 95 Mechanical Ventilator 60 01/27/17 12:00 60 01/27/17 11:00 71 20 146/54 94 Mechanical Ventilator 60 01/27/17 10:49 75/49 01/27/17 10:33 74 20 60 01/27/17 10:30 60 01/27/17 10:00 75 18 114/47 94 Mechanical Ventilator 60 01/27/17 09:00 74 18 116/49 93 Mechanical Ventilator 60 01/27/17 08:51 75 18 60 01/27/17 08:00 78 01/27/17 08:00 60 01/27/17 08:00 97.5 75 18 114/49 94 Mechanical Ventilator 60 01/27/17 07:00 81 26 112/49 94 Mechanical Ventilator 60 01/27/17 07:00 78 17 112/49 94 Mechanical Ventilator 100 01/27/17 06:42 80 18 60 01/27/17 06:00 81 17 111/48 95 Mechanical Ventilator 100 01/27/17 05:08 78 18 60 01/27/17 05:00 80 17 106/48 95 Mechanical Ventilator 100 01/27/17 04:00 97.6 80 18 113/50 95 Mechanical Ventilator 100 01/27/17 04:00 80 01/27/17 04:00 60 01/27/17 03:25 77 18 60 01/27/17 03:00 76 18 109/50 97 Mechanical Ventilator 100 01/27/17 02:00 74 18 102/42 98 Mechanical Ventilator 100 01/27/17 01:08 72 18 60 01/27/17 01:00 74 18 104/45 98 Mechanical Ventilator 100 01/27/17 00:00 97.4 74 18 107/44 98 Mechanical Ventilator 100 01/27/17 00:00 74 01/27/17 00:00 100 01/26/17 23:30 71 18 106/45 98 Mechanical Ventilator 100 01/26/17 23:30 70 18 60 01/26/17 23:00 72 18 107/45 99 Mechanical Ventilator 100 01/26/17 22:30 72 18 108/46 99 Mechanical Ventilator 100 01/26/17 22:00 72 18 104/44 99 Mechanical Ventilator 100 01/26/17 21:30 74 18 104/46 99 Mechanical Ventilator 100 01/26/17 21:00 79 18 107/46 100 Mechanical Ventilator 100 01/26/17 20:31 80 18 60 01/26/17 20:30 80 18 111/46 100 Mechanical Ventilator 60 01/26/17 20:00 79 18 107/46 100 Mechanical Ventilator 60 01/26/17 20:00 79 01/26/17 20:00 40 01/26/17 19:30 81 18 40 01/26/17 19:30 69 18 107/45 100 Mechanical Ventilator 60 01/26/17 19:00 97.8 67 18 103/48 100 Mechanical Ventilator 60 01/26/17 18:30 69 18 99/47 100 Mechanical Ventilator 60 01/26/17 18:00 72 18 90/56 100 Mechanical Ventilator 60 01/26/17 17:34 80 18 100 01/26/17 17:30 78 18 100/42 99 Mechanical Ventilator 60 01/26/17 17:00 75 18 98/50 100 Mechanical Ventilator 60 01/26/17 16:46 73 18 60 01/26/17 16:30 72 18 105/42 98 Mechanical Ventilator 60 01/26/17 16:00 60 01/26/17 16:00 97.6 83 18 103/45 97 Mechanical Ventilator 60 01/26/17 16:00 84 01/26/17 15:30 76 18 101/42 98 Mechanical Ventilator 60 01/26/17 15:00 78 32 103/47 98 Mechanical Ventilator 60 Intake and Output 01/27/17 01/28/17 19:00 07:00 Intake Total 495 ml Output Total 25 ml Balance 470 ml IV Total 495 ml Output Urine Total 25 ml Laboratory Tests 01/27/17 05:10: White Blood Count 15.9H, Red Blood Count 2.91L, Hemoglobin 9.4L, Hematocrit 28.4L, Mean Corpuscular Volume 98, Mean Corpuscular Hemoglobin 32.4H, Mean Corpuscular Hemoglobin Concent 33.1, Red Cell Distribution Width 16.2H, Platelet Count 27L, Mean Platelet Volume 13.0H, Neutrophils (%) (Auto) , Lymphocytes (%) (Auto) , Monocytes (%) (Auto) , Eosinophils (%) (Auto) , Basophils (%) (Auto) , Differential Total Cells Counted 100, Neutrophils % ( Manual) 81H, Lymphocytes % (Manual) 10L, Monocytes % (Manual) 6, Eosinophils % ( Manual) 1, Basophils % (Manual) 0, Band Neutrophils 2, Platelet Estimate DecreasedL, Platelet Morphology Normal, Hypochromasia 1+, Anisocytosis 1+, Macrocytosis 1+, Sodium Level 136, Potassium Level 3.9, Chloride Level 108H, Carbon Dioxide Level 16L, Anion Gap 12, Blood Urea Nitrogen 68H, Creatinine 4.8H , Estimat Glomerular Filtration Rate , Glucose Level 176H, Uric Acid 8.6H, Calcium Level 9.7, Phosphorus Level 3.8, Magnesium Level 2.2, Total Bilirubin 1.3H, Direct Bilirubin 0.7H, Aspartate Amino Transf (AST/SGOT) 41H, Alanine Aminotransferase (ALT/SGPT) 9L, Alkaline Phosphatase 141H, C-Reactive Protein, Quantitative 12.2H, Pro-B-Type Natriuretic Peptide 70375J, Total Protein 5.5L, Albumin 2.0L, Globulin 3.5, Albumin/Globulin Ratio 0.6L, Random Vancomycin Level 24.4 01/27/17 09:29: Arterial Blood pH 7.216*L, Arterial Blood Partial Pressure CO2 34.2L, Arterial Blood Partial Pressure O2 97.1, Arterial Blood HCO3 13.6L, Arterial Blood Oxygen Saturation 96.5, Arterial Blood Base Excess -13.2, Bon Test Positive Height (Feet): 5 Height (Inches): 6.00 Weight (Pounds): 280 General Appearance: no apparent distress, lethargic EENT: other - on vent Cardiovascular: tachycardia Respiratory/Chest: decreased breath sounds Abdomen: distended Objective no change ANDERS MOLINA Jan 27, 2017 14:59
--- NOTE | 2017-01-27 15:35 | Infectious Diseases Prog Note ---
Assessment/Plan Assessment/Plan Assesment: Encephalopathy- possibly multifactorial- hepatic encephalopathy, infection- worsening now due to hypercapnea (transferred to ICU 01/21), on bipap> intubated Acute respiratory failure s/p intubation - 2ry to hypercapnea, PNA Sepsis 2ry to PNA and Bacteremia HCAP 2ry to ESBL. E.coli -CXR 01/25: Extensive bilateral interstitial and airspace edema/infiltrates slightly increased in the right lung. Stable support lines and tubes. -CXR 01/23 : Interval worsening pulmonary edema. -repeat sp cx 01/26: +4 GNB (id and sensi pending) -Sp cx 01/22: +2 ESBK E.coli, +2 C. albicans (colonizer) MRSA bacteremia- ?source, r/o endocarditis; persistent bacteremia- no central lines except for HD cath that was placed today 01/27 -01/16 04/23 BCx MRSA (S. Vanco JOSE A 1), repeat Bcx 01/19 Neg, 01/21 04/23 CoNS ( contaminant), 01/24 Bcx 04/23 GPC clusters -TTE 01/19(limited study): No aortic regurgitation.Trace mitral regurgitation.Mitral diastolic velocities suggest reduced left ventricular relaxation c/w diastolic dysfunction grade 1.Moderate tricuspid regurgitation. Leukocytosis, improving -01/26. pyuria improving (WBC 10-15); ucx pending -01/22 u/a WBC 30-40, ucx yeast (colonizer) -Sp cx ESBL E.coli, diaz (colonizer) Probable MDR UTI, pyuria, s/p Rx -u/a 01/16 WBC too many to count,nit neg ,leuk est +3; UCx x3 grew >100K MDR A.baumani complex (S. tigecycline/Minocycline, Polymixin B/Colistin), >100K PsA (S. Cefepime, Zosyn; R Cipro/Levo); a prior isolated on a ucx from the same day isolated MDR PsA (I. Cefepime, R ceftzadime, Meropenem; S. Tygecicine, amikacin) -renal u/s: Nondiagnostic exam RAMYA on CKD, worsening Cirrhosis Anemia & thrombocytopenia DM type 2 Morbid obesity PLAN: -Continue Ertapenem for ESBL E. coli in sputum (abx d# 10/01) -s/p 7d Cefepime 01/24 -s/p 3d Amikacin 01/24 -s/p 7d Minocycline 01/24 -Continue IV Vancomycin #9 For MRSA bacteremia (currently held to supratherapeutic lab); will give one time dose of IV Daptomycin 6mg/kg today ( called micro lab to f/u on Dapto susceptibilities but micro staff already gone for the day) -f/u Dapto susceptibilities, if susceptible, will switch Vanco to Daptomycin. Will also ask for Ceftaroline susceptibilities. I have considered Linezolid but her platelet counts are 27. -s/p 3d IV vanco 01/18 -continue prophylatic PO Vancomycin #5 -repeat 2 sets of Bcx -Repeat echo -if persistent bacteremia and if consistent with goals of care will need NAM -f/u repeat cx Discussed with RN and Dr Jerri Bui px; critically ill Subjective Allergies: Coded Allergies: PENICILLINS (Unverified Allergy, Unknown, 03/22/15) Subjective family did not opted for terminal extubation and now wants patient to be started on HD afebrile bacteremic leukocytosis improving Objective Vital Signs Last 24 Hour Vital Signs Date Time Temp Pulse Resp B/P (MAP) Pulse Ox O2 Delivery O2 Flow Rate FiO2 01/27/17 15:02 78 20 60 01/27/17 13:00 73 20 163/63 97 Mechanical Ventilator 60 01/27/17 12:45 74 20 60 01/27/17 12:00 64 01/27/17 12:00 97.0 61 20 137/52 95 Mechanical Ventilator 60 01/27/17 12:00 60 01/27/17 11:00 71 20 146/54 94 Mechanical Ventilator 60 01/27/17 10:49 75/49 01/27/17 10:33 74 20 60 01/27/17 10:30 60 01/27/17 10:00 75 18 114/47 94 Mechanical Ventilator 60 01/27/17 09:00 74 18 116/49 93 Mechanical Ventilator 60 01/27/17 08:51 75 18 60 01/27/17 08:00 78 01/27/17 08:00 60 01/27/17 08:00 97.5 75 18 114/49 94 Mechanical Ventilator 60 01/27/17 07:00 81 26 112/49 94 Mechanical Ventilator 60 01/27/17 07:00 78 17 112/49 94 Mechanical Ventilator 100 01/27/17 06:42 80 18 60 01/27/17 06:00 81 17 111/48 95 Mechanical Ventilator 100 01/27/17 05:08 78 18 60 01/27/17 05:00 80 17 106/48 95 Mechanical Ventilator 100 01/27/17 04:00 97.6 80 18 113/50 95 Mechanical Ventilator 100 01/27/17 04:00 80 01/27/17 04:00 60 01/27/17 03:25 77 18 60 01/27/17 03:00 76 18 109/50 97 Mechanical Ventilator 100 01/27/17 02:00 74 18 102/42 98 Mechanical Ventilator 100 01/27/17 01:08 72 18 60 01/27/17 01:00 74 18 104/45 98 Mechanical Ventilator 100 01/27/17 00:00 97.4 74 18 107/44 98 Mechanical Ventilator 100 01/27/17 00:00 74 01/27/17 00:00 100 01/26/17 23:30 71 18 106/45 98 Mechanical Ventilator 100 01/26/17 23:30 70 18 60 01/26/17 23:00 72 18 107/45 99 Mechanical Ventilator 100 01/26/17 22:30 72 18 108/46 99 Mechanical Ventilator 100 01/26/17 22:00 72 18 104/44 99 Mechanical Ventilator 100 01/26/17 21:30 74 18 104/46 99 Mechanical Ventilator 100 01/26/17 21:00 79 18 107/46 100 Mechanical Ventilator 100 01/26/17 20:31 80 18 60 01/26/17 20:30 80 18 111/46 100 Mechanical Ventilator 60 01/26/17 20:00 79 18 107/46 100 Mechanical Ventilator 60 01/26/17 20:00 79 01/26/17 20:00 40 01/26/17 19:30 81 18 40 01/26/17 19:30 69 18 107/45 100 Mechanical Ventilator 60 01/26/17 19:00 97.8 67 18 103/48 100 Mechanical Ventilator 60 01/26/17 18:30 69 18 99/47 100 Mechanical Ventilator 60 01/26/17 18:00 72 18 90/56 100 Mechanical Ventilator 60 01/26/17 17:34 80 18 100 01/26/17 17:30 78 18 100/42 99 Mechanical Ventilator 60 01/26/17 17:00 75 18 98/50 100 Mechanical Ventilator 60 01/26/17 16:46 73 18 60 01/26/17 16:30 72 18 105/42 98 Mechanical Ventilator 60 01/26/17 16:00 60 01/26/17 16:00 97.6 83 18 103/45 97 Mechanical Ventilator 60 01/26/17 16:00 84 Height (Feet): 5 Height (Inches): 6.00 Weight (Pounds): 280 Objective HEENT: No pale conjunctivae. No icterus.ETT in place NECK: No lymphadenopathy. CHEST: coarse breath sounds HEART: S1 and S2. ABDOMEN: Soft and obese. EXTREMITIES: No cyanosis. NEUROLOGIC: lethargic. Skin: no rashes Microbiology Date/Time Source Procedure Growth Status 01/26/17 13:00 Sputum Gram Stain - Final Resulted 01/26/17 13:00 Sputum Culture - Preliminary Gram Negative Bacillus 1 Resulted 01/26/17 13:00 Urine,Clean Catch Urine Culture - Preliminary Resulted Laboratory Tests Test 01/27/17 05:10 01/27/17 09:29 White Blood Count 15.9 K/UL (4.8-10.8) H Red Blood Count 2.91 M/UL (4.20-5.40) L Hemoglobin 9.4 G/DL (12.0-16.0) L Hematocrit 28.4 % (37.0-47.0) L Mean Corpuscular Volume 98 FL (80-99) Mean Corpuscular Hemoglobin 32.4 PG (27.0-31.0) H Mean Corpuscular Hemoglobin Concent 33.1 G/DL (32.0-36.0) Red Cell Distribution Width 16.2 % (11.6-14.8) H Platelet Count 27 K/UL (150-450) L Mean Platelet Volume 13.0 FL (6.5-10.1) H Neutrophils (%) (Auto) % (45.0-75.0) Lymphocytes (%) (Auto) % (20.0-45.0) Monocytes (%) (Auto) % (1.0-10.0) Eosinophils (%) (Auto) % (0.0-3.0) Basophils (%) (Auto) % (0.0-2.0) Differential Total Cells Counted 100 Neutrophils % (Manual) 81 % (45-75) H Lymphocytes % (Manual) 10 % (20-45) L Monocytes % (Manual) 6 % (1-10) Eosinophils % (Manual) 1 % (0-3) Basophils % (Manual) 0 % (0-2) Band Neutrophils 2 % (0-8) Platelet Estimate Decreased L Platelet Morphology Normal Hypochromasia 1+ Anisocytosis 1+ Macrocytosis 1+ Sodium Level 136 MMOL/L (136-145) Potassium Level 3.9 MMOL/L (3.5-5.1) Chloride Level 108 MMOL/L (98-107) H Carbon Dioxide Level 16 MMOL/L (21-32) L Anion Gap 12 (5-15) Blood Urea Nitrogen 68 mg/dL (7-18) H Creatinine 4.8 MG/DL (0.55-1.30) H Estimat Glomerular Filtration Rate mL/min (>60) Glucose Level 176 MG/DL (74-106) H Uric Acid 8.6 MG/DL (2.6-7.2) H Calcium Level 9.7 MG/DL (8.5-10.1) Phosphorus Level 3.8 MG/DL (2.5-4.9) Magnesium Level 2.2 MG/DL (1.8-2.4) Total Bilirubin 1.3 MG/DL (0.2-1.0) H Direct Bilirubin 0.7 MG/DL (0.0-0.3) H Aspartate Amino Transf (AST/SGOT) 41 U/L (15-37) H Alanine Aminotransferase (ALT/SGPT) 9 U/L (12-78) L Alkaline Phosphatase 141 U/L (46-116) H C-Reactive Protein, Quantitative 12.2 mg/dL (0.00-0.90) H Pro-B-Type Natriuretic Peptide 55179 (0-125) H Total Protein 5.5 G/DL (6.4-8.2) L Albumin 2.0 G/DL (3.4-5.0) L Globulin 3.5 g/dL Albumin/Globulin Ratio 0.6 (1.0-2.7) L Random Vancomycin Level 24.4 ug/mL Arterial Blood pH 7.216 (7.350-7.450) Arterial Blood Partial Pressure CO2 34.2 mmHg (35.0-45.0) L Arterial Blood Partial Pressure O2 97.1 mmHg (75.0-100.0) Arterial Blood HCO3 13.6 mmol/L (22.0-26.0) L Arterial Blood Oxygen Saturation 96.5 % (92.0-98.0) Arterial Blood Base Excess -13.2 Bon Test Positive Current Medications Medications (Trade) Dose Ordered Sig/Pavel Route PRN Reason Start Time Stop Time Status Last Admin Dose Admin Acetaminophen (Tylenol) 650 mg Q4H PRN ORAL T>100.5 01/21/17 14:30 02/15/17 14:29 Albuterol/ Ipratropium (DuoNeb 0.5-3(2.5)mg/3ml) 3 ml Q4H PRN HHN Shortness of Breath 01/21/17 14:30 01/28/17 14:29 Chlorhexidine Gluconate (Dianne-Hex 2%) 1 applic DAILY@2000 TOPIC 01/25/17 20:00 02/24/17 19:59 01/26/17 19:40 Clotrimazole (Lotrimin) 1 applic EVERY 12 HOURS TOPIC 01/21/17 21:00 02/18/17 13:59 01/27/17 08:35 Dextrose (Dextrose 50%) STAT PRN IV Hypoglycemia 01/27/17 07:45 02/26/17 07:44 Dextrose/Sodium Chloride 1,000 ml @ 75 mls/hr [id number] IV 01/26/17 13:15 02/25/17 13:14 01/27/17 03:06 Dopamine HCl/ Dextrose 250 ml @ 0 mls/hr Q24H IV 01/25/17 11:15 02/24/17 11:14 01/27/17 10:49 Ertapenem 0.5 gm/ Sodium Chloride 55 ml @ 110 mls/hr Q24H IVPB 01/28/17 09:00 02/02/17 08:59 Insulin Aspart (NovoLOG) BEFORE MEALS AND HS SUBQ 01/27/17 11:30 02/26/17 11:29 01/27/17 12:26 Lactulose (Cephulac) 10 gm BID ORAL 01/23/17 09:00 02/18/17 12:59 01/27/17 08:35 Lorazepam (Ativan 2mg/ml 1ml) 2 mg Q4H PRN IV For Anxiety 01/22/17 06:45 01/29/17 06:44 01/23/17 09:10 Metoclopramide HCl (Reglan) 10 mg Q6H PRN IVP Nausea & Vomiting 01/25/17 22:30 02/24/17 22:29 01/27/17 12:27 Midodrine (Pro-Amatine) 10 mg THREE TIMES A DAY ORAL 01/26/17 18:00 02/25/17 17:59 01/27/17 12:26 Morphine Sulfate (Morphine Sulfate) 4 mg Q4H PRN IVP For Pain 01/22/17 06:45 01/29/17 06:44 Nitroglycerin (Ntg) 0.4 mg Q5MIN X 3 DOSES PRN SL Prn Chest Pain 01/21/17 14:30 02/15/17 14:29 Nystatin (Nystop Powder) 1 applic THREE TIMES A DAY TOPIC 01/22/17 13:00 02/21/17 12:59 01/27/17 12:26 Ondansetron HCl (Zofran) 4 mg Q6H PRN IVP Nausea & Vomiting 01/21/17 14:30 02/15/17 14:29 Pantoprazole (Protonix) 40 mg EVERY 12 HOURS IVP 01/21/17 21:00 02/20/17 20:59 01/27/17 08:34 Polyethylene Glycol (Miralax) 17 gm DAILYPRN PRN ORAL Constipation 01/21/17 14:00 02/17/17 13:59 Vancomycin HCl (Vanco rx to dose) 1 ea DAILY PRN MISC Per rx protocol 01/22/17 09:00 02/18/17 11:44 Vancomycin HCl (Vancomycin) 125 mg BID ORAL 01/23/17 19:30 01/30/17 19:29 01/27/17 08:35 Vancomycin/Sodium Chloride 250 ml @ 166.667 mls/hr ONCE ONCE IVPB 01/28/17 10:00 01/28/17 11:29 Nereyda Monroe M.D. Jan 27, 2017 15:34
--- NOTE | 2017-01-27 16:21 | Internal Med Progress Note ---
Subjective Date of Service: Jan 27, 2017 Physician Name JerriKatharina Attending Physician Rl Tee MD Current Medications Medications (Trade) Dose Ordered Sig/Pavel Route PRN Reason Start Time Stop Time Status Last Admin Dose Admin Acetaminophen (Tylenol) 650 mg Q4H PRN ORAL T>100.5 01/21/17 14:30 02/15/17 14:29 Albuterol/ Ipratropium (DuoNeb 0.5-3(2.5)mg/3ml) 3 ml Q4H PRN HHN Shortness of Breath 01/21/17 14:30 01/28/17 14:29 Chlorhexidine Gluconate (Dianne-Hex 2%) 1 applic DAILY@1999 TOPIC 01/25/17 20:00 02/24/17 19:59 01/26/17 19:40 Clotrimazole (Lotrimin) 1 applic EVERY 12 HOURS TOPIC 01/21/17 21:00 02/18/17 13:59 01/27/17 08:35 Daptomycin 750 mg/ Sodium Chloride 55 ml @ 110 mls/hr ONCE ONCE IV 01/27/17 18:00 01/27/17 18:29 Dextrose (Dextrose 50%) STAT PRN IV Hypoglycemia 01/27/17 07:45 02/26/17 07:44 Dextrose/Sodium Chloride 1,000 ml @ 75 mls/hr [id number] IV 01/26/17 13:15 02/25/17 13:14 01/27/17 03:06 Dopamine HCl/ Dextrose 250 ml @ 0 mls/hr Q24H IV 01/25/17 11:15 02/24/17 11:14 01/27/17 10:49 Ertapenem 0.5 gm/ Sodium Chloride 55 ml @ 110 mls/hr Q24H IVPB 01/28/17 09:00 02/02/17 08:59 Insulin Aspart (NovoLOG) BEFORE MEALS AND HS SUBQ 01/27/17 11:30 02/26/17 11:29 01/27/17 12:26 Lactulose (Cephulac) 10 gm BID ORAL 01/23/17 09:00 02/18/17 12:59 01/27/17 08:35 Lorazepam (Ativan 2mg/ml 1ml) 2 mg Q4H PRN IV For Anxiety 01/22/17 06:45 01/29/17 06:44 01/23/17 09:10 Metoclopramide HCl (Reglan) 10 mg Q6H PRN IVP Nausea & Vomiting 01/25/17 22:30 02/24/17 22:29 01/27/17 12:27 Midodrine (Pro-Amatine) 10 mg THREE TIMES A DAY ORAL 01/26/17 18:00 02/25/17 17:59 01/27/17 12:26 Morphine Sulfate (Morphine Sulfate) 4 mg Q4H PRN IVP For Pain 01/22/17 06:45 01/29/17 06:44 Nitroglycerin (Ntg) 0.4 mg Q5MIN X 3 DOSES PRN SL Prn Chest Pain 01/21/17 14:30 02/15/17 14:29 Nystatin (Nystop Powder) 1 applic THREE TIMES A DAY TOPIC 01/22/17 13:00 02/21/17 12:59 01/27/17 12:26 Ondansetron HCl (Zofran) 4 mg Q6H PRN IVP Nausea & Vomiting 01/21/17 14:30 02/15/17 14:29 Pantoprazole (Protonix) 40 mg EVERY 12 HOURS IVP 01/21/17 21:00 02/20/17 20:59 01/27/17 08:34 Polyethylene Glycol (Miralax) 17 gm DAILYPRN PRN ORAL Constipation 01/21/17 14:00 02/17/17 13:59 Vancomycin HCl (Vanco rx to dose) 1 ea DAILY PRN MISC Per rx protocol 01/22/17 09:00 02/18/17 11:44 Vancomycin HCl (Vancomycin) 125 mg BID ORAL 01/23/17 19:30 01/30/17 19:29 01/27/17 08:35 Vancomycin/Sodium Chloride 250 ml @ 166.667 mls/hr ONCE ONCE IVPB 01/28/17 10:00 01/28/17 11:29 Allergies: Coded Allergies: PENICILLINS (Unverified Allergy, Unknown, 03/22/15) ROS Limited/Unobtainable: Yes Subjective 76 YO F admitted with altered mental status. Now UTI and CHF. Intubated and sedated. ICU . Cover for Int Med-Dr Tee. Continues on Dopamine Objective Last Vital Signs Date Time Temp Pulse Resp B/P (MAP) Pulse Ox O2 Delivery O2 Flow Rate FiO2 01/27/17 15:02 78 20 60 01/27/17 13:00 163/63 97 Mechanical Ventilator 01/27/17 12:00 97.0 01/21/17 17:00 Laboratory Tests Test 01/27/17 05:10 01/27/17 09:29 White Blood Count 15.9 K/UL (4.8-10.8) H Red Blood Count 2.91 M/UL (4.20-5.40) L Hemoglobin 9.4 G/DL (12.0-16.0) L Hematocrit 28.4 % (37.0-47.0) L Mean Corpuscular Volume 98 FL (80-99) Mean Corpuscular Hemoglobin 32.4 PG (27.0-31.0) H Mean Corpuscular Hemoglobin Concent 33.1 G/DL (32.0-36.0) Red Cell Distribution Width 16.2 % (11.6-14.8) H Platelet Count 27 K/UL (150-450) L Mean Platelet Volume 13.0 FL (6.5-10.1) H Neutrophils (%) (Auto) % (45.0-75.0) Lymphocytes (%) (Auto) % (20.0-45.0) Monocytes (%) (Auto) % (1.0-10.0) Eosinophils (%) (Auto) % (0.0-3.0) Basophils (%) (Auto) % (0.0-2.0) Differential Total Cells Counted 100 Neutrophils % (Manual) 81 % (45-75) H Lymphocytes % (Manual) 10 % (20-45) L Monocytes % (Manual) 6 % (1-10) Eosinophils % (Manual) 1 % (0-3) Basophils % (Manual) 0 % (0-2) Band Neutrophils 2 % (0-8) Platelet Estimate Decreased L Platelet Morphology Normal Hypochromasia 1+ Anisocytosis 1+ Macrocytosis 1+ Sodium Level 136 MMOL/L (136-145) Potassium Level 3.9 MMOL/L (3.5-5.1) Chloride Level 108 MMOL/L (98-107) H Carbon Dioxide Level 16 MMOL/L (21-32) L Anion Gap 12 (5-15) Blood Urea Nitrogen 68 mg/dL (7-18) H Creatinine 4.8 MG/DL (0.55-1.30) H Estimat Glomerular Filtration Rate mL/min (>60) Glucose Level 176 MG/DL (74-106) H Uric Acid 8.6 MG/DL (2.6-7.2) H Calcium Level 9.7 MG/DL (8.5-10.1) Phosphorus Level 3.8 MG/DL (2.5-4.9) Magnesium Level 2.2 MG/DL (1.8-2.4) Total Bilirubin 1.3 MG/DL (0.2-1.0) H Direct Bilirubin 0.7 MG/DL (0.0-0.3) H Aspartate Amino Transf (AST/SGOT) 41 U/L (15-37) H Alanine Aminotransferase (ALT/SGPT) 9 U/L (12-78) L Alkaline Phosphatase 141 U/L (46-116) H C-Reactive Protein, Quantitative 12.2 mg/dL (0.00-0.90) H Pro-B-Type Natriuretic Peptide 24238 (0-125) H Total Protein 5.5 G/DL (6.4-8.2) L Albumin 2.0 G/DL (3.4-5.0) L Globulin 3.5 g/dL Albumin/Globulin Ratio 0.6 (1.0-2.7) L Random Vancomycin Level 24.4 ug/mL Arterial Blood pH 7.216 (7.350-7.450) Arterial Blood Partial Pressure CO2 34.2 mmHg (35.0-45.0) L Arterial Blood Partial Pressure O2 97.1 mmHg (75.0-100.0) Arterial Blood HCO3 13.6 mmol/L (22.0-26.0) L Arterial Blood Oxygen Saturation 96.5 % (92.0-98.0) Arterial Blood Base Excess -13.2 Bon Test Positive Microbiology Date/Time Source Procedure Growth Status 01/26/17 13:00 Sputum Gram Stain - Final Resulted 01/26/17 13:00 Sputum Culture - Preliminary Gram Negative Bacillus 1 Resulted 01/26/17 13:00 Urine,Clean Catch Urine Culture - Preliminary Resulted Intake and Output 01/27/17 01/28/17 19:00 07:00 Intake Total 495 ml Output Total 25 ml Balance 470 ml IV Total 495 ml Output Urine Total 25 ml Objective General Appearance: WD/WN, no apparent distress, moderate distress, obese EENT: PERRL/EOMI, normal ENT inspection Neck: non-tender, normal alignment, supple, normal inspection Cardiovascular: normal peripheral pulses, normal rate, regular rhythm, no gallop/murmur, no JVD Respiratory/Chest: Mechanical vent; chest wall non-tender, lungs with coarse upper air sounds, Bilat wheezes and rales, respiratory distress Abdomen: G-Tube; non tender, no organomegaly, no mass Neurologic: 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 Baumanii. See ID note. Continur ertaoenem, vanco and minocycline per ID (2) CHF (congestive heart failure) Assessment & Plan: LVEF 60-65%. see cardiology note. (3) DM (diabetes mellitus) Assessment & Plan: Continue novolog sliding scale (4) Hypercholesteremia (5) HTN (hypertension) Assessment & Plan: Currently hypotensive. (6) Uncontrolled diabetes mellitus (7) Cirrhosis Assessment & Plan: see GI note. (8) Anemia Assessment & Plan: Transfuse 2 units PRBC today (9) Altered mental status Assessment & Plan: Worsening. ICU status (10) Renal failure Assessment & Plan: S/P placement Dialysis cath today. See nephrology note. (11) Respiratory failure Assessment & Plan: Due to CHF. Cont mech vent per pulmonary. Continue antibiotic per ID (12) Bradycardia Assessment & Plan: see cardiology note. (13) Hypotension Assessment & Plan: Continue dopamine Status: not improved KATHARINA POND Jan 27, 2017 16:21
--- NOTE | 2017-01-27 16:53 | Diagnostic Imaging Report ---
Indication: Needs dialysis access Technique: Procedure performed at bedside. Procedural timeout performed. Total sterile technique, including sterile probe cover and sterile gel, sterile gloves, hand hygiene, hat, mask, sterile gown, large sterile drape, and preparation with 2% chlorhexidine utilized. Local anesthesia with 1% lidocaine. A guidewire was inserted through the pre-existing central venous catheter, the central venous catheter was removed. There was then replaced with a 12 Spanish 15 cm triple-lumen temporary dialysis catheter. Guidewire was removed. Catheter ports were aspirated and flushed. The catheter was fixed to the skin. Patient tolerated procedure well. A chest x-ray was obtained, documents catheter tip position at the midsuperior vena cava. Comparison: None Findings: As above Impression: Successful bedside placement of right transjugular temporary dialysis catheter, as described.
--- NOTE | 2017-01-27 17:29 | Geriatric Progress Note ---
Assessment/Plan Assessment/Plan encephalopathy Subjective Mood/Memory: Reports: depressed feelings, emotional problems Geriatric Geriatric Last 24 Hour Vital Signs Date Time Temp Pulse Resp B/P (MAP) Pulse Ox O2 Delivery O2 Flow Rate FiO2 01/27/17 17:11 64 20 60 01/27/17 16:00 66 01/27/17 16:00 60 01/27/17 15:02 78 20 60 01/27/17 13:00 73 20 163/63 97 Mechanical Ventilator 60 01/27/17 12:45 74 20 60 01/27/17 12:00 64 01/27/17 12:00 97.0 61 20 137/52 95 Mechanical Ventilator 60 01/27/17 12:00 60 01/27/17 11:00 71 20 146/54 94 Mechanical Ventilator 60 01/27/17 10:49 75/49 01/27/17 10:33 74 20 60 01/27/17 10:30 60 01/27/17 10:00 75 18 114/47 94 Mechanical Ventilator 60 01/27/17 09:00 74 18 116/49 93 Mechanical Ventilator 60 01/27/17 08:51 75 18 60 01/27/17 08:00 78 01/27/17 08:00 60 01/27/17 08:00 97.5 75 18 114/49 94 Mechanical Ventilator 60 01/27/17 07:00 81 26 112/49 94 Mechanical Ventilator 60 01/27/17 07:00 78 17 112/49 94 Mechanical Ventilator 100 01/27/17 06:42 80 18 60 01/27/17 06:00 81 17 111/48 95 Mechanical Ventilator 100 01/27/17 05:08 78 18 60 01/27/17 05:00 80 17 106/48 95 Mechanical Ventilator 100 01/27/17 04:00 97.6 80 18 113/50 95 Mechanical Ventilator 100 01/27/17 04:00 80 01/27/17 04:00 60 01/27/17 03:25 77 18 60 01/27/17 03:00 76 18 109/50 97 Mechanical Ventilator 100 01/27/17 02:00 74 18 102/42 98 Mechanical Ventilator 100 01/27/17 01:08 72 18 60 01/27/17 01:00 74 18 104/45 98 Mechanical Ventilator 100 01/27/17 00:00 97.4 74 18 107/44 98 Mechanical Ventilator 100 01/27/17 00:00 74 01/27/17 00:00 100 01/26/17 23:30 71 18 106/45 98 Mechanical Ventilator 100 01/26/17 23:30 70 18 60 01/26/17 23:00 72 18 107/45 99 Mechanical Ventilator 100 01/26/17 22:30 72 18 108/46 99 Mechanical Ventilator 100 01/26/17 22:00 72 18 104/44 99 Mechanical Ventilator 100 01/26/17 21:30 74 18 104/46 99 Mechanical Ventilator 100 01/26/17 21:00 79 18 107/46 100 Mechanical Ventilator 100 01/26/17 20:31 80 18 60 01/26/17 20:30 80 18 111/46 100 Mechanical Ventilator 60 01/26/17 20:00 79 18 107/46 100 Mechanical Ventilator 60 01/26/17 20:00 79 01/26/17 20:00 40 01/26/17 19:30 81 18 40 01/26/17 19:30 69 18 107/45 100 Mechanical Ventilator 60 01/26/17 19:00 97.8 67 18 103/48 100 Mechanical Ventilator 60 01/26/17 18:30 69 18 99/47 100 Mechanical Ventilator 60 01/26/17 18:00 72 18 90/56 100 Mechanical Ventilator 60 01/26/17 17:34 80 18 100 01/26/17 17:30 78 18 100/42 99 Mechanical Ventilator 60 Intake and Output 01/27/17 01/28/17 19:00 07:00 Intake Total 495 ml Output Total 35 ml Balance 460 ml IV Total 495 ml Output Urine Total 35 ml Laboratory Tests Test 01/27/17 05:10 01/27/17 09:29 White Blood Count 15.9 K/UL (4.8-10.8) H Red Blood Count 2.91 M/UL (4.20-5.40) L Hemoglobin 9.4 G/DL (12.0-16.0) L Hematocrit 28.4 % (37.0-47.0) L Mean Corpuscular Volume 98 FL (80-99) Mean Corpuscular Hemoglobin 32.4 PG (27.0-31.0) H Mean Corpuscular Hemoglobin Concent 33.1 G/DL (32.0-36.0) Red Cell Distribution Width 16.2 % (11.6-14.8) H Platelet Count 27 K/UL (150-450) L Mean Platelet Volume 13.0 FL (6.5-10.1) H Neutrophils (%) (Auto) % (45.0-75.0) Lymphocytes (%) (Auto) % (20.0-45.0) Monocytes (%) (Auto) % (1.0-10.0) Eosinophils (%) (Auto) % (0.0-3.0) Basophils (%) (Auto) % (0.0-2.0) Differential Total Cells Counted 100 Neutrophils % (Manual) 81 % (45-75) H Lymphocytes % (Manual) 10 % (20-45) L Monocytes % (Manual) 6 % (1-10) Eosinophils % (Manual) 1 % (0-3) Basophils % (Manual) 0 % (0-2) Band Neutrophils 2 % (0-8) Platelet Estimate Decreased L Platelet Morphology Normal Hypochromasia 1+ Anisocytosis 1+ Macrocytosis 1+ Sodium Level 136 MMOL/L (136-145) Potassium Level 3.9 MMOL/L (3.5-5.1) Chloride Level 108 MMOL/L (98-107) H Carbon Dioxide Level 16 MMOL/L (21-32) L Anion Gap 12 (5-15) Blood Urea Nitrogen 68 mg/dL (7-18) H Creatinine 4.8 MG/DL (0.55-1.30) H Estimat Glomerular Filtration Rate mL/min (>60) Glucose Level 176 MG/DL (74-106) H Uric Acid 8.6 MG/DL (2.6-7.2) H Calcium Level 9.7 MG/DL (8.5-10.1) Phosphorus Level 3.8 MG/DL (2.5-4.9) Magnesium Level 2.2 MG/DL (1.8-2.4) Total Bilirubin 1.3 MG/DL (0.2-1.0) H Direct Bilirubin 0.7 MG/DL (0.0-0.3) H Aspartate Amino Transf (AST/SGOT) 41 U/L (15-37) H Alanine Aminotransferase (ALT/SGPT) 9 U/L (12-78) L Alkaline Phosphatase 141 U/L (46-116) H C-Reactive Protein, Quantitative 12.2 mg/dL (0.00-0.90) H Pro-B-Type Natriuretic Peptide 62745 (0-125) H Total Protein 5.5 G/DL (6.4-8.2) L Albumin 2.0 G/DL (3.4-5.0) L Globulin 3.5 g/dL Albumin/Globulin Ratio 0.6 (1.0-2.7) L Random Vancomycin Level 24.4 ug/mL Arterial Blood pH 7.216 (7.350-7.450) Arterial Blood Partial Pressure CO2 34.2 mmHg (35.0-45.0) L Arterial Blood Partial Pressure O2 97.1 mmHg (75.0-100.0) Arterial Blood HCO3 13.6 mmol/L (22.0-26.0) L Arterial Blood Oxygen Saturation 96.5 % (92.0-98.0) Arterial Blood Base Excess -13.2 Bon Test Positive Current Medications Medications (Trade) Dose Ordered Sig/Pavel Route PRN Reason Start Time Stop Time Status Last Admin Dose Admin Acetaminophen (Tylenol) 650 mg Q4H PRN ORAL T>100.5 01/21/17 14:30 02/15/17 14:29 Albuterol/ Ipratropium (DuoNeb 0.5-3(2.5)mg/3ml) 3 ml Q4H PRN HHN Shortness of Breath 01/21/17 14:30 01/28/17 14:29 Ceftaroline Fosamil 200 mg/ Dextrose 110 ml @ 220 mls/hr Q12HR@1100,2300 IV 01/27/17 20:00 02/03/17 19:59 Chlorhexidine Gluconate (Dianne-Hex 2%) 1 applic DAILY@2000 TOPIC 01/25/17 20:00 02/24/17 19:59 01/26/17 19:40 Clotrimazole (Lotrimin) 1 applic EVERY 12 HOURS TOPIC 01/21/17 21:00 02/18/17 13:59 01/27/17 08:35 Dextrose (Dextrose 50%) STAT PRN IV Hypoglycemia 01/27/17 07:45 02/26/17 07:44 Dextrose/Sodium Chloride 1,000 ml @ 75 mls/hr [id number] IV 01/26/17 13:15 02/25/17 13:14 01/27/17 16:13 Dopamine HCl/ Dextrose 250 ml @ 0 mls/hr Q24H IV 01/25/17 11:15 02/24/17 11:14 01/27/17 10:49 Ertapenem 0.5 gm/ Sodium Chloride 55 ml @ 110 mls/hr Q24H IVPB 01/28/17 09:00 02/02/17 08:59 Insulin Aspart (NovoLOG) BEFORE MEALS AND HS SUBQ 01/27/17 11:30 02/26/17 11:29 01/27/17 12:26 Lactulose (Cephulac) 10 gm BID ORAL 01/23/17 09:00 02/18/17 12:59 01/27/17 08:35 Lorazepam (Ativan 2mg/ml 1ml) 2 mg Q4H PRN IV For Anxiety 01/22/17 06:45 01/29/17 06:44 01/23/17 09:10 Metoclopramide HCl (Reglan) 10 mg Q6H PRN IVP Nausea & Vomiting 01/25/17 22:30 02/24/17 22:29 01/27/17 12:27 Midodrine (Pro-Amatine) 10 mg THREE TIMES A DAY ORAL 01/26/17 18:00 02/25/17 17:59 01/27/17 12:26 Morphine Sulfate (Morphine Sulfate) 4 mg Q4H PRN IVP For Pain 01/22/17 06:45 01/29/17 06:44 Nitroglycerin (Ntg) 0.4 mg Q5MIN X 3 DOSES PRN SL Prn Chest Pain 01/21/17 14:30 02/15/17 14:29 Nystatin (Nystop Powder) 1 applic THREE TIMES A DAY TOPIC 01/22/17 13:00 02/21/17 12:59 01/27/17 12:26 Ondansetron HCl (Zofran) 4 mg Q6H PRN IVP Nausea & Vomiting 01/21/17 14:30 02/15/17 14:29 Pantoprazole (Protonix) 40 mg EVERY 12 HOURS IVP 01/21/17 21:00 02/20/17 20:59 01/27/17 08:34 Polyethylene Glycol (Miralax) 17 gm DAILYPRN PRN ORAL Constipation 01/21/17 14:00 02/17/17 13:59 Vancomycin HCl (Vanco rx to dose) 1 ea DAILY PRN MISC Per rx protocol 01/22/17 09:00 02/18/17 11:44 Vancomycin HCl (Vancomycin) 125 mg BID ORAL 01/23/17 19:30 01/30/17 19:29 01/27/17 08:35 Vancomycin/Sodium Chloride 250 ml @ 166.667 mls/hr ONCE ONCE IVPB 01/28/17 10:00 01/28/17 11:29 Height (Feet): 5 Height (Inches): 6.00 Weight (Pounds): 280 General Appearance: no apparent distress, lethargic, obese Psychiatric Orientation: disoriented Affect: flat Oj Medel M.D. Jan 27, 2017 17:29
--- NOTE | 2017-01-27 17:49 | Cardiac Electrophysiology PN ---
Assessment/Plan Assessment/Plan 1. Congestive heart failure and very high BNP due to diastolic dysfunction. Ejection fraction 60% to 65%. EKG showed normal sinus rhythm with low voltage QRS. 2. Shock on Dopamine and Midodrine and Abx 3. Urinary tract infection. 4. Diabetes. 5. Hyperlipidemia. 6. Cirrhosis 7. Anemia with hemoglobin of 8. 8. Hypernatremia with NA 160 and renal failure. Down to 133 9. DNR and DNI 10. ESRD on HD DW RN Subjective Subjective In ICU on vent on 2 mcg of Dopamine. Unresponsive on Vent. Had Dialysis catheter placement. DNR and DNI Objective Last 24 Hour Vital Signs Date Time Temp Pulse Resp B/P (MAP) Pulse Ox O2 Delivery O2 Flow Rate FiO2 01/27/17 17:11 64 20 60 01/27/17 16:00 66 01/27/17 16:00 60 01/27/17 15:02 78 20 60 01/27/17 13:00 73 20 163/63 97 Mechanical Ventilator 60 01/27/17 12:45 74 20 60 01/27/17 12:00 64 01/27/17 12:00 97.0 61 20 137/52 95 Mechanical Ventilator 60 01/27/17 12:00 60 01/27/17 11:00 71 20 146/54 94 Mechanical Ventilator 60 01/27/17 10:49 75/49 01/27/17 10:33 74 20 60 01/27/17 10:30 60 01/27/17 10:00 75 18 114/47 94 Mechanical Ventilator 60 01/27/17 09:00 74 18 116/49 93 Mechanical Ventilator 60 01/27/17 08:51 75 18 60 01/27/17 08:00 78 01/27/17 08:00 60 01/27/17 08:00 97.5 75 18 114/49 94 Mechanical Ventilator 60 01/27/17 07:00 81 26 112/49 94 Mechanical Ventilator 60 01/27/17 07:00 78 17 112/49 94 Mechanical Ventilator 100 01/27/17 06:42 80 18 60 01/27/17 06:00 81 17 111/48 95 Mechanical Ventilator 100 01/27/17 05:08 78 18 60 01/27/17 05:00 80 17 106/48 95 Mechanical Ventilator 100 01/27/17 04:00 97.6 80 18 113/50 95 Mechanical Ventilator 100 01/27/17 04:00 80 01/27/17 04:00 60 01/27/17 03:25 77 18 60 01/27/17 03:00 76 18 109/50 97 Mechanical Ventilator 100 01/27/17 02:00 74 18 102/42 98 Mechanical Ventilator 100 01/27/17 01:08 72 18 60 01/27/17 01:00 74 18 104/45 98 Mechanical Ventilator 100 01/27/17 00:00 97.4 74 18 107/44 98 Mechanical Ventilator 100 01/27/17 00:00 74 01/27/17 00:00 100 01/26/17 23:30 71 18 106/45 98 Mechanical Ventilator 100 01/26/17 23:30 70 18 60 01/26/17 23:00 72 18 107/45 99 Mechanical Ventilator 100 01/26/17 22:30 72 18 108/46 99 Mechanical Ventilator 100 01/26/17 22:00 72 18 104/44 99 Mechanical Ventilator 100 01/26/17 21:30 74 18 104/46 99 Mechanical Ventilator 100 01/26/17 21:00 79 18 107/46 100 Mechanical Ventilator 100 01/26/17 20:31 80 18 60 01/26/17 20:30 80 18 111/46 100 Mechanical Ventilator 60 01/26/17 20:00 79 18 107/46 100 Mechanical Ventilator 60 01/26/17 20:00 79 01/26/17 20:00 40 01/26/17 19:30 81 18 40 01/26/17 19:30 69 18 107/45 100 Mechanical Ventilator 60 01/26/17 19:00 97.8 67 18 103/48 100 Mechanical Ventilator 60 01/26/17 18:30 69 18 99/47 100 Mechanical Ventilator 60 01/26/17 18:00 72 18 90/56 100 Mechanical Ventilator 60 Intake and Output 01/27/17 01/28/17 19:00 07:00 Intake Total 495 ml Output Total 35 ml Balance 460 ml IV Total 495 ml Output Urine Total 35 ml Laboratory Tests Test 01/27/17 05:10 01/27/17 09:29 White Blood Count 15.9 K/UL (4.8-10.8) H Red Blood Count 2.91 M/UL (4.20-5.40) L Hemoglobin 9.4 G/DL (12.0-16.0) L Hematocrit 28.4 % (37.0-47.0) L Mean Corpuscular Volume 98 FL (80-99) Mean Corpuscular Hemoglobin 32.4 PG (27.0-31.0) H Mean Corpuscular Hemoglobin Concent 33.1 G/DL (32.0-36.0) Red Cell Distribution Width 16.2 % (11.6-14.8) H Platelet Count 27 K/UL (150-450) L Mean Platelet Volume 13.0 FL (6.5-10.1) H Neutrophils (%) (Auto) % (45.0-75.0) Lymphocytes (%) (Auto) % (20.0-45.0) Monocytes (%) (Auto) % (1.0-10.0) Eosinophils (%) (Auto) % (0.0-3.0) Basophils (%) (Auto) % (0.0-2.0) Differential Total Cells Counted 100 Neutrophils % (Manual) 81 % (45-75) H Lymphocytes % (Manual) 10 % (20-45) L Monocytes % (Manual) 6 % (1-10) Eosinophils % (Manual) 1 % (0-3) Basophils % (Manual) 0 % (0-2) Band Neutrophils 2 % (0-8) Platelet Estimate Decreased L Platelet Morphology Normal Hypochromasia 1+ Anisocytosis 1+ Macrocytosis 1+ Sodium Level 136 MMOL/L (136-145) Potassium Level 3.9 MMOL/L (3.5-5.1) Chloride Level 108 MMOL/L (98-107) H Carbon Dioxide Level 16 MMOL/L (21-32) L Anion Gap 12 (5-15) Blood Urea Nitrogen 68 mg/dL (7-18) H Creatinine 4.8 MG/DL (0.55-1.30) H Estimat Glomerular Filtration Rate mL/min (>60) Glucose Level 176 MG/DL (74-106) H Uric Acid 8.6 MG/DL (2.6-7.2) H Calcium Level 9.7 MG/DL (8.5-10.1) Phosphorus Level 3.8 MG/DL (2.5-4.9) Magnesium Level 2.2 MG/DL (1.8-2.4) Total Bilirubin 1.3 MG/DL (0.2-1.0) H Direct Bilirubin 0.7 MG/DL (0.0-0.3) H Aspartate Amino Transf (AST/SGOT) 41 U/L (15-37) H Alanine Aminotransferase (ALT/SGPT) 9 U/L (12-78) L Alkaline Phosphatase 141 U/L (46-116) H C-Reactive Protein, Quantitative 12.2 mg/dL (0.00-0.90) H Pro-B-Type Natriuretic Peptide 90395 (0-125) H Total Protein 5.5 G/DL (6.4-8.2) L Albumin 2.0 G/DL (3.4-5.0) L Globulin 3.5 g/dL Albumin/Globulin Ratio 0.6 (1.0-2.7) L Random Vancomycin Level 24.4 ug/mL Arterial Blood pH 7.216 (7.350-7.450) Arterial Blood Partial Pressure CO2 34.2 mmHg (35.0-45.0) L Arterial Blood Partial Pressure O2 97.1 mmHg (75.0-100.0) Arterial Blood HCO3 13.6 mmol/L (22.0-26.0) L Arterial Blood Oxygen Saturation 96.5 % (92.0-98.0) Arterial Blood Base Excess -13.2 Bon Test Positive Microbiology Date/Time Source Procedure Growth Status 01/26/17 13:00 Sputum Gram Stain - Final Resulted 01/26/17 13:00 Sputum Culture - Preliminary Gram Negative Bacillus 1 Resulted 01/26/17 13:00 Urine,Clean Catch Urine Culture - Preliminary Resulted Objective HEAD AND NECK: Shows no JVD.Orally intubated. Right IJ Maharkar Catheter in place LUNGS: Coarse rhonchi CARDIOVASCULAR: Regular S1 and S2 with no gallop or murmur. ABDOMEN: Soft and nontender and obese. EXTREMITIES: 2+ pitting edema. DEAN SHAW Jan 27, 2017 17:49
[2017-01-27] MEDS ORDERED: NS IV ONE (18:00)
[2017-01-27] MEDS ORDERED: DAPTOMYCIN IV ONE (18:00)
--- NOTE | 2017-01-27 18:46 | General Progress Note ---
Assessment/Plan Assessment/Plan ASSESSMENT AND RECOMMENDATIONS 1.Thrombocytopenia 2/2 sepsis --> give plts if below 10k or if below 20k and febrile --> ID following 2. Coagulopathy secondary to underlying liver disease. 3. Thrombocytopenia secondary to underlying splenomegaly. 4. Anemia 2/2 chronic disease --> s/p transfusion --> Watch HH, transfuse if below 8 5. Leukocytosis secondary to underlying infection 6. Diabetes mellitus. Continue to closely monitor. 7. Altered mental status 8. Bradycardia Subjective ROS Limited/Unobtainable: Yes Allergies: Coded Allergies: PENICILLINS (Unverified Allergy, Unknown, 03/22/15) Subjective intubated, on dopamine, unresponsive Objective Last 24 Hour Vital Signs Date Time Temp Pulse Resp B/P (MAP) Pulse Ox O2 Delivery O2 Flow Rate FiO2 01/27/17 18:00 69 20 145/51 98 Mechanical Ventilator 60 01/27/17 17:11 64 20 60 01/27/17 17:00 69 19 134/59 99 Mechanical Ventilator 60 01/27/17 16:00 96.8 64 20 168/71 96 Mechanical Ventilator 60 01/27/17 16:00 66 01/27/17 16:00 60 01/27/17 15:02 78 20 60 01/27/17 15:00 67 20 140/45 97 Mechanical Ventilator 60 01/27/17 14:00 70 19 150/63 99 Mechanical Ventilator 60 01/27/17 13:00 73 20 163/63 97 Mechanical Ventilator 60 01/27/17 12:45 74 20 60 01/27/17 12:00 64 01/27/17 12:00 97.0 61 20 137/52 95 Mechanical Ventilator 60 01/27/17 12:00 60 01/27/17 11:00 71 20 146/54 94 Mechanical Ventilator 60 01/27/17 10:49 75/49 01/27/17 10:33 74 20 60 01/27/17 10:30 60 01/27/17 10:00 75 18 114/47 94 Mechanical Ventilator 60 01/27/17 09:00 74 18 116/49 93 Mechanical Ventilator 60 01/27/17 08:51 75 18 60 01/27/17 08:00 78 01/27/17 08:00 60 01/27/17 08:00 97.5 75 18 114/49 94 Mechanical Ventilator 60 01/27/17 07:00 81 26 112/49 94 Mechanical Ventilator 60 01/27/17 07:00 78 17 112/49 94 Mechanical Ventilator 100 01/27/17 06:42 80 18 60 01/27/17 06:00 81 17 111/48 95 Mechanical Ventilator 100 01/27/17 05:08 78 18 60 01/27/17 05:00 80 17 106/48 95 Mechanical Ventilator 100 01/27/17 04:00 97.6 80 18 113/50 95 Mechanical Ventilator 100 01/27/17 04:00 80 01/27/17 04:00 60 01/27/17 03:25 77 18 60 01/27/17 03:00 76 18 109/50 97 Mechanical Ventilator 100 01/27/17 02:00 74 18 102/42 98 Mechanical Ventilator 100 01/27/17 01:08 72 18 60 01/27/17 01:00 74 18 104/45 98 Mechanical Ventilator 100 01/27/17 00:00 97.4 74 18 107/44 98 Mechanical Ventilator 100 01/27/17 00:00 74 01/27/17 00:00 100 01/26/17 23:30 71 18 106/45 98 Mechanical Ventilator 100 01/26/17 23:30 70 18 60 01/26/17 23:00 72 18 107/45 99 Mechanical Ventilator 100 01/26/17 22:30 72 18 108/46 99 Mechanical Ventilator 100 01/26/17 22:00 72 18 104/44 99 Mechanical Ventilator 100 01/26/17 21:30 74 18 104/46 99 Mechanical Ventilator 100 01/26/17 21:00 79 18 107/46 100 Mechanical Ventilator 100 01/26/17 20:31 80 18 60 01/26/17 20:30 80 18 111/46 100 Mechanical Ventilator 60 01/26/17 20:00 79 18 107/46 100 Mechanical Ventilator 60 01/26/17 20:00 79 01/26/17 20:00 40 01/26/17 19:30 81 18 40 01/26/17 19:30 69 18 107/45 100 Mechanical Ventilator 60 01/26/17 19:00 97.8 67 18 103/48 100 Mechanical Ventilator 60 Intake and Output 01/27/17 01/28/17 19:00 07:00 Intake Total 495 ml Output Total 35 ml Balance 460 ml IV Total 495 ml Output Urine Total 35 ml Laboratory Tests 01/27/17 05:10: White Blood Count 15.9H, Red Blood Count 2.91L, Hemoglobin 9.4L, Hematocrit 28.4L, Mean Corpuscular Volume 98, Mean Corpuscular Hemoglobin 32.4H, Mean Corpuscular Hemoglobin Concent 33.1, Red Cell Distribution Width 16.2H, Platelet Count 27L, Mean Platelet Volume 13.0H, Neutrophils (%) (Auto) , Lymphocytes (%) (Auto) , Monocytes (%) (Auto) , Eosinophils (%) (Auto) , Basophils (%) (Auto) , Differential Total Cells Counted 100, Neutrophils % ( Manual) 81H, Lymphocytes % (Manual) 10L, Monocytes % (Manual) 6, Eosinophils % ( Manual) 1, Basophils % (Manual) 0, Band Neutrophils 2, Platelet Estimate DecreasedL, Platelet Morphology Normal, Hypochromasia 1+, Anisocytosis 1+, Macrocytosis 1+, Sodium Level 136, Potassium Level 3.9, Chloride Level 108H, Carbon Dioxide Level 16L, Anion Gap 12, Blood Urea Nitrogen 68H, Creatinine 4.8H , Estimat Glomerular Filtration Rate , Glucose Level 176H, Uric Acid 8.6H, Calcium Level 9.7, Phosphorus Level 3.8, Magnesium Level 2.2, Total Bilirubin 1.3H, Direct Bilirubin 0.7H, Aspartate Amino Transf (AST/SGOT) 41H, Alanine Aminotransferase (ALT/SGPT) 9L, Alkaline Phosphatase 141H, C-Reactive Protein, Quantitative 12.2H, Pro-B-Type Natriuretic Peptide 29346B, Total Protein 5.5L, Albumin 2.0L, Globulin 3.5, Albumin/Globulin Ratio 0.6L, Random Vancomycin Level 24.4 01/27/17 09:29: Arterial Blood pH 7.216*L, Arterial Blood Partial Pressure CO2 34.2L, Arterial Blood Partial Pressure O2 97.1, Arterial Blood HCO3 13.6L, Arterial Blood Oxygen Saturation 96.5, Arterial Blood Base Excess -13.2, Bon Test Positive Height (Feet): 5 Height (Inches): 6.00 Weight (Pounds): 280 General Appearance: no apparent distress EENT: normal ENT inspection Neck: non-tender, normal alignment Cardiovascular: no gallop/murmur Respiratory/Chest: other - vent Abdomen: non tender Extremities: non-tender Chriss Pat Jan 27, 2017 18:46
--- NOTE | 2017-01-27 19:42 | General Progress Note ---
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 - AMS Recommendations - Lactulose & Xifaxan - follow labs - Change tube feeding - Nephro at 20, advance tomorrow - HD Subjective Allergies: Coded Allergies: PENICILLINS (Unverified Allergy, Unknown, 03/22/15) Subjective intubated seen in ICU unresponsive Objective Last 24 Hour Vital Signs Date Time Temp Pulse Resp B/P (MAP) Pulse Ox O2 Delivery O2 Flow Rate FiO2 01/27/17 19:30 70 20 60 01/27/17 19:00 69 20 146/52 98 Mechanical Ventilator 60 01/27/17 18:00 69 20 145/51 98 Mechanical Ventilator 60 01/27/17 17:11 64 20 60 01/27/17 17:00 69 19 134/59 99 Mechanical Ventilator 60 01/27/17 16:00 96.8 64 20 168/71 96 Mechanical Ventilator 60 01/27/17 16:00 66 01/27/17 16:00 60 01/27/17 15:02 78 20 60 01/27/17 15:00 67 20 140/45 97 Mechanical Ventilator 60 01/27/17 14:00 70 19 150/63 99 Mechanical Ventilator 60 01/27/17 13:00 73 20 163/63 97 Mechanical Ventilator 60 01/27/17 12:45 74 20 60 01/27/17 12:00 64 01/27/17 12:00 97.0 61 20 137/52 95 Mechanical Ventilator 60 01/27/17 12:00 60 01/27/17 11:00 71 20 146/54 94 Mechanical Ventilator 60 01/27/17 10:49 75/49 01/27/17 10:33 74 20 60 01/27/17 10:30 60 01/27/17 10:00 75 18 114/47 94 Mechanical Ventilator 60 01/27/17 09:00 74 18 116/49 93 Mechanical Ventilator 60 01/27/17 08:51 75 18 60 01/27/17 08:00 78 01/27/17 08:00 60 01/27/17 08:00 97.5 75 18 114/49 94 Mechanical Ventilator 60 01/27/17 07:00 81 26 112/49 94 Mechanical Ventilator 60 01/27/17 07:00 78 17 112/49 94 Mechanical Ventilator 100 01/27/17 06:42 80 18 60 01/27/17 06:00 81 17 111/48 95 Mechanical Ventilator 100 01/27/17 05:08 78 18 60 01/27/17 05:00 80 17 106/48 95 Mechanical Ventilator 100 01/27/17 04:00 97.6 80 18 113/50 95 Mechanical Ventilator 100 01/27/17 04:00 80 01/27/17 04:00 60 01/27/17 03:25 77 18 60 01/27/17 03:00 76 18 109/50 97 Mechanical Ventilator 100 01/27/17 02:00 74 18 102/42 98 Mechanical Ventilator 100 01/27/17 01:08 72 18 60 01/27/17 01:00 74 18 104/45 98 Mechanical Ventilator 100 01/27/17 00:00 97.4 74 18 107/44 98 Mechanical Ventilator 100 01/27/17 00:00 74 01/27/17 00:00 100 01/26/17 23:30 71 18 106/45 98 Mechanical Ventilator 100 01/26/17 23:30 70 18 60 01/26/17 23:00 72 18 107/45 99 Mechanical Ventilator 100 01/26/17 22:30 72 18 108/46 99 Mechanical Ventilator 100 01/26/17 22:00 72 18 104/44 99 Mechanical Ventilator 100 01/26/17 21:30 74 18 104/46 99 Mechanical Ventilator 100 01/26/17 21:00 79 18 107/46 100 Mechanical Ventilator 100 01/26/17 20:31 80 18 60 01/26/17 20:30 80 18 111/46 100 Mechanical Ventilator 60 01/26/17 20:00 79 18 107/46 100 Mechanical Ventilator 60 01/26/17 20:00 79 01/26/17 20:00 40 Intake and Output 01/27/17 01/28/17 19:00 07:00 Intake Total 495 ml Output Total 35 ml Balance 460 ml IV Total 495 ml Output Urine Total 35 ml Laboratory Tests 01/27/17 05:10: White Blood Count 15.9H, Red Blood Count 2.91L, Hemoglobin 9.4L, Hematocrit 28.4L, Mean Corpuscular Volume 98, Mean Corpuscular Hemoglobin 32.4H, Mean Corpuscular Hemoglobin Concent 33.1, Red Cell Distribution Width 16.2H, Platelet Count 27L, Mean Platelet Volume 13.0H, Neutrophils (%) (Auto) , Lymphocytes (%) (Auto) , Monocytes (%) (Auto) , Eosinophils (%) (Auto) , Basophils (%) (Auto) , Differential Total Cells Counted 100, Neutrophils % ( Manual) 81H, Lymphocytes % (Manual) 10L, Monocytes % (Manual) 6, Eosinophils % ( Manual) 1, Basophils % (Manual) 0, Band Neutrophils 2, Platelet Estimate DecreasedL, Platelet Morphology Normal, Hypochromasia 1+, Anisocytosis 1+, Macrocytosis 1+, Sodium Level 136, Potassium Level 3.9, Chloride Level 108H, Carbon Dioxide Level 16L, Anion Gap 12, Blood Urea Nitrogen 68H, Creatinine 4.8H , Estimat Glomerular Filtration Rate , Glucose Level 176H, Uric Acid 8.6H, Calcium Level 9.7, Phosphorus Level 3.8, Magnesium Level 2.2, Total Bilirubin 1.3H, Direct Bilirubin 0.7H, Aspartate Amino Transf (AST/SGOT) 41H, Alanine Aminotransferase (ALT/SGPT) 9L, Alkaline Phosphatase 141H, C-Reactive Protein, Quantitative 12.2H, Pro-B-Type Natriuretic Peptide 73055K, Total Protein 5.5L, Albumin 2.0L, Globulin 3.5, Albumin/Globulin Ratio 0.6L, Random Vancomycin Level 24.4 01/27/17 09:29: Arterial Blood pH 7.216*L, Arterial Blood Partial Pressure CO2 34.2L, Arterial Blood Partial Pressure O2 97.1, Arterial Blood HCO3 13.6L, Arterial Blood Oxygen Saturation 96.5, Arterial Blood Base Excess -13.2, Bon Test Positive Height (Feet): 5 Height (Inches): 6.00 Weight (Pounds): 280 Objective Obese WW NCAT supple CTA RRR soft ND NT (+) edema confused JENNIFERKIERSTEN JORDAN Jan 27, 2017 19:42
[2017-01-27] MEDS: D5W IV SCH (20:01)
[2017-01-27] MEDS: Dyna-Hex 2% Top Sol 2oz TOPIC SCH (20:01)
[2017-01-27] MEDS: CEFTAROLINE IV SCH (20:01)
[2017-01-28] VITALS (23 sets, daily range): BP systolic 106–168; BP diastolic 37–67
[2017-01-28 01:35] LABS: APTT 1:1 MIX SALINE 121.9 sec (Not Estab.); APTT 1:1 NORMAL PLASMA 29.2 sec (22.9-30.2); APTT 1:1NP MIX 60M INCUBATION 33.8 sec (22.9-30.2); APTT 1:1NP MIX CONTROL 35.2 sec (22.9-30.2)
[2017-01-28] MEDS: D5NS 1,000 ML IV SCH ×2 (05:28→18:23)
[2017-01-28] MEDS: NovoLOG Insulin Flexpen SUBQ SCH ×4 (05:31→23:55)
[2017-01-28 06:31] LABS: INR 1.9 (0.9-1.1)
[2017-01-28 06:32] LABS: HEMATOCRIT 30.2 % (37.0-47.0); MEAN CORPUSCULAR VOLUME 98 FL (80-99); PLATELET COUNT 27 K/UL (150-450); RED BLOOD COUNT 3.09 M/UL (4.20-5.40); RED CELL DISTRIBUTION WIDTH 16.4 % (11.6-14.8)
[2017-01-28 06:55] LABS: WHITE BLOOD COUNT 22.4 K/UL (4.8-10.8)
[2017-01-28 07:00] LABS: ALANINE AMINOTRANSFERASE 9 U/L (12-78); ALBUMIN 1.8 G/DL (3.4-5.0); ALBUMIN/GLOBULIN RATIO 0.5 (1.0-2.7); ALKALINE PHOSPHATASE 163 U/L (46-116); ANION GAP 13 (5-15); ASPARTATE AMINO TRANSFERASE 51 U/L (15-37); BILIRUBIN,TOTAL 1.4 MG/DL (0.2-1.0); BLOOD UREA NITROGEN 73 mg/dL (7-18); CALCIUM 9.6 MG/DL (8.5-10.1); CARBON DIOXIDE 15 MMOL/L (21-32); CHLORIDE 105 MMOL/L (98-107); CREATININE 4.9 MG/DL (0.55-1.30); POTASSIUM 3.5 MMOL/L (3.5-5.1); SODIUM 133 MMOL/L (136-145)
[2017-01-28] MEDS: Midodrine 10mg tab ORAL SCH ×2 (09:00→12:59)
[2017-01-28] MEDS: Ertapenem 0.5 GM in NS 55 ML IVPB SCH (09:00)
[2017-01-28] MEDS: Nystatin Powder 100,000 units/gm 15gm TOPIC SCH ×3 (09:20→18:22)
[2017-01-28 09:21] LABS: CREATINE KINASE 35 U/L (26-308)
[2017-01-28] MEDS: Pantoprazole Inj IVP SCH ×2 (09:21→20:55)
[2017-01-28] MEDS: Lactulose 10gm/15ml UDC ORAL SCH ×2 (09:22→17:41)
[2017-01-28] MEDS: Vancomycin oral 125mg/2.5ml ORAL SCH ×2 (09:22→18:21)
--- NOTE | 2017-01-28 09:35 | General Progress Note ---
Assessment/Plan Status: unchanged Status Narrative Cr 4.9- On dopamin for low HR Assessment/Plan Acute on chronic renal failure- multifactorial CHF DM HTN Sepsis Now: Acute respiratory failure- Intubated - Altered level of consciousness - ESBL (extended spectrum beta-lactamase) producing bacteria infection - Cardiomegaly - DM (diabetes mellitus) - HTN (hypertension) - UTI (urinary tract infection) - Anemia - High Cholestrol - COPD - YELENA - Fatty liver Plan: has dialysis cath- due for dialysis Transfuse as needed consider dialysis - daughter requests Optimize cardiac and pulmonary status 2D echo results noted avoid nephrotoxics monitor renal parameters Urine studies per orders poor prognosis Subjective ROS Limited/Unobtainable: Yes Allergies: Coded Allergies: PENICILLINS (Unverified Allergy, Unknown, 03/22/15) Objective Last 24 Hour Vital Signs Date Time Temp Pulse Resp B/P (MAP) Pulse Ox O2 Delivery O2 Flow Rate FiO2 01/28/17 08:36 65 20 60 01/28/17 07:00 64 20 147/65 99 Mechanical Ventilator 60 01/28/17 06:30 64 20 60 01/28/17 06:00 67 20 144/50 99 Mechanical Ventilator 60 01/28/17 05:00 69 20 135/53 99 Mechanical Ventilator 60 01/28/17 04:31 68 20 60 01/28/17 04:00 60 01/28/17 04:00 54 01/28/17 04:00 97.3 67 19 106/37 97 Mechanical Ventilator 60 01/28/17 03:00 67 19 135/45 97 Mechanical Ventilator 60 01/28/17 02:58 63 20 60 01/28/17 02:00 65 20 127/46 98 Mechanical Ventilator 60 01/28/17 01:27 71 20 60 01/28/17 01:00 72 20 117/39 98 Mechanical Ventilator 60 01/28/17 00:00 60 01/28/17 00:00 97.3 75 20 136/46 97 Mechanical Ventilator 60 01/28/17 00:00 73 01/27/17 23:30 73 20 60 01/27/17 23:00 68 19 137/47 98 Mechanical Ventilator 60 01/27/17 22:00 68 19 136/45 98 Mechanical Ventilator 60 01/27/17 21:30 68 20 60 01/27/17 21:27 90 18 Mechanical Ventilator 40 01/27/17 21:00 68 19 142/50 98 Mechanical Ventilator 60 01/27/17 20:00 97.6 69 20 146/52 98 Mechanical Ventilator 60 01/27/17 20:00 60 01/27/17 20:00 74 01/27/17 19:30 70 20 60 01/27/17 19:00 69 20 146/52 98 Mechanical Ventilator 60 01/27/17 18:00 69 20 145/51 98 Mechanical Ventilator 60 01/27/17 17:11 64 20 60 01/27/17 17:00 69 19 134/59 99 Mechanical Ventilator 60 01/27/17 16:00 96.8 64 20 168/71 96 Mechanical Ventilator 60 01/27/17 16:00 66 01/27/17 16:00 60 01/27/17 15:02 78 20 60 01/27/17 15:00 67 20 140/45 97 Mechanical Ventilator 60 01/27/17 14:00 70 19 150/63 99 Mechanical Ventilator 60 01/27/17 13:00 73 20 163/63 97 Mechanical Ventilator 60 01/27/17 12:45 74 20 60 01/27/17 12:00 64 01/27/17 12:00 97.0 61 20 137/52 95 Mechanical Ventilator 60 01/27/17 12:00 60 01/27/17 11:00 71 20 146/54 94 Mechanical Ventilator 60 01/27/17 10:49 75/49 01/27/17 10:33 74 20 60 01/27/17 10:30 60 01/27/17 10:00 75 18 114/47 94 Mechanical Ventilator 60 Laboratory Tests 01/28/17 04:50: White Blood Count 22.4*H, Red Blood Count 3.09L, Hemoglobin 10.0L, Hematocrit 30.2L, Mean Corpuscular Volume 98, Mean Corpuscular Hemoglobin 32.4H, Mean Corpuscular Hemoglobin Concent 33.1, Red Cell Distribution Width 16.4H, Platelet Count 27L, Mean Platelet Volume 10.8H, Neutrophils (%) (Auto) , Lymphocytes (%) (Auto) , Monocytes (%) (Auto) , Eosinophils (%) (Auto) , Basophils (%) (Auto) , Neutrophils % (Manual) [Pending], Lymphocytes % (Manual) [Pending], Platelet Estimate [Pending], Platelet Morphology [Pending], Prothrombin Time 20.4H, Prothromb Time International Ratio 1.9H, Activated Partial Thromboplast Time 52H, Sodium Level 133L, Potassium Level 3.5, Chloride Level 105, Carbon Dioxide Level 15L, Anion Gap 13, Blood Urea Nitrogen 73H, Creatinine 4.9H, Estimat Glomerular Filtration Rate , Glucose Level 185H, Lactic Acid Level 2.10, Uric Acid 8.3H, Calcium Level 9.6, Phosphorus Level 4.0 , Magnesium Level 2.2, Total Bilirubin 1.4H, Direct Bilirubin 0.0, Aspartate Amino Transf (AST/SGOT) 51H, Alanine Aminotransferase (ALT/SGPT) 9L, Alkaline Phosphatase 163H, Total Creatine Kinase 35, C-Reactive Protein, Quantitative 12.8H, Pro-B-Type Natriuretic Peptide [id number], Total Protein 5.5L, Albumin 1.8L, Globulin 3.7, Albumin/Globulin Ratio 0.5L Height (Feet): 5 Height (Inches): 6.00 Weight (Pounds): 289 EENT: other - intubated Cardiovascular: normal rate Respiratory/Chest: decreased breath sounds Abdomen: other - obese Edema: 2+ Arm (L), 2+ Arm (R), 2+ Leg (L), 2+ Leg (R), 2+ Pedal (L), 2+ Pedal ( R), 2+ Generalized Objective no other change ANDERS MOLINA Jan 28, 2017 09:35
[2017-01-28] MEDS ORDERED: Vancomycin 750mg/NS 250ml IVPB ONE (10:00)
--- NOTE | 2017-01-28 10:18 | Infectious Diseases Prog Note ---
Assessment/Plan Assessment/Plan Assesment: Encephalopathy- possibly multifactorial- hepatic encephalopathy, infection- worsening now due to hypercapnea (transferred to ICU 01/21), on bipap> intubated Acute respiratory failure s/p intubation - 2ry to hypercapnea, PNA; now ARDS -CXR 01/27: extensive bilateral pulmonary parenchymal interstitial and alveolar disease, pattern consistent with ARDS. Sepsis 2ry to PNA and Bacteremia HCAP 2ry to ESBL. E.coli -CXR 01/25: Extensive bilateral interstitial and airspace edema/infiltrates slightly increased in the right lung. Stable support lines and tubes. -CXR 01/23 : Interval worsening pulmonary edema. -repeat sp cx 01/26: +4 GNB (id and sensi pending), r/o PsA -Sp cx 01/22: +2 ESBK E.coli, +2 C. albicans (colonizer) MRSA bacteremia- ?source, r/o endocarditis; persistent bacteremia- no central lines except for HD cath that was placed 01/27 -01/16 04/23 BCx MRSA (S. Vanco JOSE A 1), repeat Bcx 01/19 Neg, 01/21 04/23 CoNS ( contaminant), 01/24 Bcx 04/23 GPC clusters -TTE 01/19(limited study): No aortic regurgitation.Trace mitral regurgitation.Mitral diastolic velocities suggest reduced left ventricular relaxation c/w diastolic dysfunction grade 1.Moderate tricuspid regurgitation. Leukocytosis, worsened -01/26. pyuria improving (WBC 10-15); ucx NTD -01/22 u/a WBC 30-40, ucx yeast (colonizer) -Sp cx ESBL E.coli, diaz (colonizer) Probable MDR UTI, pyuria, s/p Rx -u/a 01/16 WBC too many to count,nit neg ,leuk est +3; UCx x3 grew >100K MDR A.baumani complex (S. tigecycline/Minocycline, Polymixin B/Colistin), >100K PsA (S. Cefepime, Zosyn; R Cipro/Levo); a prior isolated on a ucx from the same day isolated MDR PsA (I. Cefepime, R ceftzadime, Meropenem; S. Tygecicine, amikacin) -renal u/s: Nondiagnostic exam Metabolic acidosis, worsening- 2ry to renal failure RAMYA on CKD, worsening Cirrhosis Anemia & thrombocytopenia DM type 2 Morbid obesity PLAN: -Continue Ertapenem for ESBL E. coli in sputum (abx d# /) -s/p 7d Cefepime 10/ -s/p 3d Amikacin 10/ -s/p 7d Minocycline 10 -Continue IV Vancomycin #10 For MRSA bacteremia (per pharmacy, renally dose); and continue IV Ceftaroline for additional MRSA coverage in view of recurrent bacteremia (Daptomycin not available at this moment per pharmacy) -requested susceptibilities for Daptomycin and Ceftaroline on 01/28 -I have considered Linezolid but her platelet counts are 27. -s/p 3d IV vanco 01/18 -continue prophylatic PO Vancomycin #6 -F/u ID GNR- will give one time dose of Amikacin given worsening WBC and for empiric coverage of Pseudomonas -repeat 2 sets of Bcx, cdiff. -f/u Repeat echo -if persistent bacteremia and if consistent with goals of care will need NAM -HD to be started today Discussed with RN, pharmacy and micro lab staff. Poor px; critically ill Subjective Allergies: Coded Allergies: PENICILLINS (Unverified Allergy, Unknown, 03/22/15) Subjective for HD today afebrile worsening leukocytosis and metabolic acidosis Objective Vital Signs Last 24 Hour Vital Signs Date Time Temp Pulse Resp B/P (MAP) Pulse Ox O2 Delivery O2 Flow Rate FiO2 01/28/17 08:36 65 20 60 01/28/17 07:00 64 20 147/65 99 Mechanical Ventilator 60 01/28/17 06:30 64 20 60 01/28/17 06:00 67 20 144/50 99 Mechanical Ventilator 60 01/28/17 05:00 69 20 135/53 99 Mechanical Ventilator 60 01/28/17 04:31 68 20 60 01/28/17 04:00 60 01/28/17 04:00 54 01/28/17 04:00 97.3 67 19 106/37 97 Mechanical Ventilator 60 01/28/17 03:00 67 19 135/45 97 Mechanical Ventilator 60 01/28/17 02:58 63 20 60 01/28/17 02:00 65 20 127/46 98 Mechanical Ventilator 60 01/28/17 01:27 71 20 60 01/28/17 01:00 72 20 117/39 98 Mechanical Ventilator 60 01/28/17 00:00 60 01/28/17 00:00 97.3 75 20 136/46 97 Mechanical Ventilator 60 01/28/17 00:00 73 01/27/17 23:30 73 20 60 01/27/17 23:00 68 19 137/47 98 Mechanical Ventilator 60 01/27/17 22:00 68 19 136/45 98 Mechanical Ventilator 60 01/27/17 21:30 68 20 60 01/27/17 21:27 90 18 Mechanical Ventilator 40 01/27/17 21:00 68 19 142/50 98 Mechanical Ventilator 60 01/27/17 20:00 97.6 69 20 146/52 98 Mechanical Ventilator 60 01/27/17 20:00 60 01/27/17 20:00 74 01/27/17 19:30 70 20 60 01/27/17 19:00 69 20 146/52 98 Mechanical Ventilator 60 01/27/17 18:00 69 20 145/51 98 Mechanical Ventilator 60 01/27/17 17:11 64 20 60 01/27/17 17:00 69 19 134/59 99 Mechanical Ventilator 60 01/27/17 16:00 96.8 64 20 168/71 96 Mechanical Ventilator 60 01/27/17 16:00 66 01/27/17 16:00 60 01/27/17 15:02 78 20 60 01/27/17 15:00 67 20 140/45 97 Mechanical Ventilator 60 01/27/17 14:00 70 19 150/63 99 Mechanical Ventilator 60 01/27/17 13:00 73 20 163/63 97 Mechanical Ventilator 60 01/27/17 12:45 74 20 60 01/27/17 12:00 64 01/27/17 12:00 97.0 61 20 137/52 95 Mechanical Ventilator 60 01/27/17 12:00 60 01/27/17 11:00 71 20 146/54 94 Mechanical Ventilator 60 01/27/17 10:49 75/49 01/27/17 10:33 74 20 60 01/27/17 10:30 60 01/27/17 10:00 75 18 114/47 94 Mechanical Ventilator 60 Height (Feet): 5 Height (Inches): 6.00 Weight (Pounds): 289 Objective HEENT: No pale conjunctivae. No icterus.ETT in place NECK: No lymphadenopathy. CHEST: coarse breath sounds HEART: S1 and S2. ABDOMEN: Soft and obese. EXTREMITIES: No cyanosis. NEUROLOGIC: lethargic. Skin: no rashes Microbiology Date/Time Source Procedure Growth Status 01/26/17 18:30 Blood Blood Culture - Preliminary NO GROWTH AFTER 24 HOURS Resulted 01/26/17 13:00 Blood Blood Culture - Preliminary NO GROWTH AFTER 24 HOURS Resulted 01/26/17 13:00 Sputum Gram Stain - Final Resulted 01/26/17 13:00 Sputum Culture - Preliminary Gram Negative Bacillus 1 Resulted 01/26/17 13:00 Urine,Clean Catch Urine Culture - Preliminary YEAST Resulted Laboratory Tests Test 01/28/17 04:50 White Blood Count 22.4 K/UL (4.8-10.8) *H Red Blood Count 3.09 M/UL (4.20-5.40) L Hemoglobin 10.0 G/DL (12.0-16.0) L Hematocrit 30.2 % (37.0-47.0) L Mean Corpuscular Volume 98 FL (80-99) Mean Corpuscular Hemoglobin 32.4 PG (27.0-31.0) H Mean Corpuscular Hemoglobin Concent 33.1 G/DL (32.0-36.0) Red Cell Distribution Width 16.4 % (11.6-14.8) H Platelet Count 27 K/UL (150-450) L Mean Platelet Volume 10.8 FL (6.5-10.1) H Neutrophils (%) (Auto) % (45.0-75.0) Lymphocytes (%) (Auto) % (20.0-45.0) Monocytes (%) (Auto) % (1.0-10.0) Eosinophils (%) (Auto) % (0.0-3.0) Basophils (%) (Auto) % (0.0-2.0) Differential Total Cells Counted 100 Neutrophils % (Manual) 90 % (45-75) H Lymphocytes % (Manual) 5 % (20-45) L Monocytes % (Manual) 2 % (1-10) Eosinophils % (Manual) 3 % (0-3) Basophils % (Manual) 0 % (0-2) Band Neutrophils 0 % (0-8) Platelet Estimate Decreased L Platelet Morphology Normal Hypochromasia 1+ Anisocytosis 1+ Prothrombin Time 20.4 SEC (9.30-11.50) H Prothromb Time International Ratio 1.9 (0.9-1.1) H Activated Partial Thromboplast Time 52 SEC (23-33) H Sodium Level 133 MMOL/L (136-145) L Potassium Level 3.5 MMOL/L (3.5-5.1) Chloride Level 105 MMOL/L (98-107) Carbon Dioxide Level 15 MMOL/L (21-32) L Anion Gap 13 (5-15) Blood Urea Nitrogen 73 mg/dL (7-18) H Creatinine 4.9 MG/DL (0.55-1.30) H Estimat Glomerular Filtration Rate mL/min (>60) Glucose Level 185 MG/DL (74-106) H Lactic Acid Level 2.10 mmol/L (0.66-2.22) Uric Acid 8.3 MG/DL (2.6-7.2) H Calcium Level 9.6 MG/DL (8.5-10.1) Phosphorus Level 4.0 MG/DL (2.5-4.9) Magnesium Level 2.2 MG/DL (1.8-2.4) Total Bilirubin 1.4 MG/DL (0.2-1.0) H Direct Bilirubin 0.0 MG/DL (0.0-0.3) Aspartate Amino Transf (AST/SGOT) 51 U/L (15-37) H Alanine Aminotransferase (ALT/SGPT) 9 U/L (12-78) L Alkaline Phosphatase 163 U/L (46-116) H Total Creatine Kinase 35 U/L (26-308) C-Reactive Protein, Quantitative 12.8 mg/dL (0.00-0.90) H Pro-B-Type Natriuretic Peptide 66449 (0-125) H Total Protein 5.5 G/DL (6.4-8.2) L Albumin 1.8 G/DL (3.4-5.0) L Globulin 3.7 g/dL Albumin/Globulin Ratio 0.5 (1.0-2.7) L Current Medications Medications (Trade) Dose Ordered Sig/Pavel Route PRN Reason Start Time Stop Time Status Last Admin Dose Admin Acetaminophen (Tylenol) 650 mg Q4H PRN ORAL T>100.5 01/21/17 14:30 02/15/17 14:29 Albuterol/ Ipratropium (DuoNeb 0.5-3(2.5)mg/3ml) 3 ml Q4H PRN HHN Shortness of Breath 01/21/17 14:30 01/28/17 14:29 Ceftaroline Fosamil 200 mg/ Dextrose 110 ml @ 220 mls/hr Q12HR@1100,2300 IV 01/27/17 20:00 02/03/17 19:59 01/27/17 20:01 Chlorhexidine Gluconate (Dianne-Hex 2%) 1 applic DAILY@1999 TOPIC 01/25/17 20:00 02/24/17 19:59 01/27/17 20:01 Clotrimazole (Lotrimin) 1 applic EVERY 12 HOURS TOPIC 01/21/17 21:00 02/18/17 13:59 01/28/17 09:20 Dextrose (Dextrose 50%) STAT PRN IV Hypoglycemia 01/27/17 07:45 02/26/17 07:44 Dextrose/Sodium Chloride 1,000 ml @ 75 mls/hr [id number] IV 01/26/17 13:15 02/25/17 13:14 01/28/17 05:28 Dopamine HCl/ Dextrose 250 ml @ 0 mls/hr Q24H IV 01/25/17 11:15 02/24/17 11:14 01/27/17 10:49 Ertapenem 0.5 gm/ Sodium Chloride 55 ml @ 110 mls/hr Q24H IVPB 01/28/17 09:00 02/02/17 08:59 01/28/17 09:00 Insulin Aspart (NovoLOG) EVERY 6 HOURS SUBQ 01/27/17 18:00 02/26/17 11:29 01/28/17 05:31 Lactulose (Cephulac) 10 gm BID ORAL 01/23/17 09:00 02/18/17 12:59 01/28/17 09:22 Lorazepam (Ativan 2mg/ml 1ml) 2 mg Q4H PRN IV For Anxiety 01/22/17 06:45 01/29/17 06:44 01/23/17 09:10 Metoclopramide HCl (Reglan) 10 mg Q6H PRN IVP Nausea & Vomiting 01/25/17 22:30 02/24/17 22:29 01/27/17 12:27 Midodrine (Pro-Amatine) 10 mg THREE TIMES A DAY ORAL 01/26/17 18:00 02/25/17 17:59 01/27/17 17:48 Morphine Sulfate (Morphine Sulfate) 4 mg Q4H PRN IVP For Pain 01/22/17 06:45 01/29/17 06:44 Nitroglycerin (Ntg) 0.4 mg Q5MIN X 3 DOSES PRN SL Prn Chest Pain 01/21/17 14:30 02/15/17 14:29 Nystatin (Nystop Powder) 1 applic THREE TIMES A DAY TOPIC 01/22/17 13:00 02/21/17 12:59 01/28/17 09:20 Ondansetron HCl (Zofran) 4 mg Q6H PRN IVP Nausea & Vomiting 01/21/17 14:30 02/15/17 14:29 Pantoprazole (Protonix) 40 mg EVERY 12 HOURS IVP 01/21/17 21:00 02/20/17 20:59 01/28/17 09:21 Polyethylene Glycol (Miralax) 17 gm DAILYPRN PRN ORAL Constipation 01/21/17 14:00 02/17/17 13:59 Vancomycin HCl (Vanco rx to dose) 1 ea DAILY PRN MISC Per rx protocol 01/22/17 09:00 02/18/17 11:44 Vancomycin HCl (Vancomycin) 125 mg BID ORAL 01/23/17 19:30 01/30/17 19:29 01/28/17 09:22 Vancomycin/Sodium Chloride 250 ml @ 166.667 mls/hr ONCE ONCE IVPB 01/28/17 10:00 01/28/17 11:29 01/28/17 09:37 Nereyda Monroe M.D. Jan 28, 2017 10:18
[2017-01-28] MEDS ORDERED: Amikacin Rx to dose MISC PRN (10:30)
--- NOTE | 2017-01-28 11:10 | Pulmonolgy Critical Care Note ---
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 Respiratory: monitor respiratory rate, adjust FIO2, CXR Cardiac: continue to monitor HR/BP Renal: F/U I&O, keep IV fluid, check electrolytes Infectious Disease: check cultures, continue antibiotics Gastrointestinal: continue feedings/current rate Endocrine: continue sliding scale insulin, other - add hydrocortisone to support BP Hematologic: monitor H/H, transfuse if hgb<8.5 Neurologic: PRN Ativan, PRN Morphine, keep patient comfortable Affect: PRN ativan Prophylaxis: Protonix, Heparin Notes Reviewed: physical chemist, renal Discussed with: nurses, consultants, correctional case records supervisor, family member Critical Care - Objective Last 24 Hour Vital Signs Date Time Temp Pulse Resp B/P (MAP) Pulse Ox O2 Delivery O2 Flow Rate FiO2 01/28/17 09:00 67 20 138/52 99 Mechanical Ventilator 60 01/28/17 08:36 65 20 60 01/28/17 08:00 60 01/28/17 08:00 66 01/28/17 08:00 96.8 66 20 139/53 99 Mechanical Ventilator 60 01/28/17 07:00 64 20 147/65 99 Mechanical Ventilator 60 01/28/17 06:30 64 20 60 01/28/17 06:00 67 20 144/50 99 Mechanical Ventilator 60 01/28/17 05:00 69 20 135/53 99 Mechanical Ventilator 60 01/28/17 04:31 68 20 60 01/28/17 04:00 60 01/28/17 04:00 54 01/28/17 04:00 97.3 67 19 106/37 97 Mechanical Ventilator 60 01/28/17 03:00 67 19 135/45 97 Mechanical Ventilator 60 01/28/17 02:58 63 20 60 01/28/17 02:00 65 20 127/46 98 Mechanical Ventilator 60 01/28/17 01:27 71 20 60 01/28/17 01:00 72 20 117/39 98 Mechanical Ventilator 60 01/28/17 00:00 60 01/28/17 00:00 97.3 75 20 136/46 97 Mechanical Ventilator 60 01/28/17 00:00 73 01/27/17 23:30 73 20 60 01/27/17 23:00 68 19 137/47 98 Mechanical Ventilator 60 01/27/17 22:00 68 19 136/45 98 Mechanical Ventilator 60 01/27/17 21:30 68 20 60 01/27/17 21:27 90 18 Mechanical Ventilator 40 01/27/17 21:00 68 19 142/50 98 Mechanical Ventilator 60 01/27/17 20:00 97.6 69 20 146/52 98 Mechanical Ventilator 60 01/27/17 20:00 60 01/27/17 20:00 74 01/27/17 19:30 70 20 60 01/27/17 19:00 69 20 146/52 98 Mechanical Ventilator 60 01/27/17 18:00 69 20 145/51 98 Mechanical Ventilator 60 01/27/17 17:11 64 20 60 01/27/17 17:00 69 19 134/59 99 Mechanical Ventilator 60 01/27/17 16:00 96.8 64 20 168/71 96 Mechanical Ventilator 60 01/27/17 16:00 66 01/27/17 16:00 60 01/27/17 15:02 78 20 60 01/27/17 15:00 67 20 140/45 97 Mechanical Ventilator 60 01/27/17 14:00 70 19 150/63 99 Mechanical Ventilator 60 01/27/17 13:00 73 20 163/63 97 Mechanical Ventilator 60 01/27/17 12:45 74 20 60 01/27/17 12:00 64 01/27/17 12:00 97.0 61 20 137/52 95 Mechanical Ventilator 60 01/27/17 12:00 60 Status: awake Condition: critical HEENT: atraumatic, normocephalic Lungs: chest wall tender Heart: HR/BP stable, HR/BP unstable Abdomen: non-tender, active bowel sounds, feeding tube Extremities: no C/C/E Decubiti: location, stage Micro: Microbiology Date/Time Source Procedure Growth Status 01/26/17 18:30 Blood Blood Culture - Preliminary NO GROWTH AFTER 24 HOURS Resulted 01/26/17 13:00 Blood Blood Culture - Preliminary NO GROWTH AFTER 24 HOURS Resulted 01/26/17 13:00 Sputum Gram Stain - Final Resulted 01/26/17 13:00 Sputum Culture - Preliminary Gram Negative Bacillus 1 Resulted 01/26/17 13:00 Urine,Clean Catch Urine Culture - Preliminary YEAST Resulted Accucheck: 188 Critical Care - Subjective ICU Day: 6 Intubation Day: 6 Condition: critical FI02: 60 Vent Support Breath Rate: 20 Vent Support Mode: AC Vent Tidal Volume: 700 Sputum Amount: Scant PEEP: 0.0 PIP: 42 Drips: dopamin Tube Feeding Amount: 20 I&O: Intake and Output 01/28/17 01/29/17 19:00 07:00 Output Total 17 ml Balance -17 ml Output Urine Total 17 ml CXR: no change, ET tube in place ET-Tube: 7.0 ET Position: 21 Labs: Laboratory Tests Test 01/28/17 04:50 White Blood Count 22.4 K/UL (4.8-10.8) *H Red Blood Count 3.09 M/UL (4.20-5.40) L Hemoglobin 10.0 G/DL (12.0-16.0) L Hematocrit 30.2 % (37.0-47.0) L Mean Corpuscular Volume 98 FL (80-99) Mean Corpuscular Hemoglobin 32.4 PG (27.0-31.0) H Mean Corpuscular Hemoglobin Concent 33.1 G/DL (32.0-36.0) Red Cell Distribution Width 16.4 % (11.6-14.8) H Platelet Count 27 K/UL (150-450) L Mean Platelet Volume 10.8 FL (6.5-10.1) H Neutrophils (%) (Auto) % (45.0-75.0) Lymphocytes (%) (Auto) % (20.0-45.0) Monocytes (%) (Auto) % (1.0-10.0) Eosinophils (%) (Auto) % (0.0-3.0) Basophils (%) (Auto) % (0.0-2.0) Differential Total Cells Counted 100 Neutrophils % (Manual) 90 % (45-75) H Lymphocytes % (Manual) 5 % (20-45) L Monocytes % (Manual) 2 % (1-10) Eosinophils % (Manual) 3 % (0-3) Basophils % (Manual) 0 % (0-2) Band Neutrophils 0 % (0-8) Platelet Estimate Decreased L Platelet Morphology Normal Hypochromasia 1+ Anisocytosis 1+ Prothrombin Time 20.4 SEC (9.30-11.50) H Prothromb Time International Ratio 1.9 (0.9-1.1) H Activated Partial Thromboplast Time 52 SEC (23-33) H Sodium Level 133 MMOL/L (136-145) L Potassium Level 3.5 MMOL/L (3.5-5.1) Chloride Level 105 MMOL/L (98-107) Carbon Dioxide Level 15 MMOL/L (21-32) L Anion Gap 13 (5-15) Blood Urea Nitrogen 73 mg/dL (7-18) H Creatinine 4.9 MG/DL (0.55-1.30) H Estimat Glomerular Filtration Rate mL/min (>60) Glucose Level 185 MG/DL (74-106) H Lactic Acid Level 2.10 mmol/L (0.66-2.22) Uric Acid 8.3 MG/DL (2.6-7.2) H Calcium Level 9.6 MG/DL (8.5-10.1) Phosphorus Level 4.0 MG/DL (2.5-4.9) Magnesium Level 2.2 MG/DL (1.8-2.4) Total Bilirubin 1.4 MG/DL (0.2-1.0) H Direct Bilirubin 0.0 MG/DL (0.0-0.3) Aspartate Amino Transf (AST/SGOT) 51 U/L (15-37) H Alanine Aminotransferase (ALT/SGPT) 9 U/L (12-78) L Alkaline Phosphatase 163 U/L (46-116) H Total Creatine Kinase 35 U/L (26-308) C-Reactive Protein, Quantitative 12.8 mg/dL (0.00-0.90) H Pro-B-Type Natriuretic Peptide 61118 (0-125) H Total Protein 5.5 G/DL (6.4-8.2) L Albumin 1.8 G/DL (3.4-5.0) L Globulin 3.7 g/dL Albumin/Globulin Ratio 0.5 (1.0-2.7) L DIONI TRIANA Jan 28, 2017 11:10
[2017-01-28] MEDS: D5W IV SCH ×2 (11:15→23:09)
[2017-01-28] MEDS: DOPamine 400mg/250ml 250 ML IV SCH ×2 (11:15→15:26)
[2017-01-28] MEDS: CEFTAROLINE IV SCH ×2 (11:15→23:09)
[2017-01-28] MEDS ORDERED: Amikacin 500 MG in NS 110 ML IV ONE (12:00)
--- NOTE | 2017-01-28 12:14 | Internal Med Progress Note ---
Subjective Date of Service: Jan 28, 2017 Physician Name Katharina Pond Attending Physician Rl Tee MD Current Medications Medications (Trade) Dose Ordered Sig/Pavel Route PRN Reason Start Time Stop Time Status Last Admin Dose Admin Acetaminophen (Tylenol) 650 mg Q4H PRN ORAL T>100.5 01/21/17 14:30 02/15/17 14:29 Albuterol/ Ipratropium (DuoNeb 0.5-3(2.5)mg/3ml) 3 ml Q4H PRN HHN Shortness of Breath 01/21/17 14:30 01/28/17 14:29 Amikacin Sulfate 500 mg/Sodium Chloride 112 ml @ 112 mls/hr ONCE ONCE IV 01/28/17 12:00 01/28/17 12:59 Ceftaroline Fosamil 200 mg/ Dextrose 110 ml @ 220 mls/hr Q12HR@1100,2300 IV 01/27/17 20:00 02/03/17 19:59 01/28/17 11:15 Chlorhexidine Gluconate (Dianne-Hex 2%) 1 applic DAILY@2000 TOPIC 01/25/17 20:00 02/24/17 19:59 01/27/17 20:01 Clotrimazole (Lotrimin) 1 applic EVERY 12 HOURS TOPIC 01/21/17 21:00 02/18/17 13:59 01/28/17 09:20 Dextrose (Dextrose 50%) STAT PRN IV Hypoglycemia 01/27/17 07:45 02/26/17 07:44 Dextrose/Sodium Chloride 1,000 ml @ 75 mls/hr [id number] IV 01/26/17 13:15 02/25/17 13:14 01/28/17 05:28 Dopamine HCl/ Dextrose 250 ml @ 0 mls/hr Q24H IV 01/25/17 11:15 02/24/17 11:14 01/27/17 10:49 Ertapenem 0.5 gm/ Sodium Chloride 55 ml @ 110 mls/hr Q24H IVPB 01/28/17 09:00 02/02/17 08:59 01/28/17 09:00 Hydrocortisone (Solu-CORTEF) 100 mg EVERY 8 HOURS IV 01/28/17 14:00 02/27/17 13:59 Insulin Aspart (NovoLOG) EVERY 6 HOURS SUBQ 01/27/17 18:00 02/26/17 11:29 01/28/17 11:21 Lactulose (Cephulac) 10 gm BID ORAL 01/23/17 09:00 02/18/17 12:59 01/28/17 09:22 Lorazepam (Ativan 2mg/ml 1ml) 2 mg Q4H PRN IV For Anxiety 01/22/17 06:45 01/29/17 06:44 01/23/17 09:10 Metoclopramide HCl (Reglan) 10 mg Q6H PRN IVP Nausea & Vomiting 01/25/17 22:30 02/24/17 22:29 01/27/17 12:27 Midodrine (Pro-Amatine) 10 mg THREE TIMES A DAY ORAL 01/26/17 18:00 02/25/17 17:59 01/27/17 17:48 Morphine Sulfate (Morphine Sulfate) 4 mg Q4H PRN IVP For Pain 01/22/17 06:45 01/29/17 06:44 Nitroglycerin (Ntg) 0.4 mg Q5MIN X 3 DOSES PRN SL Prn Chest Pain 01/21/17 14:30 02/15/17 14:29 Nystatin (Nystop Powder) 1 applic THREE TIMES A DAY TOPIC 01/22/17 13:00 02/21/17 12:59 01/28/17 09:20 Ondansetron HCl (Zofran) 4 mg Q6H PRN IVP Nausea & Vomiting 01/21/17 14:30 02/15/17 14:29 Pantoprazole (Protonix) 40 mg EVERY 12 HOURS IVP 01/21/17 21:00 02/20/17 20:59 01/28/17 09:21 Polyethylene Glycol (Miralax) 17 gm DAILYPRN PRN ORAL Constipation 01/21/17 14:00 02/17/17 13:59 Vancomycin HCl (Vanco rx to dose) 1 ea DAILY PRN MISC Per rx protocol 01/22/17 09:00 02/18/17 11:44 Vancomycin HCl (Vancomycin) 125 mg BID ORAL 01/23/17 19:30 01/30/17 19:29 01/28/17 09:22 Allergies: Coded Allergies: PENICILLINS (Unverified Allergy, Unknown, 03/22/15) ROS Limited/Unobtainable: Yes Subjective 76 YO F admitted with altered mental status. Now UTI and CHF. Intubated and sedated. ICU . Cover for Int Nishant-Dr Tee. Continues on Dopamine Objective Last Vital Signs Date Time Temp Pulse Resp B/P (MAP) Pulse Ox O2 Delivery O2 Flow Rate FiO2 01/28/17 11:15 173/69 01/28/17 11:07 66 20 60 01/28/17 09:00 99 Mechanical Ventilator 01/28/17 08:00 96.8 01/21/17 17:00 Laboratory Tests Test 01/28/17 04:50 White Blood Count 22.4 K/UL (4.8-10.8) *H Red Blood Count 3.09 M/UL (4.20-5.40) L Hemoglobin 10.0 G/DL (12.0-16.0) L Hematocrit 30.2 % (37.0-47.0) L Mean Corpuscular Volume 98 FL (80-99) Mean Corpuscular Hemoglobin 32.4 PG (27.0-31.0) H Mean Corpuscular Hemoglobin Concent 33.1 G/DL (32.0-36.0) Red Cell Distribution Width 16.4 % (11.6-14.8) H Platelet Count 27 K/UL (150-450) L Mean Platelet Volume 10.8 FL (6.5-10.1) H Neutrophils (%) (Auto) % (45.0-75.0) Lymphocytes (%) (Auto) % (20.0-45.0) Monocytes (%) (Auto) % (1.0-10.0) Eosinophils (%) (Auto) % (0.0-3.0) Basophils (%) (Auto) % (0.0-2.0) Differential Total Cells Counted 100 Neutrophils % (Manual) 90 % (45-75) H Lymphocytes % (Manual) 5 % (20-45) L Monocytes % (Manual) 2 % (1-10) Eosinophils % (Manual) 3 % (0-3) Basophils % (Manual) 0 % (0-2) Band Neutrophils 0 % (0-8) Platelet Estimate Decreased L Platelet Morphology Normal Hypochromasia 1+ Anisocytosis 1+ Prothrombin Time 20.4 SEC (9.30-11.50) H Prothromb Time International Ratio 1.9 (0.9-1.1) H Activated Partial Thromboplast Time 52 SEC (23-33) H Sodium Level 133 MMOL/L (136-145) L Potassium Level 3.5 MMOL/L (3.5-5.1) Chloride Level 105 MMOL/L (98-107) Carbon Dioxide Level 15 MMOL/L (21-32) L Anion Gap 13 (5-15) Blood Urea Nitrogen 73 mg/dL (7-18) H Creatinine 4.9 MG/DL (0.55-1.30) H Estimat Glomerular Filtration Rate mL/min (>60) Glucose Level 185 MG/DL (74-106) H Lactic Acid Level 2.10 mmol/L (0.66-2.22) Uric Acid 8.3 MG/DL (2.6-7.2) H Calcium Level 9.6 MG/DL (8.5-10.1) Phosphorus Level 4.0 MG/DL (2.5-4.9) Magnesium Level 2.2 MG/DL (1.8-2.4) Total Bilirubin 1.4 MG/DL (0.2-1.0) H Direct Bilirubin 0.0 MG/DL (0.0-0.3) Aspartate Amino Transf (AST/SGOT) 51 U/L (15-37) H Alanine Aminotransferase (ALT/SGPT) 9 U/L (12-78) L Alkaline Phosphatase 163 U/L (46-116) H Total Creatine Kinase 35 U/L (26-308) C-Reactive Protein, Quantitative 12.8 mg/dL (0.00-0.90) H Pro-B-Type Natriuretic Peptide 54094 (0-125) H Total Protein 5.5 G/DL (6.4-8.2) L Albumin 1.8 G/DL (3.4-5.0) L Globulin 3.7 g/dL Albumin/Globulin Ratio 0.5 (1.0-2.7) L Microbiology Date/Time Source Procedure Growth Status 01/26/17 18:30 Blood Blood Culture - Preliminary NO GROWTH AFTER 24 HOURS Resulted 01/26/17 13:00 Blood Blood Culture - Preliminary NO GROWTH AFTER 24 HOURS Resulted 01/26/17 13:00 Sputum Gram Stain - Final Resulted 01/26/17 13:00 Sputum Culture - Preliminary Gram Negative Bacillus 1 Resulted 01/26/17 13:00 Urine,Clean Catch Urine Culture - Preliminary YEAST Resulted Intake and Output 01/28/17 01/29/17 19:00 07:00 Output Total 24 ml Balance -24 ml Output Urine Total 24 ml Objective General Appearance: WD/WN, no apparent distress, moderate distress, obese EENT: PERRL/EOMI, normal ENT inspection Neck: non-tender, normal alignment, supple, normal inspection Cardiovascular: normal peripheral pulses, normal rate, regular rhythm, no gallop/murmur, no JVD Respiratory/Chest: Mechanical vent; chest wall non-tender, lungs with coarse upper air sounds, Bilat wheezes and rales, respiratory distress Abdomen: G-Tube; non tender, no organomegaly, no mass 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 Baumanii. See ID note. Continur ertaoenem, vanco and minocycline per ID (2) CHF (congestive heart failure) Assessment & Plan: LVEF 60-65%. see cardiology note. (3) DM (diabetes mellitus) Assessment & Plan: Continue novolog sliding scale (4) Hypercholesteremia (5) HTN (hypertension) Assessment & Plan: Currently hypotensive. (6) Uncontrolled diabetes mellitus (7) Cirrhosis Assessment & Plan: see GI note. (8) Anemia Assessment & Plan: Transfuse 2 units PRBC today (9) Altered mental status Assessment & Plan: Worsening. ICU status (10) Renal failure Assessment & Plan: S/P placement Dialysis cath today. See nephrology note. (11) Respiratory failure Assessment & Plan: Due to CHF. Cont mech vent per pulmonary. Continue antibiotic per ID (12) Bradycardia Assessment & Plan: see cardiology note. (13) Hypotension Assessment & Plan: Continue dopamine Status: not improved KATHARINA POND Jan 28, 2017 12:14
--- NOTE | 2017-01-28 13:05 | Wound Care Consultation ---
Wound Assessment Wound Assessment #1: Wound Present on Admission: Yes New Wound: No Status Change of Wound: No Wound Location Body Site Modif: left, right Wound Location Body Site: axilla - folds Wound Type: other - intertrigo rash Callie Test: Does not Callie Percent of Wound [place]/Red: 100 Wound Drainage Amount: None Wound Drainage Odor: Mild Odor Tissue Surrounding Wound: Erythemic Wound General Appearance: Reddened, Open to air Wound Assessment #2: Wound Number: 2 Wound Present on Admission: Yes New Wound: No Status Change of Wound: No Wound Location Body Site Modif: mid Wound Location Body Site: sacral Wound Type: pressure ulcer Callie Test: Does not Callie Pressure Ulcer Stage: II - scattered Wound Thickness: Partial Thickness Wound Length: 3.0 Wound Width: 2.5 Wound Depth: 0.1 Percent of Wound [place]/Red: 100 Wound Drainage Description: Serosanguineous Wound Drainage Amount: Scant Wound Drainage Odor: None/Absent Tissue Surrounding Wound: Macerated Wound General Appearance: Reddened, Draining Wound Assessment #3: Wound Number: 3 Wound Present on Admission: Yes New Wound: No Status Change of Wound: No Wound Location Body Site: perineal area Wound Type: chemical burn Callie Test: Does not Callie Percent of Wound [place]/Red: 100 Wound Drainage Amount: None Wound Drainage Odor: None/Absent Tissue Surrounding Wound: Erythemic Wound General Appearance: Reddened Wound Assessment #4: Wound Number: 4 Wound Present on Admission: Yes New Wound: No Status Change of Wound: No Wound Location Body Site Modif: left, upper, posterior Wound Location Body Site: thigh Wound Type: pressure ulcer Callie Test: Does not Callie Pressure Ulcer Stage: II - scattered Wound Thickness: Partial Thickness Wound Length: 4.0 Wound Width: 0.2 Wound Depth: less than 0.1 Percent of Wound [place]/Red: 100 Wound Drainage Description: Serosanguineous Wound Drainage Amount: Scant Wound Drainage Odor: None/Absent Tissue Surrounding Wound: Erythemic Wound General Appearance: Reddened Wound Assessment #5: Wound Number: 5 Wound Present on Admission: Yes New Wound: No Status Change of Wound: No Wound Location Body Site Modif: left Wound Location Body Site: ischial tuberosity Wound Type: pressure ulcer Callie Test: Does not Callie Pressure Ulcer Stage: I Wound Length: 3.0 Wound Width: 3.0 Percent of Wound [place]/Red: 100 Wound Drainage Amount: None Wound Drainage Odor: None/Absent Tissue Surrounding Wound: Erythemic Wound General Appearance: Reddened Wound Assessment #6: Wound Number: 6 Wound Present on Admission: Yes New Wound: No Status Change of Wound: No Wound Location Body Site Modif: right Wound Location Body Site: ischial tuberosity Wound Type: pressure ulcer Callie Test: Does not Callie Pressure Ulcer Stage: I Wound Length: 4.0 Wound Width: 3.0 Percent of Wound [place]/Red: 100 Wound Drainage Amount: None Wound Drainage Odor: None/Absent Tissue Surrounding Wound: Erythemic Wound General Appearance: Reddened Wound Comment #1 Sacral scattered stage II pressure ulcer #2 Left posterior upper thigh stage II pressure ulcer #3 Left ischial tuberosity stage I pressure ulcer #4 Right ischial tuberosity stage I pressure ulcer #5 Chemical burn on perineal area #6 Chemical burn on abdominal folds and breast folds Reassessed this Pt. Will cont same recommendation and treatment -Local wound care per protocol -Keep clean and dry -Optimize nutrition -Offload both heels -Low air loss SPR mattress -Heel protector on both heels -Turn and reposition -Assess and f/u accordingly for any changes FAIZAN CRUZ RN Jan 28, 2017 13:05
--- NOTE | 2017-01-28 13:05 | Wound Care Consultation ---
Wound Assessment Wound Assessment #1: Wound Present on Admission: Yes New Wound: No Status Change of Wound: No Wound Location Body Site Modif: left, right Wound Location Body Site: axilla - folds Wound Type: other - intertrigo rash Callie Test: Does not Callie Percent of Wound [place]/Red: 100 Wound Drainage Amount: None Wound Drainage Odor: Mild Odor Tissue Surrounding Wound: Erythemic Wound General Appearance: Reddened, Open to air Wound Assessment #2: Wound Number: 2 Wound Present on Admission: Yes New Wound: No Status Change of Wound: No Wound Location Body Site Modif: mid Wound Location Body Site: sacral Wound Type: pressure ulcer Callie Test: Does not Callie Pressure Ulcer Stage: II - scattered Wound Thickness: Partial Thickness Wound Length: 3.0 Wound Width: 2.5 Wound Depth: 0.1 Percent of Wound [place]/Red: 100 Wound Drainage Description: Serosanguineous Wound Drainage Amount: Scant Wound Drainage Odor: None/Absent Tissue Surrounding Wound: Macerated Wound General Appearance: Reddened, Draining Wound Assessment #3: Wound Number: 3 Wound Present on Admission: Yes New Wound: No Status Change of Wound: No Wound Location Body Site: perineal area Wound Type: chemical burn Callie Test: Does not Callie Percent of Wound [place]/Red: 100 Wound Drainage Amount: None Wound Drainage Odor: None/Absent Tissue Surrounding Wound: Erythemic Wound General Appearance: Reddened Wound Assessment #4: Wound Number: 4 Wound Present on Admission: Yes New Wound: No Status Change of Wound: No Wound Location Body Site Modif: left, upper, posterior Wound Location Body Site: thigh Wound Type: pressure ulcer Callie Test: Does not Callie Pressure Ulcer Stage: II - scattered Wound Thickness: Partial Thickness Wound Length: 4.0 Wound Width: 0.2 Wound Depth: less than 0.1 Percent of Wound [place]/Red: 100 Wound Drainage Description: Serosanguineous Wound Drainage Amount: Scant Wound Drainage Odor: None/Absent Tissue Surrounding Wound: Erythemic Wound General Appearance: Reddened Wound Assessment #5: Wound Number: 5 Wound Present on Admission: Yes New Wound: No Status Change of Wound: No Wound Location Body Site Modif: left Wound Location Body Site: ischial tuberosity Wound Type: pressure ulcer Callie Test: Does not Callie Pressure Ulcer Stage: I Wound Length: 3.0 Wound Width: 3.0 Percent of Wound [place]/Red: 100 Wound Drainage Amount: None Wound Drainage Odor: None/Absent Tissue Surrounding Wound: Erythemic Wound General Appearance: Reddened Wound Assessment #6: Wound Number: 6 Wound Present on Admission: Yes New Wound: No Status Change of Wound: No Wound Location Body Site Modif: right Wound Location Body Site: ischial tuberosity Wound Type: pressure ulcer Callie Test: Does not Callie Pressure Ulcer Stage: I Wound Length: 4.0 Wound Width: 3.0 Percent of Wound [place]/Red: 100 Wound Drainage Amount: None Wound Drainage Odor: None/Absent Tissue Surrounding Wound: Erythemic Wound General Appearance: Reddened Wound Comment #1 Sacral scattered stage II pressure ulcer #2 Left posterior upper thigh stage II pressure ulcer #3 Left ischial tuberosity stage I pressure ulcer #4 Right ischial tuberosity stage I pressure ulcer #5 Chemical burn on perineal area #6 Chemical burn on abdominal folds and breast folds Reassessed this Pt. Will cont same recommendation and treatment -Local wound care per protocol -Keep clean and dry -Optimize nutrition -Offload both heels -Low air loss SPR mattress -Heel protector on both heels -Turn and reposition -Assess and f/u accordingly for any changes FAIZAN CRUZ RN Jan 28, 2017 13:05
[2017-01-28] MEDS: Hydrocortisone 100mg Inj IV SCH ×2 (13:12→22:03)
--- NOTE | 2017-01-28 13:15 | Cardiac Electrophysiology PN ---
Assessment/Plan Assessment/Plan 1. Congestive heart failure and very high BNP due to diastolic dysfunction. Ejection fraction 60% to 65%. EKG showed normal sinus rhythm with low voltage QRS. Getting dialysis today 2. Shock, still on Dopamine and Abx 3. Bradycardia on Dopamine. DC Midodrine. 4. Diabetes. 5. Hyperlipidemia. 6. Cirrhosis 7. Anemia with hemoglobin of 8. 8. Hypernatremia with NA 160 and renal failure. Down to 133 9. DNR and DNI 10. ESRD on HD now DW RN Subjective Subjective In ICU unresponsive on Vent. Had Dialysis catheter placement awaiting dialysis. DNR and DNI Objective Last 24 Hour Vital Signs Date Time Temp Pulse Resp B/P (MAP) Pulse Ox O2 Delivery O2 Flow Rate FiO2 01/28/17 12:33 68 20 60 01/28/17 12:00 77 20 160/67 98 Mechanical Ventilator 60 01/28/17 12:00 66 01/28/17 12:00 60 01/28/17 11:15 173/69 01/28/17 11:07 66 20 60 01/28/17 11:00 66 20 147/58 98 Mechanical Ventilator 60 01/28/17 10:00 66 20 138/53 99 Mechanical Ventilator 60 01/28/17 09:00 67 20 138/52 99 Mechanical Ventilator 60 01/28/17 08:36 65 20 60 01/28/17 08:00 60 01/28/17 08:00 66 01/28/17 08:00 96.8 66 20 139/53 99 Mechanical Ventilator 60 01/28/17 07:00 64 20 147/65 99 Mechanical Ventilator 60 01/28/17 06:30 64 20 60 01/28/17 06:00 67 20 144/50 99 Mechanical Ventilator 60 01/28/17 05:00 69 20 135/53 99 Mechanical Ventilator 60 01/28/17 04:31 68 20 60 01/28/17 04:00 60 01/28/17 04:00 54 01/28/17 04:00 97.3 67 19 106/37 97 Mechanical Ventilator 60 01/28/17 03:00 67 19 135/45 97 Mechanical Ventilator 60 01/28/17 02:58 63 20 60 01/28/17 02:00 65 20 127/46 98 Mechanical Ventilator 60 01/28/17 01:27 71 20 60 01/28/17 01:00 72 20 117/39 98 Mechanical Ventilator 60 01/28/17 00:00 60 01/28/17 00:00 97.3 75 20 136/46 97 Mechanical Ventilator 60 01/28/17 00:00 73 01/27/17 23:30 73 20 60 01/27/17 23:00 68 19 137/47 98 Mechanical Ventilator 60 01/27/17 22:00 68 19 136/45 98 Mechanical Ventilator 60 01/27/17 21:30 68 20 60 01/27/17 21:27 90 18 Mechanical Ventilator 40 01/27/17 21:00 68 19 142/50 98 Mechanical Ventilator 60 01/27/17 20:00 97.6 69 20 146/52 98 Mechanical Ventilator 60 01/27/17 20:00 60 01/27/17 20:00 74 01/27/17 19:30 70 20 60 01/27/17 19:00 69 20 146/52 98 Mechanical Ventilator 60 01/27/17 18:00 69 20 145/51 98 Mechanical Ventilator 60 01/27/17 17:11 64 20 60 01/27/17 17:00 69 19 134/59 99 Mechanical Ventilator 60 01/27/17 16:00 96.8 64 20 168/71 96 Mechanical Ventilator 60 01/27/17 16:00 66 01/27/17 16:00 60 01/27/17 15:02 78 20 60 01/27/17 15:00 67 20 140/45 97 Mechanical Ventilator 60 01/27/17 14:00 70 19 150/63 99 Mechanical Ventilator 60 Intake and Output 01/28/17 01/29/17 19:00 07:00 Output Total 24 ml Balance -24 ml Output Urine Total 24 ml Laboratory Tests Test 01/28/17 04:50 White Blood Count 22.4 K/UL (4.8-10.8) *H Red Blood Count 3.09 M/UL (4.20-5.40) L Hemoglobin 10.0 G/DL (12.0-16.0) L Hematocrit 30.2 % (37.0-47.0) L Mean Corpuscular Volume 98 FL (80-99) Mean Corpuscular Hemoglobin 32.4 PG (27.0-31.0) H Mean Corpuscular Hemoglobin Concent 33.1 G/DL (32.0-36.0) Red Cell Distribution Width 16.4 % (11.6-14.8) H Platelet Count 27 K/UL (150-450) L Mean Platelet Volume 10.8 FL (6.5-10.1) H Neutrophils (%) (Auto) % (45.0-75.0) Lymphocytes (%) (Auto) % (20.0-45.0) Monocytes (%) (Auto) % (1.0-10.0) Eosinophils (%) (Auto) % (0.0-3.0) Basophils (%) (Auto) % (0.0-2.0) Differential Total Cells Counted 100 Neutrophils % (Manual) 90 % (45-75) H Lymphocytes % (Manual) 5 % (20-45) L Monocytes % (Manual) 2 % (1-10) Eosinophils % (Manual) 3 % (0-3) Basophils % (Manual) 0 % (0-2) Band Neutrophils 0 % (0-8) Platelet Estimate Decreased L Platelet Morphology Normal Hypochromasia 1+ Anisocytosis 1+ Prothrombin Time 20.4 SEC (9.30-11.50) H Prothromb Time International Ratio 1.9 (0.9-1.1) H Activated Partial Thromboplast Time 52 SEC (23-33) H Sodium Level 133 MMOL/L (136-145) L Potassium Level 3.5 MMOL/L (3.5-5.1) Chloride Level 105 MMOL/L (98-107) Carbon Dioxide Level 15 MMOL/L (21-32) L Anion Gap 13 (5-15) Blood Urea Nitrogen 73 mg/dL (7-18) H Creatinine 4.9 MG/DL (0.55-1.30) H Estimat Glomerular Filtration Rate mL/min (>60) Glucose Level 185 MG/DL (74-106) H Lactic Acid Level 2.10 mmol/L (0.66-2.22) Uric Acid 8.3 MG/DL (2.6-7.2) H Calcium Level 9.6 MG/DL (8.5-10.1) Phosphorus Level 4.0 MG/DL (2.5-4.9) Magnesium Level 2.2 MG/DL (1.8-2.4) Total Bilirubin 1.4 MG/DL (0.2-1.0) H Direct Bilirubin 0.0 MG/DL (0.0-0.3) Aspartate Amino Transf (AST/SGOT) 51 U/L (15-37) H Alanine Aminotransferase (ALT/SGPT) 9 U/L (12-78) L Alkaline Phosphatase 163 U/L (46-116) H Total Creatine Kinase 35 U/L (26-308) C-Reactive Protein, Quantitative 12.8 mg/dL (0.00-0.90) H Pro-B-Type Natriuretic Peptide 47508 (0-125) H Total Protein 5.5 G/DL (6.4-8.2) L Albumin 1.8 G/DL (3.4-5.0) L Globulin 3.7 g/dL Albumin/Globulin Ratio 0.5 (1.0-2.7) L Microbiology Date/Time Source Procedure Growth Status 01/26/17 18:30 Blood Blood Culture - Preliminary NO GROWTH AFTER 24 HOURS Resulted 01/26/17 13:00 Blood Blood Culture - Preliminary NO GROWTH AFTER 24 HOURS Resulted 01/26/17 13:00 Sputum Gram Stain - Final Resulted 01/26/17 13:00 Sputum Culture - Preliminary Gram Negative Bacillus 1 Resulted 01/26/17 13:00 Urine,Clean Catch Urine Culture - Preliminary YEAST Resulted Objective HEAD AND NECK: Shows no JVD.Orally intubated. Right IJ Maharkar Catheter in place LUNGS: Coarse rhonchi CARDIOVASCULAR: Regular S1 and S2 with no gallop or murmur. ABDOMEN: Soft and nontender and obese. EXTREMITIES: 2+ pitting edema. DEAN SHAW Jan 28, 2017 13:15
[2017-01-28] MEDS ORDERED: NS 275ml ONE (17:08)
[2017-01-28] MEDS ORDERED: D5NS 1000ml IV ONE (17:08)
[2017-01-28] MEDS ORDERED: Tubing IV Secondary IV ONE (17:08)
--- NOTE | 2017-01-28 17:27 | General Progress Note ---
Assessment/Plan Assessment/Plan ASSESSMENT AND RECOMMENDATIONS 1.Thrombocytopenia 2/2 sepsis --> give plts if below 10k or if below 20k and febrile --> ID following 2. Coagulopathy secondary to underlying liver disease. 3. Thrombocytopenia secondary to underlying splenomegaly. 4. Anemia 2/2 chronic disease --> s/p transfusion --> Watch HH, transfuse if below 8 5. Leukocytosis secondary to underlying infection. white count increasing 6. Diabetes mellitus. Continue to closely monitor. 7. Altered mental status 8. Bradycardia Subjective Constitutional: Reports: no symptoms HEENT: Reports: no symptoms Cardiovascular: Reports: no symptoms Respiratory: Reports: no symptoms Gastrointestinal/Abdominal: Reports: no symptoms Genitourinary: Reports: no symptoms Neurologic/Psychiatric: Reports: no symptoms Endocrine: Reports: no symptoms Hematologic/Lymphatic: Reports: no symptoms Allergies: Coded Allergies: PENICILLINS (Unverified Allergy, Unknown, 03/22/15) Subjective intubated, on dopamine Objective Last 24 Hour Vital Signs Date Time Temp Pulse Resp B/P (MAP) Pulse Ox O2 Delivery O2 Flow Rate FiO2 01/28/17 16:32 70 20 60 01/28/17 15:26 146/57 01/28/17 15:00 57 20 146/57 97 Mechanical Ventilator 60 01/28/17 14:36 66 20 60 01/28/17 14:00 64 20 139/55 98 Mechanical Ventilator 60 01/28/17 13:00 64 19 133/54 98 Mechanical Ventilator 60 01/28/17 12:33 68 20 60 01/28/17 12:00 96.8 77 20 160/67 98 Mechanical Ventilator 60 01/28/17 12:00 77 20 160/67 98 Mechanical Ventilator 60 01/28/17 12:00 66 01/28/17 12:00 60 01/28/17 11:15 173/69 01/28/17 11:07 66 20 60 01/28/17 11:00 66 20 147/58 98 Mechanical Ventilator 60 01/28/17 10:00 66 20 138/53 99 Mechanical Ventilator 60 01/28/17 09:00 67 20 138/52 99 Mechanical Ventilator 60 01/28/17 08:36 65 20 60 01/28/17 08:00 60 01/28/17 08:00 66 01/28/17 08:00 96.8 66 20 139/53 99 Mechanical Ventilator 60 01/28/17 07:00 64 20 147/65 99 Mechanical Ventilator 60 01/28/17 06:30 64 20 60 01/28/17 06:00 67 20 144/50 99 Mechanical Ventilator 60 01/28/17 05:00 69 20 135/53 99 Mechanical Ventilator 60 01/28/17 04:31 68 20 60 01/28/17 04:00 60 01/28/17 04:00 54 01/28/17 04:00 97.3 67 19 106/37 97 Mechanical Ventilator 60 01/28/17 03:00 67 19 135/45 97 Mechanical Ventilator 60 01/28/17 02:58 63 20 60 01/28/17 02:00 65 20 127/46 98 Mechanical Ventilator 60 01/28/17 01:27 71 20 60 01/28/17 01:00 72 20 117/39 98 Mechanical Ventilator 60 01/28/17 00:00 60 01/28/17 00:00 97.3 75 20 136/46 97 Mechanical Ventilator 60 01/28/17 00:00 73 01/27/17 23:30 73 20 60 01/27/17 23:00 68 19 137/47 98 Mechanical Ventilator 60 01/27/17 22:00 68 19 136/45 98 Mechanical Ventilator 60 01/27/17 21:30 68 20 60 01/27/17 21:27 90 18 Mechanical Ventilator 40 01/27/17 21:00 68 19 142/50 98 Mechanical Ventilator 60 01/27/17 20:00 97.6 69 20 146/52 98 Mechanical Ventilator 60 01/27/17 20:00 60 01/27/17 20:00 74 01/27/17 19:30 70 20 60 01/27/17 19:00 69 20 146/52 98 Mechanical Ventilator 60 01/27/17 18:00 69 20 145/51 98 Mechanical Ventilator 60 Intake and Output 01/28/17 01/29/17 19:00 07:00 Intake Total 863 ml Output Total 34 ml Balance 829 ml IV Total 863 ml Output Urine Total 34 ml Laboratory Tests 01/28/17 04:50: White Blood Count 22.4*H, Red Blood Count 3.09L, Hemoglobin 10.0L, Hematocrit 30.2L, Mean Corpuscular Volume 98, Mean Corpuscular Hemoglobin 32.4H, Mean Corpuscular Hemoglobin Concent 33.1, Red Cell Distribution Width 16.4H, Platelet Count 27L, Mean Platelet Volume 10.8H, Neutrophils (%) (Auto) , Lymphocytes (%) (Auto) , Monocytes (%) (Auto) , Eosinophils (%) (Auto) , Basophils (%) (Auto) , Differential Total Cells Counted 100, Neutrophils % ( Manual) 90H, Lymphocytes % (Manual) 5L, Monocytes % (Manual) 2, Eosinophils % ( Manual) 3, Basophils % (Manual) 0, Band Neutrophils 0, Platelet Estimate DecreasedL, Platelet Morphology Normal, Hypochromasia 1+, Anisocytosis 1+, Prothrombin Time 20.4H, Prothromb Time International Ratio 1.9H, Activated Partial Thromboplast Time 52H, Sodium Level 133L, Potassium Level 3.5, Chloride Level 105, Carbon Dioxide Level 15L, Anion Gap 13, Blood Urea Nitrogen 73H, Creatinine 4.9H, Estimat Glomerular Filtration Rate , Glucose Level 185H, Lactic Acid Level 2.10, Uric Acid 8.3H, Calcium Level 9.6, Phosphorus Level 4.0 , Magnesium Level 2.2, Total Bilirubin 1.4H, Direct Bilirubin 0.0, Aspartate Amino Transf (AST/SGOT) 51H, Alanine Aminotransferase (ALT/SGPT) 9L, Alkaline Phosphatase 163H, Total Creatine Kinase 35, C-Reactive Protein, Quantitative 12.8H, Pro-B-Type Natriuretic Peptide 27944K, Total Protein 5.5L, Albumin 1.8L, Globulin 3.7, Albumin/Globulin Ratio 0.5L Height (Feet): 5 Height (Inches): 6.00 Weight (Pounds): 289 General Appearance: WD/WN EENT: normal ENT inspection Neck: normal inspection Cardiovascular: no gallop/murmur Respiratory/Chest: no accessory muscle use Abdomen: no mass Edema: mild edema Chriss Pat Jan 28, 2017 17:27
--- NOTE | 2017-01-28 19:01 | Progress Note ---
SUBJECTIVE: The patient is lethargic, not able to be engaged during the evaluation, has some agitation. No behavioral issues today. MENTAL STATUS EXAMINATION: The patient is confused, lethargic. Mood is neutral. Affect is flat. Eyes closed. Thought process, there is a paucity of thought content. Thought content, no suicidal or homicidal ideation. Cognition is impaired. ASSESSMENT: Encephalopathy. PLAN: We will continue current medication and treatment. Oj Medel M.D. DR: COURT JOB#: [id number] CC:
[2017-01-28] MEDS: Dyna-Hex 2% Top Sol 2oz TOPIC SCH (20:34)
[2017-01-29] VITALS (24 sets, daily range): BP systolic 114–164; BP diastolic 48–77
[2017-01-29] MEDS: Hydrocortisone 100mg Inj IV SCH ×3 (06:16→21:56)
[2017-01-29] MEDS: NovoLOG Insulin Flexpen SUBQ SCH ×4 (06:18→23:24)
[2017-01-29 07:02] LABS: HEMATOCRIT 30.2 % (37.0-47.0); HEMOGLOBIN 9.8 G/DL (12.0-16.0); MEAN CORPUSCULAR VOLUME 96 FL (80-99); PLATELET COUNT 24 K/UL (150-450); RED BLOOD COUNT 3.15 M/UL (4.20-5.40); WHITE BLOOD COUNT 16.3 K/UL (4.8-10.8)
[2017-01-29 07:51] LABS: ALANINE AMINOTRANSFERASE 9 U/L (12-78); ALBUMIN 1.8 G/DL (3.4-5.0); ALBUMIN/GLOBULIN RATIO 0.5 (1.0-2.7); ALKALINE PHOSPHATASE 191 U/L (46-116); ANION GAP 10 (5-15); ASPARTATE AMINO TRANSFERASE 56 U/L (15-37); BILIRUBIN,TOTAL 1.5 MG/DL (0.2-1.0); BLOOD UREA NITROGEN 44 mg/dL (7-18); CALCIUM 9.5 MG/DL (8.5-10.1); CARBON DIOXIDE 21 MMOL/L (21-32); CHLORIDE 108 MMOL/L (98-107); CREATINE KINASE 40 U/L (26-308); CREATININE 3.6 MG/DL (0.55-1.30); GAMMA GLUTAMYL TRANSPEPTIDASE 57 U/L (5-85); PHOSPHORUS 3.3 MG/DL (2.5-4.9); POTASSIUM 3.8 MMOL/L (3.5-5.1); SODIUM 139 MMOL/L (136-145)
[2017-01-29 08:04] LABS: BILIRUBIN,DIRECT 0.6 MG/DL (0.0-0.3)
[2017-01-29] MEDS: Lactulose 10gm/15ml UDC ORAL SCH ×2 (09:54→17:23)
[2017-01-29] MEDS: CEFTAROLINE IV SCH (09:54)
[2017-01-29] MEDS: D5W IV SCH (09:54)
[2017-01-29] MEDS: Ertapenem 0.5 GM in NS 55 ML IVPB SCH (09:54)
[2017-01-29] MEDS: D5NS 1,000 ML IV SCH (09:55)
[2017-01-29] MEDS: Pantoprazole Inj IVP SCH ×2 (09:56→21:11)
[2017-01-29] MEDS: DOPamine 400mg/250ml 250 ML IV SCH (09:56)
[2017-01-29] MEDS: Nystatin Powder 100,000 units/gm 15gm TOPIC SCH ×3 (09:57→17:29)
--- NOTE | 2017-01-29 10:57 | General Progress Note ---
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 Objective Last 24 Hour Vital Signs Date Time Temp Pulse Resp B/P (MAP) Pulse Ox O2 Delivery O2 Flow Rate FiO2 01/29/17 09:56 150/59 01/29/17 09:28 70 20 60 01/29/17 08:50 8.0 60 01/29/17 08:00 97.6 66 20 136/55 95 Mechanical Ventilator 60 01/29/17 08:00 136/55 01/29/17 07:23 66 20 60 01/29/17 07:00 63 20 140/77 95 Mechanical Ventilator 60 01/29/17 07:00 140/77 01/29/17 06:00 68 20 148/57 100 Mechanical Ventilator 60 01/29/17 06:00 148/57 01/29/17 05:26 65 20 60 01/29/17 05:00 66 20 144/56 100 Mechanical Ventilator 60 01/29/17 05:00 144/56 01/29/17 04:00 60 01/29/17 04:00 97.7 65 20 135/48 99 Mechanical Ventilator 60 01/29/17 04:00 135/48 01/29/17 04:00 65 01/29/17 03:25 74 20 60 01/29/17 03:00 71 20 114/55 100 Mechanical Ventilator 60 01/29/17 03:00 114/55 01/29/17 02:00 72 20 135/51 97 Mechanical Ventilator 60 01/29/17 02:00 135/51 01/29/17 01:13 73 20 60 01/29/17 01:00 129/48 01/29/17 01:00 72 20 129/48 97 Mechanical Ventilator 60 01/29/17 00:00 97.8 77 20 150/55 97 Mechanical Ventilator 60 01/29/17 00:00 77 10/12/17 00:00 60 01/29/17 00:00 150/55 01/28/17 23:19 77 20 60 01/28/17 23:00 78 20 130/49 98 Mechanical Ventilator 60 01/28/17 23:00 130/49 01/28/17 22:00 80 20 131/49 98 Mechanical Ventilator 60 01/28/17 22:00 131/49 01/28/17 21:03 85 20 60 01/28/17 21:00 122/44 01/28/17 21:00 80 20 122/44 98 Mechanical Ventilator 60 01/28/17 20:05 Mechanical Ventilator 01/28/17 20:00 60 01/28/17 20:00 120/51 01/28/17 20:00 83 01/28/17 20:00 97.6 83 20 120/51 98 Mechanical Ventilator 60 01/28/17 19:03 87 20 60 01/28/17 18:00 168/59 01/28/17 18:00 87 20 168/59 95 Mechanical Ventilator 60 01/28/17 17:00 133/45 01/28/17 17:00 72 20 133/45 94 Mechanical Ventilator 60 01/28/17 16:32 70 20 60 01/28/17 16:20 Mechanical Ventilator 01/28/17 16:00 97.0 69 20 143/57 98 Mechanical Ventilator 60 01/28/17 16:00 60 01/28/17 16:00 57 01/28/17 16:00 143/57 01/28/17 15:26 146/57 01/28/17 15:00 57 20 146/57 97 Mechanical Ventilator 60 01/28/17 15:00 146/57 01/28/17 14:36 66 20 60 01/28/17 14:00 64 20 139/55 98 Mechanical Ventilator 60 01/28/17 13:00 64 19 133/54 98 Mechanical Ventilator 60 01/28/17 12:33 68 20 60 01/28/17 12:00 96.8 77 20 160/67 98 Mechanical Ventilator 60 01/28/17 12:00 77 20 160/67 98 Mechanical Ventilator 60 01/28/17 12:00 66 01/28/17 12:00 60 01/28/17 11:15 173/69 01/28/17 11:07 66 20 60 01/28/17 11:00 66 20 147/58 98 Mechanical Ventilator 60 Intake and Output 01/29/17 01/30/17 19:00 07:00 Intake Total 75 ml Output Total 0 ml Balance 75 ml IV Total 75 ml Output Urine Total 0 ml Laboratory Tests 01/28/17 18:00: Coccidioides Antibody (Comp Fix) [Pending], Cryptococcus Antigen [Pending] 01/29/17 05:05: White Blood Count 16.3H, Red Blood Count 3.15L, Hemoglobin 9.8L, Hematocrit 30.2L, Mean Corpuscular Volume 96, Mean Corpuscular Hemoglobin 31.0, Mean Corpuscular Hemoglobin Concent 32.3, Red Cell Distribution Width 16.0H, Platelet Count 24L, Mean Platelet Volume 10.6H, Neutrophils (%) (Auto) , Lymphocytes (%) (Auto) , Monocytes (%) (Auto) , Eosinophils (%) (Auto) , Basophils (%) (Auto) , Differential Total Cells Counted 100, Neutrophils % ( Manual) 95H, Lymphocytes % (Manual) 2L, Monocytes % (Manual) 3, Eosinophils % ( Manual) 0, Basophils % (Manual) 0, Band Neutrophils 0, Platelet Estimate DecreasedL, Platelet Morphology Normal, Anisocytosis 1+, Sodium Level 139, Potassium Level 3.8, Chloride Level 108H, Carbon Dioxide Level 21, Anion Gap 10 , Blood Urea Nitrogen 44H, Creatinine 3.6H, Estimat Glomerular Filtration Rate , Glucose Level 225H, Uric Acid 5.8, Calcium Level 9.5, Phosphorus Level 3.3, Magnesium Level 1.9, Total Bilirubin 1.5H, Direct Bilirubin 0.6H, Gamma Glutamyl Transpeptidase 57, Aspartate Amino Transf (AST/SGOT) 56H, Alanine Aminotransferase (ALT/SGPT) 9L, Alkaline Phosphatase 191H, Total Creatine Kinase 40, C-Reactive Protein, Quantitative 13.0H, Pro-B-Type Natriuretic Peptide 17195O, Total Protein 5.4L, Albumin 1.8L, Globulin 3.6, Albumin/ Globulin Ratio 0.5L 01/29/17 08:50: Arterial Blood pH 7.370, Arterial Blood Partial Pressure CO2 35.9, Arterial Blood Partial Pressure O2 60.4L, Arterial Blood HCO3 20.3L, Arterial Blood Oxygen Saturation 90.3L, Arterial Blood Base Excess -4.4, Bon Test Positive Height (Feet): 5 Height (Inches): 6.00 Weight (Pounds): 285 Objective Obese WW NCAT supple CTA RRR soft ND NT (+) edema arousable KIERSTEN DAVIES Jan 29, 2017 10:57
[2017-01-29] MEDS ORDERED: D5NS 1000ml IV ONE (11:11)
[2017-01-29] MEDS ORDERED: Tubing IV Secondary IV ONE ×2 (11:11→17:38)
--- NOTE | 2017-01-29 11:40 | Diagnostic Imaging Report ---
Indication: DYSPNEA Technique: One view of the chest Comparison: 01/28/2012 Findings: Tube and line positions are stable, satisfactory. Diffuse bilateral interstitial and alveolar consolidation is again demonstrated, appears overall stable to perhaps slightly worse in the right lung apex. Evidence of prior upper lumbar vertebral indication procedure again demonstrated Impression: Pulmonary parenchymal disease, likely ARDS, overall stable or may be slightly increased in the right lung apex over 2 days Other stable findings as described
[2017-01-29] MEDS: Vancomycin oral 125mg/2.5ml ORAL SCH ×2 (12:07→17:23)
--- NOTE | 2017-01-29 12:23 | General Progress Note ---
Assessment/Plan Status: stable Status Narrative dislysed yesterday Assessment/Plan Acute on chronic renal failure- multifactorial CHF DM HTN Sepsis Now: Acute respiratory failure- Intubated - Altered level of consciousness - ESBL (extended spectrum beta-lactamase) producing bacteria infection - Cardiomegaly - DM (diabetes mellitus) - HTN (hypertension) - UTI (urinary tract infection) - Anemia - High Cholestrol - COPD - YELENA - Fatty liver Plan: stop IV fluid- Increase Tube feeding next dialysis 01/30 Transfuse as needed Optimize cardiac and pulmonary status 2D echo results noted avoid nephrotoxics monitor renal parameters Urine studies per orders poor prognosis Subjective ROS Limited/Unobtainable: Yes Allergies: Coded Allergies: PENICILLINS (Unverified Allergy, Unknown, 03/22/15) Objective Last 24 Hour Vital Signs Date Time Temp Pulse Resp B/P (MAP) Pulse Ox O2 Delivery O2 Flow Rate FiO2 01/29/17 11:29 70 20 50 01/29/17 10:00 72 158/60 01/29/17 09:56 150/59 01/29/17 09:28 70 20 60 01/29/17 09:00 65 149/56 97 Mechanical Ventilator 60 01/29/17 08:50 8.0 60 01/29/17 08:00 97.6 66 20 136/55 95 Mechanical Ventilator 60 01/29/17 08:00 136/55 01/29/17 07:23 66 20 60 01/29/17 07:00 63 20 140/77 95 Mechanical Ventilator 60 01/29/17 07:00 140/77 01/29/17 06:00 68 20 148/57 100 Mechanical Ventilator 60 01/29/17 06:00 148/57 01/29/17 05:26 65 20 60 01/29/17 05:00 66 20 144/56 100 Mechanical Ventilator 60 01/29/17 05:00 144/56 01/29/17 04:00 60 01/29/17 04:00 97.7 65 20 135/48 99 Mechanical Ventilator 60 01/29/17 04:00 135/48 01/29/17 04:00 65 01/29/17 03:25 74 20 60 01/29/17 03:00 71 20 114/55 100 Mechanical Ventilator 60 01/29/17 03:00 114/55 01/29/17 02:00 72 20 135/51 97 Mechanical Ventilator 60 01/29/17 02:00 135/51 01/29/17 01:13 73 20 60 01/29/17 01:00 129/48 01/29/17 01:00 72 20 129/48 97 Mechanical Ventilator 60 01/29/17 00:00 97.8 77 20 150/55 97 Mechanical Ventilator 60 01/29/17 00:00 77 01/29/17 00:00 60 01/29/17 00:00 150/55 01/28/17 23:19 77 20 60 01/28/17 23:00 78 20 130/49 98 Mechanical Ventilator 60 01/28/17 23:00 130/49 01/28/17 22:00 80 20 131/49 98 Mechanical Ventilator 60 01/28/17 22:00 131/49 01/28/17 21:03 85 20 60 01/28/17 21:00 122/44 01/28/17 21:00 80 20 122/44 98 Mechanical Ventilator 60 01/28/17 20:05 Mechanical Ventilator 01/28/17 20:00 60 01/28/17 20:00 120/51 01/28/17 20:00 83 01/28/17 20:00 97.6 83 20 120/51 98 Mechanical Ventilator 60 01/28/17 19:03 87 20 60 01/28/17 18:00 168/59 01/28/17 18:00 87 20 168/59 95 Mechanical Ventilator 60 01/28/17 17:00 133/45 01/28/17 17:00 72 20 133/45 94 Mechanical Ventilator 60 01/28/17 16:32 70 20 60 01/28/17 16:20 Mechanical Ventilator 01/28/17 16:00 97.0 69 20 143/57 98 Mechanical Ventilator 60 01/28/17 16:00 60 01/28/17 16:00 57 01/28/17 16:00 143/57 01/28/17 15:26 146/57 01/28/17 15:00 57 20 146/57 97 Mechanical Ventilator 60 01/28/17 15:00 146/57 01/28/17 14:36 66 20 60 01/28/17 14:00 64 20 139/55 98 Mechanical Ventilator 60 01/28/17 13:00 64 19 133/54 98 Mechanical Ventilator 60 01/28/17 12:33 68 20 60 Intake and Output 01/29/17 01/30/17 19:00 07:00 Intake Total 75 ml Output Total 5 ml Balance 70 ml IV Total 75 ml Output Urine Total 5 ml # Voids 5 Laboratory Tests 01/28/17 18:00: Coccidioides Antibody (Comp Fix) [Pending], Cryptococcus Antigen [Pending] 01/29/17 05:05: White Blood Count 16.3H, Red Blood Count 3.15L, Hemoglobin 9.8L, Hematocrit 30.2L, Mean Corpuscular Volume 96, Mean Corpuscular Hemoglobin 31.0, Mean Corpuscular Hemoglobin Concent 32.3, Red Cell Distribution Width 16.0H, Platelet Count 24L, Mean Platelet Volume 10.6H, Neutrophils (%) (Auto) , Lymphocytes (%) (Auto) , Monocytes (%) (Auto) , Eosinophils (%) (Auto) , Basophils (%) (Auto) , Differential Total Cells Counted 100, Neutrophils % ( Manual) 95H, Lymphocytes % (Manual) 2L, Monocytes % (Manual) 3, Eosinophils % ( Manual) 0, Basophils % (Manual) 0, Band Neutrophils 0, Platelet Estimate DecreasedL, Platelet Morphology Normal, Anisocytosis 1+, Sodium Level 139, Potassium Level 3.8, Chloride Level 108H, Carbon Dioxide Level 21, Anion Gap 10 , Blood Urea Nitrogen 44H, Creatinine 3.6H, Estimat Glomerular Filtration Rate , Glucose Level 225H, Uric Acid 5.8, Calcium Level 9.5, Phosphorus Level 3.3, Magnesium Level 1.9, Total Bilirubin 1.5H, Direct Bilirubin 0.6H, Gamma Glutamyl Transpeptidase 57, Aspartate Amino Transf (AST/SGOT) 56H, Alanine Aminotransferase (ALT/SGPT) 9L, Alkaline Phosphatase 191H, Total Creatine Kinase 40, C-Reactive Protein, Quantitative 13.0H, Pro-B-Type Natriuretic Peptide [id number], Total Protein 5.4L, Albumin 1.8L, Globulin 3.6, Albumin/ Globulin Ratio 0.5L 01/29/17 08:50: Arterial Blood pH 7.370, Arterial Blood Partial Pressure CO2 35.9, Arterial Blood Partial Pressure O2 60.4L, Arterial Blood HCO3 20.3L, Arterial Blood Oxygen Saturation 90.3L, Arterial Blood Base Excess -4.4, Bon Test Positive Height (Feet): 5 Height (Inches): 6.00 Weight (Pounds): 285 General Appearance: no apparent distress Neck: limited range of motion Cardiovascular: normal rate Respiratory/Chest: decreased breath sounds Abdomen: distended Edema: 1+ Arm (L), 1+ Arm (R), 1+ Leg (L), 1+ Leg (R), 1+ Pedal (L), 1+ Pedal ( R), 1+ Generalized Objective no other change ANDERS MOLINA Jan 29, 2017 12:23
--- NOTE | 2017-01-29 13:13 | Pulmonolgy Critical Care Note ---
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 Respiratory: monitor respiratory rate, adjust FIO2 Cardiac: continue to monitor HR/BP Renal: F/U I&O, keep IV fluid Infectious Disease: check cultures Gastrointestinal: continue feedings/current rate Endocrine: monitor blood sugar, check TSH, continue sliding scale insulin Hematologic: transfuse if hgb<8.5 Neurologic: PRN Ativan, keep patient comfortable Affect: PRN ativan Disposition: keep in ICU Notes Reviewed: counter intelligence technician, renal Discussed with: nurses, consultants, field nurse case managernurse practitioner manager - Objective Last 24 Hour Vital Signs Date Time Temp Pulse Resp B/P (MAP) Pulse Ox O2 Delivery O2 Flow Rate FiO2 01/29/17 11:29 70 20 50 01/29/17 10:00 72 158/60 01/29/17 09:56 150/59 01/29/17 09:28 70 20 60 01/29/17 09:00 65 149/56 97 Mechanical Ventilator 60 01/29/17 08:50 8.0 60 01/29/17 08:00 97.6 66 20 136/55 95 Mechanical Ventilator 60 01/29/17 08:00 136/55 01/29/17 07:23 66 20 60 01/29/17 07:00 63 20 140/77 95 Mechanical Ventilator 60 01/29/17 07:00 140/77 01/29/17 06:00 68 20 148/57 100 Mechanical Ventilator 60 01/29/17 06:00 148/57 01/29/17 05:26 65 20 60 01/29/17 05:00 66 20 144/56 100 Mechanical Ventilator 60 01/29/17 05:00 144/56 01/29/17 04:00 60 01/29/17 04:00 97.7 65 20 135/48 99 Mechanical Ventilator 60 01/29/17 04:00 135/48 01/29/17 04:00 65 01/29/17 03:25 74 20 60 01/29/17 03:00 71 20 114/55 100 Mechanical Ventilator 60 01/29/17 03:00 114/55 01/29/17 02:00 72 20 135/51 97 Mechanical Ventilator 60 01/29/17 02:00 135/51 01/29/17 01:13 73 20 60 01/29/17 01:00 129/48 01/29/17 01:00 72 20 129/48 97 Mechanical Ventilator 60 01/29/17 00:00 97.8 77 20 150/55 97 Mechanical Ventilator 60 01/29/17 00:00 77 01/29/17 00:00 60 01/29/17 00:00 150/55 01/28/17 23:19 77 20 60 01/28/17 23:00 78 20 130/49 98 Mechanical Ventilator 60 01/28/17 23:00 130/49 01/28/17 22:00 80 20 131/49 98 Mechanical Ventilator 60 01/28/17 22:00 131/49 01/28/17 21:03 85 20 60 01/28/17 21:00 122/44 01/28/17 21:00 80 20 122/44 98 Mechanical Ventilator 60 01/28/17 20:05 Mechanical Ventilator 01/28/17 20:00 60 01/28/17 20:00 120/51 01/28/17 20:00 83 01/28/17 20:00 97.6 83 20 120/51 98 Mechanical Ventilator 60 01/28/17 19:03 87 20 60 01/28/17 18:00 168/59 01/28/17 18:00 87 20 168/59 95 Mechanical Ventilator 60 01/28/17 17:00 133/45 01/28/17 17:00 72 20 133/45 94 Mechanical Ventilator 60 01/28/17 16:32 70 20 60 01/28/17 16:20 Mechanical Ventilator 01/28/17 16:00 97.0 69 20 143/57 98 Mechanical Ventilator 60 01/28/17 16:00 60 01/28/17 16:00 57 01/28/17 16:00 143/57 01/28/17 15:26 146/57 01/28/17 15:00 57 20 146/57 97 Mechanical Ventilator 60 01/28/17 15:00 146/57 01/28/17 14:36 66 20 60 01/28/17 14:00 64 20 139/55 98 Mechanical Ventilator 60 Status: awake Condition: critical HEENT: atraumatic Neck: full ROM Lungs: clear Heart: HR/BP stable, HR/BP unstable Abdomen: soft, non-tender, feeding tube Extremities: no C/C/E Micro: Microbiology Date/Time Source Procedure Growth Status 01/26/17 18:30 Blood Blood Culture - Preliminary NO GROWTH AFTER 48 HOURS Resulted Accucheck: 233 Critical Care - Subjective ROS Limited/Unobtainable: No ICU Day: 8 Intubation Day: 8 Condition: critical EKG Rhythm: Sinus Rhythm FI02: 50 Vent Support Breath Rate: 20 Vent Support Mode: AC Vent Tidal Volume: 700 Sputum Amount: Scant PEEP: 0.0 PIP: 56 Tube Feeding Amount: 20 I&O: Intake and Output 01/29/17 01/30/17 19:00 07:00 Intake Total 75 ml Output Total 5 ml Balance 70 ml IV Total 75 ml Output Urine Total 5 ml # Voids 5 CXR: no change, ET in good position ET-Tube: 7.0 ET Position: 21 Labs: Laboratory Tests Test 01/28/17 18:00 01/29/17 05:05 01/29/17 08:50 Coccidioides Antibody (Comp Fix) Pending Cryptococcus Antigen Pending White Blood Count 16.3 K/UL (4.8-10.8) H Red Blood Count 3.15 M/UL (4.20-5.40) L Hemoglobin 9.8 G/DL (12.0-16.0) L Hematocrit 30.2 % (37.0-47.0) L Mean Corpuscular Volume 96 FL (80-99) Mean Corpuscular Hemoglobin 31.0 PG (27.0-31.0) Mean Corpuscular Hemoglobin Concent 32.3 G/DL (32.0-36.0) Red Cell Distribution Width 16.0 % (11.6-14.8) H Platelet Count 24 K/UL (150-450) L Mean Platelet Volume 10.6 FL (6.5-10.1) H Neutrophils (%) (Auto) % (45.0-75.0) Lymphocytes (%) (Auto) % (20.0-45.0) Monocytes (%) (Auto) % (1.0-10.0) Eosinophils (%) (Auto) % (0.0-3.0) Basophils (%) (Auto) % (0.0-2.0) Differential Total Cells Counted 100 Neutrophils % (Manual) 95 % (45-75) H Lymphocytes % (Manual) 2 % (20-45) L Monocytes % (Manual) 3 % (1-10) Eosinophils % (Manual) 0 % (0-3) Basophils % (Manual) 0 % (0-2) Band Neutrophils 0 % (0-8) Platelet Estimate Decreased L Platelet Morphology Normal Anisocytosis 1+ Sodium Level 139 MMOL/L (136-145) Potassium Level 3.8 MMOL/L (3.5-5.1) Chloride Level 108 MMOL/L (98-107) H Carbon Dioxide Level 21 MMOL/L (21-32) Anion Gap 10 (5-15) Blood Urea Nitrogen 44 mg/dL (7-18) H Creatinine 3.6 MG/DL (0.55-1.30) H Estimat Glomerular Filtration Rate mL/min (>60) Glucose Level 225 MG/DL (74-106) H Uric Acid 5.8 MG/DL (2.6-7.2) Calcium Level 9.5 MG/DL (8.5-10.1) Phosphorus Level 3.3 MG/DL (2.5-4.9) Magnesium Level 1.9 MG/DL (1.8-2.4) Total Bilirubin 1.5 MG/DL (0.2-1.0) H Direct Bilirubin 0.6 MG/DL (0.0-0.3) H Gamma Glutamyl Transpeptidase 57 U/L (5-85) Aspartate Amino Transf (AST/SGOT) 56 U/L (15-37) H Alanine Aminotransferase (ALT/SGPT) 9 U/L (12-78) L Alkaline Phosphatase 191 U/L (46-116) H Total Creatine Kinase 40 U/L (26-308) C-Reactive Protein, Quantitative 13.0 mg/dL (0.00-0.90) H Pro-B-Type Natriuretic Peptide 92221 (0-125) H Total Protein 5.4 G/DL (6.4-8.2) L Albumin 1.8 G/DL (3.4-5.0) L Globulin 3.6 g/dL Albumin/Globulin Ratio 0.5 (1.0-2.7) L Arterial Blood pH 7.370 (7.350-7.450) Arterial Blood Partial Pressure CO2 35.9 mmHg (35.0-45.0) Arterial Blood Partial Pressure O2 60.4 mmHg (75.0-100.0) L Arterial Blood HCO3 20.3 mmol/L (22.0-26.0) L Arterial Blood Oxygen Saturation 90.3 % (92.0-98.0) L Arterial Blood Base Excess -4.4 Bon Test Positive DIONI TRIANA Jan 29, 2017 13:13
--- NOTE | 2017-01-29 15:54 | Cardiac Electrophysiology PN ---
Assessment/Plan Assessment/Plan 1. Congestive heart failure and very high BNP due to diastolic dysfunction. Ejection fraction 60% to 65%. EKG showed normal sinus rhythm with low voltage QRS. Had dialysis yesterday 2. Shock, resolved.Off Dopamine and on Abx 3. Bradycardia resolved, off dopamine or midodrine 4. Diabetes. 5. Hyperlipidemia. 6. Cirrhosis 7. Anemia with hemoglobin of 8. 8. Hypernatremia resolved 9. DNR and DNI 10. ESRD on HD now DW RN Subjective Subjective In ICU unresponsive on Vent. Had Dialysis catheter placement had dialysis yesterday and now off Dopamine. DNR and DNI Objective Last 24 Hour Vital Signs Date Time Temp Pulse Resp B/P (MAP) Pulse Ox O2 Delivery O2 Flow Rate FiO2 01/29/17 15:00 20 163/58 97 01/29/17 14:00 20 159/58 94 01/29/17 13:23 71 20 50 01/29/17 13:00 20 156/60 97 01/29/17 12:00 70 01/29/17 12:00 20 159/62 97 01/29/17 12:00 60 01/29/17 11:29 70 20 50 01/29/17 11:00 20 150/59 95 01/29/17 10:00 72 158/60 01/29/17 09:56 150/59 01/29/17 09:28 70 20 60 01/29/17 09:00 65 149/56 97 Mechanical Ventilator 60 01/29/17 08:50 8.0 60 01/29/17 08:00 97.6 66 20 136/55 95 Mechanical Ventilator 60 01/29/17 08:00 72 01/29/17 08:00 136/55 01/29/17 07:23 66 20 60 01/29/17 07:00 63 20 140/77 95 Mechanical Ventilator 60 01/29/17 07:00 140/77 01/29/17 06:00 68 20 148/57 100 Mechanical Ventilator 60 01/29/17 06:00 148/57 01/29/17 05:26 65 20 60 01/29/17 05:00 66 20 144/56 100 Mechanical Ventilator 60 01/29/17 05:00 144/56 01/29/17 04:00 60 01/29/17 04:00 97.7 65 20 135/48 99 Mechanical Ventilator 60 01/29/17 04:00 135/48 01/29/17 04:00 65 01/29/17 03:25 74 20 60 01/29/17 03:00 71 20 114/55 100 Mechanical Ventilator 60 01/29/17 03:00 114/55 01/29/17 02:00 72 20 135/51 97 Mechanical Ventilator 60 01/29/17 02:00 135/51 01/29/17 01:13 73 20 60 01/29/17 01:00 129/48 01/29/17 01:00 72 20 129/48 97 Mechanical Ventilator 60 01/29/17 00:00 97.8 77 20 150/55 97 Mechanical Ventilator 60 01/29/17 00:00 77 01/29/17 00:00 60 01/29/17 00:00 150/55 01/28/17 23:19 77 20 60 01/28/17 23:00 78 20 130/49 98 Mechanical Ventilator 60 01/28/17 23:00 130/49 01/28/17 22:00 80 20 131/49 98 Mechanical Ventilator 60 01/28/17 22:00 131/49 01/28/17 21:03 85 20 60 01/28/17 21:00 122/44 01/28/17 21:00 80 20 122/44 98 Mechanical Ventilator 60 01/28/17 20:05 Mechanical Ventilator 01/28/17 20:00 60 01/28/17 20:00 120/51 01/28/17 20:00 83 01/28/17 20:00 97.6 83 20 120/51 98 Mechanical Ventilator 60 01/28/17 19:03 87 20 60 01/28/17 18:00 168/59 01/28/17 18:00 87 20 168/59 95 Mechanical Ventilator 60 01/28/17 17:00 133/45 01/28/17 17:00 72 20 133/45 94 Mechanical Ventilator 60 01/28/17 16:32 70 20 60 01/28/17 16:20 Mechanical Ventilator 01/28/17 16:00 97.0 69 20 143/57 98 Mechanical Ventilator 60 01/28/17 16:00 60 01/28/17 16:00 57 01/28/17 16:00 143/57 Intake and Output 01/29/17 01/30/17 19:00 07:00 Intake Total 75 ml Output Total 20 ml Balance 55 ml IV Total 75 ml Output Urine Total 20 ml # Voids 5 # Bowel Movements 100 Laboratory Tests Test 01/28/17 18:00 01/29/17 05:05 01/29/17 08:50 Coccidioides Antibody (Comp Fix) Pending Cryptococcus Antigen Pending White Blood Count 16.3 K/UL (4.8-10.8) H Red Blood Count 3.15 M/UL (4.20-5.40) L Hemoglobin 9.8 G/DL (12.0-16.0) L Hematocrit 30.2 % (37.0-47.0) L Mean Corpuscular Volume 96 FL (80-99) Mean Corpuscular Hemoglobin 31.0 PG (27.0-31.0) Mean Corpuscular Hemoglobin Concent 32.3 G/DL (32.0-36.0) Red Cell Distribution Width 16.0 % (11.6-14.8) H Platelet Count 24 K/UL (150-450) L Mean Platelet Volume 10.6 FL (6.5-10.1) H Neutrophils (%) (Auto) % (45.0-75.0) Lymphocytes (%) (Auto) % (20.0-45.0) Monocytes (%) (Auto) % (1.0-10.0) Eosinophils (%) (Auto) % (0.0-3.0) Basophils (%) (Auto) % (0.0-2.0) Differential Total Cells Counted 100 Neutrophils % (Manual) 95 % (45-75) H Lymphocytes % (Manual) 2 % (20-45) L Monocytes % (Manual) 3 % (1-10) Eosinophils % (Manual) 0 % (0-3) Basophils % (Manual) 0 % (0-2) Band Neutrophils 0 % (0-8) Platelet Estimate Decreased L Platelet Morphology Normal Anisocytosis 1+ Sodium Level 139 MMOL/L (136-145) Potassium Level 3.8 MMOL/L (3.5-5.1) Chloride Level 108 MMOL/L (98-107) H Carbon Dioxide Level 21 MMOL/L (21-32) Anion Gap 10 (5-15) Blood Urea Nitrogen 44 mg/dL (7-18) H Creatinine 3.6 MG/DL (0.55-1.30) H Estimat Glomerular Filtration Rate mL/min (>60) Glucose Level 225 MG/DL (74-106) H Uric Acid 5.8 MG/DL (2.6-7.2) Calcium Level 9.5 MG/DL (8.5-10.1) Phosphorus Level 3.3 MG/DL (2.5-4.9) Magnesium Level 1.9 MG/DL (1.8-2.4) Total Bilirubin 1.5 MG/DL (0.2-1.0) H Direct Bilirubin 0.6 MG/DL (0.0-0.3) H Gamma Glutamyl Transpeptidase 57 U/L (5-85) Aspartate Amino Transf (AST/SGOT) 56 U/L (15-37) H Alanine Aminotransferase (ALT/SGPT) 9 U/L (12-78) L Alkaline Phosphatase 191 U/L (46-116) H Total Creatine Kinase 40 U/L (26-308) C-Reactive Protein, Quantitative 13.0 mg/dL (0.00-0.90) H Pro-B-Type Natriuretic Peptide 78725 (0-125) H Total Protein 5.4 G/DL (6.4-8.2) L Albumin 1.8 G/DL (3.4-5.0) L Globulin 3.6 g/dL Albumin/Globulin Ratio 0.5 (1.0-2.7) L Arterial Blood pH 7.370 (7.350-7.450) Arterial Blood Partial Pressure CO2 35.9 mmHg (35.0-45.0) Arterial Blood Partial Pressure O2 60.4 mmHg (75.0-100.0) L Arterial Blood HCO3 20.3 mmol/L (22.0-26.0) L Arterial Blood Oxygen Saturation 90.3 % (92.0-98.0) L Arterial Blood Base Excess -4.4 Bon Test Positive Microbiology Date/Time Source Procedure Growth Status 01/26/17 18:30 Blood Blood Culture - Preliminary NO GROWTH AFTER 48 HOURS Resulted Objective HEAD AND NECK: Shows no JVD.Orally intubated. Right IJ Maharkar Catheter in place LUNGS: Coarse rhonchi CARDIOVASCULAR: Regular S1 and S2 with no gallop or murmur. ABDOMEN: Soft and nontender and obese. EXTREMITIES: 2+ pitting edema. DEAN SHAW Jan 29, 2017 15:54
--- NOTE | 2017-01-29 16:27 | Internal Med Progress Note ---
Subjective Date of Service: Jan 29, 2017 Physician Name Katharina Pond Attending Physician Rl Tee MD Current Medications Medications (Trade) Dose Ordered Sig/Pavel Route PRN Reason Start Time Stop Time Status Last Admin Dose Admin Acetaminophen (Tylenol) 650 mg Q4H PRN ORAL T>100.5 01/21/17 14:30 02/15/17 14:29 Ceftaroline Fosamil 200 mg/ Dextrose 110 ml @ 220 mls/hr Q12HR@1100,2300 IV 01/27/17 20:00 02/03/17 19:59 01/29/17 09:54 Chlorhexidine Gluconate (Dianne-Hex 2%) 1 applic DAILY@1999 TOPIC 01/25/17 20:00 02/24/17 19:59 01/28/17 20:34 Clotrimazole (Lotrimin) 1 applic EVERY 12 HOURS TOPIC 01/21/17 21:00 02/18/17 13:59 01/29/17 09:57 Colistimethate Sodium (Colistin *inhalation use only*) 75 mg Q12HR@10,22 INH 01/29/17 22:00 02/05/17 21:59 UNV Dextrose (Dextrose 50%) STAT PRN IV Hypoglycemia 01/27/17 07:45 02/26/17 07:44 Dopamine HCl/ Dextrose 250 ml @ 0 mls/hr Q24H IV 01/25/17 11:15 02/24/17 11:14 01/29/17 09:56 Ertapenem 0.5 gm/ Sodium Chloride 55 ml @ 110 mls/hr Q24H IVPB 01/28/17 09:00 02/02/17 08:59 01/29/17 09:54 Hydrocortisone (Solu-CORTEF) 100 mg EVERY 8 HOURS IV 01/29/17 14:00 01/31/17 06:01 01/29/17 14:42 Insulin Aspart (NovoLOG) EVERY 6 HOURS SUBQ 01/27/17 18:00 02/26/17 11:29 01/29/17 12:10 Lactulose (Cephulac) 10 gm BID ORAL 01/23/17 09:00 02/18/17 12:59 01/29/17 09:54 Metoclopramide HCl (Reglan) 5 mg Q8H PRN IVP Nausea & Vomiting 01/29/17 11:30 02/28/17 11:29 Nitroglycerin (Ntg) 0.4 mg Q5MIN X 3 DOSES PRN SL Prn Chest Pain 01/21/17 14:30 02/15/17 14:29 Nystatin (Nystop Powder) 1 applic THREE TIMES A DAY TOPIC 01/22/17 13:00 02/21/17 12:59 01/29/17 12:07 Pantoprazole (Protonix) 40 mg EVERY 12 HOURS IVP 01/21/17 21:00 02/20/17 20:59 01/29/17 09:56 Polyethylene Glycol (Miralax) 17 gm DAILYPRN PRN ORAL Constipation 01/21/17 14:00 02/17/17 13:59 Rifaximin (Xifaxan) 550 mg EVERY 12 HOURS ORAL 01/29/17 12:00 02/05/17 11:59 01/29/17 12:07 Vancomycin HCl (Vanco rx to dose) 1 ea DAILY PRN MISC Per rx protocol 01/22/17 09:00 02/18/17 11:44 Vancomycin HCl (Vancomycin) 125 mg BID ORAL 01/23/17 19:30 01/30/17 19:29 01/29/17 12:07 Allergies: Coded Allergies: PENICILLINS (Unverified Allergy, Unknown, 03/22/15) ROS Limited/Unobtainable: Yes Subjective 76 YO F admitted with altered mental status. Now UTI and CHF. Intubated and sedated. ICU . Cover for Int Nishant-Dr Tee. Continues on Dopamine Objective Last Vital Signs Date Time Temp Pulse Resp B/P (MAP) Pulse Ox O2 Delivery O2 Flow Rate FiO2 01/29/17 16:09 71 20 50 01/29/17 16:00 158/59 95 01/29/17 09:00 Mechanical Ventilator 01/29/17 08:50 8.0 01/29/17 08:00 97.6 Laboratory Tests Test 01/28/17 18:00 01/29/17 05:05 01/29/17 08:50 Coccidioides Antibody (Comp Fix) Pending Cryptococcus Antigen Pending White Blood Count 16.3 K/UL (4.8-10.8) H Red Blood Count 3.15 M/UL (4.20-5.40) L Hemoglobin 9.8 G/DL (12.0-16.0) L Hematocrit 30.2 % (37.0-47.0) L Mean Corpuscular Volume 96 FL (80-99) Mean Corpuscular Hemoglobin 31.0 PG (27.0-31.0) Mean Corpuscular Hemoglobin Concent 32.3 G/DL (32.0-36.0) Red Cell Distribution Width 16.0 % (11.6-14.8) H Platelet Count 24 K/UL (150-450) L Mean Platelet Volume 10.6 FL (6.5-10.1) H Neutrophils (%) (Auto) % (45.0-75.0) Lymphocytes (%) (Auto) % (20.0-45.0) Monocytes (%) (Auto) % (1.0-10.0) Eosinophils (%) (Auto) % (0.0-3.0) Basophils (%) (Auto) % (0.0-2.0) Differential Total Cells Counted 100 Neutrophils % (Manual) 95 % (45-75) H Lymphocytes % (Manual) 2 % (20-45) L Monocytes % (Manual) 3 % (1-10) Eosinophils % (Manual) 0 % (0-3) Basophils % (Manual) 0 % (0-2) Band Neutrophils 0 % (0-8) Platelet Estimate Decreased L Platelet Morphology Normal Anisocytosis 1+ Sodium Level 139 MMOL/L (136-145) Potassium Level 3.8 MMOL/L (3.5-5.1) Chloride Level 108 MMOL/L (98-107) H Carbon Dioxide Level 21 MMOL/L (21-32) Anion Gap 10 (5-15) Blood Urea Nitrogen 44 mg/dL (7-18) H Creatinine 3.6 MG/DL (0.55-1.30) H Estimat Glomerular Filtration Rate mL/min (>60) Glucose Level 225 MG/DL (74-106) H Uric Acid 5.8 MG/DL (2.6-7.2) Calcium Level 9.5 MG/DL (8.5-10.1) Phosphorus Level 3.3 MG/DL (2.5-4.9) Magnesium Level 1.9 MG/DL (1.8-2.4) Total Bilirubin 1.5 MG/DL (0.2-1.0) H Direct Bilirubin 0.6 MG/DL (0.0-0.3) H Gamma Glutamyl Transpeptidase 57 U/L (5-85) Aspartate Amino Transf (AST/SGOT) 56 U/L (15-37) H Alanine Aminotransferase (ALT/SGPT) 9 U/L (12-78) L Alkaline Phosphatase 191 U/L (46-116) H Total Creatine Kinase 40 U/L (26-308) C-Reactive Protein, Quantitative 13.0 mg/dL (0.00-0.90) H Pro-B-Type Natriuretic Peptide 31947 (0-125) H Total Protein 5.4 G/DL (6.4-8.2) L Albumin 1.8 G/DL (3.4-5.0) L Globulin 3.6 g/dL Albumin/Globulin Ratio 0.5 (1.0-2.7) L Arterial Blood pH 7.370 (7.350-7.450) Arterial Blood Partial Pressure CO2 35.9 mmHg (35.0-45.0) Arterial Blood Partial Pressure O2 60.4 mmHg (75.0-100.0) L Arterial Blood HCO3 20.3 mmol/L (22.0-26.0) L Arterial Blood Oxygen Saturation 90.3 % (92.0-98.0) L Arterial Blood Base Excess -4.4 Bon Test Positive Microbiology Date/Time Source Procedure Growth Status 01/26/17 18:30 Blood Blood Culture - Preliminary NO GROWTH AFTER 48 HOURS Resulted Intake and Output 01/29/17 01/30/17 19:00 07:00 Intake Total 75 ml Output Total 25 ml Balance 50 ml IV Total 75 ml Output Urine Total 25 ml # Voids 5 # Bowel Movements 100 Objective General Appearance: WD/WN, no apparent distress, moderate distress, obese EENT: PERRL/EOMI, normal ENT inspection Neck: non-tender, normal alignment, supple, normal inspection Cardiovascular: normal peripheral pulses, normal rate, regular rhythm, no gallop/murmur, no JVD Respiratory/Chest: Mechanical vent; chest wall non-tender, lungs with coarse upper air sounds, Bilat wheezes and rales, respiratory distress Abdomen: G-Tube; non tender, no organomegaly, no mass Neurologic: dehydrogenation supervisor 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 Baumanii. See ID note. Continur ertaoenem, vanco and minocycline per ID (2) CHF (congestive heart failure) Assessment & Plan: LVEF 60-65%. see cardiology note. (3) DM (diabetes mellitus) Assessment & Plan: Continue novolog sliding scale (4) Hypercholesteremia (5) HTN (hypertension) Assessment & Plan: Currently hypotensive. (6) Uncontrolled diabetes mellitus (7) Cirrhosis Assessment & Plan: see GI note. (8) Anemia Assessment & Plan: Transfuse 2 units PRBC today (9) Altered mental status Assessment & Plan: Worsening. ICU status (10) Renal failure Assessment & Plan: S/P placement Dialysis cath today. See nephrology note. (11) Respiratory failure Assessment & Plan: Due to CHF. Cont mech vent per pulmonary. Continue antibiotic per ID (12) Bradycardia Assessment & Plan: see cardiology note. (13) Hypotension Assessment & Plan: Continue dopamine Status: not improved KATHARINA POND Jan 29, 2017 16:27
--- NOTE | 2017-01-29 16:30 | Infectious Diseases Prog Note ---
Assessment/Plan Assessment/Plan Assesment: Encephalopathy- possibly multifactorial- hepatic encephalopathy, infection- worsening now due to hypercapnea (transferred to ICU 01/21), on bipap> intubated Acute respiratory failure s/p intubation - 2ry to hypercapnea, PNA; now ARDS -CXR 01/29: Pulmonary parenchymal disease, likely ARDS, overall stable or may be slightly increased in the right lung apex over 2 days Sepsis 2ry to PNA and Bacteremia HCAP 2ry to ESBL. E.coli -CXR 01/25: Extensive bilateral interstitial and airspace edema/infiltrates slightly increased in the right lung. Stable support lines and tubes. -CXR 01/23 : Interval worsening pulmonary edema. -repeat sp cx 01/26: +4 MDR A.baumani (I Ceftazidime, R to carbapenem and aminogyclosides; Sensitiviteis to Colistin, tigecycline, minocycline not currently available; ? Colonizer -Sp cx 01/22: +2 ESBK E.coli, +2 C. albicans (colonizer) MRSA bacteremia- with repeat Bcx growing CoNS (?contaminant vs real) -01/16 04/23 BCx MRSA (S. Vanco JOSE A 1), repeat Bcx 01/19 Neg, 01/21 04/23 CoNS ( contaminant), 01/24 Bcx 04/23 CoNs, Bcx 01/26 NTD x2 -TTE 01/19(limited study): No aortic regurgitation.Trace mitral regurgitation.Mitral diastolic velocities suggest reduced left ventricular relaxation c/w diastolic dysfunction grade 1.Moderate tricuspid regurgitation. Leukocytosis, previously worsened up to 24, now trending down -01/26. pyuria improving (WBC 10-15); ucx C. albicans (colonizer) -10/ u/a WBC 30-40, ucx yeast (colonizer) -Sp cx ESBL E.coli, diaz (colonizer) Probable MDR UTI, pyuria, s/p Rx -u/a 01/16 WBC too many to count,nit neg ,leuk est +3; UCx x3 grew >100K MDR A.baumani complex (S. tigecycline/Minocycline, Polymixin B/Colistin), >100K PsA (S. Cefepime, Zosyn; R Cipro/Levo); a prior isolated on a ucx from the same day isolated MDR PsA (I. Cefepime, R ceftzadime, Meropenem; S. Tygecicine, amikacin) -renal u/s: Nondiagnostic exam Metabolic acidosis, 2ry to renal failure- now improved after initiation of HD 01/28 RAMYA on CKD, started on HD 01/28 Cirrhosis Anemia & thrombocytopenia DM type 2 Morbid obesity PLAN: -Continue Ertapenem for ESBL E. coli in sputum (abx d# /) -s/p 1 dose Amikacin 01/28 -s/p 7d Cefepime 10/ -s/p 3d Amikacin 10/7 -s/p 7d Minocycline 10/7 -s/p 3d IV vanco 01/18 -Continue IV Vancomycin #11 For MRSA bacteremia (per pharmacy, renally dose); duration to follow pending repeat Bcx -f/u repeat Bcx 01/26, 01/28 -f/u requested Dapto susceptibilities for MRSA in bcx (requested on 01/28) -Will d/c Ceftaroline as now persistent MRSA bacteremia as originally thought. -continue prophylatic PO Vancomycin #7 -Add Inhaled colistin 75mg bid for MDR ABC in sputum -requested Colistin, ceftazidime-avibactam, tigecycline and minocycline susceptibilities 01/29 -f/u Repeat echo -if persistent bacteremia and if consistent with goals of care will need NAM Discussed with RN, pharmacy and micro lab staff. Poor px; critically ill Subjective Allergies: Coded Allergies: PENICILLINS (Unverified Allergy, Unknown, 03/22/15) Subjective for HD today afebrile worsening leukocytosis and metabolic acidosis Objective Vital Signs Last 24 Hour Vital Signs Date Time Temp Pulse Resp B/P (MAP) Pulse Ox O2 Delivery O2 Flow Rate FiO2 01/29/17 15:00 20 163/58 97 01/29/17 14:00 20 159/58 94 01/29/17 13:23 71 20 50 01/29/17 13:00 20 156/60 97 01/29/17 12:00 70 01/29/17 12:00 20 159/62 97 01/29/17 12:00 60 01/29/17 11:29 70 20 50 01/29/17 11:00 20 150/59 95 01/29/17 10:00 72 158/60 01/29/17 09:56 150/59 01/29/17 09:28 70 20 60 01/29/17 09:00 65 149/56 97 Mechanical Ventilator 60 01/29/17 08:50 8.0 60 01/29/17 08:00 97.6 66 20 136/55 95 Mechanical Ventilator 60 01/29/17 08:00 72 01/29/17 08:00 136/55 01/29/17 07:23 66 20 60 01/29/17 07:00 63 20 140/77 95 Mechanical Ventilator 60 01/29/17 07:00 140/77 01/29/17 06:00 68 20 148/57 100 Mechanical Ventilator 60 01/29/17 06:00 148/57 01/29/17 05:26 65 20 60 01/29/17 05:00 66 20 144/56 100 Mechanical Ventilator 60 01/29/17 05:00 144/56 01/29/17 04:00 60 01/29/17 04:00 97.7 65 20 135/48 99 Mechanical Ventilator 60 01/29/17 04:00 135/48 01/29/17 04:00 65 01/29/17 03:25 74 20 60 01/29/17 03:00 71 20 114/55 100 Mechanical Ventilator 60 01/29/17 03:00 114/55 01/29/17 02:00 72 20 135/51 97 Mechanical Ventilator 60 01/29/17 02:00 135/51 01/29/17 01:13 73 20 60 01/29/17 01:00 129/48 01/29/17 01:00 72 20 129/48 97 Mechanical Ventilator 60 01/29/17 00:00 97.8 77 20 150/55 97 Mechanical Ventilator 60 01/29/17 00:00 77 01/29/17 00:00 60 01/29/17 00:00 150/55 01/28/17 23:19 77 20 60 01/28/17 23:00 78 20 130/49 98 Mechanical Ventilator 60 01/28/17 23:00 130/49 01/28/17 22:00 80 20 131/49 98 Mechanical Ventilator 60 01/28/17 22:00 131/49 01/28/17 21:03 85 20 60 01/28/17 21:00 122/44 01/28/17 21:00 80 20 122/44 98 Mechanical Ventilator 60 01/28/17 20:05 Mechanical Ventilator 01/28/17 20:00 60 01/28/17 20:00 120/51 01/28/17 20:00 83 01/28/17 20:00 97.6 83 20 120/51 98 Mechanical Ventilator 60 01/28/17 19:03 87 20 60 01/28/17 18:00 168/59 01/28/17 18:00 87 20 168/59 95 Mechanical Ventilator 60 01/28/17 17:00 133/45 01/28/17 17:00 72 20 133/45 94 Mechanical Ventilator 60 01/28/17 16:32 70 20 60 01/28/17 16:20 Mechanical Ventilator Height (Feet): 5 Height (Inches): 6.00 Weight (Pounds): 285 Objective HEENT: No pale conjunctivae. No icterus.ETT in place NECK: No lymphadenopathy. CHEST: coarse breath sounds HEART: S1 and S2. ABDOMEN: Soft and obese. EXTREMITIES: No cyanosis. NEUROLOGIC: lethargic. Skin: no rashes Microbiology Date/Time Source Procedure Growth Status 01/26/17 18:30 Blood Blood Culture - Preliminary NO GROWTH AFTER 48 HOURS Resulted Laboratory Tests Test 01/28/17 18:00 01/29/17 05:05 01/29/17 08:50 Coccidioides Antibody (Comp Fix) Pending Cryptococcus Antigen Pending White Blood Count 16.3 K/UL (4.8-10.8) H Red Blood Count 3.15 M/UL (4.20-5.40) L Hemoglobin 9.8 G/DL (12.0-16.0) L Hematocrit 30.2 % (37.0-47.0) L Mean Corpuscular Volume 96 FL (80-99) Mean Corpuscular Hemoglobin 31.0 PG (27.0-31.0) Mean Corpuscular Hemoglobin Concent 32.3 G/DL (32.0-36.0) Red Cell Distribution Width 16.0 % (11.6-14.8) H Platelet Count 24 K/UL (150-450) L Mean Platelet Volume 10.6 FL (6.5-10.1) H Neutrophils (%) (Auto) % (45.0-75.0) Lymphocytes (%) (Auto) % (20.0-45.0) Monocytes (%) (Auto) % (1.0-10.0) Eosinophils (%) (Auto) % (0.0-3.0) Basophils (%) (Auto) % (0.0-2.0) Differential Total Cells Counted 100 Neutrophils % (Manual) 95 % (45-75) H Lymphocytes % (Manual) 2 % (20-45) L Monocytes % (Manual) 3 % (1-10) Eosinophils % (Manual) 0 % (0-3) Basophils % (Manual) 0 % (0-2) Band Neutrophils 0 % (0-8) Platelet Estimate Decreased L Platelet Morphology Normal Anisocytosis 1+ Sodium Level 139 MMOL/L (136-145) Potassium Level 3.8 MMOL/L (3.5-5.1) Chloride Level 108 MMOL/L (98-107) H Carbon Dioxide Level 21 MMOL/L (21-32) Anion Gap 10 (5-15) Blood Urea Nitrogen 44 mg/dL (7-18) H Creatinine 3.6 MG/DL (0.55-1.30) H Estimat Glomerular Filtration Rate mL/min (>60) Glucose Level 225 MG/DL (74-106) H Uric Acid 5.8 MG/DL (2.6-7.2) Calcium Level 9.5 MG/DL (8.5-10.1) Phosphorus Level 3.3 MG/DL (2.5-4.9) Magnesium Level 1.9 MG/DL (1.8-2.4) Total Bilirubin 1.5 MG/DL (0.2-1.0) H Direct Bilirubin 0.6 MG/DL (0.0-0.3) H Gamma Glutamyl Transpeptidase 57 U/L (5-85) Aspartate Amino Transf (AST/SGOT) 56 U/L (15-37) H Alanine Aminotransferase (ALT/SGPT) 9 U/L (12-78) L Alkaline Phosphatase 191 U/L (46-116) H Total Creatine Kinase 40 U/L (26-308) C-Reactive Protein, Quantitative 13.0 mg/dL (0.00-0.90) H Pro-B-Type Natriuretic Peptide 23556 (0-125) H Total Protein 5.4 G/DL (6.4-8.2) L Albumin 1.8 G/DL (3.4-5.0) L Globulin 3.6 g/dL Albumin/Globulin Ratio 0.5 (1.0-2.7) L Arterial Blood pH 7.370 (7.350-7.450) Arterial Blood Partial Pressure CO2 35.9 mmHg (35.0-45.0) Arterial Blood Partial Pressure O2 60.4 mmHg (75.0-100.0) L Arterial Blood HCO3 20.3 mmol/L (22.0-26.0) L Arterial Blood Oxygen Saturation 90.3 % (92.0-98.0) L Arterial Blood Base Excess -4.4 Bon Test Positive Current Medications Medications (Trade) Dose Ordered Sig/Pavel Route PRN Reason Start Time Stop Time Status Last Admin Dose Admin Acetaminophen (Tylenol) 650 mg Q4H PRN ORAL T>100.5 01/21/17 14:30 02/15/17 14:29 Ceftaroline Fosamil 200 mg/ Dextrose 110 ml @ 220 mls/hr Q12HR@1100,2300 IV 01/27/17 20:00 02/03/17 19:59 01/29/17 09:54 Chlorhexidine Gluconate (Dianne-Hex 2%) 1 applic DAILY@2000 TOPIC 01/25/17 20:00 02/24/17 19:59 01/28/17 20:34 Clotrimazole (Lotrimin) 1 applic EVERY 12 HOURS TOPIC 01/21/17 21:00 02/18/17 13:59 01/29/17 09:57 Dextrose (Dextrose 50%) STAT PRN IV Hypoglycemia 01/27/17 07:45 02/26/17 07:44 Dopamine HCl/ Dextrose 250 ml @ 0 mls/hr Q24H IV 01/25/17 11:15 02/24/17 11:14 01/29/17 09:56 Ertapenem 0.5 gm/ Sodium Chloride 55 ml @ 110 mls/hr Q24H IVPB 01/28/17 09:00 02/02/17 08:59 01/29/17 09:54 Hydrocortisone (Solu-CORTEF) 100 mg EVERY 8 HOURS IV 01/29/17 14:00 01/31/17 06:01 01/29/17 14:42 Insulin Aspart (NovoLOG) EVERY 6 HOURS SUBQ 01/27/17 18:00 02/26/17 11:29 01/29/17 12:10 Lactulose (Cephulac) 10 gm BID ORAL 01/23/17 09:00 02/18/17 12:59 01/29/17 09:54 Metoclopramide HCl (Reglan) 5 mg Q8H PRN IVP Nausea & Vomiting 01/29/17 11:30 02/28/17 11:29 Nitroglycerin (Ntg) 0.4 mg Q5MIN X 3 DOSES PRN SL Prn Chest Pain 01/21/17 14:30 02/15/17 14:29 Nystatin (Nystop Powder) 1 applic THREE TIMES A DAY TOPIC 01/22/17 13:00 02/21/17 12:59 01/29/17 12:07 Pantoprazole (Protonix) 40 mg EVERY 12 HOURS IVP 01/21/17 21:00 02/20/17 20:59 01/29/17 09:56 Polyethylene Glycol (Miralax) 17 gm DAILYPRN PRN ORAL Constipation 01/21/17 14:00 02/17/17 13:59 Rifaximin (Xifaxan) 550 mg EVERY 12 HOURS ORAL 01/29/17 12:00 02/05/17 11:59 01/29/17 12:07 Vancomycin HCl (Vanco rx to dose) 1 ea DAILY PRN MISC Per rx protocol 01/22/17 09:00 02/18/17 11:44 Vancomycin HCl (Vancomycin) 125 mg BID ORAL 01/23/17 19:30 01/30/17 19:29 01/29/17 12:07 Nereyda Monroe M.D. Jan 29, 2017 16:30
[2017-01-29] MEDS ORDERED: Colistin for inhalation INH SCH (18:30)
--- NOTE | 2017-01-29 19:49 | General Progress Note ---
Assessment/Plan Assessment/Plan ASSESSMENT AND RECOMMENDATIONS 1.Thrombocytopenia 2/2 sepsis --> give plts if below 10k or if below 20k and febrile --> ID following 2. Coagulopathy secondary to underlying liver disease. 3. Thrombocytopenia secondary to underlying splenomegaly. 4. Anemia 2/2 chronic disease --> s/p transfusion --> Watch HH, transfuse if below 8 5. Leukocytosis secondary to underlying infection. white count increasing 6. Diabetes mellitus. Continue to closely monitor. 7. Altered mental status 8. RAMYA on CKD, is to receive hemodialysis Subjective ROS Limited/Unobtainable: Yes Allergies: Coded Allergies: PENICILLINS (Unverified Allergy, Unknown, 03/22/15) Subjective on a ventilator, no events overnight Objective Last 24 Hour Vital Signs Date Time Temp Pulse Resp B/P (MAP) Pulse Ox O2 Delivery O2 Flow Rate FiO2 01/29/17 19:00 20 164/61 95 01/29/17 18:33 67 20 50 01/29/17 18:00 20 148/58 95 01/29/17 17:35 70 20 50 01/29/17 17:00 97.1 20 162/61 95 01/29/17 16:09 71 20 50 01/29/17 16:00 20 158/59 95 01/29/17 16:00 71 01/29/17 16:00 60 01/29/17 15:00 20 163/58 97 01/29/17 14:00 20 159/58 94 01/29/17 13:23 71 20 50 01/29/17 13:00 20 156/60 97 01/29/17 12:00 70 01/29/17 12:00 20 159/62 97 01/29/17 12:00 60 01/29/17 11:29 70 20 50 01/29/17 11:00 20 150/59 95 01/29/17 10:00 72 158/60 01/29/17 09:56 150/59 01/29/17 09:28 70 20 60 01/29/17 09:00 65 149/56 97 Mechanical Ventilator 60 01/29/17 08:50 8.0 60 01/29/17 08:00 97.6 66 20 136/55 95 Mechanical Ventilator 60 01/29/17 08:00 72 01/29/17 08:00 136/55 01/29/17 07:23 66 20 60 10/12/17 07:00 63 20 140/77 95 Mechanical Ventilator 60 01/29/17 07:00 140/77 01/29/17 06:00 68 20 148/57 100 Mechanical Ventilator 60 01/29/17 06:00 148/57 01/29/17 05:26 65 20 60 01/29/17 05:00 66 20 144/56 100 Mechanical Ventilator 60 01/29/17 05:00 144/56 01/29/17 04:00 60 01/29/17 04:00 97.7 65 20 135/48 99 Mechanical Ventilator 60 01/29/17 04:00 135/48 01/29/17 04:00 65 01/29/17 03:25 74 20 60 01/29/17 03:00 71 20 114/55 100 Mechanical Ventilator 60 01/29/17 03:00 114/55 01/29/17 02:00 72 20 135/51 97 Mechanical Ventilator 60 01/29/17 02:00 135/51 01/29/17 01:13 73 20 60 01/29/17 01:00 129/48 01/29/17 01:00 72 20 129/48 97 Mechanical Ventilator 60 01/29/17 00:00 97.8 77 20 150/55 97 Mechanical Ventilator 60 01/29/17 00:00 77 01/29/17 00:00 60 01/29/17 00:00 150/55 01/28/17 23:19 77 20 60 01/28/17 23:00 78 20 130/49 98 Mechanical Ventilator 60 01/28/17 23:00 130/49 01/28/17 22:00 80 20 131/49 98 Mechanical Ventilator 60 01/28/17 22:00 131/49 01/28/17 21:03 85 20 60 01/28/17 21:00 122/44 01/28/17 21:00 80 20 122/44 98 Mechanical Ventilator 60 01/28/17 20:05 Mechanical Ventilator 01/28/17 20:00 60 01/28/17 20:00 120/51 01/28/17 20:00 83 01/28/17 20:00 97.6 83 20 120/51 98 Mechanical Ventilator 60 Intake and Output 01/29/17 01/30/17 19:00 07:00 Intake Total 75 ml Output Total 25 ml Balance 50 ml IV Total 75 ml Output Urine Total 25 ml # Voids 5 # Bowel Movements 100 Laboratory Tests 01/29/17 05:05: White Blood Count 16.3H, Red Blood Count 3.15L, Hemoglobin 9.8L, Hematocrit 30.2L, Mean Corpuscular Volume 96, Mean Corpuscular Hemoglobin 31.0, Mean Corpuscular Hemoglobin Concent 32.3, Red Cell Distribution Width 16.0H, Platelet Count 24L, Mean Platelet Volume 10.6H, Neutrophils (%) (Auto) , Lymphocytes (%) (Auto) , Monocytes (%) (Auto) , Eosinophils (%) (Auto) , Basophils (%) (Auto) , Differential Total Cells Counted 100, Neutrophils % ( Manual) 95H, Lymphocytes % (Manual) 2L, Monocytes % (Manual) 3, Eosinophils % ( Manual) 0, Basophils % (Manual) 0, Band Neutrophils 0, Platelet Estimate DecreasedL, Platelet Morphology Normal, Anisocytosis 1+, Sodium Level 139, Potassium Level 3.8, Chloride Level 108H, Carbon Dioxide Level 21, Anion Gap 10 , Blood Urea Nitrogen 44H, Creatinine 3.6H, Estimat Glomerular Filtration Rate , Glucose Level 225H, Uric Acid 5.8, Calcium Level 9.5, Phosphorus Level 3.3, Magnesium Level 1.9, Total Bilirubin 1.5H, Direct Bilirubin 0.6H, Gamma Glutamyl Transpeptidase 57, Aspartate Amino Transf (AST/SGOT) 56H, Alanine Aminotransferase (ALT/SGPT) 9L, Alkaline Phosphatase 191H, Total Creatine Kinase 40, C-Reactive Protein, Quantitative 13.0H, Pro-B-Type Natriuretic Peptide 79693L, Total Protein 5.4L, Albumin 1.8L, Globulin 3.6, Albumin/ Globulin Ratio 0.5L 01/29/17 08:50: Arterial Blood pH 7.370, Arterial Blood Partial Pressure CO2 35.9, Arterial Blood Partial Pressure O2 60.4L, Arterial Blood HCO3 20.3L, Arterial Blood Oxygen Saturation 90.3L, Arterial Blood Base Excess -4.4, Bon Test Positive Height (Feet): 5 Height (Inches): 6.00 Weight (Pounds): 285 General Appearance: no apparent distress EENT: TMs normal Neck: supple Cardiovascular: no JVD Respiratory/Chest: decreased breath sounds Edema: moderate edema Chriss Pat Jan 29, 2017 19:49
[2017-01-29] MEDS: Dyna-Hex 2% Top Sol 2oz TOPIC SCH (20:21)
[2017-01-29] MEDS: Colistin for inhalation INH SCH (21:45)
[2017-01-30] VITALS (34 sets, daily range): BP systolic 85–194; BP diastolic 36–79
--- NOTE | 2017-01-30 00:32 | General Progress Note ---
Assessment/Plan Status: stable Assessment/Plan encephalopathy Subjective Neurologic/Psychiatric: Reports: anxiety, depressed Allergies: Coded Allergies: PENICILLINS (Unverified Allergy, Unknown, 03/22/15) Subjective waxing and waning of consciousness. decrease anxiety Objective Last 24 Hour Vital Signs Date Time Temp Pulse Resp B/P (MAP) Pulse Ox O2 Delivery O2 Flow Rate FiO2 01/29/17 23:09 68 20 50 01/29/17 22:00 70 20 160/59 96 01/29/17 21:56 72 20 98 Mechanical Ventilator 15.0 01/29/17 21:44 72 20 95 Mechanical Ventilator 15.0 50 01/29/17 21:44 50 01/29/17 21:00 69 20 157/57 97 01/29/17 20:42 71 20 50 01/29/17 20:00 60 01/29/17 20:00 97.3 69 20 137/52 97 01/29/17 19:00 20 164/61 95 01/29/17 18:33 67 20 50 01/29/17 18:00 20 148/58 95 01/29/17 17:35 70 20 50 01/29/17 17:00 97.1 20 162/61 95 01/29/17 16:09 71 20 50 01/29/17 16:00 20 158/59 95 01/29/17 16:00 71 01/29/17 16:00 60 01/29/17 15:00 20 163/58 97 01/29/17 14:00 20 159/58 94 01/29/17 13:23 71 20 50 01/29/17 13:00 20 156/60 97 01/29/17 12:00 70 01/29/17 12:00 20 159/62 97 01/29/17 12:00 60 01/29/17 11:29 70 20 50 01/29/17 11:00 20 150/59 95 01/29/17 10:00 72 158/60 01/29/17 09:56 150/59 01/29/17 09:28 70 20 60 01/29/17 09:00 65 149/56 97 Mechanical Ventilator 60 01/29/17 08:50 8.0 60 01/29/17 08:00 97.6 66 20 136/55 95 Mechanical Ventilator 60 01/29/17 08:00 72 01/29/17 08:00 136/55 10/12/17 07:23 66 20 60 01/29/17 07:00 63 20 140/77 95 Mechanical Ventilator 60 01/29/17 07:00 140/77 01/29/17 06:00 68 20 148/57 100 Mechanical Ventilator 60 01/29/17 06:00 148/57 01/29/17 05:26 65 20 60 01/29/17 05:00 66 20 144/56 100 Mechanical Ventilator 60 01/29/17 05:00 144/56 01/29/17 04:00 60 01/29/17 04:00 97.7 65 20 135/48 99 Mechanical Ventilator 60 01/29/17 04:00 135/48 01/29/17 04:00 65 01/29/17 03:25 74 20 60 01/29/17 03:00 71 20 114/55 100 Mechanical Ventilator 60 01/29/17 03:00 114/55 01/29/17 02:00 72 20 135/51 97 Mechanical Ventilator 60 01/29/17 02:00 135/51 01/29/17 01:13 73 20 60 01/29/17 01:00 129/48 01/29/17 01:00 72 20 129/48 97 Mechanical Ventilator 60 Laboratory Tests 01/29/17 05:05: White Blood Count 16.3H, Red Blood Count 3.15L, Hemoglobin 9.8L, Hematocrit 30.2L, Mean Corpuscular Volume 96, Mean Corpuscular Hemoglobin 31.0, Mean Corpuscular Hemoglobin Concent 32.3, Red Cell Distribution Width 16.0H, Platelet Count 24L, Mean Platelet Volume 10.6H, Neutrophils (%) (Auto) , Lymphocytes (%) (Auto) , Monocytes (%) (Auto) , Eosinophils (%) (Auto) , Basophils (%) (Auto) , Differential Total Cells Counted 100, Neutrophils % ( Manual) 95H, Lymphocytes % (Manual) 2L, Monocytes % (Manual) 3, Eosinophils % ( Manual) 0, Basophils % (Manual) 0, Band Neutrophils 0, Platelet Estimate DecreasedL, Platelet Morphology Normal, Anisocytosis 1+, Sodium Level 139, Potassium Level 3.8, Chloride Level 108H, Carbon Dioxide Level 21, Anion Gap 10 , Blood Urea Nitrogen 44H, Creatinine 3.6H, Estimat Glomerular Filtration Rate , Glucose Level 225H, Uric Acid 5.8, Calcium Level 9.5, Phosphorus Level 3.3, Magnesium Level 1.9, Total Bilirubin 1.5H, Direct Bilirubin 0.6H, Gamma Glutamyl Transpeptidase 57, Aspartate Amino Transf (AST/SGOT) 56H, Alanine Aminotransferase (ALT/SGPT) 9L, Alkaline Phosphatase 191H, Total Creatine Kinase 40, C-Reactive Protein, Quantitative 13.0H, Pro-B-Type Natriuretic Peptide 82514P, Total Protein 5.4L, Albumin 1.8L, Globulin 3.6, Albumin/ Globulin Ratio 0.5L 01/29/17 08:50: Arterial Blood pH 7.370, Arterial Blood Partial Pressure CO2 35.9, Arterial Blood Partial Pressure O2 60.4L, Arterial Blood HCO3 20.3L, Arterial Blood Oxygen Saturation 90.3L, Arterial Blood Base Excess -4.4, Bon Test Positive Height (Feet): 5 Height (Inches): 6.00 Weight (Pounds): 285 General Appearance: lethargic, agitated, morbidly obese Neurologic: disoriented Oj Medel M.D. Jan 30, 2017 00:32
[2017-01-30] MEDS: Hydrocortisone 100mg Inj IV SCH ×3 (05:31→21:31)
[2017-01-30] MEDS: NovoLOG Insulin Flexpen SUBQ SCH ×3 (05:33→19:09)
[2017-01-30 06:18] LABS: HEMATOCRIT 30.4 % (37.0-47.0); HEMOGLOBIN 9.9 G/DL (12.0-16.0); MEAN CORPUSCULAR VOLUME 96 FL (80-99); PLATELET COUNT 22 K/UL (150-450); RED BLOOD COUNT 3.17 M/UL (4.20-5.40); RED CELL DISTRIBUTION WIDTH 16.9 % (11.6-14.8); WHITE BLOOD COUNT 13.7 K/UL (4.8-10.8)
[2017-01-30 06:46] LABS: ALANINE AMINOTRANSFERASE 11 U/L (12-78); ALBUMIN/GLOBULIN RATIO 0.5 (1.0-2.7); ALKALINE PHOSPHATASE 205 U/L (46-116); ANION GAP 9 (5-15); ASPARTATE AMINO TRANSFERASE 50 U/L (15-37); BILIRUBIN,TOTAL 1.2 MG/DL (0.2-1.0); BLOOD UREA NITROGEN 50 mg/dL (7-18); CARBON DIOXIDE 23 MMOL/L (21-32); CHLORIDE 109 MMOL/L (98-107); CREATININE 4.2 MG/DL (0.55-1.30); GAMMA GLUTAMYL TRANSPEPTIDASE 62 U/L (5-85); PHOSPHORUS 3.4 MG/DL (2.5-4.9); POTASSIUM 3.3 MMOL/L (3.5-5.1); SODIUM 141 MMOL/L (136-145)
[2017-01-30 07:47] LABS: BILIRUBIN,DIRECT 0.7 MG/DL (0.0-0.3)
--- NOTE | 2017-01-30 09:48 | General Progress Note ---
Assessment/Plan Status: stable - from renal stand Assessment/Plan Acute on chronic renal failure- multifactorial CHF DM HTN Sepsis Now: Acute respiratory failure- Intubated - Altered level of consciousness - ESBL (extended spectrum beta-lactamase) producing bacteria infection - Cardiomegaly - DM (diabetes mellitus) - HTN (hypertension) - UTI (urinary tract infection) - Anemia - High Cholestrol - COPD - YELENA - Fatty liver Plan: stop IV fluid- Increase Tube feeding add midodrine next dialysis 01/30- done - 3 liters removed Transfuse as needed Optimize cardiac and pulmonary status 2D echo results noted avoid nephrotoxics monitor renal parameters Urine studies per orders poor prognosis Subjective ROS Limited/Unobtainable: No Allergies: Coded Allergies: PENICILLINS (Unverified Allergy, Unknown, 03/22/15) Objective Last 24 Hour Vital Signs Date Time Temp Pulse Resp B/P (MAP) Pulse Ox O2 Delivery O2 Flow Rate FiO2 01/30/17 09:12 Mechanical Ventilator 15.0 50 01/30/17 08:00 90 01/30/17 07:00 92 20 185/78 95 01/30/17 06:00 73 20 128/55 95 01/30/17 05:00 70 20 162/70 96 01/30/17 04:39 69 20 50 01/30/17 04:30 Mechanical Ventilator 01/30/17 04:00 69 01/30/17 04:00 97.3 69 20 150/64 96 01/30/17 04:00 60 01/30/17 03:02 68 20 50 01/30/17 03:00 70 20 165/63 95 01/30/17 02:00 69 20 137/59 94 01/30/17 01:00 71 20 157/50 97 01/30/17 00:41 66 20 50 01/30/17 00:00 68 01/30/17 00:00 97.1 70 20 160/60 95 01/29/17 23:09 68 20 50 01/29/17 23:00 69 20 161/64 96 01/29/17 22:00 70 20 160/59 96 01/29/17 21:56 72 20 98 Mechanical Ventilator 15.0 01/29/17 21:44 72 20 95 Mechanical Ventilator 15.0 50 01/29/17 21:44 50 01/29/17 21:00 69 20 157/57 97 01/29/17 20:42 71 20 50 01/29/17 20:00 67 01/29/17 20:00 60 01/29/17 20:00 97.3 69 20 137/52 97 01/29/17 19:00 20 164/61 95 01/29/17 18:33 67 20 50 01/29/17 18:00 20 148/58 95 01/29/17 17:35 70 20 50 01/29/17 17:00 97.1 20 162/61 95 01/29/17 16:09 71 20 50 01/29/17 16:00 20 158/59 95 01/29/17 16:00 71 01/29/17 16:00 60 01/29/17 15:00 20 163/58 97 01/29/17 14:00 20 159/58 94 01/29/17 13:23 71 20 50 01/29/17 13:00 20 156/60 97 01/29/17 12:00 70 01/29/17 12:00 20 159/62 97 01/29/17 12:00 60 01/29/17 11:29 70 20 50 01/29/17 11:00 20 150/59 95 01/29/17 10:00 72 158/60 01/29/17 09:56 150/59 Intake and Output 01/30/17 01/31/17 19:00 07:00 Output Total 3000 ml Balance -3000 ml Hemodialysis UF 3000 ml Laboratory Tests 01/30/17 04:20: White Blood Count 13.7H, Red Blood Count 3.17L, Hemoglobin 9.9L, Hematocrit 30.4L, Mean Corpuscular Volume 96, Mean Corpuscular Hemoglobin 31.3H, Mean Corpuscular Hemoglobin Concent 32.6, Red Cell Distribution Width 16.9H, Platelet Count 22L, Mean Platelet Volume 15.9H, Neutrophils (%) (Auto) , Lymphocytes (%) (Auto) , Monocytes (%) (Auto) , Eosinophils (%) (Auto) , Basophils (%) (Auto) , Differential Total Cells Counted 100, Neutrophils % ( Manual) 96H, Lymphocytes % (Manual) 3L, Monocytes % (Manual) 1, Eosinophils % ( Manual) 0, Basophils % (Manual) 0, Band Neutrophils 0, Platelet Estimate DecreasedL, Platelet Morphology Normal, [place] Cells 1+, Schistocytes 1+, Sodium Level 141, Potassium Level 3.3L, Chloride Level 109H, Carbon Dioxide Level 23, Anion Gap 9, Blood Urea Nitrogen 50H, Creatinine 4.2H, Estimat Glomerular Filtration Rate , Glucose Level 198H, Uric Acid 6.3, Calcium Level 10.0, Phosphorus Level 3.4, Magnesium Level 2.0, Total Bilirubin 1.2H, Direct Bilirubin 0.7H, Gamma Glutamyl Transpeptidase 62, Aspartate Amino Transf (AST/ SGOT) 50H, Alanine Aminotransferase (ALT/SGPT) 11L, Alkaline Phosphatase 205H, C -Reactive Protein, Quantitative 14.1H, Pro-B-Type Natriuretic Peptide 85917O, Total Protein 6.0L, Albumin 2.0L, Globulin 4.0, Albumin/Globulin Ratio 0.5L Height (Feet): 5 Height (Inches): 6.00 Weight (Pounds): 284 General Appearance: no apparent distress, lethargic EENT: other - on vent Cardiovascular: normal rate Respiratory/Chest: decreased breath sounds Abdomen: soft, other - obese Objective no other change ANDERS MOLINA Jan 30, 2017 09:47
[2017-01-30] MEDS ORDERED: KCl 10% 40mEq/30ml liquid NG ONE (10:00)
--- NOTE | 2017-01-30 10:21 | Pulmonolgy Critical Care Note ---
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 Respiratory: monitor respiratory rate, adjust FIO2, CXR Cardiac: stop pressors, continue to monitor HR/BP Renal: F/U I&O, keep IV fluid, other - dialyzed today Infectious Disease: continue antibiotics Gastrointestinal: continue feedings/current rate Endocrine: monitor blood sugar, check TSH, continue sliding scale insulin Hematologic: monitor H/H, transfuse if hgb<8.5 Neurologic: keep patient comfortable Affect: PRN ativan Time Spent (Minutes): 30 Notes Reviewed: tube sizer operator, cardio, renal Discussed with: nurses, consultants, counseling case managerhealth safety and environment manager - Objective Last 24 Hour Vital Signs Date Time Temp Pulse Resp B/P (MAP) Pulse Ox O2 Delivery O2 Flow Rate FiO2 01/30/17 09:12 Mechanical Ventilator 15.0 50 01/30/17 08:00 90 01/30/17 07:00 92 20 185/78 95 01/30/17 06:00 73 20 128/55 95 01/30/17 05:00 70 20 162/70 96 01/30/17 04:39 69 20 50 01/30/17 04:30 Mechanical Ventilator 01/30/17 04:00 69 01/30/17 04:00 97.3 69 20 150/64 96 01/30/17 04:00 60 01/30/17 03:02 68 20 50 01/30/17 03:00 70 20 165/63 95 01/30/17 02:00 69 20 137/59 94 01/30/17 01:00 71 20 157/50 97 01/30/17 00:41 66 20 50 01/30/17 00:00 68 01/30/17 00:00 97.1 70 20 160/60 95 01/29/17 23:09 68 20 50 01/29/17 23:00 69 20 161/64 96 01/29/17 22:00 70 20 160/59 96 01/29/17 21:56 72 20 98 Mechanical Ventilator 15.0 01/29/17 21:44 72 20 95 Mechanical Ventilator 15.0 50 01/29/17 21:44 50 01/29/17 21:00 69 20 157/57 97 01/29/17 20:42 71 20 50 01/29/17 20:00 67 01/29/17 20:00 60 01/29/17 20:00 97.3 69 20 137/52 97 01/29/17 19:00 20 164/61 95 01/29/17 18:33 67 20 50 01/29/17 18:00 20 148/58 95 01/29/17 17:35 70 20 50 01/29/17 17:00 97.1 20 162/61 95 01/29/17 16:09 71 20 50 01/29/17 16:00 20 158/59 95 01/29/17 16:00 71 01/29/17 16:00 60 01/29/17 15:00 20 163/58 97 01/29/17 14:00 20 159/58 94 01/29/17 13:23 71 20 50 01/29/17 13:00 20 156/60 97 01/29/17 12:00 70 01/29/17 12:00 20 159/62 97 01/29/17 12:00 60 01/29/17 11:29 70 20 50 01/29/17 11:00 20 150/59 95 Status: awake Condition: critical HEENT: atraumatic Neck: full ROM Lungs: chest wall tender Abdomen: soft, active bowel sounds Extremities: no C/C/E, edema Micro: Microbiology Date/Time Source Procedure Growth Status 01/28/17 23:15 Blood Blood Culture - Preliminary NO GROWTH AFTER 24 HOURS Resulted 01/28/17 18:00 Blood Blood Culture - Preliminary NO GROWTH AFTER 24 HOURS Resulted 01/29/17 17:30 Stool Clostridium difficile Toxin Assay - Final Complete Accucheck: 179 Critical Care - Subjective ROS Limited/Unobtainable: No ICU Day: 14 Condition: critical EKG Rhythm: Sinus Rhythm FI02: 50 Vent Support Breath Rate: 20 Vent Support Mode: AC Vent Tidal Volume: 700 Sputum Amount: Small PEEP: 0.0 PIP: 53 Drips: levophed Tube Feeding Amount: 20 I&O: Intake and Output 01/30/17 01/31/17 19:00 07:00 Output Total 3000 ml Balance -3000 ml Hemodialysis UF 3000 ml CXR: extensive infiltrate ET-Tube: 7.0 ET Position: 21 Labs: Laboratory Tests Test 01/30/17 04:20 White Blood Count 13.7 K/UL (4.8-10.8) H Red Blood Count 3.17 M/UL (4.20-5.40) L Hemoglobin 9.9 G/DL (12.0-16.0) L Hematocrit 30.4 % (37.0-47.0) L Mean Corpuscular Volume 96 FL (80-99) Mean Corpuscular Hemoglobin 31.3 PG (27.0-31.0) H Mean Corpuscular Hemoglobin Concent 32.6 G/DL (32.0-36.0) Red Cell Distribution Width 16.9 % (11.6-14.8) H Platelet Count 22 K/UL (150-450) L Mean Platelet Volume 15.9 FL (6.5-10.1) H Neutrophils (%) (Auto) % (45.0-75.0) Lymphocytes (%) (Auto) % (20.0-45.0) Monocytes (%) (Auto) % (1.0-10.0) Eosinophils (%) (Auto) % (0.0-3.0) Basophils (%) (Auto) % (0.0-2.0) Differential Total Cells Counted 100 Neutrophils % (Manual) 96 % (45-75) H Lymphocytes % (Manual) 3 % (20-45) L Monocytes % (Manual) 1 % (1-10) Eosinophils % (Manual) 0 % (0-3) Basophils % (Manual) 0 % (0-2) Band Neutrophils 0 % (0-8) Platelet Estimate Decreased L Platelet Morphology Normal Erich Cells 1+ Schistocytes 1+ Sodium Level 141 MMOL/L (136-145) Potassium Level 3.3 MMOL/L (3.5-5.1) L Chloride Level 109 MMOL/L (98-107) H Carbon Dioxide Level 23 MMOL/L (21-32) Anion Gap 9 (5-15) Blood Urea Nitrogen 50 mg/dL (7-18) H Creatinine 4.2 MG/DL (0.55-1.30) H Estimat Glomerular Filtration Rate mL/min (>60) Glucose Level 198 MG/DL (74-106) H Uric Acid 6.3 MG/DL (2.6-7.2) Calcium Level 10.0 MG/DL (8.5-10.1) Phosphorus Level 3.4 MG/DL (2.5-4.9) Magnesium Level 2.0 MG/DL (1.8-2.4) Total Bilirubin 1.2 MG/DL (0.2-1.0) H Direct Bilirubin 0.7 MG/DL (0.0-0.3) H Gamma Glutamyl Transpeptidase 62 U/L (5-85) Aspartate Amino Transf (AST/SGOT) 50 U/L (15-37) H Alanine Aminotransferase (ALT/SGPT) 11 U/L (12-78) L Alkaline Phosphatase 205 U/L (46-116) H C-Reactive Protein, Quantitative 14.1 mg/dL (0.00-0.90) H Pro-B-Type Natriuretic Peptide 72320 (0-125) H Total Protein 6.0 G/DL (6.4-8.2) L Albumin 2.0 G/DL (3.4-5.0) L Globulin 4.0 g/dL Albumin/Globulin Ratio 0.5 (1.0-2.7) L DIONI TRIANA Jan 30, 2017 10:21
[2017-01-30] MEDS: Colistin for inhalation INH SCH ×2 (10:26→21:20)
[2017-01-30] MEDS: Ertapenem 0.5 GM in NS 55 ML IVPB SCH (10:30)
[2017-01-30] MEDS: DOPamine 400mg/250ml 250 ML IV SCH (10:30)
[2017-01-30] MEDS: Pantoprazole Inj IVP SCH ×2 (10:31→20:59)
[2017-01-30] MEDS: Metoclopramide 10mg/2ml Inj IVP PRN (10:31)
[2017-01-30] MEDS: Vancomycin oral 125mg/2.5ml ORAL SCH (10:31)
[2017-01-30] MEDS: Lactulose 10gm/15ml UDC ORAL SCH ×2 (10:31→19:06)
[2017-01-30] MEDS: Nystatin Powder 100,000 units/gm 15gm TOPIC SCH ×3 (10:32→19:06)
[2017-01-30] MEDS: Midodrine 10mg tab NG SCH ×3 (11:36→19:06)
--- NOTE | 2017-01-30 11:37 | Geriatric Progress Note ---
Assessment/Plan Assessment/Plan encephalopathy mdd cont current meds Discussed with: patient Subjective Mood/Memory: Reports: prior hx, anxiety, depressed feelings Subjective lethargic not communicate agitated at times Geriatric Geriatric Last 24 Hour Vital Signs Date Time Temp Pulse Resp B/P (MAP) Pulse Ox O2 Delivery O2 Flow Rate FiO2 01/30/17 10:55 80 20 99 Mechanical Ventilator 60 01/30/17 10:46 90 20 60 01/30/17 10:41 50 01/30/17 10:40 78 20 96 Mechanical Ventilator 60 01/30/17 10:30 89/42 01/30/17 09:12 Mechanical Ventilator 15.0 50 01/30/17 09:07 81 20 50 01/30/17 08:00 50 01/30/17 08:00 90 01/30/17 07:09 90 20 50 01/30/17 07:00 92 20 185/78 95 01/30/17 06:00 73 20 128/55 95 01/30/17 05:00 70 20 162/70 96 01/30/17 04:39 69 20 50 01/30/17 04:30 Mechanical Ventilator 01/30/17 04:00 69 01/30/17 04:00 97.3 69 20 150/64 96 01/30/17 04:00 60 01/30/17 03:02 68 20 50 01/30/17 03:00 70 20 165/63 95 01/30/17 02:00 69 20 137/59 94 01/30/17 01:00 71 20 157/50 97 01/30/17 00:41 66 20 50 01/30/17 00:00 68 01/30/17 00:00 97.1 70 20 160/60 95 01/29/17 23:09 68 20 50 01/29/17 23:00 69 20 161/64 96 01/29/17 22:00 70 20 160/59 96 01/29/17 21:56 72 20 98 Mechanical Ventilator 15.0 01/29/17 21:44 72 20 95 Mechanical Ventilator 15.0 50 01/29/17 21:44 50 01/29/17 21:00 69 20 157/57 97 01/29/17 20:42 71 20 50 01/29/17 20:00 67 01/29/17 20:00 60 01/29/17 20:00 97.3 69 20 137/52 97 10/12/17 19:00 20 164/61 95 01/29/17 18:33 67 20 50 01/29/17 18:00 20 148/58 95 01/29/17 17:35 70 20 50 01/29/17 17:00 97.1 20 162/61 95 01/29/17 16:09 71 20 50 01/29/17 16:00 20 158/59 95 01/29/17 16:00 71 01/29/17 16:00 60 01/29/17 15:00 20 163/58 97 01/29/17 14:00 20 159/58 94 01/29/17 13:23 71 20 50 01/29/17 13:00 20 156/60 97 01/29/17 12:00 70 01/29/17 12:00 20 159/62 97 01/29/17 12:00 60 Intake and Output 01/30/17 01/31/17 19:00 07:00 Intake Total 20 ml Output Total 3010 ml Balance -2990 ml Tube Feeding 0 ml Other 20 ml Output Urine Total 10 ml Hemodialysis UF 3000 ml Laboratory Tests Test 01/30/17 04:20 01/30/17 10:10 White Blood Count 13.7 K/UL (4.8-10.8) H Red Blood Count 3.17 M/UL (4.20-5.40) L Hemoglobin 9.9 G/DL (12.0-16.0) L Hematocrit 30.4 % (37.0-47.0) L Mean Corpuscular Volume 96 FL (80-99) Mean Corpuscular Hemoglobin 31.3 PG (27.0-31.0) H Mean Corpuscular Hemoglobin Concent 32.6 G/DL (32.0-36.0) Red Cell Distribution Width 16.9 % (11.6-14.8) H Platelet Count 22 K/UL (150-450) L Mean Platelet Volume 15.9 FL (6.5-10.1) H Neutrophils (%) (Auto) % (45.0-75.0) Lymphocytes (%) (Auto) % (20.0-45.0) Monocytes (%) (Auto) % (1.0-10.0) Eosinophils (%) (Auto) % (0.0-3.0) Basophils (%) (Auto) % (0.0-2.0) Differential Total Cells Counted 100 Neutrophils % (Manual) 96 % (45-75) H Lymphocytes % (Manual) 3 % (20-45) L Monocytes % (Manual) 1 % (1-10) Eosinophils % (Manual) 0 % (0-3) Basophils % (Manual) 0 % (0-2) Band Neutrophils 0 % (0-8) Platelet Estimate Decreased L Platelet Morphology Normal Erich Cells 1+ Schistocytes 1+ Sodium Level 141 MMOL/L (136-145) Potassium Level 3.3 MMOL/L (3.5-5.1) L Chloride Level 109 MMOL/L (98-107) H Carbon Dioxide Level 23 MMOL/L (21-32) Anion Gap 9 (5-15) Blood Urea Nitrogen 50 mg/dL (7-18) H Creatinine 4.2 MG/DL (0.55-1.30) H Estimat Glomerular Filtration Rate mL/min (>60) Glucose Level 198 MG/DL (74-106) H Uric Acid 6.3 MG/DL (2.6-7.2) Calcium Level 10.0 MG/DL (8.5-10.1) Phosphorus Level 3.4 MG/DL (2.5-4.9) Magnesium Level 2.0 MG/DL (1.8-2.4) Total Bilirubin 1.2 MG/DL (0.2-1.0) H Direct Bilirubin 0.7 MG/DL (0.0-0.3) H Gamma Glutamyl Transpeptidase 62 U/L (5-85) Aspartate Amino Transf (AST/SGOT) 50 U/L (15-37) H Alanine Aminotransferase (ALT/SGPT) 11 U/L (12-78) L Alkaline Phosphatase 205 U/L (46-116) H C-Reactive Protein, Quantitative 14.1 mg/dL (0.00-0.90) H Pro-B-Type Natriuretic Peptide 46502 (0-125) H Total Protein 6.0 G/DL (6.4-8.2) L Albumin 2.0 G/DL (3.4-5.0) L Globulin 4.0 g/dL Albumin/Globulin Ratio 0.5 (1.0-2.7) L Arterial Blood pH 7.470 (7.350-7.450) Arterial Blood Partial Pressure CO2 31.6 mmHg (35.0-45.0) L Arterial Blood Partial Pressure O2 53.0 mmHg (75.0-100.0) L Arterial Blood HCO3 22.7 mmol/L (22.0-26.0) Arterial Blood Oxygen Saturation 88.3 % (92.0-98.0) L Arterial Blood Base Excess -0.3 Bon Test Positive Current Medications Medications (Trade) Dose Ordered Sig/Pavel Route PRN Reason Start Time Stop Time Status Last Admin Dose Admin Acetaminophen (Tylenol) 650 mg Q4H PRN ORAL T>100.5 01/21/17 14:30 02/15/17 14:29 Chlorhexidine Gluconate (Dianne-Hex 2%) 1 applic DAILY@2000 TOPIC 01/25/17 20:00 02/24/17 19:59 01/29/17 20:21 Clotrimazole (Lotrimin) 1 applic EVERY 12 HOURS TOPIC 01/21/17 21:00 02/18/17 13:59 01/30/17 10:31 Colistimethate Sodium (Colistin *inhalation use only*) 75 mg Q12HRT INH 01/29/17 22:00 02/05/17 21:59 01/30/17 10:26 Dextrose (Dextrose 50%) STAT PRN IV Hypoglycemia 01/27/17 07:45 02/26/17 07:44 Dopamine HCl/ Dextrose 250 ml @ 0 mls/hr Q24H IV 01/25/17 11:15 02/24/17 11:14 01/30/17 10:30 Ertapenem 0.5 gm/ Sodium Chloride 55 ml @ 110 mls/hr Q24H IVPB 01/28/17 09:00 02/02/17 08:59 01/30/17 10:30 Hydrocortisone (Solu-CORTEF) 100 mg EVERY 8 HOURS IV 01/29/17 14:00 01/31/17 06:01 01/30/17 05:31 Insulin Aspart (NovoLOG) EVERY 6 HOURS SUBQ 01/27/17 18:00 02/26/17 11:29 01/30/17 05:33 Lactulose (Cephulac) 10 gm BID ORAL 01/23/17 09:00 02/18/17 12:59 01/30/17 10:31 Metoclopramide HCl (Reglan) 5 mg Q8H PRN IVP Nausea & Vomiting 01/29/17 11:30 02/28/17 11:29 01/30/17 10:31 Midodrine (Pro-Amatine) 10 mg THREE TIMES A DAY NG 01/30/17 11:00 03/01/17 10:59 Nitroglycerin (Ntg) 0.4 mg Q5MIN X 3 DOSES PRN SL Prn Chest Pain 01/21/17 14:30 02/15/17 14:29 Nystatin (Nystop Powder) 1 applic THREE TIMES A DAY TOPIC 01/22/17 13:00 02/21/17 12:59 01/30/17 10:32 Pantoprazole (Protonix) 40 mg EVERY 12 HOURS IVP 01/21/17 21:00 02/20/17 20:59 01/30/17 10:31 Polyethylene Glycol (Miralax) 17 gm DAILYPRN PRN ORAL Constipation 01/21/17 14:00 02/17/17 13:59 Rifaximin (Xifaxan) 550 mg EVERY 12 HOURS ORAL 01/29/17 12:00 02/05/17 11:59 01/30/17 10:30 Vancomycin HCl (Vanco rx to dose) 1 ea DAILY PRN MISC Per rx protocol 01/22/17 09:00 02/18/17 11:44 Vancomycin HCl (Vancomycin) 125 mg BID ORAL 01/23/17 19:30 01/30/17 19:29 01/30/17 10:31 Height (Feet): 5 Height (Inches): 6.00 Weight (Pounds): 284 General Appearance: lethargic, obese Psychiatric Orientation: disoriented Insight: Oj De Jesus M.D. Jan 30, 2017 11:37
--- NOTE | 2017-01-30 12:51 | Diagnostic Imaging Report ---
Indication: Dyspnea Comparison: 07:20 A single view chest radiograph was obtained. Findings: There is diffuse airspace and interstitial disease fairly extensive in degree demonstrated. Considerable differences in technique compared to the earlier film. Tubes and lines are stable. Impression: No significant change. Extensive lung disease as described above
--- NOTE | 2017-01-30 15:21 | Infectious Diseases Prog Note ---
Assessment/Plan Assessment/Plan Assesment: Encephalopathy- possibly multifactorial- hepatic encephalopathy, infection- worsening now due to hypercapnea (transferred to ICU 01/21), on bipap> intubated Acute respiratory failure s/p intubation - 2ry to hypercapnea, PNA; now ARDS -CXR 01/29: Pulmonary parenchymal disease, likely ARDS, overall stable or may be slightly increased in the right lung apex over 2 days Sepsis 2ry to PNA and Bacteremia HCAP 2ry to ESBL. E.coli -CXR 01/25: Extensive bilateral interstitial and airspace edema/infiltrates slightly increased in the right lung. Stable support lines and tubes. -CXR 01/23 : Interval worsening pulmonary edema. -repeat sp cx 01/26: +4 MDR A.baumani (I Ceftazidime, R to carbapenem and aminoglycosides; S to Colistin, Polymyxin B) suspect Colonizer (improving not on tx) -Sp cx 01/22: +2 ESBK E.coli, +2 C. albicans (colonizer) MRSA bacteremia- with repeat Bcx growing CoNS (?contaminant vs real) -01/16 04/23 BCx MRSA (S. Vanco JOSE A 1), repeat Bcx 01/19 Neg, 01/21 04/23 CoNS ( contaminant), 01/24 Bcx 04/23 CoNs, Bcx 01/26 NTD x2, 01/28 BCx NTD -TTE 01/19(limited study): No aortic regurgitation.Trace mitral regurgitation.Mitral diastolic velocities suggest reduced left ventricular relaxation c/w diastolic dysfunction grade 1.Moderate tricuspid regurgitation. Leukocytosis, previously worsened up to 24, now trending down -01/26. pyuria improving (WBC 10-15); ucx C. albicans (colonizer) -10/ u/a WBC 30-40, ucx yeast (colonizer) -Sp cx ESBL E.coli, diaz (colonizer) Elevated LFTs -[facility] hep panel neg Probable MDR UTI, pyuria, s/p Rx -u/a 01/16 WBC too many to count,nit neg ,leuk est +3; UCx x3 grew >100K MDR A.baumani complex (S. tigecycline/Minocycline, Polymixin B/Colistin), >100K PsA (S. Cefepime, Zosyn; R Cipro/Levo); a prior isolated on a ucx from the same day isolated MDR PsA (I. Cefepime, R ceftzadime, Meropenem; S. Tygecicine, amikacin) -renal u/s: Nondiagnostic exam Metabolic acidosis, 2ry to renal failure- now improved after initiation of HD 01/28 RAMYA on CKD, started on HD 01/28 Cirrhosis Anemia & thrombocytopenia DM type 2 Morbid obesity PLAN: -Continue Ertapenem for ESBL E. coli in sputum (abx d# 01/01) -s/p 1 dose Amikacin 01/28 -s/p 7d Cefepime 10/ -s/p 3d Amikacin 10/ -s/p 7d Minocycline 10/ -s/p 3d IV vanco 01/18 -Continue IV Vancomycin #04/02 For MRSA bacteremia (per pharmacy, renally dose) ; -f/u repeat Bcx 01/26, 01/28, so far NTD -f/u requested Dapto susceptibilities for MRSA in bcx (requested on 01/28) -continue prophylatic PO Vancomycin #8 -Continue Inhaled colistin 75mg bid #2/-10 for MDR ABC in sputum -monitor closely; if HD decompensation add IV Colistin -requested ceftazidime-avibactam, tigecycline and minocycline susceptibilities 01/29 -f/u Repeat echo -if persistent bacteremia and if consistent with goals of care will need NAM Discussed with RN. Poor px; critically ill Subjective Allergies: Coded Allergies: PENICILLINS (Unverified Allergy, Unknown, 03/22/15) Subjective afebrile leukocytosis improving Cdiff neg BCx NTD Objective Vital Signs Last 24 Hour Vital Signs Date Time Temp Pulse Resp B/P (MAP) Pulse Ox O2 Delivery O2 Flow Rate FiO2 01/30/17 13:33 73 20 60 01/30/17 13:00 74 20 144/60 98 Mechanical Ventilator 60 01/30/17 12:00 60 01/30/17 12:00 80 01/30/17 12:00 97.3 74 20 133/53 99 Mechanical Ventilator 60 01/30/17 11:00 74 20 90/41 98 Mechanical Ventilator 60 01/30/17 10:55 80 20 99 Mechanical Ventilator 60 01/30/17 10:46 90 20 60 01/30/17 10:41 50 01/30/17 10:40 78 20 96 Mechanical Ventilator 60 01/30/17 10:30 89/42 01/30/17 10:00 81 20 194/71 97 Mechanical Ventilator 50 01/30/17 09:12 Mechanical Ventilator 15.0 50 01/30/17 09:07 81 20 50 01/30/17 09:00 88 20 194/71 93 Mechanical Ventilator 50 01/30/17 08:00 97.3 84 20 142/48 94 Mechanical Ventilator 50 01/30/17 08:00 50 01/30/17 08:00 90 01/30/17 07:09 90 20 50 01/30/17 07:00 92 20 185/78 95 01/30/17 06:00 73 20 128/55 95 01/30/17 05:00 70 20 162/70 96 01/30/17 04:39 69 20 50 01/30/17 04:30 Mechanical Ventilator 01/30/17 04:00 69 01/30/17 04:00 97.3 69 20 150/64 96 01/30/17 04:00 60 01/30/17 03:02 68 20 50 01/30/17 03:00 70 20 165/63 95 01/30/17 02:00 69 20 137/59 94 01/30/17 01:00 71 20 157/50 97 01/30/17 00:41 66 20 50 01/30/17 00:00 68 01/30/17 00:00 97.1 70 20 160/60 95 01/29/17 23:09 68 20 50 01/29/17 23:00 69 20 161/64 96 01/29/17 22:00 70 20 160/59 96 01/29/17 21:56 72 20 98 Mechanical Ventilator 15.0 01/29/17 21:44 72 20 95 Mechanical Ventilator 15.0 50 01/29/17 21:44 50 01/29/17 21:00 69 20 157/57 97 01/29/17 20:42 71 20 50 01/29/17 20:00 67 01/29/17 20:00 60 01/29/17 20:00 97.3 69 20 137/52 97 01/29/17 19:00 20 164/61 95 01/29/17 18:33 67 20 50 01/29/17 18:00 20 148/58 95 01/29/17 17:35 70 20 50 01/29/17 17:00 97.1 20 162/61 95 01/29/17 16:09 71 20 50 01/29/17 16:00 20 158/59 95 01/29/17 16:00 71 01/29/17 16:00 60 Height (Feet): 5 Height (Inches): 6.00 Weight (Pounds): 284 Objective HEENT: No pale conjunctivae. No icterus.ETT in place NECK: No lymphadenopathy. CHEST: coarse breath sounds HEART: S1 and S2. ABDOMEN: Soft and obese. EXTREMITIES: No cyanosis. NEUROLOGIC: lethargic. Skin: no rashes Microbiology Date/Time Source Procedure Growth Status 01/28/17 23:15 Blood Blood Culture - Preliminary NO GROWTH AFTER 24 HOURS Resulted 01/28/17 18:00 Blood Blood Culture - Preliminary NO GROWTH AFTER 24 HOURS Resulted 01/29/17 17:30 Stool Clostridium difficile Toxin Assay - Final Complete Laboratory Tests Test 01/30/17 04:20 01/30/17 10:10 White Blood Count 13.7 K/UL (4.8-10.8) H Red Blood Count 3.17 M/UL (4.20-5.40) L Hemoglobin 9.9 G/DL (12.0-16.0) L Hematocrit 30.4 % (37.0-47.0) L Mean Corpuscular Volume 96 FL (80-99) Mean Corpuscular Hemoglobin 31.3 PG (27.0-31.0) H Mean Corpuscular Hemoglobin Concent 32.6 G/DL (32.0-36.0) Red Cell Distribution Width 16.9 % (11.6-14.8) H Platelet Count 22 K/UL (150-450) L Mean Platelet Volume 15.9 FL (6.5-10.1) H Neutrophils (%) (Auto) % (45.0-75.0) Lymphocytes (%) (Auto) % (20.0-45.0) Monocytes (%) (Auto) % (1.0-10.0) Eosinophils (%) (Auto) % (0.0-3.0) Basophils (%) (Auto) % (0.0-2.0) Differential Total Cells Counted 100 Neutrophils % (Manual) 96 % (45-75) H Lymphocytes % (Manual) 3 % (20-45) L Monocytes % (Manual) 1 % (1-10) Eosinophils % (Manual) 0 % (0-3) Basophils % (Manual) 0 % (0-2) Band Neutrophils 0 % (0-8) Platelet Estimate Decreased L Platelet Morphology Normal Erich Cells 1+ Schistocytes 1+ Sodium Level 141 MMOL/L (136-145) Potassium Level 3.3 MMOL/L (3.5-5.1) L Chloride Level 109 MMOL/L (98-107) H Carbon Dioxide Level 23 MMOL/L (21-32) Anion Gap 9 (5-15) Blood Urea Nitrogen 50 mg/dL (7-18) H Creatinine 4.2 MG/DL (0.55-1.30) H Estimat Glomerular Filtration Rate mL/min (>60) Glucose Level 198 MG/DL (74-106) H Uric Acid 6.3 MG/DL (2.6-7.2) Calcium Level 10.0 MG/DL (8.5-10.1) Phosphorus Level 3.4 MG/DL (2.5-4.9) Magnesium Level 2.0 MG/DL (1.8-2.4) Total Bilirubin 1.2 MG/DL (0.2-1.0) H Direct Bilirubin 0.7 MG/DL (0.0-0.3) H Gamma Glutamyl Transpeptidase 62 U/L (5-85) Aspartate Amino Transf (AST/SGOT) 50 U/L (15-37) H Alanine Aminotransferase (ALT/SGPT) 11 U/L (12-78) L Alkaline Phosphatase 205 U/L (46-116) H C-Reactive Protein, Quantitative 14.1 mg/dL (0.00-0.90) H Pro-B-Type Natriuretic Peptide 25984 (0-125) H Total Protein 6.0 G/DL (6.4-8.2) L Albumin 2.0 G/DL (3.4-5.0) L Globulin 4.0 g/dL Albumin/Globulin Ratio 0.5 (1.0-2.7) L Arterial Blood pH 7.470 (7.350-7.450) Arterial Blood Partial Pressure CO2 31.6 mmHg (35.0-45.0) L Arterial Blood Partial Pressure O2 53.0 mmHg (75.0-100.0) L Arterial Blood HCO3 22.7 mmol/L (22.0-26.0) Arterial Blood Oxygen Saturation 88.3 % (92.0-98.0) L Arterial Blood Base Excess -0.3 Bon Test Positive Current Medications Medications (Trade) Dose Ordered Sig/Pavel Route PRN Reason Start Time Stop Time Status Last Admin Dose Admin Acetaminophen (Tylenol) 650 mg Q4H PRN ORAL T>100.5 01/21/17 14:30 02/15/17 14:29 Chlorhexidine Gluconate (Dianne-Hex 2%) 1 applic DAILY@2000 TOPIC 01/25/17 20:00 02/24/17 19:59 01/29/17 20:21 Clotrimazole (Lotrimin) 1 applic EVERY 12 HOURS TOPIC 01/21/17 21:00 02/18/17 13:59 01/30/17 10:31 Colistimethate Sodium (Colistin *inhalation use only*) 75 mg Q12HRT INH 01/29/17 22:00 02/05/17 21:59 01/30/17 10:26 Dextrose (Dextrose 50%) STAT PRN IV Hypoglycemia 01/27/17 07:45 02/26/17 07:44 Dopamine HCl/ Dextrose 250 ml @ 0 mls/hr Q24H IV 01/25/17 11:15 02/24/17 11:14 01/30/17 10:30 Ertapenem 0.5 gm/ Sodium Chloride 55 ml @ 110 mls/hr Q24H IVPB 01/28/17 09:00 02/02/17 08:59 01/30/17 10:30 Hydrocortisone (Solu-CORTEF) 100 mg EVERY 8 HOURS IV 01/29/17 14:00 01/31/17 06:01 01/30/17 14:22 Insulin Aspart (NovoLOG) EVERY 6 HOURS SUBQ 01/27/17 18:00 02/26/17 11:29 01/30/17 11:40 Lactulose (Cephulac) 10 gm BID ORAL 01/23/17 09:00 02/18/17 12:59 01/30/17 10:31 Metoclopramide HCl (Reglan) 5 mg Q8H PRN IVP Nausea & Vomiting 01/29/17 11:30 02/28/17 11:29 01/30/17 10:31 Midodrine (Pro-Amatine) 10 mg THREE TIMES A DAY NG 01/30/17 11:00 03/01/17 10:59 01/30/17 14:22 Nitroglycerin (Ntg) 0.4 mg Q5MIN X 3 DOSES PRN SL Prn Chest Pain 01/21/17 14:30 02/15/17 14:29 Nystatin (Nystop Powder) 1 applic THREE TIMES A DAY TOPIC 01/22/17 13:00 02/21/17 12:59 01/30/17 14:22 Pantoprazole (Protonix) 40 mg EVERY 12 HOURS IVP 01/21/17 21:00 02/20/17 20:59 01/30/17 10:31 Polyethylene Glycol (Miralax) 17 gm DAILYPRN PRN ORAL Constipation 01/21/17 14:00 02/17/17 13:59 Rifaximin (Xifaxan) 550 mg EVERY 12 HOURS ORAL 01/29/17 12:00 02/05/17 11:59 01/30/17 10:30 Vancomycin HCl (Vanco rx to dose) 1 ea DAILY PRN MISC Per rx protocol 01/22/17 09:00 02/18/17 11:44 Vancomycin HCl (Vancomycin) 125 mg BID ORAL 01/23/17 19:30 01/30/17 19:29 01/30/17 10:31 Nereyda Monroe M.D. Jan 30, 2017 15:21
--- NOTE | 2017-01-30 15:36 | General Progress Note ---
Assessment/Plan Assessment/Plan ASSESSMENT AND RECOMMENDATIONS 1.Thrombocytopenia 2/2 sepsis --> currently stable without improvement --> give plts if below 10k or if below 20k and febrile --> ID following 2. Coagulopathy secondary to underlying liver disease. 3. Thrombocytopenia secondary to underlying splenomegaly. 4. Anemia 2/2 chronic disease --> s/p transfusion --> Watch HH, transfuse if below 8 5. Leukocytosis secondary to underlying infection. white count increasing 6. Diabetes mellitus. Continue to closely monitor. 7. Altered mental status 8. RAMYA on CKD, is to receive hemodialysis Subjective Constitutional: Reports: no symptoms HEENT: Reports: no symptoms Cardiovascular: Reports: no symptoms Respiratory: Reports: no symptoms Gastrointestinal/Abdominal: Reports: no symptoms Genitourinary: Reports: no symptoms Neurologic/Psychiatric: Reports: no symptoms Endocrine: Reports: no symptoms Hematologic/Lymphatic: Reports: no symptoms Allergies: Coded Allergies: PENICILLINS (Unverified Allergy, Unknown, 03/22/15) Subjective afebrile, unresponsive Objective Last 24 Hour Vital Signs Date Time Temp Pulse Resp B/P (MAP) Pulse Ox O2 Delivery O2 Flow Rate FiO2 01/30/17 15:19 68 20 60 01/30/17 13:33 73 20 60 01/30/17 13:00 74 20 144/60 98 Mechanical Ventilator 60 01/30/17 12:00 60 01/30/17 12:00 80 01/30/17 12:00 97.3 74 20 133/53 99 Mechanical Ventilator 60 01/30/17 11:00 74 20 90/41 98 Mechanical Ventilator 60 01/30/17 10:55 80 20 99 Mechanical Ventilator 60 01/30/17 10:46 90 20 60 01/30/17 10:41 50 01/30/17 10:40 78 20 96 Mechanical Ventilator 60 01/30/17 10:30 89/42 01/30/17 10:00 81 20 194/71 97 Mechanical Ventilator 50 01/30/17 09:12 Mechanical Ventilator 15.0 50 01/30/17 09:07 81 20 50 01/30/17 09:00 88 20 194/71 93 Mechanical Ventilator 50 01/30/17 08:00 97.3 84 20 142/48 94 Mechanical Ventilator 50 01/30/17 08:00 50 01/30/17 08:00 90 01/30/17 07:09 90 20 50 01/30/17 07:00 92 20 185/78 95 01/30/17 06:00 73 20 128/55 95 01/30/17 05:00 70 20 162/70 96 01/30/17 04:39 69 20 50 01/30/17 04:30 Mechanical Ventilator 01/30/17 04:00 69 01/30/17 04:00 97.3 69 20 150/64 96 01/30/17 04:00 60 01/30/17 03:02 68 20 50 01/30/17 03:00 70 20 165/63 95 01/30/17 02:00 69 20 137/59 94 01/30/17 01:00 71 20 157/50 97 01/30/17 00:41 66 20 50 01/30/17 00:00 68 01/30/17 00:00 97.1 70 20 160/60 95 01/29/17 23:09 68 20 50 01/29/17 23:00 69 20 161/64 96 01/29/17 22:00 70 20 160/59 96 01/29/17 21:56 72 20 98 Mechanical Ventilator 15.0 01/29/17 21:44 72 20 95 Mechanical Ventilator 15.0 50 01/29/17 21:44 50 01/29/17 21:00 69 20 157/57 97 01/29/17 20:42 71 20 50 01/29/17 20:00 67 01/29/17 20:00 60 01/29/17 20:00 97.3 69 20 137/52 97 01/29/17 19:00 20 164/61 95 01/29/17 18:33 67 20 50 01/29/17 18:00 20 148/58 95 01/29/17 17:35 70 20 50 01/29/17 17:00 97.1 20 162/61 95 01/29/17 16:09 71 20 50 01/29/17 16:00 20 158/59 95 01/29/17 16:00 71 01/29/17 16:00 60 Intake and Output 01/30/17 01/31/17 19:00 07:00 Intake Total 20 ml Output Total 3010 ml Balance -2990 ml Tube Feeding 0 ml Other 20 ml Output Urine Total 10 ml Hemodialysis UF 3000 ml Laboratory Tests 01/30/17 04:20: White Blood Count 13.7H, Red Blood Count 3.17L, Hemoglobin 9.9L, Hematocrit 30.4L, Mean Corpuscular Volume 96, Mean Corpuscular Hemoglobin 31.3H, Mean Corpuscular Hemoglobin Concent 32.6, Red Cell Distribution Width 16.9H, Platelet Count 22L, Mean Platelet Volume 15.9H, Neutrophils (%) (Auto) , Lymphocytes (%) (Auto) , Monocytes (%) (Auto) , Eosinophils (%) (Auto) , Basophils (%) (Auto) , Differential Total Cells Counted 100, Neutrophils % ( Manual) 96H, Lymphocytes % (Manual) 3L, Monocytes % (Manual) 1, Eosinophils % ( Manual) 0, Basophils % (Manual) 0, Band Neutrophils 0, Platelet Estimate DecreasedL, Platelet Morphology Normal, [place] Cells 1+, Schistocytes 1+, Sodium Level 141, Potassium Level 3.3L, Chloride Level 109H, Carbon Dioxide Level 23, Anion Gap 9, Blood Urea Nitrogen 50H, Creatinine 4.2H, Estimat Glomerular Filtration Rate , Glucose Level 198H, Uric Acid 6.3, Calcium Level 10.0, Phosphorus Level 3.4, Magnesium Level 2.0, Total Bilirubin 1.2H, Direct Bilirubin 0.7H, Gamma Glutamyl Transpeptidase 62, Aspartate Amino Transf (AST/ SGOT) 50H, Alanine Aminotransferase (ALT/SGPT) 11L, Alkaline Phosphatase 205H, C -Reactive Protein, Quantitative 14.1H, Pro-B-Type Natriuretic Peptide 27030K, Total Protein 6.0L, Albumin 2.0L, Globulin 4.0, Albumin/Globulin Ratio 0.5L 01/30/17 10:10: Arterial Blood pH 7.470H, Arterial Blood Partial Pressure CO2 31.6L, Arterial Blood Partial Pressure O2 53.0L, Arterial Blood HCO3 22.7, Arterial Blood Oxygen Saturation 88.3L, Arterial Blood Base Excess -0.3, Bon Test Positive Height (Feet): 5 Height (Inches): 6.00 Weight (Pounds): 284 General Appearance: no apparent distress EENT: normal ENT inspection Neck: normal inspection Cardiovascular: no gallop/murmur Abdomen: no organomegaly Skin: warm/dry Chriss Pat Jan 30, 2017 15:36
--- NOTE | 2017-01-30 17:29 | Internal Med Progress Note ---
Subjective Physician Name Rl Tee Attending Physician Rl Tee MD Current Medications Medications (Trade) Dose Ordered Sig/Pavel Route PRN Reason Start Time Stop Time Status Last Admin Dose Admin Acetaminophen (Tylenol) 650 mg Q4H PRN ORAL T>100.5 01/21/17 14:30 02/15/17 14:29 Chlorhexidine Gluconate (Dianne-Hex 2%) 1 applic DAILY@2000 TOPIC 01/25/17 20:00 02/24/17 19:59 01/29/17 20:21 Clotrimazole (Lotrimin) 1 applic EVERY 12 HOURS TOPIC 01/21/17 21:00 02/18/17 13:59 01/30/17 10:31 Colistimethate Sodium (Colistin *inhalation use only*) 75 mg Q12HRT INH 01/29/17 22:00 02/05/17 21:59 01/30/17 10:26 Dextrose (Dextrose 50%) STAT PRN IV Hypoglycemia 01/27/17 07:45 02/26/17 07:44 Dopamine HCl/ Dextrose 250 ml @ 0 mls/hr Q24H IV 01/25/17 11:15 02/24/17 11:14 01/30/17 10:30 Ertapenem 0.5 gm/ Sodium Chloride 55 ml @ 110 mls/hr Q24H IVPB 01/28/17 09:00 02/02/17 08:59 01/30/17 10:30 Hydrocortisone (Solu-CORTEF) 100 mg EVERY 8 HOURS IV 01/29/17 14:00 01/31/17 06:01 01/30/17 14:22 Insulin Aspart (NovoLOG) EVERY 6 HOURS SUBQ 01/27/17 18:00 02/26/17 11:29 01/30/17 11:40 Lactulose (Cephulac) 10 gm BID ORAL 01/23/17 09:00 02/18/17 12:59 01/30/17 10:31 Metoclopramide HCl (Reglan) 5 mg Q8H PRN IVP Nausea & Vomiting 01/29/17 11:30 02/28/17 11:29 01/30/17 10:31 Midodrine (Pro-Amatine) 10 mg THREE TIMES A DAY NG 01/30/17 11:00 03/01/17 10:59 01/30/17 14:22 Nitroglycerin (Ntg) 0.4 mg Q5MIN X 3 DOSES PRN SL Prn Chest Pain 01/21/17 14:30 02/15/17 14:29 Nystatin (Nystop Powder) 1 applic THREE TIMES A DAY TOPIC 01/22/17 13:00 02/21/17 12:59 01/30/17 14:22 Pantoprazole (Protonix) 40 mg EVERY 12 HOURS IVP 01/21/17 21:00 02/20/17 20:59 01/30/17 10:31 Polyethylene Glycol (Miralax) 17 gm DAILYPRN PRN ORAL Constipation 01/21/17 14:00 02/17/17 13:59 Rifaximin (Xifaxan) 550 mg EVERY 12 HOURS ORAL 01/29/17 12:00 02/05/17 11:59 01/30/17 10:30 Vancomycin HCl (Vanco rx to dose) 1 ea DAILY PRN MISC Per rx protocol 01/22/17 09:00 02/18/17 11:44 Vancomycin HCl (Vancomycin) 125 mg BID ORAL 01/23/17 19:30 01/30/17 19:29 01/30/17 10:31 Allergies: Coded Allergies: PENICILLINS (Unverified Allergy, Unknown, 03/22/15) Subjective in ICU , Intubated , less responsive, open eye with deep stimuli Objective Last Vital Signs Date Time Temp Pulse Resp B/P (MAP) Pulse Ox O2 Delivery O2 Flow Rate FiO2 01/30/17 17:00 63 20 92/36 98 Mechanical Ventilator 60 01/30/17 16:00 97.4 01/30/17 09:12 15.0 Laboratory Tests Test 01/30/17 04:20 01/30/17 10:10 White Blood Count 13.7 K/UL (4.8-10.8) H Red Blood Count 3.17 M/UL (4.20-5.40) L Hemoglobin 9.9 G/DL (12.0-16.0) L Hematocrit 30.4 % (37.0-47.0) L Mean Corpuscular Volume 96 FL (80-99) Mean Corpuscular Hemoglobin 31.3 PG (27.0-31.0) H Mean Corpuscular Hemoglobin Concent 32.6 G/DL (32.0-36.0) Red Cell Distribution Width 16.9 % (11.6-14.8) H Platelet Count 22 K/UL (150-450) L Mean Platelet Volume 15.9 FL (6.5-10.1) H Neutrophils (%) (Auto) % (45.0-75.0) Lymphocytes (%) (Auto) % (20.0-45.0) Monocytes (%) (Auto) % (1.0-10.0) Eosinophils (%) (Auto) % (0.0-3.0) Basophils (%) (Auto) % (0.0-2.0) Differential Total Cells Counted 100 Neutrophils % (Manual) 96 % (45-75) H Lymphocytes % (Manual) 3 % (20-45) L Monocytes % (Manual) 1 % (1-10) Eosinophils % (Manual) 0 % (0-3) Basophils % (Manual) 0 % (0-2) Band Neutrophils 0 % (0-8) Platelet Estimate Decreased L Platelet Morphology Normal [place] Cells 1+ Schistocytes 1+ Sodium Level 141 MMOL/L (136-145) Potassium Level 3.3 MMOL/L (3.5-5.1) L Chloride Level 109 MMOL/L (98-107) H Carbon Dioxide Level 23 MMOL/L (21-32) Anion Gap 9 (5-15) Blood Urea Nitrogen 50 mg/dL (7-18) H Creatinine 4.2 MG/DL (0.55-1.30) H Estimat Glomerular Filtration Rate mL/min (>60) Glucose Level 198 MG/DL (74-106) H Uric Acid 6.3 MG/DL (2.6-7.2) Calcium Level 10.0 MG/DL (8.5-10.1) Phosphorus Level 3.4 MG/DL (2.5-4.9) Magnesium Level 2.0 MG/DL (1.8-2.4) Total Bilirubin 1.2 MG/DL (0.2-1.0) H Direct Bilirubin 0.7 MG/DL (0.0-0.3) H Gamma Glutamyl Transpeptidase 62 U/L (5-85) Aspartate Amino Transf (AST/SGOT) 50 U/L (15-37) H Alanine Aminotransferase (ALT/SGPT) 11 U/L (12-78) L Alkaline Phosphatase 205 U/L (46-116) H C-Reactive Protein, Quantitative 14.1 mg/dL (0.00-0.90) H Pro-B-Type Natriuretic Peptide 44051 (0-125) H Total Protein 6.0 G/DL (6.4-8.2) L Albumin 2.0 G/DL (3.4-5.0) L Globulin 4.0 g/dL Albumin/Globulin Ratio 0.5 (1.0-2.7) L Arterial Blood pH 7.470 (7.350-7.450) Arterial Blood Partial Pressure CO2 31.6 mmHg (35.0-45.0) L Arterial Blood Partial Pressure O2 53.0 mmHg (75.0-100.0) L Arterial Blood HCO3 22.7 mmol/L (22.0-26.0) Arterial Blood Oxygen Saturation 88.3 % (92.0-98.0) L Arterial Blood Base Excess -0.3 Bon Test Positive Microbiology Date/Time Source Procedure Growth Status 01/28/17 23:15 Blood Blood Culture - Preliminary NO GROWTH AFTER 24 HOURS Resulted 01/28/17 18:00 Blood Blood Culture - Preliminary NO GROWTH AFTER 24 HOURS Resulted 01/29/17 17:30 Stool Clostridium difficile Toxin Assay - Final Complete Intake and Output 01/30/17 01/31/17 19:00 07:00 Intake Total 537.986 ml Output Total 3010 ml Balance -2472.014 ml IV Total 257.986 ml Tube Feeding 250 ml Other 30 ml Output Urine Total 10 ml Hemodialysis UF 3000 ml Objective General: intubated, not responsive. HEENT: NCAT, sclera anicteric, PERRL, ET Tube, NG tube. Neck: Supple, Right dialysis cath. Lungs: mechanical breath sound,No Rales, no Wheeze. Heart: Regular rate and rhythm, normal S1/S2, no murmurs Abdomen: soft, nontender, nondistended. morbid obesity. : Nunez Cath Extremities: No Cyanosis , clubbing +trace ankle edema. Neuro: less responsive, confused, moving all extremities. Assessment/Plan Assessment/Plan 1. Altered mental status most likely due to hepatic encephalopathy and sepsis 2. Encephalopathy due to infection / Urinary tract infection. 3. Thrombocytopenia. 4. Anemia. 5. Diabetes type 2. 6. Hypertension. 7. Obstructive sleep apnea. 8. Gastroesophageal reflux disease. 9. Hypercholesterolemia. 10. Cardiomyopathy. 11. Liver cirrhosis. 12. Fatty liver. 13. Hypernatremia. 14. RAMYA on CKD on HD 15. Acute Hypoxemic and hypercapnia respiratory failure. 16. MRSA bacteremia- r/o endocarditis PLAN: IVF bolus Abx:Ertapenem, IV Vancomycin, PO Vancomycin, Inhaled colistin. Monitor labs and cultures F/U Dr. Melendez recommendations Code status: DNR SCD Rl Tee MD Jan 30, 2017 17:29
--- NOTE | 2017-01-30 19:02 | Cardiac Electrophysiology PN ---
Assessment/Plan Assessment/Plan 1. Congestive heart failure and very high BNP due to diastolic dysfunction. Ejection fraction 60% to 65%. EKG showed normal sinus rhythm with low voltage QRS. Had dialysis today again 2. Shock, resolved.Off Dopamine and on Abx 3. Bradycardia resolved, off dopamine or midodrine 4. Diabetes. 5. Hyperlipidemia. 6. Cirrhosis 7. Anemia with hemoglobin of 8. 8. Hypernatremia resolved 9. DNR and DNI 10. ESRD on HD DW RN Subjective Subjective In ICU unresponsive on Vent. Had Dialysis today, off Dopamine. DNR and DNI Objective Last 24 Hour Vital Signs Date Time Temp Pulse Resp B/P (MAP) Pulse Ox O2 Delivery O2 Flow Rate FiO2 01/30/17 17:00 63 20 92/36 98 Mechanical Ventilator 60 01/30/17 16:52 63 20 60 01/30/17 16:30 69 20 94/37 98 Mechanical Ventilator 60 01/30/17 16:00 97.4 72 20 143/52 98 Mechanical Ventilator 60 01/30/17 16:00 66 01/30/17 16:00 60 01/30/17 15:30 67 20 112/40 99 Mechanical Ventilator 60 01/30/17 15:19 68 20 60 01/30/17 15:00 66 20 94/44 98 Mechanical Ventilator 60 01/30/17 14:30 82 20 85/38 98 Mechanical Ventilator 60 01/30/17 14:00 72 20 143/53 98 Mechanical Ventilator 60 01/30/17 13:33 73 20 60 01/30/17 13:30 73 20 144/60 98 Mechanical Ventilator 60 01/30/17 13:00 74 20 144/60 98 Mechanical Ventilator 60 01/30/17 12:30 73 20 149/55 99 Mechanical Ventilator 60 01/30/17 12:00 60 01/30/17 12:00 80 01/30/17 12:00 97.3 74 20 133/53 99 Mechanical Ventilator 60 01/30/17 11:30 73 20 130/51 98 Mechanical Ventilator 60 01/30/17 11:00 74 20 90/41 98 Mechanical Ventilator 60 01/30/17 10:55 80 20 99 Mechanical Ventilator 60 01/30/17 10:46 90 20 60 01/30/17 10:41 50 01/30/17 10:40 78 20 96 Mechanical Ventilator 60 10/13/17 10:30 89/42 01/30/17 10:30 86 20 167/64 100 Mechanical Ventilator 50 01/30/17 10:00 81 20 194/71 97 Mechanical Ventilator 50 01/30/17 09:30 85 20 194/71 92 Mechanical Ventilator 50 01/30/17 09:12 Mechanical Ventilator 15.0 50 01/30/17 09:07 81 20 50 01/30/17 09:00 88 20 194/71 93 Mechanical Ventilator 50 01/30/17 08:30 86 20 179/79 95 Mechanical Ventilator 50 01/30/17 08:00 97.3 84 20 142/48 94 Mechanical Ventilator 50 01/30/17 08:00 50 01/30/17 08:00 90 01/30/17 07:30 92 22 109/56 89 Mechanical Ventilator 50 01/30/17 07:09 90 20 50 01/30/17 07:00 92 20 185/78 95 01/30/17 06:00 73 20 128/55 95 01/30/17 05:00 70 20 162/70 96 01/30/17 04:39 69 20 50 01/30/17 04:30 Mechanical Ventilator 01/30/17 04:00 69 01/30/17 04:00 97.3 69 20 150/64 96 01/30/17 04:00 60 01/30/17 03:02 68 20 50 01/30/17 03:00 70 20 165/63 95 01/30/17 02:00 69 20 137/59 94 01/30/17 01:00 71 20 157/50 97 01/30/17 00:41 66 20 50 01/30/17 00:00 68 01/30/17 00:00 97.1 70 20 160/60 95 01/29/17 23:09 68 20 50 01/29/17 23:00 69 20 161/64 96 01/29/17 22:00 70 20 160/59 96 01/29/17 21:56 72 20 98 Mechanical Ventilator 15.0 01/29/17 21:44 72 20 95 Mechanical Ventilator 15.0 50 01/29/17 21:44 50 01/29/17 21:00 69 20 157/57 97 01/29/17 20:42 71 20 50 01/29/17 20:00 67 01/29/17 20:00 60 01/29/17 20:00 97.3 69 20 137/52 97 Intake and Output 01/30/17 01/31/17 19:00 07:00 Intake Total 537.986 ml Output Total 3010 ml Balance -2472.014 ml IV Total 257.986 ml Tube Feeding 250 ml Other 30 ml Output Urine Total 10 ml Hemodialysis UF 3000 ml Laboratory Tests Test 01/30/17 04:20 01/30/17 10:10 White Blood Count 13.7 K/UL (4.8-10.8) H Red Blood Count 3.17 M/UL (4.20-5.40) L Hemoglobin 9.9 G/DL (12.0-16.0) L Hematocrit 30.4 % (37.0-47.0) L Mean Corpuscular Volume 96 FL (80-99) Mean Corpuscular Hemoglobin 31.3 PG (27.0-31.0) H Mean Corpuscular Hemoglobin Concent 32.6 G/DL (32.0-36.0) Red Cell Distribution Width 16.9 % (11.6-14.8) H Platelet Count 22 K/UL (150-450) L Mean Platelet Volume 15.9 FL (6.5-10.1) H Neutrophils (%) (Auto) % (45.0-75.0) Lymphocytes (%) (Auto) % (20.0-45.0) Monocytes (%) (Auto) % (1.0-10.0) Eosinophils (%) (Auto) % (0.0-3.0) Basophils (%) (Auto) % (0.0-2.0) Differential Total Cells Counted 100 Neutrophils % (Manual) 96 % (45-75) H Lymphocytes % (Manual) 3 % (20-45) L Monocytes % (Manual) 1 % (1-10) Eosinophils % (Manual) 0 % (0-3) Basophils % (Manual) 0 % (0-2) Band Neutrophils 0 % (0-8) Platelet Estimate Decreased L Platelet Morphology Normal [place] Cells 1+ Schistocytes 1+ Sodium Level 141 MMOL/L (136-145) Potassium Level 3.3 MMOL/L (3.5-5.1) L Chloride Level 109 MMOL/L (98-107) H Carbon Dioxide Level 23 MMOL/L (21-32) Anion Gap 9 (5-15) Blood Urea Nitrogen 50 mg/dL (7-18) H Creatinine 4.2 MG/DL (0.55-1.30) H Estimat Glomerular Filtration Rate mL/min (>60) Glucose Level 198 MG/DL (74-106) H Uric Acid 6.3 MG/DL (2.6-7.2) Calcium Level 10.0 MG/DL (8.5-10.1) Phosphorus Level 3.4 MG/DL (2.5-4.9) Magnesium Level 2.0 MG/DL (1.8-2.4) Total Bilirubin 1.2 MG/DL (0.2-1.0) H Direct Bilirubin 0.7 MG/DL (0.0-0.3) H Gamma Glutamyl Transpeptidase 62 U/L (5-85) Aspartate Amino Transf (AST/SGOT) 50 U/L (15-37) H Alanine Aminotransferase (ALT/SGPT) 11 U/L (12-78) L Alkaline Phosphatase 205 U/L (46-116) H C-Reactive Protein, Quantitative 14.1 mg/dL (0.00-0.90) H Pro-B-Type Natriuretic Peptide 38253 (0-125) H Total Protein 6.0 G/DL (6.4-8.2) L Albumin 2.0 G/DL (3.4-5.0) L Globulin 4.0 g/dL Albumin/Globulin Ratio 0.5 (1.0-2.7) L Arterial Blood pH 7.470 (7.350-7.450) Arterial Blood Partial Pressure CO2 31.6 mmHg (35.0-45.0) L Arterial Blood Partial Pressure O2 53.0 mmHg (75.0-100.0) L Arterial Blood HCO3 22.7 mmol/L (22.0-26.0) Arterial Blood Oxygen Saturation 88.3 % (92.0-98.0) L Arterial Blood Base Excess -0.3 Bon Test Positive Microbiology Date/Time Source Procedure Growth Status 01/28/17 23:15 Blood Blood Culture - Preliminary NO GROWTH AFTER 24 HOURS Resulted 01/28/17 18:00 Blood Blood Culture - Preliminary NO GROWTH AFTER 24 HOURS Resulted 01/29/17 17:30 Stool Clostridium difficile Toxin Assay - Final Complete Objective HEAD AND NECK: No JVD.Orally intubated. Right IJ Maharkar Catheter in place LUNGS: Coarse rhonchi CARDIOVASCULAR: Regular S1 and S2 with no gallop or murmur. ABDOMEN: Soft and nontender and obese. EXTREMITIES: 2+ pitting edema. DEAN SHAW Jan 30, 2017 19:02
--- NOTE | 2017-01-30 20:47 | General Progress Note ---
Assessment/Plan Assessment/Plan Assessment - Respiratory failure - Renal failure - DURANT with cirrhosis - Hepatic encephalopathy - still with elevated NH3 but mental status improving - elevated CEA with negative recent EGD/Colon - Heme (+) - likely from portal HTN gastropathy - Leukocytosis on steroids Recommendations - continue Lactulose and Xifaxan - Trial of ATC IV reglan and retry TF-- bolus trial - follow labs - HD Subjective Allergies: Coded Allergies: PENICILLINS (Unverified Allergy, Unknown, 03/22/15) Subjective intubated seen in ICU Arousable difficulty tolerating TF Objective Last 24 Hour Vital Signs Date Time Temp Pulse Resp B/P (MAP) Pulse Ox O2 Delivery O2 Flow Rate FiO2 01/30/17 19:17 66 20 60 01/30/17 19:00 66 20 117/48 98 Mechanical Ventilator 60 01/30/17 18:00 63 20 98/40 99 Mechanical Ventilator 60 01/30/17 17:00 63 20 92/36 98 Mechanical Ventilator 60 01/30/17 16:52 63 20 60 01/30/17 16:30 69 20 94/37 98 Mechanical Ventilator 60 01/30/17 16:00 97.4 72 20 143/52 98 Mechanical Ventilator 60 01/30/17 16:00 66 01/30/17 16:00 60 01/30/17 15:30 67 20 112/40 99 Mechanical Ventilator 60 01/30/17 15:19 68 20 60 01/30/17 15:00 66 20 94/44 98 Mechanical Ventilator 60 01/30/17 14:30 82 20 85/38 98 Mechanical Ventilator 60 01/30/17 14:00 72 20 143/53 98 Mechanical Ventilator 60 01/30/17 13:33 73 20 60 01/30/17 13:30 73 20 144/60 98 Mechanical Ventilator 60 01/30/17 13:00 74 20 144/60 98 Mechanical Ventilator 60 01/30/17 12:30 73 20 149/55 99 Mechanical Ventilator 60 01/30/17 12:00 60 01/30/17 12:00 80 01/30/17 12:00 97.3 74 20 133/53 99 Mechanical Ventilator 60 01/30/17 11:30 73 20 130/51 98 Mechanical Ventilator 60 01/30/17 11:00 74 20 90/41 98 Mechanical Ventilator 60 01/30/17 10:55 80 20 99 Mechanical Ventilator 60 01/30/17 10:46 90 20 60 01/30/17 10:41 50 01/30/17 10:40 78 20 96 Mechanical Ventilator 60 01/30/17 10:30 89/42 01/30/17 10:30 86 20 167/64 100 Mechanical Ventilator 50 01/30/17 10:00 81 20 194/71 97 Mechanical Ventilator 50 01/30/17 09:30 85 20 194/71 92 Mechanical Ventilator 50 01/30/17 09:12 Mechanical Ventilator 15.0 50 01/30/17 09:07 81 20 50 01/30/17 09:00 88 20 194/71 93 Mechanical Ventilator 50 01/30/17 08:30 86 20 179/79 95 Mechanical Ventilator 50 01/30/17 08:00 97.3 84 20 142/48 94 Mechanical Ventilator 50 01/30/17 08:00 50 01/30/17 08:00 90 01/30/17 07:30 92 22 109/56 89 Mechanical Ventilator 50 01/30/17 07:09 90 20 50 01/30/17 07:00 92 20 185/78 95 01/30/17 06:00 73 20 128/55 95 01/30/17 05:00 70 20 162/70 96 01/30/17 04:39 69 20 50 01/30/17 04:30 Mechanical Ventilator 01/30/17 04:00 69 01/30/17 04:00 97.3 69 20 150/64 96 01/30/17 04:00 60 01/30/17 03:02 68 20 50 01/30/17 03:00 70 20 165/63 95 01/30/17 02:00 69 20 137/59 94 01/30/17 01:00 71 20 157/50 97 01/30/17 00:41 66 20 50 01/30/17 00:00 68 01/30/17 00:00 97.1 70 20 160/60 95 01/29/17 23:09 68 20 50 01/29/17 23:00 69 20 161/64 96 01/29/17 22:00 70 20 160/59 96 01/29/17 21:56 72 20 98 Mechanical Ventilator 15.0 01/29/17 21:44 72 20 95 Mechanical Ventilator 15.0 50 01/29/17 21:44 50 01/29/17 21:00 69 20 157/57 97 01/29/17 20:42 71 20 50 Intake and Output 01/30/17 01/31/17 19:00 07:00 Intake Total 537.986 ml Output Total 3020 ml Balance -2482.014 ml IV Total 257.986 ml Tube Feeding 250 ml Other 30 ml Output Urine Total 20 ml Hemodialysis UF 3000 ml Laboratory Tests 01/30/17 04:20: White Blood Count 13.7H, Red Blood Count 3.17L, Hemoglobin 9.9L, Hematocrit 30.4L, Mean Corpuscular Volume 96, Mean Corpuscular Hemoglobin 31.3H, Mean Corpuscular Hemoglobin Concent 32.6, Red Cell Distribution Width 16.9H, Platelet Count 22L, Mean Platelet Volume 15.9H, Neutrophils (%) (Auto) , Lymphocytes (%) (Auto) , Monocytes (%) (Auto) , Eosinophils (%) (Auto) , Basophils (%) (Auto) , Differential Total Cells Counted 100, Neutrophils % ( Manual) 96H, Lymphocytes % (Manual) 3L, Monocytes % (Manual) 1, Eosinophils % ( Manual) 0, Basophils % (Manual) 0, Band Neutrophils 0, Platelet Estimate DecreasedL, Platelet Morphology Normal, [place] Cells 1+, Schistocytes 1+, Sodium Level 141, Potassium Level 3.3L, Chloride Level 109H, Carbon Dioxide Level 23, Anion Gap 9, Blood Urea Nitrogen 50H, Creatinine 4.2H, Estimat Glomerular Filtration Rate , Glucose Level 198H, Uric Acid 6.3, Calcium Level 10.0, Phosphorus Level 3.4, Magnesium Level 2.0, Total Bilirubin 1.2H, Direct Bilirubin 0.7H, Gamma Glutamyl Transpeptidase 62, Aspartate Amino Transf (AST/ SGOT) 50H, Alanine Aminotransferase (ALT/SGPT) 11L, Alkaline Phosphatase 205H, C -Reactive Protein, Quantitative 14.1H, Pro-B-Type Natriuretic Peptide 80461Y, Total Protein 6.0L, Albumin 2.0L, Globulin 4.0, Albumin/Globulin Ratio 0.5L 01/30/17 10:10: Arterial Blood pH 7.470H, Arterial Blood Partial Pressure CO2 31.6L, Arterial Blood Partial Pressure O2 53.0L, Arterial Blood HCO3 22.7, Arterial Blood Oxygen Saturation 88.3L, Arterial Blood Base Excess -0.3, Bon Test Positive Height (Feet): 5 Height (Inches): 6.00 Weight (Pounds): 284 Objective Obese WW NCAT supple CTA RRR soft ND NT (+) edema arousable KIERSTEN DAVIES Jan 30, 2017 20:47
[2017-01-30] MEDS: Dyna-Hex 2% Top Sol 2oz TOPIC SCH (20:59)
[2017-01-31] VITALS (24 sets, daily range): BP systolic 118–145; BP diastolic 46–69
[2017-01-31] MEDS: NovoLOG Insulin Flexpen SUBQ SCH ×5 (00:02→23:47)
[2017-01-31] MEDS: Hydrocortisone 100mg Inj IV SCH (05:49)
[2017-01-31 06:34] LABS: HEMATOCRIT 27.4 % (37.0-47.0); HEMOGLOBIN 8.7 G/DL (12.0-16.0); MEAN CORPUSCULAR VOLUME 98 FL (80-99); PLATELET COUNT 25 K/UL (150-450); RED BLOOD COUNT 2.79 M/UL (4.20-5.40); RED CELL DISTRIBUTION WIDTH 17.5 % (11.6-14.8); WHITE BLOOD COUNT 10.2 K/UL (4.8-10.8)
[2017-01-31 07:14] LABS: ALANINE AMINOTRANSFERASE 11 U/L (12-78); ALBUMIN 1.6 G/DL (3.4-5.0); ALBUMIN/GLOBULIN RATIO 0.4 (1.0-2.7); ALKALINE PHOSPHATASE 209 U/L (46-116); ANION GAP 11 (5-15); ASPARTATE AMINO TRANSFERASE 46 U/L (15-37); BILIRUBIN,TOTAL 1.1 MG/DL (0.2-1.0); BLOOD UREA NITROGEN 42 mg/dL (7-18); CALCIUM 9.3 MG/DL (8.5-10.1); CARBON DIOXIDE 24 MMOL/L (21-32); CHLORIDE 106 MMOL/L (98-107); CREATININE 3.6 MG/DL (0.55-1.30); POTASSIUM 3.1 MMOL/L (3.5-5.1); SODIUM 141 MMOL/L (136-145)
[2017-01-31 08:05] LABS: BILIRUBIN,DIRECT 0.6 MG/DL (0.0-0.3)
[2017-01-31] MEDS: Pantoprazole Inj IVP SCH ×2 (08:48→20:33)
[2017-01-31] MEDS: Lactulose 10gm/15ml UDC ORAL SCH ×2 (08:49→17:43)
[2017-01-31] MEDS: Nystatin Powder 100,000 units/gm 15gm TOPIC SCH ×3 (08:49→17:52)
[2017-01-31] MEDS: Midodrine 10mg tab NG SCH ×3 (08:49→22:00)
[2017-01-31] MEDS: Ertapenem 0.5 GM in NS 55 ML IVPB SCH (09:31)
--- NOTE | 2017-01-31 09:48 | Infectious Diseases Prog Note ---
Assessment/Plan Assessment/Plan Assesment: Encephalopathy- possibly multifactorial- hepatic encephalopathy, infection- worsening now due to hypercapnea (transferred to ICU 01/21), on bipap> intubated Acute respiratory failure s/p intubation - 2ry to hypercapnea, PNA; now ARDS -CXR 01/29: Pulmonary parenchymal disease, likely ARDS, overall stable or may be slightly increased in the right lung apex over 2 days Sepsis 2ry to PNA and Bacteremia HCAP 2ry to ESBL. E.coli -CXR 01/25: Extensive bilateral interstitial and airspace edema/infiltrates slightly increased in the right lung. Stable support lines and tubes. -CXR 01/23 : Interval worsening pulmonary edema. -repeat sp cx 01/26: +4 MDR A.baumani (I Ceftazidime, R to carbapenem and aminoglycosides, Minocycline; S to Colistin, Polymyxin B) suspect Colonizer ( improving not on tx) -Sp cx 01/22: +2 ESBK E.coli, +2 C. albicans (colonizer) MRSA bacteremia- with repeat Bcx growing CoNS (?contaminant vs real) -01/16 04/23 BCx MRSA (S. Vanco JOSE A 1), repeat Bcx 01/19 Neg, 01/21 04/23 CoNS ( contaminant), 01/24 Bcx 04/23 CoNs, Bcx 01/26 NTD x2, 01/28 BCx NTD -TTE 01/19(limited study): No aortic regurgitation.Trace mitral regurgitation.Mitral diastolic velocities suggest reduced left ventricular relaxation c/w diastolic dysfunction grade 1.Moderate tricuspid regurgitation. Leukocytosis, previously worsened up to 24, now resolved -01/26. pyuria improving (WBC 10-15); ucx C. albicans (colonizer) -10/ u/a WBC 30-40, ucx yeast (colonizer) -Sp cx ESBL E.coli, diaz (colonizer) Elevated LFTs, improving -[facility] hep panel neg Probable MDR UTI, pyuria, s/p Rx -u/a 01/16 WBC too many to count,nit neg ,leuk est +3; UCx x3 grew >100K MDR A.baumani complex (S. tigecycline/Minocycline, Polymixin B/Colistin), >100K PsA (S. Cefepime, Zosyn; R Cipro/Levo); a prior isolated on a ucx from the same day isolated MDR PsA (I. Cefepime, R ceftzadime, Meropenem; S. Tygecicine, amikacin) -renal u/s: Nondiagnostic exam Metabolic acidosis, 2ry to renal failure- now improved after initiation of HD 01/28 RAMYA on CKD, started on HD 01/28 Cirrhosis Anemia & thrombocytopenia DM type 2 Morbid obesity PLAN: -Continue Ertapenem for ESBL E. coli in sputum (abx d# 01/31) -s/p 1 dose Amikacin 01/28 -s/p 7d Cefepime 10/ -s/p 3d Amikacin 10/ -s/p 7d Minocycline 10/ -s/p 3d IV vanco 01/18 -Continue IV Vancomycin #/ For MRSA bacteremia (per pharmacy, renally dose) ; -f/u repeat Bcx 01/26, 01/28, so far NTD -f/u requested Dapto susceptibilities for MRSA in bcx (requested on 01/28) -continue prophylatic PO Vancomycin #9 -Continue Inhaled colistin 75mg bid #/-10 for MDR ABC in sputum -monitor closely; if HD decompensation add IV Colistin -requested ceftazidime-avibactam, tigecycline and minocycline susceptibilities 01/29 -f/u Repeat echo -if persistent bacteremia and if consistent with goals of care will need NAM Discussed with RN. Poor px; critically ill Subjective Allergies: Coded Allergies: PENICILLINS (Unverified Allergy, Unknown, 03/22/15) Subjective afebrile leukocytosis resolved BCx NTD Objective Vital Signs Last 24 Hour Vital Signs Date Time Temp Pulse Resp B/P (MAP) Pulse Ox O2 Delivery O2 Flow Rate FiO2 01/31/17 09:00 78 20 129/57 96 Mechanical Ventilator 50 01/31/17 08:00 50 01/31/17 08:00 97.4 77 20 123/49 95 Mechanical Ventilator 50 01/31/17 08:00 83 01/31/17 07:00 79 20 133/52 95 Mechanical Ventilator 50 01/31/17 06:00 79 20 133/52 94 Mechanical Ventilator 50 01/31/17 05:19 81 20 50 01/31/17 05:00 75 20 128/50 99 Mechanical Ventilator 60 01/31/17 04:00 60 01/31/17 04:00 97.4 76 20 125/49 98 Mechanical Ventilator 60 01/31/17 03:26 75 20 60 01/31/17 03:14 74 01/31/17 03:00 87 20 128/50 98 Mechanical Ventilator 60 01/31/17 02:00 84 20 133/46 96 Mechanical Ventilator 60 01/31/17 01:16 87 20 60 01/31/17 01:00 82 20 131/47 96 Mechanical Ventilator 60 01/31/17 00:00 97.4 74 20 125/49 98 Mechanical Ventilator 60 01/31/17 00:00 60 01/30/17 23:24 75 20 60 01/30/17 23:05 71 01/30/17 23:00 72 20 125/48 97 Mechanical Ventilator 60 01/30/17 22:00 69 20 131/48 97 Mechanical Ventilator 60 01/30/17 21:30 68 20 99 Mechanical Ventilator 60 01/30/17 21:17 60 01/30/17 21:16 66 20 98 Mechanical Ventilator 60 01/30/17 21:13 72 20 60 01/30/17 21:00 71 20 121/47 97 Mechanical Ventilator 60 01/30/17 20:00 97.4 66 20 118/43 98 Mechanical Ventilator 60 01/30/17 20:00 60 01/30/17 19:38 67 01/30/17 19:17 66 20 60 01/30/17 19:00 66 20 117/48 98 Mechanical Ventilator 60 01/30/17 18:00 63 20 98/40 99 Mechanical Ventilator 60 01/30/17 17:00 63 20 92/36 98 Mechanical Ventilator 60 01/30/17 16:52 63 20 60 01/30/17 16:30 69 20 94/37 98 Mechanical Ventilator 60 01/30/17 16:00 97.4 72 20 143/52 98 Mechanical Ventilator 60 01/30/17 16:00 66 01/30/17 16:00 60 01/30/17 15:30 67 20 112/40 99 Mechanical Ventilator 60 01/30/17 15:19 68 20 60 01/30/17 15:00 66 20 94/44 98 Mechanical Ventilator 60 01/30/17 14:30 82 20 85/38 98 Mechanical Ventilator 60 01/30/17 14:00 72 20 143/53 98 Mechanical Ventilator 60 01/30/17 13:33 73 20 60 01/30/17 13:30 73 20 144/60 98 Mechanical Ventilator 60 01/30/17 13:00 74 20 144/60 98 Mechanical Ventilator 60 01/30/17 12:30 73 20 149/55 99 Mechanical Ventilator 60 01/30/17 12:00 60 01/30/17 12:00 80 01/30/17 12:00 97.3 74 20 133/53 99 Mechanical Ventilator 60 01/30/17 11:30 73 20 130/51 98 Mechanical Ventilator 60 01/30/17 11:00 74 20 90/41 98 Mechanical Ventilator 60 01/30/17 10:55 80 20 99 Mechanical Ventilator 60 01/30/17 10:46 90 20 60 01/30/17 10:41 50 01/30/17 10:40 78 20 96 Mechanical Ventilator 60 01/30/17 10:30 89/42 01/30/17 10:30 86 20 167/64 100 Mechanical Ventilator 50 01/30/17 10:00 81 20 194/71 97 Mechanical Ventilator 50 Height (Feet): 5 Height (Inches): 6.00 Weight (Pounds): 275 Objective HEENT: No pale conjunctivae. No icterus.ETT in place NECK: No lymphadenopathy. CHEST: coarse breath sounds HEART: S1 and S2. ABDOMEN: Soft and obese. EXTREMITIES: No cyanosis. NEUROLOGIC: lethargic. Skin: no rashes Microbiology Date/Time Source Procedure Growth Status 01/28/17 23:15 Blood Blood Culture - Preliminary NO GROWTH AFTER 24 HOURS Resulted 01/28/17 18:00 Blood Blood Culture - Preliminary NO GROWTH AFTER 24 HOURS Resulted 01/29/17 17:30 Stool Clostridium difficile Toxin Assay - Final Complete Laboratory Tests Test 01/30/17 10:10 01/31/17 06:00 Arterial Blood pH 7.470 (7.350-7.450) Arterial Blood Partial Pressure CO2 31.6 mmHg (35.0-45.0) L Arterial Blood Partial Pressure O2 53.0 mmHg (75.0-100.0) L Arterial Blood HCO3 22.7 mmol/L (22.0-26.0) Arterial Blood Oxygen Saturation 88.3 % (92.0-98.0) L Arterial Blood Base Excess -0.3 Bon Test Positive White Blood Count 10.2 K/UL (4.8-10.8) Red Blood Count 2.79 M/UL (4.20-5.40) L Hemoglobin 8.7 G/DL (12.0-16.0) L Hematocrit 27.4 % (37.0-47.0) L Mean Corpuscular Volume 98 FL (80-99) Mean Corpuscular Hemoglobin 31.3 PG (27.0-31.0) H Mean Corpuscular Hemoglobin Concent 31.9 G/DL (32.0-36.0) L Red Cell Distribution Width 17.5 % (11.6-14.8) H Platelet Count 25 K/UL (150-450) L Mean Platelet Volume 12.6 FL (6.5-10.1) H Neutrophils (%) (Auto) % (45.0-75.0) Lymphocytes (%) (Auto) % (20.0-45.0) Monocytes (%) (Auto) % (1.0-10.0) Eosinophils (%) (Auto) % (0.0-3.0) Basophils (%) (Auto) % (0.0-2.0) Differential Total Cells Counted 100 Neutrophils % (Manual) 90 % (45-75) H Lymphocytes % (Manual) 5 % (20-45) L Monocytes % (Manual) 1 % (1-10) Eosinophils % (Manual) 0 % (0-3) Basophils % (Manual) 0 % (0-2) Band Neutrophils 4 % (0-8) Platelet Estimate Decreased L Platelet Morphology Normal Anisocytosis 1+ Schistocytes 1+ Sodium Level 141 MMOL/L (136-145) Potassium Level 3.1 MMOL/L (3.5-5.1) L Chloride Level 106 MMOL/L (98-107) Carbon Dioxide Level 24 MMOL/L (21-32) Anion Gap 11 (5-15) Blood Urea Nitrogen 42 mg/dL (7-18) H Creatinine 3.6 MG/DL (0.55-1.30) H Estimat Glomerular Filtration Rate mL/min (>60) Glucose Level 348 MG/DL (74-106) #H Uric Acid 5.2 MG/DL (2.6-7.2) Calcium Level 9.3 MG/DL (8.5-10.1) Phosphorus Level 3.0 MG/DL (2.5-4.9) Magnesium Level 2.1 MG/DL (1.5-2.4) Total Bilirubin 1.1 MG/DL (0.2-1.0) H Direct Bilirubin 0.6 MG/DL (0.0-0.3) H Aspartate Amino Transf (AST/SGOT) 46 U/L (15-37) H Alanine Aminotransferase (ALT/SGPT) 11 U/L (12-78) L Alkaline Phosphatase 209 U/L (46-116) H C-Reactive Protein, Quantitative 11.5 mg/dL (0.00-0.90) H Pro-B-Type Natriuretic Peptide 37996 (0-125) H Total Protein 5.3 G/DL (6.4-8.2) L Albumin 1.6 G/DL (3.4-5.0) L Globulin 3.7 g/dL Albumin/Globulin Ratio 0.4 (1.0-2.7) L Random Vancomycin Level 19.5 ug/mL Current Medications Medications (Trade) Dose Ordered Sig/Pavel Route PRN Reason Start Time Stop Time Status Last Admin Dose Admin Acetaminophen (Tylenol) 650 mg Q4H PRN ORAL T>100.5 01/21/17 14:30 02/15/17 14:29 Chlorhexidine Gluconate (Dianne-Hex 2%) 1 applic DAILY@2000 TOPIC 01/25/17 20:00 02/24/17 19:59 01/30/17 20:59 Clotrimazole (Lotrimin) 1 applic EVERY 12 HOURS TOPIC 01/21/17 21:00 02/18/17 13:59 01/31/17 08:49 Colistimethate Sodium (Colistin *inhalation use only*) 75 mg Q12HRT INH 01/29/17 22:00 02/05/17 21:59 01/30/17 21:20 Dextrose (Dextrose 50%) STAT PRN IV Hypoglycemia 01/27/17 07:45 02/26/17 07:44 Dopamine HCl/ Dextrose 250 ml @ 0 mls/hr Q24H IV 01/25/17 11:15 02/24/17 11:14 01/30/17 10:30 Ertapenem 0.5 gm/ Sodium Chloride 55 ml @ 110 mls/hr Q24H IVPB 01/28/17 09:00 02/02/17 08:59 01/31/17 09:31 Insulin Aspart (NovoLOG) EVERY 6 HOURS SUBQ 01/27/17 18:00 02/26/17 11:29 01/31/17 05:51 Lactulose (Cephulac) 10 gm BID ORAL 01/23/17 09:00 02/18/17 12:59 01/31/17 08:49 Metoclopramide HCl (Reglan) 5 mg Q8H PRN IVP Nausea & Vomiting 01/29/17 11:30 02/28/17 11:29 01/30/17 10:31 Midodrine (Pro-Amatine) 10 mg THREE TIMES A DAY NG 01/30/17 11:00 03/01/17 10:59 01/31/17 08:49 Nitroglycerin (Ntg) 0.4 mg Q5MIN X 3 DOSES PRN SL Prn Chest Pain 01/21/17 14:30 02/15/17 14:29 Nystatin (Nystop Powder) 1 applic THREE TIMES A DAY TOPIC 01/22/17 13:00 02/21/17 12:59 01/31/17 08:49 Pantoprazole (Protonix) 40 mg EVERY 12 HOURS IVP 01/21/17 21:00 02/20/17 20:59 01/31/17 08:48 Polyethylene Glycol (Miralax) 17 gm DAILYPRN PRN ORAL Constipation 01/21/17 14:00 02/17/17 13:59 Rifaximin (Xifaxan) 550 mg EVERY 12 HOURS ORAL 01/29/17 12:00 02/05/17 11:59 01/31/17 08:48 Vancomycin HCl (Vanco rx to dose) 1 ea DAILY PRN MISC Per rx protocol 01/22/17 09:00 02/18/17 11:44 Vancomycin HCl 1 gm/Dextrose 275 ml @ 183.708 mls/hr ONCE ONCE IVPB 01/31/17 10:00 01/31/17 11:29 Nereyda Monroe M.D. Jan 31, 2017 09:48
--- NOTE | 2017-01-31 09:59 | Pulmonolgy Critical Care Note ---
Critical Care - Asmt/Plan Assessment/Plan: ASSESSMENT Acute hypoxemic hypercapnic respiratory failure requiring intubation ARDS Severe sepsis Bacteremia /MRSA Septic shock-resolving HCAP with E coli ESBL UTI with Acinetobacter MDR, Pseudomonas, s/p Rx ARF on CKD, requiring HD ( started 01/28) Cirrhosis DURANT Elevated CEA positive heme occult elevated LFT AMS 2 to hepatic encephalopathy and sepsis Acute toxic metabolic encephalopathy 2 to sepsis, renal failure Thrombocytopenia anemia coagulopathy CHF with diastolic dysfunction DM Hypernatremia, resolved morbid obesity YELENA major depressive disorder PLAN OF CARE ICU care [facility] care pulmonary toilet not ready for weaning fup with daily CXR ABG , optimize settings as needed Abx ID follows s/p pressor for hemodynamic support Started on Midodrine, BP stable on HD, nephro follows, monitor closely renal parameters, lytes , lytes replacement in HD patient as per nephro Avoid nephrotoxic Monitor LFT, hep panel negative GI follows Elevated CEA, however recent EGD/colon negative stool OB + x 2 likely 2 to portal HTN gastropathy Strict aspiration precautions, GT feeding, monitor tolerance BS management with SS of insulin ECHO with EF 60-65% Monitor HH, PLT heme follows Psych follows, diagnosed with MDD , meds as per psych GI prophylaxis now DNR/DNI status overall prognosis poor case discussed and evaluated by supervising physician Critical Care - Objective Last 24 Hour Vital Signs Date Time Temp Pulse Resp B/P (MAP) Pulse Ox O2 Delivery O2 Flow Rate FiO2 01/31/17 09:00 78 20 129/57 96 Mechanical Ventilator 50 01/31/17 08:00 50 01/31/17 08:00 97.4 77 20 123/49 95 Mechanical Ventilator 50 01/31/17 08:00 83 01/31/17 07:00 79 20 133/52 95 Mechanical Ventilator 50 01/31/17 06:00 79 20 133/52 94 Mechanical Ventilator 50 01/31/17 05:19 81 20 50 01/31/17 05:00 75 20 128/50 99 Mechanical Ventilator 60 01/31/17 04:00 60 01/31/17 04:00 97.4 76 20 125/49 98 Mechanical Ventilator 60 01/31/17 03:26 75 20 60 01/31/17 03:14 74 01/31/17 03:00 87 20 128/50 98 Mechanical Ventilator 60 01/31/17 02:00 84 20 133/46 96 Mechanical Ventilator 60 01/31/17 01:16 87 20 60 01/31/17 01:00 82 20 131/47 96 Mechanical Ventilator 60 01/31/17 00:00 97.4 74 20 125/49 98 Mechanical Ventilator 60 01/31/17 00:00 60 01/30/17 23:24 75 20 60 01/30/17 23:05 71 01/30/17 23:00 72 20 125/48 97 Mechanical Ventilator 60 01/30/17 22:00 69 20 131/48 97 Mechanical Ventilator 60 01/30/17 21:30 68 20 99 Mechanical Ventilator 60 01/30/17 21:17 60 01/30/17 21:16 66 20 98 Mechanical Ventilator 60 01/30/17 21:13 72 20 60 01/30/17 21:00 71 20 121/47 97 Mechanical Ventilator 60 01/30/17 20:00 97.4 66 20 118/43 98 Mechanical Ventilator 60 01/30/17 20:00 60 01/30/17 19:38 67 01/30/17 19:17 66 20 60 01/30/17 19:00 66 20 117/48 98 Mechanical Ventilator 60 01/30/17 18:00 63 20 98/40 99 Mechanical Ventilator 60 01/30/17 17:00 63 20 92/36 98 Mechanical Ventilator 60 01/30/17 16:52 63 20 60 01/30/17 16:30 69 20 94/37 98 Mechanical Ventilator 60 01/30/17 16:00 97.4 72 20 143/52 98 Mechanical Ventilator 60 01/30/17 16:00 66 01/30/17 16:00 60 01/30/17 15:30 67 20 112/40 99 Mechanical Ventilator 60 01/30/17 15:19 68 20 60 01/30/17 15:00 66 20 94/44 98 Mechanical Ventilator 60 01/30/17 14:30 82 20 85/38 98 Mechanical Ventilator 60 01/30/17 14:00 72 20 143/53 98 Mechanical Ventilator 60 01/30/17 13:33 73 20 60 01/30/17 13:30 73 20 144/60 98 Mechanical Ventilator 60 01/30/17 13:00 74 20 144/60 98 Mechanical Ventilator 60 01/30/17 12:30 73 20 149/55 99 Mechanical Ventilator 60 01/30/17 12:00 60 01/30/17 12:00 80 01/30/17 12:00 97.3 74 20 133/53 99 Mechanical Ventilator 60 01/30/17 11:30 73 20 130/51 98 Mechanical Ventilator 60 01/30/17 11:00 74 20 90/41 98 Mechanical Ventilator 60 01/30/17 10:55 80 20 99 Mechanical Ventilator 60 01/30/17 10:46 90 20 60 01/30/17 10:41 50 01/30/17 10:40 78 20 96 Mechanical Ventilator 60 01/30/17 10:30 89/42 01/30/17 10:30 86 20 167/64 100 Mechanical Ventilator 50 01/30/17 10:00 81 20 194/71 97 Mechanical Ventilator 50 Status: somnolent, other - morbidly obese bedridden female, intubated Condition: critical HEENT: atraumatic, normocephalic, other - OP with ET in place, intact Lungs: other - coarse BS Heart: HR/BP stable, regular - SR on tele Abdomen: soft - obese , non-tender, active bowel sounds, feeding tube Extremities: other - tarce edema BLE Micro: Microbiology Date/Time Source Procedure Growth Status 01/28/17 23:15 Blood Blood Culture - Preliminary NO GROWTH AFTER 24 HOURS Resulted 01/28/17 18:00 Blood Blood Culture - Preliminary NO GROWTH AFTER 24 HOURS Resulted 01/29/17 17:30 Stool Clostridium difficile Toxin Assay - Final Complete Accucheck: 337 Critical Care - Subjective ROS Limited/Unobtainable: Yes Interval Events: off Dopamine, blood pressure stable leucocytosis resoled HH trending down K-3.1 Condition: critical IV Access: central - RIJ EKG Rhythm: Sinus Rhythm FI02: 50 Vent Support Breath Rate: 20 Vent Support Mode: AC Vent Tidal Volume: 700 Sputum Amount: Small PEEP: 0.0 PIP: 45 Tube Feeding Amount: 0 I&O: Intake and Output 01/31/17 02/01/17 19:00 07:00 Intake Total 50 ml Output Total 0 ml Balance 50 ml Tube Feeding 0 ml Other 50 ml Output Urine Total 0 ml CXR: Extensive lung disease ET-Tube: 7.0 ET Position: 21 Gustavo [facility] Jan 31, 2017 09:59
[2017-01-31] MEDS ORDERED: Vancomycin 1gm/D5W 275ml IVPB ONE ×2 (10:00)
--- NOTE | 2017-01-31 10:11 | Diagnostic Imaging Report ---
Indication: Dyspnea Comparison: 2017 A single view chest radiograph was obtained. Findings: There is diffuse airspace and interstitial disease fairly extensive in degree demonstrated, right and left. Given differences in technique, there is no significant change from prior exam. Tubes and lines are stable. Impression: No significant change. Extensive lung disease as described above
[2017-01-31] MEDS: Colistin for inhalation INH SCH ×2 (10:14→21:01)
[2017-01-31] MEDS: DOPamine 400mg/250ml 250 ML IV SCH (11:15)
[2017-01-31] MEDS ORDERED: Albuterol/Ipratropium 3ml neb HHN PRN (11:15)
--- NOTE | 2017-01-31 11:20 | General Progress Note ---
Assessment/Plan Status: unchanged Assessment/Plan Acute on chronic renal failure- multifactorial CHF DM HTN Sepsis Now: Acute respiratory failure- Intubated - Altered level of consciousness - ESBL (extended spectrum beta-lactamase) producing bacteria infection - Cardiomegaly - DM (diabetes mellitus) - HTN (hypertension) - UTI (urinary tract infection) - Anemia - High Cholestrol - COPD - YELENA - Fatty liver Plan: stop IV fluid- Increase Tube feeding add midodrine dialysis 01/30- done - 3 liters removed Transfuse as needed Optimize cardiac and pulmonary status 2D echo results noted avoid nephrotoxics monitor renal parameters Urine studies per orders poor prognosis Subjective ROS Limited/Unobtainable: Yes Allergies: Coded Allergies: PENICILLINS (Unverified Allergy, Unknown, 03/22/15) Objective Last 24 Hour Vital Signs Date Time Temp Pulse Resp B/P (MAP) Pulse Ox O2 Delivery O2 Flow Rate FiO2 01/31/17 11:05 69 20 50 01/31/17 10:19 71 20 96 Mechanical Ventilator 50 01/31/17 10:00 70 20 143/55 96 Mechanical Ventilator 50 01/31/17 09:10 73 20 98 Mechanical Ventilator 50 01/31/17 09:05 50 01/31/17 09:05 71 20 50 01/31/17 09:00 78 20 129/57 96 Mechanical Ventilator 50 01/31/17 08:00 50 01/31/17 08:00 97.4 77 20 123/49 95 Mechanical Ventilator 50 01/31/17 08:00 83 01/31/17 07:05 78 20 50 01/31/17 07:00 79 20 133/52 95 Mechanical Ventilator 50 01/31/17 06:00 79 20 133/52 94 Mechanical Ventilator 50 01/31/17 05:19 81 20 50 01/31/17 05:00 75 20 128/50 99 Mechanical Ventilator 60 01/31/17 04:00 60 01/31/17 04:00 97.4 76 20 125/49 98 Mechanical Ventilator 60 01/31/17 03:26 75 20 60 01/31/17 03:14 74 01/31/17 03:00 87 20 128/50 98 Mechanical Ventilator 60 01/31/17 02:00 84 20 133/46 96 Mechanical Ventilator 60 01/31/17 01:16 87 20 60 01/31/17 01:00 82 20 131/47 96 Mechanical Ventilator 60 01/31/17 00:00 97.4 74 20 125/49 98 Mechanical Ventilator 60 01/31/17 00:00 60 01/30/17 23:24 75 20 60 01/30/17 23:05 71 01/30/17 23:00 72 20 125/48 97 Mechanical Ventilator 60 01/30/17 22:00 69 20 131/48 97 Mechanical Ventilator 60 01/30/17 21:30 68 20 99 Mechanical Ventilator 60 01/30/17 21:17 60 01/30/17 21:16 66 20 98 Mechanical Ventilator 60 01/30/17 21:13 72 20 60 01/30/17 21:00 71 20 121/47 97 Mechanical Ventilator 60 01/30/17 20:00 97.4 66 20 118/43 98 Mechanical Ventilator 60 01/30/17 20:00 60 01/30/17 19:38 67 01/30/17 19:17 66 20 60 01/30/17 19:00 66 20 117/48 98 Mechanical Ventilator 60 01/30/17 18:00 63 20 98/40 99 Mechanical Ventilator 60 01/30/17 17:00 63 20 92/36 98 Mechanical Ventilator 60 01/30/17 16:52 63 20 60 01/30/17 16:30 69 20 94/37 98 Mechanical Ventilator 60 01/30/17 16:00 97.4 72 20 143/52 98 Mechanical Ventilator 60 01/30/17 16:00 66 01/30/17 16:00 60 01/30/17 15:30 67 20 112/40 99 Mechanical Ventilator 60 01/30/17 15:19 68 20 60 01/30/17 15:00 66 20 94/44 98 Mechanical Ventilator 60 01/30/17 14:30 82 20 85/38 98 Mechanical Ventilator 60 01/30/17 14:00 72 20 143/53 98 Mechanical Ventilator 60 01/30/17 13:33 73 20 60 01/30/17 13:30 73 20 144/60 98 Mechanical Ventilator 60 01/30/17 13:00 74 20 144/60 98 Mechanical Ventilator 60 01/30/17 12:30 73 20 149/55 99 Mechanical Ventilator 60 01/30/17 12:00 60 01/30/17 12:00 80 01/30/17 12:00 97.3 74 20 133/53 99 Mechanical Ventilator 60 01/30/17 11:30 73 20 130/51 98 Mechanical Ventilator 60 Intake and Output 01/31/17 02/01/17 19:00 07:00 Intake Total 50 ml Output Total 0 ml Balance 50 ml Tube Feeding 0 ml Other 50 ml Output Urine Total 0 ml Laboratory Tests 01/31/17 06:00: White Blood Count 10.2, Red Blood Count 2.79L, Hemoglobin 8.7L, Hematocrit 27.4L , Mean Corpuscular Volume 98, Mean Corpuscular Hemoglobin 31.3H, Mean Corpuscular Hemoglobin Concent 31.9L, Red Cell Distribution Width 17.5H, Platelet Count 25L, Mean Platelet Volume 12.6H, Neutrophils (%) (Auto) , Lymphocytes (%) (Auto) , Monocytes (%) (Auto) , Eosinophils (%) (Auto) , Basophils (%) (Auto) , Differential Total Cells Counted 100, Neutrophils % ( Manual) 90H, Lymphocytes % (Manual) 5L, Monocytes % (Manual) 1, Eosinophils % ( Manual) 0, Basophils % (Manual) 0, Band Neutrophils 4, Platelet Estimate DecreasedL, Platelet Morphology Normal, Anisocytosis 1+, Schistocytes 1+, Sodium Level 141, Potassium Level 3.1L, Chloride Level 106, Carbon Dioxide Level 24, Anion Gap 11, Blood Urea Nitrogen 42H, Creatinine 3.6H, Estimat Glomerular Filtration Rate , Glucose Level 348#H, Uric Acid 5.2, Calcium Level 9.3, Phosphorus Level 3.0, Magnesium Level 2.1, Total Bilirubin 1.1H, Direct Bilirubin 0.6H, Aspartate Amino Transf (AST/SGOT) 46H, Alanine Aminotransferase (ALT/SGPT) 11L, Alkaline Phosphatase 209H, C-Reactive Protein, Quantitative 11.5H, Pro-B-Type Natriuretic Peptide 92111C, Total Protein 5.3L, Albumin 1.6L, Globulin 3.7, Albumin/Globulin Ratio 0.4L, Random Vancomycin Level 19.5 Height (Feet): 5 Height (Inches): 6.00 Weight (Pounds): 275 General Appearance: no apparent distress EENT: other - intubated Cardiovascular: regular rhythm Respiratory/Chest: decreased breath sounds Abdomen: soft Objective no other change ANDERS MOLINA Jan 31, 2017 11:20
--- NOTE | 2017-01-31 11:30 | General Progress Note ---
Assessment/Plan Problem List: (1) Cirrhosis ICD Codes: K74.60 - Unspecified cirrhosis of liver SNOMED: 65595044 (2) Diabetes mellitus, type II ICD Codes: E11.9 - Type 2 diabetes mellitus without complications SNOMED: 09026665 (3) GERD (gastroesophageal reflux disease) ICD Codes: K21.9 - Gastro-esophageal reflux disease without esophagitis SNOMED: 592217445 (4) Elevated CEA ICD Codes: R97.0 - Elevated carcinoembryonic antigen [CEA] SNOMED: 85932232, 236795539 (5) Elevated liver enzymes ICD Codes: R74.8 - Abnormal levels of other serum enzymes SNOMED: 658565209, 287719845 (6) Dysphagia ICD Codes: R13.10 - Dysphagia, unspecified SNOMED: 73700645, 455479675 (7) Renal failure ICD Codes: N19 - Unspecified kidney failure SNOMED: 27315393 Assessment/Plan change GTf back to cont cont reglan add erythromycin monitor residuals Subjective ROS Limited/Unobtainable: No Allergies: Coded Allergies: PENICILLINS (Unverified Allergy, Unknown, 03/22/15) Objective Last 24 Hour Vital Signs Date Time Temp Pulse Resp B/P (MAP) Pulse Ox O2 Delivery O2 Flow Rate FiO2 01/31/17 11:05 69 20 50 01/31/17 11:00 69 20 144/56 95 Mechanical Ventilator 50 01/31/17 10:19 71 20 96 Mechanical Ventilator 50 01/31/17 10:00 70 20 143/55 96 Mechanical Ventilator 50 01/31/17 09:10 73 20 98 Mechanical Ventilator 50 01/31/17 09:05 50 01/31/17 09:05 71 20 50 01/31/17 09:00 78 20 129/57 96 Mechanical Ventilator 50 01/31/17 08:00 50 01/31/17 08:00 97.4 77 20 123/49 95 Mechanical Ventilator 50 01/31/17 08:00 83 01/31/17 07:05 78 20 50 01/31/17 07:00 79 20 133/52 95 Mechanical Ventilator 50 01/31/17 06:00 79 20 133/52 94 Mechanical Ventilator 50 01/31/17 05:19 81 20 50 01/31/17 05:00 75 20 128/50 99 Mechanical Ventilator 60 01/31/17 04:00 60 01/31/17 04:00 97.4 76 20 125/49 98 Mechanical Ventilator 60 01/31/17 03:26 75 20 60 01/31/17 03:14 74 01/31/17 03:00 87 20 128/50 98 Mechanical Ventilator 60 01/31/17 02:00 84 20 133/46 96 Mechanical Ventilator 60 01/31/17 01:16 87 20 60 01/31/17 01:00 82 20 131/47 96 Mechanical Ventilator 60 01/31/17 00:00 97.4 74 20 125/49 98 Mechanical Ventilator 60 01/31/17 00:00 60 01/30/17 23:24 75 20 60 01/30/17 23:05 71 01/30/17 23:00 72 20 125/48 97 Mechanical Ventilator 60 01/30/17 22:00 69 20 131/48 97 Mechanical Ventilator 60 01/30/17 21:30 68 20 99 Mechanical Ventilator 60 01/30/17 21:17 60 01/30/17 21:16 66 20 98 Mechanical Ventilator 60 01/30/17 21:13 72 20 60 01/30/17 21:00 71 20 121/47 97 Mechanical Ventilator 60 01/30/17 20:00 97.4 66 20 118/43 98 Mechanical Ventilator 60 01/30/17 20:00 60 01/30/17 19:38 67 01/30/17 19:17 66 20 60 01/30/17 19:00 66 20 117/48 98 Mechanical Ventilator 60 01/30/17 18:00 63 20 98/40 99 Mechanical Ventilator 60 01/30/17 17:00 63 20 92/36 98 Mechanical Ventilator 60 01/30/17 16:52 63 20 60 01/30/17 16:30 69 20 94/37 98 Mechanical Ventilator 60 01/30/17 16:00 97.4 72 20 143/52 98 Mechanical Ventilator 60 01/30/17 16:00 66 01/30/17 16:00 60 01/30/17 15:30 67 20 112/40 99 Mechanical Ventilator 60 01/30/17 15:19 68 20 60 01/30/17 15:00 66 20 94/44 98 Mechanical Ventilator 60 01/30/17 14:30 82 20 85/38 98 Mechanical Ventilator 60 01/30/17 14:00 72 20 143/53 98 Mechanical Ventilator 60 01/30/17 13:33 73 20 60 01/30/17 13:30 73 20 144/60 98 Mechanical Ventilator 60 01/30/17 13:00 74 20 144/60 98 Mechanical Ventilator 60 01/30/17 12:30 73 20 149/55 99 Mechanical Ventilator 60 01/30/17 12:00 60 01/30/17 12:00 80 01/30/17 12:00 97.3 74 20 133/53 99 Mechanical Ventilator 60 01/30/17 11:30 73 20 130/51 98 Mechanical Ventilator 60 Intake and Output 01/31/17 02/01/17 19:00 07:00 Intake Total 50 ml Output Total 0 ml Balance 50 ml Tube Feeding 0 ml Other 50 ml Output Urine Total 0 ml Laboratory Tests 01/31/17 06:00: White Blood Count 10.2, Red Blood Count 2.79L, Hemoglobin 8.7L, Hematocrit 27.4L , Mean Corpuscular Volume 98, Mean Corpuscular Hemoglobin 31.3H, Mean Corpuscular Hemoglobin Concent 31.9L, Red Cell Distribution Width 17.5H, Platelet Count 25L, Mean Platelet Volume 12.6H, Neutrophils (%) (Auto) , Lymphocytes (%) (Auto) , Monocytes (%) (Auto) , Eosinophils (%) (Auto) , Basophils (%) (Auto) , Differential Total Cells Counted 100, Neutrophils % ( Manual) 90H, Lymphocytes % (Manual) 5L, Monocytes % (Manual) 1, Eosinophils % ( Manual) 0, Basophils % (Manual) 0, Band Neutrophils 4, Platelet Estimate DecreasedL, Platelet Morphology Normal, Anisocytosis 1+, Schistocytes 1+, Sodium Level 141, Potassium Level 3.1L, Chloride Level 106, Carbon Dioxide Level 24, Anion Gap 11, Blood Urea Nitrogen 42H, Creatinine 3.6H, Estimat Glomerular Filtration Rate , Glucose Level 348#H, Uric Acid 5.2, Calcium Level 9.3, Phosphorus Level 3.0, Magnesium Level 2.1, Total Bilirubin 1.1H, Direct Bilirubin 0.6H, Aspartate Amino Transf (AST/SGOT) 46H, Alanine Aminotransferase (ALT/SGPT) 11L, Alkaline Phosphatase 209H, C-Reactive Protein, Quantitative 11.5H, Pro-B-Type Natriuretic Peptide 03438D, Total Protein 5.3L, Albumin 1.6L, Globulin 3.7, Albumin/Globulin Ratio 0.4L, Random Vancomycin Level 19.5 Height (Feet): 5 Height (Inches): 6.00 Weight (Pounds): 275 General Appearance: no apparent distress EENT: normal ENT inspection Neck: supple Cardiovascular: normal rate Respiratory/Chest: decreased breath sounds Abdomen: normal bowel sounds, non tender, soft Extremities: non-tender AUGUSTINA BANEGAS Jan 31, 2017 11:30
--- NOTE | 2017-01-31 11:30 | General Progress Note ---
Assessment/Plan Problem List: (1) Cirrhosis ICD Codes: K74.60 - Unspecified cirrhosis of liver SNOMED: 48172637 (2) Diabetes mellitus, type II ICD Codes: E11.9 - Type 2 diabetes mellitus without complications SNOMED: 51695053 (3) GERD (gastroesophageal reflux disease) ICD Codes: K21.9 - Gastro-esophageal reflux disease without esophagitis SNOMED: 204054537 (4) Elevated CEA ICD Codes: R97.0 - Elevated carcinoembryonic antigen [CEA] SNOMED: 41262031, 747717725 (5) Elevated liver enzymes ICD Codes: R74.8 - Abnormal levels of other serum enzymes SNOMED: 881407327, 406237790 (6) Dysphagia ICD Codes: R13.10 - Dysphagia, unspecified SNOMED: 15440774, 893270796 (7) Renal failure ICD Codes: N19 - Unspecified kidney failure SNOMED: 42942199 Assessment/Plan change GTf back to cont cont reglan add erythromycin monitor residuals Subjective ROS Limited/Unobtainable: No Allergies: Coded Allergies: PENICILLINS (Unverified Allergy, Unknown, 03/22/15) Objective Last 24 Hour Vital Signs Date Time Temp Pulse Resp B/P (MAP) Pulse Ox O2 Delivery O2 Flow Rate FiO2 01/31/17 11:05 69 20 50 01/31/17 11:00 69 20 144/56 95 Mechanical Ventilator 50 01/31/17 10:19 71 20 96 Mechanical Ventilator 50 01/31/17 10:00 70 20 143/55 96 Mechanical Ventilator 50 01/31/17 09:10 73 20 98 Mechanical Ventilator 50 01/31/17 09:05 50 01/31/17 09:05 71 20 50 01/31/17 09:00 78 20 129/57 96 Mechanical Ventilator 50 01/31/17 08:00 50 01/31/17 08:00 97.4 77 20 123/49 95 Mechanical Ventilator 50 01/31/17 08:00 83 01/31/17 07:05 78 20 50 01/31/17 07:00 79 20 133/52 95 Mechanical Ventilator 50 01/31/17 06:00 79 20 133/52 94 Mechanical Ventilator 50 01/31/17 05:19 81 20 50 01/31/17 05:00 75 20 128/50 99 Mechanical Ventilator 60 01/31/17 04:00 60 01/31/17 04:00 97.4 76 20 125/49 98 Mechanical Ventilator 60 01/31/17 03:26 75 20 60 01/31/17 03:14 74 01/31/17 03:00 87 20 128/50 98 Mechanical Ventilator 60 01/31/17 02:00 84 20 133/46 96 Mechanical Ventilator 60 01/31/17 01:16 87 20 60 01/31/17 01:00 82 20 131/47 96 Mechanical Ventilator 60 01/31/17 00:00 97.4 74 20 125/49 98 Mechanical Ventilator 60 01/31/17 00:00 60 01/30/17 23:24 75 20 60 01/30/17 23:05 71 01/30/17 23:00 72 20 125/48 97 Mechanical Ventilator 60 01/30/17 22:00 69 20 131/48 97 Mechanical Ventilator 60 01/30/17 21:30 68 20 99 Mechanical Ventilator 60 01/30/17 21:17 60 01/30/17 21:16 66 20 98 Mechanical Ventilator 60 01/30/17 21:13 72 20 60 01/30/17 21:00 71 20 121/47 97 Mechanical Ventilator 60 01/30/17 20:00 97.4 66 20 118/43 98 Mechanical Ventilator 60 01/30/17 20:00 60 01/30/17 19:38 67 01/30/17 19:17 66 20 60 01/30/17 19:00 66 20 117/48 98 Mechanical Ventilator 60 01/30/17 18:00 63 20 98/40 99 Mechanical Ventilator 60 01/30/17 17:00 63 20 92/36 98 Mechanical Ventilator 60 01/30/17 16:52 63 20 60 01/30/17 16:30 69 20 94/37 98 Mechanical Ventilator 60 01/30/17 16:00 97.4 72 20 143/52 98 Mechanical Ventilator 60 01/30/17 16:00 66 01/30/17 16:00 60 01/30/17 15:30 67 20 112/40 99 Mechanical Ventilator 60 01/30/17 15:19 68 20 60 01/30/17 15:00 66 20 94/44 98 Mechanical Ventilator 60 01/30/17 14:30 82 20 85/38 98 Mechanical Ventilator 60 01/30/17 14:00 72 20 143/53 98 Mechanical Ventilator 60 01/30/17 13:33 73 20 60 01/30/17 13:30 73 20 144/60 98 Mechanical Ventilator 60 01/30/17 13:00 74 20 144/60 98 Mechanical Ventilator 60 01/30/17 12:30 73 20 149/55 99 Mechanical Ventilator 60 01/30/17 12:00 60 01/30/17 12:00 80 01/30/17 12:00 97.3 74 20 133/53 99 Mechanical Ventilator 60 01/30/17 11:30 73 20 130/51 98 Mechanical Ventilator 60 Intake and Output 01/31/17 02/01/17 19:00 07:00 Intake Total 50 ml Output Total 0 ml Balance 50 ml Tube Feeding 0 ml Other 50 ml Output Urine Total 0 ml Laboratory Tests 01/31/17 06:00: White Blood Count 10.2, Red Blood Count 2.79L, Hemoglobin 8.7L, Hematocrit 27.4L , Mean Corpuscular Volume 98, Mean Corpuscular Hemoglobin 31.3H, Mean Corpuscular Hemoglobin Concent 31.9L, Red Cell Distribution Width 17.5H, Platelet Count 25L, Mean Platelet Volume 12.6H, Neutrophils (%) (Auto) , Lymphocytes (%) (Auto) , Monocytes (%) (Auto) , Eosinophils (%) (Auto) , Basophils (%) (Auto) , Differential Total Cells Counted 100, Neutrophils % ( Manual) 90H, Lymphocytes % (Manual) 5L, Monocytes % (Manual) 1, Eosinophils % ( Manual) 0, Basophils % (Manual) 0, Band Neutrophils 4, Platelet Estimate DecreasedL, Platelet Morphology Normal, Anisocytosis 1+, Schistocytes 1+, Sodium Level 141, Potassium Level 3.1L, Chloride Level 106, Carbon Dioxide Level 24, Anion Gap 11, Blood Urea Nitrogen 42H, Creatinine 3.6H, Estimat Glomerular Filtration Rate , Glucose Level 348#H, Uric Acid 5.2, Calcium Level 9.3, Phosphorus Level 3.0, Magnesium Level 2.1, Total Bilirubin 1.1H, Direct Bilirubin 0.6H, Aspartate Amino Transf (AST/SGOT) 46H, Alanine Aminotransferase (ALT/SGPT) 11L, Alkaline Phosphatase 209H, C-Reactive Protein, Quantitative 11.5H, Pro-B-Type Natriuretic Peptide 18668W, Total Protein 5.3L, Albumin 1.6L, Globulin 3.7, Albumin/Globulin Ratio 0.4L, Random Vancomycin Level 19.5 Height (Feet): 5 Height (Inches): 6.00 Weight (Pounds): 275 General Appearance: no apparent distress EENT: normal ENT inspection Neck: supple Cardiovascular: normal rate Respiratory/Chest: decreased breath sounds Abdomen: normal bowel sounds, non tender, soft Extremities: non-tender AUGUSTINA BANEGAS Jan 31, 2017 11:30
--- NOTE | 2017-01-31 11:30 | General Progress Note ---
Assessment/Plan Problem List: (1) Cirrhosis ICD Codes: K74.60 - Unspecified cirrhosis of liver SNOMED: 15426475 (2) Diabetes mellitus, type II ICD Codes: E11.9 - Type 2 diabetes mellitus without complications SNOMED: 99548910 (3) GERD (gastroesophageal reflux disease) ICD Codes: K21.9 - Gastro-esophageal reflux disease without esophagitis SNOMED: 000456300 (4) Elevated CEA ICD Codes: R97.0 - Elevated carcinoembryonic antigen [CEA] SNOMED: 84536124, 155443170 (5) Elevated liver enzymes ICD Codes: R74.8 - Abnormal levels of other serum enzymes SNOMED: 050111246, 168030513 (6) Dysphagia ICD Codes: R13.10 - Dysphagia, unspecified SNOMED: 13244590, 218533147 (7) Renal failure ICD Codes: N19 - Unspecified kidney failure SNOMED: 31257785 Assessment/Plan change GTf back to cont cont reglan add erythromycin monitor residuals Subjective ROS Limited/Unobtainable: No Allergies: Coded Allergies: PENICILLINS (Unverified Allergy, Unknown, 03/22/15) Objective Last 24 Hour Vital Signs Date Time Temp Pulse Resp B/P (MAP) Pulse Ox O2 Delivery O2 Flow Rate FiO2 01/31/17 11:05 69 20 50 01/31/17 11:00 69 20 144/56 95 Mechanical Ventilator 50 01/31/17 10:19 71 20 96 Mechanical Ventilator 50 01/31/17 10:00 70 20 143/55 96 Mechanical Ventilator 50 01/31/17 09:10 73 20 98 Mechanical Ventilator 50 01/31/17 09:05 50 01/31/17 09:05 71 20 50 01/31/17 09:00 78 20 129/57 96 Mechanical Ventilator 50 01/31/17 08:00 50 01/31/17 08:00 97.4 77 20 123/49 95 Mechanical Ventilator 50 01/31/17 08:00 83 01/31/17 07:05 78 20 50 01/31/17 07:00 79 20 133/52 95 Mechanical Ventilator 50 01/31/17 06:00 79 20 133/52 94 Mechanical Ventilator 50 01/31/17 05:19 81 20 50 01/31/17 05:00 75 20 128/50 99 Mechanical Ventilator 60 01/31/17 04:00 60 01/31/17 04:00 97.4 76 20 125/49 98 Mechanical Ventilator 60 01/31/17 03:26 75 20 60 01/31/17 03:14 74 01/31/17 03:00 87 20 128/50 98 Mechanical Ventilator 60 01/31/17 02:00 84 20 133/46 96 Mechanical Ventilator 60 01/31/17 01:16 87 20 60 01/31/17 01:00 82 20 131/47 96 Mechanical Ventilator 60 01/31/17 00:00 97.4 74 20 125/49 98 Mechanical Ventilator 60 01/31/17 00:00 60 01/30/17 23:24 75 20 60 01/30/17 23:05 71 01/30/17 23:00 72 20 125/48 97 Mechanical Ventilator 60 01/30/17 22:00 69 20 131/48 97 Mechanical Ventilator 60 01/30/17 21:30 68 20 99 Mechanical Ventilator 60 01/30/17 21:17 60 01/30/17 21:16 66 20 98 Mechanical Ventilator 60 01/30/17 21:13 72 20 60 01/30/17 21:00 71 20 121/47 97 Mechanical Ventilator 60 01/30/17 20:00 97.4 66 20 118/43 98 Mechanical Ventilator 60 01/30/17 20:00 60 01/30/17 19:38 67 01/30/17 19:17 66 20 60 01/30/17 19:00 66 20 117/48 98 Mechanical Ventilator 60 01/30/17 18:00 63 20 98/40 99 Mechanical Ventilator 60 01/30/17 17:00 63 20 92/36 98 Mechanical Ventilator 60 01/30/17 16:52 63 20 60 01/30/17 16:30 69 20 94/37 98 Mechanical Ventilator 60 01/30/17 16:00 97.4 72 20 143/52 98 Mechanical Ventilator 60 01/30/17 16:00 66 01/30/17 16:00 60 01/30/17 15:30 67 20 112/40 99 Mechanical Ventilator 60 01/30/17 15:19 68 20 60 01/30/17 15:00 66 20 94/44 98 Mechanical Ventilator 60 01/30/17 14:30 82 20 85/38 98 Mechanical Ventilator 60 01/30/17 14:00 72 20 143/53 98 Mechanical Ventilator 60 01/30/17 13:33 73 20 60 01/30/17 13:30 73 20 144/60 98 Mechanical Ventilator 60 01/30/17 13:00 74 20 144/60 98 Mechanical Ventilator 60 01/30/17 12:30 73 20 149/55 99 Mechanical Ventilator 60 01/30/17 12:00 60 01/30/17 12:00 80 01/30/17 12:00 97.3 74 20 133/53 99 Mechanical Ventilator 60 01/30/17 11:30 73 20 130/51 98 Mechanical Ventilator 60 Intake and Output 01/31/17 02/01/17 19:00 07:00 Intake Total 50 ml Output Total 0 ml Balance 50 ml Tube Feeding 0 ml Other 50 ml Output Urine Total 0 ml Laboratory Tests 01/31/17 06:00: White Blood Count 10.2, Red Blood Count 2.79L, Hemoglobin 8.7L, Hematocrit 27.4L , Mean Corpuscular Volume 98, Mean Corpuscular Hemoglobin 31.3H, Mean Corpuscular Hemoglobin Concent 31.9L, Red Cell Distribution Width 17.5H, Platelet Count 25L, Mean Platelet Volume 12.6H, Neutrophils (%) (Auto) , Lymphocytes (%) (Auto) , Monocytes (%) (Auto) , Eosinophils (%) (Auto) , Basophils (%) (Auto) , Differential Total Cells Counted 100, Neutrophils % ( Manual) 90H, Lymphocytes % (Manual) 5L, Monocytes % (Manual) 1, Eosinophils % ( Manual) 0, Basophils % (Manual) 0, Band Neutrophils 4, Platelet Estimate DecreasedL, Platelet Morphology Normal, Anisocytosis 1+, Schistocytes 1+, Sodium Level 141, Potassium Level 3.1L, Chloride Level 106, Carbon Dioxide Level 24, Anion Gap 11, Blood Urea Nitrogen 42H, Creatinine 3.6H, Estimat Glomerular Filtration Rate , Glucose Level 348#H, Uric Acid 5.2, Calcium Level 9.3, Phosphorus Level 3.0, Magnesium Level 2.1, Total Bilirubin 1.1H, Direct Bilirubin 0.6H, Aspartate Amino Transf (AST/SGOT) 46H, Alanine Aminotransferase (ALT/SGPT) 11L, Alkaline Phosphatase 209H, C-Reactive Protein, Quantitative 11.5H, Pro-B-Type Natriuretic Peptide 62748G, Total Protein 5.3L, Albumin 1.6L, Globulin 3.7, Albumin/Globulin Ratio 0.4L, Random Vancomycin Level 19.5 Height (Feet): 5 Height (Inches): 6.00 Weight (Pounds): 275 General Appearance: no apparent distress EENT: normal ENT inspection Neck: supple Cardiovascular: normal rate Respiratory/Chest: decreased breath sounds Abdomen: normal bowel sounds, non tender, soft Extremities: non-tender AUGUSTINA BANEGAS Jan 31, 2017 11:30
[2017-01-31] MEDS: Metoclopramide 10mg/2ml Inj IVP PRN (11:46)
[2017-01-31] MEDS: Erythromycin Ethylsuccinate 200mg/5ml Susp ORAL SCH ×3 (13:46→23:45)
[2017-01-31] MEDS ORDERED: Midodrine 10mg tab NG SCH (14:00)
--- NOTE | 2017-01-31 14:47 | Cardiac Electrophysiology PN ---
Assessment/Plan Assessment/Plan 1. Congestive heart failure and very high BNP due to diastolic dysfunction. Ejection fraction 60% to 65%. EKG showed normal sinus rhythm with low voltage QRS. Had dialysis yesterday 2. Shock, resolved.Off Dopamine and on Abx 3. Bradycardia resolved, off dopamine. Decrease midodrine to 5 tid 4. Diabetes. 5. Hyperlipidemia. 6. Cirrhosis 7. Anemia with hemoglobin of 8. 8. Hypernatremia resolved 9. DNR and DNI 10. ESRD on HD DW RN Subjective Subjective In ICU unresponsive on Vent. Had Dialysis yesterday off Dopamine. DNR and DNI Objective Last 24 Hour Vital Signs Date Time Temp Pulse Resp B/P (MAP) Pulse Ox O2 Delivery O2 Flow Rate FiO2 01/31/17 14:00 62 20 137/51 97 Mechanical Ventilator 50 01/31/17 13:05 63 20 50 01/31/17 13:00 67 20 145/55 96 Mechanical Ventilator 50 01/31/17 12:00 97.5 66 20 118/69 95 Mechanical Ventilator 50 01/31/17 12:00 70 01/31/17 12:00 50 01/31/17 11:15 144/56 01/31/17 11:05 69 20 50 01/31/17 11:00 69 20 144/56 95 Mechanical Ventilator 50 01/31/17 10:19 71 20 96 Mechanical Ventilator 50 01/31/17 10:00 70 20 143/55 96 Mechanical Ventilator 50 01/31/17 09:10 73 20 98 Mechanical Ventilator 50 01/31/17 09:05 50 01/31/17 09:05 71 20 50 01/31/17 09:00 78 20 129/57 96 Mechanical Ventilator 50 01/31/17 08:00 50 01/31/17 08:00 97.4 77 20 123/49 95 Mechanical Ventilator 50 01/31/17 08:00 83 01/31/17 07:05 78 20 50 01/31/17 07:00 79 20 133/52 95 Mechanical Ventilator 50 01/31/17 06:00 79 20 133/52 94 Mechanical Ventilator 50 01/31/17 05:19 81 20 50 01/31/17 05:00 75 20 128/50 99 Mechanical Ventilator 60 01/31/17 04:00 60 01/31/17 04:00 97.4 76 20 125/49 98 Mechanical Ventilator 60 01/31/17 03:26 75 20 60 01/31/17 03:14 74 01/31/17 03:00 87 20 128/50 98 Mechanical Ventilator 60 01/31/17 02:00 84 20 133/46 96 Mechanical Ventilator 60 01/31/17 01:16 87 20 60 01/31/17 01:00 82 20 131/47 96 Mechanical Ventilator 60 01/31/17 00:00 97.4 74 20 125/49 98 Mechanical Ventilator 60 01/31/17 00:00 60 01/30/17 23:24 75 20 60 01/30/17 23:05 71 01/30/17 23:00 72 20 125/48 97 Mechanical Ventilator 60 01/30/17 22:00 69 20 131/48 97 Mechanical Ventilator 60 01/30/17 21:30 68 20 99 Mechanical Ventilator 60 01/30/17 21:17 60 01/30/17 21:16 66 20 98 Mechanical Ventilator 60 01/30/17 21:13 72 20 60 01/30/17 21:00 71 20 121/47 97 Mechanical Ventilator 60 01/30/17 20:00 97.4 66 20 118/43 98 Mechanical Ventilator 60 01/30/17 20:00 60 01/30/17 19:38 67 01/30/17 19:17 66 20 60 01/30/17 19:00 66 20 117/48 98 Mechanical Ventilator 60 01/30/17 18:00 63 20 98/40 99 Mechanical Ventilator 60 01/30/17 17:00 63 20 92/36 98 Mechanical Ventilator 60 01/30/17 16:52 63 20 60 01/30/17 16:30 69 20 94/37 98 Mechanical Ventilator 60 01/30/17 16:00 97.4 72 20 143/52 98 Mechanical Ventilator 60 01/30/17 16:00 66 01/30/17 16:00 60 01/30/17 15:30 67 20 112/40 99 Mechanical Ventilator 60 01/30/17 15:19 68 20 60 01/30/17 15:00 66 20 94/44 98 Mechanical Ventilator 60 Intake and Output 01/31/17 02/01/17 19:00 07:00 Intake Total 587.4 ml Output Total 5 ml Balance 582.4 ml IV Total 467.4 ml Tube Feeding 40 ml Other 80 ml Output Urine Total 5 ml Laboratory Tests Test 01/31/17 06:00 White Blood Count 10.2 K/UL (4.8-10.8) Red Blood Count 2.79 M/UL (4.20-5.40) L Hemoglobin 8.7 G/DL (12.0-16.0) L Hematocrit 27.4 % (37.0-47.0) L Mean Corpuscular Volume 98 FL (80-99) Mean Corpuscular Hemoglobin 31.3 PG (27.0-31.0) H Mean Corpuscular Hemoglobin Concent 31.9 G/DL (32.0-36.0) L Red Cell Distribution Width 17.5 % (11.6-14.8) H Platelet Count 25 K/UL (150-450) L Mean Platelet Volume 12.6 FL (6.5-10.1) H Neutrophils (%) (Auto) % (45.0-75.0) Lymphocytes (%) (Auto) % (20.0-45.0) Monocytes (%) (Auto) % (1.0-10.0) Eosinophils (%) (Auto) % (0.0-3.0) Basophils (%) (Auto) % (0.0-2.0) Differential Total Cells Counted 100 Neutrophils % (Manual) 90 % (45-75) H Lymphocytes % (Manual) 5 % (20-45) L Monocytes % (Manual) 1 % (1-10) Eosinophils % (Manual) 0 % (0-3) Basophils % (Manual) 0 % (0-2) Band Neutrophils 4 % (0-8) Platelet Estimate Decreased L Platelet Morphology Normal Anisocytosis 1+ Schistocytes 1+ Sodium Level 141 MMOL/L (136-145) Potassium Level 3.1 MMOL/L (3.5-5.1) L Chloride Level 106 MMOL/L (98-107) Carbon Dioxide Level 24 MMOL/L (21-32) Anion Gap 11 (5-15) Blood Urea Nitrogen 42 mg/dL (7-18) H Creatinine 3.6 MG/DL (0.55-1.30) H Estimat Glomerular Filtration Rate mL/min (>60) Glucose Level 348 MG/DL (74-106) #H Uric Acid 5.2 MG/DL (2.6-7.2) Calcium Level 9.3 MG/DL (8.5-10.1) Phosphorus Level 3.0 MG/DL (2.5-4.9) Magnesium Level 2.1 MG/DL (1.5-2.4) Total Bilirubin 1.1 MG/DL (0.2-1.0) H Direct Bilirubin 0.6 MG/DL (0.0-0.3) H Aspartate Amino Transf (AST/SGOT) 46 U/L (15-37) H Alanine Aminotransferase (ALT/SGPT) 11 U/L (12-78) L Alkaline Phosphatase 209 U/L (46-116) H C-Reactive Protein, Quantitative 11.5 mg/dL (0.00-0.90) H Pro-B-Type Natriuretic Peptide 10857 (0-125) H Total Protein 5.3 G/DL (6.4-8.2) L Albumin 1.6 G/DL (3.4-5.0) L Globulin 3.7 g/dL Albumin/Globulin Ratio 0.4 (1.0-2.7) L Random Vancomycin Level 19.5 ug/mL Microbiology Date/Time Source Procedure Growth Status 01/28/17 23:15 Blood Blood Culture - Preliminary NO GROWTH AFTER 48 HOURS Resulted 01/28/17 18:00 Blood Blood Culture - Preliminary NO GROWTH AFTER 48 HOURS Resulted 01/29/17 17:30 Stool Clostridium difficile Toxin Assay - Final Complete Objective HEAD AND NECK: No JVD.Orally intubated. Right IJ Maharkar Catheter in place LUNGS: Coarse rhonchi CARDIOVASCULAR: Regular S1 and S2 with no gallop or murmur. ABDOMEN: Soft and nontender and obese. EXTREMITIES: 2+ pitting edema. DEAN SHAW Jan 31, 2017 14:47
--- NOTE | 2017-01-31 15:08 | Internal Med Progress Note ---
Subjective Date of Service: Jan 31, 2017 Physician Name Katharina Pond Attending Physician Rl Tee MD Current Medications Medications (Trade) Dose Ordered Sig/Pavel Route PRN Reason Start Time Stop Time Status Last Admin Dose Admin Acetaminophen (Tylenol) 650 mg Q4H PRN ORAL T>100.5 01/21/17 14:30 02/15/17 14:29 Albuterol/ Ipratropium (DuoNeb 0.5-3(2.5)mg/3ml) 3 ml Q4H PRN HHN Shortness of Breath 01/31/17 11:15 02/05/17 11:14 Chlorhexidine Gluconate (Dianne-Hex 2%) 1 applic DAILY@2000 TOPIC 01/25/17 20:00 02/24/17 19:59 01/30/17 20:59 Clotrimazole (Lotrimin) 1 applic EVERY 12 HOURS TOPIC 01/21/17 21:00 02/18/17 13:59 01/31/17 08:49 Colistimethate Sodium (Colistin *inhalation use only*) 75 mg Q12HRT INH 01/29/17 22:00 02/05/17 21:59 01/31/17 10:14 Dextrose (Dextrose 50%) STAT PRN IV Hypoglycemia 01/27/17 07:45 02/26/17 07:44 Dopamine HCl/ Dextrose 250 ml @ 0 mls/hr Q24H IV 01/25/17 11:15 02/24/17 11:14 01/30/17 10:30 Ertapenem 0.5 gm/ Sodium Chloride 55 ml @ 110 mls/hr Q24H IVPB 01/28/17 09:00 02/02/17 08:59 01/31/17 09:31 Erythromycin (Jaya-Ped) 200 mg Q6HR ORAL 01/31/17 13:00 03/02/17 12:59 01/31/17 13:46 Insulin Aspart (NovoLOG) EVERY 6 HOURS SUBQ 01/27/17 18:00 02/26/17 11:29 01/31/17 11:47 Lactulose (Cephulac) 10 gm BID ORAL 01/23/17 09:00 02/18/17 12:59 01/31/17 08:49 Metoclopramide HCl (Reglan) 5 mg Q8H PRN IVP Nausea & Vomiting 01/29/17 11:30 02/28/17 11:29 01/31/17 11:46 Midodrine (Pro-Amatine) 5 mg Q8HR NG 01/31/17 14:00 03/02/17 13:59 Nitroglycerin (Ntg) 0.4 mg Q5MIN X 3 DOSES PRN SL Prn Chest Pain 01/21/17 14:30 02/15/17 14:29 Nystatin (Nystop Powder) 1 applic THREE TIMES A DAY TOPIC 01/22/17 13:00 02/21/17 12:59 01/31/17 13:46 Pantoprazole (Protonix) 40 mg EVERY 12 HOURS IVP 01/21/17 21:00 02/20/17 20:59 01/31/17 08:48 Polyethylene Glycol (Miralax) 17 gm DAILYPRN PRN ORAL Constipation 01/21/17 14:00 02/17/17 13:59 Rifaximin (Xifaxan) 550 mg EVERY 12 HOURS ORAL 01/29/17 12:00 02/05/17 11:59 01/31/17 08:48 Vancomycin HCl (Vanco rx to dose) 1 ea DAILY PRN MISC Per rx protocol 01/22/17 09:00 02/18/17 11:44 Allergies: Coded Allergies: PENICILLINS (Unverified Allergy, Unknown, 03/22/15) ROS Limited/Unobtainable: Yes Subjective 76 YO F admitted with altered mental status. Now UTI and CHF. Intubated and sedated. ICU . Cover for Int Med-Dr Tee. Continues on Dopamine Objective Last Vital Signs Date Time Temp Pulse Resp B/P (MAP) Pulse Ox O2 Delivery O2 Flow Rate FiO2 01/31/17 15:00 62 20 135/52 96 Mechanical Ventilator 50 01/31/17 12:00 97.5 01/30/17 09:12 15.0 Laboratory Tests Test 01/31/17 06:00 White Blood Count 10.2 K/UL (4.8-10.8) Red Blood Count 2.79 M/UL (4.20-5.40) L Hemoglobin 8.7 G/DL (12.0-16.0) L Hematocrit 27.4 % (37.0-47.0) L Mean Corpuscular Volume 98 FL (80-99) Mean Corpuscular Hemoglobin 31.3 PG (27.0-31.0) H Mean Corpuscular Hemoglobin Concent 31.9 G/DL (32.0-36.0) L Red Cell Distribution Width 17.5 % (11.6-14.8) H Platelet Count 25 K/UL (150-450) L Mean Platelet Volume 12.6 FL (6.5-10.1) H Neutrophils (%) (Auto) % (45.0-75.0) Lymphocytes (%) (Auto) % (20.0-45.0) Monocytes (%) (Auto) % (1.0-10.0) Eosinophils (%) (Auto) % (0.0-3.0) Basophils (%) (Auto) % (0.0-2.0) Differential Total Cells Counted 100 Neutrophils % (Manual) 90 % (45-75) H Lymphocytes % (Manual) 5 % (20-45) L Monocytes % (Manual) 1 % (1-10) Eosinophils % (Manual) 0 % (0-3) Basophils % (Manual) 0 % (0-2) Band Neutrophils 4 % (0-8) Platelet Estimate Decreased L Platelet Morphology Normal Anisocytosis 1+ Schistocytes 1+ Sodium Level 141 MMOL/L (136-145) Potassium Level 3.1 MMOL/L (3.5-5.1) L Chloride Level 106 MMOL/L (98-107) Carbon Dioxide Level 24 MMOL/L (21-32) Anion Gap 11 (5-15) Blood Urea Nitrogen 42 mg/dL (7-18) H Creatinine 3.6 MG/DL (0.55-1.30) H Estimat Glomerular Filtration Rate mL/min (>60) Glucose Level 348 MG/DL (74-106) #H Uric Acid 5.2 MG/DL (2.6-7.2) Calcium Level 9.3 MG/DL (8.5-10.1) Phosphorus Level 3.0 MG/DL (2.5-4.9) Magnesium Level 2.1 MG/DL (1.5-2.4) Total Bilirubin 1.1 MG/DL (0.2-1.0) H Direct Bilirubin 0.6 MG/DL (0.0-0.3) H Aspartate Amino Transf (AST/SGOT) 46 U/L (15-37) H Alanine Aminotransferase (ALT/SGPT) 11 U/L (12-78) L Alkaline Phosphatase 209 U/L (46-116) H C-Reactive Protein, Quantitative 11.5 mg/dL (0.00-0.90) H Pro-B-Type Natriuretic Peptide 89262 (0-125) H Total Protein 5.3 G/DL (6.4-8.2) L Albumin 1.6 G/DL (3.4-5.0) L Globulin 3.7 g/dL Albumin/Globulin Ratio 0.4 (1.0-2.7) L Random Vancomycin Level 19.5 ug/mL Microbiology Date/Time Source Procedure Growth Status 01/28/17 23:15 Blood Blood Culture - Preliminary NO GROWTH AFTER 48 HOURS Resulted 01/28/17 18:00 Blood Blood Culture - Preliminary NO GROWTH AFTER 48 HOURS Resulted 01/29/17 17:30 Stool Clostridium difficile Toxin Assay - Final Complete Intake and Output 01/31/17 02/01/17 19:00 07:00 Intake Total 587.4 ml Output Total 5 ml Balance 582.4 ml IV Total 467.4 ml Tube Feeding 40 ml Other 80 ml Output Urine Total 5 ml Objective General Appearance: WD/WN, no apparent distress, moderate distress, obese EENT: PERRL/EOMI, normal ENT inspection Neck: non-tender, normal alignment, supple, normal inspection Cardiovascular: normal peripheral pulses, normal rate, regular rhythm, no gallop/murmur, no JVD Respiratory/Chest: Mechanical vent; chest wall non-tender, lungs with coarse upper air sounds, Bilat wheezes and rales, respiratory distress Abdomen: G-Tube; non tender, no organomegaly, no mass 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 Baumanii. See ID note. Continur ertaoenem and vanco per ID (2) CHF (congestive heart failure) Assessment & Plan: LVEF 60-65%. see cardiology note. (3) DM (diabetes mellitus) Assessment & Plan: Continue novolog sliding scale (4) Hypercholesteremia (5) HTN (hypertension) Assessment & Plan: Currently hypotensive. (6) Uncontrolled diabetes mellitus (7) Cirrhosis Assessment & Plan: see GI note. (8) Anemia Assessment & Plan: Transfuse 2 units PRBC today (9) Altered mental status Assessment & Plan: Worsening. ICU status (10) Renal failure Assessment & Plan: S/P placement Dialysis cath today. See nephrology note. (11) Respiratory failure Assessment & Plan: Due to CHF. Cont mech vent per pulmonary. Continue antibiotic per ID (12) Bradycardia Assessment & Plan: see cardiology note. (13) Hypotension Assessment & Plan: Continue dopamine Status: not improved KATHARINA POND Jan 31, 2017 15:08
[2017-01-31] MEDS ORDERED: Tubing IV Secondary IV ONE (16:15)
[2017-01-31] MEDS: Dyna-Hex 2% Top Sol 2oz TOPIC SCH (19:58)
--- NOTE | 2017-01-31 21:31 | General Progress Note ---
Assessment/Plan Assessment/Plan ASSESSMENT AND RECOMMENDATIONS 1.Thrombocytopenia 2/2 sepsis --> have ordered haptoglobin and fibrinogen levels --> currently stable without improvement --> give plts if below 10k or if below 20k and febrile --> ID following 2. Coagulopathy secondary to underlying liver disease. 3. Thrombocytopenia secondary to underlying splenomegaly. 4. Anemia 2/2 chronic disease --> s/p transfusion --> Watch HH, transfuse if below 8 5. Leukocytosis secondary to underlying infection. On abx per id service 6. Sepsis 2/2 UTI 7. Altered mental status 8. RAMYA on CKD, is to receive hemodialysis Subjective ROS Limited/Unobtainable: Yes Allergies: Coded Allergies: PENICILLINS (Unverified Allergy, Unknown, 03/22/15) Subjective NAD Objective Last 24 Hour Vital Signs Date Time Temp Pulse Resp B/P (MAP) Pulse Ox O2 Delivery O2 Flow Rate FiO2 01/31/17 21:01 67 20 95 Mechanical Ventilator 50 01/31/17 21:01 50 01/31/17 20:59 66 20 50 01/31/17 19:00 66 20 129/55 95 Mechanical Ventilator 50 01/31/17 18:55 69 20 50 01/31/17 18:00 61 20 133/52 94 Mechanical Ventilator 50 01/31/17 17:05 63 20 50 01/31/17 17:00 70 20 140/51 96 Mechanical Ventilator 50 01/31/17 16:00 50 01/31/17 16:00 97.9 61 20 134/60 97 Mechanical Ventilator 50 01/31/17 16:00 61 01/31/17 15:05 64 20 50 01/31/17 15:00 62 20 135/52 96 Mechanical Ventilator 50 01/31/17 14:00 62 20 137/51 97 Mechanical Ventilator 50 01/31/17 13:05 63 20 50 01/31/17 13:00 67 20 145/55 96 Mechanical Ventilator 50 01/31/17 12:00 97.5 66 20 118/69 95 Mechanical Ventilator 50 01/31/17 12:00 70 01/31/17 12:00 50 01/31/17 11:15 144/56 01/31/17 11:05 69 20 50 01/31/17 11:00 69 20 144/56 95 Mechanical Ventilator 50 01/31/17 10:19 71 20 96 Mechanical Ventilator 50 01/31/17 10:00 70 20 143/55 96 Mechanical Ventilator 50 01/31/17 09:10 73 20 98 Mechanical Ventilator 50 01/31/17 09:05 50 01/31/17 09:05 71 20 50 01/31/17 09:00 78 20 129/57 96 Mechanical Ventilator 50 01/31/17 08:00 50 01/31/17 08:00 97.4 77 20 123/49 95 Mechanical Ventilator 50 01/31/17 08:00 83 01/31/17 07:05 78 20 50 01/31/17 07:00 79 20 133/52 95 Mechanical Ventilator 50 01/31/17 06:00 79 20 133/52 94 Mechanical Ventilator 50 01/31/17 05:19 81 20 50 01/31/17 05:00 75 20 128/50 99 Mechanical Ventilator 60 01/31/17 04:00 60 01/31/17 04:00 97.4 76 20 125/49 98 Mechanical Ventilator 60 01/31/17 03:26 75 20 60 01/31/17 03:14 74 01/31/17 03:00 87 20 128/50 98 Mechanical Ventilator 60 01/31/17 02:00 84 20 133/46 96 Mechanical Ventilator 60 01/31/17 01:16 87 20 60 01/31/17 01:00 82 20 131/47 96 Mechanical Ventilator 60 01/31/17 00:00 97.4 74 20 125/49 98 Mechanical Ventilator 60 01/31/17 00:00 60 01/30/17 23:24 75 20 60 01/30/17 23:05 71 01/30/17 23:00 72 20 125/48 97 Mechanical Ventilator 60 01/30/17 22:00 69 20 131/48 97 Mechanical Ventilator 60 01/30/17 21:30 68 20 99 Mechanical Ventilator 60 Intake and Output 01/31/17 02/01/17 19:00 07:00 Intake Total 717.4 ml Output Total 159 ml Balance 558.4 ml IV Total 467.4 ml Tube Feeding 140 ml Other 110 ml Output Urine Total 9 ml Stool Total 150 ml Laboratory Tests 01/31/17 06:00: White Blood Count 10.2, Red Blood Count 2.79L, Hemoglobin 8.7L, Hematocrit 27.4L , Mean Corpuscular Volume 98, Mean Corpuscular Hemoglobin 31.3H, Mean Corpuscular Hemoglobin Concent 31.9L, Red Cell Distribution Width 17.5H, Platelet Count 25L, Mean Platelet Volume 12.6H, Neutrophils (%) (Auto) , Lymphocytes (%) (Auto) , Monocytes (%) (Auto) , Eosinophils (%) (Auto) , Basophils (%) (Auto) , Differential Total Cells Counted 100, Neutrophils % ( Manual) 90H, Lymphocytes % (Manual) 5L, Monocytes % (Manual) 1, Eosinophils % ( Manual) 0, Basophils % (Manual) 0, Band Neutrophils 4, Platelet Estimate DecreasedL, Platelet Morphology Normal, Anisocytosis 1+, Schistocytes 1+, Sodium Level 141, Potassium Level 3.1L, Chloride Level 106, Carbon Dioxide Level 24, Anion Gap 11, Blood Urea Nitrogen 42H, Creatinine 3.6H, Estimat Glomerular Filtration Rate , Glucose Level 348#H, Uric Acid 5.2, Calcium Level 9.3, Phosphorus Level 3.0, Magnesium Level 2.1, Total Bilirubin 1.1H, Direct Bilirubin 0.6H, Aspartate Amino Transf (AST/SGOT) 46H, Alanine Aminotransferase (ALT/SGPT) 11L, Alkaline Phosphatase 209H, C-Reactive Protein, Quantitative 11.5H, Pro-B-Type Natriuretic Peptide 33291O, Total Protein 5.3L, Albumin 1.6L, Globulin 3.7, Albumin/Globulin Ratio 0.4L, Random Vancomycin Level 19.5 Height (Feet): 5 Height (Inches): 6.00 Weight (Pounds): 275 General Appearance: no apparent distress EENT: normal ENT inspection Neck: non-tender Cardiovascular: normal peripheral pulses Respiratory/Chest: chest wall non-tender Skin: normal pigmentation Chriss Pat Jan 31, 2017 21:31
[2017-02-01] VITALS (25 sets, daily range): BP systolic 114–137; BP diastolic 40–88
[2017-02-01] MEDS: Erythromycin Ethylsuccinate 200mg/5ml Susp ORAL SCH ×4 (05:53→23:33)
[2017-02-01] MEDS: NovoLOG Insulin Flexpen SUBQ SCH ×4 (05:54→23:34)
[2017-02-01] MEDS: Midodrine 10mg tab NG SCH ×3 (05:55→22:00)
[2017-02-01 06:55] LABS: HEMATOCRIT 26.8 % (37.0-47.0); HEMOGLOBIN 8.6 G/DL (12.0-16.0); MEAN CORPUSCULAR VOLUME 97 FL (80-99); PLATELET COUNT 35 K/UL (150-450); RED BLOOD COUNT 2.77 M/UL (4.20-5.40); RED CELL DISTRIBUTION WIDTH 17.3 % (11.6-14.8); WHITE BLOOD COUNT 10.3 K/UL (4.8-10.8)
[2017-02-01 07:55] LABS: ANION GAP 10 (5-15); BLOOD UREA NITROGEN 54 mg/dL (7-18); CALCIUM 9.8 MG/DL (8.5-10.1); CARBON DIOXIDE 26 MMOL/L (21-32); CHLORIDE 112 MMOL/L (98-107); CREATININE 4.3 MG/DL (0.55-1.30); POTASSIUM 2.8 MMOL/L (3.5-5.1); SODIUM 148 MMOL/L (136-145)
[2017-02-01] MEDS: Lactulose 10gm/15ml UDC ORAL SCH ×2 (08:50→17:49)
[2017-02-01] MEDS: Pantoprazole Inj IVP SCH ×2 (08:50→20:35)
[2017-02-01] MEDS: Nystatin Powder 100,000 units/gm 15gm TOPIC SCH ×3 (08:51→18:00)
--- NOTE | 2017-02-01 09:19 | Infectious Diseases Prog Note ---
Assessment/Plan Assessment/Plan A: Shock Pulmonary edema Pneumonia with Acinetobacter MRSA sepsis UTI Altered mental status Cirrhosis Anemia & thrombocytopenia DM type 2 Morbid obesity ESRD on HD P: Continue Vancomycin & Ertapenem & Colistin Subjective ROS Limited/Unobtainable: Yes Allergies: Coded Allergies: PENICILLINS (Unverified Allergy, Unknown, 03/22/15) Objective Vital Signs Last 24 Hour Vital Signs Date Time Temp Pulse Resp B/P (MAP) Pulse Ox O2 Delivery O2 Flow Rate FiO2 02/01/17 08:37 65 20 50 02/01/17 08:00 98.6 69 20 127/44 97 Mechanical Ventilator 50 02/01/17 08:00 50 02/01/17 07:18 69 21 50 02/01/17 07:00 70 20 126/43 95 Mechanical Ventilator 50 02/01/17 06:00 66 20 127/40 97 Mechanical Ventilator 50 02/01/17 05:17 69 20 50 02/01/17 05:00 70 20 125/43 97 Mechanical Ventilator 50 02/01/17 04:00 50 02/01/17 04:00 98.1 69 20 121/45 97 Mechanical Ventilator 50 02/01/17 03:01 69 02/01/17 03:00 66 20 127/45 97 Mechanical Ventilator 50 02/01/17 02:40 68 20 50 02/01/17 02:00 65 20 134/42 97 Mechanical Ventilator 50 02/01/17 01:00 67 20 125/41 97 Mechanical Ventilator 50 02/01/17 00:49 72 20 50 02/01/17 00:00 98.3 70 20 137/52 94 Mechanical Ventilator 50 02/01/17 00:00 50 01/31/17 23:28 69 20 50 01/31/17 23:03 69 01/31/17 23:00 66 20 135/48 95 Mechanical Ventilator 50 01/31/17 22:00 65 20 130/52 96 Mechanical Ventilator 50 01/31/17 21:15 69 20 99 Mechanical Ventilator 50 01/31/17 21:01 67 20 95 Mechanical Ventilator 50 01/31/17 21:01 50 01/31/17 21:00 67 20 123/48 96 Mechanical Ventilator 50 01/31/17 20:59 66 20 50 01/31/17 20:00 98.4 69 20 131/52 96 Mechanical Ventilator 50 01/31/17 20:00 50 01/31/17 19:37 68 01/31/17 19:00 66 20 129/55 95 Mechanical Ventilator 50 01/31/17 18:55 69 20 50 01/31/17 18:00 61 20 133/52 94 Mechanical Ventilator 50 01/31/17 17:05 63 20 50 01/31/17 17:00 70 20 140/51 96 Mechanical Ventilator 50 01/31/17 16:00 50 01/31/17 16:00 97.9 61 20 134/60 97 Mechanical Ventilator 50 01/31/17 16:00 61 01/31/17 15:05 64 20 50 01/31/17 15:00 62 20 135/52 96 Mechanical Ventilator 50 01/31/17 14:00 62 20 137/51 97 Mechanical Ventilator 50 01/31/17 13:05 63 20 50 01/31/17 13:00 67 20 145/55 96 Mechanical Ventilator 50 01/31/17 12:00 97.5 66 20 118/69 95 Mechanical Ventilator 50 01/31/17 12:00 70 01/31/17 12:00 50 01/31/17 11:15 144/56 01/31/17 11:05 69 20 50 01/31/17 11:00 69 20 144/56 95 Mechanical Ventilator 50 01/31/17 10:19 71 20 96 Mechanical Ventilator 50 01/31/17 10:00 70 20 143/55 96 Mechanical Ventilator 50 Height (Feet): 5 Height (Inches): 6.00 Weight (Pounds): 275 General Appearance: other - obese HEENT: other - orally intubated Respiratory/Chest: lungs clear, other - on ventilator Cardiovascular: normal rate, other - Right IJ HD line Abdomen: soft, non tender, other - NG tube Extremities: other - edema Neurologic/Psychiatric: unresponsiveness Microbiology Date/Time Source Procedure Growth Status 01/29/17 17:30 Stool Clostridium difficile Toxin Assay - Final Complete Laboratory Tests Test 02/01/17 04:00 02/01/17 05:25 02/01/17 06:50 Arterial Blood pH 7.474 (7.350-7.450) Arterial Blood Partial Pressure CO2 31.7 mmHg (35.0-45.0) L Arterial Blood Partial Pressure O2 57.3 mmHg (75.0-100.0) L Arterial Blood HCO3 22.9 mmol/L (22.0-26.0) Arterial Blood Oxygen Saturation 89.4 % (92.0-98.0) L Arterial Blood Base Excess -0.4 Bon Test Positive White Blood Count 10.3 K/UL (4.8-10.8) Red Blood Count 2.77 M/UL (4.20-5.40) L Hemoglobin 8.6 G/DL (12.0-16.0) L Hematocrit 26.8 % (37.0-47.0) L Mean Corpuscular Volume 97 FL (80-99) Mean Corpuscular Hemoglobin 31.1 PG (27.0-31.0) H Mean Corpuscular Hemoglobin Concent 32.2 G/DL (32.0-36.0) Red Cell Distribution Width 17.3 % (11.6-14.8) H Platelet Count 35 K/UL (150-450) L Mean Platelet Volume 12.2 FL (6.5-10.1) H Neutrophils (%) (Auto) % (45.0-75.0) Lymphocytes (%) (Auto) % (20.0-45.0) Monocytes (%) (Auto) % (1.0-10.0) Eosinophils (%) (Auto) % (0.0-3.0) Basophils (%) (Auto) % (0.0-2.0) Differential Total Cells Counted 100 Neutrophils % (Manual) 81 % (45-75) H Lymphocytes % (Manual) 15 % (20-45) L Monocytes % (Manual) 2 % (1-10) Eosinophils % (Manual) 2 % (0-3) Basophils % (Manual) 0 % (0-2) Band Neutrophils 0 % (0-8) Platelet Estimate Decreased L Platelet Morphology Normal Hypochromasia 1+ Anisocytosis 1+ Haptoglobin Pending Sodium Level 148 MMOL/L (136-145) H Potassium Level 2.8 MMOL/L (3.5-5.1) L Chloride Level 112 MMOL/L (98-107) H Carbon Dioxide Level 26 MMOL/L (21-32) Anion Gap 10 (5-15) Blood Urea Nitrogen 54 mg/dL (7-18) H Creatinine 4.3 MG/DL (0.55-1.30) H Estimat Glomerular Filtration Rate mL/min (>60) Glucose Level 255 MG/DL (74-106) H Calcium Level 9.8 MG/DL (8.5-10.1) Fibrinogen Pending Current Medications Medications (Trade) Dose Ordered Sig/Pavel Route PRN Reason Start Time Stop Time Status Last Admin Dose Admin Acetaminophen (Tylenol) 650 mg Q4H PRN ORAL T>100.5 01/21/17 14:30 02/15/17 14:29 Albuterol/ Ipratropium (DuoNeb 0.5-3(2.5)mg/3ml) 3 ml Q4H PRN HHN Shortness of Breath 01/31/17 11:15 02/05/17 11:14 Chlorhexidine Gluconate (Dianne-Hex 2%) 1 applic DAILY@2000 TOPIC 01/25/17 20:00 02/24/17 19:59 01/31/17 19:58 Clotrimazole (Lotrimin) 1 applic EVERY 12 HOURS TOPIC 01/21/17 21:00 02/18/17 13:59 02/01/17 08:51 Colistimethate Sodium (Colistin *inhalation use only*) 75 mg Q12HRT INH 01/29/17 22:00 02/05/17 21:59 01/31/17 21:01 Dextrose (Dextrose 50%) STAT PRN IV Hypoglycemia 01/27/17 07:45 02/26/17 07:44 Dopamine HCl/ Dextrose 250 ml @ 0 mls/hr Q24H IV 01/25/17 11:15 02/24/17 11:14 01/30/17 10:30 Ertapenem 0.5 gm/ Sodium Chloride 55 ml @ 110 mls/hr Q24H IVPB 01/28/17 09:00 02/02/17 08:59 01/31/17 09:31 Erythromycin (Jaya-Ped) 200 mg Q6HR ORAL 01/31/17 13:00 03/02/17 12:59 02/01/17 05:53 Insulin Aspart (NovoLOG) EVERY 6 HOURS SUBQ 01/27/17 18:00 02/26/17 11:29 02/01/17 05:54 Lactulose (Cephulac) 10 gm BID ORAL 01/23/17 09:00 02/18/17 12:59 02/01/17 08:50 Metoclopramide HCl (Reglan) 5 mg Q8H PRN IVP Nausea & Vomiting 01/29/17 11:30 02/28/17 11:29 01/31/17 11:46 Midodrine (Pro-Amatine) 5 mg Q8HR NG 01/31/17 14:00 03/02/17 13:59 Nitroglycerin (Ntg) 0.4 mg Q5MIN X 3 DOSES PRN SL Prn Chest Pain 01/21/17 14:30 02/15/17 14:29 Nystatin (Nystop Powder) 1 applic THREE TIMES A DAY TOPIC 01/22/17 13:00 02/21/17 12:59 02/01/17 08:51 Pantoprazole (Protonix) 40 mg EVERY 12 HOURS IVP 01/21/17 21:00 02/20/17 20:59 02/01/17 08:50 Polyethylene Glycol (Miralax) 17 gm DAILYPRN PRN ORAL Constipation 01/21/17 14:00 02/17/17 13:59 Rifaximin (Xifaxan) 550 mg EVERY 12 HOURS ORAL 01/29/17 12:00 02/05/17 11:59 02/01/17 08:50 Vancomycin HCl (Vanco rx to dose) 1 ea DAILY PRN MISC Per rx protocol 01/22/17 09:00 02/18/17 11:44 SUMMER BYRNES Feb 01, 2017 09:19
[2017-02-01] MEDS: Ertapenem 0.5 GM in NS 55 ML IVPB SCH (09:24)
[2017-02-01] MEDS: KCl 10% 40mEq/30ml liquid NG SCH ×2 (10:04→17:49)
--- NOTE | 2017-02-01 10:13 | Diagnostic Imaging Report ---
Indication: Dyspnea Comparison: 01/31/2017 A single view chest radiograph was obtained. Findings: There is diffuse airspace and interstitial disease fairly extensive in degree demonstrated, right and left. Given differences in technique, there is no significant change from prior exam. Tubes and lines are stable. Impression: No significant change from prior exam one day earlier. Extensive lung disease as described above
--- NOTE | 2017-02-01 10:29 | General Progress Note ---
Assessment/Plan Status: stable - from renal stand, deteriorating - overall status Assessment/Plan Acute on chronic renal failure- multifactorial CHF DM HTN Sepsis Now: Acute respiratory failure- Intubated - Altered level of consciousness - ESBL (extended spectrum beta-lactamase) producing bacteria infection - Cardiomegaly - DM (diabetes mellitus) - HTN (hypertension) - UTI (urinary tract infection) - Anemia - High Cholestrol - COPD - YELENA - Fatty liver Plan: stop IV fluid- Increase Tube feeding On midodrine dialysis 01/30- done - 3 liters removed next 02/02 Transfuse as needed Optimize cardiac and pulmonary status 2D echo results noted avoid nephrotoxics monitor renal parameters Urine studies per orders poor prognosis Subjective ROS Limited/Unobtainable: Yes Allergies: Coded Allergies: PENICILLINS (Unverified Allergy, Unknown, 03/22/15) Objective Last 24 Hour Vital Signs Date Time Temp Pulse Resp B/P (MAP) Pulse Ox O2 Delivery O2 Flow Rate FiO2 02/01/17 10:00 65 20 131/59 98 Mechanical Ventilator 60 02/01/17 09:00 68 20 126/48 97 Mechanical Ventilator 50 02/01/17 08:37 65 20 50 02/01/17 08:00 67 02/01/17 08:00 98.6 69 20 127/44 97 Mechanical Ventilator 50 02/01/17 08:00 50 02/01/17 07:18 69 21 50 02/01/17 07:00 70 20 126/43 95 Mechanical Ventilator 50 02/01/17 06:00 66 20 127/40 97 Mechanical Ventilator 50 02/01/17 05:17 69 20 50 02/01/17 05:00 70 20 125/43 97 Mechanical Ventilator 50 02/01/17 04:00 50 02/01/17 04:00 98.1 69 20 121/45 97 Mechanical Ventilator 50 02/01/17 03:01 69 02/01/17 03:00 66 20 127/45 97 Mechanical Ventilator 50 02/01/17 02:40 68 20 50 02/01/17 02:00 65 20 134/42 97 Mechanical Ventilator 50 02/01/17 01:00 67 20 125/41 97 Mechanical Ventilator 50 02/01/17 00:49 72 20 50 02/01/17 00:00 98.3 70 20 137/52 94 Mechanical Ventilator 50 02/01/17 00:00 50 01/31/17 23:28 69 20 50 01/31/17 23:03 69 01/31/17 23:00 66 20 135/48 95 Mechanical Ventilator 50 01/31/17 22:00 65 20 130/52 96 Mechanical Ventilator 50 01/31/17 21:15 69 20 99 Mechanical Ventilator 50 01/31/17 21:01 67 20 95 Mechanical Ventilator 50 01/31/17 21:01 50 01/31/17 21:00 67 20 123/48 96 Mechanical Ventilator 50 01/31/17 20:59 66 20 50 01/31/17 20:00 98.4 69 20 131/52 96 Mechanical Ventilator 50 01/31/17 20:00 50 01/31/17 19:37 68 01/31/17 19:00 66 20 129/55 95 Mechanical Ventilator 50 01/31/17 18:55 69 20 50 01/31/17 18:00 61 20 133/52 94 Mechanical Ventilator 50 01/31/17 17:05 63 20 50 01/31/17 17:00 70 20 140/51 96 Mechanical Ventilator 50 01/31/17 16:00 50 01/31/17 16:00 97.9 61 20 134/60 97 Mechanical Ventilator 50 01/31/17 16:00 61 01/31/17 15:05 64 20 50 01/31/17 15:00 62 20 135/52 96 Mechanical Ventilator 50 01/31/17 14:00 62 20 137/51 97 Mechanical Ventilator 50 01/31/17 13:05 63 20 50 01/31/17 13:00 67 20 145/55 96 Mechanical Ventilator 50 01/31/17 12:00 97.5 66 20 118/69 95 Mechanical Ventilator 50 01/31/17 12:00 70 01/31/17 12:00 50 01/31/17 11:15 144/56 01/31/17 11:05 69 20 50 01/31/17 11:00 69 20 144/56 95 Mechanical Ventilator 50 Intake and Output 02/01/17 02/02/17 19:00 07:00 Intake Total 110 ml Output Total 0 ml Balance 110 ml Free Water 30 ml Tube Feeding 80 ml Output Urine Total 0 ml Stool Total 0 ml Laboratory Tests 02/01/17 04:00: Arterial Blood pH 7.474H, Arterial Blood Partial Pressure CO2 31.7L, Arterial Blood Partial Pressure O2 57.3L, Arterial Blood HCO3 22.9, Arterial Blood Oxygen Saturation 89.4L, Arterial Blood Base Excess -0.4, Bon Test Positive 02/01/17 05:25: White Blood Count 10.3, Red Blood Count 2.77L, Hemoglobin 8.6L, Hematocrit 26.8L , Mean Corpuscular Volume 97, Mean Corpuscular Hemoglobin 31.1H, Mean Corpuscular Hemoglobin Concent 32.2, Red Cell Distribution Width 17.3H, Platelet Count 35L, Mean Platelet Volume 12.2H, Neutrophils (%) (Auto) , Lymphocytes (%) (Auto) , Monocytes (%) (Auto) , Eosinophils (%) (Auto) , Basophils (%) (Auto) , Differential Total Cells Counted 100, Neutrophils % ( Manual) 81H, Lymphocytes % (Manual) 15L, Monocytes % (Manual) 2, Eosinophils % ( Manual) 2, Basophils % (Manual) 0, Band Neutrophils 0, Platelet Estimate DecreasedL, Platelet Morphology Normal, Hypochromasia 1+, Anisocytosis 1+, Haptoglobin [Pending], Sodium Level 148H, Potassium Level 2.8L, Chloride Level 112H, Carbon Dioxide Level 26, Anion Gap 10, Blood Urea Nitrogen 54H, Creatinine 4.3H, Estimat Glomerular Filtration Rate , Glucose Level 255H, Calcium Level 9.8 02/01/17 06:50: Fibrinogen 247 Height (Feet): 5 Height (Inches): 6.00 Weight (Pounds): 275 General Appearance: no apparent distress, lethargic Respiratory/Chest: decreased breath sounds Abdomen: distended Objective no other change ANDERS MOLINA Feb 01, 2017 10:29
[2017-02-01] MEDS: Colistin for inhalation INH SCH ×2 (10:36→22:56)
[2017-02-01] MEDS: DOPamine 400mg/250ml 250 ML IV SCH (11:07)
--- NOTE | 2017-02-01 11:50 | Pulmonolgy Critical Care Note ---
Critical Care - Asmt/Plan Assessment/Plan: ASSESSMENT Acute hypoxemic hypercapnic respiratory failure requiring intubation ARDS Severe sepsis Bacteremia /MRSA Septic shock-resolving HCAP with E coli ESBL UTI with Acinetobacter MDR, Pseudomonas, s/p Rx ARF on CKD, requiring HD ( started 01/28) Cirrhosis DURANT Elevated CEA positive heme occult elevated LFT AMS 2 to hepatic encephalopathy and sepsis Acute toxic metabolic encephalopathy 2 to sepsis, renal failure Thrombocytopenia anemia coagulopathy CHF with diastolic dysfunction DM Hypernatremia, resolved morbid obesity YELENA major depressive disorder PLAN OF CARE ICU care [facility] care pulmonary toilet not ready for weaning fup with daily CXR ABG , optimize settings as needed ABG this am with evidence of hypoxemia on FiO2 -50% titrate FiO2 to keep sat above 92% Abx ID follows s/p pressor for hemodynamic support Started on Midodrine, BP stable on HD, nephro follows, monitor closely renal parameters, lytes , lytes replacement in HD patient as per nephro Avoid nephrotoxic Monitor LFT, hep panel negative GI follows Elevated CEA, however recent EGD/colon negative stool OB + x 2 likely 2 to portal HTN gastropathy Strict aspiration precautions, GT feeding, monitor tolerance BS management with SS of insulin ECHO with EF 60-65% Monitor HH, PLT heme follows Psych follows, diagnosed with MDD , meds as per psych GI prophylaxis now DNR/DNI status overall prognosis poor case discussed and evaluated by supervising physician Critical Care - Objective Last 24 Hour Vital Signs Date Time Temp Pulse Resp B/P (MAP) Pulse Ox O2 Delivery O2 Flow Rate FiO2 02/01/17 11:07 132/53 02/01/17 11:00 67 20 132/53 100 Mechanical Ventilator 60 02/01/17 10:52 67 20 100 Mechanical Ventilator 60 02/01/17 10:52 60 02/01/17 10:38 67 20 100 Mechanical Ventilator 60 02/01/17 10:37 67 20 60 02/01/17 10:00 65 20 131/59 98 Mechanical Ventilator 60 02/01/17 09:00 68 20 126/48 97 Mechanical Ventilator 50 02/01/17 08:37 65 20 50 02/01/17 08:00 67 02/01/17 08:00 98.6 69 20 127/44 97 Mechanical Ventilator 50 02/01/17 08:00 50 02/01/17 07:18 69 21 50 02/01/17 07:00 70 20 126/43 95 Mechanical Ventilator 50 02/01/17 06:00 66 20 127/40 97 Mechanical Ventilator 50 02/01/17 05:17 69 20 50 02/01/17 05:00 70 20 125/43 97 Mechanical Ventilator 50 02/01/17 04:00 50 02/01/17 04:00 98.1 69 20 121/45 97 Mechanical Ventilator 50 02/01/17 03:01 69 02/01/17 03:00 66 20 127/45 97 Mechanical Ventilator 50 02/01/17 02:40 68 20 50 02/01/17 02:00 65 20 134/42 97 Mechanical Ventilator 50 02/01/17 01:00 67 20 125/41 97 Mechanical Ventilator 50 02/01/17 00:49 72 20 50 02/01/17 00:00 98.3 70 20 137/52 94 Mechanical Ventilator 50 02/01/17 00:00 50 01/31/17 23:28 69 20 50 01/31/17 23:03 69 01/31/17 23:00 66 20 135/48 95 Mechanical Ventilator 50 01/31/17 22:00 65 20 130/52 96 Mechanical Ventilator 50 01/31/17 21:15 69 20 99 Mechanical Ventilator 50 01/31/17 21:01 67 20 95 Mechanical Ventilator 50 01/31/17 21:01 50 01/31/17 21:00 67 20 123/48 96 Mechanical Ventilator 50 01/31/17 20:59 66 20 50 01/31/17 20:00 98.4 69 20 131/52 96 Mechanical Ventilator 50 01/31/17 20:00 50 01/31/17 19:37 68 01/31/17 19:00 66 20 129/55 95 Mechanical Ventilator 50 01/31/17 18:55 69 20 50 01/31/17 18:00 61 20 133/52 94 Mechanical Ventilator 50 01/31/17 17:05 63 20 50 01/31/17 17:00 70 20 140/51 96 Mechanical Ventilator 50 01/31/17 16:00 50 01/31/17 16:00 97.9 61 20 134/60 97 Mechanical Ventilator 50 01/31/17 16:00 61 01/31/17 15:05 64 20 50 01/31/17 15:00 62 20 135/52 96 Mechanical Ventilator 50 01/31/17 14:00 62 20 137/51 97 Mechanical Ventilator 50 01/31/17 13:05 63 20 50 01/31/17 13:00 67 20 145/55 96 Mechanical Ventilator 50 01/31/17 12:00 97.5 66 20 118/69 95 Mechanical Ventilator 50 01/31/17 12:00 70 01/31/17 12:00 50 Objective: Status: somnolent, other - morbidly obese bedridden female, intubated Condition: critical HEENT: atraumatic, normocephalic, OP with ET in place, intact Lungs: coarse BS Heart: HR/BP stable, regular - SR on tele Abdomen: soft - obese , non-tender, active bowel sounds, feeding tube Extremities: +1 edema BLE Micro: Microbiology Date/Time Source Procedure Growth Status 01/29/17 17:30 Stool Clostridium difficile Toxin Assay - Final Complete Accucheck: 248 Critical Care - Subjective Interval Events: remains intubated ABG with evidence of hypoxemia on FiO2 -50% BP stable Condition: critical IV Access: central - RIJ intact, EKG Rhythm: Sinus Rhythm FI02: 60 Vent Support Breath Rate: 20 Vent Support Mode: AC Vent Tidal Volume: 700 Sputum Amount: Moderate PEEP: 0.0 PIP: 50 Tube Feeding Amount: 20 I&O: Intake and Output 02/01/17 02/02/17 19:00 07:00 Intake Total 110 ml Output Total 2 ml Balance 108 ml Free Water 30 ml Tube Feeding 80 ml Output Urine Total 2 ml Stool Total 0 ml CXR: 02/01 -diffuse airspace and interstitial disease fairly extensive in degree demonstrated, right and left. Given differences in technique, there is no significant change from prior exam. Tubes and lines are stable. ET-Tube: 7.0 ET Position: 21 Gustavo ([facility] Hernandez NP Feb 01, 2017 11:50
--- NOTE | 2017-02-01 12:25 | Internal Med Progress Note ---
Subjective Date of Service: Feb 01, 2017 Physician Name Katharina Pond Attending Physician Rl Tee MD Current Medications Medications (Trade) Dose Ordered Sig/Pavel Route PRN Reason Start Time Stop Time Status Last Admin Dose Admin Acetaminophen (Tylenol) 650 mg Q4H PRN ORAL T>100.5 01/21/17 14:30 02/15/17 14:29 Albuterol/ Ipratropium (DuoNeb 0.5-3(2.5)mg/3ml) 3 ml Q4H PRN HHN Shortness of Breath 01/31/17 11:15 02/05/17 11:14 Chlorhexidine Gluconate (Dianne-Hex 2%) 1 applic DAILY@2000 TOPIC 01/25/17 20:00 02/24/17 19:59 01/31/17 19:58 Clotrimazole (Lotrimin) 1 applic EVERY 12 HOURS TOPIC 01/21/17 21:00 02/18/17 13:59 02/01/17 08:51 Colistimethate Sodium (Colistin *inhalation use only*) 75 mg Q12HRT INH 01/29/17 22:00 02/05/17 21:59 02/01/17 10:36 Dextrose (Dextrose 50%) STAT PRN IV Hypoglycemia 01/27/17 07:45 02/26/17 07:44 Dopamine HCl/ Dextrose 250 ml @ 0 mls/hr Q24H IV 01/25/17 11:15 02/24/17 11:14 01/30/17 10:30 Ertapenem 0.5 gm/ Sodium Chloride 55 ml @ 110 mls/hr Q24H IVPB 01/28/17 09:00 02/02/17 08:59 02/01/17 09:24 Erythromycin (Jaya-Ped) 200 mg Q6HR ORAL 01/31/17 13:00 03/02/17 12:59 02/01/17 11:46 Insulin Aspart (NovoLOG) EVERY 6 HOURS SUBQ 01/27/17 18:00 02/26/17 11:29 02/01/17 11:49 Lactulose (Cephulac) 10 gm BID ORAL 01/23/17 09:00 02/18/17 12:59 02/01/17 08:50 Metoclopramide HCl (Reglan) 5 mg Q8H PRN IVP Nausea & Vomiting 01/29/17 11:30 02/28/17 11:29 01/31/17 11:46 Midodrine (Pro-Amatine) 5 mg Q8HR NG 01/31/17 14:00 03/02/17 13:59 Nitroglycerin (Ntg) 0.4 mg Q5MIN X 3 DOSES PRN SL Prn Chest Pain 01/21/17 14:30 02/15/17 14:29 Nystatin (Nystop Powder) 1 applic THREE TIMES A DAY TOPIC 01/22/17 13:00 02/21/17 12:59 02/01/17 08:51 Pantoprazole (Protonix) 40 mg EVERY 12 HOURS IVP 01/21/17 21:00 02/20/17 20:59 02/01/17 08:50 Polyethylene Glycol (Miralax) 17 gm DAILYPRN PRN ORAL Constipation 01/21/17 14:00 02/17/17 13:59 Potassium Chloride (KCl 10% 40mEq Oral solution) 40 meq TWICE A DAY NG 02/01/17 09:45 03/03/17 09:44 02/01/17 10:04 Rifaximin (Xifaxan) 550 mg EVERY 12 HOURS ORAL 01/29/17 12:00 02/05/17 11:59 02/01/17 08:50 Vancomycin HCl (Vanco rx to dose) 1 ea DAILY PRN MISC Per rx protocol 01/22/17 09:00 02/18/17 11:44 Allergies: Coded Allergies: PENICILLINS (Unverified Allergy, Unknown, 03/22/15) ROS Limited/Unobtainable: Yes Subjective 76 YO F admitted with altered mental status. Intubated and sedated. ICU . Cover for Int Nishant-Dr Tee. Objective Last Vital Signs Date Time Temp Pulse Resp B/P (MAP) Pulse Ox O2 Delivery O2 Flow Rate FiO2 02/01/17 12:00 98.6 64 20 129/51 100 Mechanical Ventilator 60 01/30/17 09:12 15.0 Laboratory Tests Test 02/01/17 04:00 02/01/17 05:25 02/01/17 06:50 Arterial Blood pH 7.474 (7.350-7.450) Arterial Blood Partial Pressure CO2 31.7 mmHg (35.0-45.0) L Arterial Blood Partial Pressure O2 57.3 mmHg (75.0-100.0) L Arterial Blood HCO3 22.9 mmol/L (22.0-26.0) Arterial Blood Oxygen Saturation 89.4 % (92.0-98.0) L Arterial Blood Base Excess -0.4 Bon Test Positive White Blood Count 10.3 K/UL (4.8-10.8) Red Blood Count 2.77 M/UL (4.20-5.40) L Hemoglobin 8.6 G/DL (12.0-16.0) L Hematocrit 26.8 % (37.0-47.0) L Mean Corpuscular Volume 97 FL (80-99) Mean Corpuscular Hemoglobin 31.1 PG (27.0-31.0) H Mean Corpuscular Hemoglobin Concent 32.2 G/DL (32.0-36.0) Red Cell Distribution Width 17.3 % (11.6-14.8) H Platelet Count 35 K/UL (150-450) L Mean Platelet Volume 12.2 FL (6.5-10.1) H Neutrophils (%) (Auto) % (45.0-75.0) Lymphocytes (%) (Auto) % (20.0-45.0) Monocytes (%) (Auto) % (1.0-10.0) Eosinophils (%) (Auto) % (0.0-3.0) Basophils (%) (Auto) % (0.0-2.0) Differential Total Cells Counted 100 Neutrophils % (Manual) 81 % (45-75) H Lymphocytes % (Manual) 15 % (20-45) L Monocytes % (Manual) 2 % (1-10) Eosinophils % (Manual) 2 % (0-3) Basophils % (Manual) 0 % (0-2) Band Neutrophils 0 % (0-8) Platelet Estimate Decreased L Platelet Morphology Normal Hypochromasia 1+ Anisocytosis 1+ Haptoglobin Pending Sodium Level 148 MMOL/L (136-145) H Potassium Level 2.8 MMOL/L (3.5-5.1) L Chloride Level 112 MMOL/L (98-107) H Carbon Dioxide Level 26 MMOL/L (21-32) Anion Gap 10 (5-15) Blood Urea Nitrogen 54 mg/dL (7-18) H Creatinine 4.3 MG/DL (0.55-1.30) H Estimat Glomerular Filtration Rate mL/min (>60) Glucose Level 255 MG/DL (74-106) H Calcium Level 9.8 MG/DL (8.5-10.1) Fibrinogen 247 mg/dL (200-400) Microbiology Date/Time Source Procedure Growth Status 01/29/17 17:30 Stool Clostridium difficile Toxin Assay - Final Complete Intake and Output 02/01/17 02/02/17 19:00 07:00 Intake Total 160 ml Output Total 2 ml Balance 158 ml Free Water 60 ml Tube Feeding 100 ml Output Urine Total 2 ml Stool Total 0 ml Objective General Appearance: WD/WN, no apparent distress, moderate distress, obese EENT: PERRL/EOMI, normal ENT inspection Neck: non-tender, normal alignment, supple, normal inspection Cardiovascular: normal peripheral pulses, normal rate, regular rhythm, no gallop/murmur, no JVD Respiratory/Chest: Mechanical vent; chest wall non-tender, lungs with coarse upper air sounds, Bilat wheezes and rales, respiratory distress Abdomen: G-Tube; non tender, no organomegaly, no mass Neurologic: fruit trimmer 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 Baumanii. See ID note. Continur ertaoenem and vanco per ID (2) CHF (congestive heart failure) Assessment & Plan: LVEF 60-65%. see cardiology note. (3) DM (diabetes mellitus) Assessment & Plan: Continue novolog sliding scale (4) Hypercholesteremia (5) HTN (hypertension) Assessment & Plan: Currently hypotensive. (6) Uncontrolled diabetes mellitus (7) Cirrhosis Assessment & Plan: see GI note. (8) Anemia Assessment & Plan: S/P transfusion 2 units PRBC (9) Altered mental status Assessment & Plan: Worsening. ICU status (10) Renal failure Assessment & Plan: Next hemodialysis 02/02/17. See nephrology note. (11) Respiratory failure Assessment & Plan: Due to CHF. Cont mech vent per pulmonary. Continue antibiotic per ID (12) Bradycardia Assessment & Plan: see cardiology note. (13) Hypotension Assessment & Plan: Continue dopamine Status: not improved KATHARINA POND Feb 01, 2017 12:25
--- NOTE | 2017-02-01 18:31 | General Progress Note ---
Assessment/Plan Problem List: (1) Cirrhosis ICD Codes: K74.60 - Unspecified cirrhosis of liver SNOMED: 51396406 (2) Diabetes mellitus, type II ICD Codes: E11.9 - Type 2 diabetes mellitus without complications SNOMED: 31895139 (3) GERD (gastroesophageal reflux disease) ICD Codes: K21.9 - Gastro-esophageal reflux disease without esophagitis SNOMED: 688186500 (4) Elevated CEA ICD Codes: R97.0 - Elevated carcinoembryonic antigen [CEA] SNOMED: 71334280, 939207701 (5) Elevated liver enzymes ICD Codes: R74.8 - Abnormal levels of other serum enzymes SNOMED: 607501718, 980537308 (6) Dysphagia ICD Codes: R13.10 - Dysphagia, unspecified SNOMED: 39857728, 319821407 (7) Renal failure ICD Codes: N19 - Unspecified kidney failure SNOMED: 54849330 Assessment/Plan change GTf back to cont cont reglan add erythromycin monitor residuals GTF tolerated better with above changes increase rate to 30 Subjective ROS Limited/Unobtainable: No Allergies: Coded Allergies: PENICILLINS (Unverified Allergy, Unknown, 03/22/15) Objective Last 24 Hour Vital Signs Date Time Temp Pulse Resp B/P (MAP) Pulse Ox O2 Delivery O2 Flow Rate FiO2 02/01/17 18:00 82 20 124/51 95 Mechanical Ventilator 60 02/01/17 17:00 63 20 120/44 99 Mechanical Ventilator 60 02/01/17 16:36 65 20 60 02/01/17 16:00 60 02/01/17 16:00 64 02/01/17 16:00 98.7 64 20 124/50 100 Mechanical Ventilator 60 02/01/17 15:23 61 20 60 02/01/17 15:00 65 20 123/48 100 Mechanical Ventilator 60 02/01/17 14:00 65 20 116/55 100 Mechanical Ventilator 60 02/01/17 13:30 63 20 60 02/01/17 13:00 64 20 126/51 100 Mechanical Ventilator 60 02/01/17 12:00 98.6 64 20 129/51 100 Mechanical Ventilator 60 02/01/17 12:00 67 02/01/17 12:00 60 02/01/17 11:07 132/53 02/01/17 11:00 67 20 132/53 100 Mechanical Ventilator 60 02/01/17 10:52 67 20 100 Mechanical Ventilator 60 02/01/17 10:52 60 02/01/17 10:38 67 20 100 Mechanical Ventilator 60 02/01/17 10:37 67 20 60 02/01/17 10:00 65 20 131/59 98 Mechanical Ventilator 60 02/01/17 09:00 68 20 126/48 97 Mechanical Ventilator 50 02/01/17 08:37 65 20 50 02/01/17 08:00 67 02/01/17 08:00 98.6 69 20 127/44 97 Mechanical Ventilator 50 02/01/17 08:00 50 02/01/17 07:18 69 21 50 02/01/17 07:00 70 20 126/43 95 Mechanical Ventilator 50 02/01/17 06:00 66 20 127/40 97 Mechanical Ventilator 50 02/01/17 05:17 69 20 50 02/01/17 05:00 70 20 125/43 97 Mechanical Ventilator 50 02/01/17 04:00 50 02/01/17 04:00 98.1 69 20 121/45 97 Mechanical Ventilator 50 02/01/17 03:01 69 02/01/17 03:00 66 20 127/45 97 Mechanical Ventilator 50 02/01/17 02:40 68 20 50 02/01/17 02:00 65 20 134/42 97 Mechanical Ventilator 50 02/01/17 01:00 67 20 125/41 97 Mechanical Ventilator 50 02/01/17 00:49 72 20 50 02/01/17 00:00 98.3 70 20 137/52 94 Mechanical Ventilator 50 02/01/17 00:00 50 01/31/17 23:28 69 20 50 01/31/17 23:03 69 01/31/17 23:00 66 20 135/48 95 Mechanical Ventilator 50 01/31/17 22:00 65 20 130/52 96 Mechanical Ventilator 50 01/31/17 21:15 69 20 99 Mechanical Ventilator 50 01/31/17 21:01 67 20 95 Mechanical Ventilator 50 01/31/17 21:01 50 01/31/17 21:00 67 20 123/48 96 Mechanical Ventilator 50 01/31/17 20:59 66 20 50 01/31/17 20:00 98.4 69 20 131/52 96 Mechanical Ventilator 50 01/31/17 20:00 50 01/31/17 19:37 68 10/14/17 19:00 66 20 129/55 95 Mechanical Ventilator 50 01/31/17 18:55 69 20 50 Intake and Output 02/01/17 02/02/17 19:00 07:00 Intake Total 370 ml Output Total 274 ml Balance 96 ml Free Water 60 ml IV Total 110 ml Tube Feeding 200 ml Output Urine Total 24 ml Stool Total 250 ml Laboratory Tests 02/01/17 04:00: Arterial Blood pH 7.474H, Arterial Blood Partial Pressure CO2 31.7L, Arterial Blood Partial Pressure O2 57.3L, Arterial Blood HCO3 22.9, Arterial Blood Oxygen Saturation 89.4L, Arterial Blood Base Excess -0.4, Bon Test Positive 02/01/17 05:25: White Blood Count 10.3, Red Blood Count 2.77L, Hemoglobin 8.6L, Hematocrit 26.8L , Mean Corpuscular Volume 97, Mean Corpuscular Hemoglobin 31.1H, Mean Corpuscular Hemoglobin Concent 32.2, Red Cell Distribution Width 17.3H, Platelet Count 35L, Mean Platelet Volume 12.2H, Neutrophils (%) (Auto) , Lymphocytes (%) (Auto) , Monocytes (%) (Auto) , Eosinophils (%) (Auto) , Basophils (%) (Auto) , Differential Total Cells Counted 100, Neutrophils % ( Manual) 81H, Lymphocytes % (Manual) 15L, Monocytes % (Manual) 2, Eosinophils % ( Manual) 2, Basophils % (Manual) 0, Band Neutrophils 0, Platelet Estimate DecreasedL, Platelet Morphology Normal, Hypochromasia 1+, Anisocytosis 1+, Haptoglobin [Pending], Sodium Level 148H, Potassium Level 2.8L, Chloride Level 112H, Carbon Dioxide Level 26, Anion Gap 10, Blood Urea Nitrogen 54H, Creatinine 4.3H, Estimat Glomerular Filtration Rate , Glucose Level 255H, Calcium Level 9.8 02/01/17 06:50: Fibrinogen 247 Height (Feet): 5 Height (Inches): 6.00 Weight (Pounds): 275 General Appearance: lethargic EENT: normal ENT inspection Neck: supple Cardiovascular: normal rate Respiratory/Chest: decreased breath sounds Abdomen: non tender, soft, decreased bowel sounds Edema: 2+ Leg (L), 2+ Leg (R) AUGUSTINA BANEGAS Feb 01, 2017 18:31
--- NOTE | 2017-02-01 18:31 | General Progress Note ---
Assessment/Plan Problem List: (1) Cirrhosis ICD Codes: K74.60 - Unspecified cirrhosis of liver SNOMED: 84419942 (2) Diabetes mellitus, type II ICD Codes: E11.9 - Type 2 diabetes mellitus without complications SNOMED: 50235238 (3) GERD (gastroesophageal reflux disease) ICD Codes: K21.9 - Gastro-esophageal reflux disease without esophagitis SNOMED: 823586891 (4) Elevated CEA ICD Codes: R97.0 - Elevated carcinoembryonic antigen [CEA] SNOMED: 28629328, 699269032 (5) Elevated liver enzymes ICD Codes: R74.8 - Abnormal levels of other serum enzymes SNOMED: 506599106, 917118116 (6) Dysphagia ICD Codes: R13.10 - Dysphagia, unspecified SNOMED: 91277217, 943239441 (7) Renal failure ICD Codes: N19 - Unspecified kidney failure SNOMED: 93296252 Assessment/Plan change GTf back to cont cont reglan add erythromycin monitor residuals GTF tolerated better with above changes increase rate to 30 Subjective ROS Limited/Unobtainable: No Allergies: Coded Allergies: PENICILLINS (Unverified Allergy, Unknown, 03/22/15) Objective Last 24 Hour Vital Signs Date Time Temp Pulse Resp B/P (MAP) Pulse Ox O2 Delivery O2 Flow Rate FiO2 02/01/17 18:00 82 20 124/51 95 Mechanical Ventilator 60 02/01/17 17:00 63 20 120/44 99 Mechanical Ventilator 60 02/01/17 16:36 65 20 60 02/01/17 16:00 60 02/01/17 16:00 64 02/01/17 16:00 98.7 64 20 124/50 100 Mechanical Ventilator 60 02/01/17 15:23 61 20 60 02/01/17 15:00 65 20 123/48 100 Mechanical Ventilator 60 02/01/17 14:00 65 20 116/55 100 Mechanical Ventilator 60 02/01/17 13:30 63 20 60 02/01/17 13:00 64 20 126/51 100 Mechanical Ventilator 60 02/01/17 12:00 98.6 64 20 129/51 100 Mechanical Ventilator 60 02/01/17 12:00 67 02/01/17 12:00 60 02/01/17 11:07 132/53 02/01/17 11:00 67 20 132/53 100 Mechanical Ventilator 60 02/01/17 10:52 67 20 100 Mechanical Ventilator 60 02/01/17 10:52 60 02/01/17 10:38 67 20 100 Mechanical Ventilator 60 02/01/17 10:37 67 20 60 02/01/17 10:00 65 20 131/59 98 Mechanical Ventilator 60 02/01/17 09:00 68 20 126/48 97 Mechanical Ventilator 50 02/01/17 08:37 65 20 50 02/01/17 08:00 67 02/01/17 08:00 98.6 69 20 127/44 97 Mechanical Ventilator 50 02/01/17 08:00 50 02/01/17 07:18 69 21 50 02/01/17 07:00 70 20 126/43 95 Mechanical Ventilator 50 02/01/17 06:00 66 20 127/40 97 Mechanical Ventilator 50 02/01/17 05:17 69 20 50 02/01/17 05:00 70 20 125/43 97 Mechanical Ventilator 50 02/01/17 04:00 50 02/01/17 04:00 98.1 69 20 121/45 97 Mechanical Ventilator 50 02/01/17 03:01 69 02/01/17 03:00 66 20 127/45 97 Mechanical Ventilator 50 02/01/17 02:40 68 20 50 02/01/17 02:00 65 20 134/42 97 Mechanical Ventilator 50 02/01/17 01:00 67 20 125/41 97 Mechanical Ventilator 50 02/01/17 00:49 72 20 50 02/01/17 00:00 98.3 70 20 137/52 94 Mechanical Ventilator 50 02/01/17 00:00 50 01/31/17 23:28 69 20 50 01/31/17 23:03 69 01/31/17 23:00 66 20 135/48 95 Mechanical Ventilator 50 01/31/17 22:00 65 20 130/52 96 Mechanical Ventilator 50 01/31/17 21:15 69 20 99 Mechanical Ventilator 50 01/31/17 21:01 67 20 95 Mechanical Ventilator 50 01/31/17 21:01 50 01/31/17 21:00 67 20 123/48 96 Mechanical Ventilator 50 01/31/17 20:59 66 20 50 01/31/17 20:00 98.4 69 20 131/52 96 Mechanical Ventilator 50 01/31/17 20:00 50 01/31/17 19:37 68 10/14/17 19:00 66 20 129/55 95 Mechanical Ventilator 50 01/31/17 18:55 69 20 50 Intake and Output 02/01/17 02/02/17 19:00 07:00 Intake Total 370 ml Output Total 274 ml Balance 96 ml Free Water 60 ml IV Total 110 ml Tube Feeding 200 ml Output Urine Total 24 ml Stool Total 250 ml Laboratory Tests 02/01/17 04:00: Arterial Blood pH 7.474H, Arterial Blood Partial Pressure CO2 31.7L, Arterial Blood Partial Pressure O2 57.3L, Arterial Blood HCO3 22.9, Arterial Blood Oxygen Saturation 89.4L, Arterial Blood Base Excess -0.4, Bon Test Positive 02/01/17 05:25: White Blood Count 10.3, Red Blood Count 2.77L, Hemoglobin 8.6L, Hematocrit 26.8L , Mean Corpuscular Volume 97, Mean Corpuscular Hemoglobin 31.1H, Mean Corpuscular Hemoglobin Concent 32.2, Red Cell Distribution Width 17.3H, Platelet Count 35L, Mean Platelet Volume 12.2H, Neutrophils (%) (Auto) , Lymphocytes (%) (Auto) , Monocytes (%) (Auto) , Eosinophils (%) (Auto) , Basophils (%) (Auto) , Differential Total Cells Counted 100, Neutrophils % ( Manual) 81H, Lymphocytes % (Manual) 15L, Monocytes % (Manual) 2, Eosinophils % ( Manual) 2, Basophils % (Manual) 0, Band Neutrophils 0, Platelet Estimate DecreasedL, Platelet Morphology Normal, Hypochromasia 1+, Anisocytosis 1+, Haptoglobin [Pending], Sodium Level 148H, Potassium Level 2.8L, Chloride Level 112H, Carbon Dioxide Level 26, Anion Gap 10, Blood Urea Nitrogen 54H, Creatinine 4.3H, Estimat Glomerular Filtration Rate , Glucose Level 255H, Calcium Level 9.8 02/01/17 06:50: Fibrinogen 247 Height (Feet): 5 Height (Inches): 6.00 Weight (Pounds): 275 General Appearance: lethargic EENT: normal ENT inspection Neck: supple Cardiovascular: normal rate Respiratory/Chest: decreased breath sounds Abdomen: non tender, soft, decreased bowel sounds Edema: 2+ Leg (L), 2+ Leg (R) AUGUSTINA BANEGAS Feb 01, 2017 18:31
--- NOTE | 2017-02-01 18:31 | General Progress Note ---
Assessment/Plan Problem List: (1) Cirrhosis ICD Codes: K74.60 - Unspecified cirrhosis of liver SNOMED: 87946479 (2) Diabetes mellitus, type II ICD Codes: E11.9 - Type 2 diabetes mellitus without complications SNOMED: 08497689 (3) GERD (gastroesophageal reflux disease) ICD Codes: K21.9 - Gastro-esophageal reflux disease without esophagitis SNOMED: 376505659 (4) Elevated CEA ICD Codes: R97.0 - Elevated carcinoembryonic antigen [CEA] SNOMED: 29848157, 279993179 (5) Elevated liver enzymes ICD Codes: R74.8 - Abnormal levels of other serum enzymes SNOMED: 627393041, 061744666 (6) Dysphagia ICD Codes: R13.10 - Dysphagia, unspecified SNOMED: 20465910, 785057359 (7) Renal failure ICD Codes: N19 - Unspecified kidney failure SNOMED: 31922350 Assessment/Plan change GTf back to cont cont reglan add erythromycin monitor residuals GTF tolerated better with above changes increase rate to 30 Subjective ROS Limited/Unobtainable: No Allergies: Coded Allergies: PENICILLINS (Unverified Allergy, Unknown, 03/22/15) Objective Last 24 Hour Vital Signs Date Time Temp Pulse Resp B/P (MAP) Pulse Ox O2 Delivery O2 Flow Rate FiO2 02/01/17 18:00 82 20 124/51 95 Mechanical Ventilator 60 02/01/17 17:00 63 20 120/44 99 Mechanical Ventilator 60 02/01/17 16:36 65 20 60 02/01/17 16:00 60 02/01/17 16:00 64 02/01/17 16:00 98.7 64 20 124/50 100 Mechanical Ventilator 60 02/01/17 15:23 61 20 60 02/01/17 15:00 65 20 123/48 100 Mechanical Ventilator 60 02/01/17 14:00 65 20 116/55 100 Mechanical Ventilator 60 02/01/17 13:30 63 20 60 02/01/17 13:00 64 20 126/51 100 Mechanical Ventilator 60 02/01/17 12:00 98.6 64 20 129/51 100 Mechanical Ventilator 60 02/01/17 12:00 67 02/01/17 12:00 60 02/01/17 11:07 132/53 02/01/17 11:00 67 20 132/53 100 Mechanical Ventilator 60 02/01/17 10:52 67 20 100 Mechanical Ventilator 60 02/01/17 10:52 60 02/01/17 10:38 67 20 100 Mechanical Ventilator 60 02/01/17 10:37 67 20 60 02/01/17 10:00 65 20 131/59 98 Mechanical Ventilator 60 02/01/17 09:00 68 20 126/48 97 Mechanical Ventilator 50 02/01/17 08:37 65 20 50 02/01/17 08:00 67 02/01/17 08:00 98.6 69 20 127/44 97 Mechanical Ventilator 50 02/01/17 08:00 50 02/01/17 07:18 69 21 50 02/01/17 07:00 70 20 126/43 95 Mechanical Ventilator 50 02/01/17 06:00 66 20 127/40 97 Mechanical Ventilator 50 02/01/17 05:17 69 20 50 02/01/17 05:00 70 20 125/43 97 Mechanical Ventilator 50 02/01/17 04:00 50 02/01/17 04:00 98.1 69 20 121/45 97 Mechanical Ventilator 50 02/01/17 03:01 69 02/01/17 03:00 66 20 127/45 97 Mechanical Ventilator 50 02/01/17 02:40 68 20 50 02/01/17 02:00 65 20 134/42 97 Mechanical Ventilator 50 02/01/17 01:00 67 20 125/41 97 Mechanical Ventilator 50 02/01/17 00:49 72 20 50 02/01/17 00:00 98.3 70 20 137/52 94 Mechanical Ventilator 50 02/01/17 00:00 50 01/31/17 23:28 69 20 50 01/31/17 23:03 69 01/31/17 23:00 66 20 135/48 95 Mechanical Ventilator 50 01/31/17 22:00 65 20 130/52 96 Mechanical Ventilator 50 01/31/17 21:15 69 20 99 Mechanical Ventilator 50 01/31/17 21:01 67 20 95 Mechanical Ventilator 50 01/31/17 21:01 50 01/31/17 21:00 67 20 123/48 96 Mechanical Ventilator 50 01/31/17 20:59 66 20 50 01/31/17 20:00 98.4 69 20 131/52 96 Mechanical Ventilator 50 01/31/17 20:00 50 01/31/17 19:37 68 10/14/17 19:00 66 20 129/55 95 Mechanical Ventilator 50 01/31/17 18:55 69 20 50 Intake and Output 02/01/17 02/02/17 19:00 07:00 Intake Total 370 ml Output Total 274 ml Balance 96 ml Free Water 60 ml IV Total 110 ml Tube Feeding 200 ml Output Urine Total 24 ml Stool Total 250 ml Laboratory Tests 02/01/17 04:00: Arterial Blood pH 7.474H, Arterial Blood Partial Pressure CO2 31.7L, Arterial Blood Partial Pressure O2 57.3L, Arterial Blood HCO3 22.9, Arterial Blood Oxygen Saturation 89.4L, Arterial Blood Base Excess -0.4, Bon Test Positive 02/01/17 05:25: White Blood Count 10.3, Red Blood Count 2.77L, Hemoglobin 8.6L, Hematocrit 26.8L , Mean Corpuscular Volume 97, Mean Corpuscular Hemoglobin 31.1H, Mean Corpuscular Hemoglobin Concent 32.2, Red Cell Distribution Width 17.3H, Platelet Count 35L, Mean Platelet Volume 12.2H, Neutrophils (%) (Auto) , Lymphocytes (%) (Auto) , Monocytes (%) (Auto) , Eosinophils (%) (Auto) , Basophils (%) (Auto) , Differential Total Cells Counted 100, Neutrophils % ( Manual) 81H, Lymphocytes % (Manual) 15L, Monocytes % (Manual) 2, Eosinophils % ( Manual) 2, Basophils % (Manual) 0, Band Neutrophils 0, Platelet Estimate DecreasedL, Platelet Morphology Normal, Hypochromasia 1+, Anisocytosis 1+, Haptoglobin [Pending], Sodium Level 148H, Potassium Level 2.8L, Chloride Level 112H, Carbon Dioxide Level 26, Anion Gap 10, Blood Urea Nitrogen 54H, Creatinine 4.3H, Estimat Glomerular Filtration Rate , Glucose Level 255H, Calcium Level 9.8 02/01/17 06:50: Fibrinogen 247 Height (Feet): 5 Height (Inches): 6.00 Weight (Pounds): 275 General Appearance: lethargic EENT: normal ENT inspection Neck: supple Cardiovascular: normal rate Respiratory/Chest: decreased breath sounds Abdomen: non tender, soft, decreased bowel sounds Edema: 2+ Leg (L), 2+ Leg (R) AUGUSTINA BANEGAS Feb 01, 2017 18:31
--- NOTE | 2017-02-01 18:54 | General Progress Note ---
Assessment/Plan Status: unchanged Assessment/Plan encephalopathy Subjective Allergies: Coded Allergies: PENICILLINS (Unverified Allergy, Unknown, 03/22/15) Subjective waxing and waning of consciousness. decrease anxiety Objective Last 24 Hour Vital Signs Date Time Temp Pulse Resp B/P (MAP) Pulse Ox O2 Delivery O2 Flow Rate FiO2 02/01/17 18:00 82 20 124/51 95 Mechanical Ventilator 60 02/01/17 17:00 63 20 120/44 99 Mechanical Ventilator 60 02/01/17 16:36 65 20 60 02/01/17 16:00 60 02/01/17 16:00 64 02/01/17 16:00 98.7 64 20 124/50 100 Mechanical Ventilator 60 02/01/17 15:23 61 20 60 02/01/17 15:00 65 20 123/48 100 Mechanical Ventilator 60 02/01/17 14:00 65 20 116/55 100 Mechanical Ventilator 60 02/01/17 13:30 63 20 60 02/01/17 13:00 64 20 126/51 100 Mechanical Ventilator 60 02/01/17 12:00 98.6 64 20 129/51 100 Mechanical Ventilator 60 02/01/17 12:00 67 02/01/17 12:00 60 02/01/17 11:07 132/53 02/01/17 11:00 67 20 132/53 100 Mechanical Ventilator 60 02/01/17 10:52 67 20 100 Mechanical Ventilator 60 02/01/17 10:52 60 02/01/17 10:38 67 20 100 Mechanical Ventilator 60 02/01/17 10:37 67 20 60 02/01/17 10:00 65 20 131/59 98 Mechanical Ventilator 60 02/01/17 09:00 68 20 126/48 97 Mechanical Ventilator 50 02/01/17 08:37 65 20 50 02/01/17 08:00 67 02/01/17 08:00 98.6 69 20 127/44 97 Mechanical Ventilator 50 02/01/17 08:00 50 02/01/17 07:18 69 21 50 02/01/17 07:00 70 20 126/43 95 Mechanical Ventilator 50 02/01/17 06:00 66 20 127/40 97 Mechanical Ventilator 50 02/01/17 05:17 69 20 50 02/01/17 05:00 70 20 125/43 97 Mechanical Ventilator 50 02/01/17 04:00 50 02/01/17 04:00 98.1 69 20 121/45 97 Mechanical Ventilator 50 02/01/17 03:01 69 02/01/17 03:00 66 20 127/45 97 Mechanical Ventilator 50 02/01/17 02:40 68 20 50 02/01/17 02:00 65 20 134/42 97 Mechanical Ventilator 50 02/01/17 01:00 67 20 125/41 97 Mechanical Ventilator 50 02/01/17 00:49 72 20 50 02/01/17 00:00 98.3 70 20 137/52 94 Mechanical Ventilator 50 02/01/17 00:00 50 01/31/17 23:28 69 20 50 01/31/17 23:03 69 01/31/17 23:00 66 20 135/48 95 Mechanical Ventilator 50 01/31/17 22:00 65 20 130/52 96 Mechanical Ventilator 50 01/31/17 21:15 69 20 99 Mechanical Ventilator 50 01/31/17 21:01 67 20 95 Mechanical Ventilator 50 01/31/17 21:01 50 01/31/17 21:00 67 20 123/48 96 Mechanical Ventilator 50 01/31/17 20:59 66 20 50 01/31/17 20:00 98.4 69 20 131/52 96 Mechanical Ventilator 50 01/31/17 20:00 50 01/31/17 19:37 68 01/31/17 19:00 66 20 129/55 95 Mechanical Ventilator 50 01/31/17 18:55 69 20 50 Intake and Output 02/01/17 02/02/17 19:00 07:00 Intake Total 420 ml Output Total 474 ml Balance -54 ml Free Water 60 ml IV Total 110 ml Tube Feeding 220 ml Other 30 ml Output Urine Total 24 ml Stool Total 450 ml Laboratory Tests 02/01/17 04:00: Arterial Blood pH 7.474H, Arterial Blood Partial Pressure CO2 31.7L, Arterial Blood Partial Pressure O2 57.3L, Arterial Blood HCO3 22.9, Arterial Blood Oxygen Saturation 89.4L, Arterial Blood Base Excess -0.4, Bon Test Positive 02/01/17 05:25: White Blood Count 10.3, Red Blood Count 2.77L, Hemoglobin 8.6L, Hematocrit 26.8L , Mean Corpuscular Volume 97, Mean Corpuscular Hemoglobin 31.1H, Mean Corpuscular Hemoglobin Concent 32.2, Red Cell Distribution Width 17.3H, Platelet Count 35L, Mean Platelet Volume 12.2H, Neutrophils (%) (Auto) , Lymphocytes (%) (Auto) , Monocytes (%) (Auto) , Eosinophils (%) (Auto) , Basophils (%) (Auto) , Differential Total Cells Counted 100, Neutrophils % ( Manual) 81H, Lymphocytes % (Manual) 15L, Monocytes % (Manual) 2, Eosinophils % ( Manual) 2, Basophils % (Manual) 0, Band Neutrophils 0, Platelet Estimate DecreasedL, Platelet Morphology Normal, Hypochromasia 1+, Anisocytosis 1+, Haptoglobin [Pending], Sodium Level 148H, Potassium Level 2.8L, Chloride Level 112H, Carbon Dioxide Level 26, Anion Gap 10, Blood Urea Nitrogen 54H, Creatinine 4.3H, Estimat Glomerular Filtration Rate , Glucose Level 255H, Calcium Level 9.8 02/01/17 06:50: Fibrinogen 247 Height (Feet): 5 Height (Inches): 6.00 Weight (Pounds): 275 General Appearance: no apparent distress, lethargic, agitated, morbidly obese Neurologic: disoriented, unresponsive Oj Medel M.D. Feb 01, 2017 18:54
[2017-02-01] MEDS: Dyna-Hex 2% Top Sol 2oz TOPIC SCH (19:41)
--- NOTE | 2017-02-01 21:40 | General Progress Note ---
Assessment/Plan Assessment/Plan ASSESSMENT AND RECOMMENDATIONS 1.Thrombocytopenia 2/2 sepsis --> give plts if below 10k or if below 20k and febrile --> ID following 2. Coagulopathy secondary to underlying liver cirrhosis 3. Thrombocytopenia secondary to underlying splenomegaly. 4. Anemia 2/2 chronic disease --> s/p transfusion --> Watch HH, transfuse if below 8 5. Leukocytosis secondary to underlying infection. On abx per id service 6. Sepsis 2/2 UTI 7. Altered mental status 8. RAMYA on CKD, is to receive hemodialysis Subjective Constitutional: Reports: no symptoms HEENT: Reports: no symptoms Cardiovascular: Reports: no symptoms Respiratory: Reports: no symptoms Gastrointestinal/Abdominal: Reports: no symptoms Genitourinary: Reports: no symptoms Neurologic/Psychiatric: Reports: no symptoms Endocrine: Reports: no symptoms Hematologic/Lymphatic: Reports: no symptoms Allergies: Coded Allergies: PENICILLINS (Unverified Allergy, Unknown, 03/22/15) Subjective NAD Objective Last 24 Hour Vital Signs Date Time Temp Pulse Resp B/P (MAP) Pulse Ox O2 Delivery O2 Flow Rate FiO2 02/01/17 19:30 80 21 60 02/01/17 19:00 80 20 122/51 97 Mechanical Ventilator 60 02/01/17 18:00 82 20 124/51 95 Mechanical Ventilator 60 02/01/17 17:00 63 20 120/44 99 Mechanical Ventilator 60 02/01/17 16:36 65 20 60 02/01/17 16:00 60 02/01/17 16:00 64 02/01/17 16:00 98.7 64 20 124/50 100 Mechanical Ventilator 60 02/01/17 15:23 61 20 60 02/01/17 15:00 65 20 123/48 100 Mechanical Ventilator 60 02/01/17 14:00 65 20 116/55 100 Mechanical Ventilator 60 02/01/17 13:30 63 20 60 02/01/17 13:00 64 20 126/51 100 Mechanical Ventilator 60 02/01/17 12:00 98.6 64 20 129/51 100 Mechanical Ventilator 60 02/01/17 12:00 67 02/01/17 12:00 60 02/01/17 11:07 132/53 02/01/17 11:00 67 20 132/53 100 Mechanical Ventilator 60 02/01/17 10:52 67 20 100 Mechanical Ventilator 60 02/01/17 10:52 60 02/01/17 10:38 67 20 100 Mechanical Ventilator 60 02/01/17 10:37 67 20 60 02/01/17 10:00 65 20 131/59 98 Mechanical Ventilator 60 02/01/17 09:00 68 20 126/48 97 Mechanical Ventilator 50 02/01/17 08:37 65 20 50 02/01/17 08:00 67 02/01/17 08:00 98.6 69 20 127/44 97 Mechanical Ventilator 50 02/01/17 08:00 50 02/01/17 07:18 69 21 50 02/01/17 07:00 70 20 126/43 95 Mechanical Ventilator 50 02/01/17 06:00 66 20 127/40 97 Mechanical Ventilator 50 02/01/17 05:17 69 20 50 02/01/17 05:00 70 20 125/43 97 Mechanical Ventilator 50 02/01/17 04:00 50 02/01/17 04:00 98.1 69 20 121/45 97 Mechanical Ventilator 50 02/01/17 03:01 69 02/01/17 03:00 66 20 127/45 97 Mechanical Ventilator 50 02/01/17 02:40 68 20 50 02/01/17 02:00 65 20 134/42 97 Mechanical Ventilator 50 02/01/17 01:00 67 20 125/41 97 Mechanical Ventilator 50 02/01/17 00:49 72 20 50 02/01/17 00:00 98.3 70 20 137/52 94 Mechanical Ventilator 50 02/01/17 00:00 50 01/31/17 23:28 69 20 50 01/31/17 23:03 69 01/31/17 23:00 66 20 135/48 95 Mechanical Ventilator 50 01/31/17 22:00 65 20 130/52 96 Mechanical Ventilator 50 01/31/17 21:15 69 20 99 Mechanical Ventilator 50 Intake and Output 02/01/17 02/02/17 19:00 07:00 Intake Total 440 ml Output Total 474 ml Balance -34 ml Free Water 60 ml IV Total 110 ml Tube Feeding 240 ml Other 30 ml Output Urine Total 24 ml Stool Total 450 ml Laboratory Tests 02/01/17 04:00: Arterial Blood pH 7.474H, Arterial Blood Partial Pressure CO2 31.7L, Arterial Blood Partial Pressure O2 57.3L, Arterial Blood HCO3 22.9, Arterial Blood Oxygen Saturation 89.4L, Arterial Blood Base Excess -0.4, Bon Test Positive 02/01/17 05:25: White Blood Count 10.3, Red Blood Count 2.77L, Hemoglobin 8.6L, Hematocrit 26.8L , Mean Corpuscular Volume 97, Mean Corpuscular Hemoglobin 31.1H, Mean Corpuscular Hemoglobin Concent 32.2, Red Cell Distribution Width 17.3H, Platelet Count 35L, Mean Platelet Volume 12.2H, Neutrophils (%) (Auto) , Lymphocytes (%) (Auto) , Monocytes (%) (Auto) , Eosinophils (%) (Auto) , Basophils (%) (Auto) , Differential Total Cells Counted 100, Neutrophils % ( Manual) 81H, Lymphocytes % (Manual) 15L, Monocytes % (Manual) 2, Eosinophils % ( Manual) 2, Basophils % (Manual) 0, Band Neutrophils 0, Platelet Estimate DecreasedL, Platelet Morphology Normal, Hypochromasia 1+, Anisocytosis 1+, Haptoglobin [Pending], Sodium Level 148H, Potassium Level 2.8L, Chloride Level 112H, Carbon Dioxide Level 26, Anion Gap 10, Blood Urea Nitrogen 54H, Creatinine 4.3H, Estimat Glomerular Filtration Rate , Glucose Level 255H, Calcium Level 9.8 02/01/17 06:50: Fibrinogen 247 Height (Feet): 5 Height (Inches): 6.00 Weight (Pounds): 275 General Appearance: alert EENT: normal ENT inspection Cardiovascular: no gallop/murmur Extremities: normal range of motion Edema: moderate edema 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
[2017-02-02] VITALS (24 sets, daily range): BP systolic 99–126; BP diastolic 40–60
[2017-02-02] MEDS: Erythromycin Ethylsuccinate 200mg/5ml Susp ORAL SCH ×4 (05:35→23:40)
[2017-02-02] MEDS: Midodrine 10mg tab NG SCH ×3 (05:35→22:02)
[2017-02-02] MEDS: NovoLOG Insulin Flexpen SUBQ SCH ×4 (05:36→23:41)
[2017-02-02 06:14] LABS: HEMATOCRIT 26.1 % (37.0-47.0); HEMOGLOBIN 8.5 G/DL (12.0-16.0); MEAN CORPUSCULAR VOLUME 99 FL (80-99); PLATELET COUNT 38 K/UL (150-450); RED BLOOD COUNT 2.65 M/UL (4.20-5.40); RED CELL DISTRIBUTION WIDTH 17.4 % (11.6-14.8); WHITE BLOOD COUNT 10.9 K/UL (4.8-10.8)
[2017-02-02 06:49] LABS: ALANINE AMINOTRANSFERASE 15 U/L (12-78); ALBUMIN 1.6 G/DL (3.4-5.0); ALBUMIN/GLOBULIN RATIO 0.4 (1.0-2.7); ALKALINE PHOSPHATASE 199 U/L (46-116); ANION GAP 10 (5-15); ASPARTATE AMINO TRANSFERASE 74 U/L (15-37); BILIRUBIN,TOTAL 1.4 MG/DL (0.2-1.0); BLOOD UREA NITROGEN 63 mg/dL (7-18); CALCIUM 10.1 MG/DL (8.5-10.1); CARBON DIOXIDE 25 MMOL/L (21-32); CHLORIDE 113 MMOL/L (98-107); CREATININE 5.2 MG/DL (0.55-1.30); PHOSPHORUS 2.7 MG/DL (2.5-4.9); POTASSIUM 3.4 MMOL/L (3.5-5.1); SODIUM 148 MMOL/L (136-145)
[2017-02-02 07:05] LABS: BILIRUBIN,DIRECT 0.8 MG/DL (0.0-0.3)
[2017-02-02] MEDS: KCl 10% 40mEq/30ml liquid NG SCH ×2 (09:37→18:50)
[2017-02-02] MEDS: Nystatin Powder 100,000 units/gm 15gm TOPIC SCH ×3 (09:37→18:50)
[2017-02-02] MEDS: Pantoprazole Inj IVP SCH ×2 (09:37→21:03)
[2017-02-02] MEDS: Lactulose 10gm/15ml UDC ORAL SCH ×2 (09:37→18:50)
--- NOTE | 2017-02-02 10:28 | General Progress Note ---
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 - High Mg Recommendations - continue Lactulose and Xifaxan - Continue TF - follow labs - HD/lytes per Renal Subjective Allergies: Coded Allergies: PENICILLINS (Unverified Allergy, Unknown, 03/22/15) Subjective intubated seen in ICU more awake today TF restarted - tolerating well Objective Last 24 Hour Vital Signs Date Time Temp Pulse Resp B/P (MAP) Pulse Ox O2 Delivery O2 Flow Rate FiO2 02/02/17 09:01 68 20 60 02/02/17 07:00 65 20 122/46 95 Mechanical Ventilator 60 02/02/17 06:46 75 20 60 02/02/17 06:00 65 20 122/46 100 Mechanical Ventilator 60 02/02/17 05:16 67 20 60 02/02/17 05:00 74 20 120/56 100 Mechanical Ventilator 60 02/02/17 04:00 60 02/02/17 04:00 98.6 70 18 117/55 100 Mechanical Ventilator 60 02/02/17 03:57 66 02/02/17 03:30 68 20 60 02/02/17 03:00 75 20 126/57 97 Mechanical Ventilator 60 02/02/17 02:00 68 16 122/53 95 Mechanical Ventilator 60 02/02/17 01:30 69 20 60 02/02/17 01:00 68 20 123/60 96 Mechanical Ventilator 60 02/02/17 00:00 98.9 66 20 117/45 98 Mechanical Ventilator 60 02/02/17 00:00 60 02/01/17 23:51 64 02/01/17 23:00 62 20 60 02/01/17 23:00 63 20 124/88 100 Mechanical Ventilator 60 02/01/17 22:00 62 20 100 Mechanical Ventilator 02/01/17 22:00 62 20 121/47 98 Mechanical Ventilator 60 02/01/17 22:00 64 20 100 Mechanical Ventilator 02/01/17 21:30 68 20 60 02/01/17 21:27 63 20 Mechanical Ventilator 02/01/17 21:00 64 20 114/43 100 Mechanical Ventilator 60 02/01/17 20:00 98.6 77 20 122/50 99 Mechanical Ventilator 60 02/01/17 20:00 82 10/15/17 20:00 60 02/01/17 19:30 80 21 60 02/01/17 19:00 80 20 122/51 97 Mechanical Ventilator 60 02/01/17 18:00 82 20 124/51 95 Mechanical Ventilator 60 02/01/17 17:00 63 20 120/44 99 Mechanical Ventilator 60 02/01/17 16:36 65 20 60 02/01/17 16:00 60 02/01/17 16:00 64 02/01/17 16:00 98.7 64 20 124/50 100 Mechanical Ventilator 60 02/01/17 15:23 61 20 60 02/01/17 15:00 65 20 123/48 100 Mechanical Ventilator 60 02/01/17 14:00 65 20 116/55 100 Mechanical Ventilator 60 02/01/17 13:30 63 20 60 02/01/17 13:00 64 20 126/51 100 Mechanical Ventilator 60 02/01/17 12:00 98.6 64 20 129/51 100 Mechanical Ventilator 60 02/01/17 12:00 67 02/01/17 12:00 60 02/01/17 11:07 132/53 02/01/17 11:00 67 20 132/53 100 Mechanical Ventilator 60 02/01/17 10:52 67 20 100 Mechanical Ventilator 60 02/01/17 10:52 60 02/01/17 10:38 67 20 100 Mechanical Ventilator 60 02/01/17 10:37 67 20 60 Laboratory Tests 02/02/17 05:15: White Blood Count 10.9H, Red Blood Count 2.65L, Hemoglobin 8.5L, Hematocrit 26.1L, Mean Corpuscular Volume 99, Mean Corpuscular Hemoglobin 32.1H, Mean Corpuscular Hemoglobin Concent 32.6, Red Cell Distribution Width 17.4H, Platelet Count 38L, Mean Platelet Volume 10.3H, Neutrophils (%) (Auto) , Lymphocytes (%) (Auto) , Monocytes (%) (Auto) , Eosinophils (%) (Auto) , Basophils (%) (Auto) , Differential Total Cells Counted 100, Neutrophils % ( Manual) 93H, Lymphocytes % (Manual) 5L, Monocytes % (Manual) 1, Eosinophils % ( Manual) 1, Basophils % (Manual) 0, Band Neutrophils 0, Platelet Estimate DecreasedL, Platelet Morphology Normal, Hypochromasia 2+, Anisocytosis 1+, Spherocytes 1+, Sodium Level 148H, Potassium Level 3.4L, Chloride Level 113H, Carbon Dioxide Level 25, Anion Gap 10, Blood Urea Nitrogen 63H, Creatinine 5.2H , Estimat Glomerular Filtration Rate , Glucose Level 290H, Calcium Level 10.1, Phosphorus Level 2.7, Magnesium Level 4.8*H, Total Bilirubin 1.4H, Direct Bilirubin 0.8H, Aspartate Amino Transf (AST/SGOT) 74H, Alanine Aminotransferase (ALT/SGPT) 15, Alkaline Phosphatase 199H, C-Reactive Protein, Quantitative 11.1H , Pro-B-Type Natriuretic Peptide 54872A, Total Protein 5.4L, Albumin 1.6L, Globulin 3.8, Albumin/Globulin Ratio 0.4L 02/02/17 09:12: Arterial Blood pH 7.498H, Arterial Blood Partial Pressure CO2 29.3L, Arterial Blood Partial Pressure O2 85.3, Arterial Blood HCO3 22.2, Arterial Blood Oxygen Saturation 95.8, Arterial Blood Base Excess -0.6, Bon Test Positive Height (Feet): 5 Height (Inches): 6.00 Weight (Pounds): 277 Objective Obese WW NCAT supple CTA RRR soft ND NT (+) edema arousable KIERSTEN DAVIES Feb 02, 2017 10:28
--- NOTE | 2017-02-02 10:28 | Diagnostic Imaging Report ---
Indication: SOB Technique: One view of the chest Comparison: 02/01/2017 Findings: Stable satisfactory positions of endotracheal and nasogastric tubes, right jugular temporary dialysis catheter. 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 The heart is probably enlarged Impression: Unchanged, over one day, findings as above.
--- NOTE | 2017-02-02 10:46 | Internal Med Progress Note ---
Subjective Date of Service: Feb 02, 2017 Physician Name JerriKatharina Attending Physician Rl Tee MD Current Medications Medications (Trade) Dose Ordered Sig/Pavel Route PRN Reason Start Time Stop Time Status Last Admin Dose Admin Acetaminophen (Tylenol) 650 mg Q4H PRN ORAL T>100.5 01/21/17 14:30 02/15/17 14:29 Albuterol/ Ipratropium (DuoNeb 0.5-3(2.5)mg/3ml) 3 ml Q4H PRN HHN Shortness of Breath 01/31/17 11:15 02/05/17 11:14 Chlorhexidine Gluconate (Dianne-Hex 2%) 1 applic DAILY@2000 TOPIC 01/25/17 20:00 02/24/17 19:59 02/01/17 19:41 Clotrimazole (Lotrimin) 1 applic EVERY 12 HOURS TOPIC 01/21/17 21:00 02/18/17 13:59 02/02/17 09:37 Colistimethate Sodium (Colistin *inhalation use only*) 75 mg Q12HRT INH 01/29/17 22:00 02/05/17 21:59 02/01/17 22:56 Dextrose (Dextrose 50%) STAT PRN IV Hypoglycemia 01/27/17 07:45 02/26/17 07:44 Dopamine HCl/ Dextrose 250 ml @ 0 mls/hr Q24H IV 01/25/17 11:15 02/24/17 11:14 01/30/17 10:30 Erythromycin (Jaya-Ped) 200 mg Q6HR ORAL 01/31/17 13:00 03/02/17 12:59 02/02/17 05:35 Insulin Aspart (NovoLOG) EVERY 6 HOURS SUBQ 01/27/17 18:00 02/26/17 11:29 02/02/17 05:36 Lactulose (Cephulac) 10 gm BID ORAL 01/23/17 09:00 02/18/17 12:59 02/02/17 09:37 Metoclopramide HCl (Reglan) 5 mg Q8H PRN IVP Nausea & Vomiting 01/29/17 11:30 02/28/17 11:29 01/31/17 11:46 Midodrine (Pro-Amatine) 5 mg Q8HR NG 01/31/17 14:00 03/02/17 13:59 Nitroglycerin (Ntg) 0.4 mg Q5MIN X 3 DOSES PRN SL Prn Chest Pain 01/21/17 14:30 02/15/17 14:29 Nystatin (Nystop Powder) 1 applic THREE TIMES A DAY TOPIC 01/22/17 13:00 02/21/17 12:59 02/02/17 09:37 Pantoprazole (Protonix) 40 mg EVERY 12 HOURS IVP 01/21/17 21:00 02/20/17 20:59 02/02/17 09:37 Polyethylene Glycol (Miralax) 17 gm DAILYPRN PRN ORAL Constipation 01/21/17 14:00 02/17/17 13:59 Potassium Chloride (KCl 10% 40mEq Oral solution) 40 meq TWICE A DAY NG 02/01/17 09:45 03/03/17 09:44 02/02/17 09:37 Rifaximin (Xifaxan) 550 mg EVERY 12 HOURS ORAL 01/29/17 12:00 02/05/17 11:59 02/02/17 09:37 Vancomycin HCl (Vanco rx to dose) 1 ea DAILY PRN MISC Per rx protocol 01/22/17 09:00 02/18/17 11:44 Allergies: Coded Allergies: PENICILLINS (Unverified Allergy, Unknown, 03/22/15) ROS Limited/Unobtainable: Yes Subjective 76 YO F admitted with altered mental status. Intubated and sedated. ICU . Cover for Int Nishant-Dr Tee. Objective Last Vital Signs Date Time Temp Pulse Resp B/P (MAP) Pulse Ox O2 Delivery O2 Flow Rate FiO2 02/02/17 09:01 68 20 60 02/02/17 07:00 122/46 95 Mechanical Ventilator 02/02/17 04:00 98.6 01/30/17 09:12 15.0 Laboratory Tests Test 02/02/17 05:15 02/02/17 09:12 White Blood Count 10.9 K/UL (4.8-10.8) H Red Blood Count 2.65 M/UL (4.20-5.40) L Hemoglobin 8.5 G/DL (12.0-16.0) L Hematocrit 26.1 % (37.0-47.0) L Mean Corpuscular Volume 99 FL (80-99) Mean Corpuscular Hemoglobin 32.1 PG (27.0-31.0) H Mean Corpuscular Hemoglobin Concent 32.6 G/DL (32.0-36.0) Red Cell Distribution Width 17.4 % (11.6-14.8) H Platelet Count 38 K/UL (150-450) L Mean Platelet Volume 10.3 FL (6.5-10.1) H Neutrophils (%) (Auto) % (45.0-75.0) Lymphocytes (%) (Auto) % (20.0-45.0) Monocytes (%) (Auto) % (1.0-10.0) Eosinophils (%) (Auto) % (0.0-3.0) Basophils (%) (Auto) % (0.0-2.0) Differential Total Cells Counted 100 Neutrophils % (Manual) 93 % (45-75) H Lymphocytes % (Manual) 5 % (20-45) L Monocytes % (Manual) 1 % (1-10) Eosinophils % (Manual) 1 % (0-3) Basophils % (Manual) 0 % (0-2) Band Neutrophils 0 % (0-8) Platelet Estimate Decreased L Platelet Morphology Normal Hypochromasia 2+ Anisocytosis 1+ Spherocytes 1+ Sodium Level 148 MMOL/L (136-145) H Potassium Level 3.4 MMOL/L (3.5-5.1) L Chloride Level 113 MMOL/L (98-107) H Carbon Dioxide Level 25 MMOL/L (21-32) Anion Gap 10 (5-15) Blood Urea Nitrogen 63 mg/dL (7-18) H Creatinine 5.2 MG/DL (0.55-1.30) H Estimat Glomerular Filtration Rate mL/min (>60) Glucose Level 290 MG/DL (74-106) H Calcium Level 10.1 MG/DL (8.5-10.1) Phosphorus Level 2.7 MG/DL (2.5-4.9) Magnesium Level 4.8 MG/DL (1.8-2.4) *H Total Bilirubin 1.4 MG/DL (0.2-1.0) H Direct Bilirubin 0.8 MG/DL (0.0-0.3) H Aspartate Amino Transf (AST/SGOT) 74 U/L (15-37) H Alanine Aminotransferase (ALT/SGPT) 15 U/L (12-78) Alkaline Phosphatase 199 U/L (46-116) H C-Reactive Protein, Quantitative 11.1 mg/dL (0.00-0.90) H Pro-B-Type Natriuretic Peptide 55881 (0-125) H Total Protein 5.4 G/DL (6.4-8.2) L Albumin 1.6 G/DL (3.4-5.0) L Globulin 3.8 g/dL Albumin/Globulin Ratio 0.4 (1.0-2.7) L Arterial Blood pH 7.498 (7.350-7.450) Arterial Blood Partial Pressure CO2 29.3 mmHg (35.0-45.0) L Arterial Blood Partial Pressure O2 85.3 mmHg (75.0-100.0) Arterial Blood HCO3 22.2 mmol/L (22.0-26.0) Arterial Blood Oxygen Saturation 95.8 % (92.0-98.0) Arterial Blood Base Excess -0.6 Bon Test Positive Objective General Appearance: WD/WN, no apparent distress, moderate distress, obese EENT: PERRL/EOMI, normal ENT inspection Neck: non-tender, normal alignment, supple, normal inspection Cardiovascular: normal peripheral pulses, normal rate, regular rhythm, no gallop/murmur, no JVD Respiratory/Chest: Mechanical vent; chest wall non-tender, lungs with coarse upper air sounds, Bilat wheezes and rales, respiratory distress Abdomen: G-Tube; non tender, no organomegaly, no mass 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 Baumanii. See ID note. Continur ertaoenem and vanco per ID (2) CHF (congestive heart failure) Assessment & Plan: LVEF 60-65%. see cardiology note. (3) DM (diabetes mellitus) Assessment & Plan: Continue novolog sliding scale (4) Hypercholesteremia (5) HTN (hypertension) Assessment & Plan: Currently hypotensive. (6) Uncontrolled diabetes mellitus (7) Cirrhosis Assessment & Plan: see GI note. (8) Anemia Assessment & Plan: S/P transfusion 2 units PRBC (9) Altered mental status Assessment & Plan: Worsening. ICU status (10) Renal failure Assessment & Plan: Next hemodialysis 02/02/17. See nephrology note. (11) Respiratory failure Assessment & Plan: Due to CHF. Cont mech vent per pulmonary. Continue antibiotic per ID (12) Bradycardia Assessment & Plan: see cardiology note. (13) Hypotension Assessment & Plan: Continue dopamine Status: not improved KATHARINA POND Feb 02, 2017 10:46
[2017-02-02] MEDS: Colistin for inhalation INH SCH ×2 (10:50→23:28)
--- NOTE | 2017-02-02 10:55 | Pulmonolgy Critical Care Note ---
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 Respiratory: monitor respiratory rate Cardiac: continue pressors, continue to monitor HR/BP Renal: F/U I&O, keep IV fluid, other - for HD today Infectious Disease: check cultures, continue antibiotics Endocrine: monitor blood sugar, check TSH, continue sliding scale insulin Hematologic: monitor H/H, transfuse if hgb<8.5 Neurologic: PRN Ativan, keep patient comfortable Disposition: keep in ICU Notes Reviewed: setter up, cardio Discussed with: nurses, consultants, skilled nursing case manager, family member, other - will probably need tracheostomy Critical Care - Objective Last 24 Hour Vital Signs Date Time Temp Pulse Resp B/P (MAP) Pulse Ox O2 Delivery O2 Flow Rate FiO2 02/02/17 09:01 68 20 60 02/02/17 07:00 65 20 122/46 95 Mechanical Ventilator 60 02/02/17 06:46 75 20 60 02/02/17 06:00 65 20 122/46 100 Mechanical Ventilator 60 02/02/17 05:16 67 20 60 02/02/17 05:00 74 20 120/56 100 Mechanical Ventilator 60 02/02/17 04:00 60 02/02/17 04:00 98.6 70 18 117/55 100 Mechanical Ventilator 60 02/02/17 03:57 66 02/02/17 03:30 68 20 60 02/02/17 03:00 75 20 126/57 97 Mechanical Ventilator 60 02/02/17 02:00 68 16 122/53 95 Mechanical Ventilator 60 02/02/17 01:30 69 20 60 02/02/17 01:00 68 20 123/60 96 Mechanical Ventilator 60 02/02/17 00:00 98.9 66 20 117/45 98 Mechanical Ventilator 60 02/02/17 00:00 60 02/01/17 23:51 64 02/01/17 23:00 62 20 60 02/01/17 23:00 63 20 124/88 100 Mechanical Ventilator 60 02/01/17 22:00 62 20 100 Mechanical Ventilator 02/01/17 22:00 62 20 121/47 98 Mechanical Ventilator 60 02/01/17 22:00 64 20 100 Mechanical Ventilator 02/01/17 21:30 68 20 60 02/01/17 21:27 63 20 Mechanical Ventilator 02/01/17 21:00 64 20 114/43 100 Mechanical Ventilator 60 02/01/17 20:00 98.6 77 20 122/50 99 Mechanical Ventilator 60 02/01/17 20:00 82 02/01/17 20:00 60 02/01/17 19:30 80 21 60 02/01/17 19:00 80 20 122/51 97 Mechanical Ventilator 60 02/01/17 18:00 82 20 124/51 95 Mechanical Ventilator 60 02/01/17 17:00 63 20 120/44 99 Mechanical Ventilator 60 02/01/17 16:36 65 20 60 02/01/17 16:00 60 02/01/17 16:00 64 02/01/17 16:00 98.7 64 20 124/50 100 Mechanical Ventilator 60 02/01/17 15:23 61 20 60 02/01/17 15:00 65 20 123/48 100 Mechanical Ventilator 60 02/01/17 14:00 65 20 116/55 100 Mechanical Ventilator 60 02/01/17 13:30 63 20 60 02/01/17 13:00 64 20 126/51 100 Mechanical Ventilator 60 02/01/17 12:00 98.6 64 20 129/51 100 Mechanical Ventilator 60 02/01/17 12:00 67 02/01/17 12:00 60 02/01/17 11:07 132/53 02/01/17 11:00 67 20 132/53 100 Mechanical Ventilator 60 Status: awake Condition: critical HEENT: atraumatic Neck: full ROM Lungs: chest wall tender Heart: HR/BP stable, HR/BP unstable Abdomen: soft, non-tender, active bowel sounds, feeding tube Decubiti: stage Accucheck: 278 Critical Care - Subjective ROS Limited/Unobtainable: Yes ICU Day: 17 Intubation Day: 17 Condition: critical EKG Rhythm: Sinus Rhythm FI02: 60 Vent Support Breath Rate: 20 Vent Support Mode: AC Vent Tidal Volume: 700 Sputum Amount: Small PEEP: 0.0 PIP: 45 Tube Feeding Amount: 30 CXR: no change ET-Tube: 7.0 ET Position: 21 Labs: Laboratory Tests Test 02/02/17 05:15 02/02/17 09:12 White Blood Count 10.9 K/UL (4.8-10.8) H Red Blood Count 2.65 M/UL (4.20-5.40) L Hemoglobin 8.5 G/DL (12.0-16.0) L Hematocrit 26.1 % (37.0-47.0) L Mean Corpuscular Volume 99 FL (80-99) Mean Corpuscular Hemoglobin 32.1 PG (27.0-31.0) H Mean Corpuscular Hemoglobin Concent 32.6 G/DL (32.0-36.0) Red Cell Distribution Width 17.4 % (11.6-14.8) H Platelet Count 38 K/UL (150-450) L Mean Platelet Volume 10.3 FL (6.5-10.1) H Neutrophils (%) (Auto) % (45.0-75.0) Lymphocytes (%) (Auto) % (20.0-45.0) Monocytes (%) (Auto) % (1.0-10.0) Eosinophils (%) (Auto) % (0.0-3.0) Basophils (%) (Auto) % (0.0-2.0) Differential Total Cells Counted 100 Neutrophils % (Manual) 93 % (45-75) H Lymphocytes % (Manual) 5 % (20-45) L Monocytes % (Manual) 1 % (1-10) Eosinophils % (Manual) 1 % (0-3) Basophils % (Manual) 0 % (0-2) Band Neutrophils 0 % (0-8) Platelet Estimate Decreased L Platelet Morphology Normal Hypochromasia 2+ Anisocytosis 1+ Spherocytes 1+ Sodium Level 148 MMOL/L (136-145) H Potassium Level 3.4 MMOL/L (3.5-5.1) L Chloride Level 113 MMOL/L (98-107) H Carbon Dioxide Level 25 MMOL/L (21-32) Anion Gap 10 (5-15) Blood Urea Nitrogen 63 mg/dL (7-18) H Creatinine 5.2 MG/DL (0.55-1.30) H Estimat Glomerular Filtration Rate mL/min (>60) Glucose Level 290 MG/DL (74-106) H Calcium Level 10.1 MG/DL (8.5-10.1) Phosphorus Level 2.7 MG/DL (2.5-4.9) Magnesium Level 4.8 MG/DL (1.8-2.4) *H Total Bilirubin 1.4 MG/DL (0.2-1.0) H Direct Bilirubin 0.8 MG/DL (0.0-0.3) H Aspartate Amino Transf (AST/SGOT) 74 U/L (15-37) H Alanine Aminotransferase (ALT/SGPT) 15 U/L (12-78) Alkaline Phosphatase 199 U/L (46-116) H C-Reactive Protein, Quantitative 11.1 mg/dL (0.00-0.90) H Pro-B-Type Natriuretic Peptide 07584 (0-125) H Total Protein 5.4 G/DL (6.4-8.2) L Albumin 1.6 G/DL (3.4-5.0) L Globulin 3.8 g/dL Albumin/Globulin Ratio 0.4 (1.0-2.7) L Arterial Blood pH 7.498 (7.350-7.450) Arterial Blood Partial Pressure CO2 29.3 mmHg (35.0-45.0) L Arterial Blood Partial Pressure O2 85.3 mmHg (75.0-100.0) Arterial Blood HCO3 22.2 mmol/L (22.0-26.0) Arterial Blood Oxygen Saturation 95.8 % (92.0-98.0) Arterial Blood Base Excess -0.6 Bon Test Positive DIONI TRIANA Feb 02, 2017 10:55
--- NOTE | 2017-02-02 11:13 | General Progress Note ---
Assessment/Plan Status: stable - from renal stand Assessment/Plan Acute on chronic renal failure- multifactorial CHF DM HTN Sepsis Now: Acute respiratory failure- Intubated - Altered level of consciousness - ESBL (extended spectrum beta-lactamase) producing bacteria infection - Cardiomegaly - DM (diabetes mellitus) - HTN (hypertension) - UTI (urinary tract infection) - Anemia - High Cholestrol - COPD - YELENA - Fatty liver Plan: stop IV fluid- Increase Tube feeding On midodrine dialysis 02/02 Transfuse as needed Optimize cardiac and pulmonary status 2D echo results noted avoid nephrotoxics monitor renal parameters Urine studies per orders poor prognosis Subjective ROS Limited/Unobtainable: Yes Allergies: Coded Allergies: PENICILLINS (Unverified Allergy, Unknown, 03/22/15) Objective Last 24 Hour Vital Signs Date Time Temp Pulse Resp B/P (MAP) Pulse Ox O2 Delivery O2 Flow Rate FiO2 02/02/17 10:50 65 20 100 Mechanical Ventilator 02/02/17 10:50 65 20 100 Mechanical Ventilator 02/02/17 10:33 65 20 60 02/02/17 09:01 68 20 60 02/02/17 07:00 65 20 122/46 95 Mechanical Ventilator 60 02/02/17 06:46 75 20 60 02/02/17 06:00 65 20 122/46 100 Mechanical Ventilator 60 02/02/17 05:16 67 20 60 02/02/17 05:00 74 20 120/56 100 Mechanical Ventilator 60 02/02/17 04:00 60 02/02/17 04:00 98.6 70 18 117/55 100 Mechanical Ventilator 60 02/02/17 03:57 66 02/02/17 03:30 68 20 60 02/02/17 03:00 75 20 126/57 97 Mechanical Ventilator 60 02/02/17 02:00 68 16 122/53 95 Mechanical Ventilator 60 02/02/17 01:30 69 20 60 02/02/17 01:00 68 20 123/60 96 Mechanical Ventilator 60 02/02/17 00:00 98.9 66 20 117/45 98 Mechanical Ventilator 60 02/02/17 00:00 60 02/01/17 23:51 64 02/01/17 23:00 62 20 60 02/01/17 23:00 63 20 124/88 100 Mechanical Ventilator 60 02/01/17 22:00 62 20 100 Mechanical Ventilator 02/01/17 22:00 62 20 121/47 98 Mechanical Ventilator 60 02/01/17 22:00 64 20 100 Mechanical Ventilator 02/01/17 21:30 68 20 60 02/01/17 21:27 63 20 Mechanical Ventilator 02/01/17 21:00 64 20 114/43 100 Mechanical Ventilator 60 02/01/17 20:00 98.6 77 20 122/50 99 Mechanical Ventilator 60 02/01/17 20:00 82 02/01/17 20:00 60 02/01/17 19:30 80 21 60 02/01/17 19:00 80 20 122/51 97 Mechanical Ventilator 60 02/01/17 18:00 82 20 124/51 95 Mechanical Ventilator 60 02/01/17 17:00 63 20 120/44 99 Mechanical Ventilator 60 02/01/17 16:36 65 20 60 02/01/17 16:00 60 02/01/17 16:00 64 02/01/17 16:00 98.7 64 20 124/50 100 Mechanical Ventilator 60 02/01/17 15:23 61 20 60 02/01/17 15:00 65 20 123/48 100 Mechanical Ventilator 60 02/01/17 14:00 65 20 116/55 100 Mechanical Ventilator 60 02/01/17 13:30 63 20 60 02/01/17 13:00 64 20 126/51 100 Mechanical Ventilator 60 02/01/17 12:00 98.6 64 20 129/51 100 Mechanical Ventilator 60 02/01/17 12:00 67 02/01/17 12:00 60 Laboratory Tests 02/02/17 05:15: White Blood Count 10.9H, Red Blood Count 2.65L, Hemoglobin 8.5L, Hematocrit 26.1L, Mean Corpuscular Volume 99, Mean Corpuscular Hemoglobin 32.1H, Mean Corpuscular Hemoglobin Concent 32.6, Red Cell Distribution Width 17.4H, Platelet Count 38L, Mean Platelet Volume 10.3H, Neutrophils (%) (Auto) , Lymphocytes (%) (Auto) , Monocytes (%) (Auto) , Eosinophils (%) (Auto) , Basophils (%) (Auto) , Differential Total Cells Counted 100, Neutrophils % ( Manual) 93H, Lymphocytes % (Manual) 5L, Monocytes % (Manual) 1, Eosinophils % ( Manual) 1, Basophils % (Manual) 0, Band Neutrophils 0, Platelet Estimate DecreasedL, Platelet Morphology Normal, Hypochromasia 2+, Anisocytosis 1+, Spherocytes 1+, Sodium Level 148H, Potassium Level 3.4L, Chloride Level 113H, Carbon Dioxide Level 25, Anion Gap 10, Blood Urea Nitrogen 63H, Creatinine 5.2H , Estimat Glomerular Filtration Rate , Glucose Level 290H, Calcium Level 10.1, Phosphorus Level 2.7, Magnesium Level 4.8*H, Total Bilirubin 1.4H, Direct Bilirubin 0.8H, Aspartate Amino Transf (AST/SGOT) 74H, Alanine Aminotransferase (ALT/SGPT) 15, Alkaline Phosphatase 199H, C-Reactive Protein, Quantitative 11.1H , Pro-B-Type Natriuretic Peptide 83884E, Total Protein 5.4L, Albumin 1.6L, Globulin 3.8, Albumin/Globulin Ratio 0.4L 02/02/17 09:12: Arterial Blood pH 7.498H, Arterial Blood Partial Pressure CO2 29.3L, Arterial Blood Partial Pressure O2 85.3, Arterial Blood HCO3 22.2, Arterial Blood Oxygen Saturation 95.8, Arterial Blood Base Excess -0.6, Bon Test Positive Height (Feet): 5 Height (Inches): 6.00 Weight (Pounds): 277 General Appearance: no apparent distress Respiratory/Chest: decreased breath sounds Abdomen: soft Objective no other change ANDERS MOLINA Feb 02, 2017 11:13
[2017-02-02] MEDS: DOPamine 400mg/250ml 250 ML IV SCH (11:15)
--- NOTE | 2017-02-02 14:09 | Infectious Diseases Prog Note ---
Assessment/Plan Assessment/Plan Assesment: Encephalopathy- possibly multifactorial- hepatic encephalopathy, infection- worsening now due to hypercapnea (transferred to ICU 01/21), on bipap> intubated Acute respiratory failure s/p intubation - 2ry to hypercapnea, PNA; now ARDS -CXR 01/29: Pulmonary parenchymal disease, likely ARDS, overall stable or may be slightly increased in the right lung apex over 2 days Sepsis 2ry to PNA and Bacteremia HCAP 2ry to ESBL. E.coli -CXR 01/25: Extensive bilateral interstitial and airspace edema/infiltrates slightly increased in the right lung. Stable support lines and tubes. -CXR 01/23 : Interval worsening pulmonary edema. -repeat sp cx 01/26: +4 MDR A.baumani (I Ceftazidime, R to carbapenem and aminoglycosides, Minocycline; S to Colistin, Polymyxin B) suspect Colonizer ( improving not on tx) -Sp cx 01/22: +2 ESBK E.coli, +2 C. albicans (colonizer) MRSA bacteremia- with repeat Bcx growing CoNS (?contaminant vs real) -01/16 04/23 BCx MRSA (S. Vanco JOSE A 1), repeat Bcx 01/19 Neg, 01/21 04/23 CoNS ( contaminant), 01/24 Bcx 04/23 CoNs, Bcx 01/26 Neg x4, 01/28 BCx NTD -TTE 01/19(limited study): No aortic regurgitation.Trace mitral regurgitation.Mitral diastolic velocities suggest reduced left ventricular relaxation c/w diastolic dysfunction grade. Moderate tricuspid regurgitation. Leukocytosis, previously worsened up to 24, now resolved -01/26. pyuria improving (WBC 10-15); ucx C. albicans (colonizer) -10/ u/a WBC 30-40, ucx yeast (colonizer) -Sp cx ESBL E.coli, diaz (colonizer) Elevated LFTs, improving -[facility] hep panel neg Probable MDR UTI, pyuria, s/p Rx -u/a 01/16 WBC too many to count,nit neg ,leuk est +3; UCx x3 grew >100K MDR A.baumani complex (S. tigecycline/Minocycline, Polymixin B/Colistin), >100K PsA (S. Cefepime, Zosyn; R Cipro/Levo); a prior isolated on a ucx from the same day isolated MDR PsA (I. Cefepime, R ceftzadime, Meropenem; S. Tygecicine, amikacin) -renal u/s: Nondiagnostic exam Metabolic acidosis, 2ry to renal failure- now improved after initiation of HD 01/28 RAMYA on CKD, started on HD 01/28 Cirrhosis Anemia & thrombocytopenia DM type 2 Morbid obesity PLAN: -Continue Ertapenem for ESBL E. coli in sputum (abx d# /) -s/p 1 dose Amikacin 01/28 -s/p 7d Cefepime 10/ -s/p 3d Amikacin 10/ -s/p 7d Minocycline 10/ -s/p 3d IV vanco 10/ -D/C IV Vancomycin #15/ For MRSA bacteremia (per pharmacy, renally dose); -f/u requested Dapto susceptibilities for MRSA in bcx (requested on 01/28) -continue prophylactic PO Vancomycin #11 -Continue Inhaled colistin 75mg bid #5/-10 for MDR ABC in sputum -monitor closely; if HD decompensation add IV Colistin -requested ceftazidime-avibactam, tigecycline and minocycline susceptibilities 01/29 -f/u Repeat echo -if persistent bacteremia and if consistent with goals of care will need NAM Discussed with RN. Poor px; critically ill Subjective Allergies: Coded Allergies: PENICILLINS (Unverified Allergy, Unknown, 03/22/15) Subjective afebrile mild leukocytosis BCx NTD Objective Vital Signs Last 24 Hour Vital Signs Date Time Temp Pulse Resp B/P (MAP) Pulse Ox O2 Delivery O2 Flow Rate FiO2 02/02/17 13:15 67 20 60 02/02/17 12:00 60 02/02/17 12:00 73 02/02/17 12:00 67 20 107/44 95 Mechanical Ventilator 60 02/02/17 11:00 65 20 99/45 95 Mechanical Ventilator 60 02/02/17 10:50 65 20 100 Mechanical Ventilator 02/02/17 10:50 65 20 100 Mechanical Ventilator 02/02/17 10:33 65 20 60 02/02/17 10:00 67 20 112/41 95 Mechanical Ventilator 60 02/02/17 09:01 68 20 60 02/02/17 09:00 63 20 118/46 95 Mechanical Ventilator 60 02/02/17 08:00 98.7 65 20 125/45 95 Mechanical Ventilator 60 02/02/17 08:00 60 02/02/17 08:00 66 02/02/17 07:00 65 20 122/46 95 Mechanical Ventilator 60 02/02/17 06:46 75 20 60 02/02/17 06:00 65 20 122/46 100 Mechanical Ventilator 60 02/02/17 05:16 67 20 60 02/02/17 05:00 74 20 120/56 100 Mechanical Ventilator 60 02/02/17 04:00 60 02/02/17 04:00 98.6 70 18 117/55 100 Mechanical Ventilator 60 02/02/17 03:57 66 02/02/17 03:30 68 20 60 02/02/17 03:00 75 20 126/57 97 Mechanical Ventilator 60 02/02/17 02:00 68 16 122/53 95 Mechanical Ventilator 60 02/02/17 01:30 69 20 60 02/02/17 01:00 68 20 123/60 96 Mechanical Ventilator 60 02/02/17 00:00 98.9 66 20 117/45 98 Mechanical Ventilator 60 02/02/17 00:00 60 02/01/17 23:51 64 02/01/17 23:00 62 20 60 02/01/17 23:00 63 20 124/88 100 Mechanical Ventilator 60 02/01/17 22:00 62 20 100 Mechanical Ventilator 02/01/17 22:00 62 20 121/47 98 Mechanical Ventilator 60 02/01/17 22:00 64 20 100 Mechanical Ventilator 02/01/17 21:30 68 20 60 02/01/17 21:27 63 20 Mechanical Ventilator 02/01/17 21:00 64 20 114/43 100 Mechanical Ventilator 60 02/01/17 20:00 98.6 77 20 122/50 99 Mechanical Ventilator 60 02/01/17 20:00 82 02/01/17 20:00 60 02/01/17 19:30 80 21 60 02/01/17 19:00 80 20 122/51 97 Mechanical Ventilator 60 02/01/17 18:00 82 20 124/51 95 Mechanical Ventilator 60 02/01/17 17:00 63 20 120/44 99 Mechanical Ventilator 60 02/01/17 16:36 65 20 60 02/01/17 16:00 60 02/01/17 16:00 64 02/01/17 16:00 98.7 64 20 124/50 100 Mechanical Ventilator 60 02/01/17 15:23 61 20 60 02/01/17 15:00 65 20 123/48 100 Mechanical Ventilator 60 02/01/17 14:00 65 20 116/55 100 Mechanical Ventilator 60 Height (Feet): 5 Height (Inches): 6.00 Weight (Pounds): 277 Objective HEENT: No pale conjunctivae. No icterus.ETT in place NECK: No lymphadenopathy. CHEST: coarse breath sounds HEART: S1 and S2. ABDOMEN: Soft and obese. EXTREMITIES: No cyanosis. NEUROLOGIC: lethargic. Skin: no rashes Laboratory Tests Test 02/02/17 05:15 02/02/17 09:12 White Blood Count 10.9 K/UL (4.8-10.8) H Red Blood Count 2.65 M/UL (4.20-5.40) L Hemoglobin 8.5 G/DL (12.0-16.0) L Hematocrit 26.1 % (37.0-47.0) L Mean Corpuscular Volume 99 FL (80-99) Mean Corpuscular Hemoglobin 32.1 PG (27.0-31.0) H Mean Corpuscular Hemoglobin Concent 32.6 G/DL (32.0-36.0) Red Cell Distribution Width 17.4 % (11.6-14.8) H Platelet Count 38 K/UL (150-450) L Mean Platelet Volume 10.3 FL (6.5-10.1) H Neutrophils (%) (Auto) % (45.0-75.0) Lymphocytes (%) (Auto) % (20.0-45.0) Monocytes (%) (Auto) % (1.0-10.0) Eosinophils (%) (Auto) % (0.0-3.0) Basophils (%) (Auto) % (0.0-2.0) Differential Total Cells Counted 100 Neutrophils % (Manual) 93 % (45-75) H Lymphocytes % (Manual) 5 % (20-45) L Monocytes % (Manual) 1 % (1-10) Eosinophils % (Manual) 1 % (0-3) Basophils % (Manual) 0 % (0-2) Band Neutrophils 0 % (0-8) Platelet Estimate Decreased L Platelet Morphology Normal Hypochromasia 2+ Anisocytosis 1+ Spherocytes 1+ Sodium Level 148 MMOL/L (136-145) H Potassium Level 3.4 MMOL/L (3.5-5.1) L Chloride Level 113 MMOL/L (98-107) H Carbon Dioxide Level 25 MMOL/L (21-32) Anion Gap 10 (5-15) Blood Urea Nitrogen 63 mg/dL (7-18) H Creatinine 5.2 MG/DL (0.55-1.30) H Estimat Glomerular Filtration Rate mL/min (>60) Glucose Level 290 MG/DL (74-106) H Calcium Level 10.1 MG/DL (8.5-10.1) Phosphorus Level 2.7 MG/DL (2.5-4.9) Magnesium Level 4.8 MG/DL (1.8-2.4) *H Total Bilirubin 1.4 MG/DL (0.2-1.0) H Direct Bilirubin 0.8 MG/DL (0.0-0.3) H Aspartate Amino Transf (AST/SGOT) 74 U/L (15-37) H Alanine Aminotransferase (ALT/SGPT) 15 U/L (12-78) Alkaline Phosphatase 199 U/L (46-116) H C-Reactive Protein, Quantitative 11.1 mg/dL (0.00-0.90) H Pro-B-Type Natriuretic Peptide 92137 (0-125) H Total Protein 5.4 G/DL (6.4-8.2) L Albumin 1.6 G/DL (3.4-5.0) L Globulin 3.8 g/dL Albumin/Globulin Ratio 0.4 (1.0-2.7) L Arterial Blood pH 7.498 (7.350-7.450) Arterial Blood Partial Pressure CO2 29.3 mmHg (35.0-45.0) L Arterial Blood Partial Pressure O2 85.3 mmHg (75.0-100.0) Arterial Blood HCO3 22.2 mmol/L (22.0-26.0) Arterial Blood Oxygen Saturation 95.8 % (92.0-98.0) Arterial Blood Base Excess -0.6 Bon Test Positive Current Medications Medications (Trade) Dose Ordered Sig/Pavel Route PRN Reason Start Time Stop Time Status Last Admin Dose Admin Acetaminophen (Tylenol) 650 mg Q4H PRN ORAL T>100.5 01/21/17 14:30 02/15/17 14:29 Albuterol/ Ipratropium (DuoNeb 0.5-3(2.5)mg/3ml) 3 ml Q4H PRN HHN Shortness of Breath 01/31/17 11:15 02/05/17 11:14 Chlorhexidine Gluconate (Dianne-Hex 2%) 1 applic DAILY@2000 TOPIC 01/25/17 20:00 02/24/17 19:59 02/01/17 19:41 Clotrimazole (Lotrimin) 1 applic EVERY 12 HOURS TOPIC 01/21/17 21:00 02/18/17 13:59 02/02/17 09:37 Colistimethate Sodium (Colistin *inhalation use only*) 75 mg Q12HRT INH 01/29/17 22:00 02/05/17 21:59 02/02/17 10:50 Dextrose (Dextrose 50%) STAT PRN IV Hypoglycemia 01/27/17 07:45 02/26/17 07:44 Dopamine HCl/ Dextrose 250 ml @ 0 mls/hr Q24H IV 01/25/17 11:15 02/24/17 11:14 01/30/17 10:30 Erythromycin (Jaya-Ped) 200 mg Q6HR ORAL 01/31/17 13:00 03/02/17 12:59 02/02/17 13:25 Insulin Aspart (NovoLOG) EVERY 6 HOURS SUBQ 01/27/17 18:00 02/26/17 11:29 02/02/17 13:14 Lactulose (Cephulac) 10 gm BID ORAL 01/23/17 09:00 02/18/17 12:59 02/02/17 09:37 Metoclopramide HCl (Reglan) 5 mg Q8H PRN IVP Nausea & Vomiting 01/29/17 11:30 02/28/17 11:29 01/31/17 11:46 Midodrine (Pro-Amatine) 5 mg Q8HR NG 01/31/17 14:00 03/02/17 13:59 02/02/17 13:12 Nitroglycerin (Ntg) 0.4 mg Q5MIN X 3 DOSES PRN SL Prn Chest Pain 01/21/17 14:30 02/15/17 14:29 Nystatin (Nystop Powder) 1 applic THREE TIMES A DAY TOPIC 01/22/17 13:00 02/21/17 12:59 02/02/17 13:12 Pantoprazole (Protonix) 40 mg EVERY 12 HOURS IVP 01/21/17 21:00 02/20/17 20:59 02/02/17 09:37 Polyethylene Glycol (Miralax) 17 gm DAILYPRN PRN ORAL Constipation 01/21/17 14:00 02/17/17 13:59 Potassium Chloride (KCl 10% 40mEq Oral solution) 40 meq TWICE A DAY NG 02/01/17 09:45 03/03/17 09:44 02/02/17 09:37 Rifaximin (Xifaxan) 550 mg EVERY 12 HOURS ORAL 01/29/17 12:00 02/05/17 11:59 02/02/17 09:37 Vancomycin HCl (Vanco rx to dose) 1 ea DAILY PRN MISC Per rx protocol 01/22/17 09:00 02/18/17 11:44 Nereyda Monroe M.D. Feb 02, 2017 14:09
[2017-02-02] MEDS ORDERED: Ertapenem 0.5 GM in NS 55 ML IVPB SCH (16:00)
[2017-02-02] MEDS: Vancomycin oral 125mg/2.5ml NG SCH ×2 (16:59→18:51)
--- NOTE | 2017-02-02 17:41 | Cardiac Electrophysiology PN ---
Assessment/Plan Assessment/Plan 1. Congestive heart failure and very high BNP due to diastolic dysfunction. Ejection fraction 60% to 65%. EKG NSR with low voltage QRS. On dialysis 2. Shock, resolved.Off Dopamine and on Abx 3. Bradycardia resolved, off dopamine. On midodrine 5 tid 4. Diabetes. 5. Hyperlipidemia. 6. Cirrhosis 7. Anemia with hemoglobin of 8. 8. Hypernatremia resolved 9. DNR and DNI 10. ESRD on HD DW RN Subjective Subjective In ICU unresponsive on Vent. Getting Dialysis. DNR and DNI Objective Last 24 Hour Vital Signs Date Time Temp Pulse Resp B/P (MAP) Pulse Ox O2 Delivery O2 Flow Rate FiO2 02/02/17 17:29 79 20 60 02/02/17 17:00 83 20 109/45 95 Mechanical Ventilator 60 02/02/17 16:00 98.5 58 20 109/40 95 Mechanical Ventilator 60 02/02/17 16:00 60 02/02/17 15:00 72 20 119/48 95 Mechanical Ventilator 60 02/02/17 14:51 81 20 60 02/02/17 14:00 81 20 121/48 95 Mechanical Ventilator 60 02/02/17 13:15 67 20 60 02/02/17 13:00 83 20 123/54 95 Mechanical Ventilator 60 02/02/17 12:00 60 02/02/17 12:00 98.4 02/02/17 12:00 73 02/02/17 12:00 67 20 107/44 95 Mechanical Ventilator 60 02/02/17 11:00 65 20 99/45 95 Mechanical Ventilator 60 02/02/17 10:50 65 20 100 Mechanical Ventilator 02/02/17 10:50 65 20 100 Mechanical Ventilator 02/02/17 10:33 65 20 60 02/02/17 10:00 67 20 112/41 95 Mechanical Ventilator 60 02/02/17 09:01 68 20 60 02/02/17 09:00 63 20 118/46 95 Mechanical Ventilator 60 02/02/17 08:00 98.7 65 20 125/45 95 Mechanical Ventilator 60 02/02/17 08:00 60 02/02/17 08:00 66 02/02/17 07:00 65 20 122/46 95 Mechanical Ventilator 60 02/02/17 06:46 75 20 60 02/02/17 06:00 65 20 122/46 100 Mechanical Ventilator 60 02/02/17 05:16 67 20 60 02/02/17 05:00 74 20 120/56 100 Mechanical Ventilator 60 02/02/17 04:00 60 02/02/17 04:00 98.6 70 18 117/55 100 Mechanical Ventilator 60 02/02/17 03:57 66 02/02/17 03:30 68 20 60 02/02/17 03:00 75 20 126/57 97 Mechanical Ventilator 60 02/02/17 02:00 68 16 122/53 95 Mechanical Ventilator 60 02/02/17 01:30 69 20 60 02/02/17 01:00 68 20 123/60 96 Mechanical Ventilator 60 02/02/17 00:00 98.9 66 20 117/45 98 Mechanical Ventilator 60 02/02/17 00:00 60 02/01/17 23:51 64 02/01/17 23:00 62 20 60 02/01/17 23:00 63 20 124/88 100 Mechanical Ventilator 60 02/01/17 22:00 62 20 100 Mechanical Ventilator 02/01/17 22:00 62 20 121/47 98 Mechanical Ventilator 60 02/01/17 22:00 64 20 100 Mechanical Ventilator 02/01/17 21:30 68 20 60 02/01/17 21:27 63 20 Mechanical Ventilator 02/01/17 21:00 64 20 114/43 100 Mechanical Ventilator 60 02/01/17 20:00 98.6 77 20 122/50 99 Mechanical Ventilator 60 02/01/17 20:00 82 02/01/17 20:00 60 02/01/17 19:30 80 21 60 02/01/17 19:00 80 20 122/51 97 Mechanical Ventilator 60 02/01/17 18:00 82 20 124/51 95 Mechanical Ventilator 60 Intake and Output 02/02/17 02/03/17 19:00 07:00 Intake Total 400 ml Output Total 0 ml Balance 400 ml Free Water 100 ml Tube Feeding 300 ml Output Urine Total 0 ml Laboratory Tests Test 02/02/17 05:15 02/02/17 09:12 White Blood Count 10.9 K/UL (4.8-10.8) H Red Blood Count 2.65 M/UL (4.20-5.40) L Hemoglobin 8.5 G/DL (12.0-16.0) L Hematocrit 26.1 % (37.0-47.0) L Mean Corpuscular Volume 99 FL (80-99) Mean Corpuscular Hemoglobin 32.1 PG (27.0-31.0) H Mean Corpuscular Hemoglobin Concent 32.6 G/DL (32.0-36.0) Red Cell Distribution Width 17.4 % (11.6-14.8) H Platelet Count 38 K/UL (150-450) L Mean Platelet Volume 10.3 FL (6.5-10.1) H Neutrophils (%) (Auto) % (45.0-75.0) Lymphocytes (%) (Auto) % (20.0-45.0) Monocytes (%) (Auto) % (1.0-10.0) Eosinophils (%) (Auto) % (0.0-3.0) Basophils (%) (Auto) % (0.0-2.0) Differential Total Cells Counted 100 Neutrophils % (Manual) 93 % (45-75) H Lymphocytes % (Manual) 5 % (20-45) L Monocytes % (Manual) 1 % (1-10) Eosinophils % (Manual) 1 % (0-3) Basophils % (Manual) 0 % (0-2) Band Neutrophils 0 % (0-8) Platelet Estimate Decreased L Platelet Morphology Normal Hypochromasia 2+ Anisocytosis 1+ Spherocytes 1+ Sodium Level 148 MMOL/L (136-145) H Potassium Level 3.4 MMOL/L (3.5-5.1) L Chloride Level 113 MMOL/L (98-107) H Carbon Dioxide Level 25 MMOL/L (21-32) Anion Gap 10 (5-15) Blood Urea Nitrogen 63 mg/dL (7-18) H Creatinine 5.2 MG/DL (0.55-1.30) H Estimat Glomerular Filtration Rate mL/min (>60) Glucose Level 290 MG/DL (74-106) H Calcium Level 10.1 MG/DL (8.5-10.1) Phosphorus Level 2.7 MG/DL (2.5-4.9) Magnesium Level 4.8 MG/DL (1.8-2.4) *H Total Bilirubin 1.4 MG/DL (0.2-1.0) H Direct Bilirubin 0.8 MG/DL (0.0-0.3) H Aspartate Amino Transf (AST/SGOT) 74 U/L (15-37) H Alanine Aminotransferase (ALT/SGPT) 15 U/L (12-78) Alkaline Phosphatase 199 U/L (46-116) H C-Reactive Protein, Quantitative 11.1 mg/dL (0.00-0.90) H Pro-B-Type Natriuretic Peptide 06081 (0-125) H Total Protein 5.4 G/DL (6.4-8.2) L Albumin 1.6 G/DL (3.4-5.0) L Globulin 3.8 g/dL Albumin/Globulin Ratio 0.4 (1.0-2.7) L Arterial Blood pH 7.498 (7.350-7.450) Arterial Blood Partial Pressure CO2 29.3 mmHg (35.0-45.0) L Arterial Blood Partial Pressure O2 85.3 mmHg (75.0-100.0) Arterial Blood HCO3 22.2 mmol/L (22.0-26.0) Arterial Blood Oxygen Saturation 95.8 % (92.0-98.0) Arterial Blood Base Excess -0.6 Bon Test Positive Objective HEAD AND NECK: No JVD.Orally intubated. Right IJ Maharkar Catheter in place LUNGS: Coarse rhonchi CARDIOVASCULAR: Regular S1 and S2 with no gallop or murmur. ABDOMEN: Soft and nontender and obese. EXTREMITIES: 1+ pitting edema. DEAN SHAW Feb 02, 2017 17:41
[2017-02-02] MEDS: Dyna-Hex 2% Top Sol 2oz TOPIC SCH (20:07)
[2017-02-02] MEDS: Ertapenem 0.5 GM in NS 55 ML IVPB SCH (21:03)
[2017-02-02] MEDS ORDERED: NS 275ml ONE (21:15)
[2017-02-02] MEDS ORDERED: Sterile Water Irrig 1000ml IRRIG ONE (21:15)
--- NOTE | 2017-02-02 21:30 | General Progress Note ---
Assessment/Plan Status: unchanged Assessment/Plan encephalopathy Subjective Date patient seen: Feb 02, 2017 Neurologic/Psychiatric: Reports: anxiety Allergies: Coded Allergies: PENICILLINS (Unverified Allergy, Unknown, 03/22/15) Subjective waxing and waning of consciousness.agitated at times Objective Last 24 Hour Vital Signs Date Time Temp Pulse Resp B/P (MAP) Pulse Ox O2 Delivery O2 Flow Rate FiO2 02/02/17 21:19 79 20 60 02/02/17 20:00 98.1 71 22 101/43 97 Mechanical Ventilator 60 02/02/17 20:00 60 02/02/17 20:00 76 02/02/17 19:40 Mechanical Ventilator 02/02/17 19:30 77 20 60 02/02/17 19:00 71 18 121/48 98 Mechanical Ventilator 60 02/02/17 18:00 72 18 111/44 98 Mechanical Ventilator 60 02/02/17 17:29 79 20 60 02/02/17 17:00 83 20 109/45 95 Mechanical Ventilator 60 02/02/17 16:30 Mechanical Ventilator 15.0 60 02/02/17 16:00 98.5 58 20 109/40 95 Mechanical Ventilator 60 02/02/17 16:00 82 02/02/17 16:00 60 02/02/17 15:00 72 20 119/48 95 Mechanical Ventilator 60 02/02/17 14:51 81 20 60 02/02/17 14:00 81 20 121/48 95 Mechanical Ventilator 60 02/02/17 13:15 67 20 60 02/02/17 13:00 83 20 123/54 95 Mechanical Ventilator 60 02/02/17 12:00 60 02/02/17 12:00 98.4 02/02/17 12:00 73 02/02/17 12:00 67 20 107/44 95 Mechanical Ventilator 60 02/02/17 11:00 65 20 99/45 95 Mechanical Ventilator 60 02/02/17 10:50 65 20 100 Mechanical Ventilator 02/02/17 10:50 65 20 100 Mechanical Ventilator 02/02/17 10:33 65 20 60 02/02/17 10:00 67 20 112/41 95 Mechanical Ventilator 60 02/02/17 09:01 68 20 60 02/02/17 09:00 63 20 118/46 95 Mechanical Ventilator 60 02/02/17 08:00 98.7 65 20 125/45 95 Mechanical Ventilator 60 02/02/17 08:00 60 02/02/17 08:00 66 02/02/17 07:00 65 20 122/46 95 Mechanical Ventilator 60 02/02/17 06:46 75 20 60 02/02/17 06:00 65 20 122/46 100 Mechanical Ventilator 60 02/02/17 05:16 67 20 60 02/02/17 05:00 74 20 120/56 100 Mechanical Ventilator 60 02/02/17 04:00 60 02/02/17 04:00 98.6 70 18 117/55 100 Mechanical Ventilator 60 02/02/17 03:57 66 02/02/17 03:30 68 20 60 02/02/17 03:00 75 20 126/57 97 Mechanical Ventilator 60 02/02/17 02:00 68 16 122/53 95 Mechanical Ventilator 60 02/02/17 01:30 69 20 60 02/02/17 01:00 68 20 123/60 96 Mechanical Ventilator 60 02/02/17 00:00 98.9 66 20 117/45 98 Mechanical Ventilator 60 02/02/17 00:00 60 02/01/17 23:51 64 02/01/17 23:00 62 20 60 02/01/17 23:00 63 20 124/88 100 Mechanical Ventilator 60 02/01/17 22:00 62 20 100 Mechanical Ventilator 02/01/17 22:00 62 20 121/47 98 Mechanical Ventilator 60 02/01/17 22:00 64 20 100 Mechanical Ventilator 02/01/17 21:30 68 20 60 Intake and Output 02/02/17 02/03/17 19:00 07:00 Intake Total 660 ml 30 ml Output Total 300 ml 3120 ml Balance 360 ml -3090 ml Free Water 300 ml Tube Feeding 360 ml 30 ml Output Urine Total 0 ml 20 ml Stool Total 300 ml Hemodialysis UF 3100 ml Laboratory Tests 02/02/17 05:15: White Blood Count 10.9H, Red Blood Count 2.65L, Hemoglobin 8.5L, Hematocrit 26.1L, Mean Corpuscular Volume 99, Mean Corpuscular Hemoglobin 32.1H, Mean Corpuscular Hemoglobin Concent 32.6, Red Cell Distribution Width 17.4H, Platelet Count 38L, Mean Platelet Volume 10.3H, Neutrophils (%) (Auto) , Lymphocytes (%) (Auto) , Monocytes (%) (Auto) , Eosinophils (%) (Auto) , Basophils (%) (Auto) , Differential Total Cells Counted 100, Neutrophils % ( Manual) 93H, Lymphocytes % (Manual) 5L, Monocytes % (Manual) 1, Eosinophils % ( Manual) 1, Basophils % (Manual) 0, Band Neutrophils 0, Platelet Estimate DecreasedL, Platelet Morphology Normal, Hypochromasia 2+, Anisocytosis 1+, Spherocytes 1+, Sodium Level 148H, Potassium Level 3.4L, Chloride Level 113H, Carbon Dioxide Level 25, Anion Gap 10, Blood Urea Nitrogen 63H, Creatinine 5.2H , Estimat Glomerular Filtration Rate , Glucose Level 290H, Calcium Level 10.1, Phosphorus Level 2.7, Magnesium Level 4.8*H, Total Bilirubin 1.4H, Direct Bilirubin 0.8H, Aspartate Amino Transf (AST/SGOT) 74H, Alanine Aminotransferase (ALT/SGPT) 15, Alkaline Phosphatase 199H, C-Reactive Protein, Quantitative 11.1H , Pro-B-Type Natriuretic Peptide 52415T, Total Protein 5.4L, Albumin 1.6L, Globulin 3.8, Albumin/Globulin Ratio 0.4L 02/02/17 09:12: Arterial Blood pH 7.498H, Arterial Blood Partial Pressure CO2 29.3L, Arterial Blood Partial Pressure O2 85.3, Arterial Blood HCO3 22.2, Arterial Blood Oxygen Saturation 95.8, Arterial Blood Base Excess -0.6, Bon Test Positive Height (Feet): 5 Height (Inches): 6.00 Weight (Pounds): 277 General Appearance: lethargic, confused, morbidly obese Neurologic: disoriented, depressed affect Oj Medel M.D. Feb 02, 2017 21:30
--- NOTE | 2017-02-02 21:38 | General Progress Note ---
Assessment/Plan Assessment/Plan ASSESSMENT AND RECOMMENDATIONS 1.Thrombocytopenia 2/2 sepsis --> improving --> give plts if below 10k or if below 20k and febrile --> ID following 2. Coagulopathy secondary to underlying liver cirrhosis 3. Thrombocytopenia secondary to underlying splenomegaly. 4. Anemia 2/2 chronic disease --> s/p transfusion --> Watch HH, transfuse if below 8 5. Leukocytosis secondary to underlying infection. On abx per id service 6. Sepsis 2/2 UTI 7. Altered mental status 8. RAMYA on CKD, is to receive hemodialysis Subjective Constitutional: Reports: no symptoms HEENT: Reports: no symptoms Cardiovascular: Reports: no symptoms Respiratory: Reports: no symptoms Gastrointestinal/Abdominal: Reports: no symptoms Genitourinary: Reports: no symptoms Neurologic/Psychiatric: Reports: no symptoms Endocrine: Reports: no symptoms Hematologic/Lymphatic: Reports: no symptoms Allergies: Coded Allergies: PENICILLINS (Unverified Allergy, Unknown, 03/22/15) Subjective no fevers Objective Last 24 Hour Vital Signs Date Time Temp Pulse Resp B/P (MAP) Pulse Ox O2 Delivery O2 Flow Rate FiO2 02/02/17 21:19 79 20 60 02/02/17 21:00 74 20 110/46 92 Mechanical Ventilator 60 02/02/17 20:00 98.1 71 22 101/43 97 Mechanical Ventilator 60 02/02/17 20:00 60 02/02/17 20:00 76 02/02/17 19:40 Mechanical Ventilator 02/02/17 19:30 77 20 60 02/02/17 19:00 71 18 121/48 98 Mechanical Ventilator 60 02/02/17 18:00 72 18 111/44 98 Mechanical Ventilator 60 02/02/17 17:29 79 20 60 02/02/17 17:00 83 20 109/45 95 Mechanical Ventilator 60 02/02/17 16:30 Mechanical Ventilator 15.0 60 02/02/17 16:00 98.5 58 20 109/40 95 Mechanical Ventilator 60 02/02/17 16:00 82 02/02/17 16:00 60 02/02/17 15:00 72 20 119/48 95 Mechanical Ventilator 60 02/02/17 14:51 81 20 60 02/02/17 14:00 81 20 121/48 95 Mechanical Ventilator 60 02/02/17 13:15 67 20 60 02/02/17 13:00 83 20 123/54 95 Mechanical Ventilator 60 02/02/17 12:00 60 02/02/17 12:00 98.4 02/02/17 12:00 73 02/02/17 12:00 67 20 107/44 95 Mechanical Ventilator 60 02/02/17 11:00 65 20 99/45 95 Mechanical Ventilator 60 02/02/17 10:50 65 20 100 Mechanical Ventilator 02/02/17 10:50 65 20 100 Mechanical Ventilator 02/02/17 10:33 65 20 60 02/02/17 10:00 67 20 112/41 95 Mechanical Ventilator 60 02/02/17 09:01 68 20 60 02/02/17 09:00 63 20 118/46 95 Mechanical Ventilator 60 02/02/17 08:00 98.7 65 20 125/45 95 Mechanical Ventilator 60 02/02/17 08:00 60 02/02/17 08:00 66 02/02/17 07:00 65 20 122/46 95 Mechanical Ventilator 60 02/02/17 06:46 75 20 60 02/02/17 06:00 65 20 122/46 100 Mechanical Ventilator 60 02/02/17 05:16 67 20 60 02/02/17 05:00 74 20 120/56 100 Mechanical Ventilator 60 02/02/17 04:00 60 02/02/17 04:00 98.6 70 18 117/55 100 Mechanical Ventilator 60 02/02/17 03:57 66 02/02/17 03:30 68 20 60 02/02/17 03:00 75 20 126/57 97 Mechanical Ventilator 60 02/02/17 02:00 68 16 122/53 95 Mechanical Ventilator 60 02/02/17 01:30 69 20 60 02/02/17 01:00 68 20 123/60 96 Mechanical Ventilator 60 02/02/17 00:00 98.9 66 20 117/45 98 Mechanical Ventilator 60 02/02/17 00:00 60 02/01/17 23:51 64 02/01/17 23:00 62 20 60 02/01/17 23:00 63 20 124/88 100 Mechanical Ventilator 60 02/01/17 22:00 62 20 100 Mechanical Ventilator 02/01/17 22:00 62 20 121/47 98 Mechanical Ventilator 60 02/01/17 22:00 64 20 100 Mechanical Ventilator Intake and Output 02/02/17 02/03/17 19:00 07:00 Intake Total 660 ml 120 ml Output Total 300 ml 3120 ml Balance 360 ml -3000 ml Free Water 300 ml Tube Feeding 360 ml 60 ml Other 60 ml Output Urine Total 0 ml 20 ml Stool Total 300 ml Hemodialysis UF 3100 ml Laboratory Tests 02/02/17 05:15: White Blood Count 10.9H, Red Blood Count 2.65L, Hemoglobin 8.5L, Hematocrit 26.1L, Mean Corpuscular Volume 99, Mean Corpuscular Hemoglobin 32.1H, Mean Corpuscular Hemoglobin Concent 32.6, Red Cell Distribution Width 17.4H, Platelet Count 38L, Mean Platelet Volume 10.3H, Neutrophils (%) (Auto) , Lymphocytes (%) (Auto) , Monocytes (%) (Auto) , Eosinophils (%) (Auto) , Basophils (%) (Auto) , Differential Total Cells Counted 100, Neutrophils % ( Manual) 93H, Lymphocytes % (Manual) 5L, Monocytes % (Manual) 1, Eosinophils % ( Manual) 1, Basophils % (Manual) 0, Band Neutrophils 0, Platelet Estimate DecreasedL, Platelet Morphology Normal, Hypochromasia 2+, Anisocytosis 1+, Spherocytes 1+, Sodium Level 148H, Potassium Level 3.4L, Chloride Level 113H, Carbon Dioxide Level 25, Anion Gap 10, Blood Urea Nitrogen 63H, Creatinine 5.2H , Estimat Glomerular Filtration Rate , Glucose Level 290H, Calcium Level 10.1, Phosphorus Level 2.7, Magnesium Level 4.8*H, Total Bilirubin 1.4H, Direct Bilirubin 0.8H, Aspartate Amino Transf (AST/SGOT) 74H, Alanine Aminotransferase (ALT/SGPT) 15, Alkaline Phosphatase 199H, C-Reactive Protein, Quantitative 11.1H , Pro-B-Type Natriuretic Peptide 82814U, Total Protein 5.4L, Albumin 1.6L, Globulin 3.8, Albumin/Globulin Ratio 0.4L 02/02/17 09:12: Arterial Blood pH 7.498H, Arterial Blood Partial Pressure CO2 29.3L, Arterial Blood Partial Pressure O2 85.3, Arterial Blood HCO3 22.2, Arterial Blood Oxygen Saturation 95.8, Arterial Blood Base Excess -0.6, Bon Test Positive Height (Feet): 5 Height (Inches): 6.00 Weight (Pounds): 277 General Appearance: no apparent distress EENT: normal ENT inspection Neck: normal alignment Cardiovascular: no gallop/murmur Abdomen: no mass Edema: mild edema Skin: warm/dry Chriss Pat Feb 02, 2017 21:38
[2017-02-03] VITALS (24 sets, daily range): BP systolic 98–151; BP diastolic 33–63
[2017-02-03] MEDS: Midodrine 10mg tab NG SCH ×3 (05:51→22:00)
[2017-02-03] MEDS: Erythromycin Ethylsuccinate 200mg/5ml Susp ORAL SCH ×3 (05:51→18:13)
[2017-02-03] MEDS: NovoLOG Insulin Flexpen SUBQ SCH ×3 (05:53→18:19)
[2017-02-03 06:00] LABS: HEMATOCRIT 24.6 % (37.0-47.0); HEMOGLOBIN 8.1 G/DL (12.0-16.0); MEAN CORPUSCULAR VOLUME 98 FL (80-99); PLATELET COUNT 46 K/UL (150-450); RED CELL DISTRIBUTION WIDTH 16.6 % (11.6-14.8); WHITE BLOOD COUNT 11.4 K/UL (4.8-10.8)
[2017-02-03 06:31] LABS: ALANINE AMINOTRANSFERASE 15 U/L (12-78); ALBUMIN 1.5 G/DL (3.4-5.0); ALBUMIN/GLOBULIN RATIO 0.4 (1.0-2.7); ALKALINE PHOSPHATASE 184 U/L (46-116); ANION GAP 8 mmol/L (5-15); ASPARTATE AMINO TRANSFERASE 77 U/L (15-37); BILIRUBIN,TOTAL 1.8 MG/DL (0.2-1.0); BLOOD UREA NITROGEN 42 mg/dL (7-18); CALCIUM 9.2 MG/DL (8.5-10.1); CARBON DIOXIDE 30 MMOL/L (21-32); CHLORIDE 113 MMOL/L (98-107); CREATININE 4.1 MG/DL (0.55-1.30); POTASSIUM 3.2 MMOL/L (3.5-5.1); SODIUM 151 MMOL/L (136-145)
[2017-02-03 06:38] LABS: BILIRUBIN,DIRECT 0.9 MG/DL (0.0-0.3)
[2017-02-03 06:50] LABS: PHOSPHORUS 1.9 MG/DL (2.5-4.9)
--- NOTE | 2017-02-03 07:39 | General Progress Note ---
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 - hypernatremia Recommendations - continue Lactulose and Xifaxan - Continue TF - increase rate - follow labs - HD/lytes per Renal - increase free water Subjective Allergies: Coded Allergies: PENICILLINS (Unverified Allergy, Unknown, 03/22/15) Subjective above noted d/w RN tolerating TF awake/responsive Objective Last 24 Hour Vital Signs Date Time Temp Pulse Resp B/P (MAP) Pulse Ox O2 Delivery O2 Flow Rate FiO2 02/03/17 07:00 67 18 125/47 97 Mechanical Ventilator 60 02/03/17 06:45 75 20 60 02/03/17 06:00 61 20 129/44 96 Mechanical Ventilator 60 02/03/17 05:00 62 20 134/46 100 Mechanical Ventilator 60 02/03/17 04:47 63 20 60 02/03/17 04:00 60 02/03/17 04:00 98.6 64 18 112/49 97 Mechanical Ventilator 60 02/03/17 04:00 62 02/03/17 03:30 62 20 60 02/03/17 03:00 60 18 100/61 97 Mechanical Ventilator 60 02/03/17 02:00 69 17 117/48 97 Mechanical Ventilator 60 02/03/17 01:30 60 20 60 02/03/17 01:00 69 18 119/51 99 Mechanical Ventilator 60 02/03/17 00:00 60 02/03/17 00:00 98.3 71 18 98/45 97 Mechanical Ventilator 60 02/03/17 00:00 67 02/02/17 23:29 71 20 60 02/02/17 23:00 70 20 106/49 99 Mechanical Ventilator 60 02/02/17 22:00 68 20 101/44 100 Mechanical Ventilator 60 02/02/17 21:30 78 20 100 Mechanical Ventilator 02/02/17 21:30 68 20 100 Mechanical Ventilator 02/02/17 21:19 79 20 60 02/02/17 21:00 74 20 110/46 92 Mechanical Ventilator 60 02/02/17 20:00 98.1 71 22 101/43 97 Mechanical Ventilator 60 02/02/17 20:00 60 02/02/17 20:00 76 02/02/17 19:40 Mechanical Ventilator 02/02/17 19:30 77 20 60 02/02/17 19:00 71 18 121/48 98 Mechanical Ventilator 60 02/02/17 18:00 72 18 111/44 98 Mechanical Ventilator 60 02/02/17 17:29 79 20 60 02/02/17 17:00 83 20 109/45 95 Mechanical Ventilator 60 02/02/17 16:30 Mechanical Ventilator 15.0 60 02/02/17 16:00 98.5 58 20 109/40 95 Mechanical Ventilator 60 02/02/17 16:00 82 02/02/17 16:00 60 02/02/17 15:00 72 20 119/48 95 Mechanical Ventilator 60 02/02/17 14:51 81 20 60 02/02/17 14:00 81 20 121/48 95 Mechanical Ventilator 60 02/02/17 13:15 67 20 60 02/02/17 13:00 83 20 123/54 95 Mechanical Ventilator 60 02/02/17 12:00 60 02/02/17 12:00 98.4 02/02/17 12:00 73 02/02/17 12:00 67 20 107/44 95 Mechanical Ventilator 60 02/02/17 11:00 65 20 99/45 95 Mechanical Ventilator 60 02/02/17 10:50 65 20 100 Mechanical Ventilator 02/02/17 10:50 65 20 100 Mechanical Ventilator 02/02/17 10:33 65 20 60 02/02/17 10:00 67 20 112/41 95 Mechanical Ventilator 60 02/02/17 09:01 68 20 60 02/02/17 09:00 63 20 118/46 95 Mechanical Ventilator 60 02/02/17 08:00 98.7 65 20 125/45 95 Mechanical Ventilator 60 02/02/17 08:00 60 02/02/17 08:00 66 Laboratory Tests 02/02/17 09:12: Arterial Blood pH 7.498H, Arterial Blood Partial Pressure CO2 29.3L, Arterial Blood Partial Pressure O2 85.3, Arterial Blood HCO3 22.2, Arterial Blood Oxygen Saturation 95.8, Arterial Blood Base Excess -0.6, Bon Test Positive 02/03/17 05:00: White Blood Count 11.4H, Red Blood Count 2.50L, Hemoglobin 8.1L, Hematocrit 24.6L, Mean Corpuscular Volume 98, Mean Corpuscular Hemoglobin 32.5H, Mean Corpuscular Hemoglobin Concent 33.1, Red Cell Distribution Width 16.6H, Platelet Count 46L, Mean Platelet Volume 11.2H, Neutrophils (%) (Auto) , Lymphocytes (%) (Auto) , Monocytes (%) (Auto) , Eosinophils (%) (Auto) , Basophils (%) (Auto) , Differential Total Cells Counted 100, Neutrophils % ( Manual) 91H, Lymphocytes % (Manual) 6L, Monocytes % (Manual) 3, Eosinophils % ( Manual) 0, Basophils % (Manual) 0, Band Neutrophils 0, Platelet Estimate DecreasedL, Platelet Morphology Normal, Hypochromasia 3+, Anisocytosis 1+, Sodium Level 151H, Potassium Level 3.2L, Chloride Level 113H, Carbon Dioxide Level 30, Anion Gap 8, Blood Urea Nitrogen 42H, Creatinine 4.1H, Estimat Glomerular Filtration Rate , Glucose Level 211H, Uric Acid 4.9, Calcium Level 9.2, Phosphorus Level 1.9L, Magnesium Level 2.0, Total Bilirubin 1.8H, Direct Bilirubin 0.9H, Aspartate Amino Transf (AST/SGOT) 77H, Alanine Aminotransferase (ALT/SGPT) 15, Alkaline Phosphatase 184H, C-Reactive Protein, Quantitative 11.0H , Pro-B-Type Natriuretic Peptide [id number], Total Protein 5.3L, Albumin 1.5L, Globulin 3.8, Albumin/Globulin Ratio 0.4L Height (Feet): 5 Height (Inches): 6.00 Weight (Pounds): 260 Objective Obese WW NCAT, (+) ETT and NGT supple CTA RRR soft ND NT (+) edema arousable KIERSTEN DAVIES Feb 03, 2017 07:39
[2017-02-03] MEDS: Nystatin Powder 100,000 units/gm 15gm TOPIC SCH ×3 (09:30→18:14)
[2017-02-03] MEDS: Vancomycin oral 125mg/2.5ml NG SCH ×2 (09:30→18:13)
[2017-02-03] MEDS: Pantoprazole Inj IVP SCH (09:30)
[2017-02-03] MEDS: Lactulose 10gm/15ml UDC ORAL SCH ×2 (09:30→18:13)
[2017-02-03] MEDS: KCl 10% 40mEq/30ml liquid NG SCH ×2 (09:30→18:13)
--- NOTE | 2017-02-03 09:36 | Pulmonolgy Critical Care Note ---
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 Respiratory: monitor respiratory rate, adjust FIO2, CXR Cardiac: continue pressors, continue to monitor HR/BP Renal: F/U I&O, keep IV fluid, check electrolytes Infectious Disease: check cultures Gastrointestinal: continue feedings/current rate Endocrine: monitor blood sugar, continue sliding scale insulin Hematologic: monitor H/H, transfuse if hgb<8.5 Neurologic: PRN Ativan, PRN Morphine, keep patient comfortable Time Spent (Minutes): 40 Notes Reviewed: building construction contractor, renal Discussed with: consultants, case management assistantdot compliance manager - Objective Last 24 Hour Vital Signs Date Time Temp Pulse Resp B/P (MAP) Pulse Ox O2 Delivery O2 Flow Rate FiO2 02/03/17 09:08 62 20 60 02/03/17 08:00 61 02/03/17 08:00 98.5 61 20 125/48 100 Mechanical Ventilator 60 02/03/17 08:00 60 02/03/17 07:00 67 18 125/47 97 Mechanical Ventilator 60 02/03/17 06:45 75 20 60 02/03/17 06:00 61 20 129/44 96 Mechanical Ventilator 60 02/03/17 05:00 62 20 134/46 100 Mechanical Ventilator 60 02/03/17 04:47 63 20 60 02/03/17 04:00 60 02/03/17 04:00 98.6 64 18 112/49 97 Mechanical Ventilator 60 02/03/17 04:00 62 02/03/17 03:30 62 20 60 02/03/17 03:00 60 18 100/61 97 Mechanical Ventilator 60 02/03/17 02:00 69 17 117/48 97 Mechanical Ventilator 60 02/03/17 01:30 60 20 60 02/03/17 01:00 69 18 119/51 99 Mechanical Ventilator 60 02/03/17 00:00 60 02/03/17 00:00 98.3 71 18 98/45 97 Mechanical Ventilator 60 02/03/17 00:00 67 02/02/17 23:29 71 20 60 02/02/17 23:00 70 20 106/49 99 Mechanical Ventilator 60 02/02/17 22:00 68 20 101/44 100 Mechanical Ventilator 60 02/02/17 21:30 78 20 100 Mechanical Ventilator 02/02/17 21:30 68 20 100 Mechanical Ventilator 02/02/17 21:19 79 20 60 02/02/17 21:00 74 20 110/46 92 Mechanical Ventilator 60 02/02/17 20:00 98.1 71 22 101/43 97 Mechanical Ventilator 60 02/02/17 20:00 60 02/02/17 20:00 76 02/02/17 19:40 Mechanical Ventilator 02/02/17 19:30 77 20 60 02/02/17 19:00 71 18 121/48 98 Mechanical Ventilator 60 02/02/17 18:00 72 18 111/44 98 Mechanical Ventilator 60 02/02/17 17:29 79 20 60 02/02/17 17:00 83 20 109/45 95 Mechanical Ventilator 60 02/02/17 16:30 Mechanical Ventilator 15.0 60 02/02/17 16:00 98.5 58 20 109/40 95 Mechanical Ventilator 60 02/02/17 16:00 82 02/02/17 16:00 60 02/02/17 15:00 72 20 119/48 95 Mechanical Ventilator 60 02/02/17 14:51 81 20 60 02/02/17 14:00 81 20 121/48 95 Mechanical Ventilator 60 02/02/17 13:15 67 20 60 02/02/17 13:00 83 20 123/54 95 Mechanical Ventilator 60 02/02/17 12:00 60 02/02/17 12:00 98.4 02/02/17 12:00 73 02/02/17 12:00 67 20 107/44 95 Mechanical Ventilator 60 02/02/17 11:00 65 20 99/45 95 Mechanical Ventilator 60 02/02/17 10:50 65 20 100 Mechanical Ventilator 02/02/17 10:50 65 20 100 Mechanical Ventilator 02/02/17 10:33 65 20 60 02/02/17 10:00 67 20 112/41 95 Mechanical Ventilator 60 Status: awake Condition: critical HEENT: atraumatic, normocephalic Neck: full ROM Lungs: clear Heart: HR/BP stable Abdomen: soft, non-tender Extremities: no C/C/E, edema Decubiti: location Accucheck: 220 Critical Care - Subjective ROS Limited/Unobtainable: Yes EKG Rhythm: Sinus Rhythm FI02: 60 Vent Support Breath Rate: 20 Vent Support Mode: AC Vent Tidal Volume: 700 Sputum Amount: Small PEEP: 0.0 PIP: 48 Drips: off drips Tube Feeding Amount: 35 I&O: Intake and Output 02/03/17 02/04/17 19:00 07:00 Intake Total 35 ml Output Total 0 ml Balance 35 ml Tube Feeding 35 ml Output Urine Total 0 ml CXR: minimally better, ET in good position ET-Tube: 7.0 ET Position: 21 Labs: Laboratory Tests Test 02/03/17 05:00 White Blood Count 11.4 K/UL (4.8-10.8) H Red Blood Count 2.50 M/UL (4.20-5.40) L Hemoglobin 8.1 G/DL (12.0-16.0) L Hematocrit 24.6 % (37.0-47.0) L Mean Corpuscular Volume 98 FL (80-99) Mean Corpuscular Hemoglobin 32.5 PG (27.0-31.0) H Mean Corpuscular Hemoglobin Concent 33.1 G/DL (32.0-36.0) Red Cell Distribution Width 16.6 % (11.6-14.8) H Platelet Count 46 K/UL (150-450) L Mean Platelet Volume 11.2 FL (6.5-10.1) H Neutrophils (%) (Auto) % (45.0-75.0) Lymphocytes (%) (Auto) % (20.0-45.0) Monocytes (%) (Auto) % (1.0-10.0) Eosinophils (%) (Auto) % (0.0-3.0) Basophils (%) (Auto) % (0.0-2.0) Differential Total Cells Counted 100 Neutrophils % (Manual) 91 % (45-75) H Lymphocytes % (Manual) 6 % (20-45) L Monocytes % (Manual) 3 % (1-10) Eosinophils % (Manual) 0 % (0-3) Basophils % (Manual) 0 % (0-2) Band Neutrophils 0 % (0-8) Platelet Estimate Decreased L Platelet Morphology Normal Hypochromasia 3+ Anisocytosis 1+ Sodium Level 151 MMOL/L (136-145) H Potassium Level 3.2 MMOL/L (3.5-5.1) L Chloride Level 113 MMOL/L (98-107) H Carbon Dioxide Level 30 MMOL/L (21-32) Anion Gap 8 mmol/L (5-15) Blood Urea Nitrogen 42 mg/dL (7-18) H Creatinine 4.1 MG/DL (0.55-1.30) H Estimat Glomerular Filtration Rate mL/min (>60) Glucose Level 211 MG/DL (74-106) H Uric Acid 4.9 MG/DL (2.6-7.2) Calcium Level 9.2 MG/DL (8.5-10.1) Phosphorus Level 1.9 MG/DL (2.5-4.9) L Magnesium Level 2.0 MG/DL (1.8-2.4) Total Bilirubin 1.8 MG/DL (0.2-1.0) H Direct Bilirubin 0.9 MG/DL (0.0-0.3) H Aspartate Amino Transf (AST/SGOT) 77 U/L (15-37) H Alanine Aminotransferase (ALT/SGPT) 15 U/L (12-78) Alkaline Phosphatase 184 U/L (46-116) H C-Reactive Protein, Quantitative 11.0 mg/dL (0.00-0.90) H Pro-B-Type Natriuretic Peptide 83483 pg/mL (0-125) H Total Protein 5.3 G/DL (6.4-8.2) L Albumin 1.5 G/DL (3.4-5.0) L Globulin 3.8 g/dL Albumin/Globulin Ratio 0.4 (1.0-2.7) L DIONI TRIANA Feb 03, 2017 09:36
[2017-02-03] MEDS: Colistin for inhalation INH SCH ×2 (10:43→21:11)
[2017-02-03] MEDS: DOPamine 400mg/250ml 250 ML IV SCH (11:15)
--- NOTE | 2017-02-03 11:23 | Infectious Diseases Prog Note ---
Assessment/Plan Assessment/Plan Assessment: Encephalopathy- possibly multifactorial- hepatic encephalopathy, infection- worsening now due to hypercapnea (transferred to ICU 01/21), on bipap> intubated Acute respiratory failure s/p intubation - 2ry to hypercapnea, PNA; now ARDS -CXR 01/29: Pulmonary parenchymal disease, likely ARDS, overall stable or may be slightly increased in the right lung apex over 2 days Sepsis 2ry to PNA and Bacteremia HCAP 2ry to ESBL. 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 -repeat sp cx 01/26: +4 MDR A.baumani (I Ceftazidime, R to carbapenem and aminoglycosides, Minocycline; S to Colistin, Polymyxin B) suspect Colonizer ( improving not on tx) -Sp cx 01/22: +2 ESBK E.coli, +2 C. albicans (colonizer) MRSA bacteremia- with repeat Bcx growing CoNS (?contaminant vs real). BCx cleared 01/26 SP Rx -01/16 04/23 BCx MRSA (S. Vanco JOSE A 1), repeat Bcx 01/19 Neg, 01/21 04/23 CoNS ( contaminant), 01/24 Bcx 04/23 CoNs, Bcx 01/26 Neg x4, 01/28 BCx neg -TTE 01/19(limited study): No aortic regurgitation.Trace mitral regurgitation.Mitral diastolic velocities suggest reduced left ventricular relaxation c/w diastolic dysfunction grade. Moderate tricuspid regurgitation. Leukocytosis, previously worsened up to 24, now recurrent, mild, afebrile -01/26. pyuria improving (WBC 10-15); ucx C. albicans (colonizer) -/ u/a WBC 30-40, ucx yeast (colonizer) -Sp cx ESBL E.coli, diaz (colonizer) Elevated LFTs, improving -[facility] hep panel neg Probable MDR UTI, pyuria, s/p Rx -u/a 01/16 WBC too many to count,nit neg ,leuk est +3; UCx x3 grew >100K MDR A.baumani complex (S. tigecycline/Minocycline, Polymixin B/Colistin), >100K PsA (S. Cefepime, Zosyn; R Cipro/Levo); a prior isolated on a ucx from the same day isolated MDR PsA (I. Cefepime, R ceftzadime, Meropenem; S. Tygecicine, amikacin) -renal u/s: Nondiagnostic exam Metabolic acidosis, 2ry to renal failure- now improved after initiation of HD 01/28 RAMYA on CKD, started on HD 01/28 Cirrhosis Anemia & thrombocytopenia DM type 2 Morbid obesity PLAN: -Continue Ertapenem for ESBL E. coli in sputum (abx d# 13/14) -02/03 s/p IV Vancomycin #/ -s/p 1 dose Amikacin 01/28 -s/p 7d Cefepime 01/24 -s/p 3d Amikacin 10/ -s/p 7d Minocycline 10/ -s/p 3d IV vanco 01/18 -continue prophylactic PO Vancomycin #12 -Continue Inhaled colistin 75mg bid #/-10 for MDR ABC in sputum -monitor closely; if HD decompensation add IV Colistin -requested ceftazidime-avibactam (not available), tigecycline and minocycline susceptibilities 01/29 -f/u Repeat echo -if persistent bacteremia and if consistent with goals of care will need NAM Subjective Allergies: Coded Allergies: PENICILLINS (Unverified Allergy, Unknown, 03/22/15) Subjective remains afebrile on vent. no pressors Objective Vital Signs Last 24 Hour Vital Signs Date Time Temp Pulse Resp B/P (MAP) Pulse Ox O2 Delivery O2 Flow Rate FiO2 02/03/17 11:15 105/33 02/03/17 11:00 68 20 105/33 93 Mechanical Ventilator 60 02/03/17 10:43 65 20 60 02/03/17 10:43 65 20 100 Mechanical Ventilator 02/03/17 10:43 41 20 98 Mechanical Ventilator 02/03/17 10:00 63 20 109/51 97 Mechanical Ventilator 60 02/03/17 09:08 62 20 60 02/03/17 09:00 68 18 129/52 96 Mechanical Ventilator 60 02/03/17 08:00 61 02/03/17 08:00 98.5 61 20 125/48 100 Mechanical Ventilator 60 02/03/17 08:00 60 02/03/17 07:00 67 18 125/47 97 Mechanical Ventilator 60 02/03/17 06:45 75 20 60 02/03/17 06:00 61 20 129/44 96 Mechanical Ventilator 60 10/17/17 05:00 62 20 134/46 100 Mechanical Ventilator 60 02/03/17 04:47 63 20 60 02/03/17 04:00 60 02/03/17 04:00 98.6 64 18 112/49 97 Mechanical Ventilator 60 02/03/17 04:00 62 02/03/17 03:30 62 20 60 02/03/17 03:00 60 18 100/61 97 Mechanical Ventilator 60 02/03/17 02:00 69 17 117/48 97 Mechanical Ventilator 60 02/03/17 01:30 60 20 60 02/03/17 01:00 69 18 119/51 99 Mechanical Ventilator 60 02/03/17 00:00 60 02/03/17 00:00 98.3 71 18 98/45 97 Mechanical Ventilator 60 02/03/17 00:00 67 02/02/17 23:29 71 20 60 02/02/17 23:00 70 20 106/49 99 Mechanical Ventilator 60 02/02/17 22:00 68 20 101/44 100 Mechanical Ventilator 60 02/02/17 21:30 78 20 100 Mechanical Ventilator 02/02/17 21:30 68 20 100 Mechanical Ventilator 02/02/17 21:19 79 20 60 02/02/17 21:00 74 20 110/46 92 Mechanical Ventilator 60 02/02/17 20:00 98.1 71 22 101/43 97 Mechanical Ventilator 60 02/02/17 20:00 60 02/02/17 20:00 76 02/02/17 19:40 Mechanical Ventilator 02/02/17 19:30 77 20 60 02/02/17 19:00 71 18 121/48 98 Mechanical Ventilator 60 02/02/17 18:00 72 18 111/44 98 Mechanical Ventilator 60 02/02/17 17:29 79 20 60 02/02/17 17:00 83 20 109/45 95 Mechanical Ventilator 60 02/02/17 16:30 Mechanical Ventilator 15.0 60 02/02/17 16:00 98.5 58 20 109/40 95 Mechanical Ventilator 60 02/02/17 16:00 82 02/02/17 16:00 60 02/02/17 15:00 72 20 119/48 95 Mechanical Ventilator 60 02/02/17 14:51 81 20 60 02/02/17 14:00 81 20 121/48 95 Mechanical Ventilator 60 02/02/17 13:15 67 20 60 02/02/17 13:00 83 20 123/54 95 Mechanical Ventilator 60 02/02/17 12:00 60 02/02/17 12:00 98.4 02/02/17 12:00 73 02/02/17 12:00 67 20 107/44 95 Mechanical Ventilator 60 Height (Feet): 5 Height (Inches): 6.00 Weight (Pounds): 260 General Appearance: no acute distress Respiratory/Chest: decreased breath sounds Cardiovascular: normal rate, regular rhythm Abdomen: normal bowel sounds, soft, non tender, non distended Laboratory Tests Test 02/03/17 05:00 White Blood Count 11.4 K/UL (4.8-10.8) H Red Blood Count 2.50 M/UL (4.20-5.40) L Hemoglobin 8.1 G/DL (12.0-16.0) L Hematocrit 24.6 % (37.0-47.0) L Mean Corpuscular Volume 98 FL (80-99) Mean Corpuscular Hemoglobin 32.5 PG (27.0-31.0) H Mean Corpuscular Hemoglobin Concent 33.1 G/DL (32.0-36.0) Red Cell Distribution Width 16.6 % (11.6-14.8) H Platelet Count 46 K/UL (150-450) L Mean Platelet Volume 11.2 FL (6.5-10.1) H Neutrophils (%) (Auto) % (45.0-75.0) Lymphocytes (%) (Auto) % (20.0-45.0) Monocytes (%) (Auto) % (1.0-10.0) Eosinophils (%) (Auto) % (0.0-3.0) Basophils (%) (Auto) % (0.0-2.0) Differential Total Cells Counted 100 Neutrophils % (Manual) 91 % (45-75) H Lymphocytes % (Manual) 6 % (20-45) L Monocytes % (Manual) 3 % (1-10) Eosinophils % (Manual) 0 % (0-3) Basophils % (Manual) 0 % (0-2) Band Neutrophils 0 % (0-8) Platelet Estimate Decreased L Platelet Morphology Normal Hypochromasia 3+ Anisocytosis 1+ Sodium Level 151 MMOL/L (136-145) H Potassium Level 3.2 MMOL/L (3.5-5.1) L Chloride Level 113 MMOL/L (98-107) H Carbon Dioxide Level 30 MMOL/L (21-32) Anion Gap 8 mmol/L (5-15) Blood Urea Nitrogen 42 mg/dL (7-18) H Creatinine 4.1 MG/DL (0.55-1.30) H Estimat Glomerular Filtration Rate mL/min (>60) Glucose Level 211 MG/DL (74-106) H Uric Acid 4.9 MG/DL (2.6-7.2) Calcium Level 9.2 MG/DL (8.5-10.1) Phosphorus Level 1.9 MG/DL (2.5-4.9) L Magnesium Level 2.0 MG/DL (1.8-2.4) Total Bilirubin 1.8 MG/DL (0.2-1.0) H Direct Bilirubin 0.9 MG/DL (0.0-0.3) H Aspartate Amino Transf (AST/SGOT) 77 U/L (15-37) H Alanine Aminotransferase (ALT/SGPT) 15 U/L (12-78) Alkaline Phosphatase 184 U/L (46-116) H C-Reactive Protein, Quantitative 11.0 mg/dL (0.00-0.90) H Pro-B-Type Natriuretic Peptide 54449 pg/mL (0-125) H Total Protein 5.3 G/DL (6.4-8.2) L Albumin 1.5 G/DL (3.4-5.0) L Globulin 3.8 g/dL Albumin/Globulin Ratio 0.4 (1.0-2.7) L Current Medications Medications (Trade) Dose Ordered Sig/Pavel Route PRN Reason Start Time Stop Time Status Last Admin Dose Admin Acetaminophen (Tylenol) 650 mg Q4H PRN ORAL T>100.5 01/21/17 14:30 02/15/17 14:29 Albuterol/ Ipratropium (DuoNeb 0.5-3(2.5)mg/3ml) 3 ml Q4H PRN HHN Shortness of Breath 01/31/17 11:15 02/05/17 11:14 Chlorhexidine Gluconate (Dianne-Hex 2%) 1 applic DAILY@1999 TOPIC 01/25/17 20:00 117/17 19:59 02/02/17 20:07 Clotrimazole (Lotrimin) 1 applic EVERY 12 HOURS TOPIC 01/21/17 21:00 02/18/17 13:59 02/03/17 09:30 Colistimethate Sodium (Colistin *inhalation use only*) 75 mg Q12HRT INH 01/29/17 22:00 02/05/17 21:59 02/03/17 10:43 Dextrose (Dextrose 50%) STAT PRN IV Hypoglycemia 01/27/17 07:45 02/26/17 07:44 Dopamine HCl/ Dextrose 250 ml @ 0 mls/hr Q24H IV 01/25/17 11:15 02/24/17 11:14 01/30/17 10:30 Ertapenem 0.5 gm/ Sodium Chloride 55 ml @ 110 mls/hr Q24H IVPB 02/02/17 21:00 02/07/17 20:59 02/02/17 21:03 Erythromycin (Jaya-Ped) 200 mg Q6HR ORAL 01/31/17 13:00 03/02/17 12:59 02/03/17 05:51 Insulin Aspart (NovoLOG) EVERY 6 HOURS SUBQ 01/27/17 18:00 02/26/17 11:29 02/03/17 05:53 Lactulose (Cephulac) 10 gm BID ORAL 01/23/17 09:00 02/18/17 12:59 02/03/17 09:30 Metoclopramide HCl (Reglan) 5 mg Q8H PRN IVP Nausea & Vomiting 01/29/17 11:30 02/28/17 11:29 01/31/17 11:46 Midodrine (Pro-Amatine) 5 mg Q8HR NG 01/31/17 14:00 03/02/17 13:59 02/03/17 05:51 Nitroglycerin (Ntg) 0.4 mg Q5MIN X 3 DOSES PRN SL Prn Chest Pain 01/21/17 14:30 02/15/17 14:29 Nystatin (Nystop Powder) 1 applic THREE TIMES A DAY TOPIC 01/22/17 13:00 02/21/17 12:59 02/03/17 09:30 Pantoprazole (Protonix) 40 mg EVERY 12 HOURS IVP 01/21/17 21:00 02/20/17 20:59 02/03/17 09:30 Polyethylene Glycol (Miralax) 17 gm DAILYPRN PRN ORAL Constipation 01/21/17 14:00 02/17/17 13:59 Potassium Chloride (KCl 10% 40mEq Oral solution) 40 meq TWICE A DAY NG 02/01/17 09:45 03/03/17 09:44 02/03/17 09:30 Rifaximin (Xifaxan) 550 mg EVERY 12 HOURS ORAL 01/29/17 12:00 02/05/17 11:59 02/03/17 09:31 Vancomycin HCl (Vancomycin) 125 mg BID NG 02/02/17 16:00 02/09/17 15:59 02/03/17 09:30 KAYLA LOUIS Feb 03, 2017 11:23
--- NOTE | 2017-02-03 12:05 | General Progress Note ---
Assessment/Plan Status: stable - from renal stand on HD Assessment/Plan Acute on chronic renal failure- multifactorial CHF DM HTN Sepsis Now: Acute respiratory failure- Intubated - Altered level of consciousness - ESBL (extended spectrum beta-lactamase) producing bacteria infection - Cardiomegaly - DM (diabetes mellitus) - HTN (hypertension) - UTI (urinary tract infection) - Anemia - High Cholestrol - COPD - YELENA - Fatty liver Plan: trach vs Comfort care !? On midodrine dialysis 02/02 next 02/04 Transfuse as needed Optimize cardiac and pulmonary status 2D echo results noted avoid nephrotoxics monitor renal parameters Urine studies per orders poor prognosis Subjective ROS Limited/Unobtainable: Yes Allergies: Coded Allergies: PENICILLINS (Unverified Allergy, Unknown, 03/22/15) Objective Last 24 Hour Vital Signs Date Time Temp Pulse Resp B/P (MAP) Pulse Ox O2 Delivery O2 Flow Rate FiO2 02/03/17 11:15 105/33 02/03/17 11:00 68 20 105/33 93 Mechanical Ventilator 60 02/03/17 10:43 65 20 60 02/03/17 10:43 65 20 100 Mechanical Ventilator 02/03/17 10:43 41 20 98 Mechanical Ventilator 02/03/17 10:00 63 20 109/51 97 Mechanical Ventilator 60 02/03/17 09:08 62 20 60 02/03/17 09:00 68 18 129/52 96 Mechanical Ventilator 60 02/03/17 08:00 61 02/03/17 08:00 98.5 61 20 125/48 100 Mechanical Ventilator 60 02/03/17 08:00 60 02/03/17 07:00 67 18 125/47 97 Mechanical Ventilator 60 02/03/17 06:45 75 20 60 02/03/17 06:00 61 20 129/44 96 Mechanical Ventilator 60 02/03/17 05:00 62 20 134/46 100 Mechanical Ventilator 60 02/03/17 04:47 63 20 60 02/03/17 04:00 60 02/03/17 04:00 98.6 64 18 112/49 97 Mechanical Ventilator 60 02/03/17 04:00 62 02/03/17 03:30 62 20 60 02/03/17 03:00 60 18 100/61 97 Mechanical Ventilator 60 02/03/17 02:00 69 17 117/48 97 Mechanical Ventilator 60 02/03/17 01:30 60 20 60 02/03/17 01:00 69 18 119/51 99 Mechanical Ventilator 60 02/03/17 00:00 60 02/03/17 00:00 98.3 71 18 98/45 97 Mechanical Ventilator 60 02/03/17 00:00 67 02/02/17 23:29 71 20 60 02/02/17 23:00 70 20 106/49 99 Mechanical Ventilator 60 02/02/17 22:00 68 20 101/44 100 Mechanical Ventilator 60 02/02/17 21:30 78 20 100 Mechanical Ventilator 02/02/17 21:30 68 20 100 Mechanical Ventilator 02/02/17 21:19 79 20 60 02/02/17 21:00 74 20 110/46 92 Mechanical Ventilator 60 02/02/17 20:00 98.1 71 22 101/43 97 Mechanical Ventilator 60 02/02/17 20:00 60 02/02/17 20:00 76 02/02/17 19:40 Mechanical Ventilator 02/02/17 19:30 77 20 60 02/02/17 19:00 71 18 121/48 98 Mechanical Ventilator 60 02/02/17 18:00 72 18 111/44 98 Mechanical Ventilator 60 02/02/17 17:29 79 20 60 02/02/17 17:00 83 20 109/45 95 Mechanical Ventilator 60 02/02/17 16:30 Mechanical Ventilator 15.0 60 02/02/17 16:00 98.5 58 20 109/40 95 Mechanical Ventilator 60 02/02/17 16:00 82 02/02/17 16:00 60 02/02/17 15:00 72 20 119/48 95 Mechanical Ventilator 60 02/02/17 14:51 81 20 60 02/02/17 14:00 81 20 121/48 95 Mechanical Ventilator 60 02/02/17 13:15 67 20 60 02/02/17 13:00 83 20 123/54 95 Mechanical Ventilator 60 Intake and Output 02/03/17 02/04/17 19:00 07:00 Intake Total 190 ml Output Total 0 ml Balance 190 ml Tube Feeding 140 ml Other 50 ml Output Urine Total 0 ml Laboratory Tests 02/03/17 05:00: White Blood Count 11.4H, Red Blood Count 2.50L, Hemoglobin 8.1L, Hematocrit 24.6L, Mean Corpuscular Volume 98, Mean Corpuscular Hemoglobin 32.5H, Mean Corpuscular Hemoglobin Concent 33.1, Red Cell Distribution Width 16.6H, Platelet Count 46L, Mean Platelet Volume 11.2H, Neutrophils (%) (Auto) , Lymphocytes (%) (Auto) , Monocytes (%) (Auto) , Eosinophils (%) (Auto) , Basophils (%) (Auto) , Differential Total Cells Counted 100, Neutrophils % ( Manual) 91H, Lymphocytes % (Manual) 6L, Monocytes % (Manual) 3, Eosinophils % ( Manual) 0, Basophils % (Manual) 0, Band Neutrophils 0, Platelet Estimate DecreasedL, Platelet Morphology Normal, Hypochromasia 3+, Anisocytosis 1+, Sodium Level 151H, Potassium Level 3.2L, Chloride Level 113H, Carbon Dioxide Level 30, Anion Gap 8, Blood Urea Nitrogen 42H, Creatinine 4.1H, Estimat Glomerular Filtration Rate , Glucose Level 211H, Uric Acid 4.9, Calcium Level 9.2, Phosphorus Level 1.9L, Magnesium Level 2.0, Total Bilirubin 1.8H, Direct Bilirubin 0.9H, Aspartate Amino Transf (AST/SGOT) 77H, Alanine Aminotransferase (ALT/SGPT) 15, Alkaline Phosphatase 184H, C-Reactive Protein, Quantitative 11.0H , Pro-B-Type Natriuretic Peptide 45419A, Total Protein 5.3L, Albumin 1.5L, Globulin 3.8, Albumin/Globulin Ratio 0.4L Height (Feet): 5 Height (Inches): 6.00 Weight (Pounds): 260 General Appearance: no apparent distress, lethargic Cardiovascular: normal rate Respiratory/Chest: decreased breath sounds Abdomen: distended Objective no other change ANDERS MOLINA Feb 03, 2017 12:04
[2017-02-03] MEDS ORDERED: KCl 10% 40mEq/30ml liquid NG ONE (12:30)
--- NOTE | 2017-02-03 13:12 | Diagnostic Imaging Report ---
Indication: Dyspnea Comparison: 02/02/17 A single view chest radiograph was obtained. Findings: Prominent pulmonary vascularity with normal heart size without demonstrated. Tubes and lines are stable. Impression: Probable improvement since yesterday with moderate to severe residual pulmonary edema noted
[2017-02-03] MEDS ORDERED: Sterile Water Irrig 1000ml IRRIG ONE (14:22)
[2017-02-03] MEDS ORDERED: Tubing IV Secondary IV ONE (14:22)
--- NOTE | 2017-02-03 15:18 | Internal Med Progress Note ---
Subjective Date of Service: Feb 03, 2017 Physician Name Katharina Pond Attending Physician Rl Tee MD Current Medications Medications (Trade) Dose Ordered Sig/Pavel Route PRN Reason Start Time Stop Time Status Last Admin Dose Admin Acetaminophen (Tylenol) 650 mg Q4H PRN ORAL T>100.5 01/21/17 14:30 02/15/17 14:29 Albuterol/ Ipratropium (DuoNeb 0.5-3(2.5)mg/3ml) 3 ml Q4H PRN HHN Shortness of Breath 01/31/17 11:15 02/05/17 11:14 Chlorhexidine Gluconate (Dianne-Hex 2%) 1 applic DAILY@2000 TOPIC 01/25/17 20:00 02/24/17 19:59 02/02/17 20:07 Clotrimazole (Lotrimin) 1 applic EVERY 12 HOURS TOPIC 01/21/17 21:00 02/18/17 13:59 02/03/17 09:30 Colistimethate Sodium (Colistin *inhalation use only*) 75 mg Q12HRT INH 01/29/17 22:00 02/05/17 21:59 02/03/17 10:43 Dextrose (Dextrose 50%) STAT PRN IV Hypoglycemia 01/27/17 07:45 02/26/17 07:44 Dopamine HCl/ Dextrose 250 ml @ 0 mls/hr Q24H IV 01/25/17 11:15 02/24/17 11:14 01/30/17 10:30 Ertapenem 0.5 gm/ Sodium Chloride 55 ml @ 110 mls/hr Q24H IVPB 02/02/17 21:00 02/07/17 20:59 02/02/17 21:03 Erythromycin (Jaya-Ped) 200 mg Q6HR ORAL 01/31/17 13:00 03/02/17 12:59 02/03/17 12:33 Insulin Aspart (NovoLOG) EVERY 6 HOURS SUBQ 01/27/17 18:00 02/26/17 11:29 02/03/17 12:34 Lactulose (Cephulac) 10 gm BID ORAL 01/23/17 09:00 02/18/17 12:59 02/03/17 09:30 Metoclopramide HCl (Reglan) 5 mg Q8H PRN IVP Nausea & Vomiting 01/29/17 11:30 02/28/17 11:29 01/31/17 11:46 Midodrine (Pro-Amatine) 10 mg Q8HR NG 02/03/17 14:00 03/05/17 13:59 Nitroglycerin (Ntg) 0.4 mg Q5MIN X 3 DOSES PRN SL Prn Chest Pain 01/21/17 14:30 02/15/17 14:29 Nystatin (Nystop Powder) 1 applic THREE TIMES A DAY TOPIC 01/22/17 13:00 02/21/17 12:59 02/03/17 12:33 Polyethylene Glycol (Miralax) 17 gm DAILYPRN PRN ORAL Constipation 01/21/17 14:00 02/17/17 13:59 Potassium Chloride (KCl 10% 40mEq Oral solution) 40 meq TWICE A DAY NG 02/01/17 09:45 03/03/17 09:44 02/03/17 09:30 Ranitidine HCl (Zantac) 150 mg DAILY NG 02/03/17 18:00 03/05/17 17:59 Rifaximin (Xifaxan) 550 mg EVERY 12 HOURS ORAL 01/29/17 12:00 02/05/17 11:59 02/03/17 09:31 Vancomycin HCl (Vancomycin) 125 mg BID NG 02/02/17 16:00 02/09/17 15:59 02/03/17 09:30 Allergies: Coded Allergies: PENICILLINS (Unverified Allergy, Unknown, 03/22/15) ROS Limited/Unobtainable: Yes Subjective 76 YO F admitted with altered mental status. Intubated and sedated. ICU . Cover for Int Med-Dr Tee. Objective Last Vital Signs Date Time Temp Pulse Resp B/P (MAP) Pulse Ox O2 Delivery O2 Flow Rate FiO2 02/03/17 14:00 72 20 114/54 95 Mechanical Ventilator 60 02/03/17 12:00 98.6 02/02/17 16:30 15.0 Laboratory Tests Test 02/03/17 05:00 White Blood Count 11.4 K/UL (4.8-10.8) H Red Blood Count 2.50 M/UL (4.20-5.40) L Hemoglobin 8.1 G/DL (12.0-16.0) L Hematocrit 24.6 % (37.0-47.0) L Mean Corpuscular Volume 98 FL (80-99) Mean Corpuscular Hemoglobin 32.5 PG (27.0-31.0) H Mean Corpuscular Hemoglobin Concent 33.1 G/DL (32.0-36.0) Red Cell Distribution Width 16.6 % (11.6-14.8) H Platelet Count 46 K/UL (150-450) L Mean Platelet Volume 11.2 FL (6.5-10.1) H Neutrophils (%) (Auto) % (45.0-75.0) Lymphocytes (%) (Auto) % (20.0-45.0) Monocytes (%) (Auto) % (1.0-10.0) Eosinophils (%) (Auto) % (0.0-3.0) Basophils (%) (Auto) % (0.0-2.0) Differential Total Cells Counted 100 Neutrophils % (Manual) 91 % (45-75) H Lymphocytes % (Manual) 6 % (20-45) L Monocytes % (Manual) 3 % (1-10) Eosinophils % (Manual) 0 % (0-3) Basophils % (Manual) 0 % (0-2) Band Neutrophils 0 % (0-8) Platelet Estimate Decreased L Platelet Morphology Normal Hypochromasia 3+ Anisocytosis 1+ Sodium Level 151 MMOL/L (136-145) H Potassium Level 3.2 MMOL/L (3.5-5.1) L Chloride Level 113 MMOL/L (98-107) H Carbon Dioxide Level 30 MMOL/L (21-32) Anion Gap 8 mmol/L (5-15) Blood Urea Nitrogen 42 mg/dL (7-18) H Creatinine 4.1 MG/DL (0.55-1.30) H Estimat Glomerular Filtration Rate mL/min (>60) Glucose Level 211 MG/DL (74-106) H Uric Acid 4.9 MG/DL (2.6-7.2) Calcium Level 9.2 MG/DL (8.5-10.1) Phosphorus Level 1.9 MG/DL (2.5-4.9) L Magnesium Level 2.0 MG/DL (1.8-2.4) Total Bilirubin 1.8 MG/DL (0.2-1.0) H Direct Bilirubin 0.9 MG/DL (0.0-0.3) H Aspartate Amino Transf (AST/SGOT) 77 U/L (15-37) H Alanine Aminotransferase (ALT/SGPT) 15 U/L (12-78) Alkaline Phosphatase 184 U/L (46-116) H C-Reactive Protein, Quantitative 11.0 mg/dL (0.00-0.90) H Pro-B-Type Natriuretic Peptide 46330 pg/mL (0-125) H Total Protein 5.3 G/DL (6.4-8.2) L Albumin 1.5 G/DL (3.4-5.0) L Globulin 3.8 g/dL Albumin/Globulin Ratio 0.4 (1.0-2.7) L Intake and Output 02/03/17 02/04/17 19:00 07:00 Intake Total 375 ml Output Total 5 ml Balance 370 ml Free Water 30 ml Tube Feeding 245 ml Other 100 ml Output Urine Total 5 ml Objective General Appearance: WD/WN, no apparent distress, moderate distress, obese EENT: PERRL/EOMI, normal ENT inspection Neck: non-tender, normal alignment, supple, normal inspection Cardiovascular: normal peripheral pulses, normal rate, regular rhythm, no gallop/murmur, no JVD Respiratory/Chest: Mechanical vent; chest wall non-tender, lungs with coarse upper air sounds, Bilat wheezes and rales, respiratory distress Abdomen: G-Tube; non tender, no organomegaly, no mass 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 Baumanii. See ID note. Continur ertaoenem and vanco per ID (2) CHF (congestive heart failure) Assessment & Plan: LVEF 60-65%. see cardiology note. (3) DM (diabetes mellitus) Assessment & Plan: Continue novolog sliding scale (4) Hypercholesteremia (5) HTN (hypertension) Assessment & Plan: Currently hypotensive. (6) Uncontrolled diabetes mellitus (7) Cirrhosis Assessment & Plan: see GI note. (8) Anemia Assessment & Plan: S/P transfusion 2 units PRBC (9) Altered mental status Assessment & Plan: Worsening. ICU status (10) Renal failure Assessment & Plan: Next hemodialysis 02/02/17. See nephrology note. (11) Respiratory failure Assessment & Plan: Due to CHF. Cont mech vent per pulmonary. Continue antibiotic per ID (12) Bradycardia Assessment & Plan: see cardiology note. (13) Hypotension Assessment & Plan: Continue dopamine KATHARINA POND Feb 03, 2017 15:18
--- NOTE | 2017-02-03 16:37 | Cardiac Electrophysiology PN ---
Assessment/Plan Assessment/Plan 1. Congestive heart failure due to diastolic dysfunction. Ejection fraction 60% to 65%. EKG NSR with low voltage QRS. On dialysis 2. Shock, resolved.Off Dopamine and on Abx 3. Bradycardia resolved, off dopamine. On midodrine 5 tid 4. Vent dependent respiratory failure. Family to decide terminal extubation vs tracheostomy. 5. Hyperlipidemia. 6. Cirrhosis 7. Anemia with hemoglobin of 8. 8. Hypernatremia resolved 9. DNR and DNI 10. ESRD on HD 11. DM DW RN Subjective Subjective In ICU unresponsive on Vent.Off pressors. DNR and DNI Objective Last 24 Hour Vital Signs Date Time Temp Pulse Resp B/P (MAP) Pulse Ox O2 Delivery O2 Flow Rate FiO2 02/03/17 15:00 70 20 110/52 100 Mechanical Ventilator 60 02/03/17 14:00 72 20 114/54 95 Mechanical Ventilator 60 02/03/17 13:20 75 20 60 02/03/17 13:00 75 20 105/57 100 Mechanical Ventilator 60 02/03/17 12:00 60 02/03/17 12:00 98.6 65 20 121/43 98 Mechanical Ventilator 60 02/03/17 12:00 65 02/03/17 11:15 105/33 02/03/17 11:00 68 20 105/33 93 Mechanical Ventilator 60 02/03/17 10:43 65 20 60 02/03/17 10:43 65 20 100 Mechanical Ventilator 02/03/17 10:43 41 20 98 Mechanical Ventilator 02/03/17 10:00 63 20 109/51 97 Mechanical Ventilator 60 02/03/17 09:08 62 20 60 02/03/17 09:00 68 18 129/52 96 Mechanical Ventilator 60 02/03/17 08:00 61 02/03/17 08:00 98.5 61 20 125/48 100 Mechanical Ventilator 60 02/03/17 08:00 60 02/03/17 07:00 67 18 125/47 97 Mechanical Ventilator 60 02/03/17 06:45 75 20 60 02/03/17 06:00 61 20 129/44 96 Mechanical Ventilator 60 02/03/17 05:00 62 20 134/46 100 Mechanical Ventilator 60 02/03/17 04:47 63 20 60 02/03/17 04:00 60 02/03/17 04:00 98.6 64 18 112/49 97 Mechanical Ventilator 60 02/03/17 04:00 62 02/03/17 03:30 62 20 60 02/03/17 03:00 60 18 100/61 97 Mechanical Ventilator 60 02/03/17 02:00 69 17 117/48 97 Mechanical Ventilator 60 02/03/17 01:30 60 20 60 02/03/17 01:00 69 18 119/51 99 Mechanical Ventilator 60 02/03/17 00:00 60 02/03/17 00:00 98.3 71 18 98/45 97 Mechanical Ventilator 60 02/03/17 00:00 67 02/02/17 23:29 71 20 60 02/02/17 23:00 70 20 106/49 99 Mechanical Ventilator 60 02/02/17 22:00 68 20 101/44 100 Mechanical Ventilator 60 02/02/17 21:30 78 20 100 Mechanical Ventilator 02/02/17 21:30 68 20 100 Mechanical Ventilator 02/02/17 21:19 79 20 60 02/02/17 21:00 74 20 110/46 92 Mechanical Ventilator 60 02/02/17 20:00 98.1 71 22 101/43 97 Mechanical Ventilator 60 02/02/17 20:00 60 02/02/17 20:00 76 02/02/17 19:40 Mechanical Ventilator 02/02/17 19:30 77 20 60 02/02/17 19:00 71 18 121/48 98 Mechanical Ventilator 60 02/02/17 18:00 72 18 111/44 98 Mechanical Ventilator 60 02/02/17 17:29 79 20 60 02/02/17 17:00 83 20 109/45 95 Mechanical Ventilator 60 Intake and Output 02/03/17 02/04/17 19:00 07:00 Intake Total 410 ml Output Total 5 ml Balance 405 ml Free Water 30 ml Tube Feeding 280 ml Other 100 ml Output Urine Total 5 ml Laboratory Tests Test 02/03/17 05:00 White Blood Count 11.4 K/UL (4.8-10.8) H Red Blood Count 2.50 M/UL (4.20-5.40) L Hemoglobin 8.1 G/DL (12.0-16.0) L Hematocrit 24.6 % (37.0-47.0) L Mean Corpuscular Volume 98 FL (80-99) Mean Corpuscular Hemoglobin 32.5 PG (27.0-31.0) H Mean Corpuscular Hemoglobin Concent 33.1 G/DL (32.0-36.0) Red Cell Distribution Width 16.6 % (11.6-14.8) H Platelet Count 46 K/UL (150-450) L Mean Platelet Volume 11.2 FL (6.5-10.1) H Neutrophils (%) (Auto) % (45.0-75.0) Lymphocytes (%) (Auto) % (20.0-45.0) Monocytes (%) (Auto) % (1.0-10.0) Eosinophils (%) (Auto) % (0.0-3.0) Basophils (%) (Auto) % (0.0-2.0) Differential Total Cells Counted 100 Neutrophils % (Manual) 91 % (45-75) H Lymphocytes % (Manual) 6 % (20-45) L Monocytes % (Manual) 3 % (1-10) Eosinophils % (Manual) 0 % (0-3) Basophils % (Manual) 0 % (0-2) Band Neutrophils 0 % (0-8) Platelet Estimate Decreased L Platelet Morphology Normal Hypochromasia 3+ Anisocytosis 1+ Sodium Level 151 MMOL/L (136-145) H Potassium Level 3.2 MMOL/L (3.5-5.1) L Chloride Level 113 MMOL/L (98-107) H Carbon Dioxide Level 30 MMOL/L (21-32) Anion Gap 8 mmol/L (5-15) Blood Urea Nitrogen 42 mg/dL (7-18) H Creatinine 4.1 MG/DL (0.55-1.30) H Estimat Glomerular Filtration Rate mL/min (>60) Glucose Level 211 MG/DL (74-106) H Uric Acid 4.9 MG/DL (2.6-7.2) Calcium Level 9.2 MG/DL (8.5-10.1) Phosphorus Level 1.9 MG/DL (2.5-4.9) L Magnesium Level 2.0 MG/DL (1.8-2.4) Total Bilirubin 1.8 MG/DL (0.2-1.0) H Direct Bilirubin 0.9 MG/DL (0.0-0.3) H Aspartate Amino Transf (AST/SGOT) 77 U/L (15-37) H Alanine Aminotransferase (ALT/SGPT) 15 U/L (12-78) Alkaline Phosphatase 184 U/L (46-116) H C-Reactive Protein, Quantitative 11.0 mg/dL (0.00-0.90) H Pro-B-Type Natriuretic Peptide 89100 pg/mL (0-125) H Total Protein 5.3 G/DL (6.4-8.2) L Albumin 1.5 G/DL (3.4-5.0) L Globulin 3.8 g/dL Albumin/Globulin Ratio 0.4 (1.0-2.7) L Objective HEAD AND NECK: No JVD.Orally intubated. Right IJ Maharkar Catheter LUNGS: Coarse rhonchi CARDIOVASCULAR: Regular S1 and S2 with no gallop or murmur. ABDOMEN: Soft and nontender and obese. EXTREMITIES: 1+ pitting edema. DEAN SHAW Feb 03, 2017 16:37
--- NOTE | 2017-02-03 16:56 | General Progress Note ---
Assessment/Plan Status: unchanged Assessment/Plan encephalopathy Subjective Neurologic/Psychiatric: Reports: anxiety Allergies: Coded Allergies: PENICILLINS (Unverified Allergy, Unknown, 03/22/15) Subjective waxing and waning of consciousness.agitated at times unchanged since previous encounter Objective Last 24 Hour Vital Signs Date Time Temp Pulse Resp B/P (MAP) Pulse Ox O2 Delivery O2 Flow Rate FiO2 02/03/17 16:00 60 02/03/17 16:00 98.5 64 20 108/50 100 Mechanical Ventilator 60 02/03/17 16:00 64 02/03/17 15:00 70 20 110/52 100 Mechanical Ventilator 60 02/03/17 14:00 72 20 114/54 95 Mechanical Ventilator 60 02/03/17 13:20 75 20 60 02/03/17 13:00 75 20 105/57 100 Mechanical Ventilator 60 02/03/17 12:00 60 02/03/17 12:00 98.6 65 20 121/43 98 Mechanical Ventilator 60 02/03/17 12:00 65 02/03/17 11:15 105/33 02/03/17 11:00 68 20 105/33 93 Mechanical Ventilator 60 02/03/17 10:43 65 20 60 02/03/17 10:43 65 20 100 Mechanical Ventilator 02/03/17 10:43 41 20 98 Mechanical Ventilator 02/03/17 10:00 63 20 109/51 97 Mechanical Ventilator 60 02/03/17 09:08 62 20 60 02/03/17 09:00 68 18 129/52 96 Mechanical Ventilator 60 02/03/17 08:00 61 02/03/17 08:00 98.5 61 20 125/48 100 Mechanical Ventilator 60 02/03/17 08:00 60 02/03/17 07:00 67 18 125/47 97 Mechanical Ventilator 60 02/03/17 06:45 75 20 60 02/03/17 06:00 61 20 129/44 96 Mechanical Ventilator 60 02/03/17 05:00 62 20 134/46 100 Mechanical Ventilator 60 02/03/17 04:47 63 20 60 02/03/17 04:00 60 02/03/17 04:00 98.6 64 18 112/49 97 Mechanical Ventilator 60 02/03/17 04:00 62 02/03/17 03:30 62 20 60 02/03/17 03:00 60 18 100/61 97 Mechanical Ventilator 60 02/03/17 02:00 69 17 117/48 97 Mechanical Ventilator 60 02/03/17 01:30 60 20 60 02/03/17 01:00 69 18 119/51 99 Mechanical Ventilator 60 02/03/17 00:00 60 02/03/17 00:00 98.3 71 18 98/45 97 Mechanical Ventilator 60 02/03/17 00:00 67 02/02/17 23:29 71 20 60 02/02/17 23:00 70 20 106/49 99 Mechanical Ventilator 60 02/02/17 22:00 68 20 101/44 100 Mechanical Ventilator 60 02/02/17 21:30 78 20 100 Mechanical Ventilator 02/02/17 21:30 68 20 100 Mechanical Ventilator 02/02/17 21:19 79 20 60 02/02/17 21:00 74 20 110/46 92 Mechanical Ventilator 60 02/02/17 20:00 98.1 71 22 101/43 97 Mechanical Ventilator 60 02/02/17 20:00 60 02/02/17 20:00 76 02/02/17 19:40 Mechanical Ventilator 02/02/17 19:30 77 20 60 02/02/17 19:00 71 18 121/48 98 Mechanical Ventilator 60 02/02/17 18:00 72 18 111/44 98 Mechanical Ventilator 60 02/02/17 17:29 79 20 60 02/02/17 17:00 83 20 109/45 95 Mechanical Ventilator 60 Intake and Output 02/03/17 02/04/17 19:00 07:00 Intake Total 445 ml Output Total 5 ml Balance 440 ml Free Water 30 ml Tube Feeding 315 ml Other 100 ml Output Urine Total 5 ml Laboratory Tests 02/03/17 05:00: White Blood Count 11.4H, Red Blood Count 2.50L, Hemoglobin 8.1L, Hematocrit 24.6L, Mean Corpuscular Volume 98, Mean Corpuscular Hemoglobin 32.5H, Mean Corpuscular Hemoglobin Concent 33.1, Red Cell Distribution Width 16.6H, Platelet Count 46L, Mean Platelet Volume 11.2H, Neutrophils (%) (Auto) , Lymphocytes (%) (Auto) , Monocytes (%) (Auto) , Eosinophils (%) (Auto) , Basophils (%) (Auto) , Differential Total Cells Counted 100, Neutrophils % ( Manual) 91H, Lymphocytes % (Manual) 6L, Monocytes % (Manual) 3, Eosinophils % ( Manual) 0, Basophils % (Manual) 0, Band Neutrophils 0, Platelet Estimate DecreasedL, Platelet Morphology Normal, Hypochromasia 3+, Anisocytosis 1+, Sodium Level 151H, Potassium Level 3.2L, Chloride Level 113H, Carbon Dioxide Level 30, Anion Gap 8, Blood Urea Nitrogen 42H, Creatinine 4.1H, Estimat Glomerular Filtration Rate , Glucose Level 211H, Uric Acid 4.9, Calcium Level 9.2, Phosphorus Level 1.9L, Magnesium Level 2.0, Total Bilirubin 1.8H, Direct Bilirubin 0.9H, Aspartate Amino Transf (AST/SGOT) 77H, Alanine Aminotransferase (ALT/SGPT) 15, Alkaline Phosphatase 184H, C-Reactive Protein, Quantitative 11.0H , Pro-B-Type Natriuretic Peptide 67035M, Total Protein 5.3L, Albumin 1.5L, Globulin 3.8, Albumin/Globulin Ratio 0.4L Height (Feet): 5 Height (Inches): 6.00 Weight (Pounds): 260 General Appearance: lethargic, morbidly obese Neurologic: disoriented, unresponsive Oj Medel M.D. Feb 03, 2017 16:56
--- NOTE | 2017-02-03 19:24 | General Progress Note ---
Assessment/Plan Assessment/Plan ASSESSMENT AND RECOMMENDATIONS 1.Thrombocytopenia 2/2 sepsis --> improving --> give plts if below 10k or if below 20k and febrile --> ID following 2. Coagulopathy secondary to underlying liver cirrhosis 3. Thrombocytopenia secondary to underlying splenomegaly. 4. Anemia 2/2 chronic disease --> s/p transfusion --> Watch HH, transfuse if below 8 5. Leukocytosis secondary to underlying infection. On abx per id service 6. Sepsis 2/2 UTI 7. Altered mental status 8. RAMYA on CKD,on hemodialysis Subjective ROS Limited/Unobtainable: Yes Allergies: Coded Allergies: PENICILLINS (Unverified Allergy, Unknown, 03/22/15) Subjective remains on vent, unresponsive Objective Last 24 Hour Vital Signs Date Time Temp Pulse Resp B/P (MAP) Pulse Ox O2 Delivery O2 Flow Rate FiO2 02/03/17 19:00 86 20 118/46 98 Mechanical Ventilator 60 02/03/17 18:55 87 21 60 02/03/17 18:00 71 20 98/49 98 Mechanical Ventilator 60 02/03/17 17:03 76 20 60 02/03/17 17:00 74 20 113/59 100 Mechanical Ventilator 60 02/03/17 16:00 60 02/03/17 16:00 98.5 64 20 108/50 100 Mechanical Ventilator 60 02/03/17 16:00 64 02/03/17 15:25 75 20 60 02/03/17 15:00 70 20 110/52 100 Mechanical Ventilator 60 02/03/17 14:00 72 20 114/54 95 Mechanical Ventilator 60 02/03/17 13:20 75 20 60 02/03/17 13:00 75 20 105/57 100 Mechanical Ventilator 60 02/03/17 12:00 60 02/03/17 12:00 98.6 65 20 121/43 98 Mechanical Ventilator 60 02/03/17 12:00 65 02/03/17 11:15 105/33 02/03/17 11:00 68 20 105/33 93 Mechanical Ventilator 60 02/03/17 10:43 65 20 60 02/03/17 10:43 65 20 100 Mechanical Ventilator 02/03/17 10:43 41 20 98 Mechanical Ventilator 02/03/17 10:00 63 20 109/51 97 Mechanical Ventilator 60 02/03/17 09:08 62 20 60 02/03/17 09:00 68 18 129/52 96 Mechanical Ventilator 60 02/03/17 08:00 61 02/03/17 08:00 98.5 61 20 125/48 100 Mechanical Ventilator 60 02/03/17 08:00 60 02/03/17 07:00 67 18 125/47 97 Mechanical Ventilator 60 02/03/17 06:45 75 20 60 02/03/17 06:00 61 20 129/44 96 Mechanical Ventilator 60 02/03/17 05:00 62 20 134/46 100 Mechanical Ventilator 60 02/03/17 04:47 63 20 60 02/03/17 04:00 60 02/03/17 04:00 98.6 64 18 112/49 97 Mechanical Ventilator 60 02/03/17 04:00 62 02/03/17 03:30 62 20 60 02/03/17 03:00 60 18 100/61 97 Mechanical Ventilator 60 02/03/17 02:00 69 17 117/48 97 Mechanical Ventilator 60 02/03/17 01:30 60 20 60 02/03/17 01:00 69 18 119/51 99 Mechanical Ventilator 60 02/03/17 00:00 60 02/03/17 00:00 98.3 71 18 98/45 97 Mechanical Ventilator 60 02/03/17 00:00 67 02/02/17 23:29 71 20 60 02/02/17 23:00 70 20 106/49 99 Mechanical Ventilator 60 02/02/17 22:00 68 20 101/44 100 Mechanical Ventilator 60 02/02/17 21:30 78 20 100 Mechanical Ventilator 02/02/17 21:30 68 20 100 Mechanical Ventilator 02/02/17 21:19 79 20 60 02/02/17 21:00 74 20 110/46 92 Mechanical Ventilator 60 02/02/17 20:00 98.1 71 22 101/43 97 Mechanical Ventilator 60 02/02/17 20:00 60 02/02/17 20:00 76 02/02/17 19:40 Mechanical Ventilator 02/02/17 19:30 77 20 60 Intake and Output 02/03/17 02/04/17 19:00 07:00 Intake Total 550 ml Output Total 405 ml Balance 145 ml Free Water 30 ml Tube Feeding 420 ml Other 100 ml Output Urine Total 5 ml Stool Total 400 ml Laboratory Tests 02/03/17 05:00: White Blood Count 11.4H, Red Blood Count 2.50L, Hemoglobin 8.1L, Hematocrit 24.6L, Mean Corpuscular Volume 98, Mean Corpuscular Hemoglobin 32.5H, Mean Corpuscular Hemoglobin Concent 33.1, Red Cell Distribution Width 16.6H, Platelet Count 46L, Mean Platelet Volume 11.2H, Neutrophils (%) (Auto) , Lymphocytes (%) (Auto) , Monocytes (%) (Auto) , Eosinophils (%) (Auto) , Basophils (%) (Auto) , Differential Total Cells Counted 100, Neutrophils % ( Manual) 91H, Lymphocytes % (Manual) 6L, Monocytes % (Manual) 3, Eosinophils % ( Manual) 0, Basophils % (Manual) 0, Band Neutrophils 0, Platelet Estimate DecreasedL, Platelet Morphology Normal, Hypochromasia 3+, Anisocytosis 1+, Sodium Level 151H, Potassium Level 3.2L, Chloride Level 113H, Carbon Dioxide Level 30, Anion Gap 8, Blood Urea Nitrogen 42H, Creatinine 4.1H, Estimat Glomerular Filtration Rate , Glucose Level 211H, Uric Acid 4.9, Calcium Level 9.2, Phosphorus Level 1.9L, Magnesium Level 2.0, Total Bilirubin 1.8H, Direct Bilirubin 0.9H, Aspartate Amino Transf (AST/SGOT) 77H, Alanine Aminotransferase (ALT/SGPT) 15, Alkaline Phosphatase 184H, C-Reactive Protein, Quantitative 11.0H , Pro-B-Type Natriuretic Peptide 17509D, Total Protein 5.3L, Albumin 1.5L, Globulin 3.8, Albumin/Globulin Ratio 0.4L Height (Feet): 5 Height (Inches): 6.00 Weight (Pounds): 260 General Appearance: no apparent distress EENT: normal ENT inspection Neck: normal alignment Cardiovascular: normal peripheral pulses Pelvis: no cerv. motion tender Edema: trace edema Chriss Pat Feb 03, 2017 19:24
[2017-02-03] MEDS: Dyna-Hex 2% Top Sol 2oz TOPIC SCH (20:22)
[2017-02-03] MEDS: Ertapenem 0.5 GM in NS 55 ML IVPB SCH (20:37)
[2017-02-04] VITALS (24 sets, daily range): BP systolic 82–144; BP diastolic 39–72
[2017-02-04] MEDS: NovoLOG Insulin Flexpen SUBQ SCH ×5 (00:01→23:46)
[2017-02-04] MEDS: Erythromycin Ethylsuccinate 200mg/5ml Susp ORAL SCH ×2 (05:11)
[2017-02-04 05:25] LABS: HEMATOCRIT 24.8 % (37.0-47.0); HEMOGLOBIN 7.9 G/DL (12.0-16.0); MEAN CORPUSCULAR VOLUME 101 FL (80-99); PLATELET COUNT 61 K/UL (150-450); RED BLOOD COUNT 2.46 M/UL (4.20-5.40); RED CELL DISTRIBUTION WIDTH 17.4 % (11.6-14.8); WHITE BLOOD COUNT 11.3 K/UL (4.8-10.8)
[2017-02-04] MEDS: Midodrine 10mg tab NG SCH ×3 (06:00→21:20)
[2017-02-04 06:04] LABS: ALANINE AMINOTRANSFERASE 13 U/L (12-78); ALBUMIN 1.5 G/DL (3.4-5.0); ALBUMIN/GLOBULIN RATIO 0.4 (1.0-2.7); ALKALINE PHOSPHATASE 193 U/L (46-116); ANION GAP 7 mmol/L (5-15); ASPARTATE AMINO TRANSFERASE 54 U/L (15-37); BILIRUBIN,TOTAL 1.9 MG/DL (0.2-1.0); BLOOD UREA NITROGEN 53 mg/dL (7-18); CALCIUM 9.5 MG/DL (8.5-10.1); CARBON DIOXIDE 28 MMOL/L (21-32); CHLORIDE 116 MMOL/L (98-107); CREATININE 5.1 MG/DL (0.55-1.30); PHOSPHORUS 1.6 MG/DL (2.5-4.9); POTASSIUM 3.9 MMOL/L (3.5-5.1); SODIUM 151 MMOL/L (136-145)
[2017-02-04 06:34] LABS: BILIRUBIN,DIRECT 1.2 MG/DL (0.0-0.3)
--- NOTE | 2017-02-04 09:03 | General Progress Note ---
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 - hypernatremia Recommendations - continue Lactulose and Xifaxan - Continue TF - follow labs - HD/lytes per Renal - free water - d/c erythro due to excessive diarrhea Subjective Allergies: Coded Allergies: PENICILLINS (Unverified Allergy, Unknown, 03/22/15) Subjective above noted d/w RN tolerating TF more confused Objective Last 24 Hour Vital Signs Date Time Temp Pulse Resp B/P (MAP) Pulse Ox O2 Delivery O2 Flow Rate FiO2 02/04/17 08:00 98.8 86 20 100/47 100 Mechanical Ventilator 60 02/04/17 08:00 86 02/04/17 08:00 60 02/04/17 07:14 91 21 60 02/04/17 07:00 89 20 106/47 100 Mechanical Ventilator 60 02/04/17 06:00 95 20 134/49 100 Mechanical Ventilator 60 02/04/17 05:20 Mechanical Ventilator 60 02/04/17 05:13 76 20 60 02/04/17 05:00 72 20 121/44 100 Mechanical Ventilator 60 02/04/17 05:00 98.4 78 20 140/70 99 Mechanical Ventilator 60 02/04/17 04:10 99.0 02/04/17 04:00 105 02/04/17 04:00 60 02/04/17 04:00 99.0 71 20 94/39 98 Mechanical Ventilator 60 02/04/17 03:16 99 21 60 02/04/17 03:00 75 20 121/56 100 Mechanical Ventilator 60 02/04/17 02:00 99 20 128/54 100 Mechanical Ventilator 60 02/04/17 01:11 82 20 60 02/04/17 01:00 82 18 125/47 99 Mechanical Ventilator 60 02/04/17 00:00 98.5 82 20 116/48 100 Mechanical Ventilator 60 02/04/17 00:00 60 02/04/17 00:00 80 02/03/17 23:14 76 20 60 02/03/17 23:00 82 17 115/43 99 Mechanical Ventilator 60 02/03/17 22:00 78 17 114/46 100 Mechanical Ventilator 60 02/03/17 21:24 79 20 100 Mechanical Ventilator 60 02/03/17 21:11 77 20 99 Mechanical Ventilator 60 02/03/17 21:11 77 20 60 02/03/17 21:11 60 02/03/17 21:00 76 20 119/42 98 Mechanical Ventilator 60 02/03/17 20:00 86 02/03/17 20:00 60 02/03/17 20:00 98.6 77 20 151/63 98 Mechanical Ventilator 60 02/03/17 19:00 86 20 118/46 98 Mechanical Ventilator 60 02/03/17 18:55 87 21 60 02/03/17 18:00 71 20 98/49 98 Mechanical Ventilator 60 02/03/17 17:03 76 20 60 02/03/17 17:00 74 20 113/59 100 Mechanical Ventilator 60 02/03/17 16:00 60 02/03/17 16:00 98.5 64 20 108/50 100 Mechanical Ventilator 60 02/03/17 16:00 64 02/03/17 15:25 75 20 60 02/03/17 15:00 70 20 110/52 100 Mechanical Ventilator 60 02/03/17 14:00 72 20 114/54 95 Mechanical Ventilator 60 02/03/17 13:20 75 20 60 02/03/17 13:00 75 20 105/57 100 Mechanical Ventilator 60 02/03/17 12:00 60 02/03/17 12:00 98.6 65 20 121/43 98 Mechanical Ventilator 60 02/03/17 12:00 65 02/03/17 11:15 105/33 02/03/17 11:00 68 20 105/33 93 Mechanical Ventilator 60 02/03/17 10:43 65 20 60 02/03/17 10:43 65 20 100 Mechanical Ventilator 02/03/17 10:43 41 20 98 Mechanical Ventilator 02/03/17 10:00 63 20 109/51 97 Mechanical Ventilator 60 02/03/17 09:08 62 20 60 02/03/17 09:00 68 18 129/52 96 Mechanical Ventilator 60 Intake and Output 02/04/17 02/05/17 19:00 07:00 Intake Total 35 ml Output Total 0 ml Balance 35 ml Tube Feeding 35 ml Output Urine Total 0 ml Laboratory Tests 02/04/17 04:00: White Blood Count 11.3H, Red Blood Count 2.46L, Hemoglobin 7.9L, Hematocrit 24.8L, Mean Corpuscular Volume 101H, Mean Corpuscular Hemoglobin 32.1H, Mean Corpuscular Hemoglobin Concent 31.8L, Red Cell Distribution Width 17.4H, Platelet Count 61L, Mean Platelet Volume 10.2H, Neutrophils (%) (Auto) , Lymphocytes (%) (Auto) , Monocytes (%) (Auto) , Eosinophils (%) (Auto) , Basophils (%) (Auto) , Neutrophils % (Manual) [Pending], Lymphocytes % (Manual) [Pending], Platelet Estimate [Pending], Platelet Morphology [Pending], Sodium Level 151H, Potassium Level 3.9, Chloride Level 116H, Carbon Dioxide Level 28, Anion Gap 7, Blood Urea Nitrogen 53H, Creatinine 5.1H, Estimat Glomerular Filtration Rate , Glucose Level 356#H, Calcium Level 9.5, Phosphorus Level 1.6L , Magnesium Level 2.3, Total Bilirubin 1.9H, Direct Bilirubin 1.2H, Aspartate Amino Transf (AST/SGOT) 54H, Alanine Aminotransferase (ALT/SGPT) 13, Alkaline Phosphatase 193H, Total Protein 5.3L, Albumin 1.5L, Globulin 3.8, Albumin/ Globulin Ratio 0.4L Height (Feet): 5 Height (Inches): 6.00 Weight (Pounds): 272 Objective Obese WW NCAT, (+) ETT and NGT supple CTA RRR soft ND NT (+) edema KIERSTEN Ayon Feb 04, 2017 09:03
[2017-02-04] MEDS: Colistin for inhalation INH SCH ×2 (09:07→21:12)
[2017-02-04] MEDS: KCl 10% 40mEq/30ml liquid NG SCH ×2 (09:34→18:04)
[2017-02-04] MEDS: Lactulose 10gm/15ml UDC ORAL SCH ×2 (09:35→18:04)
[2017-02-04] MEDS: Vancomycin oral 125mg/2.5ml NG SCH ×2 (09:36→18:04)
[2017-02-04] MEDS: Nystatin Powder 100,000 units/gm 15gm TOPIC SCH ×3 (09:36→18:05)
--- NOTE | 2017-02-04 10:46 | Pulmonolgy Critical Care Note ---
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 Respiratory: monitor respiratory rate, adjust FIO2, CXR Cardiac: continue to monitor HR/BP Renal: F/U I&O, keep IV fluid Infectious Disease: check cultures Gastrointestinal: continue feedings/current rate, hold feedings Endocrine: check TSH, check HgA1C, continue sliding scale insulin Hematologic: transfuse if hgb<8.5 Neurologic: PRN Ativan, PRN Morphine, keep patient comfortable Affect: PRN ativan Prophylaxis: Protonix Notes Reviewed: digital forensics examiner Discussed with: nurses, consultants, home health care case managermanager federal - Objective Last 24 Hour Vital Signs Date Time Temp Pulse Resp B/P (MAP) Pulse Ox O2 Delivery O2 Flow Rate FiO2 02/04/17 09:07 91 20 99 Mechanical Ventilator 60 02/04/17 09:00 Mechanical Ventilator 60 02/04/17 09:00 98.8 96 22 96/50 99 Mechanical Ventilator 60 02/04/17 08:58 91 23 60 02/04/17 08:00 98.8 86 20 100/47 100 Mechanical Ventilator 60 02/04/17 08:00 86 02/04/17 08:00 60 02/04/17 07:14 91 21 60 02/04/17 07:00 89 20 106/47 100 Mechanical Ventilator 60 02/04/17 06:00 95 20 134/49 100 Mechanical Ventilator 60 02/04/17 05:20 Mechanical Ventilator 60 02/04/17 05:13 76 20 60 02/04/17 05:00 72 20 121/44 100 Mechanical Ventilator 60 02/04/17 05:00 98.4 78 20 140/70 99 Mechanical Ventilator 60 02/04/17 04:10 99.0 02/04/17 04:00 105 02/04/17 04:00 60 02/04/17 04:00 99.0 71 20 94/39 98 Mechanical Ventilator 60 02/04/17 03:16 99 21 60 02/04/17 03:00 75 20 121/56 100 Mechanical Ventilator 60 02/04/17 02:00 99 20 128/54 100 Mechanical Ventilator 60 02/04/17 01:11 82 20 60 10/18/17 01:00 82 18 125/47 99 Mechanical Ventilator 60 02/04/17 00:00 98.5 82 20 116/48 100 Mechanical Ventilator 60 02/04/17 00:00 60 02/04/17 00:00 80 02/03/17 23:14 76 20 60 02/03/17 23:00 82 17 115/43 99 Mechanical Ventilator 60 02/03/17 22:00 78 17 114/46 100 Mechanical Ventilator 60 02/03/17 21:24 79 20 100 Mechanical Ventilator 60 02/03/17 21:11 77 20 99 Mechanical Ventilator 60 02/03/17 21:11 77 20 60 02/03/17 21:11 60 02/03/17 21:00 76 20 119/42 98 Mechanical Ventilator 60 02/03/17 20:00 86 02/03/17 20:00 60 02/03/17 20:00 98.6 77 20 151/63 98 Mechanical Ventilator 60 02/03/17 19:00 86 20 118/46 98 Mechanical Ventilator 60 02/03/17 18:55 87 21 60 02/03/17 18:00 71 20 98/49 98 Mechanical Ventilator 60 02/03/17 17:03 76 20 60 02/03/17 17:00 74 20 113/59 100 Mechanical Ventilator 60 02/03/17 16:00 60 02/03/17 16:00 98.5 64 20 108/50 100 Mechanical Ventilator 60 02/03/17 16:00 64 02/03/17 15:25 75 20 60 02/03/17 15:00 70 20 110/52 100 Mechanical Ventilator 60 02/03/17 14:00 72 20 114/54 95 Mechanical Ventilator 60 02/03/17 13:20 75 20 60 02/03/17 13:00 75 20 105/57 100 Mechanical Ventilator 60 02/03/17 12:00 60 02/03/17 12:00 98.6 65 20 121/43 98 Mechanical Ventilator 60 02/03/17 12:00 65 02/03/17 11:15 105/33 02/03/17 11:00 68 20 105/33 93 Mechanical Ventilator 60 Status: awake Condition: critical HEENT: atraumatic Lungs: clear Heart: HR/BP stable Abdomen: soft, active bowel sounds Extremities: no C/C/E, edema Decubiti: location Accucheck: 357 Critical Care - Subjective ROS Limited/Unobtainable: No ICU Day: 12 Intubation Day: 12 Interval Events: got dialyzed today Condition: critical EKG Rhythm: Sinus Rhythm FI02: 60 Vent Support Breath Rate: 20 Vent Support Mode: AC Vent Tidal Volume: 700 Sputum Amount: Small PEEP: 0.0 PIP: 49 Fluids: none Tube Feeding Amount: 35 I&O: Intake and Output 02/04/17 02/05/17 19:00 07:00 Intake Total 35 ml Output Total 3100 ml Balance -3065 ml Tube Feeding 35 ml Output Urine Total 0 ml Hemodialysis UF 3100 ml CXR: no gonzálezne ET-Tube: 7.0 ET Position: 21 Labs: Laboratory Tests Test 02/04/17 04:00 White Blood Count 11.3 K/UL (4.8-10.8) H Red Blood Count 2.46 M/UL (4.20-5.40) L Hemoglobin 7.9 G/DL (12.0-16.0) L Hematocrit 24.8 % (37.0-47.0) L Mean Corpuscular Volume 101 FL (80-99) H Mean Corpuscular Hemoglobin 32.1 PG (27.0-31.0) H Mean Corpuscular Hemoglobin Concent 31.8 G/DL (32.0-36.0) L Red Cell Distribution Width 17.4 % (11.6-14.8) H Platelet Count 61 K/UL (150-450) L Mean Platelet Volume 10.2 FL (6.5-10.1) H Neutrophils (%) (Auto) % (45.0-75.0) Lymphocytes (%) (Auto) % (20.0-45.0) Monocytes (%) (Auto) % (1.0-10.0) Eosinophils (%) (Auto) % (0.0-3.0) Basophils (%) (Auto) % (0.0-2.0) Differential Total Cells Counted 100 Neutrophils % (Manual) 82 % (45-75) H Lymphocytes % (Manual) 9 % (20-45) L Monocytes % (Manual) 3 % (1-10) Eosinophils % (Manual) 4 % (0-3) H Basophils % (Manual) 0 % (0-2) Band Neutrophils 2 % (0-8) Platelet Estimate Decreased L Platelet Morphology Normal Hypochromasia 1+ Anisocytosis 1+ Macrocytosis 1+ Sodium Level 151 MMOL/L (136-145) H Potassium Level 3.9 MMOL/L (3.5-5.1) Chloride Level 116 MMOL/L (98-107) H Carbon Dioxide Level 28 MMOL/L (21-32) Anion Gap 7 mmol/L (5-15) Blood Urea Nitrogen 53 mg/dL (7-18) H Creatinine 5.1 MG/DL (0.55-1.30) H Estimat Glomerular Filtration Rate mL/min (>60) Glucose Level 356 MG/DL (74-106) #H Calcium Level 9.5 MG/DL (8.5-10.1) Phosphorus Level 1.6 MG/DL (2.5-4.9) L Magnesium Level 2.3 MG/DL (1.8-2.4) Total Bilirubin 1.9 MG/DL (0.2-1.0) H Direct Bilirubin 1.2 MG/DL (0.0-0.3) H Aspartate Amino Transf (AST/SGOT) 54 U/L (15-37) H Alanine Aminotransferase (ALT/SGPT) 13 U/L (12-78) Alkaline Phosphatase 193 U/L (46-116) H Total Protein 5.3 G/DL (6.4-8.2) L Albumin 1.5 G/DL (3.4-5.0) L Globulin 3.8 g/dL Albumin/Globulin Ratio 0.4 (1.0-2.7) L DIONI TRIANA Feb 04, 2017 10:46
[2017-02-04] MEDS: DOPamine 400mg/250ml 250 ML IV SCH (11:15)
--- NOTE | 2017-02-04 11:41 | Internal Med Progress Note ---
Subjective Date of Service: Feb 04, 2017 Physician Name Katharina Pond Attending Physician Rl Tee MD Current Medications Medications (Trade) Dose Ordered Sig/Pavel Route PRN Reason Start Time Stop Time Status Last Admin Dose Admin Acetaminophen (Tylenol) 650 mg Q4H PRN ORAL T>100.5 01/21/17 14:30 02/15/17 14:29 02/04/17 09:37 Albuterol/ Ipratropium (DuoNeb 0.5-3(2.5)mg/3ml) 3 ml Q4H PRN HHN Shortness of Breath 01/31/17 11:15 02/05/17 11:14 Chlorhexidine Gluconate (Dianne-Hex 2%) 1 applic DAILY@2000 TOPIC 01/25/17 20:00 02/24/17 19:59 02/03/17 20:22 Clotrimazole (Lotrimin) 1 applic EVERY 12 HOURS TOPIC 01/21/17 21:00 02/18/17 13:59 02/04/17 09:36 Colistimethate Sodium (Colistin *inhalation use only*) 75 mg Q12HRT INH 01/29/17 22:00 02/05/17 21:59 02/04/17 09:07 Dextrose (Dextrose 50%) STAT PRN IV Hypoglycemia 01/27/17 07:45 02/26/17 07:44 Dopamine HCl/ Dextrose 250 ml @ 0 mls/hr Q24H IV 01/25/17 11:15 02/24/17 11:14 01/30/17 10:30 Ertapenem 0.5 gm/ Sodium Chloride 55 ml @ 110 mls/hr Q24H IVPB 02/02/17 21:00 02/07/17 20:59 02/03/17 20:37 Insulin Aspart (NovoLOG) EVERY 6 HOURS SUBQ 01/27/17 18:00 02/26/17 11:29 02/04/17 05:12 Lactulose (Cephulac) 10 gm BID ORAL 01/23/17 09:00 02/18/17 12:59 02/04/17 09:35 Metoclopramide HCl (Reglan) 5 mg Q8H PRN IVP Nausea & Vomiting 01/29/17 11:30 02/28/17 11:29 01/31/17 11:46 Midodrine (Pro-Amatine) 10 mg Q8HR NG 02/03/17 14:00 03/05/17 13:59 Nitroglycerin (Ntg) 0.4 mg Q5MIN X 3 DOSES PRN SL Prn Chest Pain 01/21/17 14:30 02/15/17 14:29 Nystatin (Nystop Powder) 1 applic THREE TIMES A DAY TOPIC 01/22/17 13:00 02/21/17 12:59 02/04/17 09:36 Potassium Chloride (KCl 10% 40mEq Oral solution) 40 meq TWICE A DAY NG 02/01/17 09:45 03/03/17 09:44 02/04/17 09:34 Ranitidine HCl (Zantac) 150 mg DAILY NG 02/03/17 18:00 03/05/17 17:59 02/04/17 09:00 Rifaximin (Xifaxan) 550 mg EVERY 12 HOURS ORAL 01/29/17 12:00 02/05/17 11:59 02/04/17 09:35 Vancomycin HCl (Vancomycin) 125 mg BID NG 02/02/17 16:00 02/09/17 15:59 02/04/17 09:36 Allergies: Coded Allergies: PENICILLINS (Unverified Allergy, Unknown, 03/22/15) ROS Limited/Unobtainable: Yes Subjective 76 YO F admitted with altered mental status. Intubated and sedated. ICU . Cover for Int Med-Dr Tee. Await tracheostomy Objective Last Vital Signs Date Time Temp Pulse Resp B/P (MAP) Pulse Ox O2 Delivery O2 Flow Rate FiO2 02/04/17 11:00 74 20 100/48 100 Mechanical Ventilator 60 02/04/17 09:00 98.8 02/02/17 16:30 15.0 Laboratory Tests Test 02/04/17 04:00 White Blood Count 11.3 K/UL (4.8-10.8) H Red Blood Count 2.46 M/UL (4.20-5.40) L Hemoglobin 7.9 G/DL (12.0-16.0) L Hematocrit 24.8 % (37.0-47.0) L Mean Corpuscular Volume 101 FL (80-99) H Mean Corpuscular Hemoglobin 32.1 PG (27.0-31.0) H Mean Corpuscular Hemoglobin Concent 31.8 G/DL (32.0-36.0) L Red Cell Distribution Width 17.4 % (11.6-14.8) H Platelet Count 61 K/UL (150-450) L Mean Platelet Volume 10.2 FL (6.5-10.1) H Neutrophils (%) (Auto) % (45.0-75.0) Lymphocytes (%) (Auto) % (20.0-45.0) Monocytes (%) (Auto) % (1.0-10.0) Eosinophils (%) (Auto) % (0.0-3.0) Basophils (%) (Auto) % (0.0-2.0) Differential Total Cells Counted 100 Neutrophils % (Manual) 82 % (45-75) H Lymphocytes % (Manual) 9 % (20-45) L Monocytes % (Manual) 3 % (1-10) Eosinophils % (Manual) 4 % (0-3) H Basophils % (Manual) 0 % (0-2) Band Neutrophils 2 % (0-8) Platelet Estimate Decreased L Platelet Morphology Normal Hypochromasia 1+ Anisocytosis 1+ Macrocytosis 1+ Arterial Blood pH 7.572 (7.350-7.450) Arterial Blood Partial Pressure CO2 34.9 mmHg (35.0-45.0) L Arterial Blood Partial Pressure O2 55.9 mmHg (75.0-100.0) L Arterial Blood HCO3 31.4 mmol/L (22.0-26.0) H Arterial Blood Oxygen Saturation 90.1 % (92.0-98.0) L Arterial Blood Base Excess 8.9 Bon Test Positive Sodium Level 151 MMOL/L (136-145) H Potassium Level 3.9 MMOL/L (3.5-5.1) Chloride Level 116 MMOL/L (98-107) H Carbon Dioxide Level 28 MMOL/L (21-32) Anion Gap 7 mmol/L (5-15) Blood Urea Nitrogen 53 mg/dL (7-18) H Creatinine 5.1 MG/DL (0.55-1.30) H Estimat Glomerular Filtration Rate mL/min (>60) Glucose Level 356 MG/DL (74-106) #H Calcium Level 9.5 MG/DL (8.5-10.1) Phosphorus Level 1.6 MG/DL (2.5-4.9) L Magnesium Level 2.3 MG/DL (1.8-2.4) Total Bilirubin 1.9 MG/DL (0.2-1.0) H Direct Bilirubin 1.2 MG/DL (0.0-0.3) H Aspartate Amino Transf (AST/SGOT) 54 U/L (15-37) H Alanine Aminotransferase (ALT/SGPT) 13 U/L (12-78) Alkaline Phosphatase 193 U/L (46-116) H Total Protein 5.3 G/DL (6.4-8.2) L Albumin 1.5 G/DL (3.4-5.0) L Globulin 3.8 g/dL Albumin/Globulin Ratio 0.4 (1.0-2.7) L Intake and Output 02/04/17 02/05/17 19:00 07:00 Intake Total 190 ml Output Total 3100 ml Balance -2910 ml Tube Feeding 140 ml Other 50 ml Output Urine Total 0 ml Hemodialysis UF 3100 ml Objective General Appearance: WD/WN, no apparent distress, moderate distress, obese EENT: PERRL/EOMI, normal ENT inspection Neck: non-tender, normal alignment, supple, normal inspection Cardiovascular: normal peripheral pulses, normal rate, regular rhythm, no gallop/murmur, no JVD Respiratory/Chest: Mechanical vent; chest wall non-tender, lungs with coarse upper air sounds, Bilat wheezes and rales, respiratory distress Abdomen: G-Tube; non tender, no organomegaly, no mass Neurologic: dairy management specialist 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 Baumanii. See ID note. Continur ertaoenem and vanco per ID (2) CHF (congestive heart failure) Assessment & Plan: LVEF 60-65%. see cardiology note. (3) DM (diabetes mellitus) Assessment & Plan: Continue novolog sliding scale (4) Hypercholesteremia (5) HTN (hypertension) Assessment & Plan: Currently hypotensive. (6) Uncontrolled diabetes mellitus (7) Cirrhosis Assessment & Plan: see GI note. (8) Anemia Assessment & Plan: S/P transfusion 2 units PRBC (9) Altered mental status Assessment & Plan: Worsening. ICU status (10) Renal failure Assessment & Plan: Next hemodialysis 02/02/17. See nephrology note. (11) Respiratory failure Assessment & Plan: Due to CHF. Cont mech vent per pulmonary-needs tracheostomy. Continue antibiotic per ID (12) Bradycardia Assessment & Plan: see cardiology note. (13) Hypotension Assessment & Plan: Continue dopamine Status: deteriorating KATHARINA POND Feb 04, 2017 11:41
--- NOTE | 2017-02-04 12:03 | General Progress Note ---
Assessment/Plan Status: unchanged Status Narrative low H&H- dialysed today 3100cc removed Assessment/Plan Acute on chronic renal failure- multifactorial CHF DM HTN Sepsis Now: Acute respiratory failure- Intubated - Altered level of consciousness - ESBL (extended spectrum beta-lactamase) producing bacteria infection - Cardiomegaly - DM (diabetes mellitus) - HTN (hypertension) - UTI (urinary tract infection) - Anemia - High Cholestrol - COPD - YELENA - Fatty liver Plan: trach vs Comfort care !? On midodrine Phos IV dialysis 02/04 done Transfuse as needed, one unit today 02/04 Optimize cardiac and pulmonary status 2D echo results noted avoid nephrotoxics monitor renal parameters Urine studies per orders poor prognosis Subjective ROS Limited/Unobtainable: Yes Allergies: Coded Allergies: PENICILLINS (Unverified Allergy, Unknown, 03/22/15) Objective Last 24 Hour Vital Signs Date Time Temp Pulse Resp B/P (MAP) Pulse Ox O2 Delivery O2 Flow Rate FiO2 02/04/17 11:15 100/48 02/04/17 11:00 74 20 100/48 100 Mechanical Ventilator 60 02/04/17 11:00 74 23 60 02/04/17 10:00 77 20 92/47 98 Mechanical Ventilator 60 02/04/17 09:17 76 20 100 Mechanical Ventilator 60 02/04/17 09:07 91 20 99 Mechanical Ventilator 60 02/04/17 09:00 Mechanical Ventilator 60 02/04/17 09:00 98.8 96 22 96/50 99 Mechanical Ventilator 60 02/04/17 08:58 91 23 60 02/04/17 08:00 98.8 86 20 100/47 100 Mechanical Ventilator 60 02/04/17 08:00 86 02/04/17 08:00 60 02/04/17 07:14 91 21 60 02/04/17 07:00 89 20 106/47 100 Mechanical Ventilator 60 02/04/17 06:00 95 20 134/49 100 Mechanical Ventilator 60 02/04/17 05:20 Mechanical Ventilator 60 02/04/17 05:13 76 20 60 02/04/17 05:00 72 20 121/44 100 Mechanical Ventilator 60 02/04/17 05:00 98.4 78 20 140/70 99 Mechanical Ventilator 60 02/04/17 04:10 99.0 02/04/17 04:00 105 02/04/17 04:00 60 02/04/17 04:00 99.0 71 20 94/39 98 Mechanical Ventilator 60 02/04/17 03:16 99 21 60 02/04/17 03:00 75 20 121/56 100 Mechanical Ventilator 60 02/04/17 02:00 99 20 128/54 100 Mechanical Ventilator 60 02/04/17 01:11 82 20 60 02/04/17 01:00 82 18 125/47 99 Mechanical Ventilator 60 02/04/17 00:00 98.5 82 20 116/48 100 Mechanical Ventilator 60 02/04/17 00:00 60 02/04/17 00:00 80 02/03/17 23:14 76 20 60 02/03/17 23:00 82 17 115/43 99 Mechanical Ventilator 60 02/03/17 22:00 78 17 114/46 100 Mechanical Ventilator 60 02/03/17 21:24 79 20 100 Mechanical Ventilator 60 02/03/17 21:11 77 20 99 Mechanical Ventilator 60 02/03/17 21:11 77 20 60 02/03/17 21:11 60 02/03/17 21:00 76 20 119/42 98 Mechanical Ventilator 60 02/03/17 20:00 86 02/03/17 20:00 60 02/03/17 20:00 98.6 77 20 151/63 98 Mechanical Ventilator 60 02/03/17 19:00 86 20 118/46 98 Mechanical Ventilator 60 02/03/17 18:55 87 21 60 02/03/17 18:00 71 20 98/49 98 Mechanical Ventilator 60 02/03/17 17:03 76 20 60 02/03/17 17:00 74 20 113/59 100 Mechanical Ventilator 60 02/03/17 16:00 60 02/03/17 16:00 98.5 64 20 108/50 100 Mechanical Ventilator 60 02/03/17 16:00 64 02/03/17 15:25 75 20 60 02/03/17 15:00 70 20 110/52 100 Mechanical Ventilator 60 02/03/17 14:00 72 20 114/54 95 Mechanical Ventilator 60 02/03/17 13:20 75 20 60 02/03/17 13:00 75 20 105/57 100 Mechanical Ventilator 60 Intake and Output 02/04/17 02/05/17 19:00 07:00 Intake Total 190 ml Output Total 3100 ml Balance -2910 ml Tube Feeding 140 ml Other 50 ml Output Urine Total 0 ml Hemodialysis UF 3100 ml Laboratory Tests 02/04/17 04:00: White Blood Count 11.3H, Red Blood Count 2.46L, Hemoglobin 7.9L, Hematocrit 24.8L, Mean Corpuscular Volume 101H, Mean Corpuscular Hemoglobin 32.1H, Mean Corpuscular Hemoglobin Concent 31.8L, Red Cell Distribution Width 17.4H, Platelet Count 61L, Mean Platelet Volume 10.2H, Neutrophils (%) (Auto) , Lymphocytes (%) (Auto) , Monocytes (%) (Auto) , Eosinophils (%) (Auto) , Basophils (%) (Auto) , Differential Total Cells Counted 100, Neutrophils % ( Manual) 82H, Lymphocytes % (Manual) 9L, Monocytes % (Manual) 3, Eosinophils % ( Manual) 4H, Basophils % (Manual) 0, Band Neutrophils 2, Platelet Estimate DecreasedL, Platelet Morphology Normal, Hypochromasia 1+, Anisocytosis 1+, Macrocytosis 1+, Arterial Blood pH 7.572*H, Arterial Blood Partial Pressure CO2 34.9L, Arterial Blood Partial Pressure O2 55.9L, Arterial Blood HCO3 31.4H, Arterial Blood Oxygen Saturation 90.1L, Arterial Blood Base Excess 8.9, Bon Test Positive, Sodium Level 151H, Potassium Level 3.9, Chloride Level 116H, Carbon Dioxide Level 28, Anion Gap 7, Blood Urea Nitrogen 53H, Creatinine 5.1H, Estimat Glomerular Filtration Rate , Glucose Level 356#H, Calcium Level 9.5, Phosphorus Level 1.6L, Magnesium Level 2.3, Total Bilirubin 1.9H, Direct Bilirubin 1.2H, Aspartate Amino Transf (AST/SGOT) 54H, Alanine Aminotransferase (ALT/SGPT) 13, Alkaline Phosphatase 193H, Total Protein 5.3L, Albumin 1.5L, Globulin 3.8, Albumin/Globulin Ratio 0.4L Height (Feet): 5 Height (Inches): 6.00 Weight (Pounds): 272 General Appearance: no apparent distress Cardiovascular: tachycardia Respiratory/Chest: decreased breath sounds Abdomen: distended Objective no other change ANDERS MOLINA Feb 04, 2017 12:03
--- NOTE | 2017-02-04 12:26 | Diagnostic Imaging Report ---
Indication: DYSPNEA Technique: One view of the chest Comparison: 02/03/2017 Findings: Feels acquisitions of endotracheal tube, nasogastric tube, right jugular temporary dialysis catheter. 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
[2017-02-04] MEDS ORDERED: Potassium Phosphate 20 MM in NS 275 ML IV ONE (14:00)
[2017-02-04] MEDS: Morphine Sulfate 4mg/ml Inj IVP PRN (15:29)
--- NOTE | 2017-02-04 15:33 | Cardiac Electrophysiology PN ---
Assessment/Plan Assessment/Plan 1. Congestive heart failure due to diastolic dysfunction. Ejection fraction 60% to 65%. EKG NSR with low voltage QRS. On dialysis 2. Shock, resolved.Off Dopamine and on Abx 3. Bradycardia resolved, off dopamine. On midodrine 5 tid 4. Vent dependent respiratory failure. Tracheostomy Thursday. 5. Hyperlipidemia. 6. Cirrhosis 7. Anemia with hemoglobin of 8. 8. Hypernatremia resolved 9. DNR and DNI 10. ESRD on HD 11. DM DW RN Subjective Subjective In ICU unresponsive on Vent.Off pressors.Now is scheduled for tracheostomy on Thursday.Had 3.1 liters dialysis today Objective Last 24 Hour Vital Signs Date Time Temp Pulse Resp B/P (MAP) Pulse Ox O2 Delivery O2 Flow Rate FiO2 02/04/17 15:00 99 20 110/53 95 Mechanical Ventilator 50 02/04/17 14:00 92 20 89/40 95 Mechanical Ventilator 50 02/04/17 13:00 80 20 90/40 98 Mechanical Ventilator 50 02/04/17 12:58 74 02/04/17 12:36 77 20 60 02/04/17 12:00 99.7 77 20 82/53 100 Mechanical Ventilator 50 02/04/17 12:00 72 02/04/17 12:00 50 02/04/17 11:15 100/48 02/04/17 11:00 74 20 100/48 100 Mechanical Ventilator 60 02/04/17 11:00 74 23 60 02/04/17 10:00 77 20 92/47 98 Mechanical Ventilator 60 02/04/17 09:17 76 20 100 Mechanical Ventilator 60 02/04/17 09:07 91 20 99 Mechanical Ventilator 60 02/04/17 09:00 Mechanical Ventilator 60 02/04/17 09:00 98.8 96 22 96/50 99 Mechanical Ventilator 60 02/04/17 08:58 91 23 60 02/04/17 08:00 98.8 86 20 100/47 100 Mechanical Ventilator 60 02/04/17 08:00 86 02/04/17 08:00 60 02/04/17 07:14 91 21 60 02/04/17 07:00 89 20 106/47 100 Mechanical Ventilator 60 02/04/17 06:00 95 20 134/49 100 Mechanical Ventilator 60 02/04/17 05:20 Mechanical Ventilator 60 02/04/17 05:13 76 20 60 02/04/17 05:00 72 20 121/44 100 Mechanical Ventilator 60 02/04/17 05:00 98.4 78 20 140/70 99 Mechanical Ventilator 60 02/04/17 04:10 99.0 02/04/17 04:00 105 02/04/17 04:00 60 02/04/17 04:00 99.0 71 20 94/39 98 Mechanical Ventilator 60 02/04/17 03:16 99 21 60 02/04/17 03:00 75 20 121/56 100 Mechanical Ventilator 60 02/04/17 02:00 99 20 128/54 100 Mechanical Ventilator 60 02/04/17 01:11 82 20 60 02/04/17 01:00 82 18 125/47 99 Mechanical Ventilator 60 02/04/17 00:00 98.5 82 20 116/48 100 Mechanical Ventilator 60 02/04/17 00:00 60 02/04/17 00:00 80 02/03/17 23:14 76 20 60 02/03/17 23:00 82 17 115/43 99 Mechanical Ventilator 60 02/03/17 22:00 78 17 114/46 100 Mechanical Ventilator 60 02/03/17 21:24 79 20 100 Mechanical Ventilator 60 02/03/17 21:11 77 20 99 Mechanical Ventilator 60 02/03/17 21:11 77 20 60 02/03/17 21:11 60 02/03/17 21:00 76 20 119/42 98 Mechanical Ventilator 60 02/03/17 20:00 86 02/03/17 20:00 60 02/03/17 20:00 98.6 77 20 151/63 98 Mechanical Ventilator 60 02/03/17 19:00 86 20 118/46 98 Mechanical Ventilator 60 02/03/17 18:55 87 21 60 02/03/17 18:00 71 20 98/49 98 Mechanical Ventilator 60 02/03/17 17:03 76 20 60 02/03/17 17:00 74 20 113/59 100 Mechanical Ventilator 60 02/03/17 16:00 60 02/03/17 16:00 98.5 64 20 108/50 100 Mechanical Ventilator 60 02/03/17 16:00 64 Intake and Output 02/04/17 02/05/17 19:00 07:00 Intake Total 460 ml Output Total 3100 ml Balance -2640 ml Tube Feeding 280 ml Other 180 ml Output Urine Total 0 ml Hemodialysis UF 3100 ml Laboratory Tests Test 02/04/17 04:00 White Blood Count 11.3 K/UL (4.8-10.8) H Red Blood Count 2.46 M/UL (4.20-5.40) L Hemoglobin 7.9 G/DL (12.0-16.0) L Hematocrit 24.8 % (37.0-47.0) L Mean Corpuscular Volume 101 FL (80-99) H Mean Corpuscular Hemoglobin 32.1 PG (27.0-31.0) H Mean Corpuscular Hemoglobin Concent 31.8 G/DL (32.0-36.0) L Red Cell Distribution Width 17.4 % (11.6-14.8) H Platelet Count 61 K/UL (150-450) L Mean Platelet Volume 10.2 FL (6.5-10.1) H Neutrophils (%) (Auto) % (45.0-75.0) Lymphocytes (%) (Auto) % (20.0-45.0) Monocytes (%) (Auto) % (1.0-10.0) Eosinophils (%) (Auto) % (0.0-3.0) Basophils (%) (Auto) % (0.0-2.0) Differential Total Cells Counted 100 Neutrophils % (Manual) 82 % (45-75) H Lymphocytes % (Manual) 9 % (20-45) L Monocytes % (Manual) 3 % (1-10) Eosinophils % (Manual) 4 % (0-3) H Basophils % (Manual) 0 % (0-2) Band Neutrophils 2 % (0-8) Platelet Estimate Decreased L Platelet Morphology Normal Hypochromasia 1+ Anisocytosis 1+ Macrocytosis 1+ Arterial Blood pH 7.572 (7.350-7.450) Arterial Blood Partial Pressure CO2 34.9 mmHg (35.0-45.0) L Arterial Blood Partial Pressure O2 55.9 mmHg (75.0-100.0) L Arterial Blood HCO3 31.4 mmol/L (22.0-26.0) H Arterial Blood Oxygen Saturation 90.1 % (92.0-98.0) L Arterial Blood Base Excess 8.9 Bon Test Positive Sodium Level 151 MMOL/L (136-145) H Potassium Level 3.9 MMOL/L (3.5-5.1) Chloride Level 116 MMOL/L (98-107) H Carbon Dioxide Level 28 MMOL/L (21-32) Anion Gap 7 mmol/L (5-15) Blood Urea Nitrogen 53 mg/dL (7-18) H Creatinine 5.1 MG/DL (0.55-1.30) H Estimat Glomerular Filtration Rate mL/min (>60) Glucose Level 356 MG/DL (74-106) #H Calcium Level 9.5 MG/DL (8.5-10.1) Phosphorus Level 1.6 MG/DL (2.5-4.9) L Magnesium Level 2.3 MG/DL (1.8-2.4) Total Bilirubin 1.9 MG/DL (0.2-1.0) H Direct Bilirubin 1.2 MG/DL (0.0-0.3) H Aspartate Amino Transf (AST/SGOT) 54 U/L (15-37) H Alanine Aminotransferase (ALT/SGPT) 13 U/L (12-78) Alkaline Phosphatase 193 U/L (46-116) H Total Protein 5.3 G/DL (6.4-8.2) L Albumin 1.5 G/DL (3.4-5.0) L Globulin 3.8 g/dL Albumin/Globulin Ratio 0.4 (1.0-2.7) L Objective HEAD AND NECK: No JVD.Orally intubated. Right IJ Maharkar Catheter LUNGS: Coarse rhonchi CARDIOVASCULAR: Regular S1 and S2 with no gallop or murmur. ABDOMEN: Soft and nontender and obese. EXTREMITIES: 1+ pitting edema. DEAN SHAW Feb 04, 2017 15:33
[2017-02-04] MEDS ORDERED: Tubing Blood Filter IV ONE (17:32)
[2017-02-04] MEDS ORDERED: Sterile Water Irrig 1000ml IRRIG ONE (17:32)
--- NOTE | 2017-02-04 20:27 | Infectious Diseases Prog Note ---
Assessment/Plan Assessment/Plan Assessment: Encephalopathy- possibly multifactorial- hepatic encephalopathy, infection- worsening now due to hypercapnea (transferred to ICU 01/21), on bipap> intubated Acute respiratory failure 2ry to hypercapnea, PNA; now ARDS - self-extubated , pending re-intubation -CXR 02/04: Pulmonary parenchymal disease, likely ARDS, overall stable Sepsis 2ry to PNA and Bacteremia HCAP 2ry to ESBL. 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 -repeat sp cx 01/26: +4 MDR A.baumani (I Ceftazidime, R to carbapenem and aminoglycosides, Minocycline; S to Colistin, Polymyxin B) suspect Colonizer ( improving not on tx) -Sp cx 01/22: +2 ESBK E.coli, +2 C. albicans (colonizer) MRSA bacteremia- with repeat Bcx growing CoNS (?contaminant vs real). BCx cleared 01/26 SP Rx -01/16 04/23 BCx MRSA (S. Vanco JOSE A 1), repeat Bcx 01/19 Neg, 01/21 04/23 CoNS ( contaminant), 01/24 Bcx 04/23 CoNs, Bcx 01/26 Neg x4, 01/28 BCx neg -TTE 01/19(limited study): No aortic regurgitation.Trace mitral regurgitation.Mitral diastolic velocities suggest reduced left ventricular relaxation c/w diastolic dysfunction grade. Moderate tricuspid regurgitation. Leukocytosis, previously worsened up to 24, now recurrent, mild, stable, afebrile -01/26. pyuria improving (WBC 10-15); ucx C. albicans (colonizer) -01/22 u/a WBC 30-40, ucx yeast (colonizer) -Sp cx ESBL E.coli, diaz (colonizer) Elevated LFTs, improving -[facility] hep panel neg Probable MDR UTI, pyuria, s/p Rx -u/a 01/16 WBC too many to count,nit neg ,leuk est +3; UCx x3 grew >100K MDR A.baumani complex (S. tigecycline/Minocycline, Polymixin B/Colistin), >100K PsA (S. Cefepime, Zosyn; R Cipro/Levo); a prior isolated on a ucx from the same day isolated MDR PsA (I. Cefepime, R ceftzadime, Meropenem; S. Tygecicine, amikacin) -renal u/s: Nondiagnostic exam Metabolic acidosis, 2ry to renal failure- now improved after initiation of HD 01/28 RAMYA on CKD, started on HD 01/28 Cirrhosis Anemia & thrombocytopenia DM type 2 Morbid obesity DNR PLAN: -Continue Ertapenem for ESBL E. coli in sputum (abx d# /) - will extend d/t possible aspiration 02/04 -02/03 s/p IV Vancomycin #/ -s/p 1 dose Amikacin 01/28 -s/p 7d Cefepime 01/24 -s/p 3d Amikacin 01/24 -s/p 7d Minocycline 01/24 -s/p 3d IV vanco 01/18 -continue prophylactic PO Vancomycin #13 -Continue Inhaled colistin 75mg bid #10/24-10 for MDR ABC in sputum -monitor closely; if HD decompensation add IV Colistin -requested ceftazidime-avibactam (not available), tigecycline and minocycline susceptibilities 01/29 monitor CBC, temperatures monitor BMP monitor CXR re-intubation Subjective Allergies: Coded Allergies: PENICILLINS (Unverified Allergy, Unknown, 03/22/15) Subjective respiratory distress on BiPAP SP self-extubation, awaiting re-intubation now DNR Objective Vital Signs Last 24 Hour Vital Signs Date Time Temp Pulse Resp B/P (MAP) Pulse Ox O2 Delivery O2 Flow Rate FiO2 02/04/17 19:40 136 33 96 Facial 80 02/04/17 19:20 Bi-pap 80 02/04/17 19:15 94 22 50 02/04/17 19:00 99 20 119/48 100 Mechanical Ventilator 50 02/04/17 18:00 99.2 86 20 104/72 100 Mechanical Ventilator 60 02/04/17 17:30 76 20 60 02/04/17 17:00 91 20 107/43 97 Mechanical Ventilator 50 02/04/17 16:00 87 20 106/41 97 Mechanical Ventilator 50 02/04/17 16:00 50 02/04/17 15:06 74 20 60 02/04/17 15:00 99 20 110/53 95 Mechanical Ventilator 50 02/04/17 14:00 92 20 89/40 95 Mechanical Ventilator 50 02/04/17 13:00 80 20 90/40 98 Mechanical Ventilator 50 02/04/17 12:58 74 02/04/17 12:36 77 20 60 02/04/17 12:00 99.7 77 20 82/53 100 Mechanical Ventilator 50 02/04/17 12:00 72 02/04/17 12:00 50 02/04/17 11:15 100/48 02/04/17 11:00 74 20 100/48 100 Mechanical Ventilator 60 02/04/17 11:00 74 23 60 02/04/17 10:00 77 20 92/47 98 Mechanical Ventilator 60 02/04/17 09:17 76 20 100 Mechanical Ventilator 60 02/04/17 09:07 91 20 99 Mechanical Ventilator 60 02/04/17 09:00 Mechanical Ventilator 60 02/04/17 09:00 98.8 96 22 96/50 99 Mechanical Ventilator 60 02/04/17 08:58 91 23 60 02/04/17 08:00 98.8 86 20 100/47 100 Mechanical Ventilator 60 02/04/17 08:00 86 02/04/17 08:00 60 02/04/17 07:14 91 21 60 02/04/17 07:00 89 20 106/47 100 Mechanical Ventilator 60 02/04/17 06:00 95 20 134/49 100 Mechanical Ventilator 60 02/04/17 05:20 Mechanical Ventilator 60 02/04/17 05:13 76 20 60 02/04/17 05:00 72 20 121/44 100 Mechanical Ventilator 60 02/04/17 05:00 98.4 78 20 140/70 99 Mechanical Ventilator 60 02/04/17 04:10 99.0 02/04/17 04:00 105 02/04/17 04:00 60 02/04/17 04:00 99.0 71 20 94/39 98 Mechanical Ventilator 60 02/04/17 03:16 99 21 60 02/04/17 03:00 75 20 121/56 100 Mechanical Ventilator 60 02/04/17 02:00 99 20 128/54 100 Mechanical Ventilator 60 02/04/17 01:11 82 20 60 02/04/17 01:00 82 18 125/47 99 Mechanical Ventilator 60 02/04/17 00:00 98.5 82 20 116/48 100 Mechanical Ventilator 60 02/04/17 00:00 60 02/04/17 00:00 80 02/03/17 23:14 76 20 60 02/03/17 23:00 82 17 115/43 99 Mechanical Ventilator 60 02/03/17 22:00 78 17 114/46 100 Mechanical Ventilator 60 02/03/17 21:24 79 20 100 Mechanical Ventilator 60 02/03/17 21:11 77 20 99 Mechanical Ventilator 60 02/03/17 21:11 77 20 60 02/03/17 21:11 60 02/03/17 21:00 76 20 119/42 98 Mechanical Ventilator 60 Height (Feet): 5 Height (Inches): 6.00 Weight (Pounds): 272 General Appearance: other - resp distress, bipap Respiratory/Chest: decreased breath sounds, accessory muscle use Cardiovascular: regular rhythm, tachycardia Abdomen: normal bowel sounds, soft, non tender, non distended Laboratory Tests Test 02/04/17 04:00 White Blood Count 11.3 K/UL (4.8-10.8) H Red Blood Count 2.46 M/UL (4.20-5.40) L Hemoglobin 7.9 G/DL (12.0-16.0) L Hematocrit 24.8 % (37.0-47.0) L Mean Corpuscular Volume 101 FL (80-99) H Mean Corpuscular Hemoglobin 32.1 PG (27.0-31.0) H Mean Corpuscular Hemoglobin Concent 31.8 G/DL (32.0-36.0) L Red Cell Distribution Width 17.4 % (11.6-14.8) H Platelet Count 61 K/UL (150-450) L Mean Platelet Volume 10.2 FL (6.5-10.1) H Neutrophils (%) (Auto) % (45.0-75.0) Lymphocytes (%) (Auto) % (20.0-45.0) Monocytes (%) (Auto) % (1.0-10.0) Eosinophils (%) (Auto) % (0.0-3.0) Basophils (%) (Auto) % (0.0-2.0) Differential Total Cells Counted 100 Neutrophils % (Manual) 82 % (45-75) H Lymphocytes % (Manual) 9 % (20-45) L Monocytes % (Manual) 3 % (1-10) Eosinophils % (Manual) 4 % (0-3) H Basophils % (Manual) 0 % (0-2) Band Neutrophils 2 % (0-8) Platelet Estimate Decreased L Platelet Morphology Normal Hypochromasia 1+ Anisocytosis 1+ Macrocytosis 1+ Arterial Blood pH 7.572 (7.350-7.450) Arterial Blood Partial Pressure CO2 34.9 mmHg (35.0-45.0) L Arterial Blood Partial Pressure O2 55.9 mmHg (75.0-100.0) L Arterial Blood HCO3 31.4 mmol/L (22.0-26.0) H Arterial Blood Oxygen Saturation 90.1 % (92.0-98.0) L Arterial Blood Base Excess 8.9 Bon Test Positive Sodium Level 151 MMOL/L (136-145) H Potassium Level 3.9 MMOL/L (3.5-5.1) Chloride Level 116 MMOL/L (98-107) H Carbon Dioxide Level 28 MMOL/L (21-32) Anion Gap 7 mmol/L (5-15) Blood Urea Nitrogen 53 mg/dL (7-18) H Creatinine 5.1 MG/DL (0.55-1.30) H Estimat Glomerular Filtration Rate mL/min (>60) Glucose Level 356 MG/DL (74-106) #H Calcium Level 9.5 MG/DL (8.5-10.1) Phosphorus Level 1.6 MG/DL (2.5-4.9) L Magnesium Level 2.3 MG/DL (1.8-2.4) Total Bilirubin 1.9 MG/DL (0.2-1.0) H Direct Bilirubin 1.2 MG/DL (0.0-0.3) H Aspartate Amino Transf (AST/SGOT) 54 U/L (15-37) H Alanine Aminotransferase (ALT/SGPT) 13 U/L (12-78) Alkaline Phosphatase 193 U/L (46-116) H Total Protein 5.3 G/DL (6.4-8.2) L Albumin 1.5 G/DL (3.4-5.0) L Globulin 3.8 g/dL Albumin/Globulin Ratio 0.4 (1.0-2.7) L Current Medications Medications (Trade) Dose Ordered Sig/Pavel Route PRN Reason Start Time Stop Time Status Last Admin Dose Admin Acetaminophen (Tylenol) 650 mg Q4H PRN ORAL T>100.5 01/21/17 14:30 02/15/17 14:29 02/04/17 09:37 Albuterol/ Ipratropium (DuoNeb 0.5-3(2.5)mg/3ml) 3 ml Q4H PRN HHN Shortness of Breath 01/31/17 11:15 02/05/17 11:14 Chlorhexidine Gluconate (Dianne-Hex 2%) 1 applic DAILY@2000 TOPIC 01/25/17 20:00 02/24/17 19:59 02/03/17 20:22 Clotrimazole (Lotrimin) 1 applic EVERY 12 HOURS TOPIC 01/21/17 21:00 02/18/17 13:59 02/04/17 09:36 Colistimethate Sodium (Colistin *inhalation use only*) 75 mg Q12HRT INH 01/29/17 22:00 02/05/17 21:59 02/04/17 09:07 Dextrose (Dextrose 50%) STAT PRN IV Hypoglycemia 01/27/17 07:45 02/26/17 07:44 Dopamine HCl/ Dextrose 250 ml @ 0 mls/hr Q24H IV 01/25/17 11:15 02/24/17 11:14 01/30/17 10:30 Ertapenem 0.5 gm/ Sodium Chloride 55 ml @ 110 mls/hr Q24H IVPB 02/02/17 21:00 02/07/17 20:59 02/03/17 20:37 Insulin Aspart (NovoLOG) EVERY 6 HOURS SUBQ 01/27/17 18:00 02/26/17 11:29 02/04/17 18:14 Lactulose (Cephulac) 10 gm BID ORAL 01/23/17 09:00 02/18/17 12:59 02/04/17 18:04 Metoclopramide HCl (Reglan) 5 mg Q8H PRN IVP Nausea & Vomiting 01/29/17 11:30 02/28/17 11:29 01/31/17 11:46 Midodrine (Pro-Amatine) 10 mg Q8HR NG 02/03/17 14:00 03/05/17 13:59 02/04/17 13:23 Morphine Sulfate (Morphine Sulfate) 2 mg Q4H PRN IVP PAIN 4-10 02/04/17 11:45 02/11/17 11:44 02/04/17 15:29 Nitroglycerin (Ntg) 0.4 mg Q5MIN X 3 DOSES PRN SL Prn Chest Pain 01/21/17 14:30 02/15/17 14:29 Nystatin (Nystop Powder) 1 applic THREE TIMES A DAY TOPIC 01/22/17 13:00 02/21/17 12:59 02/04/17 18:05 Potassium Chloride (KCl 10% 40mEq Oral solution) 40 meq TWICE A DAY NG 02/01/17 09:45 03/03/17 09:44 02/04/17 18:04 Ranitidine HCl (Zantac) 150 mg DAILY NG 02/03/17 18:00 03/05/17 17:59 02/04/17 09:00 Rifaximin (Xifaxan) 550 mg EVERY 12 HOURS ORAL 01/29/17 12:00 02/05/17 11:59 02/04/17 09:35 Vancomycin HCl (Vancomycin) 125 mg BID NG 02/02/17 16:00 02/09/17 15:59 02/04/17 18:04 KAYLA LOUIS Feb 04, 2017 20:27
--- NOTE | 2017-02-04 20:46 | General Progress Note ---
Assessment/Plan Assessment/Plan ASSESSMENT AND RECOMMENDATIONS 1.Thrombocytopenia 2/2 sepsis --> improving --> give plts if below 10k or if below 20k and febrile --> ID following 2. Coagulopathy secondary to underlying liver cirrhosis 3. Thrombocytopenia secondary to underlying splenomegaly. 4. Anemia 2/2 chronic disease --> Watch HH, transfuse if below 8, order has been placed 5. Leukocytosis secondary to underlying infection. On abx per id service 6. Sepsis 2/2 UTI 7. Altered mental status 8. RAMYA on CKD,on hemodialysis Subjective ROS Limited/Unobtainable: Yes Allergies: Coded Allergies: PENICILLINS (Unverified Allergy, Unknown, 03/22/15) Subjective remains on vent, unresponsive Objective Last 24 Hour Vital Signs Date Time Temp Pulse Resp B/P (MAP) Pulse Ox O2 Delivery O2 Flow Rate FiO2 02/04/17 19:40 136 33 96 Facial 80 02/04/17 19:20 Bi-pap 80 02/04/17 19:15 94 22 50 02/04/17 19:00 99 20 119/48 100 Mechanical Ventilator 50 02/04/17 18:00 99.2 86 20 104/72 100 Mechanical Ventilator 60 02/04/17 17:30 76 20 60 02/04/17 17:00 91 20 107/43 97 Mechanical Ventilator 50 02/04/17 16:00 87 20 106/41 97 Mechanical Ventilator 50 02/04/17 16:00 50 02/04/17 15:06 74 20 60 02/04/17 15:00 99 20 110/53 95 Mechanical Ventilator 50 02/04/17 14:00 92 20 89/40 95 Mechanical Ventilator 50 02/04/17 13:00 80 20 90/40 98 Mechanical Ventilator 50 02/04/17 12:58 74 02/04/17 12:36 77 20 60 02/04/17 12:00 99.7 77 20 82/53 100 Mechanical Ventilator 50 02/04/17 12:00 72 02/04/17 12:00 50 02/04/17 11:15 100/48 02/04/17 11:00 74 20 100/48 100 Mechanical Ventilator 60 02/04/17 11:00 74 23 60 02/04/17 10:00 77 20 92/47 98 Mechanical Ventilator 60 02/04/17 09:17 76 20 100 Mechanical Ventilator 60 02/04/17 09:07 91 20 99 Mechanical Ventilator 60 02/04/17 09:00 Mechanical Ventilator 60 02/04/17 09:00 98.8 96 22 96/50 99 Mechanical Ventilator 60 02/04/17 08:58 91 23 60 02/04/17 08:00 98.8 86 20 100/47 100 Mechanical Ventilator 60 02/04/17 08:00 86 02/04/17 08:00 60 02/04/17 07:14 91 21 60 02/04/17 07:00 89 20 106/47 100 Mechanical Ventilator 60 02/04/17 06:00 95 20 134/49 100 Mechanical Ventilator 60 02/04/17 05:20 Mechanical Ventilator 60 02/04/17 05:13 76 20 60 02/04/17 05:00 72 20 121/44 100 Mechanical Ventilator 60 02/04/17 05:00 98.4 78 20 140/70 99 Mechanical Ventilator 60 02/04/17 04:10 99.0 02/04/17 04:00 105 02/04/17 04:00 60 02/04/17 04:00 99.0 71 20 94/39 98 Mechanical Ventilator 60 02/04/17 03:16 99 21 60 02/04/17 03:00 75 20 121/56 100 Mechanical Ventilator 60 02/04/17 02:00 99 20 128/54 100 Mechanical Ventilator 60 02/04/17 01:11 82 20 60 02/04/17 01:00 82 18 125/47 99 Mechanical Ventilator 60 02/04/17 00:00 98.5 82 20 116/48 100 Mechanical Ventilator 60 02/04/17 00:00 60 02/04/17 00:00 80 02/03/17 23:14 76 20 60 02/03/17 23:00 82 17 115/43 99 Mechanical Ventilator 60 02/03/17 22:00 78 17 114/46 100 Mechanical Ventilator 60 02/03/17 21:24 79 20 100 Mechanical Ventilator 60 02/03/17 21:11 77 20 99 Mechanical Ventilator 60 02/03/17 21:11 77 20 60 02/03/17 21:11 60 02/03/17 21:00 76 20 119/42 98 Mechanical Ventilator 60 Intake and Output 02/04/17 02/05/17 19:00 07:00 Intake Total 830.832 ml Output Total 3400 ml Balance -2569.168 ml IV Total 180.832 ml Tube Feeding 420 ml Other 230 ml Output Urine Total 0 ml Stool Total 300 ml Hemodialysis UF 3100 ml Laboratory Tests 02/04/17 04:00: White Blood Count 11.3H, Red Blood Count 2.46L, Hemoglobin 7.9L, Hematocrit 24.8L, Mean Corpuscular Volume 101H, Mean Corpuscular Hemoglobin 32.1H, Mean Corpuscular Hemoglobin Concent 31.8L, Red Cell Distribution Width 17.4H, Platelet Count 61L, Mean Platelet Volume 10.2H, Neutrophils (%) (Auto) , Lymphocytes (%) (Auto) , Monocytes (%) (Auto) , Eosinophils (%) (Auto) , Basophils (%) (Auto) , Differential Total Cells Counted 100, Neutrophils % ( Manual) 82H, Lymphocytes % (Manual) 9L, Monocytes % (Manual) 3, Eosinophils % ( Manual) 4H, Basophils % (Manual) 0, Band Neutrophils 2, Platelet Estimate DecreasedL, Platelet Morphology Normal, Hypochromasia 1+, Anisocytosis 1+, Macrocytosis 1+, Arterial Blood pH 7.572*H, Arterial Blood Partial Pressure CO2 34.9L, Arterial Blood Partial Pressure O2 55.9L, Arterial Blood HCO3 31.4H, Arterial Blood Oxygen Saturation 90.1L, Arterial Blood Base Excess 8.9, Bon Test Positive, Sodium Level 151H, Potassium Level 3.9, Chloride Level 116H, Carbon Dioxide Level 28, Anion Gap 7, Blood Urea Nitrogen 53H, Creatinine 5.1H, Estimat Glomerular Filtration Rate , Glucose Level 356#H, Calcium Level 9.5, Phosphorus Level 1.6L, Magnesium Level 2.3, Total Bilirubin 1.9H, Direct Bilirubin 1.2H, Aspartate Amino Transf (AST/SGOT) 54H, Alanine Aminotransferase (ALT/SGPT) 13, Alkaline Phosphatase 193H, Total Protein 5.3L, Albumin 1.5L, Globulin 3.8, Albumin/Globulin Ratio 0.4L Height (Feet): 5 Height (Inches): 6.00 Weight (Pounds): 272 General Appearance: no apparent distress EENT: normal ENT inspection Neck: normal inspection Respiratory/Chest: chest wall non-tender Extremities: non-tender Edema: moderate edema Chriss Pat Feb 04, 2017 20:46
--- NOTE | 2017-02-04 21:04 | Emergency Room Report ---
History of Present Illness General Chief Complaint: Altered Level of Consciousness Source: Patient, Medical Record, PMD Present Illness Allergies: Coded Allergies: PENICILLINS (Unverified Allergy, Unknown, 03/22/15) Patient History Now: No Nursing Documentation-[facility] Past Medical History: No History, Except For Hx Cardiac Problems: Yes - Anemia, Cardiomyopathy, HF, Artherosclerotic heart disease, Angina pectoris Hx Hypertension: Yes - Hypercholesteremia, Hyperlipidemia, Orthostatic hypotension Hx Pacemaker: No Hx Asthma: No - Hypomagnesemia, Hyperkalemia Hx COPD: Yes - Bronchitis, PNA, Acute Resp Fail., Thrombocytopenia Hx Diabetes: Yes - Gout, Ascites Hx Cancer: No - Abd actinomycosis, malnutrition, Gastrostomy, Dysphagia Hx Gastrointestinal Problems: Yes - GERD, Ulcerative colitis, Morbid obesity, cholelithiasis, Acute cholecystit History Of Psychiatric Problem: Yes - Insomnia, Bipolar, AMS, Major depressive disorder, Alzheimer's Hx Neurological Problems: Yes - Diabetic neuropathy, Obstructive sleep apnea, Muscle weakness Hx Cerebrovascular Accident: No - Encephalopathy Hx Seizures: No - Erythema Intertrigo Physical Exam Vital Signs Date Time Temp Pulse Resp B/P (MAP) Pulse Ox O2 Delivery O2 Flow Rate FiO2 01/16/17 09:56 97.2 76 26 130/56 96 Nasal Cannula 2.0 01/18/17 21:17 28 Procedures Intubation Intubation : Consent: Emergent Time of Intubation: 21:01 Intubation Method: orotracheal Tube Size (cm): 7.0 Medications: Etomidate, Succinylcholine Breath Sounds after Intubation: equal Intubation Complications: no complications Post Intubation Xray: Yes Patient Tolerated: Well Complications: Other - left side lip abrasion Medical Decision Making Diagnostic Impression: Primary Impression: Altered mental status Qualified Codes: R41.82 - Altered mental status, unspecified Additional Impression: Encephalopathy acute Last Vital Signs Date Time Temp Pulse Resp B/P (MAP) Pulse Ox O2 Delivery O2 Flow Rate FiO2 02/04/17 19:40 136 33 96 Facial 80 02/04/17 19:00 119/48 02/04/17 18:00 99.2 02/02/17 16:30 15.0 Disposition: ADMITTED INPATIENT Condition: Serious Referrals: Rl Tee MD (PCP) Anish García Feb 04, 2017 21:04
[2017-02-04] MEDS: Dyna-Hex 2% Top Sol 2oz TOPIC SCH (21:18)
[2017-02-04] MEDS: Ertapenem 0.5 GM in NS 55 ML IVPB SCH (21:18)
--- NOTE | 2017-02-04 23:04 | General Progress Note ---
Assessment/Plan Assessment/Plan encephalopathy Subjective Date patient seen: Feb 04, 2017 Allergies: Coded Allergies: PENICILLINS (Unverified Allergy, Unknown, 03/22/15) Subjective waxing and waning of consciousness.agitated at times unchanged since previous encounter Objective Last 24 Hour Vital Signs Date Time Temp Pulse Resp B/P (MAP) Pulse Ox O2 Delivery O2 Flow Rate FiO2 02/04/17 22:51 106 20 70 02/04/17 22:00 105 21 138/55 93 Mechanical Ventilator 60 02/04/17 21:13 60 02/04/17 21:12 Mechanical Ventilator 02/04/17 21:00 123 26 144/62 94 Mechanical Ventilator 60 02/04/17 21:00 100 20 60 02/04/17 20:00 80 02/04/17 20:00 134 02/04/17 20:00 134 31 136/58 96 Bi-pap 80 02/04/17 19:40 136 33 96 Facial 80 02/04/17 19:20 Bi-pap 80 02/04/17 19:15 94 22 50 02/04/17 19:00 99 20 119/48 100 Mechanical Ventilator 50 02/04/17 18:00 99.2 86 20 104/72 100 Mechanical Ventilator 60 02/04/17 17:30 76 20 60 02/04/17 17:00 91 20 107/43 97 Mechanical Ventilator 50 02/04/17 16:00 87 20 106/41 97 Mechanical Ventilator 50 02/04/17 16:00 50 02/04/17 15:06 74 20 60 02/04/17 15:00 99 20 110/53 95 Mechanical Ventilator 50 02/04/17 14:00 92 20 89/40 95 Mechanical Ventilator 50 02/04/17 13:00 80 20 90/40 98 Mechanical Ventilator 50 02/04/17 12:58 74 02/04/17 12:36 77 20 60 02/04/17 12:00 99.7 77 20 82/53 100 Mechanical Ventilator 50 02/04/17 12:00 72 02/04/17 12:00 50 02/04/17 11:15 100/48 02/04/17 11:00 74 20 100/48 100 Mechanical Ventilator 60 02/04/17 11:00 74 23 60 02/04/17 10:00 77 20 92/47 98 Mechanical Ventilator 60 02/04/17 09:17 76 20 100 Mechanical Ventilator 60 02/04/17 09:07 91 20 99 Mechanical Ventilator 60 02/04/17 09:00 Mechanical Ventilator 60 02/04/17 09:00 98.8 96 22 96/50 99 Mechanical Ventilator 60 02/04/17 08:58 91 23 60 02/04/17 08:00 98.8 86 20 100/47 100 Mechanical Ventilator 60 02/04/17 08:00 86 02/04/17 08:00 60 02/04/17 07:14 91 21 60 02/04/17 07:00 89 20 106/47 100 Mechanical Ventilator 60 02/04/17 06:00 95 20 134/49 100 Mechanical Ventilator 60 02/04/17 05:20 Mechanical Ventilator 60 02/04/17 05:13 76 20 60 02/04/17 05:00 72 20 121/44 100 Mechanical Ventilator 60 02/04/17 05:00 98.4 78 20 140/70 99 Mechanical Ventilator 60 02/04/17 04:10 99.0 02/04/17 04:00 105 02/04/17 04:00 60 02/04/17 04:00 99.0 71 20 94/39 98 Mechanical Ventilator 60 02/04/17 03:16 99 21 60 02/04/17 03:00 75 20 121/56 100 Mechanical Ventilator 60 02/04/17 02:00 99 20 128/54 100 Mechanical Ventilator 60 02/04/17 01:11 82 20 60 02/04/17 01:00 82 18 125/47 99 Mechanical Ventilator 60 02/04/17 00:00 98.5 82 20 116/48 100 Mechanical Ventilator 60 02/04/17 00:00 60 02/04/17 00:00 80 02/03/17 23:14 76 20 60 Intake and Output 02/04/17 02/05/17 19:00 07:00 Intake Total 830.832 ml 370 ml Output Total 3400 ml 0 ml Balance -2569.168 ml 370 ml IV Total 180.832 ml Tube Feeding 420 ml 70 ml Blood Product 250 ml Other 230 ml 50 ml Output Urine Total 0 ml 0 ml Stool Total 300 ml Hemodialysis UF 3100 ml Laboratory Tests 02/04/17 04:00: White Blood Count 11.3H, Red Blood Count 2.46L, Hemoglobin 7.9L, Hematocrit 24.8L, Mean Corpuscular Volume 101H, Mean Corpuscular Hemoglobin 32.1H, Mean Corpuscular Hemoglobin Concent 31.8L, Red Cell Distribution Width 17.4H, Platelet Count 61L, Mean Platelet Volume 10.2H, Neutrophils (%) (Auto) , Lymphocytes (%) (Auto) , Monocytes (%) (Auto) , Eosinophils (%) (Auto) , Basophils (%) (Auto) , Differential Total Cells Counted 100, Neutrophils % ( Manual) 82H, Lymphocytes % (Manual) 9L, Monocytes % (Manual) 3, Eosinophils % ( Manual) 4H, Basophils % (Manual) 0, Band Neutrophils 2, Platelet Estimate DecreasedL, Platelet Morphology Normal, Hypochromasia 1+, Anisocytosis 1+, Macrocytosis 1+, Arterial Blood pH 7.572*H, Arterial Blood Partial Pressure CO2 34.9L, Arterial Blood Partial Pressure O2 55.9L, Arterial Blood HCO3 31.4H, Arterial Blood Oxygen Saturation 90.1L, Arterial Blood Base Excess 8.9, Bon Test Positive, Sodium Level 151H, Potassium Level 3.9, Chloride Level 116H, Carbon Dioxide Level 28, Anion Gap 7, Blood Urea Nitrogen 53H, Creatinine 5.1H, Estimat Glomerular Filtration Rate , Glucose Level 356#H, Calcium Level 9.5, Phosphorus Level 1.6L, Magnesium Level 2.3, Total Bilirubin 1.9H, Direct Bilirubin 1.2H, Aspartate Amino Transf (AST/SGOT) 54H, Alanine Aminotransferase (ALT/SGPT) 13, Alkaline Phosphatase 193H, Total Protein 5.3L, Albumin 1.5L, Globulin 3.8, Albumin/Globulin Ratio 0.4L 02/04/17 21:30: Arterial Blood pH 7.454H, Arterial Blood Partial Pressure CO2 42.3, Arterial Blood Partial Pressure O2 61.5L, Arterial Blood HCO3 29.0H, Arterial Blood Oxygen Saturation 90.6L, Arterial Blood Base Excess 4.6, Bon Test Positive Height (Feet): 5 Height (Inches): 6.00 Weight (Pounds): 272 Oj Medel M.D. Feb 04, 2017 23:04
[2017-02-05] VITALS (24 sets, daily range): BP systolic 91–149; BP diastolic 34–86
[2017-02-05] MEDS: Midodrine 10mg tab NG SCH ×3 (05:53→22:04)
[2017-02-05] MEDS: NovoLOG Insulin Flexpen SUBQ SCH ×3 (05:55→17:59)
[2017-02-05 06:11] LABS: INR 1.8 (0.9-1.1)
[2017-02-05 06:16] LABS: HEMATOCRIT 27.5 % (37.0-47.0); HEMOGLOBIN 8.3 G/DL (12.0-16.0); MEAN CORPUSCULAR VOLUME 100 FL (80-99); PLATELET COUNT 84 K/UL (150-450); RED BLOOD COUNT 2.74 M/UL (4.20-5.40); RED CELL DISTRIBUTION WIDTH 18.3 % (11.6-14.8); WHITE BLOOD COUNT 13.7 K/UL (4.8-10.8)
[2017-02-05 08:16] LABS: ALANINE AMINOTRANSFERASE 11 U/L (12-78); ALBUMIN 1.6 G/DL (3.4-5.0); ALBUMIN/GLOBULIN RATIO 0.5 (1.0-2.7); ALKALINE PHOSPHATASE 170 U/L (46-116); ANION GAP 10 mmol/L (5-15); ASPARTATE AMINO TRANSFERASE 38 U/L (15-37); BILIRUBIN,TOTAL 2.3 MG/DL (0.2-1.0); BLOOD UREA NITROGEN 36 mg/dL (7-18); CALCIUM 8.9 MG/DL (8.5-10.1); CARBON DIOXIDE 30 MMOL/L (21-32); CHLORIDE 116 MMOL/L (98-107); CREATININE 3.9 MG/DL (0.55-1.30); POTASSIUM 4.8 MMOL/L (3.5-5.1); SODIUM 156 MMOL/L (136-145)
[2017-02-05] MEDS: Lactulose 10gm/15ml UDC ORAL SCH ×2 (08:58→17:56)
[2017-02-05 08:59] LABS: BILIRUBIN,DIRECT 1.3 MG/DL (0.0-0.3)
[2017-02-05] MEDS: Vancomycin oral 125mg/2.5ml NG SCH ×2 (08:59→17:57)
[2017-02-05] MEDS: KCl 10% 40mEq/30ml liquid NG SCH ×2 (09:00→12:27)
[2017-02-05] MEDS: Morphine Sulfate 4mg/ml Inj IVP PRN (09:00)
--- NOTE | 2017-02-05 09:00 | Consultation ---
DATE OF CONSULTATION: 02/04/2017 HEAD AND NECK SURGERY/ENT CONSULTATION CONSULTING PHYSICIAN: Pradeep Alberto M.D. REFERRING PHYSICIAN: Elena Melendez M.D./Rl Tee M.D. ATTENDING PHYSICIAN: Rl Tee M.D. INDICATION FOR CONSULTATION: The patient is a 77-year-old female with numerous medical conditions who has been intubated for 10 days due to respiratory failure. I have been asked to evaluate the patient for a tracheostomy. No anticipation of her being extubated in the near future. In last January, she was intubated and ended up with a BiPAP in the [facility], which is a step-down center for 3 months unconscious. 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 MEDICATIONS: Potassium, morphine, ranitidine, estapenem, vancomycin, erythromycin, albuterol, rifaximin, colistin, Raglan, insulin, Dianne-Hex, dopamine, dextrose, lactulose, nystatin, clotrimazole, acetaminophen, nitroglycerin, and MiraLAX. ALLERGIES: She is allergic to penicillin. PHYSICAL EXAMINATION: GENERAL: She is 167.64 cm and 123.405 kilograms, and BMI 43.9. HEENT: Head, normocephalic. Neck, massive extra tissue. Ears, positive light reflex. Normal canals. Teeth, she is missing some. Trach tube is in place. ASSESSMENT AND PLAN: She is a candidate for tracheostomy, but it was I explained to her daughter that her platelets are off and her INR is off. She has numerous other medical problems. Kidney, liver, and heart, which all make anesthetic very complicated and she is a high risk patient for this surgery. There is a greater chance of her dying from this than other patients. Also discussed this with Dr. Melendez. I have also discussed with her daughter the chance of the trach may not come out and that she would not talk through the trach for at least a few weeks. If she does improve significantly, we could then go to a fenestrated trach, which would allow her to talk and then possibly remove it, but at this point, this is a very sick woman, who is alert and responds, but has numerous significant organ failure or impaired issues. I do recommend that we get a hematology followup consult to increase the platelets and reduce the INR and tentatively look at the surgery early next week as I assume it is going to be a few days before all of this, if it can be controlled, will be controlled. The patient is DNR, issue of trach and DNR needs to be clarified. Pradeep Alberto M.D. DR: CAROL JOB#: [id number] CC: HAL
--- NOTE | 2017-02-05 09:14 | Wound Nurse Progress Note ---
Wound RN Progress Note Wound Consult #1 Sacral scattered stage II pressure ulcer. Resolving. Will cont same treatment and recommendation. #2 Left posterior upper thigh stage II pressure ulcer Resolving. Will cont same treatment and recommendation. #3 Left ischial tuberosity stage I pressure ulcer. Skin still intact. No further deterioration noted. will cont same wound care treatment and recommendations #4 Right ischial tuberosity stage I pressure ulcer. Skin still intact. No further deterioration noted at this time. will cont same wound care treatment and recommendations #5 Chemical burn on perineal area. Skin still intact. No further deterioration noted. will cont same wound care treatment and recommendations #6 Chemical burn on abdominal folds and breast folds. No further deterioration noted will cont same wound care treatment and recommendations Reassessed this Pt. Will cont same recommendation and treatment -Local wound care per protocol -Keep clean and dry -Optimize nutrition -Offload both heels -Low air loss SPR mattress -Heel protector on both heels -Turn and reposition -Assess and f/u accordingly for any changes FAIZAN CRUZ RN Feb 05, 2017 09:14
--- NOTE | 2017-02-05 09:38 | General Progress Note ---
Progress Note Progress Note ENT/Head and Neck Surgery Pt coag labs today Plts 81K INR 1.8 Plts count is OK for surgery, but INR is not. Please have Hematology see pt to correct if possible. When platelets above 50K and INR 1.4 or less-will proceed. As of today, Trach tomorrow is unlikely-probably Thursday next . GENARO CAMPOS Feb 05, 2017 09:38
[2017-02-05] MEDS: Nystatin Powder 100,000 units/gm 15gm TOPIC SCH ×3 (09:42→17:57)
--- NOTE | 2017-02-05 10:27 | Pulmonolgy Critical Care Note ---
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 Respiratory: adjust tidal volume, monitor respiratory rate Cardiac: continue pressors, continue to monitor HR/BP Renal: F/U I&O, other - HD Infectious Disease: check cultures, continue antibiotics Gastrointestinal: continue feedings/current rate Endocrine: monitor blood sugar Hematologic: other - Dr Banerjee to correct coagulopathy Neurologic: PRN Ativan, PRN Morphine Affect: PRN ativan Notes Reviewed: psychiatric social worker, cardio Discussed with: nurses, consultants, major case detectiveelectronics engineering manager - Objective Last 24 Hour Vital Signs Date Time Temp Pulse Resp B/P (MAP) Pulse Ox O2 Delivery O2 Flow Rate FiO2 02/05/17 10:00 72 20 91/35 97 Mechanical Ventilator 60 02/05/17 09:00 81 20 113/43 97 Mechanical Ventilator 60 02/05/17 08:56 89 25 60 02/05/17 08:40 100.8 02/05/17 08:00 97 20 139/49 94 Mechanical Ventilator 60 02/05/17 08:00 103 02/05/17 08:00 60 02/05/17 07:00 101.0 112 20 149/48 94 Mechanical Ventilator 60 02/05/17 06:52 116 20 60 02/05/17 06:00 101 20 137/56 97 Mechanical Ventilator 60 02/05/17 05:09 90 20 60 02/05/17 05:00 99.3 80 20 137/37 98 Mechanical Ventilator 60 02/05/17 04:00 84 20 109/34 97 Mechanical Ventilator 70 02/05/17 04:00 84 02/05/17 04:00 60 02/05/17 03:29 80 20 60 02/05/17 03:00 90 20 107/42 99 Mechanical Ventilator 70 02/05/17 02:00 104 22 112/54 99 Mechanical Ventilator 70 02/05/17 01:25 98 20 70 02/05/17 01:00 99.3 110 22 128/86 100 Mechanical Ventilator 70 02/05/17 00:00 85 02/05/17 00:00 70 02/05/17 00:00 87 16 111/53 95 Mechanical Ventilator 60 02/04/17 23:00 91 20 107/47 96 Mechanical Ventilator 60 02/04/17 22:51 106 20 70 02/04/17 22:00 105 21 138/55 93 Mechanical Ventilator 60 02/04/17 21:13 60 02/04/17 21:12 Mechanical Ventilator 02/04/17 21:00 123 26 144/62 94 Mechanical Ventilator 60 02/04/17 21:00 100 20 60 02/04/17 20:00 80 02/04/17 20:00 134 02/04/17 20:00 134 31 136/58 96 Bi-pap 80 02/04/17 19:40 136 33 96 Facial 80 02/04/17 19:20 Bi-pap 80 02/04/17 19:15 94 22 50 02/04/17 19:00 99 20 119/48 100 Mechanical Ventilator 50 02/04/17 18:00 99.2 86 20 104/72 100 Mechanical Ventilator 60 02/04/17 17:30 76 20 60 02/04/17 17:00 91 20 107/43 97 Mechanical Ventilator 50 02/04/17 16:00 87 20 106/41 97 Mechanical Ventilator 50 02/04/17 16:00 50 02/04/17 15:06 74 20 60 02/04/17 15:00 99 20 110/53 95 Mechanical Ventilator 50 02/04/17 14:00 92 20 89/40 95 Mechanical Ventilator 50 02/04/17 13:00 80 20 90/40 98 Mechanical Ventilator 50 02/04/17 12:58 74 02/04/17 12:36 77 20 60 02/04/17 12:00 99.7 77 20 82/53 100 Mechanical Ventilator 50 02/04/17 12:00 72 02/04/17 12:00 50 02/04/17 11:15 100/48 02/04/17 11:00 74 20 100/48 100 Mechanical Ventilator 60 02/04/17 11:00 74 23 60 Status: awake Condition: critical HEENT: atraumatic Neck: full ROM Lungs: clear Heart: HR/BP stable, HR/BP unstable Abdomen: soft, non-tender, active bowel sounds Extremities: no C/C/E, edema Accucheck: 318 Critical Care - Subjective ROS Limited/Unobtainable: No Interval Events: got self extubated and reintubatd by ER physician last night Condition: critical FI02: 60 Vent Support Breath Rate: 20 Vent Support Mode: AC Vent Tidal Volume: 650 Sputum Amount: Small PEEP: 0.0 PIP: 48 Tube Feeding Amount: 35 I&O: Intake and Output 02/05/17 02/06/17 19:00 07:00 Intake Total 105 ml Balance 105 ml Tube Feeding 105 ml CXR: no change ET-Tube: 7.0 ET Position: 20 DIONI TRIANA Feb 05, 2017 10:27
--- NOTE | 2017-02-05 10:56 | Cardiac Electrophysiology PN ---
Assessment/Plan Assessment/Plan 1. Congestive heart failure due to diastolic dysfunction. Ejection fraction 60 % to 65%. EKG NSR with low voltage QRS. On dialysis 2. Shock, resolved.Off Dopamine and on Abx 3. Bradycardia resolved, off dopamine. On midodrine 5 tid 4. Vent dependent respiratory failure. Tracheostomy Thursday. 5. Hyperlipidemia. 6. Cirrhosis 7. Anemia with hemoglobin of 8. 8. Hypernatremia Na 156 per nephrology 9. DNR and DNI 10. ESRD on HD 11. DM CHAZ RN and Dr Melendez Subjective Subjective In ICU unresponsive on Vent.Off pressors.Had 3.1 liters dialysis yesterday Objective Last 24 Hour Vital Signs Date Time Temp Pulse Resp B/P (MAP) Pulse Ox O2 Delivery O2 Flow Rate FiO2 02/05/17 10:00 72 20 91/35 97 Mechanical Ventilator 60 02/05/17 09:00 81 20 113/43 97 Mechanical Ventilator 60 02/05/17 08:56 89 25 60 02/05/17 08:40 100.8 02/05/17 08:00 97 20 139/49 94 Mechanical Ventilator 60 02/05/17 08:00 103 02/05/17 08:00 60 02/05/17 07:00 101.0 112 20 149/48 94 Mechanical Ventilator 60 02/05/17 06:52 116 20 60 02/05/17 06:00 101 20 137/56 97 Mechanical Ventilator 60 02/05/17 05:09 90 20 60 02/05/17 05:00 99.3 80 20 137/37 98 Mechanical Ventilator 60 02/05/17 04:00 84 20 109/34 97 Mechanical Ventilator 70 02/05/17 04:00 84 02/05/17 04:00 60 02/05/17 03:29 80 20 60 02/05/17 03:00 90 20 107/42 99 Mechanical Ventilator 70 02/05/17 02:00 104 22 112/54 99 Mechanical Ventilator 70 02/05/17 01:25 98 20 70 02/05/17 01:00 99.3 110 22 128/86 100 Mechanical Ventilator 70 02/05/17 00:00 85 02/05/17 00:00 70 02/05/17 00:00 87 16 111/53 95 Mechanical Ventilator 60 02/04/17 23:00 91 20 107/47 96 Mechanical Ventilator 60 02/04/17 22:51 106 20 70 02/04/17 22:00 105 21 138/55 93 Mechanical Ventilator 60 02/04/17 21:13 60 02/04/17 21:12 Mechanical Ventilator 02/04/17 21:00 123 26 144/62 94 Mechanical Ventilator 60 02/04/17 21:00 100 20 60 02/04/17 20:00 80 17 20:00 134 02/04/17 20:00 134 31 136/58 96 Bi-pap 80 02/04/17 19:40 136 33 96 Facial 80 02/04/17 19:20 Bi-pap 80 02/04/17 19:15 94 22 50 02/04/17 19:00 99 20 119/48 100 Mechanical Ventilator 50 02/04/17 18:00 99.2 86 20 104/72 100 Mechanical Ventilator 60 02/04/17 17:30 76 20 60 02/04/17 17:00 91 20 107/43 97 Mechanical Ventilator 50 02/04/17 16:00 87 20 106/41 97 Mechanical Ventilator 50 02/04/17 16:00 50 02/04/17 15:06 74 20 60 02/04/17 15:00 99 20 110/53 95 Mechanical Ventilator 50 02/04/17 14:00 92 20 89/40 95 Mechanical Ventilator 50 02/04/17 13:00 80 20 90/40 98 Mechanical Ventilator 50 02/04/17 12:58 74 02/04/17 12:36 77 20 60 02/04/17 12:00 99.7 77 20 82/53 100 Mechanical Ventilator 50 02/04/17 12:00 72 02/04/17 12:00 50 02/04/17 11:15 100/48 02/04/17 11:00 74 20 100/48 100 Mechanical Ventilator 60 02/04/17 11:00 74 23 60 Intake and Output 02/05/17 02/06/17 19:00 07:00 Intake Total 105 ml Balance 105 ml Tube Feeding 105 ml Laboratory Tests Test 02/04/17 21:30 02/05/17 05:00 02/05/17 08:45 Arterial Blood pH 7.454 (7.350-7.450) 7.500 (7.350-7.450) Arterial Blood Partial Pressure CO2 42.3 mmHg (35.0-45.0) 41.4 mmHg (35.0-45.0) Arterial Blood Partial Pressure O2 61.5 mmHg (75.0-100.0) L 65.2 mmHg (75.0-100.0) L Arterial Blood HCO3 29.0 mmol/L (22.0-26.0) H 31.8 mmol/L (22.0-26.0) H Arterial Blood Oxygen Saturation 90.6 % (92.0-98.0) L 92.4 % (92.0-98.0) Arterial Blood Base Excess 4.6 8.0 Bon Test Positive Positive White Blood Count 13.7 K/UL (4.8-10.8) H Red Blood Count 2.74 M/UL (4.20-5.40) L Hemoglobin 8.3 G/DL (12.0-16.0) L Hematocrit 27.5 % (37.0-47.0) L Mean Corpuscular Volume 100 FL (80-99) H Mean Corpuscular Hemoglobin 30.4 PG (27.0-31.0) Mean Corpuscular Hemoglobin Concent 30.3 G/DL (32.0-36.0) L Red Cell Distribution Width 18.3 % (11.6-14.8) H Platelet Count 84 K/UL (150-450) L Mean Platelet Volume 9.2 FL (6.5-10.1) Neutrophils (%) (Auto) % (45.0-75.0) Lymphocytes (%) (Auto) % (20.0-45.0) Monocytes (%) (Auto) % (1.0-10.0) Eosinophils (%) (Auto) % (0.0-3.0) Basophils (%) (Auto) % (0.0-2.0) Differential Total Cells Counted 100 Neutrophils % (Manual) 80 % (45-75) H Lymphocytes % (Manual) 14 % (20-45) L Monocytes % (Manual) 2 % (1-10) Eosinophils % (Manual) 4 % (0-3) H Basophils % (Manual) 0 % (0-2) Band Neutrophils 0 % (0-8) Platelet Estimate Decreased L Platelet Morphology Normal Hypochromasia 2+ Anisocytosis 1+ Macrocytosis 1+ Prothrombin Time 19.0 SEC (9.30-11.50) H Prothromb Time International Ratio 1.8 (0.9-1.1) H Activated Partial Thromboplast Time 37 SEC (23-33) H Sodium Level 156 MMOL/L (136-145) H Potassium Level 4.8 MMOL/L (3.5-5.1) Chloride Level 116 MMOL/L (98-107) H Carbon Dioxide Level 30 MMOL/L (21-32) Anion Gap 10 mmol/L (5-15) Blood Urea Nitrogen 36 mg/dL (7-18) H Creatinine 3.9 MG/DL (0.55-1.30) H Estimat Glomerular Filtration Rate mL/min (>60) Glucose Level 332 MG/DL (74-106) H Uric Acid 3.5 MG/DL (2.6-7.2) Calcium Level 8.9 MG/DL (8.5-10.1) Phosphorus Level 2.0 MG/DL (2.5-4.9) L Magnesium Level 2.0 MG/DL (1.8-2.4) Total Bilirubin 2.3 MG/DL (0.2-1.0) H Direct Bilirubin 1.3 MG/DL (0.0-0.3) H Aspartate Amino Transf (AST/SGOT) 38 U/L (15-37) H Alanine Aminotransferase (ALT/SGPT) 11 U/L (12-78) L Alkaline Phosphatase 170 U/L (46-116) H C-Reactive Protein, Quantitative 14.0 mg/dL (0.00-0.90) H Pro-B-Type Natriuretic Peptide 31873 pg/mL (0-125) H Total Protein 5.0 G/DL (6.4-8.2) L Albumin 1.6 G/DL (3.4-5.0) L Globulin 3.4 g/dL Albumin/Globulin Ratio 0.5 (1.0-2.7) L Objective HEAD AND NECK: No JVD.Orally intubated. Right IJ Mahurkar Catheter LUNGS: Coarse rhonchi CARDIOVASCULAR: Regular S1 and S2 with no gallop or murmur. ABDOMEN: Soft and nontender and obese. EXTREMITIES: 1+ pitting edema. DEAN SHAW Feb 05, 2017 10:56
[2017-02-05] MEDS: Colistin for inhalation INH SCH ×2 (11:02→21:33)
--- NOTE | 2017-02-05 11:05 | General Progress Note ---
Assessment/Plan Assessment/Plan ASSESSMENT AND RECOMMENDATIONS 1.Thrombocytopenia 2/2 sepsis --> improving --> give plts if below 10k or if below 20k and febrile --> ID following 2. Coagulopathy secondary to underlying liver cirrhosis --> INR still elevated --> Have ordered Vitamin K 10 mg sq x1 and 2 units FFP 3. Thrombocytopenia secondary to underlying splenomegaly. 4. Anemia 2/2 chronic disease --> Watch HH, transfuse if below 8 5. Leukocytosis secondary to underlying infection. On abx per id service 6. Sepsis 2/2 UTI 7. Altered mental status 8. RAMYA on CKD,on hemodialysis Subjective ROS Limited/Unobtainable: Yes Allergies: Coded Allergies: PENICILLINS (Unverified Allergy, Unknown, 03/22/15) Subjective remains on vent, unresponsive Objective Last 24 Hour Vital Signs Date Time Temp Pulse Resp B/P (MAP) Pulse Ox O2 Delivery O2 Flow Rate FiO2 02/05/17 10:00 72 20 91/35 97 Mechanical Ventilator 60 02/05/17 09:00 81 20 113/43 97 Mechanical Ventilator 60 02/05/17 08:56 89 25 60 02/05/17 08:40 100.8 02/05/17 08:00 97 20 139/49 94 Mechanical Ventilator 60 02/05/17 08:00 103 02/05/17 08:00 60 02/05/17 07:00 101.0 112 20 149/48 94 Mechanical Ventilator 60 02/05/17 06:52 116 20 60 02/05/17 06:00 101 20 137/56 97 Mechanical Ventilator 60 02/05/17 05:09 90 20 60 02/05/17 05:00 99.3 80 20 137/37 98 Mechanical Ventilator 60 02/05/17 04:00 84 20 109/34 97 Mechanical Ventilator 70 02/05/17 04:00 84 02/05/17 04:00 60 02/05/17 03:29 80 20 60 02/05/17 03:00 90 20 107/42 99 Mechanical Ventilator 70 02/05/17 02:00 104 22 112/54 99 Mechanical Ventilator 70 02/05/17 01:25 98 20 70 02/05/17 01:00 99.3 110 22 128/86 100 Mechanical Ventilator 70 02/05/17 00:00 85 02/05/17 00:00 70 02/05/17 00:00 87 16 111/53 95 Mechanical Ventilator 60 02/04/17 23:00 91 20 107/47 96 Mechanical Ventilator 60 02/04/17 22:51 106 20 70 02/04/17 22:00 105 21 138/55 93 Mechanical Ventilator 60 02/04/17 21:13 60 02/04/17 21:12 Mechanical Ventilator 02/04/17 21:00 123 26 144/62 94 Mechanical Ventilator 60 02/04/17 21:00 100 20 60 02/04/17 20:00 80 02/04/17 20:00 134 02/04/17 20:00 134 31 136/58 96 Bi-pap 80 02/04/17 19:40 136 33 96 Facial 80 02/04/17 19:20 Bi-pap 80 02/04/17 19:15 94 22 50 02/04/17 19:00 99 20 119/48 100 Mechanical Ventilator 50 02/04/17 18:00 99.2 86 20 104/72 100 Mechanical Ventilator 60 02/04/17 17:30 76 20 60 02/04/17 17:00 91 20 107/43 97 Mechanical Ventilator 50 02/04/17 16:00 87 20 106/41 97 Mechanical Ventilator 50 02/04/17 16:00 50 02/04/17 15:06 74 20 60 02/04/17 15:00 99 20 110/53 95 Mechanical Ventilator 50 02/04/17 14:00 92 20 89/40 95 Mechanical Ventilator 50 02/04/17 13:00 80 20 90/40 98 Mechanical Ventilator 50 02/04/17 12:58 74 02/04/17 12:36 77 20 60 02/04/17 12:00 99.7 77 20 82/53 100 Mechanical Ventilator 50 02/04/17 12:00 72 02/04/17 12:00 50 02/04/17 11:15 100/48 Intake and Output 02/05/17 02/06/17 19:00 07:00 Intake Total 105 ml Balance 105 ml Tube Feeding 105 ml Laboratory Tests 02/04/17 21:30: Arterial Blood pH 7.454H, Arterial Blood Partial Pressure CO2 42.3, Arterial Blood Partial Pressure O2 61.5L, Arterial Blood HCO3 29.0H, Arterial Blood Oxygen Saturation 90.6L, Arterial Blood Base Excess 4.6, Bon Test Positive 02/05/17 05:00: White Blood Count 13.7H, Red Blood Count 2.74L, Hemoglobin 8.3L, Hematocrit 27.5L, Mean Corpuscular Volume 100H, Mean Corpuscular Hemoglobin 30.4, Mean Corpuscular Hemoglobin Concent 30.3L, Red Cell Distribution Width 18.3H, Platelet Count 84L, Mean Platelet Volume 9.2, Neutrophils (%) (Auto) , Lymphocytes (%) (Auto) , Monocytes (%) (Auto) , Eosinophils (%) (Auto) , Basophils (%) (Auto) , Differential Total Cells Counted 100, Neutrophils % ( Manual) 80H, Lymphocytes % (Manual) 14L, Monocytes % (Manual) 2, Eosinophils % ( Manual) 4H, Basophils % (Manual) 0, Band Neutrophils 0, Platelet Estimate DecreasedL, Platelet Morphology Normal, Hypochromasia 2+, Anisocytosis 1+, Macrocytosis 1+, Prothrombin Time 19.0H, Prothromb Time International Ratio 1.8H , Activated Partial Thromboplast Time 37H, Sodium Level 156H, Potassium Level 4.8, Chloride Level 116H, Carbon Dioxide Level 30, Anion Gap 10, Blood Urea Nitrogen 36H, Creatinine 3.9H, Estimat Glomerular Filtration Rate , Glucose Level 332H, Uric Acid 3.5, Calcium Level 8.9, Phosphorus Level 2.0L, Magnesium Level 2.0, Total Bilirubin 2.3H, Direct Bilirubin 1.3H, Aspartate Amino Transf ( AST/SGOT) 38H, Alanine Aminotransferase (ALT/SGPT) 11L, Alkaline Phosphatase 170H, C-Reactive Protein, Quantitative 14.0H, Pro-B-Type Natriuretic Peptide 97821V, Total Protein 5.0L, Albumin 1.6L, Globulin 3.4, Albumin/Globulin Ratio 0.5L 02/05/17 08:45: Arterial Blood pH 7.500H, Arterial Blood Partial Pressure CO2 41.4, Arterial Blood Partial Pressure O2 65.2L, Arterial Blood HCO3 31.8H, Arterial Blood Oxygen Saturation 92.4, Arterial Blood Base Excess 8.0, Bon Test Positive Height (Feet): 5 Height (Inches): 6.00 Weight (Pounds): 280 General Appearance: no apparent distress EENT: normal ENT inspection Neck: normal alignment Cardiovascular: normal peripheral pulses Skin: normal pigmentation, warm/dry Chriss Pat Feb 05, 2017 11:05
[2017-02-05] MEDS: DOPamine 400mg/250ml 250 ML IV SCH (11:15)
--- NOTE | 2017-02-05 12:18 | Diagnostic Imaging Report ---
Indication: Abnormal chest sounds Comparison: 02/04/17 A single view chest radiograph was obtained. Findings: Extensive airspace/interstitial disease present. Tubes and lines are satisfactory. The endotracheal tube is repositioned and is now in good position. Impression: Tubes and lines satisfactory including the endotracheal tube. No change otherwise
--- NOTE | 2017-02-05 12:22 | Diagnostic Imaging Report ---
Indication: Dyspnea Comparison: Earlier same day A single view chest radiograph was obtained. Findings: Endotracheal tube is at the tristan and requires repositioning. This was subsequently repositioned. Extensive bilateral filtrates noted once again. Heart size is stable. Other tubes and lines are stable. Impression: Endotracheal tube at the tristan on the current film
[2017-02-05] MEDS ORDERED: Phytonadione 10 MG in D5W 55 ML IVPB ONE (13:00)
[2017-02-05] MEDS ORDERED: D5W 275ml ONE (16:18)
[2017-02-05] MEDS ORDERED: Tubing IV Secondary IV ONE (16:18)
--- NOTE | 2017-02-05 16:30 | General Progress Note ---
Assessment/Plan Status: stable Assessment/Plan Acute on chronic renal failure- multifactorial CHF DM HTN Sepsis Now: Acute respiratory failure- Intubated - Altered level of consciousness - ESBL (extended spectrum beta-lactamase) producing bacteria infection - Cardiomegaly - DM (diabetes mellitus) - HTN (hypertension) - UTI (urinary tract infection) - Anemia - High Cholestrol - COPD - YELENA - Fatty liver Plan: due trach D5w 500 cc Phos NGT On midodrine dialysis 02/06 Transfuse as needed, one unit 02/04 Optimize cardiac and pulmonary status 2D echo results noted avoid nephrotoxics monitor renal parameters Urine studies per orders poor prognosis Subjective ROS Limited/Unobtainable: Yes Allergies: Coded Allergies: PENICILLINS (Unverified Allergy, Unknown, 03/22/15) Objective Last 24 Hour Vital Signs Date Time Temp Pulse Resp B/P (MAP) Pulse Ox O2 Delivery O2 Flow Rate FiO2 02/05/17 16:00 60 02/05/17 16:00 62 20 124/45 100 Mechanical Ventilator 60 02/05/17 16:00 66 02/05/17 15:00 70 20 60 02/05/17 15:00 98.4 66 20 122/40 100 Mechanical Ventilator 60 02/05/17 14:00 90 20 122/36 100 Mechanical Ventilator 60 02/05/17 13:00 90 20 128/52 98 Mechanical Ventilator 60 02/05/17 12:50 88 20 60 02/05/17 12:00 60 02/05/17 12:00 100.0 76 20 106/75 97 60 02/05/17 12:00 69 02/05/17 11:15 106/75 02/05/17 11:07 73 20 100 Mechanical Ventilator 60 02/05/17 11:00 67 20 106/75 96 Mechanical Ventilator 60 02/05/17 10:56 68 20 97 Mechanical Ventilator 60 02/05/17 10:55 68 20 60 02/05/17 10:00 72 20 91/35 97 Mechanical Ventilator 60 02/05/17 09:00 81 20 113/43 97 Mechanical Ventilator 60 02/05/17 08:56 89 25 60 02/05/17 08:40 100.8 02/05/17 08:00 97 20 139/49 94 Mechanical Ventilator 60 02/05/17 08:00 103 02/05/17 08:00 60 02/05/17 07:00 101.0 112 20 149/48 94 Mechanical Ventilator 60 02/05/17 06:52 116 20 60 02/05/17 06:00 101 20 137/56 97 Mechanical Ventilator 60 02/05/17 05:09 90 20 60 02/05/17 05:00 99.3 80 20 137/37 98 Mechanical Ventilator 60 02/05/17 04:00 84 20 109/34 97 Mechanical Ventilator 70 02/05/17 04:00 84 02/05/17 04:00 60 02/05/17 03:29 80 20 60 02/05/17 03:00 90 20 107/42 99 Mechanical Ventilator 70 02/05/17 02:00 104 22 112/54 99 Mechanical Ventilator 70 02/05/17 01:25 98 20 70 02/05/17 01:00 99.3 110 22 128/86 100 Mechanical Ventilator 70 02/05/17 00:00 85 02/05/17 00:00 70 02/05/17 00:00 87 16 111/53 95 Mechanical Ventilator 60 02/04/17 23:00 91 20 107/47 96 Mechanical Ventilator 60 02/04/17 22:51 106 20 70 02/04/17 22:00 105 21 138/55 93 Mechanical Ventilator 60 02/04/17 21:13 60 02/04/17 21:12 Mechanical Ventilator 02/04/17 21:00 123 26 144/62 94 Mechanical Ventilator 60 02/04/17 21:00 100 20 60 02/04/17 20:00 80 02/04/17 20:00 134 02/04/17 20:00 134 31 136/58 96 Bi-pap 80 02/04/17 19:40 136 33 96 Facial 80 02/04/17 19:20 Bi-pap 80 02/04/17 19:15 94 22 50 02/04/17 19:00 99 20 119/48 100 Mechanical Ventilator 50 02/04/17 18:00 99.2 86 20 104/72 100 Mechanical Ventilator 60 02/04/17 17:30 76 20 60 02/04/17 17:00 91 20 107/43 97 Mechanical Ventilator 50 Intake and Output 02/05/17 02/06/17 19:00 07:00 Intake Total 505 ml Balance 505 ml IV Total 110 ml Tube Feeding 315 ml Other 80 ml Laboratory Tests 02/04/17 21:30: Arterial Blood pH 7.454H, Arterial Blood Partial Pressure CO2 42.3, Arterial Blood Partial Pressure O2 61.5L, Arterial Blood HCO3 29.0H, Arterial Blood Oxygen Saturation 90.6L, Arterial Blood Base Excess 4.6, Bon Test Positive 02/05/17 05:00: White Blood Count 13.7H, Red Blood Count 2.74L, Hemoglobin 8.3L, Hematocrit 27.5L, Mean Corpuscular Volume 100H, Mean Corpuscular Hemoglobin 30.4, Mean Corpuscular Hemoglobin Concent 30.3L, Red Cell Distribution Width 18.3H, Platelet Count 84L, Mean Platelet Volume 9.2, Neutrophils (%) (Auto) , Lymphocytes (%) (Auto) , Monocytes (%) (Auto) , Eosinophils (%) (Auto) , Basophils (%) (Auto) , Differential Total Cells Counted 100, Neutrophils % ( Manual) 80H, Lymphocytes % (Manual) 14L, Monocytes % (Manual) 2, Eosinophils % ( Manual) 4H, Basophils % (Manual) 0, Band Neutrophils 0, Platelet Estimate DecreasedL, Platelet Morphology Normal, Hypochromasia 2+, Anisocytosis 1+, Macrocytosis 1+, Prothrombin Time 19.0H, Prothromb Time International Ratio 1.8H , Activated Partial Thromboplast Time 37H, Sodium Level 156H, Potassium Level 4.8, Chloride Level 116H, Carbon Dioxide Level 30, Anion Gap 10, Blood Urea Nitrogen 36H, Creatinine 3.9H, Estimat Glomerular Filtration Rate , Glucose Level 332H, Uric Acid 3.5, Calcium Level 8.9, Phosphorus Level 2.0L, Magnesium Level 2.0, Total Bilirubin 2.3H, Direct Bilirubin 1.3H, Aspartate Amino Transf ( AST/SGOT) 38H, Alanine Aminotransferase (ALT/SGPT) 11L, Alkaline Phosphatase 170H, C-Reactive Protein, Quantitative 14.0H, Pro-B-Type Natriuretic Peptide 42398E, Total Protein 5.0L, Albumin 1.6L, Globulin 3.4, Albumin/Globulin Ratio 0.5L 02/05/17 08:45: Arterial Blood pH 7.500H, Arterial Blood Partial Pressure CO2 41.4, Arterial Blood Partial Pressure O2 65.2L, Arterial Blood HCO3 31.8H, Arterial Blood Oxygen Saturation 92.4, Arterial Blood Base Excess 8.0, Bon Test Positive Height (Feet): 5 Height (Inches): 6.00 Weight (Pounds): 280 General Appearance: no apparent distress Objective no other change ANDERS MOLINA Feb 05, 2017 16:30
[2017-02-05] MEDS ORDERED: Phospha 250 Neutral tab ORAL ONE (17:00)
--- NOTE | 2017-02-05 18:12 | General Progress Note ---
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 - hypernatremia Recommendations - continue Lactulose and Xifaxan - Continue TF - follow labs - HD/lytes per Renal - increase free water - await trach - will need PEG to follow Subjective Allergies: Coded Allergies: PENICILLINS (Unverified Allergy, Unknown, 03/22/15) Subjective above noted d/w RN tolerating TF plans for trach noted d/w Daughter Betsey re PEG placement, and procedure risks Objective Last 24 Hour Vital Signs Date Time Temp Pulse Resp B/P (MAP) Pulse Ox O2 Delivery O2 Flow Rate FiO2 02/05/17 17:09 62 18 60 02/05/17 17:00 70 20 120/45 100 Mechanical Ventilator 60 02/05/17 16:00 60 02/05/17 16:00 62 20 124/45 100 Mechanical Ventilator 60 02/05/17 16:00 66 02/05/17 15:00 70 20 60 02/05/17 15:00 98.4 66 20 122/40 100 Mechanical Ventilator 60 02/05/17 14:00 90 20 122/36 100 Mechanical Ventilator 60 02/05/17 13:00 90 20 128/52 98 Mechanical Ventilator 60 02/05/17 12:50 88 20 60 02/05/17 12:00 60 02/05/17 12:00 100.0 76 20 106/75 97 60 02/05/17 12:00 69 02/05/17 11:15 106/75 02/05/17 11:07 73 20 100 Mechanical Ventilator 60 02/05/17 11:00 67 20 106/75 96 Mechanical Ventilator 60 02/05/17 10:56 68 20 97 Mechanical Ventilator 60 02/05/17 10:55 68 20 60 02/05/17 10:00 72 20 91/35 97 Mechanical Ventilator 60 02/05/17 09:00 81 20 113/43 97 Mechanical Ventilator 60 02/05/17 08:56 89 25 60 02/05/17 08:40 100.8 02/05/17 08:00 97 20 139/49 94 Mechanical Ventilator 60 02/05/17 08:00 103 02/05/17 08:00 60 02/05/17 07:00 101.0 112 20 149/48 94 Mechanical Ventilator 60 02/05/17 06:52 116 20 60 02/05/17 06:00 101 20 137/56 97 Mechanical Ventilator 60 02/05/17 05:09 90 20 60 02/05/17 05:00 99.3 80 20 137/37 98 Mechanical Ventilator 60 02/05/17 04:00 84 20 109/34 97 Mechanical Ventilator 70 02/05/17 04:00 84 02/05/17 04:00 60 02/05/17 03:29 80 20 60 02/05/17 03:00 90 20 107/42 99 Mechanical Ventilator 70 02/05/17 02:00 104 22 112/54 99 Mechanical Ventilator 70 02/05/17 01:25 98 20 70 02/05/17 01:00 99.3 110 22 128/86 100 Mechanical Ventilator 70 02/05/17 00:00 85 02/05/17 00:00 70 02/05/17 00:00 87 16 111/53 95 Mechanical Ventilator 60 02/04/17 23:00 91 20 107/47 96 Mechanical Ventilator 60 02/04/17 22:51 106 20 70 02/04/17 22:00 105 21 138/55 93 Mechanical Ventilator 60 02/04/17 21:13 60 02/04/17 21:12 Mechanical Ventilator 02/04/17 21:00 123 26 144/62 94 Mechanical Ventilator 60 02/04/17 21:00 100 20 60 02/04/17 20:00 80 02/04/17 20:00 134 02/04/17 20:00 134 31 136/58 96 Bi-pap 80 02/04/17 19:40 136 33 96 Facial 80 02/04/17 19:20 Bi-pap 80 02/04/17 19:15 94 22 50 02/04/17 19:00 99 20 119/48 100 Mechanical Ventilator 50 02/04/17 18:00 99.2 86 20 104/72 100 Mechanical Ventilator 60 Intake and Output 02/05/17 02/06/17 19:00 07:00 Intake Total 540 ml Balance 540 ml IV Total 110 ml Tube Feeding 350 ml Other 80 ml Laboratory Tests 02/04/17 21:30: Arterial Blood pH 7.454H, Arterial Blood Partial Pressure CO2 42.3, Arterial Blood Partial Pressure O2 61.5L, Arterial Blood HCO3 29.0H, Arterial Blood Oxygen Saturation 90.6L, Arterial Blood Base Excess 4.6, Bon Test Positive 02/05/17 05:00: White Blood Count 13.7H, Red Blood Count 2.74L, Hemoglobin 8.3L, Hematocrit 27.5L, Mean Corpuscular Volume 100H, Mean Corpuscular Hemoglobin 30.4, Mean Corpuscular Hemoglobin Concent 30.3L, Red Cell Distribution Width 18.3H, Platelet Count 84L, Mean Platelet Volume 9.2, Neutrophils (%) (Auto) , Lymphocytes (%) (Auto) , Monocytes (%) (Auto) , Eosinophils (%) (Auto) , Basophils (%) (Auto) , Differential Total Cells Counted 100, Neutrophils % ( Manual) 80H, Lymphocytes % (Manual) 14L, Monocytes % (Manual) 2, Eosinophils % ( Manual) 4H, Basophils % (Manual) 0, Band Neutrophils 0, Platelet Estimate DecreasedL, Platelet Morphology Normal, Hypochromasia 2+, Anisocytosis 1+, Macrocytosis 1+, Prothrombin Time 19.0H, Prothromb Time International Ratio 1.8H , Activated Partial Thromboplast Time 37H, Sodium Level 156H, Potassium Level 4.8, Chloride Level 116H, Carbon Dioxide Level 30, Anion Gap 10, Blood Urea Nitrogen 36H, Creatinine 3.9H, Estimat Glomerular Filtration Rate , Glucose Level 332H, Uric Acid 3.5, Calcium Level 8.9, Phosphorus Level 2.0L, Magnesium Level 2.0, Total Bilirubin 2.3H, Direct Bilirubin 1.3H, Aspartate Amino Transf ( AST/SGOT) 38H, Alanine Aminotransferase (ALT/SGPT) 11L, Alkaline Phosphatase 170H, C-Reactive Protein, Quantitative 14.0H, Pro-B-Type Natriuretic Peptide [id number], Total Protein 5.0L, Albumin 1.6L, Globulin 3.4, Albumin/Globulin Ratio 0.5L 02/05/17 08:45: Arterial Blood pH 7.500H, Arterial Blood Partial Pressure CO2 41.4, Arterial Blood Partial Pressure O2 65.2L, Arterial Blood HCO3 31.8H, Arterial Blood Oxygen Saturation 92.4, Arterial Blood Base Excess 8.0, Bon Test Positive Height (Feet): 5 Height (Inches): 6.00 Weight (Pounds): 280 Objective Obese WW NCAT, (+) ETT and NGT supple CTA RRR soft ND NT (+) edema confused KIERSTEN DAVIES Feb 05, 2017 18:12
--- NOTE | 2017-02-05 18:26 | Internal Med Progress Note ---
Subjective Date of Service: Feb 05, 2017 Physician Name Katharina Pond Attending Physician Rl Tee MD Current Medications Medications (Trade) Dose Ordered Sig/Pavel Route PRN Reason Start Time Stop Time Status Last Admin Dose Admin Acetaminophen (Tylenol) 650 mg Q4H PRN ORAL T>100.5 01/21/17 14:30 02/15/17 14:29 02/05/17 07:41 Chlorhexidine Gluconate (Dianne-Hex 2%) 1 applic DAILY@2000 TOPIC 01/25/17 20:00 02/24/17 19:59 02/04/17 21:18 Clotrimazole (Lotrimin) 1 applic EVERY 12 HOURS TOPIC 01/21/17 21:00 02/18/17 13:59 02/05/17 09:00 Colistimethate Sodium (Colistin *inhalation use only*) 75 mg Q12HRT INH 01/29/17 22:00 02/07/17 23:59 02/05/17 11:02 Dextrose (Dextrose 50%) STAT PRN IV Hypoglycemia 01/27/17 07:45 02/26/17 07:44 Dopamine HCl/ Dextrose 250 ml @ 0 mls/hr Q24H IV 01/25/17 11:15 02/24/17 11:14 01/30/17 10:30 Ertapenem 0.5 gm/ Sodium Chloride 55 ml @ 110 mls/hr Q24H IVPB 02/02/17 21:00 02/07/17 20:59 02/04/17 21:18 Insulin Aspart (NovoLOG) EVERY 6 HOURS SUBQ 01/27/17 18:00 02/26/17 11:29 02/05/17 17:59 Lactulose (Cephulac) 10 gm BID ORAL 01/23/17 09:00 02/18/17 12:59 02/05/17 17:56 Metoclopramide HCl (Reglan) 5 mg Q8H PRN IVP Nausea & Vomiting 01/29/17 11:30 02/28/17 11:29 01/31/17 11:46 Midodrine (Pro-Amatine) 10 mg Q8HR NG 02/03/17 14:00 03/05/17 13:59 02/05/17 05:53 Morphine Sulfate (Morphine Sulfate) 2 mg Q4H PRN IVP PAIN 4-10 02/04/17 11:45 02/11/17 11:44 02/05/17 09:00 Nitroglycerin (Ntg) 0.4 mg Q5MIN X 3 DOSES PRN SL Prn Chest Pain 01/21/17 14:30 02/15/17 14:29 Nystatin (Nystop Powder) 1 applic THREE TIMES A DAY TOPIC 01/22/17 13:00 02/21/17 12:59 02/05/17 17:57 Ranitidine HCl (Zantac) 150 mg DAILY NG 02/03/17 18:00 03/05/17 17:59 02/05/17 08:59 Rifaximin (Xifaxan) 550 mg EVERY 12 HOURS ORAL 01/29/17 12:00 03/07/17 11:59 02/05/17 08:59 Vancomycin HCl (Vancomycin) 125 mg BID NG 02/02/17 16:00 02/09/17 15:59 02/05/17 17:57 Allergies: Coded Allergies: PENICILLINS (Unverified Allergy, Unknown, 03/22/15) ROS Limited/Unobtainable: Yes Subjective 76 YO F admitted with altered mental status. Intubated and sedated. ICU . Cover for Int Nishant-Dr Tee. Await tracheostomy Objective Last Vital Signs Date Time Temp Pulse Resp B/P (MAP) Pulse Ox O2 Delivery O2 Flow Rate FiO2 02/05/17 18:00 69 20 121/53 98 Mechanical Ventilator 60 02/05/17 15:00 98.4 02/02/17 16:30 15.0 Laboratory Tests Test 02/04/17 21:30 02/05/17 05:00 02/05/17 08:45 Arterial Blood pH 7.454 (7.350-7.450) 7.500 (7.350-7.450) Arterial Blood Partial Pressure CO2 42.3 mmHg (35.0-45.0) 41.4 mmHg (35.0-45.0) Arterial Blood Partial Pressure O2 61.5 mmHg (75.0-100.0) L 65.2 mmHg (75.0-100.0) L Arterial Blood HCO3 29.0 mmol/L (22.0-26.0) H 31.8 mmol/L (22.0-26.0) H Arterial Blood Oxygen Saturation 90.6 % (92.0-98.0) L 92.4 % (92.0-98.0) Arterial Blood Base Excess 4.6 8.0 Bon Test Positive Positive White Blood Count 13.7 K/UL (4.8-10.8) H Red Blood Count 2.74 M/UL (4.20-5.40) L Hemoglobin 8.3 G/DL (12.0-16.0) L Hematocrit 27.5 % (37.0-47.0) L Mean Corpuscular Volume 100 FL (80-99) H Mean Corpuscular Hemoglobin 30.4 PG (27.0-31.0) Mean Corpuscular Hemoglobin Concent 30.3 G/DL (32.0-36.0) L Red Cell Distribution Width 18.3 % (11.6-14.8) H Platelet Count 84 K/UL (150-450) L Mean Platelet Volume 9.2 FL (6.5-10.1) Neutrophils (%) (Auto) % (45.0-75.0) Lymphocytes (%) (Auto) % (20.0-45.0) Monocytes (%) (Auto) % (1.0-10.0) Eosinophils (%) (Auto) % (0.0-3.0) Basophils (%) (Auto) % (0.0-2.0) Differential Total Cells Counted 100 Neutrophils % (Manual) 80 % (45-75) H Lymphocytes % (Manual) 14 % (20-45) L Monocytes % (Manual) 2 % (1-10) Eosinophils % (Manual) 4 % (0-3) H Basophils % (Manual) 0 % (0-2) Band Neutrophils 0 % (0-8) Platelet Estimate Decreased L Platelet Morphology Normal Hypochromasia 2+ Anisocytosis 1+ Macrocytosis 1+ Prothrombin Time 19.0 SEC (9.30-11.50) H Prothromb Time International Ratio 1.8 (0.9-1.1) H Activated Partial Thromboplast Time 37 SEC (23-33) H Sodium Level 156 MMOL/L (136-145) H Potassium Level 4.8 MMOL/L (3.5-5.1) Chloride Level 116 MMOL/L (98-107) H Carbon Dioxide Level 30 MMOL/L (21-32) Anion Gap 10 mmol/L (5-15) Blood Urea Nitrogen 36 mg/dL (7-18) H Creatinine 3.9 MG/DL (0.55-1.30) H Estimat Glomerular Filtration Rate mL/min (>60) Glucose Level 332 MG/DL (74-106) H Uric Acid 3.5 MG/DL (2.6-7.2) Calcium Level 8.9 MG/DL (8.5-10.1) Phosphorus Level 2.0 MG/DL (2.5-4.9) L Magnesium Level 2.0 MG/DL (1.8-2.4) Total Bilirubin 2.3 MG/DL (0.2-1.0) H Direct Bilirubin 1.3 MG/DL (0.0-0.3) H Aspartate Amino Transf (AST/SGOT) 38 U/L (15-37) H Alanine Aminotransferase (ALT/SGPT) 11 U/L (12-78) L Alkaline Phosphatase 170 U/L (46-116) H C-Reactive Protein, Quantitative 14.0 mg/dL (0.00-0.90) H Pro-B-Type Natriuretic Peptide 89294 pg/mL (0-125) H Total Protein 5.0 G/DL (6.4-8.2) L Albumin 1.6 G/DL (3.4-5.0) L Globulin 3.4 g/dL Albumin/Globulin Ratio 0.5 (1.0-2.7) L Intake and Output 02/05/17 02/06/17 19:00 07:00 Intake Total 925 ml Output Total 400 ml Balance 525 ml IV Total 110 ml Tube Feeding 385 ml Blood Product 300 ml Other 130 ml Output Urine Total 0 ml Stool Total 400 ml Objective General Appearance: WD/WN, no apparent distress, moderate distress, obese EENT: PERRL/EOMI, normal ENT inspection Neck: non-tender, normal alignment, supple, normal inspection Cardiovascular: normal peripheral pulses, normal rate, regular rhythm, no gallop/murmur, no JVD Respiratory/Chest: Mechanical vent; chest wall non-tender, lungs with coarse upper air sounds, Bilat wheezes and rales, respiratory distress Abdomen: G-Tube; non tender, no organomegaly, no mass 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 Baumanii. See ID note. Continur ertaoenem and vanco per ID (2) CHF (congestive heart failure) Assessment & Plan: LVEF 60-65%. see cardiology note. (3) DM (diabetes mellitus) Assessment & Plan: Continue novolog sliding scale (4) Hypercholesteremia (5) HTN (hypertension) Assessment & Plan: Currently hypotensive. (6) Uncontrolled diabetes mellitus (7) Cirrhosis Assessment & Plan: see GI note. (8) Anemia Assessment & Plan: S/P transfusion 2 units PRBC (9) Altered mental status Assessment & Plan: Worsening. ICU status (10) Renal failure Assessment & Plan: Next hemodialysis 02/02/17. See nephrology note. (11) Respiratory failure Assessment & Plan: Due to CHF. Cont mech vent per pulmonary-needs tracheostomy. Continue antibiotic per ID (12) Bradycardia Assessment & Plan: see cardiology note. (13) Hypotension Assessment & Plan: Continue dopamine Status: not improved KATHARINA POND Feb 05, 2017 18:26
--- NOTE | 2017-02-05 19:02 | General Progress Note ---
Progress Note Progress Note ENT/HNS Progress notes from today reviewed. Coags still not adequate for trach. I do see pt is getting Vit K and FFP Will check back tomorrow re status. GENARO CAMPOS Feb 05, 2017 19:02
--- NOTE | 2017-02-05 19:14 | Infectious Diseases Prog Note ---
Assessment/Plan Assessment/Plan Assessment: Encephalopathy- possibly multifactorial- hepatic encephalopathy, infection- worsening now due to hypercapnea (transferred to ICU 01/21), on bipap> intubated Acute respiratory failure 2ry to hypercapnea, PNA; now ARDS - self-extubated, re -intubated 02/04 -CXR 02/04: Pulmonary parenchymal disease, likely ARDS, overall stable Sepsis 2ry to PNA and Bacteremia HCAP 2ry to ESBL. 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 -repeat sp cx 01/26: +4 MDR A.baumani (I Ceftazidime, R to carbapenem and aminoglycosides, Minocycline; S to Colistin, Polymyxin B) suspect Colonizer ( improving not on tx) -Sp cx 01/22: +2 ESBK E.coli, +2 C. albicans (colonizer) MRSA bacteremia- with repeat Bcx growing CoNS (?contaminant vs real). BCx cleared 01/26 SP Rx -01/16 04/23 BCx MRSA (S. Vanco JOSE A 1), repeat Bcx 01/19 Neg, 01/21 04/23 CoNS ( contaminant), 01/24 Bcx 04/23 CoNs, Bcx 01/26 Neg x4, 01/28 BCx neg -TTE 01/19(limited study): No aortic regurgitation.Trace mitral regurgitation.Mitral diastolic velocities suggest reduced left ventricular relaxation c/w diastolic dysfunction grade. Moderate tricuspid regurgitation. Leukocytosis, previously worsened up to 24, now recurrent, mild, worsening, new fever r/o new KRISHAN ?aspiration event 02/04 -01/26. pyuria improving (WBC 10-15); ucx C. albicans (colonizer) -01/22 u/a WBC 30-40, ucx yeast (colonizer) -Sp cx ESBL E.coli, diaz (colonizer) Elevated LFTs, improving -[facility] hep panel neg Probable MDR UTI, pyuria, s/p Rx -u/a 01/16 WBC too many to count,nit neg ,leuk est +3; UCx x3 grew >100K MDR A.baumani complex (S. tigecycline/Minocycline, Polymixin B/Colistin), >100K PsA (S. Cefepime, Zosyn; R Cipro/Levo); a prior isolated on a ucx from the same day isolated MDR PsA (I. Cefepime, R ceftzadime, Meropenem; S. Tygecicine, amikacin) -renal u/s: Nondiagnostic exam Metabolic acidosis, 2ry to renal failure- now improved after initiation of HD 01/28 RAMYA on CKD, started on HD 01/28 Cirrhosis Anemia & thrombocytopenia DM type 2 Morbid obesity DNR PLAN: -re-culture, re-start IV vancomycin given worsening leukocytosis, new fever -Continue Ertapenem for ESBL E. coli in sputum (abx d# 15 ) -02/03 s/p IV Vancomycin #15/14 -s/p 1 dose Amikacin 10/ -s/p 7d Cefepime 10/ -s/p 3d Amikacin 10/ -s/p 7d Minocycline 10/ -s/p 3d IV vanco 01/18 -continue prophylactic PO Vancomycin #14 -Continue Inhaled colistin 75mg bid # for MDR ABC in sputum -monitor closely; if HD decompensation add IV Colistin -requested ceftazidime-avibactam (not available), tigecycline and minocycline susceptibilities 01/29 monitor CBC, temperatures monitor BMP monitor CXR vent support, trach eventually Subjective Allergies: Coded Allergies: PENICILLINS (Unverified Allergy, Unknown, 03/22/15) Subjective new fever, worsening leukocytosis re-intubated last night Objective Vital Signs Last 24 Hour Vital Signs Date Time Temp Pulse Resp B/P (MAP) Pulse Ox O2 Delivery O2 Flow Rate FiO2 02/05/17 18:55 66 20 60 02/05/17 18:00 69 20 121/53 98 Mechanical Ventilator 60 02/05/17 17:09 62 18 60 02/05/17 17:00 70 20 120/45 100 Mechanical Ventilator 60 02/05/17 16:00 60 02/05/17 16:00 62 20 124/45 100 Mechanical Ventilator 60 02/05/17 16:00 66 02/05/17 15:00 70 20 60 02/05/17 15:00 98.4 66 20 122/40 100 Mechanical Ventilator 60 02/05/17 14:00 90 20 122/36 100 Mechanical Ventilator 60 02/05/17 13:00 90 20 128/52 98 Mechanical Ventilator 60 02/05/17 12:50 88 20 60 02/05/17 12:00 60 02/05/17 12:00 100.0 76 20 106/75 97 60 02/05/17 12:00 69 02/05/17 11:15 106/75 02/05/17 11:07 73 20 100 Mechanical Ventilator 60 02/05/17 11:00 67 20 106/75 96 Mechanical Ventilator 60 02/05/17 10:56 68 20 97 Mechanical Ventilator 60 02/05/17 10:55 68 20 60 02/05/17 10:00 72 20 91/35 97 Mechanical Ventilator 60 02/05/17 09:00 81 20 113/43 97 Mechanical Ventilator 60 02/05/17 08:56 89 25 60 02/05/17 08:40 100.8 02/05/17 08:00 97 20 139/49 94 Mechanical Ventilator 60 02/05/17 08:00 103 02/05/17 08:00 60 02/05/17 07:00 101.0 112 20 149/48 94 Mechanical Ventilator 60 02/05/17 06:52 116 20 60 02/05/17 06:00 101 20 137/56 97 Mechanical Ventilator 60 02/05/17 05:09 90 20 60 02/05/17 05:00 99.3 80 20 137/37 98 Mechanical Ventilator 60 02/05/17 04:00 84 20 109/34 97 Mechanical Ventilator 70 02/05/17 04:00 84 02/05/17 04:00 60 02/05/17 03:29 80 20 60 02/05/17 03:00 90 20 107/42 99 Mechanical Ventilator 70 02/05/17 02:00 104 22 112/54 99 Mechanical Ventilator 70 02/05/17 01:25 98 20 70 02/05/17 01:00 99.3 110 22 128/86 100 Mechanical Ventilator 70 02/05/17 00:00 85 02/05/17 00:00 70 02/05/17 00:00 87 16 111/53 95 Mechanical Ventilator 60 02/04/17 23:00 91 20 107/47 96 Mechanical Ventilator 60 02/04/17 22:51 106 20 70 02/04/17 22:00 105 21 138/55 93 Mechanical Ventilator 60 02/04/17 21:13 60 02/04/17 21:12 Mechanical Ventilator 02/04/17 21:00 123 26 144/62 94 Mechanical Ventilator 60 02/04/17 21:00 100 20 60 02/04/17 20:00 80 02/04/17 20:00 134 02/04/17 20:00 134 31 136/58 96 Bi-pap 80 02/04/17 19:40 136 33 96 Facial 80 02/04/17 19:20 Bi-pap 80 02/04/17 19:15 94 22 50 Height (Feet): 5 Height (Inches): 6.00 Weight (Pounds): 280 General Appearance: other - intubated Respiratory/Chest: decreased breath sounds Cardiovascular: normal rate, regular rhythm Abdomen: normal bowel sounds, soft, non tender, non distended Laboratory Tests Test 02/04/17 21:30 02/05/17 05:00 02/05/17 08:45 Arterial Blood pH 7.454 (7.350-7.450) 7.500 (7.350-7.450) Arterial Blood Partial Pressure CO2 42.3 mmHg (35.0-45.0) 41.4 mmHg (35.0-45.0) Arterial Blood Partial Pressure O2 61.5 mmHg (75.0-100.0) L 65.2 mmHg (75.0-100.0) L Arterial Blood HCO3 29.0 mmol/L (22.0-26.0) H 31.8 mmol/L (22.0-26.0) H Arterial Blood Oxygen Saturation 90.6 % (92.0-98.0) L 92.4 % (92.0-98.0) Arterial Blood Base Excess 4.6 8.0 Bon Test Positive Positive White Blood Count 13.7 K/UL (4.8-10.8) H Red Blood Count 2.74 M/UL (4.20-5.40) L Hemoglobin 8.3 G/DL (12.0-16.0) L Hematocrit 27.5 % (37.0-47.0) L Mean Corpuscular Volume 100 FL (80-99) H Mean Corpuscular Hemoglobin 30.4 PG (27.0-31.0) Mean Corpuscular Hemoglobin Concent 30.3 G/DL (32.0-36.0) L Red Cell Distribution Width 18.3 % (11.6-14.8) H Platelet Count 84 K/UL (150-450) L Mean Platelet Volume 9.2 FL (6.5-10.1) Neutrophils (%) (Auto) % (45.0-75.0) Lymphocytes (%) (Auto) % (20.0-45.0) Monocytes (%) (Auto) % (1.0-10.0) Eosinophils (%) (Auto) % (0.0-3.0) Basophils (%) (Auto) % (0.0-2.0) Differential Total Cells Counted 100 Neutrophils % (Manual) 80 % (45-75) H Lymphocytes % (Manual) 14 % (20-45) L Monocytes % (Manual) 2 % (1-10) Eosinophils % (Manual) 4 % (0-3) H Basophils % (Manual) 0 % (0-2) Band Neutrophils 0 % (0-8) Platelet Estimate Decreased L Platelet Morphology Normal Hypochromasia 2+ Anisocytosis 1+ Macrocytosis 1+ Prothrombin Time 19.0 SEC (9.30-11.50) H Prothromb Time International Ratio 1.8 (0.9-1.1) H Activated Partial Thromboplast Time 37 SEC (23-33) H Sodium Level 156 MMOL/L (136-145) H Potassium Level 4.8 MMOL/L (3.5-5.1) Chloride Level 116 MMOL/L (98-107) H Carbon Dioxide Level 30 MMOL/L (21-32) Anion Gap 10 mmol/L (5-15) Blood Urea Nitrogen 36 mg/dL (7-18) H Creatinine 3.9 MG/DL (0.55-1.30) H Estimat Glomerular Filtration Rate mL/min (>60) Glucose Level 332 MG/DL (74-106) H Uric Acid 3.5 MG/DL (2.6-7.2) Calcium Level 8.9 MG/DL (8.5-10.1) Phosphorus Level 2.0 MG/DL (2.5-4.9) L Magnesium Level 2.0 MG/DL (1.8-2.4) Total Bilirubin 2.3 MG/DL (0.2-1.0) H Direct Bilirubin 1.3 MG/DL (0.0-0.3) H Aspartate Amino Transf (AST/SGOT) 38 U/L (15-37) H Alanine Aminotransferase (ALT/SGPT) 11 U/L (12-78) L Alkaline Phosphatase 170 U/L (46-116) H C-Reactive Protein, Quantitative 14.0 mg/dL (0.00-0.90) H Pro-B-Type Natriuretic Peptide 26023 pg/mL (0-125) H Total Protein 5.0 G/DL (6.4-8.2) L Albumin 1.6 G/DL (3.4-5.0) L Globulin 3.4 g/dL Albumin/Globulin Ratio 0.5 (1.0-2.7) L Current Medications Medications (Trade) Dose Ordered Sig/Pavel Route PRN Reason Start Time Stop Time Status Last Admin Dose Admin Acetaminophen (Tylenol) 650 mg Q4H PRN ORAL T>100.5 01/21/17 14:30 02/15/17 14:29 02/05/17 07:41 Chlorhexidine Gluconate (Dianne-Hex 2%) 1 applic DAILY@2000 TOPIC 01/25/17 20:00 02/24/17 19:59 02/04/17 21:18 Clotrimazole (Lotrimin) 1 applic EVERY 12 HOURS TOPIC 01/21/17 21:00 02/18/17 13:59 02/05/17 09:00 Colistimethate Sodium (Colistin *inhalation use only*) 75 mg Q12HRT INH 01/29/17 22:00 02/07/17 23:59 02/05/17 11:02 Dextrose (Dextrose 50%) STAT PRN IV Hypoglycemia 01/27/17 07:45 02/26/17 07:44 Dopamine HCl/ Dextrose 250 ml @ 0 mls/hr Q24H IV 01/25/17 11:15 02/24/17 11:14 01/30/17 10:30 Ertapenem 0.5 gm/ Sodium Chloride 55 ml @ 110 mls/hr Q24H IVPB 02/02/17 21:00 02/07/17 20:59 02/04/17 21:18 Insulin Aspart (NovoLOG) EVERY 6 HOURS SUBQ 01/27/17 18:00 02/26/17 11:29 02/05/17 17:59 Lactulose (Cephulac) 10 gm BID ORAL 01/23/17 09:00 02/18/17 12:59 02/05/17 17:56 Metoclopramide HCl (Reglan) 5 mg Q8H PRN IVP Nausea & Vomiting 01/29/17 11:30 02/28/17 11:29 01/31/17 11:46 Midodrine (Pro-Amatine) 10 mg Q8HR NG 02/03/17 14:00 03/05/17 13:59 02/05/17 05:53 Morphine Sulfate (Morphine Sulfate) 2 mg Q4H PRN IVP PAIN 4-10 02/04/17 11:45 02/11/17 11:44 02/05/17 09:00 Nitroglycerin (Ntg) 0.4 mg Q5MIN X 3 DOSES PRN SL Prn Chest Pain 01/21/17 14:30 02/15/17 14:29 Nystatin (Nystop Powder) 1 applic THREE TIMES A DAY TOPIC 01/22/17 13:00 02/21/17 12:59 02/05/17 17:57 Ranitidine HCl (Zantac) 150 mg DAILY NG 02/03/17 18:00 03/05/17 17:59 02/05/17 08:59 Rifaximin (Xifaxan) 550 mg EVERY 12 HOURS ORAL 01/29/17 12:00 03/07/17 11:59 02/05/17 08:59 Vancomycin HCl (Vancomycin) 125 mg BID NG 02/02/17 16:00 02/09/17 15:59 02/05/17 17:57 KAYLA LOUIS Feb 05, 2017 19:14
[2017-02-05] MEDS: Dyna-Hex 2% Top Sol 2oz TOPIC SCH (20:33)
[2017-02-05] MEDS ORDERED: Vancomycin 1250mg/D5W 250ml 250 ML IVPB ONE (21:00)
[2017-02-05] MEDS: Ertapenem 0.5 GM in NS 55 ML IVPB SCH (21:16)
--- NOTE | 2017-02-05 22:30 | General Progress Note ---
Assessment/Plan Status: unchanged Assessment/Plan encephalopathy Subjective Neurologic/Psychiatric: Reports: no symptoms, anxiety Allergies: Coded Allergies: PENICILLINS (Unverified Allergy, Unknown, 03/22/15) Subjective waxing and waning of consciousness.agitated at times unchanged since previous encounter Objective Last 24 Hour Vital Signs Date Time Temp Pulse Resp B/P (MAP) Pulse Ox O2 Delivery O2 Flow Rate FiO2 02/05/17 22:00 70 20 127/46 100 Mechanical Ventilator 60 02/05/17 21:48 74 20 99 Mechanical Ventilator 60 02/05/17 21:33 65 20 100 Mechanical Ventilator 60 02/05/17 21:30 65 20 60 02/05/17 21:00 72 20 120/49 100 Mechanical Ventilator 60 02/05/17 20:00 60 02/05/17 20:00 98.8 68 20 131/52 100 Mechanical Ventilator 60 02/05/17 19:00 66 20 126/46 100 Mechanical Ventilator 60 02/05/17 18:55 66 20 60 02/05/17 18:00 69 20 121/53 98 Mechanical Ventilator 60 02/05/17 17:09 62 18 60 02/05/17 17:00 70 20 120/45 100 Mechanical Ventilator 60 02/05/17 16:00 60 02/05/17 16:00 62 20 124/45 100 Mechanical Ventilator 60 02/05/17 16:00 66 02/05/17 15:00 70 20 60 02/05/17 15:00 98.4 66 20 122/40 100 Mechanical Ventilator 60 02/05/17 14:00 90 20 122/36 100 Mechanical Ventilator 60 02/05/17 13:00 90 20 128/52 98 Mechanical Ventilator 60 02/05/17 12:50 88 20 60 02/05/17 12:00 60 02/05/17 12:00 100.0 76 20 106/75 97 60 02/05/17 12:00 69 02/05/17 11:15 106/75 02/05/17 11:07 73 20 100 Mechanical Ventilator 60 02/05/17 11:00 67 20 106/75 96 Mechanical Ventilator 60 02/05/17 10:56 68 20 97 Mechanical Ventilator 60 02/05/17 10:55 68 20 60 02/05/17 10:00 72 20 91/35 97 Mechanical Ventilator 60 02/05/17 09:00 81 20 113/43 97 Mechanical Ventilator 60 02/05/17 08:56 89 25 60 02/05/17 08:40 100.8 02/05/17 08:00 97 20 139/49 94 Mechanical Ventilator 60 02/05/17 08:00 103 02/05/17 08:00 60 02/05/17 07:00 101.0 112 20 149/48 94 Mechanical Ventilator 60 02/05/17 06:52 116 20 60 02/05/17 06:00 101 20 137/56 97 Mechanical Ventilator 60 02/05/17 05:09 90 20 60 02/05/17 05:00 99.3 80 20 137/37 98 Mechanical Ventilator 60 02/05/17 04:00 84 20 109/34 97 Mechanical Ventilator 70 02/05/17 04:00 84 02/05/17 04:00 60 02/05/17 03:29 80 20 60 02/05/17 03:00 90 20 107/42 99 Mechanical Ventilator 70 02/05/17 02:00 104 22 112/54 99 Mechanical Ventilator 70 02/05/17 01:25 98 20 70 02/05/17 01:00 99.3 110 22 128/86 100 Mechanical Ventilator 70 02/05/17 00:00 85 02/05/17 00:00 70 02/05/17 00:00 87 16 111/53 95 Mechanical Ventilator 60 02/04/17 23:00 91 20 107/47 96 Mechanical Ventilator 60 02/04/17 22:51 106 20 70 Intake and Output 02/05/17 02/06/17 19:00 07:00 Intake Total 1872 ml 105 ml Output Total 400 ml Balance 1472 ml 105 ml IV Total 722 ml Tube Feeding 420 ml 105 ml Blood Product 600 ml Other 130 ml Output Urine Total 0 ml Stool Total 400 ml Laboratory Tests 02/05/17 05:00: White Blood Count 13.7H, Red Blood Count 2.74L, Hemoglobin 8.3L, Hematocrit 27.5L, Mean Corpuscular Volume 100H, Mean Corpuscular Hemoglobin 30.4, Mean Corpuscular Hemoglobin Concent 30.3L, Red Cell Distribution Width 18.3H, Platelet Count 84L, Mean Platelet Volume 9.2, Neutrophils (%) (Auto) , Lymphocytes (%) (Auto) , Monocytes (%) (Auto) , Eosinophils (%) (Auto) , Basophils (%) (Auto) , Differential Total Cells Counted 100, Neutrophils % ( Manual) 80H, Lymphocytes % (Manual) 14L, Monocytes % (Manual) 2, Eosinophils % ( Manual) 4H, Basophils % (Manual) 0, Band Neutrophils 0, Platelet Estimate DecreasedL, Platelet Morphology Normal, Hypochromasia 2+, Anisocytosis 1+, Macrocytosis 1+, Prothrombin Time 19.0H, Prothromb Time International Ratio 1.8H , Activated Partial Thromboplast Time 37H, Sodium Level 156H, Potassium Level 4.8, Chloride Level 116H, Carbon Dioxide Level 30, Anion Gap 10, Blood Urea Nitrogen 36H, Creatinine 3.9H, Estimat Glomerular Filtration Rate , Glucose Level 332H, Uric Acid 3.5, Calcium Level 8.9, Phosphorus Level 2.0L, Magnesium Level 2.0, Total Bilirubin 2.3H, Direct Bilirubin 1.3H, Aspartate Amino Transf ( AST/SGOT) 38H, Alanine Aminotransferase (ALT/SGPT) 11L, Alkaline Phosphatase 170H, C-Reactive Protein, Quantitative 14.0H, Pro-B-Type Natriuretic Peptide 24279S, Total Protein 5.0L, Albumin 1.6L, Globulin 3.4, Albumin/Globulin Ratio 0.5L 02/05/17 08:45: Arterial Blood pH 7.500H, Arterial Blood Partial Pressure CO2 41.4, Arterial Blood Partial Pressure O2 65.2L, Arterial Blood HCO3 31.8H, Arterial Blood Oxygen Saturation 92.4, Arterial Blood Base Excess 8.0, Bon Test Positive Height (Feet): 5 Height (Inches): 6.00 Weight (Pounds): 280 General Appearance: no apparent distress, lethargic Oj Medel M.D. Feb 05, 2017 22:30
[2017-02-06] VITALS (25 sets, daily range): BP systolic 85–138; BP diastolic 32–71
[2017-02-06] MEDS: NovoLOG Insulin Flexpen SUBQ SCH ×6 (00:03→21:14)
[2017-02-06] MEDS ORDERED: NovoLOG Insulin Flexpen SUBQ ONE (00:30)
[2017-02-06] MEDS: Morphine Sulfate 2mg/ml Inj IVP PRN ×2 (01:31→20:08)
[2017-02-06 05:41] LABS: HEMATOCRIT 25.2 % (37.0-47.0); HEMOGLOBIN 7.9 G/DL (12.0-16.0); MEAN CORPUSCULAR VOLUME 101 FL (80-99); PLATELET COUNT 80 K/UL (150-450); RED BLOOD COUNT 2.49 M/UL (4.20-5.40); RED CELL DISTRIBUTION WIDTH 17.7 % (11.6-14.8); WHITE BLOOD COUNT 12.1 K/UL (4.8-10.8)
[2017-02-06] MEDS: Midodrine 10mg tab NG SCH ×3 (06:00→22:26)
[2017-02-06 06:14] LABS: ALANINE AMINOTRANSFERASE 12 U/L (12-78); ALBUMIN 1.7 G/DL (3.4-5.0); ALBUMIN/GLOBULIN RATIO 0.5 (1.0-2.7); ALKALINE PHOSPHATASE 176 U/L (46-116); ANION GAP 9 mmol/L (5-15); ASPARTATE AMINO TRANSFERASE 35 U/L (15-37); BILIRUBIN,TOTAL 1.9 MG/DL (0.2-1.0); BLOOD UREA NITROGEN 44 mg/dL (7-18); CALCIUM 9.4 MG/DL (8.5-10.1); CARBON DIOXIDE 31 MMOL/L (21-32); CHLORIDE 114 MMOL/L (98-107); CREATININE 4.7 MG/DL (0.55-1.30); PHOSPHORUS 2.1 MG/DL (2.5-4.9); POTASSIUM 4.3 MMOL/L (3.5-5.1); SODIUM 154 MMOL/L (136-145)
[2017-02-06 06:27] LABS: BILIRUBIN,DIRECT 1.1 MG/DL (0.0-0.3)
[2017-02-06] MEDS: Vancomycin oral 125mg/2.5ml NG SCH ×2 (09:09→17:13)
[2017-02-06] MEDS: Nystatin Powder 100,000 units/gm 15gm TOPIC SCH ×3 (09:10→17:13)
[2017-02-06] MEDS: Colistin for inhalation INH SCH ×2 (09:56→21:40)
--- NOTE | 2017-02-06 10:30 | Pulmonolgy Critical Care Note ---
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 Respiratory: monitor respiratory rate, adjust FIO2, CXR Cardiac: continue to monitor HR/BP Renal: F/U I&O, check electrolytes Infectious Disease: check cultures, continue antibiotics Endocrine: monitor blood sugar, check HgA1C, continue sliding scale insulin, other - change accucheck to q4 Hematologic: monitor H/H, transfuse if hgb<8.5 Neurologic: PRN Ativan, PRN Morphine, keep patient comfortable Notes Reviewed: renal Discussed with: nurses, consultants, correctional case records supervisorcorrectional manager - Objective Last 24 Hour Vital Signs Date Time Temp Pulse Resp B/P (MAP) Pulse Ox O2 Delivery O2 Flow Rate FiO2 02/06/17 10:10 79 20 97 60 02/06/17 10:00 73 20 85/43 100 Mechanical Ventilator 60 02/06/17 09:57 77 20 100 Mechanical Ventilator 60 02/06/17 09:00 78 20 92/45 100 Mechanical Ventilator 60 02/06/17 08:47 91 20 60 02/06/17 08:35 Mechanical Ventilator 15.0 60 02/06/17 08:00 97.1 82 21 107/41 100 Mechanical Ventilator 60 02/06/17 08:00 81 02/06/17 08:00 60 02/06/17 07:00 101 22 107/50 96 Mechanical Ventilator 60 02/06/17 06:57 94 24 60 02/06/17 06:00 81 22 96/68 100 Mechanical Ventilator 60 02/06/17 05:29 78 20 60 02/06/17 05:00 85 22 98/45 100 Mechanical Ventilator 60 02/06/17 04:50 Mechanical Ventilator 15.0 60 02/06/17 04:00 80 02/06/17 04:00 60 02/06/17 04:00 98.3 64 20 92/41 100 Mechanical Ventilator 60 02/06/17 03:19 71 20 60 02/06/17 03:00 75 22 95/32 100 Mechanical Ventilator 60 02/06/17 02:00 84 22 123/43 100 Mechanical Ventilator 60 02/06/17 01:23 110 27 60 02/06/17 01:00 105 23 123/43 100 Mechanical Ventilator 60 02/06/17 00:00 98.2 68 20 138/47 100 Mechanical Ventilator 60 02/06/17 00:00 70 02/05/17 23:24 70 20 60 02/05/17 23:00 72 20 138/58 100 Mechanical Ventilator 60 02/05/17 22:00 70 20 127/46 100 Mechanical Ventilator 60 02/05/17 21:48 74 20 99 Mechanical Ventilator 60 02/05/17 21:33 65 20 100 Mechanical Ventilator 60 02/05/17 21:30 65 20 60 02/05/17 21:00 72 20 120/49 100 Mechanical Ventilator 60 02/05/17 20:00 60 02/05/17 20:00 98.8 68 20 131/52 100 Mechanical Ventilator 60 02/05/17 20:00 65 02/05/17 19:00 66 20 126/46 100 Mechanical Ventilator 60 02/05/17 18:55 66 20 60 02/05/17 18:00 69 20 121/53 98 Mechanical Ventilator 60 02/05/17 17:09 62 18 60 02/05/17 17:00 70 20 120/45 100 Mechanical Ventilator 60 02/05/17 16:00 60 02/05/17 16:00 62 20 124/45 100 Mechanical Ventilator 60 02/05/17 16:00 66 02/05/17 15:00 70 20 60 02/05/17 15:00 98.4 66 20 122/40 100 Mechanical Ventilator 60 02/05/17 14:00 90 20 122/36 100 Mechanical Ventilator 60 02/05/17 13:00 90 20 128/52 98 Mechanical Ventilator 60 02/05/17 12:50 88 20 60 02/05/17 12:00 60 02/05/17 12:00 100.0 76 20 106/75 97 60 02/05/17 12:00 69 02/05/17 11:15 106/75 02/05/17 11:07 73 20 100 Mechanical Ventilator 60 02/05/17 11:00 67 20 106/75 96 Mechanical Ventilator 60 02/05/17 10:56 68 20 97 Mechanical Ventilator 60 02/05/17 10:55 68 20 60 Status: awake Condition: critical HEENT: atraumatic Neck: full ROM Lungs: rales, rhonchi Heart: HR/BP stable Abdomen: soft, non-tender Extremities: no C/C/E, edema Decubiti: location Accucheck: 346 Critical Care - Subjective ROS Limited/Unobtainable: Yes ICU Day: 21 Interval Events: dialyzed today Condition: critical EKG Rhythm: Sinus Rhythm FI02: 60 Vent Support Breath Rate: 20 Vent Support Mode: AC Vent Tidal Volume: 650 Sputum Amount: Small PEEP: 0.0 PIP: 47 Tube Feeding Amount: 35 I&O: Intake and Output 02/06/17 02/07/17 19:00 07:00 Intake Total 185 ml Output Total 3000 ml Balance -2815 ml Free Water 30 ml Tube Feeding 105 ml Other 50 ml Output Urine Total 0 ml Hemodialysis UF 3000 ml CXR: no change ET-Tube: 7.0 ET Position: 20 Labs: Laboratory Tests Test 02/06/17 04:45 02/06/17 08:45 White Blood Count 12.1 K/UL (4.8-10.8) H Red Blood Count 2.49 M/UL (4.20-5.40) L Hemoglobin 7.9 G/DL (12.0-16.0) L Hematocrit 25.2 % (37.0-47.0) L Mean Corpuscular Volume 101 FL (80-99) H Mean Corpuscular Hemoglobin 31.6 PG (27.0-31.0) H Mean Corpuscular Hemoglobin Concent 31.2 G/DL (32.0-36.0) L Red Cell Distribution Width 17.7 % (11.6-14.8) H Platelet Count 80 K/UL (150-450) L Mean Platelet Volume 9.2 FL (6.5-10.1) Neutrophils (%) (Auto) % (45.0-75.0) Lymphocytes (%) (Auto) % (20.0-45.0) Monocytes (%) (Auto) % (1.0-10.0) Eosinophils (%) (Auto) % (0.0-3.0) Basophils (%) (Auto) % (0.0-2.0) Differential Total Cells Counted 100 Neutrophils % (Manual) 88 % (45-75) H Lymphocytes % (Manual) 9 % (20-45) L Monocytes % (Manual) 0 % (1-10) L Eosinophils % (Manual) 3 % (0-3) Basophils % (Manual) 0 % (0-2) Band Neutrophils 0 % (0-8) Platelet Estimate Decreased L Platelet Morphology Normal Hypochromasia 1+ Anisocytosis 1+ Macrocytosis 1+ Sodium Level 154 MMOL/L (136-145) H Potassium Level 4.3 MMOL/L (3.5-5.1) Chloride Level 114 MMOL/L (98-107) H Carbon Dioxide Level 31 MMOL/L (21-32) Anion Gap 9 mmol/L (5-15) Blood Urea Nitrogen 44 mg/dL (7-18) H Creatinine 4.7 MG/DL (0.55-1.30) H Estimat Glomerular Filtration Rate mL/min (>60) Glucose Level 395 MG/DL (74-106) H Uric Acid 4.1 MG/DL (2.6-7.2) Calcium Level 9.4 MG/DL (8.5-10.1) Phosphorus Level 2.1 MG/DL (2.5-4.9) L Magnesium Level 2.1 MG/DL (1.8-2.4) Total Bilirubin 1.9 MG/DL (0.2-1.0) H Direct Bilirubin 1.1 MG/DL (0.0-0.3) H Aspartate Amino Transf (AST/SGOT) 35 U/L (15-37) Alanine Aminotransferase (ALT/SGPT) 12 U/L (12-78) Alkaline Phosphatase 176 U/L (46-116) H C-Reactive Protein, Quantitative 14.9 mg/dL (0.00-0.90) H Pro-B-Type Natriuretic Peptide 99361 pg/mL (0-125) H Total Protein 5.3 G/DL (6.4-8.2) L Albumin 1.7 G/DL (3.4-5.0) L Globulin 3.6 g/dL Albumin/Globulin Ratio 0.5 (1.0-2.7) L Arterial Blood pH 7.468 (7.350-7.450) Arterial Blood Partial Pressure CO2 44.9 mmHg (35.0-45.0) Arterial Blood Partial Pressure O2 68.9 mmHg (75.0-100.0) L Arterial Blood HCO3 31.8 mmol/L (22.0-26.0) H Arterial Blood Oxygen Saturation 92.7 % (92.0-98.0) Arterial Blood Base Excess 7.3 Bon Test Positive DIONI TRIANA Feb 06, 2017 10:30
[2017-02-06] MEDS: Phospha 250 Neutral tab ORAL SCH ×2 (10:43→17:13)
[2017-02-06] MEDS: DOPamine 400mg/250ml 250 ML IV SCH (11:14)
--- NOTE | 2017-02-06 14:30 | Infectious Diseases Prog Note ---
Assessment/Plan Assessment/Plan Assessment: Encephalopathy- possibly multifactorial- hepatic encephalopathy, infection- worsening now due to hypercapnea (transferred to ICU 01/21), on bipap> intubated Acute respiratory failure 2ry to hypercapnea, PNA; now ARDS - self-extubated, re -intubated 02/04 -CXR 02/04: Pulmonary parenchymal disease, likely ARDS, overall stable Sepsis 2ry to PNA and Bacteremia HCAP 2ry to ESBL. 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 -repeat sp cx 01/26: +4 MDR A.baumani (I Ceftazidime, R to carbapenem and aminoglycosides, Minocycline; S to Colistin, Polymyxin B) suspect Colonizer ( improving not on tx) -Sp cx 01/22: +2 ESBK E.coli, +2 C. albicans (colonizer) MRSA bacteremia- with repeat Bcx growing CoNS (?contaminant vs real). BCx cleared 01/26 SP Rx -01/16 04/23 BCx MRSA (S. Vanco JOSE A 1), repeat Bcx 01/19 Neg, 01/21 04/23 CoNS ( contaminant), 01/24 Bcx 04/23 CoNs, Bcx 01/26 Neg x4, 01/28 BCx neg -TTE 01/19(limited study): No aortic regurgitation.Trace mitral regurgitation.Mitral diastolic velocities suggest reduced left ventricular relaxation c/w diastolic dysfunction grade. Moderate tricuspid regurgitation. Leukocytosis, previously worsened up to 24, now recurrent, mild, worsening, new fever r/o new KRISHAN ?aspiration event 02/04 -01/26. pyuria improving (WBC 10-15); ucx C. albicans (colonizer) -01/22 u/a WBC 30-40, ucx yeast (colonizer) -Sp cx ESBL E.coli, diaz (colonizer) Elevated LFTs, improving -[facility] hep panel neg Probable MDR UTI, pyuria, s/p Rx -u/a 01/16 WBC too many to count,nit neg ,leuk est +3; UCx x3 grew >100K MDR A.baumani complex (S. tigecycline/Minocycline, Polymixin B/Colistin), >100K PsA (S. Cefepime, Zosyn; R Cipro/Levo); a prior isolated on a ucx from the same day isolated MDR PsA (I. Cefepime, R ceftzadime, Meropenem; S. Tygecicine, amikacin) -renal u/s: Nondiagnostic exam Metabolic acidosis, 2ry to renal failure- now improved after initiation of HD 01/28 RAMYA on CKD, started on HD 01/28 Cirrhosis Anemia & thrombocytopenia DM type 2 Morbid obesity DNR PLAN: re-started IV vancomycin d# 2 ( given worsening leukocytosis, new fever ) -Continue Ertapenem for ESBL E. coli in sputum (abx d# 16 ) -continue prophylactic PO Vancomycin #14 -Continue Inhaled colistin 75mg bid # / for MDR ABC in sputum -02/03 s/p IV Vancomycin #15/14 -s/p 1 dose Amikacin 10/11 -s/p 7d Cefepime 10/ -s/p 3d Amikacin 10/ -s/p 7d Minocycline 10/7 -s/p 3d IV vanco 01/18 -monitor closely; if HD decompensation add IV Colistin -requested ceftazidime-avibactam (not available), tigecycline and minocycline susceptibilities 01/29 monitor CBC, temperatures monitor BMP monitor CXR vent support, trach eventually Subjective Constitutional: Denies: no symptoms, fever, chills, fatigue, anorexia, drenching sweats, other Allergies: Coded Allergies: PENICILLINS (Unverified Allergy, Unknown, 03/22/15) Objective Vital Signs Last 24 Hour Vital Signs Date Time Temp Pulse Resp B/P (MAP) Pulse Ox O2 Delivery O2 Flow Rate FiO2 02/06/17 13:00 82 20 102/71 100 Mechanical Ventilator 60 02/06/17 12:57 82 20 60 02/06/17 12:00 98.9 78 20 91/42 100 Mechanical Ventilator 60 02/06/17 12:00 60 02/06/17 12:00 74 02/06/17 11:13 74 20 60 02/06/17 11:00 75 20 88/65 100 Mechanical Ventilator 60 02/06/17 10:10 79 20 97 60 02/06/17 10:00 73 20 85/43 100 Mechanical Ventilator 60 02/06/17 09:57 77 20 100 Mechanical Ventilator 60 02/06/17 09:00 78 20 92/45 100 Mechanical Ventilator 60 02/06/17 08:47 91 20 60 02/06/17 08:35 Mechanical Ventilator 15.0 60 02/06/17 08:00 97.1 82 21 107/41 100 Mechanical Ventilator 60 02/06/17 08:00 81 02/06/17 08:00 60 02/06/17 07:00 101 22 107/50 96 Mechanical Ventilator 60 02/06/17 06:57 94 24 60 02/06/17 06:00 81 22 96/68 100 Mechanical Ventilator 60 02/06/17 05:29 78 20 60 02/06/17 05:00 85 22 98/45 100 Mechanical Ventilator 60 02/06/17 04:50 Mechanical Ventilator 15.0 60 02/06/17 04:00 80 02/06/17 04:00 60 02/06/17 04:00 98.3 64 20 92/41 100 Mechanical Ventilator 60 02/06/17 03:19 71 20 60 02/06/17 03:00 75 22 95/32 100 Mechanical Ventilator 60 02/06/17 02:00 84 22 123/43 100 Mechanical Ventilator 60 02/06/17 01:23 110 27 60 02/06/17 01:00 105 23 123/43 100 Mechanical Ventilator 60 02/06/17 00:00 98.2 68 20 138/47 100 Mechanical Ventilator 60 02/06/17 00:00 70 02/05/17 23:24 70 20 60 02/05/17 23:00 72 20 138/58 100 Mechanical Ventilator 60 02/05/17 22:00 70 20 127/46 100 Mechanical Ventilator 60 02/05/17 21:48 74 20 99 Mechanical Ventilator 60 02/05/17 21:33 65 20 100 Mechanical Ventilator 60 02/05/17 21:30 65 20 60 02/05/17 21:00 72 20 120/49 100 Mechanical Ventilator 60 02/05/17 20:00 60 02/05/17 20:00 98.8 68 20 131/52 100 Mechanical Ventilator 60 02/05/17 20:00 65 02/05/17 19:00 66 20 126/46 100 Mechanical Ventilator 60 02/05/17 18:55 66 20 60 02/05/17 18:00 69 20 121/53 98 Mechanical Ventilator 60 02/05/17 17:09 62 18 60 02/05/17 17:00 70 20 120/45 100 Mechanical Ventilator 60 02/05/17 16:00 60 02/05/17 16:00 62 20 124/45 100 Mechanical Ventilator 60 02/05/17 16:00 66 02/05/17 15:00 70 20 60 02/05/17 15:00 98.4 66 20 122/40 100 Mechanical Ventilator 60 Height (Feet): 5 Height (Inches): 6.00 Weight (Pounds): 286 HEENT: anicteric Respiratory/Chest: no respiratory distress Cardiovascular: regular rhythm Abdomen: no organomegaly Neurologic/Psychiatric: no motor/sensory deficits Laboratory Tests Test 02/06/17 04:45 02/06/17 08:45 White Blood Count 12.1 K/UL (4.8-10.8) H Red Blood Count 2.49 M/UL (4.20-5.40) L Hemoglobin 7.9 G/DL (12.0-16.0) L Hematocrit 25.2 % (37.0-47.0) L Mean Corpuscular Volume 101 FL (80-99) H Mean Corpuscular Hemoglobin 31.6 PG (27.0-31.0) H Mean Corpuscular Hemoglobin Concent 31.2 G/DL (32.0-36.0) L Red Cell Distribution Width 17.7 % (11.6-14.8) H Platelet Count 80 K/UL (150-450) L Mean Platelet Volume 9.2 FL (6.5-10.1) Neutrophils (%) (Auto) % (45.0-75.0) Lymphocytes (%) (Auto) % (20.0-45.0) Monocytes (%) (Auto) % (1.0-10.0) Eosinophils (%) (Auto) % (0.0-3.0) Basophils (%) (Auto) % (0.0-2.0) Differential Total Cells Counted 100 Neutrophils % (Manual) 88 % (45-75) H Lymphocytes % (Manual) 9 % (20-45) L Monocytes % (Manual) 0 % (1-10) L Eosinophils % (Manual) 3 % (0-3) Basophils % (Manual) 0 % (0-2) Band Neutrophils 0 % (0-8) Platelet Estimate Decreased L Platelet Morphology Normal Hypochromasia 1+ Anisocytosis 1+ Macrocytosis 1+ Sodium Level 154 MMOL/L (136-145) H Potassium Level 4.3 MMOL/L (3.5-5.1) Chloride Level 114 MMOL/L (98-107) H Carbon Dioxide Level 31 MMOL/L (21-32) Anion Gap 9 mmol/L (5-15) Blood Urea Nitrogen 44 mg/dL (7-18) H Creatinine 4.7 MG/DL (0.55-1.30) H Estimat Glomerular Filtration Rate mL/min (>60) Glucose Level 395 MG/DL (74-106) H Uric Acid 4.1 MG/DL (2.6-7.2) Calcium Level 9.4 MG/DL (8.5-10.1) Phosphorus Level 2.1 MG/DL (2.5-4.9) L Magnesium Level 2.1 MG/DL (1.8-2.4) Total Bilirubin 1.9 MG/DL (0.2-1.0) H Direct Bilirubin 1.1 MG/DL (0.0-0.3) H Aspartate Amino Transf (AST/SGOT) 35 U/L (15-37) Alanine Aminotransferase (ALT/SGPT) 12 U/L (12-78) Alkaline Phosphatase 176 U/L (46-116) H C-Reactive Protein, Quantitative 14.9 mg/dL (0.00-0.90) H Pro-B-Type Natriuretic Peptide 59477 pg/mL (0-125) H Total Protein 5.3 G/DL (6.4-8.2) L Albumin 1.7 G/DL (3.4-5.0) L Globulin 3.6 g/dL Albumin/Globulin Ratio 0.5 (1.0-2.7) L Arterial Blood pH 7.468 (7.350-7.450) Arterial Blood Partial Pressure CO2 44.9 mmHg (35.0-45.0) Arterial Blood Partial Pressure O2 68.9 mmHg (75.0-100.0) L Arterial Blood HCO3 31.8 mmol/L (22.0-26.0) H Arterial Blood Oxygen Saturation 92.7 % (92.0-98.0) Arterial Blood Base Excess 7.3 Bon Test Positive Current Medications Medications (Trade) Dose Ordered Sig/Pavel Route PRN Reason Start Time Stop Time Status Last Admin Dose Admin Acetaminophen (Tylenol) 650 mg Q4H PRN ORAL T>100.5 10/4/17 14:30 02/15/17 14:29 02/05/17 07:41 Chlorhexidine Gluconate (Dianne-Hex 2%) 1 applic DAILY@1999 TOPIC 01/25/17 20:00 02/24/17 19:59 02/05/17 20:33 Clotrimazole (Lotrimin) 1 applic EVERY 12 HOURS TOPIC 01/21/17 21:00 02/18/17 13:59 02/06/17 09:09 Colistimethate Sodium (Colistin *inhalation use only*) 75 mg Q12HRT INH 01/29/17 22:00 02/07/17 23:59 02/06/17 09:56 Dextrose (Dextrose 50%) STAT PRN IV Hypoglycemia 02/06/17 10:45 03/08/17 10:44 Dopamine HCl/ Dextrose 250 ml @ 0 mls/hr Q24H IV 01/25/17 11:15 02/24/17 11:14 01/30/17 10:30 Ertapenem 0.5 gm/ Sodium Chloride 55 ml @ 110 mls/hr Q24H IVPB 02/02/17 21:00 02/11/17 20:59 02/05/17 21:16 Insulin Aspart (NovoLOG) EVERY 4 HOURS SUBQ 02/06/17 12:00 03/08/17 11:59 02/06/17 12:29 Metoclopramide HCl (Reglan) 5 mg Q8H PRN IVP Nausea & Vomiting 01/29/17 11:30 02/28/17 11:29 01/31/17 11:46 Midodrine (Pro-Amatine) 10 mg Q8HR NG 02/03/17 14:00 03/05/17 13:59 02/05/17 22:04 Morphine Sulfate (Morphine Sulfate) 2 mg Q4H PRN IVP PAIN 4-10 02/05/17 20:30 02/12/17 20:29 02/06/17 01:31 Nitroglycerin (Ntg) 0.4 mg Q5MIN X 3 DOSES PRN SL Prn Chest Pain 01/21/17 14:30 02/15/17 14:29 Nystatin (Nystop Powder) 1 applic THREE TIMES A DAY TOPIC 01/22/17 13:00 02/21/17 12:59 02/06/17 12:29 Phosphorus (Phospha 250 Neutral) 500 mg BID ORAL 02/06/17 11:00 02/06/17 18:01 02/06/17 10:43 Ranitidine HCl (Zantac) 150 mg DAILY NG 02/03/17 18:00 03/05/17 17:59 02/06/17 09:09 Rifaximin (Xifaxan) 550 mg EVERY 12 HOURS ORAL 01/29/17 12:00 03/07/17 11:59 02/06/17 09:09 Vancomycin HCl (Vanco rx to dose) 1 ea DAILY PRN MISC Per rx protocol 02/05/17 19:15 03/07/17 19:14 Vancomycin HCl (Vancomycin) 125 mg BID NG 02/02/17 16:00 02/09/17 15:59 02/06/17 09:09 LYLA ROJAS M.D. Feb 06, 2017 14:30
--- NOTE | 2017-02-06 14:45 | General Progress Note ---
Assessment/Plan Status: stable Status Narrative dialysed today Assessment/Plan Acute on chronic renal failure- multifactorial CHF DM HTN Sepsis Now: Acute respiratory failure- Intubated - Altered level of consciousness - ESBL (extended spectrum beta-lactamase) producing bacteria infection - Cardiomegaly - DM (diabetes mellitus) - HTN (hypertension) - UTI (urinary tract infection) - Anemia - High Cholestrol - COPD - YELENA - Fatty liver Plan: due trach 02/10 D5w 500 cc Phos NGT On midodrine dialysis 02/06 done Transfuse as needed, one unit 02/04 Optimize cardiac and pulmonary status 2D echo results noted avoid nephrotoxics monitor renal parameters Urine studies per orders poor prognosis Subjective ROS Limited/Unobtainable: Yes Allergies: Coded Allergies: PENICILLINS (Unverified Allergy, Unknown, 03/22/15) Objective Last 24 Hour Vital Signs Date Time Temp Pulse Resp B/P (MAP) Pulse Ox O2 Delivery O2 Flow Rate FiO2 02/06/17 14:00 87 21 111/36 98 Mechanical Ventilator 60 02/06/17 13:00 82 20 102/71 100 Mechanical Ventilator 60 02/06/17 12:57 82 20 60 02/06/17 12:00 98.9 78 20 91/42 100 Mechanical Ventilator 60 02/06/17 12:00 60 02/06/17 12:00 74 02/06/17 11:13 74 20 60 02/06/17 11:00 75 20 88/65 100 Mechanical Ventilator 60 02/06/17 10:10 79 20 97 60 02/06/17 10:00 73 20 85/43 100 Mechanical Ventilator 60 02/06/17 09:57 77 20 100 Mechanical Ventilator 60 02/06/17 09:00 78 20 92/45 100 Mechanical Ventilator 60 02/06/17 08:47 91 20 60 02/06/17 08:35 Mechanical Ventilator 15.0 60 02/06/17 08:00 97.1 82 21 107/41 100 Mechanical Ventilator 60 02/06/17 08:00 81 02/06/17 08:00 60 02/06/17 07:00 101 22 107/50 96 Mechanical Ventilator 60 02/06/17 06:57 94 24 60 02/06/17 06:00 81 22 96/68 100 Mechanical Ventilator 60 02/06/17 05:29 78 20 60 02/06/17 05:00 85 22 98/45 100 Mechanical Ventilator 60 02/06/17 04:50 Mechanical Ventilator 15.0 60 02/06/17 04:00 80 02/06/17 04:00 60 02/06/17 04:00 98.3 64 20 92/41 100 Mechanical Ventilator 60 02/06/17 03:19 71 20 60 02/06/17 03:00 75 22 95/32 100 Mechanical Ventilator 60 02/06/17 02:00 84 22 123/43 100 Mechanical Ventilator 60 02/06/17 01:23 110 27 60 02/06/17 01:00 105 23 123/43 100 Mechanical Ventilator 60 02/06/17 00:00 98.2 68 20 138/47 100 Mechanical Ventilator 60 02/06/17 00:00 70 02/05/17 23:24 70 20 60 02/05/17 23:00 72 20 138/58 100 Mechanical Ventilator 60 02/05/17 22:00 70 20 127/46 100 Mechanical Ventilator 60 02/05/17 21:48 74 20 99 Mechanical Ventilator 60 02/05/17 21:33 65 20 100 Mechanical Ventilator 60 02/05/17 21:30 65 20 60 02/05/17 21:00 72 20 120/49 100 Mechanical Ventilator 60 02/05/17 20:00 60 02/05/17 20:00 98.8 68 20 131/52 100 Mechanical Ventilator 60 02/05/17 20:00 65 02/05/17 19:00 66 20 126/46 100 Mechanical Ventilator 60 02/05/17 18:55 66 20 60 02/05/17 18:00 69 20 121/53 98 Mechanical Ventilator 60 02/05/17 17:09 62 18 60 02/05/17 17:00 70 20 120/45 100 Mechanical Ventilator 60 02/05/17 16:00 60 02/05/17 16:00 62 20 124/45 100 Mechanical Ventilator 60 02/05/17 16:00 66 02/05/17 15:00 70 20 60 02/05/17 15:00 98.4 66 20 122/40 100 Mechanical Ventilator 60 Intake and Output 02/06/17 02/07/17 19:00 07:00 Intake Total 355 ml Output Total 3000 ml Balance -2645 ml Free Water 30 ml Tube Feeding 245 ml Other 80 ml Output Urine Total 0 ml Hemodialysis UF 3000 ml Laboratory Tests 02/06/17 04:45: White Blood Count 12.1H, Red Blood Count 2.49L, Hemoglobin 7.9L, Hematocrit 25.2L, Mean Corpuscular Volume 101H, Mean Corpuscular Hemoglobin 31.6H, Mean Corpuscular Hemoglobin Concent 31.2L, Red Cell Distribution Width 17.7H, Platelet Count 80L, Mean Platelet Volume 9.2, Neutrophils (%) (Auto) , Lymphocytes (%) (Auto) , Monocytes (%) (Auto) , Eosinophils (%) (Auto) , Basophils (%) (Auto) , Differential Total Cells Counted 100, Neutrophils % ( Manual) 88H, Lymphocytes % (Manual) 9L, Monocytes % (Manual) 0L, Eosinophils % ( Manual) 3, Basophils % (Manual) 0, Band Neutrophils 0, Platelet Estimate DecreasedL, Platelet Morphology Normal, Hypochromasia 1+, Anisocytosis 1+, Macrocytosis 1+, Sodium Level 154H, Potassium Level 4.3, Chloride Level 114H, Carbon Dioxide Level 31, Anion Gap 9, Blood Urea Nitrogen 44H, Creatinine 4.7H, Estimat Glomerular Filtration Rate , Glucose Level 395H, Uric Acid 4.1, Calcium Level 9.4, Phosphorus Level 2.1L, Magnesium Level 2.1, Total Bilirubin 1.9H, Direct Bilirubin 1.1H, Aspartate Amino Transf (AST/SGOT) 35, Alanine Aminotransferase (ALT/SGPT) 12, Alkaline Phosphatase 176H, C-Reactive Protein, Quantitative 14.9H, Pro-B-Type Natriuretic Peptide 55488I, Total Protein 5.3L, Albumin 1.7L, Globulin 3.6, Albumin/Globulin Ratio 0.5L 02/06/17 08:45: Arterial Blood pH 7.468H, Arterial Blood Partial Pressure CO2 44.9, Arterial Blood Partial Pressure O2 68.9L, Arterial Blood HCO3 31.8H, Arterial Blood Oxygen Saturation 92.7, Arterial Blood Base Excess 7.3, Bon Test Positive Height (Feet): 5 Height (Inches): 6.00 Weight (Pounds): 286 General Appearance: no apparent distress EENT: other - intubated Respiratory/Chest: decreased breath sounds Abdomen: soft Edema: 1+ Arm (L), 1+ Arm (R), 1+ Leg (L), 1+ Leg (R), 1+ Pedal (L), 1+ Pedal ( R), 1+ Generalized Objective no other change ANDERS MOLINA Feb 06, 2017 14:45
--- NOTE | 2017-02-06 14:49 | General Progress Note ---
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 - hypernatremia - maybe worse due to diarrhea Recommendations - dc lactulose - continue Xifaxan - Continue TF - follow labs - HD/lytes per Renal - increase free water - await trach - will need PEG to follow Subjective Allergies: Coded Allergies: PENICILLINS (Unverified Allergy, Unknown, 03/22/15) Subjective above noted d/w RN tolerating TF (++) diarrhea with only BID lactulose Objective Last 24 Hour Vital Signs Date Time Temp Pulse Resp B/P (MAP) Pulse Ox O2 Delivery O2 Flow Rate FiO2 02/06/17 14:00 87 21 111/36 98 Mechanical Ventilator 60 02/06/17 13:00 82 20 102/71 100 Mechanical Ventilator 60 02/06/17 12:57 82 20 60 02/06/17 12:00 98.9 78 20 91/42 100 Mechanical Ventilator 60 02/06/17 12:00 60 02/06/17 12:00 74 02/06/17 11:13 74 20 60 02/06/17 11:00 75 20 88/65 100 Mechanical Ventilator 60 02/06/17 10:10 79 20 97 60 02/06/17 10:00 73 20 85/43 100 Mechanical Ventilator 60 02/06/17 09:57 77 20 100 Mechanical Ventilator 60 02/06/17 09:00 78 20 92/45 100 Mechanical Ventilator 60 02/06/17 08:47 91 20 60 02/06/17 08:35 Mechanical Ventilator 15.0 60 02/06/17 08:00 97.1 82 21 107/41 100 Mechanical Ventilator 60 02/06/17 08:00 81 02/06/17 08:00 60 02/06/17 07:00 101 22 107/50 96 Mechanical Ventilator 60 02/06/17 06:57 94 24 60 02/06/17 06:00 81 22 96/68 100 Mechanical Ventilator 60 02/06/17 05:29 78 20 60 02/06/17 05:00 85 22 98/45 100 Mechanical Ventilator 60 02/06/17 04:50 Mechanical Ventilator 15.0 60 02/06/17 04:00 80 02/06/17 04:00 60 02/06/17 04:00 98.3 64 20 92/41 100 Mechanical Ventilator 60 02/06/17 03:19 71 20 60 02/06/17 03:00 75 22 95/32 100 Mechanical Ventilator 60 02/06/17 02:00 84 22 123/43 100 Mechanical Ventilator 60 02/06/17 01:23 110 27 60 02/06/17 01:00 105 23 123/43 100 Mechanical Ventilator 60 02/06/17 00:00 98.2 68 20 138/47 100 Mechanical Ventilator 60 02/06/17 00:00 70 02/05/17 23:24 70 20 60 02/05/17 23:00 72 20 138/58 100 Mechanical Ventilator 60 02/05/17 22:00 70 20 127/46 100 Mechanical Ventilator 60 02/05/17 21:48 74 20 99 Mechanical Ventilator 60 02/05/17 21:33 65 20 100 Mechanical Ventilator 60 02/05/17 21:30 65 20 60 02/05/17 21:00 72 20 120/49 100 Mechanical Ventilator 60 02/05/17 20:00 60 02/05/17 20:00 98.8 68 20 131/52 100 Mechanical Ventilator 60 02/05/17 20:00 65 02/05/17 19:00 66 20 126/46 100 Mechanical Ventilator 60 02/05/17 18:55 66 20 60 02/05/17 18:00 69 20 121/53 98 Mechanical Ventilator 60 02/05/17 17:09 62 18 60 02/05/17 17:00 70 20 120/45 100 Mechanical Ventilator 60 02/05/17 16:00 60 02/05/17 16:00 62 20 124/45 100 Mechanical Ventilator 60 02/05/17 16:00 66 02/05/17 15:00 70 20 60 02/05/17 15:00 98.4 66 20 122/40 100 Mechanical Ventilator 60 Intake and Output 02/06/17 02/07/17 19:00 07:00 Intake Total 355 ml Output Total 3000 ml Balance -2645 ml Free Water 30 ml Tube Feeding 245 ml Other 80 ml Output Urine Total 0 ml Hemodialysis UF 3000 ml Laboratory Tests 02/06/17 04:45: White Blood Count 12.1H, Red Blood Count 2.49L, Hemoglobin 7.9L, Hematocrit 25.2L, Mean Corpuscular Volume 101H, Mean Corpuscular Hemoglobin 31.6H, Mean Corpuscular Hemoglobin Concent 31.2L, Red Cell Distribution Width 17.7H, Platelet Count 80L, Mean Platelet Volume 9.2, Neutrophils (%) (Auto) , Lymphocytes (%) (Auto) , Monocytes (%) (Auto) , Eosinophils (%) (Auto) , Basophils (%) (Auto) , Differential Total Cells Counted 100, Neutrophils % ( Manual) 88H, Lymphocytes % (Manual) 9L, Monocytes % (Manual) 0L, Eosinophils % ( Manual) 3, Basophils % (Manual) 0, Band Neutrophils 0, Platelet Estimate DecreasedL, Platelet Morphology Normal, Hypochromasia 1+, Anisocytosis 1+, Macrocytosis 1+, Sodium Level 154H, Potassium Level 4.3, Chloride Level 114H, Carbon Dioxide Level 31, Anion Gap 9, Blood Urea Nitrogen 44H, Creatinine 4.7H, Estimat Glomerular Filtration Rate , Glucose Level 395H, Uric Acid 4.1, Calcium Level 9.4, Phosphorus Level 2.1L, Magnesium Level 2.1, Total Bilirubin 1.9H, Direct Bilirubin 1.1H, Aspartate Amino Transf (AST/SGOT) 35, Alanine Aminotransferase (ALT/SGPT) 12, Alkaline Phosphatase 176H, C-Reactive Protein, Quantitative 14.9H, Pro-B-Type Natriuretic Peptide 97389Z, Total Protein 5.3L, Albumin 1.7L, Globulin 3.6, Albumin/Globulin Ratio 0.5L 02/06/17 08:45: Arterial Blood pH 7.468H, Arterial Blood Partial Pressure CO2 44.9, Arterial Blood Partial Pressure O2 68.9L, Arterial Blood HCO3 31.8H, Arterial Blood Oxygen Saturation 92.7, Arterial Blood Base Excess 7.3, Bon Test Positive Height (Feet): 5 Height (Inches): 6.00 Weight (Pounds): 286 Objective Obese WW NCAT, (+) ETT and NGT supple CTA RRR soft ND NT (+) edema [place] RODRIGUEZNIKKIKIERSTEN Feb 06, 2017 14:49
--- NOTE | 2017-02-06 15:23 | Internal Med Progress Note ---
Subjective Physician Name Rl Tee Attending Physician Rl Tee MD Current Medications Medications (Trade) Dose Ordered Sig/Pavel Route PRN Reason Start Time Stop Time Status Last Admin Dose Admin Acetaminophen (Tylenol) 650 mg Q4H PRN ORAL T>100.5 01/21/17 14:30 02/15/17 14:29 02/05/17 07:41 Chlorhexidine Gluconate (Dianne-Hex 2%) 1 applic DAILY@2000 TOPIC 01/25/17 20:00 02/24/17 19:59 02/05/17 20:33 Clotrimazole (Lotrimin) 1 applic EVERY 12 HOURS TOPIC 01/21/17 21:00 02/18/17 13:59 02/06/17 09:09 Colistimethate Sodium (Colistin *inhalation use only*) 75 mg Q12HRT INH 01/29/17 22:00 02/07/17 23:59 02/06/17 09:56 Dextrose (Dextrose 50%) STAT PRN IV Hypoglycemia 02/06/17 10:45 03/08/17 10:44 Dopamine HCl/ Dextrose 250 ml @ 0 mls/hr Q24H IV 01/25/17 11:15 02/24/17 11:14 01/30/17 10:30 Ertapenem 0.5 gm/ Sodium Chloride 55 ml @ 110 mls/hr Q24H IVPB 02/02/17 21:00 02/11/17 20:59 02/05/17 21:16 Insulin Aspart (NovoLOG) EVERY 4 HOURS SUBQ 02/06/17 12:00 03/08/17 11:59 02/06/17 12:29 Metoclopramide HCl (Reglan) 5 mg Q8H PRN IVP Nausea & Vomiting 01/29/17 11:30 02/28/17 11:29 01/31/17 11:46 Midodrine (Pro-Amatine) 10 mg Q8HR NG 02/03/17 14:00 03/05/17 13:59 02/05/17 22:04 Morphine Sulfate (Morphine Sulfate) 2 mg Q4H PRN IVP PAIN 4-10 02/05/17 20:30 02/12/17 20:29 02/06/17 01:31 Nitroglycerin (Ntg) 0.4 mg Q5MIN X 3 DOSES PRN SL Prn Chest Pain 10/4/17 14:30 02/15/17 14:29 Nystatin (Nystop Powder) 1 applic THREE TIMES A DAY TOPIC 01/22/17 13:00 02/21/17 12:59 02/06/17 12:29 Phosphorus (Phospha 250 Neutral) 500 mg BID ORAL 02/06/17 11:00 02/06/17 18:01 02/06/17 10:43 Ranitidine HCl (Zantac) 150 mg DAILY NG 02/03/17 18:00 03/05/17 17:59 02/06/17 09:09 Rifaximin (Xifaxan) 550 mg EVERY 12 HOURS ORAL 01/29/17 12:00 03/07/17 11:59 02/06/17 09:09 Vancomycin HCl (Vanco rx to dose) 1 ea DAILY PRN MISC Per rx protocol 02/05/17 19:15 03/07/17 19:14 Vancomycin HCl (Vancomycin) 125 mg BID NG 02/02/17 16:00 02/09/17 15:59 02/06/17 09:09 Allergies: Coded Allergies: PENICILLINS (Unverified Allergy, Unknown, 03/22/15) Subjective in ICU , Intubated ,awake, responsive, open eye Objective Last Vital Signs Date Time Temp Pulse Resp B/P (MAP) Pulse Ox O2 Delivery O2 Flow Rate FiO2 02/06/17 14:00 87 21 111/36 98 Mechanical Ventilator 60 02/06/17 12:00 98.9 02/06/17 08:35 15.0 Laboratory Tests Test 02/06/17 04:45 02/06/17 08:45 White Blood Count 12.1 K/UL (4.8-10.8) H Red Blood Count 2.49 M/UL (4.20-5.40) L Hemoglobin 7.9 G/DL (12.0-16.0) L Hematocrit 25.2 % (37.0-47.0) L Mean Corpuscular Volume 101 FL (80-99) H Mean Corpuscular Hemoglobin 31.6 PG (27.0-31.0) H Mean Corpuscular Hemoglobin Concent 31.2 G/DL (32.0-36.0) L Red Cell Distribution Width 17.7 % (11.6-14.8) H Platelet Count 80 K/UL (150-450) L Mean Platelet Volume 9.2 FL (6.5-10.1) Neutrophils (%) (Auto) % (45.0-75.0) Lymphocytes (%) (Auto) % (20.0-45.0) Monocytes (%) (Auto) % (1.0-10.0) Eosinophils (%) (Auto) % (0.0-3.0) Basophils (%) (Auto) % (0.0-2.0) Differential Total Cells Counted 100 Neutrophils % (Manual) 88 % (45-75) H Lymphocytes % (Manual) 9 % (20-45) L Monocytes % (Manual) 0 % (1-10) L Eosinophils % (Manual) 3 % (0-3) Basophils % (Manual) 0 % (0-2) Band Neutrophils 0 % (0-8) Platelet Estimate Decreased L Platelet Morphology Normal Hypochromasia 1+ Anisocytosis 1+ Macrocytosis 1+ Sodium Level 154 MMOL/L (136-145) H Potassium Level 4.3 MMOL/L (3.5-5.1) Chloride Level 114 MMOL/L (98-107) H Carbon Dioxide Level 31 MMOL/L (21-32) Anion Gap 9 mmol/L (5-15) Blood Urea Nitrogen 44 mg/dL (7-18) H Creatinine 4.7 MG/DL (0.55-1.30) H Estimat Glomerular Filtration Rate mL/min (>60) Glucose Level 395 MG/DL (74-106) H Uric Acid 4.1 MG/DL (2.6-7.2) Calcium Level 9.4 MG/DL (8.5-10.1) Phosphorus Level 2.1 MG/DL (2.5-4.9) L Magnesium Level 2.1 MG/DL (1.8-2.4) Total Bilirubin 1.9 MG/DL (0.2-1.0) H Direct Bilirubin 1.1 MG/DL (0.0-0.3) H Aspartate Amino Transf (AST/SGOT) 35 U/L (15-37) Alanine Aminotransferase (ALT/SGPT) 12 U/L (12-78) Alkaline Phosphatase 176 U/L (46-116) H C-Reactive Protein, Quantitative 14.9 mg/dL (0.00-0.90) H Pro-B-Type Natriuretic Peptide 87819 pg/mL (0-125) H Total Protein 5.3 G/DL (6.4-8.2) L Albumin 1.7 G/DL (3.4-5.0) L Globulin 3.6 g/dL Albumin/Globulin Ratio 0.5 (1.0-2.7) L Arterial Blood pH 7.468 (7.350-7.450) Arterial Blood Partial Pressure CO2 44.9 mmHg (35.0-45.0) Arterial Blood Partial Pressure O2 68.9 mmHg (75.0-100.0) L Arterial Blood HCO3 31.8 mmol/L (22.0-26.0) H Arterial Blood Oxygen Saturation 92.7 % (92.0-98.0) Arterial Blood Base Excess 7.3 Bon Test Positive Intake and Output 02/06/17 02/07/17 19:00 07:00 Intake Total 355 ml Output Total 3000 ml Balance -2645 ml Free Water 30 ml Tube Feeding 245 ml Other 80 ml Output Urine Total 0 ml Hemodialysis UF 3000 ml Objective General: intubated, responsive, awake. HEENT: NCAT, sclera anicteric, PERRL, ET Tube, NG tube. Neck: Supple, Right dialysis cath. Lungs: mechanical breath sound,No Rales, no Wheeze. Heart: Regular rate and rhythm, normal S1/S2, no murmurs Abdomen: soft, nontender, nondistended. morbid obesity. + rectal tube. : Nunez Cath Extremities: No Cyanosis , clubbing +2 Leg edema. Neuro: awake, responsive, moving all extremities. Assessment/Plan Assessment/Plan 1. Altered mental status most likely due to hepatic encephalopathy and sepsis 2. Encephalopathy due to infection / Urinary tract infection. 3. Thrombocytopenia. 4. Anemia. 5. Diabetes type 2. 6. Hypertension. 7. Obstructive sleep apnea. 8. Gastroesophageal reflux disease. 9. Hypercholesterolemia. 10. Cardiomyopathy. 11. Liver cirrhosis. 12. Fatty liver. 13. Hypernatremia. 14. RAMYA on CKD on HD 15. Acute Hypoxemic and hypercapnia respiratory failure. 16. MRSA bacteremia- r/o endocarditis 17. Coagulopathy PLAN: discuss with daughter over the phone. Abx:Ertapenem, IV Vancomycin, PO Vancomycin, Inhaled colistin. Monitor labs and cultures F/U Dr. Melendez recommendations: for Trach on Thursday Code status: DNR SCD Rl Tee MD Feb 06, 2017 15:23
--- NOTE | 2017-02-06 16:13 | Cardiac Electrophysiology PN ---
Assessment/Plan Assessment/Plan 1. Congestive heart failure due to diastolic dysfunction. Ejection fraction 60 % to 65%. EKG NSR with low voltage QRS. On dialysis 2. Shock, resolved.Off Dopamine and on Abx 3. Bradycardia resolved, off dopamine. On midodrine 5 tid 4. Vent dependent respiratory failure. Self extubated on 02/04 and was reintubated an hour later. Tracheostomy Thursday. 5. Hyperlipidemia. 6. Cirrhosis 7. Anemia with hemoglobin of 8. 8. Hypernatremia Na 156 per nephrology 9. DNR 10. ESRD on HD 11. DM DW RN Subjective Subjective In ICU unresponsive on Vent.Off pressors.Had 3L dialysis today. Getting PRBC. Objective Last 24 Hour Vital Signs Date Time Temp Pulse Resp B/P (MAP) Pulse Ox O2 Delivery O2 Flow Rate FiO2 02/06/17 15:21 78 20 60 02/06/17 15:00 79 20 96/38 100 Mechanical Ventilator 60 02/06/17 14:00 87 21 111/36 98 Mechanical Ventilator 60 02/06/17 13:00 82 20 102/71 100 Mechanical Ventilator 60 02/06/17 12:57 82 20 60 02/06/17 12:00 98.9 78 20 91/42 100 Mechanical Ventilator 60 02/06/17 12:00 60 02/06/17 12:00 74 02/06/17 11:13 74 20 60 02/06/17 11:00 75 20 88/65 100 Mechanical Ventilator 60 02/06/17 10:10 79 20 97 60 02/06/17 10:00 73 20 85/43 100 Mechanical Ventilator 60 02/06/17 09:57 77 20 100 Mechanical Ventilator 60 02/06/17 09:00 78 20 92/45 100 Mechanical Ventilator 60 02/06/17 08:47 91 20 60 02/06/17 08:35 Mechanical Ventilator 15.0 60 02/06/17 08:00 97.1 82 21 107/41 100 Mechanical Ventilator 60 02/06/17 08:00 81 02/06/17 08:00 60 02/06/17 07:00 101 22 107/50 96 Mechanical Ventilator 60 02/06/17 06:57 94 24 60 02/06/17 06:00 81 22 96/68 100 Mechanical Ventilator 60 02/06/17 05:29 78 20 60 02/06/17 05:00 85 22 98/45 100 Mechanical Ventilator 60 02/06/17 04:50 Mechanical Ventilator 15.0 60 02/06/17 04:00 80 02/06/17 04:00 60 02/06/17 04:00 98.3 64 20 92/41 100 Mechanical Ventilator 60 02/06/17 03:19 71 20 60 02/06/17 03:00 75 22 95/32 100 Mechanical Ventilator 60 02/06/17 02:00 84 22 123/43 100 Mechanical Ventilator 60 02/06/17 01:23 110 27 60 02/06/17 01:00 105 23 123/43 100 Mechanical Ventilator 60 02/06/17 00:00 98.2 68 20 138/47 100 Mechanical Ventilator 60 02/06/17 00:00 70 02/05/17 23:24 70 20 60 02/05/17 23:00 72 20 138/58 100 Mechanical Ventilator 60 02/05/17 22:00 70 20 127/46 100 Mechanical Ventilator 60 02/05/17 21:48 74 20 99 Mechanical Ventilator 60 02/05/17 21:33 65 20 100 Mechanical Ventilator 60 02/05/17 21:30 65 20 60 02/05/17 21:00 72 20 120/49 100 Mechanical Ventilator 60 02/05/17 20:00 60 02/05/17 20:00 98.8 68 20 131/52 100 Mechanical Ventilator 60 02/05/17 20:00 65 02/05/17 19:00 66 20 126/46 100 Mechanical Ventilator 60 02/05/17 18:55 66 20 60 02/05/17 18:00 69 20 121/53 98 Mechanical Ventilator 60 02/05/17 17:09 62 18 60 02/05/17 17:00 70 20 120/45 100 Mechanical Ventilator 60 Intake and Output 02/06/17 02/07/17 19:00 07:00 Intake Total 390 ml Output Total 3000 ml Balance -2610 ml Free Water 30 ml Tube Feeding 280 ml Other 80 ml Output Urine Total 0 ml Hemodialysis UF 3000 ml Laboratory Tests Test 02/06/17 04:45 02/06/17 08:45 White Blood Count 12.1 K/UL (4.8-10.8) H Red Blood Count 2.49 M/UL (4.20-5.40) L Hemoglobin 7.9 G/DL (12.0-16.0) L Hematocrit 25.2 % (37.0-47.0) L Mean Corpuscular Volume 101 FL (80-99) H Mean Corpuscular Hemoglobin 31.6 PG (27.0-31.0) H Mean Corpuscular Hemoglobin Concent 31.2 G/DL (32.0-36.0) L Red Cell Distribution Width 17.7 % (11.6-14.8) H Platelet Count 80 K/UL (150-450) L Mean Platelet Volume 9.2 FL (6.5-10.1) Neutrophils (%) (Auto) % (45.0-75.0) Lymphocytes (%) (Auto) % (20.0-45.0) Monocytes (%) (Auto) % (1.0-10.0) Eosinophils (%) (Auto) % (0.0-3.0) Basophils (%) (Auto) % (0.0-2.0) Differential Total Cells Counted 100 Neutrophils % (Manual) 88 % (45-75) H Lymphocytes % (Manual) 9 % (20-45) L Monocytes % (Manual) 0 % (1-10) L Eosinophils % (Manual) 3 % (0-3) Basophils % (Manual) 0 % (0-2) Band Neutrophils 0 % (0-8) Platelet Estimate Decreased L Platelet Morphology Normal Hypochromasia 1+ Anisocytosis 1+ Macrocytosis 1+ Sodium Level 154 MMOL/L (136-145) H Potassium Level 4.3 MMOL/L (3.5-5.1) Chloride Level 114 MMOL/L (98-107) H Carbon Dioxide Level 31 MMOL/L (21-32) Anion Gap 9 mmol/L (5-15) Blood Urea Nitrogen 44 mg/dL (7-18) H Creatinine 4.7 MG/DL (0.55-1.30) H Estimat Glomerular Filtration Rate mL/min (>60) Glucose Level 395 MG/DL (74-106) H Uric Acid 4.1 MG/DL (2.6-7.2) Calcium Level 9.4 MG/DL (8.5-10.1) Phosphorus Level 2.1 MG/DL (2.5-4.9) L Magnesium Level 2.1 MG/DL (1.8-2.4) Total Bilirubin 1.9 MG/DL (0.2-1.0) H Direct Bilirubin 1.1 MG/DL (0.0-0.3) H Aspartate Amino Transf (AST/SGOT) 35 U/L (15-37) Alanine Aminotransferase (ALT/SGPT) 12 U/L (12-78) Alkaline Phosphatase 176 U/L (46-116) H C-Reactive Protein, Quantitative 14.9 mg/dL (0.00-0.90) H Pro-B-Type Natriuretic Peptide 36803 pg/mL (0-125) H Total Protein 5.3 G/DL (6.4-8.2) L Albumin 1.7 G/DL (3.4-5.0) L Globulin 3.6 g/dL Albumin/Globulin Ratio 0.5 (1.0-2.7) L Arterial Blood pH 7.468 (7.350-7.450) Arterial Blood Partial Pressure CO2 44.9 mmHg (35.0-45.0) Arterial Blood Partial Pressure O2 68.9 mmHg (75.0-100.0) L Arterial Blood HCO3 31.8 mmol/L (22.0-26.0) H Arterial Blood Oxygen Saturation 92.7 % (92.0-98.0) Arterial Blood Base Excess 7.3 Bon Test Positive Objective HEAD AND NECK: No JVD.Orally intubated. Right IJ Mahurkar Catheter in place LUNGS: Coarse rhonchi CARDIOVASCULAR: Regular S1 and S2 with no gallop or murmur. ABDOMEN: Soft and nontender and obese. EXTREMITIES: 1+ pitting edema. DEAN SHAW Feb 06, 2017 16:13
--- NOTE | 2017-02-06 16:27 | Diagnostic Imaging Report ---
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 Endotracheal and nasogastric tubes are again demonstrated. Right jugular temporary dialysis catheter is again demonstrated. There is evidence of prior upper lumbar vertebral body augmentation procedure. Findings are unchanged Impression: Unchanged, over one day, findings as above.
--- NOTE | 2017-02-06 17:40 | General Progress Note ---
Assessment/Plan Assessment/Plan ASSESSMENT AND RECOMMENDATIONS 1.Thrombocytopenia 2/2 sepsis --> improving --> give plts if below 10k or if below 20k and febrile --> ID following 2. Coagulopathy secondary to underlying liver cirrhosis ---> s/p Vitamin K 10 mg sq x1 and 2 units FFP --> check inr in am 3. Thrombocytopenia secondary to underlying splenomegaly. 4. Anemia 2/2 chronic disease --> Watch HH, transfuse if below 8 5. Leukocytosis secondary to underlying infection. On abx per id service 6. Sepsis 2/2 UTI 7. Altered mental status 8. RAMYA on CKD,on hemodialysis Subjective ROS Limited/Unobtainable: Yes Allergies: Coded Allergies: PENICILLINS (Unverified Allergy, Unknown, 03/22/15) Subjective remains on vent, unresponsive Objective Last 24 Hour Vital Signs Date Time Temp Pulse Resp B/P (MAP) Pulse Ox O2 Delivery O2 Flow Rate FiO2 02/06/17 17:00 69 20 88/57 100 Mechanical Ventilator 60 02/06/17 16:37 69 20 60 02/06/17 16:00 60 02/06/17 16:00 72 02/06/17 16:00 98.4 70 20 87/37 100 Mechanical Ventilator 60 02/06/17 15:21 78 20 60 02/06/17 15:00 79 20 96/38 100 Mechanical Ventilator 60 02/06/17 14:00 87 21 111/36 98 Mechanical Ventilator 60 02/06/17 13:00 82 20 102/71 100 Mechanical Ventilator 60 02/06/17 12:57 82 20 60 02/06/17 12:00 98.9 78 20 91/42 100 Mechanical Ventilator 60 02/06/17 12:00 60 02/06/17 12:00 74 02/06/17 11:13 74 20 60 02/06/17 11:00 75 20 88/65 100 Mechanical Ventilator 60 02/06/17 10:10 79 20 97 60 02/06/17 10:00 73 20 85/43 100 Mechanical Ventilator 60 02/06/17 09:57 77 20 100 Mechanical Ventilator 60 02/06/17 09:00 78 20 92/45 100 Mechanical Ventilator 60 02/06/17 08:47 91 20 60 02/06/17 08:35 Mechanical Ventilator 15.0 60 02/06/17 08:00 97.1 82 21 107/41 100 Mechanical Ventilator 60 02/06/17 08:00 81 02/06/17 08:00 60 02/06/17 07:00 101 22 107/50 96 Mechanical Ventilator 60 02/06/17 06:57 94 24 60 02/06/17 06:00 81 22 96/68 100 Mechanical Ventilator 60 02/06/17 05:29 78 20 60 02/06/17 05:00 85 22 98/45 100 Mechanical Ventilator 60 02/06/17 04:50 Mechanical Ventilator 15.0 60 02/06/17 04:00 80 02/06/17 04:00 60 02/06/17 04:00 98.3 64 20 92/41 100 Mechanical Ventilator 60 02/06/17 03:19 71 20 60 02/06/17 03:00 75 22 95/32 100 Mechanical Ventilator 60 02/06/17 02:00 84 22 123/43 100 Mechanical Ventilator 60 02/06/17 01:23 110 27 60 02/06/17 01:00 105 23 123/43 100 Mechanical Ventilator 60 02/06/17 00:00 98.2 68 20 138/47 100 Mechanical Ventilator 60 02/06/17 00:00 70 02/05/17 23:24 70 20 60 02/05/17 23:00 72 20 138/58 100 Mechanical Ventilator 60 02/05/17 22:00 70 20 127/46 100 Mechanical Ventilator 60 02/05/17 21:48 74 20 99 Mechanical Ventilator 60 02/05/17 21:33 65 20 100 Mechanical Ventilator 60 02/05/17 21:30 65 20 60 02/05/17 21:00 72 20 120/49 100 Mechanical Ventilator 60 02/05/17 20:00 60 02/05/17 20:00 98.8 68 20 131/52 100 Mechanical Ventilator 60 02/05/17 20:00 65 02/05/17 19:00 66 20 126/46 100 Mechanical Ventilator 60 02/05/17 18:55 66 20 60 02/05/17 18:00 69 20 121/53 98 Mechanical Ventilator 60 Intake and Output 02/06/17 02/07/17 19:00 07:00 Intake Total 960 ml Output Total 3000 ml Balance -2040 ml Free Water 30 ml IV Total 500 ml Tube Feeding 350 ml Other 80 ml Output Urine Total 0 ml Hemodialysis UF 3000 ml Laboratory Tests 02/06/17 04:45: White Blood Count 12.1H, Red Blood Count 2.49L, Hemoglobin 7.9L, Hematocrit 25.2L, Mean Corpuscular Volume 101H, Mean Corpuscular Hemoglobin 31.6H, Mean Corpuscular Hemoglobin Concent 31.2L, Red Cell Distribution Width 17.7H, Platelet Count 80L, Mean Platelet Volume 9.2, Neutrophils (%) (Auto) , Lymphocytes (%) (Auto) , Monocytes (%) (Auto) , Eosinophils (%) (Auto) , Basophils (%) (Auto) , Differential Total Cells Counted 100, Neutrophils % ( Manual) 88H, Lymphocytes % (Manual) 9L, Monocytes % (Manual) 0L, Eosinophils % ( Manual) 3, Basophils % (Manual) 0, Band Neutrophils 0, Platelet Estimate DecreasedL, Platelet Morphology Normal, Hypochromasia 1+, Anisocytosis 1+, Macrocytosis 1+, Sodium Level 154H, Potassium Level 4.3, Chloride Level 114H, Carbon Dioxide Level 31, Anion Gap 9, Blood Urea Nitrogen 44H, Creatinine 4.7H, Estimat Glomerular Filtration Rate , Glucose Level 395H, Uric Acid 4.1, Calcium Level 9.4, Phosphorus Level 2.1L, Magnesium Level 2.1, Total Bilirubin 1.9H, Direct Bilirubin 1.1H, Aspartate Amino Transf (AST/SGOT) 35, Alanine Aminotransferase (ALT/SGPT) 12, Alkaline Phosphatase 176H, C-Reactive Protein, Quantitative 14.9H, Pro-B-Type Natriuretic Peptide 29709C, Total Protein 5.3L, Albumin 1.7L, Globulin 3.6, Albumin/Globulin Ratio 0.5L 02/06/17 08:45: Arterial Blood pH 7.468H, Arterial Blood Partial Pressure CO2 44.9, Arterial Blood Partial Pressure O2 68.9L, Arterial Blood HCO3 31.8H, Arterial Blood Oxygen Saturation 92.7, Arterial Blood Base Excess 7.3, Bon Test Positive Height (Feet): 5 Height (Inches): 6.00 Weight (Pounds): 286 Chriss Pat Feb 06, 2017 17:40
[2017-02-06] MEDS: Dyna-Hex 2% Top Sol 2oz TOPIC SCH (20:07)
[2017-02-06] MEDS: Ertapenem 0.5 GM in NS 55 ML IVPB SCH (21:12)
[2017-02-06] MEDS ORDERED: D5W 550ml IV ONE (21:38)
[2017-02-06] MEDS ORDERED: Tubing IV Blood Pump IV ONE (21:38)
[2017-02-06] MEDS ORDERED: NS 500ML IV ONE (21:38)
--- NOTE | 2017-02-06 21:51 | General Progress Note ---
Assessment/Plan Assessment/Plan encephalopathy Subjective Date patient seen: Feb 06, 2017 Allergies: Coded Allergies: PENICILLINS (Unverified Allergy, Unknown, 03/22/15) Subjective waxing and waning of consciousness.agitated at times unchanged since previous encounter Objective Last 24 Hour Vital Signs Date Time Temp Pulse Resp B/P (MAP) Pulse Ox O2 Delivery O2 Flow Rate FiO2 02/06/17 21:43 73 20 98 Mechanical Ventilator 60 02/06/17 21:38 83 20 100 Mechanical Ventilator 60 02/06/17 21:38 82 20 Mechanical Ventilator 02/06/17 21:28 83 20 60 02/06/17 19:01 94 21 60 02/06/17 19:00 92 20 126/44 100 Mechanical Ventilator 60 02/06/17 18:00 74 20 103/49 100 Mechanical Ventilator 60 02/06/17 17:00 69 20 88/57 100 Mechanical Ventilator 60 02/06/17 16:37 69 20 60 02/06/17 16:00 60 02/06/17 16:00 72 02/06/17 16:00 98.4 70 20 87/37 100 Mechanical Ventilator 60 02/06/17 15:21 78 20 60 02/06/17 15:00 79 20 96/38 100 Mechanical Ventilator 60 02/06/17 14:00 87 21 111/36 98 Mechanical Ventilator 60 02/06/17 13:00 82 20 102/71 100 Mechanical Ventilator 60 02/06/17 12:57 82 20 60 02/06/17 12:00 98.9 78 20 91/42 100 Mechanical Ventilator 60 02/06/17 12:00 60 02/06/17 12:00 74 02/06/17 11:13 74 20 60 02/06/17 11:00 75 20 88/65 100 Mechanical Ventilator 60 02/06/17 10:10 79 20 97 60 02/06/17 10:00 73 20 85/43 100 Mechanical Ventilator 60 02/06/17 09:57 77 20 100 Mechanical Ventilator 60 02/06/17 09:00 78 20 92/45 100 Mechanical Ventilator 60 02/06/17 08:47 91 20 60 02/06/17 08:35 Mechanical Ventilator 15.0 60 02/06/17 08:00 97.1 82 21 107/41 100 Mechanical Ventilator 60 02/06/17 08:00 81 02/06/17 08:00 60 02/06/17 07:00 101 22 107/50 96 Mechanical Ventilator 60 02/06/17 06:57 94 24 60 02/06/17 06:00 81 22 96/68 100 Mechanical Ventilator 60 02/06/17 05:29 78 20 60 02/06/17 05:00 85 22 98/45 100 Mechanical Ventilator 60 02/06/17 04:50 Mechanical Ventilator 15.0 60 02/06/17 04:00 80 02/06/17 04:00 60 02/06/17 04:00 98.3 64 20 92/41 100 Mechanical Ventilator 60 02/06/17 03:19 71 20 60 02/06/17 03:00 75 22 95/32 100 Mechanical Ventilator 60 02/06/17 02:00 84 22 123/43 100 Mechanical Ventilator 60 02/06/17 01:23 110 27 60 02/06/17 01:00 105 23 123/43 100 Mechanical Ventilator 60 02/06/17 00:00 98.2 68 20 138/47 100 Mechanical Ventilator 60 02/06/17 00:00 70 02/05/17 23:24 70 20 60 02/05/17 23:00 72 20 138/58 100 Mechanical Ventilator 60 02/05/17 22:00 70 20 127/46 100 Mechanical Ventilator 60 Intake and Output 02/06/17 02/07/17 19:00 07:00 Intake Total 1310 ml Output Total 3200 ml Balance -1890 ml Free Water 30 ml IV Total 500 ml Tube Feeding 420 ml Blood Product 250 ml Other 110 ml Output Urine Total 0 ml Stool Total 200 ml Hemodialysis UF 3000 ml Laboratory Tests 02/06/17 04:45: White Blood Count 12.1H, Red Blood Count 2.49L, Hemoglobin 7.9L, Hematocrit 25.2L, Mean Corpuscular Volume 101H, Mean Corpuscular Hemoglobin 31.6H, Mean Corpuscular Hemoglobin Concent 31.2L, Red Cell Distribution Width 17.7H, Platelet Count 80L, Mean Platelet Volume 9.2, Neutrophils (%) (Auto) , Lymphocytes (%) (Auto) , Monocytes (%) (Auto) , Eosinophils (%) (Auto) , Basophils (%) (Auto) , Differential Total Cells Counted 100, Neutrophils % ( Manual) 88H, Lymphocytes % (Manual) 9L, Monocytes % (Manual) 0L, Eosinophils % ( Manual) 3, Basophils % (Manual) 0, Band Neutrophils 0, Platelet Estimate DecreasedL, Platelet Morphology Normal, Hypochromasia 1+, Anisocytosis 1+, Macrocytosis 1+, Sodium Level 154H, Potassium Level 4.3, Chloride Level 114H, Carbon Dioxide Level 31, Anion Gap 9, Blood Urea Nitrogen 44H, Creatinine 4.7H, Estimat Glomerular Filtration Rate , Glucose Level 395H, Uric Acid 4.1, Calcium Level 9.4, Phosphorus Level 2.1L, Magnesium Level 2.1, Total Bilirubin 1.9H, Direct Bilirubin 1.1H, Aspartate Amino Transf (AST/SGOT) 35, Alanine Aminotransferase (ALT/SGPT) 12, Alkaline Phosphatase 176H, C-Reactive Protein, Quantitative 14.9H, Pro-B-Type Natriuretic Peptide 43753K, Total Protein 5.3L, Albumin 1.7L, Globulin 3.6, Albumin/Globulin Ratio 0.5L 02/06/17 08:45: Arterial Blood pH 7.468H, Arterial Blood Partial Pressure CO2 44.9, Arterial Blood Partial Pressure O2 68.9L, Arterial Blood HCO3 31.8H, Arterial Blood Oxygen Saturation 92.7, Arterial Blood Base Excess 7.3, Bon Test Positive 02/06/17 20:41: Random Vancomycin Level 24.7 Height (Feet): 5 Height (Inches): 6.00 Weight (Pounds): 286 Oj Medel M.D. Feb 06, 2017 21:51
[2017-02-07] VITALS (24 sets, daily range): BP systolic 87–130; BP diastolic 33–94
[2017-02-07] MEDS: NovoLOG Insulin Flexpen SUBQ SCH ×6 (01:29→21:17)
[2017-02-07 05:37] LABS: HEMATOCRIT 32.5 % (37.0-47.0); HEMOGLOBIN 10.2 G/DL (12.0-16.0); MEAN CORPUSCULAR VOLUME 99 FL (80-99); PLATELET COUNT 93 K/UL (150-450); RED BLOOD COUNT 3.28 M/UL (4.20-5.40); RED CELL DISTRIBUTION WIDTH 18.4 % (11.6-14.8); WHITE BLOOD COUNT 13.8 K/UL (4.8-10.8)
[2017-02-07] MEDS: Midodrine 10mg tab NG SCH ×3 (05:55→22:00)
[2017-02-07 06:16] LABS: ALANINE AMINOTRANSFERASE 6 U/L (12-78); ALBUMIN 1.7 G/DL (3.4-5.0); ALBUMIN/GLOBULIN RATIO 0.4 (1.0-2.7); ALKALINE PHOSPHATASE 199 U/L (46-116); ANION GAP 8 mmol/L (5-15); ASPARTATE AMINO TRANSFERASE 38 U/L (15-37); BILIRUBIN,TOTAL 2.1 MG/DL (0.2-1.0); BLOOD UREA NITROGEN 32 mg/dL (7-18); CALCIUM 9.1 MG/DL (8.5-10.1); CARBON DIOXIDE 32 MMOL/L (21-32); CHLORIDE 109 MMOL/L (98-107); CREATININE 3.9 MG/DL (0.55-1.30); POTASSIUM 3.2 MMOL/L (3.5-5.1); SODIUM 149 MMOL/L (136-145)
[2017-02-07 06:39] LABS: BILIRUBIN,DIRECT 1.1 MG/DL (0.0-0.3)
[2017-02-07 08:34] LABS: PHOSPHORUS 2.2 MG/DL (2.5-4.9)
[2017-02-07] MEDS ORDERED: Tubing IV Blood Pump IV ONE (09:23)
[2017-02-07] MEDS ORDERED: NS Irrig 1000ml ONE (09:23)
[2017-02-07] MEDS ORDERED: D5W 550ml IV ONE (09:23)
[2017-02-07] MEDS ORDERED: Tubing IV Secondary IV ONE (09:23)
[2017-02-07] MEDS: Nystatin Powder 100,000 units/gm 15gm TOPIC SCH ×3 (09:46→18:00)
[2017-02-07] MEDS: Vancomycin oral 125mg/2.5ml NG SCH ×2 (09:46→18:00)
[2017-02-07] MEDS: Colistin for inhalation INH SCH ×2 (09:54→22:05)
--- NOTE | 2017-02-07 10:56 | Infectious Diseases Prog Note ---
Assessment/Plan Assessment/Plan A: New sepsis Pneumonia with Acinetobacter MRSA sepsis UTI Altered mental status Cirrhosis Anemia & thrombocytopenia DM type 2 Morbid obesity ESRD on HD P: Continue Vancomycin & Ertapenem & Colistin Case was D/W PMD Subjective ROS Limited/Unobtainable: Yes Neurologic: Reports: confusion, other - on restraint Allergies: Coded Allergies: PENICILLINS (Unverified Allergy, Unknown, 03/22/15) Objective Vital Signs Last 24 Hour Vital Signs Date Time Temp Pulse Resp B/P (MAP) Pulse Ox O2 Delivery O2 Flow Rate FiO2 02/07/17 10:06 66 20 97 Mechanical Ventilator 50 02/07/17 10:00 68 20 98/40 100 Mechanical Ventilator 50 02/07/17 09:54 61 20 100 Mechanical Ventilator 50 02/07/17 09:35 73 20 50 02/07/17 09:00 72 20 95/42 97 Mechanical Ventilator 60 02/07/17 08:00 98.9 68 20 115/48 99 Mechanical Ventilator 60 02/07/17 07:41 63 20 60 02/07/17 07:00 67 20 128/45 98 Mechanical Ventilator 60 02/07/17 06:00 70 20 110/50 100 Mechanical Ventilator 60 02/07/17 05:17 78 20 60 02/07/17 05:00 76 20 104/52 100 Mechanical Ventilator 60 02/07/17 04:00 98.6 72 20 109/65 100 Mechanical Ventilator 60 02/07/17 04:00 60 02/07/17 04:00 72 02/07/17 03:00 91 20 129/77 100 Mechanical Ventilator 60 02/07/17 02:53 86 20 60 02/07/17 02:00 86 20 130/94 99 Mechanical Ventilator 60 02/07/17 01:10 81 20 60 02/07/17 01:00 73 20 87/60 100 Mechanical Ventilator 60 02/07/17 00:00 77 02/07/17 00:00 60 02/07/17 00:00 98.4 78 20 103/38 100 Mechanical Ventilator 60 02/06/17 23:00 78 20 100/50 99 Mechanical Ventilator 60 02/06/17 23:00 84 20 60 02/06/17 22:00 79 20 88/42 99 Mechanical Ventilator 60 02/06/17 21:43 73 20 98 Mechanical Ventilator 60 02/06/17 21:38 83 20 100 Mechanical Ventilator 60 02/06/17 21:38 82 20 Mechanical Ventilator 02/06/17 21:28 83 20 60 02/06/17 21:00 83 19 100/43 98 Mechanical Ventilator 60 02/06/17 20:00 91 02/06/17 20:00 98.6 91 21 94/38 98 Mechanical Ventilator 60 02/06/17 19:01 94 21 60 02/06/17 19:00 92 20 126/44 100 Mechanical Ventilator 60 02/06/17 18:00 74 20 103/49 100 Mechanical Ventilator 60 02/06/17 17:00 69 20 88/57 100 Mechanical Ventilator 60 02/06/17 16:37 69 20 60 02/06/17 16:00 60 02/06/17 16:00 72 02/06/17 16:00 98.4 70 20 87/37 100 Mechanical Ventilator 60 02/06/17 15:21 78 20 60 02/06/17 15:00 79 20 96/38 100 Mechanical Ventilator 60 02/06/17 14:00 87 21 111/36 98 Mechanical Ventilator 60 02/06/17 13:00 82 20 102/71 100 Mechanical Ventilator 60 02/06/17 12:57 82 20 60 02/06/17 12:00 98.9 78 20 91/42 100 Mechanical Ventilator 60 02/06/17 12:00 60 02/06/17 12:00 74 02/06/17 11:13 74 20 60 02/06/17 11:00 75 20 88/65 100 Mechanical Ventilator 60 Height (Feet): 5 Height (Inches): 6.00 Weight (Pounds): 283 HEENT: other - orally intubated Respiratory/Chest: lungs clear, other - on ventilator Cardiovascular: normal rate, other - RIJ HD line Abdomen: soft, non tender, other - NG tube Extremities: other - edema Neurologic/Psychiatric: disoriented Microbiology Date/Time Source Procedure Growth Status 02/05/17 20:35 Blood Blood Culture - Preliminary NO GROWTH AFTER 24 HOURS Resulted 02/05/17 20:20 Blood Blood Culture - Preliminary NO GROWTH AFTER 24 HOURS Resulted 02/06/17 10:40 Sputum Gram Stain - Final Resulted 02/06/17 10:40 Sputum Sputum Culture Pending Resulted Laboratory Tests Test 02/06/17 20:41 02/07/17 03:10 Random Vancomycin Level 24.7 ug/mL White Blood Count 13.8 K/UL (4.8-10.8) H Red Blood Count 3.28 M/UL (4.20-5.40) L Hemoglobin 10.2 G/DL (12.0-16.0) L Hematocrit 32.5 % (37.0-47.0) L Mean Corpuscular Volume 99 FL (80-99) Mean Corpuscular Hemoglobin 31.2 PG (27.0-31.0) H Mean Corpuscular Hemoglobin Concent 31.5 G/DL (32.0-36.0) L Red Cell Distribution Width 18.4 % (11.6-14.8) H Platelet Count 93 K/UL (150-450) L Mean Platelet Volume 9.8 FL (6.5-10.1) Neutrophils (%) (Auto) % (45.0-75.0) Lymphocytes (%) (Auto) % (20.0-45.0) Monocytes (%) (Auto) % (1.0-10.0) Eosinophils (%) (Auto) % (0.0-3.0) Basophils (%) (Auto) % (0.0-2.0) Differential Total Cells Counted 100 Neutrophils % (Manual) 82 % (45-75) H Lymphocytes % (Manual) 11 % (20-45) L Monocytes % (Manual) 3 % (1-10) Eosinophils % (Manual) 4 % (0-3) H Basophils % (Manual) 0 % (0-2) Band Neutrophils 0 % (0-8) Platelet Estimate Decreased L Platelet Morphology Normal Anisocytosis 1+ Stomatocytes 1+ Sodium Level 149 MMOL/L (136-145) H Potassium Level 3.2 MMOL/L (3.5-5.1) L Chloride Level 109 MMOL/L (98-107) H Carbon Dioxide Level 32 MMOL/L (21-32) Anion Gap 8 mmol/L (5-15) Blood Urea Nitrogen 32 mg/dL (7-18) H Creatinine 3.9 MG/DL (0.55-1.30) H Estimat Glomerular Filtration Rate mL/min (>60) Glucose Level 339 MG/DL (74-106) H Uric Acid 3.0 MG/DL (2.6-7.2) Calcium Level 9.1 MG/DL (8.5-10.1) Phosphorus Level 2.2 MG/DL (2.5-4.9) L Magnesium Level 1.9 MG/DL (1.8-2.4) Total Bilirubin 2.1 MG/DL (0.2-1.0) H Direct Bilirubin 1.1 MG/DL (0.0-0.3) H Aspartate Amino Transf (AST/SGOT) 38 U/L (15-37) H Alanine Aminotransferase (ALT/SGPT) 6 U/L (12-78) L Alkaline Phosphatase 199 U/L (46-116) H Pro-B-Type Natriuretic Peptide 05486 pg/mL (0-125) H Total Protein 6.1 G/DL (6.4-8.2) L Albumin 1.7 G/DL (3.4-5.0) L Globulin 4.4 g/dL Albumin/Globulin Ratio 0.4 (1.0-2.7) L Current Medications Medications (Trade) Dose Ordered Sig/Pavel Route PRN Reason Start Time Stop Time Status Last Admin Dose Admin Acetaminophen (Tylenol) 650 mg Q4H PRN ORAL T>100.5 01/21/17 14:30 02/15/17 14:29 02/05/17 07:41 Chlorhexidine Gluconate (Dianne-Hex 2%) 1 applic DAILY@2000 TOPIC 01/25/17 20:00 02/24/17 19:59 02/06/17 20:07 Clotrimazole (Lotrimin) 1 applic EVERY 12 HOURS TOPIC 01/21/17 21:00 02/18/17 13:59 02/07/17 09:46 Colistimethate Sodium (Colistin *inhalation use only*) 75 mg Q12HRT INH 01/29/17 22:00 02/07/17 23:59 02/07/17 09:54 Dextrose (Dextrose 50%) STAT PRN IV Hypoglycemia 02/06/17 10:45 03/08/17 10:44 Dopamine HCl/ Dextrose 250 ml @ 0 mls/hr Q24H IV 01/25/17 11:15 02/24/17 11:14 01/30/17 10:30 Ertapenem 0.5 gm/ Sodium Chloride 55 ml @ 110 mls/hr Q24H IVPB 02/02/17 21:00 02/11/17 20:59 02/06/17 21:12 Insulin Aspart (NovoLOG) EVERY 4 HOURS SUBQ 02/06/17 12:00 03/08/17 11:59 02/07/17 09:44 Metoclopramide HCl (Reglan) 5 mg Q8H PRN IVP Nausea & Vomiting 01/29/17 11:30 02/28/17 11:29 01/31/17 11:46 Midodrine (Pro-Amatine) 10 mg Q8HR NG 02/03/17 14:00 03/05/17 13:59 02/07/17 05:55 Morphine Sulfate (Morphine Sulfate) 2 mg Q4H PRN IVP PAIN 4-10 02/05/17 20:30 02/12/17 20:29 02/06/17 20:08 Nitroglycerin (Ntg) 0.4 mg Q5MIN X 3 DOSES PRN SL Prn Chest Pain 01/21/17 14:30 02/15/17 14:29 Nystatin (Nystop Powder) 1 applic THREE TIMES A DAY TOPIC 01/22/17 13:00 02/21/17 12:59 02/07/17 09:46 Ranitidine HCl (Zantac) 150 mg DAILY NG 02/03/17 18:00 03/05/17 17:59 02/07/17 09:45 Rifaximin (Xifaxan) 550 mg EVERY 12 HOURS ORAL 01/29/17 12:00 03/07/17 11:59 02/07/17 09:46 Vancomycin HCl (Vanco rx to dose) 1 ea DAILY PRN MISC Per rx protocol 02/05/17 19:15 03/07/17 19:14 Vancomycin HCl (Vancomycin) 125 mg BID NG 02/02/17 16:00 02/09/17 15:59 02/07/17 09:46 SUMMER BYRNES Feb 07, 2017 10:56
--- NOTE | 2017-02-07 11:06 | Internal Med Progress Note ---
Subjective Date of Service: Feb 07, 2017 Physician Name Katharina Pond Attending Physician Rl Tee MD Current Medications Medications (Trade) Dose Ordered Sig/Pavel Route PRN Reason Start Time Stop Time Status Last Admin Dose Admin Acetaminophen (Tylenol) 650 mg Q4H PRN ORAL T>100.5 01/21/17 14:30 02/15/17 14:29 02/05/17 07:41 Chlorhexidine Gluconate (Dianne-Hex 2%) 1 applic DAILY@2000 TOPIC 01/25/17 20:00 02/24/17 19:59 02/06/17 20:07 Clotrimazole (Lotrimin) 1 applic EVERY 12 HOURS TOPIC 01/21/17 21:00 02/18/17 13:59 02/07/17 09:46 Colistimethate Sodium (Colistin *inhalation use only*) 75 mg Q12HRT INH 01/29/17 22:00 02/07/17 23:59 02/07/17 09:54 Dextrose (Dextrose 50%) STAT PRN IV Hypoglycemia 02/06/17 10:45 03/08/17 10:44 Dopamine HCl/ Dextrose 250 ml @ 0 mls/hr Q24H IV 01/25/17 11:15 02/24/17 11:14 01/30/17 10:30 Ertapenem 0.5 gm/ Sodium Chloride 55 ml @ 110 mls/hr Q24H IVPB 02/02/17 21:00 02/11/17 20:59 02/06/17 21:12 Insulin Aspart (NovoLOG) EVERY 4 HOURS SUBQ 02/06/17 12:00 03/08/17 11:59 02/07/17 09:44 Metoclopramide HCl (Reglan) 5 mg Q8H PRN IVP Nausea & Vomiting 01/29/17 11:30 02/28/17 11:29 01/31/17 11:46 Midodrine (Pro-Amatine) 10 mg Q8HR NG 02/03/17 14:00 03/05/17 13:59 02/07/17 05:55 Morphine Sulfate (Morphine Sulfate) 2 mg Q4H PRN IVP PAIN 4-10 02/05/17 20:30 02/12/17 20:29 02/06/17 20:08 Nitroglycerin (Ntg) 0.4 mg Q5MIN X 3 DOSES PRN SL Prn Chest Pain 01/21/17 14:30 02/15/17 14:29 Nystatin (Nystop Powder) 1 applic THREE TIMES A DAY TOPIC 01/22/17 13:00 02/21/17 12:59 02/07/17 09:46 Ranitidine HCl (Zantac) 150 mg DAILY NG 02/03/17 18:00 03/05/17 17:59 02/07/17 09:45 Rifaximin (Xifaxan) 550 mg EVERY 12 HOURS ORAL 01/29/17 12:00 03/07/17 11:59 02/07/17 09:46 Vancomycin HCl (Vanco rx to dose) 1 ea DAILY PRN MISC Per rx protocol 02/05/17 19:15 03/07/17 19:14 Vancomycin HCl (Vancomycin) 125 mg BID NG 02/02/17 16:00 02/09/17 15:59 02/07/17 09:46 Allergies: Coded Allergies: PENICILLINS (Unverified Allergy, Unknown, 03/22/15) Subjective 76 YO F admitted with altered mental status. Intubated and sedated. ICU . Cover for Int Med-Dr Tee. Await tracheostomy on 02/10/17 Objective Last Vital Signs Date Time Temp Pulse Resp B/P (MAP) Pulse Ox O2 Delivery O2 Flow Rate FiO2 02/07/17 10:06 66 20 97 Mechanical Ventilator 50 02/07/17 10:00 98/40 02/07/17 08:00 98.9 02/06/17 08:35 15.0 Laboratory Tests Test 02/06/17 20:41 02/07/17 03:10 Random Vancomycin Level 24.7 ug/mL White Blood Count 13.8 K/UL (4.8-10.8) H Red Blood Count 3.28 M/UL (4.20-5.40) L Hemoglobin 10.2 G/DL (12.0-16.0) L Hematocrit 32.5 % (37.0-47.0) L Mean Corpuscular Volume 99 FL (80-99) Mean Corpuscular Hemoglobin 31.2 PG (27.0-31.0) H Mean Corpuscular Hemoglobin Concent 31.5 G/DL (32.0-36.0) L Red Cell Distribution Width 18.4 % (11.6-14.8) H Platelet Count 93 K/UL (150-450) L Mean Platelet Volume 9.8 FL (6.5-10.1) Neutrophils (%) (Auto) % (45.0-75.0) Lymphocytes (%) (Auto) % (20.0-45.0) Monocytes (%) (Auto) % (1.0-10.0) Eosinophils (%) (Auto) % (0.0-3.0) Basophils (%) (Auto) % (0.0-2.0) Differential Total Cells Counted 100 Neutrophils % (Manual) 82 % (45-75) H Lymphocytes % (Manual) 11 % (20-45) L Monocytes % (Manual) 3 % (1-10) Eosinophils % (Manual) 4 % (0-3) H Basophils % (Manual) 0 % (0-2) Band Neutrophils 0 % (0-8) Platelet Estimate Decreased L Platelet Morphology Normal Anisocytosis 1+ Stomatocytes 1+ Sodium Level 149 MMOL/L (136-145) H Potassium Level 3.2 MMOL/L (3.5-5.1) L Chloride Level 109 MMOL/L (98-107) H Carbon Dioxide Level 32 MMOL/L (21-32) Anion Gap 8 mmol/L (5-15) Blood Urea Nitrogen 32 mg/dL (7-18) H Creatinine 3.9 MG/DL (0.55-1.30) H Estimat Glomerular Filtration Rate mL/min (>60) Glucose Level 339 MG/DL (74-106) H Uric Acid 3.0 MG/DL (2.6-7.2) Calcium Level 9.1 MG/DL (8.5-10.1) Phosphorus Level 2.2 MG/DL (2.5-4.9) L Magnesium Level 1.9 MG/DL (1.8-2.4) Total Bilirubin 2.1 MG/DL (0.2-1.0) H Direct Bilirubin 1.1 MG/DL (0.0-0.3) H Aspartate Amino Transf (AST/SGOT) 38 U/L (15-37) H Alanine Aminotransferase (ALT/SGPT) 6 U/L (12-78) L Alkaline Phosphatase 199 U/L (46-116) H Pro-B-Type Natriuretic Peptide 97353 pg/mL (0-125) H Total Protein 6.1 G/DL (6.4-8.2) L Albumin 1.7 G/DL (3.4-5.0) L Globulin 4.4 g/dL Albumin/Globulin Ratio 0.4 (1.0-2.7) L Microbiology Date/Time Source Procedure Growth Status 02/05/17 20:35 Blood Blood Culture - Preliminary NO GROWTH AFTER 24 HOURS Resulted 02/05/17 20:20 Blood Blood Culture - Preliminary NO GROWTH AFTER 24 HOURS Resulted 02/06/17 10:40 Sputum Gram Stain - Final Resulted 02/06/17 10:40 Sputum Sputum Culture Pending Resulted Intake and Output 02/07/17 02/08/17 19:00 07:00 Intake Total 135 ml Output Total 0 ml Balance 135 ml Free Water 30 ml Tube Feeding 105 ml Output Urine Total 0 ml Objective General Appearance: WD/WN, no apparent distress, moderate distress, obese EENT: PERRL/EOMI, normal ENT inspection Neck: non-tender, normal alignment, supple, normal inspection Cardiovascular: normal peripheral pulses, normal rate, regular rhythm, no gallop/murmur, no JVD Respiratory/Chest: Mechanical vent; chest wall non-tender, lungs with coarse upper air sounds, Bilat wheezes and rales, respiratory distress Abdomen: G-Tube; non tender, no organomegaly, no mass Neurologic: director digital communications 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 Baumanii. See ID note. Continur ertaoenem and vanco per ID (2) CHF (congestive heart failure) Assessment & Plan: LVEF 60-65%. see cardiology note. (3) DM (diabetes mellitus) Assessment & Plan: Continue novolog sliding scale (4) Hypercholesteremia (5) HTN (hypertension) Assessment & Plan: Currently hypotensive. (6) Uncontrolled diabetes mellitus (7) Cirrhosis Assessment & Plan: see GI note. (8) Anemia Assessment & Plan: S/P transfusion 2 units PRBC (9) Altered mental status Assessment & Plan: Worsening. ICU status (10) Renal failure Assessment & Plan: Last hemodialysis 02/06/17. See nephrology note. (11) Respiratory failure Assessment & Plan: Due to CHF. Cont mech vent per pulmonary-await tracheostomy 02/10/17. Continue antibiotic per ID (12) Bradycardia Assessment & Plan: see cardiology note. (13) Hypotension Assessment & Plan: Continue dopamine Status: not improved Assessment/Plan Await tracheostomy 02/10/17. KATHARINA POND Feb 07, 2017 11:06
[2017-02-07] MEDS: DOPamine 400mg/250ml 250 ML IV SCH (11:15)
--- NOTE | 2017-02-07 11:33 | Diagnostic Imaging Report ---
Indication: Dyspnea Comparison: 02/06/17 A single view chest radiograph was obtained. Findings: Extensive bilateral airspace disease again noted. Cardiomegaly is stable. Tubes and lines are stable. Impression: No record changer tester 24 hours
--- NOTE | 2017-02-07 11:33 | Diagnostic Imaging Report ---
Indication: Dyspnea Comparison: 02/06/17 A single view chest radiograph was obtained. Findings: Extensive bilateral airspace disease again noted. Cardiomegaly is stable. Tubes and lines are stable. Impression: No change number operator 24 hours
--- NOTE | 2017-02-07 11:33 | Diagnostic Imaging Report ---
Indication: Dyspnea Comparison: 02/06/17 A single view chest radiograph was obtained. Findings: Extensive bilateral airspace disease again noted. Cardiomegaly is stable. Tubes and lines are stable. Impression: No change director 24 hours
[2017-02-07] MEDS: Morphine Sulfate 2mg/ml Inj IVP PRN (12:01)
--- NOTE | 2017-02-07 12:23 | Pulmonolgy Critical Care Note ---
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 Respiratory: monitor respiratory rate, adjust FIO2 Cardiac: continue pressors, continue to monitor HR/BP Renal: F/U I&O, keep IV fluid Infectious Disease: check cultures, continue antibiotics Gastrointestinal: continue feedings/current rate Endocrine: monitor blood sugar, continue sliding scale insulin Hematologic: monitor H/H, transfuse if hgb<8.5 Neurologic: PRN Morphine, keep patient comfortable Affect: PRN ativan Prophylaxis: Protonix, Heparin Disposition: keep in ICU Notes Reviewed: electrical and instrumentation manager, cardio, renal Discussed with: nurses, consultants, director case managementprogram manager rn - Objective Last 24 Hour Vital Signs Date Time Temp Pulse Resp B/P (MAP) Pulse Ox O2 Delivery O2 Flow Rate FiO2 02/07/17 11:07 69 20 50 02/07/17 11:00 76 20 124/73 100 Mechanical Ventilator 50 02/07/17 10:06 66 20 97 Mechanical Ventilator 50 02/07/17 10:00 68 20 98/40 100 Mechanical Ventilator 50 02/07/17 09:54 61 20 100 Mechanical Ventilator 50 02/07/17 09:35 73 20 50 02/07/17 09:00 72 20 95/42 97 Mechanical Ventilator 60 02/07/17 08:00 60 02/07/17 08:00 69 02/07/17 08:00 98.9 68 20 115/48 99 Mechanical Ventilator 60 02/07/17 07:41 63 20 60 02/07/17 07:00 67 20 128/45 98 Mechanical Ventilator 60 02/07/17 06:00 70 20 110/50 100 Mechanical Ventilator 60 02/07/17 05:17 78 20 60 02/07/17 05:00 76 20 104/52 100 Mechanical Ventilator 60 02/07/17 04:00 98.6 72 20 109/65 100 Mechanical Ventilator 60 02/07/17 04:00 60 02/07/17 04:00 72 02/07/17 03:00 91 20 129/77 100 Mechanical Ventilator 60 02/07/17 02:53 86 20 60 02/07/17 02:00 86 20 130/94 99 Mechanical Ventilator 60 02/07/17 01:10 81 20 60 02/07/17 01:00 73 20 87/60 100 Mechanical Ventilator 60 02/07/17 00:00 77 02/07/17 00:00 60 02/07/17 00:00 98.4 78 20 103/38 100 Mechanical Ventilator 60 02/06/17 23:00 78 20 100/50 99 Mechanical Ventilator 60 02/06/17 23:00 84 20 60 02/06/17 22:00 79 20 88/42 99 Mechanical Ventilator 60 02/06/17 21:43 73 20 98 Mechanical Ventilator 60 02/06/17 21:38 83 20 100 Mechanical Ventilator 60 02/06/17 21:38 82 20 Mechanical Ventilator 02/06/17 21:28 83 20 60 02/06/17 21:00 83 19 100/43 98 Mechanical Ventilator 60 02/06/17 20:00 91 02/06/17 20:00 98.6 91 21 94/38 98 Mechanical Ventilator 60 02/06/17 19:01 94 21 60 02/06/17 19:00 92 20 126/44 100 Mechanical Ventilator 60 02/06/17 18:00 74 20 103/49 100 Mechanical Ventilator 60 02/06/17 17:00 69 20 88/57 100 Mechanical Ventilator 60 02/06/17 16:37 69 20 60 02/06/17 16:00 60 02/06/17 16:00 72 02/06/17 16:00 98.4 70 20 87/37 100 Mechanical Ventilator 60 02/06/17 15:21 78 20 60 02/06/17 15:00 79 20 96/38 100 Mechanical Ventilator 60 02/06/17 14:00 87 21 111/36 98 Mechanical Ventilator 60 02/06/17 13:00 82 20 102/71 100 Mechanical Ventilator 60 02/06/17 12:57 82 20 60 Status: awake Condition: critical HEENT: atraumatic, normocephalic Lungs: clear, chest wall tender Heart: HR/BP stable, HR/BP unstable Abdomen: soft, non-tender, active bowel sounds, feeding tube Extremities: no C/C/E, edema Decubiti: location Micro: Microbiology Date/Time Source Procedure Growth Status 02/05/17 20:35 Blood Blood Culture - Preliminary NO GROWTH AFTER 24 HOURS Resulted 02/05/17 20:20 Blood Blood Culture - Preliminary NO GROWTH AFTER 24 HOURS Resulted 02/06/17 10:40 Sputum Gram Stain - Final Resulted 02/06/17 10:40 Sputum Sputum Culture Pending Resulted Accucheck: 348 Critical Care - Subjective ROS Limited/Unobtainable: No ICU Day: 17 Intubation Day: 17 Condition: critical EKG Rhythm: Sinus Rhythm FI02: 50 Vent Support Breath Rate: 20 Vent Support Mode: AC Vent Tidal Volume: 650 Sputum Amount: Small PEEP: 0.0 PIP: 48 Tube Feeding Amount: 35 I&O: Intake and Output 02/07/17 02/08/17 19:00 07:00 Intake Total 170 ml Output Total 0 ml Balance 170 ml Free Water 30 ml Tube Feeding 140 ml Output Urine Total 0 ml CXR: no change ET-Tube: 7.0 ET Position: 20 Labs: Laboratory Tests Test 02/06/17 20:41 02/07/17 03:10 Random Vancomycin Level 24.7 ug/mL White Blood Count 13.8 K/UL (4.8-10.8) H Red Blood Count 3.28 M/UL (4.20-5.40) L Hemoglobin 10.2 G/DL (12.0-16.0) L Hematocrit 32.5 % (37.0-47.0) L Mean Corpuscular Volume 99 FL (80-99) Mean Corpuscular Hemoglobin 31.2 PG (27.0-31.0) H Mean Corpuscular Hemoglobin Concent 31.5 G/DL (32.0-36.0) L Red Cell Distribution Width 18.4 % (11.6-14.8) H Platelet Count 93 K/UL (150-450) L Mean Platelet Volume 9.8 FL (6.5-10.1) Neutrophils (%) (Auto) % (45.0-75.0) Lymphocytes (%) (Auto) % (20.0-45.0) Monocytes (%) (Auto) % (1.0-10.0) Eosinophils (%) (Auto) % (0.0-3.0) Basophils (%) (Auto) % (0.0-2.0) Differential Total Cells Counted 100 Neutrophils % (Manual) 82 % (45-75) H Lymphocytes % (Manual) 11 % (20-45) L Monocytes % (Manual) 3 % (1-10) Eosinophils % (Manual) 4 % (0-3) H Basophils % (Manual) 0 % (0-2) Band Neutrophils 0 % (0-8) Platelet Estimate Decreased L Platelet Morphology Normal Anisocytosis 1+ Stomatocytes 1+ Sodium Level 149 MMOL/L (136-145) H Potassium Level 3.2 MMOL/L (3.5-5.1) L Chloride Level 109 MMOL/L (98-107) H Carbon Dioxide Level 32 MMOL/L (21-32) Anion Gap 8 mmol/L (5-15) Blood Urea Nitrogen 32 mg/dL (7-18) H Creatinine 3.9 MG/DL (0.55-1.30) H Estimat Glomerular Filtration Rate mL/min (>60) Glucose Level 339 MG/DL (74-106) H Uric Acid 3.0 MG/DL (2.6-7.2) Calcium Level 9.1 MG/DL (8.5-10.1) Phosphorus Level 2.2 MG/DL (2.5-4.9) L Magnesium Level 1.9 MG/DL (1.8-2.4) Total Bilirubin 2.1 MG/DL (0.2-1.0) H Direct Bilirubin 1.1 MG/DL (0.0-0.3) H Aspartate Amino Transf (AST/SGOT) 38 U/L (15-37) H Alanine Aminotransferase (ALT/SGPT) 6 U/L (12-78) L Alkaline Phosphatase 199 U/L (46-116) H Pro-B-Type Natriuretic Peptide 29552 pg/mL (0-125) H Total Protein 6.1 G/DL (6.4-8.2) L Albumin 1.7 G/DL (3.4-5.0) L Globulin 4.4 g/dL Albumin/Globulin Ratio 0.4 (1.0-2.7) L DIONI TRIANA Feb 07, 2017 12:23
--- NOTE | 2017-02-07 14:22 | General Progress Note ---
Assessment/Plan Status: unchanged Assessment/Plan Acute on chronic renal failure- multifactorial CHF DM HTN Sepsis Now: Acute respiratory failure- Intubated - Altered level of consciousness - ESBL (extended spectrum beta-lactamase) producing bacteria infection - Cardiomegaly - DM (diabetes mellitus) - HTN (hypertension) - UTI (urinary tract infection) - Anemia - High Cholestrol - COPD - YELENA - Fatty liver Plan: due trach 02/10 D5w 500 cc K Phos IV On midodrine dialysis 02/06 done next 02/09 Transfuse as needed, one unit 02/04 Optimize cardiac and pulmonary status 2D echo results noted avoid nephrotoxics monitor renal parameters Urine studies per orders poor prognosis Subjective ROS Limited/Unobtainable: Yes Allergies: Coded Allergies: PENICILLINS (Unverified Allergy, Unknown, 03/22/15) Objective Last 24 Hour Vital Signs Date Time Temp Pulse Resp B/P (MAP) Pulse Ox O2 Delivery O2 Flow Rate FiO2 02/07/17 14:00 63 22 91/33 97 Mechanical Ventilator 50 02/07/17 13:28 71 20 50 02/07/17 13:00 65 20 92/39 99 Mechanical Ventilator 50 02/07/17 12:00 105 02/07/17 12:00 98.7 85 20 124/73 97 Mechanical Ventilator 50 02/07/17 12:00 50 02/07/17 11:15 98/40 02/07/17 11:07 69 20 50 02/07/17 11:00 76 20 124/73 100 Mechanical Ventilator 50 02/07/17 10:06 66 20 97 Mechanical Ventilator 50 02/07/17 10:00 68 20 98/40 100 Mechanical Ventilator 50 02/07/17 09:54 61 20 100 Mechanical Ventilator 50 02/07/17 09:35 73 20 50 02/07/17 09:00 72 20 95/42 97 Mechanical Ventilator 60 02/07/17 08:00 60 02/07/17 08:00 69 02/07/17 08:00 98.9 68 20 115/48 99 Mechanical Ventilator 60 02/07/17 07:41 63 20 60 02/07/17 07:00 67 20 128/45 98 Mechanical Ventilator 60 02/07/17 06:00 70 20 110/50 100 Mechanical Ventilator 60 02/07/17 05:17 78 20 60 02/07/17 05:00 76 20 104/52 100 Mechanical Ventilator 60 02/07/17 04:00 98.6 72 20 109/65 100 Mechanical Ventilator 60 02/07/17 04:00 60 02/07/17 04:00 72 02/07/17 03:00 91 20 129/77 100 Mechanical Ventilator 60 02/07/17 02:53 86 20 60 02/07/17 02:00 86 20 130/94 99 Mechanical Ventilator 60 02/07/17 01:10 81 20 60 02/07/17 01:00 73 20 87/60 100 Mechanical Ventilator 60 02/07/17 00:00 77 02/07/17 00:00 60 02/07/17 00:00 98.4 78 20 103/38 100 Mechanical Ventilator 60 02/06/17 23:00 78 20 100/50 99 Mechanical Ventilator 60 02/06/17 23:00 84 20 60 02/06/17 22:00 79 20 88/42 99 Mechanical Ventilator 60 02/06/17 21:43 73 20 98 Mechanical Ventilator 60 02/06/17 21:38 83 20 100 Mechanical Ventilator 60 02/06/17 21:38 82 20 Mechanical Ventilator 02/06/17 21:28 83 20 60 02/06/17 21:00 83 19 100/43 98 Mechanical Ventilator 60 02/06/17 20:00 91 02/06/17 20:00 98.6 91 21 94/38 98 Mechanical Ventilator 60 02/06/17 19:01 94 21 60 02/06/17 19:00 92 20 126/44 100 Mechanical Ventilator 60 02/06/17 18:00 74 20 103/49 100 Mechanical Ventilator 60 02/06/17 17:00 69 20 88/57 100 Mechanical Ventilator 60 02/06/17 16:37 69 20 60 02/06/17 16:00 60 02/06/17 16:00 72 02/06/17 16:00 98.4 70 20 87/37 100 Mechanical Ventilator 60 02/06/17 15:21 78 20 60 02/06/17 15:00 79 20 96/38 100 Mechanical Ventilator 60 Intake and Output 02/07/17 02/08/17 19:00 07:00 Intake Total 275 ml Output Total 0 ml Balance 275 ml Free Water 30 ml Tube Feeding 245 ml Output Urine Total 0 ml Laboratory Tests 02/06/17 20:41: Random Vancomycin Level 24.7 02/07/17 03:10: White Blood Count 13.8H, Red Blood Count 3.28L, Hemoglobin 10.2L, Hematocrit 32.5L, Mean Corpuscular Volume 99, Mean Corpuscular Hemoglobin 31.2H, Mean Corpuscular Hemoglobin Concent 31.5L, Red Cell Distribution Width 18.4H, Platelet Count 93L, Mean Platelet Volume 9.8, Neutrophils (%) (Auto) , Lymphocytes (%) (Auto) , Monocytes (%) (Auto) , Eosinophils (%) (Auto) , Basophils (%) (Auto) , Differential Total Cells Counted 100, Neutrophils % ( Manual) 82H, Lymphocytes % (Manual) 11L, Monocytes % (Manual) 3, Eosinophils % ( Manual) 4H, Basophils % (Manual) 0, Band Neutrophils 0, Platelet Estimate DecreasedL, Platelet Morphology Normal, Anisocytosis 1+, Stomatocytes 1+, Sodium Level 149H, Potassium Level 3.2L, Chloride Level 109H, Carbon Dioxide Level 32, Anion Gap 8, Blood Urea Nitrogen 32H, Creatinine 3.9H, Estimat Glomerular Filtration Rate , Glucose Level 339H, Uric Acid 3.0, Calcium Level 9.1, Phosphorus Level 2.2L, Magnesium Level 1.9, Total Bilirubin 2.1H, Direct Bilirubin 1.1H, Aspartate Amino Transf (AST/SGOT) 38H, Alanine Aminotransferase (ALT/SGPT) 6L, Alkaline Phosphatase 199H, Pro-B-Type Natriuretic Peptide 61149G , Total Protein 6.1L, Albumin 1.7L, Globulin 4.4, Albumin/Globulin Ratio 0.4L 02/07/17 12:30: Arterial Blood pH 7.425, Arterial Blood Partial Pressure CO2 50.8H, Arterial Blood Partial Pressure O2 66.5L, Arterial Blood HCO3 32.6H, Arterial Blood Oxygen Saturation 93.0, Arterial Blood Base Excess 7.1, Bon Test Positive Height (Feet): 5 Height (Inches): 6.00 Weight (Pounds): 283 General Appearance: no apparent distress Cardiovascular: normal rate Respiratory/Chest: decreased breath sounds Abdomen: distended Objective no other change ANDERS MOLINA Feb 07, 2017 14:22
[2017-02-07 14:45] LABS: INR 1.4 (0.9-1.1)
[2017-02-07] MEDS ORDERED: Potassium Phosphate 20 MM in NS 275 ML IV ONE (15:30)
--- NOTE | 2017-02-07 17:23 | General Progress Note ---
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 - hypernatremia - maybe worse due to diarrhea Recommendations - continue off of lactulose - continue Xifaxan - Continue TF - follow labs - HD/lytes per Renal - free water - await trach - will need PEG to follow Subjective Allergies: Coded Allergies: PENICILLINS (Unverified Allergy, Unknown, 03/22/15) Subjective above noted d/w RN tolerating TF less diarrhea off of lactulose Objective Last 24 Hour Vital Signs Date Time Temp Pulse Resp B/P (MAP) Pulse Ox O2 Delivery O2 Flow Rate FiO2 02/07/17 17:08 84 20 50 02/07/17 17:00 80 19 113/60 98 Mechanical Ventilator 50 02/07/17 16:00 61 02/07/17 16:00 50 02/07/17 16:00 99.5 84 19 104/39 97 Mechanical Ventilator 50 02/07/17 15:39 68 20 50 02/07/17 15:00 69 20 100/49 100 Mechanical Ventilator 50 02/07/17 14:00 63 22 91/33 97 Mechanical Ventilator 50 02/07/17 13:28 71 20 50 02/07/17 13:00 65 20 92/39 99 Mechanical Ventilator 50 02/07/17 12:00 105 02/07/17 12:00 98.7 85 20 124/73 97 Mechanical Ventilator 50 02/07/17 12:00 50 02/07/17 11:15 98/40 02/07/17 11:07 69 20 50 02/07/17 11:00 76 20 124/73 100 Mechanical Ventilator 50 02/07/17 10:06 66 20 97 Mechanical Ventilator 50 02/07/17 10:00 68 20 98/40 100 Mechanical Ventilator 50 02/07/17 09:54 61 20 100 Mechanical Ventilator 50 02/07/17 09:35 73 20 50 02/07/17 09:00 72 20 95/42 97 Mechanical Ventilator 60 02/07/17 08:00 60 02/07/17 08:00 69 02/07/17 08:00 98.9 68 20 115/48 99 Mechanical Ventilator 60 02/07/17 07:41 63 20 60 02/07/17 07:00 67 20 128/45 98 Mechanical Ventilator 60 02/07/17 06:00 70 20 110/50 100 Mechanical Ventilator 60 02/07/17 05:17 78 20 60 02/07/17 05:00 76 20 104/52 100 Mechanical Ventilator 60 02/07/17 04:00 98.6 72 20 109/65 100 Mechanical Ventilator 60 02/07/17 04:00 60 02/07/17 04:00 72 02/07/17 03:00 91 20 129/77 100 Mechanical Ventilator 60 02/07/17 02:53 86 20 60 02/07/17 02:00 86 20 130/94 99 Mechanical Ventilator 60 02/07/17 01:10 81 20 60 02/07/17 01:00 73 20 87/60 100 Mechanical Ventilator 60 02/07/17 00:00 77 02/07/17 00:00 60 02/07/17 00:00 98.4 78 20 103/38 100 Mechanical Ventilator 60 02/06/17 23:00 78 20 100/50 99 Mechanical Ventilator 60 02/06/17 23:00 84 20 60 02/06/17 22:00 79 20 88/42 99 Mechanical Ventilator 60 02/06/17 21:43 73 20 98 Mechanical Ventilator 60 02/06/17 21:38 83 20 100 Mechanical Ventilator 60 02/06/17 21:38 82 20 Mechanical Ventilator 02/06/17 21:28 83 20 60 02/06/17 21:00 83 19 100/43 98 Mechanical Ventilator 60 02/06/17 20:00 91 02/06/17 20:00 98.6 91 21 94/38 98 Mechanical Ventilator 60 02/06/17 19:01 94 21 60 02/06/17 19:00 92 20 126/44 100 Mechanical Ventilator 60 02/06/17 18:00 74 20 103/49 100 Mechanical Ventilator 60 Intake and Output 02/07/17 02/08/17 19:00 07:00 Intake Total 380 ml Output Total 0 ml Balance 380 ml Free Water 30 ml Tube Feeding 350 ml Output Urine Total 0 ml Laboratory Tests 02/06/17 20:41: Random Vancomycin Level 24.7 02/07/17 03:10: White Blood Count 13.8H, Red Blood Count 3.28L, Hemoglobin 10.2L, Hematocrit 32.5L, Mean Corpuscular Volume 99, Mean Corpuscular Hemoglobin 31.2H, Mean Corpuscular Hemoglobin Concent 31.5L, Red Cell Distribution Width 18.4H, Platelet Count 93L, Mean Platelet Volume 9.8, Neutrophils (%) (Auto) , Lymphocytes (%) (Auto) , Monocytes (%) (Auto) , Eosinophils (%) (Auto) , Basophils (%) (Auto) , Differential Total Cells Counted 100, Neutrophils % ( Manual) 82H, Lymphocytes % (Manual) 11L, Monocytes % (Manual) 3, Eosinophils % ( Manual) 4H, Basophils % (Manual) 0, Band Neutrophils 0, Platelet Estimate DecreasedL, Platelet Morphology Normal, Anisocytosis 1+, Stomatocytes 1+, Sodium Level 149H, Potassium Level 3.2L, Chloride Level 109H, Carbon Dioxide Level 32, Anion Gap 8, Blood Urea Nitrogen 32H, Creatinine 3.9H, Estimat Glomerular Filtration Rate , Glucose Level 339H, Uric Acid 3.0, Calcium Level 9.1, Phosphorus Level 2.2L, Magnesium Level 1.9, Total Bilirubin 2.1H, Direct Bilirubin 1.1H, Aspartate Amino Transf (AST/SGOT) 38H, Alanine Aminotransferase (ALT/SGPT) 6L, Alkaline Phosphatase 199H, Pro-B-Type Natriuretic Peptide 65956U , Total Protein 6.1L, Albumin 1.7L, Globulin 4.4, Albumin/Globulin Ratio 0.4L 02/07/17 12:30: Arterial Blood pH 7.425, Arterial Blood Partial Pressure CO2 50.8H, Arterial Blood Partial Pressure O2 66.5L, Arterial Blood HCO3 32.6H, Arterial Blood Oxygen Saturation 93.0, Arterial Blood Base Excess 7.1, Bon Test Positive 02/07/17 14:00: Prothrombin Time 15.0H, Prothromb Time International Ratio 1.4H, Activated Partial Thromboplast Time 35H Height (Feet): 5 Height (Inches): 6.00 Weight (Pounds): 283 Objective Obese WW NCAT, (+) ETT and NGT supple CTA RRR soft ND NT (+) edema confused KIERSTEN DAVIES Feb 07, 2017 17:23
[2017-02-07] MEDS: Dyna-Hex 2% Top Sol 2oz TOPIC SCH (20:08)
[2017-02-07] MEDS: Ertapenem 0.5 GM in NS 55 ML IVPB SCH (21:12)
--- NOTE | 2017-02-07 23:06 | General Progress Note ---
Assessment/Plan Status: unchanged Assessment/Plan encephalopathy Subjective Neurologic/Psychiatric: Reports: anxiety, depressed, emotional problems Allergies: Coded Allergies: PENICILLINS (Unverified Allergy, Unknown, 03/22/15) Subjective waxing and waning of consciousness.agitated at times unchanged since previous encounter Objective Last 24 Hour Vital Signs Date Time Temp Pulse Resp B/P (MAP) Pulse Ox O2 Delivery O2 Flow Rate FiO2 02/07/17 22:16 67 20 100 Mechanical Ventilator 50 02/07/17 22:05 65 20 100 Mechanical Ventilator 50 02/07/17 20:49 70 20 50 02/07/17 20:00 50 02/07/17 19:00 98.8 62 20 110/52 100 Mechanical Ventilator 50 02/07/17 18:56 62 20 50 02/07/17 18:00 71 20 105/42 100 Mechanical Ventilator 50 02/07/17 17:08 84 20 50 02/07/17 17:00 80 19 113/60 98 Mechanical Ventilator 50 02/07/17 16:00 61 02/07/17 16:00 50 02/07/17 16:00 99.5 84 19 104/39 97 Mechanical Ventilator 50 02/07/17 15:39 68 20 50 02/07/17 15:00 69 20 100/49 100 Mechanical Ventilator 50 02/07/17 14:00 63 22 91/33 97 Mechanical Ventilator 50 02/07/17 13:28 71 20 50 02/07/17 13:00 65 20 92/39 99 Mechanical Ventilator 50 02/07/17 12:00 105 02/07/17 12:00 98.7 85 20 124/73 97 Mechanical Ventilator 50 02/07/17 12:00 50 02/07/17 11:15 98/40 02/07/17 11:07 69 20 50 02/07/17 11:00 76 20 124/73 100 Mechanical Ventilator 50 02/07/17 10:06 66 20 97 Mechanical Ventilator 50 02/07/17 10:00 68 20 98/40 100 Mechanical Ventilator 50 02/07/17 09:54 61 20 100 Mechanical Ventilator 50 02/07/17 09:35 73 20 50 02/07/17 09:00 72 20 95/42 97 Mechanical Ventilator 60 02/07/17 08:00 60 02/07/17 08:00 69 02/07/17 08:00 98.9 68 20 115/48 99 Mechanical Ventilator 60 02/07/17 07:41 63 20 60 02/07/17 07:00 67 20 128/45 98 Mechanical Ventilator 60 02/07/17 06:00 70 20 110/50 100 Mechanical Ventilator 60 02/07/17 05:17 78 20 60 02/07/17 05:00 76 20 104/52 100 Mechanical Ventilator 60 02/07/17 04:00 98.6 72 20 109/65 100 Mechanical Ventilator 60 02/07/17 04:00 60 02/07/17 04:00 72 02/07/17 03:00 91 20 129/77 100 Mechanical Ventilator 60 02/07/17 02:53 86 20 60 02/07/17 02:00 86 20 130/94 99 Mechanical Ventilator 60 02/07/17 01:10 81 20 60 02/07/17 01:00 73 20 87/60 100 Mechanical Ventilator 60 02/07/17 00:00 77 02/07/17 00:00 60 02/07/17 00:00 98.4 78 20 103/38 100 Mechanical Ventilator 60 Intake and Output 02/07/17 02/08/17 19:00 07:00 Intake Total 543.888 ml Output Total 0 ml Balance 543.888 ml Free Water 30 ml IV Total 93.888 ml Tube Feeding 420 ml Output Urine Total 0 ml # Bowel Movements 75 Laboratory Tests 02/07/17 03:10: White Blood Count 13.8H, Red Blood Count 3.28L, Hemoglobin 10.2L, Hematocrit 32.5L, Mean Corpuscular Volume 99, Mean Corpuscular Hemoglobin 31.2H, Mean Corpuscular Hemoglobin Concent 31.5L, Red Cell Distribution Width 18.4H, Platelet Count 93L, Mean Platelet Volume 9.8, Neutrophils (%) (Auto) , Lymphocytes (%) (Auto) , Monocytes (%) (Auto) , Eosinophils (%) (Auto) , Basophils (%) (Auto) , Differential Total Cells Counted 100, Neutrophils % ( Manual) 82H, Lymphocytes % (Manual) 11L, Monocytes % (Manual) 3, Eosinophils % ( Manual) 4H, Basophils % (Manual) 0, Band Neutrophils 0, Platelet Estimate DecreasedL, Platelet Morphology Normal, Anisocytosis 1+, Stomatocytes 1+, Sodium Level 149H, Potassium Level 3.2L, Chloride Level 109H, Carbon Dioxide Level 32, Anion Gap 8, Blood Urea Nitrogen 32H, Creatinine 3.9H, Estimat Glomerular Filtration Rate , Glucose Level 339H, Uric Acid 3.0, Calcium Level 9.1, Phosphorus Level 2.2L, Magnesium Level 1.9, Total Bilirubin 2.1H, Direct Bilirubin 1.1H, Aspartate Amino Transf (AST/SGOT) 38H, Alanine Aminotransferase (ALT/SGPT) 6L, Alkaline Phosphatase 199H, Pro-B-Type Natriuretic Peptide 13669U , Total Protein 6.1L, Albumin 1.7L, Globulin 4.4, Albumin/Globulin Ratio 0.4L 02/07/17 12:30: Arterial Blood pH 7.425, Arterial Blood Partial Pressure CO2 50.8H, Arterial Blood Partial Pressure O2 66.5L, Arterial Blood HCO3 32.6H, Arterial Blood Oxygen Saturation 93.0, Arterial Blood Base Excess 7.1, Bon Test Positive 02/07/17 14:00: Prothrombin Time 15.0H, Prothromb Time International Ratio 1.4H, Activated Partial Thromboplast Time 35H Height (Feet): 5 Height (Inches): 6.00 Weight (Pounds): 283 General Appearance: no apparent distress, lethargic, confused, morbidly obese Neurologic: disoriented, unresponsive Oj Medel M.D. Feb 07, 2017 23:06
[2017-02-08] VITALS (24 sets, daily range): BP systolic 83–120; BP diastolic 34–93
[2017-02-08] MEDS: NovoLOG Insulin Flexpen SUBQ SCH ×6 (01:02→20:57)
[2017-02-08] MEDS: Morphine Sulfate 2mg/ml Inj IVP PRN (03:56)
[2017-02-08 05:54] LABS: HEMATOCRIT 32.9 % (37.0-47.0); MEAN CORPUSCULAR VOLUME 98 FL (80-99); PLATELET COUNT 93 K/UL (150-450); RED BLOOD COUNT 3.36 M/UL (4.20-5.40); RED CELL DISTRIBUTION WIDTH 17.7 % (11.6-14.8); WHITE BLOOD COUNT 12.4 K/UL (4.8-10.8)
[2017-02-08 06:21] LABS: PHOSPHORUS 3.2 MG/DL (2.5-4.9)
[2017-02-08 06:30] LABS: ALANINE AMINOTRANSFERASE 6 U/L (12-78); ALBUMIN 1.7 G/DL (3.4-5.0); ALBUMIN/GLOBULIN RATIO 0.4 (1.0-2.7); ALKALINE PHOSPHATASE 206 U/L (46-116); ANION GAP 6 mmol/L (5-15); ASPARTATE AMINO TRANSFERASE 47 U/L (15-37); BILIRUBIN,TOTAL 1.7 MG/DL (0.2-1.0); BLOOD UREA NITROGEN 40 mg/dL (7-18); CALCIUM 9.6 MG/DL (8.5-10.1); CARBON DIOXIDE 33 MMOL/L (21-32); CHLORIDE 109 MMOL/L (98-107); CREATININE 4.6 MG/DL (0.55-1.30); POTASSIUM 3.4 MMOL/L (3.5-5.1); SODIUM 148 MMOL/L (136-145)
[2017-02-08] MEDS: Midodrine 10mg tab NG SCH ×3 (06:46→22:00)
[2017-02-08] MEDS ORDERED: Tubing IV Secondary IV ONE (08:42)
[2017-02-08] MEDS ORDERED: NS 275ml ONE (08:42)
[2017-02-08 09:00] LABS: BILIRUBIN,DIRECT 0.9 MG/DL (0.0-0.3)
[2017-02-08] MEDS: Nystatin Powder 100,000 units/gm 15gm TOPIC SCH ×3 (09:03→17:57)
[2017-02-08] MEDS: Vancomycin oral 125mg/2.5ml NG SCH ×2 (09:08→17:57)
--- NOTE | 2017-02-08 09:45 | Infectious Diseases Prog Note ---
Assessment/Plan Assessment/Plan A: New sepsis Pneumonia with Acinetobacter treated MRSA sepsis UTI Altered mental status Cirrhosis Anemia & thrombocytopenia DM type 2 Morbid obesity ESRD on HD P: Continue Vancomycin & Ertapenem Waiting for tracheostomy Subjective Neurologic: Reports: confusion, other - on restraint Allergies: Coded Allergies: PENICILLINS (Unverified Allergy, Unknown, 03/22/15) Objective Vital Signs Last 24 Hour Vital Signs Date Time Temp Pulse Resp B/P (MAP) Pulse Ox O2 Delivery O2 Flow Rate FiO2 02/08/17 09:25 87 20 50 02/08/17 09:00 84 20 108/36 100 Mechanical Ventilator 50 02/08/17 08:00 50 02/08/17 08:00 83 02/08/17 08:00 98.7 73 20 109/43 97 Mechanical Ventilator 50 02/08/17 07:13 72 20 50 02/08/17 07:00 59 20 91/39 100 Mechanical Ventilator 50 02/08/17 06:00 56 20 83/34 100 Mechanical Ventilator 50 02/08/17 05:06 69 20 50 02/08/17 05:00 79 20 88/36 100 Mechanical Ventilator 50 02/08/17 04:00 99 02/08/17 04:00 99 20 109/44 97 Mechanical Ventilator 50 02/08/17 04:00 50 02/08/17 03:06 97 19 50 02/08/17 03:00 101 21 115/58 96 Mechanical Ventilator 50 02/08/17 02:00 102 20 111/61 98 Mechanical Ventilator 50 02/08/17 01:18 98 22 50 02/08/17 01:00 100 20 96/81 100 Mechanical Ventilator 50 02/08/17 00:00 98.1 84 20 90/61 100 Mechanical Ventilator 50 02/08/17 00:00 65 02/07/17 23:07 78 20 50 02/07/17 23:00 72 20 102/44 100 Mechanical Ventilator 50 02/07/17 22:16 67 20 100 Mechanical Ventilator 50 02/07/17 22:05 65 20 100 Mechanical Ventilator 50 02/07/17 22:00 64 20 111/46 100 Mechanical Ventilator 50 02/07/17 21:00 65 20 105/43 100 Mechanical Ventilator 50 02/07/17 20:49 70 20 50 02/07/17 20:00 50 02/07/17 20:00 70 20 111/44 100 Mechanical Ventilator 50 02/07/17 20:00 75 02/07/17 19:00 98.8 62 20 110/52 100 Mechanical Ventilator 50 02/07/17 18:56 62 20 50 02/07/17 18:00 71 20 105/42 100 Mechanical Ventilator 50 02/07/17 17:08 84 20 50 02/07/17 17:00 80 19 113/60 98 Mechanical Ventilator 50 02/07/17 16:00 61 02/07/17 16:00 50 02/07/17 16:00 99.5 84 19 104/39 97 Mechanical Ventilator 50 02/07/17 15:39 68 20 50 02/07/17 15:00 69 20 100/49 100 Mechanical Ventilator 50 02/07/17 14:00 63 22 91/33 97 Mechanical Ventilator 50 02/07/17 13:28 71 20 50 02/07/17 13:00 65 20 92/39 99 Mechanical Ventilator 50 02/07/17 12:00 105 02/07/17 12:00 98.7 85 20 124/73 97 Mechanical Ventilator 50 02/07/17 12:00 50 02/07/17 11:15 98/40 02/07/17 11:07 69 20 50 02/07/17 11:00 76 20 124/73 100 Mechanical Ventilator 50 02/07/17 10:06 66 20 97 Mechanical Ventilator 50 02/07/17 10:00 68 20 98/40 100 Mechanical Ventilator 50 02/07/17 09:54 61 20 100 Mechanical Ventilator 50 Height (Feet): 5 Height (Inches): 6.00 Weight (Pounds): 261 General Appearance: other - obese HEENT: other - orally intubated Respiratory/Chest: lungs clear, other - on ventilator Cardiovascular: normal rate, other - RIJ HD line Abdomen: soft, non tender, other - NG & rectal tubes Extremities: other - edema Neurologic/Psychiatric: disoriented Microbiology Date/Time Source Procedure Growth Status 02/05/17 20:35 Blood Blood Culture - Preliminary NO GROWTH AFTER 48 HOURS Resulted 02/05/17 20:20 Blood Blood Culture - Preliminary NO GROWTH AFTER 48 HOURS Resulted 02/06/17 10:40 Sputum Gram Stain - Final Complete 02/06/17 10:40 Sputum Culture - Final Colleen Albicans Complete Laboratory Tests Test 02/07/17 12:30 02/07/17 14:00 02/08/17 04:00 Arterial Blood pH 7.425 (7.350-7.450) Arterial Blood Partial Pressure CO2 50.8 mmHg (35.0-45.0) H Arterial Blood Partial Pressure O2 66.5 mmHg (75.0-100.0) L Arterial Blood HCO3 32.6 mmol/L (22.0-26.0) H Arterial Blood Oxygen Saturation 93.0 % (92.0-98.0) Arterial Blood Base Excess 7.1 Bon Test Positive Prothrombin Time 15.0 SEC (9.30-11.50) H Prothromb Time International Ratio 1.4 (0.9-1.1) H Activated Partial Thromboplast Time 35 SEC (23-33) H White Blood Count 12.4 K/UL (4.8-10.8) H Red Blood Count 3.36 M/UL (4.20-5.40) L Hemoglobin 10.0 G/DL (12.0-16.0) L Hematocrit 32.9 % (37.0-47.0) L Mean Corpuscular Volume 98 FL (80-99) Mean Corpuscular Hemoglobin 29.8 PG (27.0-31.0) Mean Corpuscular Hemoglobin Concent 30.4 G/DL (32.0-36.0) L Red Cell Distribution Width 17.7 % (11.6-14.8) H Platelet Count 93 K/UL (150-450) L Mean Platelet Volume 9.4 FL (6.5-10.1) Neutrophils (%) (Auto) % (45.0-75.0) Lymphocytes (%) (Auto) % (20.0-45.0) Monocytes (%) (Auto) % (1.0-10.0) Eosinophils (%) (Auto) % (0.0-3.0) Basophils (%) (Auto) % (0.0-2.0) Neutrophils % (Manual) Pending Lymphocytes % (Manual) Pending Platelet Estimate Pending Platelet Morphology Pending Sodium Level 148 MMOL/L (136-145) H Potassium Level 3.4 MMOL/L (3.5-5.1) L Chloride Level 109 MMOL/L (98-107) H Carbon Dioxide Level 33 MMOL/L (21-32) H Anion Gap 6 mmol/L (5-15) Blood Urea Nitrogen 40 mg/dL (7-18) H Creatinine 4.6 MG/DL (0.55-1.30) H Estimat Glomerular Filtration Rate mL/min (>60) Glucose Level 270 MG/DL (74-106) H Uric Acid 3.6 MG/DL (2.6-7.2) Calcium Level 9.6 MG/DL (8.5-10.1) Phosphorus Level 3.2 MG/DL (2.5-4.9) Magnesium Level 1.9 MG/DL (1.8-2.4) Total Bilirubin 1.7 MG/DL (0.2-1.0) H Direct Bilirubin 0.9 MG/DL (0.0-0.3) H Aspartate Amino Transf (AST/SGOT) 47 U/L (15-37) H Alanine Aminotransferase (ALT/SGPT) 6 U/L (12-78) L Alkaline Phosphatase 206 U/L (46-116) H C-Reactive Protein, Quantitative 23.9 mg/dL (0.00-0.90) H Pro-B-Type Natriuretic Peptide Pending Total Protein 6.0 G/DL (6.4-8.2) L Albumin 1.7 G/DL (3.4-5.0) L Globulin 4.3 g/dL Albumin/Globulin Ratio 0.4 (1.0-2.7) L Random Vancomycin Level 23.6 ug/mL Current Medications Medications (Trade) Dose Ordered Sig/Pavel Route PRN Reason Start Time Stop Time Status Last Admin Dose Admin Acetaminophen (Tylenol) 650 mg Q4H PRN ORAL T>100.5 01/21/17 14:30 02/15/17 14:29 02/05/17 07:41 Chlorhexidine Gluconate (Dianne-Hex 2%) 1 applic DAILY@1999 TOPIC 01/25/17 20:00 02/24/17 19:59 02/07/17 20:08 Clotrimazole (Lotrimin) 1 applic EVERY 12 HOURS TOPIC 01/21/17 21:00 02/18/17 13:59 02/08/17 09:03 Dextrose (Dextrose 50%) STAT PRN IV Hypoglycemia 02/06/17 10:45 03/08/17 10:44 Dopamine HCl/ Dextrose 250 ml @ 0 mls/hr Q24H IV 01/25/17 11:15 02/24/17 11:14 01/30/17 10:30 Ertapenem 0.5 gm/ Sodium Chloride 55 ml @ 110 mls/hr Q24H IVPB 02/02/17 21:00 02/11/17 20:59 02/07/17 21:12 Insulin Aspart (NovoLOG) EVERY 4 HOURS SUBQ 02/06/17 12:00 03/08/17 11:59 02/08/17 09:07 Metoclopramide HCl (Reglan) 5 mg Q8H PRN IVP Nausea & Vomiting 01/29/17 11:30 02/28/17 11:29 01/31/17 11:46 Midodrine (Pro-Amatine) 10 mg Q8HR NG 02/03/17 14:00 03/05/17 13:59 02/08/17 06:46 Morphine Sulfate (Morphine Sulfate) 2 mg Q4H PRN IVP PAIN 4-10 02/05/17 20:30 02/12/17 20:29 02/08/17 03:56 Nitroglycerin (Ntg) 0.4 mg Q5MIN X 3 DOSES PRN SL Prn Chest Pain 01/21/17 14:30 02/15/17 14:29 Nystatin (Nystop Powder) 1 applic THREE TIMES A DAY TOPIC 01/22/17 13:00 02/21/17 12:59 02/08/17 09:03 Ranitidine HCl (Zantac) 150 mg DAILY NG 02/03/17 18:00 03/05/17 17:59 02/08/17 09:03 Rifaximin (Xifaxan) 550 mg EVERY 12 HOURS ORAL 01/29/17 12:00 03/07/17 11:59 02/08/17 09:03 Vancomycin HCl (Vanco rx to dose) 1 ea DAILY PRN MISC Per rx protocol 02/05/17 19:15 03/07/17 19:14 Vancomycin HCl (Vancomycin) 125 mg BID NG 02/02/17 16:00 02/09/17 15:59 02/08/17 09:08 SUMMER BYRNES Feb 08, 2017 09:45
[2017-02-08] MEDS: HYDROmorphone 1mg/ml Carpuject IVP PRN (10:57)
[2017-02-08] MEDS ORDERED: KCl 10% 20 mEq/15ml liquid NG ONE (11:00)
--- NOTE | 2017-02-08 11:04 | General Progress Note ---
Assessment/Plan Status: stable Assessment/Plan Acute on chronic renal failure- multifactorial CHF DM HTN Sepsis Now: Acute respiratory failure- Intubated - Altered level of consciousness - ESBL (extended spectrum beta-lactamase) producing bacteria infection - Cardiomegaly - DM (diabetes mellitus) - HTN (hypertension) - UTI (urinary tract infection) - Anemia - High Cholestrol - COPD - YELENA - Fatty liver Plan: due trach 02/10 D5w 500 cc K & Phos supplement as needed On midodrine dialysis 02/06 done next 02/09 Transfuse as needed, one unit 02/04 Optimize cardiac and pulmonary status 2D echo results noted avoid nephrotoxics monitor renal parameters Urine studies per orders poor prognosis Subjective ROS Limited/Unobtainable: Yes Allergies: Coded Allergies: PENICILLINS (Unverified Allergy, Unknown, 03/22/15) Objective Last 24 Hour Vital Signs Date Time Temp Pulse Resp B/P (MAP) Pulse Ox O2 Delivery O2 Flow Rate FiO2 02/08/17 10:00 84 19 120/93 96 Mechanical Ventilator 50 02/08/17 09:25 87 20 50 02/08/17 09:00 84 20 108/36 100 Mechanical Ventilator 50 02/08/17 08:00 50 02/08/17 08:00 83 02/08/17 08:00 98.7 73 20 109/43 97 Mechanical Ventilator 50 02/08/17 07:13 72 20 50 02/08/17 07:00 59 20 91/39 100 Mechanical Ventilator 50 02/08/17 06:00 56 20 83/34 100 Mechanical Ventilator 50 02/08/17 05:06 69 20 50 02/08/17 05:00 79 20 88/36 100 Mechanical Ventilator 50 02/08/17 04:00 99 02/08/17 04:00 99 20 109/44 97 Mechanical Ventilator 50 02/08/17 04:00 50 02/08/17 03:06 97 19 50 02/08/17 03:00 101 21 115/58 96 Mechanical Ventilator 50 02/08/17 02:00 102 20 111/61 98 Mechanical Ventilator 50 02/08/17 01:18 98 22 50 02/08/17 01:00 100 20 96/81 100 Mechanical Ventilator 50 02/08/17 00:00 98.1 84 20 90/61 100 Mechanical Ventilator 50 02/08/17 00:00 65 02/07/17 23:07 78 20 50 02/07/17 23:00 72 20 102/44 100 Mechanical Ventilator 50 02/07/17 22:16 67 20 100 Mechanical Ventilator 50 02/07/17 22:05 65 20 100 Mechanical Ventilator 50 02/07/17 22:00 64 20 111/46 100 Mechanical Ventilator 50 02/07/17 21:00 65 20 105/43 100 Mechanical Ventilator 50 02/07/17 20:49 70 20 50 02/07/17 20:00 50 02/07/17 20:00 70 20 111/44 100 Mechanical Ventilator 50 02/07/17 20:00 75 02/07/17 19:00 98.8 62 20 110/52 100 Mechanical Ventilator 50 02/07/17 18:56 62 20 50 02/07/17 18:00 71 20 105/42 100 Mechanical Ventilator 50 02/07/17 17:08 84 20 50 02/07/17 17:00 80 19 113/60 98 Mechanical Ventilator 50 02/07/17 16:00 61 02/07/17 16:00 50 02/07/17 16:00 99.5 84 19 104/39 97 Mechanical Ventilator 50 02/07/17 15:39 68 20 50 02/07/17 15:00 69 20 100/49 100 Mechanical Ventilator 50 02/07/17 14:00 63 22 91/33 97 Mechanical Ventilator 50 02/07/17 13:28 71 20 50 02/07/17 13:00 65 20 92/39 99 Mechanical Ventilator 50 02/07/17 12:00 105 02/07/17 12:00 98.7 85 20 124/73 97 Mechanical Ventilator 50 02/07/17 12:00 50 02/07/17 11:15 98/40 02/07/17 11:07 69 20 50 Intake and Output 02/08/17 02/09/17 19:00 07:00 Intake Total 155 ml Output Total 0 ml Balance 155 ml Free Water 50 ml Tube Feeding 105 ml Output Urine Total 0 ml Laboratory Tests 02/07/17 12:30: Arterial Blood pH 7.425, Arterial Blood Partial Pressure CO2 50.8H, Arterial Blood Partial Pressure O2 66.5L, Arterial Blood HCO3 32.6H, Arterial Blood Oxygen Saturation 93.0, Arterial Blood Base Excess 7.1, Bon Test Positive 02/07/17 14:00: Prothrombin Time 15.0H, Prothromb Time International Ratio 1.4H, Activated Partial Thromboplast Time 35H 02/08/17 04:00: White Blood Count 12.4H, Red Blood Count 3.36L, Hemoglobin 10.0L, Hematocrit 32.9L, Mean Corpuscular Volume 98, Mean Corpuscular Hemoglobin 29.8, Mean Corpuscular Hemoglobin Concent 30.4L, Red Cell Distribution Width 17.7H, Platelet Count 93L, Mean Platelet Volume 9.4, Neutrophils (%) (Auto) , Lymphocytes (%) (Auto) , Monocytes (%) (Auto) , Eosinophils (%) (Auto) , Basophils (%) (Auto) , Neutrophils % (Manual) [Pending], Lymphocytes % (Manual) [Pending], Platelet Estimate [Pending], Platelet Morphology [Pending], Sodium Level 148H, Potassium Level 3.4L, Chloride Level 109H, Carbon Dioxide Level 33H , Anion Gap 6, Blood Urea Nitrogen 40H, Creatinine 4.6H, Estimat Glomerular Filtration Rate , Glucose Level 270H, Uric Acid 3.6, Calcium Level 9.6, Phosphorus Level 3.2, Magnesium Level 1.9, Total Bilirubin 1.7H, Direct Bilirubin 0.9H, Aspartate Amino Transf (AST/SGOT) 47H, Alanine Aminotransferase (ALT/SGPT) 6L, Alkaline Phosphatase 206H, C-Reactive Protein, Quantitative 23.9H , Pro-B-Type Natriuretic Peptide 03964A, Total Protein 6.0L, Albumin 1.7L, Globulin 4.3, Albumin/Globulin Ratio 0.4L, Random Vancomycin Level 23.6 Height (Feet): 5 Height (Inches): 6.00 Weight (Pounds): 261 General Appearance: no apparent distress Cardiovascular: normal rate Respiratory/Chest: decreased breath sounds Abdomen: soft Edema: 2+ Arm (L), 2+ Arm (R), 2+ Leg (L), 2+ Leg (R), 2+ Pedal (L), 2+ Pedal ( R), 2+ Generalized Objective no other change ANDERS MOLINA Feb 08, 2017 11:04
[2017-02-08] MEDS: DOPamine 400mg/250ml 250 ML IV SCH (11:15)
--- NOTE | 2017-02-08 11:27 | Pulmonolgy Critical Care Note ---
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 Respiratory: monitor respiratory rate, adjust FIO2 Cardiac: continue to monitor HR/BP Renal: F/U I&O, keep IV fluid Infectious Disease: continue antibiotics Gastrointestinal: continue feedings/current rate, hold feedings Endocrine: check TSH, check HgA1C, continue sliding scale insulin Hematologic: transfuse if hgb<8.5 Neurologic: PRN Ativan, keep patient comfortable Affect: PRN ativan Prophylaxis: Protonix Notes Reviewed: 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 waste 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 technician, cardio, renal Discussed with: nurses, consultants, case monitormortuary operations manager - Objective Last 24 Hour Vital Signs Date Time Temp Pulse Resp B/P (MAP) Pulse Ox O2 Delivery O2 Flow Rate FiO2 02/08/17 11:00 65 20 95/59 97 Mechanical Ventilator 50 02/08/17 10:00 84 19 120/93 96 Mechanical Ventilator 50 02/08/17 09:25 87 20 50 02/08/17 09:00 84 20 108/36 100 Mechanical Ventilator 50 02/08/17 08:00 50 02/08/17 08:00 83 02/08/17 08:00 98.7 73 20 109/43 97 Mechanical Ventilator 50 02/08/17 07:13 72 20 50 02/08/17 07:00 59 20 91/39 100 Mechanical Ventilator 50 02/08/17 06:00 56 20 83/34 100 Mechanical Ventilator 50 02/08/17 05:06 69 20 50 02/08/17 05:00 79 20 88/36 100 Mechanical Ventilator 50 02/08/17 04:00 99 02/08/17 04:00 99 20 109/44 97 Mechanical Ventilator 50 02/08/17 04:00 50 02/08/17 03:06 97 19 50 02/08/17 03:00 101 21 115/58 96 Mechanical Ventilator 50 02/08/17 02:00 102 20 111/61 98 Mechanical Ventilator 50 02/08/17 01:18 98 22 50 02/08/17 01:00 100 20 96/81 100 Mechanical Ventilator 50 02/08/17 00:00 98.1 84 20 90/61 100 Mechanical Ventilator 50 02/08/17 00:00 65 02/07/17 23:07 78 20 50 02/07/17 23:00 72 20 102/44 100 Mechanical Ventilator 50 02/07/17 22:16 67 20 100 Mechanical Ventilator 50 02/07/17 22:05 65 20 100 Mechanical Ventilator 50 02/07/17 22:00 64 20 111/46 100 Mechanical Ventilator 50 02/07/17 21:00 65 20 105/43 100 Mechanical Ventilator 50 02/07/17 20:49 70 20 50 02/07/17 20:00 50 02/07/17 20:00 70 20 111/44 100 Mechanical Ventilator 50 02/07/17 20:00 75 02/07/17 19:00 98.8 62 20 110/52 100 Mechanical Ventilator 50 02/07/17 18:56 62 20 50 02/07/17 18:00 71 20 105/42 100 Mechanical Ventilator 50 02/07/17 17:08 84 20 50 02/07/17 17:00 80 19 113/60 98 Mechanical Ventilator 50 02/07/17 16:00 61 02/07/17 16:00 50 02/07/17 16:00 99.5 84 19 104/39 97 Mechanical Ventilator 50 02/07/17 15:39 68 20 50 02/07/17 15:00 69 20 100/49 100 Mechanical Ventilator 50 02/07/17 14:00 63 22 91/33 97 Mechanical Ventilator 50 02/07/17 13:28 71 20 50 02/07/17 13:00 65 20 92/39 99 Mechanical Ventilator 50 02/07/17 12:00 105 02/07/17 12:00 98.7 85 20 124/73 97 Mechanical Ventilator 50 02/07/17 12:00 50 Status: awake Condition: critical Neck: full ROM Lungs: chest wall tender Heart: HR/BP unstable, regular Abdomen: soft, active bowel sounds, feeding tube Extremities: edema Decubiti: stage Micro: Microbiology Date/Time Source Procedure Growth Status 02/05/17 20:35 Blood Blood Culture - Preliminary NO GROWTH AFTER 48 HOURS Resulted 02/05/17 20:20 Blood Blood Culture - Preliminary NO GROWTH AFTER 48 HOURS Resulted 02/06/17 10:40 Sputum Gram Stain - Final Complete 02/06/17 10:40 Sputum Culture - Final Colleen Albicans Complete Accucheck: 249 Critical Care - Subjective ROS Limited/Unobtainable: Yes ICU Day: 18 Intubation Day: 18 EKG Rhythm: Sinus Bradycardia FI02: 50 Vent Support Breath Rate: 20 Vent Support Mode: AC Vent Tidal Volume: 650 Sputum Amount: Scant PEEP: 0.0 PIP: 55 Tube Feeding Amount: 35 I&O: Intake and Output 02/08/17 02/09/17 19:00 07:00 Intake Total 240 ml Output Total 0 ml Balance 240 ml Free Water 50 ml Tube Feeding 140 ml Other 50 ml Output Urine Total 0 ml CXR: no change ET-Tube: 7.0 ET Position: 20 Labs: Laboratory Tests Test 02/07/17 12:30 02/07/17 14:00 02/08/17 04:00 Arterial Blood pH 7.425 (7.350-7.450) Arterial Blood Partial Pressure CO2 50.8 mmHg (35.0-45.0) H Arterial Blood Partial Pressure O2 66.5 mmHg (75.0-100.0) L Arterial Blood HCO3 32.6 mmol/L (22.0-26.0) H Arterial Blood Oxygen Saturation 93.0 % (92.0-98.0) Arterial Blood Base Excess 7.1 Bon Test Positive Prothrombin Time 15.0 SEC (9.30-11.50) H Prothromb Time International Ratio 1.4 (0.9-1.1) H Activated Partial Thromboplast Time 35 SEC (23-33) H White Blood Count 12.4 K/UL (4.8-10.8) H Red Blood Count 3.36 M/UL (4.20-5.40) L Hemoglobin 10.0 G/DL (12.0-16.0) L Hematocrit 32.9 % (37.0-47.0) L Mean Corpuscular Volume 98 FL (80-99) Mean Corpuscular Hemoglobin 29.8 PG (27.0-31.0) Mean Corpuscular Hemoglobin Concent 30.4 G/DL (32.0-36.0) L Red Cell Distribution Width 17.7 % (11.6-14.8) H Platelet Count 93 K/UL (150-450) L Mean Platelet Volume 9.4 FL (6.5-10.1) Neutrophils (%) (Auto) % (45.0-75.0) Lymphocytes (%) (Auto) % (20.0-45.0) Monocytes (%) (Auto) % (1.0-10.0) Eosinophils (%) (Auto) % (0.0-3.0) Basophils (%) (Auto) % (0.0-2.0) Neutrophils % (Manual) Pending Lymphocytes % (Manual) Pending Platelet Estimate Pending Platelet Morphology Pending Sodium Level 148 MMOL/L (136-145) H Potassium Level 3.4 MMOL/L (3.5-5.1) L Chloride Level 109 MMOL/L (98-107) H Carbon Dioxide Level 33 MMOL/L (21-32) H Anion Gap 6 mmol/L (5-15) Blood Urea Nitrogen 40 mg/dL (7-18) H Creatinine 4.6 MG/DL (0.55-1.30) H Estimat Glomerular Filtration Rate mL/min (>60) Glucose Level 270 MG/DL (74-106) H Uric Acid 3.6 MG/DL (2.6-7.2) Calcium Level 9.6 MG/DL (8.5-10.1) Phosphorus Level 3.2 MG/DL (2.5-4.9) Magnesium Level 1.9 MG/DL (1.8-2.4) Total Bilirubin 1.7 MG/DL (0.2-1.0) H Direct Bilirubin 0.9 MG/DL (0.0-0.3) H Aspartate Amino Transf (AST/SGOT) 47 U/L (15-37) H Alanine Aminotransferase (ALT/SGPT) 6 U/L (12-78) L Alkaline Phosphatase 206 U/L (46-116) H C-Reactive Protein, Quantitative 23.9 mg/dL (0.00-0.90) H Pro-B-Type Natriuretic Peptide 30998 pg/mL (0-125) H Total Protein 6.0 G/DL (6.4-8.2) L Albumin 1.7 G/DL (3.4-5.0) L Globulin 4.3 g/dL Albumin/Globulin Ratio 0.4 (1.0-2.7) L Random Vancomycin Level 23.6 ug/mL DIONI TRIANA Feb 08, 2017 11:27
--- NOTE | 2017-02-08 12:06 | Diagnostic Imaging Report ---
Indication: Dyspnea Comparison: 02/07/17 A single view chest radiograph was obtained. Findings: Tubes and lines are stable. The current study is technically poor but there is no obvious change. Extensive bilateral mixed interstitial alveolar lung opacities again noted. Impression: No change from the previous day
--- NOTE | 2017-02-08 13:51 | Cardiac Electrophysiology PN ---
Assessment/Plan Assessment/Plan 1. Congestive heart failure due to diastolic dysfunction and EF 60 %.On dialysis EKG NSR with low voltage QRS. 2. Shock, resolved.Off Dopamine and on Abx 3. Bradycardia resolved, off dopamine. On midodrine 5 tid 4. Vent dependent respiratory failure. Self extubated on 02/04 and was reintubated an hour later. Tracheostomy Thursday. 5. Hyperlipidemia. 6. Cirrhosis 7. Anemia with hemoglobin of 8. 8. Hypernatremia Na 148 today 9. DNR 10. ESRD on HD 11. DM DW RN Subjective Subjective In ICU unresponsive on Vent.Had HD yesterday. No signific..change. Objective Last 24 Hour Vital Signs Date Time Temp Pulse Resp B/P (MAP) Pulse Ox O2 Delivery O2 Flow Rate FiO2 02/08/17 13:02 61 20 50 02/08/17 13:00 65 20 96/45 100 Mechanical Ventilator 50 02/08/17 12:00 64 02/08/17 12:00 99.1 62 20 102/44 98 Mechanical Ventilator 50 02/08/17 12:00 50 02/08/17 11:25 74 20 50 02/08/17 11:15 118/53 02/08/17 11:00 65 20 95/59 97 Mechanical Ventilator 50 02/08/17 10:00 84 19 120/93 96 Mechanical Ventilator 50 02/08/17 09:25 87 20 50 02/08/17 09:00 84 20 108/36 100 Mechanical Ventilator 50 02/08/17 08:00 50 02/08/17 08:00 83 02/08/17 08:00 98.7 73 20 109/43 97 Mechanical Ventilator 50 02/08/17 07:13 72 20 50 02/08/17 07:00 59 20 91/39 100 Mechanical Ventilator 50 02/08/17 06:00 56 20 83/34 100 Mechanical Ventilator 50 02/08/17 05:06 69 20 50 02/08/17 05:00 79 20 88/36 100 Mechanical Ventilator 50 02/08/17 04:00 99 02/08/17 04:00 99 20 109/44 97 Mechanical Ventilator 50 02/08/17 04:00 50 02/08/17 03:06 97 19 50 02/08/17 03:00 101 21 115/58 96 Mechanical Ventilator 50 02/08/17 02:00 102 20 111/61 98 Mechanical Ventilator 50 02/08/17 01:18 98 22 50 02/08/17 01:00 100 20 96/81 100 Mechanical Ventilator 50 02/08/17 00:00 98.1 84 20 90/61 100 Mechanical Ventilator 50 02/08/17 00:00 65 02/07/17 23:07 78 20 50 02/07/17 23:00 72 20 102/44 100 Mechanical Ventilator 50 02/07/17 22:16 67 20 100 Mechanical Ventilator 50 02/07/17 22:05 65 20 100 Mechanical Ventilator 50 02/07/17 22:00 64 20 111/46 100 Mechanical Ventilator 50 02/07/17 21:00 65 20 105/43 100 Mechanical Ventilator 50 02/07/17 20:49 70 20 50 02/07/17 20:00 50 02/07/17 20:00 70 20 111/44 100 Mechanical Ventilator 50 02/07/17 20:00 75 02/07/17 19:00 98.8 62 20 110/52 100 Mechanical Ventilator 50 02/07/17 18:56 62 20 50 02/07/17 18:00 71 20 105/42 100 Mechanical Ventilator 50 02/07/17 17:08 84 20 50 02/07/17 17:00 80 19 113/60 98 Mechanical Ventilator 50 02/07/17 16:00 61 02/07/17 16:00 50 02/07/17 16:00 99.5 84 19 104/39 97 Mechanical Ventilator 50 02/07/17 15:39 68 20 50 02/07/17 15:00 69 20 100/49 100 Mechanical Ventilator 50 02/07/17 14:00 63 22 91/33 97 Mechanical Ventilator 50 Intake and Output 02/08/17 02/09/17 19:00 07:00 Intake Total 360 ml Output Total 0 ml Balance 360 ml Free Water 50 ml Tube Feeding 210 ml Other 100 ml Output Urine Total 0 ml Laboratory Tests Test 02/07/17 14:00 02/08/17 04:00 Prothrombin Time 15.0 SEC (9.30-11.50) H Prothromb Time International Ratio 1.4 (0.9-1.1) H Activated Partial Thromboplast Time 35 SEC (23-33) H White Blood Count 12.4 K/UL (4.8-10.8) H Red Blood Count 3.36 M/UL (4.20-5.40) L Hemoglobin 10.0 G/DL (12.0-16.0) L Hematocrit 32.9 % (37.0-47.0) L Mean Corpuscular Volume 98 FL (80-99) Mean Corpuscular Hemoglobin 29.8 PG (27.0-31.0) Mean Corpuscular Hemoglobin Concent 30.4 G/DL (32.0-36.0) L Red Cell Distribution Width 17.7 % (11.6-14.8) H Platelet Count 93 K/UL (150-450) L Mean Platelet Volume 9.4 FL (6.5-10.1) Neutrophils (%) (Auto) % (45.0-75.0) Lymphocytes (%) (Auto) % (20.0-45.0) Monocytes (%) (Auto) % (1.0-10.0) Eosinophils (%) (Auto) % (0.0-3.0) Basophils (%) (Auto) % (0.0-2.0) Differential Total Cells Counted 100 Neutrophils % (Manual) 79 % (45-75) H Lymphocytes % (Manual) 12 % (20-45) L Monocytes % (Manual) 1 % (1-10) Eosinophils % (Manual) 8 % (0-3) H Basophils % (Manual) 0 % (0-2) Band Neutrophils 0 % (0-8) Platelet Estimate Decreased L Platelet Morphology Normal Sodium Level 148 MMOL/L (136-145) H Potassium Level 3.4 MMOL/L (3.5-5.1) L Chloride Level 109 MMOL/L (98-107) H Carbon Dioxide Level 33 MMOL/L (21-32) H Anion Gap 6 mmol/L (5-15) Blood Urea Nitrogen 40 mg/dL (7-18) H Creatinine 4.6 MG/DL (0.55-1.30) H Estimat Glomerular Filtration Rate mL/min (>60) Glucose Level 270 MG/DL (74-106) H Uric Acid 3.6 MG/DL (2.6-7.2) Calcium Level 9.6 MG/DL (8.5-10.1) Phosphorus Level 3.2 MG/DL (2.5-4.9) Magnesium Level 1.9 MG/DL (1.8-2.4) Total Bilirubin 1.7 MG/DL (0.2-1.0) H Direct Bilirubin 0.9 MG/DL (0.0-0.3) H Aspartate Amino Transf (AST/SGOT) 47 U/L (15-37) H Alanine Aminotransferase (ALT/SGPT) 6 U/L (12-78) L Alkaline Phosphatase 206 U/L (46-116) H C-Reactive Protein, Quantitative 23.9 mg/dL (0.00-0.90) H Pro-B-Type Natriuretic Peptide 89443 pg/mL (0-125) H Total Protein 6.0 G/DL (6.4-8.2) L Albumin 1.7 G/DL (3.4-5.0) L Globulin 4.3 g/dL Albumin/Globulin Ratio 0.4 (1.0-2.7) L Random Vancomycin Level 23.6 ug/mL Microbiology Date/Time Source Procedure Growth Status 02/05/17 20:35 Blood Blood Culture - Preliminary NO GROWTH AFTER 48 HOURS Resulted 02/05/17 20:20 Blood Blood Culture - Preliminary NO GROWTH AFTER 48 HOURS Resulted 02/06/17 10:40 Sputum Gram Stain - Final Complete 02/06/17 10:40 Sputum Culture - Final Colleen Albicans Complete Objective HEAD AND NECK: No JVD.Orally intubated. Right IJ Mahurkar Catheter in place LUNGS: Coarse rhonchi CARDIOVASCULAR: Regular S1 and S2 with no gallop or murmur. ABDOMEN: Soft and nontender and obese. EXTREMITIES: 1+ pitting edema. DEAN SHAW Feb 08, 2017 13:51
--- NOTE | 2017-02-08 16:05 | General Progress Note ---
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 Recommendations - continue off of lactulose - continue Xifaxan - Continue TF - follow labs - HD/lytes per Renal - free water - await trach - will need PEG to follow Subjective Allergies: Coded Allergies: PENICILLINS (Unverified Allergy, Unknown, 03/22/15) Subjective above noted d/w RN tolerating TF less diarrhea Objective Last 24 Hour Vital Signs Date Time Temp Pulse Resp B/P (MAP) Pulse Ox O2 Delivery O2 Flow Rate FiO2 02/08/17 15:00 62 20 108/45 100 Mechanical Ventilator 50 02/08/17 14:39 54 20 50 02/08/17 14:00 60 17 101/45 100 Mechanical Ventilator 50 02/08/17 13:02 61 20 50 02/08/17 13:00 65 20 96/45 100 Mechanical Ventilator 50 02/08/17 12:00 64 02/08/17 12:00 99.1 62 20 102/44 98 Mechanical Ventilator 50 02/08/17 12:00 50 02/08/17 11:25 74 20 50 02/08/17 11:15 118/53 02/08/17 11:00 65 20 95/59 97 Mechanical Ventilator 50 02/08/17 10:00 84 19 120/93 96 Mechanical Ventilator 50 02/08/17 09:25 87 20 50 02/08/17 09:00 84 20 108/36 100 Mechanical Ventilator 50 02/08/17 08:00 50 02/08/17 08:00 83 02/08/17 08:00 98.7 73 20 109/43 97 Mechanical Ventilator 50 02/08/17 07:13 72 20 50 02/08/17 07:00 59 20 91/39 100 Mechanical Ventilator 50 02/08/17 06:00 56 20 83/34 100 Mechanical Ventilator 50 02/08/17 05:06 69 20 50 02/08/17 05:00 79 20 88/36 100 Mechanical Ventilator 50 02/08/17 04:00 99 02/08/17 04:00 99 20 109/44 97 Mechanical Ventilator 50 02/08/17 04:00 50 02/08/17 03:06 97 19 50 02/08/17 03:00 101 21 115/58 96 Mechanical Ventilator 50 02/08/17 02:00 102 20 111/61 98 Mechanical Ventilator 50 02/08/17 01:18 98 22 50 02/08/17 01:00 100 20 96/81 100 Mechanical Ventilator 50 02/08/17 00:00 98.1 84 20 90/61 100 Mechanical Ventilator 50 02/08/17 00:00 65 02/07/17 23:07 78 20 50 02/07/17 23:00 72 20 102/44 100 Mechanical Ventilator 50 02/07/17 22:16 67 20 100 Mechanical Ventilator 50 02/07/17 22:05 65 20 100 Mechanical Ventilator 50 02/07/17 22:00 64 20 111/46 100 Mechanical Ventilator 50 02/07/17 21:00 65 20 105/43 100 Mechanical Ventilator 50 02/07/17 20:49 70 20 50 02/07/17 20:00 50 02/07/17 20:00 70 20 111/44 100 Mechanical Ventilator 50 02/07/17 20:00 75 02/07/17 19:00 98.8 62 20 110/52 100 Mechanical Ventilator 50 02/07/17 18:56 62 20 50 02/07/17 18:00 71 20 105/42 100 Mechanical Ventilator 50 02/07/17 17:08 84 20 50 02/07/17 17:00 80 19 113/60 98 Mechanical Ventilator 50 Intake and Output 02/08/17 02/09/17 19:00 07:00 Intake Total 430 ml Output Total 0 ml Balance 430 ml Free Water 50 ml Tube Feeding 280 ml Other 100 ml Output Urine Total 0 ml Laboratory Tests 02/08/17 04:00: White Blood Count 12.4H, Red Blood Count 3.36L, Hemoglobin 10.0L, Hematocrit 32.9L, Mean Corpuscular Volume 98, Mean Corpuscular Hemoglobin 29.8, Mean Corpuscular Hemoglobin Concent 30.4L, Red Cell Distribution Width 17.7H, Platelet Count 93L, Mean Platelet Volume 9.4, Neutrophils (%) (Auto) , Lymphocytes (%) (Auto) , Monocytes (%) (Auto) , Eosinophils (%) (Auto) , Basophils (%) (Auto) , Differential Total Cells Counted 100, Neutrophils % ( Manual) 79H, Lymphocytes % (Manual) 12L, Monocytes % (Manual) 1, Eosinophils % ( Manual) 8H, Basophils % (Manual) 0, Band Neutrophils 0, Platelet Estimate DecreasedL, Platelet Morphology Normal, Sodium Level 148H, Potassium Level 3.4L , Chloride Level 109H, Carbon Dioxide Level 33H, Anion Gap 6, Blood Urea Nitrogen 40H, Creatinine 4.6H, Estimat Glomerular Filtration Rate , Glucose Level 270H, Uric Acid 3.6, Calcium Level 9.6, Phosphorus Level 3.2, Magnesium Level 1.9, Total Bilirubin 1.7H, Direct Bilirubin 0.9H, Aspartate Amino Transf ( AST/SGOT) 47H, Alanine Aminotransferase (ALT/SGPT) 6L, Alkaline Phosphatase 206H , C-Reactive Protein, Quantitative 23.9H, Pro-B-Type Natriuretic Peptide 51408A , Total Protein 6.0L, Albumin 1.7L, Globulin 4.3, Albumin/Globulin Ratio 0.4L, Random Vancomycin Level 23.6 Height (Feet): 5 Height (Inches): 6.00 Weight (Pounds): 261 Objective Obese WW NCAT, (+) ETT and NGT supple CTA RRR soft ND NT (+) edema confused KIERSTEN DAVIES Feb 08, 2017 16:05
--- NOTE | 2017-02-08 16:37 | Internal Med Progress Note ---
Subjective Date of Service: Feb 08, 2017 Physician Name Katharina Pond Attending Physician Rl Tee MD Current Medications Medications (Trade) Dose Ordered Sig/Pavel Route PRN Reason Start Time Stop Time Status Last Admin Dose Admin Acetaminophen (Tylenol) 650 mg Q4H PRN ORAL T>100.5 01/21/17 14:30 02/15/17 14:29 02/05/17 07:41 Chlorhexidine Gluconate (Dianne-Hex 2%) 1 applic DAILY@1999 TOPIC 01/25/17 20:00 02/24/17 19:59 02/07/17 20:08 Clotrimazole (Lotrimin) 1 applic EVERY 12 HOURS TOPIC 01/21/17 21:00 02/18/17 13:59 02/08/17 09:03 Dextrose (Dextrose 50%) STAT PRN IV Hypoglycemia 02/06/17 10:45 03/08/17 10:44 Dopamine HCl/ Dextrose 250 ml @ 0 mls/hr Q24H IV 01/25/17 11:15 02/24/17 11:14 01/30/17 10:30 Ertapenem 0.5 gm/ Sodium Chloride 55 ml @ 110 mls/hr Q24H IVPB 02/02/17 21:00 02/11/17 20:59 02/07/17 21:12 Hydromorphone HCl (Dilaudid) 0.5 mg Q4H PRN IVP Pain (5-10) 02/08/17 10:45 02/15/17 10:44 02/08/17 10:57 Insulin Aspart (NovoLOG) EVERY 4 HOURS SUBQ 02/06/17 12:00 03/08/17 11:59 02/08/17 13:31 Metoclopramide HCl (Reglan) 5 mg Q8H PRN IVP Nausea & Vomiting 01/29/17 11:30 02/28/17 11:29 01/31/17 11:46 Midodrine (Pro-Amatine) 10 mg Q8HR NG 02/03/17 14:00 03/05/17 13:59 02/08/17 13:18 Nitroglycerin (Ntg) 0.4 mg Q5MIN X 3 DOSES PRN SL Prn Chest Pain 01/21/17 14:30 02/15/17 14:29 Nystatin (Nystop Powder) 1 applic THREE TIMES A DAY TOPIC 01/22/17 13:00 02/21/17 12:59 02/08/17 13:18 Ranitidine HCl (Zantac) 150 mg DAILY NG 02/03/17 18:00 03/05/17 17:59 02/08/17 09:03 Rifaximin (Xifaxan) 550 mg EVERY 12 HOURS ORAL 01/29/17 12:00 03/07/17 11:59 02/08/17 09:03 Vancomycin HCl (Vanco rx to dose) 1 ea DAILY PRN MISC Per rx protocol 02/05/17 19:15 03/07/17 19:14 Vancomycin HCl (Vancomycin) 125 mg BID NG 02/02/17 16:00 02/09/17 15:59 02/08/17 09:08 Allergies: Coded Allergies: PENICILLINS (Unverified Allergy, Unknown, 03/22/15) ROS Limited/Unobtainable: Yes Subjective 76 YO F admitted with altered mental status. Intubated and sedated. ICU . Cover for Int Med-Dr Tee. Await tracheostomy on 02/10/17 Objective Last Vital Signs Date Time Temp Pulse Resp B/P (MAP) Pulse Ox O2 Delivery O2 Flow Rate FiO2 02/08/17 16:00 60 02/08/17 16:00 50 02/08/17 16:00 16 118/50 100 Mechanical Ventilator 02/08/17 12:00 99.1 02/06/17 08:35 15.0 Laboratory Tests Test 02/08/17 04:00 White Blood Count 12.4 K/UL (4.8-10.8) H Red Blood Count 3.36 M/UL (4.20-5.40) L Hemoglobin 10.0 G/DL (12.0-16.0) L Hematocrit 32.9 % (37.0-47.0) L Mean Corpuscular Volume 98 FL (80-99) Mean Corpuscular Hemoglobin 29.8 PG (27.0-31.0) Mean Corpuscular Hemoglobin Concent 30.4 G/DL (32.0-36.0) L Red Cell Distribution Width 17.7 % (11.6-14.8) H Platelet Count 93 K/UL (150-450) L Mean Platelet Volume 9.4 FL (6.5-10.1) Neutrophils (%) (Auto) % (45.0-75.0) Lymphocytes (%) (Auto) % (20.0-45.0) Monocytes (%) (Auto) % (1.0-10.0) Eosinophils (%) (Auto) % (0.0-3.0) Basophils (%) (Auto) % (0.0-2.0) Differential Total Cells Counted 100 Neutrophils % (Manual) 79 % (45-75) H Lymphocytes % (Manual) 12 % (20-45) L Monocytes % (Manual) 1 % (1-10) Eosinophils % (Manual) 8 % (0-3) H Basophils % (Manual) 0 % (0-2) Band Neutrophils 0 % (0-8) Platelet Estimate Decreased L Platelet Morphology Normal Sodium Level 148 MMOL/L (136-145) H Potassium Level 3.4 MMOL/L (3.5-5.1) L Chloride Level 109 MMOL/L (98-107) H Carbon Dioxide Level 33 MMOL/L (21-32) H Anion Gap 6 mmol/L (5-15) Blood Urea Nitrogen 40 mg/dL (7-18) H Creatinine 4.6 MG/DL (0.55-1.30) H Estimat Glomerular Filtration Rate mL/min (>60) Glucose Level 270 MG/DL (74-106) H Uric Acid 3.6 MG/DL (2.6-7.2) Calcium Level 9.6 MG/DL (8.5-10.1) Phosphorus Level 3.2 MG/DL (2.5-4.9) Magnesium Level 1.9 MG/DL (1.8-2.4) Total Bilirubin 1.7 MG/DL (0.2-1.0) H Direct Bilirubin 0.9 MG/DL (0.0-0.3) H Aspartate Amino Transf (AST/SGOT) 47 U/L (15-37) H Alanine Aminotransferase (ALT/SGPT) 6 U/L (12-78) L Alkaline Phosphatase 206 U/L (46-116) H C-Reactive Protein, Quantitative 23.9 mg/dL (0.00-0.90) H Pro-B-Type Natriuretic Peptide 88464 pg/mL (0-125) H Total Protein 6.0 G/DL (6.4-8.2) L Albumin 1.7 G/DL (3.4-5.0) L Globulin 4.3 g/dL Albumin/Globulin Ratio 0.4 (1.0-2.7) L Random Vancomycin Level 23.6 ug/mL Microbiology Date/Time Source Procedure Growth Status 02/05/17 20:35 Blood Blood Culture - Preliminary NO GROWTH AFTER 48 HOURS Resulted 02/05/17 20:20 Blood Blood Culture - Preliminary NO GROWTH AFTER 48 HOURS Resulted 02/06/17 10:40 Sputum Gram Stain - Final Complete 02/06/17 10:40 Sputum Culture - Final Colleen Albicans Complete Intake and Output 02/08/17 02/09/17 19:00 07:00 Intake Total 465 ml Output Total 0 ml Balance 465 ml Free Water 50 ml Tube Feeding 315 ml Other 100 ml Output Urine Total 0 ml Objective General Appearance: WD/WN, no apparent distress, moderate distress, obese EENT: PERRL/EOMI, normal ENT inspection Neck: non-tender, normal alignment, supple, normal inspection Cardiovascular: normal peripheral pulses, normal rate, regular rhythm, no gallop/murmur, no JVD Respiratory/Chest: Mechanical vent; chest wall non-tender, lungs with coarse upper air sounds, Bilat wheezes and rales, respiratory distress Abdomen: G-Tube; non tender, no organomegaly, no mass 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 Baumanii. See ID note. Continur ertaoenem and vanco per ID (2) CHF (congestive heart failure) Assessment & Plan: LVEF 60-65%. see cardiology note. (3) DM (diabetes mellitus) Assessment & Plan: Continue novolog sliding scale (4) Hypercholesteremia (5) HTN (hypertension) Assessment & Plan: Currently hypotensive. (6) Uncontrolled diabetes mellitus (7) Cirrhosis Assessment & Plan: see GI note. (8) Anemia Assessment & Plan: S/P transfusion 2 units PRBC (9) Altered mental status Assessment & Plan: Worsening. ICU status (10) Renal failure Assessment & Plan: Next hemodialysis 02/09/17. See nephrology note. (11) Respiratory failure Assessment & Plan: Due to CHF. Cont mech vent per pulmonary-await tracheostomy 02/10/17. Continue antibiotic per ID (12) Bradycardia Assessment & Plan: see cardiology note. (13) Hypotension Assessment & Plan: Continue dopamine Assessment/Plan Await tracheostomy Tu02/10/17. KATHARINA POND Feb 08, 2017 16:37
--- NOTE | 2017-02-08 17:53 | Cardiology Report ---
APPROVED REPORT EKG Measurement Heart [id number] [place] 204P43 [id number] Normal sinus rhythm Low voltage QRS Cannot rule out Anterior infarct, age undetermined Abnormal ECG
--- NOTE | 2017-02-08 17:53 | Cardiology Report ---
APPROVED REPORT EKG Measurement Heart [id number] [place] 204P43 [id number] Normal sinus rhythm Low voltage QRS Cannot rule out Anterior infarct, age undetermined Abnormal ECG
--- NOTE | 2017-02-08 17:53 | Cardiology Report ---
APPROVED REPORT EKG Measurement Heart [id number] [place] 204P43 [id number] Normal sinus rhythm Low voltage QRS Cannot rule out Anterior infarct, age undetermined Abnormal ECG
[2017-02-08] MEDS: Dyna-Hex 2% Top Sol 2oz TOPIC SCH (19:43)
[2017-02-08] MEDS: Ertapenem 0.5 GM in NS 55 ML IVPB SCH (20:55)
--- NOTE | 2017-02-08 22:07 | General Progress Note ---
Assessment/Plan Assessment/Plan ASSESSMENT AND RECOMMENDATIONS 1.Thrombocytopenia 2/2 sepsis --> improving --> give plts if below 10k or if below 20k and febrile --> ID following 2. 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 Thrombocytopenia secondary to underlying splenomegaly. 4. Anemia 2/2 chronic disease --> Watch HH, transfuse if below 8 5. Leukocytosis secondary to underlying infection. On abx per id service 6. Sepsis 2/2 UTI 7. Altered mental status 8. RAMYA on CKD,on hemodialysis Subjective ROS Limited/Unobtainable: Yes Allergies: Coded Allergies: PENICILLINS (Unverified Allergy, Unknown, 03/22/15) Subjective NAD Objective Last 24 Hour Vital Signs Date Time Temp Pulse Resp B/P (MAP) Pulse Ox O2 Delivery O2 Flow Rate FiO2 02/08/17 21:06 66 18 50 02/08/17 21:00 67 21 109/54 99 Mechanical Ventilator 50 02/08/17 20:00 68 02/08/17 20:00 50 02/08/17 20:00 67 18 108/50 98 Mechanical Ventilator 50 02/08/17 19:13 67 17 50 02/08/17 19:00 98.5 72 19 113/50 98 Mechanical Ventilator 50 02/08/17 18:00 69 18 105/53 97 Mechanical Ventilator 50 02/08/17 17:00 98.7 72 19 113/62 97 Mechanical Ventilator 50 02/08/17 16:44 73 20 50 02/08/17 16:00 60 02/08/17 16:00 50 02/08/17 16:00 61 16 118/50 100 Mechanical Ventilator 50 02/08/17 15:00 62 20 108/45 100 Mechanical Ventilator 50 02/08/17 14:39 54 20 50 02/08/17 14:00 60 17 101/45 100 Mechanical Ventilator 50 02/08/17 13:02 61 20 50 02/08/17 13:00 65 20 96/45 100 Mechanical Ventilator 50 02/08/17 12:00 64 02/08/17 12:00 99.1 62 20 102/44 98 Mechanical Ventilator 50 02/08/17 12:00 50 02/08/17 11:25 74 20 50 02/08/17 11:15 118/53 02/08/17 11:00 65 20 95/59 97 Mechanical Ventilator 50 02/08/17 10:00 84 19 120/93 96 Mechanical Ventilator 50 02/08/17 09:25 87 20 50 02/08/17 09:00 84 20 108/36 100 Mechanical Ventilator 50 02/08/17 08:00 50 02/08/17 08:00 83 02/08/17 08:00 98.7 73 20 109/43 97 Mechanical Ventilator 50 02/08/17 07:13 72 20 50 02/08/17 07:00 59 20 91/39 100 Mechanical Ventilator 50 02/08/17 06:00 56 20 83/34 100 Mechanical Ventilator 50 02/08/17 05:06 69 20 50 02/08/17 05:00 79 20 88/36 100 Mechanical Ventilator 50 02/08/17 04:00 99 02/08/17 04:00 99 20 109/44 97 Mechanical Ventilator 50 02/08/17 04:00 50 02/08/17 03:06 97 19 50 02/08/17 03:00 101 21 115/58 96 Mechanical Ventilator 50 02/08/17 02:00 102 20 111/61 98 Mechanical Ventilator 50 02/08/17 01:18 98 22 50 02/08/17 01:00 100 20 96/81 100 Mechanical Ventilator 50 02/08/17 00:00 98.1 84 20 90/61 100 Mechanical Ventilator 50 02/08/17 00:00 65 02/07/17 23:07 78 20 50 02/07/17 23:00 72 20 102/44 100 Mechanical Ventilator 50 02/07/17 22:16 67 20 100 Mechanical Ventilator 50 Intake and Output 02/08/17 02/09/17 19:00 07:00 Intake Total 620 ml 130 ml Output Total 75 ml 0 ml Balance 545 ml 130 ml Free Water 50 ml Tube Feeding 420 ml 70 ml Other 150 ml 60 ml Output Urine Total 0 ml 0 ml Stool Total 75 ml Laboratory Tests 02/08/17 04:00: White Blood Count 12.4H, Red Blood Count 3.36L, Hemoglobin 10.0L, Hematocrit 32.9L, Mean Corpuscular Volume 98, Mean Corpuscular Hemoglobin 29.8, Mean Corpuscular Hemoglobin Concent 30.4L, Red Cell Distribution Width 17.7H, Platelet Count 93L, Mean Platelet Volume 9.4, Neutrophils (%) (Auto) , Lymphocytes (%) (Auto) , Monocytes (%) (Auto) , Eosinophils (%) (Auto) , Basophils (%) (Auto) , Differential Total Cells Counted 100, Neutrophils % ( Manual) 79H, Lymphocytes % (Manual) 12L, Monocytes % (Manual) 1, Eosinophils % ( Manual) 8H, Basophils % (Manual) 0, Band Neutrophils 0, Platelet Estimate DecreasedL, Platelet Morphology Normal, Sodium Level 148H, Potassium Level 3.4L , Chloride Level 109H, Carbon Dioxide Level 33H, Anion Gap 6, Blood Urea Nitrogen 40H, Creatinine 4.6H, Estimat Glomerular Filtration Rate , Glucose Level 270H, Uric Acid 3.6, Calcium Level 9.6, Phosphorus Level 3.2, Magnesium Level 1.9, Total Bilirubin 1.7H, Direct Bilirubin 0.9H, Aspartate Amino Transf ( AST/SGOT) 47H, Alanine Aminotransferase (ALT/SGPT) 6L, Alkaline Phosphatase 206H , C-Reactive Protein, Quantitative 23.9H, Pro-B-Type Natriuretic Peptide [id number] , Total Protein 6.0L, Albumin 1.7L, Globulin 4.3, Albumin/Globulin Ratio 0.4L, Random Vancomycin Level 23.6 Height (Feet): 5 Height (Inches): 6.00 Weight (Pounds): 261 General Appearance: no apparent distress EENT: normal ENT inspection Neck: supple Cardiovascular: no gallop/murmur 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
--- NOTE | 2017-02-08 23:51 | General Progress Note ---
Assessment/Plan Assessment/Plan encephalopathy Subjective Allergies: Coded Allergies: PENICILLINS (Unverified Allergy, Unknown, 03/22/15) Subjective waxing and waning of consciousness.agitated at times unchanged since previous encounter Objective Last 24 Hour Vital Signs Date Time Temp Pulse Resp B/P (MAP) Pulse Ox O2 Delivery O2 Flow Rate FiO2 02/08/17 23:17 63 18 50 02/08/17 23:00 64 20 104/41 99 Mechanical Ventilator 50 02/08/17 22:00 67 19 111/91 99 Mechanical Ventilator 50 02/08/17 21:06 66 18 50 02/08/17 21:00 67 21 109/54 99 Mechanical Ventilator 50 02/08/17 20:00 68 02/08/17 20:00 50 02/08/17 20:00 67 18 108/50 98 Mechanical Ventilator 50 02/08/17 19:13 67 17 50 02/08/17 19:00 98.5 72 19 113/50 98 Mechanical Ventilator 50 02/08/17 18:00 69 18 105/53 97 Mechanical Ventilator 50 02/08/17 17:00 98.7 72 19 113/62 97 Mechanical Ventilator 50 02/08/17 16:44 73 20 50 02/08/17 16:00 60 02/08/17 16:00 50 02/08/17 16:00 61 16 118/50 100 Mechanical Ventilator 50 02/08/17 15:00 62 20 108/45 100 Mechanical Ventilator 50 02/08/17 14:39 54 20 50 02/08/17 14:00 60 17 101/45 100 Mechanical Ventilator 50 02/08/17 13:02 61 20 50 02/08/17 13:00 65 20 96/45 100 Mechanical Ventilator 50 02/08/17 12:00 64 02/08/17 12:00 99.1 62 20 102/44 98 Mechanical Ventilator 50 02/08/17 12:00 50 02/08/17 11:25 74 20 50 02/08/17 11:15 118/53 02/08/17 11:00 65 20 95/59 97 Mechanical Ventilator 50 02/08/17 10:00 84 19 120/93 96 Mechanical Ventilator 50 02/08/17 09:25 87 20 50 02/08/17 09:00 84 20 108/36 100 Mechanical Ventilator 50 02/08/17 08:00 50 02/08/17 08:00 83 02/08/17 08:00 98.7 73 20 109/43 97 Mechanical Ventilator 50 02/08/17 07:13 72 20 50 02/08/17 07:00 59 20 91/39 100 Mechanical Ventilator 50 02/08/17 06:00 56 20 83/34 100 Mechanical Ventilator 50 02/08/17 05:06 69 20 50 02/08/17 05:00 79 20 88/36 100 Mechanical Ventilator 50 02/08/17 04:00 99 02/08/17 04:00 99 20 109/44 97 Mechanical Ventilator 50 02/08/17 04:00 50 02/08/17 03:06 97 19 50 02/08/17 03:00 101 21 115/58 96 Mechanical Ventilator 50 02/08/17 02:00 102 20 111/61 98 Mechanical Ventilator 50 02/08/17 01:18 98 22 50 02/08/17 01:00 100 20 96/81 100 Mechanical Ventilator 50 02/08/17 00:00 98.1 84 20 90/61 100 Mechanical Ventilator 50 02/08/17 00:00 65 Intake and Output 02/08/17 02/09/17 19:00 07:00 Intake Total 620 ml 200 ml Output Total 75 ml 0 ml Balance 545 ml 200 ml Free Water 50 ml Tube Feeding 420 ml 140 ml Other 150 ml 60 ml Output Urine Total 0 ml 0 ml Stool Total 75 ml Laboratory Tests 02/08/17 04:00: White Blood Count 12.4H, Red Blood Count 3.36L, Hemoglobin 10.0L, Hematocrit 32.9L, Mean Corpuscular Volume 98, Mean Corpuscular Hemoglobin 29.8, Mean Corpuscular Hemoglobin Concent 30.4L, Red Cell Distribution Width 17.7H, Platelet Count 93L, Mean Platelet Volume 9.4, Neutrophils (%) (Auto) , Lymphocytes (%) (Auto) , Monocytes (%) (Auto) , Eosinophils (%) (Auto) , Basophils (%) (Auto) , Differential Total Cells Counted 100, Neutrophils % ( Manual) 79H, Lymphocytes % (Manual) 12L, Monocytes % (Manual) 1, Eosinophils % ( Manual) 8H, Basophils % (Manual) 0, Band Neutrophils 0, Platelet Estimate DecreasedL, Platelet Morphology Normal, Sodium Level 148H, Potassium Level 3.4L , Chloride Level 109H, Carbon Dioxide Level 33H, Anion Gap 6, Blood Urea Nitrogen 40H, Creatinine 4.6H, Estimat Glomerular Filtration Rate , Glucose Level 270H, Uric Acid 3.6, Calcium Level 9.6, Phosphorus Level 3.2, Magnesium Level 1.9, Total Bilirubin 1.7H, Direct Bilirubin 0.9H, Aspartate Amino Transf ( AST/SGOT) 47H, Alanine Aminotransferase (ALT/SGPT) 6L, Alkaline Phosphatase 206H , C-Reactive Protein, Quantitative 23.9H, Pro-B-Type Natriuretic Peptide 15385K , Total Protein 6.0L, Albumin 1.7L, Globulin 4.3, Albumin/Globulin Ratio 0.4L, Random Vancomycin Level 23.6 Height (Feet): 5 Height (Inches): 6.00 Weight (Pounds): 261 Oj Medel M.D. Feb 08, 2017 23:51
[2017-02-09] VITALS (24 sets, daily range): BP systolic 83–126; BP diastolic 37–78
[2017-02-09] MEDS: NovoLOG Insulin Flexpen SUBQ SCH ×6 (00:52→21:23)
[2017-02-09 05:15] LABS: HEMATOCRIT 29.6 % (37.0-47.0); HEMOGLOBIN 9.2 G/DL (12.0-16.0); MEAN CORPUSCULAR VOLUME 97 FL (80-99); PLATELET COUNT 85 K/UL (150-450); RED BLOOD COUNT 3.06 M/UL (4.20-5.40); RED CELL DISTRIBUTION WIDTH 17.5 % (11.6-14.8); WHITE BLOOD COUNT 8.5 K/UL (4.8-10.8)
[2017-02-09] MEDS: Midodrine 10mg tab NG SCH ×3 (06:01→22:17)
[2017-02-09 06:29] LABS: ALANINE AMINOTRANSFERASE 7 U/L (12-78); ALBUMIN 1.5 G/DL (3.4-5.0); ALBUMIN/GLOBULIN RATIO 0.4 (1.0-2.7); ALKALINE PHOSPHATASE 201 U/L (46-116); ANION GAP 6 mmol/L (5-15); ASPARTATE AMINO TRANSFERASE 44 U/L (15-37); BILIRUBIN,TOTAL 1.6 MG/DL (0.2-1.0); BLOOD UREA NITROGEN 47 mg/dL (7-18); CALCIUM 9.7 MG/DL (8.5-10.1); CARBON DIOXIDE 32 MMOL/L (21-32); CHLORIDE 111 MMOL/L (98-107); CREATININE 5.3 MG/DL (0.55-1.30); PHOSPHORUS 3.9 MG/DL (2.5-4.9); POTASSIUM 3.8 MMOL/L (3.5-5.1); SODIUM 149 MMOL/L (136-145)
[2017-02-09 06:59] LABS: BILIRUBIN,DIRECT 0.9 MG/DL (0.0-0.3)
[2017-02-09] MEDS: Nystatin Powder 100,000 units/gm 15gm TOPIC SCH ×3 (09:21→17:09)
[2017-02-09] MEDS: Vancomycin oral 125mg/2.5ml NG SCH (09:23)
--- NOTE | 2017-02-09 09:35 | Infectious Diseases Prog Note ---
Assessment/Plan Assessment/Plan Assesment: Encephalopathy- possibly multifactorial- hepatic encephalopathy, infection- worsening now due to hypercapnea (transferred to ICU 01/21), on bipap> intubated Acute respiratory failure 2ry to hypercapnea, PNA; now ARDS - self-extubated, re -intubated 02/04 -CXR 02/04: Pulmonary parenchymal disease, likely ARDS, overall stable Sepsis 2ry to PNA and Bacteremia HCAP 2ry to ESBL. E.coli, s/p Rx -CXR 02/08: . Extensive bilateral mixed interstitial alveolar lung opacities again noted. -CXR 02/02: Diffuse extensive interstitial and alveolar pulmonary parenchymal disease is unchanged. -repeat sp cx 01/26: +4 MDR A.baumani (I Ceftazidime, R to carbapenem and aminoglycosides, Minocycline; S to Colistin, Polymyxin B) suspect Colonizer ( improving not on tx)-s/p INH Colistin Tx -Sp cx 01/22: +2 ESBK E.coli, +2 C. albicans (colonizer) -CrAg neg, cocci ab pending MRSA bacteremia- with repeat Bcx growing CoNS (?contaminant vs real). BCx cleared 01/26 SP Rx -01/16 04/23 BCx MRSA (S. Vanco JOSE A 1), repeat Bcx 01/19 Neg, 01/21 04/23 CoNS ( contaminant), 01/24 Bcx 04/23 CoNs, Bcx 01/26 Neg x4, 01/28 BCx neg -TTE 01/19(limited study): No aortic regurgitation.Trace mitral regurgitation.Mitral diastolic velocities suggest reduced left ventricular relaxation c/w diastolic dysfunction grade. Moderate tricuspid regurgitation. Leukocytosis, previously worsened up to 24, now recurrent, mild, worsening, new fever r/o new KRISHAN ?aspiration event 02/04- now resolved -Bcx 02/05, NTD; Sp cx 02/06 C. albicans (colonizer) -01/26. pyuria improving (WBC 10-15); ucx C. albicans (colonizer) -10/ u/a WBC 30-40, ucx yeast (colonizer) -Sp cx ESBL E.coli, diaz (colonizer) Elevated LFTs, improving -[facility] hep panel neg Probable MDR UTI, pyuria, s/p Rx -u/a 01/16 WBC too many to count,nit neg ,leuk est +3; UCx x3 grew >100K MDR A.baumani complex (S. tigecycline/Minocycline, Polymixin B/Colistin), >100K PsA (S. Cefepime, Zosyn; R Cipro/Levo); a prior isolated on a ucx from the same day isolated MDR PsA (I. Cefepime, R ceftzadime, Meropenem; S. Tygecicine, amikacin) -renal u/s: Nondiagnostic exam Metabolic acidosis, 2ry to renal failure- now improved after initiation of HD 01/28 RAMYA on CKD, started on HD 01/28 Cirrhosis Anemia & thrombocytopenia DM type 2 Morbid obesity DNR PLAN: -Continue IV vancomycin d# 5/5-7 ( given worsening leukocytosis, new fever ) -monitor closely; if HD decompensation add IV Colistin -D/C Ertapenem for ESBL E. coli in sputum (abx d# 19 ) -continue prophylactic PO Vancomycin #17 -s/p 10d INH Colistin 02/07 for MDR ABC in sputum -10/17 s/p IV Vancomycin #15/14 -s/p 1 dose Amikacin 10/11 -s/p 7d Cefepime 10/7 -s/p 3d Amikacin 10/7 -s/p 7d Minocycline 10/7 -s/p 3d IV vanco 10/1 -f/u repeat Bcx, cocci ab monitor CBC, temperatures monitor BMP monitor CXR vent support, trach eventually Discussed with RN. Poor px; critically ill Subjective Allergies: Coded Allergies: PENICILLINS (Unverified Allergy, Unknown, 03/22/15) Subjective afebrile in > 72hrs unchanged lung opacities Bcx NTD leukocytosis resolved. Objective Vital Signs Last 24 Hour Vital Signs Date Time Temp Pulse Resp B/P (MAP) Pulse Ox O2 Delivery O2 Flow Rate FiO2 02/09/17 09:00 84 21 88/65 96 Mechanical Ventilator 50 02/09/17 08:33 Mechanical Ventilator 15.0 50 02/09/17 08:00 64 02/09/17 08:00 64 20 117/56 99 Mechanical Ventilator 50 02/09/17 08:00 50 02/09/17 07:00 59 20 116/56 99 Mechanical Ventilator 50 02/09/17 06:53 55 20 50 02/09/17 06:00 63 20 98/44 99 Mechanical Ventilator 50 02/09/17 05:16 78 50 02/09/17 05:00 74 20 93/78 99 Mechanical Ventilator 50 02/09/17 04:00 81 02/09/17 04:00 50 02/09/17 04:00 98.7 70 19 93/37 100 Mechanical Ventilator 50 02/09/17 03:10 78 18 50 02/09/17 03:00 66 20 97/39 99 Mechanical Ventilator 50 02/09/17 02:00 72 20 92/45 99 Mechanical Ventilator 50 02/09/17 01:00 72 20 95/42 99 Mechanical Ventilator 50 02/09/17 00:57 65 18 50 02/09/17 00:00 98.3 69 18 93/54 100 Mechanical Ventilator 50 02/09/17 00:00 50 02/09/17 00:00 77 02/08/17 23:17 63 18 50 02/08/17 23:00 64 20 104/41 99 Mechanical Ventilator 50 02/08/17 22:00 67 19 111/91 99 Mechanical Ventilator 50 02/08/17 21:06 66 18 50 02/08/17 21:00 67 21 109/54 99 Mechanical Ventilator 50 02/08/17 20:00 68 02/08/17 20:00 50 02/08/17 20:00 67 18 108/50 98 Mechanical Ventilator 50 02/08/17 19:13 67 17 50 02/08/17 19:00 98.5 72 19 113/50 98 Mechanical Ventilator 50 02/08/17 18:00 69 18 105/53 97 Mechanical Ventilator 50 02/08/17 17:00 98.7 72 19 113/62 97 Mechanical Ventilator 50 02/08/17 16:44 73 20 50 02/08/17 16:00 60 02/08/17 16:00 50 02/08/17 16:00 61 16 118/50 100 Mechanical Ventilator 50 02/08/17 15:00 62 20 108/45 100 Mechanical Ventilator 50 02/08/17 14:39 54 20 50 02/08/17 14:00 60 17 101/45 100 Mechanical Ventilator 50 02/08/17 13:02 61 20 50 02/08/17 13:00 65 20 96/45 100 Mechanical Ventilator 50 02/08/17 12:00 64 02/08/17 12:00 99.1 62 20 102/44 98 Mechanical Ventilator 50 02/08/17 12:00 50 02/08/17 11:25 74 20 50 02/08/17 11:15 118/53 02/08/17 11:00 65 20 95/59 97 Mechanical Ventilator 50 02/08/17 10:00 84 19 120/93 96 Mechanical Ventilator 50 02/08/17 09:25 87 20 50 Height (Feet): 5 Height (Inches): 6.00 Weight (Pounds): 256 Objective HEENT: No pale conjunctivae. No icterus.ETT in place NECK: No lymphadenopathy. CHEST: coarse breath sounds HEART: S1 and S2. ABDOMEN: Soft and obese. EXTREMITIES: No cyanosis. NEUROLOGIC: lethargic. Skin: no rashes Microbiology Date/Time Source Procedure Growth Status 02/06/17 10:40 Sputum Gram Stain - Final Complete 02/06/17 10:40 Sputum Culture - Final Diaz Albicans Complete Laboratory Tests Test 02/09/17 03:30 02/09/17 07:32 White Blood Count 8.5 K/UL (4.8-10.8) Red Blood Count 3.06 M/UL (4.20-5.40) L Hemoglobin 9.2 G/DL (12.0-16.0) L Hematocrit 29.6 % (37.0-47.0) L Mean Corpuscular Volume 97 FL (80-99) Mean Corpuscular Hemoglobin 30.2 PG (27.0-31.0) Mean Corpuscular Hemoglobin Concent 31.1 G/DL (32.0-36.0) L Red Cell Distribution Width 17.5 % (11.6-14.8) H Platelet Count 85 K/UL (150-450) L Mean Platelet Volume 9.9 FL (6.5-10.1) Neutrophils (%) (Auto) % (45.0-75.0) Lymphocytes (%) (Auto) % (20.0-45.0) Monocytes (%) (Auto) % (1.0-10.0) Eosinophils (%) (Auto) % (0.0-3.0) Basophils (%) (Auto) % (0.0-2.0) Differential Total Cells Counted 100 Neutrophils % (Manual) 83 % (45-75) H Lymphocytes % (Manual) 7 % (20-45) L Monocytes % (Manual) 8 % (1-10) Eosinophils % (Manual) 2 % (0-3) Basophils % (Manual) 0 % (0-2) Band Neutrophils 0 % (0-8) Platelet Estimate Decreased L Platelet Morphology Normal Hypochromasia 1+ Anisocytosis 1+ Sodium Level 149 MMOL/L (136-145) H Potassium Level 3.8 MMOL/L (3.5-5.1) Chloride Level 111 MMOL/L (98-107) H Carbon Dioxide Level 32 MMOL/L (21-32) Anion Gap 6 mmol/L (5-15) Blood Urea Nitrogen 47 mg/dL (7-18) H Creatinine 5.3 MG/DL (0.55-1.30) H Estimat Glomerular Filtration Rate mL/min (>60) Glucose Level 259 MG/DL (74-106) H Calcium Level 9.7 MG/DL (8.5-10.1) Phosphorus Level 3.9 MG/DL (2.5-4.9) Magnesium Level 2.0 MG/DL (1.8-2.4) Total Bilirubin 1.6 MG/DL (0.2-1.0) H Direct Bilirubin 0.9 MG/DL (0.0-0.3) H Aspartate Amino Transf (AST/SGOT) 44 U/L (15-37) H Alanine Aminotransferase (ALT/SGPT) 7 U/L (12-78) L Alkaline Phosphatase 201 U/L (46-116) H Total Protein 5.7 G/DL (6.4-8.2) L Albumin 1.5 G/DL (3.4-5.0) L Globulin 4.2 g/dL Albumin/Globulin Ratio 0.4 (1.0-2.7) L Arterial Blood pH 7.444 (7.350-7.450) Arterial Blood Partial Pressure CO2 47.1 mmHg (35.0-45.0) H Arterial Blood Partial Pressure O2 125.7 mmHg (75.0-100.0) H Arterial Blood HCO3 31.6 mmol/L (22.0-26.0) H Arterial Blood Oxygen Saturation 97.6 % (92.0-98.0) Arterial Blood Base Excess 6.6 Bon Test Positive Current Medications Medications (Trade) Dose Ordered Sig/Pavel Route PRN Reason Start Time Stop Time Status Last Admin Dose Admin Acetaminophen (Tylenol) 650 mg Q4H PRN ORAL T>100.5 01/21/17 14:30 02/15/17 14:29 02/05/17 07:41 Chlorhexidine Gluconate (Dianne-Hex 2%) 1 applic DAILY@1999 TOPIC 01/25/17 20:00 02/24/17 19:59 02/08/17 19:43 Clotrimazole (Lotrimin) 1 applic EVERY 12 HOURS TOPIC 01/21/17 21:00 02/18/17 13:59 02/08/17 20:58 Dextrose (Dextrose 50%) STAT PRN IV Hypoglycemia 02/06/17 10:45 03/08/17 10:44 Dopamine HCl/ Dextrose 250 ml @ 0 mls/hr Q24H IV 01/25/17 11:15 02/24/17 11:14 01/30/17 10:30 Ertapenem 0.5 gm/ Sodium Chloride 55 ml @ 110 mls/hr Q24H IVPB 02/02/17 21:00 02/11/17 20:59 02/08/17 20:55 Hydromorphone HCl (Dilaudid) 0.5 mg Q4H PRN IVP Pain (5-10) 02/08/17 10:45 02/15/17 10:44 02/08/17 10:57 Insulin Aspart (NovoLOG) EVERY 4 HOURS SUBQ 02/06/17 12:00 03/08/17 11:59 02/09/17 04:53 Metoclopramide HCl (Reglan) 5 mg Q8H PRN IVP Nausea & Vomiting 01/29/17 11:30 02/28/17 11:29 01/31/17 11:46 Midodrine (Pro-Amatine) 10 mg Q8HR NG 02/03/17 14:00 03/05/17 13:59 02/09/17 06:01 Nitroglycerin (Ntg) 0.4 mg Q5MIN X 3 DOSES PRN SL Prn Chest Pain 01/21/17 14:30 02/15/17 14:29 Nystatin (Nystop Powder) 1 applic THREE TIMES A DAY TOPIC 01/22/17 13:00 02/21/17 12:59 02/08/17 17:57 Ranitidine HCl (Zantac) 150 mg DAILY NG 02/03/17 18:00 03/05/17 17:59 02/08/17 09:03 Rifaximin (Xifaxan) 550 mg EVERY 12 HOURS ORAL 01/29/17 12:00 03/07/17 11:59 02/08/17 20:55 Vancomycin HCl (Vanco rx to dose) 1 ea DAILY PRN MISC Per rx protocol 02/05/17 19:15 03/07/17 19:14 Vancomycin HCl (Vancomycin) 125 mg BID NG 02/02/17 16:00 02/09/17 15:59 02/08/17 17:57 Nereyda Monroe M.D. Feb 09, 2017 09:35
--- NOTE | 2017-02-09 09:41 | Pulmonolgy Critical Care Note ---
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 Respiratory: monitor respiratory rate, adjust FIO2, CXR Cardiac: continue to monitor HR/BP Renal: F/U I&O, keep IV fluid, check electrolytes Infectious Disease: check cultures Gastrointestinal: continue feedings/current rate Endocrine: continue sliding scale insulin Hematologic: transfuse if hgb<8.5 Neurologic: PRN Ativan, keep patient comfortable Affect: PRN ativan Prophylaxis: Protonix, Heparin Notes Reviewed: sugar boiler, renal Discussed with: nurses, consultants, 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 - Objective Last 24 Hour Vital Signs Date Time Temp Pulse Resp B/P (MAP) Pulse Ox O2 Delivery O2 Flow Rate FiO2 02/09/17 09:00 84 21 88/65 96 Mechanical Ventilator 50 02/09/17 08:54 59 20 50 02/09/17 08:33 Mechanical Ventilator 15.0 50 02/09/17 08:00 64 02/09/17 08:00 64 20 117/56 99 Mechanical Ventilator 50 02/09/17 08:00 50 02/09/17 07:00 59 20 116/56 99 Mechanical Ventilator 50 02/09/17 06:53 55 20 50 02/09/17 06:00 63 20 98/44 99 Mechanical Ventilator 50 02/09/17 05:16 78 50 02/09/17 05:00 74 20 93/78 99 Mechanical Ventilator 50 02/09/17 04:00 81 02/09/17 04:00 50 02/09/17 04:00 98.7 70 19 93/37 100 Mechanical Ventilator 50 02/09/17 03:10 78 18 50 02/09/17 03:00 66 20 97/39 99 Mechanical Ventilator 50 02/09/17 02:00 72 20 92/45 99 Mechanical Ventilator 50 02/09/17 01:00 72 20 95/42 99 Mechanical Ventilator 50 02/09/17 00:57 65 18 50 02/09/17 00:00 98.3 69 18 93/54 100 Mechanical Ventilator 50 02/09/17 00:00 50 02/09/17 00:00 77 02/08/17 23:17 63 18 50 02/08/17 23:00 64 20 104/41 99 Mechanical Ventilator 50 02/08/17 22:00 67 19 111/91 99 Mechanical Ventilator 50 02/08/17 21:06 66 18 50 02/08/17 21:00 67 21 109/54 99 Mechanical Ventilator 50 02/08/17 20:00 68 02/08/17 20:00 50 02/08/17 20:00 67 18 108/50 98 Mechanical Ventilator 50 02/08/17 19:13 67 17 50 02/08/17 19:00 98.5 72 19 113/50 98 Mechanical Ventilator 50 02/08/17 18:00 69 18 105/53 97 Mechanical Ventilator 50 02/08/17 17:00 98.7 72 19 113/62 97 Mechanical Ventilator 50 02/08/17 16:44 73 20 50 02/08/17 16:00 60 02/08/17 16:00 50 02/08/17 16:00 61 16 118/50 100 Mechanical Ventilator 50 02/08/17 15:00 62 20 108/45 100 Mechanical Ventilator 50 02/08/17 14:39 54 20 50 02/08/17 14:00 60 17 101/45 100 Mechanical Ventilator 50 02/08/17 13:02 61 20 50 02/08/17 13:00 65 20 96/45 100 Mechanical Ventilator 50 02/08/17 12:00 64 02/08/17 12:00 99.1 62 20 102/44 98 Mechanical Ventilator 50 02/08/17 12:00 50 02/08/17 11:25 74 20 50 02/08/17 11:15 118/53 02/08/17 11:00 65 20 95/59 97 Mechanical Ventilator 50 02/08/17 10:00 84 19 120/93 96 Mechanical Ventilator 50 Status: awake Condition: critical HEENT: atraumatic Lungs: clear Heart: HR/BP unstable, regular Abdomen: non-tender, active bowel sounds, feeding tube Extremities: no C/C/E, edema Decubiti: stage Micro: Microbiology Date/Time Source Procedure Growth Status 02/06/17 10:40 Sputum Gram Stain - Final Complete 02/06/17 10:40 Sputum Culture - Final Colleen Albicans Complete Accucheck: 211 Critical Care - Subjective ROS Limited/Unobtainable: No Interval Events: scheduled for tracheostomy tomorrow Condition: critical EKG Rhythm: Sinus Rhythm FI02: 50 Vent Support Breath Rate: 20 Vent Support Mode: AC Vent Tidal Volume: 650 Sputum Amount: Moderate PEEP: 0.0 PIP: 47 Tube Feeding Amount: 35 I&O: Intake and Output 02/09/17 02/10/17 19:00 07:00 Intake Total 70 ml Output Total 0 ml Balance 70 ml Tube Feeding 70 ml Output Urine Total 0 ml CXR: no change ET-Tube: 7.0 ET Position: 20 Labs: Laboratory Tests Test 02/09/17 03:30 02/09/17 07:32 White Blood Count 8.5 K/UL (4.8-10.8) Red Blood Count 3.06 M/UL (4.20-5.40) L Hemoglobin 9.2 G/DL (12.0-16.0) L Hematocrit 29.6 % (37.0-47.0) L Mean Corpuscular Volume 97 FL (80-99) Mean Corpuscular Hemoglobin 30.2 PG (27.0-31.0) Mean Corpuscular Hemoglobin Concent 31.1 G/DL (32.0-36.0) L Red Cell Distribution Width 17.5 % (11.6-14.8) H Platelet Count 85 K/UL (150-450) L Mean Platelet Volume 9.9 FL (6.5-10.1) Neutrophils (%) (Auto) % (45.0-75.0) Lymphocytes (%) (Auto) % (20.0-45.0) Monocytes (%) (Auto) % (1.0-10.0) Eosinophils (%) (Auto) % (0.0-3.0) Basophils (%) (Auto) % (0.0-2.0) Differential Total Cells Counted 100 Neutrophils % (Manual) 83 % (45-75) H Lymphocytes % (Manual) 7 % (20-45) L Monocytes % (Manual) 8 % (1-10) Eosinophils % (Manual) 2 % (0-3) Basophils % (Manual) 0 % (0-2) Band Neutrophils 0 % (0-8) Platelet Estimate Decreased L Platelet Morphology Normal Hypochromasia 1+ Anisocytosis 1+ Sodium Level 149 MMOL/L (136-145) H Potassium Level 3.8 MMOL/L (3.5-5.1) Chloride Level 111 MMOL/L (98-107) H Carbon Dioxide Level 32 MMOL/L (21-32) Anion Gap 6 mmol/L (5-15) Blood Urea Nitrogen 47 mg/dL (7-18) H Creatinine 5.3 MG/DL (0.55-1.30) H Estimat Glomerular Filtration Rate mL/min (>60) Glucose Level 259 MG/DL (74-106) H Calcium Level 9.7 MG/DL (8.5-10.1) Phosphorus Level 3.9 MG/DL (2.5-4.9) Magnesium Level 2.0 MG/DL (1.8-2.4) Total Bilirubin 1.6 MG/DL (0.2-1.0) H Direct Bilirubin 0.9 MG/DL (0.0-0.3) H Aspartate Amino Transf (AST/SGOT) 44 U/L (15-37) H Alanine Aminotransferase (ALT/SGPT) 7 U/L (12-78) L Alkaline Phosphatase 201 U/L (46-116) H Total Protein 5.7 G/DL (6.4-8.2) L Albumin 1.5 G/DL (3.4-5.0) L Globulin 4.2 g/dL Albumin/Globulin Ratio 0.4 (1.0-2.7) L Arterial Blood pH 7.444 (7.350-7.450) Arterial Blood Partial Pressure CO2 47.1 mmHg (35.0-45.0) H Arterial Blood Partial Pressure O2 125.7 mmHg (75.0-100.0) H Arterial Blood HCO3 31.6 mmol/L (22.0-26.0) H Arterial Blood Oxygen Saturation 97.6 % (92.0-98.0) Arterial Blood Base Excess 6.6 Bon Test Positive DIONI TRIANA Feb 09, 2017 09:41
--- NOTE | 2017-02-09 09:56 | Diagnostic Imaging Report ---
Indication: DYSPNEA Technique: One view of the chest Comparison: 02/08/2017 Findings: Stable satisfactory positions of endotracheal and nasogastric tubes. Right jugular temporary dialysis catheter is again demonstrated. Again demonstrated is diffuse bilateral interstitial and airspace disease. The heart is borderline enlarged. Findings are unchanged Impression: Unchanged, over one day, findings as above.
[2017-02-09] MEDS ORDERED: Phytonadione 10 mg/mL 1ml amp SUBQ ONE (10:55)
--- NOTE | 2017-02-09 11:09 | General Progress Note ---
Assessment/Plan Status: stable - from renal stand Assessment/Plan Acute on chronic renal failure- multifactorial CHF DM HTN Sepsis Now: Acute respiratory failure- Intubated - Altered level of consciousness - ESBL (extended spectrum beta-lactamase) producing bacteria infection - Cardiomegaly - DM (diabetes mellitus) - HTN (hypertension) - UTI (urinary tract infection) - Anemia - High Cholestrol - COPD - YELENA - Fatty liver Plan: due trach 02/10 D5w 500 cc K & Phos supplement as needed On midodrine dialysis 02/06 done next 02/09 Transfuse as needed, one unit 02/04 Optimize cardiac and pulmonary status 2D echo results noted avoid nephrotoxics monitor renal parameters Urine studies per orders poor prognosis Subjective ROS Limited/Unobtainable: Yes Allergies: Coded Allergies: PENICILLINS (Unverified Allergy, Unknown, 03/22/15) Objective Last 24 Hour Vital Signs Date Time Temp Pulse Resp B/P (MAP) Pulse Ox O2 Delivery O2 Flow Rate FiO2 02/09/17 09:00 84 21 88/65 96 Mechanical Ventilator 50 02/09/17 08:54 59 20 50 02/09/17 08:33 Mechanical Ventilator 15.0 50 02/09/17 08:00 64 02/09/17 08:00 64 20 117/56 99 Mechanical Ventilator 50 02/09/17 08:00 50 02/09/17 07:00 59 20 116/56 99 Mechanical Ventilator 50 02/09/17 06:53 55 20 50 02/09/17 06:00 63 20 98/44 99 Mechanical Ventilator 50 02/09/17 05:16 78 50 02/09/17 05:00 74 20 93/78 99 Mechanical Ventilator 50 02/09/17 04:00 81 02/09/17 04:00 50 02/09/17 04:00 98.7 70 19 93/37 100 Mechanical Ventilator 50 02/09/17 03:10 78 18 50 02/09/17 03:00 66 20 97/39 99 Mechanical Ventilator 50 02/09/17 02:00 72 20 92/45 99 Mechanical Ventilator 50 02/09/17 01:00 72 20 95/42 99 Mechanical Ventilator 50 02/09/17 00:57 65 18 50 02/09/17 00:00 98.3 69 18 93/54 100 Mechanical Ventilator 50 02/09/17 00:00 50 02/09/17 00:00 77 02/08/17 23:17 63 18 50 02/08/17 23:00 64 20 104/41 99 Mechanical Ventilator 50 02/08/17 22:00 67 19 111/91 99 Mechanical Ventilator 50 02/08/17 21:06 66 18 50 02/08/17 21:00 67 21 109/54 99 Mechanical Ventilator 50 02/08/17 20:00 68 02/08/17 20:00 50 02/08/17 20:00 67 18 108/50 98 Mechanical Ventilator 50 02/08/17 19:13 67 17 50 02/08/17 19:00 98.5 72 19 113/50 98 Mechanical Ventilator 50 02/08/17 18:00 69 18 105/53 97 Mechanical Ventilator 50 02/08/17 17:00 98.7 72 19 113/62 97 Mechanical Ventilator 50 02/08/17 16:44 73 20 50 02/08/17 16:00 60 02/08/17 16:00 50 02/08/17 16:00 61 16 118/50 100 Mechanical Ventilator 50 02/08/17 15:00 62 20 108/45 100 Mechanical Ventilator 50 02/08/17 14:39 54 20 50 02/08/17 14:00 60 17 101/45 100 Mechanical Ventilator 50 02/08/17 13:02 61 20 50 02/08/17 13:00 65 20 96/45 100 Mechanical Ventilator 50 02/08/17 12:00 64 02/08/17 12:00 99.1 62 20 102/44 98 Mechanical Ventilator 50 02/08/17 12:00 50 02/08/17 11:25 74 20 50 02/08/17 11:15 118/53 Intake and Output 02/09/17 02/10/17 19:00 07:00 Intake Total 70 ml Output Total 0 ml Balance 70 ml Tube Feeding 70 ml Output Urine Total 0 ml Laboratory Tests 02/09/17 03:30: White Blood Count 8.5, Red Blood Count 3.06L, Hemoglobin 9.2L, Hematocrit 29.6L , Mean Corpuscular Volume 97, Mean Corpuscular Hemoglobin 30.2, Mean Corpuscular Hemoglobin Concent 31.1L, Red Cell Distribution Width 17.5H, Platelet Count 85L, Mean Platelet Volume 9.9, Neutrophils (%) (Auto) , Lymphocytes (%) (Auto) , Monocytes (%) (Auto) , Eosinophils (%) (Auto) , Basophils (%) (Auto) , Differential Total Cells Counted 100, Neutrophils % ( Manual) 83H, Lymphocytes % (Manual) 7L, Monocytes % (Manual) 8, Eosinophils % ( Manual) 2, Basophils % (Manual) 0, Band Neutrophils 0, Platelet Estimate DecreasedL, Platelet Morphology Normal, Hypochromasia 1+, Anisocytosis 1+, Sodium Level 149H, Potassium Level 3.8, Chloride Level 111H, Carbon Dioxide Level 32, Anion Gap 6, Blood Urea Nitrogen 47H, Creatinine 5.3H, Estimat Glomerular Filtration Rate , Glucose Level 259H, Calcium Level 9.7, Phosphorus Level 3.9, Magnesium Level 2.0, Total Bilirubin 1.6H, Direct Bilirubin 0.9H, Aspartate Amino Transf (AST/SGOT) 44H, Alanine Aminotransferase (ALT/SGPT) 7L, Alkaline Phosphatase 201H, Total Protein 5.7L, Albumin 1.5L, Globulin 4.2, Albumin/Globulin Ratio 0.4L 02/09/17 07:32: Arterial Blood pH 7.444, Arterial Blood Partial Pressure CO2 47.1H, Arterial Blood Partial Pressure O2 125.7H, Arterial Blood HCO3 31.6H, Arterial Blood Oxygen Saturation 97.6, Arterial Blood Base Excess 6.6, Bon Test Positive Height (Feet): 5 Height (Inches): 6.00 Weight (Pounds): 256 General Appearance: no apparent distress Cardiovascular: normal rate Respiratory/Chest: decreased breath sounds Abdomen: distended Objective no other change ANDERS MOLINA Feb 09, 2017 11:09
[2017-02-09] MEDS: DOPamine 400mg/250ml 250 ML IV SCH (11:15)
[2017-02-09] MEDS ORDERED: Etomidate 40mg/20ml Inj IV ONE (15:12)
[2017-02-09] MEDS: HYDROmorphone 1mg/ml Carpuject IVP PRN (16:32)
--- NOTE | 2017-02-09 16:55 | Cardiac Electrophysiology PN ---
Assessment/Plan Assessment/Plan 1. Congestive heart failure due to diastolic dysfunction and EF 60 %.On dialysis EKG NSR with low voltage QRS. 2. Shock, resolved.Off Dopamine and on Abx 3. Bradycardia resolved, off dopamine. On midodrine 5 tid 4. Vent dependent respiratory failure. Self extubated on 02/04 and was reintubated an hour later. Tracheostomy tomorrow 5. Hyperlipidemia. 6. Cirrhosis 7. Anemia with hemoglobin of 8. 8. Hypernatremia Na 149 today 02/09/17 9. DNR 10. ESRD on HD 11. DM 12. Dysphagia, PEG pending after tracheostomy DW RN Subjective Subjective In ICU on Vent.Had HD 3 liters today. No significant change.Scheduled for Tracheostomy tomorrow Objective Last 24 Hour Vital Signs Date Time Temp Pulse Resp B/P (MAP) Pulse Ox O2 Delivery O2 Flow Rate FiO2 02/09/17 14:59 64 20 50 02/09/17 14:00 88 20 102/56 100 Mechanical Ventilator 50 02/09/17 13:00 97 20 112/51 97 Mechanical Ventilator 50 02/09/17 12:50 62 20 50 02/09/17 12:00 102 02/09/17 12:00 94 23 113/71 96 Mechanical Ventilator 50 02/09/17 12:00 50 02/09/17 11:50 Mechanical Ventilator 15.0 50 02/09/17 11:25 60 20 50 02/09/17 11:15 127/59 02/09/17 11:00 96 21 112/51 97 Mechanical Ventilator 50 02/09/17 10:00 98.6 80 20 116/50 97 Mechanical Ventilator 50 02/09/17 09:00 84 21 88/65 96 Mechanical Ventilator 50 02/09/17 08:54 59 20 50 02/09/17 08:33 Mechanical Ventilator 15.0 50 02/09/17 08:00 64 02/09/17 08:00 64 20 117/56 99 Mechanical Ventilator 50 02/09/17 08:00 50 02/09/17 07:00 59 20 116/56 99 Mechanical Ventilator 50 02/09/17 06:53 55 20 50 02/09/17 06:00 63 20 98/44 99 Mechanical Ventilator 50 02/09/17 05:16 78 50 02/09/17 05:00 74 20 93/78 99 Mechanical Ventilator 50 02/09/17 04:00 81 02/09/17 04:00 50 02/09/17 04:00 98.7 70 19 93/37 100 Mechanical Ventilator 50 02/09/17 03:10 78 18 50 02/09/17 03:00 66 20 97/39 99 Mechanical Ventilator 50 02/09/17 02:00 72 20 92/45 99 Mechanical Ventilator 50 02/09/17 01:00 72 20 95/42 99 Mechanical Ventilator 50 02/09/17 00:57 65 18 50 02/09/17 00:00 98.3 69 18 93/54 100 Mechanical Ventilator 50 02/09/17 00:00 50 02/09/17 00:00 77 02/08/17 23:17 63 18 50 02/08/17 23:00 64 20 104/41 99 Mechanical Ventilator 50 02/08/17 22:00 67 19 111/91 99 Mechanical Ventilator 50 02/08/17 21:06 66 18 50 02/08/17 21:00 67 21 109/54 99 Mechanical Ventilator 50 02/08/17 20:00 68 02/08/17 20:00 50 02/08/17 20:00 67 18 108/50 98 Mechanical Ventilator 50 02/08/17 19:13 67 17 50 02/08/17 19:00 98.5 72 19 113/50 98 Mechanical Ventilator 50 02/08/17 18:00 69 18 105/53 97 Mechanical Ventilator 50 02/08/17 17:00 98.7 72 19 113/62 97 Mechanical Ventilator 50 Intake and Output 02/09/17 02/10/17 19:00 07:00 Intake Total 210 ml Output Total 3001 ml Balance -2791 ml Tube Feeding 210 ml Output Urine Total 0 ml Hemodialysis UF 3001 ml Laboratory Tests Test 02/09/17 03:30 02/09/17 07:32 White Blood Count 8.5 K/UL (4.8-10.8) Red Blood Count 3.06 M/UL (4.20-5.40) L Hemoglobin 9.2 G/DL (12.0-16.0) L Hematocrit 29.6 % (37.0-47.0) L Mean Corpuscular Volume 97 FL (80-99) Mean Corpuscular Hemoglobin 30.2 PG (27.0-31.0) Mean Corpuscular Hemoglobin Concent 31.1 G/DL (32.0-36.0) L Red Cell Distribution Width 17.5 % (11.6-14.8) H Platelet Count 85 K/UL (150-450) L Mean Platelet Volume 9.9 FL (6.5-10.1) Neutrophils (%) (Auto) % (45.0-75.0) Lymphocytes (%) (Auto) % (20.0-45.0) Monocytes (%) (Auto) % (1.0-10.0) Eosinophils (%) (Auto) % (0.0-3.0) Basophils (%) (Auto) % (0.0-2.0) Differential Total Cells Counted 100 Neutrophils % (Manual) 83 % (45-75) H Lymphocytes % (Manual) 7 % (20-45) L Monocytes % (Manual) 8 % (1-10) Eosinophils % (Manual) 2 % (0-3) Basophils % (Manual) 0 % (0-2) Band Neutrophils 0 % (0-8) Platelet Estimate Decreased L Platelet Morphology Normal Hypochromasia 1+ Anisocytosis 1+ Sodium Level 149 MMOL/L (136-145) H Potassium Level 3.8 MMOL/L (3.5-5.1) Chloride Level 111 MMOL/L (98-107) H Carbon Dioxide Level 32 MMOL/L (21-32) Anion Gap 6 mmol/L (5-15) Blood Urea Nitrogen 47 mg/dL (7-18) H Creatinine 5.3 MG/DL (0.55-1.30) H Estimat Glomerular Filtration Rate mL/min (>60) Glucose Level 259 MG/DL (74-106) H Calcium Level 9.7 MG/DL (8.5-10.1) Phosphorus Level 3.9 MG/DL (2.5-4.9) Magnesium Level 2.0 MG/DL (1.8-2.4) Total Bilirubin 1.6 MG/DL (0.2-1.0) H Direct Bilirubin 0.9 MG/DL (0.0-0.3) H Aspartate Amino Transf (AST/SGOT) 44 U/L (15-37) H Alanine Aminotransferase (ALT/SGPT) 7 U/L (12-78) L Alkaline Phosphatase 201 U/L (46-116) H Total Protein 5.7 G/DL (6.4-8.2) L Albumin 1.5 G/DL (3.4-5.0) L Globulin 4.2 g/dL Albumin/Globulin Ratio 0.4 (1.0-2.7) L Arterial Blood pH 7.444 (7.350-7.450) Arterial Blood Partial Pressure CO2 47.1 mmHg (35.0-45.0) H Arterial Blood Partial Pressure O2 125.7 mmHg (75.0-100.0) H Arterial Blood HCO3 31.6 mmol/L (22.0-26.0) H Arterial Blood Oxygen Saturation 97.6 % (92.0-98.0) Arterial Blood Base Excess 6.6 Bon Test Positive Objective HEAD AND NECK: No JVD.Orally intubated. Right IJ Mahurkar Catheter in place LUNGS: Coarse rhonchi CARDIOVASCULAR: Regular S1 and S2 with no gallop or murmur. ABDOMEN: Soft and nontender and obese. EXTREMITIES: 1+ pitting edema. DEAN SHAW Feb 09, 2017 16:55
--- NOTE | 2017-02-09 19:19 | Internal Med Progress Note ---
Subjective Date of Service: Feb 09, 2017 Physician Name Katharina Pond Attending Physician Rl Tee MD Current Medications Medications (Trade) Dose Ordered Sig/Pavel Route PRN Reason Start Time Stop Time Status Last Admin Dose Admin Acetaminophen (Tylenol) 650 mg Q4H PRN ORAL T>100.5 01/21/17 14:30 02/15/17 14:29 02/05/17 07:41 Chlorhexidine Gluconate (Dianne-Hex 2%) 1 applic DAILY@1999 TOPIC 01/25/17 20:00 02/24/17 19:59 02/08/17 19:43 Clotrimazole (Lotrimin) 1 applic EVERY 12 HOURS TOPIC 01/21/17 21:00 02/18/17 13:59 02/09/17 09:21 Dextrose (Dextrose 50%) STAT PRN IV Hypoglycemia 02/06/17 10:45 03/08/17 10:44 Dopamine HCl/ Dextrose 250 ml @ 0 mls/hr Q24H IV 01/25/17 11:15 02/24/17 11:14 01/30/17 10:30 Hydromorphone HCl (Dilaudid) 0.5 mg Q4H PRN IVP Pain (5-10) 02/09/17 18:00 02/15/17 10:44 Insulin Aspart (NovoLOG) EVERY 4 HOURS SUBQ 02/06/17 12:00 03/08/17 11:59 02/09/17 17:07 Metoclopramide HCl (Reglan) 5 mg Q8H PRN IVP Nausea & Vomiting 01/29/17 11:30 02/28/17 11:29 01/31/17 11:46 Midodrine (Pro-Amatine) 10 mg Q8HR NG 02/03/17 14:00 03/05/17 13:59 02/09/17 15:03 Nitroglycerin (Ntg) 0.4 mg Q5MIN X 3 DOSES PRN SL Prn Chest Pain 01/21/17 14:30 02/15/17 14:29 Nystatin (Nystop Powder) 1 applic THREE TIMES A DAY TOPIC 01/22/17 13:00 02/21/17 12:59 02/09/17 17:09 Ranitidine HCl (Zantac) 150 mg DAILY NG 02/03/17 18:00 03/05/17 17:59 02/09/17 09:21 Rifaximin (Xifaxan) 550 mg EVERY 12 HOURS ORAL 01/29/17 12:00 03/07/17 11:59 02/09/17 09:20 Vancomycin HCl (Vanco rx to dose) 1 ea DAILY PRN MISC Per rx protocol 02/05/17 19:15 03/07/17 19:14 Allergies: Coded Allergies: PENICILLINS (Unverified Allergy, Unknown, 03/22/15) ROS Limited/Unobtainable: Yes Subjective 76 YO F admitted with altered mental status. Intubated and sedated. ICU . Cover for Int Med-Dr Tee. Await tracheostomy on 02/10/17 Objective Last Vital Signs Date Time Temp Pulse Resp B/P (MAP) Pulse Ox O2 Delivery O2 Flow Rate FiO2 02/09/17 19:08 70 20 50 02/09/17 19:00 109/46 99 Mechanical Ventilator 02/09/17 16:00 98.5 02/09/17 11:50 15.0 Laboratory Tests Test 02/09/17 03:30 02/09/17 07:32 White Blood Count 8.5 K/UL (4.8-10.8) Red Blood Count 3.06 M/UL (4.20-5.40) L Hemoglobin 9.2 G/DL (12.0-16.0) L Hematocrit 29.6 % (37.0-47.0) L Mean Corpuscular Volume 97 FL (80-99) Mean Corpuscular Hemoglobin 30.2 PG (27.0-31.0) Mean Corpuscular Hemoglobin Concent 31.1 G/DL (32.0-36.0) L Red Cell Distribution Width 17.5 % (11.6-14.8) H Platelet Count 85 K/UL (150-450) L Mean Platelet Volume 9.9 FL (6.5-10.1) Neutrophils (%) (Auto) % (45.0-75.0) Lymphocytes (%) (Auto) % (20.0-45.0) Monocytes (%) (Auto) % (1.0-10.0) Eosinophils (%) (Auto) % (0.0-3.0) Basophils (%) (Auto) % (0.0-2.0) Differential Total Cells Counted 100 Neutrophils % (Manual) 83 % (45-75) H Lymphocytes % (Manual) 7 % (20-45) L Monocytes % (Manual) 8 % (1-10) Eosinophils % (Manual) 2 % (0-3) Basophils % (Manual) 0 % (0-2) Band Neutrophils 0 % (0-8) Platelet Estimate Decreased L Platelet Morphology Normal Hypochromasia 1+ Anisocytosis 1+ Sodium Level 149 MMOL/L (136-145) H Potassium Level 3.8 MMOL/L (3.5-5.1) Chloride Level 111 MMOL/L (98-107) H Carbon Dioxide Level 32 MMOL/L (21-32) Anion Gap 6 mmol/L (5-15) Blood Urea Nitrogen 47 mg/dL (7-18) H Creatinine 5.3 MG/DL (0.55-1.30) H Estimat Glomerular Filtration Rate mL/min (>60) Glucose Level 259 MG/DL (74-106) H Calcium Level 9.7 MG/DL (8.5-10.1) Phosphorus Level 3.9 MG/DL (2.5-4.9) Magnesium Level 2.0 MG/DL (1.8-2.4) Total Bilirubin 1.6 MG/DL (0.2-1.0) H Direct Bilirubin 0.9 MG/DL (0.0-0.3) H Aspartate Amino Transf (AST/SGOT) 44 U/L (15-37) H Alanine Aminotransferase (ALT/SGPT) 7 U/L (12-78) L Alkaline Phosphatase 201 U/L (46-116) H Total Protein 5.7 G/DL (6.4-8.2) L Albumin 1.5 G/DL (3.4-5.0) L Globulin 4.2 g/dL Albumin/Globulin Ratio 0.4 (1.0-2.7) L Arterial Blood pH 7.444 (7.350-7.450) Arterial Blood Partial Pressure CO2 47.1 mmHg (35.0-45.0) H Arterial Blood Partial Pressure O2 125.7 mmHg (75.0-100.0) H Arterial Blood HCO3 31.6 mmol/L (22.0-26.0) H Arterial Blood Oxygen Saturation 97.6 % (92.0-98.0) Arterial Blood Base Excess 6.6 Bon Test Positive Intake and Output 02/09/17 02/10/17 19:00 07:00 Intake Total 410 ml Output Total 3201 ml Balance -2791 ml Free Water 25 ml Tube Feeding 385 ml Output Urine Total 0 ml Stool Total 200 ml Hemodialysis UF 3001 ml Objective General Appearance: WD/WN, no apparent distress, moderate distress, obese EENT: PERRL/EOMI, normal ENT inspection Neck: non-tender, normal alignment, supple, normal inspection Cardiovascular: normal peripheral pulses, normal rate, regular rhythm, no gallop/murmur, no JVD Respiratory/Chest: Mechanical vent; chest wall non-tender, lungs with coarse upper air sounds, Bilat wheezes and rales, respiratory distress Abdomen: G-Tube; non tender, no organomegaly, no mass Neurologic: back tender insulation board 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 Baumanii. See ID note. Continur ertaoenem and vanco per ID (2) CHF (congestive heart failure) Assessment & Plan: LVEF 60-65%. see cardiology note. (3) DM (diabetes mellitus) Assessment & Plan: Continue novolog sliding scale (4) Hypercholesteremia (5) HTN (hypertension) Assessment & Plan: Currently hypotensive. (6) Uncontrolled diabetes mellitus (7) Cirrhosis Assessment & Plan: see GI note. (8) Anemia Assessment & Plan: S/P transfusion 2 units PRBC (9) Altered mental status Assessment & Plan: Worsening. ICU status (10) Renal failure Assessment & Plan: Next hemodialysis 02/09/17. See nephrology note. (11) Respiratory failure Assessment & Plan: Due to CHF. Cont mech vent per pulmonary-await tracheostomy 02/10/17. Continue antibiotic per ID (12) Bradycardia Assessment & Plan: see cardiology note. (13) Hypotension Assessment & Plan: Continue dopamine Assessment/Plan Await tracheostomy 02/10/17. KATHARINA POND Feb 09, 2017 19:19
[2017-02-09] MEDS: Dyna-Hex 2% Top Sol 2oz TOPIC SCH (20:10)
[2017-02-09] MEDS: Hydromorphone 0.5mg/0.5ml inj IVP PRN (22:18)
--- NOTE | 2017-02-09 22:27 | General Progress Note ---
Assessment/Plan Assessment/Plan ASSESSMENT AND RECOMMENDATIONS 1.Thrombocytopenia 2/2 sepsis --> improving --> give plts if below 10k or if below 20k and febrile --> ID following 2. 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 Thrombocytopenia secondary to underlying splenomegaly. 4. Anemia 2/2 chronic disease --> Watch HH, transfuse if below 8 5. Leukocytosis secondary to underlying infection. On abx per id service 6. Sepsis 2/2 UTI 7. Altered mental status 8. RAMYA on CKD,on hemodialysis Subjective ROS Limited/Unobtainable: Yes Allergies: Coded Allergies: PENICILLINS (Unverified Allergy, Unknown, 03/22/15) Subjective NAD Objective Last 24 Hour Vital Signs Date Time Temp Pulse Resp B/P (MAP) Pulse Ox O2 Delivery O2 Flow Rate FiO2 02/09/17 20:55 86 20 50 02/09/17 20:00 50 02/09/17 19:08 70 20 50 02/09/17 19:00 79 20 109/46 99 Mechanical Ventilator 50 02/09/17 18:00 75 19 110/48 98 Mechanical Ventilator 50 02/09/17 17:04 63 20 50 02/09/17 17:00 75 19 102/48 99 Mechanical Ventilator 50 02/09/17 16:00 50 02/09/17 16:00 70 02/09/17 16:00 98.5 86 20 122/51 100 Mechanical Ventilator 50 02/09/17 15:00 89 20 105/54 99 Mechanical Ventilator 50 02/09/17 14:59 64 20 50 02/09/17 14:00 88 20 102/56 100 Mechanical Ventilator 50 02/09/17 13:00 97 20 112/51 97 Mechanical Ventilator 50 02/09/17 12:50 62 20 50 02/09/17 12:00 102 02/09/17 12:00 94 23 113/71 96 Mechanical Ventilator 50 02/09/17 12:00 50 02/09/17 11:50 Mechanical Ventilator 15.0 50 02/09/17 11:25 60 20 50 02/09/17 11:15 127/59 02/09/17 11:00 96 21 112/51 97 Mechanical Ventilator 50 02/09/17 10:00 98.6 80 20 116/50 97 Mechanical Ventilator 50 02/09/17 09:00 84 21 88/65 96 Mechanical Ventilator 50 02/09/17 08:54 59 20 50 02/09/17 08:33 Mechanical Ventilator 15.0 50 02/09/17 08:00 64 02/09/17 08:00 64 20 117/56 99 Mechanical Ventilator 50 02/09/17 08:00 50 02/09/17 07:00 59 20 116/56 99 Mechanical Ventilator 50 02/09/17 06:53 55 20 50 02/09/17 06:00 63 20 98/44 99 Mechanical Ventilator 50 02/09/17 05:16 78 50 02/09/17 05:00 74 20 93/78 99 Mechanical Ventilator 50 02/09/17 04:00 81 02/09/17 04:00 50 02/09/17 04:00 98.7 70 19 93/37 100 Mechanical Ventilator 50 02/09/17 03:10 78 18 50 02/09/17 03:00 66 20 97/39 99 Mechanical Ventilator 50 02/09/17 02:00 72 20 92/45 99 Mechanical Ventilator 50 02/09/17 01:00 72 20 95/42 99 Mechanical Ventilator 50 02/09/17 00:57 65 18 50 02/09/17 00:00 98.3 69 18 93/54 100 Mechanical Ventilator 50 02/09/17 00:00 50 02/09/17 00:00 77 02/08/17 23:17 63 18 50 02/08/17 23:00 64 20 104/41 99 Mechanical Ventilator 50 Intake and Output 02/09/17 02/10/17 19:00 07:00 Intake Total 410 ml Output Total 3201 ml Balance -2791 ml Free Water 25 ml Tube Feeding 385 ml Output Urine Total 0 ml Stool Total 200 ml Hemodialysis UF 3001 ml Laboratory Tests 02/09/17 03:30: White Blood Count 8.5, Red Blood Count 3.06L, Hemoglobin 9.2L, Hematocrit 29.6L , Mean Corpuscular Volume 97, Mean Corpuscular Hemoglobin 30.2, Mean Corpuscular Hemoglobin Concent 31.1L, Red Cell Distribution Width 17.5H, Platelet Count 85L, Mean Platelet Volume 9.9, Neutrophils (%) (Auto) , Lymphocytes (%) (Auto) , Monocytes (%) (Auto) , Eosinophils (%) (Auto) , Basophils (%) (Auto) , Differential Total Cells Counted 100, Neutrophils % ( Manual) 83H, Lymphocytes % (Manual) 7L, Monocytes % (Manual) 8, Eosinophils % ( Manual) 2, Basophils % (Manual) 0, Band Neutrophils 0, Platelet Estimate DecreasedL, Platelet Morphology Normal, Hypochromasia 1+, Anisocytosis 1+, Sodium Level 149H, Potassium Level 3.8, Chloride Level 111H, Carbon Dioxide Level 32, Anion Gap 6, Blood Urea Nitrogen 47H, Creatinine 5.3H, Estimat Glomerular Filtration Rate , Glucose Level 259H, Calcium Level 9.7, Phosphorus Level 3.9, Magnesium Level 2.0, Total Bilirubin 1.6H, Direct Bilirubin 0.9H, Aspartate Amino Transf (AST/SGOT) 44H, Alanine Aminotransferase (ALT/SGPT) 7L, Alkaline Phosphatase 201H, Total Protein 5.7L, Albumin 1.5L, Globulin 4.2, Albumin/Globulin Ratio 0.4L 02/09/17 07:32: Arterial Blood pH 7.444, Arterial Blood Partial Pressure CO2 47.1H, Arterial Blood Partial Pressure O2 125.7H, Arterial Blood HCO3 31.6H, Arterial Blood Oxygen Saturation 97.6, Arterial Blood Base Excess 6.6, Bon Test Positive Height (Feet): 5 Height (Inches): 6.00 Weight (Pounds): 256 General Appearance: no apparent distress EENT: PERRL/EOMI Neck: normal alignment Cardiovascular: normal rate Extremities: no calf tenderness Edema: mild edema 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
--- NOTE | 2017-02-09 22:37 | General Progress Note ---
Assessment/Plan Assessment/Plan encephalopathy Subjective Allergies: Coded Allergies: PENICILLINS (Unverified Allergy, Unknown, 03/22/15) Subjective waxing and waning of consciousness.agitated at times unchanged since previous encounter Objective Last 24 Hour Vital Signs Date Time Temp Pulse Resp B/P (MAP) Pulse Ox O2 Delivery O2 Flow Rate FiO2 02/09/17 20:55 86 20 50 02/09/17 20:00 50 02/09/17 19:08 70 20 50 02/09/17 19:00 79 20 109/46 99 Mechanical Ventilator 50 02/09/17 18:00 75 19 110/48 98 Mechanical Ventilator 50 02/09/17 17:04 63 20 50 02/09/17 17:00 75 19 102/48 99 Mechanical Ventilator 50 02/09/17 16:00 50 02/09/17 16:00 70 02/09/17 16:00 98.5 86 20 122/51 100 Mechanical Ventilator 50 02/09/17 15:00 89 20 105/54 99 Mechanical Ventilator 50 02/09/17 14:59 64 20 50 02/09/17 14:00 88 20 102/56 100 Mechanical Ventilator 50 02/09/17 13:00 97 20 112/51 97 Mechanical Ventilator 50 02/09/17 12:50 62 20 50 02/09/17 12:00 102 02/09/17 12:00 94 23 113/71 96 Mechanical Ventilator 50 02/09/17 12:00 50 02/09/17 11:50 Mechanical Ventilator 15.0 50 02/09/17 11:25 60 20 50 02/09/17 11:15 127/59 02/09/17 11:00 96 21 112/51 97 Mechanical Ventilator 50 02/09/17 10:00 98.6 80 20 116/50 97 Mechanical Ventilator 50 02/09/17 09:00 84 21 88/65 96 Mechanical Ventilator 50 02/09/17 08:54 59 20 50 02/09/17 08:33 Mechanical Ventilator 15.0 50 02/09/17 08:00 64 02/09/17 08:00 64 20 117/56 99 Mechanical Ventilator 50 02/09/17 08:00 50 02/09/17 07:00 59 20 116/56 99 Mechanical Ventilator 50 02/09/17 06:53 55 20 50 02/09/17 06:00 63 20 98/44 99 Mechanical Ventilator 50 02/09/17 05:16 78 50 02/09/17 05:00 74 20 93/78 99 Mechanical Ventilator 50 02/09/17 04:00 81 02/09/17 04:00 50 02/09/17 04:00 98.7 70 19 93/37 100 Mechanical Ventilator 50 02/09/17 03:10 78 18 50 02/09/17 03:00 66 20 97/39 99 Mechanical Ventilator 50 02/09/17 02:00 72 20 92/45 99 Mechanical Ventilator 50 02/09/17 01:00 72 20 95/42 99 Mechanical Ventilator 50 02/09/17 00:57 65 18 50 02/09/17 00:00 98.3 69 18 93/54 100 Mechanical Ventilator 50 02/09/17 00:00 50 02/09/17 00:00 77 02/08/17 23:17 63 18 50 02/08/17 23:00 64 20 104/41 99 Mechanical Ventilator 50 Intake and Output 02/09/17 02/10/17 19:00 07:00 Intake Total 410 ml Output Total 3201 ml Balance -2791 ml Free Water 25 ml Tube Feeding 385 ml Output Urine Total 0 ml Stool Total 200 ml Hemodialysis UF 3001 ml Laboratory Tests 02/09/17 03:30: White Blood Count 8.5, Red Blood Count 3.06L, Hemoglobin 9.2L, Hematocrit 29.6L , Mean Corpuscular Volume 97, Mean Corpuscular Hemoglobin 30.2, Mean Corpuscular Hemoglobin Concent 31.1L, Red Cell Distribution Width 17.5H, Platelet Count 85L, Mean Platelet Volume 9.9, Neutrophils (%) (Auto) , Lymphocytes (%) (Auto) , Monocytes (%) (Auto) , Eosinophils (%) (Auto) , Basophils (%) (Auto) , Differential Total Cells Counted 100, Neutrophils % ( Manual) 83H, Lymphocytes % (Manual) 7L, Monocytes % (Manual) 8, Eosinophils % ( Manual) 2, Basophils % (Manual) 0, Band Neutrophils 0, Platelet Estimate DecreasedL, Platelet Morphology Normal, Hypochromasia 1+, Anisocytosis 1+, Sodium Level 149H, Potassium Level 3.8, Chloride Level 111H, Carbon Dioxide Level 32, Anion Gap 6, Blood Urea Nitrogen 47H, Creatinine 5.3H, Estimat Glomerular Filtration Rate , Glucose Level 259H, Calcium Level 9.7, Phosphorus Level 3.9, Magnesium Level 2.0, Total Bilirubin 1.6H, Direct Bilirubin 0.9H, Aspartate Amino Transf (AST/SGOT) 44H, Alanine Aminotransferase (ALT/SGPT) 7L, Alkaline Phosphatase 201H, Total Protein 5.7L, Albumin 1.5L, Globulin 4.2, Albumin/Globulin Ratio 0.4L 02/09/17 07:32: Arterial Blood pH 7.444, Arterial Blood Partial Pressure CO2 47.1H, Arterial Blood Partial Pressure O2 125.7H, Arterial Blood HCO3 31.6H, Arterial Blood Oxygen Saturation 97.6, Arterial Blood Base Excess 6.6, Bon Test Positive Height (Feet): 5 Height (Inches): 6.00 Weight (Pounds): 256 Oj Medel M.D. Feb 09, 2017 22:37
--- NOTE | 2017-02-09 22:58 | General Progress Note ---
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 Recommendations - continue off of lactulose - continue Xifaxan - Continue TF - follow labs - HD/lytes per Renal - free water - await trach - will need PEG to follow - check ultrasound to evaluate for presence of ascites. Subjective Allergies: Coded Allergies: PENICILLINS (Unverified Allergy, Unknown, 03/22/15) Subjective above noted d/w RN tolerating TF less diarrhea for trach tomorrow Objective Last 24 Hour Vital Signs Date Time Temp Pulse Resp B/P (MAP) Pulse Ox O2 Delivery O2 Flow Rate FiO2 02/09/17 20:55 86 20 50 02/09/17 20:00 50 02/09/17 19:08 70 20 50 02/09/17 19:00 79 20 109/46 99 Mechanical Ventilator 50 02/09/17 18:00 75 19 110/48 98 Mechanical Ventilator 50 02/09/17 17:04 63 20 50 02/09/17 17:00 75 19 102/48 99 Mechanical Ventilator 50 02/09/17 16:00 50 02/09/17 16:00 70 02/09/17 16:00 98.5 86 20 122/51 100 Mechanical Ventilator 50 02/09/17 15:00 89 20 105/54 99 Mechanical Ventilator 50 02/09/17 14:59 64 20 50 02/09/17 14:00 88 20 102/56 100 Mechanical Ventilator 50 02/09/17 13:00 97 20 112/51 97 Mechanical Ventilator 50 02/09/17 12:50 62 20 50 02/09/17 12:00 102 02/09/17 12:00 94 23 113/71 96 Mechanical Ventilator 50 02/09/17 12:00 50 02/09/17 11:50 Mechanical Ventilator 15.0 50 02/09/17 11:25 60 20 50 02/09/17 11:15 127/59 02/09/17 11:00 96 21 112/51 97 Mechanical Ventilator 50 02/09/17 10:00 98.6 80 20 116/50 97 Mechanical Ventilator 50 02/09/17 09:00 84 21 88/65 96 Mechanical Ventilator 50 02/09/17 08:54 59 20 50 02/09/17 08:33 Mechanical Ventilator 15.0 50 02/09/17 08:00 64 02/09/17 08:00 64 20 117/56 99 Mechanical Ventilator 50 02/09/17 08:00 50 02/09/17 07:00 59 20 116/56 99 Mechanical Ventilator 50 02/09/17 06:53 55 20 50 02/09/17 06:00 63 20 98/44 99 Mechanical Ventilator 50 02/09/17 05:16 78 50 02/09/17 05:00 74 20 93/78 99 Mechanical Ventilator 50 02/09/17 04:00 81 02/09/17 04:00 50 02/09/17 04:00 98.7 70 19 93/37 100 Mechanical Ventilator 50 02/09/17 03:10 78 18 50 02/09/17 03:00 66 20 97/39 99 Mechanical Ventilator 50 02/09/17 02:00 72 20 92/45 99 Mechanical Ventilator 50 02/09/17 01:00 72 20 95/42 99 Mechanical Ventilator 50 02/09/17 00:57 65 18 50 02/09/17 00:00 98.3 69 18 93/54 100 Mechanical Ventilator 50 02/09/17 00:00 50 02/09/17 00:00 77 02/08/17 23:17 63 18 50 02/08/17 23:00 64 20 104/41 99 Mechanical Ventilator 50 Intake and Output 02/09/17 02/10/17 19:00 07:00 Intake Total 410 ml Output Total 3201 ml Balance -2791 ml Free Water 25 ml Tube Feeding 385 ml Output Urine Total 0 ml Stool Total 200 ml Hemodialysis UF 3001 ml Laboratory Tests 02/09/17 03:30: White Blood Count 8.5, Red Blood Count 3.06L, Hemoglobin 9.2L, Hematocrit 29.6L , Mean Corpuscular Volume 97, Mean Corpuscular Hemoglobin 30.2, Mean Corpuscular Hemoglobin Concent 31.1L, Red Cell Distribution Width 17.5H, Platelet Count 85L, Mean Platelet Volume 9.9, Neutrophils (%) (Auto) , Lymphocytes (%) (Auto) , Monocytes (%) (Auto) , Eosinophils (%) (Auto) , Basophils (%) (Auto) , Differential Total Cells Counted 100, Neutrophils % ( Manual) 83H, Lymphocytes % (Manual) 7L, Monocytes % (Manual) 8, Eosinophils % ( Manual) 2, Basophils % (Manual) 0, Band Neutrophils 0, Platelet Estimate DecreasedL, Platelet Morphology Normal, Hypochromasia 1+, Anisocytosis 1+, Sodium Level 149H, Potassium Level 3.8, Chloride Level 111H, Carbon Dioxide Level 32, Anion Gap 6, Blood Urea Nitrogen 47H, Creatinine 5.3H, Estimat Glomerular Filtration Rate , Glucose Level 259H, Calcium Level 9.7, Phosphorus Level 3.9, Magnesium Level 2.0, Total Bilirubin 1.6H, Direct Bilirubin 0.9H, Aspartate Amino Transf (AST/SGOT) 44H, Alanine Aminotransferase (ALT/SGPT) 7L, Alkaline Phosphatase 201H, Total Protein 5.7L, Albumin 1.5L, Globulin 4.2, Albumin/Globulin Ratio 0.4L 02/09/17 07:32: Arterial Blood pH 7.444, Arterial Blood Partial Pressure CO2 47.1H, Arterial Blood Partial Pressure O2 125.7H, Arterial Blood HCO3 31.6H, Arterial Blood Oxygen Saturation 97.6, Arterial Blood Base Excess 6.6, Bon Test Positive Height (Feet): 5 Height (Inches): 6.00 Weight (Pounds): 256 Objective Obese WW NCAT, (+) ETT and NGT supple CTA RRR soft ND NT (+) edema confused KIERSTEN DAVIES Feb 09, 2017 22:58
[2017-02-10] VITALS (24 sets, daily range): BP systolic 92–135; BP diastolic 33–82
[2017-02-10] MEDS: NovoLOG Insulin Flexpen SUBQ SCH ×6 (01:05→21:27)
[2017-02-10] MEDS: Hydromorphone 0.5mg/0.5ml inj IVP PRN ×2 (05:05→20:34)
[2017-02-10 05:57] LABS: HEMATOCRIT 29.8 % (37.0-47.0); HEMOGLOBIN 9.4 G/DL (12.0-16.0); MEAN CORPUSCULAR VOLUME 99 FL (80-99); PLATELET COUNT 77 K/UL (150-450); RED BLOOD COUNT 3.01 M/UL (4.20-5.40); RED CELL DISTRIBUTION WIDTH 18.5 % (11.6-14.8); WHITE BLOOD COUNT 8.3 K/UL (4.8-10.8)
[2017-02-10] MEDS: Midodrine 10mg tab NG SCH ×3 (06:23→21:32)
[2017-02-10 06:40] LABS: ALANINE AMINOTRANSFERASE 6 U/L (12-78); ALBUMIN 1.6 G/DL (3.4-5.0); ALBUMIN/GLOBULIN RATIO 0.4 (1.0-2.7); ALKALINE PHOSPHATASE 234 U/L (46-116); ANION GAP 7 mmol/L (5-15); ASPARTATE AMINO TRANSFERASE 43 U/L (15-37); BILIRUBIN,TOTAL 1.7 MG/DL (0.2-1.0); BLOOD UREA NITROGEN 30 mg/dL (7-18); CALCIUM 9.9 MG/DL (8.5-10.1); CARBON DIOXIDE 32 MMOL/L (21-32); CHLORIDE 110 MMOL/L (98-107); CREATININE 3.8 MG/DL (0.55-1.30); PHOSPHORUS 3.1 MG/DL (2.5-4.9); POTASSIUM 3.5 MMOL/L (3.5-5.1); SODIUM 149 MMOL/L (136-145)
[2017-02-10 06:45] LABS: BILIRUBIN,DIRECT 0.9 MG/DL (0.0-0.3)
[2017-02-10] MEDS: Nystatin Powder 100,000 units/gm 15gm TOPIC SCH ×3 (09:12→17:17)
--- NOTE | 2017-02-10 09:50 | Infectious Diseases Prog Note ---
Assessment/Plan Assessment/Plan Assesment: Encephalopathy- possibly multifactorial- hepatic encephalopathy, infection- worsening now due to hypercapnea (transferred to ICU 01/21), on bipap> intubated Acute respiratory failure 2ry to hypercapnea, PNA; now ARDS - self-extubated, re -intubated 02/04] -CXR 02/09: diffuse bilateral interstitial and airspace disease -CXR 02/04: Pulmonary parenchymal disease, likely ARDS, overall stable Sepsis 2ry to PNA and Bacteremia, SP HCAP 2ry to ESBL. E.coli, s/p Rx -CXR 02/08: . Extensive bilateral mixed interstitial alveolar lung opacities again noted. -CXR 02/02: Diffuse extensive interstitial and alveolar pulmonary parenchymal disease is unchanged. -repeat sp cx 01/26: +4 MDR A.baumani (I Ceftazidime, R to carbapenem and aminoglycosides, Minocycline; S to Colistin, Polymyxin B) suspect Colonizer ( improving not on tx)-s/p INH Colistin Tx -Sp cx 01/22: +2 ESBK E.coli, +2 C. albicans (colonizer) -CrAg neg, cocci ab pending MRSA bacteremia- with repeat Bcx growing CoNS (?contaminant vs real). BCx cleared 01/26 SP Rx -01/16 04/23 BCx MRSA (S. Vanco JOSE A 1), repeat Bcx 01/19 Neg, 01/21 04/23 CoNS ( contaminant), 01/24 Bcx 04/23 CoNs, Bcx 01/26 Neg x4, 01/28 BCx neg -TTE 01/19(limited study): No aortic regurgitation.Trace mitral regurgitation.Mitral diastolic velocities suggest reduced left ventricular relaxation c/w diastolic dysfunction grade. Moderate tricuspid regurgitation. Leukocytosis, previously worsened up to 24, now recurrent, mild, worsening, new fever r/o new KRISHAN ?aspiration event 02/04- now resolved -Bcx 02/05, NTD; Sp cx 02/06 C. albicans (colonizer) -01/26. pyuria improving (WBC 10-15); ucx C. albicans (colonizer) -10/5 u/a WBC 30-40, ucx yeast (colonizer) -Sp cx ESBL E.coli, diaz (colonizer) Elevated LFTs, improving -[facility] hep panel neg Probable MDR UTI, pyuria, s/p Rx -u/a 01/16 WBC too many to count,nit neg ,leuk est +3; UCx x3 grew >100K MDR A.baumani complex (S. tigecycline/Minocycline, Polymixin B/Colistin), >100K PsA (S. Cefepime, Zosyn; R Cipro/Levo); a prior isolated on a ucx from the same day isolated MDR PsA (I. Cefepime, R ceftzadime, Meropenem; S. Tygecicine, amikacin) -renal u/s: Nondiagnostic exam Metabolic acidosis, 2ry to renal failure- now improved after initiation of HD 01/28 RAMYA on CKD, started on HD 01/28 Cirrhosis Anemia & thrombocytopenia DM type 2 Morbid obesity DNR PLAN: -Continue IV vancomycin d# 6/7 ( given worsening leukocytosis, new fever ) -monitor closely; if HD decompensation add IV Colistin -continue prophylactic PO Vancomycin #18 -s/p 19d Ertapenem 02/09 -s/p 10d INH Colistin 02/07 for MDR ABC in sputum -02/03 s/p IV Vancomycin #15/14 -s/p 1 dose Amikacin /11 -s/p 7d Cefepime 10/7 -s/p 3d Amikacin 10/7 -s/p 7d Minocycline 10/7 -s/p 3d IV vanco 10/ -f/u repeat Bcx, cocci ab monitor CBC, temperatures monitor BMP monitor CXR vent support, trach eventually Discussed with RN. Poor px; critically ill Subjective Allergies: Coded Allergies: PENICILLINS (Unverified Allergy, Unknown, 03/22/15) Subjective afebrile unchanged lung opacities Bcx NTD leukocytosis resolved. Objective Vital Signs Last 24 Hour Vital Signs Date Time Temp Pulse Resp B/P (MAP) Pulse Ox O2 Delivery O2 Flow Rate FiO2 02/10/17 09:06 91 20 50 02/10/17 08:00 40 02/10/17 07:00 70 20 135/48 95 Mechanical Ventilator 40 02/10/17 06:38 83 20 50 02/10/17 05:48 98.6 81 20 122/82 95 Mechanical Ventilator 40 02/10/17 05:11 75 20 50 02/10/17 05:00 70 20 130/48 95 Mechanical Ventilator 40 02/10/17 04:00 98.6 81 20 122/82 95 Mechanical Ventilator 40 02/10/17 04:00 81 02/10/17 04:00 50 02/10/17 03:00 84 19 125/60 95 Mechanical Ventilator 40 02/10/17 02:36 80 20 50 02/10/17 02:00 82 20 133/50 97 Mechanical Ventilator 40 02/10/17 01:00 78 19 117/49 97 Mechanical Ventilator 40 02/10/17 00:56 58 20 50 02/10/17 00:00 98.4 65 17 102/43 97 Mechanical Ventilator 40 02/10/17 00:00 67 02/09/17 23:16 73 20 50 02/09/17 23:00 72 19 126/61 97 Mechanical Ventilator 40 02/09/17 22:00 83 18 112/47 95 Mechanical Ventilator 40 02/09/17 21:00 73 19 118/47 95 Mechanical Ventilator 40 02/09/17 20:55 86 20 50 02/09/17 20:00 50 02/09/17 20:00 66 02/09/17 20:00 98.2 66 18 106/44 100 Mechanical Ventilator 40 02/09/17 19:08 70 20 50 02/09/17 19:00 79 20 109/46 99 Mechanical Ventilator 50 02/09/17 18:00 75 19 110/48 98 Mechanical Ventilator 50 02/09/17 17:04 63 20 50 02/09/17 17:00 75 19 102/48 99 Mechanical Ventilator 50 02/09/17 16:00 50 02/09/17 16:00 70 02/09/17 16:00 98.5 86 20 122/51 100 Mechanical Ventilator 50 02/09/17 15:00 89 20 105/54 99 Mechanical Ventilator 50 02/09/17 14:59 64 20 50 02/09/17 14:00 88 20 102/56 100 Mechanical Ventilator 50 02/09/17 13:00 97 20 112/51 97 Mechanical Ventilator 50 02/09/17 12:50 62 20 50 02/09/17 12:00 102 02/09/17 12:00 94 23 113/71 96 Mechanical Ventilator 50 02/09/17 12:00 50 02/09/17 11:50 Mechanical Ventilator 15.0 50 02/09/17 11:25 60 20 50 02/09/17 11:15 127/59 02/09/17 11:00 96 21 112/51 97 Mechanical Ventilator 50 02/09/17 10:00 98.6 80 20 116/50 97 Mechanical Ventilator 50 Height (Feet): 5 Height (Inches): 6.00 Weight (Pounds): 254 Objective HEENT: No pale conjunctivae. No icterus.ETT in place NECK: No lymphadenopathy. CHEST: coarse breath sounds HEART: S1 and S2. ABDOMEN: Soft and obese. EXTREMITIES: No cyanosis. NEUROLOGIC: lethargic. Skin: no rashes reviewed Laboratory Tests Test 02/10/17 05:00 White Blood Count 8.3 K/UL (4.8-10.8) Red Blood Count 3.01 M/UL (4.20-5.40) L Hemoglobin 9.4 G/DL (12.0-16.0) L Hematocrit 29.8 % (37.0-47.0) L Mean Corpuscular Volume 99 FL (80-99) Mean Corpuscular Hemoglobin 31.4 PG (27.0-31.0) H Mean Corpuscular Hemoglobin Concent 31.7 G/DL (32.0-36.0) L Red Cell Distribution Width 18.5 % (11.6-14.8) H Platelet Count 77 K/UL (150-450) L Mean Platelet Volume 11.1 FL (6.5-10.1) H Neutrophils (%) (Auto) % (45.0-75.0) Lymphocytes (%) (Auto) % (20.0-45.0) Monocytes (%) (Auto) % (1.0-10.0) Eosinophils (%) (Auto) % (0.0-3.0) Basophils (%) (Auto) % (0.0-2.0) Differential Total Cells Counted 100 Neutrophils % (Manual) 78 % (45-75) H Lymphocytes % (Manual) 10 % (20-45) L Monocytes % (Manual) 5 % (1-10) Eosinophils % (Manual) 5 % (0-3) H Basophils % (Manual) 1 % (0-2) Band Neutrophils 1 % (0-8) Platelet Estimate Decreased L Platelet Morphology Normal Hypochromasia 1+ Anisocytosis 2+ Macrocytosis 1+ Sodium Level 149 MMOL/L (136-145) H Potassium Level 3.5 MMOL/L (3.5-5.1) Chloride Level 110 MMOL/L (98-107) H Carbon Dioxide Level 32 MMOL/L (21-32) Anion Gap 7 mmol/L (5-15) Blood Urea Nitrogen 30 mg/dL (7-18) H Creatinine 3.8 MG/DL (0.55-1.30) H Estimat Glomerular Filtration Rate mL/min (>60) Glucose Level 251 MG/DL (74-106) H Calcium Level 9.9 MG/DL (8.5-10.1) Phosphorus Level 3.1 MG/DL (2.5-4.9) Magnesium Level 2.0 MG/DL (1.8-2.4) Total Bilirubin 1.7 MG/DL (0.2-1.0) H Direct Bilirubin 0.9 MG/DL (0.0-0.3) H Aspartate Amino Transf (AST/SGOT) 43 U/L (15-37) H Alanine Aminotransferase (ALT/SGPT) 6 U/L (12-78) L Alkaline Phosphatase 234 U/L (46-116) H Total Protein 6.1 G/DL (6.4-8.2) L Albumin 1.6 G/DL (3.4-5.0) L Globulin 4.5 g/dL Albumin/Globulin Ratio 0.4 (1.0-2.7) L Random Vancomycin Level 18.1 ug/mL HIV (1&2) Antibody Rapid Negative (NEGATIVE) Current Medications Medications (Trade) Dose Ordered Sig/Pavel Route PRN Reason Start Time Stop Time Status Last Admin Dose Admin Acetaminophen (Tylenol) 650 mg Q4H PRN ORAL T>100.5 01/21/17 14:30 02/15/17 14:29 02/05/17 07:41 Chlorhexidine Gluconate (Dianne-Hex 2%) 1 applic DAILY@1999 TOPIC 01/25/17 20:00 02/24/17 19:59 02/09/17 20:10 Clotrimazole (Lotrimin) 1 applic EVERY 12 HOURS TOPIC 01/21/17 21:00 02/18/17 13:59 02/10/17 09:11 Dextrose (Dextrose 50%) STAT PRN IV Hypoglycemia 02/06/17 10:45 03/08/17 10:44 Dopamine HCl/ Dextrose 250 ml @ 0 mls/hr Q24H IV 01/25/17 11:15 02/24/17 11:14 01/30/17 10:30 Hydromorphone HCl (Dilaudid) 0.5 mg Q4H PRN IVP Pain (5-10) 02/09/17 18:00 02/15/17 10:44 02/10/17 05:05 Insulin Aspart (NovoLOG) EVERY 4 HOURS SUBQ 02/06/17 12:00 03/08/17 11:59 02/10/17 09:13 Metoclopramide HCl (Reglan) 5 mg Q8H PRN IVP Nausea & Vomiting 01/29/17 11:30 02/28/17 11:29 01/31/17 11:46 Midodrine (Pro-Amatine) 10 mg Q8HR NG 02/03/17 14:00 03/05/17 13:59 02/10/17 06:23 Nitroglycerin (Ntg) 0.4 mg Q5MIN X 3 DOSES PRN SL Prn Chest Pain 01/21/17 14:30 02/15/17 14:29 Nystatin (Nystop Powder) 1 applic THREE TIMES A DAY TOPIC 01/22/17 13:00 02/21/17 12:59 02/10/17 09:12 Ranitidine HCl (Zantac) 150 mg DAILY NG 02/03/17 18:00 03/05/17 17:59 02/10/17 09:11 Rifaximin (Xifaxan) 550 mg EVERY 12 HOURS ORAL 01/29/17 12:00 03/07/17 11:59 02/10/17 09:11 Vancomycin HCl (Vanco rx to dose) 1 ea DAILY PRN MISC Per rx protocol 02/05/17 19:15 03/07/17 19:14 Vancomycin HCl 1 gm/Dextrose 275 ml @ 183.708 mls/hr ONCE ONCE IVPB 02/10/17 13:00 02/10/17 14:29 Nereyda Monroe M.D. Feb 10, 2017 09:50
[2017-02-10 10:19] LABS: INR 1.3 (0.9-1.1)
--- NOTE | 2017-02-10 10:26 | Pulmonolgy Critical Care Note ---
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 Respiratory: monitor respiratory rate, CXR Cardiac: continue to monitor HR/BP Renal: F/U I&O, keep IV fluid Infectious Disease: check cultures Gastrointestinal: continue feedings/current rate Endocrine: monitor blood sugar, check TSH, continue sliding scale insulin Hematologic: monitor H/H, transfuse if hgb<8.5 Neurologic: PRN Ativan, keep patient comfortable Affect: PRN ativan Time Spent (Minutes): 40 Notes Reviewed: renal Discussed with: nurses, consultants, 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 - Objective Last 24 Hour Vital Signs Date Time Temp Pulse Resp B/P (MAP) Pulse Ox O2 Delivery O2 Flow Rate FiO2 02/10/17 09:06 91 20 50 02/10/17 08:00 40 02/10/17 07:00 70 20 135/48 95 Mechanical Ventilator 40 02/10/17 06:38 83 20 50 02/10/17 05:48 98.6 81 20 122/82 95 Mechanical Ventilator 40 02/10/17 05:11 75 20 50 02/10/17 05:00 70 20 130/48 95 Mechanical Ventilator 40 02/10/17 04:00 98.6 81 20 122/82 95 Mechanical Ventilator 40 02/10/17 04:00 81 02/10/17 04:00 50 02/10/17 03:00 84 19 125/60 95 Mechanical Ventilator 40 02/10/17 02:36 80 20 50 02/10/17 02:00 82 20 133/50 97 Mechanical Ventilator 40 02/10/17 01:00 78 19 117/49 97 Mechanical Ventilator 40 02/10/17 00:56 58 20 50 02/10/17 00:00 98.4 65 17 102/43 97 Mechanical Ventilator 40 02/10/17 00:00 67 02/09/17 23:16 73 20 50 02/09/17 23:00 72 19 126/61 97 Mechanical Ventilator 40 02/09/17 22:00 83 18 112/47 95 Mechanical Ventilator 40 02/09/17 21:00 73 19 118/47 95 Mechanical Ventilator 40 02/09/17 20:55 86 20 50 02/09/17 20:00 50 02/09/17 20:00 66 02/09/17 20:00 98.2 66 18 106/44 100 Mechanical Ventilator 40 02/09/17 19:08 70 20 50 02/09/17 19:00 79 20 109/46 99 Mechanical Ventilator 50 02/09/17 18:00 75 19 110/48 98 Mechanical Ventilator 50 02/09/17 17:04 63 20 50 02/09/17 17:00 75 19 102/48 99 Mechanical Ventilator 50 02/09/17 16:00 50 02/09/17 16:00 70 02/09/17 16:00 98.5 86 20 122/51 100 Mechanical Ventilator 50 02/09/17 15:00 89 20 105/54 99 Mechanical Ventilator 50 02/09/17 14:59 64 20 50 02/09/17 14:00 88 20 102/56 100 Mechanical Ventilator 50 02/09/17 13:00 97 20 112/51 97 Mechanical Ventilator 50 02/09/17 12:50 62 20 50 02/09/17 12:00 102 02/09/17 12:00 94 23 113/71 96 Mechanical Ventilator 50 02/09/17 12:00 50 02/09/17 11:50 Mechanical Ventilator 15.0 50 02/09/17 11:25 60 20 50 02/09/17 11:15 127/59 02/09/17 11:00 96 21 112/51 97 Mechanical Ventilator 50 Status: sedated Condition: critical HEENT: atraumatic Lungs: clear Heart: HR/BP stable Abdomen: soft, active bowel sounds Extremities: no C/C/E, edema Decubiti: stage Accucheck: 251 Critical Care - Subjective ROS Limited/Unobtainable: Yes Interval Events: dialyzed yesterday, 3/1 liters removed. scheduled for trach tomorrow. FI02: 50 Vent Support Breath Rate: 20 Vent Support Mode: AC Vent Tidal Volume: 650 Sputum Amount: Small PEEP: 0.0 PIP: 46 Tube Feeding Amount: 35 I&O: Intake and Output 02/10/17 02/11/17 19:00 07:00 Intake Total 120 ml Balance 120 ml Free Water 50 ml Tube Feeding 70 ml CXR: no change ET-Tube: 7.0 ET Position: 20 Labs: Laboratory Tests Test 02/10/17 05:00 02/10/17 10:00 White Blood Count 8.3 K/UL (4.8-10.8) Red Blood Count 3.01 M/UL (4.20-5.40) L Hemoglobin 9.4 G/DL (12.0-16.0) L Hematocrit 29.8 % (37.0-47.0) L Mean Corpuscular Volume 99 FL (80-99) Mean Corpuscular Hemoglobin 31.4 PG (27.0-31.0) H Mean Corpuscular Hemoglobin Concent 31.7 G/DL (32.0-36.0) L Red Cell Distribution Width 18.5 % (11.6-14.8) H Platelet Count 77 K/UL (150-450) L Mean Platelet Volume 11.1 FL (6.5-10.1) H Neutrophils (%) (Auto) % (45.0-75.0) Lymphocytes (%) (Auto) % (20.0-45.0) Monocytes (%) (Auto) % (1.0-10.0) Eosinophils (%) (Auto) % (0.0-3.0) Basophils (%) (Auto) % (0.0-2.0) Differential Total Cells Counted 100 Neutrophils % (Manual) 78 % (45-75) H Lymphocytes % (Manual) 10 % (20-45) L Monocytes % (Manual) 5 % (1-10) Eosinophils % (Manual) 5 % (0-3) H Basophils % (Manual) 1 % (0-2) Band Neutrophils 1 % (0-8) Platelet Estimate Decreased L Platelet Morphology Normal Hypochromasia 1+ Anisocytosis 2+ Macrocytosis 1+ Sodium Level 149 MMOL/L (136-145) H Potassium Level 3.5 MMOL/L (3.5-5.1) Chloride Level 110 MMOL/L (98-107) H Carbon Dioxide Level 32 MMOL/L (21-32) Anion Gap 7 mmol/L (5-15) Blood Urea Nitrogen 30 mg/dL (7-18) H Creatinine 3.8 MG/DL (0.55-1.30) H Estimat Glomerular Filtration Rate mL/min (>60) Glucose Level 251 MG/DL (74-106) H Calcium Level 9.9 MG/DL (8.5-10.1) Phosphorus Level 3.1 MG/DL (2.5-4.9) Magnesium Level 2.0 MG/DL (1.8-2.4) Total Bilirubin 1.7 MG/DL (0.2-1.0) H Direct Bilirubin 0.9 MG/DL (0.0-0.3) H Aspartate Amino Transf (AST/SGOT) 43 U/L (15-37) H Alanine Aminotransferase (ALT/SGPT) 6 U/L (12-78) L Alkaline Phosphatase 234 U/L (46-116) H Total Protein 6.1 G/DL (6.4-8.2) L Albumin 1.6 G/DL (3.4-5.0) L Globulin 4.5 g/dL Albumin/Globulin Ratio 0.4 (1.0-2.7) L Random Vancomycin Level 18.1 ug/mL HIV (1&2) Antibody Rapid Negative (NEGATIVE) Prothrombin Time Pending Prothromb Time International Ratio Pending DIONI TRIANA Feb 10, 2017 10:26
[2017-02-10] MEDS ORDERED: Phytonadione 10 mg/mL 1ml amp SUBQ ONE (11:15)
[2017-02-10] MEDS: DOPamine 400mg/250ml 250 ML IV SCH (11:15)
--- NOTE | 2017-02-10 12:04 | General Progress Note ---
Assessment/Plan Status: unchanged Assessment/Plan Acute on chronic renal failure- multifactorial CHF DM HTN Sepsis Now: Acute respiratory failure- Intubated - Altered level of consciousness - ESBL (extended spectrum beta-lactamase) producing bacteria infection - Cardiomegaly - DM (diabetes mellitus) - HTN (hypertension) - UTI (urinary tract infection) - Anemia - High Cholestrol - COPD - YELENA - Fatty liver Plan: due trach 02/11 now ! K & Phos supplement as needed On midodrine dialysis next 02/11 Transfuse as needed, one unit 02/04 Optimize cardiac and pulmonary status 2D echo results noted avoid nephrotoxics monitor renal parameters Urine studies per orders poor prognosis Subjective ROS Limited/Unobtainable: Yes Allergies: Coded Allergies: PENICILLINS (Unverified Allergy, Unknown, 03/22/15) Objective Last 24 Hour Vital Signs Date Time Temp Pulse Resp B/P (MAP) Pulse Ox O2 Delivery O2 Flow Rate FiO2 02/10/17 11:15 129/46 02/10/17 10:42 93 21 50 02/10/17 09:06 91 20 50 02/10/17 08:00 40 02/10/17 07:00 70 20 135/48 95 Mechanical Ventilator 40 02/10/17 06:38 83 20 50 02/10/17 05:48 98.6 81 20 122/82 95 Mechanical Ventilator 40 02/10/17 05:11 75 20 50 02/10/17 05:00 70 20 130/48 95 Mechanical Ventilator 40 02/10/17 04:00 98.6 81 20 122/82 95 Mechanical Ventilator 40 02/10/17 04:00 81 02/10/17 04:00 50 02/10/17 03:00 84 19 125/60 95 Mechanical Ventilator 40 02/10/17 02:36 80 20 50 02/10/17 02:00 82 20 133/50 97 Mechanical Ventilator 40 02/10/17 01:00 78 19 117/49 97 Mechanical Ventilator 40 02/10/17 00:56 58 20 50 02/10/17 00:00 98.4 65 17 102/43 97 Mechanical Ventilator 40 02/10/17 00:00 67 02/09/17 23:16 73 20 50 02/09/17 23:00 72 19 126/61 97 Mechanical Ventilator 40 02/09/17 22:00 83 18 112/47 95 Mechanical Ventilator 40 02/09/17 21:00 73 19 118/47 95 Mechanical Ventilator 40 02/09/17 20:55 86 20 50 02/09/17 20:00 50 02/09/17 20:00 66 02/09/17 20:00 98.2 66 18 106/44 100 Mechanical Ventilator 40 02/09/17 19:08 70 20 50 02/09/17 19:00 79 20 109/46 99 Mechanical Ventilator 50 02/09/17 18:00 75 19 110/48 98 Mechanical Ventilator 50 02/09/17 17:04 63 20 50 02/09/17 17:00 75 19 102/48 99 Mechanical Ventilator 50 02/09/17 16:00 50 02/09/17 16:00 70 02/09/17 16:00 98.5 86 20 122/51 100 Mechanical Ventilator 50 02/09/17 15:00 89 20 105/54 99 Mechanical Ventilator 50 02/09/17 14:59 64 20 50 02/09/17 14:00 88 20 102/56 100 Mechanical Ventilator 50 02/09/17 13:00 97 20 112/51 97 Mechanical Ventilator 50 02/09/17 12:50 62 20 50 Intake and Output 02/10/17 02/11/17 19:00 07:00 Intake Total 190 ml Balance 190 ml Free Water 50 ml Tube Feeding 140 ml Laboratory Tests 02/10/17 05:00: White Blood Count 8.3, Red Blood Count 3.01L, Hemoglobin 9.4L, Hematocrit 29.8L , Mean Corpuscular Volume 99, Mean Corpuscular Hemoglobin 31.4H, Mean Corpuscular Hemoglobin Concent 31.7L, Red Cell Distribution Width 18.5H, Platelet Count 77L, Mean Platelet Volume 11.1H, Neutrophils (%) (Auto) , Lymphocytes (%) (Auto) , Monocytes (%) (Auto) , Eosinophils (%) (Auto) , Basophils (%) (Auto) , Differential Total Cells Counted 100, Neutrophils % ( Manual) 78H, Lymphocytes % (Manual) 10L, Monocytes % (Manual) 5, Eosinophils % ( Manual) 5H, Basophils % (Manual) 1, Band Neutrophils 1, Platelet Estimate DecreasedL, Platelet Morphology Normal, Hypochromasia 1+, Anisocytosis 2+, Macrocytosis 1+, Sodium Level 149H, Potassium Level 3.5, Chloride Level 110H, Carbon Dioxide Level 32, Anion Gap 7, Blood Urea Nitrogen 30H, Creatinine 3.8H, Estimat Glomerular Filtration Rate , Glucose Level 251H, Calcium Level 9.9, Phosphorus Level 3.1, Magnesium Level 2.0, Total Bilirubin 1.7H, Direct Bilirubin 0.9H, Aspartate Amino Transf (AST/SGOT) 43H, Alanine Aminotransferase (ALT/SGPT) 6L, Alkaline Phosphatase 234H, Total Protein 6.1L, Albumin 1.6L, Globulin 4.5, Albumin/Globulin Ratio 0.4L, Random Vancomycin Level 18.1, HIV (1& 2) Antibody Rapid Negative 02/10/17 10:00: Prothrombin Time 13.8H, Prothromb Time International Ratio 1.3H 02/10/17 10:45: Arterial Blood pH 7.437, Arterial Blood Partial Pressure CO2 49.5H, Arterial Blood Partial Pressure O2 60.5L, Arterial Blood HCO3 32.6H, Arterial Blood Oxygen Saturation 90.5L, Arterial Blood Base Excess 7.4, Bon Test Positive Height (Feet): 5 Height (Inches): 6.00 Weight (Pounds): 254 General Appearance: no apparent distress EENT: other - on vent Respiratory/Chest: decreased breath sounds Abdomen: distended Edema: 1+ Arm (L), 1+ Arm (R), 1+ Leg (L), 1+ Leg (R), 1+ Pedal (L), 1+ Pedal ( R), 1+ Generalized Objective no other change ANDERS MOLINA Feb 10, 2017 12:04
--- NOTE | 2017-02-10 12:11 | Wound Care Consultation ---
Wound Assessment Wound Assessment #1: Wound Number: 1 Wound Present on Admission: Yes New Wound: No Status Change of Wound: No Wound Location Body Site Modif: mid Wound Location Body Site: sacral Wound Type: pressure ulcer Callie Test: Does not Callie Pressure Ulcer Stage: II - sacattered Wound Thickness: Partial Thickness Wound Length: 5.0 Wound Width: 5.5 Wound Depth: 0.1 Percent of Wound [place]/Red: 100 Wound Drainage Description: Serosanguineous Wound Drainage Amount: Scant Wound Drainage Odor: None/Absent Tissue Surrounding Wound: Macerated Wound General Appearance: Reddened, Draining Wound Assessment #2: Wound Number: 2 Wound Present on Admission: Yes New Wound: No Status Change of Wound: No Wound Location Body Site Modif: left, upper, posterior Wound Location Body Site: thigh Wound Type: pressure ulcer Callie Test: Does not Callie Pressure Ulcer Stage: II - scattered Wound Thickness: Partial Thickness Wound Length: 4.0 Wound Width: 3.0 Wound Depth: 0.1 Percent of Wound [place]/Red: 100 Wound Drainage Amount: None Wound Drainage Odor: None/Absent Tissue Surrounding Wound: Erythemic Wound General Appearance: Reddened, Draining Wound Assessment #3: Wound Number: 3 Wound Present on Admission: Yes New Wound: No Status Change of Wound: No Wound Location Body Site Modif: right, upper, posterior Wound Location Body Site: thigh Wound Type: pressure ulcer Callie Test: Does not Callie Pressure Ulcer Stage: I Wound Length: 4.0 Wound Width: 4.0 Percent of Wound [place]/Red: 100 Wound Drainage Amount: None Wound Drainage Odor: None/Absent Tissue Surrounding Wound: Erythemic Wound General Appearance: Reddened Wound Assessment #4: Wound Number: 4 Wound Present on Admission: Yes New Wound: No Status Change of Wound: No Wound Location Body Site: perineal area Wound Type: chemical burn - with erosion Callie Test: Does not Callie Percent of Wound [place]/Red: 100 Wound Drainage Amount: None Wound Drainage Odor: None/Absent Tissue Surrounding Wound: Erythemic Wound General Appearance: Reddened Wound Assessment #5: Wound Number: 5 Wound Present on Admission: Yes New Wound: No Status Change of Wound: No Wound Location Body Site Modif: left Wound Location Body Site: ischial tuberosity Wound Type: pressure ulcer Callie Test: Does not Callie Pressure Ulcer Stage: I Wound Length: 3.0 Wound Width: 3.0 Percent of Wound [place]/Red: 100 Wound Drainage Amount: None Wound Drainage Odor: None/Absent Tissue Surrounding Wound: Erythemic Wound General Appearance: Reddened Wound Assessment #6: Wound Number: 6 Wound Present on Admission: Yes New Wound: No Status Change of Wound: No Wound Location Body Site Modif: right Wound Location Body Site: ischial tuberosity Wound Type: pressure ulcer Callie Test: Does not Callie Pressure Ulcer Stage: I Wound Length: 4.0 Wound Width: 3.0 Percent of Wound [place]/Red: 100 Wound Drainage Amount: None Wound Drainage Odor: None/Absent Tissue Surrounding Wound: Erythemic Wound General Appearance: Reddened Wound Assessment #7: Wound Number: 7 Wound Present on Admission: Yes New Wound: No Status Change of Wound: No Wound Location Body Site Modif: left, right Wound Location Body Site: axilla - folds and abdomial folds Wound Type: other - intertrigo Callie Test: Does not Callie Percent of Wound [place]/Red: 100 Wound Drainage Amount: None Wound Drainage Odor: None/Absent Tissue Surrounding Wound: Erythemic Wound General Appearance: Reddened Wound Assessment #8: Wound Number: 8 Wound Present on Admission: No New Wound: Yes Status Change of Wound: No Wound Location Body Site Modif: left Wound Location Body Site: ear Wound Type: pressure ulcer Callie Test: Does not Callie Pressure Ulcer Stage: I Wound Length: 0.5 Wound Width: 0.3 Percent of Wound [place]/Red: 100 Wound Drainage Amount: None Wound Drainage Odor: None/Absent Tissue Surrounding Wound: Intact Wound General Appearance: Reddened Wound Assessment #9: Wound Number: 9 Wound Present on Admission: No New Wound: Yes Status Change of Wound: No Wound Location Body Site Modif: right Wound Location Body Site: ear Wound Type: pressure ulcer Callie Test: Does not Callie Pressure Ulcer Stage: Deep Tissue Injury Wound Thickness: Full Thickness Wound Length: 0.5 Wound Width: 0.5 Wound Depth: utd Percent of Wound [place]/Maroon: 100 Wound Drainage Amount: None Wound Drainage Odor: None/Absent Tissue Surrounding Wound: Erythemic Wound General Appearance: Reddened - purple Wound Assessment #10: Wound Number: 10 Wound Present on Admission: No New Wound: Yes Status Change of Wound: No Wound Location Body Site Modif: right Wound Location Body Site: other - cheek Wound Type: pressure ulcer Callie Test: Does not Callie Pressure Ulcer Stage: I Wound Length: 2.5 Wound Width: 3.5 Percent of Wound [place]/Red: 100 Wound Drainage Amount: None Wound Drainage Odor: None/Absent Tissue Surrounding Wound: Intact Wound General Appearance: Reddened Wound Comment #1 Sacral area scattered stage II pressure ulcer. Noted with increase in size from the last time I saw This Pt. Rectal tube in place to manage incontinent related chemical bur with erosion, Pt was admitted with extensive chemical burn on perineal area extending to sacral,left and right buttocks and left and right upper thigh. will cont to monitor closely #2 Left upper posterior thigh scattered stage II pressure ulcer. #3 Left ischial tuberosity stage I pressure ulcer #4 Right ischial tuberosity stage I pressure ulcer #5 Intertrigo on both axilla and on abdominal fold #6 Chemical burn on perineal area #7 Left ear stage I pressure ulcer #8 Right ear DTI pressure ulcer #9 Right cheek stage I pressure ulcer Deterioration noted sacral, left upper posterior thigh. Recommendation -Aggressive offloading and incontinent care -Low air loss AP mattress -Optimize nutrition -Local wound care per protocol for new medical devices related pressure ulcers on right cheek, left and right ears -Assess and f/u accordingly for any changes FAIZAN CRUZ RN Feb 10, 2017 12:11
--- NOTE | 2017-02-10 12:11 | Wound Care Consultation ---
Wound Assessment Wound Assessment #1: Wound Number: 1 Wound Present on Admission: Yes New Wound: No Status Change of Wound: No Wound Location Body Site Modif: mid Wound Location Body Site: sacral Wound Type: pressure ulcer Callie Test: Does not Callie Pressure Ulcer Stage: II - sacattered Wound Thickness: Partial Thickness Wound Length: 5.0 Wound Width: 5.5 Wound Depth: 0.1 Percent of Wound [place]/Red: 100 Wound Drainage Description: Serosanguineous Wound Drainage Amount: Scant Wound Drainage Odor: None/Absent Tissue Surrounding Wound: Macerated Wound General Appearance: Reddened, Draining Wound Assessment #2: Wound Number: 2 Wound Present on Admission: Yes New Wound: No Status Change of Wound: No Wound Location Body Site Modif: left, upper, posterior Wound Location Body Site: thigh Wound Type: pressure ulcer Callie Test: Does not Callie Pressure Ulcer Stage: II - scattered Wound Thickness: Partial Thickness Wound Length: 4.0 Wound Width: 3.0 Wound Depth: 0.1 Percent of Wound [place]/Red: 100 Wound Drainage Amount: None Wound Drainage Odor: None/Absent Tissue Surrounding Wound: Erythemic Wound General Appearance: Reddened, Draining Wound Assessment #3: Wound Number: 3 Wound Present on Admission: Yes New Wound: No Status Change of Wound: No Wound Location Body Site Modif: right, upper, posterior Wound Location Body Site: thigh Wound Type: pressure ulcer Callie Test: Does not Callie Pressure Ulcer Stage: I Wound Length: 4.0 Wound Width: 4.0 Percent of Wound [place]/Red: 100 Wound Drainage Amount: None Wound Drainage Odor: None/Absent Tissue Surrounding Wound: Erythemic Wound General Appearance: Reddened Wound Assessment #4: Wound Number: 4 Wound Present on Admission: Yes New Wound: No Status Change of Wound: No Wound Location Body Site: perineal area Wound Type: chemical burn - with erosion Callie Test: Does not Callie Percent of Wound [place]/Red: 100 Wound Drainage Amount: None Wound Drainage Odor: None/Absent Tissue Surrounding Wound: Erythemic Wound General Appearance: Reddened Wound Assessment #5: Wound Number: 5 Wound Present on Admission: Yes New Wound: No Status Change of Wound: No Wound Location Body Site Modif: left Wound Location Body Site: ischial tuberosity Wound Type: pressure ulcer Callie Test: Does not Callie Pressure Ulcer Stage: I Wound Length: 3.0 Wound Width: 3.0 Percent of Wound [place]/Red: 100 Wound Drainage Amount: None Wound Drainage Odor: None/Absent Tissue Surrounding Wound: Erythemic Wound General Appearance: Reddened Wound Assessment #6: Wound Number: 6 Wound Present on Admission: Yes New Wound: No Status Change of Wound: No Wound Location Body Site Modif: right Wound Location Body Site: ischial tuberosity Wound Type: pressure ulcer Callie Test: Does not Callie Pressure Ulcer Stage: I Wound Length: 4.0 Wound Width: 3.0 Percent of Wound [place]/Red: 100 Wound Drainage Amount: None Wound Drainage Odor: None/Absent Tissue Surrounding Wound: Erythemic Wound General Appearance: Reddened Wound Assessment #7: Wound Number: 7 Wound Present on Admission: Yes New Wound: No Status Change of Wound: No Wound Location Body Site Modif: left, right Wound Location Body Site: axilla - folds and abdomial folds Wound Type: other - intertrigo Callie Test: Does not Callie Percent of Wound [place]/Red: 100 Wound Drainage Amount: None Wound Drainage Odor: None/Absent Tissue Surrounding Wound: Erythemic Wound General Appearance: Reddened Wound Assessment #8: Wound Number: 8 Wound Present on Admission: No New Wound: Yes Status Change of Wound: No Wound Location Body Site Modif: left Wound Location Body Site: ear Wound Type: pressure ulcer Callie Test: Does not Callie Pressure Ulcer Stage: I Wound Length: 0.5 Wound Width: 0.3 Percent of Wound [place]/Red: 100 Wound Drainage Amount: None Wound Drainage Odor: None/Absent Tissue Surrounding Wound: Intact Wound General Appearance: Reddened Wound Assessment #9: Wound Number: 9 Wound Present on Admission: No New Wound: Yes Status Change of Wound: No Wound Location Body Site Modif: right Wound Location Body Site: ear Wound Type: pressure ulcer Callie Test: Does not Callie Pressure Ulcer Stage: Deep Tissue Injury Wound Thickness: Full Thickness Wound Length: 0.5 Wound Width: 0.5 Wound Depth: utd Percent of Wound [place]/Maroon: 100 Wound Drainage Amount: None Wound Drainage Odor: None/Absent Tissue Surrounding Wound: Erythemic Wound General Appearance: Reddened - purple Wound Assessment #10: Wound Number: 10 Wound Present on Admission: No New Wound: Yes Status Change of Wound: No Wound Location Body Site Modif: right Wound Location Body Site: other - cheek Wound Type: pressure ulcer Callie Test: Does not Callie Pressure Ulcer Stage: I Wound Length: 2.5 Wound Width: 3.5 Percent of Wound [place]/Red: 100 Wound Drainage Amount: None Wound Drainage Odor: None/Absent Tissue Surrounding Wound: Intact Wound General Appearance: Reddened Wound Comment #1 Sacral area scattered stage II pressure ulcer. Noted with increase in size from the last time I saw This Pt. Rectal tube in place to manage incontinent related chemical bur with erosion, Pt was admitted with extensive chemical burn on perineal area extending to sacral,left and right buttocks and left and right upper thigh. will cont to monitor closely #2 Left upper posterior thigh scattered stage II pressure ulcer. #3 Left ischial tuberosity stage I pressure ulcer #4 Right ischial tuberosity stage I pressure ulcer #5 Intertrigo on both axilla and on abdominal fold #6 Chemical burn on perineal area #7 Left ear stage I pressure ulcer #8 Right ear DTI pressure ulcer #9 Right cheek stage I pressure ulcer Deterioration noted sacral, left upper posterior thigh. Recommendation -Aggressive offloading and incontinent care -Low air loss AP mattress -Optimize nutrition -Local wound care per protocol for new medical devices related pressure ulcers on right cheek, left and right ears -Assess and f/u accordingly for any changes FAIZAN CRUZ RN Feb 10, 2017 12:11
--- NOTE | 2017-02-10 12:11 | Wound Care Consultation ---
Wound Assessment Wound Assessment #1: Wound Number: 1 Wound Present on Admission: Yes New Wound: No Status Change of Wound: No Wound Location Body Site Modif: mid Wound Location Body Site: sacral Wound Type: pressure ulcer Callie Test: Does not Callie Pressure Ulcer Stage: II - sacattered Wound Thickness: Partial Thickness Wound Length: 5.0 Wound Width: 5.5 Wound Depth: 0.1 Percent of Wound [place]/Red: 100 Wound Drainage Description: Serosanguineous Wound Drainage Amount: Scant Wound Drainage Odor: None/Absent Tissue Surrounding Wound: Macerated Wound General Appearance: Reddened, Draining Wound Assessment #2: Wound Number: 2 Wound Present on Admission: Yes New Wound: No Status Change of Wound: No Wound Location Body Site Modif: left, upper, posterior Wound Location Body Site: thigh Wound Type: pressure ulcer Callie Test: Does not Callie Pressure Ulcer Stage: II - scattered Wound Thickness: Partial Thickness Wound Length: 4.0 Wound Width: 3.0 Wound Depth: 0.1 Percent of Wound [place]/Red: 100 Wound Drainage Amount: None Wound Drainage Odor: None/Absent Tissue Surrounding Wound: Erythemic Wound General Appearance: Reddened, Draining Wound Assessment #3: Wound Number: 3 Wound Present on Admission: Yes New Wound: No Status Change of Wound: No Wound Location Body Site Modif: right, upper, posterior Wound Location Body Site: thigh Wound Type: pressure ulcer Callie Test: Does not Callie Pressure Ulcer Stage: I Wound Length: 4.0 Wound Width: 4.0 Percent of Wound [place]/Red: 100 Wound Drainage Amount: None Wound Drainage Odor: None/Absent Tissue Surrounding Wound: Erythemic Wound General Appearance: Reddened Wound Assessment #4: Wound Number: 4 Wound Present on Admission: Yes New Wound: No Status Change of Wound: No Wound Location Body Site: perineal area Wound Type: chemical burn - with erosion Callie Test: Does not Callie Percent of Wound [place]/Red: 100 Wound Drainage Amount: None Wound Drainage Odor: None/Absent Tissue Surrounding Wound: Erythemic Wound General Appearance: Reddened Wound Assessment #5: Wound Number: 5 Wound Present on Admission: Yes New Wound: No Status Change of Wound: No Wound Location Body Site Modif: left Wound Location Body Site: ischial tuberosity Wound Type: pressure ulcer Callie Test: Does not Callie Pressure Ulcer Stage: I Wound Length: 3.0 Wound Width: 3.0 Percent of Wound [place]/Red: 100 Wound Drainage Amount: None Wound Drainage Odor: None/Absent Tissue Surrounding Wound: Erythemic Wound General Appearance: Reddened Wound Assessment #6: Wound Number: 6 Wound Present on Admission: Yes New Wound: No Status Change of Wound: No Wound Location Body Site Modif: right Wound Location Body Site: ischial tuberosity Wound Type: pressure ulcer Callie Test: Does not Callie Pressure Ulcer Stage: I Wound Length: 4.0 Wound Width: 3.0 Percent of Wound [place]/Red: 100 Wound Drainage Amount: None Wound Drainage Odor: None/Absent Tissue Surrounding Wound: Erythemic Wound General Appearance: Reddened Wound Assessment #7: Wound Number: 7 Wound Present on Admission: Yes New Wound: No Status Change of Wound: No Wound Location Body Site Modif: left, right Wound Location Body Site: axilla - folds and abdomial folds Wound Type: other - intertrigo Callie Test: Does not Callie Percent of Wound [place]/Red: 100 Wound Drainage Amount: None Wound Drainage Odor: None/Absent Tissue Surrounding Wound: Erythemic Wound General Appearance: Reddened Wound Assessment #8: Wound Number: 8 Wound Present on Admission: No New Wound: Yes Status Change of Wound: No Wound Location Body Site Modif: left Wound Location Body Site: ear Wound Type: pressure ulcer Callie Test: Does not Callie Pressure Ulcer Stage: I Wound Length: 0.5 Wound Width: 0.3 Percent of Wound [place]/Red: 100 Wound Drainage Amount: None Wound Drainage Odor: None/Absent Tissue Surrounding Wound: Intact Wound General Appearance: Reddened Wound Assessment #9: Wound Number: 9 Wound Present on Admission: No New Wound: Yes Status Change of Wound: No Wound Location Body Site Modif: right Wound Location Body Site: ear Wound Type: pressure ulcer Callie Test: Does not Callie Pressure Ulcer Stage: Deep Tissue Injury Wound Thickness: Full Thickness Wound Length: 0.5 Wound Width: 0.5 Wound Depth: utd Percent of Wound [place]/Maroon: 100 Wound Drainage Amount: None Wound Drainage Odor: None/Absent Tissue Surrounding Wound: Erythemic Wound General Appearance: Reddened - purple Wound Assessment #10: Wound Number: 10 Wound Present on Admission: No New Wound: Yes Status Change of Wound: No Wound Location Body Site Modif: right Wound Location Body Site: other - cheek Wound Type: pressure ulcer Callie Test: Does not Callie Pressure Ulcer Stage: I Wound Length: 2.5 Wound Width: 3.5 Percent of Wound [place]/Red: 100 Wound Drainage Amount: None Wound Drainage Odor: None/Absent Tissue Surrounding Wound: Intact Wound General Appearance: Reddened Wound Comment #1 Sacral area scattered stage II pressure ulcer. Noted with increase in size from the last time I saw This Pt. Rectal tube in place to manage incontinent related chemical bur with erosion, Pt was admitted with extensive chemical burn on perineal area extending to sacral,left and right buttocks and left and right upper thigh. will cont to monitor closely #2 Left upper posterior thigh scattered stage II pressure ulcer. #3 Left ischial tuberosity stage I pressure ulcer #4 Right ischial tuberosity stage I pressure ulcer #5 Intertrigo on both axilla and on abdominal fold #6 Chemical burn on perineal area #7 Left ear stage I pressure ulcer #8 Right ear DTI pressure ulcer #9 Right cheek stage I pressure ulcer Deterioration noted sacral, left upper posterior thigh. Recommendation -Aggressive offloading and incontinent care -Low air loss AP mattress -Optimize nutrition -Local wound care per protocol for new medical devices related pressure ulcers on right cheek, left and right ears -Assess and f/u accordingly for any changes FAIZAN CRUZ RN Feb 10, 2017 12:11
--- NOTE | 2017-02-10 12:21 | Diagnostic Imaging Report ---
Indication: DYSPNEA Technique: One view of the chest Comparison: 02/09/2017 Findings: Better inspiration on the current exam. Stable to minimally improved diffuse bilateral interstitial and alveolar disease. Stable satisfactory tube and line positions Impression: Bilateral diffuse interstitial and alveolar disease, stable or perhaps minimally improved over one day
[2017-02-10] MEDS ORDERED: Vancomycin 1gm in D5W 275ml IVPB ONE (13:00)
--- NOTE | 2017-02-10 14:01 | Anethesia Preoperative Eval ---
Anesthesia Pre-op PMH/ROS General Date of Evaluation: Feb 10, 2017 Time of Evaluation: 13:41 Anesthesiologist: Holli ASA Score: ASA 4 Mallampati Score Class I : Soft palate, uvula, fauces, pillars visible Class II: Soft palate, uvula, fauces visible Class III: Soft palate, base of uvula visible Class IV: Only hard plate visible Mallampati Classification: Class III Surgeon: Remy Diagnosis: Respiratory failure Surgical Procedure: Tracheostomy Anesthesia History: none Family History: no anesthesia problems Allergies: Coded Allergies: PENICILLINS (Unverified Allergy, Unknown, 03/22/15) Medications: see eMAR Past Medical History Cardiovascular: Reports: HTN, Denies: CAD, [place], valve dz, arrhythmia, other Pulmonary: Reports: COPD, YELENA, Denies: asthma, other Gastrointestinal/Genitourinary: Reports: GERD, ESRD - on HD, other - Liver cirrosis dysphagia, Denies: CRI Neurologic/Psychiatric: Reports: depression/anxiety, Denies: dementia, CVA, TIA, other Endocrine: Reports: DM - poorly controlled, Denies: hypothyroidism, steroids, other HEENT: Denies: cataract (L), cataract (R), glaucoma, [place] (L), [place] (R), other Hematology/Immune: Reports: anemia, bleeding disorder - severe thrombocytopenia , Denies: DVT, other Musculoskeletal/Integumentary: 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 Exam Physician Exam Last Vital Signs Date Time Temp Pulse Resp B/P (MAP) Pulse Ox O2 Delivery O2 Flow Rate FiO2 02/10/17 13:08 86 20 50 02/10/17 11:15 129/46 02/10/17 07:00 95 Mechanical Ventilator 02/10/17 05:48 98.6 02/09/17 11:50 15.0 Constitutional: other - intubated, uncomfortable with ntube presence Neurologic: other - unable to obtaine, Cardiovascular: RRR, no M/R/G Respiratory: other - diminished breath sounds bilaterally some rhoncy and wheezing Gastrointestinal: other - morbid obesity Airway Exam Mallampati Score: Class IV MO: limited Neck: short ROM: limited Teeth: missing Dentures: no upper, no lower Anesthesia Pre-op A/P Labs Hematology Test 02/10/17 05:00 White Blood Count 8.3 K/UL (4.8-10.8) Red Blood Count 3.01 M/UL (4.20-5.40) L Hemoglobin 9.4 G/DL (12.0-16.0) L Hematocrit 29.8 % (37.0-47.0) L Mean Corpuscular Volume 99 FL (80-99) Mean Corpuscular Hemoglobin 31.4 PG (27.0-31.0) H Mean Corpuscular Hemoglobin Concent 31.7 G/DL (32.0-36.0) L Red Cell Distribution Width 18.5 % (11.6-14.8) H Platelet Count 77 K/UL (150-450) L Mean Platelet Volume 11.1 FL (6.5-10.1) H Neutrophils (%) (Auto) % (45.0-75.0) Lymphocytes (%) (Auto) % (20.0-45.0) Monocytes (%) (Auto) % (1.0-10.0) Eosinophils (%) (Auto) % (0.0-3.0) Basophils (%) (Auto) % (0.0-2.0) Differential Total Cells Counted 100 Neutrophils % (Manual) 78 % (45-75) H Lymphocytes % (Manual) 10 % (20-45) L Monocytes % (Manual) 5 % (1-10) Eosinophils % (Manual) 5 % (0-3) H Basophils % (Manual) 1 % (0-2) Band Neutrophils 1 % (0-8) Platelet Estimate Decreased L Platelet Morphology Normal Hypochromasia 1+ Anisocytosis 2+ Macrocytosis 1+ Coagulation Test 02/10/17 10:00 Prothrombin Time 13.8 SEC (9.30-11.50) H Prothromb Time International Ratio 1.3 (0.9-1.1) H Chemistry Test 02/10/17 05:00 Sodium Level 149 MMOL/L (136-145) H Potassium Level 3.5 MMOL/L (3.5-5.1) Chloride Level 110 MMOL/L (98-107) H Carbon Dioxide Level 32 MMOL/L (21-32) Anion Gap 7 mmol/L (5-15) Blood Urea Nitrogen 30 mg/dL (7-18) H Creatinine 3.8 MG/DL (0.55-1.30) H Estimat Glomerular Filtration Rate mL/min (>60) Glucose Level 251 MG/DL (74-106) H Calcium Level 9.9 MG/DL (8.5-10.1) Phosphorus Level 3.1 MG/DL (2.5-4.9) Magnesium Level 2.0 MG/DL (1.8-2.4) Total Bilirubin 1.7 MG/DL (0.2-1.0) H Direct Bilirubin 0.9 MG/DL (0.0-0.3) H Aspartate Amino Transf (AST/SGOT) 43 U/L (15-37) H Alanine Aminotransferase (ALT/SGPT) 6 U/L (12-78) L Alkaline Phosphatase 234 U/L (46-116) H Total Protein 6.1 G/DL (6.4-8.2) L Albumin 1.6 G/DL (3.4-5.0) L Globulin 4.5 g/dL Albumin/Globulin Ratio 0.4 (1.0-2.7) L Studies Pre-op Studies: EKG - SR Risk Assessment & Plan Assessment: Patient is scheduled for tracheostomy, condition critical considering all preexisting issues, high risk for intraoperative bleeding severe thrombocytopenia, no platelets transfusion scheduled up to now, coagulations parameters improved slightly. ASA 4, Plan: GA with ETT muscle paralysis final decision about surgery will be Dr. Ring ICU care postoperatively. Status Change Before Surgery: No Pre-Antibiotics Drug: as DERIC Mendez M.D. Feb 10, 2017 14:01
--- NOTE | 2017-02-10 15:26 | Cardiac Electrophysiology PN ---
Assessment/Plan Assessment/Plan 1. CHF due to diastolic dysfunction. EF 60 %. On dialysis. EKG NSR with low voltage QRS. 2. Shock, resolved.Off Dopamine and on Abx 3. Bradycardia resolved, off dopamine. On midodrine 5 tid 4. Vent dependent respiratory failure. Self extubated on 02/04 and was reintubated an hour later. Tracheostomy rescheduled for tomorrow 5. Hyperlipidemia. 6. Cirrhosis 7. Anemia with hemoglobin of 8. 8. Hypernatremia Na 149 02/09/17 9. DNR 10. ESRD on HD 11. DM 12. Dysphagia, PEG pending after tracheostomy DW RN Subjective Subjective In ICU on Vent.Had HD 3 liters yesterday. No significant change. Tracheostomy rescheduled again for tomorrow Objective Last 24 Hour Vital Signs Date Time Temp Pulse Resp B/P (MAP) Pulse Ox O2 Delivery O2 Flow Rate FiO2 02/10/17 14:55 80 20 50 02/10/17 13:08 86 20 50 02/10/17 12:00 79 02/10/17 12:00 40 02/10/17 11:15 129/46 02/10/17 10:42 93 21 50 02/10/17 09:06 91 20 50 02/10/17 08:00 40 02/10/17 08:00 83 02/10/17 07:00 70 20 135/48 95 Mechanical Ventilator 40 02/10/17 06:38 83 20 50 02/10/17 05:48 98.6 81 20 122/82 95 Mechanical Ventilator 40 02/10/17 05:11 75 20 50 02/10/17 05:00 70 20 130/48 95 Mechanical Ventilator 40 02/10/17 04:00 98.6 81 20 122/82 95 Mechanical Ventilator 40 02/10/17 04:00 81 02/10/17 04:00 50 02/10/17 03:00 84 19 125/60 95 Mechanical Ventilator 40 02/10/17 02:36 80 20 50 02/10/17 02:00 82 20 133/50 97 Mechanical Ventilator 40 02/10/17 01:00 78 19 117/49 97 Mechanical Ventilator 40 02/10/17 00:56 58 20 50 02/10/17 00:00 98.4 65 17 102/43 97 Mechanical Ventilator 40 02/10/17 00:00 67 02/09/17 23:16 73 20 50 02/09/17 23:00 72 19 126/61 97 Mechanical Ventilator 40 02/09/17 22:00 83 18 112/47 95 Mechanical Ventilator 40 02/09/17 21:00 73 19 118/47 95 Mechanical Ventilator 40 02/09/17 20:55 86 20 50 02/09/17 20:00 50 02/09/17 20:00 66 02/09/17 20:00 98.2 66 18 106/44 100 Mechanical Ventilator 40 02/09/17 19:08 70 20 50 02/09/17 19:00 79 20 109/46 99 Mechanical Ventilator 50 02/09/17 18:00 75 19 110/48 98 Mechanical Ventilator 50 02/09/17 17:04 63 20 50 02/09/17 17:00 75 19 102/48 99 Mechanical Ventilator 50 02/09/17 16:00 50 02/09/17 16:00 70 02/09/17 16:00 98.5 86 20 122/51 100 Mechanical Ventilator 50 Intake and Output 02/10/17 02/11/17 19:00 07:00 Intake Total 295 ml Balance 295 ml Free Water 50 ml Tube Feeding 245 ml Laboratory Tests Test 02/10/17 05:00 02/10/17 10:00 02/10/17 10:45 White Blood Count 8.3 K/UL (4.8-10.8) Red Blood Count 3.01 M/UL (4.20-5.40) L Hemoglobin 9.4 G/DL (12.0-16.0) L Hematocrit 29.8 % (37.0-47.0) L Mean Corpuscular Volume 99 FL (80-99) Mean Corpuscular Hemoglobin 31.4 PG (27.0-31.0) H Mean Corpuscular Hemoglobin Concent 31.7 G/DL (32.0-36.0) L Red Cell Distribution Width 18.5 % (11.6-14.8) H Platelet Count 77 K/UL (150-450) L Mean Platelet Volume 11.1 FL (6.5-10.1) H Neutrophils (%) (Auto) % (45.0-75.0) Lymphocytes (%) (Auto) % (20.0-45.0) Monocytes (%) (Auto) % (1.0-10.0) Eosinophils (%) (Auto) % (0.0-3.0) Basophils (%) (Auto) % (0.0-2.0) Differential Total Cells Counted 100 Neutrophils % (Manual) 78 % (45-75) H Lymphocytes % (Manual) 10 % (20-45) L Monocytes % (Manual) 5 % (1-10) Eosinophils % (Manual) 5 % (0-3) H Basophils % (Manual) 1 % (0-2) Band Neutrophils 1 % (0-8) Platelet Estimate Decreased L Platelet Morphology Normal Hypochromasia 1+ Anisocytosis 2+ Macrocytosis 1+ Sodium Level 149 MMOL/L (136-145) H Potassium Level 3.5 MMOL/L (3.5-5.1) Chloride Level 110 MMOL/L (98-107) H Carbon Dioxide Level 32 MMOL/L (21-32) Anion Gap 7 mmol/L (5-15) Blood Urea Nitrogen 30 mg/dL (7-18) H Creatinine 3.8 MG/DL (0.55-1.30) H Estimat Glomerular Filtration Rate mL/min (>60) Glucose Level 251 MG/DL (74-106) H Calcium Level 9.9 MG/DL (8.5-10.1) Phosphorus Level 3.1 MG/DL (2.5-4.9) Magnesium Level 2.0 MG/DL (1.8-2.4) Total Bilirubin 1.7 MG/DL (0.2-1.0) H Direct Bilirubin 0.9 MG/DL (0.0-0.3) H Aspartate Amino Transf (AST/SGOT) 43 U/L (15-37) H Alanine Aminotransferase (ALT/SGPT) 6 U/L (12-78) L Alkaline Phosphatase 234 U/L (46-116) H Total Protein 6.1 G/DL (6.4-8.2) L Albumin 1.6 G/DL (3.4-5.0) L Globulin 4.5 g/dL Albumin/Globulin Ratio 0.4 (1.0-2.7) L Random Vancomycin Level 18.1 ug/mL HIV (1&2) Antibody Rapid Negative (NEGATIVE) Prothrombin Time 13.8 SEC (9.30-11.50) H Prothromb Time International Ratio 1.3 (0.9-1.1) H Arterial Blood pH 7.437 (7.350-7.450) Arterial Blood Partial Pressure CO2 49.5 mmHg (35.0-45.0) H Arterial Blood Partial Pressure O2 60.5 mmHg (75.0-100.0) L Arterial Blood HCO3 32.6 mmol/L (22.0-26.0) H Arterial Blood Oxygen Saturation 90.5 % (92.0-98.0) L Arterial Blood Base Excess 7.4 Bon Test Positive Objective HEAD AND NECK: No JVD.Orally intubated.NG tube. Right IJ Mahurkar Catheter in place LUNGS: Coarse rhonchi CARDIOVASCULAR: Regular S1 and S2 with no gallop or murmur. ABDOMEN: Soft and nontender and obese. EXTREMITIES: 1+ pitting edema. DEAN SHAW Feb 10, 2017 15:26
--- NOTE | 2017-02-10 16:07 | General Progress Note ---
Assessment/Plan Assessment/Plan ASSESSMENT AND RECOMMENDATIONS 1.Thrombocytopenia 2/2 sepsis --> improving --> give plts if below 10k or if below 20k and febrile --> ID following 2. Coagulopathy secondary to underlying liver cirrhosis ---> s/p Vitamin K 10 mg sq x1 and 2 units FFP --> slowly improving 3. Thrombocytopenia secondary to underlying splenomegaly. 4. Anemia 2/2 chronic disease --> Watch HH, transfuse if below 8 5. Leukocytosis secondary to underlying infection. On abx per id service --> wbc count has now normalized 6. Sepsis 2/2 UTI 7. Altered mental status 8. RAMYA on CKD,on hemodialysis Subjective ROS Limited/Unobtainable: Yes Allergies: Coded Allergies: PENICILLINS (Unverified Allergy, Unknown, 03/22/15) Subjective remains on vent, unresponsive Objective Last 24 Hour Vital Signs Date Time Temp Pulse Resp B/P (MAP) Pulse Ox O2 Delivery O2 Flow Rate FiO2 02/10/17 14:55 80 20 50 02/10/17 13:08 86 20 50 02/10/17 12:00 79 02/10/17 12:00 40 02/10/17 11:15 129/46 02/10/17 10:42 93 21 50 02/10/17 09:06 91 20 50 02/10/17 08:00 40 02/10/17 08:00 83 02/10/17 07:00 70 20 135/48 95 Mechanical Ventilator 40 02/10/17 06:38 83 20 50 02/10/17 05:48 98.6 81 20 122/82 95 Mechanical Ventilator 40 02/10/17 05:11 75 20 50 02/10/17 05:00 70 20 130/48 95 Mechanical Ventilator 40 02/10/17 04:00 98.6 81 20 122/82 95 Mechanical Ventilator 40 02/10/17 04:00 81 02/10/17 04:00 50 02/10/17 03:00 84 19 125/60 95 Mechanical Ventilator 40 02/10/17 02:36 80 20 50 02/10/17 02:00 82 20 133/50 97 Mechanical Ventilator 40 02/10/17 01:00 78 19 117/49 97 Mechanical Ventilator 40 02/10/17 00:56 58 20 50 02/10/17 00:00 98.4 65 17 102/43 97 Mechanical Ventilator 40 02/10/17 00:00 67 02/09/17 23:16 73 20 50 02/09/17 23:00 72 19 126/61 97 Mechanical Ventilator 40 02/09/17 22:00 83 18 112/47 95 Mechanical Ventilator 40 02/09/17 21:00 73 19 118/47 95 Mechanical Ventilator 40 02/09/17 20:55 86 20 50 02/09/17 20:00 50 02/09/17 20:00 66 02/09/17 20:00 98.2 66 18 106/44 100 Mechanical Ventilator 40 02/09/17 19:08 70 20 50 02/09/17 19:00 79 20 109/46 99 Mechanical Ventilator 50 02/09/17 18:00 75 19 110/48 98 Mechanical Ventilator 50 02/09/17 17:04 63 20 50 02/09/17 17:00 75 19 102/48 99 Mechanical Ventilator 50 Intake and Output 02/10/17 02/11/17 19:00 07:00 Intake Total 295 ml Balance 295 ml Free Water 50 ml Tube Feeding 245 ml Laboratory Tests 02/10/17 05:00: White Blood Count 8.3, Red Blood Count 3.01L, Hemoglobin 9.4L, Hematocrit 29.8L , Mean Corpuscular Volume 99, Mean Corpuscular Hemoglobin 31.4H, Mean Corpuscular Hemoglobin Concent 31.7L, Red Cell Distribution Width 18.5H, Platelet Count 77L, Mean Platelet Volume 11.1H, Neutrophils (%) (Auto) , Lymphocytes (%) (Auto) , Monocytes (%) (Auto) , Eosinophils (%) (Auto) , Basophils (%) (Auto) , Differential Total Cells Counted 100, Neutrophils % ( Manual) 78H, Lymphocytes % (Manual) 10L, Monocytes % (Manual) 5, Eosinophils % ( Manual) 5H, Basophils % (Manual) 1, Band Neutrophils 1, Platelet Estimate DecreasedL, Platelet Morphology Normal, Hypochromasia 1+, Anisocytosis 2+, Macrocytosis 1+, Sodium Level 149H, Potassium Level 3.5, Chloride Level 110H, Carbon Dioxide Level 32, Anion Gap 7, Blood Urea Nitrogen 30H, Creatinine 3.8H, Estimat Glomerular Filtration Rate , Glucose Level 251H, Calcium Level 9.9, Phosphorus Level 3.1, Magnesium Level 2.0, Total Bilirubin 1.7H, Direct Bilirubin 0.9H, Aspartate Amino Transf (AST/SGOT) 43H, Alanine Aminotransferase (ALT/SGPT) 6L, Alkaline Phosphatase 234H, Total Protein 6.1L, Albumin 1.6L, Globulin 4.5, Albumin/Globulin Ratio 0.4L, Random Vancomycin Level 18.1, HIV (1& 2) Antibody Rapid Negative 02/10/17 10:00: Prothrombin Time 13.8H, Prothromb Time International Ratio 1.3H 02/10/17 10:45: Arterial Blood pH 7.437, Arterial Blood Partial Pressure CO2 49.5H, Arterial Blood Partial Pressure O2 60.5L, Arterial Blood HCO3 32.6H, Arterial Blood Oxygen Saturation 90.5L, Arterial Blood Base Excess 7.4, Bon Test Positive Height (Feet): 5 Height (Inches): 6.00 Weight (Pounds): 254 General Appearance: no apparent distress EENT: TMs normal Neck: normal alignment Cardiovascular: normal rate Neurologic: development vice president II-XII grossly normal Skin: warm/dry Chriss Pat Feb 10, 2017 16:07
--- NOTE | 2017-02-10 18:16 | Internal Med Progress Note ---
Subjective Date of Service: Feb 10, 2017 Physician Name Katharina Pond Attending Physician Rl Tee MD Current Medications Medications (Trade) Dose Ordered Sig/Pavel Route PRN Reason Start Time Stop Time Status Last Admin Dose Admin Acetaminophen (Tylenol) 650 mg Q4H PRN ORAL T>100.5 01/21/17 14:30 02/15/17 14:29 02/05/17 07:41 Chlorhexidine Gluconate (Dianne-Hex 2%) 1 applic DAILY@1999 TOPIC 01/25/17 20:00 02/24/17 19:59 02/09/17 20:10 Clotrimazole (Lotrimin) 1 applic EVERY 12 HOURS TOPIC 01/21/17 21:00 02/18/17 13:59 02/10/17 09:11 Dextrose (Dextrose 50%) STAT PRN IV Hypoglycemia 02/06/17 10:45 03/08/17 10:44 Dopamine HCl/ Dextrose 250 ml @ 0 mls/hr Q24H IV 01/25/17 11:15 02/24/17 11:14 01/30/17 10:30 Hydromorphone HCl (Dilaudid) 0.5 mg Q4H PRN IVP Pain (5-10) 02/09/17 18:00 02/15/17 10:44 02/10/17 05:05 Insulin Aspart (NovoLOG) EVERY 4 HOURS SUBQ 02/06/17 12:00 03/08/17 11:59 02/10/17 17:16 Metoclopramide HCl (Reglan) 5 mg Q8H PRN IVP Nausea & Vomiting 01/29/17 11:30 02/28/17 11:29 01/31/17 11:46 Midodrine (Pro-Amatine) 10 mg Q8HR NG 02/03/17 14:00 03/05/17 13:59 02/10/17 06:23 Nitroglycerin (Ntg) 0.4 mg Q5MIN X 3 DOSES PRN SL Prn Chest Pain 01/21/17 14:30 02/15/17 14:29 Nystatin (Nystop Powder) 1 applic THREE TIMES A DAY TOPIC 01/22/17 13:00 02/21/17 12:59 02/10/17 17:17 Ranitidine HCl (Zantac) 150 mg DAILY NG 02/03/17 18:00 03/05/17 17:59 02/10/17 09:11 Rifaximin (Xifaxan) 550 mg EVERY 12 HOURS ORAL 01/29/17 12:00 03/07/17 11:59 02/10/17 09:11 Vancomycin HCl (Vanco rx to dose) 1 ea DAILY PRN MISC Per rx protocol 02/05/17 19:15 03/07/17 19:14 Allergies: Coded Allergies: PENICILLINS (Unverified Allergy, Unknown, 03/22/15) Subjective 76 YO F admitted with altered mental status. Intubated and sedated. ICU . Cover for Int Med-Dr Tee. Await tracheostomy on Thu02/11/17 Objective Last Vital Signs Date Time Temp Pulse Resp B/P (MAP) Pulse Ox O2 Delivery O2 Flow Rate FiO2 02/10/17 18:00 81 20 109/51 96 Mechanical Ventilator 40 02/10/17 17:00 98.3 02/09/17 11:50 15.0 Laboratory Tests Test 02/10/17 05:00 02/10/17 10:00 02/10/17 10:45 White Blood Count 8.3 K/UL (4.8-10.8) Red Blood Count 3.01 M/UL (4.20-5.40) L Hemoglobin 9.4 G/DL (12.0-16.0) L Hematocrit 29.8 % (37.0-47.0) L Mean Corpuscular Volume 99 FL (80-99) Mean Corpuscular Hemoglobin 31.4 PG (27.0-31.0) H Mean Corpuscular Hemoglobin Concent 31.7 G/DL (32.0-36.0) L Red Cell Distribution Width 18.5 % (11.6-14.8) H Platelet Count 77 K/UL (150-450) L Mean Platelet Volume 11.1 FL (6.5-10.1) H Neutrophils (%) (Auto) % (45.0-75.0) Lymphocytes (%) (Auto) % (20.0-45.0) Monocytes (%) (Auto) % (1.0-10.0) Eosinophils (%) (Auto) % (0.0-3.0) Basophils (%) (Auto) % (0.0-2.0) Differential Total Cells Counted 100 Neutrophils % (Manual) 78 % (45-75) H Lymphocytes % (Manual) 10 % (20-45) L Monocytes % (Manual) 5 % (1-10) Eosinophils % (Manual) 5 % (0-3) H Basophils % (Manual) 1 % (0-2) Band Neutrophils 1 % (0-8) Platelet Estimate Decreased L Platelet Morphology Normal Hypochromasia 1+ Anisocytosis 2+ Macrocytosis 1+ Sodium Level 149 MMOL/L (136-145) H Potassium Level 3.5 MMOL/L (3.5-5.1) Chloride Level 110 MMOL/L (98-107) H Carbon Dioxide Level 32 MMOL/L (21-32) Anion Gap 7 mmol/L (5-15) Blood Urea Nitrogen 30 mg/dL (7-18) H Creatinine 3.8 MG/DL (0.55-1.30) H Estimat Glomerular Filtration Rate mL/min (>60) Glucose Level 251 MG/DL (74-106) H Calcium Level 9.9 MG/DL (8.5-10.1) Phosphorus Level 3.1 MG/DL (2.5-4.9) Magnesium Level 2.0 MG/DL (1.8-2.4) Total Bilirubin 1.7 MG/DL (0.2-1.0) H Direct Bilirubin 0.9 MG/DL (0.0-0.3) H Aspartate Amino Transf (AST/SGOT) 43 U/L (15-37) H Alanine Aminotransferase (ALT/SGPT) 6 U/L (12-78) L Alkaline Phosphatase 234 U/L (46-116) H Total Protein 6.1 G/DL (6.4-8.2) L Albumin 1.6 G/DL (3.4-5.0) L Globulin 4.5 g/dL Albumin/Globulin Ratio 0.4 (1.0-2.7) L Random Vancomycin Level 18.1 ug/mL HIV (1&2) Antibody Rapid Negative (NEGATIVE) Prothrombin Time 13.8 SEC (9.30-11.50) H Prothromb Time International Ratio 1.3 (0.9-1.1) H Arterial Blood pH 7.437 (7.350-7.450) Arterial Blood Partial Pressure CO2 49.5 mmHg (35.0-45.0) H Arterial Blood Partial Pressure O2 60.5 mmHg (75.0-100.0) L Arterial Blood HCO3 32.6 mmol/L (22.0-26.0) H Arterial Blood Oxygen Saturation 90.5 % (92.0-98.0) L Arterial Blood Base Excess 7.4 Bon Test Positive Intake and Output 02/10/17 02/11/17 19:00 07:00 Intake Total 485 ml Balance 485 ml Free Water 100 ml Tube Feeding 385 ml Objective General Appearance: WD/WN, no apparent distress, moderate distress, obese EENT: PERRL/EOMI, normal ENT inspection Neck: non-tender, normal alignment, supple, normal inspection Cardiovascular: normal peripheral pulses, normal rate, regular rhythm, no gallop/murmur, no JVD Respiratory/Chest: Mechanical vent; chest wall non-tender, lungs with coarse upper air sounds, Bilat wheezes and rales, respiratory distress Abdomen: G-Tube; non tender, no organomegaly, no mass Neurologic: chief nursing officer 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 Baumanii. See ID note. Continur ertaoenem and vanco per ID (2) CHF (congestive heart failure) Assessment & Plan: LVEF 60-65%. see cardiology note. (3) DM (diabetes mellitus) Assessment & Plan: Continue novolog sliding scale (4) Hypercholesteremia (5) HTN (hypertension) Assessment & Plan: Currently hypotensive. (6) Uncontrolled diabetes mellitus (7) Cirrhosis Assessment & Plan: see GI note. (8) Anemia Assessment & Plan: S/P transfusion 2 units PRBC (9) Altered mental status Assessment & Plan: Worsening. ICU status (10) Renal failure Assessment & Plan: Next hemodialysis 02/09/17. See nephrology note. (11) Respiratory failure Assessment & Plan: Due to CHF. Cont mech vent per pulmonary-await tracheostomy 02/11/17. Continue antibiotic per ID (12) Bradycardia Assessment & Plan: see cardiology note. (13) Hypotension Assessment & Plan: Continue dopamine Status: not improved Assessment/Plan Await tracheostomy Thu02/11/17. KATHARINA POND Feb 10, 2017 18:16
--- NOTE | 2017-02-10 19:05 | General Progress Note ---
Assessment/Plan Status: unchanged Assessment/Plan encephalopathy Subjective Allergies: Coded Allergies: PENICILLINS (Unverified Allergy, Unknown, 03/22/15) Subjective waxing and waning of consciousness.agitated at times unchanged since previous encounter Objective Last 24 Hour Vital Signs Date Time Temp Pulse Resp B/P (MAP) Pulse Ox O2 Delivery O2 Flow Rate FiO2 02/10/17 19:00 73 20 110/39 98 Mechanical Ventilator 40 02/10/17 18:00 81 20 109/51 96 Mechanical Ventilator 40 02/10/17 17:00 98.3 89 20 123/49 96 Mechanical Ventilator 40 02/10/17 16:46 91 20 50 02/10/17 16:00 92 02/10/17 16:00 87 20 125/46 97 Mechanical Ventilator 40 02/10/17 16:00 40 02/10/17 15:00 97.8 91 20 123/49 97 Mechanical Ventilator 40 02/10/17 14:55 80 20 50 02/10/17 14:00 79 20 102/50 97 Mechanical Ventilator 40 02/10/17 13:08 86 20 50 02/10/17 13:00 82 20 125/36 97 Mechanical Ventilator 40 02/10/17 12:00 79 02/10/17 12:00 40 02/10/17 12:00 97.8 78 19 99/33 96 Mechanical Ventilator 40 02/10/17 11:15 129/46 02/10/17 11:00 91 20 92/34 91 Mechanical Ventilator 40 02/10/17 10:42 93 21 50 02/10/17 10:00 86 20 112/41 95 Mechanical Ventilator 40 02/10/17 09:06 91 20 50 02/10/17 09:00 98.1 88 20 100/75 94 Mechanical Ventilator 40 02/10/17 08:00 40 02/10/17 08:00 74 19 114/41 96 Mechanical Ventilator 40 02/10/17 08:00 83 02/10/17 07:00 70 20 135/48 95 Mechanical Ventilator 40 02/10/17 06:38 83 20 50 02/10/17 05:48 98.6 81 20 122/82 95 Mechanical Ventilator 40 02/10/17 05:11 75 20 50 02/10/17 05:00 70 20 130/48 95 Mechanical Ventilator 40 02/10/17 04:00 98.6 81 20 122/82 95 Mechanical Ventilator 40 02/10/17 04:00 81 02/10/17 04:00 50 02/10/17 03:00 84 19 125/60 95 Mechanical Ventilator 40 02/10/17 02:36 80 20 50 02/10/17 02:00 82 20 133/50 97 Mechanical Ventilator 40 02/10/17 01:00 78 19 117/49 97 Mechanical Ventilator 40 02/10/17 00:56 58 20 50 02/10/17 00:00 98.4 65 17 102/43 97 Mechanical Ventilator 40 02/10/17 00:00 67 02/09/17 23:16 73 20 50 02/09/17 23:00 72 19 126/61 97 Mechanical Ventilator 40 02/09/17 22:00 83 18 112/47 95 Mechanical Ventilator 40 02/09/17 21:00 73 19 118/47 95 Mechanical Ventilator 40 02/09/17 20:55 86 20 50 02/09/17 20:00 50 02/09/17 20:00 66 02/09/17 20:00 98.2 66 18 106/44 100 Mechanical Ventilator 40 02/09/17 19:08 70 20 50 Intake and Output 02/10/17 02/11/17 19:00 07:00 Intake Total 795.000 ml Balance 795.000 ml Free Water 100 ml IV Total 275.000 ml Tube Feeding 420 ml Laboratory Tests 02/10/17 05:00: White Blood Count 8.3, Red Blood Count 3.01L, Hemoglobin 9.4L, Hematocrit 29.8L , Mean Corpuscular Volume 99, Mean Corpuscular Hemoglobin 31.4H, Mean Corpuscular Hemoglobin Concent 31.7L, Red Cell Distribution Width 18.5H, Platelet Count 77L, Mean Platelet Volume 11.1H, Neutrophils (%) (Auto) , Lymphocytes (%) (Auto) , Monocytes (%) (Auto) , Eosinophils (%) (Auto) , Basophils (%) (Auto) , Differential Total Cells Counted 100, Neutrophils % ( Manual) 78H, Lymphocytes % (Manual) 10L, Monocytes % (Manual) 5, Eosinophils % ( Manual) 5H, Basophils % (Manual) 1, Band Neutrophils 1, Platelet Estimate DecreasedL, Platelet Morphology Normal, Hypochromasia 1+, Anisocytosis 2+, Macrocytosis 1+, Sodium Level 149H, Potassium Level 3.5, Chloride Level 110H, Carbon Dioxide Level 32, Anion Gap 7, Blood Urea Nitrogen 30H, Creatinine 3.8H, Estimat Glomerular Filtration Rate , Glucose Level 251H, Calcium Level 9.9, Phosphorus Level 3.1, Magnesium Level 2.0, Total Bilirubin 1.7H, Direct Bilirubin 0.9H, Aspartate Amino Transf (AST/SGOT) 43H, Alanine Aminotransferase (ALT/SGPT) 6L, Alkaline Phosphatase 234H, Total Protein 6.1L, Albumin 1.6L, Globulin 4.5, Albumin/Globulin Ratio 0.4L, Random Vancomycin Level 18.1, HIV (1& 2) Antibody Rapid Negative 02/10/17 10:00: Prothrombin Time 13.8H, Prothromb Time International Ratio 1.3H 02/10/17 10:45: Arterial Blood pH 7.437, Arterial Blood Partial Pressure CO2 49.5H, Arterial Blood Partial Pressure O2 60.5L, Arterial Blood HCO3 32.6H, Arterial Blood Oxygen Saturation 90.5L, Arterial Blood Base Excess 7.4, Bon Test Positive Height (Feet): 5 Height (Inches): 6.00 Weight (Pounds): 254 General Appearance: lethargic, confused, obese Neurologic: disoriented, depressed affect Oj Medel M.D. Feb 10, 2017 19:05
--- NOTE | 2017-02-10 19:55 | General Progress Note ---
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 Recommendations - continue off of lactulose - continue Xifaxan - Continue TF - follow labs - HD/lytes per Renal - free water - await trach - will need PEG to follow (? } - check final report of ultrasound to evaluate for presence of ascites. Subjective Allergies: Coded Allergies: PENICILLINS (Unverified Allergy, Unknown, 03/22/15) Subjective above noted d/w RN tolerating TF Had ultrasound today no significant ascites per prelim report for trach tomorrow Objective Last 24 Hour Vital Signs Date Time Temp Pulse Resp B/P (MAP) Pulse Ox O2 Delivery O2 Flow Rate FiO2 02/10/17 19:10 75 20 40 02/10/17 19:00 73 20 110/39 98 Mechanical Ventilator 40 02/10/17 18:00 81 20 109/51 96 Mechanical Ventilator 40 02/10/17 17:00 98.3 89 20 123/49 96 Mechanical Ventilator 40 02/10/17 16:46 91 20 50 02/10/17 16:00 92 02/10/17 16:00 87 20 125/46 97 Mechanical Ventilator 40 02/10/17 16:00 40 02/10/17 15:00 97.8 91 20 123/49 97 Mechanical Ventilator 40 02/10/17 14:55 80 20 50 02/10/17 14:00 79 20 102/50 97 Mechanical Ventilator 40 02/10/17 13:08 86 20 50 02/10/17 13:00 82 20 125/36 97 Mechanical Ventilator 40 02/10/17 12:00 79 02/10/17 12:00 40 02/10/17 12:00 97.8 78 19 99/33 96 Mechanical Ventilator 40 02/10/17 11:15 129/46 02/10/17 11:00 91 20 92/34 91 Mechanical Ventilator 40 02/10/17 10:42 93 21 50 02/10/17 10:00 86 20 112/41 95 Mechanical Ventilator 40 02/10/17 09:06 91 20 50 02/10/17 09:00 98.1 88 20 100/75 94 Mechanical Ventilator 40 02/10/17 08:00 40 02/10/17 08:00 74 19 114/41 96 Mechanical Ventilator 40 02/10/17 08:00 83 02/10/17 07:00 70 20 135/48 95 Mechanical Ventilator 40 02/10/17 06:38 83 20 50 02/10/17 05:48 98.6 81 20 122/82 95 Mechanical Ventilator 40 02/10/17 05:11 75 20 50 02/10/17 05:00 70 20 130/48 95 Mechanical Ventilator 40 02/10/17 04:00 98.6 81 20 122/82 95 Mechanical Ventilator 40 02/10/17 04:00 81 02/10/17 04:00 50 02/10/17 03:00 84 19 125/60 95 Mechanical Ventilator 40 02/10/17 02:36 80 20 50 02/10/17 02:00 82 20 133/50 97 Mechanical Ventilator 40 02/10/17 01:00 78 19 117/49 97 Mechanical Ventilator 40 02/10/17 00:56 58 20 50 02/10/17 00:00 98.4 65 17 102/43 97 Mechanical Ventilator 40 02/10/17 00:00 67 02/09/17 23:16 73 20 50 02/09/17 23:00 72 19 126/61 97 Mechanical Ventilator 40 02/09/17 22:00 83 18 112/47 95 Mechanical Ventilator 40 02/09/17 21:00 73 19 118/47 95 Mechanical Ventilator 40 02/09/17 20:55 86 20 50 02/09/17 20:00 50 02/09/17 20:00 66 02/09/17 20:00 98.2 66 18 106/44 100 Mechanical Ventilator 40 Intake and Output 02/10/17 02/11/17 19:00 07:00 Intake Total 795.000 ml Balance 795.000 ml Free Water 100 ml IV Total 275.000 ml Tube Feeding 420 ml Laboratory Tests 02/10/17 05:00: White Blood Count 8.3, Red Blood Count 3.01L, Hemoglobin 9.4L, Hematocrit 29.8L , Mean Corpuscular Volume 99, Mean Corpuscular Hemoglobin 31.4H, Mean Corpuscular Hemoglobin Concent 31.7L, Red Cell Distribution Width 18.5H, Platelet Count 77L, Mean Platelet Volume 11.1H, Neutrophils (%) (Auto) , Lymphocytes (%) (Auto) , Monocytes (%) (Auto) , Eosinophils (%) (Auto) , Basophils (%) (Auto) , Differential Total Cells Counted 100, Neutrophils % ( Manual) 78H, Lymphocytes % (Manual) 10L, Monocytes % (Manual) 5, Eosinophils % ( Manual) 5H, Basophils % (Manual) 1, Band Neutrophils 1, Platelet Estimate DecreasedL, Platelet Morphology Normal, Hypochromasia 1+, Anisocytosis 2+, Macrocytosis 1+, Sodium Level 149H, Potassium Level 3.5, Chloride Level 110H, Carbon Dioxide Level 32, Anion Gap 7, Blood Urea Nitrogen 30H, Creatinine 3.8H, Estimat Glomerular Filtration Rate , Glucose Level 251H, Calcium Level 9.9, Phosphorus Level 3.1, Magnesium Level 2.0, Total Bilirubin 1.7H, Direct Bilirubin 0.9H, Aspartate Amino Transf (AST/SGOT) 43H, Alanine Aminotransferase (ALT/SGPT) 6L, Alkaline Phosphatase 234H, Total Protein 6.1L, Albumin 1.6L, Globulin 4.5, Albumin/Globulin Ratio 0.4L, Random Vancomycin Level 18.1, HIV (1& 2) Antibody Rapid Negative 02/10/17 10:00: Prothrombin Time 13.8H, Prothromb Time International Ratio 1.3H 02/10/17 10:45: Arterial Blood pH 7.437, Arterial Blood Partial Pressure CO2 49.5H, Arterial Blood Partial Pressure O2 60.5L, Arterial Blood HCO3 32.6H, Arterial Blood Oxygen Saturation 90.5L, Arterial Blood Base Excess 7.4, Bon Test Positive Height (Feet): 5 Height (Inches): 6.00 Weight (Pounds): 254 Objective Obese WW NCAT, (+) ETT and NGT supple CTA RRR soft ND NT (+) edema confused KIERSTEN DAVIES Feb 10, 2017 19:55
[2017-02-10] MEDS: Dyna-Hex 2% Top Sol 2oz TOPIC SCH (20:33)
[2017-02-11] VITALS (24 sets, daily range): BP systolic 74–140; BP diastolic 41–61
[2017-02-11] MEDS: NovoLOG Insulin Flexpen SUBQ SCH ×6 (01:00→20:41)
[2017-02-11 05:16] LABS: HEMATOCRIT 29.7 % (37.0-47.0); HEMOGLOBIN 9.2 G/DL (12.0-16.0); MEAN CORPUSCULAR VOLUME 99 FL (80-99); PLATELET COUNT 75 K/UL (150-450); RED BLOOD COUNT 2.99 M/UL (4.20-5.40); RED CELL DISTRIBUTION WIDTH 18.2 % (11.6-14.8); WHITE BLOOD COUNT 7.5 K/UL (4.8-10.8)
[2017-02-11 05:18] LABS: INR 1.2 (0.9-1.1)
[2017-02-11 06:00] LABS: ALANINE AMINOTRANSFERASE < 6 U/L (12-78); ALBUMIN 1.6 G/DL (3.4-5.0); ALBUMIN/GLOBULIN RATIO 0.4 (1.0-2.7); ALKALINE PHOSPHATASE 227 U/L (46-116); ANION GAP 6 mmol/L (5-15); ASPARTATE AMINO TRANSFERASE 44 U/L (15-37); BLOOD UREA NITROGEN 37 mg/dL (7-18); CALCIUM 9.9 MG/DL (8.5-10.1); CARBON DIOXIDE 32 MMOL/L (21-32); CHLORIDE 111 MMOL/L (98-107); CREATININE 4.5 MG/DL (0.55-1.30); PHOSPHORUS 3.7 MG/DL (2.5-4.9); POTASSIUM 3.5 MMOL/L (3.5-5.1); SODIUM 149 MMOL/L (136-145)
[2017-02-11] MEDS: Midodrine 10mg tab NG SCH ×3 (06:00→22:00)
[2017-02-11 06:03] LABS: BILIRUBIN,DIRECT 1.2 MG/DL (0.0-0.3)
--- NOTE | 2017-02-11 09:02 | General Progress Note ---
Assessment/Plan Status: stable Status Narrative dialysed earlier Assessment/Plan Acute on chronic renal failure- multifactorial CHF DM HTN Sepsis Now: Acute respiratory failure- Intubated - Altered level of consciousness - ESBL (extended spectrum beta-lactamase) producing bacteria infection - Cardiomegaly - DM (diabetes mellitus) - HTN (hypertension) - UTI (urinary tract infection) - Anemia - High Cholestrol - COPD - YELENA - Fatty liver Plan: due trach 02/11 today K & Phos supplement as needed On midodrine dialysis next 02/11- done Transfuse as needed, one unit 02/04 Optimize cardiac and pulmonary status 2D echo results noted avoid nephrotoxics monitor renal parameters Urine studies per orders poor prognosis Subjective ROS Limited/Unobtainable: Yes Allergies: Coded Allergies: PENICILLINS (Unverified Allergy, Unknown, 03/22/15) Objective Last 24 Hour Vital Signs Date Time Temp Pulse Resp B/P (MAP) Pulse Ox O2 Delivery O2 Flow Rate FiO2 02/11/17 08:00 40 02/11/17 07:52 Mechanical Ventilator 15.0 40 02/11/17 07:43 83 02/11/17 07:00 86 22 95/53 100 Mechanical Ventilator 40 02/11/17 06:49 98 24 40 02/11/17 06:00 82 22 105/53 100 Mechanical Ventilator 40 02/11/17 05:00 74 22 110/50 100 Mechanical Ventilator 40 02/11/17 04:40 91 20 40 02/11/17 04:15 Mechanical Ventilator 15.0 40 02/11/17 04:00 98.4 74 23 111/44 100 Mechanical Ventilator 40 02/11/17 04:00 87 02/11/17 04:00 40 02/11/17 03:20 83 20 40 02/11/17 03:00 81 20 106/49 97 Mechanical Ventilator 40 02/11/17 02:00 89 20 105/57 97 Mechanical Ventilator 40 02/11/17 01:18 90 20 40 02/11/17 01:00 76 19 94/51 98 Mechanical Ventilator 40 02/11/17 00:00 76 02/11/17 00:00 40 02/11/17 00:00 98.2 76 18 115/46 98 Mechanical Ventilator 40 02/10/17 23:13 63 20 40 02/10/17 23:00 74 19 95/41 98 Mechanical Ventilator 40 02/10/17 22:00 75 20 110/43 99 Mechanical Ventilator 40 02/10/17 21:10 79 22 40 02/10/17 21:00 76 20 99/43 95 Mechanical Ventilator 40 02/10/17 20:00 98.0 89 20 115/60 95 Mechanical Ventilator 40 02/10/17 19:10 75 20 40 02/10/17 19:00 73 20 110/39 98 Mechanical Ventilator 40 02/10/17 18:00 81 20 109/51 96 Mechanical Ventilator 40 02/10/17 17:00 98.3 89 20 123/49 96 Mechanical Ventilator 40 02/10/17 16:46 91 20 50 02/10/17 16:00 92 02/10/17 16:00 87 20 125/46 97 Mechanical Ventilator 40 02/10/17 16:00 40 02/10/17 15:00 97.8 91 20 123/49 97 Mechanical Ventilator 40 02/10/17 14:55 80 20 50 02/10/17 14:00 79 20 102/50 97 Mechanical Ventilator 40 02/10/17 13:08 86 20 50 02/10/17 13:00 82 20 125/36 97 Mechanical Ventilator 40 02/10/17 12:00 79 02/10/17 12:00 40 02/10/17 12:00 97.8 78 19 99/33 96 Mechanical Ventilator 40 02/10/17 11:15 129/46 02/10/17 11:00 91 20 92/34 91 Mechanical Ventilator 40 02/10/17 10:42 93 21 50 02/10/17 10:00 86 20 112/41 95 Mechanical Ventilator 40 02/10/17 09:06 91 20 50 02/10/17 09:00 98.1 88 20 100/75 94 Mechanical Ventilator 40 Intake and Output 02/11/17 02/12/17 19:00 07:00 Output Total 3100 ml Balance -3100 ml Hemodialysis UF 3100 ml Laboratory Tests 02/10/17 10:00: Prothrombin Time 13.8H, Prothromb Time International Ratio 1.3H 02/10/17 10:45: Arterial Blood pH 7.437, Arterial Blood Partial Pressure CO2 49.5H, Arterial Blood Partial Pressure O2 60.5L, Arterial Blood HCO3 32.6H, Arterial Blood Oxygen Saturation 90.5L, Arterial Blood Base Excess 7.4, Bon Test Positive 02/11/17 04:25: Prothrombin Time 13.0H, Prothromb Time International Ratio 1.2H, White Blood Count 7.5, Red Blood Count 2.99L, Hemoglobin 9.2L, Hematocrit 29.7L, Mean Corpuscular Volume 99, Mean Corpuscular Hemoglobin 30.8, Mean Corpuscular Hemoglobin Concent 31.1L, Red Cell Distribution Width 18.2H, Platelet Count 75L , Mean Platelet Volume 9.4, Neutrophils (%) (Auto) , Lymphocytes (%) (Auto) , Monocytes (%) (Auto) , Eosinophils (%) (Auto) , Basophils (%) (Auto) , Differential Total Cells Counted 100, Neutrophils % (Manual) 75, Lymphocytes % ( Manual) 11L, Monocytes % (Manual) 10, Eosinophils % (Manual) 4H, Basophils % ( Manual) 0, Band Neutrophils 0, Platelet Estimate DecreasedL, Platelet Morphology Normal, Hypochromasia 1+, Anisocytosis 1+, Sodium Level 149H, Potassium Level 3.5, Chloride Level 111H, Carbon Dioxide Level 32, Anion Gap 6, Blood Urea Nitrogen 37H, Creatinine 4.5H, Estimat Glomerular Filtration Rate , Glucose Level 191H, Calcium Level 9.9, Phosphorus Level 3.7, Magnesium Level 2.1 , Total Bilirubin 2.0H, Direct Bilirubin 1.2H, Aspartate Amino Transf (AST/SGOT ) 44H, Alanine Aminotransferase (ALT/SGPT) < 6L, Alkaline Phosphatase 227H, Total Protein 6.1L, Albumin 1.6L, Globulin 4.5, Albumin/Globulin Ratio 0.4L Height (Feet): 5 Height (Inches): 6.00 Weight (Pounds): 257 General Appearance: no apparent distress Cardiovascular: normal rate Respiratory/Chest: decreased breath sounds Abdomen: soft Objective no other change ANDERS MOLINA Feb 11, 2017 09:02
[2017-02-11] MEDS: Nystatin Powder 100,000 units/gm 15gm TOPIC SCH ×3 (09:26→17:53)
--- NOTE | 2017-02-11 09:59 | Infectious Diseases Prog Note ---
Assessment/Plan Assessment/Plan Assesment: Encephalopathy- possibly multifactorial- hepatic encephalopathy, infection- worsening now due to hypercapnea (transferred to ICU 01/21), on bipap> intubated Acute respiratory failure 2ry to hypercapnea, PNA; now ARDS - self-extubated, re -intubated 02/04] -CXR 02/09: diffuse bilateral interstitial and airspace disease -CXR 02/04: Pulmonary parenchymal disease, likely ARDS, overall stable Sepsis 2ry to PNA and Bacteremia, SP HCAP 2ry to ESBL. E.coli, s/p Rx -CXR 02/08: . Extensive bilateral mixed interstitial alveolar lung opacities again noted. -CXR 02/02: Diffuse extensive interstitial and alveolar pulmonary parenchymal disease is unchanged. -repeat sp cx 01/26: +4 MDR A.baumani (I Ceftazidime, R to carbapenem and aminoglycosides, Minocycline; S to Colistin, Polymyxin B) suspect Colonizer ( improving not on tx)-s/p INH Colistin Tx -Sp cx 01/22: +2 ESBK E.coli, +2 C. albicans (colonizer) -CrAg neg, cocci ab pending MRSA bacteremia- with repeat Bcx growing CoNS (?contaminant vs real). BCx cleared 01/26 SP Rx -01/16 04/23 BCx MRSA (S. Vanco JOSE A 1), repeat Bcx 01/19 Neg, 01/21 04/23 CoNS ( contaminant), 01/24 Bcx 04/23 CoNs, Bcx 01/26 Neg x4, 01/28 BCx neg -TTE 01/19(limited study): No aortic regurgitation.Trace mitral regurgitation.Mitral diastolic velocities suggest reduced left ventricular relaxation c/w diastolic dysfunction grade. Moderate tricuspid regurgitation. Leukocytosis, previously worsened up to 24, now recurrent, mild, worsening, new fever r/o new KRISHAN ?aspiration event 02/04- now resolved -Bcx 02/05, Neg; Sp cx 02/06 C. albicans (colonizer) -01/26. pyuria improving (WBC 10-15); ucx C. albicans (colonizer) -10/5 u/a WBC 30-40, ucx yeast (colonizer) -Sp cx ESBL E.coli, diaz (colonizer) Elevated LFTs, improving -[facility] hep panel neg Probable MDR UTI, pyuria, s/p Rx -u/a 01/16 WBC too many to count,nit neg ,leuk est +3; UCx x3 grew >100K MDR A.baumani complex (S. tigecycline/Minocycline, Polymixin B/Colistin), >100K PsA (S. Cefepime, Zosyn; R Cipro/Levo); a prior isolated on a ucx from the same day isolated MDR PsA (I. Cefepime, R ceftzadime, Meropenem; S. Tygecicine, amikacin) -renal u/s: Nondiagnostic exam Metabolic acidosis, 2ry to renal failure- now improved after initiation of HD 01/28 RAMYA on CKD, started on HD 01/28 Cirrhosis Anemia & thrombocytopenia DM type 2 Morbid obesity DNR PLAN: -Last day of empiric IV vancomycin d# 7/ ( given worsening leukocytosis, new fever ) -monitor closely; if HD decompensation add IV Colistin -s/p 18d prophylatic PO Vanco 02/09 -s/p 19d Ertapenem 02/09 -s/p 10d INH Colistin 02/07 for MDR ABC in sputum -02/03 s/p IV Vancomycin #15/14 -s/p 1 dose Amikacin / -s/p 7d Cefepime 10/ -s/p 3d Amikacin 10/ -s/p 7d Minocycline 10/7 -s/p 3d IV vanco 10/ -f/u cocci ab monitor CBC, temperatures monitor BMP monitor CXR vent support, trach eventually Discussed with RN. Poor px; critically ill Subjective Allergies: Coded Allergies: PENICILLINS (Unverified Allergy, Unknown, 03/22/15) Subjective afebrile unchanged lung opacities Bcx NTD leukocytosis resolved. Objective Vital Signs Last 24 Hour Vital Signs Date Time Temp Pulse Resp B/P (MAP) Pulse Ox O2 Delivery O2 Flow Rate FiO2 02/11/17 09:11 84 20 40 02/11/17 09:00 98.3 84 20 140/57 98 Mechanical Ventilator 40 02/11/17 08:00 84 19 100/47 99 Mechanical Ventilator 40 02/11/17 08:00 40 02/11/17 07:52 Mechanical Ventilator 15.0 40 02/11/17 07:43 83 02/11/17 07:00 86 22 95/53 100 Mechanical Ventilator 40 02/11/17 06:49 98 24 40 02/11/17 06:00 82 22 105/53 100 Mechanical Ventilator 40 02/11/17 05:00 74 22 110/50 100 Mechanical Ventilator 40 02/11/17 04:40 91 20 40 02/11/17 04:15 Mechanical Ventilator 15.0 40 02/11/17 04:00 98.4 74 23 111/44 100 Mechanical Ventilator 40 02/11/17 04:00 87 02/11/17 04:00 40 02/11/17 03:20 83 20 40 02/11/17 03:00 81 20 106/49 97 Mechanical Ventilator 40 02/11/17 02:00 89 20 105/57 97 Mechanical Ventilator 40 02/11/17 01:18 90 20 40 02/11/17 01:00 76 19 94/51 98 Mechanical Ventilator 40 02/11/17 00:00 76 02/11/17 00:00 40 02/11/17 00:00 98.2 76 18 115/46 98 Mechanical Ventilator 40 02/10/17 23:13 63 20 40 02/10/17 23:00 74 19 95/41 98 Mechanical Ventilator 40 02/10/17 22:00 75 20 110/43 99 Mechanical Ventilator 40 02/10/17 21:10 79 22 40 02/10/17 21:00 76 20 99/43 95 Mechanical Ventilator 40 02/10/17 20:00 98.0 89 20 115/60 95 Mechanical Ventilator 40 02/10/17 19:10 75 20 40 02/10/17 19:00 73 20 110/39 98 Mechanical Ventilator 40 02/10/17 18:00 81 20 109/51 96 Mechanical Ventilator 40 02/10/17 17:00 98.3 89 20 123/49 96 Mechanical Ventilator 40 02/10/17 16:46 91 20 50 02/10/17 16:00 92 02/10/17 16:00 87 20 125/46 97 Mechanical Ventilator 40 02/10/17 16:00 40 02/10/17 15:00 97.8 91 20 123/49 97 Mechanical Ventilator 40 02/10/17 14:55 80 20 50 02/10/17 14:00 79 20 102/50 97 Mechanical Ventilator 40 02/10/17 13:08 86 20 50 02/10/17 13:00 82 20 125/36 97 Mechanical Ventilator 40 02/10/17 12:00 79 02/10/17 12:00 40 02/10/17 12:00 97.8 78 19 99/33 96 Mechanical Ventilator 40 02/10/17 11:15 129/46 02/10/17 11:00 91 20 92/34 91 Mechanical Ventilator 40 02/10/17 10:42 93 21 50 02/10/17 10:00 86 20 112/41 95 Mechanical Ventilator 40 Height (Feet): 5 Height (Inches): 6.00 Weight (Pounds): 257 Objective HEENT: No pale conjunctivae. No icterus.ETT in place NECK: No lymphadenopathy. CHEST: coarse breath sounds HEART: S1 and S2. ABDOMEN: Soft and obese. EXTREMITIES: No cyanosis. NEUROLOGIC: lethargic. Skin: no rashes reviewed Laboratory Tests Test 02/10/17 10:00 02/10/17 10:45 02/11/17 04:25 02/11/17 09:00 Prothrombin Time 13.8 SEC (9.30-11.50) H 13.0 SEC (9.30-11.50) H Prothromb Time International Ratio 1.3 (0.9-1.1) H 1.2 (0.9-1.1) H Arterial Blood pH 7.437 (7.350-7.450) 7.500 (7.350-7.450) Arterial Blood Partial Pressure CO2 49.5 mmHg (35.0-45.0) H 42.1 mmHg (35.0-45.0) Arterial Blood Partial Pressure O2 60.5 mmHg (75.0-100.0) L 64.0 mmHg (75.0-100.0) L Arterial Blood HCO3 32.6 mmol/L (22.0-26.0) H 32.4 mmol/L (22.0-26.0) H Arterial Blood Oxygen Saturation 90.5 % (92.0-98.0) L 92.2 % (92.0-98.0) Arterial Blood Base Excess 7.4 8.5 Bon Test Positive Positive White Blood Count 7.5 K/UL (4.8-10.8) Red Blood Count 2.99 M/UL (4.20-5.40) L Hemoglobin 9.2 G/DL (12.0-16.0) L Hematocrit 29.7 % (37.0-47.0) L Mean Corpuscular Volume 99 FL (80-99) Mean Corpuscular Hemoglobin 30.8 PG (27.0-31.0) Mean Corpuscular Hemoglobin Concent 31.1 G/DL (32.0-36.0) L Red Cell Distribution Width 18.2 % (11.6-14.8) H Platelet Count 75 K/UL (150-450) L Mean Platelet Volume 9.4 FL (6.5-10.1) Neutrophils (%) (Auto) % (45.0-75.0) Lymphocytes (%) (Auto) % (20.0-45.0) Monocytes (%) (Auto) % (1.0-10.0) Eosinophils (%) (Auto) % (0.0-3.0) Basophils (%) (Auto) % (0.0-2.0) Differential Total Cells Counted 100 Neutrophils % (Manual) 75 % (45-75) Lymphocytes % (Manual) 11 % (20-45) L Monocytes % (Manual) 10 % (1-10) Eosinophils % (Manual) 4 % (0-3) H Basophils % (Manual) 0 % (0-2) Band Neutrophils 0 % (0-8) Platelet Estimate Decreased L Platelet Morphology Normal Hypochromasia 1+ Anisocytosis 1+ Sodium Level 149 MMOL/L (136-145) H Potassium Level 3.5 MMOL/L (3.5-5.1) Chloride Level 111 MMOL/L (98-107) H Carbon Dioxide Level 32 MMOL/L (21-32) Anion Gap 6 mmol/L (5-15) Blood Urea Nitrogen 37 mg/dL (7-18) H Creatinine 4.5 MG/DL (0.55-1.30) H Estimat Glomerular Filtration Rate mL/min (>60) Glucose Level 191 MG/DL (74-106) H Calcium Level 9.9 MG/DL (8.5-10.1) Phosphorus Level 3.7 MG/DL (2.5-4.9) Magnesium Level 2.1 MG/DL (1.8-2.4) Total Bilirubin 2.0 MG/DL (0.2-1.0) H Direct Bilirubin 1.2 MG/DL (0.0-0.3) H Aspartate Amino Transf (AST/SGOT) 44 U/L (15-37) H Alanine Aminotransferase (ALT/SGPT) < 6 U/L (12-78) L Alkaline Phosphatase 227 U/L (46-116) H Total Protein 6.1 G/DL (6.4-8.2) L Albumin 1.6 G/DL (3.4-5.0) L Globulin 4.5 g/dL Albumin/Globulin Ratio 0.4 (1.0-2.7) L Current Medications Medications (Trade) Dose Ordered Sig/Pavel Route PRN Reason Start Time Stop Time Status Last Admin Dose Admin Acetaminophen (Tylenol) 650 mg Q4H PRN ORAL T>100.5 01/21/17 14:30 02/15/17 14:29 02/05/17 07:41 Chlorhexidine Gluconate (Dianne-Hex 2%) 1 applic DAILY@2000 TOPIC 01/25/17 20:00 02/24/17 19:59 02/10/17 20:33 Clotrimazole (Lotrimin) 1 applic EVERY 12 HOURS TOPIC 01/21/17 21:00 02/18/17 13:59 02/11/17 09:26 Dextrose (Dextrose 50%) STAT PRN IV Hypoglycemia 02/06/17 10:45 03/08/17 10:44 Dopamine HCl/ Dextrose 250 ml @ 0 mls/hr Q24H IV 01/25/17 11:15 02/24/17 11:14 01/30/17 10:30 Hydromorphone HCl (Dilaudid) 0.5 mg Q4H PRN IVP Pain (5-10) 02/09/17 18:00 02/15/17 10:44 02/10/17 20:34 Insulin Aspart (NovoLOG) EVERY 4 HOURS SUBQ 02/06/17 12:00 03/08/17 11:59 02/10/17 21:27 Metoclopramide HCl (Reglan) 5 mg Q8H PRN IVP Nausea & Vomiting 01/29/17 11:30 02/28/17 11:29 01/31/17 11:46 Midodrine (Pro-Amatine) 10 mg Q8HR NG 02/03/17 14:00 03/05/17 13:59 02/10/17 06:23 Nitroglycerin (Ntg) 0.4 mg Q5MIN X 3 DOSES PRN SL Prn Chest Pain 01/21/17 14:30 02/15/17 14:29 Nystatin (Nystop Powder) 1 applic THREE TIMES A DAY TOPIC 01/22/17 13:00 02/21/17 12:59 02/11/17 09:26 Ranitidine HCl (Zantac) 150 mg DAILY NG 02/03/17 18:00 03/05/17 17:59 02/10/17 09:11 Rifaximin (Xifaxan) 550 mg EVERY 12 HOURS ORAL 01/29/17 12:00 03/07/17 11:59 02/10/17 20:33 Vancomycin HCl (Vanco rx to dose) 1 ea DAILY PRN MISC Per rx protocol 02/05/17 19:15 03/07/17 19:14 Nereyda Monroe M.D. Feb 11, 2017 09:59
--- NOTE | 2017-02-11 10:02 | Diagnostic Imaging Report ---
Indication: Abdominal distention Technique: Grayscale images of the peritoneum evaluating for ascites Comparison: Complete ultrasound abdomen 08/23/2016. Reference also made to CT scan dated 12/25/2016 Findings: Only minimal ascites is seen in the right lower quadrant. No ascites is seen in the other quadrants Impression: Minimal ascites in the right lower quadrant, insufficient to explain stated clinical history of abdominal distention
[2017-02-11] MEDS ORDERED: Lidocaine 1% 10mg/ml/EPI 0.01mg/ml 50ml INJ ONE (10:47)
--- NOTE | 2017-02-11 10:55 | Diagnostic Imaging Report ---
Indication: DYSPNEA Technique: One view of the chest Comparison: 02/10/2017 Findings: Stable satisfactory positions of endotracheal and nasogastric tube, right jugular temporary dialysis catheter. Bilateral diffuse interstitial and alveolar disease are unchanged Impression: Unchanged, over one day, findings as above.
[2017-02-11] MEDS: DOPamine 400mg/250ml 250 ML IV SCH (11:15)
--- NOTE | 2017-02-11 11:15 | Pulmonolgy Critical Care Note ---
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 Respiratory: monitor respiratory rate, other - trach today Cardiac: continue to monitor HR/BP Renal: F/U I&O, keep IV fluid Infectious Disease: check cultures Gastrointestinal: continue feedings/current rate Endocrine: monitor blood sugar, check TSH Hematologic: monitor H/H Neurologic: PRN Ativan Affect: PRN ativan Time Spent (Minutes): 40 Notes Reviewed: cardio, renal Discussed with: nurses, consultants, correctional casework specialistvice president & general manager [employer] [place] - Objective Last 24 Hour Vital Signs Date Time Temp Pulse Resp B/P (MAP) Pulse Ox O2 Delivery O2 Flow Rate FiO2 02/11/17 10:59 90 20 40 02/11/17 10:00 83 20 105/48 98 Mechanical Ventilator 40 02/11/17 09:11 84 20 40 02/11/17 09:00 98.3 84 20 140/57 98 Mechanical Ventilator 40 02/11/17 08:00 84 19 100/47 99 Mechanical Ventilator 40 02/11/17 08:00 40 02/11/17 07:52 Mechanical Ventilator 15.0 40 02/11/17 07:43 83 02/11/17 07:00 86 22 95/53 100 Mechanical Ventilator 40 02/11/17 06:49 98 24 40 02/11/17 06:00 82 22 105/53 100 Mechanical Ventilator 40 02/11/17 05:00 74 22 110/50 100 Mechanical Ventilator 40 02/11/17 04:40 91 20 40 02/11/17 04:15 Mechanical Ventilator 15.0 40 02/11/17 04:00 98.4 74 23 111/44 100 Mechanical Ventilator 40 02/11/17 04:00 87 02/11/17 04:00 40 02/11/17 03:20 83 20 40 02/11/17 03:00 81 20 106/49 97 Mechanical Ventilator 40 02/11/17 02:00 89 20 105/57 97 Mechanical Ventilator 40 02/11/17 01:18 90 20 40 02/11/17 01:00 76 19 94/51 98 Mechanical Ventilator 40 02/11/17 00:00 76 02/11/17 00:00 40 02/11/17 00:00 98.2 76 18 115/46 98 Mechanical Ventilator 40 02/10/17 23:13 63 20 40 02/10/17 23:00 74 19 95/41 98 Mechanical Ventilator 40 02/10/17 22:00 75 20 110/43 99 Mechanical Ventilator 40 02/10/17 21:10 79 22 40 02/10/17 21:00 76 20 99/43 95 Mechanical Ventilator 40 02/10/17 20:00 98.0 89 20 115/60 95 Mechanical Ventilator 40 02/10/17 19:10 75 20 40 02/10/17 19:00 73 20 110/39 98 Mechanical Ventilator 40 02/10/17 18:00 81 20 109/51 96 Mechanical Ventilator 40 02/10/17 17:00 98.3 89 20 123/49 96 Mechanical Ventilator 40 02/10/17 16:46 91 20 50 02/10/17 16:00 92 02/10/17 16:00 87 20 125/46 97 Mechanical Ventilator 40 02/10/17 16:00 40 02/10/17 15:00 97.8 91 20 123/49 97 Mechanical Ventilator 40 02/10/17 14:55 80 20 50 02/10/17 14:00 79 20 102/50 97 Mechanical Ventilator 40 02/10/17 13:08 86 20 50 02/10/17 13:00 82 20 125/36 97 Mechanical Ventilator 40 02/10/17 12:00 79 02/10/17 12:00 40 02/10/17 12:00 97.8 78 19 99/33 96 Mechanical Ventilator 40 02/10/17 11:15 129/46 Status: awake Condition: critical HEENT: atraumatic Neck: full ROM Lungs: chest wall tender Heart: HR/BP stable, HR/BP unstable, regular Abdomen: soft, non-tender, feeding tube Accucheck: 149 Critical Care - Subjective ROS Limited/Unobtainable: Yes Condition: critical EKG Rhythm: Sinus Rhythm FI02: 40 Vent Support Breath Rate: 20 Vent Support Mode: AC Vent Tidal Volume: 650 Sputum Amount: Moderate PEEP: 0.0 PIP: 50 I&O: Intake and Output 02/11/17 02/12/17 19:00 07:00 Output Total 3100 ml Balance -3100 ml Hemodialysis UF 3100 ml CXR: no change, ET in good position ET-Tube: 7.0 ET Position: 20 Labs: Laboratory Tests Test 02/11/17 04:25 02/11/17 09:00 White Blood Count 7.5 K/UL (4.8-10.8) Red Blood Count 2.99 M/UL (4.20-5.40) L Hemoglobin 9.2 G/DL (12.0-16.0) L Hematocrit 29.7 % (37.0-47.0) L Mean Corpuscular Volume 99 FL (80-99) Mean Corpuscular Hemoglobin 30.8 PG (27.0-31.0) Mean Corpuscular Hemoglobin Concent 31.1 G/DL (32.0-36.0) L Red Cell Distribution Width 18.2 % (11.6-14.8) H Platelet Count 75 K/UL (150-450) L Mean Platelet Volume 9.4 FL (6.5-10.1) Neutrophils (%) (Auto) % (45.0-75.0) Lymphocytes (%) (Auto) % (20.0-45.0) Monocytes (%) (Auto) % (1.0-10.0) Eosinophils (%) (Auto) % (0.0-3.0) Basophils (%) (Auto) % (0.0-2.0) Differential Total Cells Counted 100 Neutrophils % (Manual) 75 % (45-75) Lymphocytes % (Manual) 11 % (20-45) L Monocytes % (Manual) 10 % (1-10) Eosinophils % (Manual) 4 % (0-3) H Basophils % (Manual) 0 % (0-2) Band Neutrophils 0 % (0-8) Platelet Estimate Decreased L Platelet Morphology Normal Hypochromasia 1+ Anisocytosis 1+ Prothrombin Time 13.0 SEC (9.30-11.50) H Prothromb Time International Ratio 1.2 (0.9-1.1) H Sodium Level 149 MMOL/L (136-145) H Potassium Level 3.5 MMOL/L (3.5-5.1) Chloride Level 111 MMOL/L (98-107) H Carbon Dioxide Level 32 MMOL/L (21-32) Anion Gap 6 mmol/L (5-15) Blood Urea Nitrogen 37 mg/dL (7-18) H Creatinine 4.5 MG/DL (0.55-1.30) H Estimat Glomerular Filtration Rate mL/min (>60) Glucose Level 191 MG/DL (74-106) H Calcium Level 9.9 MG/DL (8.5-10.1) Phosphorus Level 3.7 MG/DL (2.5-4.9) Magnesium Level 2.1 MG/DL (1.8-2.4) Total Bilirubin 2.0 MG/DL (0.2-1.0) H Direct Bilirubin 1.2 MG/DL (0.0-0.3) H Aspartate Amino Transf (AST/SGOT) 44 U/L (15-37) H Alanine Aminotransferase (ALT/SGPT) < 6 U/L (12-78) L Alkaline Phosphatase 227 U/L (46-116) H Total Protein 6.1 G/DL (6.4-8.2) L Albumin 1.6 G/DL (3.4-5.0) L Globulin 4.5 g/dL Albumin/Globulin Ratio 0.4 (1.0-2.7) L Arterial Blood pH 7.500 (7.350-7.450) Arterial Blood Partial Pressure CO2 42.1 mmHg (35.0-45.0) Arterial Blood Partial Pressure O2 64.0 mmHg (75.0-100.0) L Arterial Blood HCO3 32.4 mmol/L (22.0-26.0) H Arterial Blood Oxygen Saturation 92.2 % (92.0-98.0) Arterial Blood Base Excess 8.5 Bon Test Positive DIONI TRIANA Feb 11, 2017 11:15
[2017-02-11] MEDS ORDERED: D5 1/2NS 1,000 ML IV SCH ×2 (12:30→15:00)
--- NOTE | 2017-02-11 13:35 | Internal Med Progress Note ---
Subjective Date of Service: Feb 11, 2017 Physician Name Katharina Pond Attending Physician Rl Tee MD Current Medications Medications (Trade) Dose Ordered Sig/Pavel Route PRN Reason Start Time Stop Time Status Last Admin Dose Admin Acetaminophen (Tylenol) 650 mg Q4H PRN ORAL T>100.5 01/21/17 14:30 02/15/17 14:29 02/05/17 07:41 Chlorhexidine Gluconate (Dianne-Hex 2%) 1 applic DAILY@1999 TOPIC 01/25/17 20:00 02/24/17 19:59 02/10/17 20:33 Clotrimazole (Lotrimin) 1 applic EVERY 12 HOURS TOPIC 01/21/17 21:00 02/18/17 13:59 02/11/17 09:26 Dextrose (Dextrose 50%) STAT PRN IV Hypoglycemia 02/06/17 10:45 03/08/17 10:44 Dextrose/Sodium Chloride 1,000 ml @ 30 mls/hr Q24H IV 02/11/17 12:30 03/13/17 12:29 Dopamine HCl/ Dextrose 250 ml @ 0 mls/hr Q24H IV 01/25/17 11:15 02/24/17 11:14 01/30/17 10:30 Hydromorphone HCl (Dilaudid) 0.5 mg Q4H PRN IVP Pain (5-10) 02/09/17 18:00 02/15/17 10:44 02/10/17 20:34 Insulin Aspart (NovoLOG) EVERY 4 HOURS SUBQ 02/06/17 12:00 03/08/17 11:59 02/10/17 21:27 Metoclopramide HCl (Reglan) 5 mg Q8H PRN IVP Nausea & Vomiting 01/29/17 11:30 02/28/17 11:29 01/31/17 11:46 Midodrine (Pro-Amatine) 10 mg Q8HR NG 02/03/17 14:00 03/05/17 13:59 02/10/17 06:23 Nitroglycerin (Ntg) 0.4 mg Q5MIN X 3 DOSES PRN SL Prn Chest Pain 01/21/17 14:30 02/15/17 14:29 Nystatin (Nystop Powder) 1 applic THREE TIMES A DAY TOPIC 01/22/17 13:00 02/21/17 12:59 02/11/17 09:26 Ranitidine HCl (Zantac) 150 mg DAILY NG 02/03/17 18:00 03/05/17 17:59 02/10/17 09:11 Rifaximin (Xifaxan) 550 mg EVERY 12 HOURS ORAL 01/29/17 12:00 03/07/17 11:59 02/10/17 20:33 Vancomycin HCl (Vanco rx to dose) 1 ea DAILY PRN MISC Per rx protocol 02/11/17 10:00 02/11/17 23:59 Allergies: Coded Allergies: PENICILLINS (Unverified Allergy, Unknown, 03/22/15) ROS Limited/Unobtainable: Yes Subjective 76 YO F admitted with altered mental status. Intubated and sedated. ICU . Cover for [facility] Med-Dr Tee. Await tracheostomy on Thu02/11/17 Objective Last Vital Signs Date Time Temp Pulse Resp B/P (MAP) Pulse Ox O2 Delivery O2 Flow Rate FiO2 02/11/17 13:00 80 17 98/45 98 Mechanical Ventilator 40 02/11/17 09:00 98.3 02/11/17 07:52 15.0 Laboratory Tests Test 02/11/17 04:25 02/11/17 09:00 White Blood Count 7.5 K/UL (4.8-10.8) Red Blood Count 2.99 M/UL (4.20-5.40) L Hemoglobin 9.2 G/DL (12.0-16.0) L Hematocrit 29.7 % (37.0-47.0) L Mean Corpuscular Volume 99 FL (80-99) Mean Corpuscular Hemoglobin 30.8 PG (27.0-31.0) Mean Corpuscular Hemoglobin Concent 31.1 G/DL (32.0-36.0) L Red Cell Distribution Width 18.2 % (11.6-14.8) H Platelet Count 75 K/UL (150-450) L Mean Platelet Volume 9.4 FL (6.5-10.1) Neutrophils (%) (Auto) % (45.0-75.0) Lymphocytes (%) (Auto) % (20.0-45.0) Monocytes (%) (Auto) % (1.0-10.0) Eosinophils (%) (Auto) % (0.0-3.0) Basophils (%) (Auto) % (0.0-2.0) Differential Total Cells Counted 100 Neutrophils % (Manual) 75 % (45-75) Lymphocytes % (Manual) 11 % (20-45) L Monocytes % (Manual) 10 % (1-10) Eosinophils % (Manual) 4 % (0-3) H Basophils % (Manual) 0 % (0-2) Band Neutrophils 0 % (0-8) Platelet Estimate Decreased L Platelet Morphology Normal Hypochromasia 1+ Anisocytosis 1+ Prothrombin Time 13.0 SEC (9.30-11.50) H Prothromb Time International Ratio 1.2 (0.9-1.1) H Sodium Level 149 MMOL/L (136-145) H Potassium Level 3.5 MMOL/L (3.5-5.1) Chloride Level 111 MMOL/L (98-107) H Carbon Dioxide Level 32 MMOL/L (21-32) Anion Gap 6 mmol/L (5-15) Blood Urea Nitrogen 37 mg/dL (7-18) H Creatinine 4.5 MG/DL (0.55-1.30) H Estimat Glomerular Filtration Rate mL/min (>60) Glucose Level 191 MG/DL (74-106) H Calcium Level 9.9 MG/DL (8.5-10.1) Phosphorus Level 3.7 MG/DL (2.5-4.9) Magnesium Level 2.1 MG/DL (1.8-2.4) Total Bilirubin 2.0 MG/DL (0.2-1.0) H Direct Bilirubin 1.2 MG/DL (0.0-0.3) H Aspartate Amino Transf (AST/SGOT) 44 U/L (15-37) H Alanine Aminotransferase (ALT/SGPT) < 6 U/L (12-78) L Alkaline Phosphatase 227 U/L (46-116) H Total Protein 6.1 G/DL (6.4-8.2) L Albumin 1.6 G/DL (3.4-5.0) L Globulin 4.5 g/dL Albumin/Globulin Ratio 0.4 (1.0-2.7) L Arterial Blood pH 7.500 (7.350-7.450) Arterial Blood Partial Pressure CO2 42.1 mmHg (35.0-45.0) Arterial Blood Partial Pressure O2 64.0 mmHg (75.0-100.0) L Arterial Blood HCO3 32.4 mmol/L (22.0-26.0) H Arterial Blood Oxygen Saturation 92.2 % (92.0-98.0) Arterial Blood Base Excess 8.5 Bon Test Positive Intake and Output 02/11/17 02/12/17 19:00 07:00 Output Total 3100 ml Balance -3100 ml Hemodialysis UF 3100 ml Objective General Appearance: WD/WN, no apparent distress, moderate distress, obese EENT: PERRL/EOMI, normal ENT inspection Neck: non-tender, normal alignment, supple, normal inspection Cardiovascular: normal peripheral pulses, normal rate, regular rhythm, no gallop/murmur, no JVD Respiratory/Chest: Mechanical vent; chest wall non-tender, lungs with coarse upper air sounds, Bilat wheezes and rales, respiratory distress Abdomen: G-Tube; non tender, no organomegaly, no mass Neurologic: patient resource coordinator 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 Baumanii. See ID note. Continur ertaoenem and vanco per ID (2) CHF (congestive heart failure) Assessment & Plan: LVEF 60-65%. see cardiology note. (3) DM (diabetes mellitus) Assessment & Plan: Continue novolog sliding scale (4) Hypercholesteremia (5) HTN (hypertension) Assessment & Plan: Currently hypotensive. (6) Uncontrolled diabetes mellitus (7) Cirrhosis Assessment & Plan: see GI note. (8) Anemia Assessment & Plan: S/P transfusion 2 units PRBC (9) Altered mental status Assessment & Plan: Worsening. ICU status (10) Renal failure Assessment & Plan: Next hemodialysis 02/09/17. See nephrology note. (11) Respiratory failure Assessment & Plan: Due to CHF. Cont mech vent per pulmonary-await tracheostomy 02/11/17. Continue antibiotic per ID (12) Bradycardia Assessment & Plan: see cardiology note. (13) Hypotension Assessment & Plan: Continue dopamine Status: not improved Assessment/Plan Await tracheostomy Thu02/11/17. KATHARINA POND Feb 11, 2017 13:35
--- NOTE | 2017-02-11 13:52 | Cardiac Electrophysiology PN ---
Assessment/Plan Assessment/Plan 1. CHF due to diastolic dysfunction with EF 60 %. On dialysis. EKG NSR with low voltage QRS. 2. S/P Shock, resolved.Off pressors 3. Bradycardia resolved, off dopamine. On midodrine 5 tid 4. Vent dependent respiratory failure. Self extubated on 02/04 and was reintubated an hour later. Tracheostomy today pending. 5. Hyperlipidemia. 6. Cirrhosis 7. Anemia with hemoglobin of 8. 8. Hypernatremia Na still 149 today 02/11/17 9. DNR 10. ESRD on HD 11. DM 12. Dysphagia, PEG after tracheostomy DW RN Subjective Subjective In ICU on Vent.Had HD 3 liters today. No significant change. Tracheostomy today pending. Objective Last 24 Hour Vital Signs Date Time Temp Pulse Resp B/P (MAP) Pulse Ox O2 Delivery O2 Flow Rate FiO2 02/11/17 13:00 80 17 98/45 98 Mechanical Ventilator 40 02/11/17 12:46 90 20 40 02/11/17 12:04 81 02/11/17 12:00 81 20 93/42 98 Mechanical Ventilator 40 02/11/17 12:00 40 02/11/17 11:15 98/45 02/11/17 11:00 84 20 113/51 99 Mechanical Ventilator 40 02/11/17 10:59 90 20 40 02/11/17 10:00 83 20 105/48 98 Mechanical Ventilator 40 02/11/17 09:11 84 20 40 02/11/17 09:00 98.3 84 20 140/57 98 Mechanical Ventilator 40 02/11/17 08:00 84 19 100/47 99 Mechanical Ventilator 40 02/11/17 08:00 40 02/11/17 07:52 Mechanical Ventilator 15.0 40 02/11/17 07:43 83 02/11/17 07:00 86 22 95/53 100 Mechanical Ventilator 40 02/11/17 06:49 98 24 40 02/11/17 06:00 82 22 105/53 100 Mechanical Ventilator 40 02/11/17 05:00 74 22 110/50 100 Mechanical Ventilator 40 02/11/17 04:40 91 20 40 02/11/17 04:15 Mechanical Ventilator 15.0 40 02/11/17 04:00 98.4 74 23 111/44 100 Mechanical Ventilator 40 02/11/17 04:00 87 02/11/17 04:00 40 02/11/17 03:20 83 20 40 02/11/17 03:00 81 20 106/49 97 Mechanical Ventilator 40 02/11/17 02:00 89 20 105/57 97 Mechanical Ventilator 40 02/11/17 01:18 90 20 40 02/11/17 01:00 76 19 94/51 98 Mechanical Ventilator 40 02/11/17 00:00 76 02/11/17 00:00 40 02/11/17 00:00 98.2 76 18 115/46 98 Mechanical Ventilator 40 02/10/17 23:13 63 20 40 02/10/17 23:00 74 19 95/41 98 Mechanical Ventilator 40 02/10/17 22:00 75 20 110/43 99 Mechanical Ventilator 40 02/10/17 21:10 79 22 40 02/10/17 21:00 76 20 99/43 95 Mechanical Ventilator 40 02/10/17 20:00 98.0 89 20 115/60 95 Mechanical Ventilator 40 02/10/17 19:10 75 20 40 02/10/17 19:00 73 20 110/39 98 Mechanical Ventilator 40 02/10/17 18:00 81 20 109/51 96 Mechanical Ventilator 40 02/10/17 17:00 98.3 89 20 123/49 96 Mechanical Ventilator 40 02/10/17 16:46 91 20 50 02/10/17 16:00 92 02/10/17 16:00 87 20 125/46 97 Mechanical Ventilator 40 02/10/17 16:00 40 02/10/17 15:00 97.8 91 20 123/49 97 Mechanical Ventilator 40 02/10/17 14:55 80 20 50 02/10/17 14:00 79 20 102/50 97 Mechanical Ventilator 40 Intake and Output 02/11/17 02/12/17 19:00 07:00 Output Total 3100 ml Balance -3100 ml Hemodialysis UF 3100 ml Laboratory Tests Test 02/11/17 04:25 02/11/17 09:00 White Blood Count 7.5 K/UL (4.8-10.8) Red Blood Count 2.99 M/UL (4.20-5.40) L Hemoglobin 9.2 G/DL (12.0-16.0) L Hematocrit 29.7 % (37.0-47.0) L Mean Corpuscular Volume 99 FL (80-99) Mean Corpuscular Hemoglobin 30.8 PG (27.0-31.0) Mean Corpuscular Hemoglobin Concent 31.1 G/DL (32.0-36.0) L Red Cell Distribution Width 18.2 % (11.6-14.8) H Platelet Count 75 K/UL (150-450) L Mean Platelet Volume 9.4 FL (6.5-10.1) Neutrophils (%) (Auto) % (45.0-75.0) Lymphocytes (%) (Auto) % (20.0-45.0) Monocytes (%) (Auto) % (1.0-10.0) Eosinophils (%) (Auto) % (0.0-3.0) Basophils (%) (Auto) % (0.0-2.0) Differential Total Cells Counted 100 Neutrophils % (Manual) 75 % (45-75) Lymphocytes % (Manual) 11 % (20-45) L Monocytes % (Manual) 10 % (1-10) Eosinophils % (Manual) 4 % (0-3) H Basophils % (Manual) 0 % (0-2) Band Neutrophils 0 % (0-8) Platelet Estimate Decreased L Platelet Morphology Normal Hypochromasia 1+ Anisocytosis 1+ Prothrombin Time 13.0 SEC (9.30-11.50) H Prothromb Time International Ratio 1.2 (0.9-1.1) H Sodium Level 149 MMOL/L (136-145) H Potassium Level 3.5 MMOL/L (3.5-5.1) Chloride Level 111 MMOL/L (98-107) H Carbon Dioxide Level 32 MMOL/L (21-32) Anion Gap 6 mmol/L (5-15) Blood Urea Nitrogen 37 mg/dL (7-18) H Creatinine 4.5 MG/DL (0.55-1.30) H Estimat Glomerular Filtration Rate mL/min (>60) Glucose Level 191 MG/DL (74-106) H Calcium Level 9.9 MG/DL (8.5-10.1) Phosphorus Level 3.7 MG/DL (2.5-4.9) Magnesium Level 2.1 MG/DL (1.8-2.4) Total Bilirubin 2.0 MG/DL (0.2-1.0) H Direct Bilirubin 1.2 MG/DL (0.0-0.3) H Aspartate Amino Transf (AST/SGOT) 44 U/L (15-37) H Alanine Aminotransferase (ALT/SGPT) < 6 U/L (12-78) L Alkaline Phosphatase 227 U/L (46-116) H Total Protein 6.1 G/DL (6.4-8.2) L Albumin 1.6 G/DL (3.4-5.0) L Globulin 4.5 g/dL Albumin/Globulin Ratio 0.4 (1.0-2.7) L Arterial Blood pH 7.500 (7.350-7.450) Arterial Blood Partial Pressure CO2 42.1 mmHg (35.0-45.0) Arterial Blood Partial Pressure O2 64.0 mmHg (75.0-100.0) L Arterial Blood HCO3 32.4 mmol/L (22.0-26.0) H Arterial Blood Oxygen Saturation 92.2 % (92.0-98.0) Arterial Blood Base Excess 8.5 Bon Test Positive Objective HEAD AND NECK: No JVD.Orally intubated.NG tube. Right IJ Mahurkar Catheter in place LUNGS: Coarse rhonchi CARDIOVASCULAR: Regular S1 and S2 with no gallop or murmur. ABDOMEN: Soft and nontender and obese. EXTREMITIES: 1+ pitting edema. DEAN SHAW Feb 11, 2017 13:51
--- NOTE | 2017-02-11 14:29 | General Progress Note ---
Progress Note Progress Note ENT progress note Anesthesia called me indio AM re DNR status per family wishes and surgery. They need to clarify the DNR status ad placement of trach in this high risks pts. According to rena. this is a new policy of the Anest. Dept. They did call the pts daughter-but as of 1329 had not heard back from her- therefore case was cancelled. I will rescheduled once this issue is clarified per anesthesia. GENARO CAMPOS Feb 11, 2017 14:29
[2017-02-11] MEDS: D5 1/2NS 1,000 ML IV SCH (17:55)
[2017-02-11] MEDS: Dyna-Hex 2% Top Sol 2oz TOPIC SCH (19:50)
--- NOTE | 2017-02-11 21:41 | General Progress Note ---
Assessment/Plan Assessment/Plan ASSESSMENT AND RECOMMENDATIONS 1.Thrombocytopenia 2/2 sepsis --> downtrending --> give plts if below 10k or if below 20k and febrile --> ID following 2. Coagulopathy secondary to underlying liver cirrhosis ---> s/p Vitamin K 10 mg sq x1 and 2 units FFP --> slowly improving 3. Thrombocytopenia secondary to underlying splenomegaly. 4. Anemia 2/2 chronic disease --> Watch HH, transfuse if below 8 5. Leukocytosis secondary to underlying infection. On abx per id service --> wbc count has now normalized 6. Sepsis 2/2 UTI 7. Altered mental status 8. RAMYA on CKD,on hemodialysis Subjective ROS Limited/Unobtainable: Yes Allergies: Coded Allergies: PENICILLINS (Unverified Allergy, Unknown, 03/22/15) Subjective trach placement cancelled, peg pending Objective Last 24 Hour Vital Signs Date Time Temp Pulse Resp B/P (MAP) Pulse Ox O2 Delivery O2 Flow Rate FiO2 02/11/17 20:52 81 20 40 02/11/17 20:00 98.3 80 19 98/46 97 Mechanical Ventilator 40 02/11/17 20:00 40 02/11/17 19:10 75 20 40 02/11/17 19:00 71 20 93/42 99 Mechanical Ventilator 40 02/11/17 18:00 75 20 95/45 98 Mechanical Ventilator 40 02/11/17 17:09 80 20 40 02/11/17 17:00 98.2 78 19 74/41 98 Mechanical Ventilator 40 02/11/17 16:00 74 19 95/47 98 Mechanical Ventilator 40 02/11/17 16:00 40 02/11/17 15:40 135 02/11/17 15:00 79 19 100/41 98 Mechanical Ventilator 40 02/11/17 14:54 80 20 40 02/11/17 14:00 78 20 103/46 98 Mechanical Ventilator 40 02/11/17 13:00 80 17 98/45 98 Mechanical Ventilator 40 02/11/17 12:46 90 20 40 02/11/17 12:04 81 02/11/17 12:00 81 20 93/42 98 Mechanical Ventilator 40 02/11/17 12:00 40 02/11/17 11:15 98/45 02/11/17 11:00 84 20 113/51 99 Mechanical Ventilator 40 02/11/17 10:59 90 20 40 02/11/17 10:00 83 20 105/48 98 Mechanical Ventilator 40 02/11/17 09:11 84 20 40 02/11/17 09:00 98.3 84 20 140/57 98 Mechanical Ventilator 40 02/11/17 08:00 84 19 100/47 99 Mechanical Ventilator 40 02/11/17 08:00 40 02/11/17 07:52 Mechanical Ventilator 15.0 40 02/11/17 07:43 83 02/11/17 07:00 86 22 95/53 100 Mechanical Ventilator 40 02/11/17 06:49 98 24 40 02/11/17 06:00 82 22 105/53 100 Mechanical Ventilator 40 02/11/17 05:00 74 22 110/50 100 Mechanical Ventilator 40 02/11/17 04:40 91 20 40 02/11/17 04:15 Mechanical Ventilator 15.0 40 02/11/17 04:00 98.4 74 23 111/44 100 Mechanical Ventilator 40 02/11/17 04:00 87 02/11/17 04:00 40 02/11/17 03:20 83 20 40 02/11/17 03:00 81 20 106/49 97 Mechanical Ventilator 40 02/11/17 02:00 89 20 105/57 97 Mechanical Ventilator 40 02/11/17 01:18 90 20 40 02/11/17 01:00 76 19 94/51 98 Mechanical Ventilator 40 02/11/17 00:00 76 02/11/17 00:00 40 02/11/17 00:00 98.2 76 18 115/46 98 Mechanical Ventilator 40 02/10/17 23:13 63 20 40 02/10/17 23:00 74 19 95/41 98 Mechanical Ventilator 40 02/10/17 22:00 75 20 110/43 99 Mechanical Ventilator 40 Intake and Output 02/11/17 02/12/17 19:00 07:00 Intake Total 30 ml Output Total 3100 ml Balance -3070 ml IV Total 30 ml Hemodialysis UF 3100 ml # Bowel Movements 50 Laboratory Tests 02/11/17 04:25: White Blood Count 7.5, Red Blood Count 2.99L, Hemoglobin 9.2L, Hematocrit 29.7L , Mean Corpuscular Volume 99, Mean Corpuscular Hemoglobin 30.8, Mean Corpuscular Hemoglobin Concent 31.1L, Red Cell Distribution Width 18.2H, Platelet Count 75L, Mean Platelet Volume 9.4, Neutrophils (%) (Auto) , Lymphocytes (%) (Auto) , Monocytes (%) (Auto) , Eosinophils (%) (Auto) , Basophils (%) (Auto) , Differential Total Cells Counted 100, Neutrophils % ( Manual) 75, Lymphocytes % (Manual) 11L, Monocytes % (Manual) 10, Eosinophils % ( Manual) 4H, Basophils % (Manual) 0, Band Neutrophils 0, Platelet Estimate DecreasedL, Platelet Morphology Normal, Hypochromasia 1+, Anisocytosis 1+, Prothrombin Time 13.0H, Prothromb Time International Ratio 1.2H, Sodium Level 149H, Potassium Level 3.5, Chloride Level 111H, Carbon Dioxide Level 32, Anion Gap 6, Blood Urea Nitrogen 37H, Creatinine 4.5H, Estimat Glomerular Filtration Rate , Glucose Level 191H, Calcium Level 9.9, Phosphorus Level 3.7, Magnesium Level 2.1, Total Bilirubin 2.0H, Direct Bilirubin 1.2H, Aspartate Amino Transf ( AST/SGOT) 44H, Alanine Aminotransferase (ALT/SGPT) < 6L, Alkaline Phosphatase 227H, Total Protein 6.1L, Albumin 1.6L, Globulin 4.5, Albumin/Globulin Ratio 0.4L 02/11/17 09:00: Arterial Blood pH 7.500H, Arterial Blood Partial Pressure CO2 42.1, Arterial Blood Partial Pressure O2 64.0L, Arterial Blood HCO3 32.4H, Arterial Blood Oxygen Saturation 92.2, Arterial Blood Base Excess 8.5, Bon Test Positive Height (Feet): 5 Height (Inches): 5.00 Weight (Pounds): 256 General Appearance: no apparent distress EENT: normal ENT inspection Neck: normal alignment Cardiovascular: normal rate Respiratory/Chest: chest wall non-tender 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
--- NOTE | 2017-02-11 22:11 | General Progress Note ---
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 - dysphagia Recommendations - continue off of lactulose - continue Xifaxan - Continue TF - follow labs - HD/lytes per Renal - free water - PEG at 11 am tomorrow Subjective Allergies: Coded Allergies: PENICILLINS (Unverified Allergy, Unknown, 03/22/15) Subjective above noted trach postponed tolerating TF d/w DTR re PEG placement for higher risks of procedure in setting of cirrhosis explained all questions answered Objective Last 24 Hour Vital Signs Date Time Temp Pulse Resp B/P (MAP) Pulse Ox O2 Delivery O2 Flow Rate FiO2 02/11/17 20:52 81 20 40 02/11/17 20:00 98.3 80 19 98/46 97 Mechanical Ventilator 40 02/11/17 20:00 40 02/11/17 19:10 75 20 40 02/11/17 19:00 71 20 93/42 99 Mechanical Ventilator 40 02/11/17 18:00 75 20 95/45 98 Mechanical Ventilator 40 02/11/17 17:09 80 20 40 02/11/17 17:00 98.2 78 19 74/41 98 Mechanical Ventilator 40 02/11/17 16:00 74 19 95/47 98 Mechanical Ventilator 40 02/11/17 16:00 40 02/11/17 15:40 135 02/11/17 15:00 79 19 100/41 98 Mechanical Ventilator 40 02/11/17 14:54 80 20 40 02/11/17 14:00 78 20 103/46 98 Mechanical Ventilator 40 02/11/17 13:00 80 17 98/45 98 Mechanical Ventilator 40 02/11/17 12:46 90 20 40 02/11/17 12:04 81 02/11/17 12:00 81 20 93/42 98 Mechanical Ventilator 40 02/11/17 12:00 40 02/11/17 11:15 98/45 02/11/17 11:00 84 20 113/51 99 Mechanical Ventilator 40 02/11/17 10:59 90 20 40 02/11/17 10:00 83 20 105/48 98 Mechanical Ventilator 40 02/11/17 09:11 84 20 40 02/11/17 09:00 98.3 84 20 140/57 98 Mechanical Ventilator 40 02/11/17 08:00 84 19 100/47 99 Mechanical Ventilator 40 02/11/17 08:00 40 02/11/17 07:52 Mechanical Ventilator 15.0 40 02/11/17 07:43 83 02/11/17 07:00 86 22 95/53 100 Mechanical Ventilator 40 02/11/17 06:49 98 24 40 02/11/17 06:00 82 22 105/53 100 Mechanical Ventilator 40 02/11/17 05:00 74 22 110/50 100 Mechanical Ventilator 40 02/11/17 04:40 91 20 40 02/11/17 04:15 Mechanical Ventilator 15.0 40 02/11/17 04:00 98.4 74 23 111/44 100 Mechanical Ventilator 40 02/11/17 04:00 87 02/11/17 04:00 40 02/11/17 03:20 83 20 40 02/11/17 03:00 81 20 106/49 97 Mechanical Ventilator 40 02/11/17 02:00 89 20 105/57 97 Mechanical Ventilator 40 02/11/17 01:18 90 20 40 02/11/17 01:00 76 19 94/51 98 Mechanical Ventilator 40 02/11/17 00:00 76 02/11/17 00:00 40 02/11/17 00:00 98.2 76 18 115/46 98 Mechanical Ventilator 40 02/10/17 23:13 63 20 40 02/10/17 23:00 74 19 95/41 98 Mechanical Ventilator 40 Intake and Output 02/11/17 02/12/17 19:00 07:00 Intake Total 30 ml Output Total 3100 ml Balance -3070 ml IV Total 30 ml Hemodialysis UF 3100 ml # Bowel Movements 50 Laboratory Tests 02/11/17 04:25: White Blood Count 7.5, Red Blood Count 2.99L, Hemoglobin 9.2L, Hematocrit 29.7L , Mean Corpuscular Volume 99, Mean Corpuscular Hemoglobin 30.8, Mean Corpuscular Hemoglobin Concent 31.1L, Red Cell Distribution Width 18.2H, Platelet Count 75L, Mean Platelet Volume 9.4, Neutrophils (%) (Auto) , Lymphocytes (%) (Auto) , Monocytes (%) (Auto) , Eosinophils (%) (Auto) , Basophils (%) (Auto) , Differential Total Cells Counted 100, Neutrophils % ( Manual) 75, Lymphocytes % (Manual) 11L, Monocytes % (Manual) 10, Eosinophils % ( Manual) 4H, Basophils % (Manual) 0, Band Neutrophils 0, Platelet Estimate DecreasedL, Platelet Morphology Normal, Hypochromasia 1+, Anisocytosis 1+, Prothrombin Time 13.0H, Prothromb Time International Ratio 1.2H, Sodium Level 149H, Potassium Level 3.5, Chloride Level 111H, Carbon Dioxide Level 32, Anion Gap 6, Blood Urea Nitrogen 37H, Creatinine 4.5H, Estimat Glomerular Filtration Rate , Glucose Level 191H, Calcium Level 9.9, Phosphorus Level 3.7, Magnesium Level 2.1, Total Bilirubin 2.0H, Direct Bilirubin 1.2H, Aspartate Amino Transf ( AST/SGOT) 44H, Alanine Aminotransferase (ALT/SGPT) < 6L, Alkaline Phosphatase 227H, Total Protein 6.1L, Albumin 1.6L, Globulin 4.5, Albumin/Globulin Ratio 0.4L 02/11/17 09:00: Arterial Blood pH 7.500H, Arterial Blood Partial Pressure CO2 42.1, Arterial Blood Partial Pressure O2 64.0L, Arterial Blood HCO3 32.4H, Arterial Blood Oxygen Saturation 92.2, Arterial Blood Base Excess 8.5, Bon Test Positive Height (Feet): 5 Height (Inches): 5.00 Weight (Pounds): 256 Objective Obese WW NCAT, (+) ETT and NGT supple CTA RRR soft ND NT (+) edema KIERSTEN Ayon Feb 11, 2017 22:11
--- NOTE | 2017-02-11 22:53 | General Progress Note ---
Assessment/Plan Status: unchanged Assessment/Plan encephalopathy Subjective Allergies: Coded Allergies: PENICILLINS (Unverified Allergy, Unknown, 03/22/15) Subjective lethargic.agitated at times unchanged since previous encounter Objective Last 24 Hour Vital Signs Date Time Temp Pulse Resp B/P (MAP) Pulse Ox O2 Delivery O2 Flow Rate FiO2 02/11/17 22:30 128 20 40 02/11/17 22:12 Non-Rebreather 15.0 100 02/11/17 22:10 81 20 Mechanical Ventilator 40 02/11/17 20:52 81 20 40 02/11/17 20:00 98.3 80 19 98/46 97 Mechanical Ventilator 40 02/11/17 20:00 40 02/11/17 19:10 75 20 40 02/11/17 19:00 71 20 93/42 99 Mechanical Ventilator 40 02/11/17 18:00 75 20 95/45 98 Mechanical Ventilator 40 02/11/17 17:09 80 20 40 02/11/17 17:00 98.2 78 19 74/41 98 Mechanical Ventilator 40 02/11/17 16:00 74 19 95/47 98 Mechanical Ventilator 40 02/11/17 16:00 40 02/11/17 15:40 135 02/11/17 15:00 79 19 100/41 98 Mechanical Ventilator 40 02/11/17 14:54 80 20 40 02/11/17 14:00 78 20 103/46 98 Mechanical Ventilator 40 02/11/17 13:00 80 17 98/45 98 Mechanical Ventilator 40 02/11/17 12:46 90 20 40 02/11/17 12:04 81 02/11/17 12:00 81 20 93/42 98 Mechanical Ventilator 40 02/11/17 12:00 40 02/11/17 11:15 98/45 02/11/17 11:00 84 20 113/51 99 Mechanical Ventilator 40 02/11/17 10:59 90 20 40 02/11/17 10:00 83 20 105/48 98 Mechanical Ventilator 40 02/11/17 09:11 84 20 40 02/11/17 09:00 98.3 84 20 140/57 98 Mechanical Ventilator 40 02/11/17 08:00 84 19 100/47 99 Mechanical Ventilator 40 02/11/17 08:00 40 02/11/17 07:52 Mechanical Ventilator 15.0 40 02/11/17 07:43 83 02/11/17 07:00 86 22 95/53 100 Mechanical Ventilator 40 02/11/17 06:49 98 24 40 02/11/17 06:00 82 22 105/53 100 Mechanical Ventilator 40 02/11/17 05:00 74 22 110/50 100 Mechanical Ventilator 40 02/11/17 04:40 91 20 40 02/11/17 04:15 Mechanical Ventilator 15.0 40 02/11/17 04:00 98.4 74 23 111/44 100 Mechanical Ventilator 40 02/11/17 04:00 87 02/11/17 04:00 40 02/11/17 03:20 83 20 40 02/11/17 03:00 81 20 106/49 97 Mechanical Ventilator 40 02/11/17 02:00 89 20 105/57 97 Mechanical Ventilator 40 02/11/17 01:18 90 20 40 02/11/17 01:00 76 19 94/51 98 Mechanical Ventilator 40 02/11/17 00:00 76 02/11/17 00:00 40 02/11/17 00:00 98.2 76 18 115/46 98 Mechanical Ventilator 40 02/10/17 23:13 63 20 40 02/10/17 23:00 74 19 95/41 98 Mechanical Ventilator 40 Intake and Output 02/11/17 02/12/17 19:00 07:00 Intake Total 30 ml Output Total 3100 ml Balance -3070 ml IV Total 30 ml Hemodialysis UF 3100 ml # Bowel Movements 50 Laboratory Tests 02/11/17 04:25: White Blood Count 7.5, Red Blood Count 2.99L, Hemoglobin 9.2L, Hematocrit 29.7L , Mean Corpuscular Volume 99, Mean Corpuscular Hemoglobin 30.8, Mean Corpuscular Hemoglobin Concent 31.1L, Red Cell Distribution Width 18.2H, Platelet Count 75L, Mean Platelet Volume 9.4, Neutrophils (%) (Auto) , Lymphocytes (%) (Auto) , Monocytes (%) (Auto) , Eosinophils (%) (Auto) , Basophils (%) (Auto) , Differential Total Cells Counted 100, Neutrophils % ( Manual) 75, Lymphocytes % (Manual) 11L, Monocytes % (Manual) 10, Eosinophils % ( Manual) 4H, Basophils % (Manual) 0, Band Neutrophils 0, Platelet Estimate DecreasedL, Platelet Morphology Normal, Hypochromasia 1+, Anisocytosis 1+, Prothrombin Time 13.0H, Prothromb Time International Ratio 1.2H, Sodium Level 149H, Potassium Level 3.5, Chloride Level 111H, Carbon Dioxide Level 32, Anion Gap 6, Blood Urea Nitrogen 37H, Creatinine 4.5H, Estimat Glomerular Filtration Rate , Glucose Level 191H, Calcium Level 9.9, Phosphorus Level 3.7, Magnesium Level 2.1, Total Bilirubin 2.0H, Direct Bilirubin 1.2H, Aspartate Amino Transf ( AST/SGOT) 44H, Alanine Aminotransferase (ALT/SGPT) < 6L, Alkaline Phosphatase 227H, Total Protein 6.1L, Albumin 1.6L, Globulin 4.5, Albumin/Globulin Ratio 0.4L 02/11/17 09:00: Arterial Blood pH 7.500H, Arterial Blood Partial Pressure CO2 42.1, Arterial Blood Partial Pressure O2 64.0L, Arterial Blood HCO3 32.4H, Arterial Blood Oxygen Saturation 92.2, Arterial Blood Base Excess 8.5, Bon Test Positive Height (Feet): 5 Height (Inches): 5.00 Weight (Pounds): 256 General Appearance: lethargic, obese Neurologic: unresponsive Oj Medel M.D. Feb 11, 2017 22:53
--- NOTE | 2017-02-11 23:12 | Emergency Room Report ---
History of Present Illness General Chief Complaint: Altered Level of Consciousness Source: Medical Record, PMD Present Illness HPI This is a 77-year-old female who had a complicated hospital course. She was omitted for altered mental status and sepsis. She was intubated and self extubated twice. She self x-ray to herself today. Is asked the nursing staff to evaluate her for reintubation. On my arrival, patient is on a nonrebreather and his address or distress. She is tachycardic. Occupation is only 93% on 100 % nonrebreather mask. I proceeded to intubate the patient without difficulty. X-ray confirm endotracheal tube placement. Allergies: Coded Allergies: PENICILLINS (Unverified Allergy, Unknown, 03/22/15) Patient History Past Medical History: see triage record, old chart reviewed Past Surgical History: other Pertinent Family History: none Social History: Denies: smoking Now: No Immunizations: other Reviewed Nursing Documentation: PMH: Agreed, PSxH: Agreed Nursing Documentation-PMH Past Medical History: No History, Except For Hx Cardiac Problems: Yes - Anemia, Cardiomyopathy, HF, Artherosclerotic heart disease, Angina pectoris Hx Hypertension: Yes - Hypercholesteremia, Hyperlipidemia, Orthostatic hypotension Hx Pacemaker: No Hx Asthma: No - Hypomagnesemia, Hyperkalemia Hx COPD: Yes - Bronchitis, PNA, Acute Resp Fail., Thrombocytopenia Hx Diabetes: Yes - Gout, Ascites Hx Cancer: No - Abd actinomycosis, malnutrition, Gastrostomy, Dysphagia Hx Gastrointestinal Problems: Yes - GERD, Ulcerative colitis, Morbid obesity, cholelithiasis, Acute cholecystit History Of Psychiatric Problem: Yes - Insomnia, Bipolar, AMS, Major depressive disorder, Alzheimer's Hx Neurological Problems: Yes - Diabetic neuropathy, Obstructive sleep apnea, Muscle weakness Hx Cerebrovascular Accident: No - Encephalopathy Hx Seizures: No - Erythema Intertrigo Review of Systems Respiratory: Reports: shortness of breath All Other Systems: limited - Secondary respiratory distress status Physical Exam Vital Signs Date Time Temp Pulse Resp B/P (MAP) Pulse Ox O2 Delivery O2 Flow Rate FiO2 01/16/17 09:56 97.2 76 26 130/56 96 Nasal Cannula 2.0 01/18/17 21:17 28 tachycardia Sp02 EP Interpretation: abnormal General Appearance: moderate distress, obese Head: normocephalic, atraumatic Eyes: bilateral eye PERRL, bilateral eye EOMI ENT: other - Thick mucus in oropharynx Neck: full range of motion, supple, no meningismus Respiratory: chest non-tender, respiratory distress, decreased breath sounds, accessory muscle use, rhonchi Cardiovascular #1: regular rate, rhythm, no murmur, tachycardia Gastrointestinal: normal bowel sounds, non tender, no mass, no organomegaly, no bruit, non-distended Musculoskeletal: back normal Skin: warm/dry Procedures Critical Care Time Critical Care Time Critical care is mandated in this patient who presented with respiratory distress. Patient require my urgent intervention to attenuate the risks of metabolic collapse which may lead to cardiovascular collapse and . Critical care time is 35 minutes excluding any reportable procedure. Critical care time included evaluation, multiple reevaluation, looking at old charts, interpreting laboratory and diagnostic data, discussing case with patient and family and consultants, and charting. Intubation Intubation : Consent: Emergent Intubation Method: orotracheal Tube Size (cm): 7.0 Medications: Etomidate, Succinylcholine Breath Sounds after Intubation: equal Intubation Complications: no complications Post Intubation Xray: Yes Progress/Xray Impression: ETT in good position. b/l infiltrates. rt > left Attempts: One Patient Tolerated: Well Complications: None Medical Decision Making Diagnostic Impression: Primary Impression: Altered mental status Qualified Codes: R41.82 - Altered mental status, unspecified Additional Impressions: Encephalopathy acute Respiratory failure requiring intubation Sepsis Qualified Codes: A41.9 - Sepsis, unspecified organism Pneumonia Qualified Codes: J18.9 - Pneumonia, unspecified organism ER Course Patient with respiratory failure requiring intubation. She was intubated without difficulty. She will need tracheostomy in the future. There was evidence of tracheal edema already. Chest X-Ray Diagnostic Results Chest X-Ray Diagnostic Results : Chest X-Ray Ordered: Yes # of Views/Limited/Complete: 1 View Indication: Shortness of Breath EP Interpretation: Yes Interpretation: no effusion, no pneumothorax, other - Endotracheal tube in good position. Bilateral infiltrates Impression: Other - ETT in good position. no ptx Electronically Signed by: Electronically signed by Sebastián Reece MD Last Vital Signs Date Time Temp Pulse Resp B/P (MAP) Pulse Ox O2 Delivery O2 Flow Rate FiO2 02/11/17 22:30 128 20 40 02/11/17 22:12 Non-Rebreather 15.0 02/11/17 20:00 98.3 98/46 97 Status: improved Disposition: ADMITTED INPATIENT Condition: Serious Referrals: Rl Tee MD (PCP) SEBASTIÁN REECE M.D. Feb 11, 2017 23:12
[2017-02-12] VITALS (24 sets, daily range): BP systolic 91–134; BP diastolic 34–94
[2017-02-12] MEDS: NovoLOG Insulin Flexpen SUBQ SCH ×6 (01:03→21:00)
[2017-02-12 05:21] LABS: HEMATOCRIT 28.2 % (37.0-47.0); HEMOGLOBIN 8.8 G/DL (12.0-16.0); MEAN CORPUSCULAR VOLUME 98 FL (80-99); PLATELET COUNT 62 K/UL (150-450); RED BLOOD COUNT 2.87 M/UL (4.20-5.40); RED CELL DISTRIBUTION WIDTH 18.1 % (11.6-14.8); WHITE BLOOD COUNT 6.7 K/UL (4.8-10.8)
[2017-02-12] MEDS: Midodrine 10mg tab NG SCH ×3 (06:00→22:00)
[2017-02-12] MEDS: Hydromorphone 0.5mg/0.5ml inj IVP PRN ×3 (06:00→20:21)
[2017-02-12 06:15] LABS: ALANINE AMINOTRANSFERASE < 6 U/L (12-78); ALBUMIN 1.6 G/DL (3.4-5.0); ALBUMIN/GLOBULIN RATIO 0.4 (1.0-2.7); ALKALINE PHOSPHATASE 214 U/L (46-116); ANION GAP 7 mmol/L (5-15); ASPARTATE AMINO TRANSFERASE 40 U/L (15-37); BILIRUBIN,TOTAL 2.4 MG/DL (0.2-1.0); BLOOD UREA NITROGEN 25 mg/dL (7-18); CARBON DIOXIDE 32 MMOL/L (21-32); CHLORIDE 111 MMOL/L (98-107); CREATININE 3.6 MG/DL (0.55-1.30); POTASSIUM 3.1 MMOL/L (3.5-5.1); SODIUM 150 MMOL/L (136-145)
[2017-02-12 06:17] LABS: BILIRUBIN,DIRECT 1.4 MG/DL (0.0-0.3)
[2017-02-12] MEDS: Nystatin Powder 100,000 units/gm 15gm TOPIC SCH ×3 (08:57→18:29)
--- NOTE | 2017-02-12 09:45 | Diagnostic Imaging Report ---
Indication: Status post intubation Technique: One view of the chest Comparison: 12 hours earlier Findings: Apparent interim redictation, endotracheal tube tip in good position approximately 4 cm above the tristan. Right jugular temporary dialysis catheter remains. Bilateral interstitial and alveolar edema persists. The heart remains enlarged. Impression: Satisfactory reintubation Otherwise unchanged over 12 hours
[2017-02-12] MEDS ORDERED: LR 1000ml 1,000 ML IVLG SCH (10:49)
--- NOTE | 2017-02-12 10:49 | Infectious Diseases Prog Note ---
Assessment/Plan Assessment/Plan Assesment: Encephalopathy- possibly multifactorial- hepatic encephalopathy, infection- worsening now due to hypercapnea (transferred to ICU 01/21), on bipap> intubated Acute respiratory failure 2ry to hypercapnea, PNA; now ARDS - self-extubated, re -intubated 02/04] -CXR 02/09: diffuse bilateral interstitial and airspace disease -CXR 02/04: Pulmonary parenchymal disease, likely ARDS, overall stable Sepsis 2ry to PNA and Bacteremia, SP HCAP 2ry to ESBL. E.coli, s/p Rx -CXR 02/08: . Extensive bilateral mixed interstitial alveolar lung opacities again noted. -CXR 02/02: Diffuse extensive interstitial and alveolar pulmonary parenchymal disease is unchanged. -repeat sp cx 01/26: +4 MDR A.baumani (I Ceftazidime, R to carbapenem and aminoglycosides, Minocycline; S to Colistin, Polymyxin B) suspect Colonizer ( improving not on tx)-s/p INH Colistin Tx -Sp cx 01/22: +2 ESBK E.coli, +2 C. albicans (colonizer) -CrAg neg, cocci ab pending MRSA bacteremia- with repeat Bcx growing CoNS (?contaminant vs real). BCx cleared 01/26 SP Rx -01/16 04/23 BCx MRSA (S. Vanco JOSE A 1), repeat Bcx 01/19 Neg, 01/21 04/23 CoNS ( contaminant), 01/24 Bcx 04/23 CoNs, Bcx 01/26 Neg x4, 01/28 BCx neg -TTE 01/19(limited study): No aortic regurgitation.Trace mitral regurgitation.Mitral diastolic velocities suggest reduced left ventricular relaxation c/w diastolic dysfunction grade. Moderate tricuspid regurgitation. Leukocytosis, previously worsened up to 24, now recurrent, mild, worsening, new fever r/o new KRISHAN ?aspiration event 02/04- now resolved -Bcx 02/05, Neg; Sp cx 02/06 C. albicans (colonizer) -01/26. pyuria improving (WBC 10-15); ucx C. albicans (colonizer) -10/5 u/a WBC 30-40, ucx yeast (colonizer) -Sp cx ESBL E.coli, diaz (colonizer) Elevated LFTs, improving -[facility] hep panel neg Probable MDR UTI, pyuria, s/p Rx -u/a 01/16 WBC too many to count,nit neg ,leuk est +3; UCx x3 grew >100K MDR A.baumani complex (S. tigecycline/Minocycline, Polymixin B/Colistin), >100K PsA (S. Cefepime, Zosyn; R Cipro/Levo); a prior isolated on a ucx from the same day isolated MDR PsA (I. Cefepime, R ceftzadime, Meropenem; S. Tygecicine, amikacin) -renal u/s: Nondiagnostic exam Metabolic acidosis, 2ry to renal failure- now improved after initiation of HD 01/28 RAMYA on CKD, started on HD 01/28 Cirrhosis Anemia & thrombocytopenia DM type 2 Morbid obesity DNR PLAN: -Continue to monitor off abx -s/p 7d IV Vancomcyin 02/11 -s/p 18d prophylatic PO Vanco 02/09 -s/p 19d Ertapenem 02/09 -s/p 10d INH Colistin 02/07 for MDR ABC in sputum -02/03 s/p IV Vancomycin #15/14 -s/p 1 dose Amikacin 01/28 -s/p 7d Cefepime 10/7 -s/p 3d Amikacin 10/7 -s/p 7d Minocycline 10/7 -s/p 3d IV vanco 10/ -f/u cocci ab monitor CBC, temperatures monitor BMP monitor CXR vent support, trach eventually Discussed with RN. Poor px; critically ill Subjective Allergies: Coded Allergies: PENICILLINS (Unverified Allergy, Unknown, 03/22/15) Subjective afebrile now off abx bcx neg no leukocytosis . Objective Vital Signs Last 24 Hour Vital Signs Date Time Temp Pulse Resp B/P (MAP) Pulse Ox O2 Delivery O2 Flow Rate FiO2 02/12/17 10:00 92 18 100/42 98 Mechanical Ventilator 40 02/12/17 09:00 101 19 126/94 97 Mechanical Ventilator 40 02/12/17 08:00 92 02/12/17 08:00 40 02/12/17 08:00 99.1 95 18 110/55 99 Mechanical Ventilator 40 02/12/17 07:18 98 20 40 02/12/17 07:00 100 20 107/45 98 Mechanical Ventilator 40 02/12/17 06:00 102 20 112/50 97 Mechanical Ventilator 40 02/12/17 05:27 107 24 40 02/12/17 05:00 112 20 134/60 96 Mechanical Ventilator 40 02/12/17 04:00 99 02/12/17 04:00 40 02/12/17 04:00 99.6 102 20 93/34 97 Mechanical Ventilator 40 02/12/17 03:10 98 20 40 02/12/17 03:00 97 20 100/50 96 Mechanical Ventilator 40 02/12/17 02:00 84 20 115/43 100 Mechanical Ventilator 40 02/12/17 01:05 81 20 40 02/12/17 01:00 84 20 104/50 100 Mechanical Ventilator 40 02/12/17 00:00 40 02/12/17 00:00 98.1 105 20 93/34 97 Mechanical Ventilator 40 02/12/17 00:00 92 02/11/17 23:00 119 20 114/46 97 Mechanical Ventilator 40 02/11/17 22:30 128 20 40 02/11/17 22:12 Non-Rebreather 15.0 100 02/11/17 22:10 81 20 Mechanical Ventilator 40 02/11/17 22:00 96 21 120/61 98 Mechanical Ventilator 40 02/11/17 21:00 78 21 106/51 98 Mechanical Ventilator 40 02/11/17 20:52 81 20 40 02/11/17 20:00 98.3 80 19 98/46 97 Mechanical Ventilator 40 02/11/17 20:00 71 02/11/17 20:00 40 02/11/17 19:10 75 20 40 02/11/17 19:00 71 20 93/42 99 Mechanical Ventilator 40 02/11/17 18:00 75 20 95/45 98 Mechanical Ventilator 40 02/11/17 17:09 80 20 40 02/11/17 17:00 98.2 78 19 74/41 98 Mechanical Ventilator 40 02/11/17 16:00 74 19 95/47 98 Mechanical Ventilator 40 02/11/17 16:00 40 02/11/17 15:40 135 02/11/17 15:00 79 19 100/41 98 Mechanical Ventilator 40 02/11/17 14:54 80 20 40 02/11/17 14:00 78 20 103/46 98 Mechanical Ventilator 40 02/11/17 13:00 80 17 98/45 98 Mechanical Ventilator 40 02/11/17 12:46 90 20 40 02/11/17 12:04 81 02/11/17 12:00 81 20 93/42 98 Mechanical Ventilator 40 02/11/17 12:00 40 02/11/17 11:15 98/45 02/11/17 11:00 84 20 113/51 99 Mechanical Ventilator 40 02/11/17 10:59 90 20 40 Height (Feet): 5 Height (Inches): 5.00 Weight (Pounds): 257 Objective HEENT: No pale conjunctivae. No icterus.ETT in place NECK: No lymphadenopathy. CHEST: coarse breath sounds HEART: S1 and S2. ABDOMEN: Soft and obese. EXTREMITIES: No cyanosis. NEUROLOGIC: lethargic. Skin: no rashes reviewed Laboratory Tests Test 02/11/17 23:00 02/12/17 04:30 Arterial Blood pH 7.492 (7.350-7.450) Arterial Blood Partial Pressure CO2 44.5 mmHg (35.0-45.0) Arterial Blood Partial Pressure O2 71.0 mmHg (75.0-100.0) L Arterial Blood HCO3 33.3 mmol/L (22.0-26.0) H Arterial Blood Oxygen Saturation 93.9 % (92.0-98.0) Arterial Blood Base Excess 9.1 Bon Test Positive White Blood Count 6.7 K/UL (4.8-10.8) Red Blood Count 2.87 M/UL (4.20-5.40) L Hemoglobin 8.8 G/DL (12.0-16.0) L Hematocrit 28.2 % (37.0-47.0) L Mean Corpuscular Volume 98 FL (80-99) Mean Corpuscular Hemoglobin 30.7 PG (27.0-31.0) Mean Corpuscular Hemoglobin Concent 31.2 G/DL (32.0-36.0) L Red Cell Distribution Width 18.1 % (11.6-14.8) H Platelet Count 62 K/UL (150-450) L Mean Platelet Volume 10.1 FL (6.5-10.1) Neutrophils (%) (Auto) % (45.0-75.0) Lymphocytes (%) (Auto) % (20.0-45.0) Monocytes (%) (Auto) % (1.0-10.0) Eosinophils (%) (Auto) % (0.0-3.0) Basophils (%) (Auto) % (0.0-2.0) Differential Total Cells Counted 100 Neutrophils % (Manual) 76 % (45-75) H Lymphocytes % (Manual) 11 % (20-45) L Monocytes % (Manual) 10 % (1-10) Eosinophils % (Manual) 3 % (0-3) Basophils % (Manual) 0 % (0-2) Band Neutrophils 0 % (0-8) Platelet Estimate Decreased L Platelet Morphology Normal Sodium Level 150 MMOL/L (136-145) H Potassium Level 3.1 MMOL/L (3.5-5.1) L Chloride Level 111 MMOL/L (98-107) H Carbon Dioxide Level 32 MMOL/L (21-32) Anion Gap 7 mmol/L (5-15) Blood Urea Nitrogen 25 mg/dL (7-18) H Creatinine 3.6 MG/DL (0.55-1.30) H Estimat Glomerular Filtration Rate mL/min (>60) Glucose Level 135 MG/DL (74-106) H Calcium Level 9.0 MG/DL (8.5-10.1) Total Bilirubin 2.4 MG/DL (0.2-1.0) H Direct Bilirubin 1.4 MG/DL (0.0-0.3) H Aspartate Amino Transf (AST/SGOT) 40 U/L (15-37) H Alanine Aminotransferase (ALT/SGPT) < 6 U/L (12-78) L Alkaline Phosphatase 214 U/L (46-116) H Pro-B-Type Natriuretic Peptide 92727 pg/mL (0-125) H Total Protein 6.0 G/DL (6.4-8.2) L Albumin 1.6 G/DL (3.4-5.0) L Globulin 4.4 g/dL Albumin/Globulin Ratio 0.4 (1.0-2.7) L Random Vancomycin Level 25.0 ug/mL Current Medications Medications (Trade) Dose Ordered Sig/Pavel Route PRN Reason Start Time Stop Time Status Last Admin Dose Admin Acetaminophen (Tylenol) 650 mg Q4H PRN ORAL T>100.5 01/21/17 14:30 02/15/17 14:29 02/05/17 07:41 Chlorhexidine Gluconate (Dianne-Hex 2%) 1 applic DAILY@2000 TOPIC 01/25/17 20:00 02/24/17 19:59 02/11/17 19:50 Clotrimazole (Lotrimin) 1 applic EVERY 12 HOURS TOPIC 01/21/17 21:00 02/18/17 13:59 02/12/17 08:58 Dextrose (Dextrose 50%) STAT PRN IV Hypoglycemia 02/06/17 10:45 03/08/17 10:44 Dextrose/Sodium Chloride 1,000 ml @ 30 mls/hr Q24H IV 02/11/17 18:00 03/13/17 17:59 02/11/17 17:55 Dopamine HCl/ Dextrose 250 ml @ 0 mls/hr Q24H IV 01/25/17 11:15 02/24/17 11:14 01/30/17 10:30 Hydromorphone HCl (Dilaudid) 0.5 mg Q4H PRN IVP Pain (5-10) 02/09/17 18:00 02/15/17 10:44 02/12/17 09:23 Insulin Aspart (NovoLOG) EVERY 4 HOURS SUBQ 02/06/17 12:00 03/08/17 11:59 02/12/17 08:57 Metoclopramide HCl (Reglan) 5 mg Q8H PRN IVP Nausea & Vomiting 01/29/17 11:30 02/28/17 11:29 01/31/17 11:46 Midodrine (Pro-Amatine) 10 mg Q8HR NG 02/03/17 14:00 03/05/17 13:59 02/10/17 06:23 Nitroglycerin (Ntg) 0.4 mg Q5MIN X 3 DOSES PRN SL Prn Chest Pain 01/21/17 14:30 02/15/17 14:29 Nystatin (Nystop Powder) 1 applic THREE TIMES A DAY TOPIC 01/22/17 13:00 02/21/17 12:59 02/12/17 08:57 Ranitidine HCl (Zantac) 150 mg DAILY NG 02/03/17 18:00 03/05/17 17:59 02/11/17 15:11 Rifaximin (Xifaxan) 550 mg EVERY 12 HOURS ORAL 01/29/17 12:00 03/07/17 11:59 02/11/17 20:41 Nereyda Monroe M.D. Feb 12, 2017 10:49
--- NOTE | 2017-02-12 10:54 | Anethesia Preoperative Eval ---
Anesthesia Pre-op PMH/ROS General Date of Evaluation: Feb 12, 2017 Time of Evaluation: 11:13 Anesthesiologist: Arsalan ASA Score: ASA 4 Mallampati Score Class I : Soft palate, uvula, fauces, pillars visible Class II: Soft palate, uvula, fauces visible Class III: Soft palate, base of uvula visible Class IV: Only hard plate visible Mallampati Classification: Class III Surgeon: Brian Diagnosis: Abd Pain Surgical Procedure: EGD, PEG Anesthesia History: none Family History: no anesthesia problems Allergies: Coded Allergies: PENICILLINS (Unverified Allergy, Unknown, 03/22/15) Medications: see eMAR Past Medical History Cardiovascular: Reports: HTN, CAD - CHF, Cardiomyopathy, other - HL Pulmonary: Reports: asthma, COPD, other - Aspiration neumonia Gastrointestinal/Genitourinary: Reports: GERD, other - Ulcerative Colitis, Cirrhosis Neurologic/Psychiatric: Reports: CVA Endocrine: Reports: DM Hematology/Immune: Reports: anemia, bleeding disorder - Thrombocytopenia Musculoskeletal/Integumentary: Reports: other - Gout Other: obesity - Morbid, BMI 44 Anesthesia Pre-op Phys. Exam Physician Exam Last Vital Signs Date Time Temp Pulse Resp B/P (MAP) Pulse Ox O2 Delivery O2 Flow Rate FiO2 02/12/17 10:00 92 18 100/42 98 Mechanical Ventilator 40 02/12/17 08:00 99.1 02/11/17 22:12 15.0 Constitutional: NAD Neurologic: other - CVA Cardiovascular: other - Ventilated Respiratory: other - Wheezing Gastrointestinal: other - Morbid Obesity Airway Exam Mallampati Score: Class III MO: limited ROM: limited Teeth: missing, intact Anesthesia Pre-op A/P Labs Hematology Test 02/12/17 04:30 White Blood Count 6.7 K/UL (4.8-10.8) Red Blood Count 2.87 M/UL (4.20-5.40) L Hemoglobin 8.8 G/DL (12.0-16.0) L Hematocrit 28.2 % (37.0-47.0) L Mean Corpuscular Volume 98 FL (80-99) Mean Corpuscular Hemoglobin 30.7 PG (27.0-31.0) Mean Corpuscular Hemoglobin Concent 31.2 G/DL (32.0-36.0) L Red Cell Distribution Width 18.1 % (11.6-14.8) H Platelet Count 62 K/UL (150-450) L Mean Platelet Volume 10.1 FL (6.5-10.1) Neutrophils (%) (Auto) % (45.0-75.0) Lymphocytes (%) (Auto) % (20.0-45.0) Monocytes (%) (Auto) % (1.0-10.0) Eosinophils (%) (Auto) % (0.0-3.0) Basophils (%) (Auto) % (0.0-2.0) Differential Total Cells Counted 100 Neutrophils % (Manual) 76 % (45-75) H Lymphocytes % (Manual) 11 % (20-45) L Monocytes % (Manual) 10 % (1-10) Eosinophils % (Manual) 3 % (0-3) Basophils % (Manual) 0 % (0-2) Band Neutrophils 0 % (0-8) Platelet Estimate Decreased L Platelet Morphology Normal Chemistry Test 02/12/17 04:30 Sodium Level 150 MMOL/L (136-145) H Potassium Level 3.1 MMOL/L (3.5-5.1) L Chloride Level 111 MMOL/L (98-107) H Carbon Dioxide Level 32 MMOL/L (21-32) Anion Gap 7 mmol/L (5-15) Blood Urea Nitrogen 25 mg/dL (7-18) H Creatinine 3.6 MG/DL (0.55-1.30) H Estimat Glomerular Filtration Rate mL/min (>60) Glucose Level 135 MG/DL (74-106) H Calcium Level 9.0 MG/DL (8.5-10.1) Total Bilirubin 2.4 MG/DL (0.2-1.0) H Direct Bilirubin 1.4 MG/DL (0.0-0.3) H Aspartate Amino Transf (AST/SGOT) 40 U/L (15-37) H Alanine Aminotransferase (ALT/SGPT) < 6 U/L (12-78) L Alkaline Phosphatase 214 U/L (46-116) H Pro-B-Type Natriuretic Peptide 02305 pg/mL (0-125) H Total Protein 6.0 G/DL (6.4-8.2) L Albumin 1.6 G/DL (3.4-5.0) L Globulin 4.4 g/dL Albumin/Globulin Ratio 0.4 (1.0-2.7) L Risk Assessment & Plan Assessment: ASA 4 Plan: GA Status Change Before Surgery: Luis Alberto Powell MD Feb 12, 2017 10:54
[2017-02-12] MEDS ORDERED: Ketorolac 60mg Inj IV PRN (11:00)
[2017-02-12] MEDS ORDERED: Norco 5mg/325mg tab ORAL PRN (11:00)
[2017-02-12] MEDS ORDERED: Alfentanil 2ml Inj ONE (11:00)
[2017-02-12] MEDS ORDERED: DiphenhydrAMINE 50mg/ml Inj IVP PRN (11:00)
[2017-02-12] MEDS ORDERED: Hydromorphone 0.5mg/0.5ml inj IVP PRN (11:00)
[2017-02-12] MEDS ORDERED: Metoclopramide 10mg/2ml Inj IVP PRN (11:00)
[2017-02-12] MEDS ORDERED: Midazolam 2mg/2ml Inj IVP PRN (11:00)
[2017-02-12] MEDS ORDERED: Propofol 200mg/20ml IV ONE (11:00)
[2017-02-12] MEDS ORDERED: Ketorolac 30mg Inj IV PRN (11:00)
[2017-02-12] MEDS ORDERED: Atropine Inj 1mg/10ml Syr IV PRN (11:00)
[2017-02-12] MEDS ORDERED: Norco 7.5mg/325mg tab ORAL PRN (11:00)
[2017-02-12] MEDS ORDERED: LORazepam Inj 2mg/ml 1ml IV PRN (11:00)
[2017-02-12] MEDS ORDERED: oxyCODONE HCL/Acetaminophen 5/325mg ORAL PRN (11:00)
[2017-02-12] MEDS ORDERED: fentaNYL 100 mcg/2 mL IV PRN (11:00)
[2017-02-12] MEDS ORDERED: Lidocaine 1% MPF 10mg/ml 5ml ONE (11:00)
[2017-02-12] MEDS: DOPamine 400mg/250ml 250 ML IV SCH (11:15)
[2017-02-12] MEDS ORDERED: NS 500ML IV ONE (11:30)
--- NOTE | 2017-02-12 11:37 | Pulmonolgy Critical Care Note ---
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 Respiratory: monitor respiratory rate, adjust FIO2, CXR Cardiac: stop pressors, continue to monitor HR/BP Renal: F/U I&O, keep IV fluid Infectious Disease: check cultures, continue antibiotics Gastrointestinal: continue feedings/current rate, hold feedings Endocrine: monitor blood sugar, check TSH, continue sliding scale insulin Hematologic: monitor H/H, transfuse if hgb<8.5 Neurologic: PRN Ativan, PRN Morphine, keep patient comfortable Affect: PRN ativan Notes Reviewed: serologist, renal Discussed with: nurses, case resource managermaterial requirements planning manager - Objective Last 24 Hour Vital Signs Date Time Temp Pulse Resp B/P (MAP) Pulse Ox O2 Delivery O2 Flow Rate FiO2 02/12/17 10:57 89 20 40 02/12/17 10:00 92 18 100/42 98 Mechanical Ventilator 40 02/12/17 09:18 94 20 40 02/12/17 09:00 101 19 126/94 97 Mechanical Ventilator 40 02/12/17 08:00 92 02/12/17 08:00 40 02/12/17 08:00 99.1 95 18 110/55 99 Mechanical Ventilator 40 02/12/17 07:18 98 20 40 02/12/17 07:00 100 20 107/45 98 Mechanical Ventilator 40 02/12/17 06:00 102 20 112/50 97 Mechanical Ventilator 40 02/12/17 05:27 107 24 40 02/12/17 05:00 112 20 134/60 96 Mechanical Ventilator 40 02/12/17 04:00 99 02/12/17 04:00 40 02/12/17 04:00 99.6 102 20 93/34 97 Mechanical Ventilator 40 02/12/17 03:10 98 20 40 02/12/17 03:00 97 20 100/50 96 Mechanical Ventilator 40 02/12/17 02:00 84 20 115/43 100 Mechanical Ventilator 40 02/12/17 01:05 81 20 40 02/12/17 01:00 84 20 104/50 100 Mechanical Ventilator 40 02/12/17 00:00 40 02/12/17 00:00 98.1 105 20 93/34 97 Mechanical Ventilator 40 02/12/17 00:00 92 02/11/17 23:00 119 20 114/46 97 Mechanical Ventilator 40 02/11/17 22:30 128 20 40 02/11/17 22:12 Non-Rebreather 15.0 100 02/11/17 22:10 81 20 Mechanical Ventilator 40 02/11/17 22:00 96 21 120/61 98 Mechanical Ventilator 40 02/11/17 21:00 78 21 106/51 98 Mechanical Ventilator 40 02/11/17 20:52 81 20 40 02/11/17 20:00 98.3 80 19 98/46 97 Mechanical Ventilator 40 02/11/17 20:00 71 02/11/17 20:00 40 02/11/17 19:10 75 20 40 02/11/17 19:00 71 20 93/42 99 Mechanical Ventilator 40 02/11/17 18:00 75 20 95/45 98 Mechanical Ventilator 40 02/11/17 17:09 80 20 40 02/11/17 17:00 98.2 78 19 74/41 98 Mechanical Ventilator 40 02/11/17 16:00 74 19 95/47 98 Mechanical Ventilator 40 02/11/17 16:00 40 02/11/17 15:40 135 02/11/17 15:00 79 19 100/41 98 Mechanical Ventilator 40 02/11/17 14:54 80 20 40 02/11/17 14:00 78 20 103/46 98 Mechanical Ventilator 40 02/11/17 13:00 80 17 98/45 98 Mechanical Ventilator 40 02/11/17 12:46 90 20 40 02/11/17 12:04 81 02/11/17 12:00 81 20 93/42 98 Mechanical Ventilator 40 02/11/17 12:00 40 Status: awake Condition: critical HEENT: atraumatic, normocephalic Neck: full ROM Lungs: chest wall tender Heart: HR/BP unstable, regular Abdomen: non-tender, active bowel sounds Extremities: no C/C/E, edema Decubiti: location, stage Accucheck: 142 Critical Care - Subjective ROS Limited/Unobtainable: No IV Access: PICC EKG Rhythm: Sinus Rhythm FI02: 40 Vent Support Breath Rate: 20 Vent Support Mode: AC Vent Tidal Volume: 650 Sputum Amount: Moderate PEEP: 0.0 PIP: 41 I&O: Intake and Output 02/12/17 02/13/17 19:00 07:00 Intake Total 30 ml Output Total 0 ml Balance 30 ml IV Total 30 ml Output Urine Total 0 ml CXR: no change ET-Tube: 7.0 ET Position: 20 Labs: Laboratory Tests Test 02/11/17 23:00 02/12/17 04:30 Arterial Blood pH 7.492 (7.350-7.450) Arterial Blood Partial Pressure CO2 44.5 mmHg (35.0-45.0) Arterial Blood Partial Pressure O2 71.0 mmHg (75.0-100.0) L Arterial Blood HCO3 33.3 mmol/L (22.0-26.0) H Arterial Blood Oxygen Saturation 93.9 % (92.0-98.0) Arterial Blood Base Excess 9.1 Bon Test Positive White Blood Count 6.7 K/UL (4.8-10.8) Red Blood Count 2.87 M/UL (4.20-5.40) L Hemoglobin 8.8 G/DL (12.0-16.0) L Hematocrit 28.2 % (37.0-47.0) L Mean Corpuscular Volume 98 FL (80-99) Mean Corpuscular Hemoglobin 30.7 PG (27.0-31.0) Mean Corpuscular Hemoglobin Concent 31.2 G/DL (32.0-36.0) L Red Cell Distribution Width 18.1 % (11.6-14.8) H Platelet Count 62 K/UL (150-450) L Mean Platelet Volume 10.1 FL (6.5-10.1) Neutrophils (%) (Auto) % (45.0-75.0) Lymphocytes (%) (Auto) % (20.0-45.0) Monocytes (%) (Auto) % (1.0-10.0) Eosinophils (%) (Auto) % (0.0-3.0) Basophils (%) (Auto) % (0.0-2.0) Differential Total Cells Counted 100 Neutrophils % (Manual) 76 % (45-75) H Lymphocytes % (Manual) 11 % (20-45) L Monocytes % (Manual) 10 % (1-10) Eosinophils % (Manual) 3 % (0-3) Basophils % (Manual) 0 % (0-2) Band Neutrophils 0 % (0-8) Platelet Estimate Decreased L Platelet Morphology Normal Sodium Level 150 MMOL/L (136-145) H Potassium Level 3.1 MMOL/L (3.5-5.1) L Chloride Level 111 MMOL/L (98-107) H Carbon Dioxide Level 32 MMOL/L (21-32) Anion Gap 7 mmol/L (5-15) Blood Urea Nitrogen 25 mg/dL (7-18) H Creatinine 3.6 MG/DL (0.55-1.30) H Estimat Glomerular Filtration Rate mL/min (>60) Glucose Level 135 MG/DL (74-106) H Calcium Level 9.0 MG/DL (8.5-10.1) Total Bilirubin 2.4 MG/DL (0.2-1.0) H Direct Bilirubin 1.4 MG/DL (0.0-0.3) H Aspartate Amino Transf (AST/SGOT) 40 U/L (15-37) H Alanine Aminotransferase (ALT/SGPT) < 6 U/L (12-78) L Alkaline Phosphatase 214 U/L (46-116) H Pro-B-Type Natriuretic Peptide 87852 pg/mL (0-125) H Total Protein 6.0 G/DL (6.4-8.2) L Albumin 1.6 G/DL (3.4-5.0) L Globulin 4.4 g/dL Albumin/Globulin Ratio 0.4 (1.0-2.7) L Random Vancomycin Level 25.0 ug/mL DIONI TRIANA Feb 12, 2017 11:37
--- NOTE | 2017-02-12 11:46 | General Progress Note ---
Assessment/Plan Status: unchanged Assessment/Plan Acute on chronic renal failure- multifactorial CHF DM HTN Sepsis Now: Acute respiratory failure- Intubated - Altered level of consciousness - ESBL (extended spectrum beta-lactamase) producing bacteria infection - Cardiomegaly - DM (diabetes mellitus) - HTN (hypertension) - UTI (urinary tract infection) - Anemia - High Cholestrol - COPD - YELENA - Fatty liver Plan: trach not done due to consent issues K & Phos supplement as needed On midodrine dialysis next 02/13 Transfuse as needed, one unit 02/04 Optimize cardiac and pulmonary status 2D echo results noted avoid nephrotoxics monitor renal parameters Urine studies per orders poor prognosis Subjective ROS Limited/Unobtainable: Yes Allergies: Coded Allergies: PENICILLINS (Unverified Allergy, Unknown, 03/22/15) Objective Last 24 Hour Vital Signs Date Time Temp Pulse Resp B/P (MAP) Pulse Ox O2 Delivery O2 Flow Rate FiO2 02/12/17 10:57 89 20 40 02/12/17 10:00 92 18 100/42 98 Mechanical Ventilator 40 02/12/17 09:18 94 20 40 02/12/17 09:00 101 19 126/94 97 Mechanical Ventilator 40 02/12/17 08:00 92 02/12/17 08:00 40 02/12/17 08:00 99.1 95 18 110/55 99 Mechanical Ventilator 40 02/12/17 07:18 98 20 40 02/12/17 07:00 100 20 107/45 98 Mechanical Ventilator 40 02/12/17 06:00 102 20 112/50 97 Mechanical Ventilator 40 02/12/17 05:27 107 24 40 02/12/17 05:00 112 20 134/60 96 Mechanical Ventilator 40 02/12/17 04:00 99 02/12/17 04:00 40 02/12/17 04:00 99.6 102 20 93/34 97 Mechanical Ventilator 40 02/12/17 03:10 98 20 40 02/12/17 03:00 97 20 100/50 96 Mechanical Ventilator 40 02/12/17 02:00 84 20 115/43 100 Mechanical Ventilator 40 02/12/17 01:05 81 20 40 02/12/17 01:00 84 20 104/50 100 Mechanical Ventilator 40 02/12/17 00:00 40 02/12/17 00:00 98.1 105 20 93/34 97 Mechanical Ventilator 40 02/12/17 00:00 92 02/11/17 23:00 119 20 114/46 97 Mechanical Ventilator 40 02/11/17 22:30 128 20 40 02/11/17 22:12 Non-Rebreather 15.0 100 02/11/17 22:10 81 20 Mechanical Ventilator 40 02/11/17 22:00 96 21 120/61 98 Mechanical Ventilator 40 02/11/17 21:00 78 21 106/51 98 Mechanical Ventilator 40 02/11/17 20:52 81 20 40 02/11/17 20:00 98.3 80 19 98/46 97 Mechanical Ventilator 40 02/11/17 20:00 71 02/11/17 20:00 40 02/11/17 19:10 75 20 40 02/11/17 19:00 71 20 93/42 99 Mechanical Ventilator 40 02/11/17 18:00 75 20 95/45 98 Mechanical Ventilator 40 02/11/17 17:09 80 20 40 02/11/17 17:00 98.2 78 19 74/41 98 Mechanical Ventilator 40 02/11/17 16:00 74 19 95/47 98 Mechanical Ventilator 40 02/11/17 16:00 40 02/11/17 15:40 135 02/11/17 15:00 79 19 100/41 98 Mechanical Ventilator 40 02/11/17 14:54 80 20 40 02/11/17 14:00 78 20 103/46 98 Mechanical Ventilator 40 02/11/17 13:00 80 17 98/45 98 Mechanical Ventilator 40 02/11/17 12:46 90 20 40 02/11/17 12:04 81 02/11/17 12:00 81 20 93/42 98 Mechanical Ventilator 40 02/11/17 12:00 40 Intake and Output 02/12/17 02/13/17 19:00 07:00 Intake Total 30 ml Output Total 0 ml Balance 30 ml IV Total 30 ml Output Urine Total 0 ml Laboratory Tests 02/11/17 23:00: Arterial Blood pH 7.492H, Arterial Blood Partial Pressure CO2 44.5, Arterial Blood Partial Pressure O2 71.0L, Arterial Blood HCO3 33.3H, Arterial Blood Oxygen Saturation 93.9, Arterial Blood Base Excess 9.1, Bon Test Positive 02/12/17 04:30: White Blood Count 6.7, Red Blood Count 2.87L, Hemoglobin 8.8L, Hematocrit 28.2L , Mean Corpuscular Volume 98, Mean Corpuscular Hemoglobin 30.7, Mean Corpuscular Hemoglobin Concent 31.2L, Red Cell Distribution Width 18.1H, Platelet Count 62L, Mean Platelet Volume 10.1, Neutrophils (%) (Auto) , Lymphocytes (%) (Auto) , Monocytes (%) (Auto) , Eosinophils (%) (Auto) , Basophils (%) (Auto) , Differential Total Cells Counted 100, Neutrophils % ( Manual) 76H, Lymphocytes % (Manual) 11L, Monocytes % (Manual) 10, Eosinophils % (Manual) 3, Basophils % (Manual) 0, Band Neutrophils 0, Platelet Estimate DecreasedL, Platelet Morphology Normal, Sodium Level 150H, Potassium Level 3.1L , Chloride Level 111H, Carbon Dioxide Level 32, Anion Gap 7, Blood Urea Nitrogen 25H, Creatinine 3.6H, Estimat Glomerular Filtration Rate , Glucose Level 135H, Calcium Level 9.0, Total Bilirubin 2.4H, Direct Bilirubin 1.4H, Aspartate Amino Transf (AST/SGOT) 40H, Alanine Aminotransferase (ALT/SGPT) < 6L , Alkaline Phosphatase 214H, Pro-B-Type Natriuretic Peptide 71935H, Total Protein 6.0L, Albumin 1.6L, Globulin 4.4, Albumin/Globulin Ratio 0.4L, Random Vancomycin Level 25.0 Height (Feet): 5 Height (Inches): 5.00 Weight (Pounds): 257 General Appearance: no apparent distress Cardiovascular: tachycardia Respiratory/Chest: decreased breath sounds Abdomen: distended Objective no other change ANDERS MOLINA Feb 12, 2017 11:46
--- NOTE | 2017-02-12 11:55 | Immediate Post-Op Evaluation ---
Immediate Post-Op Evalulation Immediate Post-Op Evalulation Procedure: EGD, PEG Date of Evaluation: Feb 12, 2017 Time of Evaluation: 12:08 IV Fluids: 200 NS Blood Products: 0 Estimated Blood Loss: 5 Urinary Output: 0 Blood Pressure Systolic: 92 Blood Pressure Diastolic: 47 Pulse Rate: 89 Respiratory Rate: 20 - Mech Vent O2 Sat by Pulse Oximetry: 99 Temperature (Fahrenheit): 98.6 Pain Score (1-10): 1 Nausea: No Vomiting: No Complications 0 Patient Status: awake, reacts, patent, ventilated, none Hydration Status: adequate Luis Alberto Arriaza MD Feb 12, 2017 11:55
--- NOTE | 2017-02-12 11:57 | 48 Hour Post Anesthesia Eval ---
Post Anesthesia Evaluation Procedure: EGD, PEG Date of Evaluation: Feb 12, 2017 Time of Evaluation: 14:13 Blood Pressure Systolic: 89 0: 47 Pulse Rate: 81 Respiratory Rate: 18 - Mech Vent Temperature (Fahrenheit): 98.6 O2 Sat by Pulse Oximetry: 99 Airway: patent Nausea: No Vomiting: No Pain Intensity: 1 Hydration Status: adequate Cardiopulmonary Status: Stable Mental Status/LOC: other - ICU Follow-up Care/Observations: 0 Post-Anesthesia Complications: 0 Follow-up care needed: N/A Luis Alberto Arriaza MD Feb 12, 2017 11:57
--- NOTE | 2017-02-12 12:08 | General Progress Note ---
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 - dysphagia Recommendations - continue off of lactulose - continue Xifaxan - Hold TF - follow labs - HD/lytes per Renal - free water - PEG today Subjective Allergies: Coded Allergies: PENICILLINS (Unverified Allergy, Unknown, 03/22/15) Subjective above noted seen in ICU platelets lower NPO for PEG d/w DTR at length re temp full code Objective Last 24 Hour Vital Signs Date Time Temp Pulse Resp B/P (MAP) Pulse Ox O2 Delivery O2 Flow Rate FiO2 02/12/17 11:57 81 18 99 02/12/17 11:55 89 20 99 02/12/17 10:57 89 20 40 02/12/17 10:00 92 18 100/42 98 Mechanical Ventilator 40 02/12/17 09:18 94 20 40 02/12/17 09:00 101 19 126/94 97 Mechanical Ventilator 40 02/12/17 08:00 92 02/12/17 08:00 40 02/12/17 08:00 99.1 95 18 110/55 99 Mechanical Ventilator 40 02/12/17 07:18 98 20 40 02/12/17 07:00 100 20 107/45 98 Mechanical Ventilator 40 02/12/17 06:00 102 20 112/50 97 Mechanical Ventilator 40 02/12/17 05:27 107 24 40 02/12/17 05:00 112 20 134/60 96 Mechanical Ventilator 40 02/12/17 04:00 99 02/12/17 04:00 40 02/12/17 04:00 99.6 102 20 93/34 97 Mechanical Ventilator 40 02/12/17 03:10 98 20 40 02/12/17 03:00 97 20 100/50 96 Mechanical Ventilator 40 02/12/17 02:00 84 20 115/43 100 Mechanical Ventilator 40 02/12/17 01:05 81 20 40 02/12/17 01:00 84 20 104/50 100 Mechanical Ventilator 40 02/12/17 00:00 40 02/12/17 00:00 98.1 105 20 93/34 97 Mechanical Ventilator 40 02/12/17 00:00 92 02/11/17 23:00 119 20 114/46 97 Mechanical Ventilator 40 02/11/17 22:30 128 20 40 02/11/17 22:12 Non-Rebreather 15.0 100 02/11/17 22:10 81 20 Mechanical Ventilator 40 02/11/17 22:00 96 21 120/61 98 Mechanical Ventilator 40 02/11/17 21:00 78 21 106/51 98 Mechanical Ventilator 40 02/11/17 20:52 81 20 40 02/11/17 20:00 98.3 80 19 98/46 97 Mechanical Ventilator 40 02/11/17 20:00 71 02/11/17 20:00 40 02/11/17 19:10 75 20 40 02/11/17 19:00 71 20 93/42 99 Mechanical Ventilator 40 02/11/17 18:00 75 20 95/45 98 Mechanical Ventilator 40 02/11/17 17:09 80 20 40 02/11/17 17:00 98.2 78 19 74/41 98 Mechanical Ventilator 40 02/11/17 16:00 74 19 95/47 98 Mechanical Ventilator 40 02/11/17 16:00 40 02/11/17 15:40 135 02/11/17 15:00 79 19 100/41 98 Mechanical Ventilator 40 02/11/17 14:54 80 20 40 02/11/17 14:00 78 20 103/46 98 Mechanical Ventilator 40 02/11/17 13:00 80 17 98/45 98 Mechanical Ventilator 40 02/11/17 12:46 90 20 40 Intake and Output 02/12/17 02/13/17 19:00 07:00 Intake Total 30 ml Output Total 0 ml Balance 30 ml IV Total 30 ml Output Urine Total 0 ml Laboratory Tests 02/11/17 23:00: Arterial Blood pH 7.492H, Arterial Blood Partial Pressure CO2 44.5, Arterial Blood Partial Pressure O2 71.0L, Arterial Blood HCO3 33.3H, Arterial Blood Oxygen Saturation 93.9, Arterial Blood Base Excess 9.1, Bon Test Positive 02/12/17 04:30: White Blood Count 6.7, Red Blood Count 2.87L, Hemoglobin 8.8L, Hematocrit 28.2L , Mean Corpuscular Volume 98, Mean Corpuscular Hemoglobin 30.7, Mean Corpuscular Hemoglobin Concent 31.2L, Red Cell Distribution Width 18.1H, Platelet Count 62L, Mean Platelet Volume 10.1, Neutrophils (%) (Auto) , Lymphocytes (%) (Auto) , Monocytes (%) (Auto) , Eosinophils (%) (Auto) , Basophils (%) (Auto) , Differential Total Cells Counted 100, Neutrophils % ( Manual) 76H, Lymphocytes % (Manual) 11L, Monocytes % (Manual) 10, Eosinophils % (Manual) 3, Basophils % (Manual) 0, Band Neutrophils 0, Platelet Estimate DecreasedL, Platelet Morphology Normal, Sodium Level 150H, Potassium Level 3.1L , Chloride Level 111H, Carbon Dioxide Level 32, Anion Gap 7, Blood Urea Nitrogen 25H, Creatinine 3.6H, Estimat Glomerular Filtration Rate , Glucose Level 135H, Calcium Level 9.0, Total Bilirubin 2.4H, Direct Bilirubin 1.4H, Aspartate Amino Transf (AST/SGOT) 40H, Alanine Aminotransferase (ALT/SGPT) < 6L , Alkaline Phosphatase 214H, Pro-B-Type Natriuretic Peptide 40158S, Total Protein 6.0L, Albumin 1.6L, Globulin 4.4, Albumin/Globulin Ratio 0.4L, Random Vancomycin Level 25.0 Height (Feet): 5 Height (Inches): 5.00 Weight (Pounds): 257 Objective Obese WW NCAT, (+) ETT and NGT supple CTA RRR soft ND NT (+) edema KIERSTEN Ayon Feb 12, 2017 12:08
--- NOTE | 2017-02-12 12:09 | Endoscopy Procedure Note ---
Endoscopy Procedure Note Indication for Procedure: dysphagia Procedures Performed: PEG Operative Findings/Diagnosis: incidental gastric polyp Specimen: none Pt Tolerated Procedure Well: Yes Estimated Blood Loss: none Anesthesiologist: Yash Anesthesia: MAC Medication Given: see anesthesia record Implant(s) used?: No 50 yrs or older w/o bx or poly: Not Applicable 10yrs. F/U not recommended: Not Applicable If not recommended, why?: KIERSTEN DAVIES Feb 12, 2017 12:09
--- NOTE | 2017-02-12 12:11 | Brief Operative Note ---
Immediate Post Operative Note Operative Note Chief Complaint: dysphagia Pre-op Diagnosis: dysphagia Procedure: PEG Post-op Diagnosis: incidentl 4-5 mm gastric polyp - left in situ GT placed, minimal bleeding at skin site treated with gold probe cautery Surgeon: ranjana Anesthesiologist: Yash Anesthesia: moderate sedation Specimen: none Complications: none Condition: unstable Fluids: see anesthesia Estimated Blood Loss: minimal Drains: none Implant(s) used?: No KIERSTEN DAVIES Feb 12, 2017 12:11
--- NOTE | 2017-02-12 15:32 | Cardiac Electrophysiology PN ---
Assessment/Plan Assessment/Plan 1. CHF due to diastolic dysfunction with EF 60 %. On dialysis. EKG NSR with low voltage QRS. 2. S/P Shock, resolved.Off pressors 3. Bradycardia resolved, off dopamine. On midodrine 5 tid 4. Vent dependent respiratory failure. Self extubated on 02/04 and was reintubated an hour later. Tracheostomy pending. 5. Hyperlipidemia. 6. Cirrhosis 7. Anemia with hemoglobin of 8. 8. Hypernatremia Na still 149 today 02/11/17 9. DNR 10. ESRD on HD 11. DM 12. Dysphagia, S/P PEG today DW RN Subjective Subjective In ICU on Vent.Had HD 3 liters yesterday. Had bedside PEG today. Tracheostomy still pending/ Objective Last 24 Hour Vital Signs Date Time Temp Pulse Resp B/P (MAP) Pulse Ox O2 Delivery O2 Flow Rate FiO2 02/12/17 14:00 87 20 128/44 100 Mechanical Ventilator 40 02/12/17 13:06 73 20 40 02/12/17 13:00 91 18 101/47 99 Mechanical Ventilator 40 02/12/17 12:00 40 02/12/17 12:00 99.0 74 18 91/46 100 Mechanical Ventilator 40 02/12/17 12:00 78 02/12/17 11:57 81 18 99 02/12/17 11:55 89 20 99 02/12/17 11:15 95/46 02/12/17 11:00 87 18 96/45 97 Mechanical Ventilator 40 02/12/17 10:57 89 20 40 02/12/17 10:00 92 18 100/42 98 Mechanical Ventilator 40 02/12/17 09:18 94 20 40 02/12/17 09:00 101 19 126/94 97 Mechanical Ventilator 40 02/12/17 08:00 92 02/12/17 08:00 40 02/12/17 08:00 99.1 95 18 110/55 99 Mechanical Ventilator 40 02/12/17 07:18 98 20 40 02/12/17 07:00 100 20 107/45 98 Mechanical Ventilator 40 02/12/17 06:00 102 20 112/50 97 Mechanical Ventilator 40 02/12/17 05:27 107 24 40 02/12/17 05:00 112 20 134/60 96 Mechanical Ventilator 40 02/12/17 04:00 99 02/12/17 04:00 40 02/12/17 04:00 99.6 102 20 93/34 97 Mechanical Ventilator 40 02/12/17 03:10 98 20 40 02/12/17 03:00 97 20 100/50 96 Mechanical Ventilator 40 02/12/17 02:00 84 20 115/43 100 Mechanical Ventilator 40 02/12/17 01:05 81 20 40 02/12/17 01:00 84 20 104/50 100 Mechanical Ventilator 40 02/12/17 00:00 40 02/12/17 00:00 98.1 105 20 93/34 97 Mechanical Ventilator 40 02/12/17 00:00 92 02/11/17 23:00 119 20 114/46 97 Mechanical Ventilator 40 02/11/17 22:30 128 20 40 02/11/17 22:12 Non-Rebreather 15.0 100 02/11/17 22:10 81 20 Mechanical Ventilator 40 02/11/17 22:00 96 21 120/61 98 Mechanical Ventilator 40 02/11/17 21:00 78 21 106/51 98 Mechanical Ventilator 40 02/11/17 20:52 81 20 40 02/11/17 20:00 98.3 80 19 98/46 97 Mechanical Ventilator 40 02/11/17 20:00 71 02/11/17 20:00 40 02/11/17 19:10 75 20 40 02/11/17 19:00 71 20 93/42 99 Mechanical Ventilator 40 02/11/17 18:00 75 20 95/45 98 Mechanical Ventilator 40 02/11/17 17:09 80 20 40 02/11/17 17:00 98.2 78 19 74/41 98 Mechanical Ventilator 40 02/11/17 16:00 74 19 95/47 98 Mechanical Ventilator 40 02/11/17 16:00 40 02/11/17 15:40 135 Intake and Output 02/12/17 02/13/17 19:00 07:00 Intake Total 30 ml Output Total 0 ml Balance 30 ml IV Total 30 ml Output Urine Total 0 ml Laboratory Tests Test 02/11/17 23:00 02/12/17 04:30 Arterial Blood pH 7.492 (7.350-7.450) Arterial Blood Partial Pressure CO2 44.5 mmHg (35.0-45.0) Arterial Blood Partial Pressure O2 71.0 mmHg (75.0-100.0) L Arterial Blood HCO3 33.3 mmol/L (22.0-26.0) H Arterial Blood Oxygen Saturation 93.9 % (92.0-98.0) Arterial Blood Base Excess 9.1 Bon Test Positive White Blood Count 6.7 K/UL (4.8-10.8) Red Blood Count 2.87 M/UL (4.20-5.40) L Hemoglobin 8.8 G/DL (12.0-16.0) L Hematocrit 28.2 % (37.0-47.0) L Mean Corpuscular Volume 98 FL (80-99) Mean Corpuscular Hemoglobin 30.7 PG (27.0-31.0) Mean Corpuscular Hemoglobin Concent 31.2 G/DL (32.0-36.0) L Red Cell Distribution Width 18.1 % (11.6-14.8) H Platelet Count 62 K/UL (150-450) L Mean Platelet Volume 10.1 FL (6.5-10.1) Neutrophils (%) (Auto) % (45.0-75.0) Lymphocytes (%) (Auto) % (20.0-45.0) Monocytes (%) (Auto) % (1.0-10.0) Eosinophils (%) (Auto) % (0.0-3.0) Basophils (%) (Auto) % (0.0-2.0) Differential Total Cells Counted 100 Neutrophils % (Manual) 76 % (45-75) H Lymphocytes % (Manual) 11 % (20-45) L Monocytes % (Manual) 10 % (1-10) Eosinophils % (Manual) 3 % (0-3) Basophils % (Manual) 0 % (0-2) Band Neutrophils 0 % (0-8) Platelet Estimate Decreased L Platelet Morphology Normal Sodium Level 150 MMOL/L (136-145) H Potassium Level 3.1 MMOL/L (3.5-5.1) L Chloride Level 111 MMOL/L (98-107) H Carbon Dioxide Level 32 MMOL/L (21-32) Anion Gap 7 mmol/L (5-15) Blood Urea Nitrogen 25 mg/dL (7-18) H Creatinine 3.6 MG/DL (0.55-1.30) H Estimat Glomerular Filtration Rate mL/min (>60) Glucose Level 135 MG/DL (74-106) H Calcium Level 9.0 MG/DL (8.5-10.1) Total Bilirubin 2.4 MG/DL (0.2-1.0) H Direct Bilirubin 1.4 MG/DL (0.0-0.3) H Aspartate Amino Transf (AST/SGOT) 40 U/L (15-37) H Alanine Aminotransferase (ALT/SGPT) < 6 U/L (12-78) L Alkaline Phosphatase 214 U/L (46-116) H Pro-B-Type Natriuretic Peptide 16447 pg/mL (0-125) H Total Protein 6.0 G/DL (6.4-8.2) L Albumin 1.6 G/DL (3.4-5.0) L Globulin 4.4 g/dL Albumin/Globulin Ratio 0.4 (1.0-2.7) L Random Vancomycin Level 25.0 ug/mL Objective HEAD AND NECK: No JVD.Orally intubated.Right IJ Mahurkar Catheter in place LUNGS: Coarse rhonchi CARDIOVASCULAR: Regular S1 and S2 with no gallop or murmur. ABDOMEN: Soft and nontender and obese.PEG in place EXTREMITIES: 1+ pitting edema. DEAN SHAW Feb 12, 2017 15:32
[2017-02-12] MEDS: D5 1/2NS 1,000 ML IV SCH (18:29)
--- NOTE | 2017-02-12 19:13 | Internal Med Progress Note ---
Subjective Date of Service: Feb 12, 2017 Physician Name Katharina Pond Attending Physician Rl Tee MD Current Medications Medications (Trade) Dose Ordered Sig/Pavel Route PRN Reason Start Time Stop Time Status Last Admin Dose Admin Acetaminophen (Tylenol) 650 mg Q4H PRN ORAL T>100.5 01/21/17 14:30 02/15/17 14:29 02/05/17 07:41 Chlorhexidine Gluconate (Dianne-Hex 2%) 1 applic DAILY@1999 TOPIC 01/25/17 20:00 02/24/17 19:59 02/11/17 19:50 Clotrimazole (Lotrimin) 1 applic EVERY 12 HOURS TOPIC 01/21/17 21:00 02/18/17 13:59 02/12/17 08:58 Dextrose (Dextrose 50%) STAT PRN IV Hypoglycemia 02/06/17 10:45 03/08/17 10:44 Dextrose/Sodium Chloride 1,000 ml @ 30 mls/hr Q24H IV 02/11/17 18:00 03/13/17 17:59 02/12/17 18:29 Dopamine HCl/ Dextrose 250 ml @ 0 mls/hr Q24H IV 01/25/17 11:15 02/24/17 11:14 01/30/17 10:30 Hydromorphone HCl (Dilaudid) 0.5 mg Q4H PRN IVP Pain (5-10) 02/09/17 18:00 02/15/17 10:44 02/12/17 09:23 Insulin Aspart (NovoLOG) EVERY 4 HOURS SUBQ 02/06/17 12:00 03/08/17 11:59 02/12/17 18:28 Metoclopramide HCl (Reglan) 5 mg Q8H PRN IVP Nausea & Vomiting 01/29/17 11:30 02/28/17 11:29 01/31/17 11:46 Midodrine (Pro-Amatine) 10 mg Q8HR NG 02/03/17 14:00 03/05/17 13:59 02/10/17 06:23 Nitroglycerin (Ntg) 0.4 mg Q5MIN X 3 DOSES PRN SL Prn Chest Pain 01/21/17 14:30 02/15/17 14:29 Nystatin (Nystop Powder) 1 applic THREE TIMES A DAY TOPIC 01/22/17 13:00 02/21/17 12:59 02/12/17 18:29 Ranitidine HCl (Zantac) 150 mg DAILY NG 02/03/17 18:00 03/05/17 17:59 02/11/17 15:11 Rifaximin (Xifaxan) 550 mg EVERY 12 HOURS ORAL 01/29/17 12:00 03/07/17 11:59 02/11/17 20:41 Allergies: Coded Allergies: PENICILLINS (Unverified Allergy, Unknown, 03/22/15) ROS Limited/Unobtainable: Yes Subjective 76 YO F admitted with altered mental status. Intubated and sedated. ICU . Cover for Int Med-Dr Tee. Await tracheostomy on Thu02/11/17 Objective Last Vital Signs Date Time Temp Pulse Resp B/P (MAP) Pulse Ox O2 Delivery O2 Flow Rate FiO2 02/12/17 19:00 85 18 116/58 100 Mechanical Ventilator 40 02/12/17 16:00 99.0 02/11/17 22:12 15.0 Laboratory Tests Test 02/11/17 23:00 02/12/17 04:30 Arterial Blood pH 7.492 (7.350-7.450) Arterial Blood Partial Pressure CO2 44.5 mmHg (35.0-45.0) Arterial Blood Partial Pressure O2 71.0 mmHg (75.0-100.0) L Arterial Blood HCO3 33.3 mmol/L (22.0-26.0) H Arterial Blood Oxygen Saturation 93.9 % (92.0-98.0) Arterial Blood Base Excess 9.1 Bon Test Positive White Blood Count 6.7 K/UL (4.8-10.8) Red Blood Count 2.87 M/UL (4.20-5.40) L Hemoglobin 8.8 G/DL (12.0-16.0) L Hematocrit 28.2 % (37.0-47.0) L Mean Corpuscular Volume 98 FL (80-99) Mean Corpuscular Hemoglobin 30.7 PG (27.0-31.0) Mean Corpuscular Hemoglobin Concent 31.2 G/DL (32.0-36.0) L Red Cell Distribution Width 18.1 % (11.6-14.8) H Platelet Count 62 K/UL (150-450) L Mean Platelet Volume 10.1 FL (6.5-10.1) Neutrophils (%) (Auto) % (45.0-75.0) Lymphocytes (%) (Auto) % (20.0-45.0) Monocytes (%) (Auto) % (1.0-10.0) Eosinophils (%) (Auto) % (0.0-3.0) Basophils (%) (Auto) % (0.0-2.0) Differential Total Cells Counted 100 Neutrophils % (Manual) 76 % (45-75) H Lymphocytes % (Manual) 11 % (20-45) L Monocytes % (Manual) 10 % (1-10) Eosinophils % (Manual) 3 % (0-3) Basophils % (Manual) 0 % (0-2) Band Neutrophils 0 % (0-8) Platelet Estimate Decreased L Platelet Morphology Normal Sodium Level 150 MMOL/L (136-145) H Potassium Level 3.1 MMOL/L (3.5-5.1) L Chloride Level 111 MMOL/L (98-107) H Carbon Dioxide Level 32 MMOL/L (21-32) Anion Gap 7 mmol/L (5-15) Blood Urea Nitrogen 25 mg/dL (7-18) H Creatinine 3.6 MG/DL (0.55-1.30) H Estimat Glomerular Filtration Rate mL/min (>60) Glucose Level 135 MG/DL (74-106) H Calcium Level 9.0 MG/DL (8.5-10.1) Total Bilirubin 2.4 MG/DL (0.2-1.0) H Direct Bilirubin 1.4 MG/DL (0.0-0.3) H Aspartate Amino Transf (AST/SGOT) 40 U/L (15-37) H Alanine Aminotransferase (ALT/SGPT) < 6 U/L (12-78) L Alkaline Phosphatase 214 U/L (46-116) H Pro-B-Type Natriuretic Peptide 28493 pg/mL (0-125) H Total Protein 6.0 G/DL (6.4-8.2) L Albumin 1.6 G/DL (3.4-5.0) L Globulin 4.4 g/dL Albumin/Globulin Ratio 0.4 (1.0-2.7) L Random Vancomycin Level 25.0 ug/mL Intake and Output 02/12/17 02/13/17 19:00 07:00 Intake Total 300 ml Output Total 0 ml Balance 300 ml IV Total 300 ml Output Urine Total 0 ml # Bowel Movements 100 Objective General Appearance: WD/WN, no apparent distress, moderate distress, obese EENT: PERRL/EOMI, normal ENT inspection Neck: non-tender, normal alignment, supple, normal inspection Cardiovascular: normal peripheral pulses, normal rate, regular rhythm, no gallop/murmur, no JVD Respiratory/Chest: Mechanical vent; chest wall non-tender, lungs with coarse upper air sounds, Bilat wheezes and rales, respiratory distress Abdomen: G-Tube; non tender, no organomegaly, no mass Neurologic: program administrator 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 Baumanii. See ID note. Continur ertaoenem and vanco per ID (2) CHF (congestive heart failure) Assessment & Plan: LVEF 60-65%. see cardiology note. (3) DM (diabetes mellitus) Assessment & Plan: Continue novolog sliding scale (4) Hypercholesteremia (5) HTN (hypertension) Assessment & Plan: Currently hypotensive. (6) Uncontrolled diabetes mellitus (7) Cirrhosis Assessment & Plan: see GI note. (8) Anemia Assessment & Plan: S/P transfusion 2 units PRBC (9) Altered mental status Assessment & Plan: Worsening. ICU status (10) Renal failure Assessment & Plan: Next hemodialysis 02/13/17. See nephrology note. (11) Respiratory failure Assessment & Plan: Due to CHF. Cont mech vent per pulmonary-await tracheostomy 02/11/17. Continue antibiotic per ID (12) Bradycardia Assessment & Plan: see cardiology note. (13) Hypotension Assessment & Plan: Continue dopamine Status: not improved Assessment/Plan Await tracheostomy Thu02/11/17. KATHARINA POND Feb 12, 2017 19:13
[2017-02-12] MEDS: Dyna-Hex 2% Top Sol 2oz TOPIC SCH (20:17)
--- NOTE | 2017-02-12 20:26 | General Progress Note ---
Assessment/Plan Status: unchanged Assessment/Plan encephalopathy Subjective Neurologic/Psychiatric: Reports: anxiety Allergies: Coded Allergies: PENICILLINS (Unverified Allergy, Unknown, 03/22/15) Subjective lethargic.agitated at times unchanged since previous encounter Objective Last 24 Hour Vital Signs Date Time Temp Pulse Resp B/P (MAP) Pulse Ox O2 Delivery O2 Flow Rate FiO2 02/12/17 19:37 95 20 40 02/12/17 19:00 85 18 116/58 100 Mechanical Ventilator 40 02/12/17 18:00 83 20 121/54 100 Mechanical Ventilator 40 02/12/17 17:20 85 20 40 02/12/17 17:00 92 20 120/50 100 Mechanical Ventilator 40 02/12/17 16:00 99.0 91 19 108/79 100 Mechanical Ventilator 40 02/12/17 16:00 40 02/12/17 16:00 91 02/12/17 15:15 90 20 40 02/12/17 15:00 90 20 102/46 100 Mechanical Ventilator 40 02/12/17 14:00 87 20 128/44 100 Mechanical Ventilator 40 02/12/17 13:06 73 20 40 02/12/17 13:00 91 18 101/47 99 Mechanical Ventilator 40 02/12/17 12:00 40 02/12/17 12:00 99.0 74 18 91/46 100 Mechanical Ventilator 40 02/12/17 12:00 78 02/12/17 11:57 81 18 99 02/12/17 11:55 89 20 99 02/12/17 11:15 95/46 02/12/17 11:00 87 18 96/45 97 Mechanical Ventilator 40 02/12/17 10:57 89 20 40 02/12/17 10:00 92 18 100/42 98 Mechanical Ventilator 40 02/12/17 09:18 94 20 40 02/12/17 09:00 101 19 126/94 97 Mechanical Ventilator 40 02/12/17 08:00 92 02/12/17 08:00 40 02/12/17 08:00 99.1 95 18 110/55 99 Mechanical Ventilator 40 02/12/17 07:18 98 20 40 02/12/17 07:00 100 20 107/45 98 Mechanical Ventilator 40 02/12/17 06:00 102 20 112/50 97 Mechanical Ventilator 40 02/12/17 05:27 107 24 40 02/12/17 05:00 112 20 134/60 96 Mechanical Ventilator 40 02/12/17 04:00 99 02/12/17 04:00 40 02/12/17 04:00 99.6 102 20 93/34 97 Mechanical Ventilator 40 02/12/17 03:10 98 20 40 02/12/17 03:00 97 20 100/50 96 Mechanical Ventilator 40 02/12/17 02:00 84 20 115/43 100 Mechanical Ventilator 40 02/12/17 01:05 81 20 40 02/12/17 01:00 84 20 104/50 100 Mechanical Ventilator 40 02/12/17 00:00 40 02/12/17 00:00 98.1 105 20 93/34 97 Mechanical Ventilator 40 02/12/17 00:00 92 02/11/17 23:00 119 20 114/46 97 Mechanical Ventilator 40 02/11/17 22:30 128 20 40 02/11/17 22:12 Non-Rebreather 15.0 100 02/11/17 22:10 81 20 Mechanical Ventilator 40 02/11/17 22:00 96 21 120/61 98 Mechanical Ventilator 40 02/11/17 21:00 78 21 106/51 98 Mechanical Ventilator 40 02/11/17 20:52 81 20 40 Intake and Output 02/12/17 02/13/17 19:00 07:00 Intake Total 300 ml Output Total 0 ml Balance 300 ml IV Total 300 ml Output Urine Total 0 ml # Bowel Movements 100 Laboratory Tests 02/11/17 23:00: Arterial Blood pH 7.492H, Arterial Blood Partial Pressure CO2 44.5, Arterial Blood Partial Pressure O2 71.0L, Arterial Blood HCO3 33.3H, Arterial Blood Oxygen Saturation 93.9, Arterial Blood Base Excess 9.1, Bon Test Positive 02/12/17 04:30: White Blood Count 6.7, Red Blood Count 2.87L, Hemoglobin 8.8L, Hematocrit 28.2L , Mean Corpuscular Volume 98, Mean Corpuscular Hemoglobin 30.7, Mean Corpuscular Hemoglobin Concent 31.2L, Red Cell Distribution Width 18.1H, Platelet Count 62L, Mean Platelet Volume 10.1, Neutrophils (%) (Auto) , Lymphocytes (%) (Auto) , Monocytes (%) (Auto) , Eosinophils (%) (Auto) , Basophils (%) (Auto) , Differential Total Cells Counted 100, Neutrophils % ( Manual) 76H, Lymphocytes % (Manual) 11L, Monocytes % (Manual) 10, Eosinophils % (Manual) 3, Basophils % (Manual) 0, Band Neutrophils 0, Platelet Estimate DecreasedL, Platelet Morphology Normal, Sodium Level 150H, Potassium Level 3.1L , Chloride Level 111H, Carbon Dioxide Level 32, Anion Gap 7, Blood Urea Nitrogen 25H, Creatinine 3.6H, Estimat Glomerular Filtration Rate , Glucose Level 135H, Calcium Level 9.0, Total Bilirubin 2.4H, Direct Bilirubin 1.4H, Aspartate Amino Transf (AST/SGOT) 40H, Alanine Aminotransferase (ALT/SGPT) < 6L , Alkaline Phosphatase 214H, Pro-B-Type Natriuretic Peptide 67604M, Total Protein 6.0L, Albumin 1.6L, Globulin 4.4, Albumin/Globulin Ratio 0.4L, Random Vancomycin Level 25.0 Height (Feet): 5 Height (Inches): 5.00 Weight (Pounds): 257 General Appearance: no apparent distress, lethargic, obese Neurologic: disoriented, unresponsive Oj Medel M.D. Feb 12, 2017 20:26
--- NOTE | 2017-02-12 20:27 | General Progress Note ---
Assessment/Plan Assessment/Plan ASSESSMENT AND RECOMMENDATIONS 1.Thrombocytopenia 2/2 sepsis --> downtrending --> give plts if below 10k or if below 20k and febrile --> ID following 2. Coagulopathy secondary to underlying liver cirrhosis ---> s/p Vitamin K 10 mg sq x1 and 2 units FFP --> slowly improving 3. Thrombocytopenia secondary to underlying splenomegaly. 4. Anemia 2/2 chronic disease --> Watch HH, transfuse if below 8 5. Leukocytosis secondary to underlying infection. On abx per id service --> wbc count has now normalized 6. Sepsis 2/2 UTI 7. Altered mental status 8. RAMYA on CKD,on hemodialysis Subjective ROS Limited/Unobtainable: Yes Allergies: Coded Allergies: PENICILLINS (Unverified Allergy, Unknown, 03/22/15) Subjective had peg/egd Objective Last 24 Hour Vital Signs Date Time Temp Pulse Resp B/P (MAP) Pulse Ox O2 Delivery O2 Flow Rate FiO2 02/12/17 19:37 95 20 40 02/12/17 19:00 85 18 116/58 100 Mechanical Ventilator 40 02/12/17 18:00 83 20 121/54 100 Mechanical Ventilator 40 02/12/17 17:20 85 20 40 02/12/17 17:00 92 20 120/50 100 Mechanical Ventilator 40 02/12/17 16:00 99.0 91 19 108/79 100 Mechanical Ventilator 40 02/12/17 16:00 40 02/12/17 16:00 91 02/12/17 15:15 90 20 40 02/12/17 15:00 90 20 102/46 100 Mechanical Ventilator 40 02/12/17 14:00 87 20 128/44 100 Mechanical Ventilator 40 02/12/17 13:06 73 20 40 02/12/17 13:00 91 18 101/47 99 Mechanical Ventilator 40 02/12/17 12:00 40 02/12/17 12:00 99.0 74 18 91/46 100 Mechanical Ventilator 40 02/12/17 12:00 78 02/12/17 11:57 81 18 99 02/12/17 11:55 89 20 99 02/12/17 11:15 95/46 02/12/17 11:00 87 18 96/45 97 Mechanical Ventilator 40 02/12/17 10:57 89 20 40 02/12/17 10:00 92 18 100/42 98 Mechanical Ventilator 40 10/26/17 09:18 94 20 40 02/12/17 09:00 101 19 126/94 97 Mechanical Ventilator 40 02/12/17 08:00 92 02/12/17 08:00 40 02/12/17 08:00 99.1 95 18 110/55 99 Mechanical Ventilator 40 02/12/17 07:18 98 20 40 02/12/17 07:00 100 20 107/45 98 Mechanical Ventilator 40 02/12/17 06:00 102 20 112/50 97 Mechanical Ventilator 40 02/12/17 05:27 107 24 40 02/12/17 05:00 112 20 134/60 96 Mechanical Ventilator 40 02/12/17 04:00 99 02/12/17 04:00 40 02/12/17 04:00 99.6 102 20 93/34 97 Mechanical Ventilator 40 02/12/17 03:10 98 20 40 02/12/17 03:00 97 20 100/50 96 Mechanical Ventilator 40 02/12/17 02:00 84 20 115/43 100 Mechanical Ventilator 40 02/12/17 01:05 81 20 40 02/12/17 01:00 84 20 104/50 100 Mechanical Ventilator 40 02/12/17 00:00 40 02/12/17 00:00 98.1 105 20 93/34 97 Mechanical Ventilator 40 02/12/17 00:00 92 02/11/17 23:00 119 20 114/46 97 Mechanical Ventilator 40 02/11/17 22:30 128 20 40 02/11/17 22:12 Non-Rebreather 15.0 100 02/11/17 22:10 81 20 Mechanical Ventilator 40 02/11/17 22:00 96 21 120/61 98 Mechanical Ventilator 40 02/11/17 21:00 78 21 106/51 98 Mechanical Ventilator 40 02/11/17 20:52 81 20 40 Intake and Output 02/12/17 02/13/17 19:00 07:00 Intake Total 300 ml Output Total 0 ml Balance 300 ml IV Total 300 ml Output Urine Total 0 ml # Bowel Movements 100 Laboratory Tests 02/11/17 23:00: Arterial Blood pH 7.492H, Arterial Blood Partial Pressure CO2 44.5, Arterial Blood Partial Pressure O2 71.0L, Arterial Blood HCO3 33.3H, Arterial Blood Oxygen Saturation 93.9, Arterial Blood Base Excess 9.1, Bon Test Positive 02/12/17 04:30: White Blood Count 6.7, Red Blood Count 2.87L, Hemoglobin 8.8L, Hematocrit 28.2L , Mean Corpuscular Volume 98, Mean Corpuscular Hemoglobin 30.7, Mean Corpuscular Hemoglobin Concent 31.2L, Red Cell Distribution Width 18.1H, Platelet Count 62L, Mean Platelet Volume 10.1, Neutrophils (%) (Auto) , Lymphocytes (%) (Auto) , Monocytes (%) (Auto) , Eosinophils (%) (Auto) , Basophils (%) (Auto) , Differential Total Cells Counted 100, Neutrophils % ( Manual) 76H, Lymphocytes % (Manual) 11L, Monocytes % (Manual) 10, Eosinophils % (Manual) 3, Basophils % (Manual) 0, Band Neutrophils 0, Platelet Estimate DecreasedL, Platelet Morphology Normal, Sodium Level 150H, Potassium Level 3.1L , Chloride Level 111H, Carbon Dioxide Level 32, Anion Gap 7, Blood Urea Nitrogen 25H, Creatinine 3.6H, Estimat Glomerular Filtration Rate , Glucose Level 135H, Calcium Level 9.0, Total Bilirubin 2.4H, Direct Bilirubin 1.4H, Aspartate Amino Transf (AST/SGOT) 40H, Alanine Aminotransferase (ALT/SGPT) < 6L , Alkaline Phosphatase 214H, Pro-B-Type Natriuretic Peptide 77896G, Total Protein 6.0L, Albumin 1.6L, Globulin 4.4, Albumin/Globulin Ratio 0.4L, Random Vancomycin Level 25.0 Height (Feet): 5 Height (Inches): 5.00 Weight (Pounds): 257 General Appearance: no apparent distress EENT: normal ENT inspection Neck: normal alignment Cardiovascular: regularly irregular Abdomen: no organomegaly Pelvis: no masses Extremities: non-tender Edema: mild edema Skin: warm/dry Chriss Pat Feb 12, 2017 20:27
--- NOTE | 2017-02-12 21:30 | Operative Note - Dictated ---
DATE OF OPERATION: 02/12/2017 PROCEDURE: Upper gastrointestinal endoscopy with gastrostomy tube placement. SURGEON: Yokasta Torres M.D. ANESTHESIA: Please see the separate anesthesiologist notes for details. PRE-ENDOSCOPIC DIAGNOSIS: Dysphagia. POST-ENDOSCOPIC DIAGNOSES: 1. Incidental 4 to 5 mm smooth round gastric polyp, likely a fundic gland polyp, which is left alone. 2. Gastrostomy was placed near the previous gastrostomy site. 3. Minor bleeding on the outside skin at the cut of the gastrostomy site was treated with BICAP Gold cautery with good cure effect. DESCRIPTION OF PROCEDURE: The procedure, its risks, indications, alternatives, and possible complications were explained and an informed consent was obtained. The patient was then sedated. A diagnostic upper endoscope was introduced into the oropharynx and advanced to the duodenum. No varices or ulcers were identified. There was a 4 to 5 mm likely fundic gland polyp seen in the mid body of the stomach, which was soft and round and left alone. The location for placement of gastrostomy tube was identified by palpation and transillumination techniques close to the previous gastrostomy site. A 1 cm cut was made and gastrostomy tube was placed using the standard pull technique. Minor bleeding at the outside skin was treated with BICAP Gold probe. The patient was left to recovery in good condition. COMPLICATIONS: None. RECOMMENDATIONS: 1. Observe overnight. 2. Begin tube feedings tomorrow. Yokasta Torres M.D. DR: TOM JOB#: [id number] CC:
[2017-02-13] VITALS (29 sets, daily range): BP systolic 65–128; BP diastolic 30–73
[2017-02-13] MEDS: NovoLOG Insulin Flexpen SUBQ SCH ×6 (00:41→20:36)
[2017-02-13 05:16] LABS: HEMATOCRIT 26.8 % (37.0-47.0); HEMOGLOBIN 8.4 G/DL (12.0-16.0); MEAN CORPUSCULAR VOLUME 98 FL (80-99); PLATELET COUNT 61 K/UL (150-450); RED BLOOD COUNT 2.73 M/UL (4.20-5.40); RED CELL DISTRIBUTION WIDTH 17.7 % (11.6-14.8); WHITE BLOOD COUNT 6.2 K/UL (4.8-10.8)
[2017-02-13 05:30] LABS: ALANINE AMINOTRANSFERASE < 6 U/L (12-78); ALBUMIN 1.5 G/DL (3.4-5.0); ALBUMIN/GLOBULIN RATIO 0.4 (1.0-2.7); ALKALINE PHOSPHATASE 191 U/L (46-116); ANION GAP 7 mmol/L (5-15); ASPARTATE AMINO TRANSFERASE 35 U/L (15-37); BILIRUBIN,TOTAL 2.7 MG/DL (0.2-1.0); BLOOD UREA NITROGEN 30 mg/dL (7-18); CALCIUM 8.7 MG/DL (8.5-10.1); CARBON DIOXIDE 32 MMOL/L (21-32); CHLORIDE 111 MMOL/L (98-107); CREATININE 4.5 MG/DL (0.55-1.30); PHOSPHORUS 3.6 MG/DL (2.5-4.9); SODIUM 150 MMOL/L (136-145)
[2017-02-13 05:32] LABS: BILIRUBIN,DIRECT 1.7 MG/DL (0.0-0.3)
[2017-02-13] MEDS: Midodrine 10mg tab NG SCH ×3 (06:00→22:00)
--- NOTE | 2017-02-13 09:11 | Diagnostic Imaging Report ---
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 Stable satisfactory position of endotracheal tube and right jugular for dialysis catheter. Again demonstrated is evidence of prior upper lumbar vertebral augmentation procedure. Findings are unchanged Impression: Unchanged, over 2 days, findings as above.
[2017-02-13] MEDS: Nystatin Powder 100,000 units/gm 15gm TOPIC SCH ×3 (09:28→17:14)
--- NOTE | 2017-02-13 09:30 | Infectious Diseases Prog Note ---
Assessment/Plan Assessment/Plan Assesment: Encephalopathy- possibly multifactorial- hepatic encephalopathy, infection- worsening now due to hypercapnea (transferred to ICU 01/21), on bipap> intubated Acute respiratory failure 2ry to hypercapnea, PNA; now ARDS - self-extubated, re -intubated 02/04] -CXR 02/09: diffuse bilateral interstitial and airspace disease -CXR 02/04: Pulmonary parenchymal disease, likely ARDS, overall stable Sepsis 2ry to PNA and Bacteremia, SP HCAP 2ry to ESBL. E.coli, s/p Rx -CXR 02/08: . Extensive bilateral mixed interstitial alveolar lung opacities again noted. -CXR 02/02: Diffuse extensive interstitial and alveolar pulmonary parenchymal disease is unchanged. -repeat sp cx 01/26: +4 MDR A.baumani (I Ceftazidime, R to carbapenem and aminoglycosides, Minocycline; S to Colistin, Polymyxin B) suspect Colonizer ( improving not on tx)-s/p INH Colistin Tx -Sp cx 01/22: +2 ESBK E.coli, +2 C. albicans (colonizer) -CrAg neg, cocci ab pending MRSA bacteremia- with repeat Bcx growing CoNS (?contaminant vs real). BCx cleared 01/26 SP Rx -01/16 04/23 BCx MRSA (S. Vanco JOSE A 1), repeat Bcx 01/19 Neg, 01/21 04/23 CoNS ( contaminant), 01/24 Bcx 04/23 CoNs, Bcx 01/26 Neg x4, 01/28 BCx neg -TTE 01/19(limited study): No aortic regurgitation.Trace mitral regurgitation.Mitral diastolic velocities suggest reduced left ventricular relaxation c/w diastolic dysfunction grade. Moderate tricuspid regurgitation. Leukocytosis, previously worsened up to 24, now recurrent, mild, worsening, new fever r/o new KRISHAN ?aspiration event 02/04- now resolved -Bcx 02/05, Neg; Sp cx 02/06 C. albicans (colonizer) -01/26. pyuria improving (WBC 10-15); ucx C. albicans (colonizer) -10/5 u/a WBC 30-40, ucx yeast (colonizer) -Sp cx ESBL E.coli, diaz (colonizer) Elevated LFTs, improving -[place] hep panel neg Probable MDR UTI, pyuria, s/p Rx -u/a 01/16 WBC too many to count,nit neg ,leuk est +3; UCx x3 grew >100K MDR A.baumani complex (S. tigecycline/Minocycline, Polymixin B/Colistin), >100K PsA (S. Cefepime, Zosyn; R Cipro/Levo); a prior isolated on a ucx from the same day isolated MDR PsA (I. Cefepime, R ceftzadime, Meropenem; S. Tygecicine, amikacin) -renal u/s: Nondiagnostic exam Metabolic acidosis, 2ry to renal failure- now improved after initiation of HD 01/28 RAMYA on CKD, started on HD 01/28 Cirrhosis Anemia & thrombocytopenia DM type 2 Morbid obesity DNR PLAN: -Continue to monitor off abx unless febrile, HD unstable -s/p 7d IV Vancomcyin 02/11 -s/p 18d prophylatic PO Vanco 02/09 -s/p 19d Ertapenem 02/09 -s/p 10d INH Colistin 02/07 for MDR ABC in sputum -02/03 s/p IV Vancomycin #15/14 -s/p 1 dose Amikacin / -s/p 7d Cefepime 10/7 -s/p 3d Amikacin 10/7 -s/p 7d Minocycline 10/7 -s/p 3d IV vanco 10/ -f/u cocci ab monitor CBC, temperatures monitor BMP monitor CXR vent support, trach eventually Discussed with RN. Poor px; critically ill Subjective Allergies: Coded Allergies: PENICILLINS (Unverified Allergy, Unknown, 03/22/15) Subjective afebrile now off abx bcx neg no leukocytosis . Objective Vital Signs Last 24 Hour Vital Signs Date Time Temp Pulse Resp B/P (MAP) Pulse Ox O2 Delivery O2 Flow Rate FiO2 02/13/17 09:00 99 18 128/71 99 Mechanical Ventilator 50 02/13/17 08:00 50 02/13/17 08:00 80 19 122/68 100 Mechanical Ventilator 50 02/13/17 07:00 80 19 90/50 100 Mechanical Ventilator 50 02/13/17 06:58 75 20 40 02/13/17 06:00 85 19 95/34 100 Mechanical Ventilator 50 02/13/17 05:12 91 18 40 02/13/17 05:00 86 19 92/34 100 Mechanical Ventilator 50 02/13/17 04:00 50 02/13/17 04:00 99.0 84 19 107/43 100 Mechanical Ventilator 50 02/13/17 04:00 84 02/13/17 03:43 72 20 40 02/13/17 03:00 70 19 85/36 100 Mechanical Ventilator 50 02/13/17 02:00 72 19 82/44 100 Mechanical Ventilator 50 02/13/17 01:20 69 20 40 02/13/17 01:00 84 19 88/31 100 Mechanical Ventilator 50 02/13/17 00:00 50 02/13/17 00:00 97 02/13/17 00:00 98.8 84 19 94/51 97 Mechanical Ventilator 50 02/12/17 23:58 92 21 40 02/12/17 23:00 96 19 103/43 97 Mechanical Ventilator 50 02/12/17 22:00 97 19 104/44 97 Mechanical Ventilator 50 02/12/17 21:29 92 20 40 02/12/17 21:00 94 19 104/51 100 Mechanical Ventilator 50 02/12/17 20:00 50 02/12/17 20:00 92 19 109/52 92 Mechanical Ventilator 50 02/12/17 20:00 92 02/12/17 19:37 95 20 40 02/12/17 19:00 85 18 116/58 100 Mechanical Ventilator 40 02/12/17 18:00 83 20 121/54 100 Mechanical Ventilator 40 02/12/17 17:20 85 20 40 02/12/17 17:00 92 20 120/50 100 Mechanical Ventilator 40 02/12/17 16:00 99.0 91 19 108/79 100 Mechanical Ventilator 40 02/12/17 16:00 40 02/12/17 16:00 91 02/12/17 15:15 90 20 40 02/12/17 15:00 90 20 102/46 100 Mechanical Ventilator 40 02/12/17 14:00 87 20 128/44 100 Mechanical Ventilator 40 02/12/17 13:06 73 20 40 02/12/17 13:00 91 18 101/47 99 Mechanical Ventilator 40 02/12/17 12:00 40 02/12/17 12:00 99.0 74 18 91/46 100 Mechanical Ventilator 40 02/12/17 12:00 78 02/12/17 11:57 81 18 99 02/12/17 11:55 89 20 99 02/12/17 11:15 95/46 02/12/17 11:00 87 18 96/45 97 Mechanical Ventilator 40 02/12/17 10:57 89 20 40 02/12/17 10:00 92 18 100/42 98 Mechanical Ventilator 40 Height (Feet): 5 Height (Inches): 5.00 Weight (Pounds): 257 Objective HEENT: No pale conjunctivae. No icterus.ETT in place NECK: No lymphadenopathy. CHEST: coarse breath sounds HEART: S1 and S2. ABDOMEN: Soft and obese. EXTREMITIES: No cyanosis. NEUROLOGIC: lethargic. Skin: no rashes Laboratory Tests Test 02/13/17 04:00 02/13/17 08:45 White Blood Count 6.2 K/UL (4.8-10.8) Red Blood Count 2.73 M/UL (4.20-5.40) L Hemoglobin 8.4 G/DL (12.0-16.0) L Hematocrit 26.8 % (37.0-47.0) L Mean Corpuscular Volume 98 FL (80-99) Mean Corpuscular Hemoglobin 30.8 PG (27.0-31.0) Mean Corpuscular Hemoglobin Concent 31.3 G/DL (32.0-36.0) L Red Cell Distribution Width 17.7 % (11.6-14.8) H Platelet Count 61 K/UL (150-450) L Mean Platelet Volume 8.2 FL (6.5-10.1) Neutrophils (%) (Auto) % (45.0-75.0) Lymphocytes (%) (Auto) % (20.0-45.0) Monocytes (%) (Auto) % (1.0-10.0) Eosinophils (%) (Auto) % (0.0-3.0) Basophils (%) (Auto) % (0.0-2.0) Neutrophils % (Manual) Pending Lymphocytes % (Manual) Pending Platelet Estimate Pending Platelet Morphology Pending Sodium Level 150 MMOL/L (136-145) H Potassium Level 3.0 MMOL/L (3.5-5.1) L Chloride Level 111 MMOL/L (98-107) H Carbon Dioxide Level 32 MMOL/L (21-32) Anion Gap 7 mmol/L (5-15) Blood Urea Nitrogen 30 mg/dL (7-18) H Creatinine 4.5 MG/DL (0.55-1.30) H Estimat Glomerular Filtration Rate mL/min (>60) Glucose Level 128 MG/DL (74-106) H Calcium Level 8.7 MG/DL (8.5-10.1) Phosphorus Level 3.6 MG/DL (2.5-4.9) Magnesium Level 1.7 MG/DL (1.8-2.4) L Total Bilirubin 2.7 MG/DL (0.2-1.0) H Direct Bilirubin 1.7 MG/DL (0.0-0.3) H Aspartate Amino Transf (AST/SGOT) 35 U/L (15-37) Alanine Aminotransferase (ALT/SGPT) < 6 U/L (12-78) L Alkaline Phosphatase 191 U/L (46-116) H Total Protein 5.7 G/DL (6.4-8.2) L Albumin 1.5 G/DL (3.4-5.0) L Globulin 4.2 g/dL Albumin/Globulin Ratio 0.4 (1.0-2.7) L Arterial Blood pH 7.430 (7.350-7.450) Arterial Blood Partial Pressure CO2 47.8 mmHg (35.0-45.0) H Arterial Blood Partial Pressure O2 83.3 mmHg (75.0-100.0) Arterial Blood HCO3 31.3 mmol/L (22.0-26.0) H Arterial Blood Oxygen Saturation 94.7 % (92.0-98.0) Arterial Blood Base Excess 6.2 Bon Test Positive Current Medications Medications (Trade) Dose Ordered Sig/Pavel Route PRN Reason Start Time Stop Time Status Last Admin Dose Admin Acetaminophen (Tylenol) 650 mg Q4H PRN ORAL T>100.5 01/21/17 14:30 02/15/17 14:29 02/05/17 07:41 Chlorhexidine Gluconate (Dianne-Hex 2%) 1 applic DAILY@1999 TOPIC 01/25/17 20:00 02/24/17 19:59 02/12/17 20:17 Clotrimazole (Lotrimin) 1 applic EVERY 12 HOURS TOPIC 01/21/17 21:00 02/18/17 13:59 02/12/17 21:51 Dextrose (Dextrose 50%) STAT PRN IV Hypoglycemia 02/06/17 10:45 03/08/17 10:44 Dextrose/Sodium Chloride 1,000 ml @ 30 mls/hr Q24H IV 02/11/17 18:00 03/13/17 17:59 02/12/17 18:29 Dopamine HCl/ Dextrose 250 ml @ 0 mls/hr Q24H IV 01/25/17 11:15 02/24/17 11:14 01/30/17 10:30 Hydromorphone HCl (Dilaudid) 0.5 mg Q4H PRN IVP Pain (5-10) 02/09/17 18:00 02/15/17 10:44 02/12/17 20:21 Insulin Aspart (NovoLOG) EVERY 4 HOURS SUBQ 02/06/17 12:00 03/08/17 11:59 02/12/17 18:28 Metoclopramide HCl (Reglan) 5 mg Q8H PRN IVP Nausea & Vomiting 01/29/17 11:30 02/28/17 11:29 01/31/17 11:46 Midodrine (Pro-Amatine) 10 mg Q8HR NG 02/03/17 14:00 03/05/17 13:59 02/10/17 06:23 Nitroglycerin (Ntg) 0.4 mg Q5MIN X 3 DOSES PRN SL Prn Chest Pain 01/21/17 14:30 02/15/17 14:29 Nystatin (Nystop Powder) 1 applic THREE TIMES A DAY TOPIC 01/22/17 13:00 02/21/17 12:59 02/12/17 18:29 Ranitidine HCl (Zantac) 150 mg DAILY NG 02/03/17 18:00 03/05/17 17:59 02/11/17 15:11 Rifaximin (Xifaxan) 550 mg EVERY 12 HOURS ORAL 01/29/17 12:00 03/07/17 11:59 02/11/17 20:41 Nereyda Monroe M.D. Feb 13, 2017 09:30
[2017-02-13] MEDS: Hydromorphone 0.5mg/0.5ml inj IVP PRN ×2 (09:54→17:15)
--- NOTE | 2017-02-13 10:42 | General Progress Note ---
Assessment/Plan Status: stable - from renal stand Assessment/Plan Acute on chronic renal failure- multifactorial CHF DM HTN Sepsis Now: Acute respiratory failure- Intubated - Altered level of consciousness - ESBL (extended spectrum beta-lactamase) producing bacteria infection - Cardiomegaly - DM (diabetes mellitus) - HTN (hypertension) - UTI (urinary tract infection) - Anemia - High Cholestrol - COPD - YELENA - Fatty liver Plan: trach not done yet- HD as needed K & Phos supplement as needed On midodrine Transfuse as needed, Optimize cardiac and pulmonary status 2D echo results noted avoid nephrotoxics monitor renal parameters and lytes Urine studies per orders poor prognosis Subjective ROS Limited/Unobtainable: Yes Allergies: Coded Allergies: PENICILLINS (Unverified Allergy, Unknown, 03/22/15) Objective Last 24 Hour Vital Signs Date Time Temp Pulse Resp B/P (MAP) Pulse Ox O2 Delivery O2 Flow Rate FiO2 02/13/17 10:00 114 18 102/43 98 Mechanical Ventilator 50 02/13/17 09:00 99 18 128/71 99 Mechanical Ventilator 50 02/13/17 08:55 128 40 02/13/17 08:00 50 02/13/17 08:00 80 19 122/68 100 Mechanical Ventilator 50 02/13/17 07:00 80 19 90/50 100 Mechanical Ventilator 50 02/13/17 06:58 75 20 40 02/13/17 06:00 85 19 95/34 100 Mechanical Ventilator 50 02/13/17 05:12 91 18 40 02/13/17 05:00 86 19 92/34 100 Mechanical Ventilator 50 02/13/17 04:00 50 02/13/17 04:00 99.0 84 19 107/43 100 Mechanical Ventilator 50 02/13/17 04:00 84 02/13/17 03:43 72 20 40 02/13/17 03:00 70 19 85/36 100 Mechanical Ventilator 50 02/13/17 02:00 72 19 82/44 100 Mechanical Ventilator 50 02/13/17 01:20 69 20 40 02/13/17 01:00 84 19 88/31 100 Mechanical Ventilator 50 02/13/17 00:00 50 02/13/17 00:00 97 02/13/17 00:00 98.8 84 19 94/51 97 Mechanical Ventilator 50 02/12/17 23:58 92 21 40 02/12/17 23:00 96 19 103/43 97 Mechanical Ventilator 50 02/12/17 22:00 97 19 104/44 97 Mechanical Ventilator 50 02/12/17 21:29 92 20 40 02/12/17 21:00 94 19 104/51 100 Mechanical Ventilator 50 02/12/17 20:00 50 02/12/17 20:00 92 19 109/52 92 Mechanical Ventilator 50 02/12/17 20:00 92 02/12/17 19:37 95 20 40 02/12/17 19:00 85 18 116/58 100 Mechanical Ventilator 40 02/12/17 18:00 83 20 121/54 100 Mechanical Ventilator 40 02/12/17 17:20 85 20 40 02/12/17 17:00 92 20 120/50 100 Mechanical Ventilator 40 02/12/17 16:00 99.0 91 19 108/79 100 Mechanical Ventilator 40 02/12/17 16:00 40 02/12/17 16:00 91 02/12/17 15:15 90 20 40 02/12/17 15:00 90 20 102/46 100 Mechanical Ventilator 40 02/12/17 14:00 87 20 128/44 100 Mechanical Ventilator 40 02/12/17 13:06 73 20 40 02/12/17 13:00 91 18 101/47 99 Mechanical Ventilator 40 02/12/17 12:00 40 02/12/17 12:00 99.0 74 18 91/46 100 Mechanical Ventilator 40 02/12/17 12:00 78 02/12/17 11:57 81 18 99 02/12/17 11:55 89 20 99 02/12/17 11:15 95/46 02/12/17 11:00 87 18 96/45 97 Mechanical Ventilator 40 02/12/17 10:57 89 20 40 Intake and Output 02/13/17 02/14/17 19:00 07:00 Intake Total 120 ml Balance 120 ml Intake Oral 0 ml IV Total 120 ml Laboratory Tests 02/13/17 04:00: White Blood Count 6.2, Red Blood Count 2.73L, Hemoglobin 8.4L, Hematocrit 26.8L , Mean Corpuscular Volume 98, Mean Corpuscular Hemoglobin 30.8, Mean Corpuscular Hemoglobin Concent 31.3L, Red Cell Distribution Width 17.7H, Platelet Count 61L, Mean Platelet Volume 8.2, Neutrophils (%) (Auto) , Lymphocytes (%) (Auto) , Monocytes (%) (Auto) , Eosinophils (%) (Auto) , Basophils (%) (Auto) , Differential Total Cells Counted 100, Neutrophils % ( Manual) 71, Lymphocytes % (Manual) 19L, Monocytes % (Manual) 5, Eosinophils % ( Manual) 5H, Basophils % (Manual) 0, Band Neutrophils 0, Platelet Estimate DecreasedL, Platelet Morphology Normal, Hypochromasia 1+, Anisocytosis 1+, Sodium Level 150H, Potassium Level 3.0L, Chloride Level 111H, Carbon Dioxide Level 32, Anion Gap 7, Blood Urea Nitrogen 30H, Creatinine 4.5H, Estimat Glomerular Filtration Rate , Glucose Level 128H, Calcium Level 8.7, Phosphorus Level 3.6, Magnesium Level 1.7L, Total Bilirubin 2.7H, Direct Bilirubin 1.7H, Aspartate Amino Transf (AST/SGOT) 35, Alanine Aminotransferase (ALT/SGPT) < 6L, Alkaline Phosphatase 191H, Total Protein 5.7L, Albumin 1.5L, Globulin 4.2, Albumin/Globulin Ratio 0.4L 02/13/17 08:45: Arterial Blood pH 7.430, Arterial Blood Partial Pressure CO2 47.8H, Arterial Blood Partial Pressure O2 83.3, Arterial Blood HCO3 31.3H, Arterial Blood Oxygen Saturation 94.7, Arterial Blood Base Excess 6.2, Bon Test Positive Height (Feet): 5 Height (Inches): 5.00 Weight (Pounds): 257 General Appearance: no apparent distress Respiratory/Chest: decreased breath sounds Abdomen: distended Objective no other change ANDERS MOLINA Feb 13, 2017 10:42
[2017-02-13] MEDS ORDERED: KCl 10% 40mEq/30ml liquid NG ONE (11:00)
[2017-02-13] MEDS: DOPamine 400mg/250ml 250 ML IV SCH ×2 (11:15→16:29)
--- NOTE | 2017-02-13 12:28 | General Progress Note ---
Assessment/Plan Assessment/Plan ASSESSMENT AND RECOMMENDATIONS 1.Thrombocytopenia 2/2 sepsis --> now off abx, continue to monitor --> give plts if below 10k or if below 20k and febrile --> ID following 2. Coagulopathy secondary to underlying liver cirrhosis ---> s/p Vitamin K 10 mg sq x1 and 2 units FFP --> slowly improving 3. Thrombocytopenia secondary to underlying splenomegaly. 4. Anemia 2/2 chronic disease --> Watch HH, transfuse if below 8 5. Leukocytosis secondary to underlying infection. On abx per id service --> wbc count has now normalized 6. Sepsis 2/2 UTI 7. Altered mental status 8. RAMYA on CKD,on hemodialysis Subjective ROS Limited/Unobtainable: Yes Allergies: Coded Allergies: PENICILLINS (Unverified Allergy, Unknown, 03/22/15) Subjective had peg/egd Objective Last 24 Hour Vital Signs Date Time Temp Pulse Resp B/P (MAP) Pulse Ox O2 Delivery O2 Flow Rate FiO2 02/13/17 11:15 93/47 02/13/17 10:45 118 20 40 02/13/17 10:00 114 18 102/43 98 Mechanical Ventilator 50 02/13/17 09:00 99 18 128/71 99 Mechanical Ventilator 50 02/13/17 08:55 128 40 02/13/17 08:00 50 02/13/17 08:00 80 19 122/68 100 Mechanical Ventilator 50 02/13/17 07:00 80 19 90/50 100 Mechanical Ventilator 50 02/13/17 06:58 75 20 40 02/13/17 06:00 85 19 95/34 100 Mechanical Ventilator 50 02/13/17 05:12 91 18 40 02/13/17 05:00 86 19 92/34 100 Mechanical Ventilator 50 02/13/17 04:00 50 02/13/17 04:00 99.0 84 19 107/43 100 Mechanical Ventilator 50 02/13/17 04:00 84 02/13/17 03:43 72 20 40 02/13/17 03:00 70 19 85/36 100 Mechanical Ventilator 50 02/13/17 02:00 72 19 82/44 100 Mechanical Ventilator 50 02/13/17 01:20 69 20 40 02/13/17 01:00 84 19 88/31 100 Mechanical Ventilator 50 02/13/17 00:00 50 02/13/17 00:00 97 02/13/17 00:00 98.8 84 19 94/51 97 Mechanical Ventilator 50 02/12/17 23:58 92 21 40 02/12/17 23:00 96 19 103/43 97 Mechanical Ventilator 50 02/12/17 22:00 97 19 104/44 97 Mechanical Ventilator 50 02/12/17 21:29 92 20 40 02/12/17 21:00 94 19 104/51 100 Mechanical Ventilator 50 02/12/17 20:00 50 02/12/17 20:00 92 19 109/52 92 Mechanical Ventilator 50 02/12/17 20:00 92 02/12/17 19:37 95 20 40 02/12/17 19:00 85 18 116/58 100 Mechanical Ventilator 40 02/12/17 18:00 83 20 121/54 100 Mechanical Ventilator 40 02/12/17 17:20 85 20 40 02/12/17 17:00 92 20 120/50 100 Mechanical Ventilator 40 02/12/17 16:00 99.0 91 19 108/79 100 Mechanical Ventilator 40 02/12/17 16:00 40 02/12/17 16:00 91 02/12/17 15:15 90 20 40 02/12/17 15:00 90 20 102/46 100 Mechanical Ventilator 40 02/12/17 14:00 87 20 128/44 100 Mechanical Ventilator 40 02/12/17 13:06 73 20 40 02/12/17 13:00 91 18 101/47 99 Mechanical Ventilator 40 Intake and Output 02/13/17 02/14/17 19:00 07:00 Intake Total 120 ml Output Total 0 ml Balance 120 ml Intake Oral 0 ml IV Total 120 ml Output Urine Total 0 ml Laboratory Tests 02/13/17 04:00: White Blood Count 6.2, Red Blood Count 2.73L, Hemoglobin 8.4L, Hematocrit 26.8L , Mean Corpuscular Volume 98, Mean Corpuscular Hemoglobin 30.8, Mean Corpuscular Hemoglobin Concent 31.3L, Red Cell Distribution Width 17.7H, Platelet Count 61L, Mean Platelet Volume 8.2, Neutrophils (%) (Auto) , Lymphocytes (%) (Auto) , Monocytes (%) (Auto) , Eosinophils (%) (Auto) , Basophils (%) (Auto) , Differential Total Cells Counted 100, Neutrophils % ( Manual) 71, Lymphocytes % (Manual) 19L, Monocytes % (Manual) 5, Eosinophils % ( Manual) 5H, Basophils % (Manual) 0, Band Neutrophils 0, Platelet Estimate DecreasedL, Platelet Morphology Normal, Hypochromasia 1+, Anisocytosis 1+, Sodium Level 150H, Potassium Level 3.0L, Chloride Level 111H, Carbon Dioxide Level 32, Anion Gap 7, Blood Urea Nitrogen 30H, Creatinine 4.5H, Estimat Glomerular Filtration Rate , Glucose Level 128H, Calcium Level 8.7, Phosphorus Level 3.6, Magnesium Level 1.7L, Total Bilirubin 2.7H, Direct Bilirubin 1.7H, Aspartate Amino Transf (AST/SGOT) 35, Alanine Aminotransferase (ALT/SGPT) < 6L, Alkaline Phosphatase 191H, Total Protein 5.7L, Albumin 1.5L, Globulin 4.2, Albumin/Globulin Ratio 0.4L 02/13/17 08:45: Arterial Blood pH 7.430, Arterial Blood Partial Pressure CO2 47.8H, Arterial Blood Partial Pressure O2 83.3, Arterial Blood HCO3 31.3H, Arterial Blood Oxygen Saturation 94.7, Arterial Blood Base Excess 6.2, Bon Test Positive Height (Feet): 5 Height (Inches): 5.00 Weight (Pounds): 257 General Appearance: no apparent distress Neck: normal inspection Abdomen: non tender, soft Extremities: non-tender Chriss Pat Feb 13, 2017 12:28
--- NOTE | 2017-02-13 12:46 | Cardiac Electrophysiology PN ---
Assessment/Plan Assessment/Plan 1. CHF due to diastolic dysfunction with EF 60 %. On dialysis. 2. S/P Shock, resolved.Off pressors 3. Bradycardia resolved, off dopamine. On midodrine 5 tid 4. Vent dependent respiratory failure. Self extubated on 02/04 and was reintubated an hour later. Tracheostomy rescheduled for Thursday 5. Hyperlipidemia. 6. Cirrhosis 7. Anemia with hemoglobin of 8. 8. Hypernatremia Na still 150 today 9. DNR 10. ESRD on HD 11. DM 12. Dysphagia, S/P PEG 02/12/17 DW RN Subjective Subjective In ICU on Vent. Getting HD. Had bedside PEG yesterday. Tracheostomy postponed to Thursday. Objective Last 24 Hour Vital Signs Date Time Temp Pulse Resp B/P (MAP) Pulse Ox O2 Delivery O2 Flow Rate FiO2 02/13/17 11:15 93/47 02/13/17 10:45 118 20 40 02/13/17 10:00 114 18 102/43 98 Mechanical Ventilator 50 02/13/17 09:00 99 18 128/71 99 Mechanical Ventilator 50 02/13/17 08:55 128 40 02/13/17 08:00 50 02/13/17 08:00 80 19 122/68 100 Mechanical Ventilator 50 02/13/17 07:00 80 19 90/50 100 Mechanical Ventilator 50 02/13/17 06:58 75 20 40 02/13/17 06:00 85 19 95/34 100 Mechanical Ventilator 50 02/13/17 05:12 91 18 40 02/13/17 05:00 86 19 92/34 100 Mechanical Ventilator 50 02/13/17 04:00 50 02/13/17 04:00 99.0 84 19 107/43 100 Mechanical Ventilator 50 02/13/17 04:00 84 02/13/17 03:43 72 20 40 02/13/17 03:00 70 19 85/36 100 Mechanical Ventilator 50 02/13/17 02:00 72 19 82/44 100 Mechanical Ventilator 50 02/13/17 01:20 69 20 40 02/13/17 01:00 84 19 88/31 100 Mechanical Ventilator 50 02/13/17 00:00 50 02/13/17 00:00 97 02/13/17 00:00 98.8 84 19 94/51 97 Mechanical Ventilator 50 02/12/17 23:58 92 21 40 02/12/17 23:00 96 19 103/43 97 Mechanical Ventilator 50 02/12/17 22:00 97 19 104/44 97 Mechanical Ventilator 50 02/12/17 21:29 92 20 40 02/12/17 21:00 94 19 104/51 100 Mechanical Ventilator 50 02/12/17 20:00 50 02/12/17 20:00 92 19 109/52 92 Mechanical Ventilator 50 02/12/17 20:00 92 02/12/17 19:37 95 20 40 02/12/17 19:00 85 18 116/58 100 Mechanical Ventilator 40 02/12/17 18:00 83 20 121/54 100 Mechanical Ventilator 40 02/12/17 17:20 85 20 40 02/12/17 17:00 92 20 120/50 100 Mechanical Ventilator 40 02/12/17 16:00 99.0 91 19 108/79 100 Mechanical Ventilator 40 02/12/17 16:00 40 02/12/17 16:00 91 02/12/17 15:15 90 20 40 02/12/17 15:00 90 20 102/46 100 Mechanical Ventilator 40 02/12/17 14:00 87 20 128/44 100 Mechanical Ventilator 40 02/12/17 13:06 73 20 40 02/12/17 13:00 91 18 101/47 99 Mechanical Ventilator 40 Intake and Output 02/13/17 02/14/17 19:00 07:00 Intake Total 120 ml Output Total 0 ml Balance 120 ml Intake Oral 0 ml IV Total 120 ml Output Urine Total 0 ml Laboratory Tests Test 02/13/17 04:00 02/13/17 08:45 White Blood Count 6.2 K/UL (4.8-10.8) Red Blood Count 2.73 M/UL (4.20-5.40) L Hemoglobin 8.4 G/DL (12.0-16.0) L Hematocrit 26.8 % (37.0-47.0) L Mean Corpuscular Volume 98 FL (80-99) Mean Corpuscular Hemoglobin 30.8 PG (27.0-31.0) Mean Corpuscular Hemoglobin Concent 31.3 G/DL (32.0-36.0) L Red Cell Distribution Width 17.7 % (11.6-14.8) H Platelet Count 61 K/UL (150-450) L Mean Platelet Volume 8.2 FL (6.5-10.1) Neutrophils (%) (Auto) % (45.0-75.0) Lymphocytes (%) (Auto) % (20.0-45.0) Monocytes (%) (Auto) % (1.0-10.0) Eosinophils (%) (Auto) % (0.0-3.0) Basophils (%) (Auto) % (0.0-2.0) Differential Total Cells Counted 100 Neutrophils % (Manual) 71 % (45-75) Lymphocytes % (Manual) 19 % (20-45) L Monocytes % (Manual) 5 % (1-10) Eosinophils % (Manual) 5 % (0-3) H Basophils % (Manual) 0 % (0-2) Band Neutrophils 0 % (0-8) Platelet Estimate Decreased L Platelet Morphology Normal Hypochromasia 1+ Anisocytosis 1+ Sodium Level 150 MMOL/L (136-145) H Potassium Level 3.0 MMOL/L (3.5-5.1) L Chloride Level 111 MMOL/L (98-107) H Carbon Dioxide Level 32 MMOL/L (21-32) Anion Gap 7 mmol/L (5-15) Blood Urea Nitrogen 30 mg/dL (7-18) H Creatinine 4.5 MG/DL (0.55-1.30) H Estimat Glomerular Filtration Rate mL/min (>60) Glucose Level 128 MG/DL (74-106) H Calcium Level 8.7 MG/DL (8.5-10.1) Phosphorus Level 3.6 MG/DL (2.5-4.9) Magnesium Level 1.7 MG/DL (1.8-2.4) L Total Bilirubin 2.7 MG/DL (0.2-1.0) H Direct Bilirubin 1.7 MG/DL (0.0-0.3) H Aspartate Amino Transf (AST/SGOT) 35 U/L (15-37) Alanine Aminotransferase (ALT/SGPT) < 6 U/L (12-78) L Alkaline Phosphatase 191 U/L (46-116) H Total Protein 5.7 G/DL (6.4-8.2) L Albumin 1.5 G/DL (3.4-5.0) L Globulin 4.2 g/dL Albumin/Globulin Ratio 0.4 (1.0-2.7) L Arterial Blood pH 7.430 (7.350-7.450) Arterial Blood Partial Pressure CO2 47.8 mmHg (35.0-45.0) H Arterial Blood Partial Pressure O2 83.3 mmHg (75.0-100.0) Arterial Blood HCO3 31.3 mmol/L (22.0-26.0) H Arterial Blood Oxygen Saturation 94.7 % (92.0-98.0) Arterial Blood Base Excess 6.2 Bon Test Positive Objective HEAD AND NECK: No JVD.Orally intubated.Right IJ [place]kar Catheter in place LUNGS: Coarse rhonchi CARDIOVASCULAR: Regular S1 and S2 with no gallop or murmur. ABDOMEN: Soft and nontender and obese.PEG in place EXTREMITIES: 1+ pitting edema. DEAN SHAW Feb 13, 2017 12:46
--- NOTE | 2017-02-13 13:07 | Pulmonolgy Critical Care Note ---
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 manager corporate communications - Objective Last 24 Hour Vital Signs Date Time Temp Pulse Resp B/P (MAP) Pulse Ox O2 Delivery O2 Flow Rate FiO2 02/13/17 11:15 93/47 02/13/17 10:45 118 20 40 02/13/17 10:00 114 18 102/43 98 Mechanical Ventilator 50 02/13/17 09:00 99 18 128/71 99 Mechanical Ventilator 50 02/13/17 08:55 128 40 02/13/17 08:00 50 02/13/17 08:00 80 19 122/68 100 Mechanical Ventilator 50 02/13/17 07:00 80 19 90/50 100 Mechanical Ventilator 50 02/13/17 06:58 75 20 40 02/13/17 06:00 85 19 95/34 100 Mechanical Ventilator 50 02/13/17 05:12 91 18 40 02/13/17 05:00 86 19 92/34 100 Mechanical Ventilator 50 02/13/17 04:00 50 02/13/17 04:00 99.0 84 19 107/43 100 Mechanical Ventilator 50 02/13/17 04:00 84 02/13/17 03:43 72 20 40 02/13/17 03:00 70 19 85/36 100 Mechanical Ventilator 50 02/13/17 02:00 72 19 82/44 100 Mechanical Ventilator 50 02/13/17 01:20 69 20 40 02/13/17 01:00 84 19 88/31 100 Mechanical Ventilator 50 02/13/17 00:00 50 02/13/17 00:00 97 02/13/17 00:00 98.8 84 19 94/51 97 Mechanical Ventilator 50 02/12/17 23:58 92 21 40 02/12/17 23:00 96 19 103/43 97 Mechanical Ventilator 50 02/12/17 22:00 97 19 104/44 97 Mechanical Ventilator 50 02/12/17 21:29 92 20 40 02/12/17 21:00 94 19 104/51 100 Mechanical Ventilator 50 02/12/17 20:00 50 02/12/17 20:00 92 19 109/52 92 Mechanical Ventilator 50 02/12/17 20:00 92 02/12/17 19:37 95 20 40 02/12/17 19:00 85 18 116/58 100 Mechanical Ventilator 40 02/12/17 18:00 83 20 121/54 100 Mechanical Ventilator 40 02/12/17 17:20 85 20 40 02/12/17 17:00 92 20 120/50 100 Mechanical Ventilator 40 02/12/17 16:00 99.0 91 19 108/79 100 Mechanical Ventilator 40 02/12/17 16:00 40 02/12/17 16:00 91 02/12/17 15:15 90 20 40 02/12/17 15:00 90 20 102/46 100 Mechanical Ventilator 40 02/12/17 14:00 87 20 128/44 100 Mechanical Ventilator 40 Status: awake Condition: critical HEENT: atraumatic Neck: full ROM Heart: HR/BP stable, regular Abdomen: non-tender, feeding tube Extremities: no C/C/E, edema Accucheck: 119 Critical Care - Subjective ROS Limited/Unobtainable: No Condition: critical EKG Rhythm: Sinus Rhythm FI02: 40 Vent Support Breath Rate: 20 Vent Support Mode: AC Vent Tidal Volume: 650 Sputum Amount: Scant PEEP: 0.0 PIP: 44 I&O: Intake and Output 02/13/17 02/14/17 19:00 07:00 Intake Total 120 ml Output Total 0 ml Balance 120 ml Intake Oral 0 ml IV Total 120 ml Output Urine Total 0 ml CXR: no change ET-Tube: 7.0 ET Position: 20 Labs: Laboratory Tests Test 02/13/17 04:00 02/13/17 08:45 White Blood Count 6.2 K/UL (4.8-10.8) Red Blood Count 2.73 M/UL (4.20-5.40) L Hemoglobin 8.4 G/DL (12.0-16.0) L Hematocrit 26.8 % (37.0-47.0) L Mean Corpuscular Volume 98 FL (80-99) Mean Corpuscular Hemoglobin 30.8 PG (27.0-31.0) Mean Corpuscular Hemoglobin Concent 31.3 G/DL (32.0-36.0) L Red Cell Distribution Width 17.7 % (11.6-14.8) H Platelet Count 61 K/UL (150-450) L Mean Platelet Volume 8.2 FL (6.5-10.1) Neutrophils (%) (Auto) % (45.0-75.0) Lymphocytes (%) (Auto) % (20.0-45.0) Monocytes (%) (Auto) % (1.0-10.0) Eosinophils (%) (Auto) % (0.0-3.0) Basophils (%) (Auto) % (0.0-2.0) Differential Total Cells Counted 100 Neutrophils % (Manual) 71 % (45-75) Lymphocytes % (Manual) 19 % (20-45) L Monocytes % (Manual) 5 % (1-10) Eosinophils % (Manual) 5 % (0-3) H Basophils % (Manual) 0 % (0-2) Band Neutrophils 0 % (0-8) Platelet Estimate Decreased L Platelet Morphology Normal Hypochromasia 1+ Anisocytosis 1+ Sodium Level 150 MMOL/L (136-145) H Potassium Level 3.0 MMOL/L (3.5-5.1) L Chloride Level 111 MMOL/L (98-107) H Carbon Dioxide Level 32 MMOL/L (21-32) Anion Gap 7 mmol/L (5-15) Blood Urea Nitrogen 30 mg/dL (7-18) H Creatinine 4.5 MG/DL (0.55-1.30) H Estimat Glomerular Filtration Rate mL/min (>60) Glucose Level 128 MG/DL (74-106) H Calcium Level 8.7 MG/DL (8.5-10.1) Phosphorus Level 3.6 MG/DL (2.5-4.9) Magnesium Level 1.7 MG/DL (1.8-2.4) L Total Bilirubin 2.7 MG/DL (0.2-1.0) H Direct Bilirubin 1.7 MG/DL (0.0-0.3) H Aspartate Amino Transf (AST/SGOT) 35 U/L (15-37) Alanine Aminotransferase (ALT/SGPT) < 6 U/L (12-78) L Alkaline Phosphatase 191 U/L (46-116) H Total Protein 5.7 G/DL (6.4-8.2) L Albumin 1.5 G/DL (3.4-5.0) L Globulin 4.2 g/dL Albumin/Globulin Ratio 0.4 (1.0-2.7) L Arterial Blood pH 7.430 (7.350-7.450) Arterial Blood Partial Pressure CO2 47.8 mmHg (35.0-45.0) H Arterial Blood Partial Pressure O2 83.3 mmHg (75.0-100.0) Arterial Blood HCO3 31.3 mmol/L (22.0-26.0) H Arterial Blood Oxygen Saturation 94.7 % (92.0-98.0) Arterial Blood Base Excess 6.2 Bon Test Positive DIONI TRIANA Feb 13, 2017 13:07
--- NOTE | 2017-02-13 13:51 | General Progress Note ---
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 - dysphagia Recommendations - continue off of lactulose - continue Xifaxan - Restart TF - follow labs - HD/lytes per Renal - free water Subjective Allergies: Coded Allergies: PENICILLINS (Unverified Allergy, Unknown, 03/22/15) Subjective above noted seen in ICU POD #1 s/p PEG Objective Last 24 Hour Vital Signs Date Time Temp Pulse Resp B/P (MAP) Pulse Ox O2 Delivery O2 Flow Rate FiO2 02/13/17 11:15 93/47 02/13/17 10:45 118 20 40 02/13/17 10:00 114 18 102/43 98 Mechanical Ventilator 50 02/13/17 09:00 99 18 128/71 99 Mechanical Ventilator 50 02/13/17 08:55 128 40 02/13/17 08:00 50 02/13/17 08:00 80 19 122/68 100 Mechanical Ventilator 50 02/13/17 07:00 80 19 90/50 100 Mechanical Ventilator 50 02/13/17 06:58 75 20 40 02/13/17 06:00 85 19 95/34 100 Mechanical Ventilator 50 02/13/17 05:12 91 18 40 02/13/17 05:00 86 19 92/34 100 Mechanical Ventilator 50 02/13/17 04:00 50 02/13/17 04:00 99.0 84 19 107/43 100 Mechanical Ventilator 50 02/13/17 04:00 84 02/13/17 03:43 72 20 40 02/13/17 03:00 70 19 85/36 100 Mechanical Ventilator 50 02/13/17 02:00 72 19 82/44 100 Mechanical Ventilator 50 02/13/17 01:20 69 20 40 02/13/17 01:00 84 19 88/31 100 Mechanical Ventilator 50 02/13/17 00:00 50 02/13/17 00:00 97 02/13/17 00:00 98.8 84 19 94/51 97 Mechanical Ventilator 50 02/12/17 23:58 92 21 40 02/12/17 23:00 96 19 103/43 97 Mechanical Ventilator 50 02/12/17 22:00 97 19 104/44 97 Mechanical Ventilator 50 02/12/17 21:29 92 20 40 02/12/17 21:00 94 19 104/51 100 Mechanical Ventilator 50 02/12/17 20:00 50 02/12/17 20:00 92 19 109/52 92 Mechanical Ventilator 50 02/12/17 20:00 92 02/12/17 19:37 95 20 40 02/12/17 19:00 85 18 116/58 100 Mechanical Ventilator 40 02/12/17 18:00 83 20 121/54 100 Mechanical Ventilator 40 02/12/17 17:20 85 20 40 02/12/17 17:00 92 20 120/50 100 Mechanical Ventilator 40 02/12/17 16:00 99.0 91 19 108/79 100 Mechanical Ventilator 40 02/12/17 16:00 40 02/12/17 16:00 91 02/12/17 15:15 90 20 40 02/12/17 15:00 90 20 102/46 100 Mechanical Ventilator 40 02/12/17 14:00 87 20 128/44 100 Mechanical Ventilator 40 Intake and Output 02/13/17 02/14/17 19:00 07:00 Intake Total 120 ml Output Total 0 ml Balance 120 ml Intake Oral 0 ml IV Total 120 ml Output Urine Total 0 ml Laboratory Tests 02/13/17 04:00: White Blood Count 6.2, Red Blood Count 2.73L, Hemoglobin 8.4L, Hematocrit 26.8L , Mean Corpuscular Volume 98, Mean Corpuscular Hemoglobin 30.8, Mean Corpuscular Hemoglobin Concent 31.3L, Red Cell Distribution Width 17.7H, Platelet Count 61L, Mean Platelet Volume 8.2, Neutrophils (%) (Auto) , Lymphocytes (%) (Auto) , Monocytes (%) (Auto) , Eosinophils (%) (Auto) , Basophils (%) (Auto) , Differential Total Cells Counted 100, Neutrophils % ( Manual) 71, Lymphocytes % (Manual) 19L, Monocytes % (Manual) 5, Eosinophils % ( Manual) 5H, Basophils % (Manual) 0, Band Neutrophils 0, Platelet Estimate DecreasedL, Platelet Morphology Normal, Hypochromasia 1+, Anisocytosis 1+, Sodium Level 150H, Potassium Level 3.0L, Chloride Level 111H, Carbon Dioxide Level 32, Anion Gap 7, Blood Urea Nitrogen 30H, Creatinine 4.5H, Estimat Glomerular Filtration Rate , Glucose Level 128H, Calcium Level 8.7, Phosphorus Level 3.6, Magnesium Level 1.7L, Total Bilirubin 2.7H, Direct Bilirubin 1.7H, Aspartate Amino Transf (AST/SGOT) 35, Alanine Aminotransferase (ALT/SGPT) < 6L, Alkaline Phosphatase 191H, Total Protein 5.7L, Albumin 1.5L, Globulin 4.2, Albumin/Globulin Ratio 0.4L 02/13/17 08:45: Arterial Blood pH 7.430, Arterial Blood Partial Pressure CO2 47.8H, Arterial Blood Partial Pressure O2 83.3, Arterial Blood HCO3 31.3H, Arterial Blood Oxygen Saturation 94.7, Arterial Blood Base Excess 6.2, Bon Test Positive Height (Feet): 5 Height (Inches): 5.00 Weight (Pounds): 257 Objective Obese WW NCAT, (+) ETT and NGT supple CTA RRR soft ND NT, (+) PEG (+) edema confused KIERSTEN DAVIES Feb 13, 2017 13:51
[2017-02-13] MEDS ORDERED: D5NS 1000ml IV ONE (14:14)
[2017-02-13] MEDS ORDERED: D5 1/2NS 1000ml IV ONE (14:14)
--- NOTE | 2017-02-13 14:40 | General Progress Note ---
Assessment/Plan Status: not improved, unchanged Assessment/Plan encephalopathy Subjective Neurologic/Psychiatric: Reports: anxiety, depressed, emotional problems Allergies: Coded Allergies: PENICILLINS (Unverified Allergy, Unknown, 03/22/15) Subjective lethargic however is oriented to self the pt has low energy. Objective Last 24 Hour Vital Signs Date Time Temp Pulse Resp B/P (MAP) Pulse Ox O2 Delivery O2 Flow Rate FiO2 02/13/17 11:15 93/47 02/13/17 10:45 118 20 40 02/13/17 10:00 114 18 102/43 98 Mechanical Ventilator 50 02/13/17 09:00 99 18 128/71 99 Mechanical Ventilator 50 02/13/17 08:55 128 40 02/13/17 08:00 50 02/13/17 08:00 80 19 122/68 100 Mechanical Ventilator 50 02/13/17 07:00 80 19 90/50 100 Mechanical Ventilator 50 02/13/17 06:58 75 20 40 02/13/17 06:00 85 19 95/34 100 Mechanical Ventilator 50 02/13/17 05:12 91 18 40 02/13/17 05:00 86 19 92/34 100 Mechanical Ventilator 50 02/13/17 04:00 50 02/13/17 04:00 99.0 84 19 107/43 100 Mechanical Ventilator 50 02/13/17 04:00 84 02/13/17 03:43 72 20 40 02/13/17 03:00 70 19 85/36 100 Mechanical Ventilator 50 02/13/17 02:00 72 19 82/44 100 Mechanical Ventilator 50 02/13/17 01:20 69 20 40 02/13/17 01:00 84 19 88/31 100 Mechanical Ventilator 50 02/13/17 00:00 50 02/13/17 00:00 97 02/13/17 00:00 98.8 84 19 94/51 97 Mechanical Ventilator 50 02/12/17 23:58 92 21 40 02/12/17 23:00 96 19 103/43 97 Mechanical Ventilator 50 02/12/17 22:00 97 19 104/44 97 Mechanical Ventilator 50 02/12/17 21:29 92 20 40 02/12/17 21:00 94 19 104/51 100 Mechanical Ventilator 50 02/12/17 20:00 50 02/12/17 20:00 92 19 109/52 92 Mechanical Ventilator 50 02/12/17 20:00 92 02/12/17 19:37 95 20 40 02/12/17 19:00 85 18 116/58 100 Mechanical Ventilator 40 02/12/17 18:00 83 20 121/54 100 Mechanical Ventilator 40 02/12/17 17:20 85 20 40 02/12/17 17:00 92 20 120/50 100 Mechanical Ventilator 40 02/12/17 16:00 99.0 91 19 108/79 100 Mechanical Ventilator 40 02/12/17 16:00 40 02/12/17 16:00 91 02/12/17 15:15 90 20 40 02/12/17 15:00 90 20 102/46 100 Mechanical Ventilator 40 Intake and Output 02/13/17 02/14/17 19:00 07:00 Intake Total 120 ml Output Total 0 ml Balance 120 ml Intake Oral 0 ml IV Total 120 ml Output Urine Total 0 ml Laboratory Tests 02/13/17 04:00: White Blood Count 6.2, Red Blood Count 2.73L, Hemoglobin 8.4L, Hematocrit 26.8L , Mean Corpuscular Volume 98, Mean Corpuscular Hemoglobin 30.8, Mean Corpuscular Hemoglobin Concent 31.3L, Red Cell Distribution Width 17.7H, Platelet Count 61L, Mean Platelet Volume 8.2, Neutrophils (%) (Auto) , Lymphocytes (%) (Auto) , Monocytes (%) (Auto) , Eosinophils (%) (Auto) , Basophils (%) (Auto) , Differential Total Cells Counted 100, Neutrophils % ( Manual) 71, Lymphocytes % (Manual) 19L, Monocytes % (Manual) 5, Eosinophils % ( Manual) 5H, Basophils % (Manual) 0, Band Neutrophils 0, Platelet Estimate DecreasedL, Platelet Morphology Normal, Hypochromasia 1+, Anisocytosis 1+, Sodium Level 150H, Potassium Level 3.0L, Chloride Level 111H, Carbon Dioxide Level 32, Anion Gap 7, Blood Urea Nitrogen 30H, Creatinine 4.5H, Estimat Glomerular Filtration Rate , Glucose Level 128H, Calcium Level 8.7, Phosphorus Level 3.6, Magnesium Level 1.7L, Total Bilirubin 2.7H, Direct Bilirubin 1.7H, Aspartate Amino Transf (AST/SGOT) 35, Alanine Aminotransferase (ALT/SGPT) < 6L, Alkaline Phosphatase 191H, Total Protein 5.7L, Albumin 1.5L, Globulin 4.2, Albumin/Globulin Ratio 0.4L 02/13/17 08:45: Arterial Blood pH 7.430, Arterial Blood Partial Pressure CO2 47.8H, Arterial Blood Partial Pressure O2 83.3, Arterial Blood HCO3 31.3H, Arterial Blood Oxygen Saturation 94.7, Arterial Blood Base Excess 6.2, Bon Test Positive Height (Feet): 5 Height (Inches): 5.00 Weight (Pounds): 257 General Appearance: no apparent distress, lethargic, overweight Neurologic: disoriented, depressed affect Oj Medel M.D. Feb 13, 2017 14:40
--- NOTE | 2017-02-13 16:29 | General Progress Note ---
Progress Note Progress Note ENT Pt has been rescheduled for Thursday 7AM Again, anesthesia is responsible for there own consent and should talk with family ahead of time. The nursing stff has notified anesthesia. In addition, I have notified anesthesia. GENARO CAMPOS Feb 13, 2017 16:29
--- NOTE | 2017-02-13 19:06 | Internal Med Progress Note ---
Subjective Date of Service: Feb 13, 2017 Physician Name Pond,Katharina Attending Physician Rl Tee MD Current Medications Medications (Trade) Dose Ordered Sig/Pavel Route PRN Reason Start Time Stop Time Status Last Admin Dose Admin Acetaminophen (Tylenol) 650 mg Q4H PRN ORAL T>100.5 01/21/17 14:30 02/15/17 14:29 02/05/17 07:41 Chlorhexidine Gluconate (Dianne-Hex 2%) 1 applic DAILY@1999 TOPIC 01/25/17 20:00 02/24/17 19:59 02/12/17 20:17 Clotrimazole (Lotrimin) 1 applic EVERY 12 HOURS TOPIC 01/21/17 21:00 02/18/17 13:59 02/13/17 09:28 Dextrose (Dextrose 50%) STAT PRN IV Hypoglycemia 02/06/17 10:45 03/08/17 10:44 Dopamine HCl/ Dextrose 250 ml @ 0 mls/hr Q24H IV 01/25/17 11:15 02/24/17 11:14 02/13/17 16:29 Hydromorphone HCl (Dilaudid) 0.5 mg Q4H PRN IVP Pain (5-10) 02/09/17 18:00 02/15/17 10:44 02/13/17 17:15 Insulin Aspart (NovoLOG) EVERY 4 HOURS SUBQ 02/06/17 12:00 03/08/17 11:59 02/13/17 16:45 Metoclopramide HCl (Reglan) 5 mg Q8H PRN IVP Nausea & Vomiting 01/29/17 11:30 02/28/17 11:29 01/31/17 11:46 Midodrine (Pro-Amatine) 10 mg Q8HR NG 02/03/17 14:00 03/05/17 13:59 02/13/17 14:03 Nitroglycerin (Ntg) 0.4 mg Q5MIN X 3 DOSES PRN SL Prn Chest Pain 01/21/17 14:30 02/15/17 14:29 Nystatin (Nystop Powder) 1 applic THREE TIMES A DAY TOPIC 01/22/17 13:00 02/21/17 12:59 02/13/17 17:14 Ranitidine HCl (Zantac) 150 mg DAILY NG 02/03/17 18:00 03/05/17 17:59 02/13/17 09:28 Rifaximin (Xifaxan) 550 mg EVERY 12 HOURS ORAL 01/29/17 12:00 03/07/17 11:59 02/13/17 09:28 Allergies: Coded Allergies: PENICILLINS (Unverified Allergy, Unknown, 03/22/15) ROS Limited/Unobtainable: Yes Subjective 76 YO F admitted with altered mental status. Intubated and sedated. ICU . Cover for Int Med-Dr Tee. S/P PEG 02/12/17. Await tracheostomy on Mon Objective Last Vital Signs Date Time Temp Pulse Resp B/P (MAP) Pulse Ox O2 Delivery O2 Flow Rate FiO2 02/13/17 18:02 115 20 90/73 98 Mechanical Ventilator 50 02/13/17 17:45 99.5 02/13/17 16:29 15.0 Laboratory Tests Test 02/13/17 04:00 02/13/17 08:45 White Blood Count 6.2 K/UL (4.8-10.8) Red Blood Count 2.73 M/UL (4.20-5.40) L Hemoglobin 8.4 G/DL (12.0-16.0) L Hematocrit 26.8 % (37.0-47.0) L Mean Corpuscular Volume 98 FL (80-99) Mean Corpuscular Hemoglobin 30.8 PG (27.0-31.0) Mean Corpuscular Hemoglobin Concent 31.3 G/DL (32.0-36.0) L Red Cell Distribution Width 17.7 % (11.6-14.8) H Platelet Count 61 K/UL (150-450) L Mean Platelet Volume 8.2 FL (6.5-10.1) Neutrophils (%) (Auto) % (45.0-75.0) Lymphocytes (%) (Auto) % (20.0-45.0) Monocytes (%) (Auto) % (1.0-10.0) Eosinophils (%) (Auto) % (0.0-3.0) Basophils (%) (Auto) % (0.0-2.0) Differential Total Cells Counted 100 Neutrophils % (Manual) 71 % (45-75) Lymphocytes % (Manual) 19 % (20-45) L Monocytes % (Manual) 5 % (1-10) Eosinophils % (Manual) 5 % (0-3) H Basophils % (Manual) 0 % (0-2) Band Neutrophils 0 % (0-8) Platelet Estimate Decreased L Platelet Morphology Normal Hypochromasia 1+ Anisocytosis 1+ Sodium Level 150 MMOL/L (136-145) H Potassium Level 3.0 MMOL/L (3.5-5.1) L Chloride Level 111 MMOL/L (98-107) H Carbon Dioxide Level 32 MMOL/L (21-32) Anion Gap 7 mmol/L (5-15) Blood Urea Nitrogen 30 mg/dL (7-18) H Creatinine 4.5 MG/DL (0.55-1.30) H Estimat Glomerular Filtration Rate mL/min (>60) Glucose Level 128 MG/DL (74-106) H Calcium Level 8.7 MG/DL (8.5-10.1) Phosphorus Level 3.6 MG/DL (2.5-4.9) Magnesium Level 1.7 MG/DL (1.8-2.4) L Total Bilirubin 2.7 MG/DL (0.2-1.0) H Direct Bilirubin 1.7 MG/DL (0.0-0.3) H Aspartate Amino Transf (AST/SGOT) 35 U/L (15-37) Alanine Aminotransferase (ALT/SGPT) < 6 U/L (12-78) L Alkaline Phosphatase 191 U/L (46-116) H Total Protein 5.7 G/DL (6.4-8.2) L Albumin 1.5 G/DL (3.4-5.0) L Globulin 4.2 g/dL Albumin/Globulin Ratio 0.4 (1.0-2.7) L Arterial Blood pH 7.430 (7.350-7.450) Arterial Blood Partial Pressure CO2 47.8 mmHg (35.0-45.0) H Arterial Blood Partial Pressure O2 83.3 mmHg (75.0-100.0) Arterial Blood HCO3 31.3 mmol/L (22.0-26.0) H Arterial Blood Oxygen Saturation 94.7 % (92.0-98.0) Arterial Blood Base Excess 6.2 Bon Test Positive Intake and Output 02/13/17 02/14/17 19:00 07:00 Intake Total 120 ml Output Total 200 ml Balance -80 ml Intake Oral 0 ml IV Total 120 ml Output Urine Total 0 ml Stool Total 200 ml Hemodialysis UF 0 ml Objective General Appearance: WD/WN, no apparent distress, moderate distress, obese EENT: PERRL/EOMI, normal ENT inspection Neck: non-tender, normal alignment, supple, normal inspection Cardiovascular: normal peripheral pulses, normal rate, regular rhythm, no gallop/murmur, no JVD Respiratory/Chest: Mechanical vent; chest wall non-tender, lungs with coarse upper air sounds, Bilat wheezes and rales, respiratory distress Abdomen: G-Tube; non tender, no organomegaly, no mass Neurologic: glass deposition tender 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 Baumanii. See ID note. Continur ertaoenem and vanco per ID (2) CHF (congestive heart failure) Assessment & Plan: LVEF 60-65%. see cardiology note. (3) DM (diabetes mellitus) Assessment & Plan: Continue novolog sliding scale (4) Hypercholesteremia (5) HTN (hypertension) Assessment & Plan: Currently hypotensive. (6) Uncontrolled diabetes mellitus (7) Cirrhosis Assessment & Plan: see GI note. (8) Anemia Assessment & Plan: S/P transfusion 2 units PRBC (9) Altered mental status Assessment & Plan: Worsening. ICU status (10) Renal failure Assessment & Plan: Next hemodialysis 02/13/17. See nephrology note. (11) Respiratory failure Assessment & Plan: Due to CHF. Cont mech vent per pulmonary-await tracheostomy 02/16/17. Continue antibiotic per ID (12) Bradycardia Assessment & Plan: see cardiology note. (13) Hypotension Assessment & Plan: Continue dopamine Assessment/Plan Await tracheostomy Thu02/16/17. KATHARINA POND Feb 13, 2017 19:06
[2017-02-13] MEDS: Dyna-Hex 2% Top Sol 2oz TOPIC SCH (19:43)
[2017-02-14] VITALS (24 sets, daily range): BP systolic 86–159; BP diastolic 35–59
[2017-02-14] MEDS: NovoLOG Insulin Flexpen SUBQ SCH ×6 (00:40→20:50)
[2017-02-14] MEDS: Hydromorphone 0.5mg/0.5ml inj IVP PRN ×2 (04:06→09:37)
[2017-02-14] MEDS: Midodrine 10mg tab NG SCH ×3 (05:58→22:00)
[2017-02-14 06:26] LABS: HEMATOCRIT 28.3 % (37.0-47.0); HEMOGLOBIN 9.1 G/DL (12.0-16.0); MEAN CORPUSCULAR VOLUME 99 FL (80-99); PLATELET COUNT 90 K/UL (150-450); RED BLOOD COUNT 2.85 M/UL (4.20-5.40); WHITE BLOOD COUNT 10.2 K/UL (4.8-10.8)
[2017-02-14] MEDS ORDERED: LORazepam Inj 2mg/ml 1ml IV PRN (08:00)
[2017-02-14 08:20] LABS: ALANINE AMINOTRANSFERASE < 6 U/L (12-78); ALBUMIN 1.5 G/DL (3.4-5.0); ALBUMIN/GLOBULIN RATIO 0.3 (1.0-2.7); ALKALINE PHOSPHATASE 193 U/L (46-116); ANION GAP 7 mmol/L (5-15); ASPARTATE AMINO TRANSFERASE 41 U/L (15-37); BILIRUBIN,TOTAL 2.9 MG/DL (0.2-1.0); BLOOD UREA NITROGEN 22 mg/dL (7-18); CALCIUM 8.6 MG/DL (8.5-10.1); CARBON DIOXIDE 30 MMOL/L (21-32); CHLORIDE 109 MMOL/L (98-107); CREATININE 3.7 MG/DL (0.55-1.30); POTASSIUM 3.5 MMOL/L (3.5-5.1); SODIUM 146 MMOL/L (136-145)
--- NOTE | 2017-02-14 08:31 | Pulmonolgy Critical Care Note ---
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 Respiratory: monitor respiratory rate, adjust FIO2, CXR Cardiac: continue to monitor HR/BP Renal: F/U I&O, keep IV fluid Infectious Disease: check cultures, continue antibiotics Gastrointestinal: continue feedings/current rate Endocrine: check HgA1C, continue sliding scale insulin Hematologic: monitor H/H, transfuse if hgb<8.5 Neurologic: keep patient comfortable Affect: PRN ativan Prophylaxis: Protonix Critical Care - Objective Last 24 Hour Vital Signs Date Time Temp Pulse Resp B/P (MAP) Pulse Ox O2 Delivery O2 Flow Rate FiO2 02/14/17 07:51 104 22 40 02/14/17 07:00 106 20 94/37 98 Mechanical Ventilator 50 02/14/17 06:00 106 20 103/43 98 Mechanical Ventilator 50 02/14/17 05:36 121 22 40 02/14/17 05:00 103 20 97/37 98 Mechanical Ventilator 50 02/14/17 04:00 99.1 116 21 104/48 96 Mechanical Ventilator 50 02/14/17 04:00 114 02/14/17 04:00 50 02/14/17 03:28 112 20 40 02/14/17 03:00 111 19 112/51 97 Mechanical Ventilator 50 02/14/17 02:00 113 19 139/58 99 Mechanical Ventilator 50 02/14/17 01:09 101 27 40 02/14/17 01:00 101 20 148/47 100 Mechanical Ventilator 50 02/14/17 00:00 99.5 105 20 159/51 100 Mechanical Ventilator 50 02/14/17 00:00 89 02/13/17 23:00 101 24 106/39 100 Mechanical Ventilator 50 02/13/17 22:36 97 20 40 02/13/17 22:30 99 20 110/44 99 Mechanical Ventilator 50 02/13/17 22:00 96 20 97/38 98 Mechanical Ventilator 50 02/13/17 21:30 96 20 106/36 99 Mechanical Ventilator 50 02/13/17 21:16 92 20 40 02/13/17 21:00 95 20 96/39 100 Mechanical Ventilator 50 02/13/17 20:30 96 20 98/38 100 Mechanical Ventilator 50 02/13/17 20:00 96 20 100/43 99 Mechanical Ventilator 50 02/13/17 20:00 50 02/13/17 20:00 97 02/13/17 19:49 95 20 40 02/13/17 19:30 98 20 100/44 98 Mechanical Ventilator 50 02/13/17 19:00 99.5 98 20 85/42 98 Mechanical Ventilator 50 02/13/17 18:02 115 20 90/73 98 Mechanical Ventilator 50 02/13/17 17:50 123 18 40 02/13/17 17:45 99.5 02/13/17 17:00 118 20 85/62 99 Mechanical Ventilator 50 02/13/17 16:29 81/43 02/13/17 16:29 Mechanical Ventilator 15.0 40 02/13/17 16:00 91 02/13/17 16:00 50 02/13/17 16:00 99.0 115 20 65/43 99 Mechanical Ventilator 50 02/13/17 15:22 92 21 40 02/13/17 15:00 93 20 76/30 99 Mechanical Ventilator 50 02/13/17 14:00 103 20 85/30 99 Mechanical Ventilator 50 02/13/17 13:26 108 20 40 02/13/17 13:00 108 20 83/37 98 Mechanical Ventilator 50 02/13/17 12:00 50 02/13/17 12:00 111 21 93/35 98 Mechanical Ventilator 50 02/13/17 11:15 93/47 02/13/17 11:00 116 21 86/48 98 Mechanical Ventilator 50 02/13/17 10:45 118 20 40 02/13/17 10:30 Mechanical Ventilator 15.0 50 02/13/17 10:00 114 18 102/43 98 Mechanical Ventilator 50 02/13/17 09:00 99 18 128/71 99 Mechanical Ventilator 50 02/13/17 08:55 128 40 Status: awake Condition: critical HEENT: atraumatic Neck: full ROM Lungs: clear Heart: HR/BP stable Abdomen: soft, non-tender, feeding tube Extremities: no C/C/E, edema Decubiti: location Accucheck: 198 Critical Care - Subjective ROS Limited/Unobtainable: Yes ICU Day: 20 Intubation Day: 20 FI02: 40 Vent Support Breath Rate: 20 Vent Support Mode: AC Vent Tidal Volume: 650 Sputum Amount: Moderate PEEP: 0.0 PIP: 38 Tube Feeding Amount: 35 CXR: no change ET-Tube: 7.0 ET Position: 20 Labs: Laboratory Tests Test 02/13/17 08:45 02/14/17 05:45 Arterial Blood pH 7.430 (7.350-7.450) Arterial Blood Partial Pressure CO2 47.8 mmHg (35.0-45.0) H Arterial Blood Partial Pressure O2 83.3 mmHg (75.0-100.0) Arterial Blood HCO3 31.3 mmol/L (22.0-26.0) H Arterial Blood Oxygen Saturation 94.7 % (92.0-98.0) Arterial Blood Base Excess 6.2 Bon Test Positive White Blood Count 10.2 K/UL (4.8-10.8) # Red Blood Count 2.85 M/UL (4.20-5.40) L Hemoglobin 9.1 G/DL (12.0-16.0) L Hematocrit 28.3 % (37.0-47.0) L Mean Corpuscular Volume 99 FL (80-99) Mean Corpuscular Hemoglobin 32.0 PG (27.0-31.0) H Mean Corpuscular Hemoglobin Concent 32.2 G/DL (32.0-36.0) Red Cell Distribution Width 18.0 % (11.6-14.8) H Platelet Count 90 K/UL (150-450) L Mean Platelet Volume 9.3 FL (6.5-10.1) Neutrophils (%) (Auto) % (45.0-75.0) Lymphocytes (%) (Auto) % (20.0-45.0) Monocytes (%) (Auto) % (1.0-10.0) Eosinophils (%) (Auto) % (0.0-3.0) Basophils (%) (Auto) % (0.0-2.0) Sodium Level 146 MMOL/L (136-145) H Potassium Level 3.5 MMOL/L (3.5-5.1) Chloride Level 109 MMOL/L (98-107) H Carbon Dioxide Level 30 MMOL/L (21-32) Anion Gap 7 mmol/L (5-15) Blood Urea Nitrogen 22 mg/dL (7-18) H Creatinine 3.7 MG/DL (0.55-1.30) H Estimat Glomerular Filtration Rate mL/min (>60) Glucose Level 188 MG/DL (74-106) H Calcium Level 8.6 MG/DL (8.5-10.1) Total Bilirubin 2.9 MG/DL (0.2-1.0) H Direct Bilirubin 2.0 MG/DL (0.0-0.3) H Aspartate Amino Transf (AST/SGOT) 41 U/L (15-37) H Alanine Aminotransferase (ALT/SGPT) < 6 U/L (12-78) L Alkaline Phosphatase 193 U/L (46-116) H Pro-B-Type Natriuretic Peptide 9326 pg/mL (0-125) H Total Protein 6.1 G/DL (6.4-8.2) L Albumin 1.5 G/DL (3.4-5.0) L Globulin 4.6 g/dL Albumin/Globulin Ratio 0.3 (1.0-2.7) L DIONI TRIANA Feb 14, 2017 08:31
--- NOTE | 2017-02-14 09:10 | Infectious Diseases Prog Note ---
Assessment/Plan Assessment/Plan Assesment: Encephalopathy- possibly multifactorial- hepatic encephalopathy, infection- worsening now due to hypercapnea (transferred to ICU 01/21), on bipap> intubated Acute respiratory failure 2ry to hypercapnea, PNA; now ARDS - self-extubated, re -intubated 02/04] -CXR 02/09: diffuse bilateral interstitial and airspace disease -CXR 02/04: Pulmonary parenchymal disease, likely ARDS, overall stable Sepsis 2ry to PNA and Bacteremia, SP HCAP 2ry to ESBL. E.coli, s/p Rx -CXR 02/08: . Extensive bilateral mixed interstitial alveolar lung opacities again noted. -CXR 02/02: Diffuse extensive interstitial and alveolar pulmonary parenchymal disease is unchanged. -repeat sp cx 01/26: +4 MDR A.baumani (I Ceftazidime, R to carbapenem and aminoglycosides, Minocycline; S to Colistin, Polymyxin B) suspect Colonizer ( improving not on tx)-s/p INH Colistin Tx -Sp cx 01/22: +2 ESBK E.coli, +2 C. albicans (colonizer) -CrAg neg, cocci ab pending MRSA bacteremia- with repeat Bcx growing CoNS (?contaminant vs real). BCx cleared 01/26 SP Rx -01/16 04/23 BCx MRSA (S. Vanco JOSE A 1), repeat Bcx 01/19 Neg, 01/21 04/23 CoNS ( contaminant), 01/24 Bcx 04/23 CoNs, Bcx 01/26 Neg x4, 01/28 BCx neg -TTE 01/19(limited study): No aortic regurgitation.Trace mitral regurgitation.Mitral diastolic velocities suggest reduced left ventricular relaxation c/w diastolic dysfunction grade. Moderate tricuspid regurgitation. Leukocytosis, recurrent, ?aspiration event 02/04- now resolved -Bcx 02/05, Neg; Sp cx 02/06 C. albicans (colonizer) -01/26. pyuria improving (WBC 10-15); ucx C. albicans (colonizer) -01/22 u/a WBC 30-40, ucx yeast (colonizer) -Sp cx ESBL E.coli, diaz (colonizer) Elevated LFTs, improving -[facility] hep panel neg Probable MDR UTI, pyuria, s/p Rx -u/a 01/16 WBC too many to count,nit neg ,leuk est +3; UCx x3 grew >100K MDR A.baumani complex (S. tigecycline/Minocycline, Polymixin B/Colistin), >100K PsA (S. Cefepime, Zosyn; R Cipro/Levo); a prior isolated on a ucx from the same day isolated MDR PsA (I. Cefepime, R ceftzadime, Meropenem; S. Tygecicine, amikacin) -renal u/s: Nondiagnostic exam Metabolic acidosis, 2ry to renal failure- now improved after initiation of HD 01/28 RAMYA on CKD, started on HD 01/28 Cirrhosis Anemia & thrombocytopenia DM type 2 Morbid obesity DNR PLAN: -Continue to monitor off abx unless febrile, HD unstable -s/p 7d IV Vancomcyin 02/11 -s/p 18d prophylatic PO Vanco 02/09 -s/p 19d Ertapenem 02/09 -s/p 10d INH Colistin 02/07 for MDR ABC in sputum -02/03 s/p IV Vancomycin #15/14 -s/p 1 dose Amikacin / -s/p 7d Cefepime 10/7 -s/p 3d Amikacin 10/7 -s/p 7d Minocycline 10/7 -s/p 3d IV vanco 10/ -f/u cocci ab monitor CBC, temperatures monitor BMP monitor CXR vent support, trach eventually Discussed with RN. Poor px; critically ill Subjective Allergies: Coded Allergies: PENICILLINS (Unverified Allergy, Unknown, 03/22/15) Subjective afebrile now off abx bcx neg no leukocytosis . Objective Vital Signs Last 24 Hour Vital Signs Date Time Temp Pulse Resp B/P (MAP) Pulse Ox O2 Delivery O2 Flow Rate FiO2 02/14/17 08:00 50 02/14/17 07:51 104 22 40 02/14/17 07:00 106 20 94/37 98 Mechanical Ventilator 50 02/14/17 06:00 106 20 103/43 98 Mechanical Ventilator 50 02/14/17 05:36 121 22 40 02/14/17 05:00 103 20 97/37 98 Mechanical Ventilator 50 02/14/17 04:00 99.1 116 21 104/48 96 Mechanical Ventilator 50 02/14/17 04:00 114 02/14/17 04:00 50 10/28/17 03:28 112 20 40 02/14/17 03:00 111 19 112/51 97 Mechanical Ventilator 50 02/14/17 02:00 113 19 139/58 99 Mechanical Ventilator 50 02/14/17 01:09 101 27 40 02/14/17 01:00 101 20 148/47 100 Mechanical Ventilator 50 02/14/17 00:00 99.5 105 20 159/51 100 Mechanical Ventilator 50 02/14/17 00:00 89 02/13/17 23:00 101 24 106/39 100 Mechanical Ventilator 50 02/13/17 22:36 97 20 40 02/13/17 22:30 99 20 110/44 99 Mechanical Ventilator 50 02/13/17 22:00 96 20 97/38 98 Mechanical Ventilator 50 02/13/17 21:30 96 20 106/36 99 Mechanical Ventilator 50 02/13/17 21:16 92 20 40 02/13/17 21:00 95 20 96/39 100 Mechanical Ventilator 50 02/13/17 20:30 96 20 98/38 100 Mechanical Ventilator 50 02/13/17 20:00 96 20 100/43 99 Mechanical Ventilator 50 02/13/17 20:00 50 02/13/17 20:00 97 02/13/17 19:49 95 20 40 02/13/17 19:30 98 20 100/44 98 Mechanical Ventilator 50 02/13/17 19:00 99.5 98 20 85/42 98 Mechanical Ventilator 50 02/13/17 18:02 115 20 90/73 98 Mechanical Ventilator 50 02/13/17 17:50 123 18 40 02/13/17 17:45 99.5 02/13/17 17:00 118 20 85/62 99 Mechanical Ventilator 50 02/13/17 16:29 81/43 02/13/17 16:29 Mechanical Ventilator 15.0 40 02/13/17 16:00 91 02/13/17 16:00 50 02/13/17 16:00 99.0 115 20 65/43 99 Mechanical Ventilator 50 02/13/17 15:22 92 21 40 02/13/17 15:00 93 20 76/30 99 Mechanical Ventilator 50 02/13/17 14:00 103 20 85/30 99 Mechanical Ventilator 50 02/13/17 13:26 108 20 40 02/13/17 13:00 108 20 83/37 98 Mechanical Ventilator 50 02/13/17 12:00 50 02/13/17 12:00 111 21 93/35 98 Mechanical Ventilator 50 02/13/17 11:15 93/47 02/13/17 11:00 116 21 86/48 98 Mechanical Ventilator 50 02/13/17 10:45 118 20 40 02/13/17 10:30 Mechanical Ventilator 15.0 50 02/13/17 10:00 114 18 102/43 98 Mechanical Ventilator 50 Height (Feet): 5 Height (Inches): 5.00 Weight (Pounds): 257 Objective HEENT: No pale conjunctivae. No icterus.ETT in place NECK: No lymphadenopathy. CHEST: coarse breath sounds HEART: S1 and S2. ABDOMEN: Soft and obese. EXTREMITIES: No cyanosis. NEUROLOGIC: lethargic. Skin: no rashes reviewed Laboratory Tests Test 02/14/17 05:45 White Blood Count 10.2 K/UL (4.8-10.8) # Red Blood Count 2.85 M/UL (4.20-5.40) L Hemoglobin 9.1 G/DL (12.0-16.0) L Hematocrit 28.3 % (37.0-47.0) L Mean Corpuscular Volume 99 FL (80-99) Mean Corpuscular Hemoglobin 32.0 PG (27.0-31.0) H Mean Corpuscular Hemoglobin Concent 32.2 G/DL (32.0-36.0) Red Cell Distribution Width 18.0 % (11.6-14.8) H Platelet Count 90 K/UL (150-450) L Mean Platelet Volume 9.3 FL (6.5-10.1) Neutrophils (%) (Auto) % (45.0-75.0) Lymphocytes (%) (Auto) % (20.0-45.0) Monocytes (%) (Auto) % (1.0-10.0) Eosinophils (%) (Auto) % (0.0-3.0) Basophils (%) (Auto) % (0.0-2.0) Sodium Level 146 MMOL/L (136-145) H Potassium Level 3.5 MMOL/L (3.5-5.1) Chloride Level 109 MMOL/L (98-107) H Carbon Dioxide Level 30 MMOL/L (21-32) Anion Gap 7 mmol/L (5-15) Blood Urea Nitrogen 22 mg/dL (7-18) H Creatinine 3.7 MG/DL (0.55-1.30) H Estimat Glomerular Filtration Rate mL/min (>60) Glucose Level 188 MG/DL (74-106) H Calcium Level 8.6 MG/DL (8.5-10.1) Total Bilirubin 2.9 MG/DL (0.2-1.0) H Direct Bilirubin 2.0 MG/DL (0.0-0.3) H Aspartate Amino Transf (AST/SGOT) 41 U/L (15-37) H Alanine Aminotransferase (ALT/SGPT) < 6 U/L (12-78) L Alkaline Phosphatase 193 U/L (46-116) H Pro-B-Type Natriuretic Peptide 9326 pg/mL (0-125) H Total Protein 6.1 G/DL (6.4-8.2) L Albumin 1.5 G/DL (3.4-5.0) L Globulin 4.6 g/dL Albumin/Globulin Ratio 0.3 (1.0-2.7) L Current Medications Medications (Trade) Dose Ordered Sig/Pavel Route PRN Reason Start Time Stop Time Status Last Admin Dose Admin Acetaminophen (Tylenol) 650 mg Q4H PRN ORAL T>100.5 01/21/17 14:30 02/15/17 14:29 02/05/17 07:41 Chlorhexidine Gluconate (Dianne-Hex 2%) 1 applic DAILY@2000 TOPIC 01/25/17 20:00 02/24/17 19:59 02/13/17 19:43 Clotrimazole (Lotrimin) 1 applic EVERY 12 HOURS TOPIC 01/21/17 21:00 02/18/17 13:59 02/13/17 20:35 Dextrose (Dextrose 50%) STAT PRN IV Hypoglycemia 02/06/17 10:45 03/08/17 10:44 Dopamine HCl/ Dextrose 250 ml @ 0 mls/hr Q24H IV 01/25/17 11:15 02/24/17 11:14 02/13/17 16:29 Hydromorphone HCl (Dilaudid) 0.5 mg Q4H PRN IVP Pain (5-10) 02/09/17 18:00 02/15/17 10:44 02/14/17 04:06 Insulin Aspart (NovoLOG) EVERY 4 HOURS SUBQ 02/06/17 12:00 03/08/17 11:59 02/14/17 04:59 Lorazepam (Ativan 2mg/ml 1ml) 2 mg Q2HR PRN IV For Anxiety 02/14/17 09:00 02/21/17 07:59 Metoclopramide HCl (Reglan) 5 mg Q8H PRN IVP Nausea & Vomiting 01/29/17 11:30 02/28/17 11:29 01/31/17 11:46 Midodrine (Pro-Amatine) 10 mg Q8HR NG 02/03/17 14:00 03/05/17 13:59 02/13/17 22:00 Nitroglycerin (Ntg) 0.4 mg Q5MIN X 3 DOSES PRN SL Prn Chest Pain 01/21/17 14:30 02/15/17 14:29 Nystatin (Nystop Powder) 1 applic THREE TIMES A DAY TOPIC 01/22/17 13:00 02/21/17 12:59 02/13/17 17:14 Ranitidine HCl (Zantac) 150 mg DAILY NG 02/03/17 18:00 03/05/17 17:59 02/13/17 09:28 Rifaximin (Xifaxan) 550 mg EVERY 12 HOURS ORAL 01/29/17 12:00 03/07/17 11:59 02/13/17 20:35 Nereyda Monroe M.D. Feb 14, 2017 09:10
--- NOTE | 2017-02-14 11:29 | Diagnostic Imaging Report ---
Indication: DYSPNEA Technique: One view of the chest Comparison: 02/13/2017 Findings: Interim retraction of endotracheal tube, tip now above the thoracic inlet and just barely below the vocal cords diffuse bilateral parenchymal disease persists, unchanged. Right jugular temporary dialysis catheter remains Impression: Over one day, interim retraction of endotracheal tube, now too high. Recommend advancement. This was discussed with ICU nurse at the time of interpretation
--- NOTE | 2017-02-14 11:33 | General Progress Note ---
Assessment/Plan Status: unchanged Assessment/Plan Acute on chronic renal failure- multifactorial CHF DM HTN Sepsis Now: Acute respiratory failure- Intubated - Altered level of consciousness - ESBL (extended spectrum beta-lactamase) producing bacteria infection - Cardiomegaly - DM (diabetes mellitus) - HTN (hypertension) - UTI (urinary tract infection) - Anemia - High Cholestrol - COPD - YELENA - Fatty liver Plan: trach not done yet- due 02/16 HD as needed last done 02/13 K & Phos supplement as needed On midodrine Transfuse as needed, Optimize cardiac and pulmonary status 2D echo results noted avoid nephrotoxics monitor renal parameters and lytes Urine studies per orders poor prognosis Subjective ROS Limited/Unobtainable: Yes Allergies: Coded Allergies: PENICILLINS (Unverified Allergy, Unknown, 03/22/15) Objective Last 24 Hour Vital Signs Date Time Temp Pulse Resp B/P (MAP) Pulse Ox O2 Delivery O2 Flow Rate FiO2 02/14/17 11:06 104 32 40 02/14/17 09:20 129 32 40 02/14/17 08:00 110 02/14/17 08:00 50 02/14/17 07:51 104 22 40 02/14/17 07:00 106 20 94/37 98 Mechanical Ventilator 50 02/14/17 06:00 106 20 103/43 98 Mechanical Ventilator 50 02/14/17 05:36 121 22 40 02/14/17 05:00 103 20 97/37 98 Mechanical Ventilator 50 02/14/17 04:00 99.1 116 21 104/48 96 Mechanical Ventilator 50 02/14/17 04:00 114 02/14/17 04:00 50 02/14/17 03:28 112 20 40 02/14/17 03:00 111 19 112/51 97 Mechanical Ventilator 50 02/14/17 02:00 113 19 139/58 99 Mechanical Ventilator 50 02/14/17 01:09 101 27 40 02/14/17 01:00 101 20 148/47 100 Mechanical Ventilator 50 02/14/17 00:00 99.5 105 20 159/51 100 Mechanical Ventilator 50 02/14/17 00:00 89 02/13/17 23:00 101 24 106/39 100 Mechanical Ventilator 50 02/13/17 22:36 97 20 40 02/13/17 22:30 99 20 110/44 99 Mechanical Ventilator 50 02/13/17 22:00 96 20 97/38 98 Mechanical Ventilator 50 02/13/17 21:30 96 20 106/36 99 Mechanical Ventilator 50 02/13/17 21:16 92 20 40 02/13/17 21:00 95 20 96/39 100 Mechanical Ventilator 50 02/13/17 20:30 96 20 98/38 100 Mechanical Ventilator 50 02/13/17 20:00 96 20 100/43 99 Mechanical Ventilator 50 02/13/17 20:00 50 02/13/17 20:00 97 02/13/17 19:49 95 20 40 02/13/17 19:30 98 20 100/44 98 Mechanical Ventilator 50 02/13/17 19:00 99.5 98 20 85/42 98 Mechanical Ventilator 50 02/13/17 18:02 115 20 90/73 98 Mechanical Ventilator 50 02/13/17 17:50 123 18 40 02/13/17 17:45 99.5 02/13/17 17:00 118 20 85/62 99 Mechanical Ventilator 50 02/13/17 16:29 81/43 02/13/17 16:29 Mechanical Ventilator 15.0 40 02/13/17 16:00 91 02/13/17 16:00 50 02/13/17 16:00 99.0 115 20 65/43 99 Mechanical Ventilator 50 02/13/17 15:22 92 21 40 02/13/17 15:00 93 20 76/30 99 Mechanical Ventilator 50 02/13/17 14:00 103 20 85/30 99 Mechanical Ventilator 50 02/13/17 13:26 108 20 40 02/13/17 13:00 108 20 83/37 98 Mechanical Ventilator 50 02/13/17 12:00 50 02/13/17 12:00 111 21 93/35 98 Mechanical Ventilator 50 Intake and Output 02/14/17 02/15/17 19:00 07:00 Intake Total 144.5 ml Balance 144.5 ml IV Total 4.5 ml Tube Feeding 140 ml Laboratory Tests 02/14/17 05:45: White Blood Count 10.2#, Red Blood Count 2.85L, Hemoglobin 9.1L, Hematocrit 28.3L, Mean Corpuscular Volume 99, Mean Corpuscular Hemoglobin 32.0H, Mean Corpuscular Hemoglobin Concent 32.2, Red Cell Distribution Width 18.0H, Platelet Count 90L, Mean Platelet Volume 9.3, Neutrophils (%) (Auto) , Lymphocytes (%) (Auto) , Monocytes (%) (Auto) , Eosinophils (%) (Auto) , Basophils (%) (Auto) , Sodium Level 146H, Potassium Level 3.5, Chloride Level 109H, Carbon Dioxide Level 30, Anion Gap 7, Blood Urea Nitrogen 22H, Creatinine 3.7H, Estimat Glomerular Filtration Rate , Glucose Level 188H, Calcium Level 8.6 , Total Bilirubin 2.9H, Direct Bilirubin 2.0H, Aspartate Amino Transf (AST/SGOT ) 41H, Alanine Aminotransferase (ALT/SGPT) < 6L, Alkaline Phosphatase 193H, Pro- B-Type Natriuretic Peptide 9326H, Total Protein 6.1L, Albumin 1.5L, Globulin 4.6 , Albumin/Globulin Ratio 0.3L Height (Feet): 5 Height (Inches): 5.00 Weight (Pounds): 257 General Appearance: no apparent distress Objective no other change ANDERS MOLINA Feb 14, 2017 11:33
[2017-02-14] MEDS: Nystatin Powder 100,000 units/gm 15gm TOPIC SCH ×3 (13:23→17:48)
[2017-02-14] MEDS: LORazepam Inj 2mg/ml 1ml IV PRN ×3 (14:24→22:15)
--- NOTE | 2017-02-14 14:33 | Cardiac Electrophysiology PN ---
Assessment/Plan Assessment/Plan 1. CHF due to diastolic dysfunction with EF 60 %. On dialysis. 2. S/P Shock, resolved.Off pressors 3. Bradycardia resolved, off dopamine. On midodrine 5 tid 4. Vent dependent respiratory failure. Self extubated on 02/04 and was reintubated an hour later. Tracheostomy rescheduled for Thursday 5. Hyperlipidemia. 6. Cirrhosis 7. Anemia with hemoglobin of 8. 8. Hypernatremia Na still 150 9. DNR 10. ESRD on HD 11. DM 12. Dysphagia, S/P PEG 02/12/17 DW RN Subjective Subjective In ICU on Vent. Had bedside PEG . Tracheostomy postponed to Thursday . Objective Last 24 Hour Vital Signs Date Time Temp Pulse Resp B/P (MAP) Pulse Ox O2 Delivery O2 Flow Rate FiO2 02/14/17 13:17 96 20 40 02/14/17 11:06 104 32 40 02/14/17 11:00 104 23 108/39 96 Mechanical Ventilator 40 02/14/17 10:07 99.2 02/14/17 10:00 113 22 95/40 94 Mechanical Ventilator 40 02/14/17 09:20 129 32 40 02/14/17 09:00 127 26 104/35 93 Mechanical Ventilator 40 02/14/17 08:00 110 02/14/17 08:00 50 02/14/17 08:00 99.2 127 23 111/48 91 Mechanical Ventilator 50 02/14/17 07:51 104 22 40 02/14/17 07:00 106 20 94/37 98 Mechanical Ventilator 50 02/14/17 06:00 106 20 103/43 98 Mechanical Ventilator 50 02/14/17 05:36 121 22 40 02/14/17 05:00 103 20 97/37 98 Mechanical Ventilator 50 02/14/17 04:00 99.1 116 21 104/48 96 Mechanical Ventilator 50 02/14/17 04:00 114 02/14/17 04:00 50 02/14/17 03:28 112 20 40 02/14/17 03:00 111 19 112/51 97 Mechanical Ventilator 50 02/14/17 02:00 113 19 139/58 99 Mechanical Ventilator 50 02/14/17 01:09 101 27 40 02/14/17 01:00 101 20 148/47 100 Mechanical Ventilator 50 02/14/17 00:00 99.5 105 20 159/51 100 Mechanical Ventilator 50 02/14/17 00:00 89 02/13/17 23:00 101 24 106/39 100 Mechanical Ventilator 50 02/13/17 22:36 97 20 40 02/13/17 22:30 99 20 110/44 99 Mechanical Ventilator 50 02/13/17 22:00 96 20 97/38 98 Mechanical Ventilator 50 02/13/17 21:30 96 20 106/36 99 Mechanical Ventilator 50 02/13/17 21:16 92 20 40 02/13/17 21:00 95 20 96/39 100 Mechanical Ventilator 50 02/13/17 20:30 96 20 98/38 100 Mechanical Ventilator 50 02/13/17 20:00 96 20 100/43 99 Mechanical Ventilator 50 02/13/17 20:00 50 02/13/17 20:00 97 02/13/17 19:49 95 20 40 02/13/17 19:30 98 20 100/44 98 Mechanical Ventilator 50 02/13/17 19:00 99.5 98 20 85/42 98 Mechanical Ventilator 50 02/13/17 18:02 115 20 90/73 98 Mechanical Ventilator 50 02/13/17 17:50 123 18 40 02/13/17 17:00 118 20 85/62 99 Mechanical Ventilator 50 02/13/17 16:29 81/43 02/13/17 16:29 Mechanical Ventilator 15.0 40 02/13/17 16:00 91 02/13/17 16:00 50 02/13/17 16:00 99.0 115 20 65/43 99 Mechanical Ventilator 50 02/13/17 15:22 92 21 40 02/13/17 15:00 93 20 76/30 99 Mechanical Ventilator 50 Intake and Output 02/14/17 02/15/17 19:00 07:00 Intake Total 144.5 ml Balance 144.5 ml IV Total 4.5 ml Tube Feeding 140 ml Laboratory Tests Test 02/14/17 05:45 White Blood Count 10.2 K/UL (4.8-10.8) # Red Blood Count 2.85 M/UL (4.20-5.40) L Hemoglobin 9.1 G/DL (12.0-16.0) L Hematocrit 28.3 % (37.0-47.0) L Mean Corpuscular Volume 99 FL (80-99) Mean Corpuscular Hemoglobin 32.0 PG (27.0-31.0) H Mean Corpuscular Hemoglobin Concent 32.2 G/DL (32.0-36.0) Red Cell Distribution Width 18.0 % (11.6-14.8) H Platelet Count 90 K/UL (150-450) L Mean Platelet Volume 9.3 FL (6.5-10.1) Neutrophils (%) (Auto) % (45.0-75.0) Lymphocytes (%) (Auto) % (20.0-45.0) Monocytes (%) (Auto) % (1.0-10.0) Eosinophils (%) (Auto) % (0.0-3.0) Basophils (%) (Auto) % (0.0-2.0) Sodium Level 146 MMOL/L (136-145) H Potassium Level 3.5 MMOL/L (3.5-5.1) Chloride Level 109 MMOL/L (98-107) H Carbon Dioxide Level 30 MMOL/L (21-32) Anion Gap 7 mmol/L (5-15) Blood Urea Nitrogen 22 mg/dL (7-18) H Creatinine 3.7 MG/DL (0.55-1.30) H Estimat Glomerular Filtration Rate mL/min (>60) Glucose Level 188 MG/DL (74-106) H Calcium Level 8.6 MG/DL (8.5-10.1) Total Bilirubin 2.9 MG/DL (0.2-1.0) H Direct Bilirubin 2.0 MG/DL (0.0-0.3) H Aspartate Amino Transf (AST/SGOT) 41 U/L (15-37) H Alanine Aminotransferase (ALT/SGPT) < 6 U/L (12-78) L Alkaline Phosphatase 193 U/L (46-116) H Pro-B-Type Natriuretic Peptide 9326 pg/mL (0-125) H Total Protein 6.1 G/DL (6.4-8.2) L Albumin 1.5 G/DL (3.4-5.0) L Globulin 4.6 g/dL Albumin/Globulin Ratio 0.3 (1.0-2.7) L Objective HEAD AND NECK: No JVD.Orally intubated.Right IJ Mahurkar Catheter in place LUNGS: Coarse rhonchi CARDIOVASCULAR: Regular S1 and S2 with no gallop or murmur. ABDOMEN: Soft and nontender and obese.PEG in place EXTREMITIES: 1+ pitting edema. DEAN SHAW Feb 14, 2017 14:32
--- NOTE | 2017-02-14 14:51 | Internal Med Progress Note ---
Subjective Date of Service: Feb 14, 2017 Physician Name Katharina Pond Attending Physician Rl Tee MD Current Medications Medications (Trade) Dose Ordered Sig/Pavel Route PRN Reason Start Time Stop Time Status Last Admin Dose Admin Acetaminophen (Tylenol) 650 mg Q4H PRN ORAL T>100.5 01/21/17 14:30 02/15/17 14:29 02/05/17 07:41 Chlorhexidine Gluconate (Dianne-Hex 2%) 1 applic DAILY@1999 TOPIC 01/25/17 20:00 02/24/17 19:59 02/13/17 19:43 Clotrimazole (Lotrimin) 1 applic EVERY 12 HOURS TOPIC 01/21/17 21:00 02/18/17 13:59 02/14/17 09:38 Dextrose (Dextrose 50%) STAT PRN IV Hypoglycemia 02/06/17 10:45 03/08/17 10:44 Dopamine HCl/ Dextrose 250 ml @ 0 mls/hr Q24H IV 01/25/17 11:15 02/24/17 11:14 02/13/17 16:29 Hydromorphone HCl (Dilaudid) 0.5 mg Q4H PRN IVP Pain (5-10) 02/09/17 18:00 02/15/17 10:44 02/14/17 09:37 Insulin Aspart (NovoLOG) EVERY 4 HOURS SUBQ 02/06/17 12:00 03/08/17 11:59 02/14/17 13:27 Lorazepam (Ativan 2mg/ml 1ml) 2 mg Q2HR PRN IV For Anxiety 02/14/17 09:00 02/21/17 07:59 02/14/17 14:24 Metoclopramide HCl (Reglan) 5 mg Q8H PRN IVP Nausea & Vomiting 01/29/17 11:30 02/28/17 11:29 01/31/17 11:46 Midodrine (Pro-Amatine) 10 mg Q8HR NG 02/03/17 14:00 03/05/17 13:59 02/14/17 09:37 Nitroglycerin (Ntg) 0.4 mg Q5MIN X 3 DOSES PRN SL Prn Chest Pain 01/21/17 14:30 02/15/17 14:29 Nystatin (Nystop Powder) 1 applic THREE TIMES A DAY TOPIC 01/22/17 13:00 02/21/17 12:59 02/14/17 13:28 Ranitidine HCl (Zantac) 150 mg DAILY NG 02/03/17 18:00 03/05/17 17:59 02/14/17 09:37 Rifaximin (Xifaxan) 550 mg EVERY 12 HOURS ORAL 01/29/17 12:00 03/07/17 11:59 02/14/17 09:37 Allergies: Coded Allergies: PENICILLINS (Unverified Allergy, Unknown, 03/22/15) ROS Limited/Unobtainable: Yes Subjective 76 YO F admitted with altered mental status. Intubated and sedated. ICU . Cover for Int Med-Dr Tee. S/P PEG 02/12/17. Await tracheostomy on Mon Objective Last Vital Signs Date Time Temp Pulse Resp B/P (MAP) Pulse Ox O2 Delivery O2 Flow Rate FiO2 02/14/17 13:17 96 20 40 02/14/17 11:00 108/39 96 Mechanical Ventilator 02/14/17 10:07 99.2 02/13/17 16:29 15.0 Laboratory Tests Test 02/14/17 05:45 White Blood Count 10.2 K/UL (4.8-10.8) # Red Blood Count 2.85 M/UL (4.20-5.40) L Hemoglobin 9.1 G/DL (12.0-16.0) L Hematocrit 28.3 % (37.0-47.0) L Mean Corpuscular Volume 99 FL (80-99) Mean Corpuscular Hemoglobin 32.0 PG (27.0-31.0) H Mean Corpuscular Hemoglobin Concent 32.2 G/DL (32.0-36.0) Red Cell Distribution Width 18.0 % (11.6-14.8) H Platelet Count 90 K/UL (150-450) L Mean Platelet Volume 9.3 FL (6.5-10.1) Neutrophils (%) (Auto) % (45.0-75.0) Lymphocytes (%) (Auto) % (20.0-45.0) Monocytes (%) (Auto) % (1.0-10.0) Eosinophils (%) (Auto) % (0.0-3.0) Basophils (%) (Auto) % (0.0-2.0) Sodium Level 146 MMOL/L (136-145) H Potassium Level 3.5 MMOL/L (3.5-5.1) Chloride Level 109 MMOL/L (98-107) H Carbon Dioxide Level 30 MMOL/L (21-32) Anion Gap 7 mmol/L (5-15) Blood Urea Nitrogen 22 mg/dL (7-18) H Creatinine 3.7 MG/DL (0.55-1.30) H Estimat Glomerular Filtration Rate mL/min (>60) Glucose Level 188 MG/DL (74-106) H Calcium Level 8.6 MG/DL (8.5-10.1) Total Bilirubin 2.9 MG/DL (0.2-1.0) H Direct Bilirubin 2.0 MG/DL (0.0-0.3) H Aspartate Amino Transf (AST/SGOT) 41 U/L (15-37) H Alanine Aminotransferase (ALT/SGPT) < 6 U/L (12-78) L Alkaline Phosphatase 193 U/L (46-116) H Pro-B-Type Natriuretic Peptide 9326 pg/mL (0-125) H Total Protein 6.1 G/DL (6.4-8.2) L Albumin 1.5 G/DL (3.4-5.0) L Globulin 4.6 g/dL Albumin/Globulin Ratio 0.3 (1.0-2.7) L Intake and Output 02/14/17 02/15/17 19:00 07:00 Intake Total 144.5 ml Balance 144.5 ml IV Total 4.5 ml Tube Feeding 140 ml Objective General Appearance: WD/WN, no apparent distress, moderate distress, obese EENT: PERRL/EOMI, normal ENT inspection Neck: non-tender, normal alignment, supple, normal inspection Cardiovascular: normal peripheral pulses, normal rate, regular rhythm, no gallop/murmur, no JVD Respiratory/Chest: Mechanical vent; chest wall non-tender, lungs with coarse upper air sounds, Bilat wheezes and rales, respiratory distress Abdomen: G-Tube; non tender, no organomegaly, no mass Neurologic: housekeeping associate 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 Baumanii. See ID note. Continur ertaoenem and vanco per ID (2) CHF (congestive heart failure) Assessment & Plan: LVEF 60-65%. see cardiology note. (3) DM (diabetes mellitus) Assessment & Plan: Continue novolog sliding scale (4) Hypercholesteremia (5) HTN (hypertension) Assessment & Plan: Currently hypotensive. (6) Uncontrolled diabetes mellitus (7) Cirrhosis Assessment & Plan: see GI note. (8) Anemia Assessment & Plan: S/P transfusion 2 units PRBC (9) Altered mental status Assessment & Plan: Worsening. ICU status (10) Renal failure Assessment & Plan: Next hemodialysis 02/13/17. See nephrology note. (11) Respiratory failure Assessment & Plan: Due to CHF. Cont mech vent per pulmonary-await tracheostomy 02/16/17. Continue antibiotic per ID (12) Bradycardia Assessment & Plan: see cardiology note. (13) Hypotension Assessment & Plan: Continue dopamine Status: not improved Assessment/Plan Await tracheostomy 02/16/17. KATHARINA POND Feb 14, 2017 14:51
[2017-02-14] MEDS ORDERED: Tubing IV Secondary IV ONE (16:31)
[2017-02-14] MEDS: Dyna-Hex 2% Top Sol 2oz TOPIC SCH (19:51)
[2017-02-15] VITALS (25 sets, daily range): BP systolic 84–158; BP diastolic 30–72
[2017-02-15] MEDS: LORazepam Inj 2mg/ml 1ml IV PRN ×5 (00:56→19:28)
[2017-02-15] MEDS: NovoLOG Insulin Flexpen SUBQ SCH ×6 (00:59→21:13)
[2017-02-15 05:30] LABS: INR 1.5 (0.9-1.1)
[2017-02-15 05:44] LABS: HEMATOCRIT 28.4 % (37.0-47.0); HEMOGLOBIN 9.1 G/DL (12.0-16.0); MEAN CORPUSCULAR VOLUME 98 FL (80-99); PLATELET COUNT 80 K/UL (150-450); RED BLOOD COUNT 2.89 M/UL (4.20-5.40); RED CELL DISTRIBUTION WIDTH 17.5 % (11.6-14.8); WHITE BLOOD COUNT 7.2 K/UL (4.8-10.8)
[2017-02-15] MEDS: Midodrine 10mg tab NG SCH ×3 (05:53→21:12)
[2017-02-15 06:19] LABS: ALANINE AMINOTRANSFERASE < 6 U/L (12-78); ALBUMIN 1.4 G/DL (3.4-5.0); ALBUMIN/GLOBULIN RATIO 0.3 (1.0-2.7); ALKALINE PHOSPHATASE 185 U/L (46-116); ANION GAP 7 mmol/L (5-15); ASPARTATE AMINO TRANSFERASE 41 U/L (15-37); BILIRUBIN,TOTAL 2.2 MG/DL (0.2-1.0); BLOOD UREA NITROGEN 29 mg/dL (7-18); CALCIUM 9.3 MG/DL (8.5-10.1); CARBON DIOXIDE 31 MMOL/L (21-32); CHLORIDE 109 MMOL/L (98-107); CREATININE 4.5 MG/DL (0.55-1.30); PHOSPHORUS 2.5 MG/DL (2.5-4.9); POTASSIUM 2.9 MMOL/L (3.5-5.1); SODIUM 147 MMOL/L (136-145)
--- NOTE | 2017-02-15 07:16 | General Progress Note ---
Assessment/Plan Assessment/Plan ASSESSMENT AND RECOMMENDATIONS 1.Thrombocytopenia 2/2 sepsis --> now off abx, continue to monitor --> give plts if below 10k or if below 20k and febrile --> ID following 2. Coagulopathy secondary to underlying liver cirrhosis ---> s/p Vitamin K 10 mg sq x1 and 2 units FFP --> slowly improving 3. Thrombocytopenia secondary to underlying splenomegaly. 4. Anemia 2/2 chronic disease --> Watch HH, transfuse if below 8 5. Leukocytosis secondary to underlying infection. On abx per id service --> wbc count has now normalized 6. Sepsis 2/2 UTI 7. Altered mental status 8. RAMYA on CKD,on hemodialysis Subjective Date patient seen: Feb 14, 2017 Allergies: Coded Allergies: PENICILLINS (Unverified Allergy, Unknown, 03/22/15) Subjective NAD Objective Last 24 Hour Vital Signs Date Time Temp Pulse Resp B/P (MAP) Pulse Ox O2 Delivery O2 Flow Rate FiO2 02/15/17 07:00 94 20 118/42 98 Mechanical Ventilator 40 02/15/17 06:43 96 20 40 02/15/17 06:00 103 20 133/48 94 Mechanical Ventilator 40 02/15/17 05:15 90 20 40 02/15/17 05:00 89 16 133/45 98 Mechanical Ventilator 40 02/15/17 04:00 40 02/15/17 04:00 65 02/15/17 04:00 98.5 63 20 100/34 98 Mechanical Ventilator 40 02/15/17 03:00 86 18 127/51 99 Mechanical Ventilator 40 02/15/17 02:55 82 20 40 02/15/17 02:00 69 20 107/47 99 Mechanical Ventilator 40 02/15/17 01:15 81 20 40 02/15/17 01:00 81 18 119/49 100 Mechanical Ventilator 40 02/15/17 00:00 40 02/15/17 00:00 98.5 72 19 104/40 99 Mechanical Ventilator 40 02/15/17 00:00 71 02/14/17 23:00 78 19 91/37 99 Mechanical Ventilator 40 02/14/17 22:50 84 20 40 02/14/17 22:00 86 23 97/38 99 Mechanical Ventilator 40 02/14/17 21:06 77 20 40 02/14/17 21:00 83 20 118/59 98 Mechanical Ventilator 40 02/14/17 20:00 98.5 73 18 104/42 99 Mechanical Ventilator 40 02/14/17 20:00 69 02/14/17 20:00 40 02/14/17 19:00 68 20 114/45 98 Mechanical Ventilator 40 02/14/17 18:57 76 20 40 02/14/17 18:00 81 20 123/52 97 Mechanical Ventilator 40 02/14/17 17:32 98 20 40 02/14/17 17:00 81 20 144/44 97 Mechanical Ventilator 40 02/14/17 16:00 98.3 80 23 102/41 98 Mechanical Ventilator 40 02/14/17 16:00 50 02/14/17 16:00 77 02/14/17 15:26 76 20 40 02/14/17 15:00 81 20 86/38 97 Mechanical Ventilator 40 02/14/17 14:00 105 20 102/43 94 Mechanical Ventilator 40 02/14/17 13:17 96 20 40 02/14/17 13:00 96 20 93/43 97 Mechanical Ventilator 40 02/14/17 12:00 81 02/14/17 12:00 50 02/14/17 12:00 98.8 94 19 87/40 95 Mechanical Ventilator 40 02/14/17 11:06 104 32 40 02/14/17 11:00 104 23 108/39 96 Mechanical Ventilator 40 02/14/17 10:07 99.2 02/14/17 10:00 113 22 95/40 94 Mechanical Ventilator 40 02/14/17 09:20 129 32 40 02/14/17 09:00 127 26 104/35 93 Mechanical Ventilator 40 02/14/17 08:00 110 02/14/17 08:00 50 02/14/17 08:00 99.2 127 23 111/48 91 Mechanical Ventilator 50 02/14/17 07:51 104 22 40 Laboratory Tests 02/15/17 04:00: White Blood Count 7.2, Red Blood Count 2.89L, Hemoglobin 9.1L, Hematocrit 28.4L , Mean Corpuscular Volume 98, Mean Corpuscular Hemoglobin 31.4H, Mean Corpuscular Hemoglobin Concent 31.9L, Red Cell Distribution Width 17.5H, Platelet Count 80L, Mean Platelet Volume 8.4, Neutrophils (%) (Auto) , Lymphocytes (%) (Auto) , Monocytes (%) (Auto) , Eosinophils (%) (Auto) , Basophils (%) (Auto) , Prothrombin Time 16.1H, Prothromb Time International Ratio 1.5H, Activated Partial Thromboplast Time 36H, Sodium Level 147H, Potassium Level 2.9L, Chloride Level 109H, Carbon Dioxide Level 31, Anion Gap 7 , Blood Urea Nitrogen 29H, Creatinine 4.5H, Estimat Glomerular Filtration Rate , Glucose Level 160H, Calcium Level 9.3, Phosphorus Level 2.5, Magnesium Level 1.8, Total Bilirubin 2.2H, Direct Bilirubin [Pending], Aspartate Amino Transf ( AST/SGOT) 41H, Alanine Aminotransferase (ALT/SGPT) < 6L, Alkaline Phosphatase 185H, Total Protein 6.0L, Albumin 1.4L, Globulin 4.6, Albumin/Globulin Ratio 0.3L Height (Feet): 5 Height (Inches): 5.00 Weight (Pounds): 257 General Appearance: no apparent distress EENT: normal ENT inspection Neck: normal inspection Respiratory/Chest: normal breath sounds Skin: normal pigmentation, warm/dry Chriss Pat Feb 15, 2017 07:16
[2017-02-15 07:21] LABS: BILIRUBIN,DIRECT 1.6 MG/DL (0.0-0.3)
--- NOTE | 2017-02-15 08:48 | Diagnostic Imaging Report ---
Clinical history: As in header. Technique: Portable AP chest radiograph was obtained. Comparison: 02/14/17 at 9:27 AM Findings: The endotracheal tube tip is in the upper trachea, 10 cm above the tristan. Recommend advancing the tube by 5-6 cm. There is otherwise no significant interval change in the interval, allowing for differences in technique and positioning. Impression: 1. High riding endotracheal tube. Advancing the tube by 5-6 cm is recommended. 2. Right IJ central venous catheter is in the appropriate position. 3. Cardiomegaly with moderate to severe pulmonary edema/ARDS or multifocal pneumonia with trace effusions. 4. Status post L1 vertebra augmentation.
--- NOTE | 2017-02-15 08:50 | Pulmonolgy Critical Care Note ---
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 Respiratory: monitor respiratory rate, adjust FIO2, CXR Cardiac: continue pressors, continue to monitor HR/BP, other - NS bolus 500 cc/ hour Renal: F/U I&O, keep IV fluid, check electrolytes Infectious Disease: check cultures Gastrointestinal: continue feedings/current rate Endocrine: monitor blood sugar, check HgA1C, start insulin drip, continue sliding scale insulin Hematologic: transfuse if hgb<8.5 Neurologic: PRN Morphine, keep patient comfortable Time Spent (Minutes): 40 Notes Reviewed: cardio, renal Discussed with: nurses, consultants, 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 - Objective Last 24 Hour Vital Signs Date Time Temp Pulse Resp B/P (MAP) Pulse Ox O2 Delivery O2 Flow Rate FiO2 02/15/17 08:00 85 02/15/17 08:00 40 02/15/17 08:00 98.6 85 18 84/33 98 Mechanical Ventilator 40 02/15/17 07:00 94 20 118/42 98 Mechanical Ventilator 40 02/15/17 06:43 96 20 40 02/15/17 06:00 103 20 133/48 94 Mechanical Ventilator 40 02/15/17 05:15 90 20 40 02/15/17 05:00 89 16 133/45 98 Mechanical Ventilator 40 02/15/17 04:00 40 02/15/17 04:00 65 02/15/17 04:00 98.5 63 20 100/34 98 Mechanical Ventilator 40 02/15/17 03:00 86 18 127/51 99 Mechanical Ventilator 40 02/15/17 02:55 82 20 40 02/15/17 02:00 69 20 107/47 99 Mechanical Ventilator 40 02/15/17 01:15 81 20 40 02/15/17 01:00 81 18 119/49 100 Mechanical Ventilator 40 02/15/17 00:00 40 02/15/17 00:00 98.5 72 19 104/40 99 Mechanical Ventilator 40 02/15/17 00:00 71 02/14/17 23:00 78 19 91/37 99 Mechanical Ventilator 40 02/14/17 22:50 84 20 40 02/14/17 22:00 86 23 97/38 99 Mechanical Ventilator 40 02/14/17 21:06 77 20 40 02/14/17 21:00 83 20 118/59 98 Mechanical Ventilator 40 02/14/17 20:00 98.5 73 18 104/42 99 Mechanical Ventilator 40 02/14/17 20:00 69 02/14/17 20:00 40 02/14/17 19:00 68 20 114/45 98 Mechanical Ventilator 40 02/14/17 18:57 76 20 40 02/14/17 18:00 81 20 123/52 97 Mechanical Ventilator 40 02/14/17 17:32 98 20 40 02/14/17 17:00 81 20 144/44 97 Mechanical Ventilator 40 02/14/17 16:00 98.3 80 23 102/41 98 Mechanical Ventilator 40 02/14/17 16:00 50 02/14/17 16:00 77 02/14/17 15:26 76 20 40 02/14/17 15:00 81 20 86/38 97 Mechanical Ventilator 40 02/14/17 14:00 105 20 102/43 94 Mechanical Ventilator 40 02/14/17 13:17 96 20 40 02/14/17 13:00 96 20 93/43 97 Mechanical Ventilator 40 02/14/17 12:00 81 02/14/17 12:00 50 02/14/17 12:00 98.8 94 19 87/40 95 Mechanical Ventilator 40 02/14/17 11:06 104 32 40 02/14/17 11:00 104 23 108/39 96 Mechanical Ventilator 40 02/14/17 10:07 99.2 02/14/17 10:00 113 22 95/40 94 Mechanical Ventilator 40 02/14/17 09:20 129 32 40 02/14/17 09:00 127 26 104/35 93 Mechanical Ventilator 40 Status: awake Condition: critical HEENT: atraumatic Neck: full ROM Lungs: chest wall tender Heart: HR/BP unstable Abdomen: soft, non-tender Extremities: edema Decubiti: stage Accucheck: 163 Critical Care - Subjective ROS Limited/Unobtainable: No Interval Events: Blood pressure slightly decreasing Condition: critical EKG Rhythm: Sinus Rhythm FI02: 40 Vent Support Breath Rate: 20 Vent Support Mode: AC Vent Tidal Volume: 650 Sputum Amount: Moderate PEEP: 0.0 PIP: 42 Tube Feeding Amount: 35 I&O: Intake and Output 02/15/17 02/16/17 19:00 07:00 Intake Total 35 ml Balance 35 ml Tube Feeding 35 ml CXR: no change ET-Tube: 7.0 ET Position: 22 Labs: Laboratory Tests Test 02/15/17 04:00 White Blood Count 7.2 K/UL (4.8-10.8) Red Blood Count 2.89 M/UL (4.20-5.40) L Hemoglobin 9.1 G/DL (12.0-16.0) L Hematocrit 28.4 % (37.0-47.0) L Mean Corpuscular Volume 98 FL (80-99) Mean Corpuscular Hemoglobin 31.4 PG (27.0-31.0) H Mean Corpuscular Hemoglobin Concent 31.9 G/DL (32.0-36.0) L Red Cell Distribution Width 17.5 % (11.6-14.8) H Platelet Count 80 K/UL (150-450) L Mean Platelet Volume 8.4 FL (6.5-10.1) Neutrophils (%) (Auto) % (45.0-75.0) Lymphocytes (%) (Auto) % (20.0-45.0) Monocytes (%) (Auto) % (1.0-10.0) Eosinophils (%) (Auto) % (0.0-3.0) Basophils (%) (Auto) % (0.0-2.0) Prothrombin Time 16.1 SEC (9.30-11.50) H Prothromb Time International Ratio 1.5 (0.9-1.1) H Activated Partial Thromboplast Time 36 SEC (23-33) H Sodium Level 147 MMOL/L (136-145) H Potassium Level 2.9 MMOL/L (3.5-5.1) L Chloride Level 109 MMOL/L (98-107) H Carbon Dioxide Level 31 MMOL/L (21-32) Anion Gap 7 mmol/L (5-15) Blood Urea Nitrogen 29 mg/dL (7-18) H Creatinine 4.5 MG/DL (0.55-1.30) H Estimat Glomerular Filtration Rate mL/min (>60) Glucose Level 160 MG/DL (74-106) H Calcium Level 9.3 MG/DL (8.5-10.1) Phosphorus Level 2.5 MG/DL (2.5-4.9) Magnesium Level 1.8 MG/DL (1.8-2.4) Total Bilirubin 2.2 MG/DL (0.2-1.0) H Direct Bilirubin 1.6 MG/DL (0.0-0.3) H Aspartate Amino Transf (AST/SGOT) 41 U/L (15-37) H Alanine Aminotransferase (ALT/SGPT) < 6 U/L (12-78) L Alkaline Phosphatase 185 U/L (46-116) H Total Protein 6.0 G/DL (6.4-8.2) L Albumin 1.4 G/DL (3.4-5.0) L Globulin 4.6 g/dL Albumin/Globulin Ratio 0.3 (1.0-2.7) L DIONI TRIANA Feb 15, 2017 08:50
--- NOTE | 2017-02-15 09:17 | Diagnostic Imaging Report ---
Clinical history: As in header. Technique: Portable AP chest radiograph was obtained. Comparison: 02/14/17 at 12:22 PM Findings: The endotracheal tube has been advanced with the tip now 5 mm above the tristan. Pulmonary aeration appears improved. There is otherwise no significant interval change in the interval, allowing for differences in technique and positioning. Impression: 1. Interval advancement of the endotracheal tube, with the tip terminating 5 mm above the tristan. 2. Right IJ central venous catheter is in the appropriate position. 3. Cardiomegaly with improving pulmonary aeration. Mild to moderate pulmonary edema/ARDS or multifocal pneumonia with trace effusions remain. 4. Status post L1 vertebral body augmentation.
[2017-02-15] MEDS: Nystatin Powder 100,000 units/gm 15gm TOPIC SCH ×3 (09:32→17:57)
[2017-02-15] MEDS ORDERED: KCl 10% 40mEq/30ml liquid NG ONE (11:00)
[2017-02-15] MEDS: DOPamine 400mg/250ml 250 ML IV SCH (11:15)
--- NOTE | 2017-02-15 11:55 | General Progress Note ---
Assessment/Plan Status: stable Status Narrative K low Assessment/Plan Acute on chronic renal failure- multifactorial CHF DM HTN Sepsis Now: Acute respiratory failure- Intubated - Altered level of consciousness - ESBL (extended spectrum beta-lactamase) producing bacteria infection - Cardiomegaly - DM (diabetes mellitus) - HTN (hypertension) - UTI (urinary tract infection) - Anemia - High Cholestrol - COPD - YELENA - Fatty liver Plan: trach not done yet- due 02/16 HD as needed last done 02/13 K supplement today K & Phos supplement as needed On midodrine Transfuse as needed, Optimize cardiac and pulmonary status 2D echo results noted avoid nephrotoxics monitor renal parameters and lytes Urine studies per orders poor prognosis Subjective ROS Limited/Unobtainable: Yes Gastrointestinal/Abdominal: Reports: diarrhea Allergies: Coded Allergies: PENICILLINS (Unverified Allergy, Unknown, 03/22/15) Objective Last 24 Hour Vital Signs Date Time Temp Pulse Resp B/P (MAP) Pulse Ox O2 Delivery O2 Flow Rate FiO2 02/15/17 11:00 96 20 40 02/15/17 11:00 97 19 88/72 98 Mechanical Ventilator 40 02/15/17 10:00 71 16 89/35 98 Mechanical Ventilator 40 02/15/17 09:00 92 18 117/44 98 Mechanical Ventilator 40 02/15/17 08:56 90 20 40 02/15/17 08:00 85 02/15/17 08:00 40 02/15/17 08:00 98.6 85 18 84/33 98 Mechanical Ventilator 40 02/15/17 07:00 94 20 118/42 98 Mechanical Ventilator 40 02/15/17 06:43 96 20 40 02/15/17 06:00 103 20 133/48 94 Mechanical Ventilator 40 02/15/17 05:15 90 20 40 02/15/17 05:00 89 16 133/45 98 Mechanical Ventilator 40 02/15/17 04:00 40 02/15/17 04:00 65 02/15/17 04:00 98.5 63 20 100/34 98 Mechanical Ventilator 40 02/15/17 03:00 86 18 127/51 99 Mechanical Ventilator 40 02/15/17 02:55 82 20 40 02/15/17 02:00 69 20 107/47 99 Mechanical Ventilator 40 02/15/17 01:15 81 20 40 02/15/17 01:00 81 18 119/49 100 Mechanical Ventilator 40 02/15/17 00:00 40 02/15/17 00:00 98.5 72 19 104/40 99 Mechanical Ventilator 40 02/15/17 00:00 71 02/14/17 23:00 78 19 91/37 99 Mechanical Ventilator 40 02/14/17 22:50 84 20 40 02/14/17 22:00 86 23 97/38 99 Mechanical Ventilator 40 02/14/17 21:06 77 20 40 02/14/17 21:00 83 20 118/59 98 Mechanical Ventilator 40 02/14/17 20:00 98.5 73 18 104/42 99 Mechanical Ventilator 40 02/14/17 20:00 69 02/14/17 20:00 40 02/14/17 19:00 68 20 114/45 98 Mechanical Ventilator 40 02/14/17 18:57 76 20 40 02/14/17 18:00 81 20 123/52 97 Mechanical Ventilator 40 02/14/17 17:32 98 20 40 02/14/17 17:00 81 20 144/44 97 Mechanical Ventilator 40 02/14/17 16:00 98.3 80 23 102/41 98 Mechanical Ventilator 40 02/14/17 16:00 50 02/14/17 16:00 77 02/14/17 15:26 76 20 40 02/14/17 15:00 81 20 86/38 97 Mechanical Ventilator 40 02/14/17 14:00 105 20 102/43 94 Mechanical Ventilator 40 02/14/17 13:17 96 20 40 02/14/17 13:00 96 20 93/43 97 Mechanical Ventilator 40 02/14/17 12:00 81 02/14/17 12:00 50 02/14/17 12:00 98.8 94 19 87/40 95 Mechanical Ventilator 40 Intake and Output 02/15/17 02/16/17 19:00 07:00 Intake Total 175 ml Balance 175 ml Tube Feeding 175 ml Laboratory Tests 02/15/17 04:00: White Blood Count 7.2, Red Blood Count 2.89L, Hemoglobin 9.1L, Hematocrit 28.4L , Mean Corpuscular Volume 98, Mean Corpuscular Hemoglobin 31.4H, Mean Corpuscular Hemoglobin Concent 31.9L, Red Cell Distribution Width 17.5H, Platelet Count 80L, Mean Platelet Volume 8.4, Neutrophils (%) (Auto) , Lymphocytes (%) (Auto) , Monocytes (%) (Auto) , Eosinophils (%) (Auto) , Basophils (%) (Auto) , Prothrombin Time 16.1H, Prothromb Time International Ratio 1.5H, Activated Partial Thromboplast Time 36H, Sodium Level 147H, Potassium Level 2.9L, Chloride Level 109H, Carbon Dioxide Level 31, Anion Gap 7 , Blood Urea Nitrogen 29H, Creatinine 4.5H, Estimat Glomerular Filtration Rate , Glucose Level 160H, Calcium Level 9.3, Phosphorus Level 2.5, Magnesium Level 1.8, Total Bilirubin 2.2H, Direct Bilirubin 1.6H, Aspartate Amino Transf (AST/ SGOT) 41H, Alanine Aminotransferase (ALT/SGPT) < 6L, Alkaline Phosphatase 185H, Total Protein 6.0L, Albumin 1.4L, Globulin 4.6, Albumin/Globulin Ratio 0.3L Height (Feet): 5 Height (Inches): 5.00 Weight (Pounds): 257 General Appearance: no apparent distress Cardiovascular: tachycardia Respiratory/Chest: decreased breath sounds Abdomen: soft, distended Objective no other change ANDERS MOLINA Feb 15, 2017 11:55
--- NOTE | 2017-02-15 16:30 | Internal Med Progress Note ---
Subjective Date of Service: Feb 15, 2017 Physician Name Katharina Pond Attending Physician Rl Tee MD Current Medications Medications (Trade) Dose Ordered Sig/Pavel Route PRN Reason Start Time Stop Time Status Last Admin Dose Admin Chlorhexidine Gluconate (Dianne-Hex 2%) 1 applic DAILY@1999 TOPIC 01/25/17 20:00 02/24/17 19:59 02/14/17 19:51 Clotrimazole (Lotrimin) 1 applic EVERY 12 HOURS TOPIC 01/21/17 21:00 02/18/17 13:59 02/15/17 09:32 Dextrose (Dextrose 50%) STAT PRN IV Hypoglycemia 02/06/17 10:45 03/08/17 10:44 Dopamine HCl/ Dextrose 250 ml @ 0 mls/hr Q24H IV 01/25/17 11:15 02/24/17 11:14 02/13/17 16:29 Insulin Aspart (NovoLOG) EVERY 4 HOURS SUBQ 02/06/17 12:00 03/08/17 11:59 02/15/17 13:03 Lorazepam (Ativan 2mg/ml 1ml) 2 mg Q2HR PRN IV For Anxiety 02/14/17 09:00 02/21/17 07:59 02/15/17 12:52 Metoclopramide HCl (Reglan) 5 mg Q8H PRN IVP Nausea & Vomiting 01/29/17 11:30 02/28/17 11:29 01/31/17 11:46 Midodrine (Pro-Amatine) 10 mg Q8HR NG 02/03/17 14:00 03/05/17 13:59 02/15/17 14:21 Nystatin (Nystop Powder) 1 applic THREE TIMES A DAY TOPIC 01/22/17 13:00 02/21/17 12:59 02/15/17 12:56 Ranitidine HCl (Zantac) 150 mg DAILY NG 02/03/17 18:00 03/05/17 17:59 02/15/17 09:36 Rifaximin (Xifaxan) 550 mg EVERY 12 HOURS ORAL 01/29/17 12:00 03/07/17 11:59 02/15/17 09:36 Allergies: Coded Allergies: PENICILLINS (Unverified Allergy, Unknown, 03/22/15) ROS Limited/Unobtainable: Yes Subjective 76 YO F admitted with altered mental status. Intubated and sedated. ICU . Cover for Neha Dillard-Dr Tee. S/P PEG 02/12/17. Await tracheostomy on Mon Objective Last Vital Signs Date Time Temp Pulse Resp B/P (MAP) Pulse Ox O2 Delivery O2 Flow Rate FiO2 02/15/17 15:00 81 19 109/45 100 Mechanical Ventilator 40 02/15/17 12:00 98.5 02/13/17 16:29 15.0 Laboratory Tests Test 02/15/17 04:00 White Blood Count 7.2 K/UL (4.8-10.8) Red Blood Count 2.89 M/UL (4.20-5.40) L Hemoglobin 9.1 G/DL (12.0-16.0) L Hematocrit 28.4 % (37.0-47.0) L Mean Corpuscular Volume 98 FL (80-99) Mean Corpuscular Hemoglobin 31.4 PG (27.0-31.0) H Mean Corpuscular Hemoglobin Concent 31.9 G/DL (32.0-36.0) L Red Cell Distribution Width 17.5 % (11.6-14.8) H Platelet Count 80 K/UL (150-450) L Mean Platelet Volume 8.4 FL (6.5-10.1) Neutrophils (%) (Auto) % (45.0-75.0) Lymphocytes (%) (Auto) % (20.0-45.0) Monocytes (%) (Auto) % (1.0-10.0) Eosinophils (%) (Auto) % (0.0-3.0) Basophils (%) (Auto) % (0.0-2.0) Prothrombin Time 16.1 SEC (9.30-11.50) H Prothromb Time International Ratio 1.5 (0.9-1.1) H Activated Partial Thromboplast Time 36 SEC (23-33) H Sodium Level 147 MMOL/L (136-145) H Potassium Level 2.9 MMOL/L (3.5-5.1) L Chloride Level 109 MMOL/L (98-107) H Carbon Dioxide Level 31 MMOL/L (21-32) Anion Gap 7 mmol/L (5-15) Blood Urea Nitrogen 29 mg/dL (7-18) H Creatinine 4.5 MG/DL (0.55-1.30) H Estimat Glomerular Filtration Rate mL/min (>60) Glucose Level 160 MG/DL (74-106) H Calcium Level 9.3 MG/DL (8.5-10.1) Phosphorus Level 2.5 MG/DL (2.5-4.9) Magnesium Level 1.8 MG/DL (1.8-2.4) Total Bilirubin 2.2 MG/DL (0.2-1.0) H Direct Bilirubin 1.6 MG/DL (0.0-0.3) H Aspartate Amino Transf (AST/SGOT) 41 U/L (15-37) H Alanine Aminotransferase (ALT/SGPT) < 6 U/L (12-78) L Alkaline Phosphatase 185 U/L (46-116) H Total Protein 6.0 G/DL (6.4-8.2) L Albumin 1.4 G/DL (3.4-5.0) L Globulin 4.6 g/dL Albumin/Globulin Ratio 0.3 (1.0-2.7) L Intake and Output 02/15/17 02/16/17 19:00 07:00 Intake Total 315 ml Balance 315 ml Tube Feeding 315 ml Objective General Appearance: WD/WN, no apparent distress, moderate distress, obese EENT: PERRL/EOMI, normal ENT inspection Neck: non-tender, normal alignment, supple, normal inspection Cardiovascular: normal peripheral pulses, normal rate, regular rhythm, no gallop/murmur, no JVD Respiratory/Chest: Mechanical vent; chest wall non-tender, lungs with coarse upper air sounds, Bilat wheezes and rales, respiratory distress Abdomen: G-Tube; non tender, no organomegaly, no mass 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 Baumanii. See ID note. Continur ertaoenem and vanco per ID (2) CHF (congestive heart failure) Assessment & Plan: LVEF 60-65%. see cardiology note. (3) DM (diabetes mellitus) Assessment & Plan: Continue novolog sliding scale (4) Hypercholesteremia (5) HTN (hypertension) Assessment & Plan: Currently hypotensive. (6) Uncontrolled diabetes mellitus (7) Cirrhosis Assessment & Plan: see GI note. (8) Anemia Assessment & Plan: S/P transfusion 2 units PRBC (9) Altered mental status Assessment & Plan: Worsening. ICU status (10) Renal failure Assessment & Plan: Next hemodialysis 02/13/17. See nephrology note. (11) Respiratory failure Assessment & Plan: Due to CHF. Cont mech vent per pulmonary-await tracheostomy 02/16/17. Continue antibiotic per ID (12) Bradycardia Assessment & Plan: see cardiology note. (13) Hypotension Assessment & Plan: Continue dopamine Status: not improved Assessment/Plan Await tracheostomy 02/16/17. KATHARINA POND Feb 15, 2017 16:29
--- NOTE | 2017-02-15 17:17 | Cardiac Electrophysiology PN ---
Assessment/Plan Assessment/Plan 1. CHF due to diastolic dysfunction, EF 60 %. On dialysis. 2. S/P Shock, resolved.Off pressors 3. Bradycardia resolved, off dopamine. On midodrine 5 tid 4. Vent dependent respiratory failure. Self extubated on 02/04 and was reintubated an hour later. Tracheostomy rescheduled for tomorrow 5. Hyperlipidemia. 6. Cirrhosis 7. Anemia with hemoglobin of 8. 8. Hypernatremia Na still 150 9. DNR 10. ESRD on HD 11. DM 12. Dysphagia, S/P PEG 02/12/17 DW RN Subjective Subjective In ICU on Vent off pressors. Tracheostomy postponed to tomorrow. Objective Last 24 Hour Vital Signs Date Time Temp Pulse Resp B/P (MAP) Pulse Ox O2 Delivery O2 Flow Rate FiO2 02/15/17 17:01 88 20 40 02/15/17 15:00 81 19 109/45 100 Mechanical Ventilator 40 02/15/17 14:58 89 20 40 02/15/17 14:00 85 20 84/35 99 Mechanical Ventilator 40 02/15/17 13:02 94 20 40 02/15/17 13:00 87 20 94/52 98 Mechanical Ventilator 40 02/15/17 12:00 40 02/15/17 12:00 87 02/15/17 12:00 98.5 84 21 84/39 98 Mechanical Ventilator 40 02/15/17 11:00 96 20 40 02/15/17 11:00 97 19 88/72 98 Mechanical Ventilator 40 02/15/17 10:00 71 16 89/35 98 Mechanical Ventilator 40 02/15/17 09:00 92 18 117/44 98 Mechanical Ventilator 40 02/15/17 08:56 90 20 40 02/15/17 08:00 85 02/15/17 08:00 40 02/15/17 08:00 98.6 85 18 84/33 98 Mechanical Ventilator 40 02/15/17 07:00 94 20 118/42 98 Mechanical Ventilator 40 02/15/17 06:43 96 20 40 02/15/17 06:00 103 20 133/48 94 Mechanical Ventilator 40 02/15/17 05:15 90 20 40 02/15/17 05:00 89 16 133/45 98 Mechanical Ventilator 40 02/15/17 04:00 40 02/15/17 04:00 65 02/15/17 04:00 98.5 63 20 100/34 98 Mechanical Ventilator 40 02/15/17 03:00 86 18 127/51 99 Mechanical Ventilator 40 02/15/17 02:55 82 20 40 02/15/17 02:00 69 20 107/47 99 Mechanical Ventilator 40 02/15/17 01:15 81 20 40 02/15/17 01:00 81 18 119/49 100 Mechanical Ventilator 40 02/15/17 00:00 40 02/15/17 00:00 98.5 72 19 104/40 99 Mechanical Ventilator 40 02/15/17 00:00 71 02/14/17 23:00 78 19 91/37 99 Mechanical Ventilator 40 02/14/17 22:50 84 20 40 02/14/17 22:00 86 23 97/38 99 Mechanical Ventilator 40 02/14/17 21:06 77 20 40 02/14/17 21:00 83 20 118/59 98 Mechanical Ventilator 40 02/14/17 20:00 98.5 73 18 104/42 99 Mechanical Ventilator 40 02/14/17 20:00 69 02/14/17 20:00 40 02/14/17 19:00 68 20 114/45 98 Mechanical Ventilator 40 02/14/17 18:57 76 20 40 02/14/17 18:00 81 20 123/52 97 Mechanical Ventilator 40 02/14/17 17:32 98 20 40 Intake and Output 02/15/17 02/16/17 19:00 07:00 Intake Total 315 ml Balance 315 ml Tube Feeding 315 ml Laboratory Tests Test 02/15/17 04:00 White Blood Count 7.2 K/UL (4.8-10.8) Red Blood Count 2.89 M/UL (4.20-5.40) L Hemoglobin 9.1 G/DL (12.0-16.0) L Hematocrit 28.4 % (37.0-47.0) L Mean Corpuscular Volume 98 FL (80-99) Mean Corpuscular Hemoglobin 31.4 PG (27.0-31.0) H Mean Corpuscular Hemoglobin Concent 31.9 G/DL (32.0-36.0) L Red Cell Distribution Width 17.5 % (11.6-14.8) H Platelet Count 80 K/UL (150-450) L Mean Platelet Volume 8.4 FL (6.5-10.1) Neutrophils (%) (Auto) % (45.0-75.0) Lymphocytes (%) (Auto) % (20.0-45.0) Monocytes (%) (Auto) % (1.0-10.0) Eosinophils (%) (Auto) % (0.0-3.0) Basophils (%) (Auto) % (0.0-2.0) Prothrombin Time 16.1 SEC (9.30-11.50) H Prothromb Time International Ratio 1.5 (0.9-1.1) H Activated Partial Thromboplast Time 36 SEC (23-33) H Sodium Level 147 MMOL/L (136-145) H Potassium Level 2.9 MMOL/L (3.5-5.1) L Chloride Level 109 MMOL/L (98-107) H Carbon Dioxide Level 31 MMOL/L (21-32) Anion Gap 7 mmol/L (5-15) Blood Urea Nitrogen 29 mg/dL (7-18) H Creatinine 4.5 MG/DL (0.55-1.30) H Estimat Glomerular Filtration Rate mL/min (>60) Glucose Level 160 MG/DL (74-106) H Calcium Level 9.3 MG/DL (8.5-10.1) Phosphorus Level 2.5 MG/DL (2.5-4.9) Magnesium Level 1.8 MG/DL (1.8-2.4) Total Bilirubin 2.2 MG/DL (0.2-1.0) H Direct Bilirubin 1.6 MG/DL (0.0-0.3) H Aspartate Amino Transf (AST/SGOT) 41 U/L (15-37) H Alanine Aminotransferase (ALT/SGPT) < 6 U/L (12-78) L Alkaline Phosphatase 185 U/L (46-116) H Total Protein 6.0 G/DL (6.4-8.2) L Albumin 1.4 G/DL (3.4-5.0) L Globulin 4.6 g/dL Albumin/Globulin Ratio 0.3 (1.0-2.7) L Objective HEAD AND NECK: No JVD.Orally intubated.Right IJ Mahurkar Catheter in place LUNGS: Coarse rhonchi CARDIOVASCULAR: Regular S1 and S2 with no gallop or murmur. ABDOMEN: Soft and nontender and obese.PEG in place EXTREMITIES: 1+ pitting edema. DEAN SHAW Feb 15, 2017 17:16
--- NOTE | 2017-02-15 19:08 | General Progress Note ---
Assessment/Plan Assessment/Plan ASSESSMENT AND RECOMMENDATIONS 1.Thrombocytopenia 2/2 sepsis --> now off abx, continue to monitor --> give plts if below 10k or if below 20k and febrile --> ID following 2. 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 Thrombocytopenia secondary to underlying splenomegaly. 4. Anemia 2/2 chronic disease --> Watch HH, transfuse if below 8 5. Leukocytosis secondary to underlying infection. On abx per id service --> wbc count has now normalized 6. Sepsis 2/2 UTI 7. Altered mental status 8. RAMYA on CKD,on hemodialysis Subjective Constitutional: Reports: no symptoms HEENT: Reports: no symptoms Cardiovascular: Reports: no symptoms Respiratory: Reports: no symptoms Gastrointestinal/Abdominal: Reports: no symptoms Genitourinary: Reports: no symptoms Neurologic/Psychiatric: Reports: no symptoms Endocrine: Reports: no symptoms Hematologic/Lymphatic: Reports: no symptoms Allergies: Coded Allergies: PENICILLINS (Unverified Allergy, Unknown, 03/22/15) Subjective afebrile, no bleeding, in icu Objective Last 24 Hour Vital Signs Date Time Temp Pulse Resp B/P (MAP) Pulse Ox O2 Delivery O2 Flow Rate FiO2 02/15/17 18:00 99 20 140/47 97 Mechanical Ventilator 40 02/15/17 17:01 88 20 40 02/15/17 17:00 65 20 110/39 98 Mechanical Ventilator 40 02/15/17 16:00 82 02/15/17 16:00 98.7 82 20 108/39 99 Mechanical Ventilator 40 02/15/17 16:00 40 02/15/17 15:00 81 19 109/45 100 Mechanical Ventilator 40 02/15/17 14:58 89 20 40 02/15/17 14:00 85 20 84/35 99 Mechanical Ventilator 40 02/15/17 13:02 94 20 40 02/15/17 13:00 87 20 94/52 98 Mechanical Ventilator 40 02/15/17 12:00 40 02/15/17 12:00 87 02/15/17 12:00 98.5 84 21 84/39 98 Mechanical Ventilator 40 02/15/17 11:00 96 20 40 02/15/17 11:00 97 19 88/72 98 Mechanical Ventilator 40 02/15/17 10:00 71 16 89/35 98 Mechanical Ventilator 40 02/15/17 09:00 92 18 117/44 98 Mechanical Ventilator 40 02/15/17 08:56 90 20 40 02/15/17 08:00 85 02/15/17 08:00 40 02/15/17 08:00 98.6 85 18 84/33 98 Mechanical Ventilator 40 02/15/17 07:00 94 20 118/42 98 Mechanical Ventilator 40 02/15/17 06:43 96 20 40 02/15/17 06:00 103 20 133/48 94 Mechanical Ventilator 40 02/15/17 05:15 90 20 40 02/15/17 05:00 89 16 133/45 98 Mechanical Ventilator 40 02/15/17 04:00 40 02/15/17 04:00 65 02/15/17 04:00 98.5 63 20 100/34 98 Mechanical Ventilator 40 02/15/17 03:00 86 18 127/51 99 Mechanical Ventilator 40 02/15/17 02:55 82 20 40 02/15/17 02:00 69 20 107/47 99 Mechanical Ventilator 40 02/15/17 01:15 81 20 40 02/15/17 01:00 81 18 119/49 100 Mechanical Ventilator 40 02/15/17 00:00 40 02/15/17 00:00 98.5 72 19 104/40 99 Mechanical Ventilator 40 02/15/17 00:00 71 02/14/17 23:00 78 19 91/37 99 Mechanical Ventilator 40 02/14/17 22:50 84 20 40 02/14/17 22:00 86 23 97/38 99 Mechanical Ventilator 40 02/14/17 21:06 77 20 40 02/14/17 21:00 83 20 118/59 98 Mechanical Ventilator 40 02/14/17 20:00 98.5 73 18 104/42 99 Mechanical Ventilator 40 02/14/17 20:00 69 02/14/17 20:00 40 Intake and Output 02/15/17 02/16/17 19:00 07:00 Intake Total 420 ml Output Total 0 ml Balance 420 ml Tube Feeding 420 ml Output Urine Total 0 ml Laboratory Tests 02/15/17 04:00: White Blood Count 7.2, Red Blood Count 2.89L, Hemoglobin 9.1L, Hematocrit 28.4L , Mean Corpuscular Volume 98, Mean Corpuscular Hemoglobin 31.4H, Mean Corpuscular Hemoglobin Concent 31.9L, Red Cell Distribution Width 17.5H, Platelet Count 80L, Mean Platelet Volume 8.4, Neutrophils (%) (Auto) , Lymphocytes (%) (Auto) , Monocytes (%) (Auto) , Eosinophils (%) (Auto) , Basophils (%) (Auto) , Prothrombin Time 16.1H, Prothromb Time International Ratio 1.5H, Activated Partial Thromboplast Time 36H, Sodium Level 147H, Potassium Level 2.9L, Chloride Level 109H, Carbon Dioxide Level 31, Anion Gap 7 , Blood Urea Nitrogen 29H, Creatinine 4.5H, Estimat Glomerular Filtration Rate , Glucose Level 160H, Calcium Level 9.3, Phosphorus Level 2.5, Magnesium Level 1.8, Total Bilirubin 2.2H, Direct Bilirubin 1.6H, Aspartate Amino Transf (AST/ SGOT) 41H, Alanine Aminotransferase (ALT/SGPT) < 6L, Alkaline Phosphatase 185H, Total Protein 6.0L, Albumin 1.4L, Globulin 4.6, Albumin/Globulin Ratio 0.3L Height (Feet): 5 Height (Inches): 5.00 Weight (Pounds): 257 General Appearance: no apparent distress EENT: normal ENT inspection Neck: non-tender Cardiovascular: no gallop/murmur Respiratory/Chest: chest wall non-tender, decreased breath sounds Extremities: normal inspection Edema: mild edema Chriss Pat Feb 15, 2017 19:08
[2017-02-15] MEDS: Dyna-Hex 2% Top Sol 2oz TOPIC SCH (20:58)
--- NOTE | 2017-02-15 23:00 | Geriatric Progress Note ---
Assessment/Plan Assessment/Plan encephalopathy mdd cont current meds Discussed with: patient Subjective Functional Changes: 02/14/17 Mood/Memory: Reports: anxiety, depressed feelings, emotional problems Subjective lethargic not communicate agitated last night Geriatric Geriatric Last 24 Hour Vital Signs Date Time Temp Pulse Resp B/P (MAP) Pulse Ox O2 Delivery O2 Flow Rate FiO2 02/15/17 22:00 103 19 158/51 98 Mechanical Ventilator 40 02/15/17 21:41 82 20 40 02/15/17 21:00 95 17 120/49 99 Mechanical Ventilator 40 02/15/17 20:00 40 02/15/17 20:00 98.8 95 23 93/30 96 Mechanical Ventilator 40 02/15/17 19:56 84 02/15/17 19:33 110 23 137/42 97 Mechanical Ventilator 40 02/15/17 19:00 110 23 137/42 97 Mechanical Ventilator 40 02/15/17 18:00 99 20 140/47 97 Mechanical Ventilator 40 02/15/17 17:01 88 20 40 02/15/17 17:00 65 20 110/39 98 Mechanical Ventilator 40 02/15/17 16:00 82 02/15/17 16:00 98.7 82 20 108/39 99 Mechanical Ventilator 40 02/15/17 16:00 40 02/15/17 15:00 81 19 109/45 100 Mechanical Ventilator 40 02/15/17 14:58 89 20 40 02/15/17 14:00 85 20 84/35 99 Mechanical Ventilator 40 02/15/17 13:02 94 20 40 02/15/17 13:00 87 20 94/52 98 Mechanical Ventilator 40 02/15/17 12:00 40 02/15/17 12:00 87 02/15/17 12:00 98.5 84 21 84/39 98 Mechanical Ventilator 40 02/15/17 11:00 96 20 40 02/15/17 11:00 97 19 88/72 98 Mechanical Ventilator 40 02/15/17 10:00 71 16 89/35 98 Mechanical Ventilator 40 02/15/17 09:00 92 18 117/44 98 Mechanical Ventilator 40 02/15/17 08:56 90 20 40 02/15/17 08:00 85 02/15/17 08:00 40 02/15/17 08:00 98.6 85 18 84/33 98 Mechanical Ventilator 40 02/15/17 07:00 94 20 118/42 98 Mechanical Ventilator 40 02/15/17 06:43 96 20 40 02/15/17 06:00 103 20 133/48 94 Mechanical Ventilator 40 02/15/17 05:15 90 20 40 02/15/17 05:00 89 16 133/45 98 Mechanical Ventilator 40 02/15/17 04:00 40 02/15/17 04:00 65 02/15/17 04:00 98.5 63 20 100/34 98 Mechanical Ventilator 40 02/15/17 03:00 86 18 127/51 99 Mechanical Ventilator 40 02/15/17 02:55 82 20 40 02/15/17 02:00 69 20 107/47 99 Mechanical Ventilator 40 02/15/17 01:15 81 20 40 02/15/17 01:00 81 18 119/49 100 Mechanical Ventilator 40 02/15/17 00:00 40 02/15/17 00:00 98.5 72 19 104/40 99 Mechanical Ventilator 40 02/15/17 00:00 71 02/14/17 23:00 78 19 91/37 99 Mechanical Ventilator 40 Intake and Output 02/15/17 02/16/17 19:00 07:00 Intake Total 567.5 ml 155 ml Output Total 0 ml Balance 567.5 ml 155 ml Free Water 50 ml IV Total 112.5 ml Tube Feeding 455 ml 105 ml Output Urine Total 0 ml Laboratory Tests Test 02/15/17 04:00 White Blood Count 7.2 K/UL (4.8-10.8) Red Blood Count 2.89 M/UL (4.20-5.40) L Hemoglobin 9.1 G/DL (12.0-16.0) L Hematocrit 28.4 % (37.0-47.0) L Mean Corpuscular Volume 98 FL (80-99) Mean Corpuscular Hemoglobin 31.4 PG (27.0-31.0) H Mean Corpuscular Hemoglobin Concent 31.9 G/DL (32.0-36.0) L Red Cell Distribution Width 17.5 % (11.6-14.8) H Platelet Count 80 K/UL (150-450) L Mean Platelet Volume 8.4 FL (6.5-10.1) Neutrophils (%) (Auto) % (45.0-75.0) Lymphocytes (%) (Auto) % (20.0-45.0) Monocytes (%) (Auto) % (1.0-10.0) Eosinophils (%) (Auto) % (0.0-3.0) Basophils (%) (Auto) % (0.0-2.0) Prothrombin Time 16.1 SEC (9.30-11.50) H Prothromb Time International Ratio 1.5 (0.9-1.1) H Activated Partial Thromboplast Time 36 SEC (23-33) H Sodium Level 147 MMOL/L (136-145) H Potassium Level 2.9 MMOL/L (3.5-5.1) L Chloride Level 109 MMOL/L (98-107) H Carbon Dioxide Level 31 MMOL/L (21-32) Anion Gap 7 mmol/L (5-15) Blood Urea Nitrogen 29 mg/dL (7-18) H Creatinine 4.5 MG/DL (0.55-1.30) H Estimat Glomerular Filtration Rate mL/min (>60) Glucose Level 160 MG/DL (74-106) H Calcium Level 9.3 MG/DL (8.5-10.1) Phosphorus Level 2.5 MG/DL (2.5-4.9) Magnesium Level 1.8 MG/DL (1.8-2.4) Total Bilirubin 2.2 MG/DL (0.2-1.0) H Direct Bilirubin 1.6 MG/DL (0.0-0.3) H Aspartate Amino Transf (AST/SGOT) 41 U/L (15-37) H Alanine Aminotransferase (ALT/SGPT) < 6 U/L (12-78) L Alkaline Phosphatase 185 U/L (46-116) H Total Protein 6.0 G/DL (6.4-8.2) L Albumin 1.4 G/DL (3.4-5.0) L Globulin 4.6 g/dL Albumin/Globulin Ratio 0.3 (1.0-2.7) L Current Medications Medications (Trade) Dose Ordered Sig/Pavel Route PRN Reason Start Time Stop Time Status Last Admin Dose Admin Chlorhexidine Gluconate (Dianne-Hex 2%) 1 applic DAILY@1999 TOPIC 01/25/17 20:00 02/24/17 19:59 02/15/17 20:58 Clotrimazole (Lotrimin) 1 applic EVERY 12 HOURS TOPIC 01/21/17 21:00 02/18/17 13:59 02/15/17 21:12 Dextrose (Dextrose 50%) STAT PRN IV Hypoglycemia 02/06/17 10:45 03/08/17 10:44 Dopamine HCl/ Dextrose 250 ml @ 0 mls/hr Q24H IV 01/25/17 11:15 02/24/17 11:14 02/13/17 16:29 Insulin Aspart (NovoLOG) EVERY 4 HOURS SUBQ 02/06/17 12:00 03/08/17 11:59 02/15/17 21:13 Lorazepam (Ativan 2mg/ml 1ml) 2 mg Q2HR PRN IV For Anxiety 02/14/17 09:00 02/21/17 07:59 02/15/17 19:28 Metoclopramide HCl (Reglan) 5 mg Q8H PRN IVP Nausea & Vomiting 01/29/17 11:30 02/28/17 11:29 01/31/17 11:46 Midodrine (Pro-Amatine) 10 mg Q8HR NG 02/03/17 14:00 03/05/17 13:59 02/15/17 21:12 Nystatin (Nystop Powder) 1 applic THREE TIMES A DAY TOPIC 01/22/17 13:00 02/21/17 12:59 02/15/17 17:57 Ranitidine HCl (Zantac) 150 mg DAILY NG 02/03/17 18:00 03/05/17 17:59 02/15/17 09:36 Rifaximin (Xifaxan) 550 mg EVERY 12 HOURS ORAL 01/29/17 12:00 03/07/17 11:59 02/15/17 21:12 Height (Feet): 5 Height (Inches): 5.00 Weight (Pounds): 257 General Appearance: lethargic, obese Psychiatric Orientation: disoriented Oj Medel M.D. Feb 15, 2017 23:00
--- NOTE | 2017-02-15 23:01 | General Progress Note ---
Assessment/Plan Status: not improved, unchanged Assessment/Plan encephalopathy Subjective Neurologic/Psychiatric: Reports: anxiety, depressed, emotional problems Allergies: Coded Allergies: PENICILLINS (Unverified Allergy, Unknown, 03/22/15) Subjective lethargic agitated two nights ago Objective Last 24 Hour Vital Signs Date Time Temp Pulse Resp B/P (MAP) Pulse Ox O2 Delivery O2 Flow Rate FiO2 02/15/17 22:00 103 19 158/51 98 Mechanical Ventilator 40 02/15/17 21:41 82 20 40 02/15/17 21:00 95 17 120/49 99 Mechanical Ventilator 40 02/15/17 20:00 40 02/15/17 20:00 98.8 95 23 93/30 96 Mechanical Ventilator 40 02/15/17 19:56 84 02/15/17 19:33 110 23 137/42 97 Mechanical Ventilator 40 02/15/17 19:00 110 23 137/42 97 Mechanical Ventilator 40 02/15/17 18:00 99 20 140/47 97 Mechanical Ventilator 40 02/15/17 17:01 88 20 40 02/15/17 17:00 65 20 110/39 98 Mechanical Ventilator 40 02/15/17 16:00 82 02/15/17 16:00 98.7 82 20 108/39 99 Mechanical Ventilator 40 02/15/17 16:00 40 02/15/17 15:00 81 19 109/45 100 Mechanical Ventilator 40 02/15/17 14:58 89 20 40 02/15/17 14:00 85 20 84/35 99 Mechanical Ventilator 40 02/15/17 13:02 94 20 40 02/15/17 13:00 87 20 94/52 98 Mechanical Ventilator 40 02/15/17 12:00 40 02/15/17 12:00 87 02/15/17 12:00 98.5 84 21 84/39 98 Mechanical Ventilator 40 02/15/17 11:00 96 20 40 02/15/17 11:00 97 19 88/72 98 Mechanical Ventilator 40 02/15/17 10:00 71 16 89/35 98 Mechanical Ventilator 40 02/15/17 09:00 92 18 117/44 98 Mechanical Ventilator 40 02/15/17 08:56 90 20 40 02/15/17 08:00 85 02/15/17 08:00 40 02/15/17 08:00 98.6 85 18 84/33 98 Mechanical Ventilator 40 02/15/17 07:00 94 20 118/42 98 Mechanical Ventilator 40 02/15/17 06:43 96 20 40 02/15/17 06:00 103 20 133/48 94 Mechanical Ventilator 40 02/15/17 05:15 90 20 40 02/15/17 05:00 89 16 133/45 98 Mechanical Ventilator 40 02/15/17 04:00 40 02/15/17 04:00 65 02/15/17 04:00 98.5 63 20 100/34 98 Mechanical Ventilator 40 02/15/17 03:00 86 18 127/51 99 Mechanical Ventilator 40 02/15/17 02:55 82 20 40 02/15/17 02:00 69 20 107/47 99 Mechanical Ventilator 40 02/15/17 01:15 81 20 40 02/15/17 01:00 81 18 119/49 100 Mechanical Ventilator 40 02/15/17 00:00 40 02/15/17 00:00 98.5 72 19 104/40 99 Mechanical Ventilator 40 02/15/17 00:00 71 Intake and Output 02/15/17 02/16/17 19:00 07:00 Intake Total 567.5 ml 155 ml Output Total 0 ml Balance 567.5 ml 155 ml Free Water 50 ml IV Total 112.5 ml Tube Feeding 455 ml 105 ml Output Urine Total 0 ml Laboratory Tests 02/15/17 04:00: White Blood Count 7.2, Red Blood Count 2.89L, Hemoglobin 9.1L, Hematocrit 28.4L , Mean Corpuscular Volume 98, Mean Corpuscular Hemoglobin 31.4H, Mean Corpuscular Hemoglobin Concent 31.9L, Red Cell Distribution Width 17.5H, Platelet Count 80L, Mean Platelet Volume 8.4, Neutrophils (%) (Auto) , Lymphocytes (%) (Auto) , Monocytes (%) (Auto) , Eosinophils (%) (Auto) , Basophils (%) (Auto) , Prothrombin Time 16.1H, Prothromb Time International Ratio 1.5H, Activated Partial Thromboplast Time 36H, Sodium Level 147H, Potassium Level 2.9L, Chloride Level 109H, Carbon Dioxide Level 31, Anion Gap 7 , Blood Urea Nitrogen 29H, Creatinine 4.5H, Estimat Glomerular Filtration Rate , Glucose Level 160H, Calcium Level 9.3, Phosphorus Level 2.5, Magnesium Level 1.8, Total Bilirubin 2.2H, Direct Bilirubin 1.6H, Aspartate Amino Transf (AST/ SGOT) 41H, Alanine Aminotransferase (ALT/SGPT) < 6L, Alkaline Phosphatase 185H, Total Protein 6.0L, Albumin 1.4L, Globulin 4.6, Albumin/Globulin Ratio 0.3L Height (Feet): 5 Height (Inches): 5.00 Weight (Pounds): 257 General Appearance: no apparent distress, lethargic, confused, obese Neurologic: disoriented, unresponsive Oj Medel M.D. Feb 15, 2017 23:01
[2017-02-16] VITALS (24 sets, daily range): BP systolic 82–166; BP diastolic 29–88
[2017-02-16] MEDS: LORazepam Inj 2mg/ml 1ml IV PRN ×6 (00:09→22:39)
[2017-02-16] MEDS: NovoLOG Insulin Flexpen SUBQ SCH ×6 (00:44→21:00)
[2017-02-16 04:40] LABS: BASOPHILS % (AUTO) 0.8 % (0.0-2.0); EOSINOPHILS % (AUTO) 5.2 % (0.0-3.0); HEMATOCRIT 30.9 % (37.0-47.0); HEMOGLOBIN 9.8 G/DL (12.0-16.0); LYMPHOCYTES % (AUTO) 15.8 % (20.0-45.0); MEAN CORPUSCULAR VOLUME 99 FL (80-99); MONOCYTES % (AUTO) 8.7 % (1.0-10.0); NEUTROPHILS % (AUTO) 69.5 % (45.0-75.0); PLATELET COUNT 102 K/UL (150-450); RED BLOOD COUNT 3.13 M/UL (4.20-5.40); RED CELL DISTRIBUTION WIDTH 17.8 % (11.6-14.8); WHITE BLOOD COUNT 12.6 K/UL (4.8-10.8)
[2017-02-16 05:13] LABS: INR 1.4 (0.9-1.1)
[2017-02-16 05:32] LABS: ALANINE AMINOTRANSFERASE < 6 U/L (12-78); ALBUMIN 1.6 G/DL (3.4-5.0); ALBUMIN/GLOBULIN RATIO 0.3 (1.0-2.7); ALKALINE PHOSPHATASE 209 U/L (46-116); ANION GAP 9 mmol/L (5-15); ASPARTATE AMINO TRANSFERASE 52 U/L (15-37); BILIRUBIN,TOTAL 2.1 MG/DL (0.2-1.0); BLOOD UREA NITROGEN 35 mg/dL (7-18); CALCIUM 9.9 MG/DL (8.5-10.1); CARBON DIOXIDE 28 MMOL/L (21-32); CHLORIDE 110 MMOL/L (98-107); CREATININE 5.1 MG/DL (0.55-1.30); PHOSPHORUS 3.1 MG/DL (2.5-4.9); POTASSIUM 3.4 MMOL/L (3.5-5.1); SODIUM 147 MMOL/L (136-145)
[2017-02-16] MEDS: Midodrine 10mg tab NG SCH ×3 (06:10→22:00)
[2017-02-16 06:13] LABS: BILIRUBIN,DIRECT 1.5 MG/DL (0.0-0.3)
[2017-02-16] MEDS: Nystatin Powder 100,000 units/gm 15gm TOPIC SCH ×3 (08:48→17:44)
--- NOTE | 2017-02-16 09:53 | Infectious Diseases Prog Note ---
Assessment/Plan Assessment/Plan Assesment: Encephalopathy- possibly multifactorial- hepatic encephalopathy, infection- worsening now due to hypercapnea (transferred to ICU 01/21), on bipap> intubated Acute respiratory failure 2ry to hypercapnea, PNA; now ARDS - self-extubated, re -intubated 02/04 -CXR 02/14: Cardiomegaly with improving pulmonary aeration. Mild to moderate pulmonary edema/ARDS or multifocal pneumonia with trace effusions remain; improving (my review) -CXR 02/09: diffuse bilateral interstitial and airspace disease -CXR 02/04: Pulmonary parenchymal disease, likely ARDS, overall stable Sepsis 2ry to PNA and Bacteremia, SP HCAP 2ry to ESBL. E.coli, s/p Rx -CXR 02/08: . Extensive bilateral mixed interstitial alveolar lung opacities again noted. -CXR 02/02: Diffuse extensive interstitial and alveolar pulmonary parenchymal disease is unchanged. -repeat sp cx 01/26: +4 MDR A.baumani (I Ceftazidime, R to carbapenem and aminoglycosides, Minocycline; S to Colistin, Polymyxin B) suspect Colonizer ( improving not on tx)-s/p INH Colistin Tx -Sp cx 01/22: +2 ESBK E.coli, +2 C. albicans (colonizer) -CrAg neg, cocci ab pending MRSA bacteremia- with repeat Bcx growing CoNS (?contaminant vs real). BCx cleared 01/26 SP Rx -01/16 04/23 BCx MRSA (S. Vanco JOSE A 1), repeat Bcx 01/19 Neg, 01/21 04/23 CoNS ( contaminant), 01/24 Bcx 04/23 CoNs, Bcx 01/26 Neg x4, 01/28 BCx neg -TTE 01/19(limited study): No aortic regurgitation.Trace mitral regurgitation.Mitral diastolic velocities suggest reduced left ventricular relaxation c/w diastolic dysfunction grade. Moderate tricuspid regurgitation. Leukocytosis, ?aspiration event 02/04; recurrent, mild -Bcx 02/05, Neg; Sp cx 02/06 C. albicans (colonizer) -01/26. pyuria improving (WBC 10-15); ucx C. albicans (colonizer) -10/ u/a WBC 30-40, ucx yeast (colonizer) -Sp cx ESBL E.coli, diaz (colonizer) Elevated LFTs, improving -[place] hep panel neg Probable MDR UTI, pyuria, s/p Rx -u/a 01/16 WBC too many to count,nit neg ,leuk est +3; UCx x3 grew >100K MDR A.baumani complex (S. tigecycline/Minocycline, Polymixin B/Colistin), >100K PsA (S. Cefepime, Zosyn; R Cipro/Levo); a prior isolated on a ucx from the same day isolated MDR PsA (I. Cefepime, R ceftzadime, Meropenem; S. Tygecicine, amikacin) -renal u/s: Nondiagnostic exam Metabolic acidosis, 2ry to renal failure- now improved after initiation of HD 01/28 RAMYA on CKD, started on HD 01/28 Cirrhosis Anemia & thrombocytopenia DM type 2 Morbid obesity DNR PLAN: -Repeat cultures -Continue to monitor off abx unless febrile, HD unstable -s/p 7d IV Vancomcyin 02/11 -s/p 18d prophylatic PO Vanco / -s/p 19d Ertapenem 02/09 -s/p 10d INH Colistin 02/07 for MDR ABC in sputum -02/03 s/p IV Vancomycin #15/14 -s/p 1 dose Amikacin / -s/p 7d Cefepime 10/7 -s/p 3d Amikacin 10/7 -s/p 7d Minocycline 10/7 -s/p 3d IV vanco 10/ -f/u cocci ab monitor CBC, temperatures monitor BMP monitor CXR vent support, trach eventually Discussed with RN. Poor px; critically ill Subjective Allergies: Coded Allergies: PENICILLINS (Unverified Allergy, Unknown, 03/22/15) Subjective afebrile off abx mild leukocytosis otherwise no changes . Objective Vital Signs Last 24 Hour Vital Signs Date Time Temp Pulse Resp B/P (MAP) Pulse Ox O2 Delivery O2 Flow Rate FiO2 02/16/17 09:10 128 22 40 02/16/17 09:00 128 24 122/59 95 Mechanical Ventilator 40 02/16/17 08:00 98.6 127 24 136/70 96 Mechanical Ventilator 40 02/16/17 08:00 40 02/16/17 08:00 133 02/16/17 07:19 127 24 40 02/16/17 07:00 126 28 150/56 98 Mechanical Ventilator 40 02/16/17 06:00 113 15 132/48 96 Mechanical Ventilator 40 02/16/17 05:22 101 20 40 02/16/17 05:00 108 21 115/29 97 Mechanical Ventilator 40 02/16/17 04:00 123 02/16/17 04:00 99.0 125 34 166/48 96 Mechanical Ventilator 40 02/16/17 04:00 40 02/16/17 03:15 94 20 40 02/16/17 03:00 124 29 151/48 97 Mechanical Ventilator 40 02/16/17 02:00 121 28 126/44 97 Mechanical Ventilator 40 02/16/17 01:20 110 20 40 02/16/17 01:00 95 19 95/36 99 Mechanical Ventilator 40 02/16/17 00:00 98.8 118 26 134/53 97 Mechanical Ventilator 40 02/16/17 00:00 114 02/16/17 00:00 40 02/15/17 23:38 114 20 40 02/15/17 23:00 111 19 154/59 98 Mechanical Ventilator 40 02/15/17 22:00 103 19 158/51 98 Mechanical Ventilator 40 02/15/17 21:41 82 20 40 02/15/17 21:00 95 17 120/49 99 Mechanical Ventilator 40 02/15/17 20:00 40 02/15/17 20:00 98.8 95 23 93/30 96 Mechanical Ventilator 40 02/15/17 19:56 84 02/15/17 19:33 110 23 137/42 97 Mechanical Ventilator 40 02/15/17 19:00 110 23 137/42 97 Mechanical Ventilator 40 02/15/17 18:00 99 20 140/47 97 Mechanical Ventilator 40 02/15/17 17:01 88 20 40 02/15/17 17:00 65 20 110/39 98 Mechanical Ventilator 40 02/15/17 16:00 82 02/15/17 16:00 98.7 82 20 108/39 99 Mechanical Ventilator 40 02/15/17 16:00 40 02/15/17 15:00 81 19 109/45 100 Mechanical Ventilator 40 02/15/17 14:58 89 20 40 02/15/17 14:00 85 20 84/35 99 Mechanical Ventilator 40 02/15/17 13:02 94 20 40 02/15/17 13:00 87 20 94/52 98 Mechanical Ventilator 40 02/15/17 12:00 40 02/15/17 12:00 87 02/15/17 12:00 98.5 84 21 84/39 98 Mechanical Ventilator 40 02/15/17 11:00 96 20 40 02/15/17 11:00 97 19 88/72 98 Mechanical Ventilator 40 02/15/17 10:00 71 16 89/35 98 Mechanical Ventilator 40 Height (Feet): 5 Height (Inches): 5.00 Weight (Pounds): 256 Objective HEENT: No pale conjunctivae. No icterus.ETT in place NECK: No lymphadenopathy. CHEST: coarse breath sounds HEART: S1 and S2. ABDOMEN: Soft and obese. EXTREMITIES: No cyanosis. NEUROLOGIC: lethargic. Skin: no rashes reviewed Laboratory Tests Test 02/16/17 04:00 02/16/17 04:30 White Blood Count 12.6 K/UL (4.8-10.8) #H Red Blood Count 3.13 M/UL (4.20-5.40) L Hemoglobin 9.8 G/DL (12.0-16.0) L Hematocrit 30.9 % (37.0-47.0) L Mean Corpuscular Volume 99 FL (80-99) Mean Corpuscular Hemoglobin 31.2 PG (27.0-31.0) H Mean Corpuscular Hemoglobin Concent 31.6 G/DL (32.0-36.0) L Red Cell Distribution Width 17.8 % (11.6-14.8) H Platelet Count 102 K/UL (150-450) L Mean Platelet Volume 8.4 FL (6.5-10.1) Neutrophils (%) (Auto) 69.5 % (45.0-75.0) Lymphocytes (%) (Auto) 15.8 % (20.0-45.0) L Monocytes (%) (Auto) 8.7 % (1.0-10.0) Eosinophils (%) (Auto) 5.2 % (0.0-3.0) H Basophils (%) (Auto) 0.8 % (0.0-2.0) Activated Partial Thromboplast Time 34 SEC (23-33) H Sodium Level 147 MMOL/L (136-145) H Potassium Level 3.4 MMOL/L (3.5-5.1) L Chloride Level 110 MMOL/L (98-107) H Carbon Dioxide Level 28 MMOL/L (21-32) Anion Gap 9 mmol/L (5-15) Blood Urea Nitrogen 35 mg/dL (7-18) H Creatinine 5.1 MG/DL (0.55-1.30) H Estimat Glomerular Filtration Rate mL/min (>60) Glucose Level 157 MG/DL (74-106) H Calcium Level 9.9 MG/DL (8.5-10.1) Phosphorus Level 3.1 MG/DL (2.5-4.9) Magnesium Level 2.0 MG/DL (1.8-2.4) Total Bilirubin 2.1 MG/DL (0.2-1.0) H Direct Bilirubin 1.5 MG/DL (0.0-0.3) H Aspartate Amino Transf (AST/SGOT) 52 U/L (15-37) H Alanine Aminotransferase (ALT/SGPT) < 6 U/L (12-78) L Alkaline Phosphatase 209 U/L (46-116) H Total Protein 6.7 G/DL (6.4-8.2) Albumin 1.6 G/DL (3.4-5.0) L Globulin 5.1 g/dL Albumin/Globulin Ratio 0.3 (1.0-2.7) L Prothrombin Time 14.6 SEC (9.30-11.50) H Prothromb Time International Ratio 1.4 (0.9-1.1) H Current Medications Medications (Trade) Dose Ordered Sig/Pavel Route PRN Reason Start Time Stop Time Status Last Admin Dose Admin Chlorhexidine Gluconate (Dianne-Hex 2%) 1 applic DAILY@1999 TOPIC 01/25/17 20:00 02/24/17 19:59 02/15/17 20:58 Clotrimazole (Lotrimin) 1 applic EVERY 12 HOURS TOPIC 01/21/17 21:00 02/18/17 13:59 02/16/17 08:47 Dextrose (Dextrose 50%) STAT PRN IV Hypoglycemia 02/06/17 10:45 03/08/17 10:44 Dopamine HCl/ Dextrose 250 ml @ 0 mls/hr Q24H IV 01/25/17 11:15 02/24/17 11:14 02/13/17 16:29 Insulin Aspart (NovoLOG) EVERY 4 HOURS SUBQ 02/06/17 12:00 03/08/17 11:59 02/16/17 09:05 Lorazepam (Ativan 2mg/ml 1ml) 2 mg Q2HR PRN IV For Anxiety 02/14/17 09:00 02/21/17 07:59 02/16/17 08:47 Metoclopramide HCl (Reglan) 5 mg Q8H PRN IVP Nausea & Vomiting 01/29/17 11:30 02/28/17 11:29 01/31/17 11:46 Midodrine (Pro-Amatine) 10 mg Q8HR NG 02/03/17 14:00 03/05/17 13:59 02/15/17 21:12 Nystatin (Nystop Powder) 1 applic THREE TIMES A DAY TOPIC 01/22/17 13:00 02/21/17 12:59 02/16/17 08:48 Ranitidine HCl (Zantac) 150 mg DAILY NG 02/03/17 18:00 03/05/17 17:59 02/16/17 08:47 Rifaximin (Xifaxan) 550 mg EVERY 12 HOURS ORAL 01/29/17 12:00 03/07/17 11:59 02/16/17 08:47 Nereyda Monroe M.D. Feb 16, 2017 09:53
[2017-02-16] MEDS ORDERED: Tubing IV Secondary IV ONE (10:41)
--- NOTE | 2017-02-16 11:00 | Diagnostic Imaging Report ---
Indication: DYSPNEA Technique: One view of the chest Comparison: 02/14/2017 Findings: Stable positions of endotracheal tube and right jugular temporary dialysis catheter. Bilateral diffuse interstitial and alveolar disease is unchanged. Other findings are unchanged Impression: Unchanged, over 2 days, findings as above.
[2017-02-16] MEDS: DOPamine 400mg/250ml 250 ML IV SCH (11:15)
--- NOTE | 2017-02-16 11:15 | Pulmonolgy Critical Care Note ---
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 Respiratory: monitor respiratory rate, adjust FIO2, CXR Cardiac: continue pressors, continue to monitor HR/BP Renal: F/U I&O, check electrolytes Infectious Disease: check cultures Gastrointestinal: continue feedings/current rate Endocrine: monitor blood sugar, check HgA1C Hematologic: monitor H/H, transfuse if hgb<8.5 Neurologic: PRN Morphine, keep patient comfortable Affect: PRN ativan Notes Reviewed: associate product integrity engineer, cardio, renal Discussed with: nurses, correctional casework specialistpre school manager - Objective Last 24 Hour Vital Signs Date Time Temp Pulse Resp B/P (MAP) Pulse Ox O2 Delivery O2 Flow Rate FiO2 02/16/17 10:00 121 22 134/72 100 Mechanical Ventilator 40 02/16/17 09:10 128 22 40 02/16/17 09:00 128 24 122/59 95 Mechanical Ventilator 40 02/16/17 08:00 98.6 127 24 136/70 96 Mechanical Ventilator 40 02/16/17 08:00 40 02/16/17 08:00 133 02/16/17 07:19 127 24 40 02/16/17 07:00 126 28 150/56 98 Mechanical Ventilator 40 02/16/17 06:00 113 15 132/48 96 Mechanical Ventilator 40 02/16/17 05:22 101 20 40 02/16/17 05:00 108 21 115/29 97 Mechanical Ventilator 40 02/16/17 04:00 123 02/16/17 04:00 99.0 125 34 166/48 96 Mechanical Ventilator 40 02/16/17 04:00 40 02/16/17 03:15 94 20 40 02/16/17 03:00 124 29 151/48 97 Mechanical Ventilator 40 02/16/17 02:00 121 28 126/44 97 Mechanical Ventilator 40 02/16/17 01:20 110 20 40 02/16/17 01:00 95 19 95/36 99 Mechanical Ventilator 40 02/16/17 00:00 98.8 118 26 134/53 97 Mechanical Ventilator 40 02/16/17 00:00 114 02/16/17 00:00 40 02/15/17 23:38 114 20 40 02/15/17 23:00 111 19 154/59 98 Mechanical Ventilator 40 02/15/17 22:00 103 19 158/51 98 Mechanical Ventilator 40 02/15/17 21:41 82 20 40 02/15/17 21:00 95 17 120/49 99 Mechanical Ventilator 40 02/15/17 20:00 40 02/15/17 20:00 98.8 95 23 93/30 96 Mechanical Ventilator 40 02/15/17 19:56 84 02/15/17 19:33 110 23 137/42 97 Mechanical Ventilator 40 02/15/17 19:00 110 23 137/42 97 Mechanical Ventilator 40 02/15/17 18:00 99 20 140/47 97 Mechanical Ventilator 40 02/15/17 17:01 88 20 40 02/15/17 17:00 65 20 110/39 98 Mechanical Ventilator 40 02/15/17 16:00 82 02/15/17 16:00 98.7 82 20 108/39 99 Mechanical Ventilator 40 02/15/17 16:00 40 02/15/17 15:00 81 19 109/45 100 Mechanical Ventilator 40 02/15/17 14:58 89 20 40 02/15/17 14:00 85 20 84/35 99 Mechanical Ventilator 40 02/15/17 13:02 94 20 40 02/15/17 13:00 87 20 94/52 98 Mechanical Ventilator 40 02/15/17 12:00 40 02/15/17 12:00 87 02/15/17 12:00 98.5 84 21 84/39 98 Mechanical Ventilator 40 Status: awake Condition: critical HEENT: atraumatic Neck: full ROM Lungs: clear Heart: HR/BP stable Abdomen: soft, non-tender, feeding tube Extremities: no C/C/E Accucheck: 143 Critical Care - Subjective Intubation Day: icu 22 Condition: critical, unchanged EKG Rhythm: Sinus Rhythm FI02: 40 Vent Support Breath Rate: 20 Vent Support Mode: AC Vent Tidal Volume: 650 Sputum Amount: Moderate PEEP: 0.0 PIP: 36 Tube Feeding Amount: 35 I&O: Intake and Output 02/16/17 02/17/17 19:00 07:00 Intake Total 190 ml Output Total 0 ml Balance 190 ml Tube Feeding 70 ml Other 120 ml Output Urine Total 0 ml CXR: no change ET-Tube: 7.0 ET Position: 22 Labs: Laboratory Tests Test 02/16/17 04:00 02/16/17 04:30 02/16/17 09:10 White Blood Count 12.6 K/UL (4.8-10.8) #H Red Blood Count 3.13 M/UL (4.20-5.40) L Hemoglobin 9.8 G/DL (12.0-16.0) L Hematocrit 30.9 % (37.0-47.0) L Mean Corpuscular Volume 99 FL (80-99) Mean Corpuscular Hemoglobin 31.2 PG (27.0-31.0) H Mean Corpuscular Hemoglobin Concent 31.6 G/DL (32.0-36.0) L Red Cell Distribution Width 17.8 % (11.6-14.8) H Platelet Count 102 K/UL (150-450) L Mean Platelet Volume 8.4 FL (6.5-10.1) Neutrophils (%) (Auto) 69.5 % (45.0-75.0) Lymphocytes (%) (Auto) 15.8 % (20.0-45.0) L Monocytes (%) (Auto) 8.7 % (1.0-10.0) Eosinophils (%) (Auto) 5.2 % (0.0-3.0) H Basophils (%) (Auto) 0.8 % (0.0-2.0) Activated Partial Thromboplast Time 34 SEC (23-33) H Sodium Level 147 MMOL/L (136-145) H Potassium Level 3.4 MMOL/L (3.5-5.1) L Chloride Level 110 MMOL/L (98-107) H Carbon Dioxide Level 28 MMOL/L (21-32) Anion Gap 9 mmol/L (5-15) Blood Urea Nitrogen 35 mg/dL (7-18) H Creatinine 5.1 MG/DL (0.55-1.30) H Estimat Glomerular Filtration Rate mL/min (>60) Glucose Level 157 MG/DL (74-106) H Calcium Level 9.9 MG/DL (8.5-10.1) Phosphorus Level 3.1 MG/DL (2.5-4.9) Magnesium Level 2.0 MG/DL (1.8-2.4) Total Bilirubin 2.1 MG/DL (0.2-1.0) H Direct Bilirubin 1.5 MG/DL (0.0-0.3) H Aspartate Amino Transf (AST/SGOT) 52 U/L (15-37) H Alanine Aminotransferase (ALT/SGPT) < 6 U/L (12-78) L Alkaline Phosphatase 209 U/L (46-116) H Total Protein 6.7 G/DL (6.4-8.2) Albumin 1.6 G/DL (3.4-5.0) L Globulin 5.1 g/dL Albumin/Globulin Ratio 0.3 (1.0-2.7) L Prothrombin Time 14.6 SEC (9.30-11.50) H Prothromb Time International Ratio 1.4 (0.9-1.1) H Arterial Blood pH 7.428 (7.350-7.450) Arterial Blood Partial Pressure CO2 38.2 mmHg (35.0-45.0) Arterial Blood Partial Pressure O2 71.2 mmHg (75.0-100.0) L Arterial Blood HCO3 24.7 mmol/L (22.0-26.0) Arterial Blood Oxygen Saturation 93.0 % (92.0-98.0) Arterial Blood Base Excess 0.4 Bon Test Positive DIONI TRIANA Feb 16, 2017 11:15
--- NOTE | 2017-02-16 14:32 | Cardiac Electrophysiology PN ---
Assessment/Plan Assessment/Plan 1. CHF due to diastolic dysfunction, EF 60 %. On dialysis. 2. S/P Shock, resolved.Off pressors 3. Bradycardia resolved, off dopamine. On midodrine 5 tid 4. Vent dependent respiratory failure. Self extubated on 02/04 and was reintubated Tracheostomy rescheduled for tomorrow 02/17/17. Consented. Getting 4 units of FFP today 5. Hyperlipidemia. 6. Cirrhosis 7. Anemia with hemoglobin of 8. 8. Hypernatremia Na still 150 9. DNR 10. ESRD on HD 11. DM 12. Dysphagia, S/P PEG 02/12/17 DW RN Subjective Subjective In ICU on Vent off pressors. Tracheostomy postponed to tomorrow again per anesthesia. Consent was obtained. Will be getting 4 units of FFP today.. Objective Last 24 Hour Vital Signs Date Time Temp Pulse Resp B/P (MAP) Pulse Ox O2 Delivery O2 Flow Rate FiO2 02/16/17 13:13 109 20 40 02/16/17 13:00 20 133/50 98 Mechanical Ventilator 40 02/16/17 12:00 40 02/16/17 12:00 123 02/16/17 12:00 97.7 117 18 120/59 99 Mechanical Ventilator 40 02/16/17 11:15 134/61 02/16/17 11:10 120 22 40 02/16/17 11:00 116 24 134/61 98 Mechanical Ventilator 40 02/16/17 10:00 121 22 134/72 100 Mechanical Ventilator 40 02/16/17 09:10 128 22 40 02/16/17 09:00 128 24 122/59 95 Mechanical Ventilator 40 02/16/17 08:00 98.6 127 24 136/70 96 Mechanical Ventilator 40 02/16/17 08:00 40 02/16/17 08:00 133 02/16/17 07:19 127 24 40 02/16/17 07:00 126 28 150/56 98 Mechanical Ventilator 40 02/16/17 06:00 113 15 132/48 96 Mechanical Ventilator 40 02/16/17 05:22 101 20 40 02/16/17 05:00 108 21 115/29 97 Mechanical Ventilator 40 02/16/17 04:00 123 02/16/17 04:00 99.0 125 34 166/48 96 Mechanical Ventilator 40 02/16/17 04:00 40 02/16/17 03:15 94 20 40 02/16/17 03:00 124 29 151/48 97 Mechanical Ventilator 40 02/16/17 02:00 121 28 126/44 97 Mechanical Ventilator 40 02/16/17 01:20 110 20 40 02/16/17 01:00 95 19 95/36 99 Mechanical Ventilator 40 02/16/17 00:00 98.8 118 26 134/53 97 Mechanical Ventilator 40 02/16/17 00:00 114 02/16/17 00:00 40 02/15/17 23:38 114 20 40 02/15/17 23:00 111 19 154/59 98 Mechanical Ventilator 40 02/15/17 22:00 103 19 158/51 98 Mechanical Ventilator 40 02/15/17 21:41 82 20 40 02/15/17 21:00 95 17 120/49 99 Mechanical Ventilator 40 02/15/17 20:00 40 02/15/17 20:00 98.8 95 23 93/30 96 Mechanical Ventilator 40 02/15/17 19:56 84 02/15/17 19:33 110 23 137/42 97 Mechanical Ventilator 40 02/15/17 19:00 110 23 137/42 97 Mechanical Ventilator 40 02/15/17 18:00 99 20 140/47 97 Mechanical Ventilator 40 02/15/17 17:01 88 20 40 02/15/17 17:00 65 20 110/39 98 Mechanical Ventilator 40 02/15/17 16:00 82 02/15/17 16:00 98.7 82 20 108/39 99 Mechanical Ventilator 40 02/15/17 16:00 40 02/15/17 15:00 81 19 109/45 100 Mechanical Ventilator 40 02/15/17 14:58 89 20 40 Intake and Output 02/16/17 02/17/17 19:00 07:00 Intake Total 225 ml Output Total 0 ml Balance 225 ml Tube Feeding 105 ml Other 120 ml Output Urine Total 0 ml Laboratory Tests Test 02/16/17 04:00 02/16/17 04:30 02/16/17 09:10 White Blood Count 12.6 K/UL (4.8-10.8) #H Red Blood Count 3.13 M/UL (4.20-5.40) L Hemoglobin 9.8 G/DL (12.0-16.0) L Hematocrit 30.9 % (37.0-47.0) L Mean Corpuscular Volume 99 FL (80-99) Mean Corpuscular Hemoglobin 31.2 PG (27.0-31.0) H Mean Corpuscular Hemoglobin Concent 31.6 G/DL (32.0-36.0) L Red Cell Distribution Width 17.8 % (11.6-14.8) H Platelet Count 102 K/UL (150-450) L Mean Platelet Volume 8.4 FL (6.5-10.1) Neutrophils (%) (Auto) 69.5 % (45.0-75.0) Lymphocytes (%) (Auto) 15.8 % (20.0-45.0) L Monocytes (%) (Auto) 8.7 % (1.0-10.0) Eosinophils (%) (Auto) 5.2 % (0.0-3.0) H Basophils (%) (Auto) 0.8 % (0.0-2.0) Activated Partial Thromboplast Time 34 SEC (23-33) H Sodium Level 147 MMOL/L (136-145) H Potassium Level 3.4 MMOL/L (3.5-5.1) L Chloride Level 110 MMOL/L (98-107) H Carbon Dioxide Level 28 MMOL/L (21-32) Anion Gap 9 mmol/L (5-15) Blood Urea Nitrogen 35 mg/dL (7-18) H Creatinine 5.1 MG/DL (0.55-1.30) H Estimat Glomerular Filtration Rate mL/min (>60) Glucose Level 157 MG/DL (74-106) H Calcium Level 9.9 MG/DL (8.5-10.1) Phosphorus Level 3.1 MG/DL (2.5-4.9) Magnesium Level 2.0 MG/DL (1.8-2.4) Total Bilirubin 2.1 MG/DL (0.2-1.0) H Direct Bilirubin 1.5 MG/DL (0.0-0.3) H Aspartate Amino Transf (AST/SGOT) 52 U/L (15-37) H Alanine Aminotransferase (ALT/SGPT) < 6 U/L (12-78) L Alkaline Phosphatase 209 U/L (46-116) H Total Protein 6.7 G/DL (6.4-8.2) Albumin 1.6 G/DL (3.4-5.0) L Globulin 5.1 g/dL Albumin/Globulin Ratio 0.3 (1.0-2.7) L Prothrombin Time 14.6 SEC (9.30-11.50) H Prothromb Time International Ratio 1.4 (0.9-1.1) H Arterial Blood pH 7.428 (7.350-7.450) Arterial Blood Partial Pressure CO2 38.2 mmHg (35.0-45.0) Arterial Blood Partial Pressure O2 71.2 mmHg (75.0-100.0) L Arterial Blood HCO3 24.7 mmol/L (22.0-26.0) Arterial Blood Oxygen Saturation 93.0 % (92.0-98.0) Arterial Blood Base Excess 0.4 Bon Test Positive Objective HEAD AND NECK: No JVD.Orally intubated.Right IJ Mahurkar Catheter in place LUNGS: Coarse rhonchi CARDIOVASCULAR: Regular S1 and S2 with no gallop or murmur. ABDOMEN: Soft and nontender and obese.PEG in place EXTREMITIES: 1+ pitting edema. DEAN SHAW Feb 16, 2017 14:32
--- NOTE | 2017-02-16 15:04 | General Progress Note ---
Assessment/Plan Status: stable - from renal stand Assessment/Plan Acute on chronic renal failure- multifactorial CHF DM HTN Sepsis Now: Acute respiratory failure- Intubated - Altered level of consciousness - ESBL (extended spectrum beta-lactamase) producing bacteria infection - Cardiomegaly - DM (diabetes mellitus) - HTN (hypertension) - UTI (urinary tract infection) - Anemia - High Cholestrol - COPD - YELENA - Fatty liver Plan: trach not done yet- due 02/17 HD as needed last done 02/13 next 02/17 K supplement today K & Phos supplement as needed On midodrine Transfuse as needed, Optimize cardiac and pulmonary status 2D echo results noted avoid nephrotoxics monitor renal parameters and lytes Urine studies per orders poor prognosis Subjective ROS Limited/Unobtainable: Yes Allergies: Coded Allergies: PENICILLINS (Unverified Allergy, Unknown, 03/22/15) Objective Last 24 Hour Vital Signs Date Time Temp Pulse Resp B/P (MAP) Pulse Ox O2 Delivery O2 Flow Rate FiO2 02/16/17 15:01 103 16 118/65 98 Mechanical Ventilator 40 02/16/17 14:00 101 20 82/63 100 Mechanical Ventilator 40 02/16/17 13:13 109 20 40 02/16/17 13:00 20 133/50 98 Mechanical Ventilator 40 02/16/17 12:00 40 02/16/17 12:00 123 02/16/17 12:00 97.7 117 18 120/59 99 Mechanical Ventilator 40 02/16/17 11:15 134/61 02/16/17 11:10 120 22 40 02/16/17 11:00 116 24 134/61 98 Mechanical Ventilator 40 02/16/17 10:00 121 22 134/72 100 Mechanical Ventilator 40 02/16/17 09:10 128 22 40 02/16/17 09:00 128 24 122/59 95 Mechanical Ventilator 40 02/16/17 08:00 98.6 127 24 136/70 96 Mechanical Ventilator 40 02/16/17 08:00 40 02/16/17 08:00 133 02/16/17 07:19 127 24 40 02/16/17 07:00 126 28 150/56 98 Mechanical Ventilator 40 02/16/17 06:00 113 15 132/48 96 Mechanical Ventilator 40 02/16/17 05:22 101 20 40 02/16/17 05:00 108 21 115/29 97 Mechanical Ventilator 40 02/16/17 04:00 123 02/16/17 04:00 99.0 125 34 166/48 96 Mechanical Ventilator 40 02/16/17 04:00 40 02/16/17 03:15 94 20 40 02/16/17 03:00 124 29 151/48 97 Mechanical Ventilator 40 02/16/17 02:00 121 28 126/44 97 Mechanical Ventilator 40 02/16/17 01:20 110 20 40 02/16/17 01:00 95 19 95/36 99 Mechanical Ventilator 40 02/16/17 00:00 98.8 118 26 134/53 97 Mechanical Ventilator 40 02/16/17 00:00 114 02/16/17 00:00 40 02/15/17 23:38 114 20 40 02/15/17 23:00 111 19 154/59 98 Mechanical Ventilator 40 02/15/17 22:00 103 19 158/51 98 Mechanical Ventilator 40 02/15/17 21:41 82 20 40 02/15/17 21:00 95 17 120/49 99 Mechanical Ventilator 40 02/15/17 20:00 40 02/15/17 20:00 98.8 95 23 93/30 96 Mechanical Ventilator 40 02/15/17 19:56 84 02/15/17 19:33 110 23 137/42 97 Mechanical Ventilator 40 02/15/17 19:00 110 23 137/42 97 Mechanical Ventilator 40 02/15/17 18:00 99 20 140/47 97 Mechanical Ventilator 40 02/15/17 17:01 88 20 40 02/15/17 17:00 65 20 110/39 98 Mechanical Ventilator 40 02/15/17 16:00 82 02/15/17 16:00 98.7 82 20 108/39 99 Mechanical Ventilator 40 02/15/17 16:00 40 Intake and Output 02/16/17 02/17/17 19:00 07:00 Intake Total 275 ml Output Total 0 ml Balance 275 ml IV Total 50 ml Tube Feeding 105 ml Other 120 ml Output Urine Total 0 ml Laboratory Tests 02/16/17 04:00: White Blood Count 12.6#H, Red Blood Count 3.13L, Hemoglobin 9.8L, Hematocrit 30.9L, Mean Corpuscular Volume 99, Mean Corpuscular Hemoglobin 31.2H, Mean Corpuscular Hemoglobin Concent 31.6L, Red Cell Distribution Width 17.8H, Platelet Count 102L, Mean Platelet Volume 8.4, Neutrophils (%) (Auto) 69.5, Lymphocytes (%) (Auto) 15.8L, Monocytes (%) (Auto) 8.7, Eosinophils (%) (Auto) 5.2H, Basophils (%) (Auto) 0.8, Activated Partial Thromboplast Time 34H, Sodium Level 147H, Potassium Level 3.4L, Chloride Level 110H, Carbon Dioxide Level 28, Anion Gap 9, Blood Urea Nitrogen 35H, Creatinine 5.1H, Estimat Glomerular Filtration Rate , Glucose Level 157H, Calcium Level 9.9, Phosphorus Level 3.1, Magnesium Level 2.0, Total Bilirubin 2.1H, Direct Bilirubin 1.5H, Aspartate Amino Transf (AST/SGOT) 52H, Alanine Aminotransferase (ALT/SGPT) < 6L, Alkaline Phosphatase 209H, Total Protein 6.7, Albumin 1.6L, Globulin 5.1, Albumin/ Globulin Ratio 0.3L 02/16/17 04:30: Prothrombin Time 14.6H, Prothromb Time International Ratio 1.4H 02/16/17 09:10: Arterial Blood pH 7.428, Arterial Blood Partial Pressure CO2 38.2, Arterial Blood Partial Pressure O2 71.2L, Arterial Blood HCO3 24.7, Arterial Blood Oxygen Saturation 93.0, Arterial Blood Base Excess 0.4, Bon Test Positive Height (Feet): 5 Height (Inches): 5.00 Weight (Pounds): 256 General Appearance: no apparent distress Cardiovascular: tachycardia Respiratory/Chest: decreased breath sounds Abdomen: soft Objective no other change ANDERS MOLINA Feb 16, 2017 15:04
--- NOTE | 2017-02-16 17:46 | Pre-Procedure Note/Attestation ---
Pre-Procedure Note/Attestation Complete Prior to Procedure Planned Procedure: not applicable Procedure Narrative: Tracheostomy Indications for Procedure Pre-Operative Diagnosis: Resp failure with jail intubation Attestation I attest that I discussed the nature of the procedure; its benefits; risks and complications; and alternatives (and the risks and benefits of such alternatives ), prior to the procedure, with the patient (or the patient's legal junior sales representative). I attest that, if there was a reasonable possibility of needing a blood transfusion, the patient (or the patient's legal junior sales representative) was given the [facility] standardized written summary, pursuant to the Aurelio [place] Blood Safety Act ([place] Health and Safety Code # 1645, as amended). I attest that I re-evaluated the patient just prior to the surgery and that there has been no change in the patient's H&P. INR pending 0400 02/17/17 Anest finally got their consent signed. GEANRO CAMPOS Feb 16, 2017 17:46
--- NOTE | 2017-02-16 17:46 | Pre-Procedure Note/Attestation ---
Pre-Procedure Note/Attestation Complete Prior to Procedure Planned Procedure: not applicable Procedure Narrative: Tracheostomy Indications for Procedure Pre-Operative Diagnosis: Resp failure with fdc intubation Attestation I attest that I discussed the nature of the procedure; its benefits; risks and complications; and alternatives (and the risks and benefits of such alternatives ), prior to the procedure, with the patient (or the patient's legal ambulatory service representative). I attest that, if there was a reasonable possibility of needing a blood transfusion, the patient (or the patient's legal ambulatory service representative) was given the [facility] standardized written summary, pursuant to the Aurelio [place] Blood Safety Act ([place] Health and Safety Code # 1645, as amended). I attest that I re-evaluated the patient just prior to the surgery and that there has been no change in the patient's H&P. INR pending 0400 02/17/17 Anest finally got their consent signed. GENARO CAMPOS Feb 16, 2017 17:46
--- NOTE | 2017-02-16 17:46 | Pre-Procedure Note/Attestation ---
Pre-Procedure Note/Attestation Complete Prior to Procedure Planned Procedure: not applicable Procedure Narrative: Tracheostomy Indications for Procedure Pre-Operative Diagnosis: Resp failure with fci intubation Attestation I attest that I discussed the nature of the procedure; its benefits; risks and complications; and alternatives (and the risks and benefits of such alternatives ), prior to the procedure, with the patient (or the patient's legal territory representative). I attest that, if there was a reasonable possibility of needing a blood transfusion, the patient (or the patient's legal territory representative) was given the [facility] standardized written summary, pursuant to the Aurelio [place] Blood Safety Act ([place] Health and Safety Code # 1645, as amended). I attest that I re-evaluated the patient just prior to the surgery and that there has been no change in the patient's H&P. INR pending 0400 02/17/17 Anest finally got their consent signed. GENARO CAMPOS Feb 16, 2017 17:46
--- NOTE | 2017-02-16 18:30 | Internal Med Progress Note ---
Subjective Date of Service: Feb 16, 2017 Physician Name Katharina Pond Attending Physician Rl Tee MD Current Medications Medications (Trade) Dose Ordered Sig/Pavel Route PRN Reason Start Time Stop Time Status Last Admin Dose Admin Chlorhexidine Gluconate (Dianne-Hex 2%) 1 applic DAILY@1999 TOPIC 01/25/17 20:00 02/24/17 19:59 02/15/17 20:58 Clotrimazole (Lotrimin) 1 applic EVERY 12 HOURS TOPIC 01/21/17 21:00 02/18/17 13:59 02/16/17 08:47 Dextrose (Dextrose 50%) STAT PRN IV Hypoglycemia 02/06/17 10:45 03/08/17 10:44 Dopamine HCl/ Dextrose 250 ml @ 0 mls/hr Q24H IV 01/25/17 11:15 02/24/17 11:14 02/13/17 16:29 Insulin Aspart (NovoLOG) EVERY 4 HOURS SUBQ 02/06/17 12:00 03/08/17 11:59 02/16/17 17:09 Lorazepam (Ativan 2mg/ml 1ml) 2 mg Q2HR PRN IV For Anxiety 02/14/17 09:00 02/21/17 07:59 02/16/17 17:10 Metoclopramide HCl (Reglan) 5 mg Q8H PRN IVP Nausea & Vomiting 01/29/17 11:30 02/28/17 11:29 01/31/17 11:46 Midodrine (Pro-Amatine) 10 mg Q8HR NG 02/03/17 14:00 03/05/17 13:59 02/16/17 14:37 Nystatin (Nystop Powder) 1 applic THREE TIMES A DAY TOPIC 01/22/17 13:00 02/21/17 12:59 02/16/17 17:44 Ranitidine HCl (Zantac) 150 mg DAILY NG 02/03/17 18:00 03/05/17 17:59 02/16/17 08:47 Rifaximin (Xifaxan) 550 mg EVERY 12 HOURS ORAL 01/29/17 12:00 03/07/17 11:59 02/16/17 08:47 Allergies: Coded Allergies: PENICILLINS (Unverified Allergy, Unknown, 03/22/15) ROS Limited/Unobtainable: Yes Subjective 76 YO F admitted with altered mental status. Intubated and sedated. ICU . Cover for Neha Dillard-Dr Tee. S/P PEG 02/12/17. Await tracheostomy on Tue Objective Last Vital Signs Date Time Temp Pulse Resp B/P (MAP) Pulse Ox O2 Delivery O2 Flow Rate FiO2 02/16/17 17:58 97.3 99 20 148/55 99 Mechanical Ventilator 40 02/13/17 16:29 15.0 Laboratory Tests Test 02/16/17 04:00 02/16/17 04:30 02/16/17 09:10 White Blood Count 12.6 K/UL (4.8-10.8) #H Red Blood Count 3.13 M/UL (4.20-5.40) L Hemoglobin 9.8 G/DL (12.0-16.0) L Hematocrit 30.9 % (37.0-47.0) L Mean Corpuscular Volume 99 FL (80-99) Mean Corpuscular Hemoglobin 31.2 PG (27.0-31.0) H Mean Corpuscular Hemoglobin Concent 31.6 G/DL (32.0-36.0) L Red Cell Distribution Width 17.8 % (11.6-14.8) H Platelet Count 102 K/UL (150-450) L Mean Platelet Volume 8.4 FL (6.5-10.1) Neutrophils (%) (Auto) 69.5 % (45.0-75.0) Lymphocytes (%) (Auto) 15.8 % (20.0-45.0) L Monocytes (%) (Auto) 8.7 % (1.0-10.0) Eosinophils (%) (Auto) 5.2 % (0.0-3.0) H Basophils (%) (Auto) 0.8 % (0.0-2.0) Activated Partial Thromboplast Time 34 SEC (23-33) H Sodium Level 147 MMOL/L (136-145) H Potassium Level 3.4 MMOL/L (3.5-5.1) L Chloride Level 110 MMOL/L (98-107) H Carbon Dioxide Level 28 MMOL/L (21-32) Anion Gap 9 mmol/L (5-15) Blood Urea Nitrogen 35 mg/dL (7-18) H Creatinine 5.1 MG/DL (0.55-1.30) H Estimat Glomerular Filtration Rate mL/min (>60) Glucose Level 157 MG/DL (74-106) H Calcium Level 9.9 MG/DL (8.5-10.1) Phosphorus Level 3.1 MG/DL (2.5-4.9) Magnesium Level 2.0 MG/DL (1.8-2.4) Total Bilirubin 2.1 MG/DL (0.2-1.0) H Direct Bilirubin 1.5 MG/DL (0.0-0.3) H Aspartate Amino Transf (AST/SGOT) 52 U/L (15-37) H Alanine Aminotransferase (ALT/SGPT) < 6 U/L (12-78) L Alkaline Phosphatase 209 U/L (46-116) H Total Protein 6.7 G/DL (6.4-8.2) Albumin 1.6 G/DL (3.4-5.0) L Globulin 5.1 g/dL Albumin/Globulin Ratio 0.3 (1.0-2.7) L Prothrombin Time 14.6 SEC (9.30-11.50) H Prothromb Time International Ratio 1.4 (0.9-1.1) H Arterial Blood pH 7.428 (7.350-7.450) Arterial Blood Partial Pressure CO2 38.2 mmHg (35.0-45.0) Arterial Blood Partial Pressure O2 71.2 mmHg (75.0-100.0) L Arterial Blood HCO3 24.7 mmol/L (22.0-26.0) Arterial Blood Oxygen Saturation 93.0 % (92.0-98.0) Arterial Blood Base Excess 0.4 Bon Test Positive Intake and Output 02/16/17 02/17/17 19:00 07:00 Intake Total 455 ml Output Total 0 ml Balance 455 ml IV Total 50 ml Tube Feeding 245 ml Other 160 ml Output Urine Total 0 ml Objective General Appearance: WD/WN, no apparent distress, moderate distress, obese EENT: PERRL/EOMI, normal ENT inspection Neck: non-tender, normal alignment, supple, normal inspection Cardiovascular: normal peripheral pulses, normal rate, regular rhythm, no gallop/murmur, no JVD Respiratory/Chest: Mechanical vent; chest wall non-tender, lungs with coarse upper air sounds, Bilat wheezes and rales, respiratory distress Abdomen: G-Tube; non tender, no organomegaly, no mass Neurologic: disaster recovery manager 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 Baumanii. See ID note. Continur ertaoenem and vanco per ID (2) CHF (congestive heart failure) Assessment & Plan: LVEF 60-65%. see cardiology note. (3) DM (diabetes mellitus) Assessment & Plan: Continue novolog sliding scale (4) Hypercholesteremia (5) HTN (hypertension) Assessment & Plan: Currently hypotensive. (6) Uncontrolled diabetes mellitus (7) Cirrhosis Assessment & Plan: see GI note. (8) Anemia Assessment & Plan: S/P transfusion 2 units PRBC (9) Altered mental status Assessment & Plan: Worsening. ICU status (10) Renal failure Assessment & Plan: Next hemodialysis 02/17/17. See nephrology note. (11) Respiratory failure Assessment & Plan: Due to CHF. Cont mech vent per pulmonary-await tracheostomy 02/17/17. Continue antibiotic per ID (12) Bradycardia Assessment & Plan: see cardiology note. (13) Hypotension Assessment & Plan: Continue dopamine Status: not improved Assessment/Plan Await tracheostomy 02/16/17. KATHARINA POND Feb 16, 2017 18:30
[2017-02-16] MEDS: Dyna-Hex 2% Top Sol 2oz TOPIC SCH (20:02)
--- NOTE | 2017-02-16 21:54 | General Progress Note ---
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 - dysphagia - s/p PEG Recommendations - continue off of lactulose - continue Xifaxan - Continue TF - follow labs - HD/lytes per Renal - free water - await trach Subjective Allergies: Coded Allergies: PENICILLINS (Unverified Allergy, Unknown, 03/22/15) Subjective above noted seen in ICU d/w staff training and development manager Objective Last 24 Hour Vital Signs Date Time Temp Pulse Resp B/P (MAP) Pulse Ox O2 Delivery O2 Flow Rate FiO2 02/16/17 21:16 80 20 40 02/16/17 21:00 76 14 123/52 100 Mechanical Ventilator 40 02/16/17 20:00 40 02/16/17 20:00 97.5 86 20 140/88 99 Mechanical Ventilator 40 02/16/17 20:00 86 02/16/17 19:30 78 20 40 02/16/17 19:00 99 16 112/61 100 Mechanical Ventilator 40 02/16/17 17:58 97.3 99 20 148/55 99 Mechanical Ventilator 40 02/16/17 17:21 98 22 40 02/16/17 17:00 97 20 133/58 98 Mechanical Ventilator 40 02/16/17 16:00 97.3 85 16 121/57 100 Mechanical Ventilator 40 02/16/17 16:00 40 02/16/17 16:00 101 02/16/17 15:02 99 20 40 02/16/17 15:01 103 16 115/61 98 Mechanical Ventilator 40 02/16/17 14:00 101 20 82/63 100 Mechanical Ventilator 40 02/16/17 13:13 109 20 40 02/16/17 13:00 20 133/50 98 Mechanical Ventilator 40 02/16/17 12:00 40 02/16/17 12:00 123 02/16/17 12:00 97.7 117 18 120/59 99 Mechanical Ventilator 40 02/16/17 11:15 134/61 02/16/17 11:10 120 22 40 02/16/17 11:00 116 24 134/61 98 Mechanical Ventilator 40 02/16/17 10:00 121 22 134/72 100 Mechanical Ventilator 40 02/16/17 09:10 128 22 40 02/16/17 09:00 128 24 122/59 95 Mechanical Ventilator 40 02/16/17 08:00 98.6 127 24 136/70 96 Mechanical Ventilator 40 02/16/17 08:00 40 02/16/17 08:00 133 02/16/17 07:19 127 24 40 02/16/17 07:00 126 28 150/56 98 Mechanical Ventilator 40 02/16/17 06:00 113 15 132/48 96 Mechanical Ventilator 40 02/16/17 05:22 101 20 40 02/16/17 05:00 108 21 115/29 97 Mechanical Ventilator 40 02/16/17 04:00 123 02/16/17 04:00 99.0 125 34 166/48 96 Mechanical Ventilator 40 02/16/17 04:00 40 02/16/17 03:15 94 20 40 02/16/17 03:00 124 29 151/48 97 Mechanical Ventilator 40 02/16/17 02:00 121 28 126/44 97 Mechanical Ventilator 40 02/16/17 01:20 110 20 40 02/16/17 01:00 95 19 95/36 99 Mechanical Ventilator 40 02/16/17 00:00 98.8 118 26 134/53 97 Mechanical Ventilator 40 02/16/17 00:00 114 02/16/17 00:00 40 02/15/17 23:38 114 20 40 02/15/17 23:00 111 19 154/59 98 Mechanical Ventilator 40 02/15/17 22:00 103 19 158/51 98 Mechanical Ventilator 40 Intake and Output 02/16/17 02/17/17 19:00 07:00 Intake Total 570 ml 365 ml Output Total 200 ml Balance 370 ml 365 ml IV Total 100 ml Tube Feeding 280 ml 35 ml Blood Product 270 ml Other 190 ml 60 ml Output Urine Total 0 ml Stool Total 200 ml Laboratory Tests 02/16/17 04:00: White Blood Count 12.6#H, Red Blood Count 3.13L, Hemoglobin 9.8L, Hematocrit 30.9L, Mean Corpuscular Volume 99, Mean Corpuscular Hemoglobin 31.2H, Mean Corpuscular Hemoglobin Concent 31.6L, Red Cell Distribution Width 17.8H, Platelet Count 102L, Mean Platelet Volume 8.4, Neutrophils (%) (Auto) 69.5, Lymphocytes (%) (Auto) 15.8L, Monocytes (%) (Auto) 8.7, Eosinophils (%) (Auto) 5.2H, Basophils (%) (Auto) 0.8, Activated Partial Thromboplast Time 34H, Sodium Level 147H, Potassium Level 3.4L, Chloride Level 110H, Carbon Dioxide Level 28, Anion Gap 9, Blood Urea Nitrogen 35H, Creatinine 5.1H, Estimat Glomerular Filtration Rate , Glucose Level 157H, Calcium Level 9.9, Phosphorus Level 3.1, Magnesium Level 2.0, Total Bilirubin 2.1H, Direct Bilirubin 1.5H, Aspartate Amino Transf (AST/SGOT) 52H, Alanine Aminotransferase (ALT/SGPT) < 6L, Alkaline Phosphatase 209H, Total Protein 6.7, Albumin 1.6L, Globulin 5.1, Albumin/ Globulin Ratio 0.3L 02/16/17 04:30: Prothrombin Time 14.6H, Prothromb Time International Ratio 1.4H 02/16/17 09:10: Arterial Blood pH 7.428, Arterial Blood Partial Pressure CO2 38.2, Arterial Blood Partial Pressure O2 71.2L, Arterial Blood HCO3 24.7, Arterial Blood Oxygen Saturation 93.0, Arterial Blood Base Excess 0.4, Bon Test Positive Height (Feet): 5 Height (Inches): 5.00 Weight (Pounds): 256 Objective Obese WW NCAT, (+) ETT and NGT supple CTA RRR soft ND NT, (+) PEG (+) edema KIERSTEN Ayon Feb 16, 2017 21:54
--- NOTE | 2017-02-16 21:56 | General Progress Note ---
Assessment/Plan Status: stable Assessment/Plan encephalopathy agitation Subjective Neurologic/Psychiatric: Reports: anxiety Allergies: Coded Allergies: PENICILLINS (Unverified Allergy, Unknown, 03/22/15) Subjective lethargic agitated this afternoon Objective Last 24 Hour Vital Signs Date Time Temp Pulse Resp B/P (MAP) Pulse Ox O2 Delivery O2 Flow Rate FiO2 02/16/17 21:16 80 20 40 02/16/17 21:00 76 14 123/52 100 Mechanical Ventilator 40 02/16/17 20:00 40 02/16/17 20:00 97.5 86 20 140/88 99 Mechanical Ventilator 40 02/16/17 20:00 86 02/16/17 19:30 78 20 40 02/16/17 19:00 99 16 112/61 100 Mechanical Ventilator 40 02/16/17 17:58 97.3 99 20 148/55 99 Mechanical Ventilator 40 02/16/17 17:21 98 22 40 02/16/17 17:00 97 20 133/58 98 Mechanical Ventilator 40 02/16/17 16:00 97.3 85 16 121/57 100 Mechanical Ventilator 40 02/16/17 16:00 40 02/16/17 16:00 101 02/16/17 15:02 99 20 40 02/16/17 15:01 103 16 115/61 98 Mechanical Ventilator 40 02/16/17 14:00 101 20 82/63 100 Mechanical Ventilator 40 02/16/17 13:13 109 20 40 02/16/17 13:00 20 133/50 98 Mechanical Ventilator 40 02/16/17 12:00 40 02/16/17 12:00 123 02/16/17 12:00 97.7 117 18 120/59 99 Mechanical Ventilator 40 02/16/17 11:15 134/61 02/16/17 11:10 120 22 40 02/16/17 11:00 116 24 134/61 98 Mechanical Ventilator 40 02/16/17 10:00 121 22 134/72 100 Mechanical Ventilator 40 02/16/17 09:10 128 22 40 02/16/17 09:00 128 24 122/59 95 Mechanical Ventilator 40 02/16/17 08:00 98.6 127 24 136/70 96 Mechanical Ventilator 40 02/16/17 08:00 40 02/16/17 08:00 133 02/16/17 07:19 127 24 40 02/16/17 07:00 126 28 150/56 98 Mechanical Ventilator 40 02/16/17 06:00 113 15 132/48 96 Mechanical Ventilator 40 02/16/17 05:22 101 20 40 02/16/17 05:00 108 21 115/29 97 Mechanical Ventilator 40 02/16/17 04:00 123 02/16/17 04:00 99.0 125 34 166/48 96 Mechanical Ventilator 40 02/16/17 04:00 40 02/16/17 03:15 94 20 40 02/16/17 03:00 124 29 151/48 97 Mechanical Ventilator 40 02/16/17 02:00 121 28 126/44 97 Mechanical Ventilator 40 02/16/17 01:20 110 20 40 02/16/17 01:00 95 19 95/36 99 Mechanical Ventilator 40 02/16/17 00:00 98.8 118 26 134/53 97 Mechanical Ventilator 40 02/16/17 00:00 114 02/16/17 00:00 40 02/15/17 23:38 114 20 40 02/15/17 23:00 111 19 154/59 98 Mechanical Ventilator 40 02/15/17 22:00 103 19 158/51 98 Mechanical Ventilator 40 Intake and Output 02/16/17 02/17/17 19:00 07:00 Intake Total 570 ml 365 ml Output Total 200 ml Balance 370 ml 365 ml IV Total 100 ml Tube Feeding 280 ml 35 ml Blood Product 270 ml Other 190 ml 60 ml Output Urine Total 0 ml Stool Total 200 ml Laboratory Tests 02/16/17 04:00: White Blood Count 12.6#H, Red Blood Count 3.13L, Hemoglobin 9.8L, Hematocrit 30.9L, Mean Corpuscular Volume 99, Mean Corpuscular Hemoglobin 31.2H, Mean Corpuscular Hemoglobin Concent 31.6L, Red Cell Distribution Width 17.8H, Platelet Count 102L, Mean Platelet Volume 8.4, Neutrophils (%) (Auto) 69.5, Lymphocytes (%) (Auto) 15.8L, Monocytes (%) (Auto) 8.7, Eosinophils (%) (Auto) 5.2H, Basophils (%) (Auto) 0.8, Activated Partial Thromboplast Time 34H, Sodium Level 147H, Potassium Level 3.4L, Chloride Level 110H, Carbon Dioxide Level 28, Anion Gap 9, Blood Urea Nitrogen 35H, Creatinine 5.1H, Estimat Glomerular Filtration Rate , Glucose Level 157H, Calcium Level 9.9, Phosphorus Level 3.1, Magnesium Level 2.0, Total Bilirubin 2.1H, Direct Bilirubin 1.5H, Aspartate Amino Transf (AST/SGOT) 52H, Alanine Aminotransferase (ALT/SGPT) < 6L, Alkaline Phosphatase 209H, Total Protein 6.7, Albumin 1.6L, Globulin 5.1, Albumin/ Globulin Ratio 0.3L 02/16/17 04:30: Prothrombin Time 14.6H, Prothromb Time International Ratio 1.4H 02/16/17 09:10: Arterial Blood pH 7.428, Arterial Blood Partial Pressure CO2 38.2, Arterial Blood Partial Pressure O2 71.2L, Arterial Blood HCO3 24.7, Arterial Blood Oxygen Saturation 93.0, Arterial Blood Base Excess 0.4, Bon Test Positive Height (Feet): 5 Height (Inches): 5.00 Weight (Pounds): 256 General Appearance: no apparent distress, lethargic, confused, morbidly obese Neurologic: disoriented, unresponsive, depressed affect Oj Medel M.D. Feb 16, 2017 21:56
--- NOTE | 2017-02-16 21:59 | General Progress Note ---
Assessment/Plan Assessment/Plan ASSESSMENT AND RECOMMENDATIONS 1.Thrombocytopenia 2/2 sepsis --> now off abx, continue to monitor --> give plts if below 10k or if below 20k and febrile --> ID following 2. Coagulopathy secondary to underlying liver cirrhosis ---> s/p multiple units ffp and vitamin k 3. Thrombocytopenia secondary to underlying splenomegaly. 4. Anemia 2/2 chronic disease --> Watch HH, transfuse if below 8 5. Leukocytosis secondary to underlying infection. On abx per id service --> wbc count has now normalized 6. Sepsis 2/2 UTI 7. Altered mental status 8. RAMYA on CKD,on hemodialysis Subjective ROS Limited/Unobtainable: Yes Allergies: Coded Allergies: PENICILLINS (Unverified Allergy, Unknown, 03/22/15) Subjective in icu Objective Last 24 Hour Vital Signs Date Time Temp Pulse Resp B/P (MAP) Pulse Ox O2 Delivery O2 Flow Rate FiO2 02/16/17 21:16 80 20 40 02/16/17 21:00 76 14 123/52 100 Mechanical Ventilator 40 02/16/17 20:00 40 02/16/17 20:00 97.5 86 20 140/88 99 Mechanical Ventilator 40 02/16/17 20:00 86 02/16/17 19:30 78 20 40 02/16/17 19:00 99 16 112/61 100 Mechanical Ventilator 40 02/16/17 17:58 97.3 99 20 148/55 99 Mechanical Ventilator 40 02/16/17 17:21 98 22 40 02/16/17 17:00 97 20 133/58 98 Mechanical Ventilator 40 02/16/17 16:00 97.3 85 16 121/57 100 Mechanical Ventilator 40 02/16/17 16:00 40 02/16/17 16:00 101 02/16/17 15:02 99 20 40 02/16/17 15:01 103 16 115/61 98 Mechanical Ventilator 40 02/16/17 14:00 101 20 82/63 100 Mechanical Ventilator 40 02/16/17 13:13 109 20 40 02/16/17 13:00 20 133/50 98 Mechanical Ventilator 40 02/16/17 12:00 40 02/16/17 12:00 123 02/16/17 12:00 97.7 117 18 120/59 99 Mechanical Ventilator 40 02/16/17 11:15 134/61 02/16/17 11:10 120 22 40 02/16/17 11:00 116 24 134/61 98 Mechanical Ventilator 40 02/16/17 10:00 121 22 134/72 100 Mechanical Ventilator 40 02/16/17 09:10 128 22 40 02/16/17 09:00 128 24 122/59 95 Mechanical Ventilator 40 02/16/17 08:00 98.6 127 24 136/70 96 Mechanical Ventilator 40 02/16/17 08:00 40 02/16/17 08:00 133 02/16/17 07:19 127 24 40 02/16/17 07:00 126 28 150/56 98 Mechanical Ventilator 40 02/16/17 06:00 113 15 132/48 96 Mechanical Ventilator 40 02/16/17 05:22 101 20 40 02/16/17 05:00 108 21 115/29 97 Mechanical Ventilator 40 02/16/17 04:00 123 02/16/17 04:00 99.0 125 34 166/48 96 Mechanical Ventilator 40 02/16/17 04:00 40 02/16/17 03:15 94 20 40 02/16/17 03:00 124 29 151/48 97 Mechanical Ventilator 40 02/16/17 02:00 121 28 126/44 97 Mechanical Ventilator 40 02/16/17 01:20 110 20 40 02/16/17 01:00 95 19 95/36 99 Mechanical Ventilator 40 02/16/17 00:00 98.8 118 26 134/53 97 Mechanical Ventilator 40 02/16/17 00:00 114 02/16/17 00:00 40 02/15/17 23:38 114 20 40 02/15/17 23:00 111 19 154/59 98 Mechanical Ventilator 40 02/15/17 22:00 103 19 158/51 98 Mechanical Ventilator 40 Intake and Output 02/16/17 02/17/17 19:00 07:00 Intake Total 570 ml 365 ml Output Total 200 ml Balance 370 ml 365 ml IV Total 100 ml Tube Feeding 280 ml 35 ml Blood Product 270 ml Other 190 ml 60 ml Output Urine Total 0 ml Stool Total 200 ml Laboratory Tests 02/16/17 04:00: White Blood Count 12.6#H, Red Blood Count 3.13L, Hemoglobin 9.8L, Hematocrit 30.9L, Mean Corpuscular Volume 99, Mean Corpuscular Hemoglobin 31.2H, Mean Corpuscular Hemoglobin Concent 31.6L, Red Cell Distribution Width 17.8H, Platelet Count 102L, Mean Platelet Volume 8.4, Neutrophils (%) (Auto) 69.5, Lymphocytes (%) (Auto) 15.8L, Monocytes (%) (Auto) 8.7, Eosinophils (%) (Auto) 5.2H, Basophils (%) (Auto) 0.8, Activated Partial Thromboplast Time 34H, Sodium Level 147H, Potassium Level 3.4L, Chloride Level 110H, Carbon Dioxide Level 28, Anion Gap 9, Blood Urea Nitrogen 35H, Creatinine 5.1H, Estimat Glomerular Filtration Rate , Glucose Level 157H, Calcium Level 9.9, Phosphorus Level 3.1, Magnesium Level 2.0, Total Bilirubin 2.1H, Direct Bilirubin 1.5H, Aspartate Amino Transf (AST/SGOT) 52H, Alanine Aminotransferase (ALT/SGPT) < 6L, Alkaline Phosphatase 209H, Total Protein 6.7, Albumin 1.6L, Globulin 5.1, Albumin/ Globulin Ratio 0.3L 02/16/17 04:30: Prothrombin Time 14.6H, Prothromb Time International Ratio 1.4H 02/16/17 09:10: Arterial Blood pH 7.428, Arterial Blood Partial Pressure CO2 38.2, Arterial Blood Partial Pressure O2 71.2L, Arterial Blood HCO3 24.7, Arterial Blood Oxygen Saturation 93.0, Arterial Blood Base Excess 0.4, Bon Test Positive Height (Feet): 5 Height (Inches): 5.00 Weight (Pounds): 256 General Appearance: no apparent distress EENT: normal ENT inspection Neck: normal alignment Cardiovascular: normal rate, regular rhythm Abdomen: non tender Extremities: non-tender Edema: mild edema Skin: warm/dry Chriss Pat Feb 16, 2017 21:59
[2017-02-17] VITALS (24 sets, daily range): BP systolic 78–157; BP diastolic 35–88
[2017-02-17] MEDS: LORazepam Inj 2mg/ml 1ml IV PRN ×3 (00:59→21:07)
[2017-02-17] MEDS: NovoLOG Insulin Flexpen SUBQ SCH ×6 (01:05→21:00)
[2017-02-17 05:01] LABS: HEMATOCRIT 28.6 % (37.0-47.0); HEMOGLOBIN 8.8 G/DL (12.0-16.0); MEAN CORPUSCULAR VOLUME 101 FL (80-99); PLATELET COUNT 91 K/UL (150-450); RED BLOOD COUNT 2.84 M/UL (4.20-5.40); RED CELL DISTRIBUTION WIDTH 18.6 % (11.6-14.8); WHITE BLOOD COUNT 9.7 K/UL (4.8-10.8)
[2017-02-17 05:19] LABS: INR 1.3 (0.9-1.1)
[2017-02-17] MEDS: Midodrine 10mg tab NG SCH ×3 (05:43→21:33)
[2017-02-17 05:55] LABS: ALANINE AMINOTRANSFERASE 6 U/L (12-78); ALBUMIN/GLOBULIN RATIO 0.4 (1.0-2.7); ALKALINE PHOSPHATASE 185 U/L (46-116); ANION GAP 9 mmol/L (5-15); ASPARTATE AMINO TRANSFERASE 38 U/L (15-37); BILIRUBIN,TOTAL 2.1 MG/DL (0.2-1.0); BLOOD UREA NITROGEN 40 mg/dL (7-18); CALCIUM 10.5 MG/DL (8.5-10.1); CARBON DIOXIDE 28 MMOL/L (21-32); CHLORIDE 110 MMOL/L (98-107); CREATININE 5.4 MG/DL (0.55-1.30); PHOSPHORUS 3.5 MG/DL (2.5-4.9); SODIUM 147 MMOL/L (136-145)
[2017-02-17] MEDS ORDERED: Lidocaine 1% 10mg/ml/EPI 0.01mg/ml 50ml INJ ONE (06:58)
[2017-02-17 06:59] LABS: BILIRUBIN,DIRECT 1.5 MG/DL (0.0-0.3)
[2017-02-17] MEDS ORDERED: Sterile Water Irrig 1000ml IRRIG ONE (07:30)
[2017-02-17] MEDS ORDERED: fentaNYL 100 mcg/2 mL IV PRN (07:30)
[2017-02-17] MEDS ORDERED: Alfentanil 2ml Inj ONE (07:30)
[2017-02-17] MEDS ORDERED: Propofol 200mg/20ml IV ONE (07:30)
[2017-02-17] MEDS ORDERED: ePHEDrine 50mg/ml Inj ONE (07:30)
[2017-02-17] MEDS ORDERED: Sodium Chloride 10ml vial INJ ONE (07:30)
[2017-02-17] MEDS ORDERED: Nimbex 2mg/ml Inj 10ML IVP ONE (07:30)
[2017-02-17] MEDS ORDERED: LR 1000ml ONE (07:30)
--- NOTE | 2017-02-17 07:31 | General Progress Note ---
Progress Note Progress Note ENT Plts 91 and INR 1.3 this AM pre op. GENARO CAMPOS Feb 17, 2017 07:31
--- NOTE | 2017-02-17 07:31 | General Progress Note ---
Progress Note Progress Note ENT Plts 91 and INR 1.3 this AM pre op. GENARO CAMPOS Feb 17, 2017 07:31
--- NOTE | 2017-02-17 07:31 | General Progress Note ---
Progress Note Progress Note ENT Plts 91 and INR 1.3 this AM pre op. GENARO CAMPOS Feb 17, 2017 07:31
--- NOTE | 2017-02-17 07:31 | General Progress Note ---
Progress Note Progress Note ENT It is my understanding after discussions with Dr. Arriaza (rena) and pts daughter last week that pt is DNR if she has an event during surgery. Trach is being done for comfort and safety. Pallative care team did speak with pt daughter last month-per verbal reports from nursing staff in ICU- GENARO CAMPOS Feb 17, 2017 07:31
--- NOTE | 2017-02-17 07:34 | Anethesia Preoperative Eval ---
Anesthesia Pre-op PMH/ROS General Date of Evaluation: Feb 17, 2017 Time of Evaluation: 07:30 Anesthesiologist: Zulema ASA Score: ASA 4 Mallampati Score Class I : Soft palate, uvula, fauces, pillars visible Class II: Soft palate, uvula, fauces visible Class III: Soft palate, base of uvula visible Class IV: Only hard plate visible Mallampati Classification: Class III Surgeon: Remy Diagnosis: Respiratory failure Surgical Procedure: Tracheostomy Allergies: Coded Allergies: PENICILLINS (Unverified Allergy, Unknown, 03/22/15) Medications: see eMAR Past Medical History Cardiovascular: Reports: HTN, other - CHF Pulmonary: Reports: asthma, COPD Gastrointestinal/Genitourinary: Reports: GERD, ESRD Neurologic/Psychiatric: Reports: CVA Endocrine: Reports: DM Hematology/Immune: Reports: anemia Other: obesity PMH Narrative: HTN, CHF, CVA, DM, COPD, anemia, morbid obesity, hypokalemia Anesthesia Pre-op Phys. Exam Physician Exam Last Vital Signs Date Time Temp Pulse Resp B/P (MAP) Pulse Ox O2 Delivery O2 Flow Rate FiO2 02/17/17 07:00 94 11 110/55 97 Mechanical Ventilator 40 02/17/17 04:00 98.5 02/13/17 16:29 15.0 Constitutional: other Cardiovascular: other - Intubated, vent dependent Airway Exam Mallampati Score: Class III Anesthesia Pre-op A/P Labs Hematology Test 02/17/17 04:30 White Blood Count 9.7 K/UL (4.8-10.8) Red Blood Count 2.84 M/UL (4.20-5.40) L Hemoglobin 8.8 G/DL (12.0-16.0) L Hematocrit 28.6 % (37.0-47.0) L Mean Corpuscular Volume 101 FL (80-99) H Mean Corpuscular Hemoglobin 31.0 PG (27.0-31.0) Mean Corpuscular Hemoglobin Concent 30.7 G/DL (32.0-36.0) L Red Cell Distribution Width 18.6 % (11.6-14.8) H Platelet Count 91 K/UL (150-450) L Mean Platelet Volume 7.6 FL (6.5-10.1) Neutrophils (%) (Auto) % (45.0-75.0) Lymphocytes (%) (Auto) % (20.0-45.0) Monocytes (%) (Auto) % (1.0-10.0) Eosinophils (%) (Auto) % (0.0-3.0) Basophils (%) (Auto) % (0.0-2.0) Coagulation Test 02/17/17 04:30 Prothrombin Time 13.2 SEC (9.30-11.50) H Prothromb Time International Ratio 1.3 (0.9-1.1) H Chemistry Test 02/17/17 04:30 Sodium Level 147 MMOL/L (136-145) H Potassium Level 3.0 MMOL/L (3.5-5.1) L Chloride Level 110 MMOL/L (98-107) H Carbon Dioxide Level 28 MMOL/L (21-32) Anion Gap 9 mmol/L (5-15) Blood Urea Nitrogen 40 mg/dL (7-18) H Creatinine 5.4 MG/DL (0.55-1.30) H Estimat Glomerular Filtration Rate mL/min (>60) Glucose Level 144 MG/DL (74-106) H Calcium Level 10.5 MG/DL (8.5-10.1) H Phosphorus Level 3.5 MG/DL (2.5-4.9) Magnesium Level 2.0 MG/DL (1.8-2.4) Total Bilirubin 2.1 MG/DL (0.2-1.0) H Direct Bilirubin 1.5 MG/DL (0.0-0.3) H Aspartate Amino Transf (AST/SGOT) 38 U/L (15-37) H Alanine Aminotransferase (ALT/SGPT) 6 U/L (12-78) L Alkaline Phosphatase 185 U/L (46-116) H Total Protein 6.9 G/DL (6.4-8.2) Albumin 2.0 G/DL (3.4-5.0) L Globulin 4.9 g/dL Albumin/Globulin Ratio 0.4 (1.0-2.7) L Risk Assessment & Plan Assessment: Guarded Class 4 patient for trach Plan: GA Status Change Before Surgery: No Pre-Antibiotics Drug: Clindamycin Given Within 1 Hr of Incision: Yes Time Given: 08:05 LILLY WHITEHEAD M.D. Feb 17, 2017 07:34
[2017-02-17] MEDS ORDERED: NS Irrig 1000ml IRRIG ONE (08:00)
[2017-02-17] MEDS ORDERED: Clindamycin 600mg 50 ML IV ONE (08:17)
[2017-02-17] MEDS ORDERED: Surgicel 4in x 8in TOPIC ONE (08:25)
--- NOTE | 2017-02-17 08:55 | Brief Operative Note ---
Immediate Post Operative Note Operative Note Chief Complaint: Prolonged intubation Pre-op Diagnosis: Resp failure with prison intubation Procedure: Trach Post-op Diagnosis: same as pre-op Surgeon: Eliza Campos Patient Admitting Clerk: none Additional Surgeons: none Anesthesiologist: Lizbet Poole Anesthesia: general Specimen: none Complications: none Condition: stable Fluids: 200cc Estimated Blood Loss: volume - 30cc Drains: other Packing: Iodoform guaze Implant(s) used?: Fani Franco # 8 with cuff trash tube GENARO CAMPOS Feb 17, 2017 08:55
--- NOTE | 2017-02-17 08:55 | Brief Operative Note ---
Immediate Post Operative Note Operative Note Chief Complaint: Prolonged intubation Pre-op Diagnosis: Resp failure with snf intubation Procedure: Trach Post-op Diagnosis: same as pre-op Surgeon: Eliza Campos Museum Informatics Specialist: none Additional Surgeons: none Anesthesiologist: Lizbet Poole Anesthesia: general Specimen: none Complications: none Condition: stable Fluids: 200cc Estimated Blood Loss: volume - 30cc Drains: other Packing: Iodoform guaze Implant(s) used?: Fani Franco # 8 with cuff trash tube GENARO CAMPOS Feb 17, 2017 08:55
--- NOTE | 2017-02-17 08:55 | Brief Operative Note ---
Immediate Post Operative Note Operative Note Chief Complaint: Prolonged intubation Pre-op Diagnosis: Resp failure with residential intubation Procedure: Trach Post-op Diagnosis: same as pre-op Surgeon: Eliza Campos Laboratory Development Technician: none Additional Surgeons: none Anesthesiologist: Lizbet Poole Anesthesia: general Specimen: none Complications: none Condition: stable Fluids: 200cc Estimated Blood Loss: volume - 30cc Drains: other Packing: Iodoform guaze Implant(s) used?: Fani Franco # 8 with cuff trash tube GENARO CAMPOS Feb 17, 2017 08:55
--- NOTE | 2017-02-17 08:58 | Immediate Post-Op Evaluation ---
Immediate Post-Op Evalulation Immediate Post-Op Evalulation Procedure: EGD, PEG Date of Evaluation: Feb 17, 2017 Time of Evaluation: 09:00 IV Fluids: 200 Blood Pressure Systolic: 87 Blood Pressure Diastolic: 35 Pulse Rate: 101 Respiratory Rate: 20 O2 Sat by Pulse Oximetry: 99 Pain Score (1-10): 0 Nausea: No Vomiting: No Complications No complication Patient Status: no response, ventilated, none Hydration Status: adequate Drug: Clindamycin Given Within 1 Hr of Incision: Yes Time Given: 08:05 LILLY WHITEHEAD M.D. Feb 17, 2017 08:58
[2017-02-17] MEDS: Nystatin Powder 100,000 units/gm 15gm TOPIC SCH ×3 (09:37→17:52)
--- NOTE | 2017-02-17 10:43 | Cardiac Electrophysiology PN ---
Assessment/Plan Assessment/Plan 1. CHF due to diastolic dysfunction, EF 60 %. On dialysis. 2. S/P Shock, resolved.Off pressors 3. Bradycardia resolved, off dopamine. On midodrine 5 tid 4. Vent dependent respiratory failure. Self extubated on 02/04 and was reintubated Tracheostomy done today 02/17/17. 5. Hyperlipidemia. 6. Cirrhosis 7. Anemia with hemoglobin of 8. 8. Hypernatremia Na still 150 9. DNR 10. ESRD on HD. Perm Cath? 11. DM 12. Dysphagia, S/P PEG 02/12/17 DW RN Subjective Subjective In ICU on Vent off pressors. Had Tracheostomy today. Had 4 units of FFP yesterday and will be getting 1 unit today.Dialysis today also pending Objective Last 24 Hour Vital Signs Date Time Temp Pulse Resp B/P (MAP) Pulse Ox O2 Delivery O2 Flow Rate FiO2 02/17/17 10:00 90 20 103/47 96 Mechanical Ventilator 40 02/17/17 09:00 98.3 94 20 78/39 97 Mechanical Ventilator 40 02/17/17 08:58 101 20 99 02/17/17 08:50 88 20 40 02/17/17 08:00 40 02/17/17 07:00 94 11 110/55 97 Mechanical Ventilator 40 02/17/17 06:44 96 20 40 02/17/17 06:00 100 13 157/55 96 Mechanical Ventilator 40 02/17/17 05:00 117 28 155/43 95 Mechanical Ventilator 40 02/17/17 04:58 121 21 40 02/17/17 04:00 98.5 114 26 156/51 95 Mechanical Ventilator 40 02/17/17 04:00 40 02/17/17 04:00 113 02/17/17 03:30 97 21 40 02/17/17 03:00 113 24 157/44 96 Mechanical Ventilator 40 02/17/17 02:00 109 28 155/57 95 Mechanical Ventilator 40 02/17/17 01:30 94 22 40 02/17/17 01:00 107 21 153/59 97 Mechanical Ventilator 40 02/17/17 00:00 40 02/17/17 00:00 98.2 106 28 144/82 97 Mechanical Ventilator 40 02/17/17 00:00 103 02/16/17 23:30 97 20 40 02/16/17 23:00 103 21 143/72 97 Mechanical Ventilator 40 02/16/17 22:00 99 18 133/69 97 Mechanical Ventilator 40 02/16/17 21:27 104 21 Mechanical Ventilator 40 02/16/17 21:16 80 20 40 02/16/17 21:00 76 14 123/52 100 Mechanical Ventilator 40 02/16/17 20:00 40 02/16/17 20:00 97.5 86 20 140/88 99 Mechanical Ventilator 40 02/16/17 20:00 86 02/16/17 19:30 78 20 40 02/16/17 19:00 99 16 112/61 100 Mechanical Ventilator 40 02/16/17 17:58 97.3 99 20 148/55 99 Mechanical Ventilator 40 02/16/17 17:21 98 22 40 02/16/17 17:00 97 20 133/58 98 Mechanical Ventilator 40 02/16/17 16:00 97.3 85 16 121/57 100 Mechanical Ventilator 40 02/16/17 16:00 40 02/16/17 16:00 101 02/16/17 15:02 99 20 40 02/16/17 15:01 103 16 115/61 98 Mechanical Ventilator 40 02/16/17 14:00 101 20 82/63 100 Mechanical Ventilator 40 02/16/17 13:13 109 20 40 02/16/17 13:00 20 133/50 98 Mechanical Ventilator 40 02/16/17 12:00 40 02/16/17 12:00 123 02/16/17 12:00 97.7 117 18 120/59 99 Mechanical Ventilator 40 02/16/17 11:15 134/61 02/16/17 11:10 120 22 40 02/16/17 11:00 116 24 134/61 98 Mechanical Ventilator 40 Intake and Output 02/17/17 02/18/17 19:00 07:00 Intake Total 120 ml Balance 120 ml Other 120 ml Laboratory Tests Test 02/17/17 04:30 02/17/17 06:44 White Blood Count 9.7 K/UL (4.8-10.8) Red Blood Count 2.84 M/UL (4.20-5.40) L Hemoglobin 8.8 G/DL (12.0-16.0) L Hematocrit 28.6 % (37.0-47.0) L Mean Corpuscular Volume 101 FL (80-99) H Mean Corpuscular Hemoglobin 31.0 PG (27.0-31.0) Mean Corpuscular Hemoglobin Concent 30.7 G/DL (32.0-36.0) L Red Cell Distribution Width 18.6 % (11.6-14.8) H Platelet Count 91 K/UL (150-450) L Mean Platelet Volume 7.6 FL (6.5-10.1) Neutrophils (%) (Auto) % (45.0-75.0) Lymphocytes (%) (Auto) % (20.0-45.0) Monocytes (%) (Auto) % (1.0-10.0) Eosinophils (%) (Auto) % (0.0-3.0) Basophils (%) (Auto) % (0.0-2.0) Prothrombin Time 13.2 SEC (9.30-11.50) H Prothromb Time International Ratio 1.3 (0.9-1.1) H Sodium Level 147 MMOL/L (136-145) H Potassium Level 3.0 MMOL/L (3.5-5.1) L Chloride Level 110 MMOL/L (98-107) H Carbon Dioxide Level 28 MMOL/L (21-32) Anion Gap 9 mmol/L (5-15) Blood Urea Nitrogen 40 mg/dL (7-18) H Creatinine 5.4 MG/DL (0.55-1.30) H Estimat Glomerular Filtration Rate mL/min (>60) Glucose Level 144 MG/DL (74-106) H Calcium Level 10.5 MG/DL (8.5-10.1) H Phosphorus Level 3.5 MG/DL (2.5-4.9) Magnesium Level 2.0 MG/DL (1.8-2.4) Total Bilirubin 2.1 MG/DL (0.2-1.0) H Direct Bilirubin 1.5 MG/DL (0.0-0.3) H Aspartate Amino Transf (AST/SGOT) 38 U/L (15-37) H Alanine Aminotransferase (ALT/SGPT) 6 U/L (12-78) L Alkaline Phosphatase 185 U/L (46-116) H Total Protein 6.9 G/DL (6.4-8.2) Albumin 2.0 G/DL (3.4-5.0) L Globulin 4.9 g/dL Albumin/Globulin Ratio 0.4 (1.0-2.7) L Arterial Blood pH 7.447 (7.350-7.450) Arterial Blood Partial Pressure CO2 40.7 mmHg (35.0-45.0) Arterial Blood Partial Pressure O2 69.6 mmHg (75.0-100.0) L Arterial Blood HCO3 27.5 mmol/L (22.0-26.0) H Arterial Blood Oxygen Saturation 93.4 % (92.0-98.0) Arterial Blood Base Excess 3.2 Bon Test Positive Objective HEAD AND NECK: No JVD. Right IJ Mahurkar Catheter in place. S/P Tracheostomy. LUNGS: Coarse rhonchi CARDIOVASCULAR: Regular S1 and S2 with no gallop or murmur. ABDOMEN: Soft and nontender and obese.PEG in place EXTREMITIES: 1+ pitting edema. DEAN SHAW Feb 17, 2017 10:43
[2017-02-17] MEDS: DOPamine 400mg/250ml 250 ML IV SCH (11:07)
--- NOTE | 2017-02-17 12:00 | Pulmonolgy Critical Care Note ---
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 Respiratory: monitor respiratory rate, adjust FIO2, ABG Cardiac: continue to monitor HR/BP Renal: F/U I&O Infectious Disease: check cultures, continue antibiotics Gastrointestinal: continue feedings/current rate Endocrine: monitor blood sugar, continue sliding scale insulin Hematologic: monitor H/H, transfuse if hgb<8.5 Neurologic: PRN Ativan, keep patient comfortable Affect: PRN ativan Prophylaxis: Protonix Notes Reviewed: cartridge loader, cardio Discussed with: nurses, consultants, supervisor case loadinginformatics manager - Objective Last 24 Hour Vital Signs Date Time Temp Pulse Resp B/P (MAP) Pulse Ox O2 Delivery O2 Flow Rate FiO2 02/17/17 11:18 Mechanical Ventilator 15.0 40 02/17/17 11:00 91 19 126/48 99 Mechanical Ventilator 40 02/17/17 10:33 90 20 40 02/17/17 10:00 90 20 103/47 96 Mechanical Ventilator 40 02/17/17 09:00 98.3 94 20 78/39 97 Mechanical Ventilator 40 02/17/17 08:58 101 20 99 02/17/17 08:50 88 20 40 02/17/17 08:00 40 02/17/17 07:00 94 11 110/55 97 Mechanical Ventilator 40 02/17/17 06:44 96 20 40 02/17/17 06:00 100 13 157/55 96 Mechanical Ventilator 40 02/17/17 05:00 117 28 155/43 95 Mechanical Ventilator 40 02/17/17 04:58 121 21 40 02/17/17 04:00 98.5 114 26 156/51 95 Mechanical Ventilator 40 02/17/17 04:00 40 02/17/17 04:00 113 02/17/17 03:30 97 21 40 02/17/17 03:00 113 24 157/44 96 Mechanical Ventilator 40 02/17/17 02:00 109 28 155/57 95 Mechanical Ventilator 40 02/17/17 01:30 94 22 40 02/17/17 01:00 107 21 153/59 97 Mechanical Ventilator 40 02/17/17 00:00 40 02/17/17 00:00 98.2 106 28 144/82 97 Mechanical Ventilator 40 02/17/17 00:00 103 02/16/17 23:30 97 20 40 02/16/17 23:00 103 21 143/72 97 Mechanical Ventilator 40 02/16/17 22:00 99 18 133/69 97 Mechanical Ventilator 40 02/16/17 21:27 104 21 Mechanical Ventilator 40 02/16/17 21:16 80 20 40 02/16/17 21:00 76 14 123/52 100 Mechanical Ventilator 40 02/16/17 20:00 40 02/16/17 20:00 97.5 86 20 140/88 99 Mechanical Ventilator 40 02/16/17 20:00 86 02/16/17 19:30 78 20 40 02/16/17 19:00 99 16 112/61 100 Mechanical Ventilator 40 02/16/17 17:58 97.3 99 20 148/55 99 Mechanical Ventilator 40 02/16/17 17:21 98 22 40 02/16/17 17:00 97 20 133/58 98 Mechanical Ventilator 40 02/16/17 16:00 97.3 85 16 121/57 100 Mechanical Ventilator 40 02/16/17 16:00 40 02/16/17 16:00 101 02/16/17 15:02 99 20 40 02/16/17 15:01 103 16 115/61 98 Mechanical Ventilator 40 02/16/17 14:00 101 20 82/63 100 Mechanical Ventilator 40 02/16/17 13:13 109 20 40 02/16/17 13:00 20 133/50 98 Mechanical Ventilator 40 02/16/17 12:00 40 02/16/17 12:00 123 02/16/17 12:00 97.7 117 18 120/59 99 Mechanical Ventilator 40 Status: awake Condition: critical HEENT: atraumatic Lungs: clear Heart: HR/BP stable, HR/BP unstable, regular Abdomen: non-tender, active bowel sounds, feeding tube Micro: Microbiology Date/Time Source Procedure Growth Status 02/16/17 13:00 Sputum Gram Stain - Final Resulted 02/16/17 13:00 Sputum Sputum Culture Pending Resulted Accucheck: 138 Critical Care - Subjective ROS Limited/Unobtainable: Yes Condition: critical, stable EKG Rhythm: Sinus Rhythm FI02: 40 Vent Support Breath Rate: 20 Vent Support Mode: AC Vent Tidal Volume: 650 Sputum Amount: Small PEEP: 0.0 PIP: 46 Tube Feeding Amount: 35 I&O: Intake and Output 02/17/17 02/18/17 19:00 07:00 Intake Total 120 ml Balance 120 ml Other 120 ml CXR: pulmonary edema ET-Tube: 7.0 ET Position: 22 Labs: Laboratory Tests Test 02/17/17 04:30 02/17/17 06:44 White Blood Count 9.7 K/UL (4.8-10.8) Red Blood Count 2.84 M/UL (4.20-5.40) L Hemoglobin 8.8 G/DL (12.0-16.0) L Hematocrit 28.6 % (37.0-47.0) L Mean Corpuscular Volume 101 FL (80-99) H Mean Corpuscular Hemoglobin 31.0 PG (27.0-31.0) Mean Corpuscular Hemoglobin Concent 30.7 G/DL (32.0-36.0) L Red Cell Distribution Width 18.6 % (11.6-14.8) H Platelet Count 91 K/UL (150-450) L Mean Platelet Volume 7.6 FL (6.5-10.1) Neutrophils (%) (Auto) % (45.0-75.0) Lymphocytes (%) (Auto) % (20.0-45.0) Monocytes (%) (Auto) % (1.0-10.0) Eosinophils (%) (Auto) % (0.0-3.0) Basophils (%) (Auto) % (0.0-2.0) Prothrombin Time 13.2 SEC (9.30-11.50) H Prothromb Time International Ratio 1.3 (0.9-1.1) H Sodium Level 147 MMOL/L (136-145) H Potassium Level 3.0 MMOL/L (3.5-5.1) L Chloride Level 110 MMOL/L (98-107) H Carbon Dioxide Level 28 MMOL/L (21-32) Anion Gap 9 mmol/L (5-15) Blood Urea Nitrogen 40 mg/dL (7-18) H Creatinine 5.4 MG/DL (0.55-1.30) H Estimat Glomerular Filtration Rate mL/min (>60) Glucose Level 144 MG/DL (74-106) H Calcium Level 10.5 MG/DL (8.5-10.1) H Phosphorus Level 3.5 MG/DL (2.5-4.9) Magnesium Level 2.0 MG/DL (1.8-2.4) Total Bilirubin 2.1 MG/DL (0.2-1.0) H Direct Bilirubin 1.5 MG/DL (0.0-0.3) H Aspartate Amino Transf (AST/SGOT) 38 U/L (15-37) H Alanine Aminotransferase (ALT/SGPT) 6 U/L (12-78) L Alkaline Phosphatase 185 U/L (46-116) H Total Protein 6.9 G/DL (6.4-8.2) Albumin 2.0 G/DL (3.4-5.0) L Globulin 4.9 g/dL Albumin/Globulin Ratio 0.4 (1.0-2.7) L Arterial Blood pH 7.447 (7.350-7.450) Arterial Blood Partial Pressure CO2 40.7 mmHg (35.0-45.0) Arterial Blood Partial Pressure O2 69.6 mmHg (75.0-100.0) L Arterial Blood HCO3 27.5 mmol/L (22.0-26.0) H Arterial Blood Oxygen Saturation 93.4 % (92.0-98.0) Arterial Blood Base Excess 3.2 Bon Test Positive DIONI TRIANA Feb 17, 2017 12:00
--- NOTE | 2017-02-17 13:03 | Infectious Diseases Prog Note ---
Assessment/Plan Assessment/Plan Assesment: Acute respiratory failure 2ry to hypercapnea, PNA; now ARDS - self-extubated, re -intubated 02/04 -CXR 02/14: Cardiomegaly with improving pulmonary aeration. Mild to moderate pulmonary edema/ARDS or multifocal pneumonia with trace effusions remain; Sepsis 2ry to PNA and Bacteremia, SP HCAP 2ry to ESBL. E.coli, s/p Rx -CXR 02/08: . Extensive bilateral mixed interstitial alveolar lung opacities again noted. -CXR 02/02: Diffuse extensive interstitial and alveolar pulmonary parenchymal disease is unchanged. -repeat sp cx 01/26: +4 MDR A.baumani (I Ceftazidime, R to carbapenem and aminoglycosides, Minocycline; S to Colistin, Polymyxin B) suspect Colonizer ( improving not on tx)-s/p INH Colistin Tx -Sp cx 01/22: +2 ESBK E.coli, +2 C. albicans (colonizer) -CrAg neg, cocci ab pending MRSA bacteremia- with repeat Bcx growing CoNS (?contaminant vs real). BCx cleared 01/26 SP Rx -01/16 04/23 BCx MRSA (S. Vanco JOSE A 1), repeat Bcx 01/19 Neg, 01/21 04/23 CoNS ( contaminant), 01/24 Bcx 04/23 CoNs, Bcx 01/26 Neg x4, 01/28 BCx neg -TTE 01/19(limited study): No aortic regurgitation.Trace mitral regurgitation.Mitral diastolic velocities suggest reduced left ventricular relaxation c/w diastolic dysfunction grade. Moderate tricuspid regurgitation. Leukocytosis, SP Elevated LFTs, improving -[place]uet hep panel neg Probable MDR UTI, pyuria, s/p Rx -u/a 01/16 WBC too many to count,nit neg ,leuk est +3; UCx x3 grew >100K MDR A.baumani complex (S. tigecycline/Minocycline, Polymixin B/Colistin), >100K PsA (S. Cefepime, Zosyn; R Cipro/Levo); a prior isolated on a ucx from the same day isolated MDR PsA (I. Cefepime, R ceftzadime, Meropenem; S. Tygecicine, amikacin) -renal u/s: Nondiagnostic exam RAMYA on CKD, started on HD 01/28 Encephalopathy- possibly multifactorial- hepatic encephalopathy, infection- worsening now due to hypercapnea (transferred to ICU 01/21), on bipap> intubated Cirrhosis Anemia & thrombocytopenia DM type 2 Morbid obesity DNR PLAN: -Continue to monitor off abx unless febrile, HD unstable -s/p 7d IV Vancomcyin 02/11 -s/p 18d prophylatic PO Vanco 02/09 -s/p 19d Ertapenem 02/09 -s/p 10d INH Colistin 02/07 for MDR ABC in sputum -02/03 s/p IV Vancomycin #15/14 -s/p 1 dose Amikacin 01/28 -s/p 7d Cefepime 10 -s/p 3d Amikacin 01/24 -s/p 7d Minocycline 10 -s/p 3d IV vanco 10 -f/u cocci ab -Repeat cultures monitor CBC, temperatures monitor BMP monitor CXR vent support, trach eventually Subjective Allergies: Coded Allergies: PENICILLINS (Unverified Allergy, Unknown, 03/22/15) Objective Vital Signs Last 24 Hour Vital Signs Date Time Temp Pulse Resp B/P (MAP) Pulse Ox O2 Delivery O2 Flow Rate FiO2 02/17/17 12:43 89 20 40 02/17/17 12:00 40 02/17/17 12:00 97.4 84 23 106/48 99 Mechanical Ventilator 40 02/17/17 12:00 87 02/17/17 11:18 Mechanical Ventilator 15.0 40 02/17/17 11:00 91 19 126/48 99 Mechanical Ventilator 40 02/17/17 10:33 90 20 40 02/17/17 10:00 90 20 103/47 96 Mechanical Ventilator 40 02/17/17 09:00 98.3 94 20 78/39 97 Mechanical Ventilator 40 02/17/17 08:58 101 20 99 02/17/17 08:50 88 20 40 02/17/17 08:00 40 02/17/17 08:00 97 02/17/17 07:00 94 11 110/55 97 Mechanical Ventilator 40 02/17/17 06:44 96 20 40 02/17/17 06:00 100 13 157/55 96 Mechanical Ventilator 40 02/17/17 05:00 117 28 155/43 95 Mechanical Ventilator 40 02/17/17 04:58 121 21 40 02/17/17 04:00 98.5 114 26 156/51 95 Mechanical Ventilator 40 02/17/17 04:00 40 02/17/17 04:00 113 02/17/17 03:30 97 21 40 02/17/17 03:00 113 24 157/44 96 Mechanical Ventilator 40 02/17/17 02:00 109 28 155/57 95 Mechanical Ventilator 40 02/17/17 01:30 94 22 40 02/17/17 01:00 107 21 153/59 97 Mechanical Ventilator 40 02/17/17 00:00 40 02/17/17 00:00 98.2 106 28 144/82 97 Mechanical Ventilator 40 02/17/17 00:00 103 02/16/17 23:30 97 20 40 02/16/17 23:00 103 21 143/72 97 Mechanical Ventilator 40 02/16/17 22:00 99 18 133/69 97 Mechanical Ventilator 40 02/16/17 21:27 104 21 Mechanical Ventilator 40 02/16/17 21:16 80 20 40 02/16/17 21:00 76 14 123/52 100 Mechanical Ventilator 40 02/16/17 20:00 40 02/16/17 20:00 97.5 86 20 140/88 99 Mechanical Ventilator 40 02/16/17 20:00 86 02/16/17 19:30 78 20 40 02/16/17 19:00 99 16 112/61 100 Mechanical Ventilator 40 02/16/17 17:58 97.3 99 20 148/55 99 Mechanical Ventilator 40 02/16/17 17:21 98 22 40 02/16/17 17:00 97 20 133/58 98 Mechanical Ventilator 40 02/16/17 16:00 97.3 85 16 121/57 100 Mechanical Ventilator 40 02/16/17 16:00 40 02/16/17 16:00 101 02/16/17 15:02 99 20 40 02/16/17 15:01 103 16 115/61 98 Mechanical Ventilator 40 02/16/17 14:00 101 20 82/63 100 Mechanical Ventilator 40 02/16/17 13:13 109 20 40 Height (Feet): 5 Height (Inches): 5.00 Weight (Pounds): 256 HEENT: anicteric Respiratory/Chest: normal breath sounds Cardiovascular: regular rhythm Abdomen: soft, non tender Microbiology Date/Time Source Procedure Growth Status 02/16/17 13:00 Sputum Gram Stain - Final Resulted 02/16/17 13:00 Sputum Sputum Culture Pending Resulted Laboratory Tests Test 02/17/17 04:30 02/17/17 06:44 White Blood Count 9.7 K/UL (4.8-10.8) Red Blood Count 2.84 M/UL (4.20-5.40) L Hemoglobin 8.8 G/DL (12.0-16.0) L Hematocrit 28.6 % (37.0-47.0) L Mean Corpuscular Volume 101 FL (80-99) H Mean Corpuscular Hemoglobin 31.0 PG (27.0-31.0) Mean Corpuscular Hemoglobin Concent 30.7 G/DL (32.0-36.0) L Red Cell Distribution Width 18.6 % (11.6-14.8) H Platelet Count 91 K/UL (150-450) L Mean Platelet Volume 7.6 FL (6.5-10.1) Neutrophils (%) (Auto) % (45.0-75.0) Lymphocytes (%) (Auto) % (20.0-45.0) Monocytes (%) (Auto) % (1.0-10.0) Eosinophils (%) (Auto) % (0.0-3.0) Basophils (%) (Auto) % (0.0-2.0) Prothrombin Time 13.2 SEC (9.30-11.50) H Prothromb Time International Ratio 1.3 (0.9-1.1) H Sodium Level 147 MMOL/L (136-145) H Potassium Level 3.0 MMOL/L (3.5-5.1) L Chloride Level 110 MMOL/L (98-107) H Carbon Dioxide Level 28 MMOL/L (21-32) Anion Gap 9 mmol/L (5-15) Blood Urea Nitrogen 40 mg/dL (7-18) H Creatinine 5.4 MG/DL (0.55-1.30) H Estimat Glomerular Filtration Rate mL/min (>60) Glucose Level 144 MG/DL (74-106) H Calcium Level 10.5 MG/DL (8.5-10.1) H Phosphorus Level 3.5 MG/DL (2.5-4.9) Magnesium Level 2.0 MG/DL (1.8-2.4) Total Bilirubin 2.1 MG/DL (0.2-1.0) H Direct Bilirubin 1.5 MG/DL (0.0-0.3) H Aspartate Amino Transf (AST/SGOT) 38 U/L (15-37) H Alanine Aminotransferase (ALT/SGPT) 6 U/L (12-78) L Alkaline Phosphatase 185 U/L (46-116) H Total Protein 6.9 G/DL (6.4-8.2) Albumin 2.0 G/DL (3.4-5.0) L Globulin 4.9 g/dL Albumin/Globulin Ratio 0.4 (1.0-2.7) L Arterial Blood pH 7.447 (7.350-7.450) Arterial Blood Partial Pressure CO2 40.7 mmHg (35.0-45.0) Arterial Blood Partial Pressure O2 69.6 mmHg (75.0-100.0) L Arterial Blood HCO3 27.5 mmol/L (22.0-26.0) H Arterial Blood Oxygen Saturation 93.4 % (92.0-98.0) Arterial Blood Base Excess 3.2 Bon Test Positive Current Medications Medications (Trade) Dose Ordered Sig/Pavel Route PRN Reason Start Time Stop Time Status Last Admin Dose Admin Chlorhexidine Gluconate (Dianne-Hex 2%) 1 applic DAILY@1999 TOPIC 01/25/17 20:00 02/24/17 19:59 02/16/17 20:02 Clotrimazole (Lotrimin) 1 applic EVERY 12 HOURS TOPIC 01/21/17 21:00 02/18/17 13:59 02/17/17 09:37 Dextrose (Dextrose 50%) STAT PRN IV Hypoglycemia 02/06/17 10:45 03/08/17 10:44 Dopamine HCl/ Dextrose 250 ml @ 0 mls/hr Q24H IV 01/25/17 11:15 02/24/17 11:14 02/13/17 16:29 Fentanyl Citrate (Sublimaze 100 mcg/2 mL) 25 mcg Q10M PRN IV Moderate Pain (Pain Scale 4-6) 02/17/17 07:30 02/17/17 14:30 Insulin Aspart (NovoLOG) EVERY 4 HOURS SUBQ 02/06/17 12:00 03/08/17 11:59 02/17/17 09:44 Lorazepam (Ativan 2mg/ml 1ml) 2 mg Q2HR PRN IV For Anxiety 02/14/17 09:00 02/21/17 07:59 02/17/17 03:20 Metoclopramide HCl (Reglan) 5 mg Q8H PRN IVP Nausea & Vomiting 01/29/17 11:30 02/28/17 11:29 01/31/17 11:46 Midodrine (Pro-Amatine) 10 mg Q8HR NG 02/03/17 14:00 03/05/17 13:59 02/16/17 14:37 Nystatin (Nystop Powder) 1 applic THREE TIMES A DAY TOPIC 01/22/17 13:00 02/21/17 12:59 02/17/17 09:37 Ondansetron HCl (Zofran) 4 mg Q1H PRN IVP Nausea & Vomiting 02/17/17 07:30 02/17/17 14:30 Ranitidine HCl (Zantac) 150 mg DAILY NG 02/03/17 18:00 03/05/17 17:59 02/17/17 09:36 Rifaximin (Xifaxan) 550 mg EVERY 12 HOURS ORAL 01/29/17 12:00 03/07/17 11:59 02/17/17 09:36 LYLA ROJAS M.D. Feb 17, 2017 13:03
--- NOTE | 2017-02-17 13:39 | General Progress Note ---
Assessment/Plan Assessment/Plan encephalopathy agitation Subjective Allergies: Coded Allergies: PENICILLINS (Unverified Allergy, Unknown, 03/22/15) Subjective lethargic agitated this afternoon Objective Last 24 Hour Vital Signs Date Time Temp Pulse Resp B/P (MAP) Pulse Ox O2 Delivery O2 Flow Rate FiO2 02/17/17 13:00 89 20 95/40 89 Mechanical Ventilator 40 02/17/17 12:43 89 20 40 02/17/17 12:00 40 02/17/17 12:00 97.4 84 23 106/48 99 Mechanical Ventilator 40 02/17/17 12:00 87 02/17/17 11:18 Mechanical Ventilator 15.0 40 02/17/17 11:00 91 19 126/48 99 Mechanical Ventilator 40 02/17/17 10:33 90 20 40 02/17/17 10:00 90 20 103/47 96 Mechanical Ventilator 40 02/17/17 09:00 98.3 94 20 78/39 97 Mechanical Ventilator 40 02/17/17 08:58 101 20 99 02/17/17 08:50 88 20 40 02/17/17 08:00 40 02/17/17 08:00 97 02/17/17 07:00 94 11 110/55 97 Mechanical Ventilator 40 02/17/17 06:44 96 20 40 02/17/17 06:00 100 13 157/55 96 Mechanical Ventilator 40 02/17/17 05:00 117 28 155/43 95 Mechanical Ventilator 40 02/17/17 04:58 121 21 40 02/17/17 04:00 98.5 114 26 156/51 95 Mechanical Ventilator 40 02/17/17 04:00 40 02/17/17 04:00 113 02/17/17 03:30 97 21 40 02/17/17 03:00 113 24 157/44 96 Mechanical Ventilator 40 02/17/17 02:00 109 28 155/57 95 Mechanical Ventilator 40 02/17/17 01:30 94 22 40 02/17/17 01:00 107 21 153/59 97 Mechanical Ventilator 40 02/17/17 00:00 40 02/17/17 00:00 98.2 106 28 144/82 97 Mechanical Ventilator 40 02/17/17 00:00 103 02/16/17 23:30 97 20 40 02/16/17 23:00 103 21 143/72 97 Mechanical Ventilator 40 02/16/17 22:00 99 18 133/69 97 Mechanical Ventilator 40 02/16/17 21:27 104 21 Mechanical Ventilator 40 02/16/17 21:16 80 20 40 02/16/17 21:00 76 14 123/52 100 Mechanical Ventilator 40 02/16/17 20:00 40 02/16/17 20:00 97.5 86 20 140/88 99 Mechanical Ventilator 40 02/16/17 20:00 86 02/16/17 19:30 78 20 40 02/16/17 19:00 99 16 112/61 100 Mechanical Ventilator 40 02/16/17 17:58 97.3 99 20 148/55 99 Mechanical Ventilator 40 02/16/17 17:21 98 22 40 02/16/17 17:00 97 20 133/58 98 Mechanical Ventilator 40 02/16/17 16:00 97.3 85 16 121/57 100 Mechanical Ventilator 40 02/16/17 16:00 40 02/16/17 16:00 101 02/16/17 15:02 99 20 40 02/16/17 15:01 103 16 115/61 98 Mechanical Ventilator 40 02/16/17 14:00 101 20 82/63 100 Mechanical Ventilator 40 Intake and Output 02/17/17 02/18/17 19:00 07:00 Intake Total 334 ml Balance 334 ml Blood Product 214 ml Other 120 ml Laboratory Tests 02/17/17 04:30: White Blood Count 9.7, Red Blood Count 2.84L, Hemoglobin 8.8L, Hematocrit 28.6L , Mean Corpuscular Volume 101H, Mean Corpuscular Hemoglobin 31.0, Mean Corpuscular Hemoglobin Concent 30.7L, Red Cell Distribution Width 18.6H, Platelet Count 91L, Mean Platelet Volume 7.6, Neutrophils (%) (Auto) , Lymphocytes (%) (Auto) , Monocytes (%) (Auto) , Eosinophils (%) (Auto) , Basophils (%) (Auto) , Prothrombin Time 13.2H, Prothromb Time International Ratio 1.3H, Sodium Level 147H, Potassium Level 3.0L, Chloride Level 110H, Carbon Dioxide Level 28, Anion Gap 9, Blood Urea Nitrogen 40H, Creatinine 5.4H, Estimat Glomerular Filtration Rate , Glucose Level 144H, Calcium Level 10.5H, Phosphorus Level 3.5, Magnesium Level 2.0, Total Bilirubin 2.1H, Direct Bilirubin 1.5H, Aspartate Amino Transf (AST/SGOT) 38H, Alanine Aminotransferase (ALT/SGPT) 6L, Alkaline Phosphatase 185H, Total Protein 6.9, Albumin 2.0L, Globulin 4.9, Albumin/Globulin Ratio 0.4L 02/17/17 06:44: Arterial Blood pH 7.447, Arterial Blood Partial Pressure CO2 40.7, Arterial Blood Partial Pressure O2 69.6L, Arterial Blood HCO3 27.5H, Arterial Blood Oxygen Saturation 93.4, Arterial Blood Base Excess 3.2, Bon Test Positive Height (Feet): 5 Height (Inches): 5.00 Weight (Pounds): 256 Oj Medel M.D. Feb 17, 2017 13:39
--- NOTE | 2017-02-17 15:43 | General Progress Note ---
Assessment/Plan Status: stable Status Narrative had dialysis- Had trach Assessment/Plan Acute on chronic renal failure- multifactorial CHF DM HTN Sepsis Now: Acute respiratory failure- Intubated - Altered level of consciousness - ESBL (extended spectrum beta-lactamase) producing bacteria infection - Cardiomegaly - DM (diabetes mellitus) - HTN (hypertension) - UTI (urinary tract infection) - Anemia - High Cholestrol - COPD - YELENA - Fatty liver Plan: trach 02/17 HD 02/17 K supplement today K & Phos supplement as needed On midodrine Transfuse as needed, Optimize cardiac and pulmonary status 2D echo results noted avoid nephrotoxics monitor renal parameters and lytes Urine studies per orders poor prognosis Subjective ROS Limited/Unobtainable: Yes Allergies: Coded Allergies: PENICILLINS (Unverified Allergy, Unknown, 03/22/15) Objective Last 24 Hour Vital Signs Date Time Temp Pulse Resp B/P (MAP) Pulse Ox O2 Delivery O2 Flow Rate FiO2 02/17/17 15:35 88 20 106/88 Mechanical Ventilator 40 02/17/17 15:00 84 21 106/41 99 Mechanical Ventilator 40 02/17/17 14:44 92 20 40 02/17/17 14:00 84 20 80/35 97 Mechanical Ventilator 40 02/17/17 13:00 89 20 95/40 89 Mechanical Ventilator 40 02/17/17 12:43 89 20 40 02/17/17 12:00 40 02/17/17 12:00 97.4 84 23 106/48 99 Mechanical Ventilator 40 02/17/17 12:00 87 02/17/17 11:18 Mechanical Ventilator 15.0 40 02/17/17 11:00 91 19 126/48 99 Mechanical Ventilator 40 02/17/17 10:33 90 20 40 02/17/17 10:00 90 20 103/47 96 Mechanical Ventilator 40 02/17/17 09:00 98.3 94 20 78/39 97 Mechanical Ventilator 40 02/17/17 08:58 101 20 99 02/17/17 08:50 88 20 40 02/17/17 08:00 40 02/17/17 08:00 97 02/17/17 07:00 94 11 110/55 97 Mechanical Ventilator 40 02/17/17 06:44 96 20 40 02/17/17 06:00 100 13 157/55 96 Mechanical Ventilator 40 02/17/17 05:00 117 28 155/43 95 Mechanical Ventilator 40 02/17/17 04:58 121 21 40 02/17/17 04:00 98.5 114 26 156/51 95 Mechanical Ventilator 40 02/17/17 04:00 40 02/17/17 04:00 113 02/17/17 03:30 97 21 40 02/17/17 03:00 113 24 157/44 96 Mechanical Ventilator 40 02/17/17 02:00 109 28 155/57 95 Mechanical Ventilator 40 02/17/17 01:30 94 22 40 02/17/17 01:00 107 21 153/59 97 Mechanical Ventilator 40 02/17/17 00:00 40 02/17/17 00:00 98.2 106 28 144/82 97 Mechanical Ventilator 40 02/17/17 00:00 103 02/16/17 23:30 97 20 40 02/16/17 23:00 103 21 143/72 97 Mechanical Ventilator 40 02/16/17 22:00 99 18 133/69 97 Mechanical Ventilator 40 02/16/17 21:27 104 21 Mechanical Ventilator 40 02/16/17 21:16 80 20 40 02/16/17 21:00 76 14 123/52 100 Mechanical Ventilator 40 02/16/17 20:00 40 02/16/17 20:00 97.5 86 20 140/88 99 Mechanical Ventilator 40 02/16/17 20:00 86 02/16/17 19:30 78 20 40 02/16/17 19:00 99 16 112/61 100 Mechanical Ventilator 40 02/16/17 17:58 97.3 99 20 148/55 99 Mechanical Ventilator 40 02/16/17 17:21 98 22 40 02/16/17 17:00 97 20 133/58 98 Mechanical Ventilator 40 02/16/17 16:00 97.3 85 16 121/57 100 Mechanical Ventilator 40 02/16/17 16:00 40 02/16/17 16:00 101 Intake and Output 02/17/17 02/18/17 19:00 07:00 Intake Total 334 ml Output Total 335 ml Balance -1 ml Blood Product 214 ml Other 120 ml Hemodialysis UF 335 ml Laboratory Tests 02/17/17 04:30: White Blood Count 9.7, Red Blood Count 2.84L, Hemoglobin 8.8L, Hematocrit 28.6L , Mean Corpuscular Volume 101H, Mean Corpuscular Hemoglobin 31.0, Mean Corpuscular Hemoglobin Concent 30.7L, Red Cell Distribution Width 18.6H, Platelet Count 91L, Mean Platelet Volume 7.6, Neutrophils (%) (Auto) , Lymphocytes (%) (Auto) , Monocytes (%) (Auto) , Eosinophils (%) (Auto) , Basophils (%) (Auto) , Prothrombin Time 13.2H, Prothromb Time International Ratio 1.3H, Sodium Level 147H, Potassium Level 3.0L, Chloride Level 110H, Carbon Dioxide Level 28, Anion Gap 9, Blood Urea Nitrogen 40H, Creatinine 5.4H, Estimat Glomerular Filtration Rate , Glucose Level 144H, Calcium Level 10.5H, Phosphorus Level 3.5, Magnesium Level 2.0, Total Bilirubin 2.1H, Direct Bilirubin 1.5H, Aspartate Amino Transf (AST/SGOT) 38H, Alanine Aminotransferase (ALT/SGPT) 6L, Alkaline Phosphatase 185H, Total Protein 6.9, Albumin 2.0L, Globulin 4.9, Albumin/Globulin Ratio 0.4L 02/17/17 06:44: Arterial Blood pH 7.447, Arterial Blood Partial Pressure CO2 40.7, Arterial Blood Partial Pressure O2 69.6L, Arterial Blood HCO3 27.5H, Arterial Blood Oxygen Saturation 93.4, Arterial Blood Base Excess 3.2, Bon Test Positive Height (Feet): 5 Height (Inches): 5.00 Weight (Pounds): 256 General Appearance: no apparent distress Objective no other change ANDERS MOLINA Feb 17, 2017 15:43
[2017-02-17] MEDS ORDERED: NS 275ml ONE (16:31)
[2017-02-17] MEDS ORDERED: Tubing Blood Filter IV ONE (16:31)
--- NOTE | 2017-02-17 17:30 | General Progress Note ---
Assessment/Plan Assessment/Plan ASSESSMENT AND RECOMMENDATIONS 1.Thrombocytopenia 2/2 sepsis --> now off abx, continue to monitor --> give plts if below 10k or if below 20k and febrile --> ID following 2. Coagulopathy secondary to underlying liver cirrhosis ---> s/p multiple units ffp and vitamin k 3. Thrombocytopenia secondary to underlying splenomegaly. 4. Anemia 2/2 chronic disease --> Watch HH, transfuse if below 8 5. Leukocytosis secondary to underlying infection. On abx per id service --> wbc count has now normalized 6. Sepsis 2/2 UTI 7. Altered mental status 8. RAMYA on CKD,on hemodialysis Subjective ROS Limited/Unobtainable: Yes Allergies: Coded Allergies: PENICILLINS (Unverified Allergy, Unknown, 03/22/15) Subjective s/p egd, peg, ffp given Objective Last 24 Hour Vital Signs Date Time Temp Pulse Resp B/P (MAP) Pulse Ox O2 Delivery O2 Flow Rate FiO2 02/17/17 17:10 84 20 40 02/17/17 17:00 88 18 114/52 99 Mechanical Ventilator 40 02/17/17 16:00 40 02/17/17 16:00 86 02/17/17 16:00 98.1 87 18 124/49 98 Mechanical Ventilator 40 02/17/17 15:43 Mechanical Ventilator 40 02/17/17 15:35 88 20 106/88 Mechanical Ventilator 40 02/17/17 15:00 84 21 106/41 99 Mechanical Ventilator 40 02/17/17 14:44 92 20 40 02/17/17 14:00 84 20 80/35 97 Mechanical Ventilator 40 02/17/17 13:00 89 20 95/40 89 Mechanical Ventilator 40 02/17/17 12:43 89 20 40 02/17/17 12:00 40 02/17/17 12:00 97.4 84 23 106/48 99 Mechanical Ventilator 40 02/17/17 12:00 87 02/17/17 11:18 Mechanical Ventilator 15.0 40 02/17/17 11:00 91 19 126/48 99 Mechanical Ventilator 40 02/17/17 10:33 90 20 40 02/17/17 10:00 90 20 103/47 96 Mechanical Ventilator 40 02/17/17 09:00 98.3 94 20 78/39 97 Mechanical Ventilator 40 02/17/17 08:58 101 20 99 02/17/17 08:50 88 20 40 02/17/17 08:00 40 02/17/17 08:00 97 02/17/17 07:00 94 11 110/55 97 Mechanical Ventilator 40 02/17/17 06:44 96 20 40 02/17/17 06:00 100 13 157/55 96 Mechanical Ventilator 40 02/17/17 05:00 117 28 155/43 95 Mechanical Ventilator 40 02/17/17 04:58 121 21 40 02/17/17 04:00 98.5 114 26 156/51 95 Mechanical Ventilator 40 02/17/17 04:00 40 02/17/17 04:00 113 02/17/17 03:30 97 21 40 02/17/17 03:00 113 24 157/44 96 Mechanical Ventilator 40 02/17/17 02:00 109 28 155/57 95 Mechanical Ventilator 40 02/17/17 01:30 94 22 40 02/17/17 01:00 107 21 153/59 97 Mechanical Ventilator 40 02/17/17 00:00 40 02/17/17 00:00 98.2 106 28 144/82 97 Mechanical Ventilator 40 02/17/17 00:00 103 02/16/17 23:30 97 20 40 02/16/17 23:00 103 21 143/72 97 Mechanical Ventilator 40 02/16/17 22:00 99 18 133/69 97 Mechanical Ventilator 40 02/16/17 21:27 104 21 Mechanical Ventilator 40 02/16/17 21:16 80 20 40 02/16/17 21:00 76 14 123/52 100 Mechanical Ventilator 40 02/16/17 20:00 40 02/16/17 20:00 97.5 86 20 140/88 99 Mechanical Ventilator 40 02/16/17 20:00 86 02/16/17 19:30 78 20 40 02/16/17 19:00 99 16 112/61 100 Mechanical Ventilator 40 02/16/17 17:58 97.3 99 20 148/55 99 Mechanical Ventilator 40 Intake and Output 02/17/17 02/18/17 19:00 07:00 Intake Total 369 ml Output Total 335 ml Balance 34 ml Tube Feeding 35 ml Blood Product 214 ml Other 120 ml Hemodialysis UF 335 ml Laboratory Tests 02/17/17 04:30: White Blood Count 9.7, Red Blood Count 2.84L, Hemoglobin 8.8L, Hematocrit 28.6L , Mean Corpuscular Volume 101H, Mean Corpuscular Hemoglobin 31.0, Mean Corpuscular Hemoglobin Concent 30.7L, Red Cell Distribution Width 18.6H, Platelet Count 91L, Mean Platelet Volume 7.6, Neutrophils (%) (Auto) , Lymphocytes (%) (Auto) , Monocytes (%) (Auto) , Eosinophils (%) (Auto) , Basophils (%) (Auto) , Prothrombin Time 13.2H, Prothromb Time International Ratio 1.3H, Sodium Level 147H, Potassium Level 3.0L, Chloride Level 110H, Carbon Dioxide Level 28, Anion Gap 9, Blood Urea Nitrogen 40H, Creatinine 5.4H, Estimat Glomerular Filtration Rate , Glucose Level 144H, Calcium Level 10.5H, Phosphorus Level 3.5, Magnesium Level 2.0, Total Bilirubin 2.1H, Direct Bilirubin 1.5H, Aspartate Amino Transf (AST/SGOT) 38H, Alanine Aminotransferase (ALT/SGPT) 6L, Alkaline Phosphatase 185H, Total Protein 6.9, Albumin 2.0L, Globulin 4.9, Albumin/Globulin Ratio 0.4L 02/17/17 06:44: Arterial Blood pH 7.447, Arterial Blood Partial Pressure CO2 40.7, Arterial Blood Partial Pressure O2 69.6L, Arterial Blood HCO3 27.5H, Arterial Blood Oxygen Saturation 93.4, Arterial Blood Base Excess 3.2, Bon Test Positive Height (Feet): 5 Height (Inches): 5.00 Weight (Pounds): 256 General Appearance: no apparent distress EENT: normal ENT inspection Neck: normal alignment, supple Cardiovascular: normal rate Respiratory/Chest: decreased breath sounds Abdomen: no organomegaly, no mass Extremities: non-tender Chriss Pat Feb 17, 2017 17:30
--- NOTE | 2017-02-17 18:45 | Operative Note - Dictated ---
DATE OF OPERATION: 02/17/2017 SURGEON: Pradeep Alberto M.D. RETAIL OPERATIONS MANAGER: None. ANESTHESIOLOGIST: Aurelio Poole M.D. ANESTHESIA: General endotracheal as well as 10 mL of 1% lidocaine with 1/100, 000 epinephrine. INDICATION FOR SURGERY: This is a patient for a tracheostomy. She has been intubated over three weeks. She is DNR normally, has been through palliative care consultations. The family wants her to be comfortable, which included a G-tube last week and trach today. It was understood that if she had a vent during anesthesia while in the OR that there would not be aggressive care to maintain her life. This is per discussion with Dr. Arriaza last week and anesthesiologist with the family, which I reiterated this morning. PREOPERATIVE DIAGNOSIS: Respiratory dependent. POSTOPERATIVE DIAGNOSIS: Respiratory dependent. FINDINGS: Normal anatomy and a very thick neck. PROCEDURE: Tracheostomy technique. DESCRIPTION OF PROCEDURE: The patient prepped and draped in usual manner via oral endotracheal anesthesia. A time-out was performed prior to injecting 1% lidocaine as noted above. Incision made two fingerbreadths above the sternal notch with a 15 blade, taken down with blunt dissection to the strap muscles, which were atrophic, but the thyroid was very thick and bled when divided with electrocautery at a setting of 16. Stick tie was put in with a 3-0 silk and Surgicel in the right upper corner. This was necessary because when we grabbed the cricoid to lift up the trachea with a trach hook, it actually fractured on the right medial lateral side and would not stop with electrocautery and did stop with Surgicel. I then proceeded to make an incision in the trach, in the second and third tracheal ring placing an 8-0 with cuff with 5 mL Shiley. This was tied on the left side two fingerbreadths loose as well as four ties to the trach itself. The wound was packed with iodoform gauze. Telfa was placed between the flange of the trach and the skin to protect the skin. Sponge and needle count was correct. ESTIMATED BLOOD LOSS: 30 mL. COUNTS: None. DRAINS: Shiley #8 with cuff. Pradeep Alberto M.D. DR: MILVIA JOB#: [id number] CC: HAL
--- NOTE | 2017-02-17 18:55 | Internal Med Progress Note ---
Subjective Date of Service: Feb 17, 2017 Physician Name Katharina Pond Attending Physician Rl Tee MD Current Medications Medications (Trade) Dose Ordered Sig/Pavel Route PRN Reason Start Time Stop Time Status Last Admin Dose Admin Chlorhexidine Gluconate (Dianne-Hex 2%) 1 applic DAILY@1999 TOPIC 01/25/17 20:00 02/24/17 19:59 02/16/17 20:02 Clotrimazole (Lotrimin) 1 applic EVERY 12 HOURS TOPIC 01/21/17 21:00 02/18/17 13:59 02/17/17 09:37 Dextrose (Dextrose 50%) STAT PRN IV Hypoglycemia 02/06/17 10:45 03/08/17 10:44 Dopamine HCl/ Dextrose 250 ml @ 0 mls/hr Q24H IV 01/25/17 11:15 02/24/17 11:14 02/13/17 16:29 Insulin Aspart (NovoLOG) EVERY 4 HOURS SUBQ 02/06/17 12:00 03/08/17 11:59 02/17/17 13:26 Lorazepam (Ativan 2mg/ml 1ml) 2 mg Q2HR PRN IV For Anxiety 02/14/17 09:00 02/21/17 07:59 02/17/17 03:20 Metoclopramide HCl (Reglan) 5 mg Q8H PRN IVP Nausea & Vomiting 01/29/17 11:30 02/28/17 11:29 01/31/17 11:46 Midodrine (Pro-Amatine) 10 mg Q8HR NG 02/03/17 14:00 03/05/17 13:59 02/17/17 14:39 Nystatin (Nystop Powder) 1 applic THREE TIMES A DAY TOPIC 01/22/17 13:00 02/21/17 12:59 02/17/17 17:52 Ranitidine HCl (Zantac) 150 mg DAILY NG 02/03/17 18:00 03/05/17 17:59 02/17/17 09:36 Rifaximin (Xifaxan) 550 mg EVERY 12 HOURS ORAL 01/29/17 12:00 03/07/17 11:59 02/17/17 09:36 Allergies: Coded Allergies: PENICILLINS (Unverified Allergy, Unknown, 03/22/15) Subjective 76 YO F admitted with altered mental status. Intubated and sedated. ICU . Cover for Int Nishant-Dr Tee. S/P PEG 02/12/17. S/P tracheostomy on 02/17/17 Objective Last Vital Signs Date Time Temp Pulse Resp B/P (MAP) Pulse Ox O2 Delivery O2 Flow Rate FiO2 02/17/17 18:00 85 15 129/55 98 Mechanical Ventilator 40 02/17/17 16:00 98.1 02/17/17 11:18 15.0 Laboratory Tests Test 02/17/17 04:30 02/17/17 06:44 White Blood Count 9.7 K/UL (4.8-10.8) Red Blood Count 2.84 M/UL (4.20-5.40) L Hemoglobin 8.8 G/DL (12.0-16.0) L Hematocrit 28.6 % (37.0-47.0) L Mean Corpuscular Volume 101 FL (80-99) H Mean Corpuscular Hemoglobin 31.0 PG (27.0-31.0) Mean Corpuscular Hemoglobin Concent 30.7 G/DL (32.0-36.0) L Red Cell Distribution Width 18.6 % (11.6-14.8) H Platelet Count 91 K/UL (150-450) L Mean Platelet Volume 7.6 FL (6.5-10.1) Neutrophils (%) (Auto) % (45.0-75.0) Lymphocytes (%) (Auto) % (20.0-45.0) Monocytes (%) (Auto) % (1.0-10.0) Eosinophils (%) (Auto) % (0.0-3.0) Basophils (%) (Auto) % (0.0-2.0) Prothrombin Time 13.2 SEC (9.30-11.50) H Prothromb Time International Ratio 1.3 (0.9-1.1) H Sodium Level 147 MMOL/L (136-145) H Potassium Level 3.0 MMOL/L (3.5-5.1) L Chloride Level 110 MMOL/L (98-107) H Carbon Dioxide Level 28 MMOL/L (21-32) Anion Gap 9 mmol/L (5-15) Blood Urea Nitrogen 40 mg/dL (7-18) H Creatinine 5.4 MG/DL (0.55-1.30) H Estimat Glomerular Filtration Rate mL/min (>60) Glucose Level 144 MG/DL (74-106) H Calcium Level 10.5 MG/DL (8.5-10.1) H Phosphorus Level 3.5 MG/DL (2.5-4.9) Magnesium Level 2.0 MG/DL (1.8-2.4) Total Bilirubin 2.1 MG/DL (0.2-1.0) H Direct Bilirubin 1.5 MG/DL (0.0-0.3) H Aspartate Amino Transf (AST/SGOT) 38 U/L (15-37) H Alanine Aminotransferase (ALT/SGPT) 6 U/L (12-78) L Alkaline Phosphatase 185 U/L (46-116) H Total Protein 6.9 G/DL (6.4-8.2) Albumin 2.0 G/DL (3.4-5.0) L Globulin 4.9 g/dL Albumin/Globulin Ratio 0.4 (1.0-2.7) L Arterial Blood pH 7.447 (7.350-7.450) Arterial Blood Partial Pressure CO2 40.7 mmHg (35.0-45.0) Arterial Blood Partial Pressure O2 69.6 mmHg (75.0-100.0) L Arterial Blood HCO3 27.5 mmol/L (22.0-26.0) H Arterial Blood Oxygen Saturation 93.4 % (92.0-98.0) Arterial Blood Base Excess 3.2 Bon Test Positive Microbiology Date/Time Source Procedure Growth Status 02/16/17 13:00 Sputum Gram Stain - Final Resulted 02/16/17 13:00 Sputum Sputum Culture Pending Resulted Intake and Output 02/17/17 02/18/17 19:00 07:00 Intake Total 404 ml Output Total 335 ml Balance 69 ml Tube Feeding 70 ml Blood Product 214 ml Other 120 ml Hemodialysis UF 335 ml Objective General Appearance: WD/WN, no apparent distress, moderate distress, obese EENT: PERRL/EOMI, normal ENT inspection Neck: non-tender, normal alignment, supple, normal inspection Cardiovascular: normal peripheral pulses, normal rate, regular rhythm, no gallop/murmur, no JVD Respiratory/Chest: Mechanical vent; chest wall non-tender, lungs with coarse upper air sounds, Bilat wheezes and rales, respiratory distress Abdomen: G-Tube; non tender, no organomegaly, no mass Neurologic: rehabilitation counsellor 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 Baumanii. See ID note. Continur ertaoenem and vanco per ID (2) CHF (congestive heart failure) Assessment & Plan: LVEF 60-65%. see cardiology note. (3) DM (diabetes mellitus) Assessment & Plan: Continue novolog sliding scale (4) Hypercholesteremia (5) HTN (hypertension) Assessment & Plan: Currently hypotensive. (6) Uncontrolled diabetes mellitus (7) Cirrhosis Assessment & Plan: see GI note. (8) Anemia Assessment & Plan: S/P transfusion 2 units PRBC (9) Altered mental status Assessment & Plan: Worsening. ICU status (10) Renal failure Assessment & Plan: Next hemodialysis 02/17/17. See nephrology note. (11) Respiratory failure Assessment & Plan: Due to CHF. Cont mech vent per pulmonary-S/P tracheostomy 02/17/17. Continue antibiotic per ID (12) Bradycardia Assessment & Plan: see cardiology note. (13) Hypotension Assessment & Plan: Continue dopamine Status: not improved KATHARINA POND Feb 17, 2017 18:55
[2017-02-17] MEDS: Dyna-Hex 2% Top Sol 2oz TOPIC SCH (20:12)
[2017-02-18] VITALS (20 sets, daily range): BP systolic 88–138; BP diastolic 0–67
[2017-02-18] MEDS: NovoLOG Insulin Flexpen SUBQ SCH ×6 (01:12→21:22)
[2017-02-18] MEDS: LORazepam Inj 2mg/ml 1ml IV PRN (02:16)
[2017-02-18 04:40] LABS: HEMATOCRIT 25.7 % (37.0-47.0); HEMOGLOBIN 8.4 G/DL (12.0-16.0); MEAN CORPUSCULAR VOLUME 98 FL (80-99); PLATELET COUNT 96 K/UL (150-450); RED BLOOD COUNT 2.61 M/UL (4.20-5.40); RED CELL DISTRIBUTION WIDTH 17.4 % (11.6-14.8); WHITE BLOOD COUNT 8.5 K/UL (4.8-10.8)
[2017-02-18 05:10] LABS: ALANINE AMINOTRANSFERASE 8 U/L (12-78); ALBUMIN 1.7 G/DL (3.4-5.0); ALBUMIN/GLOBULIN RATIO 0.4 (1.0-2.7); ALKALINE PHOSPHATASE 172 U/L (46-116); ANION GAP 9 mmol/L (5-15); ASPARTATE AMINO TRANSFERASE 33 U/L (15-37); BILIRUBIN,TOTAL 2.7 MG/DL (0.2-1.0); BLOOD UREA NITROGEN 21 mg/dL (7-18); CALCIUM 9.2 MG/DL (8.5-10.1); CARBON DIOXIDE 30 MMOL/L (21-32); CHLORIDE 102 MMOL/L (98-107); CREATININE 3.3 MG/DL (0.55-1.30); POTASSIUM 3.1 MMOL/L (3.5-5.1); SODIUM 141 MMOL/L (136-145)
[2017-02-18 05:15] LABS: BILIRUBIN,DIRECT 1.8 MG/DL (0.0-0.3)
[2017-02-18] MEDS: Midodrine 10mg tab NG SCH ×3 (05:31→21:23)
[2017-02-18] MEDS: Nystatin Powder 100,000 units/gm 15gm TOPIC SCH ×4 (09:26→18:30)
--- NOTE | 2017-02-18 10:10 | Diagnostic Imaging Report ---
Indication: DYSPNEA Technique: One view of the chest Comparison: 02/17/2017 Findings: Tracheostomy, right jugular temporary dialysis catheter remain. 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 Impression: Unchanged, over one day, findings as above.
[2017-02-18] MEDS: DOPamine 400mg/250ml 250 ML IV SCH (11:15)
--- NOTE | 2017-02-18 11:16 | Internal Med Progress Note ---
Subjective Date of Service: Feb 18, 2017 Physician Name Katharina Pond Attending Physician Rl Tee MD Current Medications Medications (Trade) Dose Ordered Sig/Pavel Route PRN Reason Start Time Stop Time Status Last Admin Dose Admin Chlorhexidine Gluconate (Dianne-Hex 2%) 1 applic DAILY@1999 TOPIC 01/25/17 20:00 02/24/17 19:59 02/17/17 20:12 Clotrimazole (Lotrimin) 1 applic EVERY 12 HOURS TOPIC 01/21/17 21:00 02/18/17 13:59 02/18/17 09:26 Dextrose (Dextrose 50%) STAT PRN IV Hypoglycemia 02/06/17 10:45 03/08/17 10:44 Dopamine HCl/ Dextrose 250 ml @ 0 mls/hr Q24H IV 01/25/17 11:15 02/24/17 11:14 02/13/17 16:29 Insulin Aspart (NovoLOG) EVERY 4 HOURS SUBQ 02/06/17 12:00 03/08/17 11:59 02/18/17 09:26 Lorazepam (Ativan 2mg/ml 1ml) 2 mg Q2HR PRN IV For Anxiety 02/14/17 09:00 02/21/17 07:59 02/18/17 02:16 Metoclopramide HCl (Reglan) 5 mg Q8H PRN IVP Nausea & Vomiting 01/29/17 11:30 02/28/17 11:29 01/31/17 11:46 Midodrine (Pro-Amatine) 10 mg Q8HR NG 02/03/17 14:00 03/05/17 13:59 02/17/17 14:39 Nystatin (Nystop Powder) 1 applic THREE TIMES A DAY TOPIC 01/22/17 13:00 02/21/17 12:59 02/18/17 09:26 Potassium Chloride 100 ml @ 50 mls/hr Q2H IVPB 02/18/17 10:30 02/18/17 14:29 02/18/17 10:34 Ranitidine HCl (Zantac) 150 mg DAILY NG 02/03/17 18:00 03/05/17 17:59 02/18/17 09:25 Rifaximin (Xifaxan) 550 mg EVERY 12 HOURS ORAL 01/29/17 12:00 03/07/17 11:59 02/18/17 09:25 Allergies: Coded Allergies: PENICILLINS (Unverified Allergy, Unknown, 03/22/15) ROS Limited/Unobtainable: Yes Subjective 76 YO F admitted with altered mental status. Intubated and sedated. ICU . Cover for Neha Dillard-Dr Tee. S/P PEG 02/12/17. S/P tracheostomy on 02/17/17 Objective Last Vital Signs Date Time Temp Pulse Resp B/P (MAP) Pulse Ox O2 Delivery O2 Flow Rate FiO2 02/18/17 11:00 99 24 115/45 97 Mechanical Ventilator 40 02/18/17 08:00 98.8 02/17/17 11:18 15.0 Laboratory Tests Test 02/18/17 04:00 White Blood Count 8.5 K/UL (4.8-10.8) Red Blood Count 2.61 M/UL (4.20-5.40) L Hemoglobin 8.4 G/DL (12.0-16.0) L Hematocrit 25.7 % (37.0-47.0) L Mean Corpuscular Volume 98 FL (80-99) Mean Corpuscular Hemoglobin 32.3 PG (27.0-31.0) H Mean Corpuscular Hemoglobin Concent 32.9 G/DL (32.0-36.0) Red Cell Distribution Width 17.4 % (11.6-14.8) H Platelet Count 96 K/UL (150-450) L Mean Platelet Volume 8.9 FL (6.5-10.1) Neutrophils (%) (Auto) % (45.0-75.0) Lymphocytes (%) (Auto) % (20.0-45.0) Monocytes (%) (Auto) % (1.0-10.0) Eosinophils (%) (Auto) % (0.0-3.0) Basophils (%) (Auto) % (0.0-2.0) Differential Total Cells Counted 100 Neutrophils % (Manual) 74 % (45-75) Lymphocytes % (Manual) 13 % (20-45) L Monocytes % (Manual) 9 % (1-10) Eosinophils % (Manual) 4 % (0-3) H Basophils % (Manual) 0 % (0-2) Band Neutrophils 0 % (0-8) Platelet Estimate Decreased L Platelet Morphology Normal Hypochromasia 2+ Anisocytosis 1+ Spherocytes 1+ Sodium Level 141 MMOL/L (136-145) Potassium Level 3.1 MMOL/L (3.5-5.1) L Chloride Level 102 MMOL/L (98-107) Carbon Dioxide Level 30 MMOL/L (21-32) Anion Gap 9 mmol/L (5-15) Blood Urea Nitrogen 21 mg/dL (7-18) H Creatinine 3.3 MG/DL (0.55-1.30) H Estimat Glomerular Filtration Rate mL/min (>60) Glucose Level 146 MG/DL (74-106) H Calcium Level 9.2 MG/DL (8.5-10.1) Total Bilirubin 2.7 MG/DL (0.2-1.0) H Direct Bilirubin 1.8 MG/DL (0.0-0.3) H Aspartate Amino Transf (AST/SGOT) 33 U/L (15-37) Alanine Aminotransferase (ALT/SGPT) 8 U/L (12-78) L Alkaline Phosphatase 172 U/L (46-116) H Pro-B-Type Natriuretic Peptide 42055 pg/mL (0-125) H Total Protein 6.2 G/DL (6.4-8.2) L Albumin 1.7 G/DL (3.4-5.0) L Globulin 4.5 g/dL Albumin/Globulin Ratio 0.4 (1.0-2.7) L Microbiology Date/Time Source Procedure Growth Status 02/16/17 14:28 Blood Blood Culture - Preliminary NO GROWTH AFTER 24 HOURS Resulted 02/16/17 10:15 Blood Blood Culture - Preliminary Resulted 02/16/17 13:00 Sputum Gram Stain - Final Resulted 02/16/17 13:00 Sputum Culture - Preliminary Gram Negative Bacillus 1 Resulted Intake and Output 02/18/17 02/19/17 19:00 07:00 Intake Total 95 ml Balance 95 ml Tube Feeding 35 ml Other 60 ml Objective General Appearance: WD/WN, no apparent distress, moderate distress, obese EENT: PERRL/EOMI, normal ENT inspection Neck: non-tender, normal alignment, supple, normal inspection Cardiovascular: normal peripheral pulses, normal rate, regular rhythm, no gallop/murmur, no JVD Respiratory/Chest: Mechanical vent; chest wall non-tender, lungs with coarse upper air sounds, Bilat wheezes and rales, respiratory distress Abdomen: G-Tube; non tender, no organomegaly, no mass 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 Baumanii. See ID note. Continur ertaoenem and vanco per ID (2) CHF (congestive heart failure) Assessment & Plan: LVEF 60-65%. see cardiology note. (3) DM (diabetes mellitus) Assessment & Plan: Continue novolog sliding scale (4) Hypercholesteremia (5) HTN (hypertension) Assessment & Plan: Currently hypotensive. (6) Uncontrolled diabetes mellitus (7) Cirrhosis Assessment & Plan: see GI note. (8) Anemia Assessment & Plan: S/P transfusion 2 units PRBC (9) Altered mental status Assessment & Plan: Worsening. ICU status (10) Renal failure Assessment & Plan: Next hemodialysis 02/17/17. See nephrology note. (11) Respiratory failure Assessment & Plan: Due to CHF. Cont mech vent per pulmonary-S/P tracheostomy 02/17/17. Continue antibiotic per ID (12) Bradycardia Assessment & Plan: see cardiology note. (13) Hypotension Assessment & Plan: Continue dopamine Assessment/Plan Transfer to [facility] today KATHARINA POND Feb 18, 2017 11:16
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
--- NOTE | 2017-02-18 12:23 | General Progress Note ---
Assessment/Plan Status: unchanged Assessment/Plan Acute on chronic renal failure- multifactorial CHF DM HTN Sepsis Now: Acute respiratory failure- Intubated - Altered level of consciousness - ESBL (extended spectrum beta-lactamase) producing bacteria infection - Cardiomegaly - DM (diabetes mellitus) - HTN (hypertension) - UTI (urinary tract infection) - Anemia - High Cholestrol - COPD - YELENA - Fatty liver Plan: trach 02/17 HD 02/17 K supplement today ? Placement K & Phos supplement as needed On midodrine Transfuse as needed, Optimize cardiac and pulmonary status 2D echo results noted avoid nephrotoxics monitor renal parameters and lytes Urine studies per orders poor prognosis Subjective ROS Limited/Unobtainable: No Allergies: Coded Allergies: PENICILLINS (Unverified Allergy, Unknown, 03/22/15) Objective Last 24 Hour Vital Signs Date Time Temp Pulse Resp B/P (MAP) Pulse Ox O2 Delivery O2 Flow Rate FiO2 02/18/17 11:15 115/45 02/18/17 11:00 99 24 115/45 97 Mechanical Ventilator 40 02/18/17 10:45 109 22 40 02/18/17 10:00 98 19 136/62 98 Mechanical Ventilator 40 02/18/17 09:14 80 20 40 02/18/17 09:00 92 20 122/53 98 Mechanical Ventilator 40 02/18/17 08:00 97 02/18/17 08:00 40 02/18/17 08:00 98.8 96 20 88/0 98 Mechanical Ventilator 40 02/18/17 07:29 106 22 40 02/18/17 07:00 97 20 120/48 98 Mechanical Ventilator 40 02/18/17 06:00 95 18 106/46 98 Mechanical Ventilator 40 02/18/17 05:00 88 18 114/52 99 Mechanical Ventilator 40 02/18/17 04:57 91 20 40 02/18/17 04:00 40 02/18/17 04:00 89 02/18/17 04:00 98.1 89 18 114/52 98 Mechanical Ventilator 40 02/18/17 03:00 93 18 105/48 98 Mechanical Ventilator 40 02/18/17 02:35 89 20 40 02/18/17 02:00 93 18 123/52 96 Mechanical Ventilator 40 02/18/17 01:16 89 20 40 02/18/17 01:00 90 18 133/47 99 Mechanical Ventilator 40 02/18/17 00:00 40 02/18/17 00:00 98.5 85 18 123/45 98 Mechanical Ventilator 40 02/18/17 00:00 93 02/17/17 23:20 82 20 40 02/17/17 23:00 88 18 114/52 99 Mechanical Ventilator 40 02/17/17 22:00 90 20 113/44 98 Mechanical Ventilator 40 02/17/17 21:25 84 20 40 02/17/17 21:00 89 20 139/52 98 Mechanical Ventilator 40 02/17/17 20:00 40 02/17/17 20:00 81 02/17/17 20:00 98.1 80 18 128/50 98 Mechanical Ventilator 40 02/17/17 19:46 87 23 40 02/17/17 19:25 85 20 40 02/17/17 19:00 87 23 126/51 98 Mechanical Ventilator 40 02/17/17 18:00 85 15 129/55 98 Mechanical Ventilator 40 02/17/17 17:10 84 20 40 02/17/17 17:00 88 18 114/52 99 Mechanical Ventilator 40 02/17/17 16:00 40 02/17/17 16:00 86 02/17/17 16:00 98.1 87 18 124/49 98 Mechanical Ventilator 40 02/17/17 15:43 Mechanical Ventilator 40 02/17/17 15:35 88 20 106/88 Mechanical Ventilator 40 02/17/17 15:00 84 21 106/41 99 Mechanical Ventilator 40 02/17/17 14:44 92 20 40 02/17/17 14:00 84 20 80/35 97 Mechanical Ventilator 40 02/17/17 13:00 89 20 95/40 89 Mechanical Ventilator 40 02/17/17 12:43 89 20 40 Intake and Output 02/18/17 02/19/17 19:00 07:00 Intake Total 130 ml Balance 130 ml Tube Feeding 70 ml Other 60 ml Laboratory Tests 02/18/17 04:00: White Blood Count 8.5, Red Blood Count 2.61L, Hemoglobin 8.4L, Hematocrit 25.7L , Mean Corpuscular Volume 98, Mean Corpuscular Hemoglobin 32.3H, Mean Corpuscular Hemoglobin Concent 32.9, Red Cell Distribution Width 17.4H, Platelet Count 96L, Mean Platelet Volume 8.9, Neutrophils (%) (Auto) , Lymphocytes (%) (Auto) , Monocytes (%) (Auto) , Eosinophils (%) (Auto) , Basophils (%) (Auto) , Differential Total Cells Counted 100, Neutrophils % ( Manual) 74, Lymphocytes % (Manual) 13L, Monocytes % (Manual) 9, Eosinophils % ( Manual) 4H, Basophils % (Manual) 0, Band Neutrophils 0, Platelet Estimate DecreasedL, Platelet Morphology Normal, Hypochromasia 2+, Anisocytosis 1+, Spherocytes 1+, Sodium Level 141, Potassium Level 3.1L, Chloride Level 102, Carbon Dioxide Level 30, Anion Gap 9, Blood Urea Nitrogen 21H, Creatinine 3.3H, Estimat Glomerular Filtration Rate , Glucose Level 146H, Calcium Level 9.2, Total Bilirubin 2.7H, Direct Bilirubin 1.8H, Aspartate Amino Transf (AST/SGOT) 33, Alanine Aminotransferase (ALT/SGPT) 8L, Alkaline Phosphatase 172H, Pro-B- Type Natriuretic Peptide 99381Q, Total Protein 6.2L, Albumin 1.7L, Globulin 4.5 , Albumin/Globulin Ratio 0.4L Height (Feet): 5 Height (Inches): 5.00 Weight (Pounds): 256 General Appearance: no apparent distress Cardiovascular: tachycardia Respiratory/Chest: decreased breath sounds Abdomen: soft Objective no other change ANDERS MOLINA Feb 18, 2017 12:23
--- NOTE | 2017-02-18 12:28 | Diagnostic Imaging Report ---
Indication: DYSPNEA Technique: One view of the chest Comparison: 02/16/2017 Findings: Interim conversion of endotracheal tube to a tracheostomy. No pneumomediastinum present. Right jugular temporary dialysis catheter is again demonstrated. Bilateral diffuse extensive pulmonary parenchymal disease persists, unchanged Impression: Status post tracheostomy placement. No radiographically evident complication Otherwise stable, as described
--- NOTE | 2017-02-18 12:43 | Infectious Diseases Prog Note ---
Assessment/Plan Assessment/Plan Assesment: +ve blood Cx 04/21 GPC Sepsis, SP HCAP 2ry to ESBL. E.coli, s/p Rx Scx : GNR ( colonizer ) -repeat sp cx 01/26: +4 MDR A.baumani (I Ceftazidime, R to carbapenem and aminoglycosides, Minocycline; S to Colistin, Polymyxin B) suspect Colonizer ( improving not on tx)-s/p INH Colistin Tx -Sp cx 01/22: +2 ESBK E.coli, +2 C. albicans (colonizer) -01/16 04/23 BCx MRSA (S. Vanco JOSE A 1), repeat Bcx 01/19 Neg, 01/21 04/23 CoNS ( contaminant), 01/24 Bcx 04/23 CoNs, Bcx 01/26 Neg x4, 01/28 BCx neg cxray : stable 02/18 Leukocytosis, SP Elevated LFTs, improving -[place] hep panel neg Probable MDR UTI, pyuria, s/p Rx -u/a 01/16 WBC too many to count,nit neg ,leuk est +3; UCx x3 grew >100K MDR A.baumani complex (S. tigecycline/Minocycline, Polymixin B/Colistin), >100K PsA (S. Cefepime, Zosyn; R Cipro/Levo); a prior isolated on a ucx from the same day isolated MDR PsA (I. Cefepime, R ceftzadime, Meropenem; S. Tygecicine, amikacin) -renal u/s: Nondiagnostic exam Acute respiratory failure 2ry to hypercapnea, PNA; now ARDS - self-extubated, re -intubated 02/04 , trach 02/17 RAMYA on CKD, started on HD 01/28 Encephalopathy- possibly multifactorial- hepatic encephalopathy, infection- worsening now due to hypercapnea (transferred to ICU 01/21), on bipap> intubated Cirrhosis Anemia & thrombocytopenia DM type 2 Morbid obesity DNR PLAN: -start IV Vanco d# 1 -s/p 7d IV Vancomcyin 02/11 -s/p 18d prophylatic PO Vanco 02/09 -s/p 19d Ertapenem 02/09 -s/p 10d INH Colistin 02/07 for MDR ABC in sputum -02/03 s/p IV Vancomycin #15/14 -s/p 1 dose Amikacin 01/28 -s/p 7d Cefepime 10 -s/p 3d Amikacin 01/24 -s/p 7d Minocycline 10/ -s/p 3d IV vanco 01/18 -f/u cocci ab -Repeat blood cultures - follow cultures monitor CBC, temperatures monitor BMP monitor CXR vent support, trach eventually Subjective Allergies: Coded Allergies: PENICILLINS (Unverified Allergy, Unknown, 03/22/15) Subjective on vent Objective Vital Signs Last 24 Hour Vital Signs Date Time Temp Pulse Resp B/P (MAP) Pulse Ox O2 Delivery O2 Flow Rate FiO2 02/18/17 11:15 115/45 02/18/17 11:00 99 24 115/45 97 Mechanical Ventilator 40 02/18/17 10:45 109 22 40 02/18/17 10:00 98 19 136/62 98 Mechanical Ventilator 40 02/18/17 09:14 80 20 40 02/18/17 09:00 92 20 122/53 98 Mechanical Ventilator 40 02/18/17 08:00 97 02/18/17 08:00 40 02/18/17 08:00 98.8 96 20 88/0 98 Mechanical Ventilator 40 02/18/17 07:29 106 22 40 02/18/17 07:00 97 20 120/48 98 Mechanical Ventilator 40 02/18/17 06:00 95 18 106/46 98 Mechanical Ventilator 40 02/18/17 05:00 88 18 114/52 99 Mechanical Ventilator 40 02/18/17 04:57 91 20 40 02/18/17 04:00 40 02/18/17 04:00 89 02/18/17 04:00 98.1 89 18 114/52 98 Mechanical Ventilator 40 02/18/17 03:00 93 18 105/48 98 Mechanical Ventilator 40 02/18/17 02:35 89 20 40 02/18/17 02:00 93 18 123/52 96 Mechanical Ventilator 40 02/18/17 01:16 89 20 40 02/18/17 01:00 90 18 133/47 99 Mechanical Ventilator 40 02/18/17 00:00 40 02/18/17 00:00 98.5 85 18 123/45 98 Mechanical Ventilator 40 02/18/17 00:00 93 02/17/17 23:20 82 20 40 02/17/17 23:00 88 18 114/52 99 Mechanical Ventilator 40 02/17/17 22:00 90 20 113/44 98 Mechanical Ventilator 40 02/17/17 21:25 84 20 40 02/17/17 21:00 89 20 139/52 98 Mechanical Ventilator 40 02/17/17 20:00 40 02/17/17 20:00 81 02/17/17 20:00 98.1 80 18 128/50 98 Mechanical Ventilator 40 02/17/17 19:46 87 23 40 02/17/17 19:25 85 20 40 02/17/17 19:00 87 23 126/51 98 Mechanical Ventilator 40 02/17/17 18:00 85 15 129/55 98 Mechanical Ventilator 40 02/17/17 17:10 84 20 40 02/17/17 17:00 88 18 114/52 99 Mechanical Ventilator 40 02/17/17 16:00 40 02/17/17 16:00 86 02/17/17 16:00 98.1 87 18 124/49 98 Mechanical Ventilator 40 02/17/17 15:43 Mechanical Ventilator 40 02/17/17 15:35 88 20 106/88 Mechanical Ventilator 40 02/17/17 15:00 84 21 106/41 99 Mechanical Ventilator 40 02/17/17 14:44 92 20 40 02/17/17 14:00 84 20 80/35 97 Mechanical Ventilator 40 02/17/17 13:00 89 20 95/40 89 Mechanical Ventilator 40 02/17/17 12:43 89 20 40 Height (Feet): 5 Height (Inches): 5.00 Weight (Pounds): 256 HEENT: mucous membranes moist Respiratory/Chest: no accessory muscle use Cardiovascular: regular rhythm Abdomen: no organomegaly Microbiology Date/Time Source Procedure Growth Status 02/16/17 14:28 Blood Blood Culture - Preliminary NO GROWTH AFTER 24 HOURS Resulted 02/16/17 10:15 Blood Blood Culture - Preliminary Resulted 02/16/17 13:00 Sputum Gram Stain - Final Resulted 02/16/17 13:00 Sputum Culture - Preliminary Gram Negative Bacillus 1 Resulted Laboratory Tests Test 02/18/17 04:00 White Blood Count 8.5 K/UL (4.8-10.8) Red Blood Count 2.61 M/UL (4.20-5.40) L Hemoglobin 8.4 G/DL (12.0-16.0) L Hematocrit 25.7 % (37.0-47.0) L Mean Corpuscular Volume 98 FL (80-99) Mean Corpuscular Hemoglobin 32.3 PG (27.0-31.0) H Mean Corpuscular Hemoglobin Concent 32.9 G/DL (32.0-36.0) Red Cell Distribution Width 17.4 % (11.6-14.8) H Platelet Count 96 K/UL (150-450) L Mean Platelet Volume 8.9 FL (6.5-10.1) Neutrophils (%) (Auto) % (45.0-75.0) Lymphocytes (%) (Auto) % (20.0-45.0) Monocytes (%) (Auto) % (1.0-10.0) Eosinophils (%) (Auto) % (0.0-3.0) Basophils (%) (Auto) % (0.0-2.0) Differential Total Cells Counted 100 Neutrophils % (Manual) 74 % (45-75) Lymphocytes % (Manual) 13 % (20-45) L Monocytes % (Manual) 9 % (1-10) Eosinophils % (Manual) 4 % (0-3) H Basophils % (Manual) 0 % (0-2) Band Neutrophils 0 % (0-8) Platelet Estimate Decreased L Platelet Morphology Normal Hypochromasia 2+ Anisocytosis 1+ Spherocytes 1+ Sodium Level 141 MMOL/L (136-145) Potassium Level 3.1 MMOL/L (3.5-5.1) L Chloride Level 102 MMOL/L (98-107) Carbon Dioxide Level 30 MMOL/L (21-32) Anion Gap 9 mmol/L (5-15) Blood Urea Nitrogen 21 mg/dL (7-18) H Creatinine 3.3 MG/DL (0.55-1.30) H Estimat Glomerular Filtration Rate mL/min (>60) Glucose Level 146 MG/DL (74-106) H Calcium Level 9.2 MG/DL (8.5-10.1) Total Bilirubin 2.7 MG/DL (0.2-1.0) H Direct Bilirubin 1.8 MG/DL (0.0-0.3) H Aspartate Amino Transf (AST/SGOT) 33 U/L (15-37) Alanine Aminotransferase (ALT/SGPT) 8 U/L (12-78) L Alkaline Phosphatase 172 U/L (46-116) H Pro-B-Type Natriuretic Peptide 38309 pg/mL (0-125) H Total Protein 6.2 G/DL (6.4-8.2) L Albumin 1.7 G/DL (3.4-5.0) L Globulin 4.5 g/dL Albumin/Globulin Ratio 0.4 (1.0-2.7) L Current Medications Medications (Trade) Dose Ordered Sig/Pavel Route PRN Reason Start Time Stop Time Status Last Admin Dose Admin Chlorhexidine Gluconate (Dianne-Hex 2%) 1 applic DAILY@1999 TOPIC 01/25/17 20:00 02/24/17 19:59 02/17/17 20:12 Clotrimazole (Lotrimin) 1 applic EVERY 12 HOURS TOPIC 01/21/17 21:00 02/18/17 13:59 02/18/17 09:26 Dextrose (Dextrose 50%) STAT PRN IV Hypoglycemia 02/06/17 10:45 03/08/17 10:44 Dopamine HCl/ Dextrose 250 ml @ 0 mls/hr Q24H IV 01/25/17 11:15 02/24/17 11:14 02/13/17 16:29 Insulin Aspart (NovoLOG) EVERY 4 HOURS SUBQ 02/06/17 12:00 03/08/17 11:59 02/18/17 09:26 Lorazepam (Ativan 2mg/ml 1ml) 2 mg Q2HR PRN IV For Anxiety 02/14/17 09:00 02/21/17 07:59 02/18/17 02:16 Metoclopramide HCl (Reglan) 5 mg Q8H PRN IVP Nausea & Vomiting 01/29/17 11:30 02/28/17 11:29 01/31/17 11:46 Midodrine (Pro-Amatine) 10 mg Q8HR NG 02/03/17 14:00 03/05/17 13:59 02/17/17 14:39 Nystatin (Nystop Powder) 1 applic THREE TIMES A DAY TOPIC 01/22/17 13:00 02/21/17 12:59 02/18/17 09:26 Potassium Chloride 100 ml @ 50 mls/hr Q2H IVPB 02/18/17 10:30 02/18/17 14:29 11/1/17 10:34 Ranitidine HCl (Zantac) 150 mg DAILY NG 02/03/17 18:00 03/05/17 17:59 02/18/17 09:25 Rifaximin (Xifaxan) 550 mg EVERY 12 HOURS ORAL 01/29/17 12:00 03/07/17 11:59 02/18/17 09:25 LYLA ROJAS M.D. Feb 18, 2017 12:43
--- NOTE | 2017-02-18 13:10 | Pulmonolgy Critical Care Note ---
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 Respiratory: monitor respiratory rate, adjust FIO2, CXR Cardiac: continue pressors Renal: F/U I&O, keep IV fluid Infectious Disease: check cultures, continue antibiotics Gastrointestinal: continue feedings/current rate Endocrine: monitor blood sugar, check HgA1C, continue sliding scale insulin Hematologic: transfuse if hgb<8.5 Neurologic: PRN Ativan, PRN Morphine, keep patient comfortable Prophylaxis: Protonix Notes Reviewed: export specialist, renal Discussed with: nurses, consultants, case management specialisthealth and wellness manager - Objective Last 24 Hour Vital Signs Date Time Temp Pulse Resp B/P (MAP) Pulse Ox O2 Delivery O2 Flow Rate FiO2 02/18/17 12:59 80 20 40 02/18/17 11:15 115/45 02/18/17 11:00 99 24 115/45 97 Mechanical Ventilator 40 02/18/17 10:45 109 22 40 02/18/17 10:00 98 19 136/62 98 Mechanical Ventilator 40 02/18/17 09:14 80 20 40 02/18/17 09:00 92 20 122/53 98 Mechanical Ventilator 40 02/18/17 08:00 97 02/18/17 08:00 40 02/18/17 08:00 98.8 96 20 88/0 98 Mechanical Ventilator 40 02/18/17 07:29 106 22 40 02/18/17 07:00 97 20 120/48 98 Mechanical Ventilator 40 02/18/17 06:00 95 18 106/46 98 Mechanical Ventilator 40 02/18/17 05:00 88 18 114/52 99 Mechanical Ventilator 40 02/18/17 04:57 91 20 40 02/18/17 04:00 40 02/18/17 04:00 89 02/18/17 04:00 98.1 89 18 114/52 98 Mechanical Ventilator 40 02/18/17 03:00 93 18 105/48 98 Mechanical Ventilator 40 02/18/17 02:35 89 20 40 02/18/17 02:00 93 18 123/52 96 Mechanical Ventilator 40 02/18/17 01:16 89 20 40 02/18/17 01:00 90 18 133/47 99 Mechanical Ventilator 40 02/18/17 00:00 40 02/18/17 00:00 98.5 85 18 123/45 98 Mechanical Ventilator 40 02/18/17 00:00 93 02/17/17 23:20 82 20 40 02/17/17 23:00 88 18 114/52 99 Mechanical Ventilator 40 02/17/17 22:00 90 20 113/44 98 Mechanical Ventilator 40 02/17/17 21:25 84 20 40 02/17/17 21:00 89 20 139/52 98 Mechanical Ventilator 40 02/17/17 20:00 40 02/17/17 20:00 81 02/17/17 20:00 98.1 80 18 128/50 98 Mechanical Ventilator 40 02/17/17 19:46 87 23 40 02/17/17 19:25 85 20 40 02/17/17 19:00 87 23 126/51 98 Mechanical Ventilator 40 02/17/17 18:00 85 15 129/55 98 Mechanical Ventilator 40 02/17/17 17:10 84 20 40 02/17/17 17:00 88 18 114/52 99 Mechanical Ventilator 40 02/17/17 16:00 40 02/17/17 16:00 86 02/17/17 16:00 98.1 87 18 124/49 98 Mechanical Ventilator 40 02/17/17 15:43 Mechanical Ventilator 40 02/17/17 15:35 88 20 106/88 Mechanical Ventilator 40 02/17/17 15:00 84 21 106/41 99 Mechanical Ventilator 40 02/17/17 14:44 92 20 40 02/17/17 14:00 84 20 80/35 97 Mechanical Ventilator 40 Status: awake Condition: critical, grave HEENT: atraumatic Neck: full ROM Lungs: clear Heart: HR/BP stable, HR/BP unstable, regular Abdomen: soft, non-tender, feeding tube Extremities: edema Decubiti: location, stage Micro: Microbiology Date/Time Source Procedure Growth Status 02/16/17 14:28 Blood Blood Culture - Preliminary NO GROWTH AFTER 24 HOURS Resulted 02/16/17 10:15 Blood Blood Culture - Preliminary Resulted 02/16/17 13:00 Sputum Gram Stain - Final Resulted 02/16/17 13:00 Sputum Culture - Preliminary Gram Negative Bacillus 1 Resulted Accucheck: 190 Critical Care - Subjective ROS Limited/Unobtainable: Yes Interval Events: tolerating feeding, Trach in site. Condition: critical FI02: 40 Vent Support Breath Rate: 20 Vent Support Mode: AC Vent Tidal Volume: 650 Sputum Amount: Small PEEP: 0.0 PIP: 40 Tube Feeding Amount: 35 I&O: Intake and Output 02/18/17 02/19/17 19:00 07:00 Intake Total 130 ml Balance 130 ml Tube Feeding 70 ml Other 60 ml ET-Tube: 7.0 ET Position: 22 Labs: Laboratory Tests Test 02/18/17 04:00 White Blood Count 8.5 K/UL (4.8-10.8) Red Blood Count 2.61 M/UL (4.20-5.40) L Hemoglobin 8.4 G/DL (12.0-16.0) L Hematocrit 25.7 % (37.0-47.0) L Mean Corpuscular Volume 98 FL (80-99) Mean Corpuscular Hemoglobin 32.3 PG (27.0-31.0) H Mean Corpuscular Hemoglobin Concent 32.9 G/DL (32.0-36.0) Red Cell Distribution Width 17.4 % (11.6-14.8) H Platelet Count 96 K/UL (150-450) L Mean Platelet Volume 8.9 FL (6.5-10.1) Neutrophils (%) (Auto) % (45.0-75.0) Lymphocytes (%) (Auto) % (20.0-45.0) Monocytes (%) (Auto) % (1.0-10.0) Eosinophils (%) (Auto) % (0.0-3.0) Basophils (%) (Auto) % (0.0-2.0) Differential Total Cells Counted 100 Neutrophils % (Manual) 74 % (45-75) Lymphocytes % (Manual) 13 % (20-45) L Monocytes % (Manual) 9 % (1-10) Eosinophils % (Manual) 4 % (0-3) H Basophils % (Manual) 0 % (0-2) Band Neutrophils 0 % (0-8) Platelet Estimate Decreased L Platelet Morphology Normal Hypochromasia 2+ Anisocytosis 1+ Spherocytes 1+ Sodium Level 141 MMOL/L (136-145) Potassium Level 3.1 MMOL/L (3.5-5.1) L Chloride Level 102 MMOL/L (98-107) Carbon Dioxide Level 30 MMOL/L (21-32) Anion Gap 9 mmol/L (5-15) Blood Urea Nitrogen 21 mg/dL (7-18) H Creatinine 3.3 MG/DL (0.55-1.30) H Estimat Glomerular Filtration Rate mL/min (>60) Glucose Level 146 MG/DL (74-106) H Calcium Level 9.2 MG/DL (8.5-10.1) Total Bilirubin 2.7 MG/DL (0.2-1.0) H Direct Bilirubin 1.8 MG/DL (0.0-0.3) H Aspartate Amino Transf (AST/SGOT) 33 U/L (15-37) Alanine Aminotransferase (ALT/SGPT) 8 U/L (12-78) L Alkaline Phosphatase 172 U/L (46-116) H Pro-B-Type Natriuretic Peptide 39644 pg/mL (0-125) H Total Protein 6.2 G/DL (6.4-8.2) L Albumin 1.7 G/DL (3.4-5.0) L Globulin 4.5 g/dL Albumin/Globulin Ratio 0.4 (1.0-2.7) L DIONI TRIANA Feb 18, 2017 13:10
--- NOTE | 2017-02-18 13:54 | Cardiac Electrophysiology PN ---
Assessment/Plan Assessment/Plan 1. CHF due to diastolic dysfunction, EF 60 %. On dialysis. 2. S/P Shock, resolved.Off pressors 3. Bradycardia resolved, off dopamine. On midodrine 5 tid 4. Vent dependent respiratory failure. Self extubated on 02/04 and was reintubated Tracheostomy done today 02/17/17. 5. Hyperlipidemia. 6. Cirrhosis 7. Anemia with hemoglobin of 8. 8. Hypernatremia Na still 150 9. DNR 10. ESRD on HD. Perm Cath? 11. DM 12. Dysphagia, S/P PEG 02/12/17 DW RN and daughter DC to [facility] pending Subjective Subjective In ICU on Vent via Tracheostomy. Daughter at bedside.DC to [place] pending Objective Last 24 Hour Vital Signs Date Time Temp Pulse Resp B/P (MAP) Pulse Ox O2 Delivery O2 Flow Rate FiO2 02/18/17 13:11 98.5 90 20 124/47 99 Mechanical Ventilator 40 02/18/17 12:59 80 20 40 02/18/17 12:00 40 02/18/17 11:15 115/45 02/18/17 11:00 99 24 115/45 97 Mechanical Ventilator 40 02/18/17 10:45 109 22 40 02/18/17 10:00 98 19 136/62 98 Mechanical Ventilator 40 02/18/17 09:14 80 20 40 02/18/17 09:00 92 20 122/53 98 Mechanical Ventilator 40 02/18/17 08:00 97 02/18/17 08:00 40 02/18/17 08:00 98.8 96 20 88/40 98 Mechanical Ventilator 40 02/18/17 07:29 106 22 40 02/18/17 07:00 97 20 120/48 98 Mechanical Ventilator 40 02/18/17 06:00 95 18 106/46 98 Mechanical Ventilator 40 02/18/17 05:00 88 18 114/52 99 Mechanical Ventilator 40 02/18/17 04:57 91 20 40 02/18/17 04:00 40 02/18/17 04:00 89 02/18/17 04:00 98.1 89 18 114/52 98 Mechanical Ventilator 40 02/18/17 03:00 93 18 105/48 98 Mechanical Ventilator 40 02/18/17 02:35 89 20 40 02/18/17 02:00 93 18 123/52 96 Mechanical Ventilator 40 02/18/17 01:16 89 20 40 02/18/17 01:00 90 18 133/47 99 Mechanical Ventilator 40 02/18/17 00:00 40 02/18/17 00:00 98.5 85 18 123/45 98 Mechanical Ventilator 40 02/18/17 00:00 93 02/17/17 23:20 82 20 40 02/17/17 23:00 88 18 114/52 99 Mechanical Ventilator 40 02/17/17 22:00 90 20 113/44 98 Mechanical Ventilator 40 02/17/17 21:25 84 20 40 02/17/17 21:00 89 20 139/52 98 Mechanical Ventilator 40 02/17/17 20:00 40 02/17/17 20:00 81 02/17/17 20:00 98.1 80 18 128/50 98 Mechanical Ventilator 40 02/17/17 19:46 87 23 40 02/17/17 19:25 85 20 40 02/17/17 19:00 87 23 126/51 98 Mechanical Ventilator 40 02/17/17 18:00 85 15 129/55 98 Mechanical Ventilator 40 02/17/17 17:10 84 20 40 02/17/17 17:00 88 18 114/52 99 Mechanical Ventilator 40 02/17/17 16:00 40 02/17/17 16:00 86 02/17/17 16:00 98.1 87 18 124/49 98 Mechanical Ventilator 40 02/17/17 15:43 Mechanical Ventilator 40 02/17/17 15:35 88 20 106/88 Mechanical Ventilator 40 02/17/17 15:00 84 21 106/41 99 Mechanical Ventilator 40 02/17/17 14:44 92 20 40 02/17/17 14:00 84 20 80/35 97 Mechanical Ventilator 40 Intake and Output 02/18/17 02/19/17 19:00 07:00 Intake Total 200 ml Balance 200 ml Tube Feeding 140 ml Other 60 ml Laboratory Tests Test 02/18/17 04:00 White Blood Count 8.5 K/UL (4.8-10.8) Red Blood Count 2.61 M/UL (4.20-5.40) L Hemoglobin 8.4 G/DL (12.0-16.0) L Hematocrit 25.7 % (37.0-47.0) L Mean Corpuscular Volume 98 FL (80-99) Mean Corpuscular Hemoglobin 32.3 PG (27.0-31.0) H Mean Corpuscular Hemoglobin Concent 32.9 G/DL (32.0-36.0) Red Cell Distribution Width 17.4 % (11.6-14.8) H Platelet Count 96 K/UL (150-450) L Mean Platelet Volume 8.9 FL (6.5-10.1) Neutrophils (%) (Auto) % (45.0-75.0) Lymphocytes (%) (Auto) % (20.0-45.0) Monocytes (%) (Auto) % (1.0-10.0) Eosinophils (%) (Auto) % (0.0-3.0) Basophils (%) (Auto) % (0.0-2.0) Differential Total Cells Counted 100 Neutrophils % (Manual) 74 % (45-75) Lymphocytes % (Manual) 13 % (20-45) L Monocytes % (Manual) 9 % (1-10) Eosinophils % (Manual) 4 % (0-3) H Basophils % (Manual) 0 % (0-2) Band Neutrophils 0 % (0-8) Platelet Estimate Decreased L Platelet Morphology Normal Hypochromasia 2+ Anisocytosis 1+ Spherocytes 1+ Sodium Level 141 MMOL/L (136-145) Potassium Level 3.1 MMOL/L (3.5-5.1) L Chloride Level 102 MMOL/L (98-107) Carbon Dioxide Level 30 MMOL/L (21-32) Anion Gap 9 mmol/L (5-15) Blood Urea Nitrogen 21 mg/dL (7-18) H Creatinine 3.3 MG/DL (0.55-1.30) H Estimat Glomerular Filtration Rate mL/min (>60) Glucose Level 146 MG/DL (74-106) H Calcium Level 9.2 MG/DL (8.5-10.1) Total Bilirubin 2.7 MG/DL (0.2-1.0) H Direct Bilirubin 1.8 MG/DL (0.0-0.3) H Aspartate Amino Transf (AST/SGOT) 33 U/L (15-37) Alanine Aminotransferase (ALT/SGPT) 8 U/L (12-78) L Alkaline Phosphatase 172 U/L (46-116) H Pro-B-Type Natriuretic Peptide 42757 pg/mL (0-125) H Total Protein 6.2 G/DL (6.4-8.2) L Albumin 1.7 G/DL (3.4-5.0) L Globulin 4.5 g/dL Albumin/Globulin Ratio 0.4 (1.0-2.7) L Microbiology Date/Time Source Procedure Growth Status 02/16/17 14:28 Blood Blood Culture - Preliminary NO GROWTH AFTER 24 HOURS Resulted 02/16/17 10:15 Blood Blood Culture - Preliminary Resulted 02/16/17 13:00 Sputum Gram Stain - Final Resulted 02/16/17 13:00 Sputum Culture - Preliminary Gram Negative Bacillus 1 Resulted Objective HEAD AND NECK: No JVD. Right IJ Mahurkar Catheter in place. S/P Tracheostomy. LUNGS: Coarse rhonchi CARDIOVASCULAR: Regular S1 and S2 with no gallop or murmur. ABDOMEN: Soft and nontender and obese.PEG in place EXTREMITIES: 1+ pitting edema. DEAN SHAW Feb 18, 2017 13:54
[2017-02-18] MEDS ORDERED: Vancomycin 1500mg IVPB ONE (14:30)
[2017-02-18] MEDS ORDERED: NS 275ml ONE (16:01)
--- NOTE | 2017-02-18 17:58 | General Progress Note ---
Assessment/Plan Assessment/Plan ASSESSMENT AND RECOMMENDATIONS 1.Thrombocytopenia 2/2 sepsis --> give plts if below 10k or if below 20k and febrile --> ID following, currently back on abx 2. Coagulopathy secondary to underlying liver cirrhosis ---> s/p multiple units ffp and vitamin k 3. Thrombocytopenia secondary to underlying splenomegaly. 4. Anemia 2/2 chronic disease --> Watch HH, transfuse if below 8 5. Leukocytosis secondary to underlying infection. On abx per id service --> wbc count has now normalized 6. Sepsis 2/2 UTI 7. Altered mental status 8. RAMYA on CKD,on hemodialysis Subjective ROS Limited/Unobtainable: Yes Allergies: Coded Allergies: PENICILLINS (Unverified Allergy, Unknown, 03/22/15) Subjective on vent, NAD Objective Last 24 Hour Vital Signs Date Time Temp Pulse Resp B/P (MAP) Pulse Ox O2 Delivery O2 Flow Rate FiO2 02/18/17 17:00 98 19 114/65 99 Mechanical Ventilator 40 02/18/17 16:51 93 20 40 02/18/17 16:00 98.4 94 19 108/46 99 Mechanical Ventilator 40 02/18/17 16:00 90 02/18/17 16:00 40 02/18/17 15:28 96 20 40 02/18/17 15:00 95 19 98/37 98 Mechanical Ventilator 40 02/18/17 14:00 92 18 138/54 97 Mechanical Ventilator 40 02/18/17 13:11 98.5 90 20 124/47 99 Mechanical Ventilator 40 02/18/17 12:59 80 20 40 02/18/17 12:00 40 02/18/17 12:00 88 18 109/41 99 Mechanical Ventilator 40 02/18/17 11:15 115/45 02/18/17 11:00 99 24 115/45 97 Mechanical Ventilator 40 02/18/17 10:45 109 22 40 02/18/17 10:00 98 19 136/62 98 Mechanical Ventilator 40 02/18/17 09:14 80 20 40 02/18/17 09:00 92 20 122/53 98 Mechanical Ventilator 40 02/18/17 08:00 97 02/18/17 08:00 40 02/18/17 08:00 98.8 96 20 88/40 98 Mechanical Ventilator 40 02/18/17 07:29 106 22 40 02/18/17 07:00 97 20 120/48 98 Mechanical Ventilator 40 02/18/17 06:00 95 18 106/46 98 Mechanical Ventilator 40 02/18/17 05:00 88 18 114/52 99 Mechanical Ventilator 40 02/18/17 04:57 91 20 40 02/18/17 04:00 40 02/18/17 04:00 89 02/18/17 04:00 98.1 89 18 114/52 98 Mechanical Ventilator 40 02/18/17 03:00 93 18 105/48 98 Mechanical Ventilator 40 02/18/17 02:35 89 20 40 02/18/17 02:00 93 18 123/52 96 Mechanical Ventilator 40 02/18/17 01:16 89 20 40 02/18/17 01:00 90 18 133/47 99 Mechanical Ventilator 40 02/18/17 00:00 40 02/18/17 00:00 98.5 85 18 123/45 98 Mechanical Ventilator 40 02/18/17 00:00 93 02/17/17 23:20 82 20 40 02/17/17 23:00 88 18 114/52 99 Mechanical Ventilator 40 02/17/17 22:00 90 20 113/44 98 Mechanical Ventilator 40 02/17/17 21:25 84 20 40 02/17/17 21:00 89 20 139/52 98 Mechanical Ventilator 40 02/17/17 20:00 40 02/17/17 20:00 81 02/17/17 20:00 98.1 80 18 128/50 98 Mechanical Ventilator 40 02/17/17 19:46 87 23 40 02/17/17 19:25 85 20 40 02/17/17 19:00 87 23 126/51 98 Mechanical Ventilator 40 02/17/17 18:00 85 15 129/55 98 Mechanical Ventilator 40 Intake and Output 02/18/17 02/19/17 19:00 07:00 Intake Total 400 ml Output Total 200 ml Balance 200 ml Tube Feeding 280 ml Other 120 ml Stool Total 200 ml Laboratory Tests 02/18/17 04:00: White Blood Count 8.5, Red Blood Count 2.61L, Hemoglobin 8.4L, Hematocrit 25.7L , Mean Corpuscular Volume 98, Mean Corpuscular Hemoglobin 32.3H, Mean Corpuscular Hemoglobin Concent 32.9, Red Cell Distribution Width 17.4H, Platelet Count 96L, Mean Platelet Volume 8.9, Neutrophils (%) (Auto) , Lymphocytes (%) (Auto) , Monocytes (%) (Auto) , Eosinophils (%) (Auto) , Basophils (%) (Auto) , Differential Total Cells Counted 100, Neutrophils % ( Manual) 74, Lymphocytes % (Manual) 13L, Monocytes % (Manual) 9, Eosinophils % ( Manual) 4H, Basophils % (Manual) 0, Band Neutrophils 0, Platelet Estimate DecreasedL, Platelet Morphology Normal, Hypochromasia 2+, Anisocytosis 1+, Spherocytes 1+, Sodium Level 141, Potassium Level 3.1L, Chloride Level 102, Carbon Dioxide Level 30, Anion Gap 9, Blood Urea Nitrogen 21H, Creatinine 3.3H, Estimat Glomerular Filtration Rate , Glucose Level 146H, Calcium Level 9.2, Total Bilirubin 2.7H, Direct Bilirubin 1.8H, Aspartate Amino Transf (AST/SGOT) 33, Alanine Aminotransferase (ALT/SGPT) 8L, Alkaline Phosphatase 172H, Pro-B- Type Natriuretic Peptide 59557D, Total Protein 6.2L, Albumin 1.7L, Globulin 4.5 , Albumin/Globulin Ratio 0.4L Height (Feet): 5 Height (Inches): 5.00 Weight (Pounds): 256 General Appearance: no apparent distress EENT: normal ENT inspection Neck: non-tender, normal alignment 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
[2017-02-18] MEDS ORDERED: LORazepam Inj 2mg/ml 1ml IV PRN (18:00)
[2017-02-18] MEDS ORDERED: Metoclopramide 10mg/2ml Inj IVP PRN (18:00)
[2017-02-18] MEDS: Dyna-Hex 2% Top Sol 2oz TOPIC SCH (20:22)
--- NOTE | 2017-02-18 23:25 | General Progress Note ---
Assessment/Plan Assessment/Plan Assessment - Respiratory failure - s/p trach - Renal failure - DURANT with cirrhosis - Hepatic encephalopathy - elevated CEA with negative recent EGD/Colon - Heme (+) - likely from portal HTN gastropathy - dysphagia - s/p PEG - diarrhea - presumed TF related Recommendations - continue off of lactulose - continue Xifaxan - Continue TF - follow labs - HD/lytes per Renal Subjective Allergies: Coded Allergies: PENICILLINS (Unverified Allergy, Unknown, 03/22/15) Subjective above noted seen in ICU d/w staff development educator s/p trach Objective Last 24 Hour Vital Signs Date Time Temp Pulse Resp B/P (MAP) Pulse Ox O2 Delivery O2 Flow Rate FiO2 02/18/17 23:01 94 20 40 02/18/17 21:25 90 20 40 02/18/17 20:22 94 02/18/17 20:00 40 02/18/17 20:00 98.1 97 20 137/67 96 Mechanical Ventilator 40 02/18/17 19:27 89 20 40 02/18/17 18:00 98.9 87 20 137/63 98 Mechanical Ventilator 40 02/18/17 17:00 98 19 114/65 99 Mechanical Ventilator 40 02/18/17 16:51 93 20 40 02/18/17 16:00 98.4 94 19 108/46 99 Mechanical Ventilator 40 02/18/17 16:00 90 02/18/17 16:00 40 02/18/17 15:28 96 20 40 02/18/17 15:00 95 19 98/37 98 Mechanical Ventilator 40 02/18/17 14:00 92 18 138/54 97 Mechanical Ventilator 40 02/18/17 13:11 98.5 90 20 124/47 99 Mechanical Ventilator 40 02/18/17 12:59 80 20 40 02/18/17 12:00 40 02/18/17 12:00 88 18 109/41 99 Mechanical Ventilator 40 02/18/17 11:15 115/45 02/18/17 11:00 99 24 115/45 97 Mechanical Ventilator 40 02/18/17 10:45 109 22 40 02/18/17 10:00 98 19 136/62 98 Mechanical Ventilator 40 02/18/17 09:14 80 20 40 02/18/17 09:00 92 20 122/53 98 Mechanical Ventilator 40 02/18/17 08:00 97 02/18/17 08:00 40 02/18/17 08:00 98.8 96 20 88/40 98 Mechanical Ventilator 40 02/18/17 07:29 106 22 40 02/18/17 07:00 97 20 120/48 98 Mechanical Ventilator 40 02/18/17 06:00 95 18 106/46 98 Mechanical Ventilator 40 02/18/17 05:00 88 18 114/52 99 Mechanical Ventilator 40 02/18/17 04:57 91 20 40 02/18/17 04:00 40 02/18/17 04:00 89 02/18/17 04:00 98.1 89 18 114/52 98 Mechanical Ventilator 40 02/18/17 03:00 93 18 105/48 98 Mechanical Ventilator 40 02/18/17 02:35 89 20 40 02/18/17 02:00 93 18 123/52 96 Mechanical Ventilator 40 02/18/17 01:16 89 20 40 02/18/17 01:00 90 18 133/47 99 Mechanical Ventilator 40 02/18/17 00:00 40 02/18/17 00:00 98.5 85 18 123/45 98 Mechanical Ventilator 40 02/18/17 00:00 93 Intake and Output 02/18/17 02/19/17 19:00 07:00 Intake Total 520 ml 155 ml Output Total 200 ml Balance 320 ml 155 ml Free Water 50 ml Tube Feeding 350 ml 105 ml Other 120 ml 50 ml Stool Total 200 ml Laboratory Tests 02/18/17 04:00: White Blood Count 8.5, Red Blood Count 2.61L, Hemoglobin 8.4L, Hematocrit 25.7L , Mean Corpuscular Volume 98, Mean Corpuscular Hemoglobin 32.3H, Mean Corpuscular Hemoglobin Concent 32.9, Red Cell Distribution Width 17.4H, Platelet Count 96L, Mean Platelet Volume 8.9, Neutrophils (%) (Auto) , Lymphocytes (%) (Auto) , Monocytes (%) (Auto) , Eosinophils (%) (Auto) , Basophils (%) (Auto) , Differential Total Cells Counted 100, Neutrophils % ( Manual) 74, Lymphocytes % (Manual) 13L, Monocytes % (Manual) 9, Eosinophils % ( Manual) 4H, Basophils % (Manual) 0, Band Neutrophils 0, Platelet Estimate DecreasedL, Platelet Morphology Normal, Hypochromasia 2+, Anisocytosis 1+, Spherocytes 1+, Sodium Level 141, Potassium Level 3.1L, Chloride Level 102, Carbon Dioxide Level 30, Anion Gap 9, Blood Urea Nitrogen 21H, Creatinine 3.3H, Estimat Glomerular Filtration Rate , Glucose Level 146H, Calcium Level 9.2, Total Bilirubin 2.7H, Direct Bilirubin 1.8H, Aspartate Amino Transf (AST/SGOT) 33, Alanine Aminotransferase (ALT/SGPT) 8L, Alkaline Phosphatase 172H, Pro-B- Type Natriuretic Peptide 67101C, Total Protein 6.2L, Albumin 1.7L, Globulin 4.5 , Albumin/Globulin Ratio 0.4L Height (Feet): 5 Height (Inches): 5.00 Weight (Pounds): 256 Objective Obese WW NCAT, (+) trach supple CTA RRR soft ND NT, (+) PEG (+) edema confused KIERSTEN DAVIES Feb 18, 2017 23:25
[2017-02-19] VITALS: BP 142/64
[2017-02-19] MEDS: NovoLOG Insulin Flexpen SUBQ SCH ×6 (02:12→20:54)
[2017-02-19 04:00] VITALS: BP 132/56
[2017-02-19 04:57] LABS: BASOPHILS % (AUTO) 0.8 % (0.0-2.0); EOSINOPHILS % (AUTO) 6.1 % (0.0-3.0); HEMATOCRIT 27.8 % (37.0-47.0); HEMOGLOBIN 8.7 G/DL (12.0-16.0); LYMPHOCYTES % (AUTO) 16.1 % (20.0-45.0); MEAN CORPUSCULAR VOLUME 99 FL (80-99); MONOCYTES % (AUTO) 7.2 % (1.0-10.0); NEUTROPHILS % (AUTO) 69.9 % (45.0-75.0); PLATELET COUNT 104 K/UL (150-450); RED BLOOD COUNT 2.81 M/UL (4.20-5.40); RED CELL DISTRIBUTION WIDTH 17.8 % (11.6-14.8); WHITE BLOOD COUNT 10.8 K/UL (4.8-10.8)
[2017-02-19 05:34] LABS: ALANINE AMINOTRANSFERASE 7 U/L (12-78); ALBUMIN 1.7 G/DL (3.4-5.0); ALBUMIN/GLOBULIN RATIO 0.4 (1.0-2.7); ALKALINE PHOSPHATASE 205 U/L (46-116); ANION GAP 5 mmol/L (5-15); ASPARTATE AMINO TRANSFERASE 33 U/L (15-37); BILIRUBIN,DIRECT 1.8 MG/DL (0.0-0.3); BILIRUBIN,TOTAL 2.7 MG/DL (0.2-1.0); BLOOD UREA NITROGEN 27 mg/dL (7-18); CALCIUM 9.5 MG/DL (8.5-10.1); CARBON DIOXIDE 31 MMOL/L (21-32); CHLORIDE 100 MMOL/L (98-107); SODIUM 136 MMOL/L (136-145)
[2017-02-19] MEDS: Midodrine 10mg tab NG SCH ×2 (06:00→14:00)
[2017-02-19 08:00] VITALS: BP 111/47
[2017-02-19] MEDS: Nystatin Powder 100,000 units/gm 15gm TOPIC SCH ×3 (09:11→17:15)
--- NOTE | 2017-02-19 10:44 | Cardiac Electrophysiology PN ---
Assessment/Plan Assessment/Plan 1. CHF due to diastolic dysfunction, EF 60 %. On dialysis. 2. S/P Shock, resolved.Off pressors 3. Bradycardia resolved, off dopamine. On midodrine 5 tid 4. Vent dependent respiratory failure.S/P Tracheostomy 02/17/17. 5. Hyperlipidemia. 6. Cirrhosis 7. Anemia with hemoglobin of 8. 8. Hypernatremia 9. DNR 10. ESRD on HD. Perm Cath? 11. DM 12. Dysphagia, S/P PEG 02/12/17 DW RN Subjective Subjective Transferred out of ICU on Vent via Tracheostomy getting dialysis. Objective Last 24 Hour Vital Signs Date Time Temp Pulse Resp B/P (MAP) Pulse Ox O2 Delivery O2 Flow Rate FiO2 02/19/17 09:28 101 20 40 02/19/17 08:20 Mechanical Ventilator 40 02/19/17 08:00 40 02/19/17 08:00 98.8 99 20 111/47 99 Mechanical Ventilator 40 02/19/17 08:00 98 02/19/17 07:28 94 20 40 02/19/17 05:14 101 20 40 02/19/17 04:00 98.1 106 20 132/56 99 Mechanical Ventilator 40 02/19/17 04:00 103 02/19/17 04:00 40 02/19/17 03:19 105 20 40 02/19/17 00:38 99 20 40 02/19/17 00:00 40 02/19/17 00:00 97.3 100 20 142/64 100 Mechanical Ventilator 40 02/19/17 00:00 99 02/18/17 23:01 94 20 40 02/18/17 21:25 90 20 40 02/18/17 20:22 94 02/18/17 20:00 40 02/18/17 20:00 98.1 97 20 137/67 96 Mechanical Ventilator 40 02/18/17 19:27 89 20 40 02/18/17 18:00 98.9 87 20 137/63 98 Mechanical Ventilator 40 02/18/17 17:00 98 19 114/65 99 Mechanical Ventilator 40 02/18/17 16:51 93 20 40 02/18/17 16:00 98.4 94 19 108/46 99 Mechanical Ventilator 40 02/18/17 16:00 90 02/18/17 16:00 40 02/18/17 15:28 96 20 40 02/18/17 15:00 95 19 98/37 98 Mechanical Ventilator 40 02/18/17 14:00 92 18 138/54 97 Mechanical Ventilator 40 02/18/17 13:11 98.5 90 20 124/47 99 Mechanical Ventilator 40 02/18/17 12:59 80 20 40 02/18/17 12:00 40 02/18/17 12:00 88 18 109/41 99 Mechanical Ventilator 40 02/18/17 11:15 115/45 02/18/17 11:00 99 24 115/45 97 Mechanical Ventilator 40 02/18/17 10:45 109 22 40 Laboratory Tests Test 02/19/17 03:05 White Blood Count 10.8 K/UL (4.8-10.8) Red Blood Count 2.81 M/UL (4.20-5.40) L Hemoglobin 8.7 G/DL (12.0-16.0) L Hematocrit 27.8 % (37.0-47.0) L Mean Corpuscular Volume 99 FL (80-99) Mean Corpuscular Hemoglobin 30.8 PG (27.0-31.0) Mean Corpuscular Hemoglobin Concent 31.2 G/DL (32.0-36.0) L Red Cell Distribution Width 17.8 % (11.6-14.8) H Platelet Count 104 K/UL (150-450) L Mean Platelet Volume 9.5 FL (6.5-10.1) Neutrophils (%) (Auto) 69.9 % (45.0-75.0) Lymphocytes (%) (Auto) 16.1 % (20.0-45.0) L Monocytes (%) (Auto) 7.2 % (1.0-10.0) Eosinophils (%) (Auto) 6.1 % (0.0-3.0) H Basophils (%) (Auto) 0.8 % (0.0-2.0) Sodium Level 136 MMOL/L (136-145) Potassium Level 3.0 MMOL/L (3.5-5.1) L Chloride Level 100 MMOL/L (98-107) Carbon Dioxide Level 31 MMOL/L (21-32) Anion Gap 5 mmol/L (5-15) Blood Urea Nitrogen 27 mg/dL (7-18) H Creatinine 4.0 MG/DL (0.55-1.30) H Estimat Glomerular Filtration Rate mL/min (>60) Glucose Level 194 MG/DL (74-106) H Calcium Level 9.5 MG/DL (8.5-10.1) Total Bilirubin 2.7 MG/DL (0.2-1.0) H Direct Bilirubin 1.8 MG/DL (0.0-0.3) H Aspartate Amino Transf (AST/SGOT) 33 U/L (15-37) Alanine Aminotransferase (ALT/SGPT) 7 U/L (12-78) L Alkaline Phosphatase 205 U/L (46-116) H Pro-B-Type Natriuretic Peptide 40312 pg/mL (0-125) H Total Protein 6.5 G/DL (6.4-8.2) Albumin 1.7 G/DL (3.4-5.0) L Globulin 4.8 g/dL Albumin/Globulin Ratio 0.4 (1.0-2.7) L Random Vancomycin Level 29.9 ug/mL Microbiology Date/Time Source Procedure Growth Status 02/16/17 14:28 Blood Blood Culture - Preliminary NO GROWTH AFTER 48 HOURS Resulted 02/16/17 13:00 Sputum Gram Stain - Final Resulted 02/16/17 13:00 Sputum Culture - Preliminary A.baumanii Complx - Mdr Gram Negative Bacillus 2 Resulted Objective HEAD AND NECK: No JVD. Right IJ Mahurkar Catheter in place. S/P Tracheostomy. LUNGS: Coarse rhonchi CARDIOVASCULAR: Regular S1 and S2 with no gallop or murmur. ABDOMEN: Soft and nontender and obese.PEG in place EXTREMITIES: 1+ pitting edema. DEAN SHAW Feb 19, 2017 10:44
[2017-02-19 12:00] VITALS: BP 110/55
--- NOTE | 2017-02-19 12:08 | Infectious Diseases Prog Note ---
Assessment/Plan Assessment/Plan Assesment: +ve blood Cx 04/21 CoNS and yeast , probable infected HD access Sepsis, SP HCAP 2ry to ESBL. E.coli, s/p Rx Scx : GNR and MDR ACB ( colonizer ) -repeat sp cx 01/26: +4 MDR A.baumani (I Ceftazidime, R to carbapenem and aminoglycosides, Minocycline; S to Colistin, Polymyxin B) suspect Colonizer ( improving not on tx)-s/p INH Colistin Tx -Sp cx 01/22: +2 ESBK E.coli, +2 C. albicans (colonizer) -01/16 04/23 BCx MRSA (S. Vanco JOSE A 1), repeat Bcx 01/19 Neg, 01/21 04/23 CoNS ( contaminant), 01/24 Bcx 04/23 CoNs, Bcx 01/26 Neg x4, 01/28 BCx neg cxray : stable 02/18 Leukocytosis, SP Elevated LFTs, improving -[facility] hep panel neg Probable MDR UTI, pyuria, s/p Rx -u/a 01/16 WBC too many to count,nit neg ,leuk est +3; UCx x3 grew >100K MDR A.baumani complex (S. tigecycline/Minocycline, Polymixin B/Colistin), >100K PsA (S. Cefepime, Zosyn; R Cipro/Levo); a prior isolated on a ucx from the same day isolated MDR PsA (I. Cefepime, R ceftzadime, Meropenem; S. Tygecicine, amikacin) -renal u/s: Nondiagnostic exam Acute respiratory failure 2ry to hypercapnea, PNA; now ARDS - self-extubated, re -intubated 02/04 , trach 02/17 RAMYA on CKD, started on HD 01/28 Encephalopathy- possibly multifactorial- hepatic encephalopathy, infection- worsening now due to hypercapnea (transferred to ICU 01/21), on bipap> intubated Cirrhosis Anemia & thrombocytopenia DM type 2 Morbid obesity DNR PLAN: - cont IV Vanco d# 2 ,add Mycamine d# 1 -s/p 7d IV Vancomcyin 02/11 -s/p 18d prophylatic PO Vanco 02/09 -s/p 19d Ertapenem 02/09 -s/p 10d INH Colistin 02/07 for MDR ABC in sputum -02/03 s/p IV Vancomycin #15/14 -s/p 1 dose Amikacin / -s/p 7d Cefepime 10 -s/p 3d Amikacin 10 -s/p 7d Minocycline 10 -s/p 3d IV vanco 10/ -f/u cocci ab -Repeat blood cultures - follow cultures monitor CBC, temperatures monitor BMP monitor CXR vent support, trach eventually need HD access removal ( DW Nephr and PCP ) Subjective Allergies: Coded Allergies: PENICILLINS (Unverified Allergy, Unknown, 03/22/15) Subjective on vent Objective Vital Signs Last 24 Hour Vital Signs Date Time Temp Pulse Resp B/P (MAP) Pulse Ox O2 Delivery O2 Flow Rate FiO2 02/19/17 11:29 107 21 40 02/19/17 09:28 101 20 40 02/19/17 08:20 Mechanical Ventilator 40 02/19/17 08:00 40 02/19/17 08:00 98.8 99 20 111/47 99 Mechanical Ventilator 40 02/19/17 08:00 98 02/19/17 07:28 94 20 40 02/19/17 05:14 101 20 40 02/19/17 04:00 98.1 106 20 132/56 99 Mechanical Ventilator 40 02/19/17 04:00 103 02/19/17 04:00 40 02/19/17 03:19 105 20 40 02/19/17 00:38 99 20 40 02/19/17 00:00 40 02/19/17 00:00 97.3 100 20 142/64 100 Mechanical Ventilator 40 02/19/17 00:00 99 02/18/17 23:01 94 20 40 02/18/17 21:25 90 20 40 02/18/17 20:22 94 02/18/17 20:00 40 02/18/17 20:00 98.1 97 20 137/67 96 Mechanical Ventilator 40 02/18/17 19:27 89 20 40 02/18/17 18:00 98.9 87 20 137/63 98 Mechanical Ventilator 40 02/18/17 17:00 98 19 114/65 99 Mechanical Ventilator 40 02/18/17 16:51 93 20 40 02/18/17 16:00 98.4 94 19 108/46 99 Mechanical Ventilator 40 02/18/17 16:00 90 02/18/17 16:00 40 02/18/17 15:28 96 20 40 02/18/17 15:00 95 19 98/37 98 Mechanical Ventilator 40 02/18/17 14:00 92 18 138/54 97 Mechanical Ventilator 40 02/18/17 13:11 98.5 90 20 124/47 99 Mechanical Ventilator 40 02/18/17 12:59 80 20 40 Height (Feet): 5 Height (Inches): 5.00 Weight (Pounds): 256 Respiratory/Chest: no respiratory distress Cardiovascular: regular rhythm Abdomen: no organomegaly Microbiology Date/Time Source Procedure Growth Status 02/16/17 14:28 Blood Blood Culture - Preliminary NO GROWTH AFTER 48 HOURS Resulted 02/16/17 13:00 Sputum Gram Stain - Final Resulted 02/16/17 13:00 Sputum Culture - Preliminary A.baumanii Complx - Mdr Gram Negative Bacillus 2 Resulted Laboratory Tests Test 02/19/17 03:05 White Blood Count 10.8 K/UL (4.8-10.8) Red Blood Count 2.81 M/UL (4.20-5.40) L Hemoglobin 8.7 G/DL (12.0-16.0) L Hematocrit 27.8 % (37.0-47.0) L Mean Corpuscular Volume 99 FL (80-99) Mean Corpuscular Hemoglobin 30.8 PG (27.0-31.0) Mean Corpuscular Hemoglobin Concent 31.2 G/DL (32.0-36.0) L Red Cell Distribution Width 17.8 % (11.6-14.8) H Platelet Count 104 K/UL (150-450) L Mean Platelet Volume 9.5 FL (6.5-10.1) Neutrophils (%) (Auto) 69.9 % (45.0-75.0) Lymphocytes (%) (Auto) 16.1 % (20.0-45.0) L Monocytes (%) (Auto) 7.2 % (1.0-10.0) Eosinophils (%) (Auto) 6.1 % (0.0-3.0) H Basophils (%) (Auto) 0.8 % (0.0-2.0) Sodium Level 136 MMOL/L (136-145) Potassium Level 3.0 MMOL/L (3.5-5.1) L Chloride Level 100 MMOL/L (98-107) Carbon Dioxide Level 31 MMOL/L (21-32) Anion Gap 5 mmol/L (5-15) Blood Urea Nitrogen 27 mg/dL (7-18) H Creatinine 4.0 MG/DL (0.55-1.30) H Estimat Glomerular Filtration Rate mL/min (>60) Glucose Level 194 MG/DL (74-106) H Calcium Level 9.5 MG/DL (8.5-10.1) Total Bilirubin 2.7 MG/DL (0.2-1.0) H Direct Bilirubin 1.8 MG/DL (0.0-0.3) H Aspartate Amino Transf (AST/SGOT) 33 U/L (15-37) Alanine Aminotransferase (ALT/SGPT) 7 U/L (12-78) L Alkaline Phosphatase 205 U/L (46-116) H Pro-B-Type Natriuretic Peptide 18003 pg/mL (0-125) H Total Protein 6.5 G/DL (6.4-8.2) Albumin 1.7 G/DL (3.4-5.0) L Globulin 4.8 g/dL Albumin/Globulin Ratio 0.4 (1.0-2.7) L Random Vancomycin Level 29.9 ug/mL Current Medications Medications (Trade) Dose Ordered Sig/Pavel Route PRN Reason Start Time Stop Time Status Last Admin Dose Admin Chlorhexidine Gluconate (Dianne-Hex 2%) 1 applic DAILY@1999 TOPIC 02/18/17 20:00 02/24/17 19:59 02/18/17 20:22 Dextrose (Dextrose 50%) STAT PRN IV Hypoglycemia 02/18/17 18:00 03/20/17 17:59 Insulin Aspart (NovoLOG) EVERY 4 HOURS SUBQ 02/18/17 21:00 03/08/17 11:59 02/19/17 09:10 Lorazepam (Ativan 2mg/ml 1ml) 2 mg Q2H PRN IV For Anxiety 02/18/17 18:00 02/25/17 17:59 Metoclopramide HCl (Reglan) 5 mg Q8H PRN IVP Nausea & Vomiting 02/18/17 18:00 02/28/17 17:59 Midodrine (Pro-Amatine) 10 mg Q8HR NG 02/18/17 22:00 03/05/17 13:59 Nystatin (Nystop Powder) 1 applic THREE TIMES A DAY TOPIC 02/18/17 18:30 02/21/17 18:29 02/19/17 09:11 Potassium Chloride 100 ml @ 50 mls/hr Q2H IVPB 02/19/17 10:00 02/19/17 13:59 02/19/17 12:04 Ranitidine HCl (Zantac) 150 mg DAILY NG 02/19/17 09:00 03/05/17 17:59 02/19/17 09:08 Rifaximin (Xifaxan) 550 mg EVERY 12 HOURS ORAL 02/18/17 21:00 03/07/17 11:59 02/19/17 09:08 Vancomycin HCl (Vanco rx to dose) 1 ea DAILYPRN PRN MISC Per rx protocol 02/19/17 09:00 03/21/17 08:59 LYLA ROJAS M.D. Feb 19, 2017 12:08
--- NOTE | 2017-02-19 13:18 | Diagnostic Imaging Report ---
Indication: DYSPNEA Technique: One view of the chest Comparison: 02/18/2017 Findings: Tracheostomy, right jugular temporary dialysis catheter remain. Bilateral diffuse interstitial and alveolar infiltrates versus edema persist. Findings are unchanged Impression: Unchanged, over one day, findings as above.
--- NOTE | 2017-02-19 13:45 | Pulmonology Progress Note ---
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 Discussed with: nurses, consultants, family caseworker Subjective ROS Limited/Unobtainable: No Constitutional: Reports: no symptoms HEENT: Repors: no symptoms Respiratory: Reports: no symptoms Allergies: Coded Allergies: PENICILLINS (Unverified Allergy, Unknown, 03/22/15) Objective Last 24 Hour Vital Signs Date Time Temp Pulse Resp B/P (MAP) Pulse Ox O2 Delivery O2 Flow Rate FiO2 02/19/17 12:00 40 02/19/17 12:00 108 02/19/17 12:00 98.4 108 20 110/55 98 Mechanical Ventilator 40 02/19/17 11:30 Mechanical Ventilator 40 02/19/17 11:29 107 21 40 02/19/17 09:28 101 20 40 02/19/17 08:20 Mechanical Ventilator 40 02/19/17 08:00 40 02/19/17 08:00 98.8 99 20 111/47 99 Mechanical Ventilator 40 02/19/17 08:00 98 02/19/17 07:28 94 20 40 02/19/17 05:14 101 20 40 02/19/17 04:00 98.1 106 20 132/56 99 Mechanical Ventilator 40 02/19/17 04:00 103 02/19/17 04:00 40 02/19/17 03:19 105 20 40 02/19/17 00:38 99 20 40 02/19/17 00:00 40 02/19/17 00:00 97.3 100 20 142/64 100 Mechanical Ventilator 40 02/19/17 00:00 99 02/18/17 23:01 94 20 40 02/18/17 21:25 90 20 40 02/18/17 20:22 94 02/18/17 20:00 40 02/18/17 20:00 98.1 97 20 137/67 96 Mechanical Ventilator 40 02/18/17 19:27 89 20 40 02/18/17 18:00 98.9 87 20 137/63 98 Mechanical Ventilator 40 02/18/17 17:00 98 19 114/65 99 Mechanical Ventilator 40 02/18/17 16:51 93 20 40 02/18/17 16:00 98.4 94 19 108/46 99 Mechanical Ventilator 40 02/18/17 16:00 90 02/18/17 16:00 40 02/18/17 15:28 96 20 40 02/18/17 15:00 95 19 98/37 98 Mechanical Ventilator 40 02/18/17 14:00 92 18 138/54 97 Mechanical Ventilator 40 Intake and Output 02/19/17 02/20/17 19:00 07:00 Output Total 3000 ml Balance -3000 ml Hemodialysis UF 3000 ml Objective General Appearance: WD/WN HEENT: normocephalic Breasts: no masses Cardiovascular: normal peripheral pulses Abdomen: normal bowel sounds, no organomegaly Genitourinary: normal external genitalia Neurologic/Psychiatric: pharmacy data analyst II-XII grossly normal Microbiology Date/Time Source Procedure Growth Status 02/16/17 14:28 Blood Blood Culture - Preliminary NO GROWTH AFTER 48 HOURS Resulted Laboratory Tests 02/19/17 03:05: White Blood Count 10.8, Red Blood Count 2.81L, Hemoglobin 8.7L, Hematocrit 27.8L , Mean Corpuscular Volume 99, Mean Corpuscular Hemoglobin 30.8, Mean Corpuscular Hemoglobin Concent 31.2L, Red Cell Distribution Width 17.8H, Platelet Count 104L, Mean Platelet Volume 9.5, Neutrophils (%) (Auto) 69.9, Lymphocytes (%) (Auto) 16.1L, Monocytes (%) (Auto) 7.2, Eosinophils (%) (Auto) 6.1H, Basophils (%) (Auto) 0.8, Sodium Level 136, Potassium Level 3.0L, Chloride Level 100, Carbon Dioxide Level 31, Anion Gap 5, Blood Urea Nitrogen 27H, Creatinine 4.0H, Estimat Glomerular Filtration Rate , Glucose Level 194H, Calcium Level 9.5, Total Bilirubin 2.7H, Direct Bilirubin 1.8H, Aspartate Amino Transf (AST/SGOT) 33, Alanine Aminotransferase (ALT/SGPT) 7L, Alkaline Phosphatase 205H, Pro-B-Type Natriuretic Peptide 66496R, Total Protein 6.5, Albumin 1.7L, Globulin 4.8, Albumin/Globulin Ratio 0.4L, Random Vancomycin Level 29.9 Current Medications Medications (Trade) Dose Ordered Sig/Pavel Route PRN Reason Start Time Stop Time Status Last Admin Dose Admin Chlorhexidine Gluconate (Dianne-Hex 2%) 1 applic DAILY@2000 TOPIC 02/18/17 20:00 02/24/17 19:59 02/18/17 20:22 Dextrose (Dextrose 50%) STAT PRN IV Hypoglycemia 02/18/17 18:00 03/20/17 17:59 Insulin Aspart (NovoLOG) EVERY 4 HOURS SUBQ 02/18/17 21:00 03/08/17 11:59 02/19/17 13:15 Lorazepam (Ativan 2mg/ml 1ml) 2 mg Q2H PRN IV For Anxiety 02/18/17 18:00 02/25/17 17:59 Metoclopramide HCl (Reglan) 5 mg Q8H PRN IVP Nausea & Vomiting 02/18/17 18:00 02/28/17 17:59 Midodrine (Pro-Amatine) 10 mg Q8HR NG 02/18/17 22:00 03/05/17 13:59 Nystatin (Nystop Powder) 1 applic THREE TIMES A DAY TOPIC 02/18/17 18:30 02/21/17 18:29 02/19/17 13:15 Potassium Chloride 100 ml @ 50 mls/hr Q2H IVPB 02/19/17 10:00 02/19/17 13:59 02/19/17 12:04 Ranitidine HCl (Zantac) 150 mg DAILY NG 02/19/17 09:00 03/05/17 17:59 02/19/17 09:08 Rifaximin (Xifaxan) 550 mg EVERY 12 HOURS ORAL 02/18/17 21:00 03/07/17 11:59 02/19/17 09:08 Vancomycin HCl (Vanco rx to dose) 1 ea DAILYPRN PRN MISC Per rx protocol 02/19/17 09:00 03/21/17 08:59 DIONI TRIANA Feb 19, 2017 13:45
--- NOTE | 2017-02-19 13:45 | Pulmonology Progress Note ---
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, renal Discussed with: nurses, consultants, human services case manager Subjective ROS Limited/Unobtainable: No Constitutional: Reports: no symptoms HEENT: Repors: no symptoms Respiratory: Reports: no symptoms Allergies: Coded Allergies: PENICILLINS (Unverified Allergy, Unknown, 03/22/15) Objective Last 24 Hour Vital Signs Date Time Temp Pulse Resp B/P (MAP) Pulse Ox O2 Delivery O2 Flow Rate FiO2 02/19/17 12:00 40 02/19/17 12:00 108 02/19/17 12:00 98.4 108 20 110/55 98 Mechanical Ventilator 40 02/19/17 11:30 Mechanical Ventilator 40 02/19/17 11:29 107 21 40 02/19/17 09:28 101 20 40 02/19/17 08:20 Mechanical Ventilator 40 02/19/17 08:00 40 02/19/17 08:00 98.8 99 20 111/47 99 Mechanical Ventilator 40 02/19/17 08:00 98 02/19/17 07:28 94 20 40 02/19/17 05:14 101 20 40 02/19/17 04:00 98.1 106 20 132/56 99 Mechanical Ventilator 40 02/19/17 04:00 103 02/19/17 04:00 40 02/19/17 03:19 105 20 40 02/19/17 00:38 99 20 40 02/19/17 00:00 40 02/19/17 00:00 97.3 100 20 142/64 100 Mechanical Ventilator 40 02/19/17 00:00 99 02/18/17 23:01 94 20 40 02/18/17 21:25 90 20 40 02/18/17 20:22 94 02/18/17 20:00 40 02/18/17 20:00 98.1 97 20 137/67 96 Mechanical Ventilator 40 02/18/17 19:27 89 20 40 02/18/17 18:00 98.9 87 20 137/63 98 Mechanical Ventilator 40 02/18/17 17:00 98 19 114/65 99 Mechanical Ventilator 40 02/18/17 16:51 93 20 40 02/18/17 16:00 98.4 94 19 108/46 99 Mechanical Ventilator 40 02/18/17 16:00 90 02/18/17 16:00 40 02/18/17 15:28 96 20 40 02/18/17 15:00 95 19 98/37 98 Mechanical Ventilator 40 02/18/17 14:00 92 18 138/54 97 Mechanical Ventilator 40 Intake and Output 02/19/17 02/20/17 19:00 07:00 Output Total 3000 ml Balance -3000 ml Hemodialysis UF 3000 ml Objective General Appearance: WD/WN HEENT: normocephalic Breasts: no masses Cardiovascular: normal peripheral pulses Abdomen: normal bowel sounds, no organomegaly Genitourinary: normal external genitalia Neurologic/Psychiatric: return agent airport II-XII grossly normal Microbiology Date/Time Source Procedure Growth Status 02/16/17 14:28 Blood Blood Culture - Preliminary NO GROWTH AFTER 48 HOURS Resulted Laboratory Tests 02/19/17 03:05: White Blood Count 10.8, Red Blood Count 2.81L, Hemoglobin 8.7L, Hematocrit 27.8L , Mean Corpuscular Volume 99, Mean Corpuscular Hemoglobin 30.8, Mean Corpuscular Hemoglobin Concent 31.2L, Red Cell Distribution Width 17.8H, Platelet Count 104L, Mean Platelet Volume 9.5, Neutrophils (%) (Auto) 69.9, Lymphocytes (%) (Auto) 16.1L, Monocytes (%) (Auto) 7.2, Eosinophils (%) (Auto) 6.1H, Basophils (%) (Auto) 0.8, Sodium Level 136, Potassium Level 3.0L, Chloride Level 100, Carbon Dioxide Level 31, Anion Gap 5, Blood Urea Nitrogen 27H, Creatinine 4.0H, Estimat Glomerular Filtration Rate , Glucose Level 194H, Calcium Level 9.5, Total Bilirubin 2.7H, Direct Bilirubin 1.8H, Aspartate Amino Transf (AST/SGOT) 33, Alanine Aminotransferase (ALT/SGPT) 7L, Alkaline Phosphatase 205H, Pro-B-Type Natriuretic Peptide [id number], Total Protein 6.5, Albumin 1.7L, Globulin 4.8, Albumin/Globulin Ratio 0.4L, Random Vancomycin Level 29.9 Current Medications Medications (Trade) Dose Ordered Sig/Pavel Route PRN Reason Start Time Stop Time Status Last Admin Dose Admin Chlorhexidine Gluconate (Dianne-Hex 2%) 1 applic DAILY@2000 TOPIC 02/18/17 20:00 02/24/17 19:59 02/18/17 20:22 Dextrose (Dextrose 50%) STAT PRN IV Hypoglycemia 02/18/17 18:00 03/20/17 17:59 Insulin Aspart (NovoLOG) EVERY 4 HOURS SUBQ 02/18/17 21:00 03/08/17 11:59 02/19/17 13:15 Lorazepam (Ativan 2mg/ml 1ml) 2 mg Q2H PRN IV For Anxiety 02/18/17 18:00 02/25/17 17:59 Metoclopramide HCl (Reglan) 5 mg Q8H PRN IVP Nausea & Vomiting 02/18/17 18:00 02/28/17 17:59 Midodrine (Pro-Amatine) 10 mg Q8HR NG 02/18/17 22:00 03/05/17 13:59 Nystatin (Nystop Powder) 1 applic THREE TIMES A DAY TOPIC 02/18/17 18:30 02/21/17 18:29 02/19/17 13:15 Potassium Chloride 100 ml @ 50 mls/hr Q2H IVPB 02/19/17 10:00 02/19/17 13:59 02/19/17 12:04 Ranitidine HCl (Zantac) 150 mg DAILY NG 02/19/17 09:00 03/05/17 17:59 02/19/17 09:08 Rifaximin (Xifaxan) 550 mg EVERY 12 HOURS ORAL 02/18/17 21:00 03/07/17 11:59 02/19/17 09:08 Vancomycin HCl (Vanco rx to dose) 1 ea DAILYPRN PRN MISC Per rx protocol 02/19/17 09:00 03/21/17 08:59 DIONI TRIANA Feb 19, 2017 13:45
--- NOTE | 2017-02-19 13:45 | Pulmonology Progress Note ---
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, renal Discussed with: nurses, consultants, machine adjuster leader case trim Subjective ROS Limited/Unobtainable: No Constitutional: Reports: no symptoms HEENT: Repors: no symptoms Respiratory: Reports: no symptoms Allergies: Coded Allergies: PENICILLINS (Unverified Allergy, Unknown, 03/22/15) Objective Last 24 Hour Vital Signs Date Time Temp Pulse Resp B/P (MAP) Pulse Ox O2 Delivery O2 Flow Rate FiO2 02/19/17 12:00 40 02/19/17 12:00 108 02/19/17 12:00 98.4 108 20 110/55 98 Mechanical Ventilator 40 02/19/17 11:30 Mechanical Ventilator 40 02/19/17 11:29 107 21 40 02/19/17 09:28 101 20 40 02/19/17 08:20 Mechanical Ventilator 40 02/19/17 08:00 40 02/19/17 08:00 98.8 99 20 111/47 99 Mechanical Ventilator 40 02/19/17 08:00 98 02/19/17 07:28 94 20 40 02/19/17 05:14 101 20 40 02/19/17 04:00 98.1 106 20 132/56 99 Mechanical Ventilator 40 02/19/17 04:00 103 02/19/17 04:00 40 02/19/17 03:19 105 20 40 02/19/17 00:38 99 20 40 02/19/17 00:00 40 02/19/17 00:00 97.3 100 20 142/64 100 Mechanical Ventilator 40 02/19/17 00:00 99 02/18/17 23:01 94 20 40 02/18/17 21:25 90 20 40 02/18/17 20:22 94 02/18/17 20:00 40 02/18/17 20:00 98.1 97 20 137/67 96 Mechanical Ventilator 40 02/18/17 19:27 89 20 40 02/18/17 18:00 98.9 87 20 137/63 98 Mechanical Ventilator 40 02/18/17 17:00 98 19 114/65 99 Mechanical Ventilator 40 02/18/17 16:51 93 20 40 02/18/17 16:00 98.4 94 19 108/46 99 Mechanical Ventilator 40 02/18/17 16:00 90 02/18/17 16:00 40 02/18/17 15:28 96 20 40 02/18/17 15:00 95 19 98/37 98 Mechanical Ventilator 40 02/18/17 14:00 92 18 138/54 97 Mechanical Ventilator 40 Intake and Output 02/19/17 02/20/17 19:00 07:00 Output Total 3000 ml Balance -3000 ml Hemodialysis UF 3000 ml Objective General Appearance: WD/WN HEENT: normocephalic Breasts: no masses Cardiovascular: normal peripheral pulses Abdomen: normal bowel sounds, no organomegaly Genitourinary: normal external genitalia 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 normal Microbiology Date/Time Source Procedure Growth Status 02/16/17 14:28 Blood Blood Culture - Preliminary NO GROWTH AFTER 48 HOURS Resulted Laboratory Tests 02/19/17 03:05: White Blood Count 10.8, Red Blood Count 2.81L, Hemoglobin 8.7L, Hematocrit 27.8L , Mean Corpuscular Volume 99, Mean Corpuscular Hemoglobin 30.8, Mean Corpuscular Hemoglobin Concent 31.2L, Red Cell Distribution Width 17.8H, Platelet Count 104L, Mean Platelet Volume 9.5, Neutrophils (%) (Auto) 69.9, Lymphocytes (%) (Auto) 16.1L, Monocytes (%) (Auto) 7.2, Eosinophils (%) (Auto) 6.1H, Basophils (%) (Auto) 0.8, Sodium Level 136, Potassium Level 3.0L, Chloride Level 100, Carbon Dioxide Level 31, Anion Gap 5, Blood Urea Nitrogen 27H, Creatinine 4.0H, Estimat Glomerular Filtration Rate , Glucose Level 194H, Calcium Level 9.5, Total Bilirubin 2.7H, Direct Bilirubin 1.8H, Aspartate Amino Transf (AST/SGOT) 33, Alanine Aminotransferase (ALT/SGPT) 7L, Alkaline Phosphatase 205H, Pro-B-Type Natriuretic Peptide [id number], Total Protein 6.5, Albumin 1.7L, Globulin 4.8, Albumin/Globulin Ratio 0.4L, Random Vancomycin Level 29.9 Current Medications Medications (Trade) Dose Ordered Sig/Pavel Route PRN Reason Start Time Stop Time Status Last Admin Dose Admin Chlorhexidine Gluconate (Dianne-Hex 2%) 1 applic DAILY@2000 TOPIC 02/18/17 20:00 02/24/17 19:59 02/18/17 20:22 Dextrose (Dextrose 50%) STAT PRN IV Hypoglycemia 02/18/17 18:00 03/20/17 17:59 Insulin Aspart (NovoLOG) EVERY 4 HOURS SUBQ 02/18/17 21:00 03/08/17 11:59 02/19/17 13:15 Lorazepam (Ativan 2mg/ml 1ml) 2 mg Q2H PRN IV For Anxiety 02/18/17 18:00 02/25/17 17:59 Metoclopramide HCl (Reglan) 5 mg Q8H PRN IVP Nausea & Vomiting 02/18/17 18:00 02/28/17 17:59 Midodrine (Pro-Amatine) 10 mg Q8HR NG 02/18/17 22:00 03/05/17 13:59 Nystatin (Nystop Powder) 1 applic THREE TIMES A DAY TOPIC 02/18/17 18:30 02/21/17 18:29 02/19/17 13:15 Potassium Chloride 100 ml @ 50 mls/hr Q2H IVPB 02/19/17 10:00 02/19/17 13:59 02/19/17 12:04 Ranitidine HCl (Zantac) 150 mg DAILY NG 02/19/17 09:00 03/05/17 17:59 02/19/17 09:08 Rifaximin (Xifaxan) 550 mg EVERY 12 HOURS ORAL 02/18/17 21:00 03/07/17 11:59 02/19/17 09:08 Vancomycin HCl (Vanco rx to dose) 1 ea DAILYPRN PRN MISC Per rx protocol 02/19/17 09:00 03/21/17 08:59 DIONI TRIANA Feb 19, 2017 13:45
[2017-02-19] MEDS ORDERED: Micafungin 100 MG in NS 110 ML IVPB SCH (15:00)
[2017-02-19 16:00] VITALS: BP 116/53
--- NOTE | 2017-02-19 17:45 | Internal Med Progress Note ---
Subjective Date of Service: Feb 19, 2017 Physician Name Katharina Pond Attending Physician Rl Tee MD Current Medications Medications (Trade) Dose Ordered Sig/Pavel Route PRN Reason Start Time Stop Time Status Last Admin Dose Admin Chlorhexidine Gluconate (Dianne-Hex 2%) 1 applic DAILY@1999 TOPIC 02/18/17 20:00 02/24/17 19:59 02/18/17 20:22 Dextrose (Dextrose 50%) STAT PRN IV Hypoglycemia 02/18/17 18:00 03/20/17 17:59 Insulin Aspart (NovoLOG) EVERY 4 HOURS SUBQ 02/18/17 21:00 03/08/17 11:59 02/19/17 17:15 Lorazepam (Ativan 2mg/ml 1ml) 2 mg Q2H PRN IV For Anxiety 02/18/17 18:00 02/25/17 17:59 Metoclopramide HCl (Reglan) 5 mg Q8H PRN IVP Nausea & Vomiting 02/18/17 18:00 02/28/17 17:59 Micafungin Sodium 100 mg/Sodium Chloride 110 ml @ 110 mls/hr Q24H IVPB 02/19/17 15:00 02/26/17 14:59 02/19/17 16:05 Midodrine (Pro-Amatine) 10 mg Q8HR NG 02/18/17 22:00 03/05/17 13:59 Nystatin (Nystop Powder) 1 applic THREE TIMES A DAY TOPIC 02/18/17 18:30 02/21/17 18:29 02/19/17 17:15 Ranitidine HCl (Zantac) 150 mg DAILY NG 02/19/17 09:00 03/05/17 17:59 02/19/17 09:08 Rifaximin (Xifaxan) 550 mg EVERY 12 HOURS ORAL 02/18/17 21:00 03/07/17 11:59 02/19/17 09:08 Vancomycin HCl (Vanco rx to dose) 1 ea DAILYPRN PRN MISC Per rx protocol 02/19/17 09:00 03/21/17 08:59 Allergies: Coded Allergies: PENICILLINS (Unverified Allergy, Unknown, 03/22/15) Subjective 76 YO F admitted with altered mental status. Intubated and sedated. KAREN . Cover for Int Med-Dr Tee. S/P PEG 02/12/17. S/P tracheostomy on Tue . Await transfer to [facility] today Objective Last Vital Signs Date Time Temp Pulse Resp B/P (MAP) Pulse Ox O2 Delivery O2 Flow Rate FiO2 02/19/17 17:23 111 18 40 02/19/17 16:00 97.9 116/53 99 Mechanical Ventilator 02/17/17 11:18 15.0 Laboratory Tests Test 02/19/17 03:05 White Blood Count 10.8 K/UL (4.8-10.8) Red Blood Count 2.81 M/UL (4.20-5.40) L Hemoglobin 8.7 G/DL (12.0-16.0) L Hematocrit 27.8 % (37.0-47.0) L Mean Corpuscular Volume 99 FL (80-99) Mean Corpuscular Hemoglobin 30.8 PG (27.0-31.0) Mean Corpuscular Hemoglobin Concent 31.2 G/DL (32.0-36.0) L Red Cell Distribution Width 17.8 % (11.6-14.8) H Platelet Count 104 K/UL (150-450) L Mean Platelet Volume 9.5 FL (6.5-10.1) Neutrophils (%) (Auto) 69.9 % (45.0-75.0) Lymphocytes (%) (Auto) 16.1 % (20.0-45.0) L Monocytes (%) (Auto) 7.2 % (1.0-10.0) Eosinophils (%) (Auto) 6.1 % (0.0-3.0) H Basophils (%) (Auto) 0.8 % (0.0-2.0) Sodium Level 136 MMOL/L (136-145) Potassium Level 3.0 MMOL/L (3.5-5.1) L Chloride Level 100 MMOL/L (98-107) Carbon Dioxide Level 31 MMOL/L (21-32) Anion Gap 5 mmol/L (5-15) Blood Urea Nitrogen 27 mg/dL (7-18) H Creatinine 4.0 MG/DL (0.55-1.30) H Estimat Glomerular Filtration Rate mL/min (>60) Glucose Level 194 MG/DL (74-106) H Calcium Level 9.5 MG/DL (8.5-10.1) Total Bilirubin 2.7 MG/DL (0.2-1.0) H Direct Bilirubin 1.8 MG/DL (0.0-0.3) H Aspartate Amino Transf (AST/SGOT) 33 U/L (15-37) Alanine Aminotransferase (ALT/SGPT) 7 U/L (12-78) L Alkaline Phosphatase 205 U/L (46-116) H Pro-B-Type Natriuretic Peptide 25196 pg/mL (0-125) H Total Protein 6.5 G/DL (6.4-8.2) Albumin 1.7 G/DL (3.4-5.0) L Globulin 4.8 g/dL Albumin/Globulin Ratio 0.4 (1.0-2.7) L Random Vancomycin Level 29.9 ug/mL Intake and Output 02/19/17 02/20/17 19:00 07:00 Intake Total 255 ml Output Total 3000 ml Balance -2745 ml Free Water 150 ml Tube Feeding 105 ml Hemodialysis UF 3000 ml Objective General Appearance: WD/WN, no apparent distress, moderate distress, obese EENT: PERRL/EOMI, normal ENT inspection Neck: non-tender, normal alignment, supple, normal inspection Cardiovascular: normal peripheral pulses, normal rate, regular rhythm, no gallop/murmur, no JVD Respiratory/Chest: Mechanical vent; tracheostomy; chest wall non-tender, lungs with coarse upper air sounds, Bilat wheezes and rales, respiratory distress Abdomen: G-Tube; non tender, no organomegaly, no mass 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 Baumanii. See ID note. Continur ertaoenem and vanco per ID (2) CHF (congestive heart failure) Assessment & Plan: LVEF 60-65%. see cardiology note. (3) DM (diabetes mellitus) Assessment & Plan: Continue novolog sliding scale (4) Hypercholesteremia (5) HTN (hypertension) Assessment & Plan: Currently hypotensive. (6) Uncontrolled diabetes mellitus (7) Cirrhosis Assessment & Plan: see GI note. (8) Anemia Assessment & Plan: S/P transfusion 2 units PRBC (9) Altered mental status Assessment & Plan: Worsening. ICU status (10) Renal failure Assessment & Plan: Next hemodialysis 02/17/17. See nephrology note. (11) Respiratory failure Assessment & Plan: Due to CHF. Cont mech vent per pulmonary-S/P tracheostomy 02/17/17. Continue antibiotic per ID (12) Bradycardia Assessment & Plan: see cardiology note. (13) Hypotension Assessment & Plan: Off pressors Assessment/Plan Transfer to [facility] KATHARINA POND Feb 19, 2017 17:45
--- NOTE | 2017-02-19 17:59 | General Progress Note ---
Assessment/Plan Status: stable Status Narrative fungemia ! Assessment/Plan Acute on chronic renal failure- multifactorial CHF DM HTN Sepsis Now: Acute respiratory failure- Intubated - Altered level of consciousness - ESBL (extended spectrum beta-lactamase) producing bacteria infection - Cardiomegaly - DM (diabetes mellitus) - HTN (hypertension) - UTI (urinary tract infection) - Anemia - High Cholestrol - COPD - YELENA - Fatty liver Plan: trach 02/17 HD 02/17 and today K supplement today ? Placement K & Phos supplement as needed On midodrine Transfuse as needed, Optimize cardiac and pulmonary status 2D echo results noted avoid nephrotoxics monitor renal parameters and lytes Urine studies per orders poor prognosis favor removal of dialysis cath Subjective ROS Limited/Unobtainable: Yes Allergies: Coded Allergies: PENICILLINS (Unverified Allergy, Unknown, 03/22/15) Objective Last 24 Hour Vital Signs Date Time Temp Pulse Resp B/P (MAP) Pulse Ox O2 Delivery O2 Flow Rate FiO2 02/19/17 17:23 111 18 40 02/19/17 16:00 97.9 112 20 116/53 99 Mechanical Ventilator 40 02/19/17 16:00 40 02/19/17 16:00 112 02/19/17 15:09 117 20 40 02/19/17 13:22 110 21 40 02/19/17 12:00 40 02/19/17 12:00 108 02/19/17 12:00 98.4 108 20 110/55 98 Mechanical Ventilator 40 02/19/17 11:30 Mechanical Ventilator 40 02/19/17 11:29 107 21 40 02/19/17 09:28 101 20 40 02/19/17 08:20 Mechanical Ventilator 40 02/19/17 08:00 40 02/19/17 08:00 98.8 99 20 111/47 99 Mechanical Ventilator 40 02/19/17 08:00 98 02/19/17 07:28 94 20 40 02/19/17 05:14 101 20 40 02/19/17 04:00 98.1 106 20 132/56 99 Mechanical Ventilator 40 02/19/17 04:00 103 02/19/17 04:00 40 02/19/17 03:19 105 20 40 02/19/17 00:38 99 20 40 02/19/17 00:00 40 02/19/17 00:00 97.3 100 20 142/64 100 Mechanical Ventilator 40 02/19/17 00:00 99 02/18/17 23:01 94 20 40 02/18/17 21:25 90 20 40 02/18/17 20:22 94 02/18/17 20:00 40 02/18/17 20:00 98.1 97 20 137/67 96 Mechanical Ventilator 40 02/18/17 19:27 89 20 40 02/18/17 18:00 98.9 87 20 137/63 98 Mechanical Ventilator 40 Intake and Output 02/19/17 02/20/17 19:00 07:00 Intake Total 255 ml Output Total 3000 ml Balance -2745 ml Free Water 150 ml Tube Feeding 105 ml Hemodialysis UF 3000 ml Laboratory Tests 02/19/17 03:05: White Blood Count 10.8, Red Blood Count 2.81L, Hemoglobin 8.7L, Hematocrit 27.8L , Mean Corpuscular Volume 99, Mean Corpuscular Hemoglobin 30.8, Mean Corpuscular Hemoglobin Concent 31.2L, Red Cell Distribution Width 17.8H, Platelet Count 104L, Mean Platelet Volume 9.5, Neutrophils (%) (Auto) 69.9, Lymphocytes (%) (Auto) 16.1L, Monocytes (%) (Auto) 7.2, Eosinophils (%) (Auto) 6.1H, Basophils (%) (Auto) 0.8, Sodium Level 136, Potassium Level 3.0L, Chloride Level 100, Carbon Dioxide Level 31, Anion Gap 5, Blood Urea Nitrogen 27H, Creatinine 4.0H, Estimat Glomerular Filtration Rate , Glucose Level 194H, Calcium Level 9.5, Total Bilirubin 2.7H, Direct Bilirubin 1.8H, Aspartate Amino Transf (AST/SGOT) 33, Alanine Aminotransferase (ALT/SGPT) 7L, Alkaline Phosphatase 205H, Pro-B-Type Natriuretic Peptide [id number], Total Protein 6.5, Albumin 1.7L, Globulin 4.8, Albumin/Globulin Ratio 0.4L, Random Vancomycin Level 29.9 Height (Feet): 5 Height (Inches): 5.00 Weight (Pounds): 256 General Appearance: no apparent distress Cardiovascular: tachycardia Respiratory/Chest: decreased breath sounds Abdomen: distended Objective no other change ANDERS MOLINA Feb 19, 2017 17:59
--- NOTE | 2017-02-19 18:31 | General Progress Note ---
Assessment/Plan Assessment/Plan encephalopathy agitation Subjective Date patient seen: Feb 18, 2017 Allergies: Coded Allergies: PENICILLINS (Unverified Allergy, Unknown, 03/22/15) Subjective lethargic agitated this afternoon Objective Last 24 Hour Vital Signs Date Time Temp Pulse Resp B/P (MAP) Pulse Ox O2 Delivery O2 Flow Rate FiO2 02/19/17 17:23 111 18 40 02/19/17 16:00 97.9 112 20 116/53 99 Mechanical Ventilator 40 02/19/17 16:00 40 02/19/17 16:00 112 02/19/17 15:09 117 20 40 02/19/17 13:22 110 21 40 02/19/17 12:00 40 02/19/17 12:00 108 02/19/17 12:00 98.4 108 20 110/55 98 Mechanical Ventilator 40 02/19/17 11:30 Mechanical Ventilator 40 02/19/17 11:29 107 21 40 02/19/17 09:28 101 20 40 02/19/17 08:20 Mechanical Ventilator 40 02/19/17 08:00 40 02/19/17 08:00 98.8 99 20 111/47 99 Mechanical Ventilator 40 02/19/17 08:00 98 02/19/17 07:28 94 20 40 02/19/17 05:14 101 20 40 02/19/17 04:00 98.1 106 20 132/56 99 Mechanical Ventilator 40 02/19/17 04:00 103 02/19/17 04:00 40 02/19/17 03:19 105 20 40 02/19/17 00:38 99 20 40 02/19/17 00:00 40 02/19/17 00:00 97.3 100 20 142/64 100 Mechanical Ventilator 40 02/19/17 00:00 99 02/18/17 23:01 94 20 40 02/18/17 21:25 90 20 40 02/18/17 20:22 94 02/18/17 20:00 40 02/18/17 20:00 98.1 97 20 137/67 96 Mechanical Ventilator 40 02/18/17 19:27 89 20 40 Intake and Output 02/19/17 02/20/17 19:00 07:00 Intake Total 555 ml Output Total 3000 ml Balance -2445 ml Free Water 200 ml IV Total 110 ml Tube Feeding 245 ml Hemodialysis UF 3000 ml # Voids 1 Laboratory Tests 02/19/17 03:05: White Blood Count 10.8, Red Blood Count 2.81L, Hemoglobin 8.7L, Hematocrit 27.8L , Mean Corpuscular Volume 99, Mean Corpuscular Hemoglobin 30.8, Mean Corpuscular Hemoglobin Concent 31.2L, Red Cell Distribution Width 17.8H, Platelet Count 104L, Mean Platelet Volume 9.5, Neutrophils (%) (Auto) 69.9, Lymphocytes (%) (Auto) 16.1L, Monocytes (%) (Auto) 7.2, Eosinophils (%) (Auto) 6.1H, Basophils (%) (Auto) 0.8, Sodium Level 136, Potassium Level 3.0L, Chloride Level 100, Carbon Dioxide Level 31, Anion Gap 5, Blood Urea Nitrogen 27H, Creatinine 4.0H, Estimat Glomerular Filtration Rate , Glucose Level 194H, Calcium Level 9.5, Total Bilirubin 2.7H, Direct Bilirubin 1.8H, Aspartate Amino Transf (AST/SGOT) 33, Alanine Aminotransferase (ALT/SGPT) 7L, Alkaline Phosphatase 205H, Pro-B-Type Natriuretic Peptide [id number], Total Protein 6.5, Albumin 1.7L, Globulin 4.8, Albumin/Globulin Ratio 0.4L, Random Vancomycin Level 29.9 Height (Feet): 5 Height (Inches): 5.00 Weight (Pounds): 256 Oj Medel M.D. Feb 19, 2017 18:31
--- NOTE | 2017-02-19 18:32 | General Progress Note ---
Assessment/Plan Assessment/Plan encephalopathy agitation Subjective Date patient seen: Feb 19, 2017 Allergies: Coded Allergies: PENICILLINS (Unverified Allergy, Unknown, 03/22/15) Objective Last 24 Hour Vital Signs Date Time Temp Pulse Resp B/P (MAP) Pulse Ox O2 Delivery O2 Flow Rate FiO2 02/19/17 17:23 111 18 40 02/19/17 16:00 97.9 112 20 116/53 99 Mechanical Ventilator 40 02/19/17 16:00 40 02/19/17 16:00 112 02/19/17 15:09 117 20 40 02/19/17 13:22 110 21 40 02/19/17 12:00 40 02/19/17 12:00 108 02/19/17 12:00 98.4 108 20 110/55 98 Mechanical Ventilator 40 02/19/17 11:30 Mechanical Ventilator 40 02/19/17 11:29 107 21 40 02/19/17 09:28 101 20 40 02/19/17 08:20 Mechanical Ventilator 40 02/19/17 08:00 40 02/19/17 08:00 98.8 99 20 111/47 99 Mechanical Ventilator 40 02/19/17 08:00 98 02/19/17 07:28 94 20 40 02/19/17 05:14 101 20 40 02/19/17 04:00 98.1 106 20 132/56 99 Mechanical Ventilator 40 02/19/17 04:00 103 02/19/17 04:00 40 02/19/17 03:19 105 20 40 02/19/17 00:38 99 20 40 02/19/17 00:00 40 02/19/17 00:00 97.3 100 20 142/64 100 Mechanical Ventilator 40 02/19/17 00:00 99 02/18/17 23:01 94 20 40 02/18/17 21:25 90 20 40 02/18/17 20:22 94 02/18/17 20:00 40 02/18/17 20:00 98.1 97 20 137/67 96 Mechanical Ventilator 40 02/18/17 19:27 89 20 40 Intake and Output 02/19/17 02/20/17 19:00 07:00 Intake Total 555 ml Output Total 3000 ml Balance -2445 ml Free Water 200 ml IV Total 110 ml Tube Feeding 245 ml Hemodialysis UF 3000 ml # Voids 1 Laboratory Tests 02/19/17 03:05: White Blood Count 10.8, Red Blood Count 2.81L, Hemoglobin 8.7L, Hematocrit 27.8L , Mean Corpuscular Volume 99, Mean Corpuscular Hemoglobin 30.8, Mean Corpuscular Hemoglobin Concent 31.2L, Red Cell Distribution Width 17.8H, Platelet Count 104L, Mean Platelet Volume 9.5, Neutrophils (%) (Auto) 69.9, Lymphocytes (%) (Auto) 16.1L, Monocytes (%) (Auto) 7.2, Eosinophils (%) (Auto) 6.1H, Basophils (%) (Auto) 0.8, Sodium Level 136, Potassium Level 3.0L, Chloride Level 100, Carbon Dioxide Level 31, Anion Gap 5, Blood Urea Nitrogen 27H, Creatinine 4.0H, Estimat Glomerular Filtration Rate , Glucose Level 194H, Calcium Level 9.5, Total Bilirubin 2.7H, Direct Bilirubin 1.8H, Aspartate Amino Transf (AST/SGOT) 33, Alanine Aminotransferase (ALT/SGPT) 7L, Alkaline Phosphatase 205H, Pro-B-Type Natriuretic Peptide [id number], Total Protein 6.5, Albumin 1.7L, Globulin 4.8, Albumin/Globulin Ratio 0.4L, Random Vancomycin Level 29.9 Height (Feet): 5 Height (Inches): 5.00 Weight (Pounds): 256 Oj Medel M.D. Feb 19, 2017 18:32
[2017-02-19 20:00] VITALS: BP 129/65
[2017-02-19] MEDS: Dyna-Hex 2% Top Sol 2oz TOPIC SCH (20:24)
[2017-02-19] MEDS ORDERED: Tubing IV Secondary IV ONE ×2 (21:37→22:34)
--- NOTE | 2017-02-19 22:09 | General Progress Note ---
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 s/p trach Objective Last 24 Hour Vital Signs Date Time Temp Pulse Resp B/P (MAP) Pulse Ox O2 Delivery O2 Flow Rate FiO2 02/19/17 21:03 117 22 40 02/19/17 19:19 113 21 40 02/19/17 17:23 111 18 40 02/19/17 16:00 97.9 112 20 116/53 99 Mechanical Ventilator 40 02/19/17 16:00 40 02/19/17 16:00 112 02/19/17 15:09 117 20 40 02/19/17 13:22 110 21 40 02/19/17 12:00 40 02/19/17 12:00 108 02/19/17 12:00 98.4 108 20 110/55 98 Mechanical Ventilator 40 02/19/17 11:30 Mechanical Ventilator 40 02/19/17 11:29 107 21 40 02/19/17 09:28 101 20 40 02/19/17 08:20 Mechanical Ventilator 40 02/19/17 08:00 40 02/19/17 08:00 98.8 99 20 111/47 99 Mechanical Ventilator 40 02/19/17 08:00 98 02/19/17 07:28 94 20 40 02/19/17 05:14 101 20 40 02/19/17 04:00 98.1 106 20 132/56 99 Mechanical Ventilator 40 02/19/17 04:00 103 02/19/17 04:00 40 02/19/17 03:19 105 20 40 02/19/17 00:38 99 20 40 02/19/17 00:00 40 02/19/17 00:00 97.3 100 20 142/64 100 Mechanical Ventilator 40 02/19/17 00:00 99 02/18/17 23:01 94 20 40 Intake and Output 02/19/17 02/20/17 19:00 07:00 Intake Total 555 ml Output Total 3000 ml Balance -2445 ml Free Water 200 ml IV Total 110 ml Tube Feeding 245 ml Hemodialysis UF 3000 ml # Voids 1 Laboratory Tests 02/19/17 03:05: White Blood Count 10.8, Red Blood Count 2.81L, Hemoglobin 8.7L, Hematocrit 27.8L , Mean Corpuscular Volume 99, Mean Corpuscular Hemoglobin 30.8, Mean Corpuscular Hemoglobin Concent 31.2L, Red Cell Distribution Width 17.8H, Platelet Count 104L, Mean Platelet Volume 9.5, Neutrophils (%) (Auto) 69.9, Lymphocytes (%) (Auto) 16.1L, Monocytes (%) (Auto) 7.2, Eosinophils (%) (Auto) 6.1H, Basophils (%) (Auto) 0.8, Sodium Level 136, Potassium Level 3.0L, Chloride Level 100, Carbon Dioxide Level 31, Anion Gap 5, Blood Urea Nitrogen 27H, Creatinine 4.0H, Estimat Glomerular Filtration Rate , Glucose Level 194H, Calcium Level 9.5, Total Bilirubin 2.7H, Direct Bilirubin 1.8H, Aspartate Amino Transf (AST/SGOT) 33, Alanine Aminotransferase (ALT/SGPT) 7L, Alkaline Phosphatase 205H, Pro-B-Type Natriuretic Peptide 13196S, Total Protein 6.5, Albumin 1.7L, Globulin 4.8, Albumin/Globulin Ratio 0.4L, Random Vancomycin Level 29.9 Height (Feet): 5 Height (Inches): 5.00 Weight (Pounds): 256 Objective Obese WW NCAT, (+) trach supple CTA RRR soft ND NT, (+) PEG (+) edema confused KIERSTEN DAVIES Feb 19, 2017 22:09
--- NOTE | 2017-02-19 22:15 | General Progress Note ---
Assessment/Plan Assessment/Plan ASSESSMENT AND RECOMMENDATIONS 1.Thrombocytopenia 2/2 sepsis --> give plts if below 10k or if below 20k and febrile --> ID following, currently back on abx 2. Coagulopathy secondary to underlying liver cirrhosis ---> s/p multiple units ffp and vitamin k 3. Thrombocytopenia secondary to underlying splenomegaly. 4. Anemia 2/2 chronic disease --> Watch HH, transfuse if below 8. currently stable 5. Leukocytosis secondary to underlying infection. On abx per id service --> wbc count has now normalized 6. Sepsis 2/2 UTI 7. Altered mental status 8. RAMYA on CKD,on hemodialysis Subjective ROS Limited/Unobtainable: Yes Allergies: Coded Allergies: PENICILLINS (Unverified Allergy, Unknown, 03/22/15) Subjective on vent, NAD Objective Last 24 Hour Vital Signs Date Time Temp Pulse Resp B/P (MAP) Pulse Ox O2 Delivery O2 Flow Rate FiO2 02/19/17 21:03 117 22 40 02/19/17 19:19 113 21 40 02/19/17 17:23 111 18 40 02/19/17 16:00 97.9 112 20 116/53 99 Mechanical Ventilator 40 02/19/17 16:00 40 02/19/17 16:00 112 02/19/17 15:09 117 20 40 02/19/17 13:22 110 21 40 02/19/17 12:00 40 02/19/17 12:00 108 02/19/17 12:00 98.4 108 20 110/55 98 Mechanical Ventilator 40 02/19/17 11:30 Mechanical Ventilator 40 02/19/17 11:29 107 21 40 02/19/17 09:28 101 20 40 02/19/17 08:20 Mechanical Ventilator 40 02/19/17 08:00 40 02/19/17 08:00 98.8 99 20 111/47 99 Mechanical Ventilator 40 02/19/17 08:00 98 02/19/17 07:28 94 20 40 02/19/17 05:14 101 20 40 02/19/17 04:00 98.1 106 20 132/56 99 Mechanical Ventilator 40 02/19/17 04:00 103 02/19/17 04:00 40 02/19/17 03:19 105 20 40 02/19/17 00:38 99 20 40 02/19/17 00:00 40 02/19/17 00:00 97.3 100 20 142/64 100 Mechanical Ventilator 40 02/19/17 00:00 99 02/18/17 23:01 94 20 40 Intake and Output 02/19/17 02/20/17 19:00 07:00 Intake Total 555 ml Output Total 3000 ml Balance -2445 ml Free Water 200 ml IV Total 110 ml Tube Feeding 245 ml Hemodialysis UF 3000 ml # Voids 1 Laboratory Tests 02/19/17 03:05: White Blood Count 10.8, Red Blood Count 2.81L, Hemoglobin 8.7L, Hematocrit 27.8L , Mean Corpuscular Volume 99, Mean Corpuscular Hemoglobin 30.8, Mean Corpuscular Hemoglobin Concent 31.2L, Red Cell Distribution Width 17.8H, Platelet Count 104L, Mean Platelet Volume 9.5, Neutrophils (%) (Auto) 69.9, Lymphocytes (%) (Auto) 16.1L, Monocytes (%) (Auto) 7.2, Eosinophils (%) (Auto) 6.1H, Basophils (%) (Auto) 0.8, Sodium Level 136, Potassium Level 3.0L, Chloride Level 100, Carbon Dioxide Level 31, Anion Gap 5, Blood Urea Nitrogen 27H, Creatinine 4.0H, Estimat Glomerular Filtration Rate , Glucose Level 194H, Calcium Level 9.5, Total Bilirubin 2.7H, Direct Bilirubin 1.8H, Aspartate Amino Transf (AST/SGOT) 33, Alanine Aminotransferase (ALT/SGPT) 7L, Alkaline Phosphatase 205H, Pro-B-Type Natriuretic Peptide 15948E, Total Protein 6.5, Albumin 1.7L, Globulin 4.8, Albumin/Globulin Ratio 0.4L, Random Vancomycin Level 29.9 Height (Feet): 5 Height (Inches): 5.00 Weight (Pounds): 256 General Appearance: no apparent distress EENT: normal ENT inspection Neck: normal alignment Cardiovascular: normal peripheral pulses Abdomen: soft, no organomegaly Edema: mild edema Neurologic: unresponsive ROCIO HOFFMANN Feb 19, 2017 22:15
[2017-02-19] MEDS ORDERED: NS 275ml ONE (22:34)
--- NOTE | 2017-02-21 22:30 | Discharge Summary 2 SIG ---
DATE OF ADMISSION: 01/16/2017 DATE OF DISCHARGE: 02/19/2017 CONSULTANTS: 1. Elena Melendez M.D. 2. Efrain Elaine M.D. 3. Oj Medel M.D. 4. Yokasta Torres M.D. 5. Nabil Pat M.D. 6. Pradeep Alberto M.D. 7. Galdino Wallace M.D. 8. Nereyda Monroe M.D. BRIEF HOSPITAL COURSE: The patient is a 77-year-old, a resident of [facility]. According to staff, had become increasingly confused over the past several days. She was transferred to [facility] for evaluation where she was found to have urinary tract infection and was admitted for acute encephalopathy, urine infection and CHF. She was followed by Infectious Disease specialist and was started on antibiotics pending culture results. She was given cefepime for pseudomonas, minocycline for MDR Acinetobacter and Amikacin. Ammonia level was high and was given lactulose and xifaxan for hepatic encephalopathy. BNP was markedly elevated and was initially given Lasix, however, was discontinued due to hypernatremia. Echocardiogram done was EF 60%. On 01/21/17, she was transferred to ICU for increased lethargy and shortness of breath. PCO2 was 82%. She was eventually intubated and was started on IV pressors. She continued to have leukocytosis. Cefepime and amikacin was discontinued and was given ertapenem for ESBL E. coli sputum. She was finally been weaned off pressors and was given midodrine. She had worsening of renal failure and needed dialysis. She developed worsening metabolic acidosis due to renal failure. On 01/28/17 she was started on hemodialysis. She self-extubated on 02/04/17 but had to be reintubated and hour later. She underwent EGD with PEG tube placement by Dr Torres on 02/12/17 and tracheostomy placement by Dr Alberto on 02/12/17. She continued to be septic, and was given inhaled colistin for MDR Acinetobacter pneumonia and was given extended treatment of ertapenem for possible aspiration pneumonia. She had episodes of acute anemia and underwent blood transfusion. Platelet count was low, thrombocytopenia was assessed to be sepsis and splenomegaly. She was given FFP. Surveillance blood culture was positive for Staph and consideration for removal of HD catheter was made. Patient was eventually discharged to LT[facility]. FINAL DIAGNOSIS: 1. Sepsis 2. Osman-care associated pneumonia secondary to ESBL E. coli. 3. Probable MDR urinary tract infection. 4.. Acute hypercapnic respiratory failure requiring intubation and tracheostomy placement. 5. Acute on chronic renal failure. 6. Dysphagia s/p PEG tube placement. 7. Hepatic encephalopathy. 8. Agitation. 9. Acute on chronic diastolic heart failure. 10. DURANT. 11. Uncontrolled diabetes. 12. Hypertension. 13. Hypotension s/p shock. 14. Obstructive sleep apnea. 15. Hypernatremia. 16. Morbid obesity. 17. Bradycardia. 18. Hyperlipidemia. 19. Thrombocytopenia secondary to sepsis and splenomegaly. 20. Coagulopathy secondary to liver cirrhosis. DISPOSITION: Patient was transferred to [facility]. Rl Tee M.D. I have been assigned to dictate discharge summary on this account and I was not involved in the patient's management. Teresa Canchola N.P. DR: Philippe JOB#: [id number] CC: HAL
== END 2017-02-19 22:35 | DRG 4 ==
LOC: EDBD 09:56 → EMR 10:30 → 2E 10:40 → EDBEDREQ 11:22 → 2E 16:05 → 4E 01-18 13:45 → ICU 01-21 11:32 → 2W 02-18 17:30
PROC: 0BH17EZ Insertion of Endotracheal Airway into Trachea, Via Natural or Artificial Opening (ICD-10-PCS; principal; 2017-01-21)
PROC: 5A1955Z Respiratory Ventilation, Greater than 96 Consecutive Hours (ICD-10-PCS; principal; 2017-01-21)
PROC: 0DH63UZ Insertion of Feeding Device into Stomach, Percutaneous Approach (ICD-10-PCS; 2017-02-12 11:31)
PROC: 0B110F4 Bypass Trachea to Cutaneous with Tracheostomy Device, Open Approach (ICD-10-PCS; 2017-02-17)
DX: A41.9 Sepsis, unspecified organism (principal); G93.40 Encephalopathy, unspecified; N17.9 Acute kidney failure, unspecified; L89.152 Pressure ulcer of sacral region, stage 2; I13.0 Hypertensive heart and chronic kidney disease with heart failure and stage 1 through stage 4 chronic kidney disease, or unspecified chronic kidney disease; E87.0 Hyperosmolality and hypernatremia; R13.10 Dysphagia, unspecified; I50.9 Heart failure, unspecified; E11.22 Type 2 diabetes mellitus with diabetic chronic kidney disease; D69.6 Thrombocytopenia, unspecified; J96.91 Respiratory failure, unspecified with hypoxia; N39.0 Urinary tract infection, site not specified; K74.60 Unspecified cirrhosis of liver; Z66 Do not resuscitate; N18.9 Chronic kidney disease, unspecified; Z88.0 Allergy status to penicillin; E86.0 Dehydration; K21.9 Gastro-esophageal reflux disease without esophagitis; G47.33 Obstructive sleep apnea (adult) (pediatric); E78.00 Pure hypercholesterolemia, unspecified; K76.0 Fatty (change of) liver, not elsewhere classified
CPT/HCPCS: 36415; 36569; 36600; 71010; 76705; 76775; 76937; 80048; 80053; 80150; 80202; 81001; 81003; 82140; 82247; 82248; 82270; 82550; 82553; 82607; 82728; 82746; 82803; 82962; 82977; 83010; 83090; 83540; 83550; 83605; 83615; 83735; 83880; 83921; 84100; 84133; 84300; 84484; 84550; 85007; 85025; 85044; 85060; 85384; 85610; 85651; 85730; 86140; 86635; 86703; 86705; 86709; 86710; 86803; 86850; 86900; 86901; 86904; 86920; 86927; 87040; 87070; 87086; 87181; 87205; 87324; 87340; 87449; 89050; 93005; 93306; 94002; 94003; 94150; 94640; 94664; 94760; 99285; C9399; J0712; J1815; J2405; J2765; J3490; S0077